=== PATIENT | female | born 1960 | race Caucasian/White ===

== ENCOUNTER → 2017-10-31 12:07 | Outpatient (CLI) | payer MEDICARE, SELFPAY | PROVIDERS: Family Provider Family Medicine; PCP Family Medicine; Visit Provider Family Medicine | DX: Z12.31 Encounter for screening mammogram for malignant neoplasm of breast (principal) | CPT/HCPCS: 77063; 77067 ==

== ENCOUNTER → 2018-08-20 | Outpatient (CLI) | payer OTHER, SELFPAY ==
[2018-08-20 16:47] LABS: Anion Gap 7 (5-15); BUN 15 mg/dL (7-18); BUN/Creat Ratio 19.4 RATIO (10-20); Calcium,Total 9.1 mg/dL (8.5-10.1); Chloride 103 mmol/L (98-107); Creatinine, Serum 0.77 mg/dL (0.55-1.02); EST Glomerular Filtration Rate 81 mL/min (>60); Est Glom Filt Rate - Afr Amer 98 mL/min (>60); Glucose 88 mg/dL (74-106); Magnesium 2.7 mg/dL (1.6-2.6); Sodium Level 141 mmol/L (136-145); Thyroid Stim Hormone (TSH) 1.13 uIU/mL (0.358-3.74)
[2018-08-27 16:39] LABS: HPV Reflexed? NOT INDICATED
== END | disposition home or self-care (01) ==
PROVIDERS: Family Provider Family Medicine; PCP Family Medicine; Referring Provider Family Medicine; Visit Provider Family Medicine
DX: R00.2 Palpitations (principal); Z12.4 Encounter for screening for malignant neoplasm of cervix
CPT/HCPCS: 36415; 80048; 83735; 84443; 88175; G0145

== ENCOUNTER → 2018-09-04 | Outpatient (CLI) | payer OTHER, SELFPAY ==
--- NOTE | 2018-09-04 15:08 | BD_ITS ---
STUDY: DUAL ENERGY X-RAY ABSORPTIOMETRY / DXA REASON FOR EXAM: Female, 58 years old. The patient is postmenopausal. Loss of height. TECHNIQUE: Bone Mineral Density (BMD) measurements of lumbar spine and bilateral hips were obtained. COMPARISON: None. FINDINGS: Lumbar Spine (L1-L4): g/cm2 (1.268) / T-score (0.8) / Z-score (2.0) Findings are suggestive of normal bone density with a low fracture risk. Left Femur Total: g/cm2 (0.938) / T-score (-0.6) / Z-score (0.3) Left Femoral Neck: g/cm2 (0.927) / T-score (-0.8) / Z-score (0.4) Right Femur Total: g/cm2 (0.937) / T-score (-0.6) / Z-score (0.3) Right Femoral Neck: g/cm2 (0.921) / T-score (-0.8) / Z-score (0.4) BD/Dexa Bone Density Study IMPRESSION: The patient is considered normal as outlined below according to World [employer] Organization (WHO) criteria with a low fracture risk. Reference Information: The T-score is the number of standard deviations above or below the standard which is normal for young adults at their peak bone mineral density. The World Health Organization (WHO) interprets the T-scores as follows: Above -1 Normal bone density Between -1 and -2.5 Osteopenia Equal to / or below -2.5 Osteoporosis As a practical clinical guideline, osteopenia may be graded as follows: Mild -1 through -1.5 Moderate -1.6 through -2.0 Severe -2.1 through -2.4 The Z-score is the number of standard deviations above or below age-matched controls. A Z-score of less than -1.5 would be considered abnormal. References: 1. NIH Osteoporosis and Related Bone Diseases http://www.osteo.org 2. International Society for Clinical Densitometry http://www.iscd.org 3. National Osteoporosis Foundation http://www.nof.org Electronically Signed: Michel Adler, at 9:28 EDT , Service support ,
== END | disposition home or self-care (01) ==
LOC: OPBD 15:04
PROVIDERS: Family Provider Family Medicine; PCP Family Medicine; Referring Provider Family Medicine; Visit Provider Family Medicine
DX: E28.319 Asymptomatic premature menopause (principal)
CPT/HCPCS: 77080

== ENCOUNTER → 2018-11-05 14:21 | Outpatient (CLI) | payer OTHER, SELFPAY ==
--- NOTE | 2018-11-05 14:26 | BI_ITS ---
MAMMOGRAPHY - BILATERAL SCREENING REASON FOR EXAM: Female, 58 years old. Routine annual screening examination. PERTINENT HISTORY: Personal history of breast cancer. Prior right lumpectomy with chemotherapy and radiation therapy. Bilateral breast implants. TECHNIQUE: Digital bilateral breast sandrine (3D mammographic acquisition) in the CC and MLO projections. 2-D mediolateral oblique (MLO) and craniocaudad (CC) views of both breasts were obtained. CAD: Full Field Digital Mammography with Computer Added Detection was performed. COMPARISON: Comparison is made with prior examination dated October 31, 2017 and September 26, 2016. FINDINGS: Breast Composition: There are scattered areas of fibroglandular density. There are no dominant masses or suspicious calcifications. Stable appearance of the bilateral breast implants. No other significant abnormalities are identified. There has been no significant change since the prior study. BI/SCREEN MAMM (CAD) W/SANDRINE BILAT IMPRESSION: Stable bilateral screening mammogram. Yearly follow-up mammogram recommended. (A) ASSESSMENT CATEGORY: BIRADS Category 2: Benign. A letter regarding these results will be sent to the patient by the facility within 30 days. Approximately 10% of breast cancers are not detected by mammography. A normal mammogram should not delay biopsy of a clinically suspicious abnormality. [id number] Electronically Signed: Michel Adler, at 15:27 EDT , Service support ,
== END ==
PROVIDERS: Family Provider Family Medicine; PCP Family Medicine; Referring Provider Family Medicine; Visit Provider Family Medicine
DX: Z12.31 Encounter for screening mammogram for malignant neoplasm of breast (principal)
CPT/HCPCS: 77063; 77067

== ENCOUNTER → 2019-04-02 16:33 | Outpatient (CLI) | payer OTHER, SELFPAY ==
[2019-04-02 17:29] LABS: Absolute Lymphocyte Count 0.97 X10^3/uL (0.83-4.51); Absolute Neutrophil Count 2.7 X10^3/uL (2.0-7.7); Basophil# 0.05 X10^3/uL; Basophil% 1.1 % (0-1); Eosinophil# 0.28 X10^3/uL; Eosinophils% 6.2 % (0-5); Hematocrit 40.8 % (37-47); Hemoglobin 13.5 g/dL (12.0-15.0); Lymphocyte # 0.97 X10^3/ul (4.0); Lymphocyte % 21.4 % (19-41); Mean Corp Hgb Conc 33.1 g/dL (32-36); Mean Corpuscular Hgb 29.7 pg (27.0-32.0); Mean Corpuscular Volume 89.9 fL (81-99); Mean Platelet Vol. 9.4 fl (6.2-12.0); Monocyte# 0.56 X10^3/uL; Monocyte% 12.3 % (0-10); NRBC Flagged by Analyzer 0 % (0-5); Neutrophil # 2.66 X10^3/uL (2.7-7.7); Neutrophil % 58.6 % (47-70); Platelet Count 266 K/mm3 (150-450); RBC Distribution Width CV 13.6 % (11.6-14.6); RBC Distribution Width SD 44.7 fl (35.1-43.9); Red Blood Count 4.54 M/mm3 (4.2-5.4); White Blood Count 4.5 K/mm3 (4.4-11.0)
[2019-04-02 18:04] LABS: ALB/GLOB Ratio 1.1 RATIO (0.9-2.4); AST(SGOT) 20 U/L (15-37); Alanine Aminotransfer ALT/SGPT 28 U/L (13-56); Albumin, Serum 3.8 g/dL (3.2-5.0); Alkaline Phosphatase 79 U/L (45-117); Anion Gap 4 (5-15); BUN 13 mg/dL (7-18); BUN/Creat Ratio 15.1 RATIO (10-20); CRP 3.29 mg/L (0.0-3.0); Chloride 104 mmol/L (98-107); Creatinine, Serum 0.86 mg/dL (0.55-1.02); EST Glomerular Filtration Rate 72 mL/min (>60); Est Glom Filt Rate - Afr Amer 87 mL/min (>60); Globulin 3.5 g/dL (2.2-4.2); Glucose 103 mg/dL (74-106); Potassium 3.8 mmol/L (3.5-5.1); Protein, Total 7.3 g/dL (6.4-8.2); Sodium Level 139 mmol/L (136-145); Thyroid Stim Hormone (TSH) 0.59 uIU/mL (0.358-3.74)
[2019-04-05 12:06] LABS: Complement C3 108 mg/dL (82-167)
[2019-04-07 10:35] LABS: ANTINUCLEAR ANTIBODIES DIRECT Negative (Negative)
[2019-04-07 10:49] LABS: Immunoglobulin E 27 IU/mL (6-495)
[2019-04-09 20:07] LABS: Alternaria alternata <0.10 kU/L (Class 0); Aspergillus fumigatus <0.10 kU/L (Class 0); Bahia Grass 0.41 kU/L (Class I); Bermuda Grass 0.24 kU/L (Class 0/I); Bluegrass, Kentucky 2.47 kU/L (Class III); Cat Hair/Dander, Standard 6.03 kU/L (Class IV); Cedar, Mountain <0.10 kU/L (Class 0); Cladosporium herbarum <0.10 kU/L (Class 0); Cockroach, American <0.10 kU/L (Class 0); D farinae Mite 0.77 kU/L (Class II); Dog Epithelia 0.23 kU/L (Class 0/I); Elm, American White <0.10 kU/L (Class 0); Hazelnut Tree <0.10 kU/L (Class 0); Hickory, White <0.10 kU/L (Class 0); Johnson Grass 0.22 kU/L (Class 0/I); Maple/Box Elder <0.10 kU/L (Class 0); Mucor racemosus <0.10 kU/L (Class 0); Mugwort <0.10 kU/L (Class 0); Mulberry, White <0.10 kU/L (Class 0); Oak, White <0.10 kU/L (Class 0); Penicillium chrysogen <0.10 kU/L (Class 0); Pigweed, Rough <0.10 kU/L (Class 0); Plantain, English <0.10 kU/L (Class 0); Ragweed, Short/Common <0.10 kU/L (Class 0); Sheep Sorrel(Dock) <0.10 kU/L (Class 0); Stemphylium herbarum <0.10 kU/L (Class 0); Sweet Gum <0.10 kU/L (Class 0); Sycamore, American <0.10 kU/L (Class 0)
[2019-04-10 09:40] LABS: Nettle <0.10 kU/L (Class 0)
== END ==
PROVIDERS: Family Provider Family Medicine; PCP Family Medicine; Referring Provider Family Medicine; Visit Provider Family Medicine
DX: R21 Rash and other nonspecific skin eruption (principal)
CPT/HCPCS: 36415; 80053; 82785; 84443; 85025; 86003; 86038; 86140; 86160

== ENCOUNTER → 2019-04-06 17:37 | Outpatient (CLI) | payer OTHER, SELFPAY ==
[2019-04-08 20:56] LABS: HPV Reflexed? NOT INDICATED
== END ==
PROVIDERS: Family Provider Family Medicine; PCP Family Medicine; Visit Provider Family Medicine
DX: N93.9 Abnormal uterine and vaginal bleeding, unspecified (principal)
CPT/HCPCS: 88175; G0145

== ENCOUNTER → 2019-04-15 13:43 | Outpatient (CLI) | payer OTHER, SELFPAY ==
--- NOTE | 2019-04-15 13:54 | US_ITS ---
STUDY: ULTRASOUND TRANSVAGINAL CLINICAL: Female, 58 years old. POST MENOPAUSAL BLEEDING TWICE IN FEBRUARY -- ON ESTROGEN CREAN -- HX OF BREAST CA TECHNIQUE: Transvaginal COMPARISON: None. FINDINGS: Normal uterine size measuring 6.8 x 3.1 x 3.8 cm in maximal craniocaudal dimension. There are no myometrial masses. Normal endometrial thickness measuring 9 mm. There are no endometrial masses, but there is fluid in the endometrial cavity. The cervix is open and fluid-filled. Normal right ovary, measuring 2.4 x 1.7 x 1.7 cm. There are multiple follicles without a dominant cyst. Normal left ovary, measuring 2.0 x 2.4 x 1.4 cm. There are multiple follicles without a dominant cyst. There is no free fluid in the pelvis. Polycystic ovary disease: No. US/Pelvic (Non ) IMPRESSION: Fluid-filled endometrial cavity and endocervical canal. Correlation with hysteroscopy would be useful to exclude endometrial mass. Electronically Signed: Harman Brady MD at 9:09 EST Tel , Service support ,
--- NOTE | 2019-04-15 13:55 | US_ITS ---
STUDY: ULTRASOUND TRANSVAGINAL CLINICAL: Female, 58 years old. POST MENOPAUSAL BLEEDING TWICE IN FEBRUARY -- ON ESTROGEN CREAN -- HX OF BREAST CA TECHNIQUE: Transvaginal COMPARISON: None. FINDINGS: Normal uterine size measuring 6.8 x 3.1 x 3.8 cm in maximal craniocaudal dimension. There are no myometrial masses. Normal endometrial thickness measuring 9 mm. There are no endometrial masses, but there is fluid in the endometrial cavity. The cervix is open and fluid-filled. Normal right ovary, measuring 2.4 x 1.7 x 1.7 cm. There are multiple follicles without a dominant cyst. Normal left ovary, measuring 2.0 x 2.4 x 1.4 cm. There are multiple follicles without a dominant cyst. There is no free fluid in the pelvis. Polycystic ovary disease: No. US/Transvaginal Non- IMPRESSION: Fluid-filled endometrial cavity and endocervical canal. Correlation with hysteroscopy would be useful to exclude endometrial mass. Electronically Signed: Harman Brady MD at 9:09 EST Tel , Service support ,
== END ==
PROVIDERS: Family Provider Family Medicine; PCP Family Medicine; Referring Provider Family Medicine; Visit Provider Family Medicine
DX: N93.9 Abnormal uterine and vaginal bleeding, unspecified (principal)
CPT/HCPCS: 76830; 76856

== ENCOUNTER → 2019-11-04 | Outpatient (CLI) | payer OTHER, SELFPAY ==
[2019-11-04 15:28] LABS: Absolute Lymphocyte Count 1.24 X10^3/uL (0.83-4.51); Absolute Neutrophil Count 4.3 X10^3/uL (2.0-7.7); Basophil# 0.02 X10^3/uL; Basophil% 0.3 % (0-1); Eosinophil# 0.04 X10^3/uL; Eosinophils% 0.6 % (0-5); Hemoglobin 12.7 g/dL (12.0-15.0); Lymphocyte # 1.24 X10^3/ul (4.0); Lymphocyte % 19.3 % (19-41); Mean Corp Hgb Conc 32.6 g/dL (32-36); Mean Corpuscular Hgb 29.4 pg (27.0-32.0); Mean Corpuscular Volume 90.3 fL (81-99); Mean Platelet Vol. 9.9 fl (6.2-12.0); Monocyte# 0.84 X10^3/uL; Monocyte% 13.1 % (0-10); NRBC Flagged by Analyzer 0 % (0-5); Neutrophil # 4.27 X10^3/uL (2.7-7.7); Neutrophil % 66.4 % (47-70); Platelet Count 292 K/mm3 (150-450); RBC Distribution Width SD 43.2 fl (35.1-43.9); Red Blood Count 4.32 M/mm3 (4.2-5.4); White Blood Count 6.4 K/mm3 (4.4-11.0)
[2019-11-04 15:47] LABS: ALB/GLOB Ratio 1.1 RATIO (0.9-2.4); AST(SGOT) 13 U/L (15-37); Alanine Aminotransfer ALT/SGPT 20 U/L (13-56); Albumin, Serum 3.9 g/dL (3.2-5.0); Alkaline Phosphatase 67 U/L (45-117); Anion Gap 6 (5-15); BUN 12 mg/dL (7-18); Chloride 102 mmol/L (98-107); Creatinine, Serum 0.75 mg/dL (0.55-1.02); EST Glomerular Filtration Rate 84 mL/min (>60); Est Glom Filt Rate - Afr Amer 102 mL/min (>60); Globulin 3.4 g/dL (2.2-4.2); Glucose 82 mg/dL (74-106); Lipase 241 U/L (73-393); Potassium 3.8 mmol/L (3.5-5.1); Protein, Total 7.3 g/dL (6.4-8.2); Sodium Level 139 mmol/L (136-145)
== END | disposition home or self-care (01) ==
PROVIDERS: PCP Family Medicine; Referring Provider Family Medicine; Visit Provider Family Medicine
DX: R19.7 Diarrhea, unspecified (principal)
CPT/HCPCS: 36415; 80053; 83690; 85025

== ENCOUNTER → 2019-11-05 | Outpatient (CLI) | payer OTHER, SELFPAY ==
[2019-11-12 20:32] LABS: Fats, Neutral Normal (.); Fats, Total Normal (.)
== END | disposition home or self-care (01) ==
PROVIDERS: PCP Family Medicine; Referring Provider Family Medicine; Visit Provider Family Medicine
DX: R19.7 Diarrhea, unspecified (principal)
CPT/HCPCS: 82705

== ENCOUNTER → 2019-11-17 | Outpatient (CLI) | payer OTHER, SELFPAY ==
--- NOTE | 2019-11-17 07:49 | US_ITS ---
STUDY: ABDOMINAL ULTRASOUND - RIGHT UPPER QUADRANT REASON FOR VISIT: Female, 59 years old RUQ PAIN -- LOOSE STOOLS TECHNIQUE: Ultrasound evaluation of the right upper quadrant was performed with real-time and static medina-scale imaging. TECHNICAL QUALITY: Adequate. COMPARISON: None. FINDINGS: Liver: The liver measures 10.6 cm. There is normal echogenicity of the liver. The bile ducts are within normal limits. There is hepatic color flow. The direction of portal flow is hepatopetal. There is no demonstrated mass lesion. Gallbladder: Normal distended gallbladder. The gallbladder wall is slightly thickened measures 3.5 mm. There is a negative sonographic Callahan''s sign. There is no pericholecystic fluid. There are no gallstones. Multiple small gallbladder polyps are seen. The largest measures 5 mm. Adenomyomatosis should be ruled out. Common Bile Duct (C.B.D.): The common bile duct measures 1.9 mm. Pancreas: Normal size of the head, body and tail of the pancreas. There is normal echogenicity of the pancreas. There is no demonstrated pancreatic mass or cyst. Right Kidney: Normal size of the right kidney. The right kidney measures 10.1 cm x 5 cm x 3.9 cm. Normal renal cortex. The right cortex measures 1.3 cm. There is no demonstrated renal mass or cyst. There is no right hydronephrosis. US/Abdomen Limited IMPRESSION: Multiple small gallbladder polyps. Mildly thickened gallbladder wall. Electronically Signed: Michel Adler, at 8:33 EDT , Service support ,
== END | disposition home or self-care (01) ==
PROVIDERS: PCP Family Medicine; Referring Provider Family Medicine; Visit Provider Family Medicine
DX: R10.811 Right upper quadrant abdominal tenderness (principal)
CPT/HCPCS: 76705

== ENCOUNTER → 2019-11-20 | Outpatient (CLI) | payer OTHER, SELFPAY ==
--- NOTE | 2019-11-20 14:50 | BI_ITS ---
MAMMOGRAPHY - BILATERAL SCREENING REASON FOR EXAM: Female, 59 years old. Routine annual screening examination. PERTINENT HISTORY: Personal history of breast cancer. Prior right lumpectomy with chemotherapy and radiation therapy. Bilateral breast implants. TECHNIQUE: Digital bilateral breast sandrine (3D mammographic acquisition) in the CC and MLO projections. 2-D mediolateral oblique (MLO) and craniocaudad (CC) views of both breasts were obtained. CAD: Full Field Digital Mammography with Computer Added Detection was performed. COMPARISON: Comparison is made with prior examination dated 11/05/2018 and 10/31/2017. FINDINGS: Breast Composition: There are scattered areas of fibroglandular density. There are no dominant masses or suspicious calcifications. Stable appearance of the bilateral breast implants. No other significant abnormalities are identified. There has been no significant change since the prior study. BI/SCREEN MAMM (CAD) W/SANDRINE BILAT IMPRESSION: Stable bilateral screening mammogram. Yearly follow-up mammogram recommended. (A) ASSESSMENT CATEGORY: BIRADS Category 2: Benign. A letter regarding these results will be sent to the patient by the facility within 30 days. Approximately 10% of breast cancers are not detected by mammography. A normal mammogram should not delay biopsy of a clinically suspicious abnormality. [id number] Electronically Signed: Michel Adler, at 8:08 EDT , Service support ,
== END | disposition home or self-care (01) ==
LOC: OPBI 14:29
PROVIDERS: PCP Family Medicine; Referring Provider Family Medicine; Visit Provider Family Medicine
DX: Z12.31 Encounter for screening mammogram for malignant neoplasm of breast (principal)
CPT/HCPCS: 77063; 77067

== ENCOUNTER 2019-11-27 00:57 | Observation (INO) | payer OTHER, SELFPAY ==
[2019-11-26 13:34] VITALS: BMI 19.7
[2019-11-27] VITALS (15 sets, daily range): BP systolic 91–111; BP diastolic 40–71; PULSE 71–91; RESP 15–19; TEMP 36.6–37.4; O2SAT 96–99; BMI 22.1; BMI 20.1
--- NOTE | 2019-11-27 01:05 | CT_ITS ---
HISTORY: ABDOMEN PAIN,DIARRHEA AND NAUSEAHX:BREAST CANCER WITH LUMPECTOMY,GERD,GALLBLADDER POLYPS SEEN ON US,TUBAL LIGATION TECHNIQUE: Helically acquired images were obtained of the abdomen and pelvis following the intravenous administration of 100 ML of Isovue-370. Iodinated contrast. 2D reformats. No oral contrast was administered. A radiation dose optimization technique was used for this scan. COMPARISON: Ultrasound of the abdomen from November 17, 2019 FINDINGS: # of images incl. paperwork: 359 LUNG BASES: Breast prostheses. Lung bases are clear. The heart is not enlarged. CT abdomen: Levoscoliosis. Some degenerative disc disease greatest at the L2-L3, and L3-L4 levels. Some fusion across the L5-S1 level. The gallbladder remains. Enhancing polyps on the wall of the gallbladder, also seen on the ultrasound are again demonstrated. The liver is normal The stomach is distended with liquid and gas. The spleen, pancreas, and adrenal glands, are normal. The kidneys are normal. The aorta is normal. CT pelvis: Small volume of abdominal and pelvic ascites is present. The appendix is not identified. The uterus is atrophic. Tubal ligation clips are present bilaterally. The bladder is normal. Abnormal liquid and some gas is present within the rectum and sigmoid colon. There are 2 areas of focal stenosis within the luminal contour of the sigmoid colon one directly adjacent to the left tubal ligation clips, and the other at the junction between the descending colon and the sigmoid colon. I believe these are normal contractions within the colon, and not neoplasia. The fluid continues throughout the lumen of the colon without bowel wall thickening or pathological distention to the colon. There is, however, bowel wall thickening throughout the entire small bowel beginning within the jejunum and continuing to the terminal ileum CT/Abdomen/Pelvis WITH Contrast IMPRESSION: Severe enteritis with a diarrheal state. Individualized dose optimization techniques were used for this CT. at 0406 Reported and signed by: Ethan Townsend MD Electronically Signed: Ethan Townsend MD at 4:05 EDT Tel , Service support ,
--- NOTE | 2019-11-27 01:05 | EKG12_ITS ---
Test Reason : ABD PAIN Blood Pressure : / mmHG Vent. Rate : 088 BPM Atrial Rate : 088 BPM P-R Int : 152 ms QRS Dur : 080 ms QT Int : 378 ms P-R-T Axes : 083 081 074 degrees QTc Int : 457 ms Normal sinus rhythm Possible Biatrial enlargement Nonspecific ST abnormality Abnormal ECG Confirmed by TAMY ANAND, HELLEN ([id number]), film and video editor TAVO PEREZ ([id number]) on 12/02/2019 10:18:44 AM Referred By: Confirmed By:HELLEN MORELOS MD
[2019-11-27 01:26] LABS: Absolute Neutrophil Count 2.8 X10^3/uL (2.0-7.7); Basophil# 0.01 X10^3/uL; Basophil% 0.2 % (0-1); Eosinophil# 0.19 X10^3/uL; Eosinophils% 3.8 % (0-5); Hematocrit 50.2 % (37-47); Hemoglobin 16.9 g/dL (12.0-15.0); Lymphocyte % 37.6 % (19-41); Mean Corp Hgb Conc 33.7 g/dL (32-36); Mean Corpuscular Hgb 29.4 pg (27.0-32.0); Mean Corpuscular Volume 87.3 fL (81-99); Mean Platelet Vol. 9.2 fl (6.2-12.0); Monocyte# 0.17 X10^3/uL; Monocyte% 3.4 % (0-10); NRBC Flagged by Analyzer 0 % (0-5); Neutrophil # 2.76 X10^3/uL (2.7-7.7); Neutrophil % 54.6 % (47-70); Platelet Count 254 K/mm3 (150-450); RBC Distribution Width CV 13.1 % (11.6-14.6); RBC Distribution Width SD 41.5 fl (35.1-43.9); Red Blood Count 5.75 M/mm3 (4.2-5.4); White Blood Count 5.1 K/mm3 (4.4-11.0)
[2019-11-27] MEDS: 0.9% Normal Saline 1,000 ML 1000 ML IV (01:44)
[2019-11-27] MEDS: Ondansetron 4 MG/2 ML Vial IV (01:44)
[2019-11-27 01:45] LABS: ALB/GLOB Ratio 1.1 RATIO (0.9-2.4); AST(SGOT) 19 U/L (15-37); Alanine Aminotransfer ALT/SGPT 16 U/L (13-56); Albumin, Serum 3.4 g/dL (3.2-5.0); Alkaline Phosphatase 86 U/L (45-117); Anion Gap 8 (5-15); BUN 14 mg/dL (7-18); BUN/Creat Ratio 18.2 RATIO (10-20); Calcium,Total 8.8 mg/dL (8.5-10.1); Chloride 111 mmol/L (98-107); Creatinine, Serum 0.77 mg/dL (0.55-1.02); EST Glomerular Filtration Rate 81 mL/min (>60); Est Glom Filt Rate - Afr Amer 98 mL/min (>60); Estimated Creatinine Clearance 64.27 ml/min; Globulin 3.1 g/dL (2.2-4.2); Glucose 159 mg/dL (74-106); Protein, Total 6.5 g/dL (6.4-8.2); Sodium Level 141 mmol/L (136-145)
[2019-11-27 01:51] LABS: Lactic Acid 1.5 mmol/L (0.4-1.9)
--- NOTE | 2019-11-27 01:52 | ED.DCSUM_ITS ---
- ER Visit Summary Date of Service: 11/27/19 Chief Complaint: Abdominal pain History of Present Illness: The patient is a 59 F presenting with abdominal pain and diarrhea. Patient states this started 1 week ago. She complains of diffuse abdominal pain. She has had diarrhea. States she is having diarrhea up to 12 times per day. She denies blood in her stool. She has nausea with no vomiting. She saw her primary care physician and had an outpatient gallbladder ultrasound ordered. This showed gallbladder polyps. She followed up with Dr. Mccann today. She states he told her that he did not feel it was her gallbladder and she may have colitis or diverticulitis. She states she continued to have diarrhea throughout the day. Tonight she passed out while on the toilet. She denies any recent antibiotic. No recent travel. No history of bad food exposure. Denies other complaints. Physical Examination: Vitals are stable. Patient is afebrile. Alert no acute distress. HEENT exam is unremarkable. Neck is supple. Lungs are clear and equal bilaterally. Heart is regular rate and rhythm. Abdomen is soft diffuse tenderness with no guarding or rebound. Extremities are unremarkable. Skin is warm and dry. No focal neurologic deficit. Remainder of exam is unremarkable. Emergency Department Course and Treatment: Patient was given IV fluids, Zofran. CBC, chemistries unremarkable other than potassium 3.0, glucose 159. Urinalysis unremarkable. Troponin is negative. Lactic acid is normal. C. difficile negative. CT abdomen pelvis with contrast shows severe enteritis with a diarrheal state. Due to syncopal episode and continued diarrhea, concern for dehydration. Discussed with the hospitalist for observation. Disposition: Observation Impression: Enteritis, diarrhea, syncope This note was generated with [employer]ieve dictation software. It may contain incorrect words, spelling, and punctuation that were not noted in review of the chart prior to signing ED Disposition - Plan for ED Patient: Disposition: [facility]
[2019-11-27 03:57] LABS: Bacteria 0 SEEN /hpf (None Seen); Color, Urine Yellow (Yellow); Glucose, Dipstick Normal (Normal); Ketone-Dipstick 15 mg/dl (Negative); Leukocyte Esterase-Dipstick Negative /ul (Negative); Mucous, Urine 0 SEEN /hpf (<or=2+); Nitrite-Dipstick Negative (Negative); Occult Blood-Urine Negative /ul (Negative); Protein-Dipstick Negative (Negative); Squamous Epithelial Cells - UA 0 SEEN /hpf (5-10); Urine Bilirubin Dipstick Negative (Negative); Urine Clarity Clear (Clear); Urine Urobilinogen Normal (Normal); White Blood Cells 0 SEEN /hpf (0-5)
[2019-11-27 04:03] LABS: Red Blood Cells-Urine 0-5 SEEN /hpf (0-5)
--- NOTE | 2019-11-27 04:24 | PCM.HP.STD ---
Problem List (1) Gastroenteritis Status: Acute (2) Contact dermatitis and eczema due to plant Status: Inactive History of Present Illness Date of Admission: 11/27/19 Chief Complaint: Nausea and vomiting The patient is a 59 year old F with a significant history of breast cancer who presents emergency department with nausea and vomiting that started few hours before presentation. Associated with her symptoms is abdominal pain and diarrhea that has been going on for about 2 months. For each day her bowels moved about 10-15 times. During the course of the 2 months her abdominal pain is more prominent at her lower abdomen but on his presentation her abdominal pain is more prominent at the epigastric region. Outpatient gallbladder ultrasound showed polyps. For her diarrhea and abdominal pain patient was referred to Dr. Mccann. Patient saw Dr. Yo on the same day of presentation. Per patient an outpatient CT scan of the abdomen and pelvis was planned. On this presentation abdomen and pelvis CT showed severe enteritis with a diarrheal state. Past Medical History Medical History: Medical History (Last Reviewed 11/27/19 @ 08:[address] Diaz Hernandez MD) Anxiety F41.9 Arthritis M19.90 Breast cancer C50.919 Diarrhea R19.7 GERD (gastroesophageal reflux disease) K21.9 Gallbladder polyp K82.4 Allergies sulfamethoxazole [From Bactrim] Allergy (Unknown, Verified 11/27/19 01:04) Unknown trimethoprim [From Bactrim] Allergy (Unknown, Verified 11/27/19 01:04) Unknown Home Medications: Ambulatory Orders Medication Instructions Recorded paroxetine HCl 30 mg tablet 30 mg PO DAILY 11/03/19 omeprazole 40 mg capsule,delayed 40 mg PO DAILY #30 cap 11/26/19 release sucralfate 1 gram tablet 1 g PO QACHS #120 tab 11/26/19 lipase/protease/amylase [Teri WRIGHT 1 cap PO TID 11/27/19 12,000 Unit Capsule] Surgical History: Surgical History (Last Reviewed 11/27/19 @ 08:[address] Diaz Hernandez MD) History of breast augmentation Onset Date: ~2006 Z98.82 History of colonoscopy Onset Date: ~2014 Z98.890 History of lumpectomy Z98.890 History of tubal ligation Onset Date: ~1992 Z98.51 Smoking Status: Never smoker - *Family History Paternal Family History: Family History (Last Reviewed 11/27/19 @ 08:[address] Diaz Hernandez MD) Grandfather Diabetes Review of Systems Constitutional: Denies: Chills, Fever, Weight Change HEENT: Denies: Head Aches, Sinus Congestion, Sinus Drainage Cardiovascular: Denies: Chest Pain, Palpitations Respiratory: Denies: Cough, Shortness of breath at rest, Sputum production Gastrointestinal: Reports: Abdominal Pain, Nausea, Vomiting Genitourinary: Denies: Dysuria Musculoskeletal: Denies: Joint Pain, Joint Tenderness Skin: Denies: Rash, Wounds Neurological: Denies: Numbness, Tingling, Focal weakness Psychiatric: Denies: Anxiety, Depression, Homicidal Ideations, Suicidal Ideations Hematologic/ Lymphatic: Denies: Easy Bruising, Easy Bleeding VTE Information - Inpt Only VTE Present on Admission: No VTE Mechan Device Prophylaxis: None VTE Pharm Prophylaxis ordered?: Yes Patient Problems: Active and Suspected Problems (Last Reviewed 11/27/19 @ 08:[address] Diaz Hernandez MD) Gastroenteritis (Acute) - Physical Exam Vitals/I&O's: Vital Signs Temp Pulse Resp BP Pulse Ox 97.8 F 78 19 H 111/58 L 98 11/27/19 00:59 11/27/19 03:56 11/27/19 03:56 11/27/19 03:56 11/27/19 03:56 Oxygen Delivery Method Room Air Weight: 56.7 kg Body Mass Index (BMI) 22.1 Intake and Output for Last 24 Hours 11/25/19 11/26/19 11/27/19 23:59 23:59 23:59 Intake Total 1000 / 1000 Balance 1000 / 1000 General: Alert, Oriented x3, Cooperative HEENT: Atraumatic, PERRLA, EOMI, Normocephalic Neck: Supple, No JVD, Negative Carotid Bruits Lungs: Clear to auscultation, Normal air movement Cardiovascular: Regular rate, Normal S1, Normal S2, No murmurs Abdomen: Bowel Sounds Present, Soft, Non Tender Extremities: No edema, Capillary Refill Less than 3 Seconds Skin: No rashes, No breakdown Musculoskeletal: No Tenderness to Palpation of Joints or Extremities Neurological: Cranial nerves II-XII grossly intact Psych/Mental Status: Normal Affect, Appropriate Microbiology Past 72 Hours 11/27/19 01:55 Stool C. difficile DNA Amplification - Final Laboratory Results 11/27/19 01:20: WBC 5.1, RBC 5.75 H, Hgb 16.9 H, Hct 50.2 H, MCV 87.3, MCH 29.4, MCHC 33.7, RDW Std Deviation 41.5, RDW Coeff of Johnny 13.1, Plt Count 254, MPV 9.2, Immature Gran % (Auto) 0.400, Neut % (Auto) 54.6, Lymph % (Auto) 37.6, [place] % (Auto) 3.4, Eos % (Auto) 3.8, Baso % (Auto) 0.2, Absolute Neuts (auto) 2.8, Absolute Lymphs (auto) 1.90, Nucleated RBC % 0 11/27/19 01:20: Sodium 141, Potassium 3.0 L, Chloride 111 H, Carbon Dioxide 22.0, Anion Gap 8, BUN 14, Creatinine 0.77, Estim Creat Clear Calc 64.27, Est GFR (MDRD) Af Amer 98, Est GFR (MDRD) Non-Af 81, BUN/Creatinine Ratio 18.2, Glucose 159 H, Calcium 8.8, Total Bilirubin 0.40, AST 19, ALT 16, Alkaline Phosphatase 86, Troponin I < 0.015, Total Protein 6.5, Albumin 3.4, Globulin 3.1, Albumin/Globulin Ratio 1.1 11/27/19 01:20: Lactic Acid 1.5 11/27/19 03:50: Urine Color Yellow, Urine Clarity Clear, Urine pH 5.0, Ur Specific [place] 1.010, Urine Protein Negative, Urine Glucose (UA) Normal, Urine Ketones 15 H, Urine Occult Blood Negative, Urine Nitrite Negative, Urine Bilirubin Negative, Urine Urobilinogen Normal, Ur Leukocyte Esterase Negative, Urine RBC 0-5 SEEN, Urine WBC 0 SEEN, Ur Squamous Epith Cells 0 SEEN, Urine Bacteria 0 SEEN, Urine Mucus 0 SEEN Assessment/Plan All Active Problems (Last Reviewed 11/27/19 @ 08:[address] Diaz Hernandez MD) Gastroenteritis (Acute) The patient is a 59 year old F with a significant history of breast cancer who presents at the emergency department with nausea and vomiting and referred to month history of abdominal pain and diarrhea. Acute Gastroenteritis Patient reports stool studies ordered outpatient. However stool studies including C. difficile and enteric bacteriology was ordered at the ED. C. difficile and enteric bacteriology returned negative. Received normal saline bolus in the emergency department. Normal saline with 40 mEq potassium ordered at 100 MS per hour Diet: Although patient could not tolerate a p.o. contrast for CT patient is shown that she can tolerate p.o. diet. Will put patient on a trial of p.o. diet. Zofran IV PRN for nausea or vomiting. Per patient EGD/colonoscopy is being considered by general surgery in the outpatient setting. Hypokalemia Her potassium on presentation was 2.9 Received potassium IV replacement emergency department Normal saline potassium as above. Trend BMP Magnesium level is normal. DVT prophylaxis Subcutaneous Lovenox. Inpatient E&M: 23392 Init Hosp L3
[2019-11-27] MEDS: Potassium Chloride 10mEq/100mL 10 MEQ/100 ML IV.SOLN. 100 MEQ IV BOLUS ×4 (04:55→08:11)
[2019-11-27 05:36] LABS: Anion Gap 9 (5-15); BUN 14 mg/dL (7-18); BUN/Creat Ratio 17.8 RATIO (10-20); Calcium,Total 8.8 mg/dL (8.5-10.1); Chloride 108 mmol/L (98-107); Creatinine, Serum 0.79 mg/dL (0.55-1.02); EST Glomerular Filtration Rate 79 mL/min (>60); Est Glom Filt Rate - Afr Amer 96 mL/min (>60); Estimated Creatinine Clearance 65.51 ml/min; Glucose 153 mg/dL (74-106); Potassium 2.9 mmol/L (3.5-5.1); Sodium Level 139 mmol/L (136-145)
[2019-11-27] MEDS: Potassium Chloride 40 MEQ in 0.45% Normal Saline 1,000 ML 100 MEQ IV ×2 (05:57→18:37)
[2019-11-27] MEDS: Sucralfate 1 GM Tablet PO ×4 (06:59→21:05)
--- NOTE | 2019-11-27 10:20 | CASEMGMT ---
RN BALDEMAR Face to Face with patient for initial transition planning/care coordination assessment. RN CM introduced self and role at [facility]. Patient lying in bed, alert and oriented. Patient willing to participate in assessment and is able to answer all questions appropriately. Care providers, pharmacy, and demographics verified. Patient wishes to discharge home, denies need for home health at this time. Patient states he has no further needs or concerns at this time. CM to follow for discharge planning needs that may arise. PCP: [facility] Specialists: surgeon Ramy Preferred Pharmacy: [facility] Insurance: [employer] Prescription Benefit: yes Living Will/HPOA: yes, [place] LNOK: Living Arrangements: Patient lives in a 2 story. Patient is independent and able to ambulate stairs. Transportation: self, DME/HHC: Patient denies previous HHC or DME Disposition Plan: Patient to discharge home with family support and follow-up plans in place. Lisa DYKSE, RN, CM
[2019-11-27] MEDS: Pantoprazole Sodium 40 MG Tablet PO (10:42)
[2019-11-27] MEDS: Enoxaparin 40 MG/0.4 ML Syringe SC (10:43)
[2019-11-27] MEDS: PARoxetine 10 MG Tablet 30 MG PO (10:43)
--- NOTE | 2019-11-27 11:49 | PCM.PN.HOSP ---
Patient Problems: Active and Suspected Problems (Last Reviewed 11/27/19 @ 08:[address] Diaz Hernandez MD) Gastroenteritis (Acute) Reason for Visit: Follow-up on acute gastroenteritis/hypokalemia Subjective: Patient was seen and examined. Says she feels much better. Denied any fever or chills. No diarrhea since since admission. Objective: Physical exam: General: Alert, Oriented x3, Cooperative HEENT: Atraumatic, PERRLA, EOMI, Normocephalic Neck: Supple, No JVD, Negative Carotid Bruits Lungs: Clear to auscultation, Normal air movement Cardiovascular: Regular rate, Normal S1, Normal S2, No murmurs Abdomen: Bowel Sounds Present, Soft, Non Tender Extremities: No edema, Capillary Refill Less than 3 Seconds Skin: No rashes, No breakdown Musculoskeletal: No Tenderness to Palpation of Joints or Extremities Neurological: Cranial nerves II-XII grossly intact Psych/Mental Status: Normal Affect, Appropriate Vitals/I&O's: Vital Signs Temp Pulse Resp BP Pulse Ox 99.3 F H 88 18 106/60 99 11/27/19 07:26 11/27/19 09:24 11/27/19 07:26 11/27/19 07:26 11/27/19 07:26 Oxygen Delivery Method Room Air Weight: 54.8 kg Body Mass Index (BMI) 20.0 Intake and Output for Last 24 Hours 11/25/19 11/26/19 11/27/19 23:59 23:59 23:59 Intake Total 1876.66 / 1876.66 Balance 1876.66 / 1876.66 Microbiology Past 72 Hours 11/27/19 01:55 Stool Enteric Bacteriology - Final 11/27/19 01:55 Stool C. difficile DNA Amplification - Final Laboratory Results 11/27/19 01:20: WBC 5.1, RBC 5.75 H, Hgb 16.9 H, Hct 50.2 H, MCV 87.3, MCH 29.4, MCHC 33.7, RDW Std Deviation 41.5, RDW Coeff of Johnny 13.1, Plt Count 254, MPV 9.2, Immature Gran % (Auto) 0.400, Neut % (Auto) 54.6, Lymph % (Auto) 37.6, [place] % (Auto) 3.4, Eos % (Auto) 3.8, Baso % (Auto) 0.2, Absolute Neuts (auto) 2.8, Absolute Lymphs (auto) 1.90, Nucleated RBC % 0 11/27/19 01:20: Sodium 141, Potassium 3.0 L, Chloride 111 H, Carbon Dioxide 22.0, Anion Gap 8, BUN 14, Creatinine 0.77, Estim Creat Clear Calc 64.27, Est GFR (MDRD) Af Amer 98, Est GFR (MDRD) Non-Af 81, BUN/Creatinine Ratio 18.2, Glucose 159 H, Calcium 8.8, Total Bilirubin 0.40, AST 19, ALT 16, Alkaline Phosphatase 86, Troponin I < 0.015, Total Protein 6.5, Albumin 3.4, Globulin 3.1, Albumin/Globulin Ratio 1.1 11/27/19 01:20: Lactic Acid 1.5 11/27/19 01:20: Sodium 139, Potassium 2.9 L, Chloride 108 H, Carbon Dioxide 22.0, Anion Gap 9, BUN 14, Creatinine 0.79, Estim Creat Clear Calc 65.51, Est GFR (MDRD) Af Amer 96, Est GFR (MDRD) Non-Af 79, BUN/Creatinine Ratio 17.8, Glucose 153 H, Calcium 8.8, Magnesium 2.0 11/27/19 03:50: Urine Color Yellow, Urine Clarity Clear, Urine pH 5.0, Ur Specific [place] 1.010, Urine Protein Negative, Urine Glucose (UA) Normal, Urine Ketones 15 H, Urine Occult Blood Negative, Urine Nitrite Negative, Urine Bilirubin Negative, Urine Urobilinogen Normal, Ur Leukocyte Esterase Negative, Urine RBC 0-5 SEEN, Urine WBC 0 SEEN, Ur Squamous Epith Cells 0 SEEN, Urine Bacteria 0 SEEN, Urine Mucus 0 SEEN Current Medications Acetaminophen (Tylenol) 650 mg PO Q6H PRN PRN PRN Reason: Pain Score 1-10/Temp > 100.7 F Enoxaparin Sodium (Lovenox) 40 mg SC DAILY [facility] Last Admin: 11/27/19 10:43 Dose: 40 mg Documented by: Potassium Chloride 40 meq/ (Sodium Chloride) 1,020 mls @ 100 mls/hr IV .[id number] [facility] Last Infusion: 11/27/19 10:43 Dose: 100 mls/hr Documented by: Sodium Chloride () 250 mls @ 15 mls/hr IV .[id number] PRN PRN Reason: Saline Flush Sodium Chloride () 250 mls @ 15 mls/hr IV .[id number] PRN PRN Reason: Additional IVPB Infusion Melatonin (Melatonin) 3 mg PO QHS PRN PRN PRN Reason: INSOMNIA Ondansetron HCl (Zofran) 4 mg IV Q8H PRN PRN PRN Reason: NAUSEA/VOMITING Pancrelipase (Creon Dr 12,000 Unit Capsule) 1 capsule PO TIDCM [facility] Last Admin: 11/27/19 10:42 Dose: 1 capsule Documented by: Pantoprazole Sodium (Protonix) 40 mg PO DAILY [facility] Last Admin: 11/27/19 10:42 Dose: 40 mg Documented by: Paroxetine HCl (Paxil) 30 mg PO DAILY [facility] Last Admin: 11/27/19 10:43 Dose: 30 mg Documented by: Sodium Chloride () 10 - 40 ml IV UD PRN PRN Reason: SALINE FLUSH Sucralfate (Carafate) 1 gm PO 1HR_ACHS [facility] Last Admin: 11/27/19 10:43 Dose: 1 gm Documented by: STROKE Vital Signs/Narrative: Vital Signs Pulse 11/27/19 09:24 88 Medical Necessity - Tobacco Use Smoking Status: Never smoker Tobacco Use: Cigarettes Assessment/Plan All Active Problems (Last Reviewed 11/27/19 @ 08:[address] Diaz Hernandez MD) Gastroenteritis (Acute) 1. Acute enteritis, seen on CT of the abdomen and pelvis, Stool for C. diff and enteric panel negative. We will continue with IV fluid hydration, would start on IV Cipro and Flagyl 2. Hypokalemia secondary to #1, place, recheck on 4pm 3. DVT PPx- Lovenox Sc Inpatient E&M: 95073 Subs Hosp L2
[2019-11-27] MEDS: metroNIDAZOLE 500 MG/100 ML BAG 100 MG IV ×2 (13:00→22:16)
--- NOTE | 2019-11-27 13:00 | NURSING ---
pharmacy called awaiting on creon
[2019-11-27] MEDS: Ciprofloxacin 400 MG/200 ML BAG 200 MG IV ×2 (14:24→21:07)
[2019-11-27 17:11] LABS: Anion Gap 5 (5-15); BUN 9 mg/dL (7-18); Calcium,Total 8.2 mg/dL (8.5-10.1); Chloride 109 mmol/L (98-107); Creatinine, Serum 0.82 mg/dL (0.55-1.02); EST Glomerular Filtration Rate 76 mL/min (>60); Est Glom Filt Rate - Afr Amer 92 mL/min (>60); Estimated Creatinine Clearance 63.12 ml/min; Glucose 80 mg/dL (74-106); Potassium 4.4 mmol/L (3.5-5.1); Sodium Level 140 mmol/L (136-145)
[2019-11-27] MEDS: 0.9% Saline Lock 10 ML Syringe IV ×2 (22:16→23:30)
[2019-11-28] VITALS (10 sets, daily range): BP systolic 90–112; BP diastolic 54–60; PULSE 64–78; RESP 16–18; TEMP 36.6–37; O2SAT 94–100
[2019-11-28] MEDS: metroNIDAZOLE 500 MG/100 ML BAG 100 MG IV ×3 (05:47→21:01)
[2019-11-28] MEDS: Sucralfate 1 GM Tablet PO ×4 (05:54→21:00)
[2019-11-28] MEDS: Potassium Chloride 40 MEQ in 0.45% Normal Saline 1,000 ML 100 MEQ IV ×2 (07:28→22:25)
[2019-11-28] MEDS: 0.9% Saline Lock 10 ML Syringe IV ×2 (07:29→20:54)
[2019-11-28 07:43] LABS: ALB/GLOB Ratio 1.1 RATIO (0.9-2.4); AST(SGOT) 11 U/L (15-37); Alanine Aminotransfer ALT/SGPT 15 U/L (13-56); Albumin, Serum 2.8 g/dL (3.2-5.0); Alkaline Phosphatase 65 U/L (45-117); Anion Gap 3 (5-15); BUN 6 mg/dL (7-18); Calcium,Total 8.1 mg/dL (8.5-10.1); Chloride 109 mmol/L (98-107); Creatinine, Serum 0.75 mg/dL (0.55-1.02); EST Glomerular Filtration Rate 84 mL/min (>60); Est Glom Filt Rate - Afr Amer 102 mL/min (>60); Estimated Creatinine Clearance 69.01 ml/min; Globulin 2.6 g/dL (2.2-4.2); Glucose 124 mg/dL (74-106); Potassium 3.9 mmol/L (3.5-5.1); Protein, Total 5.4 g/dL (6.4-8.2); Sodium Level 140 mmol/L (136-145)
[2019-11-28] MEDS: Enoxaparin 40 MG/0.4 ML Syringe SC (08:16)
[2019-11-28] MEDS: Pantoprazole Sodium 40 MG Tablet PO (08:17)
[2019-11-28] MEDS: PARoxetine 10 MG Tablet 30 MG PO (08:17)
[2019-11-28 08:18] LABS: Absolute Lymphocyte Count 1.18 X10^3/uL (0.83-4.51); Absolute Neutrophil Count 2.2 X10^3/uL (2.0-7.7); Basophil# 0.01 X10^3/uL; Basophil% 0.2 % (0-1); Eosinophil# 1.11 X10^3/uL; Eosinophils% 22.7 % (0-5); Hematocrit 36.1 % (37-47); Hemoglobin 11.9 g/dL (12.0-15.0); Lymphocyte # 1.18 X10^3/ul (4.0); Lymphocyte % 24.1 % (19-41); Mean Corpuscular Hgb 29.7 pg (27.0-32.0); Mean Platelet Vol. 9.7 fl (6.2-12.0); Monocyte# 0.38 X10^3/uL; Monocyte% 7.8 % (0-10); NRBC Flagged by Analyzer 0 % (0-5); Platelet Count 227 K/mm3 (150-450); RBC Distribution Width CV 13.2 % (11.6-14.6); RBC Distribution Width SD 43.8 fl (35.1-43.9); Red Blood Count 4.01 M/mm3 (4.2-5.4); White Blood Count 4.9 K/mm3 (4.4-11.0)
[2019-11-28] MEDS: Ciprofloxacin 400 MG/200 ML BAG 200 MG IV ×2 (09:32→21:00)
--- NOTE | 2019-11-28 10:26 | PN_ITS ---
Patient Problems: Active and Suspected Problems (Last Reviewed 11/27/19 @ 08:[address] Diaz Hernandez MD) Gastroenteritis (Acute) Reason for Visit: Follow-up on acute gastroenteritis/hypokalemia Subjective: Patient was seen and examined. She denies abdominal pain, fever or chills. No diarrhea since admission. Objective: Physical exam: General: Alert, Oriented x3, Cooperative HEENT: Atraumatic, PERRLA, EOMI, Normocephalic Neck: Supple, No JVD, Negative Carotid Bruits Lungs: Clear to auscultation, Normal air movement Cardiovascular: Regular rate, Normal S1, Normal S2, No murmurs Abdomen: Bowel Sounds Present, Soft, Non Tender Extremities: No edema, Capillary Refill Less than 3 Seconds Skin: No rashes, No breakdown Musculoskeletal: No Tenderness to Palpation of Joints or Extremities Neurological: Cranial nerves II-XII grossly intact Psych/Mental Status: Normal Affect, Appropriate Vitals/I&O's: Vital Signs Temp Pulse Resp BP Pulse Ox 98.3 F 78 18 90/57 L 94 11/28/19 08:15 11/28/19 08:15 11/28/19 08:15 11/28/19 08:15 11/28/19 08:15 Oxygen Delivery Method Room Air Weight: 54.8 kg Body Mass Index (BMI) 20.0 Intake and Output for Last 24 Hours 11/26/19 11/27/19 11/28/19 23:59 23:59 23:59 Intake Total 4066.67 / 4066.67 938.34 / 938.34 Output Total 850 / 850 550 / 550 Balance 3216.67 / 3216.67 388.34 / 388.34 Microbiology Past 72 Hours 11/27/19 01:55 Stool Enteric Bacteriology - Final 11/27/19 01:55 Stool C. difficile DNA Amplification - Final Laboratory Results 11/27/19 16:20: Sodium 140, Potassium 4.4, Chloride 109 H, Carbon Dioxide 26.0, Anion Gap 5, BUN 9, Creatinine 0.82, Estim Creat Clear Calc 63.12, Est GFR (MDRD) Af Amer 92, Est GFR (MDRD) Non-Af 76, BUN/Creatinine Ratio 11.0, Glucose 80, Calcium 8.2 L 11/28/19 06:44: WBC 4.9, RBC 4.01 L, Hgb 11.9 L, Hct 36.1 L, MCV 90.0, MCH 29.7, MCHC 33.0, RDW Std Deviation 43.8, RDW Coeff of Johnny 13.2, Plt Count 227, MPV 9.7, Immature Gran % (Auto) 0.200, Neut % (Auto) 45.0 L, Lymph % (Auto) 24.1, [place] % (Auto) 7.8, Eos % (Auto) 22.7 H, Baso % (Auto) 0.2, Absolute Neuts (auto) 2.2, Absolute Lymphs (auto) 1.18, Nucleated RBC % 0 11/28/19 06:44: Sodium 140, Potassium 3.9, Chloride 109 H, Carbon Dioxide 28.0, Anion Gap 3 L, BUN 6 L, Creatinine 0.75, Estim Creat Clear Calc 69.01, Est GFR (MDRD) Af Amer 102, Est GFR (MDRD) Non-Af 84, BUN/Creatinine Ratio 8.0 L, Glucose 124 H, Calcium 8.1 L, Total Bilirubin 0.40, AST 11 L, ALT 15, Alkaline Phosphatase 65, Total Protein 5.4 L, Albumin 2.8 L, Globulin 2.6, Albumin/Carmella bulin Ratio 1.1 Current Medications Acetaminophen (Tylenol) 650 mg PO Q6H PRN PRN PRN Reason: Pain Score 1-10/Temp > 100.7 F Enoxaparin Sodium (Lovenox) 40 mg SC DAILY [facility]PLAC[facility] BY [facility] Last Admin: 11/28/19 08:16 Dose: 40 mg Documented by: Potassium Chloride 40 meq/ (Sodium Chloride) 1,020 mls @ 100 mls/hr IV .[id number] REPLACED BY [facility] Last Infusion: 11/28/19 09:32 Dose: 0 mls/hr Documented by: Sodium Chloride () 250 mls @ 15 mls/hr IV .[id number] PRN PRN Reason: Saline Flush Sodium Chloride () 250 mls @ 15 mls/hr IV .[id number] PRN PRN Reason: Additional IVPB Infusion Ciprofloxacin (Cipro) 400 mg in 200 mls @ 200 mls/hr IV Q12 [facility]PLACED BY [facility] Last Admin: 11/28/19 09:32 Dose: 200 mls/hr Documented by: Metronidazole (Flagyl) 500 mg in 100 mls @ 100 mls/hr IV Q8 REPLACED BY [facility] Last Infusion: 11/28/19 06:47 Dose: Infused Documented by: Melatonin (Melatonin) 3 mg PO QHS PRN PRN PRN Reason: INSOMNIA Ondansetron HCl (Zofran) 4 mg IV Q8H PRN PRN PRN Reason: NAUSEA/VOMITING Pancrelipase (Creon Dr 12,000 Unit Capsule) 1 capsule PO TIDCM REPLACED BY [facility] Last Admin: 11/28/19 08:16 Dose: 1 capsule Documented by: Pantoprazole Sodium (Protonix) 40 mg PO DAILY [facility]PL[facility] Last Admin: 11/28/19 08:17 Dose: 40 mg Documented by: Paroxetine HCl (Paxil) 30 mg PO DAILY [facility] Last Admin: 11/28/19 08:17 Dose: 30 mg Documented by: Sodium Chloride () 10 - 40 ml IV UD PRN PRN Reason: SALINE FLUSH Last Admin: 11/28/19 07:29 Dose: 10 ml Documented by: Sucralfate (Carafate) 1 gm PO 1HR_ACHS REPLACED BY [facility] Last Admin: 11/28/19 05:54 Dose: 1 gm Documented by: STROKE Vital Signs/Narrative: Vital Signs Temp Pulse Resp BP Pulse Ox 11/28/19 08:15 98.3 F 78 18 90/57 L 94 11/28/19 07:46 74 11/28/19 07:45 96 Medical Necessity - Tobacco Use Smoking Status: Never smoker Tobacco Use: Cigarettes Assessment/Plan All Active Problems (Last Reviewed 11/27/19 @ 08:[address] Diaz Hernandez MD) Gastroenteritis (Acute) 1. Acute enteritis, seen on CT of the abdomen and pelvis, slowly improving Stool for C. diff and enteric panel negative. We will continue with IV fluid hydration, IV Cipro and Flagyl 2. Hypokalemia secondary to #1, place, recheck on 4pm 3. DVT PPx- Lovenox Sc 4. Disposition: Possible dc in am Inpatient E&M: 41008 Subs Hosp L2
[2019-11-29] VITALS: PULSE 64
[2019-11-29 03:30] VITALS: BP 102/60; PULSE 70; RESP 18; TEMP 37.1; O2SAT 98
[2019-11-29 04:00] VITALS: PULSE 73
[2019-11-29] MEDS: 0.9% Saline Lock 10 ML Syringe IV (06:28)
[2019-11-29] MEDS: Sucralfate 1 GM Tablet PO (06:28)
[2019-11-29] MEDS: metroNIDAZOLE 500 MG/100 ML BAG 100 MG IV (06:28)
[2019-11-29 07:00] VITALS: PULSE 72
[2019-11-29 07:19] LABS: Absolute Lymphocyte Count 0.89 X10^3/uL (0.83-4.51); Absolute Neutrophil Count 3.9 X10^3/uL (2.0-7.7); Basophil# 0.03 X10^3/uL; Basophil% 0.5 % (0-1); Eosinophil# 0.96 X10^3/uL; Eosinophils% 15.1 % (0-5); Hematocrit 37.6 % (37-47); Hemoglobin 12.1 g/dL (12.0-15.0); Lymphocyte # 0.89 X10^3/ul (4.0); Mean Corp Hgb Conc 32.2 g/dL (32-36); Mean Corpuscular Volume 90.2 fL (81-99); Mean Platelet Vol. 9.6 fl (6.2-12.0); Monocyte# 0.56 X10^3/uL; Monocyte% 8.8 % (0-10); NRBC Flagged by Analyzer 0 % (0-5); Neutrophil # 3.91 X10^3/uL (2.7-7.7); Neutrophil % 61.3 % (47-70); Platelet Count 234 K/mm3 (150-450); RBC Distribution Width CV 13.5 % (11.6-14.6); RBC Distribution Width SD 44.5 fl (35.1-43.9); Red Blood Count 4.17 M/mm3 (4.2-5.4); White Blood Count 6.4 K/mm3 (4.4-11.0)
[2019-11-29] MEDS: PARoxetine 10 MG Tablet 30 MG PO (07:33)
[2019-11-29] MEDS: Pantoprazole Sodium 40 MG Tablet PO (07:34)
[2019-11-29 07:44] LABS: AST(SGOT) 16 U/L (15-37); Alanine Aminotransfer ALT/SGPT 15 U/L (13-56); Alkaline Phosphatase 68 U/L (45-117); Anion Gap 4 (5-15); BUN 3 mg/dL (7-18); BUN/Creat Ratio 3.7 RATIO (10-20); Calcium,Total 8.3 mg/dL (8.5-10.1); Chloride 108 mmol/L (98-107); Creatinine, Serum 0.81 mg/dL (0.55-1.02); EST Glomerular Filtration Rate 76 mL/min (>60); Est Glom Filt Rate - Afr Amer 93 mL/min (>60); Globulin 2.9 g/dL (2.2-4.2); Glucose 105 mg/dL (74-106); Potassium 3.6 mmol/L (3.5-5.1); Protein, Total 5.9 g/dL (6.4-8.2); Sodium Level 142 mmol/L (136-145)
--- NOTE | 2019-11-29 07:49 | PN_ITS ---
Patient Problems: Active and Suspected Problems (Last Reviewed 11/27/19 @ 08:[address] Diaz Hernandez MD) Gastroenteritis (Acute) Vitals/I&O's: Vital Signs Temp Pulse Resp BP Pulse Ox 98.8 F 72 18 102/60 98 11/29/19 03:30 11/29/19 07:00 11/29/19 03:30 11/29/19 03:30 11/29/19 03:30 Oxygen Delivery Method Room Air Weight: 54.8 kg Body Mass Index (BMI) 20.0 Intake and Output for Last 24 Hours 11/27/19 11/28/19 11/29/19 23:59 23:59 23:59 Intake Total 4066.67 / 4066.67 3003.34 / 3203.34 400 / 400 Output Total 850 / 850 900 / 900 Balance 3216.67 / 3216.67 2103.34 / 2303.34 400 / 400 Microbiology Past 72 Hours 11/27/19 01:55 Stool Enteric Bacteriology - Final 11/27/19 01:55 Stool C. difficile DNA Amplification - Final Laboratory Results 11/28/19 06:44: WBC 4.9, RBC 4.01 L, Hgb 11.9 L, Hct 36.1 L, MCV 90.0, MCH 29.7, MCHC 33.0, RDW Std Deviation 43.8, RDW Coeff of Johnny 13.2, Plt Count 227, MPV 9.7, Immature Gran % (Auto) 0.200, Neut % (Auto) 45.0 L, Lymph % (Auto) 24.1, [place] % (Auto) 7.8, Eos % (Auto) 22.7 H, Baso % (Auto) 0.2, Absolute Neuts (auto) 2.2, Absolute Lymphs (auto) 1.18, Nucleated RBC % 0 11/29/19 06:37: WBC 6.4, RBC 4.17 L, Hgb 12.1, Hct 37.6, MCV 90.2, MCH 29.0, MCHC 32.2, RDW Std Deviation 44.5 H, RDW Coeff of Johnny 13.5, Plt Count 234, MPV 9.6, Immature Gran % (Auto) 0.300, Neut % (Auto) 61.3, Lymph % (Auto) 14.0 L, [place] % (Auto) 8.8, Eos % (Auto) 15.1 H, Baso % (Auto) 0.5, Absolute Neuts (auto) 3.9, Absolute Lymphs (auto) 0.89, Nucleated RBC % 0 11/29/19 06:37: Sodium 142, Potassium 3.6, Chloride 108 H, Carbon Dioxide 30.0, Anion Gap 4 L, BUN 3 L, Creatinine 0.81, Estim Creat Clear Calc 63.90, Est GFR (MDRD) Af Amer 93, Est GFR (MDRD) Non-Af 76, BUN/Creatinine Ratio 3.7 L, Glucose 105, Calcium 8.3 L, Total Bilirubin 0.30, AST 16, ALT 15, Alkaline Phosphatase 68, Total Protein 5.9 L, Albumin 3.0 L, Globulin 2.9, Albumin/Globulin Ratio 1.0 Current Medications Acetaminophen (Tylenol) 650 mg PO Q6H PRN PRN PRN Reason: Pain Score 1-10/Temp > 100.7 F Enoxaparin Sodium (Lovenox) 40 mg SC DAILY [facility] Last Admin: 11/28/19 08:16 Dose: 40 mg Documented by: Potassium Chloride 40 meq/ (Sodium Chloride) 1,020 mls @ 100 mls/hr IV .[id number] [facility] Last Admin: 11/28/19 22:25 Dose: 100 mls/hr Documented by: Sodium Chloride () 250 mls @ 15 mls/hr IV .[id number] PRN PRN Reason: Saline Flush Sodium Chloride () 250 mls @ 15 mls/hr IV .[id number] PRN PRN Reason: Additional IVPB Infusion Ciprofloxacin (Cipro) 400 mg in 200 mls @ 200 mls/hr IV Q12 [facility] Last Infusion: 11/28/19 22:00 Dose: Infused Documented by: Metronidazole (Flagyl) 500 mg in 100 mls @ 100 mls/hr IV Q8 [facility] Last Admin: 11/29/19 06:28 Dose: 100 mls/hr Documented by: Melatonin (Melatonin) 3 mg PO QHS PRN PRN PRN Reason: INSOMNIA Ondansetron HCl (Zofran) 4 mg IV Q8H PRN PRN PRN Reason: NAUSEA/VOMITING Pancrelipase (Creon Dr 12,000 Unit Capsule) 1 capsule PO TIDCM [facility] Last Admin: 11/29/19 07:27 Dose: 1 capsule Documented by: Pantoprazole Sodium (Protonix) 40 mg PO DAILY [facility] Last Admin: 11/29/19 07:34 Dose: 40 mg Documented by: Paroxetine HCl (Paxil) 30 mg PO DAILY [facility] Last Admin: 11/29/19 07:33 Dose: 30 mg Documented by: Sodium Chloride () 10 - 40 ml IV UD PRN PRN Reason: SALINE FLUSH Last Admin: 11/29/19 06:28 Dose: 10 ml Documented by: Sucralfate (Carafate) 1 gm PO 1HR_ACHS [facility] Last Admin: 11/29/19 06:28 Dose: 1 gm Documented by: STROKE Vital Signs/Narrative: Vital Signs Pulse 11/29/19 07:00 72 11/29/19 04:00 73 Medical Necessity - Tobacco Use Smoking Status: Never smoker Tobacco Use: Cigarettes Assessment/Plan All Active Problems (Last Reviewed 11/27/19 @ 08:[address] Diaz Hernandez MD) Gastroenteritis (Acute)
[2019-11-29 07:50] VITALS: O2SAT 99
[2019-11-29 08:00] VITALS: BP 108/58; PULSE 69; RESP 14; TEMP 36.9; O2SAT 98
--- NOTE | 2019-11-29 09:18 | DCINST_ITS ---
- Discharge Diagnoses Current Active Problems: Current Active and Chronic Problems (Last Reviewed 11/27/19 @ 08:[address] Diaz Hernandez MD) Gastroenteritis (Acute) Reason(s) for Visit for Discharge Instructions: Acute enteritis You will use the following diet at home:: Regular Your food should be the consistency of: Regular Your liquids should be the consistency of: Regular/Thin Discharge Activity: Return to Normal Activity Instructions: ED Food Poison Or Gastroenteritis, ED Gastroenteritis Noninfectious Additional Instructions: Continue to keep yourself hydrated. Complete your antibiotics. Continue to keep good hygiene especially concerning your food and drink. Follow-up with your primary care doctor in 1 to 2 weeks. Allergies/Adverse Reactions: Allergies sulfamethoxazole [From Bactrim] Allergy (Unknown, Verified 11/27/19 01:04) Unknown trimethoprim [From Bactrim] Allergy (Unknown, Verified 11/27/19 01:04) Unknown Medications to take at Discharge paroxetine HCl 30 mg tablet 30 mg PO DAILY 11/03/19 omeprazole 40 mg capsule,delayed release 40 mg PO DAILY #30 cap 11/26/19 sucralfate 1 gram tablet 1 g PO QACHS #120 tab 11/26/19 lipase/protease/amylase [Creon DR 12,000 Unit Capsule] 1 cap PO TID 11/27/19 Acetaminophen [Tylenol Tablet] 650 mg PO Q6H PRN PRN tablet 11/29/19 Ciprofloxacin [Cipro] 500 mg PO BID 7 Days #14 tab 11/29/19 Metronidazole [Flagyl] 500 mg PO TID 7 Days #21 tab 11/29/19 Potassium Chloride [Klor-Con M20] 20 meq PO DAILY 5 Days #5 tab.er.prt 11/29/19 The following prescriptions were given: Ciprofloxacin [Cipro] 500 mg PO BID 7 Days #14 tab Transmission Status: Pending to [id number] Metronidazole [Flagyl] 500 mg PO TID 7 Days #21 tab Transmission Status: Pending to [id number] Potassium Chloride [Klor-Con M20] 20 meq PO DAILY 5 Days #5 tab.er.prt Prescription Printed Primary Care Physician: Ken Zarco MD [Primary Care Provider] - Please follow up with your Primary Care Physician in: Within 1 to 2 weeks Test Results: Test results from this visit will be discussed in further detail at your follow- up appointment, if applicable. Please Follow Up With: Arben Mccann MD When: as scheduled Proposed Discharge Date: 11/29/19
--- NOTE | 2019-11-29 09:20 | DS.PCM_ITS ---
Discharge Date and Diagnosis - Problem List Patient Problems: Active and Suspected Problems (Last Reviewed 11/27/19 @ 08:[address] Diaz Hernandez MD) Hypokalemia (Acute) Enteritis (Acute) Gastroenteritis (Acute) Date of Admission: 11/27/19 Date of Discharge: 11/29/19 - Primary Discharge Diagnosis Acute Problems: Active Problems (Last Reviewed 11/27/19 @ 08:[address] Diaz Hernandez MD) Acute enteritis Hypokalemia Syncope secondary to dehydration from enteritis, POA Hospital Course and Treatment Imaging Results: Clinical Impression(s) from Imaging Studies Abdomen/Pelvis CT 11/27/19 01:05 IMPRESSION: Severe enteritis with a diarrheal state. Individualized dose optimization techniques were used for this CT. at 0406 Reported and signed by: Ethan Townsend MD Electronically Signed: Ethan Townsend MD at 4:05 EDT Tel , Service support , Operations: None Procedures: None Summary of Care Provided: The patient is a 59 year old F with PMHx of cancer who was admitted on 11/27/19 with nausea, vomiting, abdominal pain and diarrhea, ongoing for 2 months. Reports having about 15 bowel movements a day. She had been worked out in the outpatient by Dr. Zarco and [facility] of gallbladder showed polyps. In the ED, patient's potassium was 3.0, her lactic acid was normal, C. difficile was negative. CT of the abdomen and pelvis showed severe enteritis. Reported passing out whilst on the toilet. Her blood work did not show any acute kidney injury. She was admitted to the [facility] floor, started on IV fluids, IV antibiotics. Her potassium was replaced. Magnesium was normal. She continued to improve and was able to tolerate advancement in her diet. He was discharged on 1 week of Cipro and Flagyl. She will follow-up in the outpatient with her primary care doctor. Patient Problems: Active and Suspected Problems (Last Reviewed 11/27/19 @ 08:[address] Diaz Hernandez MD) Hypokalemia (Acute) Enteritis (Acute) Gastroenteritis (Acute) Subjective: On the day of discharge, patient was seen and examined. Denied any new complaints. Denied any fever or chills. Objective: Physical exam: General: Alert, Oriented x3, Cooperative HEENT: Atraumatic, PERRLA, EOMI, Normocephalic Neck: Supple, No JVD, Negative Carotid Bruits Lungs: Clear to auscultation, Normal air movement Cardiovascular: Regular rate, Normal S1, Normal S2, No murmurs Abdomen: Bowel Sounds Present, Soft, improved tenderness over the mid abdomen, no guarding or rebound tenderness. Extremities: No edema, Capillary Refill Less than 3 Seconds Skin: No rashes, No breakdown Musculoskeletal: No Tenderness to Palpation of Joints or Extremities Neurological: Cranial nerves II-XII grossly intact Psych/Mental Status: Normal Affect, Appropriate - Physical Exam Vitals/I&O's: Vital Signs Temp Pulse Resp BP Pulse Ox 98.8 F 72 18 102/60 99 11/29/19 03:30 11/29/19 07:00 11/29/19 03:30 11/29/19 03:30 11/29/19 07:50 Oxygen Delivery Method Room Air Weight: 54.8 kg Body Mass Index (BMI) 20.0 Intake and Output for Last 24 Hours 11/27/19 11/28/19 11/29/19 23:59 23:59 23:59 Intake Total 4066.67 / 4066.67 3003.34 / 3203.34 1520 / 1520 Output Total 850 / 850 900 / 900 Balance 3216.67 / 3216.67 2103.34 / 2303.34 1520 / 1520 Microbiology Past 72 Hours 11/27/19 01:55 Stool Enteric Bacteriology - Final 11/27/19 01:55 Stool C. difficile DNA Amplification - Final Laboratory Results 11/29/19 06:37: WBC 6.4, RBC 4.17 L, Hgb 12.1, Hct 37.6, MCV 90.2, MCH 29.0, MCHC 32.2, RDW Std Deviation 44.5 H, RDW Coeff of Johnny 13.5, Plt Count 234, MPV 9.6, Immature Gran % (Auto) 0.300, Neut % (Auto) 61.3, Lymph % (Auto) 14.0 L, [place] % (Auto) 8.8, Eos % (Auto) 15.1 H, Baso % (Auto) 0.5, Absolute Neuts (auto) 3.9, Absolute Lymphs (auto) 0.89, Nucleated RBC % 0 11/29/19 06:37: Sodium 142, Potassium 3.6, Chloride 108 H, Carbon Dioxide 30.0, Anion Gap 4 L, BUN 3 L, Creatinine 0.81, Estim Creat Clear Calc 63.90, Est GFR (MDRD) Af Amer 93, Est GFR (MDRD) Non-Af 76, BUN/Creatinine Ratio 3.7 L, Glucose 105, Calcium 8.3 L, Total Bilirubin 0.30, AST 16, ALT 15, Alkaline Phosphatase 68, Total Protein 5.9 L, Albumin 3.0 L, Globulin 2.9, Albumin/Globulin Ratio 1.0 Current Medications Acetaminophen (Tylenol) 650 mg PO Q6H PRN PRN PRN Reason: Pain Score 1-10/Temp > 100.7 F Enoxaparin Sodium (Lovenox) 40 mg SC DAILY [facility] Last Admin: 11/28/19 08:16 Dose: 40 mg Documented by: Potassium Chloride 40 meq/ (Sodium Chloride) 1,020 mls @ 100 mls/hr IV .[id number] [facility] Last Infusion: 11/29/19 09:10 Dose: Infused Documented by: Sodium Chloride () 250 mls @ 15 mls/hr IV .[id number] PRN PRN Reason: Saline Flush Sodium Chloride () 250 mls @ 15 mls/hr IV .[id number] PRN PRN Reason: Additional IVPB Infusion Ciprofloxacin (Cipro) 400 mg in 200 mls @ 200 mls/hr IV Q12 [facility] Last Infusion: 11/28/19 22:00 Dose: Infused Documented by: Metronidazole (Flagyl) 500 mg in 100 mls @ 100 mls/hr IV Q8 [facility] Last Infusion: 11/29/19 07:28 Dose: Infused Documented by: Melatonin (Melatonin) 3 mg PO QHS PRN PRN PRN Reason: INSOMNIA Ondansetron HCl (Zofran) 4 mg IV Q8H PRN PRN PRN Reason: NAUSEA/VOMITING Pancrelipase (Creon Dr 12,000 Unit Capsule) 1 capsule PO TIDCM [facility] Last Admin: 11/29/19 07:27 Dose: 1 capsule Documented by: Pantoprazole Sodium (Protonix) 40 mg PO DAILY [facility] Last Admin: 11/29/19 07:34 Dose: 40 mg Documented by: Paroxetine HCl (Paxil) 30 mg PO DAILY [facility] Last Admin: 11/29/19 07:33 Dose: 30 mg Documented by: Sodium Chloride () 10 - 40 ml IV UD PRN PRN Reason: SALINE FLUSH Last Admin: 11/29/19 06:28 Dose: 10 ml Documented by: Sucralfate (Carafate) 1 gm PO 1HR_ACHS [facility] Last Admin: 11/29/19 06:28 Dose: 1 gm Documented by: Discharge Diet: No Restrictions Discharge Activity: Return to Normal Activity Home Medications: Medications to take at Discharge paroxetine HCl 30 mg tablet 30 mg PO DAILY 11/03/19 omeprazole 40 mg capsule,delayed release 40 mg PO DAILY #30 cap 11/26/19 sucralfate 1 gram tablet 1 g PO QACHS #120 tab 11/26/19 lipase/protease/amylase [Creon DR 12,000 Unit Capsule] 1 cap PO TID 11/27/19 Acetaminophen [Tylenol Tablet] 650 mg PO Q6H PRN PRN tab 11/29/19 Ciprofloxacin [Cipro] 500 mg PO BID 7 Days #14 tab 11/29/19 Metronidazole [Flagyl] 500 mg PO TID 7 Days #21 tab 11/29/19 Potassium Chloride [Klor-Con M20] 20 meq PO DAILY 5 Days #5 tab.er.prt 11/29/19 Following Prescriptions Were Given to Patient: Ciprofloxacin [Cipro] 500 mg PO BID 7 Days #14 tab Transmission Status: [id number] Metronidazole [Flagyl] 500 mg PO TID 7 Days #21 tab Transmission Status: Received by [id number] Potassium Chloride [Klor-Con M20] 20 meq PO DAILY 5 Days #5 tab.er.prt Prescription Printed Primary Care Physician: Ken Zarco MD [Primary Care Provider] - Please follow up with your Primary Care Physician in: Within 1 to 2 weeks Please Follow Up With: Arben Mccann MD When: as scheduled Patient Instructions: ED Food Poison Or Gastroenteritis, ED Gastroenteritis Noninfectious Disposition: Home Minutes spent on discharge:: 40 Patient Condition:: Stable Medical Necessity - Tobacco Use Smoking Status: Never smoker Tobacco Use: Cigarettes Meaningful Use Info Meaningful Use Diagnoses (Choose all that apply): None applicable Inpatient E&M: 34087 Disch Hosp
== END 2019-11-29 10:15 | disposition home or self-care (01) | DRG 392 ==
LOC: ED 02:09 → MS3 06:21
PROVIDERS: Admitting Provider Hospitalist; Emergency Provider Emergency Medicine; PCP Family Medicine; Visit Provider Internal Medicine
DX: K52.9 Noninfective gastroenteritis and colitis, unspecified (principal); E87.6 Hypokalemia; E86.0 Dehydration; R55 Syncope and collapse; K82.4 Cholesterolosis of gallbladder; M19.90 Unspecified osteoarthritis, unspecified site; K21.9 Gastro-esophageal reflux disease without esophagitis; Z79.899 Other long term (current) drug therapy; F41.9 Anxiety disorder, unspecified
CPT/HCPCS: 36415; 74177; 80048; 80053; 81001; 83605; 83735; 84484; 85025; 87493; 87506; 93005; 96361; 96365; 96366; 96367; 96372; 96375; 99218; 99285; J7030; Q9967; A4216; G0378; J0744; J2405

== ENCOUNTER → 2019-12-02 | Outpatient (CLI) | payer OTHER, SELFPAY ==
[2019-12-02 12:35] LABS: Erythrocyte Sedimentation Rate 14 mm/hr (0-30)
[2019-12-02 12:48] LABS: Absolute Neutrophil Count 2.9 X10^3/uL (2.0-7.7); Basophil# 0.04 X10^3/uL; Basophil% 0.7 % (0-1); Eosinophil# 0.89 X10^3/uL; Eosinophils% 15.7 % (0-5); Hematocrit 38.1 % (37-47); Hemoglobin 12.5 g/dL (12.0-15.0); Lymphocyte % 17.6 % (19-41); Mean Corp Hgb Conc 32.8 g/dL (32-36); Mean Corpuscular Hgb 29.3 pg (27.0-32.0); Mean Corpuscular Volume 89.2 fL (81-99); Mean Platelet Vol. 9.9 fl (6.2-12.0); Monocyte# 0.78 X10^3/uL; Monocyte% 13.7 % (0-10); NRBC Flagged by Analyzer 0 % (0-5); Neutrophil # 2.94 X10^3/uL (2.7-7.7); Neutrophil % 51.8 % (47-70); Platelet Count 282 K/mm3 (150-450); RBC Distribution Width CV 13.2 % (11.6-14.6); RBC Distribution Width SD 43.5 fl (35.1-43.9); Red Blood Count 4.27 M/mm3 (4.2-5.4); White Blood Count 5.7 K/mm3 (4.4-11.0)
[2019-12-02 12:50] LABS: ALB/GLOB Ratio 0.9 RATIO (0.9-2.4); AST(SGOT) 23 U/L (15-37); Alanine Aminotransfer ALT/SGPT 24 U/L (13-56); Albumin, Serum 3.2 g/dL (3.2-5.0); Alkaline Phosphatase 79 U/L (45-117); Anion Gap 5 (5-15); BUN 4 mg/dL (7-18); BUN/Creat Ratio 5.6 RATIO (10-20); Calcium,Total 8.6 mg/dL (8.5-10.1); Chloride 101 mmol/L (98-107); Creatinine, Serum 0.72 mg/dL (0.55-1.02); EST Glomerular Filtration Rate 88 mL/min (>60); Est Glom Filt Rate - Afr Amer 107 mL/min (>60); Globulin 3.7 g/dL (2.2-4.2); Glucose 106 mg/dL (74-106); Magnesium 2.1 mg/dL (1.6-2.6); Potassium 3.5 mmol/L (3.5-5.1); Protein, Total 6.9 g/dL (6.4-8.2); Sodium Level 136 mmol/L (136-145)
== END | disposition home or self-care (01) ==
LOC: MFPLAB 09:50
PROVIDERS: PCP Family Medicine; Referring Provider Family Medicine; Visit Provider Family Medicine
DX: E87.6 Hypokalemia (principal); K52.9 Noninfective gastroenteritis and colitis, unspecified
CPT/HCPCS: 36415; 80053; 83735; 85025; 85652; 86140

== ENCOUNTER → 2019-12-21 | Outpatient (CLI) | payer OTHER, SELFPAY ==
[2019-12-21 10:06] LABS: Absolute Lymphocyte Count 0.97 X10^3/uL (0.83-4.51); Absolute Neutrophil Count 1.5 X10^3/uL (2.0-7.7); Basophil# 0.04 X10^3/uL; Eosinophil# 1.02 X10^3/uL; Eosinophils% 25.9 % (0-5); Hematocrit 38.7 % (37-47); Hemoglobin 12.6 g/dL (12.0-15.0); Lymphocyte # 0.97 X10^3/ul (4.0); Lymphocyte % 24.6 % (19-41); Mean Corp Hgb Conc 32.6 g/dL (32-36); Mean Corpuscular Hgb 29.1 pg (27.0-32.0); Mean Corpuscular Volume 89.4 fL (81-99); Mean Platelet Vol. 9.6 fl (6.2-12.0); Monocyte# 0.43 X10^3/uL; Monocyte% 10.9 % (0-10); NRBC Flagged by Analyzer 0 % (0-5); Neutrophil # 1.47 X10^3/uL (2.7-7.7); Neutrophil % 37.3 % (47-70); Platelet Count 334 K/mm3 (150-450); RBC Distribution Width CV 13.2 % (11.6-14.6); RBC Distribution Width SD 43.5 fl (35.1-43.9); Red Blood Count 4.33 M/mm3 (4.2-5.4); White Blood Count 3.9 K/mm3 (4.4-11.0)
[2019-12-21 10:11] LABS: AST(SGOT) 25 U/L (15-37); Alanine Aminotransfer ALT/SGPT 26 U/L (13-56); Albumin, Serum 3.3 g/dL (3.2-5.0); Alkaline Phosphatase 64 U/L (45-117); Anion Gap 1 (5-15); BUN 11 mg/dL (7-18); BUN/Creat Ratio 13.3 RATIO (10-20); CRP < 2.90 mg/L (0.0-3.0); Calcium,Total 9.1 mg/dL (8.5-10.1); Chloride 104 mmol/L (98-107); Creatinine, Serum 0.83 mg/dL (0.55-1.02); EST Glomerular Filtration Rate 75 mL/min (>60); Est Glom Filt Rate - Afr Amer 90 mL/min (>60); Globulin 3.4 g/dL (2.2-4.2); Glucose 96 mg/dL (74-106); Potassium 4.3 mmol/L (3.5-5.1); Protein, Total 6.7 g/dL (6.4-8.2); Sodium Level 138 mmol/L (136-145)
[2019-12-21 10:13] LABS: Erythrocyte Sedimentation Rate 8 mm/hr (0-30)
== END | disposition home or self-care (01) ==
LOC: MFPLAB 08:52
PROVIDERS: PCP Family Medicine; Visit Provider Family Medicine
DX: E87.6 Hypokalemia (principal); K52.9 Noninfective gastroenteritis and colitis, unspecified
CPT/HCPCS: 36415; 80053; 85025; 85652; 86140

== ENCOUNTER → 2019-12-23 10:25 | Outpatient (CLI) | payer OTHER, SELFPAY ==
--- NOTE | 2019-12-30 08:08 | HP_ITS ---
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 Is patient in pain?: No Allergies sulfamethoxazole [From Bactrim] Allergy (Unknown, Verified 12/18/19 08:43) Unknown trimethoprim [From Bactrim] Allergy (Unknown, Verified 12/18/19 08:43) Unknown Medications paroxetine HCl 30 mg tablet 30 mg PO DAILY 11/03/19 [History Confirmed 12/18/19] lipase/protease/amylase [Teri WRIGHT 12,000 Unit Capsule] 1 cap PO TID 11/27/19 [History Confirmed 12/18/19] Acetaminophen [Tylenol Tablet] 650 mg PO Q6H PRN PRN tab 11/29/19 [Rx Confirmed 12/18/19] Lorazepam [Ativan] 0.5 - 1 mg PO TID PRN 12/18/19 [History Confirmed 12/18/19] Omeprazole 40 mg PO DAILY 12/18/19 [History Confirmed 12/18/19] Ondansetron [Zofran] 4 - 8 mg PO Q8H PRN PRN 12/18/19 [History Confirmed 12/18/19] Saccharomyces Boulardii [Florastor] 250 mg PO BID 12/18/19 [History Confirmed 12/18/19] Sucralfate 1 g PO TID 12/18/19 [History Confirmed 12/18/19] PFSH Medical History Anxiety (Acute) Arthritis (Acute) Breast cancer (Acute) Diarrhea (Acute) GERD (gastroesophageal reflux disease) (Acute) Gallbladder polyp (Acute) Surgical History History of breast augmentation (Acute ~2006) History of colonoscopy (Acute ~2014) History of lumpectomy (Acute) History of tubal ligation (Acute ~1992) Family History Grandfather Diabetes Social History (Updated 12/23/19 @ 11:[address] Eliu Darby MD) Smoking Status: Never smoker alcohol intake: never HPI HPI HPI: Everette DICKINSON, is a 59 F who presents to the office today for HPI HPI Surgical H&P: Yes HPI: Everette DICKINSON, is a 59 F who presents to the office today for Evaluation for endoscopy. Patient was admitted to [facility] on 11/27/2019 she was having nausea vomiting abdominal pain and diarrhea which was going on for approximately 2 months. She was reportedly having bowel movements approximately 15 times a day. She had a gallbladder ultrasound which showed a few polyps. In the emergency department she was noted to have a potassium of 3 normal lactic acid C. difficile which was negative and a CAT scan of the abdomen and pelvis which showed severe enteritis. She reportedly passed out while she was on the toilet. She was treated conservatively she was discharged on 1 week treatment of Cipro and Flagyl and she is following back up with me. Patient is still having some diarrhea her last colonoscopy was 5 years ago. She is still noticing some upper abdominal discomfort at times. Is a grandfather and a grandfather sister who both had colitis in the past. ROS General General: Yes weight change and breast cancer; no appetite, fatigue, colon cancer or weakness HEENT HEENT: No difficulty swallowing, eye injury, eye surgery, swollen glands or hoarseness Endo Endocrine: No thyroid disease, diabetes mellitus, thyroid cancer, Hair loss, heat intolerance or cold intolerance Cardio Cardiovascular: No murmur, pacemaker, heart disease, atrial fibrillation, high blood pressure, heart attack, heart stent, palpitations, shortness of breat with exertion or chest pain Psych Psychiatric: Yes anxiety; no depression or hearing voices Resp Respiratory: No shortness of breath, No sleep apnea, No cough, No COPD, No asthma, No emphysema, No wheezing Gastro Gastrointestinal: Yes abdominal pain, Yes nausea or vomiting, Yes diarrhea, No constipation, No blood in stool, Yes acid reflux, No hemorrhoids, No ulcers, Yes gallbladder problem, No black,tarry stools Layo Hematologic: No blood thinners, No blood disorders, No bleeding, No anemia, No blood clots Neuro Neurologic: No weakness Exam Const General: no acute distress, well developed, well hydrated Orientation: oriented to person, oriented to place, oriented to time [facility] Head: normocephalic, atraumatic Ears: external ears normal Mouth: moist mucous membranes Eyes Sclera: sclerae normal Pupils: normal by confrontation Neck Neck: no lymphadenopathy noted Neck mass: No Thyroid: thyroid normal, symmetrical Chest Chest palpation & inspection: normal inspection of the chest Resp Effort & Inspection: normal respiratory effort Auscultation: clear to auscultation bilaterally Percussion: percussion normal Cardio Rate: regular rate Rhythm: regular rhythm Heart Sounds: no murmurs GI Palpation: soft, no hepatosplenomegaly, no masses, nontender Rectal Exam: other Other: Rectal exam deferred. Extrem General: normal to inspection, no clubbing, cyanosis or edema Assessment & Plan Problems 1. Enteritis K52.9 2. Gastroenteritis K52.9 3. Abdominal discomfort, epigastric R10.13 Plan I have discussed the above with the patient. I have offered the patient colonoscopy As well as an EGD for evaluation. I have explained the risks/benefits of the procedure and described the procedure. I have discussed the risks with the patient, including but not limited to: infection, bleeding, perforation of the GI tract requiring emergency surgery, inability to complete the procedure, injury to any internal organs, complications of anesthesia, etc. - the patient understands and agrees to proceed. I have answered all the patient's questions to the patient's satisfaction and the patient has no further questions. The patient has been given instructions for the colon cleansing preparation. Coding Level of Care Code Off vis,new,level 3 Diagnoses Enteritis K52.9 Gastroenteritis K52.9 Abdominal discomfort, epigastric R10.13 COVID (Procedure Consent) Procedure Criteria Procedure Criteria: Yes Elective The surgeon/proceduralist and patient have discussed in detail the risk of exposure to and/or potential harm posed by the COVID-19 virus with having a surgery/procedure at this time versus the risk of? delaying the surgery/procedure. It is not possible to know either the risk of delaying the surgery or procedure or chance of getting an infection with perfect accuracy, but a joint decision was made between the patient and the surgeon/proceduralist ?to proceed at this time with the scheduled surgery/procedure as indicated on the consent form.
== END ==
PROVIDERS: Anesthesiology; PCP Family Medicine; Referring Provider Family Medicine; Visit Provider Surgery
DX: Z11.59 Encounter for screening for other viral diseases (principal)
CPT/HCPCS: 87635; C9803; U0003

== ENCOUNTER → 2019-12-23 | Outpatient (CLI) | payer OTHER, SELFPAY | END | disposition home or self-care (01) | LOC: LABSPEC 07:32 | PROVIDERS: PCP Family Medicine; Referring Provider Family Medicine; Visit Provider Family Medicine | DX: K52.9 Noninfective gastroenteritis and colitis, unspecified (principal) | CPT/HCPCS: 87177; 87209 ==

== ENCOUNTER → 2019-12-29 | Outpatient (CLI) | payer OTHER, SELFPAY ==
[2019-12-29 12:30] LABS: Absolute Lymphocyte Count 1.33 X10^3/uL (0.83-4.51); Absolute Neutrophil Count 3.1 X10^3/uL (2.0-7.7); Basophil# 0.05 X10^3/uL; Basophil% 0.9 % (0-1); Eosinophil# 0.48 X10^3/uL; Eosinophils% 8.7 % (0-5); Hematocrit 37.2 % (37-47); Lymphocyte # 1.33 X10^3/ul (4.0); Lymphocyte % 24.1 % (19-41); Mean Corp Hgb Conc 32.3 g/dL (32-36); Mean Corpuscular Hgb 29.6 pg (27.0-32.0); Mean Corpuscular Volume 91.6 fL (81-99); Mean Platelet Vol. 9.8 fl (6.2-12.0); Monocyte# 0.59 X10^3/uL; Monocyte% 10.7 % (0-10); NRBC Flagged by Analyzer 0 % (0-5); Neutrophil # 3.06 X10^3/uL (2.7-7.7); Neutrophil % 55.4 % (47-70); POSITIVE MORPHOLOGY YES; Platelet Count 276 K/mm3 (150-450); RBC Distribution Width CV 13.2 % (11.6-14.6); RBC Distribution Width SD 44.2 fl (35.1-43.9); Red Blood Count 4.06 M/mm3 (4.2-5.4); White Blood Count 5.5 K/mm3 (4.4-11.0)
[2019-12-29 12:32] LABS: Differential Indicated SCAN CRITERIA MET
[2019-12-29 12:53] LABS: ALB/GLOB Ratio 1.1 RATIO (0.9-2.4); AST(SGOT) 15 U/L (15-37); Alanine Aminotransfer ALT/SGPT 22 U/L (13-56); Albumin, Serum 3.5 g/dL (3.2-5.0); Alkaline Phosphatase 68 U/L (45-117); Anion Gap 2 (5-15); BUN 13 mg/dL (7-18); BUN/Creat Ratio 14.6 RATIO (10-20); CRP 6.87 mg/L (0.0-3.0); Calcium,Total 8.7 mg/dL (8.5-10.1); Chloride 103 mmol/L (98-107); Creatinine, Serum 0.89 mg/dL (0.55-1.02); EST Glomerular Filtration Rate 69 mL/min (>60); Est Glom Filt Rate - Afr Amer 83 mL/min (>60); Globulin 3.2 g/dL (2.2-4.2); Glucose 80 mg/dL (74-106); Potassium 4.1 mmol/L (3.5-5.1); Protein, Total 6.7 g/dL (6.4-8.2); Sodium Level 136 mmol/L (136-145)
[2019-12-31 15:05] LABS: ANTINUCLEAR ANTIBODIES DIRECT Negative (Negative)
== END | disposition home or self-care (01) ==
LOC: MFPLAB 10:13
PROVIDERS: PCP Family Medicine; Referring Provider Family Medicine; Visit Provider Family Medicine
DX: K52.9 Noninfective gastroenteritis and colitis, unspecified (principal)
CPT/HCPCS: 36415; 80053; 83516; 85025; 86038; 86140

== ENCOUNTER → 2019-12-30 | Outpatient (CLI) | payer OTHER, SELFPAY | END | disposition home or self-care (01) | LOC: LABSPEC 11:34 | PROVIDERS: PCP Family Medicine; Referring Provider Family Medicine; Visit Provider Family Medicine | DX: K52.9 Noninfective gastroenteritis and colitis, unspecified (principal) | CPT/HCPCS: 87177; 87209 ==

== ENCOUNTER → 2019-12-31 | Outpatient (CLI) | payer OTHER, SELFPAY | END | disposition home or self-care (01) | LOC: LABSPEC 11:01 | PROVIDERS: PCP Family Medicine; Referring Provider Family Medicine; Visit Provider Family Medicine | DX: K52.9 Noninfective gastroenteritis and colitis, unspecified (principal) | CPT/HCPCS: 87177; 87209 ==

== ENCOUNTER → 2020-01-01 | Outpatient (CLI) | payer OTHER, SELFPAY | END | disposition home or self-care (01) | LOC: LABSPEC 10:40 | PROVIDERS: PCP Family Medicine; Referring Provider Family Medicine; Visit Provider Family Medicine | DX: K52.9 Noninfective gastroenteritis and colitis, unspecified (principal) | CPT/HCPCS: 87177; 87209 ==

== ENCOUNTER 2020-02-08 08:42 | Day surgery (SDC) | payer OTHER, SELFPAY ==
[2020-02-08] VITALS (7 sets, daily range): BP systolic 92–134; BP diastolic 63–78; PULSE 63–99; RESP 16; TEMP 36.1–36.9; O2SAT 99–100; BMI 19.7
--- NOTE | 2020-02-08 09:00 | HP_ITS ---
Intake Vital Signs 01/15/20 BP 117/67 01/15/20 Blood Pressure Location Rt brachial 01/15/20 Position Sitting 01/15/20 Pulse 67 01/15/20 Pulse Source Monitor 01/15/20 Pulse Oximetry (%) 98 01/15/20 Oxygen Delivery Method room air Intake Visit Reasons: CSCOPE Allergies sulfamethoxazole [From Bactrim] Allergy (Unknown, Verified 12/18/19 08:43) Unknown trimethoprim [From Bactrim] Allergy (Unknown, Verified 12/18/19 08:43) Unknown [facility] Medical History Anxiety (Acute) Arthritis (Acute) Breast cancer (Acute) Diarrhea (Acute) GERD (gastroesophageal reflux disease) (Acute) Gallbladder polyp (Acute) Surgical History History of breast augmentation (Acute ~2006) History of colonoscopy (Acute ~2014) History of lumpectomy (Acute) History of tubal ligation (Acute ~1992) Family History Grandfather Diabetes Social History (Updated 01/15/20 @ 09:[address] Eliu Darby MD) Smoking Status: Never smoker alcohol intake: never HPI HPI Surgical H&P: Yes HPI: Everette DICKINSON, is a 59 F who presents to the office today for Evaluation for endoscopy. Patient was admitted to [facility] on 11/27/2019 she was having nausea vomiting abdominal pain and diarrhea which was going on for approximately 2 months. She was reportedly having bowel movements approximately 15 times a day. She had a gallbladder ultrasound which showed a few polyps. In the emergency department she was noted to have a potassium of 3 normal lactic acid C. difficile which was negative and a CAT scan of the abdomen and pelvis which showed severe enteritis. She reportedly passed out while she was on the toilet. She was treated conservatively she was discharged on 1 week treatment of Cipro and Flagyl and she is following back up with me. Patient is still having some diarrhea her last colonoscopy was 5 years ago. She is still noticing some upper abdominal discomfort at times. Is a grandfather and a grandfather sister who both had colitis in the past. Since I last saw her she has been doing better. Her diarrhea seems to have improved significantly. Her stool cultures were all negative. Exam Const General: no acute distress, well developed, well hydrated Orientation: oriented to person, oriented to place, oriented to time [facility] Head: normocephalic, atraumatic Ears: external ears normal Mouth: moist mucous membranes Eyes Sclera: sclerae normal Pupils: normal by confrontation Neck Neck: no lymphadenopathy noted Neck mass: No Thyroid: thyroid normal, symmetrical Chest Chest palpation & inspection: normal inspection of the chest Resp Effort & Inspection: normal respiratory effort Auscultation: clear to auscultation bilaterally Percussion: percussion normal Cardio Rate: regular rate Rhythm: regular rhythm GI Palpation: soft, no hepatosplenomegaly, no masses, nontender Rectal Exam: other Other: Rectal exam deferred. Extrem General: normal to inspection, no clubbing, cyanosis or edema Assessment & Plan Problems 1. Abdominal discomfort, epigastric R10.13 2. Gastroenteritis K52.9 3. Enteritis K52.9 Plan I have discussed the above with the patient. I have offered the patient colonoscopy As well as an EGD for evaluation. I have explained the risks/benefits of the procedure and described the procedure. I have discussed the risks with the patient, including but not limited to: infection, bleeding, perforation of the GI tract requiring emergency surgery, inability to complete the procedure, injury to any internal organs, complications of anesthesia, etc. - the patient understands and agrees to proceed. I have answered all the patient's questions to the patient's satisfaction and the patient has no further questions. The patient has been given instructions for the colon cleansing preparation. We will be doing a biopsy of the small intestine. We will also be doing random colon biopsies. Coding Level of Care Code Off vis,est,level 2 Diagnoses Abdominal discomfort, epigastric R10.13 Gastroenteritis K52.9 Enteritis K52.9 COVID (Procedure Consent) Procedure Criteria Procedure Criteria: Yes Elective The surgeon/proceduralist and patient have discussed in detail the risk of exposure to and/or potential harm posed by the COVID-19 virus with having a surgery/procedure at this time versus the risk of? delaying the surgery/procedure. It is not possible to know either the risk of delaying the surgery or procedure or chance of getting an infection with perfect accuracy, but a joint decision was made between the patient and the surgeon/proceduralist ?to proceed at this time with the scheduled surgery/procedure as indicated on the consent form. I have re-examined the patient. There are no clinical changes since date of exam.
[2020-02-08] MEDS: Lactated Ringers 1,000 ML 100 ML IV (09:34)
--- NOTE | 2020-02-08 09:45 | IMM_PTH ---
PATIENT: Everette DICKINSON LOC: EN U#:[id number] AGE/SX: 59/F ROOM: RE02/08/[address]: Dr. Eliu Darby MD : 1960 BED: DIS: 02/08/2020 SPEC #: [id number] RECD: 02/08/20 14:23 STATUS: EARL REQ #: [id number] NATY: 02/08/20 09:[address]: Eliu Darby DEPT: IMMUNOHISTOCHEMISTRY RECD BY: Danika García ENTERED: 02/08/20 14:23 SP TYPE: IMMUNO OTHR DR: Dr. Ken Zarco MD Tissues: B - Stomach, NOS Procedures: H Pylori (initial) PHYSICIAN & INSTITUTION [place] [address] SPECIMEN INFORMATION: Tissue Source: B - Antrum biopsy Clinical Info: Abdominal discomfort, epigastric, gastroenteritis, enteritis Specimen Number: [id number] CPT code: 03965 METHODOLOGY: Deparaffinized sections of prefer/formalin-fixed tissue or PAP/DQ stained slides are incubated with monoclonal/polyclonal antibodies/oligonucleotide probes. Localization is made via biotin free immunoperoxidase method. Appropriate controls are performed and reacted as expected. Results on target cell population are indicated in the following table: RESULTS: ANTIBODY / CLONE RESULT Block B H Pylori (polyclonal) negative These tests were developed and their performance characteristics determined by [facility]. They may not have been cleared or approved by the U.S. Food and Drug Administration. The FDA has determined that such clearance or approval is not necessary. INTERPRETATION: B. Antrum, biopsy: Negative for Helicobacter pylori organisms. AM:margarita 02/10/20
--- NOTE | 2020-02-08 09:45 | COLBX_PTH ---
PATIENT: Everette DICKINSON LOC: EN U#:[id number] AGE/SX: 59/F ROOM: RE02/08/[address]: Dr. Eliu Darby MD : 1960 BED: DIS: 02/08/2020 SPEC #: [id number] RECD: 02/08/20 11:40 STATUS: EARL REPattie #: [id number] NATY: 02/08/20 09:[address]: Eliu Darby DEPT: SURGICAL PATHOLOGY RECD BY: Radha Rudolph ENTERED: 02/08/20 13:05 SP TYPE: COLON BX OTHR DR: Dr. Ken Zarco MD Tissues: A - Duodenum, NOS B - Gastric mucous membrane C - COLON BIOPSY Procedures: Trichrome (control) Special Stain Group II Surgery Specimen Level IV HEADER OPERATION: Colonoscopy, EGD ([facility]) PRE-OP DIAGNOSIS: Abdominal discomfort, epigastric, gastroenteritis, enteritis TISSUE SUBMITTED: A - Duodenal biopsies, B - Biopsy for H. pylori, C - Random colonic biopsies MICROSCOPIC DIAGNOSIS A. Duodenum, biopsy: Adenomatous change. B. Gastric mucosa, biopsy: Chronic gastritis. See comment. C. Colon, random biopsy: Lymphocytic colitis. See comment. AM:margarita 02/09/20 COMMENT B. The results of immunohistochemistry for Helicobacter pylori will be reported separately ([id number]). C. Trichrome stain with matched control was used in the evaluation of this case. Case has been reviewed in consultation with Dr. Jacob who concurs with the above diagnosis. IDC:[email or web address] MICROSCOPIC DESCRIPTION Slides are reviewed. GROSS DESCRIPTION A - Received in fixative is one container labeled with the patient's name and designated duodenal biopsy. The specimen consists of one irregular fragment of light zaman soft tissue that measures 0.3 x 0.3 x 0.1 cm. The specimen is totally submitted in one cassette. B - Received in fixative is one container labeled with the patient's name and designated biopsy H. pylori. The specimen consists of one irregular fragment of light zaman soft tissue that measures 0.3 x 0.3 x 0.1 cm. The specimen is totally submitted in one cassette. C - Received in fixative is one container labeled with the patient's name and designated random colonic biopsy. The specimen consists of multiple irregular fragments of light zaman soft tissue that in aggregate measure 2.5 x 1 x 0.1 cm. The specimen is totally submitted in one cassette. / SJ:margarita 02/08/20 TC:3 CPT: 43593 x3, 69600
--- NOTE | 2020-02-08 10:27 | OP.CCLET_ITS ---
02/08/2020 Ken Zarco [address] [place] [address] Re : Upper GI endoscopy procedure for Everette Piedad Dear Dr. Zarco This procedure was performed on Saturday, February 08, 2020. My impressions and recommendations are as follows: Impressions : - Normal esophagus. - Small hiatal hernia. - Erythematous mucosa in the prepyloric region of the stomach. Biopsied. - Normal examined duodenum. Biopsied. Recommendations : - Await pathology results. - Repeat upper endoscopy (date not yet determined) for surveillance. - Return to my office in 1 week. - Continue present medications. My findings are described in the full procedure note, which is enclosed. If I can be of further assistance, please feel free to contact me at Doctor phone number(s): , Fax: [phone], Work: . Sincerely, MD Eliu Cruz MD 02/08/2020 10:27:20 AM This report has been signed electronically.
--- NOTE | 2020-02-08 10:27 | OP.EGD_ITS ---
Patient Name: Everette Herbert Procedure Date: 02/08/2020 9:48 AM Date of : 1960 Age: 59 Procedure: Upper GI endoscopy Indications: Epigastric abdominal pain, Abnormal CT of the GI tract, Nausea with vomiting Providers: Eliu Darby MD Referring MD: Ken Zarco Medicines: See the Anesthesia note for documentation of the administered medications Patient Profile: This is a 59 year old female. Refer to note in patient chart for documentation of history and physical. Complications: No immediate complications. Procedure: Pre-Anesthesia Assessment: - Prior to the procedure, a History and Physical was performed, and patient medications and allergies were reviewed. The patient's tolerance of previous anesthesia was also reviewed. The risks and benefits of the procedure and the sedation options and risks were discussed with the patient. All questions were answered, and informed consent was obtained. Prior Anticoagulants: The patient has taken no previous anticoagulant or antiplatelet agents. ASA Grade Assessment: II - A patient with mild systemic disease. After reviewing the risks and benefits, the patient was deemed in satisfactory condition to undergo the procedure. After obtaining informed consent, the endoscope was passed under direct vision. Throughout the procedure, the patient's blood pressure, pulse, and oxygen saturations were monitored continuously. The gastroscope was introduced through the mouth, and advanced to the second part of duodenum. The upper GI endoscopy was accomplished without difficulty. The patient tolerated the procedure well. Scope In: 9:58:52 AM Scope Out: 10:02:14 AM Total Procedure Duration Time 0 hours 3 minutes 22 seconds Findings: The examined esophagus was normal. A small hiatal hernia was present. Localized mildly erythematous mucosa without bleeding was found in the prepyloric region of the stomach. Biopsies were taken with a cold forceps for Helicobacter pylori testing. The examined duodenum was normal. Biopsies for histology were taken with a cold forceps for evaluation of celiac disease. Impression: - Normal esophagus. - Small hiatal hernia. - Erythematous mucosa in the prepyloric region of the stomach. Biopsied. - Normal examined duodenum. Biopsied. Recommendation: - Await pathology results. - Repeat upper endoscopy (date not yet determined) for surveillance. - Return to my office in 1 week. - Continue present medications. Procedure Code(s): --- Professional --- 48262, Esophagogastroduodenoscopy, flexible, transoral; with biopsy, single or multiple Diagnosis Code(s): --- Professional --- K44.9, Diaphragmatic hernia without obstruction or gangrene K31.89, Other diseases of stomach and duodenum R10.13, Epigastric pain R11.2, Nausea with vomiting, unspecified R93.3, Abnormal findings on diagnostic imaging of other parts of digestive tract CPT copyright 2017 [employer]. All rights reserved. The codes documented in this report are preliminary and upon coder operator review may be revised to meet current compliance requirements. MD Eliu Cruz MD 02/08/2020 10:27:20 AM This report has been signed electronically. Number of Addenda: 0 Note Initiated On: 02/08/2020 9:48 AM
--- NOTE | 2020-02-08 10:30 | OP.CCLET_ITS ---
02/08/2020 Ken Zarco [address] [place] [address] Re : Colonoscopy procedure for Everette Herbert Dear Dr. Zarco This procedure was performed on Saturday, February 08, 2020. My impressions and recommendations are as follows: Impressions : - The entire examined colon is normal. Biopsied. - Diverticulosis in the sigmoid colon. No specimens collected. - The examination was otherwise normal. Recommendations : - Discharge patient to home. - Resume previous diet. - Continue present medications. - Await pathology results. - Repeat colonoscopy in 10 years for surveillance. - Return to my office in 1 week. My findings are described in the full procedure note, which is enclosed. If I can be of further assistance, please feel free to contact me at Doctor phone number(s): , Fax: [phone], Work: . Sincerely, MD Eliu Cruz MD 02/08/2020 10:29:32 AM This report has been signed electronically.
--- NOTE | 2020-02-08 10:30 | OP.COLON_ITS ---
Patient Name: Everette Herbert Procedure Date: 02/08/2020 10:03 AM Date of : 1960 Age: 59 Procedure: Colonoscopy Indications: Abnormal CT of the GI tract, Diarrhea (presumed secondary to inflammatory bowel disease) Providers: Eliu Darby MD Referring MD: Ken Zarco Medicines: See the Anesthesia note for documentation of the administered medications Patient Profile: This is a 59 year old female. Refer to note in patient chart for documentation of history and physical. Last Colonoscopy: 5 years ago. Complications: No immediate complications. Procedure: Pre-Anesthesia Assessment: - Prior to the procedure, a History and Physical was performed, and patient medications and allergies were reviewed. The patient's tolerance of previous anesthesia was also reviewed. The risks and benefits of the procedure and the sedation options and risks were discussed with the patient. All questions were answered, and informed consent was obtained. Prior Anticoagulants: The patient has taken no previous anticoagulant or antiplatelet agents. ASA Grade Assessment: II - A patient with mild systemic disease. After reviewing the risks and benefits, the patient was deemed in satisfactory condition to undergo the procedure. After I obtained informed consent, the scope was passed under direct vision. Throughout the procedure, the patient's blood pressure, pulse, and oxygen saturations were monitored continuously. The colonoscope was introduced through the anus and advanced to the cecum, identified by appendiceal orifice and ileocecal valve. The colonoscopy was performed without difficulty. The patient tolerated the procedure well. The quality of the bowel preparation was good. Scope In: 10:04:50 AM Scope Withdrawal Time 0 hours 9 minutes 4 seconds Scope Out: 10:22:06 AM Total Procedure Duration Time 0 hours 17 minutes 16 seconds Findings: The colon (entire examined portion) appeared normal. Biopsies for histology were taken with a cold forceps from the entire colon for evaluation of microscopic colitis. Scattered small-mouthed diverticula were found in the sigmoid colon. No biopsies or other specimens were collected for this exam. The exam was otherwise without abnormality. Impression: - The entire examined colon is normal. Biopsied. - Diverticulosis in the sigmoid colon. No specimens collected. - The examination was otherwise normal. Recommendation: - Discharge patient to home. - Resume previous diet. - Continue present medications. - Await pathology results. - Repeat colonoscopy in 10 years for surveillance. - Return to my office in 1 week. Procedure Code(s): --- Professional --- 46202, Colonoscopy, flexible; with biopsy, single or multiple Diagnosis Code(s): --- Professional --- R19.7, Diarrhea, unspecified K57.30, Diverticulosis of large intestine without perforation or abscess without bleeding R93.3, Abnormal findings on diagnostic imaging of other parts of digestive tract CPT copyright 2017 [employer]. All rights reserved. The codes documented in this report are preliminary and upon heavy equipment diesel mechanic review may be revised to meet current compliance requirements. MD Eliu Cruz MD 02/08/2020 10:29:32 AM This report has been signed electronically. Number of Addenda: 0 Note Initiated On: 02/08/2020 10:03 AM
== END 2020-02-08 11:43 | disposition home or self-care (01) ==
LOC: EN 08:48 → AC 08:55
PROVIDERS: PCP Family Medicine; Referring Provider Family Medicine; Visit Provider Surgery
PROC: 0DJD8ZZ Inspection of Lower Intestinal Tract, Via Natural or Artificial Opening Endoscopic (ICD-10-PCS; CPT 45378; principal; 2020-02-08 09:40)
DX: K52.832 Lymphocytic colitis (principal); K29.50 Unspecified chronic gastritis without bleeding; K44.9 Diaphragmatic hernia without obstruction or gangrene; K57.30 Diverticulosis of large intestine without perforation or abscess without bleeding; K21.9 Gastro-esophageal reflux disease without esophagitis; M19.90 Unspecified osteoarthritis, unspecified site; F41.9 Anxiety disorder, unspecified; Z79.899 Other long term (current) drug therapy
CPT/HCPCS: 43239; 45380; 87426; 88305; 88313; 88342; C9803; J7120

== ENCOUNTER 2020-06-03 13:26 | Outpatient (RCR) | payer OTHER, SELFPAY ==
[2020-02-08 09:27] VITALS: BMI 19.7
[2020-06-03] MEDS: COVID-19 VACC, MRNA(PFIZER)/PF 30 MCG/0.3 ML SYRINGE IM (13:44)
[2020-06-24] MEDS: COVID-19 VACC, MRNA(PFIZER)/PF 30 MCG/0.3 ML SYRINGE IM (13:32)
== END 2020-08-30 23:59 ==
LOC: IMMUN 13:26
PROVIDERS: PCP Family Medicine; Visit Provider Family Medicine
DX: Z23 Encounter for immunization (principal)
CPT/HCPCS: 0001A; 0002A; 91300

== ENCOUNTER → 2020-11-21 12:09 | Outpatient (CLI) | payer OTHER, SELFPAY ==
[2020-02-08 09:27] VITALS: BMI 19.7
--- NOTE | 2020-11-21 12:11 | BI_ITS ---
MAMMOGRAPHY - BILATERAL SCREENING 3-D TOMOSYNTHESIS REASON FOR EXAM: Female, 60 years old. Screening PERTINENT HISTORY: No significant family history. TECHNIQUE: 2-D mammograms and 3-D Tomosynthesis of the breast (s) were performed. CAD was performed. COMPARISON: 11/20/2019 FINDINGS: The breast composition is heterogeneously dense that can obscure small breast masses. Scattered benign calcifications are seen. No dense spiculated masses or suspicious microcalcifications are identified. No architectural distortion is identified. There is no skin thickening or retraction. Bilateral retroglandular saline implants appear intact. BI/SCRN MAMM (CAD)W/SANDRINE BILAT IMPRESSION: No mammographic signs of malignancy. Routine yearly mammograms recommended. ASSESSMENT CATEGORY: BIRADS Category 1: Negative. A letter regarding these results will be sent to the patient by the facility within 30 days. FOLLOW UP RECOMMENDATION: Yearly follow up mammogram recommended. (A) Approximately 10% of breast cancers are not detected by mammography. A normal mammogram should not delay biopsy of a clinically suspicious abnormality. Electronically Signed: Harman Brady MD at 14:19 EDT Tel , Service support ,
== END ==
PROVIDERS: PCP Family Medicine; Referring Provider Family Medicine; Visit Provider Family Medicine
DX: Z12.31 Encounter for screening mammogram for malignant neoplasm of breast (principal)
CPT/HCPCS: 77063; 77067

== ENCOUNTER → 2021-10-03 | Outpatient (CLI) | payer BC, SELFPAY ==
--- NOTE | 2021-10-03 09:10 | US_ITS ---
STUDY: ULTRASOUND BREAST - RIGHT REASON FOR EXAM: Female, 61 years old. Abnormal screening mammogram. TECHNIQUE: Axial and longitudinal images of the RIGHT breast were performed with a high resolution ultrasound transducer. # OF IMAGES: 10 COMPARISON: Comparison is made with prior mammograms in the day. FINDINGS: RIGHT Breast: The palpable abnormality corresponds to a 1 cm x 0.9 cm x 0.7 cm well-defined hypoechoic solid mass at the 1 o''clock position of the breast at 6 cm from the nipple. Biopsy recommended. US/Breast Limited Unilateral IMPRESSION: The palpable abnormality corresponds to a 1 cm x 0.9 cm x 0.7 cm well-defined hypoechoic solid mass at 1 o''clock position of the breast at 6 cm from nipple. Biopsy recommended. ASSESSMENT CATEGORY: BIRADS Category 4: Suspicious - Biopsy Should Be Considered. A letter regarding these results will be sent to the patient by the facility within 30 days. Electronically Signed: Michel Adler MD at 10:46 EDT ,
--- NOTE | 2021-10-03 09:10 | BI_ITS ---
MAMMOGRAPHY - BILATERAL DIAGNOSTIC REASON FOR EXAM: Female, 61 years old. Right breast lump. PERTINENT HISTORY: Personal history of breast cancer. Prior right lumpectomy with chemotherapy and radiation. Bilateral breast implants. TECHNIQUE: Digital bilateral breast juan f (3D mammographic acquisition) in the CC and MLO projections. 2-D mediolateral oblique (MLO) and craniocaudad (CC) views of both breasts were obtained. CAD: Full Field Digital Mammography with Computer Added Detection was performed. COMPARISON: Comparison is made with prior study 11/21/2020. FINDINGS: Breast Composition: The breasts are heterogeneously dense, which may obscure small masses. The palpable abnormality corresponds to a 1.2 cm x 1 cm irregular nodule in the deep central medial aspect of the right breast. Correlation with ultrasound is recommended. Stable appearance of the bilateral breast implants. No other significant abnormalities are identified. BI/DIAG MAMM W/CAD, BILAT IMPRESSION: The palpable abnormality corresponds to a 1.2 cm x 1 cm irregular nodule in the deep central medial aspect of the right breast. Correlation with ultrasound is recommended. ASSESSMENT CATEGORY: BIRADS Category 0: Incomplete. Need additional imaging evaluation. A letter regarding these results will be sent to the patient by the facility within 30 days. Approximately 10% of breast cancers are not detected by mammography. A normal mammogram should not delay biopsy of a clinically suspicious abnormality. Electronically Signed: Michel Adler MD at 10:44 EDT ,
== END | disposition home or self-care (01) ==
LOC: OPBI 09:07
PROVIDERS: PCP Family Medicine; Referring Provider Family Medicine; Visit Provider Family Medicine
DX: N63.12 Unspecified lump in the right breast, upper inner quadrant (principal); Z92.21 Personal history of antineoplastic chemotherapy; Z98.82 Breast implant status
CPT/HCPCS: 76642; 77062; 77066; G0279

== ENCOUNTER → 2022-08-09 | Outpatient (CLI) | payer BC, SELFPAY ==
[2022-08-09 18:27] LABS: Absolute Lymphocyte Count 1.15 X10^3/uL (0.83-4.51); Absolute Neutrophil Count 2.9 X10^3/uL (2.0-7.7); Basophil# 0.04 X10^3/uL; Basophil% 0.8 % (0-1); Eosinophil# 0.12 X10^3/uL; Eosinophils% 2.5 % (0-5); Hematocrit 39.2 % (37-47); Hemoglobin 12.5 g/dL (12.0-15.0); Lymphocyte # 1.15 X10^3/ul (0.83-4.51); Mean Corp Hgb Conc 31.9 g/dL (32-36); Mean Corpuscular Hgb 29.1 pg (27.0-32.0); Mean Corpuscular Volume 91.2 fL (81-99); Mean Platelet Vol. 9.8 fl (6.2-12.0); Monocyte# 0.52 X10^3/uL; Monocyte% 10.9 % (0-10); NRBC Flagged by Analyzer 0 % (0-5); Neutrophil # 2.94 X10^3/uL (2.7-7.7); Neutrophil % 61.4 % (47-70); Platelet Count 282 K/mm3 (150-450); RBC Distribution Width CV 13.2 % (11.6-14.6); RBC Distribution Width SD 44.7 fl (35.1-43.9); White Blood Count 4.8 K/mm3 (4.4-11.0)
[2022-08-09 19:16] LABS: Anion Gap 7 (5-15); BUN 14 mg/dL (7-18); BUN/Creat Ratio 16.6 RATIO (10-20); Calcium,Total 8.7 mg/dL (8.5-10.1); Chloride 102 mmol/L (98-107); Creatinine, Serum 0.84 mg/dL (0.55-1.02); EST Glomerular Filtration Rate 72 mL/min (>60); Est Glom Filt Rate - Afr Amer 87 mL/min (>60); Glucose 107 mg/dL (74-106); Sodium Level 136 mmol/L (136-145)
== END | disposition home or self-care (01) ==
LOC: MFPLAB 14:13
PROVIDERS: PCP Family Medicine; Visit Provider Family Medicine
DX: F41.1 Generalized anxiety disorder (principal); F41.0 Panic disorder [episodic paroxysmal anxiety]
CPT/HCPCS: 36415; 80048; 85025

== ENCOUNTER → 2022-10-08 | Outpatient (CLI) | payer BC, SELFPAY ==
--- NOTE | 2022-10-08 11:50 | BI_ITS ---
MAMMOGRAPHY - BILATERAL SCREENING 3-D TOMOSYNTHESIS REASON FOR EXAM: Female, 62 years old. Personal history of breast cancer with implants PERTINENT HISTORY: Personal history of breast cancer.. TECHNIQUE: 2-D mammograms and 3-D Tomosynthesis of the breast (s) were performed, along with implant displaced views. CAD was performed. COMPARISON: 11/21/2020 FINDINGS: The breast composition is heterogeneously dense that can obscure small breast masses. There is asymmetric soft tissue density in the central inner right breast with biopsy clip adjacent consistent with patient''s known area of breast cancer. No new suspicious noncalcified mass or calcification. The left breast is stable and unchanged. BI/SCRN MAMM (CAD)W/SANDRINE BILAT IMPRESSION: No mammographic signs of malignancy. Routine yearly mammograms recommended. ASSESSMENT CATEGORY: BIRADS Category 2: Benign. A letter regarding these results will be sent to the patient by the facility within 30 days. FOLLOW UP RECOMMENDATION: Yearly follow up mammogram recommended. (A) Approximately 10% of breast cancers are not detected by mammography. A normal mammogram should not delay biopsy of a clinically suspicious abnormality. Electronically Signed: Calixto Cedeno MD at 13:08 EDT ,
== END | disposition home or self-care (01) ==
LOC: OPBI 11:49
PROVIDERS: PCP Family Medicine; Referring Provider Family Medicine; Visit Provider Family Medicine
DX: Z12.31 Encounter for screening mammogram for malignant neoplasm of breast (principal); Z85.3 Personal history of malignant neoplasm of breast
CPT/HCPCS: 77063; 77067

== ENCOUNTER → 2023-01-16 | Outpatient (CLI) | payer BC, SELFPAY ==
--- NOTE | 2023-01-16 10:47 | BD_ITS ---
STUDY: DUAL ENERGY X-RAY ABSORPTIOMETRY / DXA REASON FOR EXAM: Female, 62 years old. [id number] TECHNIQUE: Bone Mineral Density (BMD) measurements of lumbar spine and bilateral hips were obtained. COMPARISON: Comparison is made with prior study dated September 04, 2018. FINDINGS: Lumbar Spine (L1-L4): g/cm2 (1.098) / T-score (0.5) / Z-score (2.1) Findings are suggestive of normal bone density with a low fracture risk. Left Femur Total: g/cm2 (0.793) / T-score (-1.2) / Z-score (-0.1) Left Femoral Neck: g/cm2 (0.672) / T-score (-1.6) / Z-score (-0.2) Right Femur Total: g/cm2 (0.793) / T-score (-1.2) / Z-score (-0.1) Right Femoral Neck: g/cm2 (0.636) / T-score (-1.9) / Z-score (-0.5) The T-Scores on the most recent prior examination were: Lumbar Spine (L1-L4): There has been worsening of bone density since the previous examination. Left Femur Total: which represents a worsening of 9.2%. Right Femur Total: which represents a worsening of 9.2%. BD/Dexa Bone Density Study IMPRESSION: The patient is considered osteopenic as outlined below according to World [employer] Organization (WHO) criteria with a moderate fracture risk. There has been worsening of bone density since the previous examination. Reference Information: The T-score is the number of standard deviations above or below the standard which is normal for young adults at their peak bone mineral density. The World Health Organization (WHO) interprets the T-scores as follows: Above -1 Normal bone density Between -1 and -2.5 Osteopenia Equal to / or below -2.5 Osteoporosis As a practical clinical guideline, osteopenia may be graded as follows: Mild -1 through -1.5 Moderate -1.6 through -2.0 Severe -2.1 through -2.4 The Z-score is the number of standard deviations above or below age-matched controls. A Z-score of less than -1.5 would be considered abnormal. References: 1. NIH Osteoporosis and Related Bone Diseases www osteo.org 2. International Society for Clinical Densitometry www iscd.org 3. National Osteoporosis Foundation www nof.org Electronically Signed: Michel Adler MD at 14:06 EDT ,
== END | disposition home or self-care (01) ==
PROVIDERS: PCP Family Medicine; Referring Provider Family Medicine; Visit Provider Family Medicine
DX: Z00.00 Encounter for general adult medical examination without abnormal findings (principal); Z78.0 Asymptomatic menopausal state
CPT/HCPCS: 77080

== ENCOUNTER → 2023-01-21 | Outpatient (CLI) | payer BC, SELFPAY ==
[2023-01-21 07:56] LABS: Anion Gap 1 (5-15); BUN 10 mg/dL (7-18); BUN/Creat Ratio 12.1 RATIO (10-20); Calcium,Total 9.2 mg/dL (8.5-10.1); Chloride 105 mmol/L (98-107); Cholesterol 208 mg/dL (200); Creatinine, Serum 0.82 mg/dL (0.55-1.02); EST Glomerular Filtration Rate 74 mL/min (>60); Est Glom Filt Rate - Afr Amer 90 mL/min (>60); Glucose 106 mg/dL (74-106); High Density Lipoprotein 87 mg/dL; Potassium 4.2 mmol/L (3.5-5.1); Sodium Level 135 mmol/L (136-145); Triglycerides 59 mg/dL; Very Low Density Lipoprotein 12 mg/dL (5-40)
[2023-01-21 10:22] LABS: Vitamin D,25 Hydroxy 38.3 ng/mL
== END | disposition home or self-care (01) ==
PROVIDERS: PCP Family Medicine; Referring Provider Family Medicine; Visit Provider Family Medicine
DX: Z00.00 Encounter for general adult medical examination without abnormal findings (principal)
CPT/HCPCS: 36415; 80048; 80061; 82306

== ENCOUNTER → 2023-03-01 | Outpatient (CLI) | payer BC, SELFPAY ==
--- NOTE | 2023-03-01 12:28 | US_ITS ---
STUDY: ULTRASOUND BREAST - LEFT REASON FOR EXAM: Female, 62 years old. Left axillary mass. Palpable lump. TECHNIQUE: Axial and longitudinal images of the LEFT breast were performed with a high resolution ultrasound transducer. # OF IMAGES: 33 COMPARISON: None. FINDINGS: LEFT Breast: The left axilla was examined with ultrasound. Multiple hypoechoic heterogeneous masses with increased vascularity are seen in the left axilla suggestive of multiple lymph nodes. The largest lymph node measures 3.5 cm x 3.2 size by 2.1 cm. Biopsy recommended. US/Breast Limited Unilateral IMPRESSION: Multiple complex hypoechoic masses seen in the left axilla suggestive of enlarged lymph nodes. Increased vascularity is seen. Biopsy recommended. ASSESSMENT CATEGORY: BIRADS Category 4: Suspicious - Biopsy Should Be Considered. A letter regarding these results will be sent to the patient by the facility within 30 days. Electronically Signed: Michel Adler MD at 13:57 EST ,
== END | disposition home or self-care (01) ==
LOC: OPUS 12:20
PROVIDERS: PCP Family Medicine; Referring Provider Family Medicine; Visit Provider Family Medicine
DX: R22.32 Localized swelling, mass and lump, left upper limb (principal)
CPT/HCPCS: 76642

== ENCOUNTER → 2023-04-09 | Outpatient (CLI) | payer BC, SELFPAY ==
--- OUTSIDE RECORDS SUMMARY | 2023-04-09 07:20 | XMS RPT_ITS | CCD ---
Author Name Unknown Address [address] [place] [address] Organization [facility] Care Team Providers Care Psychiatric Technician Name Role Phone Cogar MORTARMAN, Belgica N Unavailable [phone] Cogar MORTARMAN, Belgica N Unavailable Cogar MORTARMAN, Belgica N Unavailable RUSIA, DEEPAM Unavailable Unavailable RUSIA, DEEPAM Unavailable Unavailable Cogar MORTARMAN, Belgica N Unavailable Haroldo ANAND, Haile Wren Primary Care Provider Haile Zarco MD Primary Care Provider Haile Zarco MD Primary Care Provider Haile Zarco MD Primary Care Provider VALE CARPENTER Attending Unavailable ZARCO, HAILE A Referring Unavailable ZARCO, HAILE A Primary Care Unavailable ELIU DARBY Referring Unavailable ELIU DARBY Attending Unavailable ZARCO, HAILE A Primary Care Unavailable ZARCO, HAILE A Primary Care Unavailable MASCI, HELLEN A Referring Unavailable ZARCO, HAILE A Primary Care Unavailable ALEJANDRO CHAPARRO MD Attending Unavailable MASCI, HELLEN A Referring Unavailable ZARCO, HAILE A Primary Care Unavailable MASCI, HELLEN A Referring Unavailable MASCI, HELLEN A Attending Unavailable ZARCO, HAILE A Primary Care Unavailable VALE CARPENTER Attending Unavailable ZARCO, HAILE A Primary Care Unavailable Allergies Allergy Classification Reported Allergen(s) Allergy Type Date of Onset Reaction(s) Facility (4 sources) sulfamethoxazole / trimethoprim drug allergy 7 bloated/diarrhe a [facility] Work Phone: (11 sources) Sulfamethoxazole; Translations: [SULFAMETHOXAZOLE] Drug Allergy 4 GI Upset [facility] (5 sources) Trimethoprim; Translations: [TRIMETHOPRIM] Drug Allergy 0 Other: See Comments [facility] Medications Completed/Discontinued Medications Medication Drug Class(es) Dates Sig (Normalized) Sig (Original) amino acids/multivitamin (MULTIVITAMIN-AMINO ACIDS ORAL) (4 sources) amino acids/multivitamin (MULTIVITAMIN-AMINO ACIDS ORAL) Take by mouth. No amino acids 0 Active Problems Active Problems Problem Classification Problem Date Documented Da te Episodic/Chronic Cancer of breast (1 source) Malignant neoplasm of unspecified site of left female breast; Translations: [Malignant neoplasm of left breast in female, estrogen receptor negative, unspecified site of breast (HCC) (HCC)] Onset: 4 Chronic Cancer of breast (1 source) Personal history of malignant neoplasm of breast; Translations: [History of right breast cancer] Onset: 4 Episodic Esophageal disorders (1 source) Gastroesophageal reflux disease; Translations: [Gastro-esophageal reflux disease without esophagitis] Chronic Gastrointestinal hemorrhage (10 sources) Rectal hemorrhage; Translations: [Hemorrhage of anus and rectum] 06-02-2015 Episodic Lymphadenitis (2 sources) Axillary lymphadenopathy; Translations: [Localized enlarged lymph nodes] Onset: 3 03-13-2023 Episodic Nausea and vomiting (2 sources) Nausea; Translations: [Nausea] Episodic Other eye disorders (1 source) Vitreous hemorrhage Onset: 8 Chronic Other gastrointestinal disorders (1 source) Diarrhea; Translations: [Diarrhea, unspecified] Episodic Other screening for suspected conditions (not mental disorders or infectious disease) (2 sources) Mammography abnormal; Translations: [Other abnormal and inconclusive findings on diagnostic imaging of breast] Episodic Residual codes; unclassified (1 source) Influenza-like symptoms; Translations: [Other general symptoms and signs] Episodic Residual codes; unclassified (1 source) Estrogen receptor negative status [ER-]; Translations: [Malignant neoplasm of left breast in female, estrogen receptor negative, unspecified site of breast (HCC) (HCC)] Onset: 4 Episodic Secondary malignancies (1 source) Secondary and unspecified malignant neoplasm of axilla and upper limb lymph nodes; Translations: [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)] Onset: 4 Chronic Unclassified (2 sources) Unknown / UNK(Unknown) Onset: 8 Viral infection (1 source) Acute viral disease; Translations: [Viral infection, unspecified] Episodic Past or Other Problems Problem Classification Problem Date Documented Da te Episodic/Chronic Abdominal pain (3 sources) Epigastric pain; Translations: [Epigastric pain] Onset: 06-19-2022 Episodic Other gastrointestinal disorders (10 sources) Constipation; Translations: [Constipation, unspecified] Onset: 09-19-2006 09-19-2006 Episodic Other gastrointestinal disorders (1 source) Diarrhea, unspecified; Translations: [Diarrhea, unspecified type] Onset: 06-19-2022 Episodic Other upper respiratory disease (5 sources) Congestion of nasal sinus; Translations: [Nasal discharge] Onset: 08-22-2016 08-22-2016 Episodic Other upper respiratory disease (1 source) Nasal discharge; Translations: [Postnasal drip] Onset: 09-05-2016 09-05-2016 Episodic Other upper respiratory infections (6 sources) Acute maxillary sinusitis; Translations: [Upper respiratory infection] Onset: 08-22-2016 08-22-2016 Episodic Results Test Name Value Interpretation Reference Range Facil ity Vital Signs Date Time Vital Sign Value Performing Clinician Facility 03-12-2023 09:57-0500 Body height 163.8 cm Vale Carpenter MD Work Phone: [facility] 03-12-2023 09:57-0500 Body temperature 97.2 [degF] Vale Carpenter MD Work Phone: [facility] 03-12-2023 09:57-0500 Body weight 56.43 kg Vale Carpenter MD Work Phone: [facility] 03-12-2023 09:57-0500 Diastolic blood pressure 60 mm[Hg] Vale Carpenter MD Work Phone: [facility] 03-12-2023 09:57-0500 Heart rate 68 /min Vale Carpenter MD Work Phone: [facility] 03-12-2023 09:57-0500 SaO2% (BldA) [Mass fraction] 99 % Vale Carpenter MD Work Phone: [facility] 03-12-2023 09:57-0500 Systolic blood pressure 108 mm[Hg] Vale Carpenter MD Work Phone: [facility] 06-19-2022 08:41-0400 Body height 165.1 cm Eliu Darby MD Work Phone: [facility] 06-19-2022 08:41-0400 Body temperature 97.11 [degF] Eliu Darby MD Work Phone: [facility] 06-19-2022 08:41-0400 Body weight 55.61 kg Eliu Darby MD Work Phone: [facility] 06-19-2022 08:41-0400 Diastolic blood pressure 78 mm[Hg] Eliu Darby MD Work Phone: [facility] 06-19-2022 08:41-0400 Heart rate 77 /min Eliu Darby MD Work Phone: [facility] 06-19-2022 08:41-0400 SaO2% (BldA) [Mass fraction] 97 % Eliu Darby MD Work Phone: [facility] 06-19-2022 08:41-0400 Systolic blood pressure 108 mm[Hg] Eliu Darby MD Work Phone: [facility] 06-12-2022 09:36-0400 Body temperature 98.71 [degF] Karen Praisler-Wood EDUCATION TECHNICIAN.LABELER Work Phone: [facility] 06-12-2022 09:36-0400 Body weight 55.07 kg Karen Praisler-Wood EDUCATION TECHNICIAN.LABELER Work Phone: [facility] 06-12-2022 09:36-0400 Diastolic blood pressure 64 mm[Hg] Karen Praisler-Wood EDUCATION TECHNICIAN.LABELER Work Phone: [facility] 06-12-2022 09:36-0400 Heart rate 82 /min Karen Praisler-Wood EDUCATION TECHNICIAN.LABELER Work Phone: [facility] 03-21-2023 09:36-0400 Respiratory rate 16 /min Karengabby Alexandre-Mao EDUCATION TECHNICIAN.LABELER Work Phone: [facility] 06-12-2022 09:36-0400 SaO2% (BldA) [Mass fraction] 97 % Karen Badilloroxannaler-Wood EDUCATION TECHNICIAN.LABELER Work Phone: [facility] 06-12-2022 09:36-0400 Systolic blood pressure 130 mm[Hg] Karen Hannahler-Mao EDUCATION TECHNICIAN.LABELER Work Phone: [facility] 02-02-2022 09:18-0500 Body height 166.4 cm Eliu Darby MD Work Phone: [facility] 02-02-2022 09:18-0500 Body temperature 97.81 [degF] Eliu Darby MD Work Phone: [facility] 02-02-2022 09:18-0500 Body weight 57.06 kg Eliu Darby MD Work Phone: [facility] 02-02-2022 09:18-0500 Diastolic blood pressure 64 mm[Hg] Eliu Darby MD Work Phone: [facility] 02-02-2022 09:18-0500 Heart rate 86 /min Eliu Darby MD Work Phone: [facility] 02-02-2022 09:18-0500 SaO2% (BldA) [Mass fraction] 98 % Eliu Darby MD Work Phone: [facility] 02-02-2022 09:18-0500 Systolic blood pressure 122 mm[Hg] Eliu Darby MD Work Phone: [facility] 09-18-2021 11:27-0400 Body temperature 98.29 [degF] Joseph Vann MD Work Phone: [facility] 09-18-2021 11:27-0400 Body weight 55.34 kg Joseph Vann MD Work Phone: [facility] 09-18-2021 11:27-0400 Diastolic blood pressure 68 mm[Hg] Joseph Vann MD Work Phone: [facility] 09-18-2021 11:27-0400 Heart rate 80 /min Joseph Vann MD Work Phone: [facility] 09-18-2021 11:27-0400 Respiratory rate 16 /min Joseph Vann MD Work Phone: [facility] 09-18-2021 11:27-0400 SaO2% (BldA) [Mass fraction] 99 % Joseph Vann MD Work Phone: [facility] 09-18-2021 11:27-0400 Systolic blood pressure 110 mm[Hg] Joseph Vann MD Work Phone: [facility] 09-05-2016 18:00-0400 BMI (Body Mass Index) 19.97 kg/m2 Belgica Daleelicia CHAVEZ [facility] Work Phone: 09-05-2016 18:00-0400 Body Temperature 98.5 [degF] Belgica Henry KATHY [facility] Work Phone: 09-05-2016 18:00-0400 BP Diastolic 74 mm[Hg] Belgica Henry MORTARMAN [facility] Work Phone: 09-05-2016 18:00-0400 BP Systolic 116 mm[Hg] Belgica Henry MORTARMAN [facility] Work Phone: 09-05-2016 18:00-0400 Height 165.1 cm Belgica Daleelicia CHAVEZ [facility] Work Phone: 09-05-2016 18:00-0400 Pulse (Heart Rate) 71 /min Belg[place] Daleelicia CHAVEZ [facility] Work Phone: 09-05-2016 18:00-0400 Pulse Oximetry 97 % Belgica Daleelicia CHAVEZ [facility] Work Phone: 09-05-2016 18:00-0400 Respiratory Rate 16 /min Belgica Daleelicia CHAVEZ [facility] Work Phone: 09-05-2016 18:00-0400 Weight 54.43 kg Belgica Henry LPN [facility] Work Phone: 08-22-2016 17:59-0400 BMI (Body Mass Index) 20 kg/m2 Belgica Henry LPN [facility] Work Phone: 08-22-2016 17:59-0400 Body Temperature 100.1 [degF] Belgica Henry LPN [facility] Work Phone: 08-22-2016 17:59-0400 BP Diastolic 60 mm[Hg] Belgica Henry LPN [facility] Work Phone: 08-22-2016 17:59-0400 BP Systolic 108 mm[Hg] Belgica Henry LPN [facility] Work Phone: 08-22-2016 17:59-0400 Height 165.1 cm Belgica Henry LPN [facility] Work Phone: 08-22-2016 17:59-0400 Pulse (Heart Rate) 93 /min Belgica Henry LPN [facility] Work Phone: 08-22-2016 17:59-0400 Pulse Oximetry 98 % Belgica Henry LPN [facility] Work Phone: 08-22-2016 17:59-0400 Respiratory Rate 16 /min Belgica Henry LPN [facility] Work Phone: 08-22-2016 17:59-0400 Weight 54.52 kg Belgica Henry LPN [facility] Work Phone: Encounters Encounter Date Encounter Type Care Provider Facility Start: 04-08-2023 End: 04-08-2023 ambulatory HELLEN KUO [facility] Start: 04-04-2023 End: 04-04-2023 ambulatory ALEJANDRO CHAPARRO MD Facility:[facility] Start: 04-03-2023 End: 04-03-2023 ambulatory HELLEN KUO Facility:[facility] Start: 03-13-2023 End: 03-14-2023 ambulatory VALE CARPENTER Facility:[facility] Start: 03-12-2023 End: 03-12-2023 ambulatory VALE CARPENTER Facility:[facility] Start: 03-12-2023 End: 03-12-2023 Patient encounter procedure Vale Carpenter MD Work Phone: General Surgery Procedures Date Procedure Procedure Detail Performing Clinician Start: 10-09-2021 US BREAST BIOPSY RIG HT (POC) SURG USE ONLY Eliu Darby MD Work Phone: Start: 10-09-2021 Diagnostic mammograp hy computer-aided detcj uni Eliu Darby MD Work Phone: Start: 02-08-2020 Colonoscopy Joseph shore MD Work Phone: Start: 07-21-2015 Colonoscopy Vale Crapenter MD Work Phone: Start: 05-10-2015 Mammography Joseph shore MD Work Phone: Plan of Treatment Date Care Activity Detail Author Start: 02-07-2030 Colonoscopy COLONOSCOPY [facility] Start: 02-07-2030 COLORECTAL CANCER SCREENING COLORECTAL CANCER SCREENING [facility] Start: 09-11-2027 Urine microalbumin profile DTaP,Tdap,Td Vaccine (2 - Td or Tdap) [facility] Start: 07-20-2025 Screening for malignant neoplasm of colon [facility] Start: 11-23-2022 Covid-19 Vaccine ( season) Covid-19 Vaccine ( season) [facility] Start: 11-23-2022 Influenza vaccination Influenza Vaccine (#1) [facility] Start: 03-25-2022 DEPRESSION ASSESSMENT DEPRESSION ASSESSMENT [facility] Start: 11-23-2021 Influenza vaccination INFLUENZA (#1) [facility] Start: 09-18-2021 End: 10-02-2021 SARS-CoV-2 (COVID-19) RNA [Presence] in Respiratory specimen by OBI with probe detection 2019 CORONAVIRUS Microbiology Routine Nausea Expected: 09/18/2021, Expires: 10/02/2021 [facility] Work Phone: Immunizations Immunization Date Immunization Notes Care Provider Fa cility 11-29-2021 COVID-19 vaccine, fu ll dose (MODERNA) Joseph Vann MD Work Phone: [facility] Work Phone: 12-20-2020 influenza virus vaccine, unspecified formulation Vale Carpenter MD Work Phone: [facility] 06-24-2020 COVID-19 vaccine, ag e 12+ yr (PFIZER-BIONTECH - PURPLE TOP) Joseph Vann MD Work Phone: [facility] Work Phone: 06-03-2020 COVID-19 vaccine, ag e 12+ yr (PFIZER-BIONTECH - PURPLE TOP) Joseph Vann MD Work Phone: [facility] Work Phone: 01-05-2015 influenza virus vaccine, unspecified formulation Joseph Vann MD Work Phone: [facility] Payers Date Payer Category Payer Unknown FRANCY MAST [facility] ZOEY [id number] 2021-Present [phone] [id number] [facility] [id number] 2021 Unknown FRANCY MAST [facility] ZOEY [id number] 2021-Present [phone] [address] [place] [id number] [facility] [id number] 2021 Unknown [id number] 2003 Private Health Insurance [id number] Social History Date Type Detail Facility Start: 02-02-2022 [facility] Work Phone: End: 08-24-1983 History of tobacco use Current smoker [facility] Work Phone: End: 08-24-1983 History of tobacco use Cigarette Smoker [facility] Work Phone: Start: 09-18-2021 End: 03-12-2023 Alcohol intake Current non-drinker of alcohol (finding) [facility] Start: 1960 Sex Assigned At Not on file [facility] Start: 09-29-2021 End: 02-02-2022 Exposure to SARS-CoV-2 (event) Not sure [facility] Start: 02-02-2022 Tobacco use and exposure Smokeless tobacco non-user [facility] Start: 02-02-2022 Tobacco Comment in her early 2 0's, none now [facility] Start: 03-12-2023 History of Social function [facility] Start: 03-12-2023 Tobacco use panel [facility] National Score (1-100), lower number is lower risk 63 [facility] Clinical Notes 09-18-2021 to 04-08-2023 Vale Carpenter MD - 03/12/2023 10:13 AM Shira Leonard LPN - 03/12/2023 9:57 AM Tiffany Darby MD - 06/19/2022 8:54 AM EDTTelephone Encounter - Marcie Babb RN - 06/13/2022 8:46 AM EDT Note Date & Type Note Facility 04-08-2023 Note HNO ID: [id number] Author: KIA MOE RT(R) Service: ? Author Type: Technologist Type: Progress Notes Filed: 04/08/2023 09:20 Note Text: Radiology Service Progress Note DATE OF SERVICE: April 08, 2023 TIME: 9:19 AM PATIENT IDENTITY VERIFICATION COMPLETED USING TWO (2) STANDARD IDENTIFIERS: Name and Date of confirmed by patient verbally. FALL SCREENING: Has the patient had 2 falls in the last year or 1 fall with injury or currently using an Ambulatory Assistive Device (Walker, Cane, Wheelchair, Crutches, etc.)? No PATIENT GENDER DATA: Female. status: : No status: NO. PATIENT RELEVANT IMPLANT DATA REVIEWED: Yes ALLERGIES: Reviewed and unchanged CONTRAST ALLERGY: NO. EXAM: MRI - CONTRAST TYPE: GROUP II PERIPHERAL IV DATA: Ambulatory: A peripheral IV was started in the Left antecubital site with a Angio cath: 22 gauge. RADIOLOGY DEPARTMENT: MR; Exam(s) Completed: Head: Routine Brain SIGNATURE: Kia Moe, RT(R) PATIENT NAME: Carrie Herbert DATE: April 08, 2023 TIME: 9:19 AM [facility] 04-03-2023 Note HNO ID: [id number] Author: HELLEN KUO, DO Service: ? Author Type: Physician Type: Progress Notes Filed: 04/03/2023 16:29 Note Text: Patient referred by Dr. Carpenter for breast cancer. The impression and plan will be communicated by way of the shared electronic record or faxed under separate cover letter. HPI: The patient is a 62 yo female with PMH as outlined below. Had RIGHT breast cancer at age 31 managed with lumpectomy and ALND (recalls 9 LNs) followed by chemotherapy and radiation. ER negative. Treated with AC x4. Tolerated well. Bilateral breast augmentation with implants about 10 years following initial diagnosis of breast cancer. Patient had bilateral screening mammogram in September 2022. It was interpreted as a BI-RADS Category 2 study. She was noted to have heterogeneously dense breasts. Noticed lump left axilla about 2 months ago. US left breast 03/01/2023: The left axilla was examined with ultrasound. Multiple hypoechoic heterogeneous masses with increased vascularity are seen in the left axilla suggestive of multiple lymph nodes. The largest lymph node measures 3.5 cm x 3.2 size by 2.1 cm. Biopsy recommended. IMPRESSION: Multiple complex hypoechoic masses seen in the left axilla suggestive of enlarged lymph nodes. Increased vascularity is seen. Biopsy recommended. 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 - Microcalcifications are present. Diagnosis Comment The specimen consists of cores of lymph node tissue involved by metastatic mammary carcinoma (provisional Gunjan grade 3). The carcinoma cells express cytokeratin AE1/AE3, GATA3, TRPS 1, and SOX10, and are negative for PAX8, TTF-1, and CDX2, supporting mammary origin. Breast biomarker studies have been requested and results will be reported separately in a linked report. 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 Diagnosed with lymphocytic colitis about 3 years ago. Abdominal pain/diarrhea. Treated with probiotic and magnesium supplement. PAST MEDICAL HISTORY Diagnosis Date Condyloma acuminatum 03/25/1983 no history of recurrance since treatment COVID-19 09/2021 Lymphocytic colitis Malignant neoplasm of upper-outer quadrant of female breast (HCC) 05/24/1991 breast cancer treated with chemo and radiation Mass of axilla, left Mental disorder Rectal bleeding Unspecified constipation 03/25/2004 Constipation PAST SURGICAL HISTORY Procedure Laterality Date CAUTERY CERVIX CRYOCAUTERY INITIAL/REPEAT 1983 treated for condylomata COLONOSCOPY 01/2020 COLONOSCOPY FLX DX W/COLLJ SPEC WHEN PFRMD 07/21/2015 Colonoscopy COLONOSCOPY SCREENING 2011 EGD 01/2020 LIG/TRNSXJ FLP TUBE ABDL/VAG APPR UNI/BI 1992 LUMPECTOMY/RADIOTHERAPY DIAG MAMM/A10 1991 RIGHT PAST SURGICAL HISTORY OF 06/2004 breast recontruction rt and bilateral implants PAST SURGICAL HISTORY OF lazer surgery on face PROPH RETINAL DTCHMNT W/O DRG PHOTOCOAGULATION Right torn retina repair REMV CATARACT EXTRACAP,INSERT LENS ALLERGIES Allergen Reactions Bactrim [Sulfametho* GI Upset Trimethoprim Other: See Comments Current Outpatient Medications Medication Sig cholecalciferol, vitamin D3, (VITAMIN D3 ORAL) Take 1,000 Units by mouth once daily. CALCIUM ORAL Take 800 mg by mouth once daily. amino acids/multivitamin (MULTIVITAMIN-AMINO ACIDS ORAL) Take 1 tablet by mouth once daily. No amino acids ondansetron orally disintegrating (ZOFRAN ODT) 4 mg disintegrating tablet Take 1 tablet by mouth every 6 hours as needed for nausea/vomiting. Magnesium 250 mg tab Take 250 mg by mouth once daily. B.animalis,bifid,infantis,long (PROBIOTIC 4X ORAL) Take 1 tablet by mouth once daily. PAXIL 30 MG TAB Take 30 mg by mouth once daily. cimetidine (TAGAMET) 200 mg tablet Take 200 mg by mouth four times daily. (Patient not taking: Reported on 03/12/2023) Potassium 99 mg tab Take by mouth. (Patient not taking: No sig reported) No current facility-administered medications for this visit. Social History Tobacco Use Smoking status: Former Years: 1.5 Types: Cigarettes Quit date: 08/24/1983 Years since quittin.6 Smokeless tobacco: Never Tobacco comments: in her early 20's, none now Vaping Use Vaping Use: Never used Substance Use Topics Alcohol use: No Drug use: No Family History Problem Relation Age of Onset other (constipation) Mother other (atrial fib) Father Hypertension Maternal Grandmother Aneurysm Maternal Grandmother brain aneurysm age 64 No Known Proble (more content not included)... [facility] 03-13-2023 Note HNO ID: [id number] Author: Vael Carpenter MD Service: ? Author Type: Physician Type: Progress Notes Filed: 03/14/2023 8:18 PM Note Text: Shellie is here for US guided needle core left axillary lymph node biopsy. PROCEDURE NOTE Ultrasound guided needle core left axillary lymph node biopsy Description of procedure - After informed consent was obtained, patient was brought to the Procedure Room. Appropriate time out protocol was followed. The patient was placed in the supine position. The ultrasound machine was used for identification of the lesion and facilitation of the biopsy in real time imaging. The lesion was identified in the left axilla - the largest lymph node was chosen and measured out. The lesion was measured at about 3 cm in size. The transducer was held in the axial position. The skin was cleansed with a surgical skin preparation. The skin and subcutaneous tissues were infiltrated with 1% xylocaine. A total of 7 ml was used. A small skin gary was made distal to the lesion with an 11 blade scalpel. A 14G Bard needle core device was directed to the lymph node via US guidance Ultrasound imaging pictures were captured. The needle core device was fired into the lesion several times to ensure adequate sampling was achieved and this was visualized using the US transducer. A marker clip was placed at the biopsy site, using ultrasound transducer guidance. Hemostasis was achieved by pressure. No evidence of active bleeding was noted after pressure applied for a period of time. Steristrips were placed to reapproximate the wound edges. Sterile dressing was applied over this. Patient tolerated procedure well. Complications - none EBL - minimal PLAN: Wound care instructions given by clinic staff. Patient to follow up with me next week for discussion of results. Patient acknowledges the above. [facility] 03-12-2023 Note HNO ID: [id number] Author: Vale Carpenter MD Service: ? Author Type: Physician Type: Progress Notes Filed: 03/13/2023 7:36 PM Note Text: Carrie Herbert 1960 REFERRING PHYSICIAN: Haile Zarco MD CHIEF COMPLAINT: Consult (Left axilla biopsy, abnormal US) HPI: The patient is a 62 year old female presents with left axillary adenopathy. She denies trauma or infections or animal scratches to her left UE She had a previous right breast biopsy with benign findings, she has a history of right breast cancer done about 30 years ago - s/p lumpectomy and XRT. She has noted left axillary adenopathy in the past two weeks - also notes that it is painful. She denies night sweats. She denies fevers. She notes no breast or ovarian cancer in her family. Her gynecological history is as follows: menarche onset at age 9, , first at age 17, BCP use initially age 18 for about 8 y, LMP menopause at age 45 US left breast - 03/01/2023 - left axilla multiple lymph nodes with larges 3.5 x 3.2 cm from [facility] Bilateral mammograms 3D normal 10/08/2022 PAST MEDICAL HISTORY Diagnosis Date Condyloma acuminatum 03/25/1983 no history of recurrance since treatment COVID-19 09/2021 Lymphocytic colitis Malignant neoplasm of upper-outer quadrant of female breast (HCC) 05/24/1991 breast cancer treated with chemo and radiation Mass of axilla, left Mental disorder Rectal bleeding Unspecified constipation 03/25/2004 Constipation PAST SURGICAL HISTORY Procedure Laterality Date CAUTERY CERVIX CRYOCAUTERY INITIAL/REPEAT 1983 treated for condylomata COLONOSCOPY 01/2020 COLONOSCOPY FLX DX W/COLLJ SPEC WHEN PFRMD 07/21/2015 Colonoscopy COLONOSCOPY SCREENING 2011 EGD 01/2020 LIG/TRNSXJ FLP TUBE ABDL/VAG APPR UNI/BI 1992 LUMPECTOMY/RADIOTHERAPY DIAG MAMM/A10 1991 RIGHT PAST SURGICAL HISTORY OF 06/2004 breast recontruction rt and bilateral implants PAST SURGICAL HISTORY OF lazer surgery on face PROPH RETINAL DTCHMNT W/O DRG PHOTOCOAGULATION Right torn retina repair REMV CATARACT EXTRACAP,INSERT LENS Current Outpatient Medications Medication Sig cholecalciferol, vitamin D3, (VITAMIN D3 ORAL) Take by mouth once daily. CALCIUM ORAL Take 800 mg by mouth once daily. amino acids/multivitamin (MULTIVITAMIN-AMINO ACIDS ORAL) Take by mouth. No amino acids ondansetron orally disintegrating (ZOFRAN ODT) 4 mg disintegrating tablet Take 1 tablet by mouth every 6 hours as needed for nausea/vomiting. Magnesium 250 mg tab Take 250 mg by mouth once daily. PAXIL 30 MG TAB Take 30 mg by mouth once daily. cimetidine (TAGAMET) 200 mg tablet Take 200 mg by mouth four times daily. (Patient not taking: Reported on 03/12/2023) B.animalis,bifid,infantis,long (PROBIOTIC 4X ORAL) Take by mouth once daily. (Patient not taking: Reported on 02/02/2022) Potassium 99 mg tab Take by mouth. (Patient not taking: No sig reported) No current facility-administered medications for this visit. ALLERGIES: Bactrim [Sulfamethoxazole] and Trimethoprim PERSONAL HISTORY: Social History Tobacco Use Smoking status: Former Years: 1.5 Types: Cigarettes Quit date: 08/24/1983 Years since quittin.5 Smokeless tobacco: Never Tobacco comments: in her early 20's, none now Vaping Use Vaping Use: Never used Substance Use Topics Alcohol use: No Drug use: No FAMILY HISTORY Problem Relation Age of Onset other (constipation) Mother Diabetes Other GRANDFATHER Hypertension Maternal Grandmother Aneurysm Maternal Grandmother brain aneurysm age 64 Stroke Paternal Grandmother two light strokes 74 year of age The review of systems data was entered by the nurse and reviewed by fl Nursing Notes: Shira Hartman LPN 03/12/2023 10:02 AM Signed REVIEW OF SYSTEMS: General: The patient denies fatigue, denies weight loss, denies weight gain, denies feeling hot, and denies feelings of cold. Eyes: The patient denies glaucoma, notes eye injury/surgery, wears glasses or contacts. Ear/Nose/Throat: The patient notes allergies, denies hayfever, denies ear infections, and denies bloody noses. Cardiovascular: The patient denies chest pain, denies heart disease, denies high blood pressure,denies cardiac stent, denies prior heart attack, denies irregular heart beat, denies high cholesterol, denies poor circulation, denies heart failure, other cardiac issues, denies claudication, denies cold feet, denies peripheral arterial stent. Respiratory: The patient denies tuberculosis, denies pneumonia, denies frequent cough, denies pulmonary embolism, denies shortness of breath, and denies coughing up blood. Gastrointestinal: The patient denies difficulty swallowing, denies acid reflux, denies ulcers, denies vomiting, denies jaundice/hepatitis, denies gallbladder problems, denies black or tarry stools, denies hemorrhoids, denies bleeding from rectum, denies diverticulitis, denies (more content not included)... [facility] 03-12-2023 History of Present illness Narrative Carrie Herbert 1960 REFERRING PHYSICIAN: Haile Zarco MD CHIEF COMPLAINT: Consult (Left axilla biopsy, abnormal US) HPI: The patient is a 62 year old female presents with left axillary adenopathy. She denies trauma or infections or animal scratches to her left UE She had a previous right breast biopsy with benign findings, she has a history of right breast cancer done about 30 years ago - s/p lumpectomy and XRT. She has noted left axillary adenopathy in the past two weeks - also notes that it is painful. She denies night sweats. She denies fevers. She notes no breast or ovarian cancer in her family. Her gynecological history is as follows: menarche onset at age 9, , first at age 17, BCP use initially age 18 for about 8 y, LMP menopause at age 45 US left breast - 03/01/2023 - left axilla multiple lymph nodes with larges 3.5 x 3.2 cm from [facility] Bilateral mammograms 3D normal 10/08/2022 PAST MEDICAL HISTORY Diagnosis Date Condyloma acuminatum 03/25/1983 no history of recurrance since treatment COVID-19 09/2021 Lymphocytic colitis Malignant neoplasm of upper-outer quadrant of female breast (HCC) 05/24/1991 breast cancer treated with chemo and radiation Mass of axilla, left Mental disorder Rectal bleeding Unspecified constipation 03/25/2004 Constipation PAST SURGICAL HISTORY Procedure Laterality Date CAUTERY CERVIX CRYOCAUTERY INITIAL/REPEAT 1983 treated for condylomata COLONOSCOPY 01/2020 COLONOSCOPY FLX DX W/COLLJ SPEC WHEN PFRMD 07/21/2015 Colonoscopy COLONOSCOPY SCREENING 2012 EGD 01/2020 LIG/TRNSXJ FLP TUBE ABDL/VAG APPR UNI/BI 1992 LUMPECTOMY/RADIOTHERAPY DIAG MAMM/A10 1992 RIGHT PAST SURGICAL HISTORY OF 06/2004 breast recontruction rt and bilateral implants PAST SURGICAL HISTORY OF lazer surgery on face PROPH RETINAL DTCHMNT W/O DRG PHOTOCOAGULATION Right torn retina repair REMV CATARACT EXTRACAP,INSERT LENS Current Outpatient Medications Medication Sig cholecalciferol, vitamin D3, (VITAMIN D3 ORAL) Take by mouth once daily. CALCIUM ORAL Take 800 mg by mouth once daily. amino acids/multivitamin (MULTIVITAMIN-AMINO ACIDS ORAL) Take by mouth. No amino acids ondansetron orally disintegrating (ZOFRAN ODT) 4 mg disintegrating tablet Take 1 tablet by mouth every 6 hours as needed for nausea/vomiting. Magnesium 250 mg tab Take 250 mg by mouth once daily. PAXIL 30 MG TAB Take 30 mg by mouth once daily. cimetidine (TAGAMET) 200 mg tablet Take 200 mg by mouth four times daily. (Patient not taking: Reported on 03/12/2023) B.animalis,bifid,infantis,long (PROBIOTIC 4X ORAL) Take by mouth once daily. (Patient not taking: Reported on 02/02/2022) Potassium 99 mg tab Take by mouth. (Patient not taking: No sig reported) No current facility-administered medications for this visit. ALLERGIES: Bactrim [Sulfamethoxazole] and Trimethoprim PERSONAL HISTORY: Social History Tobacco Use Smoking status: Former Years: 1.5 Types: Cigarettes Quit date: 08/24/1983 Years since quittin.5 Smokeless tobacco: Never Tobacco comments: in her early 20's, none now Vaping Use Vaping Use: Never used Substance Use Topics Alcohol use: No Drug use: No FAMILY HISTORY Problem Relation Age of Onset other (constipation) Mother Diabetes Other GRANDFATHER Hypertension Maternal Grandmother Aneurysm Maternal Grandmother brain aneurysm age 64 Stroke Paternal Grandmother two light strokes 74 year of age The review of systems data was entered by the nurse and reviewed by fl Nursing Notes: Shira Hartman LPN 03/12/2023 10:02 AM Signed REVIEW OF SYSTEMS: General: The patient denies fatigue, denies weight loss, denies weight gain, denies feeling hot, and denies feelings of cold. Eyes: The patient denies glaucoma, notes eye injury/surgery, wears glasses or contacts. Ear/Nose/Throat: The patient notes allergies, denies hayfever, denies ear infections, and denies bloody noses. Cardiovascular: The patient denies chest pain, denies heart disease, denies high blood pressure,denies cardiac stent, denies prior heart attack, denies irregular heart beat, denies high cholesterol, denies poor circulation, denies heart failure, other cardiac issues, denies claudication, denies cold feet, denies peripheral arterial stent. Respiratory: The patient denies tuberculosis, denies pneumonia, denies frequent cough, denies pulmonary embolism, denies shortness of breath, and denies coughing up blood. Gastrointestinal: The patient denies difficulty swallowing, denies acid reflux, denies ulcers, denies vomiting, denies jaundice/hepatitis, denies gallbladder problems, denies black or tarry stools, denies hemorrhoids, denies bleeding from rectum, denies diverticulitis, denies constipation, denies diarrhea, denies loss of stool control, and denies hernias. Kidney/Bladder: The patient denies kidney stones, denies urine infections, and denies bloody urine. Skin: The patient denies a history of skin cancer, denies bleeding/changing moles, and denies a history of skin rash. Neurologic: The patient denies a history of epilepsy/convulsions, denies headaches, denies head/spinal injuries, and denies stroke/TIA. Psychiatric: The patient denies psychiatric medications, denies depression, and denies voices, denies substance abuse. Endocrine: The patient denies thyroid disorders, denies diabetes, and denies hormonal problems. Hematologic: The patient denies a history of bruising, denies bleeding, and denies anemia, denies blood clots. Infections: The patient denies a history of measles and mumps, denies rheumatic fever, and denies sexually transmitted diseases. Musculoskeletal: The patient denies back pain/injury, denies back problems, denies sciatica, denies knee/foot trouble, denies arthritis, or denies gout. When was patient's last Mammogram screening? 2022 [facility] Last Colonoscopy: 01/2020 Shira HartmanKATHY PHYSICAL EXAMINATION: General: The patient is 62 year old female, well nourished, well hydrated in no acute distress. The patient is oriented to time, place, and person. VITALS: Blood pressure 108/60, pulse 68, temperature 36.2 C (97.2 F), height 163.8 cm (5' 4.5 ), weight 56.4 kg (124 lb 6.4 oz), last menstrual period 12/30/2007, SpO2 99%. Body mass index is 21.02 kg/m . Head - Normocephalic. EOM intact with sclera clear and no icterus noted. Mouth with mucus membranes moist. Neck - supple with no jugular venous distention noted. Trachea is midline. No thyroid enlargement or thyroid nodules detected. No masses noted. Chest/breast - no asymmetry of breasts noted, no suspicious skin lesions noted slight bruise inner upper right breast, no nipple discharge and both nipples everted, no breast masses noted Lungs - clear to auscultation. Normal breath sounds. No rales/rhonchi/wheezing noted. No labored breathing noted, such as retractions. No cough heard. Heart - normal S1 and S2 auscultated. No rubs/clicks/murmurs noted. Regular rate. Abdomen - soft and benign. . Extremities - no calf tenderness noted. No pitting edema noted. Skin - normal skin integrity. Lymph - no cervical adenopathy detected, no supraclavicular adenopathy detected, no right axillary adenopathy detected - left axillary adenopathy is noted Neurological - gait normal, no focal deficits noted Psych - calm and appropriate Assessment IMPRESSION: left axillary adenopathy PLAN: I have discussed the above with the patient. I have offered US guided left axillary lymph node needle core biopsy. I have explained the procedure to the patient. To be done in the office using US guidance with local anesthesia. I have counseled the patient as to the risks of the procedure, including but not limited to: infection, bleeding, injury to any blood vessels/nerves, scar tissue, wound infections, complications of anesthesia, etc. - the patient understands. The patient wishes to proceed. Will schedule for this tomorrow. I have answered all questions to the patient s satisfaction and the patient has no further questions. I have confirmed and edited as necessary, the PFSH and ROS obtained by others. Consultation requested by Dr. Haile Zarco for an opinion regarding patient's left axillary adenopathy. My final recommendations will be communicated back to the requesting physician by way of shared Medical record or letter to requesting physician via [place] mail. . Diagnoses: (R59.0) Lymphadenopathy, axillary (primary encounter diagnosis) Medical Decision Making: Problems: Moderate: New problem with uncertain prognosis Data: Unique test result(s) reviewed: 1 Risk: Low: Low risk from testing/treatment Medical Decision Making Level: 3 - [place] Carpenter MD documented in this encounter [facility] 03-12-2023 Nurse Note REVIEW OF SYSTEMS: General: The patient denies fatigue, denies weight loss, denies weight gain, denies feeling hot, and denies feelings of cold. Eyes: The patient denies glaucoma, notes eye injury/surgery, wears glasses or contacts. Ear/Nose/Throat: The patient notes allergies, denies hayfever, denies ear infections, and denies bloody noses. Cardiovascular: The patient denies chest pain, denies heart disease, denies high blood pressure,denies cardiac stent, denies prior heart attack, denies irregular heart beat, denies high cholesterol, denies poor circulation, denies heart failure, other cardiac issues, denies claudication, denies cold feet, denies peripheral arterial stent. Respiratory: The patient denies tuberculosis, denies pneumonia, denies frequent cough, denies pulmonary embolism, denies shortness of breath, and denies coughing up blood. Gastrointestinal: The patient denies difficulty swallowing, denies acid reflux, denies ulcers, denies vomiting, denies jaundice/hepatitis, denies gallbladder problems, denies black or tarry stools, denies hemorrhoids, denies bleeding from rectum, denies diverticulitis, denies constipation, denies diarrhea, denies loss of stool control, and denies hernias. Kidney/Bladder: The patient denies kidney stones, denies urine infections, and denies bloody urine. Skin: The patient denies a history of skin cancer, denies bleeding/changing moles, and denies a history of skin rash. Neurologic: The patient denies a history of epilepsy/convulsions, denies headaches, denies head/spinal injuries, and denies stroke/TIA. Psychiatric: The patient denies psychiatric medications, denies depression, and denies voices, denies substance abuse. Endocrine: The patient denies thyroid disorders, denies diabetes, and denies hormonal problems. Hematologic: The patient denies a history of bruising, denies bleeding, and denies anemia, denies blood clots. Infections: The patient denies a history of measles and mumps, denies rheumatic fever, and denies sexually transmitted diseases. Musculoskeletal: The patient denies back pain/injury, denies back problems, denies sciatica, denies knee/foot trouble, denies arthritis, or denies gout. When was patient's last Mammogram screening? 2022 [facility] Last Colonoscopy: 01/2020 Shira Hartman LPN documented in this encounter [facility] 06-19-2022 Note HNO ID: [id number] Author: Eliu Darby MD Service: ? Author Type: Physician Type: Progress Notes Filed: 06/19/2022 9:10 AM Note Text: HISTORY AND PHYSICAL Carrie Herbert 1960 REFERRING PHYSICIAN: Eliu Darby MD CHIEF COMPLAINT: Consult (EGD) HPI: The patient is a 62 year old female with a complaint of Epigastric pain (primary encounter diagnosis) Diarrhea, unspecified type. She was seen in urgent care on 06/12/2022. She had had a 3-day history of chills feeling tired nausea diarrhea and body aches. She had not been complaining of any fevers. She did take some Zofran for nausea at home. She has had some problems with constipating symptoms and actually took some magnesium citrate and that seemed to bring the symptoms on and to ahead. Her COVID test were negative. Over this weekend she is gotten better has had no further symptoms. PAST MEDICAL HISTORY Diagnosis Date Condyloma acuminatum 03/25/1983 no history of recurrance since treatment COVID-19 09/2021 Lymphocytic colitis Malignant neoplasm of upper-outer quadrant of female breast (HCC) 05/24/1991 breast cancer treated with chemo and radiation Mental disorder Rectal bleeding Unspecified constipation 03/25/2004 Constipation PAST SURGICAL HISTORY Procedure Laterality Date CAUTERY CERVIX CRYOCAUTERY INITIAL/REPEAT 1983 treated for condylomata COLONOSCOPY 01/2020 COLONOSCOPY FLX DX W/COLLJ SPEC WHEN PFRMD 07/21/2015 Colonoscopy COLONOSCOPY SCREENING 2011 EGD 01/2020 LIG/TRNSXJ FLP TUBE ABDL/VAG APPR UNI/BI 1992 LUMPECTOMY/RADIOTHERAPY DIAG MAMM/A10 1991 RIGHT PAST SURGICAL HISTORY OF 06/2004 breast recontruction rt and bilateral implants PAST SURGICAL HISTORY OF lazer surgery on face PROPH RETINAL DTCHMNT W/O DRG PHOTOCOAGULATION Right torn retina repair REMV CATARACT EXTRACAP,INSERT LENS Current Outpatient Medications Medication Sig amino acids/multivitamin (MULTIVITAMIN-AMINO ACIDS ORAL) Take by mouth. ondansetron orally disintegrating (ZOFRAN ODT) 4 mg disintegrating tablet Take 1 tablet by mouth every 6 hours as needed for nausea/vomiting. cimetidine (TAGAMET) 200 mg tablet Take 200 mg by mouth four times daily. Magnesium 250 mg tab Take 250 mg by mouth once daily. (Patient not taking: Reported on 02/02/2022) B.animalis,bifid,infantis,long (PROBIOTIC 4X ORAL) Take by mouth once daily. (Patient not taking: Reported on 02/02/2022) Potassium 99 mg tab Take by mouth. (Patient not taking: No sig reported) PAXIL 30 MG TAB Take 30 mg by mouth once daily. No current facility-administered medications for this visit. ALLERGIES: Bactrim [Sulfamethoxazole] and Trimethoprim PERSONAL HISTORY: Social History Tobacco Use Smoking status: Former Years: 1.50 Types: Cigarettes Quit date: 08/24/1983 Years since quittin.8 Smokeless tobacco: Never Tobacco comments: in her early 20's, none now Vaping Use Vaping Use: Never used Substance Use Topics Alcohol use: No Drug use: No FAMILY HISTORY: FAMILY HISTORY Problem Relation Age of Onset other (constipation) Mother Diabetes Other GRANDFATHER Hypertension Maternal Grandmother Aneurysm Maternal Grandmother brain aneurysm age 64 Stroke Paternal Grandmother two light strokes 74 year of age Review of Systems Constitutional: Positive for chills and malaise/fatigue. Negative for fever. Respiratory: Negative. Cardiovascular: Negative. Gastrointestinal: Positive for diarrhea and nausea. Negative for abdominal pain and vomiting. Musculoskeletal: Positive for myalgias. PHYSICAL EXAMINATION: General: The patient is 62 year old female, well nourished, well hydrated in no acute distress. The patient is oriented to time, place, and person. VITALS: Blood pressure 108/78, pulse 77, temperature 36.2 ?C (97.1 ?F), height 165.1 cm (5' 5 ), weight 55.6 kg (122 lb 9.6 oz), last menstrual period 12/30/2007, SpO2 97 %. HEENT: Normal cephalic, ataumatic, pupils are equally round, sclera are anicteric, mucous membranes are moist, oropharynx is clear. Neck has no masses, asymmetry or lymphadenopathy. Thyroid is unremarkable. Respiratory: Clear to auscultation and percussion. Normal respiratory excursion and pattern. Cardiac: Examination is regular rate and rhythm. Abdominal exam: Soft, nontender, with no palpable masses. No hepatosplenomegaly. No palpable hernias. Rectal exam: exam deferred Extremities: no clubbing, cyanosis or edema. No adenopathy. Other: LABORATORY VALUES: As Noted RADIOLOGIC STUDIES: As Noted Assessment IMPRESSION: Epigastric pain (primary encounter diagnosis) Diarrhea, unspecified type PLAN: At this point I do not think there is anything we need to do. If her upper abdominal symptoms were to recur I think it would make sense to repeat an EGD and do biopsies of duodenum stomach and distal and midesophagus. She has a diagnosis of lymphocytic colitis but I do (more content not included)... [facility] 06-19-2022 History of Present illness Narrative HISTORY AND PHYSICAL Carrie Shelliekenny Herbert 1960 REFERRING PHYSICIAN: Eliu Darby MD CHIEF COMPLAINT: Consult (EGD) HPI: The patient is a 62 year old female with a complaint of Epigastric pain (primary encounter diagnosis) Diarrhea, unspecified type. She was seen in urgent care on 06/12/2022. She had had a 3-day history of chills feeling tired nausea diarrhea and body aches. She had not been complaining of any fevers. She did take some Zofran for nausea at home. She has had some problems with constipating symptoms and actually took some magnesium citrate and that seemed to bring the symptoms on and to ahead. Her COVID test were negative. Over this weekend she is gotten better has had no further symptoms. PAST MEDICAL HISTORY Diagnosis Date Condyloma acuminatum 03/25/1983 no history of recurrance since treatment COVID-19 09/2021 Lymphocytic colitis Malignant neoplasm of upper-outer quadrant of female breast (HCC) 05/24/1991 breast cancer treated with chemo and radiation Mental disorder Rectal bleeding Unspecified constipation 03/25/2004 Constipation PAST SURGICAL HISTORY Procedure Laterality Date CAUTERY CERVIX CRYOCAUTERY INITIAL/REPEAT 1983 treated for condylomata COLONOSCOPY 01/2020 COLONOSCOPY FLX DX W/COLLJ SPEC WHEN PFRMD 07/21/2015 Colonoscopy COLONOSCOPY SCREENING 2011 EGD 01/2020 LIG/TRNSXJ FLP TUBE ABDL/VAG APPR UNI/BI 1992 LUMPECTOMY/RADIOTHERAPY DIAG MAMM/A10 1991 RIGHT PAST SURGICAL HISTORY OF 06/2004 breast recontruction rt and bilateral implants PAST SURGICAL HISTORY OF lazer surgery on face PROPH RETINAL DTCHMNT W/O DRG PHOTOCOAGULATION Right torn retina repair REMV CATARACT EXTRACAP,INSERT LENS Current Outpatient Medications Medication Sig amino acids/multivitamin (MULTIVITAMIN-AMINO ACIDS ORAL) Take by mouth. ondansetron orally disintegrating (ZOFRAN ODT) 4 mg disintegrating tablet Take 1 tablet by mouth every 6 hours as needed for nausea/vomiting. cimetidine (TAGAMET) 200 mg tablet Take 200 mg by mouth four times daily. Magnesium 250 mg tab Take 250 mg by mouth once daily. (Patient not taking: Reported on 02/02/2022) B.animalis,bifid,infantis,long (PROBIOTIC 4X ORAL) Take by mouth once daily. (Patient not taking: Reported on 02/02/2022) Potassium 99 mg tab Take by mouth. (Patient not taking: No sig reported) PAXIL 30 MG TAB Take 30 mg by mouth once daily. No current facility-administered medications for this visit. ALLERGIES: Bactrim [Sulfamethoxazole] and Trimethoprim PERSONAL HISTORY: Social History Tobacco Use Smoking status: Former Years: 1.50 Types: Cigarettes Quit date: 08/24/1983 Years since quittin.8 Smokeless tobacco: Never Tobacco comments: in her early 20's, none now Vaping Use Vaping Use: Never used Substance Use Topics Alcohol use: No Drug use: No FAMILY HISTORY: FAMILY HISTORY Problem Relation Age of Onset other (constipation) Mother Diabetes Other GRANDFATHER Hypertension Maternal Grandmother Aneurysm Maternal Grandmother brain aneurysm age 64 Stroke Paternal Grandmother two light strokes 74 year of age Review of Systems Constitutional: Positive for chills and malaise/fatigue. Negative for fever. Respiratory: Negative. Cardiovascular: Negative. Gastrointestinal: Positive for diarrhea and nausea. Negative for abdominal pain and vomiting. Musculoskeletal: Positive for myalgias. PHYSICAL EXAMINATION: General: The patient is 62 year old female, well nourished, well hydrated in no acute distress. The patient is oriented to time, place, and person. VITALS: Blood pressure 108/78, pulse 77, temperature 36.2 C (97.1 F), height 165.1 cm (5' 5 ), weight 55.6 kg (122 lb 9.6 oz), last menstrual period 12/30/2007, SpO2 97 %. HEENT: Normal cephalic, ataumatic, pupils are equally round, sclera are anicteric, mucous membranes are moist, oropharynx is clear. Neck has no masses, asymmetry or lymphadenopathy. Thyroid is unremarkable. Respiratory: Clear to auscultation and percussion. Normal respiratory excursion and pattern. Cardiac: Examination is regular rate and rhythm. Abdominal exam: Soft, nontender, with no palpable masses. No hepatosplenomegaly. No palpable hernias. Rectal exam: exam deferred Extremities: no clubbing, cyanosis or edema. No adenopathy. Other: LABORATORY VALUES: As Noted RADIOLOGIC STUDIES: As Noted Assessment IMPRESSION: Epigastric pain (primary encounter diagnosis) Diarrhea, unspecified type PLAN: At this point I do not think there is anything we need to do. If her upper abdominal symptoms were to recur I think it would make sense to repeat an EGD and do biopsies of duodenum stomach and distal and midesophagus. She has a diagnosis of lymphocytic colitis but I do not think that is what her symptoms were I actually think she just had a virus that went through her system. Diagnoses: (R10.13) Epigastric pain (primary encounter diagnosis) (R19.7) Diarrhea, unspecified type Return to Clinic: The patient is instructed to follow-up with me as needed. Eliu Darby III, MD documented in this encounter [facility] 06-13-2022 Miscellaneous Notes Pt called and is notified of providers results. Pt voices understanding. Marcie Babb RN Left message for patient with negative results.Lynn Cedeño LPN Negative for COVID and flu documented in this encounter [facility] 06-12-2022 Note HNO ID: [id number] Author: Karen Vasquez APRN.LABELER Service: ? Author Type: Nurse Practitioner Type: Progress Notes Filed: 06/12/2022 9:49 AM Note Text: Subjective HPI Carrie Herbert is a 62 year old female who presents with 3 days of chills, feeling tired, nausea, diarrhea, body aches. She has not had a fever. 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 She took zofran at home for nausea. Review of Systems Constitutional: Positive for chills and malaise/fatigue. Negative for fever. Respiratory: Negative. Cardiovascular: Negative. Gastrointestinal: Positive for diarrhea and nausea. Negative for abdominal pain and vomiting. Musculoskeletal: Positive for myalgias. BP 130/64 Pulse 82 Temp 37.1 ?C (98.7 ?F) (Tympanic) Resp 16 Wt 55.1 kg (121 lb 6.4 oz) LMP 12/30/2007 SpO2 97% BMI 19.89 kg/m? PAST MEDICAL HISTORY Diagnosis Date Condyloma acuminatum 03/25/1983 no history of recurrance since treatment COVID-19 09/2021 Lymphocytic colitis Malignant neoplasm of upper-outer quadrant of female breast (HCC) 05/24/1991 breast cancer treated with chemo and radiation Mental disorder Rectal bleeding Unspecified constipation 03/25/2004 Constipation PAST SURGICAL HISTORY Procedure Laterality Date CAUTERY CERVIX CRYOCAUTERY INITIAL/REPEAT 1983 treated for condylomata COLONOSCOPY 01/2020 COLONOSCOPY FLX DX W/COLLJ SPEC WHEN PFRMD 07/21/2015 Colonoscopy EGD 01/2020 LIG/TRNSXJ FLP TUBE ABDL/VAG APPR UNI/BI 1992 LUMPECTOMY/RADIOTHERAPY DIAG MAMM/A10 1991 RIGHT PAST SURGICAL HISTORY OF 06/2004 breast recontruction rt and bilateral implants PAST SURGICAL HISTORY OF lazer surgery on face PROPH RETINAL DTCHMNT W/O DRG PHOTOCOAGULATION Right torn retina repair REMV CATARACT EXTRACAP,INSERT LENS ALLERGIES Bactrim [Sulfamethoxazole] and Trimethoprim MEDICATIONS ondansetron orally disintegrating (ZOFRAN ODT) 4 mg disintegrating tablet Take 1 tablet by mouth every 6 hours as needed for nausea/vomiting. cimetidine (TAGAMET) 200 mg tablet Take 200 mg by mouth four times daily. PAXIL 30 MG TAB Take 30 mg by mouth once daily. amino acids/multivitamin (MULTIVITAMIN-AMINO ACIDS ORAL) Take by mouth. Magnesium 250 mg tab Take 250 mg by mouth once daily. (Patient not taking: Reported on 02/02/2022) B.animalis,bifid,infantis,long (PROBIOTIC 4X ORAL) Take by mouth once daily. (Patient not taking: Reported on 02/02/2022) Potassium 99 mg tab Take by mouth. (Patient not taking: No sig reported) FAMILY HISTORY Problem Relation Age of Onset other (constipation) Mother Diabetes Other GRANDFATHER Hypertension Maternal Grandmother Aneurysm Maternal Grandmother brain aneurysm age 64 Stroke Paternal Grandmother two light strokes 74 year of age Social History Tobacco Use Smoking status: Former Years: 1.50 Types: Cigarettes Quit date: 08/24/1983 Years since quittin.8 Smokeless tobacco: Never Tobacco comments: in her early 20's, none now Vaping Use Vaping Use: Never used Substance Use Topics Alcohol use: No Drug use: No Objective Physical Exam Vitals and nursing note reviewed. Constitutional: General: She is not in acute distress. Appearance: Normal appearance. She is not toxic-appearing. HENT: Right Ear: Tympanic membrane, ear canal and external ear normal. Left Ear: Tympanic membrane, ear canal and external ear normal. Nose: Nose normal. Mouth/Throat: Mouth: Mucous membranes are moist. Pharynx: Oropharynx is clear. Uvula midline. No oropharyngeal exudate or posterior oropharyngeal erythema. Cardiovascular: Rate and Rhythm: Normal rate and regular rhythm. Heart sounds: Normal heart sounds. Pulmonary: Effort: Pulmonary effort is normal. No respiratory distress. Breath sounds: Normal breath sounds. No wheezing or rales. Musculoskeletal: Cervical back: Neck supple. Lymphadenopathy: Cervical: No cervical adenopathy. Skin: General: Skin is warm and dry. Findings: No erythema or rash. Neurological: Mental Status: She is alert. ASSESSMENT/PLAN: 1. Flu-like symptoms - ICD9: 780.99, ICD10: R68.89 (primary diagnosis) - COVID WITH FLUA+B, ROUTINE 2. Nausea - ICD9: 787.02, ICD10: R11.0 - ONDANSETRON 4 MG DISINTEGRATING TABLET - Follow-up with your PCP in 3-5 days if symptoms have not improved or sooner if symptoms worsen - Discussed red flags and need for immediate medical evaluation if any occur. - Discussed supportive care treatment with fluids, rest and analgesia. - Discussed expected course of illness Karen Vasquez APRN.[facility] 06-12-2022 History of Present illness Narrative Subjective HPI Carrie Herbert is a 62 year old female who presents with 3 days of chills, feeling tired, nausea, diarrhea, body aches. She has not had a fever. 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 She took zofran at home for nausea. Review of Systems Constitutional: Positive for chills and malaise/fatigue. Negative for fever. Respiratory: Negative. Cardiovascular: Negative. Gastrointestinal: Positive for diarrhea and nausea. Negative for abdominal pain and vomiting. Musculoskeletal: Positive for myalgias. BP 130/64 Pulse 82 Temp 37.1 C (98.7 F) (Tympanic) Resp 16 Wt 55.1 kg (121 lb 6.4 oz) LMP 12/30/2007 SpO2 97% BMI 19.89 kg/m PAST MEDICAL HISTORY Diagnosis Date Condyloma acuminatum 03/25/1983 no history of recurrance since treatment COVID-19 09/2021 Lymphocytic colitis Malignant neoplasm of upper-outer quadrant of female breast (HCC) 05/24/1991 breast cancer treated with chemo and radiation Mental disorder Rectal bleeding Unspecified constipation 03/25/2004 Constipation PAST SURGICAL HISTORY Procedure Laterality Date CAUTERY CERVIX CRYOCAUTERY INITIAL/REPEAT 1983 treated for condylomata COLONOSCOPY 01/2020 COLONOSCOPY FLX DX W/COLLJ SPEC WHEN PFRMD 07/21/2015 Colonoscopy EGD 01/2020 LIG/TRNSXJ FLP TUBE ABDL/VAG APPR UNI/BI 1991 LUMPECTOMY/RADIOTHERAPY DIAG MAMM/A10 1991 RIGHT PAST SURGICAL HISTORY OF 06/2004 breast recontruction rt and bilateral implants PAST SURGICAL HISTORY OF lazer surgery on face PROPH RETINAL DTCHMNT W/O DRG PHOTOCOAGULATION Right torn retina repair REMV CATARACT EXTRACAP,INSERT LENS ALLERGIES Bactrim [Sulfamethoxazole] and Trimethoprim MEDICATIONS ondansetron orally disintegrating (ZOFRAN ODT) 4 mg disintegrating tablet Take 1 tablet by mouth every 6 hours as needed for nausea/vomiting. cimetidine (TAGAMET) 200 mg tablet Take 200 mg by mouth four times daily. PAXIL 30 MG TAB Take 30 mg by mouth once daily. amino acids/multivitamin (MULTIVITAMIN-AMINO ACIDS ORAL) Take by mouth. Magnesium 250 mg tab Take 250 mg by mouth once daily. (Patient not taking: Reported on 02/02/2022) B.animalis,bifid,infantis,long (PROBIOTIC 4X ORAL) Take by mouth once daily. (Patient not taking: Reported on 02/02/2022) Potassium 99 mg tab Take by mouth. (Patient not taking: No sig reported) FAMILY HISTORY Problem Relation Age of Onset other (constipation) Mother Diabetes Other GRANDFATHER Hypertension Maternal Grandmother Aneurysm Maternal Grandmother brain aneurysm age 64 Stroke Paternal Grandmother two light strokes 74 year of age Social History Tobacco Use Smoking status: Former Years: 1.50 Types: Cigarettes Quit date: 08/24/1983 Years since quittin.8 Smokeless tobacco: Never Tobacco comments: in her early 20's, none now Vaping Use Vaping Use: Never used Substance Use Topics Alcohol use: No Drug use: No Objective Physical Exam Vitals and nursing note reviewed. Constitutional: General: She is not in acute distress. Appearance: Normal appearance. She is not toxic-appearing. HENT: Right Ear: Tympanic membrane, ear canal and external ear normal. Left Ear: Tympanic membrane, ear canal and external ear normal. Nose: Nose normal. Mouth/Throat: Mouth: Mucous membranes are moist. Pharynx: Oropharynx is clear. Uvula midline. No oropharyngeal exudate or posterior oropharyngeal erythema. Cardiovascular: Rate and Rhythm: Normal rate and regular rhythm. Heart sounds: Normal heart sounds. Pulmonary: Effort: Pulmonary effort is normal. No respiratory distress. Breath sounds: Normal breath sounds. No wheezing or rales. Musculoskeletal: Cervical back: Neck supple. Lymphadenopathy: Cervical: No cervical adenopathy. Skin: General: Skin is warm and dry. Findings: No erythema or rash. Neurological: Mental Status: She is alert. ASSESSMENT/PLAN: 1. Flu-like symptoms - ICD9: 780.99, ICD10: R68.89 (primary diagnosis) - COVID WITH FLUA+B, ROUTINE 2. Nausea - ICD9: 787.02, ICD10: R11.0 - ONDANSETRON 4 MG DISINTEGRATING TABLET - Follow-up with your PCP in 3-5 days if symptoms have not improved or sooner if symptoms worsen - Discussed red flags and need for immediate medical evaluation if any occur. - Discussed supportive care treatment with fluids, rest and analgesia. - Discussed expected course of illness Karen Vasquez APRN.CNP documented in this encounter [facility] 06-12-2022 Instructions Karen Vasquez APRN.CNP - 06/12/2022 9:47 AM EDT ASSESSMENT/PLAN: 1. Flu-like symptoms - ICD9: 780.99, ICD10: R68.89 (primary diagnosis) - COVID WITH FLUA+B, ROUTINE 2. Nausea - ICD9: 787.02, ICD10: R11.0 - ONDANSETRON 4 MG DISINTEGRATING TABLET - Follow-up with your PCP in 3-5 days if symptoms have not improved or sooner if symptoms worsen - Discussed red flags and need for immediate medical evaluation if any occur. - Discussed supportive care treatment with fluids, rest and analgesia. - Discussed expected course of illness Karen Vasquez APRN.LABELER documented in this encounter [facility] 02-16-2022 Miscellaneous Notes Patient chose to cancel EGD since symptoms have improved. Both procedure and follow up appointment with Marcie Schaefer have been cancelled. documented in this encounter [facility] 02-02-2022 Nurse Note REVIEW OF SYSTEMS: General: The patient denies fatigue, denies weight loss, denies weight gain, denies feeling hot, and denies feelings of cold. Eyes: The patient denies glaucoma, NOTES eye injury/surgery, wears glasses or contacts. Ear/Nose/Throat: The patient NOTES allergies, denies hayfever, denies ear infections, and denies bloody noses. Cardiovascular: The patient denies chest pain, denies heart disease, denies high blood pressure,denies cardiac stent, denies prior heart attack, denies irregular heart beat, denies high cholesterol, denies poor circulation, denies heart failure, other cardiac issues, denies claudication, denies cold feet, denies peripheral arterial stent. Respiratory: The patient denies tuberculosis, denies pneumonia, denies frequent cough, denies pulmonary embolism, denies shortness of breath, and denies coughing up blood. Gastrointestinal: The patient denies difficulty swallowing, NOTES acid reflux, denies ulcers, denies vomiting, denies jaundice/hepatitis, denies gallbladder problems, denies black or tarry stools, denies hemorrhoids, denies bleeding from rectum, denies diverticulitis, NOTES constipation, NOTES diarrhea, denies loss of stool control, and denies hernias. Kidney/Bladder: The patient denies kidney stones, denies urine infections, and denies bloody urine. Skin: The patient denies a history of skin cancer, denies bleeding/changing moles, and denies a history of skin rash. Neurologic: The patient denies a history of epilepsy/convulsions, denies headaches, denies head/spinal injuries, and denies stroke/TIA. Psychiatric: The patient denies psychiatric medications, denies depression, and denies voices, denies substance abuse. Endocrine: The patient denies thyroid disorders, denies diabetes, and denies hormonal problems. Hematologic: The patient denies a history of bruising, denies bleeding, and denies anemia, denies blood clots. Infections: The patient denies a history of measles and mumps, denies rheumatic fever, and denies sexually transmitted diseases. Musculoskeletal: The patient denies back pain/injury, denies back problems, denies sciatica, denies knee/foot trouble, denies arthritis, or denies gout. When was patient's last Mammogram screening? 09/2021 Last Colonoscopy: 11/2019 Julee Chamorro RN documented in this encounter [facility] 02-02-2022 History of Present illness Narrative HISTORY AND PHYSICAL Carrie Hensley Piedad 1960 REFERRING PHYSICIAN: Haile Zarco MD CHIEF COMPLAINT: Consult (C/o stomach burning and sour, nausea is mild and diarrhea is chronic) HPI: The patient is a 61 year old female referred for endoscopy. Carrie notes the following GI complaints: Carrie notes abdominal pain. Her pain is located above her umbilicus in the epigastric area. It does not go into her back. . Carrie notes occasional diarrhea. Carrie denies constipation. Carrie denies a change in bowel habits. Carrie denies melena. Carrie denies bright red blood per rectum. Carrie denies hemorrhoids. The patient notes the following upper complaints: . Carrie denies heartburn. Carrie denies dysphagia. Carrie notes a distant history of a history of ulcers/ peptic ulcer disease. Carrie has undergone prior endoscopy. 2019 The patient is being seen by me today at the request of Dr. Haile Zarco MD, MD for my opinion and advice regarding Gastroesophageal reflux disease, unspecified whether esophagitis present (primary encounter diagnosis) Epigastric pain. PAST MEDICAL HISTORY Diagnosis Date Condyloma acuminatum 03/25/1983 no history of recurrance since treatment COVID-19 09/2021 Lymphocytic colitis Malignant neoplasm of upper-outer quadrant of female breast (HCC) 05/24/1991 breast cancer treated with chemo and radiation Mental disorder Rectal bleeding Unspecified constipation 03/25/2004 Constipation PAST SURGICAL HISTORY Procedure Laterality Date CAUTERY CERVIX CRYOCAUTERY INITIAL/REPEAT 1983 treated for condylomata COLONOSCOPY 01/2020 COLONOSCOPY FLX DX W/COLLJ SPEC WHEN PFRMD 07/21/2015 Colonoscopy EGD 01/2020 LIG/TRNSXJ FLP TUBE ABDL/VAG APPR UNI/BI 1992 LUMPECTOMY/RADIOTHERAPY DIAG MAMM/A10 1991 RIGHT PAST SURGICAL HISTORY OF 06/2004 breast recontruction rt and bilateral implants PAST SURGICAL HISTORY OF lazer surgery on face PROPH RETINAL DTCHMNT W/O DRG PHOTOCOAGULATION Right torn retina repair REMV CATARACT EXTRACAP,INSERT LENS Current Outpatient Medications Medication Sig cimetidine (TAGAMET) 200 mg tablet Take 200 mg by mouth four times daily. ondansetron orally disintegrating (ZOFRAN ODT) 4 mg disintegrating tablet Take 1 tablet by mouth every 6 hours as needed for nausea/vomiting. PAXIL 30 MG TAB Take 30 mg by mouth once daily. Magnesium 250 mg tab Take 250 mg by mouth once daily. (Patient not taking: Reported on 02/02/2022) B.animalis,bifid,infantis,long (PROBIOTIC 4X ORAL) Take by mouth once daily. (Patient not taking: Reported on 02/02/2022) Potassium 99 mg tab Take by mouth. (Patient not taking: No sig reported) No current facility-administered medications for this visit. ALLERGIES: Bactrim [Sulfamethoxazole] PERSONAL HISTORY: Social History Tobacco Use Smoking status: Former Years: 1.50 Types: Cigarettes Quit date: 08/24/1983 Years since quittin.4 Smokeless tobacco: Never Tobacco comments: in her early 20's, none now Vaping Use Vaping Use: Never used Substance Use Topics Alcohol use: No Drug use: No FAMILY HISTORY: FAMILY HISTORY Problem Relation Age of Onset other (constipation) Mother Diabetes Other GRANDFATHER Hypertension Maternal Grandmother Aneurysm Maternal Grandmother brain aneurysm age 64 Stroke Paternal Grandmother two light strokes 74 year of age REVIEW OF SYMPTOMS: The review of systems data was entered by the nurse and reviewed by me There are no exam notes on file for this visit. PHYSICAL EXAMINATION: General: The patient is 61 year old female, well nourished, well hydrated in no acute distress. The patient is oriented to time, place, and person. VITALS: Blood pressure 122/64, pulse 86, temperature 36.6 C (97.8 F), height 166.4 cm (5' 5.5 ), weight 57.1 kg (125 lb 12.8 oz), last menstrual period 12/30/2007, SpO2 98 %. Body mass index is 20.62 kg/m . HEENT: Normal cephalic, ataumatic, pupils are equally round, sclera are anicteric, mucous membranes are moist, oropharynx is clear. Neck has no masses, asymmetry or lymphadenopathy. Thyroid is unremarkable. Respiratory: Clear to auscultation and percussion. Normal respiratory excursion and pattern. Cardiac: Examination is regular rate and rhythm. Abdominal exam: Soft, nontender, with no palpable masses. No hepatosplenomegaly. No palpable hernias. Rectal exam: exam deferred Extremities: no clubbing, cyanosis or edema. No adenopathy. Other: LABORATORY VALUES: As Noted RADIOLOGIC STUDIES: As Noted Assessment IMPRESSION: Gastroesophageal reflux disease, unspecified whether esophagitis present (primary encounter diagnosis) Epigastric pain PLAN: I plan to perform upper endoscopy. We discussed the risks and benefits of the planned endoscopy. I have informed the patient that complications can occur including failure to complete the endoscopy and perforation. The patient had the opportunity to ask questions concerning the planned endoscopy. My staff has also explained the procedure to the patient in understandable terms and has given the patient printed material concerning the procedure. The patient freely consents to surgery. Diagnoses: (K21.9) Gastroesophageal reflux disease, unspecified whether esophagitis present (primary encounter diagnosis) (R10.13) Epigastric pain A letter was sent to Dr. Haile Zarco MD, indicating the above finding for this patient. Return to Clinic: The patient is instructed to follow-up with me 1 week post operatively. COVID (Procedure Consent) Procedure Criteria Procedure Criteria: Yes Elective The surgeon/proceduralist and patient have discussed in detail the risk of exposure to and/or potential harm posed by the COVID-19 virus with having a surgery/procedure at this time versus the risk of delaying the surgery/procedure. It is not possible to know either the risk of delaying the surgery or procedure or chance of getting an infection with perfect accuracy, but a joint decision was made between the patient and the surgeon/proceduralist to proceed at this time with the scheduled surgery/procedure as indicated on the consent form. Eliu Darby III, MD documented in this encounter [facility] 10-09-2021 History of Present illness Narrative Preoperative diagnosis: Abnormal mammogram to right breast Postoperative diagnosis: The same Procedure: Ultrasound-guided needle core biopsy of abnormal mammogram to right breast Surgeon: Wilner Procedure: Ultrasound of the right breast in the upper inner quadrant revealed the lesion in question. Prepped the breast with Betadine. I injected 1% lidocaine plain. Under ultrasound guidance I injected local down to the lesion. Skin gary was made. Under ultrasound guidance 2 needle core biopsies were obtained. Under ultrasound guidance a small titanium clip was placed. Sterile dressings were applied. A mammogram was ordered. UNIVERSAL PROTOCOL / SAFETY CHECKLIST Procedure to be Performed: Ultrasound guided needle core biopsy right breast. Sign In: A Moment of CARE was completed. Personnel directly involved with the procedure wore the appropriate PPE (Personal Protective Equipment). Special equipment: Bard Max-Core disposable core biopsy instrument 14g, Ultra clip breast tissue marker 17g. Patient/Surrogate Stated/Verified: PATIENT VERIFIED(optional for EMERGENT procedures): Patient name, Date of , Relevant allergies and The intended procedure Time Out Communication: Intended patient and procedure match the source documents. Consent documented and matches the intended procedure. Relevant labs, photos, and/or imaging studies have been reviewed. Correct side/site marked and visible. Medications required for procedure verified. No fire risk assessment and interventions applicable. Implant(s) inserted: Correct implant(s) confirmed including size and side. and Expiration date(s) reviewed. Sign Out: SIGN OUT (optional for EMERGENT procedures): All specimen containers correctly labeled. No instruments, equipment or retained foreign bodies applicable. Post-procedure follow-up management communicated and Plan of Care Visit completed when applicable. Julee Chamorro RN documented in this encounter [facility] 10-09-2021 History of Present illness Narrative Radiology Service Progress Note PATIENT NAME: Carrie Herbert DATE OF SERVICE: October 09, 2021 TIME: 2:19 PM PATIENT IDENTITY VERIFICATION COMPLETED USING TWO (2) IDENTIFIERS: Name and Date of confirmed by patient verbally. FALL SCREENING: Has the patient had 2 falls in the last year or 1 fall with injury or currently using an Ambulatory Assistive Device (Walker, Cane, Wheelchair, Crutches, etc.)? No PATIENT GENDER DATA: Female. status: : No status: NO. PATIENT RELEVANT IMPLANT DATA REVIEWED: Not Applicable RADIOLOGY DEPARTMENT: Mammography PERIPHERAL IV DATA: Not applicable SIGNED BY: Alber Pierre October 09, 2021 2:19 PM documented in this encounter [facility] 10-09-2021 Instructions Julee Chamorro RN - 10/09/2021 1:51 PM EDT The following instructions are important for you related to your office visit today with the [facility]. Instructions After OFFICE BASED BREAST BIOPSY Please do not take aspirin or other blood thinners for the next few days. After the procedure, Steri-Strips and a dressing will be placed on your small incision. The dressing may be removed in two to three days after the procedure. The Steri-Strips should be left in place until they fall off. You may take Tylenol or Ibuprofen as needed for pain. If you have bleeding from the biopsy site, hold pressure with a clean gauze. If the bleeding continues, contact our office immediately. I recommend taking Advil or Tylenol for the discomfort. You should wear a comfortable but somewhat tight fitting bra. If you have significant bruising, an ice pack may improve your discomfort. If you note any additional difficulties, questions, or concerns, you should contact our office immediately @ [phone] and ask to be transferred to the General Surgery department. documented in this encounter [facility] 09-19-2021 Miscellaneous Notes Patient given results and verbalized understanding of instructions given. Thelma Garces You tested positive for COVID-19 Follow the CDC guidelines for isolation: 1. Everyone, regardless of vaccination status, should stay home for 5 days. 2. If you have no symptoms or your symptoms are resolving after 5 days, you can leave your house. 3. Continue to wear a mask around others for 5 additional days. If you have a fever, continue to stay home until your fever resolves, even if it is longer than 5 days. Please monitor your symptoms, and for any worrisome symptoms, call your primary care provider or schedule a visit with [facility]. A test is not recommended to return to work/school when meeting the above criteria. documented in this encounter [facility] 09-18-2021 History of Present illness Narrative Patient presents with: Sinus Problem: cough, head congestion, diarrhea and nausea x 6 days HPI: Feeling sick for 6 days. Started as a URI, now has upset stomach and would like a refill of zofran. Positive symptoms: post-nasal drainage, dry Cough, Sinus pressure, Nasal Congestion, Rhinorrhea, Nausea, Diarrhea, resolved Headache and hot/cold, Negative symptoms: Shortness of breath, Wheezing, Chest pain, Vomiting, abdominal pain, blood in stool OTC: left over zofran has helped. Tagamet. Had booster dose of COVID-19 vaccine in January. PAST MEDICAL HISTORY Diagnosis Date Condyloma acuminatum 03/25/1983 no history of recurrance since treatment Lymphocytic colitis Malignant neoplasm of upper-outer quadrant of female breast (HCC) 05/24/1991 breast cancer treated with chemo and radiation Mental disorder Rectal bleeding Unspecified constipation 03/25/2004 Constipation PAST SURGICAL HISTORY Procedure Laterality Date CAUTERY CERVIX CRYOCAUTERY INITIAL/REPEAT 1984 treated for condylomata COLONOSCOPY 01/2020 COLONOSCOPY FLX DX W/COLLJ SPEC WHEN PFRMD 07/21/2015 Colonoscopy EGD 01/2020 LIG/TRNSXJ FLP TUBE ABDL/VAG APPR UNI/BI 1991 LUMPECTOMY/RADIOTHERAPY DIAG MAMM/A10 1991 RIGHT PAST SURGICAL HISTORY OF 06/2004 breast recontruction rt and bilateral implants PAST SURGICAL HISTORY OF lazer surgery on face PROPH RETINAL DTCHMNT W/O DRG PHOTOCOAGULATION Right torn retina repair REMV CATARACT EXTRACAP,INSERT LENS MEDICATIONS: Current Outpatient Medications Medication Sig B.animalis,bifid,infantis,long (PROBIOTIC 4X ORAL) Take by mouth. Potassium 99 mg tab Take by mouth. PAXIL 30 MG TAB Take one(1) tablet daily. meclizine (ANTIVERT) 25 mg tab Take 1 tablet by mouth every 6 hours as needed (dizziness). (Patient not taking: Reported on 03/21/2021 ) No current facility-administered medications for this visit. ALLERGIES: ALLERGIES Allergen Reactions Bactrim [Sulfametho* GI Upset VITALS: BP 110/68 Pulse 80 Temp 36.8 C (98.3 F) Resp 16 Wt 55.3 kg (122 lb) LMP 12/30/2007 SpO2 99% BMI 19.99 kg/m PHYSICAL EXAM: GEN: pleasant, mildly ill appearing HEENT: PERRL, EOMI, conjunctiva clear Ears: moderate cerumen left canal, right canal clear. TMs without erythema, bulge, or effusion Sinuses: non-tender frontal sinus, non-tender maxillary sinuses Throat: moist mucous membranes, no erythema, no exudate Neck: supple, no thyromegaly, no lymphadenopathy HEART: regular rate and rhythm, no murmurs LUNGS: clear to auscultation, no wheezes or crackles, no increased WOB ABD: Soft, non-distended, non-tender, no masses ASSESSMENT/PLAN: 1. Acute viral syndrome - ICD9: 079.99, ICD10: B34.9 (primary diagnosis) 2. Nausea - ICD9: 787.02, ICD10: R11.0 - suspect viral URI, differential includes COVID-19. - Discussed supportive care treatment with home isolation, hydration, rest, and zofran. - Red flags to seek further treatment include chest pain, shortness of breath, blood in stool, abdominal pain, and lethargy; in the ER if severe. - 2019 CORONAVIRUS - ONDANSETRON 4 MG DISINTEGRATING TABLET Joseph Vann MD documented in this encounter [facility] documented in this encounter [facility] [place] [facility]* Diagnosis Abnormal mammogram- Primary Abnormal mammogram, unspecified documented in this encounter [facility] [place] [facility]* Diagnosis Abnormal mammogram Abnormal mammogram, unspecified documented in this encounter [facility] [place] [facility]* Diagnosis Gastroesophageal reflux disease, unspecified whether esophagitis present- Primary Epigastric pain Abdominal pain, epigastric documented in this encounter [facility] note* Diagnosis Flu-like symptoms- Primary Other general symptoms Nausea Nausea alone documented in this encounter [facility] note* Diagnosis Epigastric pain- Primary Abdominal pain, epigastric Diarrhea, unspecified type documented in this encounter [facility] note* Diagnosis Lymphadenopathy, axillary- Primary Enlargement of lymph nodes documented in this encounter [facility] for referral (narrative)* Diagnostic Procedure Only (Routine) - Closed Specialty Diagnoses / Procedures Referred By Dary swenson Referred To Contact [facility] Diagnoses Abnormal mammogram Procedures KRISTINE DIAGNOSTIC RT DIAGNOSTIC MAMMOGRAPHY COMPUTER-AIDED DETCEliu Tejeda MD [address] [place] [address] [facility] [address] [place] [address] Referral ID Status Reason Start Date Expiration Date V isits Requested Visits Authorized [id number] Closed Auto-Generate d Referral OON/Self Pay Override 10/09/2021 11/08/2022 1 1 [facility] for referral (narrative)* Diagnostic Procedure Only (Routine) - Closed Specialty Diagnoses / Procedures Referred By Dary swenson Referred To Contact [facility] Diagnoses Abnormal mammogram Procedures KRISTINE DIAGNOSTIC RT DIAGNOSTIC MAMMOGRAPHY COMPUTER-AIDED DETEliu Nicole MD [address] [place] [address] [facility] [address] [place] [id number] Referral ID Status Reason Start Date Expiration Date V isits Requested Visits Authorized [id number] Closed Auto-Generate d Referral OON/Self Pay Override 10/09/2021 11/08/2022 1 1 [facility] for referral (narrative)* Outpatient Procedure (Routine) - Authorized Specialty Diagnoses / Procedures Referred By Dary swenson Referred To Contact [facility] Diagnoses Gastroesophageal reflux disease, unspecified whether esophagitis present Epigastric pain Procedures EGD DIAGNOSTIC ESOPHAGOGASTRODUODENOSC OPY TRANSORAL DIAGNOSTIC Eliu Darby MD [address] [place] [address] [address] Referral ID Status Reason Start Date Expiration Date Visits Requested Visits Authorized [id number] Authorized Auto-Generat ed Referral OON/Self Pay Override 2 02/02/2023 1 1 [facility] for visit Narrative* Diagnostic Procedure Only (Routine) - Closed Specialty Diagnoses / Procedures Referred By Dary swenson Referred To Contact [facility] Diagnoses Abnormal mammogram Procedures KRISTINE DIAGNOSTIC RT DIAGNOSTIC MAMMOGRAPHY COMPUTER-AIDED DETCJ [facility] Eliu Darby MD [address] [place] [address] [facility] [address] [place] [phone] Referral ID Status Reason Start Date Expiration Date V isits Requested Visits Authorized [id number] Closed Auto-Generate d Referral OON/Self Pay Override 10/09/2021 11/08/2022 1 1 [facility] Summary Purpose Family History No Family History Records FoundNo Family History Records FoundNo Family History Records Found Advance Directives No Advanced Directives Records FoundDocuments on File Type Date 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 Advance Directive(s) 07/21/2015 7:49 AM Advance Directive(s) 06/06/2015 3:22 PM Documents on File Type Date 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 Advance Directive(s) 07/21/2015 7:49 AM Advance Directive(s) 06/06/2015 3:22 PM Health Concerns Infection Onset Date Last Indicated Resolved Time COVID-19 Rule-Out 09/18/2021 09/18/2021 Infection Onset Date Last Indicated Resolved Time COVID-19 Rule-Out 09/18/2021 09/18/2021 09/19/2021 3:52 AM EDT COVID-19 Confirmed 09/18/2021 09/18/2021 Additional Source Comments INFORMATION SOURCE (unrecogn ized section and content) DATE CREATED AUTHOR AUTHOR'S ORGANIZ ATION 03/22/2023 [facility] DATE CREATED AUTHOR AUTHOR'S ORGANIZ ATION 04/08/2023 [facility] Source Comments (unrecognize d section and content) In the event this informatio n is protected by the Federal Confidentiality of Alcohol and Drug Abuse Patient Records regulations: The Federal rules restrict any use of the information to criminally investigate or prosecute any alcohol or drug abuse patient.[facility] the event this information is protected by the Federal Confidentiality of Alcohol and Drug Abuse Patient Records regulations: The Federal rules restrict any use of the information to criminally investigate or prosecute any alcohol or drug abuse patient.[facility] the event this information is protected by the Federal Confidentiality of Alcohol and Drug Abuse Patient Records regulations: The Federal rules restrict any use of the information to criminally investigate or prosecute any alcohol or drug abuse patient.[facility] the event this information is protected by the Federal Confidentiality of Alcohol and Drug Abuse Patient Records regulations: The Federal rules restrict any use of the information to criminally investigate or prosecute any alcohol or drug abuse patient.[facility] the event this information is protected by the Federal Confidentiality of Alcohol and Drug Abuse Patient Records regulations: The Federal rules restrict any use of the information to criminally investigate or prosecute any alcohol or drug abuse patient.[facility] the event this information is protected by the Federal Confidentiality of Alcohol and Drug Abuse Patient Records regulations: The Federal rules restrict any use of the information to criminally investigate or prosecute any alcohol or drug abuse patient.[facility] the event this information is protected by the Federal Confidentiality of Alcohol and Drug Abuse Patient Records regulations: The Federal rules restrict any use of the information to criminally investigate or prosecute any alcohol or drug abuse patient.[facility] the event this information is protected by the Federal Confidentiality of Alcohol and Drug Abuse Patient Records regulations: The Federal rules restrict any use of the information to criminally investigate or prosecute any alcohol or drug abuse patient.[facility] the event this information is protected by the Federal Confidentiality of Alcohol and Drug Abuse Patient Records regulations: The Federal rules restrict any use of the information to criminally investigate or prosecute any alcohol or drug abuse patient.[facility] the event this information is protected by the Federal Confidentiality of Alcohol and Drug Abuse Patient Records regulations: The Federal rules restrict any use of the information to criminally investigate or prosecute any alcohol or drug abuse patient.[facility] Reason for Visit (unrecogniz ed section and content) Reason Comments Results [facility] Diagnoses / Procedures [facility] To [facility] GENERAL SURGERY Diagnoses u/s right breast bx next saturday @ 1:30 Procedures u/s right breast bx next saturday @ 1:30 Eliu Darby MD [address] [place] [address] [facility] [address] [place] [address] Referral ID Status Reason Start Date Expiration Date Visits Requested Visits Authorized [id number] Pending Review OON/Self Pay Override 10/06/2021 01/04/2022 1 1 Reason Comments Consult C/o stomach burning and sour, nausea is mild and diarrhea is chronic Specialty Diagnoses / Procedures [facility] To [facility] Diagnoses consult Procedures OFFICE CONSULTATION NEW/ESTAB PATIENT 15 MIN Haile Zarco MD [address] [facility] [place] [address] [facility] [place] [address] [place] [address] Referral ID Status Reason Start Date Expiration Date Visits Requested Visits Authorized [id number] Outside PCP OON/Self Pay Override 01/31/2022 05/01/2022 1 1 Reason Comments Patient Update Procedure Reason Comments Nausea Pt reported chills, body aches, x3 days. Reason Comments Consult EGD Reason Comments Consult Left axilla biopsy, abnormal US Specialty Diagnoses / Procedures Referred By [facility] Referred To Contact GENERAL SURGERY Diagnoses Breast Biopsy Consult - Images requested 03/04/2023 - PCP Referring - In Scanned Doc Procedures NEW DDI PATIENT Haile Zarco MD [address] [place] [address] [facility] [address] [place] [address] Referral ID Status Reason Start Date Expiration Date Visits Requested Visits Authorized [id number] Outside PCP OON/Self Pay Override 3 09/01/2023 1 1 Care Teams (unrecognized sec tion and content) Psychiatric Technician Relationship Specialty Start Date End Date Haile Zarco MD PCP - General 01/15/08 Psychiatric Technician Relationship Specialty Start Date End Date Haile Zarco MD PCP - General 01/15/08 Psychiatric Technician Relationship Specialty Start Date End Date Haile Zarco MD PCP - General 01/15/08 Psychiatric Technician Relationship Specialty Start Date End Date Haile Zarco MD PCP - General 01/15/08 Psychiatric Technician Relationship Specialty Start Date End Date Haile Zarco MD PCP - General 01/15/08 Psychiatric Technician Relationship Specialty Start Date End Date Haile Zarco MD PCP - General 01/15/08 Psychiatric Technician Relationship Specialty Start Date End Date Haile Zarco MD PCP - General 01/15/08 Psychiatric Technician Relationship Specialty Start Date End Date Haile Zarco MD PCP General 01/15/08 FOR RECORDS PERTAINING TO PATIENTS WHO ARE OR HAVE BEEN ENROLLED IN A CHEMICAL DEPENDENCY/SUBSTANCEABUSE PROGRAM, SOME INFORMATION MAY BE OMITTED. This clinical summary was aggregated from multiple sources. Caution should be exercised in using it in the provision of clinical care. This summary normalizes information from multiple sources, and as a consequence, information in this document may materially change the coding, format and clinical context of patient data. In addition, data may be omitted in some cases. CLINICAL DECISIONS SHOULD BE BASED ON THE PRIMARY CLINICAL RECORDS. [facility] provides no warranty or guarantee of the accuracy or completeness of information in this document.
--- NOTE | 2023-04-09 07:30 | PET_ITS ---
EXAMINATION: FDG PET CT HISTORY: 62-year-old female with history of primary breast carcinoma presenting for restaging examination. COMPARISON EXAMINATION: None available INDEX LESION SIZE SUV INTERPRETATION Left axilla, retropectoral multifocal 27.5 mm 5.2 Fulfills quantitative criteria for viable neoplasm Left breast (n=1) 9.5 mm 3.2 Fulfills quantitative criteria for viable neoplasm NON INDEX LESION SIZE SUV INTERPRETATION Bilateral thoracic perihilum 2.3 Quantitative criteria for viable neoplasm are not fulfilled Right breast 1.45 Quantitative criteria for viable neoplasm are not fulfilled TECHNIQUE: Following the intravenous administration of 12.92 mCi of F-18 deoxyglucose, via the left antecubital fossa, multiplanar image acquisitions of the neck, chest, abdomen and pelvis to the level of mid thigh, obtained at one hour post radiopharmaceutical administration contemporaneously interpreted with the current CT of the neck, chest, abdomen and pelvis to the level of mid thigh, dated 04/09/2023 via coregistration reveals: BLOOD GLUCOSE LEVEL:?116 mg/dL?HEIGHT:?65 inches?WEIGHT: 122 lbs. FINDINGS: Head/Neck: There is no evidence of abnormal increased glucose metabolism in the pharyngeal mucosal space, parapharyngeal space, bilateral-lateral and anterior neck, hypopharynx and distribution of the larynx. The visualized portion of the cerebral cortical-subcortical structures demonstrate symmetric and preserved glucose metabolism. CHEST: Increased FDG concentration is demonstrated in the left retropectoral and axillary lymph node basins generating a calculated maximum standard uptake value of 5.2. The maximal axial diameter of the largest corresponding soft tissue density is 27.5 mm transverse. Facilitated fluorine labeled glucose uptake is manifest in the left breast in a single nodular focus. The calculated maximum standard uptake value is 3.2. The maximal axial diameter of the metabolic morphologic abnormality is 9.5 mm. Subtle enhanced tracer distribution is defined in the right breast anterior to the right breast prosthesis with a calculated standard uptake value of 1.45. There is accentuated uptake noted in the bilateral thoracic perihilum generating a calculated standard uptake value of 2.3. Pertinent chest CT findings are as follows. Noncalcified parenchymal densities discerned in the bilateral apical lung zambrano are nonglucose avid. Right and left breast prostheses are defined. Atherosclerotic calcification is demonstrated in the thoracic aorta without evidence of dilatation. Coronary arterial calcification is observed. Subcentimeter right axillary soft tissue densities are ametabolic. Abdomen/Pelvis: Normal physiologic uptake is noted in the hepatic (3.1) and splenic parenchyma. There is symmetric demonstration of the right and left kidneys, normal uptake in the urinary bladder and visualized intestinal tract. Review of CT of the abdomen and pelvis reveals the following. Atherosclerotic calcification is demonstrated in the abdominal aorta without evidence of aneurysm. Pelvic arterial calcification is observed. Surgical clips are identified in the bilateral lower hemipelvic mesentery. SKELETAL: Degenerative changes expressed in the axial skeletal structures demonstrate no evidence of increased glucose concentration. PET/PET/CT Tumor Base -Thigh Init IMPRESSION: 1. ABNORMAL EXAMINATION INDICATIVE OF MALIGNANT VIABLE NEOPLASM. 2. Multifocal increased radiotracer distribution defined in the left axilla and retropectoral lymph node basins fulfill quantitative criteria for malignant transformation. 3. The increase in radiopharmaceutical defined in the left breast fulfills quantitative criteria for neoplasia. 4. Facilitated FDG manifest in the right breast and bilateral thoracic perihilum does not fulfill quantitative criteria for neoplastic infiltration. Electronic Signature Harman Do D.O. Accurate Quantification of SUVs for this report are calculated using the exclusive [employer]. ([place]. Patent No. [phone] [phone] B2 [phone] [place] patent [phone]). Standardization and correction of the FDG SUV metric via [employer] technology allow for vendor non-specific objective quantitative examination comparison and optimization of the sensitivity and specificity of the FDG PET-CT examination. . [email or web address] Electronically Signed: Harman Do DO at 10:54 EST ,
== END | disposition home or self-care (01) ==
PROVIDERS: PCP Family Medicine; Referring Provider Internal Medicine Hematology & Oncology; Visit Provider Internal Medicine Hematology & Oncology
DX: C77.3 Secondary and unspecified malignant neoplasm of axilla and upper limb lymph nodes (principal); C50.912 Malignant neoplasm of unspecified site of left female breast; Z17.1 Estrogen receptor negative status [ER-]
CPT/HCPCS: 78815; A9552

== ENCOUNTER → 2023-04-09 | Outpatient (CLI) | payer BC, SELFPAY ==
--- NOTE | 2023-04-09 11:07 | MRI_ITS ---
EXAM: MR Breast W/ Contrast and W/O Contrast If Included Bilateral W CAD when performed HISTORY: History of right breast cancer 30 years ago. New left axillary mass with positive biopsy on 1223 TECHNIQUE: Breast MRI was performed with the patient positioned prone in a Siemens Aera 1.5 Juanita magnet. A16 channel dedicated breast coil was utilized. Sequences obtained include: Pre-contrast axial non fat-saturated T1; axial STIR; pre-contrast fat-saturated axial T1; post-contrast fat-saturated axial T1 every 90 seconds for three sequences; and post-contrast high resolution fat-saturated sagittal T1. Subtraction axial images were generated. 11 mL of Clariscan was injected intravenously from a multi-use vial. The study was processed using a [employer] system to optimize interpretation by generating multiplanar and three dimensional reconstructions, by creating subtraction images from the dynamic pre- and post-contrast data and by providing enhancement kinetic and analytical information. COMPARISON STUDIES: None FINDINGS: There is heterogeneous fibroglandular tissue with minimal background parenchymal enhancement. Bilateral retropectoral breast implants are intact. RIGHT BREAST: There is a 1.4 x 1.0 x 0.8 cm enhancing mass in the upper outer quadrant of the breast, located 2.3 cm from the nipple along the 1:00 axis. The mass is 1.9 cm from the underlying pectoralis, and 1.1 cm from the skin surface. No additional abnormal enhancement in the breast. There are multiple pathologically enlarged right axillary lymph nodes, at least 3 of which are included within the [id number] measuring up to 2.8 cm. No internal mammary lymphadenopathy. LEFT BREAST: Post lumpectomy changes redemonstrated in the upper inner quadrant. There is a 4-5 mm focus of progressive enhancement along the superomedial aspect of the lumpectomy site, as seen on subtraction image 125 which is nonspecific, and nonsubtracted image 124 No axillary lymphadenopathy. No internal mammary lymphadenopathy. MRI/Breast Bilateral W/O and W IMPRESSION: RIGHT BREAST: 1. There is a 1.4 x 1.0 x 0.8 cm mass along the 1:00 axis, 2.3 cm from the nipple, 1.9 cm from the underlying pectoralis, and 1.1 cm from the skin surface. 2. Multiple pathologically enlarged right axillary lymph nodes. LEFT BREAST: 1. Postlumpectomy changes in the upper inner quadrant. There is a 4-5 mm focus of progressive enhancement along the superomedial aspect of the lumpectomy site for which second look ultrasound is recommended. OVERALL ASSESSMENT: BI-RADS category 6, known malignancy. Appropriate action should be taken. RIGHT BREAST: BI-RADS category 6, known malignancy. Appropriate action should be taken. LEFT BREAST: BI-RADS Category 0. Additional imaging required. RECOMMENDATION: 1. Management of the known right breast malignancy and right axillary lymph nodes per the oncology team. 2. Second look ultrasound for the 4-5 mm focus of progressive enhancement along the superomedial aspect of the lumpectomy site in the left breast. Electronically Signed: Lee Padilla MD at 15:47 EST ,
--- OUTSIDE RECORDS SUMMARY | 2023-04-09 11:45 | XMS RPT_ITS | CCD ---
Author Name Unknown Address [address] [place] [address] Organization [facility] Care Team Providers Care Knitted Cloth Examiner Name Role Phone Cogar SIPHONER, Belgica N Unavailable Cogar SIPHONER, Belgica N Unavailable Cogar SIPHONER, Belgica N Unavailable RUSIA, DEEPAM Unavailable Unavailable RUSIA, DEEPAM Unavailable Unavailable Cogar SIPHONER, Belgica N Unavailable [phone] Haroldo ANAND, Haile Wren Primary Care Provider Haile Zarco MD Primary Care Provider Haile Zarco MD Primary Care Provider Haile Zarco MD Primary Care Provider VALE CARPENTER Attending Unavailable ZARCO, HAILE A Referring Unavailable ZARCO, HAILE A Primary Care Unavailable EILU DARBY Referring Unavailable ELIU DARBY Attending Unavailable ZARCO, HAILE A Primary Care Unavailable ZARCO, HAILE A Primary Care Unavailable MASCI, MIRZA A Referring Unavailable ZARCO, HAILE A Primary Care Unavailable ALEJANDRO CHAPARRO MD Attending Unavailable MASCI, MIRZA A Referring Unavailable ZARCO, HAILE A Primary Care Unavailable MASCI, MIRZA A Referring Unavailable MASCI, MIRZA A Attending Unavailable ZARCO, HAILE A Primary Care Unavailable VALE CARPENTER Attending Unavailable ZARCO, HAILE A Primary Care Unavailable Allergies Allergy Classification Reported Allergen(s) Allergy Type Date of Onset Reaction(s) Facility (4 sources) sulfamethoxazole / trimethoprim drug allergy 7 bloated/diarrhe a [facility] Work Phone: (11 sources) Sulfamethoxazole; Translations: [SULFAMETHOXAZOLE] Drug Allergy 4 GI Upset [facility] (5 sources) Trimethoprim; Translations: [TRIMETHOPRIM] Drug Allergy 0 Other: See Comments [facility] Medications Completed/Discontinued Medications Medication Drug Class(es) [...] 03-12-2023 09:57-0500 Body height 163.8 cm Vale Caprenter MD Work Phone: [facility] 03-12-2023 09:57-0500 Body temperature 97.2 [degF] Vale Carpenter MD Work Phone: [facility] 03-12-2023 09:57-0500 Body weight 56.43 kg Vale Carpenter MD Work Phone: [facility] 03-12-2023 09:57-0500 Diastolic blood pressure 60 mm[Hg] Vale Carpenter MD Work Phone: [facility] 03-12-2023 09:57-0500 Heart rate 68 /min Vale Carpenter MD Work Phone: [facility] 03-12-2023 09:57-0500 SaO2% (BldA) [Mass fraction] 99 % Vale Carpenter MD Work Phone: [facility] 03-12-2023 09:57-0500 Systolic blood pressure 108 mm[Hg] Vale Carpenter MD Work Phone: [facility] 06-19-2022 08:41-0400 Body height 165.1 cm Eliu Darby MD Work Phone: [facility] 06-19-2022 08:41-0400 Body temperature 97.11 [degF] Eliu Darby MD Work Phone: [facility] 06-19-2022 08:41-0400 Body weight 55.61 kg Eliu Darby MD Work Phone: [facility] 06-19-2022 08:41-0400 Diastolic blood pressure 78 mm[Hg] Eliu Darby MD Work Phone: [facility] 06-19-2022 08:41-0400 Heart rate 77 /min Eliu Darby MD Work Phone: [facility] 06-19-2022 08:41-0400 SaO2% (BldA) [Mass fraction] 97 % Eliu Darby MD Work Phone: [facility] 06-19-2022 08:41-0400 Systolic blood pressure 108 mm[Hg] Eliu Darby MD Work Phone: [facility] 06-12-2022 09:36-0400 Body temperature 98.71 [degF] Karen Praisler-Wood EDUCATION SALES CONSULTANT.LAND TITLE EXAMINER Work Phone: [facility] 06-12-2022 09:36-0400 Body weight 55.07 kg Karen Praisler-Wood EDUCATION SALES CONSULTANT.LAND TITLE EXAMINER Work Phone: [facility] 06-12-2022 09:36-0400 Diastolic blood pressure 64 mm[Hg] Karen Praisler-Wood EDUCATION SALES CONSULTANT.LAND TITLE EXAMINER Work Phone: [facility] 06-12-2022 09:36-0400 Heart rate 82 /min Karen Praisler-Wood EDUCATION SALES CONSULTANT.LAND TITLE EXAMINER Work Phone: [facility] 03-21-2023 09:36-0400 Respiratory rate 16 /min Karengabby Alexandre-Mao EDUCATION SALES CONSULTANT.LAND TITLE EXAMINER Work Phone: [facility] 06-12-2022 09:36-0400 SaO2% (BldA) [Mass fraction] 97 % Karen Badilloroxannaler-Wood EDUCATION SALES CONSULTANT.LAND TITLE EXAMINER Work Phone: [facility] 06-12-2022 09:36-0400 Systolic blood pressure 130 mm[Hg] Karen Hannahler-Mao EDUCATION SALES CONSULTANT.LAND TITLE EXAMINER Work Phone: [facility] 02-02-2022 09:18-0500 Body height 166.4 cm Eliu Darby MD Work Phone: [facility] 02-02-2022 09:18-0500 Body temperature 97.81 [degF] Eliu Darby MD Work Phone: [facility] 02-02-2022 09:18-0500 Body weight 57.06 kg Eliu Darby MD Work Phone: [facility] 02-02-2022 09:18-0500 Diastolic blood pressure 64 mm[Hg] Eliu Darby MD Work Phone: [facility] 02-02-2022 09:18-0500 Heart rate 86 /min Eliu Darby MD Work Phone: [facility] 02-02-2022 09:18-0500 SaO2% (BldA) [Mass fraction] 98 % Eliu Darby MD Work Phone: [facility] 02-02-2022 09:18-0500 Systolic blood pressure 122 mm[Hg] Eliu Darby MD Work Phone: [facility] 09-18-2021 11:27-0400 Body temperature 98.29 [degF] Joseph Vann MD Work Phone: [facility] 09-18-2021 11:27-0400 Body weight 55.34 kg Joseph Vann MD Work Phone: [facility] 09-18-2021 11:27-0400 Diastolic blood pressure 68 mm[Hg] Joseph Vann MD Work Phone: [facility] 09-18-2021 11:27-0400 Heart rate 80 /min Joseph Vann MD Work Phone: [facility] 09-18-2021 11:27-0400 Respiratory rate 16 /min Joseph Vann MD Work Phone: [facility] 09-18-2021 11:27-0400 SaO2% (BldA) [Mass fraction] 99 % Joseph Vann MD Work Phone: [facility] 09-18-2021 11:27-0400 Systolic blood pressure 110 mm[Hg] Joseph Vann MD Work Phone: [facility] 09-05-2016 18:00-0400 BMI (Body Mass Index) 19.97 kg/m2 Belgica Daleelicia CHAVEZ [facility] Work Phone: 09-05-2016 18:00-0400 Body Temperature 98.5 [degF] Belgica Henry KATHY [facility] Work Phone: 09-05-2016 18:00-0400 BP Diastolic 74 mm[Hg] Belgica Henry SIPHONER [facility] Work Phone: 09-05-2016 18:00-0400 BP Systolic 116 mm[Hg] Belgica Henry SIPHONER [facility] Work Phone: 09-05-2016 18:00-0400 Height 165.1 cm Belgica Daleelicia CHAVEZ [facility] Work Phone: 09-05-2016 18:00-0400 Pulse (Heart Rate) 71 /min Belgica Daleelicia CHAVEZ [facility] Work Phone: 09-05-2016 18:00-0400 Pulse Oximetry 97 % Belgica Daleelicia CHAVEZ [facility] Work Phone: 09-05-2016 18:00-0400 Respiratory Rate 16 /min Belgica Daleelicia CHAVEZ [facility] Work Phone: 09-05-2016 18:00-0400 Weight 54.43 kg Belgica Henry LPN [facility] Work Phone: 08-22-2016 17:59-0400 BMI (Body Mass Index) 20 kg/m2 Belgica Henry LPN [facility] Work Phone: 08-22-2016 17:59-0400 Body Temperature 100.1 [degF] Belgica Henry LPN [facility] Work Phone: 08-22-2016 17:59-0400 BP Diastolic 60 mm[Hg] Belgica Henry LPN [facility] Work Phone: 08-22-2016 17:59-0400 BP Systolic 108 mm[Hg] Belgica Henry LPN [facility] Work Phone: 08-22-2016 17:59-0400 Height 165.1 cm Belgica Henry LPN [facility] Work Phone: 08-22-2016 17:59-0400 Pulse (Heart Rate) 93 /min Belgica Henry LPN [facility] Work Phone: 08-22-2016 17:59-0400 Pulse Oximetry 98 % Belgica Henry LPN [facility] Work Phone: 08-22-2016 17:59-0400 Respiratory Rate 16 /min Belgica Henry LPN [facility] Work Phone: 08-22-2016 17:59-0400 Weight 54.52 kg Belgica Henry LPN [facility] Work Phone: Encounters Encounter Date Encounter Type Care Provider Facility Start: 04-08-2023 End: 04-08-2023 ambulatory MIRZA ZHU Facility:[facility] Start: 04-04-2023 End: 04-04-2023 ambulatory ALEJANDRO CHAPARRO MD Facility:[facility] Start: 04-03-2023 End: 04-03-2023 ambulatory MIRZA ZHU Facility:[facility] Start: 03-13-2023 End: 03-14-2023 ambulatory VALE CARPENTER Facility:[facility] Start: 03-12-2023 End: 03-12-2023 ambulatory VALE CARPENTER Facility:[facility] Start: 03-12-2023 End: 03-12-2023 Patient encounter procedure Vale Carpenter MD Work Phone: General Surgery Procedures Date Procedure Procedure Detail Performing Clinician Start: 10-09-2021 US BREAST BIOPSY RIG HT (POC) SURG USE ONLY Eliu Darby MD Work Phone: Start: 10-09-2021 Diagnostic mammograp hy computer-aided detcj uni Eliu Darby MD Work Phone: Start: 02-08-2020 Colonoscopy Joseph shore MD Work Phone: Start: 07-21-2015 Colonoscopy Vale Carpenter MD Work Phone: Start: 05-10-2015 Mammography Joseph shore MD Work Phone: Plan of Treatment Date Care Activity Detail Author Start: 02-07-2030 Colonoscopy COLONOSCOPY [facility] Start: 02-07-2030 COLORECTAL CANCER SCREENING COLORECTAL CANCER SCREENING [facility] Start: 09-11-2027 Urine microalbumin profile DTaP,Tdap,Td Vaccine (2 - Td or Tdap) [facility] Start: 07-20-2025 Screening for malignant neoplasm of colon [facility] Start: 11-23-2022 Covid-19 Vaccine ( season) Covid-19 Vaccine ( season) [facility] Start: 11-23-2022 Influenza vaccination Influenza Vaccine (#1) [facility] Start: 03-25-2022 DEPRESSION ASSESSMENT DEPRESSION ASSESSMENT [facility] Start: 11-23-2021 Influenza vaccination INFLUENZA (#1) [facility] Start: 09-18-2021 End: 10-02-2021 SARS-CoV-2 (COVID-19) RNA [Presence] in Respiratory specimen by OBI with probe detection 2019 CORONAVIRUS Microbiology Routine Nausea Expected: 09/18/2021, Expires: 10/02/2021 [facility] Work Phone: Immunizations Immunization Date Immunization Notes Care Provider Fa cility 11-29-2021 COVID-19 vaccine, fu ll dose (MODERNA) Joseph Vann MD Work Phone: [facility] Work Phone: 12-20-2020 influenza virus vaccine, unspecified formulation Vale Carpenter MD Work Phone: [facility] 06-24-2020 COVID-19 vaccine, ag e 12+ yr (PFIZER-BIONTECH - PURPLE TOP) Joseph Vann MD Work Phone: [facility] Work Phone: 06-03-2020 COVID-19 vaccine, ag e 12+ yr (PFIZER-BIONTECH - PURPLE TOP) Joseph Vann MD Work Phone: [facility] Work Phone: 01-05-2015 influenza virus vaccine, unspecified formulation Joseph Vann MD Work Phone: [facility] Payers Date Payer Category Payer Unknown [facility] ZOEY [id number] 2021-Present [phone] [id number] [facility] [id number] 2021 Unknown [facility] ZOEY [id number] 2021-Present [phone] [address] [place] [id number] [facility] [id number] 2021 Unknown [id number] 2003 Private Health Insurance [id number] Social History Date Type Detail Facility Start: 02-02-2022 [facility] Work Phone: End: 08-24-1983 History of tobacco use Current smoker [facility] Work Phone: End: 08-24-1983 History of tobacco use Cigarette Smoker [facility] Work Phone: Start: 09-18-2021 End: 03-12-2023 Alcohol intake Current non-drinker of alcohol (finding) [facility] Start: 1960 Sex Assigned At Not on file [facility] Start: 09-29-2021 End: 02-02-2022 Exposure to SARS-CoV-2 (event) Not sure [facility] Start: 02-02-2022 Tobacco use and exposure Smokeless tobacco non-user [facility] Start: 02-02-2022 Tobacco Comment in her early 2 0's, none now [facility] Start: 03-12-2023 History of Social function [facility] Start: 03-12-2023 Tobacco use panel [facility] National Score (1-100), lower number is lower risk 63 [facility] Clinical Notes 09-18-2021 to 04-08-2023 Vael Carpenter MD - 03/12/2023 10:13 AM Shira Leonard LPN - 03/12/2023 9:57 AM Tiffany Darby MD - 06/19/2022 8:54 AM EDTTelephone Encounter - Marcie Babb RN - 06/13/2022 8:46 AM EDT Note Date & Type Note Facility 04-08-2023 Note HNO ID: [id number] Author: KIA MOE RT(R) Service: ? Author [...] DATE: April 08, 2023 TIME: 9:19 AM [facility] 04-04-2023 Note HNO ID: [id number] Author: ALEJANDRO CHAPARRO MD Service: ? Author Type: Physician Type: Progress Notes Filed: 04/08/2023 14:22 Note Text: Radiation Oncology - New Patient/Consult Note PATIENT NAME: Carrie Herbert PATIENT REQUESTING PROVIDER: Dr. Mirza Zhu DIAGNOSIS: 1. Clinical stage IIIC, cTx cN2a, invasive mammary carcinoma of the left breast. It's ER negative (<1%), MT negative (<1%) and Her2 1+. 2. h/o right breast cancer 30 years ago treated with right breast lumpectomy, radiation treatment and chemotherapy. HPI: 62 year old female who presents with above diagnosis, for an opinion regarding the role of radiation therapy in the management of the patient's disease. Final recommendations will be communicated back to the requesting physician by way of the shared medical record, or letter to requesting physician via US mail. 62 year old woman with history of right breast cancer about 30 year ago. At that time she was treated with right breast lumpectomy followed by [facility] [place] and adjuvant chemotherapy. She reports that her lymph node was not involved at that time and she didn't have hormone therapy. She was doing well until this year when she felt a lump in the left axilla about two months ago. US of the left breast on 03/01/23 showed multiple hypoechoic heterogeneous masses with increased vascularity are seen in the left axilla suggestive of multiple lymph nodes. The largest lymph node measures 3.5 cm x 3.2 size by 2.1 cm. Of note, screening mammogram on 10/08/22 was negative. Biopsy of the left axillary mass on 03/13/23 showed grade 3 metastatic mammary carcinoma in lymph node tissue. It's ER negative (<1%), MT negative (<1%) and Her2 1+. ALLERGIES Allergen Reactions Bactrim [Sulfametho* GI Upset Trimethoprim Other: See Comments Current Outpatient Medications on File Prior to Visit Medication Sig iv contrast (will be provided with radiology test) MRI Brain Inject, intravenously, once for 1 dose.No IV access, insert saline lock prior to beginning of sedation, infusion, injection of imaging exam.Discontinue saline lock post exam. If Pt. has a central line or IVAD, may access for administration according to line specific nursing protocol.Once exam is complete flush line and de-access according to line specific nursing protocol in the MR contrast administration guidelines link iv contrast (will be provided with radiology test) MRI Breast TARAH Inject, intravenously, once for 1 dose. No IV access, insert saline lock prior to the beginning of sedation, infusion, injection of imaging exam. Discontinue saline lock post exam. If Pt has a central line or IVAD, may access for administration according to line specific nursing protocol. Once exam is complete flush line and de-access according to line specific nursing protocol in the MR contrast administration guidelines link cholecalciferol, vitamin D3, (VITAMIN D3 ORAL) Take [...] mouth once daily. No current facility-administered medications on file prior to visit. PAST MEDICAL HISTORY Diagnosis Date Condyloma acuminatum 03/25/1983 no history of recurrance since treatment COVID-19 09/2021 Lymphocytic colitis Malignant neoplasm of upper-outer quadrant of female breast (HCC) 05/24/1991 breast cancer treated with chemo and radiation Mass of axilla, left Mental disorder Rectal bleeding Unspecified constipation 03/25/2004 Constipation Prior radiation therapy, collagen vascular disease, or inflammatory bowel disease: Yes, previous radiation treatment to the right breast 30 years ago. Any implanted or external electric devices? No status: Post-menopausal. PAST SURGICAL HISTORY Procedure Laterality Date CAUTERY [...] torn retina repair REMV CATARACT EXTRACAP,INSERT LENS FAMILY HISTORY Problem Relation Age of Onset other (constipation) Mother ot (more content not included)... [facility] 04-03-2023 Note HNO ID: [id number] Author: MIRZA ZHU, DO Service: ? Author Type: Physician Type: [...] tissue involved by metastatic mammary carcinoma (provisional [facility] grade 3). The carcinoma cells express cytokeratin AE1/AE3, GATA3, TRPS 1, and SOX10, and are negative for PAX8, TTF-1, and CDX2, supporting mammary origin. Breast biomarker studies have been requested and results will be reported separately in a linked report. 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 [facility] 03-13-2023 Note HNO ID: [id number] Author: Vale Carpenter MD Service: ? Author [...] discussion of results. Patient acknowledges the above. [facility] 03-12-2023 Note HNO ID: [id number] Author: Vale Carpenter MD Service: ? Author [...] with larges 3.5 x 3.2 cm from [facility] Bilateral mammograms 3D normal 10/08/2022 PAST MEDICAL [...] entered by the nurse and reviewed by ct Nursing Notes: Shira Hartman LPN 03/12/2023 10:02 [...] denies diverticulitis, denies (more content not included)... [facility] 03-12-2023 History of Present illness Narrative Carrie [...] with larges 3.5 x 3.2 cm from [facility] Bilateral mammograms 3D normal 10/08/2022 PAST MEDICAL [...] by the nurse and reviewed by me Nursing Notes: Shira HartmanKATHY 03/12/2023 10:02 AM Signed REVIEW OF SYSTEMS: [...] When was patient's last Mammogram screening? 2022 [facility] Last Colonoscopy: 01/2020 Shira Hartman LPN PHYSICAL EXAMINATION: General: The patient is 62 [...] Vale Carpenter MD documented in this encounter [facility] 03-12-2023 Nurse Note REVIEW OF SYSTEMS: [...] When was patient's last Mammogram screening? 2022 [facility] Last Colonoscopy: 01/2020 Shira Hartman LPN documented in this encounter [facility] 06-19-2022 Note HNO ID: [id number] Author: Eliu Darby MD Service: ? Author Type: Physician Type: Progress Notes Filed: 06/19/2022 9:10 AM Note Text: HISTORY AND PHYSICAL Carriejaney Hensley Piedad 1960 REFERRING PHYSICIAN: Eliu Darby MD CHIEF [...] but I do (more content not included)... [facility] 06-19-2022 History of Present illness Narrative HISTORY AND PHYSICAL Carrie Herbert 1960 REFERRING [...] Darby III, MD documented in this encounter [facility] 06-13-2022 Miscellaneous Notes Pt called and is notified of providers results. Pt voices understanding. Marcie Babb RN Left message for patient with negative results.Lynn Cedeño LPN Negative for COVID and flu documented in this encounter [facility] 06-12-2022 Note HNO ID: [id number] Author: Karen Vasquez APRN.LAND TITLE EXAMINER Service: ? Author Type: Nurse Practitioner Type: [...] Discussed expected course of illness Karen Vasquez APRN.[facility] 06-12-2022 History of Present illness Narrative Subjective [...] Discussed expected course of illness Karen Vasquez APRN.SILVANA documented in this encounter [facility] 06-12-2022 Instructions Karen Vasquez APRN.CNP - [...] Discussed expected course of illness Karen Vasquez APRN.LAND TITLE EXAMINER documented in this encounter [facility] 02-16-2022 Miscellaneous Notes Patient chose to cancel EGD since symptoms have improved. Both procedure and follow up appointment with Marcie Schaefer have been cancelled. documented in this encounter [facility] 02-02-2022 Nurse Note REVIEW OF SYSTEMS: [...] Julee Chamorro RN documented in this encounter [facility] 02-02-2022 History of Present illness Narrative [...] was sent to Dr. Haile Zarco MD, MD indicating the above finding for this patient. [...] Darby III, MD documented in this encounter [facility] 10-09-2021 History of Present illness Narrative [...] Julee Chamorro RN documented in this encounter [facility] 10-09-2021 History of Present illness Narrative [...] 2021 2:19 PM documented in this encounter [facility] 10-09-2021 Instructions Julee Chamorro RN - 10/09/2021 1:51 PM EDT The following instructions are important for you related to your office visit today with the [facility] General Surgeons. Instructions After OFFICE BASED BREAST [...] you should contact our office immediately @ [phone] and ask to be transferred to the General Surgery department. documented in this encounter [facility] 09-19-2021 Miscellaneous Notes Patient given results [...] care provider or schedule a visit with [facility]. A test is not recommended to return to work/school when meeting the above criteria. documented in this encounter [facility] 09-18-2021 History of Present illness Narrative [...] Joseph Vann MD documented in this encounter [facility] Diagnosis Abnormal mammogram- Primary Abnormal mammogram, unspecified [facility] Diagnosis Abnormal mammogram Abnormal mammogram, unspecified [facility] Diagnosis Gastroesophageal reflux disease, unspecified whether esophagitis present- Primary Epigastric pain Abdominal pain, epigastric [facility] Diagnosis Flu-like symptoms- Primary Other general symptoms Nausea Nausea alone [facility] Diagnosis Epigastric pain- Primary Abdominal pain, epigastric Diarrhea, unspecified type [facility]* Diagnosis Lymphadenopathy, axillary- Primary Enlargement of lymph nodes [facility] Diagnostic Procedure Only (Routine) - Closed Specialty Diagnoses / Procedures Referred By Contac t Referred To Contact [facility] Diagnoses Abnormal mammogram Procedures KRISTINE DIAGNOSTIC RT DIAGNOSTIC MAMMOGRAPHY COMPUTER-AIDED DETCJ Eliu Giordano MD [address] [place] [address] [facility] [address] [place] [address] Referral ID Status Reason Start Date Expiration Date V isits Requested Visits Authorized [id number] Closed Auto-Generate d Referral OON/Self Pay Override 10/09/2021 11/08/2022 1 1 [facility] for referral (narrative)* Diagnostic Procedure Only (Routine) - Closed Specialty Diagnoses / Procedures Referred By Contac t Referred To Contact [facility] Diagnoses Abnormal mammogram Procedures KRISTINE DIAGNOSTIC RT DIAGNOSTIC MAMMOGRAPHY COMPUTER-AIDED DETCEliu Tejeda MD [address] [place] [address] [facility] [address] [place] [address] Referral ID Status Reason Start Date Expiration Date V isits Requested Visits Authorized [id number] Closed Auto-Generate d Referral OON/Self Pay Override 10/09/2021 11/08/2022 1 1 [facility] for referral (narrative)* Outpatient Procedure (Routine) - Authorized Specialty Diagnoses / Procedures Referred By Dary t Referred To Contact [facility] Diagnoses Gastroesophageal reflux disease, unspecified whether esophagitis present Epigastric pain Procedures EGD DIAGNOSTIC ESOPHAGOGASTRODUODENOSC OPY TRANSORAL DIAGNOSTIC Eliu Darby MD [address] [place] [address] [facility] [place] [address] [place] [address] Referral ID Status Reason Start Date Expiration Date Visits Requested Visits Authorized [id number] Authorized Auto-Generat ed Referral OON/Self Pay Override 2 02/02/2023 1 1 [facility] for visit Narrative* Diagnostic Procedure Only (Routine) - Closed Specialty Diagnoses / Procedures Referred By Contac t Referred To Contact [facility] Diagnoses Abnormal mammogram Procedures KRISTINE DIAGNOSTIC RT DIAGNOSTIC MAMMOGRAPHY COMPUTER-AIDED DETCEliu Tejeda MD [address] [place] [address] [facility] [address] [place] [address] Referral ID Status Reason Start Date Expiration Date V isits Requested Visits Authorized [id number] Closed Auto-Generate d Referral OON/Self Pay Override 10/09/2021 11/08/2022 1 1 [facility] Summary Purpose Family History No Family History Records FoundNo Family History Records FoundNo Family History Records Found Advance Directives No Advanced Directives Records FoundDocuments on File Type Date Recorded 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 Advance Directive(s) 07/21/2015 7:49 AM Advance Directive(s) 06/06/2015 3:22 PM Documents on File Type Date Recorded 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 Advance Directive(s) 07/21/2015 7:49 AM Advance Directive(s) 06/06/2015 3:22 PM Health Concerns Infection Onset Date Last Indicated Resolved Time COVID-19 Rule-Out 09/18/2021 09/18/2021 Infection Onset Date Last Indicated Resolved Time COVID-19 Rule-Out 09/18/2021 09/18/2021 09/19/2021 3:52 AM EDT COVID-19 Confirmed 09/18/2021 09/18/2021 Additional Source Comments INFORMATION SOURCE (unrecogn ized section and content) DATE CREATED AUTHOR AUTHOR'S ORGANIZ ATION 03/22/2023 [facility] DATE CREATED AUTHOR AUTHOR'S ORGANIZ ATION 04/09/2023 [facility] Source Comments (unrecognize d section and content) In the event this informatio n is protected by the Federal Confidentiality of Alcohol and Drug Abuse Patient Records regulations: The Federal rules restrict any use of the information to criminally investigate or prosecute any alcohol or drug abuse patient.[facility] the event this information is protected by the Federal Confidentiality of Alcohol and Drug Abuse Patient Records regulations: The Federal rules restrict any use of the information to criminally investigate or prosecute any alcohol or drug abuse patient.[facility] the event this information is protected by the Federal Confidentiality of Alcohol and Drug Abuse Patient Records regulations: The Federal rules restrict any use of the information to criminally investigate or prosecute any alcohol or drug abuse patient.[facility] the event this information is protected by the Federal Confidentiality of Alcohol and Drug Abuse Patient Records regulations: The Federal rules restrict any use of the information to criminally investigate or prosecute any alcohol or drug abuse patient.[facility] the event this information is protected by the Federal Confidentiality of Alcohol and Drug Abuse Patient Records regulations: The Federal rules restrict any use of the information to criminally investigate or prosecute any alcohol or drug abuse patient.[facility] the event this information is protected by the Federal Confidentiality of Alcohol and Drug Abuse Patient Records regulations: The Federal rules restrict any use of the information to criminally investigate or prosecute any alcohol or drug abuse patient.[facility] the event this information is protected by the Federal Confidentiality of Alcohol and Drug Abuse Patient Records regulations: The Federal rules restrict any use of the information to criminally investigate or prosecute any alcohol or drug abuse patient.[facility] the event this information is protected by the Federal Confidentiality of Alcohol and Drug Abuse Patient Records regulations: The Federal rules restrict any use of the information to criminally investigate or prosecute any alcohol or drug abuse patient.[facility] the event this information is protected by the Federal Confidentiality of Alcohol and Drug Abuse Patient Records regulations: The Federal rules restrict any use of the information to criminally investigate or prosecute any alcohol or drug abuse patient.[facility] the event this information is protected by the Federal Confidentiality of Alcohol and Drug Abuse Patient Records regulations: The Federal rules restrict any use of the information to criminally investigate or prosecute any alcohol or drug abuse patient.[facility] Reason for Visit (unrecogniz ed section and content) Reason Comments Results Specialty Diagnoses / Procedures Referred By Contac t Referred To Contact GENERAL SURGERY Diagnoses u/s right breast bx next saturday @ 1:30 Procedures u/s right breast bx next saturday @ 1:30 Eliu Darby MD [address] [place] [id number] [facility] [address] [place] [address] Referral ID Status Reason Start Date Expiration Date Visits Requested Visits Authorized [id number] Pending Review OON/Self Pay Override 10/06/2021 01/04/2022 1 1 Reason Comments Consult C/o stomach burning and sour, nausea is mild and diarrhea is chronic Specialty Diagnoses / Procedures Referred By Contac t Referred To Contact [facility] Diagnoses consult Procedures OFFICE CONSULTATION NEW/ESTAB PATIENT 15 MIN Haile Zarco MD [address] [place] [address] [facility] [place] [address] [place] [address] Referral ID Status Reason Start Date Expiration Date Visits Requested Visits Authorized [id number] Outside PCP OON/Self Pay Override 01/31/2022 05/01/2022 1 1 Reason Comments Patient Update Procedure Reason Comments Nausea Pt reported chills, body aches, x3 days. Reason Comments Consult EGD Reason Comments Consult Left axilla biopsy, abnormal US Specialty Diagnoses / Procedures Referred By Contac t Referred To Contact GENERAL SURGERY Diagnoses Breast Biopsy Consult - Images requested 03/04/2023 - PCP Referring - In Scanned Doc Procedures NEW DDI PATIENT Haile Zarco MD [address] [address] [facility] [address] [place] [address] Referral ID Status Reason Start Date Expiration Date Visits Requested Visits Authorized [id number] Outside PCP OON/Self Pay Override 3 09/01/2023 1 1 Care Teams (unrecognized sec tion and content) Knitted Cloth Examiner Relationship Specialty Start Date End Date Haile Zarco MD PCP - General 01/15/08 Knitted Cloth Examiner Relationship Specialty Start Date End Date Haile Zarco MD PCP - General 01/15/08 Knitted Cloth Examiner Relationship Specialty Start Date End Date Haile Zarco MD PCP - General 01/15/08 Knitted Cloth Examiner Relationship Specialty Start Date End Date Haile Zarco MD PCP - General 01/15/08 Knitted Cloth Examiner Relationship Specialty Start Date End Date Haile Zarco MD PCP - General 01/15/08 Knitted Cloth Examiner Relationship Specialty Start Date End Date Haile Zarco MD PCP - General 01/15/08 Knitted Cloth Examiner Relationship Specialty Start Date End Date Haile Zarco MD PCP - General 01/15/08 Knitted Cloth Examiner Relationship Specialty Start Date End Date Haile Zarco MD PCP - General 01/15/08 FOR RECORDS PERTAINING TO PATIENTS [...] BE BASED ON THE PRIMARY CLINICAL RECORDS. [facility] [employer] [facility]. provides no warranty or guarantee of the accuracy or completeness of information in this document.
[2023-04-09 11:51] LABS: CREATININE FINGERSTICK < 1.0 mg/dL (0.55-1.02); EGFR FINGERSTICK > 60.0000 mL/min (>60)
== END | disposition home or self-care (01) ==
PROVIDERS: PCP Family Medicine; Referring Provider Internal Medicine Hematology & Oncology; Visit Provider Internal Medicine Hematology & Oncology
DX: C77.3 Secondary and unspecified malignant neoplasm of axilla and upper limb lymph nodes (principal); C50.912 Malignant neoplasm of unspecified site of left female breast; Z17.1 Estrogen receptor negative status [ER-]
CPT/HCPCS: 77049; A9575; A4216; C8908

== ENCOUNTER 2023-04-22 11:36 | Day surgery (SDC) | payer BC, SELFPAY ==
--- NOTE | 2023-04-22 12:05 | HP.PCM_ITS ---
History and Physical Date of Admission: 04/22/23 Intake Vital Signs 01/16/2310:43 04/17/2407:22 Height 5 ft 5 in 5 ft 5 in Weight: 123 lb BMI 20.5 BP 100/61 Blood Pressure Location Lt brachial Position Sitting Respiration 17 Pulse 63 Pulse Source Monitor Temp 97.1 F L Temp Source Temporal Pulse Oximetry (%) 100 Oxygen Delivery Method room air Intake Visit Reasons: PORT PLACEMENT Chief Complaint: port placement Is patient in pain?: No Allergies sulfamethoxazole [From Bactrim] Allergy (Unknown, Verified 04/17/23 08:24) Nausea/Vom/Diarrheatrimethoprim [From Bactrim] Allergy (Unknown, Verified 04/17/23 08:24) Nausea/Vom/Diarrhea Medications paroxetine HCl 30 mg tablet 30 mg PO DAILY anxiety 11/03/19 [History Confirmed 04/17/23] nmackd-fdosvzzo-mikcsod 12,000-38,000-60,000 unit capsule,delayed rel 1 cap PO TID digestive enzyme 11/27/19 [History Confirmed 04/17/23] acetaminophen 325 mg tablet 650 mg (2 x 325 mg) PO Q6H PRN PRN Pain Score 1- 10/Temp > 100.7 F 11/29/19 [Rx Confirmed 04/17/23] Saccharomyces boulardii 250 mg capsule 250 mg PO BID digestion/probiotic 12/18/19 [History Confirmed 04/17/23] lorazepam 1 mg tablet 0.5 - 1 mg PO TID PRN Anxiety 12/18/19 [History Confirmed 04/17/23] ondansetron HCl 8 mg tablet 4 - 8 mg PO Q8H PRN PRN Nausea 12/18/19 [History Confirmed 04/17/23] calcium carbonate 600 mg calcium (1,500 mg) tablet (Calcium) 800 mg PO DAILY 04/17/23 [History Confirmed 04/17/23] cholecalciferol (vitamin D3) 25 mcg (1,000 unit) capsule 25 mcg PO DAILY [History Confirmed 04/17/23] magnesium oxide 500 mg capsule 250 mg PO DAILY 04/17/23 [History Confirmed 04/17/23] [facility] Medical History (Updated 04/17/23 @ 08:21 by Shira Amin) Anxiety Arthritis Breast cancer Diarrhea Gallbladder polyp GERD (gastroesophageal reflux disease) Surgical History History of breast augmentation (~2006) History of colonoscopy (~2014) History of colonoscopy (~01/2020) History of esophagogastroduodenoscopy (EGD) (~01/2020) History of lumpectomy History of tubal ligation (~1992) Family History (Updated 04/17/23 @ 08:22 by Shira Amin) Grandfather DiabetesGrandmother Hypertension CVA (cerebral vascular accident) Social History Smoking Status: Never smoker alcohol intake: never HPI HPI HPI: Patient is a 62-year-old female with past medical history of right breast cancer. She currently has left breast cancer with positive lymph nodes on the left. She is here for port placement on the right. She is having neoadjuvant chemotherapy and then return to [facility] for surgery. ROS General General: Yes breast cancer; No weight change, appetite, fatigue, colon cancer or weakness HEENT HEENT: Yes eye surgery; No difficulty swallowing, eye injury, swollen glands or hoarseness Endo Endocrine: No thyroid disease, diabetes mellitus, thyroid cancer, Hair loss, heat intolerance or cold intolerance Skin Skin: No rash or changing moles Musc Musculoskeletal: No back problems, arthritis, rheumatoid arthritis, gout or joint pain Cardio Cardiovascular: No murmur, pacemaker, heart disease, atrial fibrillation, high blood pressure, heart attack, heart stent, palpitations, shortness of breat with exertion or chest pain Psych Psychiatric: Yes anxiety; No depression or hearing voices Resp Respiratory: No shortness of breath, No sleep apnea, No cough, No COPD, No asthma, No emphysema and No wheezing Gastro Gastrointestinal: No abdominal pain, No nausea or vomiting, No diarrhea, No constipation, No blood in stool, No acid reflux, No hemorrhoids, No ulcers, No gallbladder problem and No black,tarry stools Layo Hematologic: No blood thinners, No blood disorders, No bleeding, No anemia and No blood clots Neuro Neurologic: No system reviewed and no additional complaints, except as documented, No as per HPI, No abnormal gait, No abnormal hearing, No abnormal movements, No abnormal speech, No behavioral changes, No burning sensations, No confusion, No convulsions, No disequilibrium, No dizziness, No localized weakness, No frequent falls, No headache(s), No lack of coordination, No loss of vision, No memory loss, No numbness, No other visual disturbances, No radicular pain, No restless legs, No sensory deficit, No syncope, No tingling, No tremor(s), No weakness and No other Exam Const General: cooperative Orientation: alert and oriented x3 HENMT Head: normal to inspection Neck Neck: normal visual inspection and full ROM Chest Chest palpation & inspection: normal inspection of the chest Resp Effort & Inspection: normal respiratory effort Auscultation: clear to auscultation bilaterally Cardio Rate: regular rate Rhythm: regular rhythm GI Inspection: non-distended Palpation: soft and nontender Skin General: no rashes or lesions noted Neuro General: patient alert and patient oriented x3 Extrem General: full ROM Psych Appearance: grossly normal Mental Status: mental status grossly normal Assessment and Plan Assessment and Plan (1) Encounter for insertion of venous access port: Status: Acute Plan: I discussed right chest port placement with the patient in detail. I discussed the risks including but elevated to bleeding, infection, Pneumothorax line infection or DVT. Patient or stands the risks and is willing to proceed. Arben Mccann MD Pager: [facility] [address] [place] [address], [address] [place] [address] Office: I have examined the patient and the H&P has been reviewed. There are no clinical changes since date of exam.
[2023-04-22 12:12] VITALS: BP 129/59; PULSE 74; RESP 18; TEMP 36.5; O2SAT 100; BMI 19.8
[2023-04-22] MEDS: Lactated Ringers 1,000 ML 15 ML IV (12:17)
[2023-04-22] MEDS: Cefazolin 2 GM in 0.9% Normal Saline (100mL Bag) 100 ML IV (13:16)
[2023-04-22] MEDS: Bupivacaine Mpf 0.5% 30 ML VIAL (13:32)
[2023-04-22] MEDS: Lidocaine 1% /Epi 1:100 (20ml) 20 ML Vial (13:33)
[2023-04-22 13:43] VITALS: BP 115/49; BP 129/59; PULSE 71; RESP 16; TEMP 36.8; O2SAT 99
[2023-04-22 13:50] VITALS: BP 107/50; BP 129/59; PULSE 67; RESP 16; O2SAT 100
--- NOTE | 2023-04-22 13:50 | RAD_ITS ---
STUDY: X-RAY CHEST REASON FOR EXAM: Female, 62 years old. PORT PLACEMENT - STAT WET READ TECHNIQUE: Single AP portable view of the chest. COMPARISON: None. FINDINGS: A right-sided boby catheter has been placed with the tip at the junction of the superior vena cava and right atrium. EKG electrodes are seen. Hyperinflation. There is no demonstrated pleural abnormality. Normal size heart. Normal mediastinum and odilia. Normal visualized pulmonary arteries. There is atherosclerotic calcification of the aortic arch with tortuosity. Normal visualized thoracic spine. Normal visualized ribs, clavicles, and shoulders. There is no demonstrated abnormality of the visualized soft tissue structures of the upper abdomen. RAD/CXR for Line Placement IMPRESSION: The tip of the right boby catheter is at the junction of the superior vena cava and right atrium. Electronically Signed: Michel Adler MD at 14:04 EST ,
[2023-04-22 13:55] VITALS: BP 107/56; BP 129/59; PULSE 67; RESP 16; O2SAT 100
--- NOTE | 2023-04-22 13:58 | PCM.OPRPT ---
Report of Operation Date of Procedure: 04/22/23 Pre-Operative Diagnosis: Cancer and need for vascular access for chemotherapy Post-Operative Diagnosis: Same Surgery/Procedure Performed:: Ultrasound and fluoroscopy guided right chest port placement utilizing right IJ Type of Anesthesia: Local MAC Estimated Blood Loss (mL): 10 Description of Procedure: After obtaining informed consent patient was brought back to the operating room MAC anesthesia was induced and the right chest and neck were prepped in normal sterile fashion. Ultrasound was used to evaluate both IJs and the right IJ was selected. Next, using a needle, the right IJ was accessed and a guidewire was passed on into the superior vena cava under fluoroscopy guidance. A small incision was made over the puncture site and the dilator introducer was placed over the guidewire. Next this was capped and the pocket was made for the port. 1% lidocaine with epinephrine was injected in the proposed port site. An incision was made with scalpel. Electrocautery was used to make a pocket under the skin and subcutaneous tissue. Hemostasis was obtained. Next, the catheter was tunneled up to the neck incision site and placed through the introducer. The peel-away introducer was removed and the position of the catheter was confirmed on fluoroscopy. Next, the catheter was trimmed and attached to the port with the locking device. Interrupted 2-0 Vicryl sutures were used to anchor the port to the chest wall and then the port was placed inside the pocket. The pocket was then flushed with saline and the port irrigated with saline. There was good blood return and the port flushed easily. Next, heparin was injected into the port. The skin was closed with subcutaneous interrupted 3-0 Vicryl sutures. A single 3-0 Vicryl sutures placed under the skin at the neck incision site. Steri-Strips were placed as well as op sites. Patient tolerated procedure well, was taken to PACU in stable condition. Chest x-ray will be obtained. Grafts/Implants Used: 8 [employer] PowerPort Admit VTE Documentation VTE Mechan Device Prophylaxis: SCD's
--- NOTE | 2023-04-22 13:59 | DCINST_ITS ---
Discharge Instructions Procedure Port-A-Cath Diet Discharge Diet: Light diet - advance as tolerated (Pain medication may cause nausea. You should typically eat light foods as you take your pain medication.) Activity Discharge Activity: Return to Normal Activity and May Shower (with your bandage in place in 1 day after surgery.) Lifting Restrictions: 15 lbs for 1 week Dressing / Incision Call your doctor if your incision/area has: Continuous Slow Oozing, Sudden Increased Bleeding, Increased Pain/ Swelling, Increased Redness and Foul Smelling Discharge Call your doctor if you observe: Fever of 101 or Higher Remove Dressing in: 2 days (Remove clear bandage in 2 days, remove Steri-Strips in 7 to 10 days. Okay to remove bandage in place and cream over the Port before accessing. Try not to get cream over the incision part.) Cleanse incision/area with: Soap & Water Follow Up Care Please Follow Up With: Arben Mccann MD When: as needed [phone] Test Results: Test results from this visit will be discussed in further detail at your follow- up appointment, if applicable. Discharge Plan Admission Attending Provider: Arben Mccann Primary Care Provider: Mirza Lafleur Instructions Additional Instructions / Restrictions: Alternate ibuprofen and Tylenol for pain. Okay to use port on . Discharge Orders/Prescriptions Prescriptions: No Action paroxetine HCl 30 mg tablet 30 mg PO DAILY calcium carbonate [Calcium 600] 600 mg calcium (1,500 mg) tablet 800 mg PO DAILY cholecalciferol (vitamin D3) 25 mcg (1,000 unit) capsule 25 mcg PO DAILY magnesium oxide 500 mg capsule 250 mg PO DAILY ondansetron HCl 8 MG tablet 4 - 8 mg PO Q8H PRN PRN (Reason: Nausea) Saccharomyces boulardii 250 MG capsule 250 mg PO BID multivitamin [Daily Multi-Vitamin] Tablet 1 tab PO DAILY Referrals / Follow Up: Mirza Lafleur MD [Primary Care Provider] - Disposition Disposition (needs filled in before D/C Order can be placed): Home, Self Care
[2023-04-22 14:01] VITALS: BP 107/56; BP 129/59; PULSE 65; RESP 16; TEMP 36.8; O2SAT 100
[2023-04-22 14:50] VITALS: BP 129/59
== END 2023-04-22 14:54 | disposition home or self-care (01) ==
LOC: SDC 11:37 → AC 11:37
PROVIDERS: PCP Family Medicine; Referring Provider Surgery; Visit Provider Surgery
PROC: (CPT 36561; principal; 2023-04-22 14:00)
DX: Z45.2 Encounter for adjustment and management of vascular access device (principal); C50.912 Malignant neoplasm of unspecified site of left female breast; F41.9 Anxiety disorder, unspecified; Z79.899 Other long term (current) drug therapy
CPT/HCPCS: 36561; 00532; 71045; 77001; J7120; C1788

== ENCOUNTER → 2023-09-03 | Outpatient (CLI) | payer BC, SELFPAY ==
--- NOTE | 2023-09-03 08:00 | PET_ITS ---
EXAMINATION: FDG PET/CT ? INDICATIONS: 63-year-old female with a history of primary breast carcinoma, presenting for restaging examination. ? COMPARISON EXAMINATION: FDG-PET CT study dated 04/09/2023. ? TECHNIQUE: Following the intravenous administration of 12.9 mCi of F-18 deoxyglucose via the left antecubital fossa, multiplanar image acquisitions of the head, neck, chest, abdomen and pelvis to the level of the midthigh, obtained at one-hour post radiopharmaceutical administration contemporaneously interpreted with the current CT of the chest, abdomen and pelvis dated 09/03/2023 and prior FDG-PET CT study dated 04/09/2023 via coregistration reveal: ? SERUM GLUCOSE LEVEL:? 116 mg/dL? HEIGHT:?? 65 inches WEIGHT:?? 122 pounds ? FINDINGS: ? HEAD/NECK:? There is no evidence of abnormal increased glucose metabolism in the pharyngeal mucosal space, parapharyngeal space, oropharynx, bilateral-lateral and anterior neck, hypopharynx and distribution of the larynx. ? The visualized portion of the cerebral cortical-subcortical structures demonstrate symmetric and preserved glucose metabolism. ? CHEST:? Facilitated uptake remains apparent in the left axilla generating a calculated standard uptake value of 1.3 compared to 5.2. The prior defined left retropectoral abnormalities are not apparent on the current examination. The left ventricular myocardium visualization is consistent with the fed state. ? CT of the chest demonstrates the following anatomic characteristics: On review of CT of the chest, there is no definitive interval change compared to the study dated 04/09/2023. ? ABDOMEN/PELVIS:? Normal physiologic distribution of the radiopharmaceutical is identified in the hepatic and splenic parenchyma, both renal units, urinary bladder, and visualized intestinal tract. ? CT of the abdomen and pelvis is remarkable for the following: On review of CT of the abdomen/pelvis there is no definitive interval change compared to the study dated 04/09/2023. ? SKELETAL:? There is no evidence of quantitatively significant enhanced glucose metabolism on meticulous inspection of the appendicular and axial skeletal structures. ? Degenerative changes defined in the thoracic and lumbar spine demonstrate no evidence of increased glucose metabolism. There are no sclerotic, mixed sclerotic-lytic, or primarily lytic changes defined in the axial skeletal structures with evidence of increased FDG uptake. ? PET/PET/CT Tumor Base -Thigh Subs IMPRESSION: 1. NEGATIVE EXAMINATION. There is no definitive quantitative scintigraphic evidence of recurrent-viable neoplasm. 2. Redefined increased FDG uptake noted in the left axilla does not fulfill quantitative criteria for viable neoplasm. 3. There is interim resolution of the prior defined left retropectoral abnormalities, which are not apparent on the current examination. 4. Overall, compared to the prior FDG-PET CT study dated 04/09/2023, there is current absence of defined viable neoplastic disease with an interim quantitative complete metabolic response regarding the persistent scintigraphic abnormality, as well as resolution of the prior defined hypermetabolic foci. Electronic Signature Harman Do D.O. Accurate Quantification of SUVs for this report are calculated using the exclusive [employer]. (U.S. Patent No. [id number] [phone] B2 [phone] [place] patent [phone]). Standardization and correction of the FDG SUV metric via Access [employer] technology allow for vendor non-specific objective quantitative examination comparison and optimization of the sensitivity and specificity of the FDG PET-CT examination. . [email or web address]/[email or web address] Electronically Signed: Harman Do DO at 23:09 EDT ,
== END | disposition home or self-care (01) ==
PROVIDERS: PCP Family Medicine; Referring Provider Internal Medicine Hematology & Oncology; Visit Provider Internal Medicine Hematology & Oncology
DX: C50.812 Malignant neoplasm of overlapping sites of left female breast (principal); C77.3 Secondary and unspecified malignant neoplasm of axilla and upper limb lymph nodes; C50.912 Malignant neoplasm of unspecified site of left female breast; Z17.1 Estrogen receptor negative status [ER-]
CPT/HCPCS: 78815; A9552

== ENCOUNTER → 2024-04-07 | Outpatient (CLI) | payer OTHER, SELFPAY ==
--- NOTE | 2024-04-07 16:43 | RAD_ITS ---
EXAM: XR LUMBOSACRAL SPINE COMPLETE WITH FLEXION/EXTENSION, 6 VIEWS CLINICAL INDICATION: R leg radiculopathy TECHNIQUE: Lateral, frontal, oblique and lateral flexion/extension views of the lumbar spine and sacrum. COMPARISON: No relevant prior studies available. FINDINGS: VERTEBRAE: Unremarkable. Preserved vertebral body height. No fracture. No spondylolisthesis. Preservation of the normal lumbar lordosis on the neutral view. Mild facet joint arthropathy multiple levels. DISC SPACES: Moderate disc space narrowing at L2-3 with asymmetric disc space on the frontal view minimal scoliosis, prominent left L2-3 spondylosis. Asymmetric narrowing of the right L3-4 disc space on the frontal view. Marked disc space narrowing at L5-S1. Mild disc space narrowing at L4-5. MOTION: The usual lordotic curvature appears unchanged on exam labeled flexion, it is minimally accentuated on exam labeled extension. Limited mobility. GASTROINTESTINAL TRACT: Unremarkable as visualized. Included bowel gas pattern is non-obstructive. Moderate stool in the rectosigmoid and right colon. RAD/L/S Spine w Bend Min 6 Vw IMPRESSION: Multilevel degenerative disc changes with asymmetric narrowing at multiple levels. Marked narrowing L5-S1. No evidence of lumbar spinal fracture or spondylolisthesis. No instability. Very limited mobility on flexion and extension, only minimally accentuated lordosis on the extension view. Electronically Signed: Thu Moulton MD at 1:49 EST ,
== END | disposition home or self-care (01) ==
LOC: MTRAD 16:43
PROVIDERS: PCP Family Medicine; Referring Provider Family Medicine; Visit Provider Family Medicine
DX: M54.41 Lumbago with sciatica, right side (principal)

== ENCOUNTER 2024-06-30 15:00 | Outpatient (RCR) | payer MEDICARE, OTHER, SELFPAY ==
--- NOTE | 2024-04-27 15:01 | HP.PTEVAL ---
Patient's Visit Information Visit Information Visit Information: Everette DICKINSON is a 63 year old F referred to Physical Therapy by Dr. 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 Date of Evaluation: 04/27/24 Physical Therapist: Chase Manjarrez, PT, Cert MDT, OCS Visit Plan Frequency: 1-2x /Week Duration: 4 Weeks Plan: PT INTERVENTIONS DLS ,POSTURAL EX'S ,LE FLEXABILITY ,ACTIVITY MODIFICATION AND MODALTIES Subjective Subjective: This 63 y/o female presents to physical therapy with lumbar radiculopathy . Patient started with symptoms Dec 2023 . Initially injury occurred with lifting something heavy and 2nd lifting KB. Patient symptoms worse in night in calf. Patient experienced calf symptoms since Feb . Seen DR did 2 rounds of prednisone and gabapentin.X-rays multilevel degenerative disc changes with asymmetric narrowing at multiple levels. Marked narrowing L5-S1. Patient had mild pain calf and foot. Aggravating sitting ,lifting . Alleviating factors walking standing. Coughing/sneezing -. Bowel/bladder-. Sleeping good pain can hinder sleep. Patient workouts 3 x/week. Patient condition affects QOL /function and working out. Patient goals to have no more pain. 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 Pain Right: Pain Intensity (Out of 10): 1 Pain Intensity Range: 10 Right Lower Extremity: Pain Intensity (Out of 10): 1 Pain Intensity Range: 10 Comment: calf Objective Objective: POSTURE: mild forward posture GAIT: reciprocal pattern PALAPTION: unremarkable FLEXABILITY: hamstrings mod tight + MMT: quads/hams/hip ,ankle 4/5 LUMBAR ROM: flexion mod loss ,extension mod loss ,side glides mod loss Special Tests L/S Slump test left side: Negative L/S Slump test right side: Negative L/S Left Straight Leg Raise: Negative L/S Right Straight Leg Raise: Negative Lumbar Standing: Flexion - Mechanical Response: No effect Lumbar Standing: Flexion - Symptoms During Testing: Increases Lumbar Standing: Flexion - Symptoms After Testing: No worse Comments:: calf Lumbar Standing: Extension - Mechanical Response: No effect Lumbar Standing: Extension - Symptoms During Testing: Increases Lumbar Standing: Extension - Symptoms After Testing: No worse Comments:: back Lumbar Standing: Right Side Glides - Mechanical Response: No effect Lumbar Standing: Right Side [place] - Symptoms During Testing: No effect Lumbar Standing: Right Side [place] - Symptoms After Testing: No effect Lumbar Standing: Left Side [place] - Mechanical Response: No effect Lumbar Standing: Left Side [place] - Symptoms During Testing: No effect Lumbar Standing: Left Side [place] - Symptoms After Testing: No effect Lumbar Lying: Flexion - Mechanical Response: No effect Lumbar Lying: Flexion - Symptoms During Testing: Increases Lumbar Lying: Flexion - Symptoms After Testing: No worse Comments:: back right side Balance/Special Test Scores Oswestry Low Back Score: 5 Goals Goal 1:: Patient to be I with HEP for back Goal Time Frame: 4-6 Weeks Goal 2:: Patient to demonstrate 60% improvement with less pain and improved function Goal Time Frame: 4-6 Weeks Goal 3:: Patient to improve lumbar ROM for function of recovery for lifting and ADL Goal Time Frame: 4-6 Weeks Goal 4:: Patient to improve back oswestry score by 5 points to improve function and QOL Goal Time Frame: 4-6 Weeks Rehabilitation Potential Physical Therapy Diagnosis: This patient has lumbar radiculopathy with possible foraminal stenosis with symptoms worse with positioning and motion testing thus benefit from skilled PT Rehabilitation Potential: Good Anticipated Interventions Patient/Client Instruction: Educate patient on: Condition and Plan of Care For the Purpose of:: To decrease pain, To increase ROM, To improve muscle performance and motor function, To improve ability to perform ADL's, To increase tolerance to activity/condition/position, To improve ability of physical actions for home/community/work/leisure, To improve health of tissue, To decrease soft tissue restriction, To increase flexibility/ROM, To reduce risk of recurrence and To improve tolerance to ADL's Therapeutic Exercise to Include: Strength training, Postural training, Flexibilty training, Dynamic Lumbar Stabilization and Prem Exercises For the Purpose of:: To decrease pain, To increase ROM, To improve muscle performance and motor function, To increase tolerance to activity/condition/position, To improve performance and independence with ADL's, To improve ability of physical actions for home/community/work/leisure, To improve health of tissue, To decrease soft tissue restriction, To increase flexibility/ROM, To reduce risk of recurrence and To improve tolerance to ADL's TENS: Yes IF ES: Yes Cryotherapy (ice pack, ice massage): Yes Thermo therapy (hot pack): Yes Ultrasound (thermal/non thermal): Yes For the Purpose of:: To decrease pain, To increase ROM and To improve health of tissue Text: Thank you for the opportunity to evaluate your patient. For Medicare and Medicare HMO plans, please review the plan of care and approve it. It will need to be FAXED BACK to us at [phone] for Medicare purposes. For Medicare only, by signing this I certify the plan of care. Please let me know if there are questions or concerns regarding this plan of care. Physician Signature: Date:
--- NOTE | 2024-06-30 15:10 | HP.PTDCSUM ---
Discharge Summary D/C summary: It has been my pleasure to treat Everette DICKINSON referred by Dr. 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 Discharge Date: 06/30/24 Please see the following information for a summary of their discharge status. Subjective Subjective: Doing well no pain Pain Right: Pain Intensity (Out of 10): 0 Right Lower Extremity: Pain Intensity (Out of 10): 0 Overall Improvement % Improvement: 80 Objective Objective/Function: POSTURE: mild forward posture GAIT: reciprocal pattern PALAPTION: unremarkable FLEXABILITY: hamstrings mod tight + MMT: quads/hams/hip ,ankle 4/5 LUMBAR ROM: flexion min loss ,extension mod loss ,side glides min loss Goals Goal 1:: Patient to be I with HEP for back Goal Progress: Goal Met Goal 2:: Patient to demonstrate 60% improvement with less pain and improved function Goal Progress: Goal Met Goal 3:: Patient to improve lumbar ROM for function of recovery for lifting and ADL Goal Progress: Goal Met Goal 4:: Patient to improve back oswestry score by 5 points to improve function and QOL Plan Plan: D/C D/C Information Discharge Comments: HEP d/c sentence: If there are questions or concerns regarding this patient's physical therapy, please feel free to call me at [phone]. Thank you for the referral of this patient. Sincerely, Chase Manjarrez, PT, Cert MDT, OCS Balance/Gait/Functional tests Balance/Special Test Scores Oswestry Low Back Score: 0 Improvement % Improvement: 80
== END 2024-06-30 19:00 | disposition home or self-care (01) ==
LOC: PT 15:00
PROVIDERS: PCP Family Medicine; Referring Provider Family Medicine; Visit Provider Family Medicine
DX: M51.369 Other intervertebral disc degeneration, lumbar region without mention of lumbar back pain or lower extremity pain (principal)
CPT/HCPCS: 97110; 97162; 97530

== ENCOUNTER → 2024-08-04 | Outpatient (CLI) | payer MEDICARE, OTHER, SELFPAY ==
--- NOTE | 2024-08-04 07:30 | PET_ITS ---
PROCEDURE: PET/CT TUMOR BASE -THIGH SUBS 08/04/2024 REASON FOR EXAM: 64 y/o F with BREAST TECHNIQUE: Following the intravenous administration of radionucleotide, image acquisition on a dedicated PET/CT unit was performed at one hour post injection. A preliminary CT study encompassing the Skull base, neck, chest, abdomen, pelvis, and proximal thighs was performed for purposes of attenuation correction and anatomic localization. The proximal thighs were also included. The patient's blood glucose level was 108 mg/dL (allowable range: 50-180 mg/dL). RADIOPHARMACEUTICAL: 13.47 mCi 18F-FDG (Fluorodeoxyglucose F18) IV was injected into he patient. RADIATION DOSE SUMMARY: Effective Dose: Approximately 7 mSv for a standard whole-body PET scan Organ Doses: Varies by organ, with higher doses typically to the bladder, liver, and brain COMPARISON: COMPARISON FROM CT, PET OR OTHER PERTINENT EXAMS: PET/CT of 09/03/2023. FINDINGS: Physiologic uptake: There may be expected metabolic uptake within the brain, tongue and floor of the mouth and larynx/vocal cords, heart, odilia (many normal individuals have hilar uptake in less than 3 nodes with mildly avid hilar nodes less than 2.7 SUV), liver and spleen, system, and GI tract and symmetric muscle uptake. FDG AVID AND NON-AVID LESIONS. Reported avid SUV values (g/mL*) are maximum SUV. NECK: There are no significant neck abnormalities. CHEST: Breasts and chest wall- In the medial right breast, overlying the breast prosthesis, is seen a new breast mass, with increased metabolism, and SUV max of 2.6. This is concerning for malignancy. In addition to marked skin thickening, increased uptake is seen throughout much of the left breast. This is concerning for Paget's disease of the breast versus infection/inflammation versus post radiation change. Bilateral breast prostheses are seen. Axilla- There are no significant axillary abnormalities. Lung parenchyma- There are no significant lung parenchyma abnormalities. Mediastinum- There are no significant hilar or mediastinal adenopathy. Pleura- There are no significant pleural abnormalities. ABDOMEN: Stomach- No significant abnormalities. Liver- No significant abnormalities. Spleen- No significant abnormalities. Pancrease- No significant abnormalities. Kidneys- No significant abnormalities. Bowel- Normal bowel activity. Spine- No significant abnormalities. PELVIS: Bowel- Normal physiologic bowel activity is identified. Masses- There are no pelvic masses. LOWER EXTREMITIES: Bones- With the use of bone window settings, there are no osteolytic or osteoblastic lesions. There are no FDG avid lesions within the visualized portion of the axial skeleton. PET/PET/CT Tumor Base -Thigh Subs IMPRESSION: FDG avid- In the medial right breast, overlying the breast prosthesis, is seen a new du[address] st mass, with increased metabolism. This is concerning for malignancy. In addition to marked skin thickening, increased uptake is seen throughout much of the left breast. This is concerning for Paget's disease of the breast versus infection/inflammation versus post radiati on change. Other: Bilateral breast prostheses in place. Please note the low-dose CT scan was performed to facilitate PET image reconstr uction and anatomic localization and does not replace a diagnostic CT. Any diagnostic CT requested and performed at the time of the PET will be reported separately. Reading Location: [place] [id number]
== END | disposition home or self-care (01) ==
LOC: ONC 07:08
PROVIDERS: PCP Family Medicine; Referring Provider Internal Medicine Hematology & Oncology; Visit Provider Internal Medicine Hematology & Oncology
DX: C50.812 Malignant neoplasm of overlapping sites of left female breast (principal); C79.2 Secondary malignant neoplasm of skin; Z17.1 Estrogen receptor negative status [ER-]; Z17.421 Hormone receptor negative with human epidermal growth factor receptor 2 negative status
CPT/HCPCS: 78815; A9552

== ENCOUNTER → 2024-09-17 | Outpatient (CLI) | payer MEDICARE, OTHER, SELFPAY ==
--- NOTE | 2024-09-17 17:24 | RAD_ITS ---
PROCEDURE: CERV SPINE 4 OR 5 VIEWS 09/17/2024 REASON FOR EXAM: L ARM PAIN, WEAKNESS, ULNAR DISTRIBUTION TECHNIQUE: CERV SPINE 4 OR 5 VIEWS COMPARISON: None. FINDINGS: Grade 1 retrolisthesis of C2 on C3. Grade 1 retrolisthesis of C3 on C4. Grade 1 anterolisthesis of C4 on C5. Grade 1 anterolisthesis of C7 on T1. There are diffuse spondylotic changes. Findings are demonstrated to by diffuse disc space narrowing, osteophyte formation and degenerative endplate sclerosis. There is diffuse facet joint arthropathy with secondary bilateral neural foramina narrowing. No fracture or dislocation is seen. No aggressive lytic or blastic bony lesion is noted. RAD/Cerv Spine 4 or 5 Views IMPRESSION: Spondylosis. Grade 1 retrolisthesis of C2 on C3. Grade 1 retrolisthesis of C3 on C4. Grade 1 anterolisthesis of C4 on C5. Grade 1 anterolisthesis of C7 on T1. Reading Location: [facility]
== END | disposition home or self-care (01) ==
PROVIDERS: PCP Family Medicine; Referring Provider Family Medicine; Visit Provider Family Medicine
DX: G56.22 Lesion of ulnar nerve, left upper limb (principal)
CPT/HCPCS: 72050

== ENCOUNTER → 2024-10-13 | Outpatient (CLI) | payer MEDICARE, OTHER, SELFPAY ==
--- NOTE | 2024-10-13 15:16 | NEURO ---
NCS and/or EMG Patient Report Ordering Doctor: Santana Arellano NP DATE OF SERVICE: 10/13/24 Clinical Summary: 64 year old female with symptoms of numbness and weakness in the left upper extremity. Nerve Conduction Studies Summary: Nerve conduction studies performed in the left upper extremity were within normal ranges. Needle Examination Summary: Needle examination of select muscles of the left upper extremity demonstrated increased insertional activity and spontaneous activity (positive sharp waves and fibrillation potentials) in the left deltoid, triceps, extensor carpi radialis, extensor carpi ulnaris, extensor indicis proprius muscles. There was a higher proportion of motor unit action potentials with reduced recruitment, increased amplitude, increased duration, and polyphasia in the left triceps, extensor carpi radialis, extensor carpi ulnaris, extensor indicis proprius muscles Impression: This is an abnormal study. There is electrodiagnostic evidence of a left brachial plexopathy with predominant involvement of the left posterior cord. Multi Select Codes Neurology Neurology Interp Codes: 16508-93 Musc test done w/n test comp (interp) (1) and 99636-24 Nrv cndj test 7-8 studies (interp)
== END | disposition home or self-care (01) ==
LOC: PSN 13:43
PROVIDERS: PCP Family Medicine
DX: R20.0 Anesthesia of skin (principal); R20.2 Paresthesia of skin
CPT/HCPCS: 95886; 95910

== ENCOUNTER → 2024-11-19 | Outpatient (CLI) | payer MEDICARE, OTHER, SELFPAY ==
--- NOTE | 2024-11-19 09:31 | MRI_ITS ---
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 FINDINGS: Diffuse thickening enhancement of the anterior chest wall, more prominent on the left side. Diffuse thickening enhancement with associated edema of the left pectoralis muscles, findings can be secondary to prior treatment and/or neoplastic infiltration. Heterogeneous, multifocal nodular soft tissue thickening/infiltration surrounding the left brachial plexus just distal to the level of the corresponding left neural foramina encasing the left brachial plexus in the interscalene space, subclavian space and extending to the left axillary fossa suggestive of diffuse neoplastic infiltration. Secondary diffuse thickening, edema and abnormal enhancement of the left brachial plexus. Mildly enlarged left retropectoral/left axillary lymph nodes are noted with the largest measuring 1.2 cm, probably metastatic. Mildly heterogeneous signal intensity of the visualized medial aspects of the clavicles, possibly secondary to prior treatment. MRI/Upper Ext No Joint W/WO Cont IMPRESSION: Diffuse thickening enhancement of the anterior chest wall, more prominent on th e left side. Diffuse thickening enhancement with associated edema of the left pectoralis mus cles, findings can be secondary to prior treatment and/or neoplastic infiltration. Heterogeneous, multifocal nodular soft tissue thickening/infiltration surroundi ng the left brachial plexus just distal to the level of the corresponding left neural foramina encasing the left brachial plex us in the interscalene space, subclavian space and extending to the left axillary fossa suggestive of diffuse neoplastic infiltrat ion. Secondary diffuse thickening, edema and abnormal enhancement of the left brachi al plexus. Mildly enlarged left retropectoral/left axillary lymph nodes are noted with the largest measuring 1.2 cm, probably metastatic. Reading [facility]
== END | disposition home or self-care (01) ==
LOC: MRI 09:18
PROVIDERS: PCP Family Medicine; Referring Provider Internal Medicine Hematology & Oncology; Visit Provider Internal Medicine Hematology & Oncology
DX: C77.3 Secondary and unspecified malignant neoplasm of axilla and upper limb lymph nodes (principal); C50.912 Malignant neoplasm of unspecified site of left female breast; G54.0 Brachial plexus disorders; G56.92 Unspecified mononeuropathy of left upper limb; Z17.421 Hormone receptor negative with human epidermal growth factor receptor 2 negative status
CPT/HCPCS: 73220; A9575

== ENCOUNTER 2025-01-10 15:12 | Emergency (ER) | payer MEDICARE, OTHER, SELFPAY ==
[2025-01-10] VITALS (7 sets, daily range): BP systolic 105–142; BP diastolic 39–56; PULSE 83–111; RESP 18–20; TEMP 37.1–39.3; O2SAT 95–100; BMI 20.2
[2025-01-10 16:07] LABS: Hematocrit 29.0 % (37-47); Hemoglobin 10.0 g/dL (12.0-15.0); Immature Granulocytes Count 0.440 X10^3/uL (0.0-0.0); Mean Corp Hgb Conc 34.5 g/dL (32-36); Mean Corpuscular Volume 92.9 fL (81-99); Mean Platelet Vol. 8.9 fl (6.2-12.0); NRBC Flagged by Analyzer 0 % (0-5); POSITIVE DIFFERENTIAL YES; POSITIVE MORPHOLOGY YES; Platelet Count 316 K/mm3 (150-450); RBC Distribution Width CV 15.4 % (11.6-14.6); RBC Distribution Width SD 52.3 fl (35.1-43.9); Red Blood Count 3.12 M/mm3 (4.2-5.4); White Blood Count 27.4 K/mm3 (4.4-11.0)
[2025-01-10 16:15] LABS: Differential Indicated SCAN CRITERIA MET
[2025-01-10 16:16] LABS: Red Cell Morphology NORM C+C NORMAL (NORM C&C)
[2025-01-10] MEDS: 0.9% Normal Saline (1000mL) 1,000 ML 1000 ML IV (16:25)
[2025-01-10 16:41] LABS: AST(SGOT) 19 U/L (<=31); Alanine Aminotransfer ALT/SGPT 11 U/L (<=34); Albumin, Serum 4.2 g/dL (3.4-4.8); Alkaline Phosphatase 179 U/L (35-104); Anion Gap 11 (5-15); BUN 7 mg/dL (4-19); BUN/Creat Ratio 9.7 RATIO (10-20); Calcium,Total 8.9 mg/dL (7.6-11.0); Carbon Dioxide 26.5 mmol/L (21.0-32.0); Chloride 96 mmol/L (98-108); Estimated Creatinine Clearance 61.10 ml/min (50-250); Globulin 2.0 g/dL (2.2-4.2); Glucose 122 mg/dL (70-99); Potassium 3.4 mmol/L (3.3-5.1)
[2025-01-10 17:27] LABS: Prothrombin Time (Protime)PT. 13.7 SECONDS (11.7-14.9)
[2025-01-10 17:28] LABS: Partial Thromboplast Time 27.5 Seconds (24.1-36.2)
[2025-01-10] MEDS: Piperacil/Tazobactam 4.5 GM in 0.9% Normal Saline (100mL MB+) 100 ML IV (17:43)
[2025-01-10 17:59] LABS: Color, Urine Straw (Yellow); Glucose, Dipstick Normal (Normal); Ketone-Dipstick Negative (Negative); Leukocyte Esterase-Dipstick Negative /ul (Negative); Mucous, Urine 0 SEEN /hpf (<or=2+); Nitrite-Dipstick Negative (Negative); Occult Blood-Urine Negative /ul (Negative); Protein-Dipstick Negative (Negative); Red Blood Cells-Urine 0 SEEN /hpf (0-5); Specific Gravity, Urine 1.005 (1.002-1.030); Squamous Epithelial Cells - UA 0 SEEN /hpf (5-10); Urine Bilirubin Dipstick Negative (Negative)
[2025-01-10] MEDS: Vancomycin HCl 1,500 MG in 0.9% Normal Saline (500mL Bag) 500 ML 250 MG IV (18:27)
== END 2025-01-10 20:44 | disposition home or self-care (01) ==
PROVIDERS: Emergency Provider Surgery; PCP Family Medicine; Visit Provider Surgery
DX: R50.9 Fever, unspecified (principal); C50.919 Malignant neoplasm of unspecified site of unspecified female breast; J02.9 Acute pharyngitis, unspecified; R09.81 Nasal congestion; D72.829 Elevated white blood cell count, unspecified; T45.8X5A Adverse effect of other primarily systemic and hematological agents, initial encounter; D64.9 Anemia, unspecified; F41.9 Anxiety disorder, unspecified; K21.9 Gastro-esophageal reflux disease without esophagitis; Z92.3 Personal history of irradiation; Z79.899 Other long term (current) drug therapy
CPT/HCPCS: 71046; 80053; 81001; 83605; 85025; 85610; 85730; 87040; 87086; 87088; 87631; 93005; 96361; 96365; 96366; 96368; 99284; A4216

== ENCOUNTER → 2025-01-12 | Outpatient (CLI) | payer MEDICARE, OTHER, SELFPAY ==
--- NOTE | 2025-01-12 07:00 | PET_ITS ---
PROCEDURE: PET/CT TUMOR BASE -THIGH SUBS 01/12/2025 REASON FOR EXAM: 64 y/o F with left BREAST cancer TECHNIQUE: Procedure Code: [id number] Modality: PT Procedure: PET/CT TUMOR BASE -THIGH SUBS Following the intravenous administration of radionucleotide, image acquisition on a dedicated PET/CT unit was performed at one hour post injection. A preliminary CT study encompassing the Skull base, neck, chest, abdomen, pelvis, and proximal thighs was performed for purposes of attenuation correction and anatomic localization. The proximal thighs were also included. The patient's blood glucose level was 128 mg/dL (allowable range: 50-180 mg/dL). RADIOPHARMACEUTICAL: 13.424 mCi 18F-FDG (Fluorodeoxyglucose F18) IV was injected into he patient. RADIATION DOSE SUMMARY: Effective Dose: Approximately 7 mSv for a standard whole-body PET scan Organ Doses: Varies by organ, with higher doses typically to the bladder, liver, and brain COMPARISON: COMPARISON FROM CT, PET OR OTHER PERTINENT EXAMS: PET-CT of 08/04/2024. FINDINGS: Physiologic uptake: There may be expected metabolic uptake within the brain, tongue and floor of the mouth and larynx/vocal cords, heart, odilia (many normal individuals have hilar uptake in less than 3 nodes with mildly avid hilar nodes less than 2.7 SUV), liver and spleen, system, and GI tract and symmetric muscle uptake. FDG AVID AND NON-AVID LESIONS. Reported avid SUV values (g/mL*) are maximum SUV. NECK: There are no significant neck abnormalities. CHEST: Bilateral breast prostheses are again noted. Moderate coronary artery calcification is seen. Chest wall- Overlying the left breast prosthesis is seen areas metabolic activity, significantly improved since the prior study of 08/04/2024. SUV max is now proximally 2.5. The medial right breast area previous abnormal uptake show significant interval diminution. SUV max is approximately 2.8, now. Adjacent surgical clips are also seen. Axilla- There are no significant axillary abnormalities. Lung parenchyma- There are no significant lung parenchyma abnormalities. Mediastinum- There are no significant hilar or mediastinal adenopathy. Pleura- There are no significant pleural abnormalities. ABDOMEN: Stomach- No significant abnormalities. Liver- No significant abnormalities. Spleen- No significant abnormalities. Pancrease- No significant abnormalities. Kidneys- No significant abnormalities. Bowel- Normal bowel activity. Spine- No significant abnormalities. PELVIS: Bowel- Normal physiologic bowel activity is identified. Masses- There are no pelvic masses. Bilateral pelvic surgical clips are noted. Bones- Severe extensive axial and appendicular osseous metastatic disease is seen. PET/PET/CT Tumor Base -Thigh Subs IMPRESSION: FDG avid- Severe, extensive, axial and appendicular osseous metastatic disease is now see n. Other: Areas of previous increased uptake at the bilateral wrists, anterior to the abhay ast prostheses, show significant interval improvement, bilaterally. Moderate coronary artery calcification noted. Please note the low-dose CT scan was performed to facilitate PET image reconstr uction and anatomic localization and does not replace a diagnostic CT. Any diagnostic CT requested and performed at the time of the PET will be reported separately. Reading Location: [id number]
--- OUTSIDE RECORDS SUMMARY | 2025-01-12 07:34 | XMS RPT_ITS | CCD ---
Author Organization [facility] Care Team Providers Care Loom Mechanic Name Role Phone Cogar HEBREW TEACHER, [place] N Unavailable Cogar HEBREW TEACHER, [place] N Unavailable Cogar HEBREW TEACHER, [place] N Unavailable RUSIA, DEEPAM Unavailable Unavailable RUSIA, DEEPAM Unavailable Unavailable Cogar HEBREW TEACHER, [place] N Unavailable Wade ANAND, Ken Wren Primary Care Provider Ken Zarco MD Primary Care Provider Ken Zarco MD Primary Care Provider Ken Zarco MD Primary Care Provider [phone] Ryan ANAND MD, Daesung Unavailable Dr. Hellen Lafleur Primary Care Provider Dr. Hellen Lafleur Referring Provider Dr. Arben Mccann Attending Provider [phone] Dr. Arben Mccann Referring Provider Dr. Arben Mccann Other Provider Hellen Zhu DO Unavailable Docarla RN, Jael Unavailable Unavailable Ryan ANAND, Melony Unavailable HELLEN ZHU Referring Unavailable KEN ZARCO Primary Care Unavailable Ken Zarco MD Primary Care Provider [phone] KEILA CHRISTINA Referring Unavailable KEN ZARCO Primary Care Unavailable KEILA CHRISTINA Referring Unavailable KEN ZARCO Primary Care Unavailable PROVIDER, UNKNOWN Admitting Unavailable PROVIDER, UNKNOWN Attending Unavailable WADE KEN A Primary Care Unavailable HELLEN ZHU Referring Unavailable WADE, KEN A Primary Care Unavailable Wilber ANAND, Debbie Unavailable WADE ANAND, KEN A Primary Care Physician [phone] Wilber ANAND, Debbie Unavailable WILBER, DEBBIE Attending Unavailable WADE ANAND, KEN A Primary Care Unavailable DEBBIE MERINO Attending Unavailable WADE ANAND, KEN A Primary Care Unavailable DEBBIE MREINO Attending Unavailable WADE ANAND, KEN A Primary Care Unavailable VIVIEN ANAND, ARNEL Consulting Unavailable RG ANAND, ANITA Marin Consulting Unavailable ESTEFANIA ANAND, YAIMA Consulting Unavailable DEBBIE MERINO Attending Unavailable WADE ANAND, KEN A Primary Care Unavailable DEBBIE MERINO Attending Unavailable WADE ANAND, KEN A Primary Care Unavailable DEBBIE MERINO Attending Unavailable WADE ANAND, KEN A Primary Care Unavailable Ramy ANAND, Arben Hart Unavailable Dilan ANAND, Dr. Michael Attending Provider Dr. Alec Kong MD Referring Provider Dr. Hellen Lafleur MD Primary Care Provider [phone] Dr. Hellen Lafleur MD Referring Provider Dr. Arben Mccann MD Attending Provider Dr. Hellen Lafleur MD Primary Care Provider [phone] Dr. Alec Kong MD Attending Provider Dr. Alec Kong MD Referring Provider [phone] Dr. Hellen Zhu DO Attending Provider [phone] Hellen Zhu DO Referring Provider [phone] Hellen Lafleur MD Primary Care Provider [phone] HELLEN ZHU Referring Unavailable WADE KEN A Primary Care Unavailable Cliffordorrow AUTOMATIC OVEN OPERATOR-CSantana Attending Provider McMorrow AUTOMATIC OVEN OPERATOR-CSantana Referring Provider McMorrow AUTOMATIC OVEN OPERATOR-C, Santana Other Provider Hunter ANAND, Dr. Goetz Attending Provider [phone] Miquel ANAND, Dr. Blue Primary Care Provider Dilan ANAND, Dr. Michael Attending Provider [phone] Dilan ANAND, Dr. Michael Referring Provider WILBER ANAND, DR ELWIS Attending Unavailkirk ZARCO MD, KEN A Primary Care Unavailable WADE ANAND, KEN A Primary Care Unavailable WILBER ANAND, DR LEWIS Attending Unavailkirk ZARCO MD, KEN A Primary Care Unavailable SILAS LEVY Unavailable MARISELA SMITHN-CUFF SETTER, RAFIQ Aguayo Attending Josey ZARCO MD, KEN A Primary Care Unavailable WILBER ANAND, DR LEWIS Attending Unavailkirk ZARCO MD, KEN A Primary Care Unavailable WILBER ANAND, DR LEWIS Attending Unavailkirk ZARCO, KEN A Primary Care Unavailable MASCI, HELLEN A Referring Unavailable ZARCO, KEN A Primary Care Unavailable MASCI, HELLEN A Referring Unavailable ZARCO, KEN A Primary Care Unavailable MASCI, HELLEN A Referring Unavailable MARY GREEN Attending Unavailable MASCI, HELLEN A Referring Unavailable ZARCO, KEN A Primary Care Unavailable ZARCO, KEN A Primary Care Unavailable MASCI, HELLEN A Referring Unavailable ZARCO, KEN A Primary Care Unavailable MASCI, HELLEN A Referring Unavailable ZARCO, KEN A Primary Care Unavailable MASCI, HELLEN A Referring Unavailable ZARCO, KEN A Primary Care Unavailable MASCI, HELLEN A Referring Unavailable MARY GREEN Attending Unavailable ZARCO, KEN A Primary Care Unavailable MASCI, HELLEN A Referring Unavailable ZARCO, KEN A Primary Care Unavailable MASCI, HELLEN A Referring Unavailable ZARCO, KEN A Primary Care Unavailable ZARCO, KEN A Primary Care Unavailable MASCI, HELLEN A Referring Unavailable ZARCO, KEN A Primary Care Unavailable MASCI, HELLEN A Referring Unavailable ZARCO, KEN A Primary Care Unavailable ZARCO, KEN A Primary Care Unavailable SELF Referring Unavailable KALA KABA Attending Unavailable ZARCO, KEN A Primary Care Unavailable SELF Referring Unavailable ZARCO, KEN A Primary Care Unavailable MASCI, HELLEN A Referring Unavailable ZARCO, KEN A Primary Care Unavailable YONI MANCERA Referring Unavailable ZARCO, KEN A Primary Care Unavailable MASCI, HELLEN A Referring Unavailable ZARCO, KEN A Primary Care Unavailable MASCI, HELLEN A Referring Unavailable ZARCO, KEN A Primary Care Unavailable MASCI, HELLEN A Referring Unavailable ZARCO, KEN A Primary Care Unavailable ZARCO, KEN A Primary Care Unavailable MASCI, HELLEN A Referring Unavailable ZARCO, KEN A Primary Care Unavailable MASCI, HELLEN A Referring Unavailable ZARCO, KEN A Primary Care Unavailable MASCI, HELLEN A Referring Unavailable ZARCO, KEN A Primary Care Unavailable MASCI, HELLEN A Referring Unavailable ZARCO, KEN A Primary Care Unavailable ZARCO, KEN A Primary Care Unavailable MASCI, HELLEN A Referring Unavailable ZARCO, KEN A Primary Care Unavailable ZARCO, KEN A Primary Care Unavailable MASCI, HELLEN A Referring Unavailable MASCI, HELLEN A Attending Unavailable ZARCO, KEN A Primary Care Unavailable MASCI, HELLEN A Referring Unavailable ZARCO, KEN A Primary Care Unavailable MASCI, HELLEN A Referring Unavailable MASCI, HELLEN A Attending Unavailable ZARCO, KEN A Primary Care Unavailable SELF Referring Unavailable ZARCO, KEN A Primary Care Unavailable MASCI, HELLEN A Referring Unavailable ZARCO, KEN A Primary Care Unavailable MASCI, HELLEN A Referring Unavailable ZARCO, KEN A Primary Care Unavailable MASCI, HELLEN A Referring Unavailable ZARCO, KEN A Primary Care Unavailable MASCI, HELLEN A Referring Unavailable ZARCO, KEN A Primary Care Unavailable MASCI, HELLEN A Referring Unavailable ZARCO, KEN A Primary Care Unavailable MASCI, HELLEN A Referring Unavailable ZARCO, KEN A Primary Care Unavailable MASCI, HELLEN A Referring Unavailable ZARCO, KEN A Primary Care Unavailable MASCI, HELLEN A Referring Unavailable MASCI, HELLEN A Attending Unavailable ZARCO, KEN A Primary Care Unavailable MASCI, HELLEN A Referring Unavailable ZARCO, KEN A Primary Care Unavailable SELF Referring Unavailable KEILA CHRISTINA Attending Unavailable ZARCO, KEN A Primary Care Unavailable JARADDDEBBIE Referring Unavailable YONI MANCERA Attending Unavailable ZARCO, KEN A Primary Care Unavailable MASCI, HELLEN A Referring Unavailable ZARCO, KEN A Primary Care Unavailable MASCI, HELLEN A Referring Unavailable MASCI, HELLEN A Attending Unavailable ZARCO, KEN A Primary Care Unavailable MASCI, HELLEN A Referring Unavailable ZARCO, KEN A Primary Care Unavailable MASCI, HELLEN A Referring Unavailable ZARCO, KEN A Primary Care Unavailable MASCI, HELLEN A Referring Unavailable ZARCO, KEN A Primary Care Unavailable MASCI, HELLEN A Referring Unavailable ZARCO, KEN A Primary Care Unavailable MASCI, HELLEN A Referring Unavailable ZARCO, KEN A Primary Care Unavailable MASCI, HELLEN A Referring Unavailable ZARCO, KEN A Primary Care Unavailable MASCI, HELLEN A Referring Unavailable ZARCO, KEN A Primary Care Unavailable ZARCO, KEN A Primary Care Unavailable MASCI, HELLEN A Referring Unavailable ZARCO, KEN A Primary Care Unavailable MASCI, HELLEN A Referring Unavailable ZARCO, KEN A Primary Care Unavailable ZARCO, KEN A Primary Care Unavailable MASCI, HELLEN A Attending Unavailable ZARCO, KEN A Primary Care Unavailable SELF Referring Unavailable ZARCO, KEN A Primary Care Unavailable SELF Referring Unavailable KALA KABA Attending Unavailable ZARCO, KEN A Primary Care Unavailable MASCI, HELLEN A Referring Unavailable MASCI, HELLEN A Attending Unavailable ZARCO, KEN A Primary Care Unavailable MARY GREEN Attending Unavailable ZARCO, KEN A Primary Care Unavailable MASCI, HELLEN A Referring Unavailable ZARCO, KEN A Primary Care Unavailable MASCI, HELLEN A Referring Unavailable MASCI, HELLEN A Attending Unavailable ZARCO, KEN A Primary Care Unavailable MASCI, HELLEN A Referring Unavailable ZARCO, KEN A Primary Care Unavailable DEBBIE MERINO Referring Unavailable MARLENE BLANCO Attending Unavailable ZARCO, KEN A Primary Care Unavailable MASCI, HELLEN A Referring Unavailable ZARCO, KEN A Primary Care Unavailable MASCI, HELLEN A Referring Unavailable MASCI, HELLEN A Referring Unavailable ZARCO, KEN A Primary Care Unavailable ZARCO, KEN A Primary Care Unavailable MASCI, HELLEN A Referring Unavailable MASCI, HELLEN A Referring Unavailable ZARCO, KEN A Primary Care Unavailable ZARCO, KEN A Primary Care Unavailable MASCI, HELLEN A Referring Unavailable ZARCO, KEN A Primary Care Unavailable ZARCO, KEN A Primary Care Unavailable MASCI, HELLEN A Referring Unavailable ZARCO, KEN A Primary Care Unavailable YONI MANCERA Referring Unavailable ZARCO, KEN A Primary Care Unavailable MASCI, HELLEN A Referring Unavailable ZARCO, KEN A Primary Care Unavailable MASCI, HELLEN A Referring Unavailable ZARCO, KEN A Primary Care Unavailable MASCI, HELLEN A Referring Unavailable ZARCO, KEN A Primary Care Unavailable ZARCO, KEN A Primary Care Unavailable MASCI, HELLEN A Referring Unavailable MASCI, HELLEN A Attending Unavailable MASCI, HELLEN A Referring Unavailable ZARCO, KEN A Primary Care Unavailable ZARCO, KEN A Primary Care Unavailable MARY GREEN Attending Unavailable ZARCO, KEN A Primary Care Unavailable MELONY DAVIS Attending Unavailable ZARCO, KEN A Primary Care Unavailable MASCI, HELLEN A Referring Unavailable ZARCO, KEN A Primary Care Unavailable MASCI, HELLEN A Referring Unavailable ZARCO, KEN A Primary Care Unavailable MELONY DAVIS Attending Unavailable ZARCO, KEN A Primary Care Unavailable MASCI, HELLEN A Referring Unavailable ZARCO, KEN A Primary Care Unavailable MASCI, HELLEN A Referring Unavailable Masci, Hellen Attending Unavailable Masci, Hellen Referring Unavailable Lafleur, Hellen Primary Care Unavailable Lafleur, Hellen Primary Care Unavailable Ranrosa, Alec Attending Unavailable Alec Kong Referring Unavailable Masci, Hellen Attending Unavailable Masci, Hellen Referring Unavailable Lafleur, Hellen Primary Care Unavailable McMorrow AUTOMATIC OVEN OPERATOR, Santana Attending Unavailable McMorrow AUTOMATIC OVEN OPERATOR, Santana Referring Unavailable Lafleur, Hellen Primary Care Unavailable Lafleur, Hellen Primary Care Unavailable Dilan, Alec Attending Unavailable Dilan, Alec Referring Unavailable Lafleur, Hellen Primary Care Unavailable Ajay Burnett Attending Unavailabl e Lafleur, Hellen Primary Care Unavailable Dilan, Alec Attending Unavailable Dilan, Alec Referring Unavailable Lafleur, Hellen Primary Care Unavailable Lafleur, Hellen Referring Unavailable Arben Mccann Attending Unavailable Bishnu Harrison Attending Unavailable McMorrow AUTOMATIC OVEN OPERATOR, Santana Consulting Unavailable McMorrow AUTOMATIC OVEN OPERATOR, Santana Referring Unavailable Lafleur, Hellen Primary Care Unavailable Masci, Hellen Referring Unavailable Lafleur, Hellen Primary Care Unavailable Masci, Hellen Attending Unavailable Allergies Allergy Classification Reported Allergen(s) Allergy Type Date of Onset Reaction(s) Facility (4 sources) sulfamethoxazole / trimethoprim drug allergy 7 bloated/diarrh ea [facility] Work Phone: (20 sources) Sulfamethoxazole; Translations: [SULFAMETHOXAZOLE] Drug Allergy 4 GI Upset [facility] (20 sources) Trimethoprim; Translations: [TRIMETHOPRIM] Drug Allergy 0 Other: See Comments [facility] (9 sources) Sulfamethoxazole / Trimethoprim; Translations: [sulfamethoxazole-tr imethoprim] Drug Allergy Stomach ache (finding) [facility] (1 source) Sulfamethoxazole Drug Allergy [address] [facility] (1 source) Trimethoprim Drug Allergy [address] [facility] Medications Current Medications Medication Drug Class(es) Dates Sig (Normalized) Sig (Original) acetaminophen 325 mg / oxyCODONE hydrochloride 5 mg oral tablet (1 source) Opioid Agonist Start: 10-02-2023 End: 10-04-2023 take 1 tablet by mouth every four hours as needed for pain Percocet 5 mg-325 mg oral tablet Dose = 1 tab(s), Oral, q4h, PRN for pain, X 2 day(s), # 10 tab(s), 0 Refill(s), Pharmacy: [id number], Acute post-operative pain, 165.1, cm, 10/02/23 7:27:00 EDT, Height, 52, kg, 10/02/23 7:27:00 EDT, Dosing Weight Start Date: 10/02/23 Stop Date: 10/04/23 Status: Ordered amino acids/multivitamin (MULTIVITAMIN-AMINO ACIDS ORAL) (20 sources) take 1 tablet by mouth once daily amino acids/multivitami n (MULTIVITAMIN-AMI NO ACIDS ORAL) Take 1 tablet by mouth once daily. No amino acids Active take 1 tablet by mouth once larry y amino acids/multivitamin (MULTIVITAMIN-AMINO ACIDS ORAL) Take 1 tablet by mouth once daily. No amino acids 0 Active amino acids/mult ivitamin (MULTIVITAMIN-AMINO ACIDS ORAL) Take by mouth. No amino acids 0 Active amino acids/mult ivitamin (MULTIVITAMIN-AMINO ACIDS ORAL) Take by mouth. 0 Active Comment on above: Take by mouth. Take by mouth. No am leatha acids Take 1 tablet by reinaldo th once daily. No amino acids amylase 64095 unt / lipase 54859 unt / protease 50743 unt delayed release oral capsule (8 sources) Start: 11-27-2019 take 1 capsule by mouth three times daily Fgmiyg-Znupedoh-Dlq lase Active 1 CAP PO THREE TIMES A DAY November 26, 2019 11:00pm Calcium (20 sources) Phosphate Binder, Calcium take 800 mg by mouth once daily CALCIUM ORAL Take 800 mg by mouth once daily. Active take 800 mg by mouth once daily CALCIUM ORAL Take 800 mg by mouth once daily. 0 Active Comment on above: Take 800 mg by mouth once daily. calcium carbonate 1500 mg oral tablet (6 sources) Start: 04-17-19 Calcium Carbonate (Calcium 600) 600 mg calcium (1,500 mg) tablet Active 800 mg PO DAILY April 17, 2023 1:00am calcium citrate 315 mg oral tablet (9 sources) Start: 09-23-19 take 2 tablets by mouth once daily in the morning calcium (as calcium citrate) 315 mg oral tablet 2 tab(s), Oral, qAM, 0 Refill(s) Start Date: 09/23/23 Status: Ordered Medication Dispense Status: Completed Total Allowed Fills: 1 Fills Dispensed: 0 cholecalciferol 0.025 mg oral capsule (6 sources) Vitamin D Start: 04-17-19 take 1 capsule by mouth once daily Cholecalciferol (Vitamin D3) 25 mcg (1,000 unit) capsule Active 25 ug PO DAILY April 17, 2023 1:00am cholecalciferol, vitamin D3, (VITAMIN D3 ORAL) (20 sources) take 1000 [IU] by mouth once daily cholecalciferol, vitamin D3, (VITAMIN D3 ORAL) Take 1,000 Units by mouth once daily. Active take 1000 [IU] by mouth once deshawn ly cholecalciferol, vitamin D3, (VITAMIN D3 ORAL) Take 1,000 Units by mouth once daily. 0 Active cholecalciferol, vitamin D3, (VITAMIN D3 ORAL) Take by mouth once daily. 0 Active Comment on above: Take by mouth once d aily. Take 1,000 Units by mouth once daily. Cimetidine (20 sources) Histamine-2 Receptor Antagonist cimetidine (TAGAMET ORAL) Take by mouth as needed. Active cimetidine (TAGA MET ORAL) Take by mouth as needed. 0 Active take 1 tablet by mouth four time s daily cimetidine (TAGAMET) 200 mg tablet Take 200 mg by mouth four times daily. 0 Active Comment on above: Take 200 mg by mouth four times daily. Take by mouth as nee ded. 1 ml EPINEPHrine 1 mg/ml injection (1 source) alpha-Adrenergic Agonist, beta-Adrenergic Agonist, Catecholamine Start: 2024 inject 0.3 mg by intramuscular injection once as needed 0.3 mg, INTRAMUSCULAR, NEEDED, 1 dose, Starting on Sat07/28/24 at 1122, Until Discontinued, Administer per hypersensitivity/an aphylaxis grading in nursing communication, - NONCYTOTOXIC VESICANT - lactobacillus acidophilus [id number] unt oral capsule (20 sources) take 1 capsule by mouth once daily Lactobacillus acidophilus (PROBIOTIC) 10 billion cell cap Take 1 capsule by mouth once daily. Active lidocaine 25 mg/ml / prilocaine 25 mg/ml topical cream (20 sources) Antiarrhythmic, Amide Local Anesthetic Start: 2023 End: 2024 lidocaine-prilocain e (EMLA) 2.5-2.5 % cream Indications: Malignant neoplasm of left breast in female, estrogen receptor negative, unspecified site of breast (HCC) Apply 60 minutes prior to accessing port. 15 g 3 04/16/2023 04/24/2024 Active Comment on above: Apply 60 minutes cheryl or to accessing port. loperamide hydrochloride 2 mg oral tablet (20 sources) Opioid Agonist take 1 tablet by mouth once as needed loperamide HCl (IMODIUM A-D) 2 mg tab Take 2 mg by mouth as needed. Active LORazepam 1 mg oral tablet (8 sources) Benzodiazepine Start: 2019 take 0.5-1 mg by mouth three times daily Lorazepam Active 0.5 - 1 MG PO THREE TIMES A DAY December 17, 2019 11:00pm magnesium oxide 500 mg oral capsule (20 sources) Start: 2023 Magnesium Oxide 500 mg cap Take 1 capsule by mouth as needed. 04/17/2023 Active Start: 04-17-2023 Magnesium Oxid e 500 mg capsule Active 250 mg PO DAILY April 17, 2023 1:00am Start: 04-17-2023 take 250 mg by mouth once larry y Magnesium Oxide Active 250 MG PO DAILY April 17, 2023 12:00am Multiple Vitamins oral capsule (9 sources) Start: 09-23-2023 take 1 capsule by mouth once daily in the morning Multiple Vitamins oral capsule Dose = 1 cap(s), Oral, qAM, 0 Refill(s) Start Date: 09/23/23 Status: Ordered Medication Dispense Status: Completed Total Allowed Fills: 1 Fills Dispensed: 0 Start: 09-23-2023 take 1 capsule by [facility] once daily in the morning Multiple Vitamins oral capsule Dose = 1 cap(s), Oral, qAM, 0 Refill(s) Start Date: 09/23/23 Status: Ordered Repeat number: 1 Start: 09-23-2023 take 1 capsule by [facility] once daily in the morning Multiple Vitamins oral capsule Dose = 1 cap(s), Oral, qAM, 0 Refill(s) Start Date: 09/23/23 Status: Ordered Multivitamin (Daily Multi-Vitamin) tablet (6 sources) Start: 04-18-2023 Multivitamin ( Daily Multi-Vitamin) tablet Active 1 {tbl} PO DAILY April 18, 2023 1:00am Start: 04-18-2023 take 1 tablet by reinaldo th once daily Multivitamin (Daily Multi-Vitamin) tablet Active 1 TABLET PO DAILY April 18, 2023 12:00am mupirocin 0.02 mg/mg topical ointment (4 sources) RNA Synthetase Inhibitor Antibacterial Start: 09-23-2023 mupirocin 2% topical ointment Apply 1 jass, Topical, BID, Bilateral intranasal application twice daily x 5 days pre-surgery &/or as many days pre-surgery as possible., Apply to: nostril, each, # 22 gram(s), 0 Refill(s), Pharmacy: [id number], Ointment, 167, cm, 09/23/23 11:47:00 EDT, Height, 54.7, kg, 09/23/23 11:47:00 EDT, Dosing Weight Start Date: 09/23/23 Status: Ordered OLANZapine 5 mg oral tablet (16 sources) Atypical Antipsychotic Start: 07-18-2023 End: 08-25-2023 take 1 tablet by mouth once daily at bedtime OLANZapine (ZYPREXA) 5 mg tablet Take 1 tablet by mouth daily at bedtime. beginning the evening of first day of chemotherapy each cycle. 16 tablet 0 07/18/2023 08/25/2023 Discontinued PARoxetine hydrochloride 30 mg oral tablet (20 sources) Serotonin Reuptake Inhibitor Start: 06-26-2005 PARoxetine 30 mg oral tablet Dose : 30 mg = 1 tab(s), Oral, qAM, # 30 tab(s), 0 Refill(s) Start Date: 09/12/23 Status: Ordered Medication Dispense Status: Completed Quantity: 30.0 Unit: tab(s) Total Allowed Fills: 1 Fills Dispensed: 0 Comment on above: Take one(1) tablet d aily. Take 30 mg by mouth once daily. Probiotic (9 sources) Start: 09-12-2023 take 1 tablet by mouth once daily in the morning Probiotic Dose = 1 tab(s), Oral, qAM, 0 Refill(s) Start Date: 09/12/23 Status: Ordered Medication Dispense Status: Completed Total Allowed Fills: 1 Fills Dispensed: 0 Start: 09-12-2023 take 1 tablet by reinaldo th once daily in the morning Probiotic Dose = 1 tab(s), Oral, qAM, 0 Refill(s) Start Date: 09/12/23 Status: Ordered Repeat number: 1 Start: 09-12-2023 take 1 tablet by reinaldo th once daily in the morning Probiotic Dose = 1 tab(s), Oral, qAM, 0 Refill(s) Start Date: 09/12/23 Status: Ordered prochlorperazine 10 mg oral tablet (20 sources) Phenothiazine Start: 11-17-2024 take 1 tablet by mouth every six hours as needed for nausea prochlorperazine (COMPAZINE) 10 mg tablet Indications: cancer chemotherapy-induced nausea and vomiting Take 1 tablet by mouth every 6 hours as needed for nausea/vomiting. 30 tablet 3 11/17/2024 Active Start: 04-16-2023 End: 08-25-2023 take 1 tablet by mouth every six hours as needed for nausea and vomiting prochlorperazine (COMPAZINE) 10 mg tablet Indications: Malignant neoplasm of left breast in female, estrogen receptor negative, unspecified site of breast (HCC) Take 1 tablet by mouth every 6 hours as needed (For chemotherapy induced nausea and vomiting). 30 tablet 2 04/16/2023 08/25/2023 Discontinued Comment on above: Take 1 tablet by reinaldo th every 6 hours as needed (For chemotherapy induced nausea and vomiting). saccharomyces boulardii 250 mg oral capsule (14 sources) Start: 12-18-19 take 1 capsule by mouth twice daily Saccharomyces Boulardii 250 MG capsule Active 250 mg PO TWICE A DAY December 18, 2019 12:00am digestion/probiotic triamcinolone acetonide 1 mg/ml topical lotion (20 sources) Corticosteroid Start: 12-02-19 End: 12-16-19 triamcinolone (KENALOG) 0.1 % lotion Apply to affected area three times a day for 14 days. 120 mL 12/02/2023 12/16/2023 Active triamcinolone (K ENALOG) 0.025 % cream Apply 1 Application to affected area two times a day. Active Vitamin D2 50 mcg (2000 intl units) oral capsule (9 sources) Start: 09-23-2023 Vitamin D2 50 mcg (2000 intl units) oral capsule Dose : 50 mcg = 1 cap(s), Oral, qAM, with food, # 60 cap(s), 0 Refill(s) Start Date: 09/23/23 Status: Ordered Medication Dispense Status: Completed Quantity: 60.0 Unit: cap(s) Total Allowed Fills: 1 Fills Dispensed: 0 Start: 09-23-2023 Vitamin D2 50 mcg (2000 intl units) oral capsule Dose : 50 mcg = 1 cap(s), Oral, qAM, with food, # 60 cap(s), 0 Refill(s) Start Date: 09/23/23 Status: Ordered Quantity: 60.0 Unit: cap(s) Repeat number: 1 Start: 09-23-2023 Vitamin D2 50 mcg (2000 intl units) oral capsule Dose : 50 mcg = 1 cap(s), Oral, qAM, with food, # 60 cap(s), 0 Refill(s) Start Date: 09/23/23 Status: Ordered Completed/Discontinued Medications Medication Drug Class(es) Dates Sig (Normalized) Sig (Original) acetaminophen 325 mg oral tablet (20 sources) Start: 12-08-2024 End: 12-08-2024 take 1 dose by mouth once, then take 4000 mg by mouth once daily 650 mg, ORAL, ONCE, 1 dose, On Sat12/08/24 at 1130, No more than 4000 mg of acetaminophen should be given per day (FROM ALL SOURCES) Start: 11-24-2024 End: 11-24-2024 take 1 dose by mouth once, then take 4000 mg by mouth once daily 650 mg, ORAL, ONCE, 1 dose, On Sat11/24/24 at 1300, No more than 4000 mg of acetaminophen should be given per day (FROM ALL SOURCES) Start: 11-17-2024 End: 11-17-2024 take 1 dose by mouth once, then take 4000 mg by mouth once daily 650 mg, ORAL, ONCE, 1 dose, On Sat11/17/24 at 1230, No more than 4000 mg of acetaminophen should be given per day (FROM ALL SOURCES) Start: 05-05-2024 Tylenol 8 Hour 650 mg oral tablet, extended release Dose : 1,300 mg = 2 tab(s), Oral, q8h, PRN as needed for pain, # 24 tab(s), 0 Refill(s) Start Date: 05/05/24 Status: Ordered Medication Dispense Status: Completed Quantity: 24.0 Unit: tab(s) Total Allowed Fills: 1 Fills Dispensed: 0 Start: 11-29-2019 take 2 tablets by mo [facility] every six hours as needed acetaminophen (TYLENOL) 325 mg tablet Take 650 mg by mouth every 6 hours as needed. 11/29/2019 Active Start: 11-29-2019 take 650 mg by mouth every six hours as needed Acetaminophen Active 650 MG PO EVERY 6 HOURS NEEDED November 28, 2019 11:00pm ALPRAZolam 0.5 mg oral tablet (20 sources) Benzodiazepine Start: 09-23-2023 ALPRAZolam 0.5 mg oral tablet Dose : 0.5 mg = 1 tab(s), Oral, TID, PRN for anxiety, 0 Refill(s), 54.7 Start Date: 09/23/23 Status: Ordered Medication Dispense Status: Completed Total Allowed Fills: 1 Fills Dispensed: 0 Start: 04-16-2023 End: 05-16-2023 take 1 tablet by mouth three times daily as needed ALPRAZolam (XANAX) 0.5 mg tablet Indications: Malignant neoplasm of left breast in female, estrogen receptor negative, unspecified site of breast (HCC) , Anxiety associated with cancer diagnosis (HCC) Take 1 tablet by mouth three times a day as needed for up to 30 days. 89 tablet 0 04/16/2023 05/16/2023 End: 08-25-2023 ALPRAZolam (XANAX) 1 mg/mL c onc Take by mouth as directed. 0 08/25/2023 Discontinued Comment on above: Take 1 tablet by [facility] three times a day as needed for up to 30 days. amoxicillin 500 mg oral capsule (4 sources) Penicillin-class Antibacterial Start: 7 AMOXICILLIN 500 MG CAPS 2 capsules twice a day AMOXICILLIN [id number] Sarwat MAST 1 ml atropine sulfate 0.4 mg/ml injection (1 source) Anticholinergic, Cholinergic Muscarinic Antagonist Start: 5 End: 5 0.4 mg, INTRAVENOUS, NEEDED, 1 dose, Starting on Sat11/24/24 at 1252, Until Sat11/24/24 at 1426, See admin instructions, For cholinergic symptoms (acute diarrhea or severe abdominal cramping, flushing, excess sweating, salivation, tearing, or neurologic symptoms such as aphasia or dysarthria) that are not responsive to hyoscyamine. B.animalis,bifid,inf antis,long (PROBIOTIC 4X ORAL) (20 sources) End: take 1 tablet by mouth once daily B.animalis,bifid,inf antis,long (PROBIOTIC 4X ORAL) Take 1 tablet by mouth once daily. 05/16/2023 Discontinued End: 05-16-2023 take 1 tablet by mouth once daily B.animalis,bifid,infantis,long (PROBIOTI C 4X ORAL) Take 1 tablet by mouth once daily. 0 05/16/2023 Discontinued take 1 tablet by reinaldo th once daily B.animalis,bifid,infantis,long (PROBIOTI C 4X ORAL) Take 1 tablet by mouth once daily. 0 Active B.animalis,bifid ,infantis,long (PROBIOTIC 4X ORAL) Take by mouth once daily. 0 Active B.animalis,bifid ,infantis,long (PROBIOTIC 4X ORAL) Take by mouth. 0 Active Comment on above: Take by mouth. Take by mouth once d aily. Take 1 tablet by reinaldo th once daily. ciprofloxacin 500 mg oral tablet (14 sources) Quinolone Antimicrobial Start: 11-29-19 End: 12-06-19 take 1 tablet by mouth twice daily Ciprofloxacin Hcl 500 MG tablet Discontinued 500 mg PO TWICE A DAY 14 7 0 November 29, 2019 12:00am December 05, 2019 12:00am December 06, 2019 12:03am 1 ml dexamethasone phosphate 10 mg/ml injection (20 sources) Corticosteroid Start: 12-09-19 End: 12-09-19 10 mg, INTRAVENOUS, ONCE, 1 dose, On Sat12/08/24 at 1130, Administer IV doses up to 10 mg over 5 minutes. Administer doses > 10 mg over 15 to 30 minutes. Start: 11-24-2024 End: 11-24-2024 10 mg, INTRAVENOUS, ONCE, 1 dose, On Sat11/24/24 at 1300, Administer IV doses up to 10 mg over 5 minutes. Administer doses > 10 mg over 15 to 30 minutes. Start: 11-17-2024 End: 11-17-2024 10 mg, INTRAVENOUS, ONCE, 1 dose, On Sat11/17/24 at 1230, Administer IV doses up to 10 mg over 5 minutes. Administer doses > 10 mg over 15 to 30 minutes. Start: 11-10-2024 End: 11-10-2024 10 mg, INTRAVENOUS, ONCE, 1 dose, On Sat11/10/24 at 1330, Administer IV doses up to 10 mg over 5 minutes. Administer doses > 10 mg over 15 to 30 minutes. Start: 11-03-2024 End: 11-03-2024 10 mg, INTRAVENOUS, ONCE, 1 dose, On Sat11/03/24 at 1330, Administer IV doses up to 10 mg over 5 minutes. Administer doses > 10 mg over 15 to 30 minutes. Start: 10-20-2024 End: 10-20-2024 10 mg, INTRAVENOUS, ONCE, 1 dose, On Sat10/20/24 at 0930, Administer IV doses up to 10 mg over 5 minutes. Administer doses > 10 mg over 15 to 30 minutes. Start: 10-13-2024 End: 10-13-2024 10 mg, INTRAVENOUS, ONCE, 1 dose, On Sat10/13/24 at 1030, Administer IV doses up to 10 mg over 5 minutes. Administer doses > 10 mg over 15 to 30 minutes. Start: 10-06-2024 End: 10-06-2024 10 mg, INTRAVENOUS, ONCE, 1 dose, On Sat10/06/24 at 0900, Administer IV doses up to 10 mg over 5 minutes. Administer doses > 10 mg over 15 to 30 minutes. Start: 09-29-2024 End: 09-29-2024 10 mg, INTRAVENOUS, ONCE, 1 dose, On Sat09/29/24 at 1000, Administer IV doses up to 10 mg over 5 minutes. Administer doses > 10 mg over 15 to 30 minutes. Start: 09-22-2024 End: 09-22-2024 10 mg, INTRAVENOUS, ONCE, 1 dose, On Sat09/22/24 at 0830, Administer IV doses up to 10 mg over 5 minutes. Administer doses > 10 mg over 15 to 30 minutes. Start: 09-01-2024 End: 09-01-2024 10 mg, INTRAVENOUS, ONCE, 1 dose, On Sat09/01/24 at 1130, Administer over 5 minutes. Start: 08-25-2024 End: 08-25-2024 10 mg, INTRAVENOUS, ONCE, 1 dose, On Sat08/25/24 at 1130, Administer over 5 minutes. Start: 08-04-2024 End: 08-04-2024 10 mg, INTRAVENOUS, ONCE, 1 dose, On Sat08/04/24 at 1130, Administer over 5 minutes. Start: 07-28-2024 End: 07-28-2024 10 mg, INTRAVENOUS, ONCE, 1 dose, On Sat07/28/24 at 1130, Administer over 5 minutes. Start: 07-18-2023 End: 08-25-2023 take 1 tablet by mouth twice daily at mealtime dexAMETHasone (DECADRON) 4 mg tablet Take 1 tablet by mouth two times a day with meals. on the second, third and fourth day after each chemotherapy treatment. 24 tablet 0 07/18/2023 08/25/2023 Discontinued diphenhydrAMINE (15 sources) Histamine-1 Receptor Antagonist Start: 12-08-2024 End: 12-08-2024 25 mg, INTRAVENOUS, ONCE, 1 dose, On Sat12/08/24 at 1130 Start: 11-24-2024 End: 11-24-2024 25 mg, INTRAVENOUS, ONCE, 1 dose, On Sat11/24/24 at 1300 Start: 11-17-2024 End: 11-17-2024 25 mg, INTRAVENOUS, ONCE, 1 dose, On Sat11/17/24 at 1230 Start: 11-10-2024 End: 11-10-2024 25 mg, INTRAVENOUS, ONCE, 1 dose, On Sat11/10/24 at 1330 Start: 11-03-2024 End: 11-03-2024 25 mg, INTRAVENOUS, ONCE, 1 dose, On Sat11/03/24 at 1330 Start: 10-20-2024 End: 10-20-2024 25 mg, INTRAVENOUS, ONCE, 1 dose, On Sat10/20/24 at 0930 Start: 10-13-2024 End: 10-13-2024 25 mg, INTRAVENOUS, ONCE, 1 dose, On 7/22/25 at 1030 Start: 10-06-2024 End: 10-06-2024 25 mg, INTRAVENOUS, ONCE, 1 dose, On 10/06/24 at 0900 Start: 09-29-2024 End: 09-29-2024 25 mg, INTRAVENOUS, ONCE, 1 dose, On 09/29/24 at 1000 Start: 09-22-2024 End: 09-22-2024 25 mg, INTRAVENOUS, ONCE, 1 dose, On 09/22/24 at 0830 Start: 09-01-2024 End: 09-01-2024 25 mg, INTRAVENOUS, ONCE, 1 dose, On 09/01/24 at 1130 Start: 08-25-2024 End: 08-25-2024 25 mg, INTRAVENOUS, ONCE, 1 dose, On 08/25/24 at 1130 Start: 08-04-2024 End: 08-04-2024 25 mg, INTRAVENOUS, ONCE, 1 dose, On 08/04/24 at 1130 Start: 07-28-2024 End: 07-28-2024 25 mg, INTRAVENOUS, ONCE, 1 dose, On 07/28/24 at 1130 Start: 07-28-2024 50 mg, INTRAVE NOUS, NEEDED, 1 dose, Starting on 07/28/24 at 1122, Until Discontinued, Administer per hypersensitivity/anaphylaxis grading in nursing communication enteric contrast (will be provided with radiology test) (7 sources) Start: 05-20-2024 End: 06-01-2024 enteric contrast (will be provided with radiology test) Indications: Breast cancer 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, left (HCC) , Malignant neoplasm of overlapping sites of left breast in female, estrogen receptor negative (HCC) For CT ABD/PEL W IVCON Routine order Administer, As Directed One Time Only, via Oral, Rectal, both Oral and Rectal, Enteric Tube, Stoma or Indwelling Catheter, Enteric Contrast as designated per enteric contrast guidelines 1 Each 05/20/2024 06/01/2024 Discontinued (Course of therapy completed) Start: 05-20-[address] (will be provided with radiology test) Indications: Breast cancer 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, left (HCC) , Malignant neoplasm of overlapping sites of left breast in female, estrogen receptor negative (HCC) For CT ABD/PEL W IVCON Routine order Administer, As Directed One Time Only, via Oral, Rectal, both Oral and Rectal, Enteric Tube, Stoma or Indwelling Catheter, Enteric Contrast as designated per enteric contrast guidelines 1 Each 05/20/2024 Active Start: 02-24-2024 End: 02-25-2024 enteric contrast (will be pr ovided with radiology test) Indications: Malignant neoplasm of left breast in female, estrogen receptor negative, unspecified site of breast (HCC) , Breast cancer 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, left (HCC) , 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) For CT CHESTABD/PEL W IVCON Routine order Administer, As Directed One Time Only, via Oral, Rectal, both Oral and Rectal, Enteric Tube, Stoma or Indwelling Catheter, Enteric Contrast as designated per enteric contrast guidelines 1 Each 02/24/2024 02/25/2024 Active 2 ml famotidine 10 mg/ml injection (20 sources) Histamine-2 Receptor Antagonist Start: 12-08-2024 End: 12-08-2024 20 mg, INTRAVENOUS, ONCE, 1 dose, On Sat12/08/24 at 1130, REFRIGERATE Start: 11-24-2024 End: 11-24-2024 20 mg, INTRAVENOUS, ONCE, 1 dose, On Sat11/24/24 at 1300, REFRIGERATE Start: 11-17-2024 End: 11-17-2024 20 mg, INTRAVENOUS, ONCE, 1 dose, On Sat11/17/24 at 1230, REFRIGERATE Start: 11-10-2024 End: 11-10-2024 20 mg, INTRAVENOUS, ONCE, 1 dose, On Sat11/10/24 at 1330, REFRIGERATE Start: 11-03-2024 End: 11-03-2024 20 mg, INTRAVENOUS, ONCE, 1 dose, On e 11/03/24 at 1330, REFRIGERATE Start: 10-20-2024 End: 10-20-2024 20 mg, INTRAVENOUS, ONCE, 1 dose, On Sat10/20/24 at 0930, REFRIGERATE Start: 10-13-2024 End: 10-13-2024 20 mg, INTRAVENOUS, ONCE, 1 dose, On Sat10/13/24 at 1030, REFRIGERATE Start: 10-06-2024 End: 10-06-2024 20 mg, INTRAVENOUS, ONCE, 1 dose, On Sat10/06/24 at 0900, REFRIGERATE Start: 09-29-2024 End: 09-29-2024 20 mg, INTRAVENOUS, ONCE, 1 dose, On Sat09/29/24 at 1000, REFRIGERATE Start: 09-22-2024 End: 09-22-2024 20 mg, INTRAVENOUS, ONCE, 1 dose, On Sat09/22/24 at 0830, REFRIGERATE Start: 09-01-2024 End: 09-01-2024 20 mg, INTRAVENOUS, ONCE, 1 dose, On Sat09/01/24 at 1130, REFRIGERATE Start: 08-25-2024 End: 08-25-2024 20 mg, INTRAVENOUS, ONCE, 1 dose, On Sat08/25/24 at 1130, REFRIGERATE Start: 08-04-2024 End: 08-04-2024 20 mg, INTRAVENOUS, ONCE, 1 dose, On Sat08/04/24 at 1130, REFRIGERATE Start: 07-28-2024 End: 07-28-2024 20 mg, INTRAVENOUS, ONCE, 1 dose, On Sat07/28/24 at 1130, REFRIGERATE Start: 07-18-2023 End: 08-25-2023 take 1 tablet by mouth once daily famotidine (PEPCID) 40 mg tablet Take 1 tablet by mouth once daily. 30 tablet 5 07/18/2023 08/25/2023 Discontinued 0.8 ml filgrastim-aafi 0.6 mg/ml prefilled syringe (19 sources) Leukocyte Growth Factor Start: 11-20-2024 End: 11-20-2024 inject 1 dose by subcutaneous injection once 480 mcg, SUBCUTANEOUS, ONCE, 1 dose, On Sat11/20/24 at 1530, Refrigerate - Protect from light Start: 11-19-2024 End: 11-19-2024 inject 1 dose by subcutaneous injection once 480 mcg, SUBCUTANEOUS, ONCE, 1 dose, On Sat11/19/24 at 1600, Refrigerate - Protect from light Start: 11-18-2024 End: 11-18-2024 inject 1 dose by subcutaneous injection once 480 mcg, SUBCUTANEOUS, ONCE, 1 dose, On Sat11/18/24 at 1100, Refrigerate - Protect from light Start: 11-16-2024 End: 11-16-2024 inject 1 dose by subcutaneous injection once 480 mcg, SUBCUTANEOUS, ONCE, 1 dose, On Sat11/16/24 at 0930, Refrigerate - Protect from light Start: 11-09-2024 End: 11-09-2024 inject 1 dose by subcutaneous injection once 480 mcg, SUBCUTANEOUS, ONCE, 1 dose, On Sat11/09/24 at 0900, Refrigerate - Protect from light Start: 11-06-2024 End: 11-06-2024 inject 1 dose by subcutaneous injection once 480 mcg, SUBCUTANEOUS, ONCE, 1 dose, On Sat11/06/24 at 0930, Refrigerate - Protect from light Start: 11-04-2024 End: 11-05-2024 inject 1 dose by subcutaneous injection once 480 mcg, SUBCUTANEOUS, ONCE, 1 dose, On Sat11/05/24 at 1530, Refrigerate - Protect from light Start: 11-02-2024 End: 11-02-2024 inject 1 dose by subcutaneous injection once 480 mcg, SUBCUTANEOUS, ONCE, 1 dose, On Sat11/02/24 at 1130, Refrigerate - Protect from light Start: 10-21-2024 End: 10-23-2024 inject 1 dose by subcutaneous injection once 480 mcg, SUBCUTANEOUS, ONCE, 1 dose, On Sat10/23/24 at 0930, Refrigerate - Protect from light Start: 10-12-2024 End: 10-12-2024 inject 1 dose by subcutaneous injection once 480 mcg, SUBCUTANEOUS, ONCE, 1 dose, On Sat10/12/24 at 1600, Refrigerate - Protect from light Start: 10-08-2024 End: 10-09-2024 inject 1 dose by subcutaneous injection once 480 mcg, SUBCUTANEOUS, ONCE, 1 dose, On Sat10/09/24 at 1400, Refrigerate - Protect from light Start: 07-18-2023 End: 07-18-2023 filgrastim biosimilar 300 mc g injection (ZARXIO) Start: 07-17-2023 End: 07-17-2023 filgrastim biosimilar 300 mc g injection (ZARXIO) Start: 07-15-2023 End: 07-16-2023 filgrastim biosimilar 300 mc g injection (ZARXIO) fosaprepitant 150 mg in NaCl 0.9% 250 mL (EMEND) (3 sources) Start: 12-08-2024 End: 12-08-2024 150 mg, INTRAVENOUS, Adminis ter over 30 Minutes, ONCE, 1 dose, On Sat12/08/24 at 1130, Approximate Total Volume = 280 mL Refrigerate Start: 11-24-2024 End: 11-24-2024 150 mg, INTRAVENOUS, Adminis ter over 30 Minutes, ONCE, 1 dose, On Sat11/24/24 at 1300, Approximate Total Volume = 280 mL Refrigerate Start: 11-17-2024 End: 11-17-2024 150 mg, INTRAVENOUS, Adminis ter over 30 Minutes, ONCE, 1 dose, On Sat11/17/24 at 1230, Approximate Total Volume = 280 mL Refrigerate gabapentin 300 mg oral capsule (20 sources) Anti-epileptic Agent End: 12-08-2024 take 1 capsule by mouth once daily as needed gabapentin (NEURONTIN) 300 mg capsule Take 300 mg by mouth once daily as needed. 12/08/2024 Discontinued hydrocortisone 100 mg injection (1 source) Corticosteroid Start: 07-28-2024 100 mg, INTRAVENOUS, NEEDED, 1 dose, Starting on Sat07/28/24 at 1122, Until Discontinued, Administer per hypersensitivity/a naphylaxis grading in nursing communication hyoscyamine sulfate 0.125 mg sublingual tablet (3 sources) Start: 12-08-2024 End: 12-08-2024 take 0.25 mg under the tongue once 0.25 mg, SUBLINGUAL, ONCE, 1 dose, On Sat12/08/24 at 1130 Start: 11-24-2024 End: 11-24-2024 take 0.25 mg under the tongue once 0.25 mg, SUBLINGUAL, ONCE, 1 dose, On Sat11/24/24 at 1300 Start: 11-17-2024 End: 11-17-2024 take 0.25 mg under the tongue once 0.25 mg, SUBLINGUAL, ONCE, 1 dose, On Sat11/17/24 at 1230 iv contrast (will be provide d with radiology test) (20 sources) Start: 11-16-2024 End: 11-17-2024 iv contrast (will be provide d with radiology test) Indications: Brachial plexus disorders , 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) , Breast cancer 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, left (HCC) , Triple negative breast cancer (HCC) , Neuropathy, arm, left MRI brach/plex Lt Inj, intravenously, once for 1 dose. No IV access, insert saline lock prior to the beginning of sedation, infusion, injection of imaging exam. Discontinue saline lock post exam. If Pt. has a central line or IVAD, may access for administration according to line specific nursing protocol. Once exam is complete flush line and de-access according to line specific nursing protocol in the MR contrast administration guidelines link. 1 each 11/16/2024 11/17/2024 Start: 11-16-2024 End: 11-17-2024 iv contrast (will be provide d with radiology test) Indications: Brachial plexus disorders , 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) , Breast cancer 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, left (HCC) , Triple negative breast cancer (HCC) , Neuropathy, arm, left MRI brach/plex Lt Inj, intravenously, once for 1 dose. No IV access, insert saline lock prior to the beginning of sedation, infusion, injection of imaging exam. Discontinue saline lock post exam. If Pt. has a central line or IVAD, may access for administration according to line specific nursing protocol. Once exam is complete flush line and de-access according to line specific nursing protocol in the MR contrast administration guidelines link. 1 each 11/16/2024 11/17/2024 Active Start: 10-06-2024 End: 10-07-2024 iv contrast (will be provide d with radiology test) MRI brach/plex Lt Inj, intravenously, once for 1 dose. No IV access, insert saline lock prior to the beginning of sedation, infusion, injection of imaging exam. Discontinue saline lock post exam. If Pt. has a central line or IVAD, may access for administration according to line specific nursing protocol. Once exam is complete flush line and de-access according to line specific nursing protocol in the MR contrast administration guidelines link. 1 each 10/06/2024 10/07/2024 Active Start: 09-22-2024 End: 09-23-2024 iv contrast (will be provide d with radiology test) Indications: Malignant neoplasm of overlapping sites of left breast in female, estrogen receptor negative (HCC) , 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) , Triple negative breast cancer (HCC) , Left arm numbness CT Chest W -Inject, intravenously, once for 1 dose.No IV access, insert saline lock prior to the beginning of sedation, infusion, injection of imaging exam. Discontinue saline lock post exam. If Pt. has a central line or IVAD, may access for administration according to line specific nursing protocol. Once exam is complete flush line and de-access according to line specific nursing protocol in theCT contrast administration guidelines link. 1 each 09/22/2024 09/23/2024 Active Start: 05-20-2024 End: 06-01-2024 iv contrast (will be provide d with radiology test) Indications: Breast cancer 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, left (HCC) , Malignant neoplasm of overlapping sites of left breast in female, estrogen receptor negative (HCC) CT Chest W -Inject, intravenously, once for 1 dose.No IV access, insert saline lock prior to the beginning of sedation, infusion, injection of imaging exam. Discontinue saline lock post exam. If Pt. has a central line or IVAD, may access for administration according to line specific nursing protocol. Once exam is complete flush line and de-access according to line specific nursing protocol in the CT contrast administration guidelines link. 1 Each 05/20/2024 06/01/2024 Discontinued (Course of therapy completed) Start: 05-20-2024 End: 06-01-2024 iv contrast (will be provide d with radiology test) Indications: Breast cancer 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, left (HCC) , Malignant neoplasm of overlapping sites of left breast in female, estrogen receptor negative (HCC) CT ABD/PEL -Inject, intravenously, once for 1 dose.No IV access, insert saline lock prior to the beginning of sedation, infusion, injection of imaging exam. Discontinue saline lock post exam. If Pt. has a central line or IVAD, may access for administration according to line specific nursing protocol. Once exam is complete flush line and de-access according to line specific nursing protocol in the CT contrast administration guidelines link. 1 Each 05/20/2024 06/01/2024 Discontinued (Course of therapy completed) Start: 05-20-2024 iv contrast (w ill be provided with radiology test) Indications: Breast cancer 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, left (HCC) , Malignant neoplasm of overlapping sites of left breast in female, estrogen receptor negative (HCC) CT Chest W -Inject, intravenously, once for 1 dose.No IV access, insert saline lock prior to the beginning of sedation, infusion, injection of imaging exam. Discontinue saline lock post exam. If Pt. has a central line or IVAD, may access for administration according to line specific nursing protocol. Once exam is complete flush line and de-access according to line specific nursing protocol in the CT contrast administration guidelines link. 1 Each 05/20/2024 Active Start: 05-20-2024 iv contrast (w ill be provided with radiology test) Indications: Breast cancer 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, left (HCC) , Malignant neoplasm of overlapping sites of left breast in female, estrogen receptor negative (HCC) CT ABD/PEL -Inject, intravenously, once for 1 dose.No IV access, insert saline lock prior to the beginning of sedation, infusion, injection of imaging exam. Discontinue saline lock post exam. If Pt. has a central line or IVAD, may access for administration according to line specific nursing protocol. Once exam is complete flush line and de-access according to line specific nursing protocol in the CT contrast administration guidelines link. 1 Each 05/20/2024 Active Start: 02-24-2024 End: 02-25-2024 iv contrast (will be provide d with radiology test) Indications: Malignant neoplasm of left breast in female, estrogen receptor negative, unspecified site of breast (HCC) , Breast cancer 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, left (HCC) , 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) CT Chest ABD/PEL-Inject, intravenously, once for 1 dose.No IV access, insert saline lock prior to the beginning of sedation, infusion, injection of imaging exam. Discontinue saline lock post exam. If Pt. has a central line or IVAD, may access for administration according to line specific nursing protocol. Once exam is complete flush line and de-access according to line specific nursing protocol in the CT contrast administration guidelines link. 1 Each 02/24/2024 02/25/2024 Active Start: 07-15-2023 End: 07-16-2023 iv contrast (will be provide d with radiology test) Indications: Malignant neoplasm of overlapping sites of left breast in female, estrogen receptor negative (HCC) , 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) MRI Breast TARAH Inject, intravenously, once for [...] in the MR contrast administration guidelines link 1 Each 0 07/15/2023 07/16/2023 Start: 07-15-2023 End: 07-16-2023 iv contrast (will be provide d with radiology test) Indications: Malignant neoplasm of overlapping sites of left breast in female, estrogen receptor negative (HCC) , 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) MRI Breast TARAH Inject, intravenously, once for [...] in the MR contrast administration guidelines link 1 Each 0 07/15/2023 07/16/2023 Active Magnesium (20 sources) End: 05-16-2023 take 1 tablet by mouth once daily Magnesium 250 mg tab Take 250 mg by mouth once daily. 05/16/2023 Discontinued End: 05-16-2023 take 1 tablet by mouth once daily Magnesium 250 mg tab Take 250 mg by mouth once daily. 0 05/16/2023 Discontinued take 1 tablet by reinaldo th once daily Magnesium 250 mg tab Take 250 mg by mouth once daily. 0 Active Comment on above: Take 250 mg by mouth once daily. meclizine hydrochloride 25 mg oral tablet (1 source) Antiemetic Start: End: take 1 tablet by mouth every six hours as needed for dizziness meclizine (ANTIVERT) 25 mg tab Indications: Vertigo Take 1 tablet by mouth every 6 hours as needed (dizziness). 12 tablet 0 03/17/2021 09/18/2021 Discontinued Comment on above: Take 1 tablet by reinaldo th every 6 hours as needed (dizziness). metroNIDAZOLE 500 mg oral tablet (14 sources) Nitroimidazole Antimicrobial Start: End: take 1 tablet by mouth three times daily Metronidazole 500 MG tablet Discontinued 500 mg PO THREE TIMES A DAY 21 7 0 November 29, 2019 12:00am December 05, 2019 12:00am December 06, 2019 12:03am omeprazole 40 mg delayed release oral capsule (20 sources) Proton Pump Inhibitor Start: 020 End: take 1 capsule by mouth once daily Omeprazole 40 MG capsule,delayed release(DR/EC) Discontinued 40 mg PO DAILY December 18, 2019 8:48am April 17, 2023 9:24am reflux 2 ml ondansetron 2 mg/ml injection (20 sources) Serotonin-3 Receptor Antagonist Start: 025 End: 8 mg, INTRAVENOUS, ONCE, 1 dose, On Sat11/10/24 at 1330 Start: 11-03-2024 End: 11-03-2024 8 mg, INTRAVENOUS, ONCE, 1 d ose, On Sat11/03/24 at 1330 Start: 10-20-2024 End: 10-20-2024 8 mg, INTRAVENOUS, ONCE, 1 d ose, On Sat10/20/24 at 0930 Start: 10-13-2024 End: 10-13-2024 8 mg, INTRAVENOUS, ONCE, 1 d ose, On Sat10/13/24 at 1030 Start: 10-06-2024 End: 10-06-2024 8 mg, INTRAVENOUS, ONCE, 1 d ose, On Sat10/06/24 at 0900 Start: 09-29-2024 End: 09-29-2024 8 mg, INTRAVENOUS, ONCE, 1 d ose, On Sat09/29/24 at 1000 Start: 09-22-2024 End: 09-22-2024 8 mg, INTRAVENOUS, ONCE, 1 d ose, On Sat09/22/24 at 0830 Start: 09-01-2024 End: 09-01-2024 8 mg, INTRAVENOUS, ONCE, 1 d ose, On Sat09/01/24 at 1130 Start: 08-25-2024 End: 08-25-2024 8 mg, INTRAVENOUS, ONCE, 1 d ose, On Sat08/25/24 at 1130 Start: 08-04-2024 End: 08-04-2024 8 mg, INTRAVENOUS, ONCE, 1 d ose, On Sat08/04/24 at 1130 Start: 07-28-2024 End: 07-28-2024 8 mg, INTRAVENOUS, ONCE, 1 d ose, On Sat07/28/24 at 1130 Start: 07-04-2023 End: 08-25-2023 take 1 tablet by mouth once daily as needed for nausea ondansetron (ZOFRAN) 4 mg tablet Indications: Nausea , CINV (chemotherapy-induced nausea and vomiting) Take 1 tablet by mouth once daily as needed for nausea/vomiting. FOR NAUSEA 30 tablet 0 07/04/2023 08/25/2023 Discontinued Start: 09-18-2021 End: 05-16-2023 take 1 tablet by mouth every six hours as needed for nausea and nausea ondansetron orally disintegrating (ZOFRAN ODT) 4 mg disintegrating tablet Indications: Nausea Take 1 tablet by mouth every 6 hours as needed for nausea/vomiting. 20 tablet 06/12/2022 05/16/2023 Discontinued Start: 12-18-2019 End: 11-02-2024 take 1 tablet by mouth every eight hours as needed for nausea and vomiting ondansetron (ZOFRAN) 8 mg tablet Indications: Triple negative breast cancer (HCC) Take 1 tablet by mouth every 8 hours as needed (For chemotherapy induced nausea and vomiting.). 30 tablet 2 11/02/2024 Active Comment on above: Take 1 tablet by reinaldo th every 6 hours as needed for nausea/vomiting. Take 1 tablet by reinaldo th once daily as needed for nausea/vomiting. FOR NAUSEA PACLitaxel 144 mg in NaCl 0.9% 299 mL (TAXOL) (11 sources) Start: 11-10-2024 End: 11-10-2024 144 mg (90 mg/m2 1.6 m2 Treatment Plan BSA from Recorded weight), INTRAVENOUS, at 299 mL/hr, Administer over 1 Hours, ONCE, 1 dose, On Sat11/10/24 at 1430, exp 1100 11/20/24 (refrigerated) Hazardous Chemotherapy Drug: Use appropriate PPE. Antineoplastic Irritant with Vesicant Potential. Administer with non-DEHP 0.2 micron filter and tubing. Start: 11-03-2024 End: 11-03-2024 144 mg (90 mg/m2 1.6 m2 Shayna tment Plan BSA from Recorded weight), INTRAVENOUS, at 299 mL/hr, Administer over 1 Hours, ONCE, 1 dose, On Sat11/03/24 at 1400, exp 1400 11/12/24 (refrigerated) Hazardous Chemotherapy Drug: Use appropriate PPE. Antineoplastic Irritant with Vesicant Potential. Administer with non-DEHP 0.2 micron filter and tubing. Start: 10-20-2024 End: 10-20-2024 144 mg (90 mg/m2 1.6 m2 Shayna tment Plan BSA from Recorded weight), INTRAVENOUS, at 299 mL/hr, Administer over 1 Hours, ONCE, 1 dose, On Sat10/20/24 at 1030, Approx Total Volume - Expires: 10/21/24 @ 1535 Hazardous Chemotherapy Drug: Use appropriate PPE. Antineoplastic Irritant with Vesicant Potential. Administer with non-DEHP 0.2 micron filter and tubing. Start: 10-13-2024 End: 10-13-2024 144 mg (90 mg/m2 1.6 m2 Shayna tment Plan BSA from Recorded weight), INTRAVENOUS, at 299 mL/hr, Administer over 1 Hours, ONCE, 1 dose, On Sat10/13/24 at 1100, exp 1430 10/22/24 (refrigerated) Hazardous Chemotherapy Drug: Use appropriate PPE. Antineoplastic Irritant with Vesicant Potential. Administer with non-DEHP 0.2 micron filter and tubing. Start: 10-06-2024 End: 10-06-2024 144 mg (90 mg/m2 1.6 m2 Shayna tment Plan BSA from Recorded weight), INTRAVENOUS, at 299 mL/hr, Administer over 1 Hours, ONCE, 1 dose, On Sat10/06/24 at 0930, exp 0900 10/16/24 (refrigerated). Hazardous Chemotherapy Drug: Use appropriate PPE. Antineoplastic Irritant with Vesicant Potential. Administer with non-DEHP 0.2 micron filter and tubing. Start: 09-29-2024 End: 09-29-2024 144 mg (90 mg/m2 1.6 m2 Shayna tment Plan BSA from Recorded weight), INTRAVENOUS, at 299 mL/hr, Administer over 1 Hours, ONCE, 1 dose, On Sat09/29/24 at 1030, exp 1430 10/08/24 (refrigerated) Hazardous Chemotherapy Drug: Use appropriate PPE. Antineoplastic Irritant with Vesicant Potential. Administer with non-DEHP 0.2 micron filter and tubing. Start: 09-22-2024 End: 09-22-2024 144 mg (90 mg/m2 1.6 m2 Shayna tment Plan BSA from Recorded weight), INTRAVENOUS, at 299 mL/hr, Administer over 1 Hours, ONCE, 1 dose, On Sat09/22/24 at 0900, exp 08:30 09/26/24 (room temp) Hazardous Chemotherapy Drug: Use appropriate PPE. Antineoplastic Irritant with Vesicant Potential. Administer with non-DEHP 0.2 micron filter and tubing. Start: 09-01-2024 End: 09-01-2024 144 mg (90 mg/m2 1.6 m2 Shayna tment Plan BSA from Recorded weight), INTRAVENOUS, at 299 mL/hr, Administer over 1 Hours, ONCE, 1 dose, On Sat09/01/24 at 1200, exp 0900 09/11/24 (refrigerated) Hazardous Chemotherapy Drug: Use appropriate PPE. Antineoplastic Irritant with Vesicant Potential. Administer with non-DEHP 0.2 micron filter and tubing. Start: 08-25-2024 End: 08-25-2024 144 mg (90 mg/m2 1.6 m2 Shayna tment Plan BSA from Recorded weight), INTRAVENOUS, at 299 mL/hr, Administer over 1 Hours, ONCE, 1 dose, On Sat08/25/24 at 1200, exp 0900 09/04/24 (refrigerated) Hazardous Chemotherapy Drug: Use appropriate PPE. Antineoplastic Irritant with Vesicant Potential. Administer with non-DEHP 0.2 micron filter and tubing. Start: 08-04-2024 End: 08-04-2024 144 mg (90 mg/m2 1.6 m2 Shayna tment Plan BSA from Recorded weight), INTRAVENOUS, at 299 mL/hr, Administer over 1 Hours, ONCE, 1 dose, On Sat08/04/24 at 1200, exp 1030 08/14/24 (refrigerated) Hazardous Chemotherapy Drug: Use appropriate PPE. Antineoplastic Irritant with Vesicant Potential. Administer with non-DEHP 0.2 micron filter and tubing. Start: 07-28-2024 End: 07-28-2024 144 mg (90 mg/m2 1.6 m2 Shayna tment Plan BSA from Recorded weight), INTRAVENOUS, at 299 mL/hr, Administer over 1 Hours, ONCE, 1 dose, On Sat07/28/24 at 1230, exp 1800 07/29/24 (room temp) Hazardous Chemotherapy Drug: Use appropriate PPE. Antineoplastic Irritant with Vesicant Potential. Administer with non-DEHP 0.2 micron filter and tubing. 5 ml palonosetron 0.05 mg/ml injection (3 sources) Serotonin-3 Receptor Antagonist Start: 12-08-2024 End: 12-08-2024 0.25 mg, INTRAVENOUS, ONCE, 1 dose, On Sat12/08/24 at 1130, Flush IV line with NS prior to and following administration. Start: 11-24-2024 End: 11-24-2024 0.25 mg, INTRAVENOUS, ONCE, 1 dose, On Sat11/24/24 at 1300, Flush IV line with NS prior to and following administration. Start: 11-17-2024 End: 11-17-2024 0.25 mg, INTRAVENOUS, ONCE, 1 dose, On Sat11/17/24 at 1230, Flush IV line with NS prior to and following administration. pegfilgrastim-cbqv 6 mg wear able injection (LILY ONBODY) (1 source) Start: 11-24-2024 End: 11-24-2024 6 mg, SUBCUTANEOUS, ONCE, 1 dose, On Sat11/24/24 at 1300, In order to administer the on-body injector, the device needs to be loaded with the drug by a medical professional. Once loaded, the medical professional will apply the device to the patient on the tricep or abdomen. The device administers the drug to the patient 27 hours after it is applied and drug is delivered over 5 minutes. At the conclusion of the administration, the indicator light will turn to a solid green at which time the device can safely be removed by the patient. If the device fails, the indicator light will turn red. Refrigerate pembrolizumab 200 mg in NaCl 0.9% 66 mL (KEYTRUDA) (5 sources) Start: 11-10-2024 End: 11-10-2024 200 mg, INTRAVENOUS, Administer over 30 Minutes, ONCE, 1 dose, On Sat11/10/24 at 1400, exp 2000 11/10/24 (room temp) Administer with 0.2 micron filter. Start: 10-20-2024 End: 10-20-2024 200 mg, INTRAVENOUS, Adminis ter over 30 Minutes, ONCE, 1 dose, On Sat10/20/24 at 1000, Approx Total Volume - Expires: 10/20/24 @ 1535 Administer with 0.2 micron filter. Start: 08-30-2023 End: 08-30-2023 pembrolizumab 200 mg in NaCl 0.9% 66 mL (KEYTRUDA) Start: 08-09-2023 End: 08-09-2023 pembrolizumab 200 mg in NaCl 0.9% 66 mL (KEYTRUDA) Start: 07-19-2023 End: 07-19-2023 pembrolizumab 200 mg in NaCl 0.9% 66 mL (KEYTRUDA) pembrolizumab 400 mg in NaCl 0.9% 74 mL (KEYTRUDA) (6 sources) Start: 09-08-2024 End: 09-08-2024 400 mg, INTRAVENOUS, Adminis ter over 30 Minutes, ONCE, 1 dose, On Sat09/08/24 at 1230, exp 1800 09/08/24 (room temp) Administer with 0.2 micron filter. Start: 07-28-2024 End: 07-28-2024 400 mg, INTRAVENOUS, Adminis ter over 30 Minutes, ONCE, 1 dose, On Sat07/28/24 at 1200, Approx Total Volume - Expires: 07/28/24 @ 1800 Administer with 0.2 micron filter. Start: 02-25-2024 End: 02-25-2024 400 mg, INTRAVENOUS, Adminis ter over 30 Minutes, ONCE, 1 dose, On Sat02/25/24 at 1430, exp 0900 02/29/24 (refrigerated) Administer with 0.2 micron filter. Start: 01-14-2024 End: 01-14-2024 400 mg, INTRAVENOUS, Adminis ter over 30 Minutes, ONCE, 1 dose, On Sat01/14/24 at 1430, exp 1200 01/18/24 (refrigerated) Administer with 0.2 micron filter. Start: 12-03-2023 End: 12-03-2023 400 mg, INTRAVENOUS, Adminis ter over 30 Minutes, ONCE, 1 dose, On Sat12/03/23 at 1500, Approx Total Volume - Expires: 12/03/23 @ 2049 Administer with 0.2 micron filter. Start: 10-22-2023 End: 10-22-2023 pembrolizumab 400 mg in NaCl 0.9% 74 mL (KEYTRUDA) potassium chloride 10 meq extended release oral tablet (20 sources) Start: 10-27-2024 End: 12-08-2024 take 1 tablet by mouth once daily potassium chloride (K-TAB) 10 mEq tablet Take 1 tablet by mouth once daily. 30 tablet 2 10/27/2024 12/08/2024 Discontinued Potassium Chloride (Klor-Con M20) 20 MEQ Tab.Er.Prt (14 sources) Start: 11-29-2019 End: 12-04-2019 take 1 tablet by mouth once daily Potassium Chloride (Klor-Con M20) 20 MEQ Tab.Er.Prt Discontinued 20 meq PO DAILY 5 November 29, 2019 12:00am December 03, 2019 12:00am December 04, 2019 12:02am Start: 11-29-2019 End: 12-04-2019 take 1 tablet by mouth once daily Potassium Chloride (Klor-Con M20) 20 MEQ Tab.Er.Prt Discontinued 20 meq PO DAILY 07 27November 29, 2019 12:00am December 03, 2019 12:00am December 04, 2019 12:02am Start: 11-29-2019 End: 12-04-2019 take 1 tablet by mouth once daily Potassium Chloride (Klor-Con M20) 20 MEQ Tab.Er.Prt Discontinued 20 MEQ PO DAILY 07 27November 28, 2019 11:00pm December 03, 2019 11:02pm Start: 11-29-2019 End: 12-04-2019 take 1 tablet by mouth once daily Potassium Chloride (Klor-Con M20) 20 MEQ Tab.Er.Prt Discontinued 20 MEQ PO DAILY 07 27November 29, 2019 12:00am December 04, 2019 12:02am potassium gluconate 2.5 meq oral tablet (10 sources) Potassium 99 mg tab Take by mouth. 0 Active Comment on above: Take by mouth. predniSONE 20 mg oral tablet (20 sources) Start: 09-17-2024 End: 12-08-2024 take 2 tablets by mouth once daily predniSONE (DELTASONE) 20 mg tablet Take 2 tablets by mouth once daily. 09/17/2024 12/08/2024 Discontinued Start: 11-03-2019 End: 11-15-2019 Prednisone 10 mg tablet Disc ontinued 10 mg PO daily 30 12 0 November 03, 2019 12:00am November 14, 2019 12:00am November 15, 2019 12:02am Unspecified contact dermatitis, unspecified cause Take 4 tabs once daily days 1-3 3 tabs once daily days 4-6 2 tabs once daily days 7-9 and 1 tab once daily days 10-12. sacituzumab govitecan-hziy 5 40 mg in NaCl 0.9% 329 mL (TRODELVY) (3 sources) Start: 12-08-2024 End: 12-08-2024 540 mg (rounded from 558 mg = 10 mg/kg/dose 55.8 kg Treatment plan Recorded weight), INTRAVENOUS, Administer over 1 Hours, ONCE, 1 dose, On Sat12/08/24 at 1200, exp immediate use (room temp) Hazardous Chemotherapy Drug: Use appropriate PPE. Protect from Light. Start: 11-24-2024 End: 11-24-2024 540 mg (rounded from 558 mg = 10 mg/kg/dose 55.8 kg Treatment plan Recorded weight), INTRAVENOUS, Administer over 1 Hours, ONCE, 1 dose, On Sat11/24/24 at 1330, exp immediate use (room temp) Hazardous Chemotherapy Drug: Use appropriate PPE. Protect from Light. Start: 11-17-2024 End: 11-17-2024 540 mg (rounded from 558 mg = 10 mg/kg/dose 55.8 kg Treatment plan Recorded weight), INTRAVENOUS, Administer over 3 Hours, ONCE, 1 dose, On Sat11/17/24 at 1300, EXP: 11/18/24 @1230 REF Hazardous Chemotherapy Drug: Use appropriate PPE. Protect from Light. 1000 ml sodium chloride 9 mg/ml injection (1 source) Start: 07-28-2024 500-999 mL/hr, INTRAVENOUS, NEEDED, 1 dose, Starting on Sat07/28/24 at 1122, Until Discontinued, Hypotension (titrate to maintain SBP greater than 100), Administer per hypersensitivity/anaphylaxis grading in nursing communication sucralfate 1000 mg oral tablet (20 sources) Aluminum Complex Start: 11-26-2019 End: 04-17-2023 take 1 tablet by mouth three times daily Sucralfate 1 GM tablet Discontinued 1 g PO THREE TIMES A DAY December 18, 2019 8:48am April 17, 2023 9:25am Problems Active Problems Problem Classification Problem Date Documented Da te Episodic/Chronic Abdominal pain (2 sources) Epigastric pain; Translations: [Epigastric pain] Episodic Allergic reactions (15 sources) Irritant contact dermatitis due to plant; Translations: [Irritant contact dermatitis due to plants, except food] 11-27-2019 Episodic Cancer of breast (20 sources) Malignant neoplasm of female breast; Translations: [Malignant neoplasm of unspecified site of unspecified female breast] Onset: 4 04-10-2023 Chronic Cancer of breast (20 sources) History of malignant neoplasm of breast; Translations: [Personal history of malignant neoplasm of breast] Onset: 4 04-11-2023 Episodic Cardiac dysrhythmias (1 source) Palpitations; Translations: [Palpitations] 07-22-2023 Episodic Diseases of white blood cells (20 sources) Neutropenia due to and following chemotherapy; Translations: [Agranulocytosis secondary to cancer chemotherapy] Onset: 5 10-08-2024 Chronic Esophageal disorders (1 source) Gastroesophageal reflux disease; Translations: [Gastro-esophageal reflux disease without esophagitis] Chronic Fluid and electrolyte disorders (14 sources) Hypokalemia; Translations: [Hypokalemia] 11-29-2019 Episodic Gastrointestinal hemorrhage (20 sources) Rectal hemorrhage; Translations: [Hemorrhage of anus and rectum] 06-02-2015 Episodic Lymphadenitis (3 sources) Axillary lymphadenopathy; Translations: [Localized enlarged lymph nodes] 03-13-2023 Episodic Malaise and fatigue (18 sources) Malaise and fatigue; Translations: [Other malaise] 04-25-2023 Episodic Nausea and vomiting (4 sources) Nausea; Translations: [Nausea] Episodic Noninfectious gastroenteritis (20 sources) Enteritis of small intestine; Translations: [Noninfective gastroenteritis and colitis, unspecified] 11-29-2019 Episodic Nonmalignant breast conditions (15 sources) Unspecified lump in the right breast, unspecified quadrant; Translations: [Unspecified lump in the left breast, upper outer quadrant] Onset: 4 09-10-2023 Episodic Other aftercare (8 sources) Patient encounter status; Translations: [Encounter for adjustment and management of vascular access device] 04-17-2023 Episodic Other aftercare (1 source) Encounter for adjustment and management of vascular access device; Translations: [Fitting and adjustment of vascular catheter] 04-17-2023 Episodic Other aftercare (3 sources) Drug therapy finding; Translations: [Encounter for therapeutic drug level monitoring] 07-18-2023 Episodic Other aftercare (1 source) Radiotherapy follow-up; Translations: [Encounter for follow-up examination after completed treatment for conditions other than malignant neoplasm] 01-22-2024 Episodic Other connective tissue disease (2 sources) Muscle weakness; Translations: [Muscle weakness (generalized)] 07-22-2023 Episodic Other connective tissue disease (1 source) Nocturnal muscle cramp; Translations: [Cramp and spasm] 02-24-2024 Episodic Other ear and sense organ disorders (1 source) Tinnitus of vascular origin; Translations: [Pulsatile tinnitus, unspecified ear] 06-17-2023 Episodic Other endocrine disorders (1 source) Unspecified adrenocortical insufficiency; 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)] Onset: 5 Chronic Other eye disorders (1 source) Vitreous hemorrhage Onset: 8 Chronic Other gastrointestinal disorders (1 source) Diarrhea; Translations: [Diarrhea, unspecified] Episodic Other nervous system disorders (7 sources) Brachial plexus disorder; Translations: [Brachial plexus disorders] 10-06-2024 Chronic Other nervous system disorders (2 sources) Left arm peripheral neuropathy; Translations: [Unspecified mononeuropathy of left upper limb] 11-16-2024 Chronic Other nervous system disorders (1 source) Unspecified mononeuropathy of left upper limb; Translations: [Neuropathy, arm, left] Onset: 5 Chronic Other nervous system disorders (1 source) Brachial plexus disorders; Translations: [Brachial plexus disorders] Onset: 5 Chronic Other nervous system disorders (1 source) Lesion of ulnar nerve, left upper limb; Translations: [Lesion of ulnar nerve, left upper limb] Onset: 5 Chronic Other nervous system disorders (1 source) Postoperative pain ; Translations: [Other acute postprocedural pain] Onset: 4 Episodic Other nervous system disorders (6 sources) Numbness of upper limb; Translations: [Anesthesia of skin] 09-22-2024 Episodic Other nervous system disorders (4 sources) Anesthesia of skin; Translations: [Left arm numbness] Onset: 5 Episodic Other nervous system disorders (1 source) Paresthesia of skin; Translations: [Paresthesia of skin] Onset: 5 Episodic Other skin disorders (3 sources) Localized swelling, mass and lump, right upper limb; Translations: [Localized superficial swelling, mass, or lump] Onset: 5 11-04-2024 Episodic Residual codes; unclassified (20 sources) History of bilateral breast implants; Translations: [Breast implant status] Onset: 4 08-25-2023 Chronic Residual codes; unclassified (1 source) Breast prosthesis in situ; Translations: [Breast implant status] Onset: 4 Chronic Residual codes; unclassified (1 source) Influenza-like symptoms; Translations: [Other general symptoms and signs] Episodic Residual codes; unclassified (2 sources) H/O: radiation exposure; Translations: [Personal history of irradiation] 09-28-2024 Episodic Secondary malignancies (20 sources) Secondary malignant neoplasm of axillary lymph nodes; Translations: [Secondary and unspecified malignant neoplasm of axilla and upper limb lymph nodes] Onset: 4 04-12-2023 Chronic Secondary malignancies (7 sources) Secondary and unspecified malignant neoplasm of axilla and upper limb lymph nodes; Translations: [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)] Onset: 4 Chronic Secondary malignancies (2 sources) 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 07-30-2024 Chronic Secondary malignancies (1 source) Secondary malignant neoplasm of skin of breast 12-24-2024 Chronic Secondary malignancies (1 source) Secondary malignant neoplasm of skin; Translations: [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)] Onset: 5 Chronic Thyroid disorders (1 source) Hypothyroidism, unspecified; Translations: [Acquired hypothyroidism] Onset: 5 Chronic Unclassified (2 sources) Unknown / UNK(Unknown) Onset: 8 Unclassified (4 sources) Triple-negative breast cancer 07-30-2024 Unclassified (2 sources) Triple negative breast cancer (HCC); Translations: [Triple negative breast cancer (HCC)] Onset: 4 Unclassified (1 source) Other intervertebral disc degeneration, lumbar region without mention of lumbar back pain or lower extremity pain; Translations: [Other intervertebral disc degeneration, lumbar region without mention of lumbar back pain or lower extremity pain] Onset: 5 Viral infection (1 source) Acute viral disease; Translations: [Viral infection, unspecified] Episodic Past or Other Problems Problem Classification Problem Date Documented Da te Episodic/Chronic E Codes: Adverse effects of medical drugs (1 source) Adverse effect of antineoplastic and immunosuppressive drugs, initial encounter; Translations: [Chemotherapy induced neutropenia] Onset: 5 Episodic Other gastrointestinal disorders (20 sources) Constipation; Translations: [Constipation, unspecified] Onset: 7 09-19-2006 Episodic Other screening for suspected conditions (not mental disorders or infectious disease) (20 sources) Mammography abnormal; Translations: [Other abnormal and inconclusive findings on diagnostic imaging of breast] Onset: 4 Episodic Other skin disorders (1 source) Disorder of the skin and subcutaneous tissue, unspecified; Translations: [Skin lesions] Onset: 5 Episodic Other upper respiratory disease (5 sources) Congestion of nasal sinus; Translations: [Nasal discharge] Onset: 7 08-22-2016 Episodic Other upper respiratory disease (1 source) Nasal discharge; Translations: [Postnasal drip] Onset: 7 09-05-2016 Episodic Other upper respiratory infections (6 sources) Acute maxillary sinusitis; Translations: [Upper respiratory infection] Onset: 7 08-22-2016 Episodic Residual codes; unclassified (6 sources) Estrogen receptor negative status [ER-]; Translations: [Malignant neoplasm of left breast in female, estrogen receptor negative, unspecified site of breast (HCC) (HCC)] Onset: 4 Episodic Residual codes; unclassified (20 sources) At risk of lymphedema; Translations: [Other specified personal risk factors, not elsewhere classified] Onset: 4 08-25-2023 Episodic Residual codes; unclassified (10 sources) Past history of procedure; Translations: [Other specified postprocedural states] Onset: 2 09-23-2023 Episodic Comment on above: RIGHT BREAST BIOPSY Residual codes; unclassified (1 source) Personal history of irradiation; Translations: [Personal history of irradiation] Onset: 5 Episodic Spondylosis; intervertebral disc disorders; other back problems (1 source) Lumbago with sciatica, right side; Translations: [Lumbago with sciatica, right side] Onset: 5 Episodic Results Test Name Value Interpretation Reference Range Facility 12 Lead EKGon 01-10-2025 12 Lead EKG [facility] [address] [place] [address] 12 Lead EKG 01/10/25 1541 MR#: [id number] Acct: [id number] Name: Everette HERBERT Rep #: [id number] : 1960 64 From: Killian Beltran MD Attending Dr: Status: DEP ER Ordering Dr: Ajay Burnett DO Date: 5 Location: ED Sex: F C Admitted: Test Reason : FEVER Blood Pressure : */* mmHG Vent. Rate : 91 BPM Atrial Rate : 91 BPM P-R Int : 148 ms QRS Dur : 78 ms QT Int : 354 ms P-R-T Axes : 62 58 64 degrees QTcB Int : 435 ms Normal sinus rhythm Nonspecific ST abnormality Abnormal ECG Confirmed by EVANS ANAND, KILLIAN ([id number]), copy editor SOHA PRADO ([id number]) on 01/11/2025 10:40:00 AM Referred By: Confirmed By: KILLIAN BELTRAN MD 01/11/25 1040 Date Killian Beltran MD CC: Dr. Ajay Burnett, DO; Dr. Hellen Lafleur MD Signed Normal [facility] CBC W/Diff, Automatedon 12-23 PLT EST ADEQUATE Normal ADEQ [facility] Comment on above: Performed By: #### L 503.6005, L500.4050, L100.0100 ####[facility] [id number] [place], [address] RED CELL MORPH NORM C+C Normal NORM C C [facility] Comment on above: Performed By: #### L 503.6005, L500.4050, L100.0100 ####[facility] [address] [place], [address] Chest PA and Lateralon 01-10 Chest PA and Lateral [facility] [address] [place], [place] [address] Chest PA and Lateral MR#: [id number] Acct: [id number] Name: Everette HERBERT Rep #: [id number] : 1960 F 64 From: Rolando Brown DO PCP: Dr. Hellen Lafleur MD Status: REG ER Study: Chest PA and Lateral Date of Exam: 01/10/25 Exam# [id number] Ordering Dr: Ajay Burnett DO PROCEDURE: CHEST PA AND LATERAL 01/10/2025 REASON FOR EXAM: FEVER TECHNIQUE: Procedure Code: RAD CXR Modality: DX Procedure: CHEST PA AND LATERAL COMPARISON: Chest radiograph April 22, 2023 FINDINGS: Hardware: Medication port is no longer present. Surgical clips are seen projecting over the left breast area Heart: Normal size Mediastinum: Unremarkable Lungs: Clear Bones: Unremarkable No acute process RAD/Chest PA and Lateral IMPRESSION: No acute process. Reading Location: RAD-ABE- CC: Dr. Ajay Burnett DO; Dr. 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 Comprehensive Metabolic Prof ilon 01-10-2025 Albumin [Mass/Vol] 4.2 g/dL Normal 3.4-4.8 [facility] Comment on above: Performed By: #### L 503.6005, L500.4050, L100.0100 ####[facility] [address] [place], [address] Albumin/Globulin [Mass ratio] 2.1 {ratio} Normal 0.9-2.[address] [facility] Comment on above: Performed By: #### L 503.6005, L500.4050, L100.0100 ####[facility] [address] [place], [address] ALK PHOS 179 U/L High 35-[address] [facility] Comment on above: Performed By: #### L 503.6005, L500.4050, L100.0100 ####[facility] [address] [place], [address] ALT [Catalytic activity/Vol] 11 U/L Normal <=[address] [facility] Comment on above: Performed By: #### L 503.6005, L500.4050, L100.0100 ####[facility] [id number] [place], [address] AST [Catalytic activity/Vol] 19 U/L Normal <=[address] [facility] Comment on above: Performed By: #### L 503.6005, L500.4050, L100.0100 ####[facility] [address] [place], [address] Bilirubin [Mass/Vol] 0.19 mg/dL Normal 0.00-1.[address] [facility] Comment on above: Performed By: #### L 503.6005, L500.4050, L100.0100 ####[facility] [address] [place], [address] BUN/CRE 9.7 RATIO Low 10-[address] [facility] Comment on above: Performed By: #### L 503.6005, L500.4050, L100.0100 ####[facility] [address] [place], [address] Calcium [Mass/Vol] 8.9 mg/dL Normal 7.6-11.0 [facility] Comment on above: Performed By: #### L 503.6005, L500.4050, L100.0100 ####[facility] [address] [place], [address] Chloride [Moles/Vol] 96 mmol/L Low 98-[address] [facility] Comment on above: Performed By: #### L 503.6005, L500.4050, L100.0100 ####[facility] [address] [place], [address] CO2 [Moles/Vol] 26.5 mmol/L Normal 21.0-32.[address] [facility] Comment on above: Performed By: #### L 503.6005, L500.4050, L100.0100 ####[facility] [address] [place], [address] Creatinine [Mass/Vol] 0.71 mg/dL Normal 0.70-1.[address] [facility] Comment on above: Performed By: #### L 503.6005, L500.4050, L100.0100 ####[facility] [address] [place], [address] ECRCL 61.10 ml/min Normal 50-[address] [facility] Comment on above: Performed By: #### L 503.6005, L500.4050, L100.0100 ####[facility] [address] [place], [address] GAP 11 Normal 5-[address] [facility] Comment on above: Performed By: #### L 503.6005, L500.4050, L100.0100 ####[facility] [address] [place], [address] GFR/1.73 sq M.predicted among non-blacks MDRD (S/P/Bld) [Vol rate/Area] 94 mL/min/{1.73_m2} Normal >[address] [facility] Comment on above: Result Comment: mL/m in/1.73m2 CKD-EPI Creatinine Equation (2020) Performed By: #### L 503.6005, L500.4050, L100.0100 ####[facility] [address] [place], [address] Globulin (S) [Mass/Vol] 2.0 g/dL Low 2.2-4.[address] [facility] Comment on above: Performed By: #### L 503.6005, L500.4050, L100.0100 ####[facility] [address] [place], [address] Glucose [Mass/Vol] 122 mg/dL High 70-99 [facility] Comment on above: Performed By: #### L 503.6005, L500.4050, L100.0100 ####[facility] [address] [place], [address] Potassium [Moles/Vol] 3.4 mmol/L Normal 3.3-5.[address] [facility] Comment on above: Performed By: #### L 503.6005, L500.4050, L100.0100 ####[facility] [address] [place], [address] Sodium [Moles/Vol] 133 mmol/L Normal 133-145 [facility] Comment on above: Performed By: #### L 503.6005, L500.4050, L100.0100 ####[facility] [address] [place], [address] T PROT 6.2 g/dL Normal 5.9-8.[address] [facility] Comment on above: Performed By: #### L 503.6005, L500.4050, L100.0100 ####[facility] [address] [place], [address] Urea nitrogen [Mass/Vol] 7 mg/dL Normal - [facility] Comment on above: Performed By: #### L 503.6005, L500.4050, L100.0100 ####[facility] [address] [place], [address] Emergency Department Summary on 01-10-2025 Emergency Department Summary [facility] Department [address] [place] [address] Emergency Department Summary 01/10/25 MR#: [id number] Acct: [id number] Name: Everette HERBERT Rep #: [id number] : 1960 64 From: Ajay Burnett DO PCP: Dr. Hellen Lafleur MD Status:REG ER Location: ED HPI History of Present Illness Chief Complaint: Fever Narrative Narrative: Chief complaint and HPI: 64-year-old female with past medical history of breast cancer with history of surgery and radiation now only on chemotherapy who presents for evaluation of fever. Patient states that she is on a 2-week cycle of chemotherapy in which she gets a week off in between cycles. She states her last chemotherapy was Friday 01/05. States this Saturday will be her week off. Patient states yesterday she developed nasal congestion and sore throat. States her sore throat has already improved today. States she developed a fever in which she called oncology and they told her to present to the emergency department. Patient follows with Dr. Zhu. She denies any headache, neck pain, shortness of breath, chest pain, cough, abdominal pain, nausea, vomiting, dysuria. Has been taking Tylenol for her fever. Review of systems: See HPI Medications: As listed on the chart Allergies: As listed on the chart PFSH: Per chart Vital signs: As listed on the chart. Reviewed. Physical exam: Gen: A O x3, NAD Head: Normocephalic, atraumatic Eyes: No sclera icterus, conjunctiva clear, PERRL, EOMI ENT: TMs clear BL, moist mucous membranes, posterior oropharynx unremarkable, uvula midline, tonsils not enlarged, no tonsillar exudates Neck: Trachea midline, Full ROM, No meningismus CV: RRR, no murmurs Resp: Lungs CTA BL, no w/r/c GI: Abd soft, non-distended, non-tender, no r/r/g Musc: Full ROM, no deformity Skin: Warm, dry, no rash Neuro: Alert, oriented, grossly intact, sensation intact Psych: Cooperative, appropriate mood and affect [facility] Medical History (Updated 04/29/24 @ 13:09 by Kenn Amin) Encounter for insertion of venous access port Wears contact lenses Post-menopausal Cancer Heartburn Non-smoker History of retinal tear Gallbladder polyp Anxiety GERD (gastroesophageal reflux disease) Breast cancer Diarrhea Arthritis Home Medications ???Medication ???Instructions ???Recorded ???Last Taken ???Type paroxetine HCl 30 mg tablet 30 mg PO DAILY anxiety 11/03/19 History Saccharomyces boulardii 250 mg 250 mg PO BID digestion/probiotic 12/18/19 04/21/23 History capsule ondansetron HCl 8 mg tablet 4 - 8 mg PO Q8H PRN PRN Nausea Unknown History calcium carbonate (Calcium 600) 800 mg PO DAILY 04/17/23 04/21/23 History cholecalciferol (vitamin D3) 25 25 mcg PO DAILY 04/17/23 04/21/23 History mcg (1,000 unit) capsule magnesium oxide 500 mg capsule 250 mg PO DAILY 04/17/23 04/21/23 History multivitamin (Daily Multi-Vitamin 1 tab PO DAILY 04/18/23 04/21/23 History tablet) Allergy/AdvReac Type Severity Reaction Status Date / Time sulfamethoxazole (From Allergy Unknown Nausea/Vom/ Verified 04/29/24 13:10 Bactrim) Diarrhea trimethoprim (From Bactrim) Allergy Unknown Nausea/Vom/ Verified 04/29/24 13:10 Diarrhea Family History (Updated 04/17/23 @ 08:22 by Kenn Amin) Grandfather Diabetes Grandmother Hypertension CVA (cerebral vascular accident) Surgical History History of colonoscopy ( 01/2020) History of esophagogastroduodenoscopy (EGD) ( 01/2020) History of breast augmentation ( 2006) History of tubal ligation ( 1992) History of lumpectomy History of colonoscopy ( 2014) Social History Smoking Status: Never smoker alcohol intake: never EXAM Physical Exam Const Vital Signs: 01/10/25 15:16 01/10/25 15:36 01/10/25 16:47 Temperature 102.7 F H 98.7 F 99.7 F H Temperature Source Oral Oral Oral Pulse Rate 111 H 104 H 84 Respiratory Rate 20 H 18 18 Blood Pressure 142/56 H 129/55 H 105/39 L Blood Pressure Mean 84 79 61 Pulse Ox 95 95 100 Oxygen Delivery Method Room Air Room Air Room Air 01/10/25 17:46 01/10/25 18:00 Temperature 99.7 F H Temperature Source Oral Pulse Rate 84 Respiratory Rate 18 Blood Pressure 112/53 L Blood Pressure Mean 72 Pulse Ox 99 Oxygen Delivery Method Room Air Room Air MDM MDM MDM Narrative Medical decision making narrative: 64-year-old female with past medical history of breast cancer with history of surgery and radiation now only on chemotherapy who presents for evaluation of fever. Patient states that she is on a 2- week cycle of chemotherapy in which she gets a week off in between cycles. She states her (more content not included)... Normal [facility] Lactic Acidon 01-10-2025 Lactate [Moles/Vol] mmol/L Normal 0.0-2.0 [facility] Comment on above: Order Comment: Y Performed By: #### L 503.6005, L500.4050, L100.0100 ####[facility] [address] [place], [address] M100.678on 01-10-2025 M100.678 SARS-CoV-2 (COVID 19 ) Negative INFLUENZA A Negative INFLUENZA B Negative RSV PCR Negative Normal [facility] Comment on above: Performed By: #### M 100.678, L400.0001 #### [facility] [address] [facility] [place], [address] Partial Thromboplast Timeon 01-10-2025 aPTT Coag (Bld) [Time] 27.5 s Normal 24.1-36.[address] [facility] Comment on above: Performed By: #### L 300.4310, L300.3900 ####[facility] [address] [place], [address] Prothrombin Time w/INRon INR Coag (PPP) [Relative time] 1.0 {INR} Normal [facility] Comment on above: Performed By: #### L 300.4310, L300.3900 ####[facility] [address] [place], [address] PT Coag (PPP) [Time] 13.7 s Normal 11.7-14.[address] [facility] Comment on above: Performed By: #### L 300.4310, L300.3900 ####[facility] [address] [place], [address] Urinalysis, Completeon 01-10 BACTERIA 0 SEEN Normal None Seen [facility] Comment on above: Order Comment: CLEAN CATCH Performed By: #### M 100.678, L400.0001 #### [facility] [address] [place], [address] EPI,SQUAMOUS 0 SEEN Normal 5-[address] [facility] Comment on above: Order Comment: CLEAN CATCH Performed By: #### M 100.678, L400.0001 #### [facility] [address] [place], [address] Mucus Ql (Urine sed) 0 SEEN Normal [facility] Comment on above: Order Comment: CLEAN CATCH Performed By: #### M 100.678, L400.0001 #### [facility] [address] [place], [address] RBC 0 SEEN Normal 0-[address] [facility] Comment on above: Order Comment: CLEAN CATCH Performed By: #### M 100.678, L400.0001 #### [facility] [address] [place], [address] WBC 0 SEEN Normal 0-[address] [facility] Comment on above: Order Comment: CLEAN CATCH Performed By: #### M 100.678, L400.0001 #### [facility] [address] [place], [place], [address] CBC W Auto Differential pane l (Bld)on 01-05-2025 Basophils (Bld) [#/Vol] 0.06 10*3/uL Normal <0.11 [facility] Comment on above: Order Comment: Speci men Type: BLOOD SPECIMENOrdering Facility: [facility] Address: [address] [place] [address] Performed By: #### 5 7021-8 ####[facility] CENTERLIA [id number] [place] [address] [place] Basophils/100 WBC (Bld) 1.1 % Normal [facility] Comment on above: Order Comment: Speci men Type: BLOOD SPECIMENOrdering Facility: [facility] Address: [address] [place] [address] Performed By: #### 5 7021-8 ####[facility] CENTERLIA [id number] [place] [address] [place] Differential cell count method Nom (Bld) Auto Normal [facility] Comment on above: Order Comment: Speci men Type: BLOOD SPECIMENOrdering Facility: [facility] Address: [address] [place] [address] Performed By: #### 5 7021-8 ####[facility] MILLWNCLIA [id number] [place] [address] [place] Eosinophils (Bld) [#/Vol] 1.26 10*3/uL High <0.46 [facility] Comment on above: Order Comment: Speci men Type: BLOOD SPECIMENOrdering Facility: [facility] Address: [address] [place] [address] Performed By: #### 5 7021-8 ####[facility] [id number] [place] [address] [place] Eosinophils/100 WBC (Bld) 22.6 % Normal [facility] Comment on above: Order Comment: Speci men Type: BLOOD SPECIMENOrdering Facility: [facility] Address: [address] [place] [address] Performed By: #### 5 7021-8 ####[facility]ENTERNCELICIA [id number] [place] [address] [place] Erythrocyte distribution width (RBC) [Ratio] 15.4 % High 11.5-15.0 [facility] Comment on above: Order Comment: Speci men Type: BLOOD SPECIMENOrdering Facility: [facility] Address: [address] [place] [address] Performed By: #### 5 7021-8 ####[facility]NC[facility] [id number] [place] [address] [place] Hematocrit (Bld) [Volume fraction] 31.7 % Low 36.0-46.0 [facility] Comment on above: Order Comment: Speci men Type: BLOOD SPECIMENOrdering Facility: [facility] Address: [address] [place] [address] Performed By: #### 5 7021-8 ####[facility]ENTERNCLIA [id number] [place] [address] [place] Hemoglobin (Bld) [Mass/Vol] 10.8 g/dL Low 11.5-15.5 [facility] Comment on above: Order Comment: Speci men Type: BLOOD SPECIMENOrdering Facility: [facility] Address: [address] [place] [address] Performed By: #### 5 7021-8 ####[facility]ENTERNCLI [id number] [place] [address] [place] Immature granulocytes (Bld) [#/Vol] 0.03 10*3/uL Normal <0.10 [facility] Comment on above: Order Comment: Speci men Type: BLOOD SPECIMENOrdering Facility: [facility] Address: [address] [place] [address] Performed By: #### 5 7021-8 ####[facility] OCALARICHELLE [id number] [place] [address] [place] Immature granulocytes/100 WBC (Bld) 0.5 % Normal [facility] Comment on above: Order Comment: Speci men Type: BLOOD SPECIMENOrdering Facility: [facility] Address: [address] [place] [address] Performed By: #### 5 7021-8 ####[facility] [id number] [place] [address] [place] Lymphocytes (Bld) [#/Vol] 0.85 10*3/uL Low 1.00-4.00 [facility] Comment on above: Order Comment: Speci men Type: BLOOD SPECIMENOrdering Facility: [facility] Address: [address] [place] [address] Performed By: #### 5 7021-8 ####[facility] [id number] [place] [address] [place] Lymphocytes/100 WBC (Bld) 15.2 % Normal [facility] Comment on above: Order Comment: Speci men Type: BLOOD SPECIMENOrdering Facility: [facility] Address: [address] [place] [address] Performed By: #### 5 7021-8 ####[facility] [id number] [place] [address] [place] MCH (RBC) [Entitic mass] 31.2 pg Normal 26.0-34.0 [facility] Comment on above: Order Comment: Speci men Type: BLOOD SPECIMENOrdering Facility: [facility] Address: [address] [place] [address] Performed By: #### 5 7021-8 ####[facility] OCALAWNCL[facility] [id number] [place] [address] [place] MCHC (RBC) [Mass/Vol] 34.1 g/dL Normal 30.5-36.0 [facility] Comment on above: Order Comment: Speci men Type: BLOOD SPECIMENOrdering Facility: [facility] Address: [address] [place] [address] Performed By: #### 5 7021-8 ####[facility]ENTERNCLIA [id number] [place] [address] [place] MCV (RBC) [Entitic vol] 91.6 fL Normal 80.0-100.0 [facility] Comment on above: Order Comment: Speci men Type: BLOOD SPECIMENOrdering Facility: [facility] Address: [address] [place] [address] Performed By: #### 5 7021-8 ####[facility] CENTERLIA [id number] [place] [address] [place] Monocytes (Bld) [#/Vol] 0.43 10*3/uL Normal <0.87 [facility] Comment on above: Order Comment: Speci men Type: BLOOD SPECIMENOrdering Facility: [facility] Address: [address] [place] [address] Performed By: #### 5 7021-8 ####[facility]ENTERLIA [id number] [address] [place] Monocytes/100 WBC (Bld) 7.7 % Normal [facility] Comment on above: Order Comment: Speci men Type: BLOOD SPECIMENOrdering Facility: [facility] Address: [address] [place] [address] Performed By: #### 5 7021-8 ####[facility]ENTERNCLIA [id number] [place] [address] [place] Neutrophils (Bld) [#/Vol] 2.95 10*3/uL Normal 1.45-7.50 [facility] Comment on above: Order Comment: Speci men Type: BLOOD SPECIMENOrdering Facility: [facility] Address: [address] [place] [address] Performed By: #### 5 7021-8 ####[facility] [id number] [place] [address] [place] Neutrophils/100 WBC (Bld) 52.9 % Normal [facility] Comment on above: Order Comment: Speci men Type: BLOOD SPECIMENOrdering Facility: [facility] Address: [address] [place] [address] Performed By: #### 5 7021-8 ####[facility] [id number] [place] [address] [place] Nucleated RBC (Bld) [#/Vol] 10*3/uL Normal <0.01 [facility] Comment on above: Order Comment: Speci men Type: BLOOD SPECIMENOrdering Facility: [facility] Address: [address] [place] [address] Performed By: #### 5 7021-8 ####[facility] [id number] [place] [address] [place] Nucleated RBC/100 WBC (Bld) [Ratio] 0.0 /100 WBC Normal [facility] Comment on above: Order Comment: Speci men Type: BLOOD SPECIMENOrdering Facility: [facility] Address: [address] [place] [address] Performed By: #### 5 7021-8 ####[facility] [id number] [place] [address] [place] Platelet mean volume (Bld) [Entitic vol] 9.2 fL Normal 9.0-12.7 [facility] Comment on above: Order Comment: Speci men Type: BLOOD SPECIMENOrdering Facility: [facility] Address: [address] [place] [address] Performed By: #### 5 7021-8 ####[facility] VUNCLIA [id number] [place] [address] [place] Platelets (Bld) [#/Vol] 334 10*3/uL Normal 150-400 [facility] Comment on above: Order Comment: Speci men Type: BLOOD SPECIMENOrdering Facility: [facility] Address: [address] [place] [address] Performed By: #### 5 7021-8 ####[facility]ENTERNCLIA [id number] [place] [address] [place] RBC (Bld) [#/Vol] 3.46 10*6/uL Low 3.90-5.20 [facility] Comment on above: Order Comment: Speci men Type: BLOOD SPECIMENOrdering Facility: [facility] Address: [address] [place] [address] Performed By: #### 5 7021-8 ####[facility]ENTERNCLIA [id number] [place] [address] [place] WBC (Bld) [#/Vol] 5.58 10*3/uL Normal 3.70-11.00 [facility] Comment on above: Order Comment: Speci men Type: BLOOD SPECIMENOrdering Facility: [facility] Address: [address] [place] [address] Performed By: #### 5 7021-8 ####[facility]ENTERNCLIA [id number] [place] [address] [place] Comprehensive metabolic 2000 panelon 01-05-2025 Albumin [Mass/Vol] 4.5 g/dL Normal 3.9-4.9 [facility] Comment on above: Order Comment: Speci men Type: BLOOD SPECIMENOrdering Facility: [facility] Address: [address] [place] [address] Performed By: #### 2 4323-8 ####[facility] MILLTOWNCLIA [id number] [place] [address] [place] ALP [Catalytic activity/Vol] 107 U/L Normal 34-123 [facility] Comment on above: Order Comment: Speci men Type: BLOOD SPECIMENOrdering Facility: [facility] Address: [address] [place] [address] Performed By: #### 2 4323-8 ####[facility] MILLWNCLIA [id number] [place] [address] [place] ALT [Catalytic activity/Vol] 11 U/L Normal 7-38 [facility] Comment on above: Order Comment: Speci men Type: BLOOD SPECIMENOrdering Facility: [facility] Address: [address] [place] [address] Performed By: #### 2 4323-8 ####[facility]ENTERNCLIA [id number] [place] [address] [place] Anion gap [Moles/Vol] 12 mmol/L Normal 8-15 [facility] Comment on above: Order Comment: Speci men Type: BLOOD SPECIMENOrdering Facility: [facility] Address: [address] [place] [address] Performed By: #### 2 4323-8 ####[facility] MILLTOWNCLIA [id number] [place] [address] [place] AST [Catalytic activity/Vol] 16 U/L Normal 13-35 [facility] Comment on above: Order Comment: Speci men Type: BLOOD SPECIMENOrdering Facility: [facility] Address: [address] [place] [address] Performed By: #### 2 4323-8 ####[facility] MILLTOWNCLIA [id number] [place] [address] [place] Bilirubin [Mass/Vol] 0.2 mg/dL Normal 0.2-1.3 [facility] Comment on above: Order Comment: Speci men Type: BLOOD SPECIMENOrdering Facility: [facility] Address: [address] [place] [address] Performed By: #### 2 4323-8 ####[facility] [place] MILLTOWNCLIA [id number] [place] [address] [place] Calcium [Mass/Vol] 9.7 mg/dL Normal 8.5-10.2 [facility] Comment on above: Order Comment: Speci men Type: BLOOD SPECIMENOrdering Facility: [facility] Address: [address] [place] [address] Performed By: #### 2 4323-8 ####[facility] CENTERTEMITOPELIA [id number] [place] [address] [place] Chloride [Moles/Vol] 98 mmol/L Normal 98-107 [facility] Comment on above: Order Comment: Speci men Type: BLOOD SPECIMENOrdering Facility: [facility] Address: [address] [place] [address] Performed By: #### 2 4323-8 ####[facility]IN[facility] HOSPITALWNCLIA [id number] [place] [address] [place] CO2 [Moles/Vol] 26 mmol/L Normal 22-30 [facility] Comment on above: Order Comment: Speci men Type: BLOOD SPECIMENOrdering Facility: [facility] Address: [address] [place] [address] Performed By: #### 2 4323-8 ####[facility] [place] MILLWNCLIA [id number] [place] [address] [place] Creatinine [Mass/Vol] 0.65 mg/dL Normal 0.58-0.96 [facility] Comment on above: Order Comment: Speci men Type: BLOOD SPECIMENOrdering Facility: [facility] Address: [address] [place] [address] Performed By: #### 2 4323-8 ####[facility] [id number] [place] [address] [place] eGFRcr SerPlBld CKD-EPI 2020 98 mL/min/1.73m??? Normal >=60 [facility] Comment on above: Order Comment: [place] villarreal Type: BLOOD SPECIMENOrdering Facility: [facility] Address: [address] [place] [address] Result Comment: Alayna mated Glomerular Filtration Rate (eGFR) is calculated using the 2020 CKD-EPI creatinine equation. This equation utilizes serum creatinine, sex, and age as parameters. The creatinine assay has traceable calibration to isotope dilution-mass spectrometry. Refer to KDIGO guidelines for clinical interpretation. In patients with unstable renal function, e.g. those with acute kidney injury, the eGFR may not accurately reflect actual GFR. Performed By: #### 2 4323-8 ####[facility] [id number] [place] [address] [place] Glucose [Mass/Vol] 95 mg/dL Normal 74-99 [facility] Comment on above: Order Comment: [place] cherelle Type: BLOOD SPECIMENOrdering Facility: [facility] Address: [address] [place] [address] Result Comment: The Stateless Diabetes Association (ADA) provides guidance for cutoff values for fasting glucose and random glucose. The ADA defines fasting as no caloric intake for at least 8 hours. Fasting plasma glucose results between 100 to 125 mg/dL indicate increased risk for diabetes (prediabetes).Fasting plasma glucose results greater than or equal to 126 mg/dL meet the criteria for diagnosis of diabetes. In the absence of unequivocal hyperglycemia, results should be confirmed by repeat testing. In a patient with classic symptoms of hyperglycemia or hyperglycemic crisis, random plasma glucose results greater than or equal to 200 mg/dL meet the criteria for diagnosis of diabetes.Reference: Standards of Medical Care in Diabetes 2016, Stateless Diabetes Association. Diabetes Care. 2016.39(Suppl 1). Performed By: #### 2 4323-8 ####[facility] MILLTOWNCLIA [id number] [place] [address] [place] Potassium [Moles/Vol] 3.6 mmol/L Low 3.7-5.1 [facility] Comment on above: Order Comment: Speci men Type: BLOOD SPECIMENOrdering Facility: [facility] Address: [address] [place] [address] Performed By: #### 2 4323-8 ####[facility]AWNCL[facility] [id number] [place] [address] [place] Protein [Mass/Vol] 6.8 g/dL Normal 6.3-8.0 [facility] Comment on above: Order Comment: Speci men Type: BLOOD SPECIMENOrdering Facility: [facility] Address: [address] [place] [address] Performed By: #### 2 4323-8 ####[facility]ENTERTEMITOPELIA [id number] [place] [address] [place] Sodium [Moles/Vol] 136 mmol/L Normal 136-144 [facility] Comment on above: Order Comment: Speci men Type: BLOOD SPECIMENOrdering Facility: [facility] Address: [address] [place] [address] Performed By: #### 2 4323-8 ####[facility] MILLTOWNCLIA [id number] [place] [address] [place] Urea nitrogen [Mass/Vol] 13 mg/dL Normal 7-21 [facility] Comment on above: Order Comment: Speci men Type: BLOOD SPECIMENOrdering Facility: [facility] Address: [address] [place] [address] Performed By: #### 2 4323-8 ####[facility] OCALAWNCL[facility] [id number] [place] [address] [place] CNOVon 12-31-2024 CNOV Normal [facility] CBC W Auto Differential pane l (Bld)on 12-28-2024 Basophils (Bld) [#/Vol] 0.09 10*3/uL Normal <0.11 [facility] Comment on above: Order Comment: Speci men Type: BLOOD SPECIMENOrdering Facility: [facility] Address: [address] [place] [address] Performed By: #### 5 7021-8 ####[facility] OCALAWNVLIA [id number] [place] [address] [place] Basophils/100 WBC (Bld) 0.6 % Normal [facility] Comment on above: Order Comment: Speci men Type: BLOOD SPECIMENOrdering Facility: [facility] Address: [address] [place] [address] Performed By: #### 5 7021-8 ####[facility] MED[facility] CENTERLIA [id number] [place] [address] [place] Differential cell count method Nom (Bld) Auto Normal [facility] Comment on above: Order Comment: Speci men Type: BLOOD SPECIMENOrdering Facility: [facility] Address: [address] [place] [address] Performed By: #### 5 7021-8 ####[facility] MED[facility] CENTERLIA [id number] [place] [address] [place] Eosinophils (Bld) [#/Vol] 1.07 10*3/uL High <0.46 [facility] Comment on above: Order Comment: Speci men Type: BLOOD SPECIMENOrdering Facility: [facility] Address: [address] [place] [address] Performed By: #### 5 7021-8 ####[facility] MED[facility] CENTERLIA [id number] [place] [address] [place] Eosinophils/100 WBC (Bld) 7.6 % Normal [facility] Comment on above: Order Comment: Speci men Type: BLOOD SPECIMENOrdering Facility: [facility] Address: [address] [place] [address] Performed By: #### 5 7021-8 ####[facility]ENTERNCBEAV[facility] [id number] [place] [address] [place] Erythrocyte distribution width (RBC) [Ratio] 16.3 % High 11.5-15.0 [facility] Comment on above: Order Comment: Speci men Type: BLOOD SPECIMENOrdering Facility: [facility] Address: [address] [place] [address] Performed By: #### 5 7021-8 ####[facility] CENTERNCLI [id number] [place] [address] [place] Hematocrit (Bld) [Volume fraction] 31.2 % Low 36.0-46.0 [facility] Comment on above: Order Comment: Speci men Type: BLOOD SPECIMENOrdering Facility: [facility] Address: [address] [place] [address] Performed By: #### 5 7021-8 ####[facility] CENTERNCA [id number] [place] [address] [place] Hemoglobin (Bld) [Mass/Vol] 10.7 g/dL Low 11.5-15.5 [facility] Comment on above: Order Comment: Speci men Type: BLOOD SPECIMENOrdering Facility: [facility] Address: [address] [place] [address] Performed By: #### 5 7021-8 ####[facility] CENTERNCA [id number] [place] [address] [place] Immature granulocytes (Bld) [#/Vol] 0.08 10*3/uL Normal <0.10 [facility] Comment on above: Order Comment: Speci men Type: BLOOD SPECIMENOrdering Facility: [facility] Address: [address] [place] [address] Performed By: #### 5 7021-8 ####[facility] MED[facility] CENTERLIA [id number] [place] [address] [place] [facility] Immature granulocytes/100 WBC (Bld) 0.6 % Normal [facility] Comment on above: Order Comment: Speci men Type: BLOOD SPECIMENOrdering Facility: [facility] Address: [address] [place] [address] Performed By: #### 5 7021-8 ####[facility] [id number] [place] [address] [place] Lymphocytes (Bld) [#/Vol] 0.99 10*3/uL Low 1.00-4.00 [facility] Comment on above: Order Comment: Speci men Type: BLOOD SPECIMENOrdering Facility: [facility] Address: [address] [place] [address] Performed By: #### 5 7021-8 ####[facility] [id number] [place] [address] [place] Lymphocytes/100 WBC (Bld) 7.0 % Normal [facility] Comment on above: Order Comment: Speci men Type: BLOOD SPECIMENOrdering Facility: [facility] Address: [address] [place] [address] Performed By: #### 5 7021-8 ####[facility] MED[facility] CENTERLI [id number] [place] [address] [place] MCH (RBC) [Entitic mass] 31.5 pg Normal 26.0-34.0 [facility] Comment on above: Order Comment: Speci men Type: BLOOD SPECIMENOrdering Facility: [facility] Address: [address] [place] [address] Performed By: #### 5 7021-8 ####[facility] [id number] [place] [address] [place] MCHC (RBC) [Mass/Vol] 34.3 g/dL Normal 30.5-36.0 [facility] Comment on above: Order Comment: Speci men Type: BLOOD SPECIMENOrdering Facility: [facility] Address: [address] [place] [address] Performed By: #### 5 7021-8 ####[facility] OMARLOS ANGELESNANO [id number] [place] [address] [place] MCV (RBC) [Entitic vol] 91.8 fL Normal 80.0-100.0 [facility] Comment on above: Order Comment: Speci men Type: BLOOD SPECIMENOrdering Facility: [facility] Address: [address] [place] [address] Performed By: #### 5 7021-8 ####[facility] CENTERNANO [id number] [place] [address] [place] Monocytes (Bld) [#/Vol] 0.63 10*3/uL Normal <0.87 [facility] Comment on above: Order Comment: Speci men Type: BLOOD SPECIMENOrdering Facility: [facility] Address: [address] [place] [address] Performed By: #### 5 7021-8 ####[facility] CENTERNANO [id number] [place] [address] [place] Monocytes/100 WBC (Bld) 4.4 % Normal [facility] Comment on above: Order Comment: Speci men Type: BLOOD SPECIMENOrdering Facility: [facility] Address: [address] [place] [address] Performed By: #### 5 7021-8 ####[facility] MED[facility] CENTERLIA [id number] [place] [address] [place] Neutrophils (Bld) [#/Vol] 11.31 10*3/uL High 1.45-7.50 [facility] Comment on above: Order Comment: Speci men Type: BLOOD SPECIMENOrdering Facility: [facility] Address: [address] [place] [address] Performed By: #### 5 7021-8 ####[facility] [id number] [place] [address] [place] Neutrophils/100 WBC (Bld) 79.8 % Normal [facility] Comment on above: Order Comment: Speci men Type: BLOOD SPECIMENOrdering Facility: [facility] Address: [address] [place] [address] Performed By: #### 5 7021-8 ####[facility] [id number] [place] [address] [place] Nucleated RBC (Bld) [#/Vol] 10*3/uL Normal <0.01 [facility] Comment on above: Order Comment: Speci men Type: BLOOD SPECIMENOrdering Facility: [facility] Address: [address] [place] [address] Performed By: #### 5 7021-8 ####[facility] [id number] [place] [address] [place] Nucleated RBC/100 WBC (Bld) [Ratio] 0.0 /100 WBC Normal [facility] Comment on above: Order Comment: Speci men Type: BLOOD SPECIMENOrdering Facility: [facility] Address: [address] [place] [address] Performed By: #### 5 7021-8 ####[facility] [id number] [place] [address] [place] Platelet mean volume (Bld) [Entitic vol] 8.7 fL Low 9.0-12.7 [facility] Comment on above: Order Comment: Speci men Type: BLOOD SPECIMENOrdering Facility: [facility] Address: [address] [id number] Performed By: #### 5 7021-8 ####[facility] VUNCELICIAA [id number] [place] [address] [place] Platelets (Bld) [#/Vol] 257 10*3/uL Normal 150-400 [facility] Comment on above: Order Comment: Speci men Type: BLOOD SPECIMENOrdering Facility: [facility] Address: [address] [place], [place] [address] Performed By: #### 5 7021-8 ####[facility] OMARLOS ANGELESNCLIA [id number] [place] [address] [place] RBC (Bld) [#/Vol] 3.40 10*6/uL Low 3.90-5.20 [facility] Comment on above: Order Comment: Speci men Type: BLOOD SPECIMENOrdering Facility: [facility] Address: [address] [place] [address] Performed By: #### 5 7021-8 ####[facility] CENTERNCA [id number] [place] [address] [place] WBC (Bld) [#/Vol] 14.17 10*3/uL High 3.70-11.00 [facility] Comment on above: Order Comment: Speci men Type: BLOOD SPECIMENOrdering Facility: [facility] Address: [address] [place], [place] [address] Performed By: #### 5 7021-8 ####[facility]ENTERNCLIA [id number] [place] [address] [place] CNOVSPon 12-28-2024 CNOVSP Normal [facility] CNPNon 12-28-2024 CNPN Normal [facility] Comprehensive metabolic 2000 panelon 12-28-2024 Albumin [Mass/Vol] 4.3 g/dL Normal 3.9-4.9 [facility] Comment on above: Order Comment: Speci men Type: BLOOD SPECIMENOrdering Facility: [facility] Address: [address] [place] [address] Performed By: #### 2 4323-8 ####[facility] MILLTOWNCLIA [id number] [place] [address] [place] ALP [Catalytic activity/Vol] 141 U/L High 34-123 [facility] Comment on above: Order Comment: Speci men Type: BLOOD SPECIMENOrdering Facility: [facility] Address: [address] [place] [address] Performed By: #### 2 4323-8 ####[facility] MILLTOWNCLIA [id number] [place] [address] [place] ALT [Catalytic activity/Vol] 8 U/L Normal 7-38 [facility] Comment on above: Order Comment: Speci men Type: BLOOD SPECIMENOrdering Facility: [facility] Address: [address] [place] [address] Performed By: #### 2 4323-8 ####[facility] MILLTOWNCLIA [id number] [place] [address] [place] Anion gap [Moles/Vol] 11 mmol/L Normal 8-15 [facility] Comment on above: Order Comment: Speci men Type: BLOOD SPECIMENOrdering Facility: [facility] Address: [address] [place] [address] Performed By: #### 2 4323-8 ####[facility] MILLTOWNCLIA [id number] [place] [address] [place] AST [Catalytic activity/Vol] 14 U/L Normal 13-35 [facility] Comment on above: Order Comment: Speci men Type: BLOOD SPECIMENOrdering Facility: [facility] Address: [address] [place] [address] Performed By: #### 2 4323-8 ####[facility] GALINA MILLTOWNCLIA [id number] [place] [address] [place] Bilirubin [Mass/Vol] 0.2 mg/dL Normal 0.2-1.3 [facility] Comment on above: Order Comment: Speci men Type: BLOOD SPECIMENOrdering Facility: [facility] Address: [address] [place] [address] Performed By: #### 2 4323-8 ####[facility] MILLTOWNCLIA [id number] [place] [address] [place] Calcium [Mass/Vol] 9.2 mg/dL Normal 8.5-10.2 [facility] Comment on above: Order Comment: Speci men Type: BLOOD SPECIMENOrdering Facility: [facility] Address: [address] [place] [address] Performed By: #### 2 4323-8 ####[facility] OC[facility]AWNCL[facility] [id number] [place] [address] [place] Chloride [Moles/Vol] 98 mmol/L Normal 98-107 [facility] Comment on above: Order Comment: Speci men Type: BLOOD SPECIMENOrdering Facility: [facility] Address: [address] [place] [address] Performed By: #### 2 4323-8 ####[facility] MILLTOWNCLIA [id number] [place] [address] [place] CO2 [Moles/Vol] 25 mmol/L Normal 22-30 [facility] Comment on above: Order Comment: Speci men Type: BLOOD SPECIMENOrdering Facility: [facility] Address: [address] [place] [address] Performed By: #### 2 4323-8 ####[facility] MILLTOWNCLIA [id number] [place] [address] [place] Creatinine [Mass/Vol] 0.76 mg/dL Normal 0.58-0.96 [facility] Comment on above: Order Comment: [place] villarreal Type: BLOOD SPECIMENOrdering Facility: [facility] Address: [address] [place] [address] Performed By: #### 2 4323-8 ####[facility] [id number] [place] [address] [place] eGFRcr SerPlBld CKD-EPI 2020 87 mL/min/1.73m??? Normal >=60 [facility] Comment on above: Order Comment: [place] villarreal Type: BLOOD SPECIMENOrdering Facility: [facility] Address: [address] [place] [address] Result Comment: Alayna mated Glomerular Filtration Rate (eGFR) is calculated using the 2020 CKD-EPI creatinine equation. This equation utilizes serum creatinine, sex, and age as parameters. The creatinine assay has traceable calibration to isotope dilution-mass spectrometry. Refer to KDIGO guidelines for clinical interpretation. In patients with unstable renal function, e.g. those with acute kidney injury, the eGFR may not accurately reflect actual GFR. Performed By: #### 2 4323-8 ####[facility] [id number] [place] [address] [place] Glucose [Mass/Vol] 88 mg/dL Normal 74-99 [facility] Comment on above: Order Comment: [place] villarreal Type: BLOOD SPECIMENOrdering Facility: [facility] Address: [address] [place] [address] Result Comment: The Stateless Diabetes Association (ADA) provides guidance for cutoff values for fasting glucose and random glucose. The ADA defines fasting as no caloric intake for at least 8 hours. Fasting plasma glucose results between 100 to 125 mg/dL indicate increased risk for diabetes (prediabetes).Fasting plasma glucose results greater than or equal to 126 mg/dL meet the criteria for diagnosis of diabetes. In the absence of unequivocal hyperglycemia, results should be confirmed by repeat testing. In a patient with classic symptoms of hyperglycemia or hyperglycemic crisis, random plasma glucose results greater than or equal to 200 mg/dL meet the criteria for diagnosis of diabetes.Reference: Standards of Medical Care in Diabetes 2016, Stateless Diabetes Association. Diabetes Care. 2016.39(Suppl 1). Performed By: #### 2 4323-8 ####[facility] MILLTOWNCLIA [id number] [place] [address] [place] Potassium [Moles/Vol] 4.0 mmol/L Normal 3.7-5.1 [facility] Comment on above: Order Comment: Speci men Type: BLOOD SPECIMENOrdering Facility: [facility] Address: [address] [place] [address] Performed By: #### 2 4323-8 ####[facility] OC[facility]AWNCL[facility] [id number] [place] [address] [place] Protein [Mass/Vol] 6.6 g/dL Normal 6.3-8.0 [facility] Comment on above: Order Comment: Speci men Type: BLOOD SPECIMENOrdering Facility: [facility] Address: [address] [place] [address] Performed By: #### 2 4323-8 ####[facility] CENTERNCLIA [id number] [place] [address] [place] Sodium [Moles/Vol] 134 mmol/L Low 136-144 [facility] Comment on above: Order Comment: Speci men Type: BLOOD SPECIMENOrdering Facility: [facility] Address: [address] [place] [address] Performed By: #### 2 4323-8 ####[facility] MILLWNCLIA [id number] [place] [address] [place] Urea nitrogen [Mass/Vol] 13 mg/dL Normal 7-21 [facility] Comment on above: Order Comment: Speci men Type: BLOOD SPECIMENOrdering Facility: [facility] Address: [address] [place] [address] Performed By: #### 2 4323-8 ####[facility] CENTERNCLIA [id number] [place] [address] [place] CBC W Auto Differential pane l (Bld)on 12-15-2024 Basophils (Bld) [#/Vol] 0.06 10*3/uL Normal <0.11 [facility] Comment on above: Order Comment: Speci men Type: BLOOD SPECIMENOrdering Facility: [facility] Address: [address] [place] [address] Performed By: #### 5 7021-8 ####[facility] OCALAWNCLIA [id number] [place] [address] [place] Basophils/100 WBC (Bld) 1.0 % Normal [facility] Comment on above: Order Comment: Speci men Type: BLOOD SPECIMENOrdering Facility: [facility] Address: [address] [place] [address] Performed By: #### 5 7021-8 ####[facility] CENTERLIA [id number] [place] [address] [place] Differential cell count method Nom (Bld) Auto Normal [facility] Comment on above: Order Comment: Speci men Type: BLOOD SPECIMENOrdering Facility: [facility] Address: [address] [place] [address] Performed By: #### 5 7021-8 ####[facility] CENTERLIA [id number] [place] [address] [place] Eosinophils (Bld) [#/Vol] 0.40 10*3/uL Normal <0.46 [facility] Comment on above: Order Comment: Speci men Type: BLOOD SPECIMENOrdering Facility: [facility] Address: [address] [place] [address] Performed By: #### 5 7021-8 ####[facility] CENTERLIA [id number] [place] [address] [place] Eosinophils/100 WBC (Bld) 6.8 % Normal [facility] Comment on above: Order Comment: Speci men Type: BLOOD SPECIMENOrdering Facility: [facility] Address: [address] [place] [address] Performed By: #### 5 7021-8 ####[facility] VUNCNATALI [id number] [place] [address] [place] Erythrocyte distribution width (RBC) [Ratio] 16.3 % High 11.5-15.0 [facility] Comment on above: Order Comment: Speci men Type: BLOOD SPECIMENOrdering Facility: [facility] Address: [address] [place] [address] Performed By: #### 5 7021-8 ####[facility] OMARLOS ANGELESNCLIA [id number] [place] [address] [place] Hematocrit (Bld) [Volume fraction] 31.7 % Low 36.0-46.0 [facility] Comment on above: Order Comment: Speci men Type: BLOOD SPECIMENOrdering Facility: [facility] Address: [address] [place] [address] Performed By: #### 5 7021-8 ####[facility] OMARLOS ANGELESNCLIA [id number] [place] [address] [place] Hemoglobin (Bld) [Mass/Vol] 10.9 g/dL Low 11.5-15.5 [facility] [facility] Comment on above: Order Comment: Speci men Type: BLOOD SPECIMENOrdering Facility: [facility] Address: [address] [place] [address] Performed By: #### 5 7021-8 ####[facility]ENTERNCLIA [id number] [place] [address] [place] Immature granulocytes (Bld) [#/Vol] 0.03 10*3/uL Normal <0.10 [facility] Comment on above: Order Comment: Speci men Type: BLOOD SPECIMENOrdering Facility: [facility] Address: [address] [place], [place] [address] Performed By: #### 5 7021-8 ####[facility]ENTERNCLIA [id number] [place] [address] [place] [facility] Immature granulocytes/100 WBC (Bld) 0.5 % Normal [facility] Comment on above: Order Comment: Speci men Type: BLOOD SPECIMENOrdering Facility: [facility] Address: [address] [place] [address] Performed By: #### 5 7021-8 ####[facility]ENTERNCLIA [id number] [place] [address] [place] Lymphocytes (Bld) [#/Vol] 0.81 10*3/uL Low 1.00-4.00 [facility] Comment on above: Order Comment: Speci men Type: BLOOD SPECIMENOrdering Facility: [facility] Address: [address] [place] [address] Performed By: #### 5 7021-8 ####[facility] [id number] [place] [address] [place] Lymphocytes/100 WBC (Bld) 13.8 % Normal [facility] Comment on above: Order Comment: Speci men Type: BLOOD SPECIMENOrdering Facility: [facility] Address: [address] [place] [address] Performed By: #### 5 7021-8 ####[facility] [id number] [place] [address] [place] MCH (RBC) [Entitic mass] 31.4 pg Normal 26.0-34.0 [facility] Comment on above: Order Comment: Speci men Type: BLOOD SPECIMENOrdering Facility: [facility] Address: [address] [place] [address] Performed By: #### 5 7021-8 ####[facility]NC[facility] [id number] [place] [address] [place] MCHC (RBC) [Mass/Vol] 34.4 g/dL Normal 30.5-36.0 [facility] Comment on above: Order Comment: Speci men Type: BLOOD SPECIMENOrdering Facility: [facility] Address: [address] [place] [address] Performed By: #### 5 7021-8 ####[facility] OMARLOS ANGELESBLAKEA [id number] [place] [address] [place] MCV (RBC) [Entitic vol] 91.4 fL Normal 80.0-100.0 [facility] Comment on above: Order Comment: Speci men Type: BLOOD SPECIMENOrdering Facility: [facility] Address: [address] [place] [address] Performed By: #### 5 7021-8 ####[facility] CENTERBLAKEA [id number] [place] [address] [place] Monocytes (Bld) [#/Vol] 0.53 10*3/uL Normal <0.87 [facility] Comment on above: Order Comment: Speci men Type: BLOOD SPECIMENOrdering Facility: [facility] Address: [address] [place] [address] Performed By: #### 5 7021-8 ####[facility] CENTERBLAKEA [id number] [place] [address] [place] Monocytes/100 WBC (Bld) 9.0 % Normal [facility] Comment on above: Order Comment: Speci men Type: BLOOD SPECIMENOrdering Facility: [facility] Address: [address] [place] [address] Performed By: #### 5 7021-8 ####[facility]ENTERNCLIA [id number] [place] [address] [place] Neutrophils (Bld) [#/Vol] 4.03 10*3/uL Normal 1.45-7.50 [facility] Comment on above: Order Comment: Speci men Type: BLOOD SPECIMENOrdering Facility: [facility] Address: [address] [place] [address] Performed By: #### 5 7021-8 ####[facility] OMARBRIDGET [id number] [place] [address] [place] Neutrophils/100 WBC (Bld) 68.9 % Normal [facility] Comment on above: Order Comment: Speci men Type: BLOOD SPECIMENOrdering Facility: [facility] Address: [address] [place] [address] Performed By: #### 5 7021-8 ####[facility]NC[facility] [id number] [place] [address] [place] Nucleated RBC (Bld) [#/Vol] 10*3/uL Normal <0.01 [facility] Comment on above: Order Comment: Speci men Type: BLOOD SPECIMENOrdering Facility: [facility] Address: [address] [place] [address] Performed By: #### 5 7021-8 ####[facility]ENTERNCLIA [id number] [place] [address] [place] Nucleated RBC/100 WBC (Bld) [Ratio] 0.0 /100 WBC Normal [facility] Comment on above: Order Comment: Speci men Type: BLOOD SPECIMENOrdering Facility: [facility] Address: [address] [place] [address] Performed By: #### 5 7021-8 ####[facility] [id number] [place] [address] [place] Platelet mean volume (Bld) [Entitic vol] 8.7 fL Low 9.0-12.7 [facility] Comment on above: Order Comment: Speci men Type: BLOOD SPECIMENOrdering Facility: [facility] Address: [address] [place] [address] Performed By: #### 5 7021-8 ####[facility] OMARLOS ANGELESNCELICIAA [id number] [place] [address] [place] Platelets (Bld) [#/Vol] 390 10*3/uL Normal 150-400 [facility] Comment on above: Order Comment: Speci men Type: BLOOD SPECIMENOrdering Facility: [facility] Address: [address] [place] [address] Performed By: #### 5 7021-8 ####[facility]ENTERNCLIA [id number] [place] [address] [place] RBC (Bld) [#/Vol] 3.47 10*6/uL Low 3.90-5.20 [facility] Comment on above: Order Comment: Speci men Type: BLOOD SPECIMENOrdering Facility: [facility] Address: [address] [place] [address] Performed By: #### 5 7021-8 ####[facility] [id number] [place] [address] [place] WBC (Bld) [#/Vol] 5.86 10*3/uL Normal 3.70-11.00 [facility] Comment on above: Order Comment: Speci men Type: BLOOD SPECIMENOrdering Facility: [facility] Address: [address] [place] [address] Performed By: #### 5 7021-8 ####[facility]ENTERNCLIA [id number] [place] [address] [place] CBC W Auto Differential pane l (Bld)on 12-08-2024 Basophils (Bld) [#/Vol] 0.10 10*3/uL Normal <0.11 [facility] Comment on above: Order Comment: Speci men Type: BLOOD SPECIMENOrdering Facility: [facility] Address: [address] [place] [address] Performed By: #### 5 7021-8 ####[facility] OMARWNCLIA [id number] [place] [address] [place] Basophils/100 WBC (Bld) 1.3 % Normal [facility] Comment on above: Order Comment: Speci men Type: BLOOD SPECIMENOrdering Facility: [facility] Address: [address] [place] [address] Performed By: #### 5 7021-8 ####[facility] OMARLOS ANGELESTEMITOPELIA [id number] [place] [address] [place] Differential cell count method Nom (Bld) Auto Normal [facility] Comment on above: Order Comment: Speci men Type: BLOOD SPECIMENOrdering Facility: [facility] Address: [address] [place] [address] Performed By: #### 5 7021-8 ####[facility] CENTERTEMITOPEELICIAA [id number] [place] [address] [place] Eosinophils (Bld) [#/Vol] 0.34 10*3/uL Normal <0.46 [facility] Comment on above: Order Comment: Speci men Type: BLOOD SPECIMENOrdering Facility: [facility] Address: [address] [place] [address] Performed By: #### 5 7021-8 ####[facility] MED[facility] CENTERLIA [id number] [place] [address] [place] Eosinophils/100 WBC (Bld) 4.4 % Normal [facility] Comment on above: Order Comment: Speci men Type: BLOOD SPECIMENOrdering Facility: [facility] Address: [address] [place] [address] Performed By: #### 5 7021-8 ####[facility]ENTERNCLIA [id number] [place] [address] [place] Erythrocyte distribution width (RBC) [Ratio] 17.2 % High 11.5-15.0 [facility] Comment on above: Order Comment: Speci men Type: BLOOD SPECIMENOrdering Facility: [facility] Address: [address] [place] [address] Performed By: #### 5 7021-8 ####[facility]NC[facility] [id number] [place] [address] [place] Hematocrit (Bld) [Volume fraction] 33.9 % Low 36.0-46.0 [facility] Comment on above: Order Comment: Speci men Type: BLOOD SPECIMENOrdering Facility: [facility] Address: [address] [place] [address] Performed By: #### 5 7021-8 ####[facility] [id number] [place] [address] [place] Hemoglobin (Bld) [Mass/Vol] 11.3 g/dL Low 11.5-15.5 [facility] Comment on above: Order Comment: Speci men Type: BLOOD SPECIMENOrdering Facility: [facility] Address: [address] [place] [address] Performed By: #### 5 7021-8 ####[facility] [id number] [place] [address] [place] Immature granulocytes (Bld) [#/Vol] 0.04 10*3/uL Normal <0.10 [facility] Comment on above: Order Comment: Speci men Type: BLOOD SPECIMENOrdering Facility: [facility] Address: [address] [place] [address] Performed By: #### 5 7021-8 ####[facility] [id number] [place] [address] [place] Immature granulocytes/100 WBC (Bld) 0.5 % Normal [facility] Comment on above: Order Comment: Speci men Type: BLOOD SPECIMENOrdering Facility: [facility] Address: [address] [place] [address] Performed By: #### 5 7021-8 ####[facility] MILLWNCLIA [id number] [place] [address] [place] Lymphocytes (Bld) [#/Vol] 0.93 10*3/uL Low 1.00-4.00 [facility] Comment on above: Order Comment: Speci men Type: BLOOD SPECIMENOrdering Facility: [facility] Address: [address] [place] [address] Performed By: #### 5 7021-8 ####[facility] MED[facility] CENTERLIA [id number] [place] [address] [place] Lymphocytes/100 WBC (Bld) 12.0 % Normal [facility] Comment on above: Order Comment: Speci men Type: BLOOD SPECIMENOrdering Facility: [facility] Address: [address] [place] [address] Performed By: #### 5 7021-8 ####[facility]ERNCLIA [id number] [place] [address] [place] MCH (RBC) [Entitic mass] 30.7 pg Normal 26.0-34.0 [facility] Comment on above: Order Comment: Speci men Type: BLOOD SPECIMENOrdering Facility: [facility] Address: [address] [place] [address] Performed By: #### 5 7021-8 ####[facility] MILLTOWNCLIA [id number] [place] [address] [place] MCHC (RBC) [Mass/Vol] 33.3 g/dL Normal 30.5-36.0 [facility] Comment on above: Order Comment: Speci men Type: BLOOD SPECIMENOrdering Facility: [facility] Address: [address] [place] [address] Performed By: #### 5 7021-8 ####[facility]ENTERNCLIA [id number] [place] [address] [place] MCV (RBC) [Entitic vol] 92.1 fL Normal 80.0-100.0 [facility] Comment on above: Order Comment: Speci men Type: BLOOD SPECIMENOrdering Facility: [facility] Address: [address] [place] [address] Performed By: #### 5 7021-8 ####[facility] [id number] [place] [address] [place] Monocytes (Bld) [#/Vol] 0.65 10*3/uL Normal <0.87 [facility] Comment on above: Order Comment: Speci men Type: BLOOD SPECIMENOrdering Facility: [facility] Address: [address] [place] [address] Performed By: #### 5 7021-8 ####[facility] [id number] [place] [address] [place] Monocytes/100 WBC (Bld) 8.4 % Normal [facility] Comment on above: Order Comment: Speci men Type: BLOOD SPECIMENOrdering Facility: [facility] Address: [address] [place] [address] Performed By: #### 5 7021-8 ####[facility] [id number] [place] [address] [place] Neutrophils (Bld) [#/Vol] 5.67 10*3/uL Normal 1.45-7.50 [facility] Comment on above: Order Comment: Speci men Type: BLOOD SPECIMENOrdering Facility: [facility] Address: [address] [place] [address] Performed By: #### 5 7021-8 ####[facility] [id number] [place] [address] [place] Neutrophils/100 WBC (Bld) 73.4 % Normal [facility] Comment on above: Order Comment: Speci men Type: BLOOD SPECIMENOrdering Facility: [facility] Address: [address] [place] [address] Performed By: #### 5 7021-8 ####[facility] [id number] [place] [address] [place] Nucleated RBC (Bld) [#/Vol] 10*3/uL Normal <0.01 [facility] Comment on above: Order Comment: Speci men Type: BLOOD SPECIMENOrdering Facility: [facility] Address: [address] [place] [address] Performed By: #### 5 7021-8 ####[facility] [id number] [place] [address] [place] Nucleated RBC/100 WBC (Bld) [Ratio] 0.0 /100 WBC Normal [facility] Comment on above: Order Comment: Speci men Type: BLOOD SPECIMENOrdering Facility: [facility] Address: [address] [place] [address] Performed By: #### 5 7021-8 ####[facility] [id number] [place] [address] [place] Platelet mean volume (Bld) [Entitic vol] 8.6 fL Low 9.0-12.7 [facility] Comment on above: Order Comment: Speci men Type: BLOOD SPECIMENOrdering Facility: [facility] Address: [address] [place] [address] Performed By: #### 5 7021-8 ####[facility] [id number] [place] [address] [place] Platelets (Bld) [#/Vol] 224 10*3/uL Normal 150-400 [facility] Comment on above: Order Comment: Speci men Type: BLOOD SPECIMENOrdering Facility: [facility] Address: [address] [place] [address] Performed By: #### 5 7021-8 ####[facility] JERO [id number] [place] [address] [place] RBC (Bld) [#/Vol] 3.68 10*6/uL Low 3.90-5.20 [facility] Comment on above: Order Comment: Speci men Type: BLOOD SPECIMENOrdering Facility: [facility] Address: [address] [place] [address] Performed By: #### 5 7021-8 ####[facility] OMARBRIDGET [id number] [place] [address] [place] WBC (Bld) [#/Vol] 7.73 10*3/uL Normal 3.70-11.00 [facility] Comment on above: Order Comment: Speci men Type: BLOOD SPECIMENOrdering Facility: [facility] Address: [address] [place] [address] Performed By: #### 5 7021-8 ####[facility] OMARRICHELLEA [id number] [place] [address] [place] CNOVSPon 12-08-2024 CNOVSP Normal [facility] CNPNon 12-08-2024 CNPN Normal [facility] Comprehensive metabolic 2000 panelon 12-08-2024 Albumin [Mass/Vol] 4.2 g/dL Normal 3.9-4.9 [facility] Comment on above: Order Comment: Speci men Type: BLOOD SPECIMENOrdering Facility: [facility] Address: [address] [place], [place] [address] Performed By: #### 2 4323-8 ####[facility] OMARLOS ANGELESBLAKEA [id number] [place] [address] [place] ALP [Catalytic activity/Vol] 134 U/L High 34-123 [facility] Comment on above: Order Comment: Speci men Type: BLOOD SPECIMENOrdering Facility: [facility] Address: [address] [place] [address] Performed By: #### 2 4323-8 ####[facility] GALINA MILLTOWNCLIA [id number] [place] [address] [place] ALT [Catalytic activity/Vol] 11 U/L Normal 7-38 [facility] Comment on above: Order Comment: Speci men Type: BLOOD SPECIMENOrdering Facility: [facility] Address: [address] [place] [address] Performed By: #### 2 4323-8 ####[facility] MILLWNCLIA [id number] [place] [address] [place] Anion gap [Moles/Vol] 10 mmol/L Normal 8-15 [facility] Comment on above: Order Comment: Speci men Type: BLOOD SPECIMENOrdering Facility: [facility] Address: [address] [place] [address] Performed By: #### 2 4323-8 ####[facility] MILLTOWNCLIA [id number] [place] [address] [place] AST [Catalytic activity/Vol] 16 U/L Normal 13-35 [facility] Comment on above: Order Comment: Speci men Type: BLOOD SPECIMENOrdering Facility: [facility] Address: [address] [place] [address] Performed By: #### 2 4323-8 ####[facility] MILLTOWNCLIA [id number] [place] [address] [place] Bilirubin [Mass/Vol] 0.3 mg/dL Normal 0.2-1.3 [facility] Comment on above: Order Comment: Speci men Type: BLOOD SPECIMENOrdering Facility: [facility] Address: [address] [place] [address] Performed By: #### 2 4323-8 ####[facility] MILLTOWNCLIA [id number] [place] [address] [place] Calcium [Mass/Vol] 9.5 mg/dL Normal 8.5-10.2 [facility] Comment on above: Order Comment: Speci men Type: BLOOD SPECIMENOrdering Facility: [facility] Address: [address] [place] [address] Performed By: #### 2 4323-8 ####[facility] OCALAWNVLIA [id number] [place] [address] [place] Chloride [Moles/Vol] 100 mmol/L Normal 98-107 [facility] Comment on above: Order Comment: Speci men Type: BLOOD SPECIMENOrdering Facility: [facility] Address: [address] [place] [address] Performed By: #### 2 4323-8 ####[facility]ERNCLIA [id number] [place] [address] [place] CO2 [Moles/Vol] 28 mmol/L Normal 22-30 [facility] Comment on above: Order Comment: Speci men Type: BLOOD SPECIMENOrdering Facility: [facility] Address: [address] [place] [address] Performed By: #### 2 4323-8 ####[facility]ENTERNCLIA [id number] [place] [address] [place] Creatinine [Mass/Vol] 0.63 mg/dL Normal 0.58-0.96 [facility] Comment on above: Order Comment: Speci men Type: BLOOD SPECIMENOrdering Facility: [facility] Address: [address] [place] [address] Performed By: #### 2 4323-8 ####[facility]ENTERNCLIA [id number] [place] [address] [place] eGFRcr SerPlBld CKD-EPI 2020 99 mL/min/1.73m??? Normal >=60 [facility] Comment on above: Order Comment: [place] villarreal Type: BLOOD SPECIMENOrdering Facility: [facility] Address: [address] [place] [address] Result Comment: Alayna mated Glomerular Filtration Rate (eGFR) is calculated using the 2020 CKD-EPI creatinine equation. This equation utilizes serum creatinine, sex, and age as parameters. The creatinine assay has traceable calibration to isotope dilution-mass spectrometry. Refer to KDIGO guidelines for clinical interpretation. In patients with unstable renal function, e.g. those with acute kidney injury, the eGFR may not accurately reflect actual GFR. Performed By: #### 2 4323-8 ####[facility] [id number] [place] [address] [place] Glucose [Mass/Vol] 83 mg/dL Normal 74-99 [facility] Comment on above: Order Comment: [place] villarreal Type: BLOOD SPECIMENOrdering Facility: [facility] Address: [address] [place] [address] Result Comment: The Stateless Diabetes Association (ADA) provides guidance for cutoff values for fasting glucose and random glucose. The ADA defines fasting as no caloric intake for at least 8 hours. Fasting plasma glucose results between 100 to 125 mg/dL indicate increased risk for diabetes (prediabetes).Fasting plasma glucose results greater than or equal to 126 mg/dL meet the criteria for diagnosis of diabetes. In the absence of unequivocal hyperglycemia, results should be confirmed by repeat testing. In a patient with classic symptoms of hyperglycemia or hyperglycemic crisis, random plasma glucose results greater than or equal to 200 mg/dL meet the criteria for diagnosis of diabetes.Reference: Standards of Medical Care in Diabetes 2016, Stateless Diabetes Association. Diabetes Care. 2016.39(Suppl 1). Performed By: #### 2 4323-8 ####[facility] [id number] [place] [address] [place] Potassium [Moles/Vol] 3.9 mmol/L Normal 3.7-5.1 [facility] Comment on above: Order Comment: [place] villarreal Type: BLOOD SPECIMENOrdering Facility: [facility] Address: [address] [place] [address] Performed By: #### 2 4323-8 ####[facility] OMARPkNCLIA [id number] [place] [address] [place] Protein [Mass/Vol] 6.6 g/dL Normal 6.3-8.0 [facility] Comment on above: Order Comment: Speci men Type: BLOOD SPECIMENOrdering Facility: [facility] Address: [address] [place] [address] Performed By: #### 2 4323-8 ####[facility]ENTERNCLIA [id number] [place] [address] [place] Sodium [Moles/Vol] 138 mmol/L Normal 136-144 [facility] Comment on above: Order Comment: Speci men Type: BLOOD SPECIMENOrdering Facility: [facility] Address: [address] [place] [address] Performed By: #### 2 4323-8 ####[facility]ERNCLIA [id number] [place] [address] [place] Urea nitrogen [Mass/Vol] 12 mg/dL Normal 7-21 [facility] Comment on above: Order Comment: Speci men Type: BLOOD SPECIMENOrdering Facility: [facility] Address: [address] [place] [address] Performed By: #### 2 4323-8 ####[facility]ENTERNCLIA [id number] [place] [address] [place] CNPNon 12-02-2024 CNPN Normal [facility] [facility] CNPNon 11-26-2024 CNPN Normal [facility] Magnetic resonance imaging r eportOrdered By: Ike Garcia on 11-25-2024 Study report [facility] Imaging Services [address] [place] [address] Upper Ext No Joint W/WO Cont MR#: [id number] Acct: [id number] Name: Everette HERBERT Rep #: [id number] : 1960 F 64 From: Percy Garcia MD PCP: Dr. 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 FINDINGS: Diffuse thickening enhancement of the anterior chest wall, more prominent on theleft side. Diffuse thickening enhancement with associated edema of the left pectoralis muscles, findings can be secondary to prior treatment and/or neoplastic infiltration. Heterogeneous, multifocal nodular soft tissue thickening/infiltration surrounding the left brachial plexus just distal to the level of the corresponding left neural foramina encasing the left brachial plexus in the interscalene space, subclavian space and extending to the left axillary fossa suggestive of diffuse neoplastic infiltration. Secondary diffuse thickening, edema and abnormal enhancement of the left brachial plexus. Mildly enlarged left retropectoral/left axillary lymph nodes are noted with the largest measuring 1.2 cm, probably metastatic. Mildly heterogeneous signal intensity of the visualized medial aspects of the clavicles, possibly secondary to prior treatment. MRI/Upper Ext No Joint W/WO Cont IMPRESSION: Diffuse thickening enhancement of the anterior chest wall, more prominent on theleft side. Diffuse thickening enhancement with associated edema of the left pectoralis muscles, findings can be secondary to prior treatment and/or neoplastic infiltration. Heterogeneous, multifocal nodular soft tissue thickening/infiltration surrounding the left brachial plexus just distal to the level of the corresponding left neural foramina encasing the left brachial plexus in the interscalene space, subclavian space and extending to the left axillary fossa suggestive of diffuse neoplastic infiltration. Secondary diffuse thickening, edema and abnormal enhancement of the left brachial plexus. Mildly enlarged left retropectoral/left axillary lymph nodes are noted with the largest measuring 1.2 cm, probably metastatic. Reading [facility] CC: Dr. Hellen Zhu DO; Dr. Hellen Lafleur MD ~ 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: Signed [facility] CBC W Auto Differential pane l (Bld)on 11-24-2024 Basophils (Bld) [#/Vol] 0.08 10*3/uL Normal <0.11 [facility] Comment on above: Order Comment: Speci men Type: BLOOD SPECIMENOrdering Facility: [facility] Address: [address] [place] [address] Performed By: #### 5 7021-8 ####[facility]CL[facility] [id number] [place] [address] [place] Basophils/100 WBC (Bld) 2.1 % Normal [facility] Comment on above: Order Comment: Speci men Type: BLOOD SPECIMENOrdering Facility: [facility] Address: [address] [place] [address] Performed By: #### 5 7021-8 ####[facility] MED[facility] CENTERLIA [id number] [place] [address] [place] Differential cell count method Nom (Bld) Auto Normal [facility] Comment on above: Order Comment: Speci men Type: BLOOD SPECIMENOrdering Facility: [facility] Address: [address] [place] [address] Performed By: #### 5 7021-8 ####[facility] MILLWNCLIA [id number] [place] [address] [place] Eosinophils (Bld) [#/Vol] 0.15 10*3/uL Normal <0.46 [facility] Comment on above: Order Comment: Speci men Type: BLOOD SPECIMENOrdering Facility: [facility] Address: [address] [place] [address] Performed By: #### 5 7021-8 ####[facility] MILLLOS ANGELESNCLIA [id number] [place] [address] [place] Eosinophils/100 WBC (Bld) 4.0 % Normal [facility] Comment on above: Order Comment: Speci men Type: BLOOD SPECIMENOrdering Facility: [facility] Address: [address] [place] [address] Performed By: #### 5 7021-8 ####[facility]ENTERNCA [id number] [place] [address] [place] Erythrocyte distribution width (RBC) [Ratio] 16.1 % High 11.5-15.0 [facility] Comment on above: Order Comment: Speci men Type: BLOOD SPECIMENOrdering Facility: [facility] Address: [address] [place] [address] Performed By: #### 5 7021-8 ####[facility]ENTERNCA [id number] [place] [address] [place] Hematocrit (Bld) [Volume fraction] 31.4 % Low 36.0-46.0 [facility] Comment on above: Order Comment: Speci men Type: BLOOD SPECIMENOrdering Facility: [facility] Address: [address] [place] [address] Performed By: #### 5 7021-8 ####[facility]ENTERNCLIA [id number] [place] [address] [place] Hemoglobin (Bld) [Mass/Vol] 10.3 g/dL Low 11.5-15.5 [facility] Comment on above: Order Comment: Speci men Type: BLOOD SPECIMENOrdering Facility: [facility] Address: [address] [place] [address] Performed By: #### 5 7021-8 ####[facility]ENTERNCLIA [id number] [place] [address] [place] Immature granulocytes (Bld) [#/Vol] 0.09 10*3/uL Normal <0.10 [facility] Comment on above: Order Comment: Speci men Type: BLOOD SPECIMENOrdering Facility: [facility] Address: [address] [place] [address] Performed By: #### 5 7021-8 ####[facility] OMARLOS ANGELESBLAKE [id number] [place] [address] [place] Immature granulocytes/100 WBC (Bld) 2.4 % Normal [facility] Comment on above: Order Comment: Speci men Type: BLOOD SPECIMENOrdering Facility: [facility] Address: [address] [place] [address] Performed By: #### 5 7021-8 ####[facility] ER [id number] [place] [address] [place] Lymphocytes (Bld) [#/Vol] 0.57 10*3/uL Low 1.00-4.00 [facility] Comment on above: Order Comment: Speci men Type: BLOOD SPECIMENOrdering Facility: [facility] Address: [address] [place] [address] Performed By: #### 5 7021-8 ####[facility] ER [id number] [place] [address] [place] Lymphocytes/100 WBC (Bld) 15.1 % Normal [facility] Comment on above: Order Comment: Speci men Type: BLOOD SPECIMENOrdering Facility: [facility] Address: [address] [place] [address] Performed By: #### 5 7021-8 ####[facility] ER [id number] [place] [address] [place] MCH (RBC) [Entitic mass] 30.5 pg Normal 26.0-34.0 [facility] Comment on above: Order Comment: Speci men Type: BLOOD SPECIMENOrdering Facility: [facility] Address: [address] [place] [address] Performed By: #### 5 7021-8 ####[facility]ENTERNCLIA [id number] [place] [address] [place] MCHC (RBC) [Mass/Vol] 32.8 g/dL Normal 30.5-36.0 [facility] Comment on above: Order Comment: Speci men Type: BLOOD SPECIMENOrdering Facility: [facility] Address: [address] [place] [address] Performed By: #### 5 7021-8 ####[facility] MED[facility] CENTERELICIAA [id number] [place] [address] [place] MCV (RBC) [Entitic vol] 92.9 fL Normal 80.0-100.0 [facility] Comment on above: Order Comment: Speci men Type: BLOOD SPECIMENOrdering Facility: [facility] Address: [address] [place] [address] Performed By: #### 5 7021-8 ####[facility] ER [id number] [place] [address] [place] Monocytes (Bld) [#/Vol] 0.44 10*3/uL Normal <0.87 [facility] Comment on above: Order Comment: Speci men Type: BLOOD SPECIMENOrdering Facility: [facility] Address: [address] [place] [address] Performed By: #### 5 7021-8 ####[facility] MED[facility] CENTERLIA [id number] [address] [place] [facility] Monocytes/100 WBC (Bld) 11.7 % Normal [facility] Comment on above: Order Comment: Speci men Type: BLOOD SPECIMENOrdering Facility: [facility] Address: [address] [place] [address] Performed By: #### 5 7021-8 ####[facility]ENTERNCLIA [id number] [place] [address] [place] Neutrophils (Bld) [#/Vol] 2.44 10*3/uL Normal 1.45-7.50 [facility] Comment on above: Order Comment: Speci men Type: BLOOD SPECIMENOrdering Facility: [facility] Address: [address] [place] [address] Performed By: #### 5 7021-8 ####[facility] ERA [id number] [place] [address] [place] Neutrophils/100 WBC (Bld) 64.7 % Normal [facility] Comment on above: Order Comment: Speci men Type: BLOOD SPECIMENOrdering Facility: [facility] Address: [address] [place] [address] Performed By: #### 5 7021-8 ####[facility]ENTERNCBEAV[facility] [id number] [place] [address] [place] Nucleated RBC (Bld) [#/Vol] 10*3/uL Normal <0.01 [facility] Comment on above: Order Comment: Speci men Type: BLOOD SPECIMENOrdering Facility: [facility] Address: [address] [place] [address] Performed By: #### 5 7021-8 ####[facility] [id number] [place] [address] [place] Nucleated RBC/100 WBC (Bld) [Ratio] 0.0 /100 WBC Normal [facility] Comment on above: Order Comment: Speci men Type: BLOOD SPECIMENOrdering Facility: [facility] Address: [address] [place] [address] Performed By: #### 5 7021-8 ####[facility]ENTERNCLIA [id number] [place] [address] [place] Platelet mean volume (Bld) [Entitic vol] 8.6 fL Low 9.0-12.7 [facility] Comment on above: Order Comment: Speci men Type: BLOOD SPECIMENOrdering Facility: [facility] Address: [address] [place] [address] Performed By: #### 5 7021-8 ####[facility] VUNCELICIAA [id number] [place] [address] [place] Platelets (Bld) [#/Vol] 356 10*3/uL Normal 150-400 [facility] Comment on above: Order Comment: Speci men Type: BLOOD SPECIMENOrdering Facility: [facility] Address: [address] [place] [address] Performed By: #### 5 7021-8 ####[facility]ENTERNCLIA [id number] [place] [address] [place] RBC (Bld) [#/Vol] 3.38 10*6/uL Low 3.90-5.20 [facility] Comment on above: Order Comment: Speci men Type: BLOOD SPECIMENOrdering Facility: [facility] Address: [address] [place] [address] Performed By: #### 5 7021-8 ####[facility] ERA [id number] [place] [address] [place] WBC (Bld) [#/Vol] 3.77 10*3/uL Normal 3.70-11.00 [facility] Comment on above: Order Comment: Speci men Type: BLOOD SPECIMENOrdering Facility: [facility] Address: [address] [place] [address] Performed By: #### 5 7021-8 ####[facility]ENTERNCLIA [id number] [place] [address] [place] Cancer Ag15-3 SerPl-aCncon 0 11-24-2024 Cancer Ag 15-3 Qn 48.9 U/mL High <26.0 [facility] Comment on above: Order Comment: Speci men Type: BLOOD SPECIMENOrdering Facility: [facility] Address: [address] [place], [place] [address] Result Comment: The CA 15-3 test methodology used is the Electrochemiluminescence Immunoassay by [employer]. Results obtained with different methods or kits cannot be used interchangeably. Performed By: #### 6 875-9, 3024-7, 3016-3, 2143-6 ####[facility] LABCLIA [id number] [place] [address] [place] Comprehensive metabolic 2000 panelon 11-24-2024 Albumin [Mass/Vol] 4.3 g/dL Normal 3.9-4.9 [facility] Comment on above: Order Comment: Speci men Type: BLOOD SPECIMENOrdering Facility: [facility] Address: [address] [place] [address] Performed By: #### 2 4323-8 ####[facility]ENTERNCBE[facility] [id number] [place] [address] [place] ALP [Catalytic activity/Vol] 102 U/L Normal 34-123 [facility] Comment on above: Order Comment: Speci men Type: BLOOD SPECIMENOrdering Facility: [facility] Address: [address] [place] [address] Performed By: #### 2 4323-8 ####[facility] [id number] [place] [address] [place] ALT [Catalytic activity/Vol] 11 U/L Normal 7-38 [facility] Comment on above: Order Comment: Speci men Type: BLOOD SPECIMENOrdering Facility: [facility] Address: [address] [place] [address] Performed By: #### 2 4323-8 ####[facility]ENTERNCLIA [id number] [place] [address] [place] Anion gap [Moles/Vol] 10 mmol/L Normal 8-15 [facility] Comment on above: Order Comment: Speci men Type: BLOOD SPECIMENOrdering Facility: [facility] Address: [address] [place] [address] Performed By: #### 2 4323-8 ####[facility] MILLTOWNCLIA [id number] [place] [address] [place] AST [Catalytic activity/Vol] 17 U/L Normal 13-35 [facility] Comment on above: Order Comment: Speci men Type: BLOOD SPECIMENOrdering Facility: [facility] Address: [address] [place] [address] Performed By: #### 2 4323-8 ####[facility] MILLTOWNCLIA [id number] [place] [address] [place] Bilirubin [Mass/Vol] 0.2 mg/dL Normal 0.2-1.3 [facility] Comment on above: Order Comment: Speci men Type: BLOOD SPECIMENOrdering Facility: [facility] Address: [address] [place] [address] Performed By: #### 2 4323-8 ####[facility] MILLTOWNCLIA [id number] [place] [address] [place] Calcium [Mass/Vol] 9.3 mg/dL Normal 8.5-10.2 [facility] Comment on above: Order Comment: Speci men Type: BLOOD SPECIMENOrdering Facility: [facility] Address: [address] [place] [address] Performed By: #### 2 4323-8 ####[facility] MILLTOWNCLIA [id number] [place] [address] [place] Chloride [Moles/Vol] 101 mmol/L Normal 98-107 [facility] Comment on above: Order Comment: Speci men Type: BLOOD SPECIMENOrdering Facility: [facility] Address: [address] [place] [address] Performed By: #### 2 4323-8 ####[facility] CENTERTEMITOPELI [id number] [place] [address] [place] CO2 [Moles/Vol] 27 mmol/L Normal 22-30 [facility] Comment on above: Order Comment: Speci men Type: BLOOD SPECIMENOrdering Facility: [facility] Address: [address] [place] [address] Performed By: #### 2 4323-8 ####[facility] [id number] [place] [address] [place] Creatinine [Mass/Vol] 0.68 mg/dL Normal 0.58-0.96 [facility] Comment on above: Order Comment: Speci men Type: BLOOD SPECIMENOrdering Facility: [facility] Address: [address] [place] [address] Performed By: #### 2 4323-8 ####[facility] [id number] [place] [address] [place] eGFRcr SerPlBld CKD-EPI 2020 97 mL/min/1.73m??? Normal >=60 [facility] Comment on above: Order Comment: Speci men Type: BLOOD SPECIMENOrdering Facility: [facility] Address: [address] [place] [address] Result Comment: Alayna mated Glomerular Filtration Rate (eGFR) is calculated using the 2020 CKD-EPI creatinine equation. This equation utilizes serum creatinine, sex, and age as parameters. The creatinine assay has traceable calibration to isotope dilution-mass spectrometry. Refer to KDIGO guidelines for clinical interpretation. In patients with unstable renal function, e.g. those with acute kidney injury, the eGFR may not accurately reflect actual GFR. Performed By: #### 2 4323-8 ####[facility]ENTERNCLIA [id number] [place] [address] [place] Glucose [Mass/Vol] 91 mg/dL Normal 74-99 [facility] Comment on above: Order Comment: Speci men Type: BLOOD SPECIMENOrdering Facility: [facility] Address: [address] [place] [address] Result Comment: The Stateless Diabetes Association (ADA) provides guidance for cutoff values for fasting glucose and random glucose. The ADA defines fasting as no caloric intake for at least 8 hours. Fasting plasma glucose results between 100 to 125 mg/dL indicate increased risk for diabetes (prediabetes).Fasting plasma glucose results greater than or equal to 126 mg/dL meet the criteria for diagnosis of diabetes. In the absence of unequivocal hyperglycemia, results should be confirmed by repeat testing. In a patient with classic symptoms of hyperglycemia or hyperglycemic crisis, random plasma glucose results greater than or equal to 200 mg/dL meet the criteria for diagnosis of diabetes.Reference: Standards of Medical Care in Diabetes 2016, Stateless Diabetes Association. Diabetes Care. 2016.39(Suppl 1). Performed By: #### 2 4323-8 ####[facility] [id number] [place] [address] [place] Potassium [Moles/Vol] 3.8 mmol/L Normal 3.7-5.1 [facility] Comment on above: Order Comment: Speci men Type: BLOOD SPECIMENOrdering Facility: [facility] Address: [address] [place], [place] [address] Performed By: #### 2 4323-8 ####[facility] [id number] [place] [address] [place] Protein [Mass/Vol] 6.4 g/dL Normal 6.3-8.0 [facility] Comment on above: Order Comment: Speci men Type: BLOOD SPECIMENOrdering Facility: [facility] Address: [address] [place] [address] Performed By: #### 2 4323-8 ####[facility] [id number] [place] [address] [place] Sodium [Moles/Vol] 138 mmol/L Normal 136-144 [facility] Comment on above: Order Comment: Speci men Type: BLOOD SPECIMENOrdering Facility: [facility] Address: [address] [place] [address] Performed By: #### 2 4323-8 ####[facility] JERO [id number] [place] [address] [place] Urea nitrogen [Mass/Vol] 12 mg/dL Normal 7-21 [facility] Comment on above: Order Comment: Speci men Type: BLOOD SPECIMENOrdering Facility: [facility] Address: [address] [place] [address] Performed By: #### 2 4323-8 ####[facility] JEROMEA [id number] [place] [address] [place] Cortis SerPl-mCncon 11-25-19 25 Cortisol [Mass/Vol] 11.9 ug/dL Normal 4.8-19.5 [facility] Comment on above: Order Comment: Speci men Type: BLOOD SPECIMENOrdering Facility: [facility] Address: [address] [place] [address] Result Comment: Prov ided reference range is from 6-10 AM sample collection time.Cortisol Reference Range: 6-10 AM = 4.8-19.5 ug/dL, 4-8 PM = 2.5-11.9 ug/dL Performed By: #### 6 875-9, 3024-7, 3016-3, 2142-6 ####[facility] LABCLIA [id number] [place] [address] [place] T4 Free SerPl-mCncon 025 Free T4 [Mass/Vol] 1.1 ng/dL Normal 0.9-1.7 [facility] Comment on above: Order Comment: Speci men Type: BLOOD SPECIMENOrdering Facility: [facility] Address: [address] [place] [address] Performed By: #### 6 875-9, 3024-7, 3016-3, 2142-6 ####[facility] LABCLIA [id number] [place] [id number] [place] TSH SerPl-aCncon 11-24-2024 TSH Qn 1.260 m[IU]/L Normal 0.270-4.20 0 [facility] Comment on above: Order Comment: Speci men Type: BLOOD SPECIMENOrdering Facility: [facility] Address: [address] [place] [address] Performed By: #### 6 875-9, 3024-7, 3016-3, 2143-6 ####[facility] LABCLIA [id number] [place] [id number] [place] CNPNon 11-19-2024 CNPN Normal [facility] Upper Ext No Joint W/WO Cont on 11-19-2024 Upper Ext No Joint W/WO Cont [facility] Services [address] [place] [address] Upper Ext No Joint W/WO Cont MR#: [id number] Acct: [id number] Name: Everette HERBERT Rep #: [id number] : 1960 F 64 From: Ike burroughs MD PCP: Dr. 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 FINDINGS: Diffuse thickening enhancement of the anterior chest wall, more prominent on the left side. Diffuse thickening enhancement with associated edema of the left pectoralis muscles, findings can be secondary to prior treatment and/or neoplastic infiltration. Heterogeneous, multifocal nodular soft tissue thickening/infiltration surrounding the left brachial plexus just distal to the level of the corresponding left neural foramina encasing the left brachial plexus in the interscalene space, subclavian space and extending to the left axillary fossa suggestive of diffuse neoplastic infiltration. Secondary diffuse thickening, edema and abnormal enhancement of the left brachial plexus. Mildly enlarged left retropectoral/left axillary lymph nodes are noted with the largest measuring 1.2 cm, probably metastatic. Mildly heterogeneous signal intensity of the visualized medial aspects of the clavicles, possibly secondary to prior treatment. MRI/Upper Ext No Joint W/WO Cont IMPRESSION: Diffuse thickening enhancement of the anterior chest wall, more prominent on the left side. Diffuse thickening enhancement with associated edema of the left pectoralis muscles, findings can be secondary to prior treatment and/or neoplastic infiltration. Heterogeneous, multifocal nodular soft tissue thickening/infiltration surrounding the left brachial plexus just distal to the level of the corresponding left neural foramina encasing the left brachial plexus in the interscalene space, subclavian space and extending to the left axillary fossa suggestive of diffuse neoplastic infiltration. Secondary diffuse thickening, edema and abnormal enhancement of the left brachial plexus. Mildly enlarged left retropectoral/left axillary lymph nodes are noted with the largest measuring 1.2 cm, probably metastatic. Reading [facility] CC: Dr. Hellen Zhu DO; Dr. 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 CBC W Auto Differential pane l (Bld)on 11-17-2024 Anisocytosis Ql (Bld) Present Normal [facility] Comment on above: Order Comment: Speci men Type: BLOOD SPECIMENOrdering Facility: [facility] Address: [address] [place] [address] Performed By: #### 5 7021-8 ####[facility] [id number] [address] OF [facility] LABORATORYCLIA [id number] [address] [place] Basophils (Bld) [#/Vol] 0.00 10*3/uL Normal <0.11 [facility] Comment on above: Order Comment: Speci men Type: BLOOD SPECIMENOrdering Facility: [facility] Address: [address] [place] [address] Performed By: #### 5 7021-8 ####[facility] MILLTOWNCLIA [id number] [address] LABORATORYCLIA [id number] [place] [address] [place] Basophils/100 WBC (Bld) 0.0 % Normal [facility] Comment on above: Order Comment: Speci men Type: BLOOD SPECIMENOrdering Facility: [facility] Address: [address] [place] [address] Performed By: #### 5 7021-8 ####[facility] OCALAPkNCLIA [id number] [address] LABORATORYCLIA [id number] [place] [address] [place] Dacrocytes LM Ql (Bld) Few Normal [facility] Comment on above: Order Comment: Speci men Type: BLOOD SPECIMENOrdering Facility: [facility] Address: [address] [place] [address] Performed By: #### 5 7021-8 ####[facility] OCALAWTEMITOPELIA [id number] [address] LABORATORYCLIA [id number] [place] [address] [place] Differential cell count method Nom (Bld) Manual Normal [facility] Comment on above: Order Comment: Speci men Type: BLOOD SPECIMENOrdering Facility: [facility] Address: [address] [place] [address] Performed By: #### 5 7021-8 ####[facility] OCALAWNCLIA [id number] [address] LABORATORYCLIA [id number] [place] [address] [place] Eosinophils (Bld) [#/Vol] 0.26 10*3/uL Normal <0.46 [facility] Comment on above: Order Comment: Speci men Type: BLOOD SPECIMENOrdering Facility: [facility] Address: [address] [place] [address] Performed By: #### 5 7021-8 ####[facility] MED[facility] CENTERLIA [id number] [address] LABORATORYCLIA [id number] [place] [address] [place] Eosinophils/100 WBC (Bld) 3.0 % Normal [facility] Comment on above: Order Comment: Speci men Type: BLOOD SPECIMENOrdering Facility: [facility] Address: [address] [place] [address] Performed By: #### 5 7021-8 ####[facility] [id number] [address] LABORATORYIA [id number] [place] [address] [place] Erythrocyte distribution width (RBC) [Ratio] 15.9 % High 11.5-15.0 [facility] Comment on above: Order Comment: Speci men Type: BLOOD SPECIMENOrdering Facility: [facility] Address: [address] [place] [address] Performed By: #### 5 7021-8 ####[facility] [id number] [address] LABORATORYIA [id number] [place] [address] [place] Hematocrit (Bld) [Volume fraction] 31.0 % Low 36.0-46.0 [facility] Comment on above: Order Comment: Speci men Type: BLOOD SPECIMENOrdering Facility: [facility] Address: [address] [place] [address] Performed By: #### 5 7021-8 ####[facility] MILLTOWNCLIA [id number] [address] LABORATORYCLIA [id number] [place] [address] [place] Hemoglobin (Bld) [Mass/Vol] 10.2 g/dL Low 11.5-15.5 [facility] Comment on above: Order Comment: Speci men Type: BLOOD SPECIMENOrdering Facility: [facility] Address: [address] [place] [address] Performed By: #### 5 7021-8 ####[facility]WTEMITOPEL[facility] [id number] [address] LABORATORYCLIA [id number] [place] [address] [place] Lymphocytes (Bld) [#/Vol] 0.70 10*3/uL Low 1.00-4.00 [facility] Comment on above: Order Comment: Speci men Type: BLOOD SPECIMENOrdering Facility: [facility] Address: [address] [place] [address] Performed By: #### 5 7021-8 ####[facility] BOULEVARDDAVIDWNCLIA [id number] [address] LABORATORYCLIA [id number] [place] [address] [place] Lymphocytes/100 WBC (Bld) 8.0 % Normal [facility] Comment on above: Order Comment: Speci men Type: BLOOD SPECIMENOrdering Facility: [facility] Address: [address] [place] [address] Performed By: #### 5 7021-8 ####[facility] BOULEVARDTOWNCLIA [id number] [address] LABORATORYCLIA [id number] [address] MCH (RBC) [Entitic mass] 30.4 pg Normal 26.0-34.0 [facility] Comment on above: Order Comment: Speci men Type: BLOOD SPECIMENOrdering Facility: [facility] Address: [address] [place] [address] Performed By: #### 5 7021-8 ####[facility] BOULEVARDTOWNCLIA [id number] [address] LABORATORYCLIA [id number] [address] MCHC (RBC) [Mass/Vol] 32.9 g/dL Normal 30.5-36.0 [facility] Comment on above: Order Comment: Speci men Type: BLOOD SPECIMENOrdering Facility: [facility] Address: [address] [place] [address] Performed By: #### 5 7021-8 ####[facility]AWNCLIA [id number] [address] LABORATORYCLIA [id number] [address] MCV (RBC) [Entitic vol] 92.3 fL Normal 80.0-100.0 [facility] Comment on above: Order Comment: Speci men Type: BLOOD SPECIMENOrdering Facility: [facility] Address: [address] [place] [address] Performed By: #### 5 7021-8 ####[facility]ALAWNCLIA [id number] [address] LABORATORYCLIA [id number] [address] Monocytes (Bld) [#/Vol] 0.70 10*3/uL Normal <0.87 [facility] Comment on above: Order Comment: Speci men Type: BLOOD SPECIMENOrdering Facility: [facility] Address: [address] [place] [address] Performed By: #### 5 7021-8 ####[facility] MILLTOWNCLIA [id number] [address] LABORATORYCLIA [id number] [place] [address] [place] Monocytes/100 WBC (Bld) 8.0 % Normal [facility] Comment on above: Order Comment: Speci men Type: BLOOD SPECIMENOrdering Facility: [facility] Address: [address] [place] [address] Performed By: #### 5 7021-8 ####[facility] MILLTOWNCLIA [id number] [address] LABORATORYCLIA [id number] [place] [address] [place] Neutrophils (Bld) [#/Vol] 7.04 10*3/uL Normal 1.45-7.50 [facility] Comment on above: Order Comment: Speci men Type: BLOOD SPECIMENOrdering Facility: [facility] Address: [address] [place] [address] Performed By: #### 5 7021-8 ####[facility] OMARTOWNCLIA [id number] [address] LABORATORYCLIA [id number] [place] [address] [place] Neutrophils/100 WBC (Bld) 81.0 % Normal [facility] Comment on above: Order Comment: Speci men Type: BLOOD SPECIMENOrdering Facility: [facility] Address: [address] [place] [address] Performed By: #### 5 7021-8 ####[facility] MILLTOWNCLIA [id number] [address] LABORATORYCLIA [id number] [place] [address] [place] Nucleated RBC (Bld) [#/Vol] 10*3/uL Normal <0.01 [facility] Comment on above: Order Comment: Speci men Type: BLOOD SPECIMENOrdering Facility: [facility] Address: [address] [place] [address] Performed By: #### 5 7021-8 ####[facility] MILLTOWNCLIA [id number] [address] LABORATORYCLIA [id number] [place] [address] [place] Nucleated RBC/100 WBC (Bld) [Ratio] 0.0 /100 WBC Normal [facility] Comment on above: Order Comment: Speci men Type: BLOOD SPECIMENOrdering Facility: [facility] Address: [address] [place] [address] Performed By: #### 5 7021-8 ####[facility]ALAWNCLIA [id number] [address] LABORATORYCLIA [id number] [address] [place] Ovalocytes LM Ql (Bld) Few Normal [facility] Comment on above: Order Comment: Speci men Type: BLOOD SPECIMENOrdering Facility: [facility] Address: [address] [place] [address] Performed By: #### 5 7021-8 ####[facility] OCALAWNCLIA [id number] [address] LABORATORYCLIA [id number] [address] [place] Platelet mean volume (Bld) [Entitic vol] 9.6 fL Normal 9.0-12.7 [facility] Comment on above: Order Comment: Speci men Type: BLOOD SPECIMENOrdering Facility: [facility] Address: [address] [place] [address] Performed By: #### 5 7021-8 ####[facility] VUNCLIA [id number] [address] LABORATORYCLIA [id number] [place] [address] [place] Platelets (Bld) [#/Vol] 383 10*3/uL Normal 150-400 [facility] Comment on above: Order Comment: Speci men Type: BLOOD SPECIMENOrdering Facility: [facility] Address: [address] [place] [address] Result Comment: No c lot detected. Performed By: #### 5 7021-8 ####[facility]ENTERNCA [id number] [address] LABORATORYCLIA [id number] [place] [address] [place] Platelets Estimate (Bld) [#/Vol] Adequate Normal [facility] Comment on above: Order Comment: Speci men Type: BLOOD SPECIMENOrdering Facility: [facility] Address: [address] [place] [address] Performed By: #### 5 7021-8 ####[facility] CENTERLIA [id number] [address] LABORATORYCLIA [id number] [place] [address] [place] RBC (Bld) [#/Vol] 3.36 10*6/uL Low 3.90-5.20 [facility] Comment on above: Order Comment: Speci men Type: BLOOD SPECIMENOrdering Facility: [facility] Address: [address] [place] [address] Performed By: #### 5 7021-8 ####[facility] BOULEVARDTOWNCLIA [id number] [address] LABORATORYCLIA [id number] [place] [address] [place] [facility] RBC FRAGMENTS Few Abnormal None Seen [facility] Comment on above: Order Comment: Speci men Type: BLOOD SPECIMENOrdering Facility: [facility] Address: [address] [place] [address] Performed By: #### 5 7021-8 ####[facility] MILLWNCLIA [id number] [address] LABORATORYIA [id number] [place] [address] [place] RED CELL MORPH Reviewed: see result s of individual morphologies Normal [facility] Comment on above: Order Comment: Speci men Type: BLOOD SPECIMENOrdering Facility: [facility] Address: [address] [place] [address] Performed By: #### 5 7021-8 ####[facility]ENTERNCLIA [id number] [address] LABORATORYCLIA [id number] [place] [address] [place] WBC (Bld) [#/Vol] 8.69 10*3/uL Normal 3.70-11.00 [facility] Comment on above: Order Comment: Speci men Type: BLOOD SPECIMENOrdering Facility: [facility] Address: [address] [place] [address] Performed By: #### 5 7021-8 ####[facility] MILLWNCLIA [id number] [address] LABORATORYCLIA [id number] [place] [address] [place] WBC Left Shift Ql (Bld) Present Normal [facility] Comment on above: Order Comment: Speci men Type: BLOOD SPECIMENOrdering Facility: [facility] Address: [address] [place] [address] Performed By: #### 5 7021-8 ####[facility]ENTERNCLIA [id number] [address] LABORATORYCLIA [id number] [address] Cancer Ag15-3 SerPl-aCncon 0 11-17-2024 Cancer Ag 15-3 Qn 44.3 U/mL High <26.0 [facility] Comment on above: Order Comment: Speci men Type: BLOOD SPECIMENOrdering Facility: [facility] Address: [address] [place] [address] Result Comment: The CA 15-3 test methodology used is the Electrochemiluminescence Immunoassay by [employer]. Results obtained with different methods or kits cannot be used interchangeably. Performed By: #### 6 875-9, 3024-7, 3016-3, 2143-6 ####[facility] LABCLIA [id number] [place] [address] [place] Comprehensive metabolic 2000 panelon 11-17-2024 Albumin [Mass/Vol] 4.2 g/dL Normal 3.9-4.9 [facility] Comment on above: Order Comment: Speci men Type: BLOOD SPECIMENOrdering Facility: [facility] Address: [address] [place] [address] Performed By: #### 2 4323-8 ####[facility]ENTERNCLIA [id number] [place] [address] [place] ALP [Catalytic activity/Vol] 101 U/L Normal 34-123 [facility] Comment on above: Order Comment: Speci men Type: BLOOD SPECIMENOrdering Facility: [facility] Address: [address] [place] [address] Performed By: #### 2 4323-8 ####[facility] MILLTOWNCLIA [id number] [place] [address] [place] ALT [Catalytic activity/Vol] 25 U/L Normal 7-38 [facility] Comment on above: Order Comment: Speci men Type: BLOOD SPECIMENOrdering Facility: [facility] Address: [address] [place] [address] Performed By: #### 2 4323-8 ####[facility] MILLTOWNCLIA [id number] [place] [address] [place] Anion gap [Moles/Vol] 9 mmol/L Normal 8-15 [facility] Comment on above: Order Comment: Speci men Type: BLOOD SPECIMENOrdering Facility: [facility] Address: [address] [place] [address] Performed By: #### 2 4323-8 ####[facility]ENTERNCLIA [id number] [place] [address] [place] AST [Catalytic activity/Vol] 21 U/L Normal 13-35 [facility] Comment on above: Order Comment: Speci men Type: BLOOD SPECIMENOrdering Facility: [facility] Address: [address] [place] [address] Performed By: #### 2 4323-8 ####[facility] MILLWNCLIA [id number] [place] [address] [place] Bilirubin [Mass/Vol] 0.3 mg/dL Normal 0.2-1.3 [facility] Comment on above: Order Comment: Speci men Type: BLOOD SPECIMENOrdering Facility: [facility] Address: [address] [place] [address] Performed By: #### 2 4323-8 ####[facility]AWNCLIA [id number] [place] [address] [place] Calcium [Mass/Vol] 9.3 mg/dL Normal 8.5-10.2 [facility] Comment on above: Order Comment: Speci men Type: BLOOD SPECIMENOrdering Facility: [facility] Address: [address] [place] [address] Performed By: #### 2 4323-8 ####[facility]ENTERNCLIA [id number] [place] [address] [place] Chloride [Moles/Vol] 101 mmol/L Normal 98-107 [facility] Comment on above: Order Comment: Speci men Type: BLOOD SPECIMENOrdering Facility: [facility] Address: [address] [place] [address] Performed By: #### 2 4323-8 ####[facility]AWNCLIA [id number] [place] [address] [place] CO2 [Moles/Vol] 28 mmol/L Normal 22-30 [facility] Comment on above: Order Comment: Speci men Type: BLOOD SPECIMENOrdering Facility: [facility] Address: [address] [place] [address] Performed By: #### 2 4323-8 ####[facility]ENTERNCA [id number] [place] [address] [place] Creatinine [Mass/Vol] 0.65 mg/dL Normal 0.58-0.96 [facility] Comment on above: Order Comment: Speci men Type: BLOOD SPECIMENOrdering Facility: [facility] Address: [address] [place] [address] Performed By: #### 2 4323-8 ####[facility]ENTERNCLIA [id number] [place] [address] [place] eGFRcr SerPlBld CKD-EPI 2020 98 mL/min/1.73m??? Normal >=60 [facility] Comment on above: Order Comment: Speci men Type: BLOOD SPECIMENOrdering Facility: [facility] Address: [address] [place] [address] Result Comment: Alayna mated Glomerular Filtration Rate (eGFR) is calculated using the 2020 CKD-EPI creatinine equation. This equation utilizes serum creatinine, sex, and age as parameters. The creatinine assay has traceable calibration to isotope dilution-mass spectrometry. Refer to KDIGO guidelines for clinical interpretation. In patients with unstable renal function, e.g. those with acute kidney injury, the eGFR may not accurately reflect actual GFR. Performed By: #### 2 4323-8 ####[facility] [id number] [place] [address] [place] Glucose [Mass/Vol] 97 mg/dL Normal 74-99 [facility] Comment on above: Order Comment: [place] villarreal Type: BLOOD SPECIMENOrdering Facility: [facility] Address: [address] [place] [address] Result Comment: The Stateless Diabetes Association (ADA) provides guidance for cutoff values for fasting glucose and random glucose. The ADA defines fasting as no caloric intake for at least 8 hours. Fasting plasma glucose results between 100 to 125 mg/dL indicate increased risk for diabetes (prediabetes).Fasting plasma glucose results greater than or equal to 126 mg/dL meet the criteria for diagnosis of diabetes. In the absence of unequivocal hyperglycemia, results should be confirmed by repeat testing. In a patient with classic symptoms of hyperglycemia or hyperglycemic crisis, random plasma glucose results greater than or equal to 200 mg/dL meet the criteria for diagnosis of diabetes.Reference: Standards of Medical Care in Diabetes 2016, Stateless Diabetes Association. Diabetes Care. 2016.39(Suppl 1). Performed By: #### 2 4323-8 ####[facility] [id number] [place] [address] [place] Potassium [Moles/Vol] 4.1 mmol/L Normal 3.7-5.1 [facility] Comment on above: Order Comment: [place] villarreal Type: BLOOD SPECIMENOrdering Facility: [facility] Address: [address] [place] [address] Performed By: #### 2 4323-8 ####[facility] [id number] [place] [address] [place] Protein [Mass/Vol] 6.1 g/dL Low 6.3-8.0 [facility] Comment on above: Order Comment: Speci men Type: BLOOD SPECIMENOrdering Facility: [facility] Address: [address] [place] [address] Performed By: #### 2 4323-8 ####[facility] [id number] [place] [address] [place] Sodium [Moles/Vol] 138 mmol/L Normal 136-144 [facility] Comment on above: Order Comment: Speci men Type: BLOOD SPECIMENOrdering Facility: [facility] Address: [address] [place] [address] Performed By: #### 2 4323-8 ####[facility]NC[facility] [id number] [place] [address] [place] Urea nitrogen [Mass/Vol] 12 mg/dL Normal 7-21 [facility] Comment on above: Order Comment: Speci men Type: BLOOD SPECIMENOrdering Facility: [facility] Address: [address] [place] [address] Performed By: #### 2 4323-8 ####[facility] CENTERLI [id number] [place] [address] [place] Cortis SerPl-mCncon 11-18-19 25 Cortisol [Mass/Vol] 7.2 ug/dL Normal 4.8-19.5 [facility] Comment on above: Order Comment: Speci men Type: BLOOD SPECIMENOrdering Facility: [facility] Address: [address] [place] [address] Result Comment: Prov ided reference range is from 6-10 AM sample collection time.Cortisol Reference Range: 6-10 AM = 4.8-19.5 ug/dL, 4-8 PM = 2.5-11.9 ug/dL Performed By: #### 6 875-9, 3024-7, 3016-3, 2143-6 ####[facility] LABCLIA [id number] [facility] [place] [address] [place] DPYD/UGT1A1 GENOTYPING PANEL on 11-17-2024 DPYD/UGT1A1 GENOTYPING PANEL RESULT Normal [facility] Comment on above: Order Comment: Speci men Type: BLOOD SPECIMENOrdering Facility: [facility] Address: [address] [place] [address] Result Comment: [facility] [employer] DPYD and UGT1A1 GenotypingLaboratory Accession Number: [id number] Genotype: *1/*1DPYD Activity Score: 2DPYD Predicted Phenotype: DPYD Normal KvxxzinklxmYGX2G0 Genotype: *1/*80+*10AKE1L5 Predicted Phenotype: UGT1A1 Intermediate MetabolizerInterpretation:Two "normal function" alleles were observed in the DPYD gene (seevariant details below) resulting in an activity score of 2. Thisactivity score is associated with a DPYD normal metabolizer phenotype.DPYD normal metabolizers are not expected to require (based onpharmacogenomic results alone) selective adjustment of the dose ofmedications metabolized by DPD. Please consult a clinical pharmacistfor more information regarding drug therapy. Questions regardingmolecular testing details should be directed .One "decreased function" UGT1A1 allele, in combination with either one"normal function" or one "increased function" UGT1A1 allele, wasobserved in this sample (see variant details below). This isassociated with a UGT1A1 intermediate metabolizer phenotype. PRE1W0jnlhduutvwon metabolizers are not expected to require (based onpharmacogenomic results alone) selective adjustment of the dose ofmedications metabolized by UGT. Please consult a clinical pharmacistfor more information regarding drug therapy. Questions regardingmolecular testing details should be directed .The DPYD gene encodes dihydropyrimidine dehydrogenase (DPD). Thisenzyme is involved in the metabolism of fluoropyrimidines. The JQS3U2skao encodes UDP-glucuronosyltransferase (UGT). UGT is involved in themetabolism of certain medications including ones used in oncology. Forclinical correlation, drug-specific guidelines are available toprovide phenotype assignment and therapeutic recommendations based onphenotype. Patients who carry genetic variants associated with alteredmetabolism may be at risk for an adverse or poor response to drugsthat are predominantly metabolized by the associated enzyme (DPD orUGT). For patients with altered DPD and/or UGT activity, alternativepharmacological agents or dosing adjustments may be needed formedications metabolized by this enzyme to avoid an unexpected oradverse response.Please note that this DPYD genotyping test includes variants that maynot have been assayed in a previous test performed elsewhere. If thereis discordance of phenotype results between laboratories, it is likelya function of the different variants assayed in each test. Themethodology section of the report (see below) lists the variantsinterrogated by this test.DPYD Variant Details:[id number] Variant Details:UGT1A1 [id number], c.-346C>T, g.[id number]>T (legacy name 80); [id number], c.-41_-40dupTA g.[id number] (legacy name 28)DPYD Additional Information:In addition to increased risk of 5-fluorouracil toxicity, variants inthe DPYD gene may be associated with DPD deficiency, an autosomalrecessive inborn error of metabolism (OMIM: 343916). DPD deficiencyexhibits a wide range of phenotypic variability, from no symptoms to vera rare severe neurological disorder with onset in infancy orchildhood (prevalence unknown). For the vast majority of affectedindividuals, the first and only symptom is sensitivity to5-fluorouracil and capecitabine. It is possible that individuals withDPD deficiency may be identified by the presence of two "no-function"DPYD variants (activity score = 0). However, this test is designed asa pharmacogenomic test and is not intended as a diagnostic or carriertest for DPD deficiency. A formal genetics consultation is recommendedfor those with concerns regarding DPD deficiency.Limitations:DNA studies do not provide a definitive genetic or pharmacogenomicrisk in all individuals. This test is designed to detect a specificset of variants (see list below) in the DPYD gene (OMIM 495364) ayoTIA3T7 gene (OMIM 528829). This test does not detect all sequencevariants in either gene. Uncommon variants or single nucleotidepolymorphisms may affect binding of primers and probes and may resultin false negative, false positive, or indeterminate results. Theabsence of abnormal variants as analyzed in this test is interpretedas the presence of *1/*1 (wild type/normal) genotype. The phenotypeprovided in the interpretation may be impacted by undetected geneticand/or non-genetic factors such as drug-drug interactions.Methodology:Purified genomic DNA was subjected to polymerase chain reaction-basedamplification. The DPYD (NM_000110.3) and UGT1A1 (NM_000463.3) geneswere interrogated for known, clinically relevant variants. Primerextension products were analyzed using matrix-assisted laserdesorption/ionization massspectrometry, and specific genotypesassigned were then translated to the appropriate star (*) allele (DPYDand UGT1A1) and activity score (DPYD), see lists below. The referencegenome used is GRCh38/hg38.UGT1A1 star alleles: *1, *6, *27, *28, *36, *37, *80, *80+*28,*80+*36, and *80+*37. These alleles are detected using the presence orabsence of the following variants, RefSNP ID: [id number], [id number] (TA repeats), and [id number].DPYD star alleles and targeted variants:RefSNP ID Legacy Total Allele Highest Allele Name Frequency Frequency General Population (Population)No variantdetected *[id number] *2A 0.6% 2.4% (Eur F)[id number] *8 0.01% 0.03% (S )[id number] *10 n/[id number] *12 0.0008% 0.003% (S )[id number] *13 0.03% 0.06% (Eur F)[id number] Y186C 0.2% 2.15% ()[id number] c.2846A>T 0.3% 0.5% (Eur NF)[id number] HapB3 1.4% 2.1 % (Eur NF)[id number] HapB3(c.1236G>A) 1.4% 2.1% (Eur NF)Population frequencies are from gnomAD and may be different inspecific ethnic groups. The allele frequency shown is the total allelefrequency in all populations. The highest allele frequency for asingle population is also noted (Eur F = Peruvian, Eur NF = non-Peruvian, S = South ). Note: [id number] (HapB3)and [id number] (c.1236G>A) are in linkage disequilibrium thus aretypically seen together.References:1) Clinical Pharmacogenetics Implementation Consortium (CPIC):www.CPICpgx.org2) Pharmacogene Variation Consortium (PharmVar): www.PharmVar.org3) Genome Aggregation Database V2.1.1 (gnomAD), accessed March2021, https://gnomad.Degreedtitute.org4) Thierry M, Kera EM, Ovi JM, et al. "PharmacogenomicsKnowledge for Personalized Medicine" Clinical Pharmacology andTherapeutics (2012) 92(4): 414-417.5) Rafael U, Funmilayo ALARCON, Rory SM, et al. Clinical PharmacogeneticsImplementation Consortium (CPIC) Guideline for DihydropyrimidineDehydrogenase Genotype and Fluoropyrimidine Dosin Update. ClinPharmacol Ther. 2018;103(2):210-216.6) MedlineAssociated Material Processing, RocketOn Library of Medicine 2020. Dihydropyrimidinedehydrogenase deficiency, accessed 11 October 2020,https://medlineplus.gov/genetics/condition/dihydropyrimidine- dehydrogenase-deficiency/#resources7) Radha N, Elizabeth AMARO, Annie AGUIRREM, leti Naidu ABP. Purine andPyrimidine Metabolism: Pyrimidine Metabolism: DihydropyrimidineDehydrogenase. Mina and Jr's Principles and Practice of MedicalGenetics and Genomics: Metabolic Disorders, Seventh Edition. Edited byGuillermina Manuel al, Elsevier. 2020. Sections 6.3.4 - 6.3.4.4https://osx-cemxeadlcst-qrt.ccmain.[facility].org/#!/content/b ook/3-s2.0-[email or web address]?scrollTo=%[email or web address]) Perla RSFernanda MH, Alonzo CE, et al. Clinical PharmacogeneticsImplementation Consortium (CPIC) Guideline for UGT1A1 and AtazanavirPrescribing. Clinical Pharmacology and Therapeutics (2016) Apr;99(4):363-9.9) Radha Mota. Overview of Glibert's syndrome. Drug TherBull. 2019 Apr 57(2):27-30.10) [facility] 2020, Gilbert Syndrome, accessed 11 October 2020,https://my.[email or web address].[email or web address]/diseases/15326-zwdbjbli -syndromeDisclaimer:This test was developed and its performance characteristics determinedby [facility]'s Pathology and Laboratory Medicine Department. Ithas not been cleared or approved by the FDA. [facility] is regulated under CLIAas certified to perform high-complexity testing. This test is used forclinical purposes. It should not be regarded as investigational or forresearch.Interpretation performed at remote location ([facility]) by Janay Valles, PhD Performed By: #### D UPNL1 ####[facility] LIMSCLIA [id number] [place] [address] [place] T4 Free SerPl-mCncon 025 Free T4 [Mass/Vol] 1.1 ng/dL Normal 0.9-1.7 [facility] Comment on above: Order Comment: Speci men Type: BLOOD SPECIMENOrdering Facility: [facility] Address: [address] [place] [address] Performed By: #### 6 875-9, 3024-7, 3016-3, 2143-6 ####[facility] LABCLIA [id number] [place] [address] [place] TSH SerPl-aCncon 11-17-2024 TSH Qn 1.020 m[IU]/L Normal 0.270-4.20 0 [facility] Comment on above: Order Comment: Speci men Type: BLOOD SPECIMENOrdering Facility: [facility] Address: [address] [place] [address] Performed By: #### 6 875-9, 3024-7, 3016-3, 2143-6 ####[facility] LABCLIA [id number] [place] [id number] [place] CBC W Auto Differential pane l (Bld)on 11-16-2024 Basophils (Bld) [#/Vol] 0.10 10*3/uL Normal <0.11 [facility] Comment on above: Order Comment: Speci men Type: BLOOD SPECIMENOrdering Facility: [facility] Address: [address] [place] [address] Performed By: #### 5 7021-8 ####[facility] MILLTOWTEMITOPELIA [id number] [place] [address] [place] Basophils/100 WBC (Bld) 4.3 % Normal [facility] Comment on above: Order Comment: Speci men Type: BLOOD SPECIMENOrdering Facility: [facility] Address: [address] [place] [address] Performed By: #### 5 7021-8 ####[facility]ENTERBLAKEA [id number] [place] [address] [place] Differential cell count method Nom (Bld) Auto Normal [facility] Comment on above: Order Comment: Speci men Type: BLOOD SPECIMENOrdering Facility: [facility] Address: [address] [place] [address] Performed By: #### 5 7021-8 ####[facility] MILLTOWNCLIA [id number] [place] [address] [place] Eosinophils (Bld) [#/Vol] 0.18 10*3/uL Normal <0.46 [facility] Comment on above: Order Comment: Speci men Type: BLOOD SPECIMENOrdering Facility: [facility] Address: [address] [place] [address] Performed By: #### 5 7021-8 ####[facility] [id number] [place] [address] [place] Eosinophils/100 WBC (Bld) 7.8 % Normal [facility] Comment on above: Order Comment: Speci men Type: BLOOD SPECIMENOrdering Facility: [facility] Address: [address] [place] [address] Performed By: #### 5 7021-8 ####[facility] [id number] [place] [address] [place] Erythrocyte distribution width (RBC) [Ratio] 15.8 % High 11.5-15.0 [facility] Comment on above: Order Comment: Speci men Type: BLOOD SPECIMENOrdering Facility: [facility] Address: [address] [place] [address] Performed By: #### 5 7021-8 ####[facility] [id number] [place] [address] [place] Hematocrit (Bld) [Volume fraction] 33.2 % Low 36.0-46.0 [facility] Comment on above: Order Comment: Speci men Type: BLOOD SPECIMENOrdering Facility: [facility] Address: [address] [place] [address] Performed By: #### 5 7021-8 ####[facility] [id number] [place] [address] [place] Hemoglobin (Bld) [Mass/Vol] 11.0 g/dL Low 11.5-15.5 [facility] Comment on above: Order Comment: Speci men Type: BLOOD SPECIMENOrdering Facility: [facility] Address: [address] [place] [address] Performed By: #### 5 7021-8 ####[facility]ENTERNCLI [id number] [place] [address] [place] Immature granulocytes (Bld) [#/Vol] 0.08 10*3/uL Normal <0.10 [facility] Comment on above: Order Comment: Speci men Type: BLOOD SPECIMENOrdering Facility: [facility] Address: [address] [place] [address] Performed By: #### 5 7021-8 ####[facility] [id number] [place] [address] [place] Immature granulocytes/100 WBC (Bld) 3.5 % Normal [facility] Comment on above: Order Comment: Speci men Type: BLOOD SPECIMENOrdering Facility: [facility] Address: [address] [place] [address] Performed By: #### 5 7021-8 ####[facility] [id number] [place] [address] [place] Lymphocytes (Bld) [#/Vol] 0.40 10*3/uL Low 1.00-4.00 [facility] Comment on above: Order Comment: Speci men Type: BLOOD SPECIMENOrdering Facility: [facility] Address: [address] [place] [address] Performed By: #### 5 7021-8 ####[facility] [id number] [address] [place] Lymphocytes/100 WBC (Bld) 17.4 % Normal [facility] Comment on above: Order Comment: Speci men Type: BLOOD SPECIMENOrdering Facility: [facility] Address: [address] [place] [address] Performed By: #### 5 7021-8 ####[facility] [id number] [place] [address] [place] MCH (RBC) [Entitic mass] 30.5 pg Normal 26.0-34.0 [facility] Comment on above: Order Comment: Speci men Type: BLOOD SPECIMENOrdering Facility: [facility] Address: [address] [place] [address] Performed By: #### 5 7021-8 ####[facility] OMARLALILIA [id number] [place] [address] [place] MCHC (RBC) [Mass/Vol] 33.1 g/dL Normal 30.5-36.0 [facility] Comment on above: Order Comment: Speci men Type: BLOOD SPECIMENOrdering Facility: [facility] Address: [address] [place] [address] Performed By: #### 5 7021-8 ####[facility] [id number] [place] [address] [place] MCV (RBC) [Entitic vol] 92.0 fL Normal 80.0-100.0 [facility] Comment on above: Order Comment: Speci men Type: BLOOD SPECIMENOrdering Facility: [facility] Address: [address] [place] [address] Performed By: #### 5 7021-8 ####[facility] [id number] [place] [address] [place] Monocytes (Bld) [#/Vol] 0.24 10*3/uL Normal <0.87 [facility] Comment on above: Order Comment: Speci men Type: BLOOD SPECIMENOrdering Facility: [facility] Address: [address] [place] [address] Performed By: #### 5 7021-8 ####[facility] MED[facility] CENTERLIA [id number] [place] [address] [place] Monocytes/100 WBC (Bld) 10.4 % Normal [facility] Comment on above: Order Comment: Speci men Type: BLOOD SPECIMENOrdering Facility: [facility] Address: [address] [place] [address] Performed By: #### 5 7021-8 ####[facility] [id number] [place] [address] [place] Neutrophils (Bld) [#/Vol] 1.30 10*3/uL Low 1.45-7.50 [facility] Comment on above: Order Comment: Speci men Type: BLOOD SPECIMENOrdering Facility: [facility] Address: [address] [place] [address] Performed By: #### 5 7021-8 ####[facility] [id number] [place] [address] [place] Neutrophils/100 WBC (Bld) 56.6 % Normal [facility] Comment on above: Order Comment: Speci men Type: BLOOD SPECIMENOrdering Facility: [facility] Address: [address] [place] [address] Performed By: #### 5 7021-8 ####[facility] [id number] [place] [address] [place] Nucleated RBC (Bld) [#/Vol] 10*3/uL Normal <0.01 [facility] Comment on above: Order Comment: Speci men Type: BLOOD SPECIMENOrdering Facility: [facility] Address: [address] [place] [address] Performed By: #### 5 7021-8 ####[facility] CENTERLI [id number] [place] [address] [place] Nucleated RBC/100 WBC (Bld) [Ratio] 0.0 /100 WBC Normal [facility] Comment on above: Order Comment: Speci men Type: BLOOD SPECIMENOrdering Facility: [facility] Address: [address] [place] [address] Performed By: #### 5 7021-8 ####[facility]ENTERNCLI [id number] [place] [address] [place] Platelet mean volume (Bld) [Entitic vol] 9.8 fL Normal 9.0-12.7 [facility] Comment on above: Order Comment: Speci men Type: BLOOD SPECIMENOrdering Facility: [facility] Address: [address] [place] [address] Performed By: #### 5 7021-8 ####[facility] [id number] [place] [address] [place] Platelets (Bld) [#/Vol] 391 10*3/uL Normal 150-400 [facility] Comment on above: Order Comment: Speci men Type: BLOOD SPECIMENOrdering Facility: [facility] Address: [address] [place] [address] Result Comment: No c lot detected. Performed By: #### 5 7021-8 ####[facility] [id number] [place] [address] [place] RBC (Bld) [#/Vol] 3.61 10*6/uL Low 3.90-5.20 [facility] Comment on above: Order Comment: Speci men Type: BLOOD SPECIMENOrdering Facility: [facility] Address: [address] [place] [address] Performed By: #### 5 7021-8 ####[facility] [id number] [place] [address] [place] WBC (Bld) [#/Vol] 2.30 10*3/uL Low 3.70-11.00 [facility] Comment on above: Order Comment: Speci men Type: BLOOD SPECIMENOrdering Facility: [facility] Address: [address] [place] [address] Performed By: #### 5 7021-8 ####[facility]ENTERNCLIA [id number] [place] [address] [place] CNOVSPon 11-16-2024 CNOVSP Normal [facility] CNPNon 11-16-2024 CNPN Normal [facility] CNOVon 11-11-2024 CNOV Normal [facility] CBC W Auto Differential pane l (Bld)on 11-10-2024 Acanthocytes LM Ql (Bld) Few Normal [facility] Comment on above: Order Comment: Speci men Type: BLOOD SPECIMENOrdering Facility: [facility] Address: [address] [place] [address] Performed By: #### 5 7021-8 ####[facility] OCALAWNVL[facility] [id number] [address] LABORATORYCLIA [id number] [place] [address] [place] Anisocytosis Ql (Bld) Present Normal [facility] Comment on above: Order Comment: Speci men Type: BLOOD SPECIMENOrdering Facility: [facility] Address: [address] [place] [address] Performed By: #### 5 7021-8 ####[facility] CENTERLIA [id number] [address] LABORATORYCLIA [id number] [place] [address] [place] Basophils (Bld) [#/Vol] 0.24 10*3/uL High <0.11 [facility] Comment on above: Order Comment: Speci men Type: BLOOD SPECIMENOrdering Facility: [facility] Address: [address] [place] [address] Performed By: #### 5 7021-8 ####[facility] CENTERLIA [id number] [address] LABORATORYCLIA [id number] [place] [address] [place] Basophils/100 WBC (Bld) 1.0 % Normal [facility] Comment on above: Order Comment: Speci men Type: BLOOD SPECIMENOrdering Facility: [facility] Address: [address] [place] [address] Performed By: #### 5 7021-8 ####[facility] MILLTOWNCLIA [id number] [address] LABORATORYCLIA [id number] [place] [address] [place] Dacrocytes LM Ql (Bld) Few Normal [facility] Comment on above: Order Comment: Speci men Type: BLOOD SPECIMENOrdering Facility: [facility] Address: [address] [place] [address] Performed By: #### 5 7021-8 ####[facility] CENTERTEMITOPELIA [id number] [address] LABORATORYCLIA [id number] [place] [address] [place] Differential cell count method Nom (Bld) Manual Normal [facility] Comment on above: Order Comment: Speci men Type: BLOOD SPECIMENOrdering Facility: [facility] Address: [address] [place] [address] Performed By: #### 5 7021-8 ####[facility] OCALAWNCLIA [id number] [address] LABORATORYCLIA [id number] [place] [address] [place] Eosinophils (Bld) [#/Vol] 0.72 10*3/uL High <0.46 [facility] Comment on above: Order Comment: Speci men Type: BLOOD SPECIMENOrdering Facility: [facility] Address: [address] [place] [address] Performed By: #### 5 7021-8 ####[facility] MILLWNCLIA [id number] [address] LABORATORYCLIA [id number] [place] [address] [place] Eosinophils/100 WBC (Bld) 3.0 % Normal [facility] Comment on above: Order Comment: Speci men Type: BLOOD SPECIMENOrdering Facility: [facility] Address: [address] [place] [address] Performed By: #### 5 7021-8 ####[facility] MILLWNCLIA [id number] [address] LABORATORYCLIA [id number] [place] [address] [place] Erythrocyte distribution width (RBC) [Ratio] 16.2 % High 11.5-15.0 [facility] Comment on above: Order Comment: Speci men Type: BLOOD SPECIMENOrdering Facility: [facility] Address: [address] [place] [address] Performed By: #### 5 7021-8 ####[facility] CENTERLIA [id number] [address] LABORATORYCLIA [id number] [place] [address] [place] Hematocrit (Bld) [Volume fraction] 30.3 % Low 36.0-46.0 [facility] Comment on above: Order Comment: Speci men Type: BLOOD SPECIMENOrdering Facility: [facility] Address: [address] [place] [address] Performed By: #### 5 7021-8 ####[facility] CENTERLIA [id number] [address] LABORATORYCLIA [id number] [place] [address] [place] Hemoglobin (Bld) [Mass/Vol] 10.2 g/dL Low 11.5-15.5 [facility] Comment on above: Order Comment: Speci men Type: BLOOD SPECIMENOrdering Facility: [facility] Address: [address] [place] [address] Performed By: #### 5 7021-8 ####[facility] DORAWNCLIA [id number] [address] LABORATORYCLIA [id number] [place] [address] [place] Lymphocytes (Bld) [#/Vol] 2.16 10*3/uL Normal 1.00-4.00 [facility] Comment on above: Order Comment: Speci men Type: BLOOD SPECIMENOrdering Facility: [facility] Address: [address] [place] [address] Performed By: #### 5 7021-8 ####[facility] CENTERLIA [id number] [address] LABORATORYCLIA [id number] [address] [place] Lymphocytes/100 WBC (Bld) 9.0 % Normal [facility] Comment on above: Order Comment: Speci men Type: BLOOD SPECIMENOrdering Facility: [facility] Address: [address] [place] [address] Performed By: #### 5 7021-8 ####[facility]ENTERTEMITOPELIA [id number] [address] LABORATORYCLIA [id number] [place] [address] [place] MCH (RBC) [Entitic mass] 31.0 pg Normal 26.0-34.0 [facility] Comment on above: Order Comment: Speci men Type: BLOOD SPECIMENOrdering Facility: [facility] Address: [address] [place] [address] Performed By: #### 5 7021-8 ####[facility]ENTERNCLIA [id number] [address] LABORATORYCLIA [id number] [place] [address] [place] MCHC (RBC) [Mass/Vol] 33.7 g/dL Normal 30.5-36.0 [facility] Comment on above: Order Comment: Speci men Type: BLOOD SPECIMENOrdering Facility: [facility] Address: [address] [place] [address] Performed By: #### 5 7021-8 ####[facility] MILLTOWNCLIA [id number] [address] LABORATORYCLIA [id number] [place] [address] [place] [facility] MCV (RBC) [Entitic vol] 92.1 fL Normal 80.0-100.0 [facility] Comment on above: Order Comment: Speci men Type: BLOOD SPECIMENOrdering Facility: [facility] Address: [address] [place] [address] Performed By: #### 5 7021-8 ####[facility] BOULEVARDTOWNCLIA [id number] [address] LABORATORYCLIA [id number] [place] [address] [place] Monocytes (Bld) [#/Vol] 1.44 10*3/uL High <0.87 [facility] Comment on above: Order Comment: Speci men Type: BLOOD SPECIMENOrdering Facility: [facility] Address: [address] [place] [address] Performed By: #### 5 7021-8 ####[facility] MILLTOWNCLIA [id number] [address] LABORATORYCLIA [id number] [place] [address] [place] Monocytes/100 WBC (Bld) 6.0 % Normal [facility] Comment on above: Order Comment: Speci men Type: BLOOD SPECIMENOrdering Facility: [facility] Address: [address] [place] [address] Performed By: #### 5 7021-8 ####[facility] MILLTOWNCLIA [id number] [address] LABORATORYCLIA [id number] [place] [address] [place] MYELO% 1.0 % Normal [facility] Comment on above: Order Comment: Speci men Type: BLOOD SPECIMENOrdering Facility: [facility] Address: [address] [place] [address] Performed By: #### 5 7021-8 ####[facility]ENTERNCLIA [id number] [address] LABORATORYCLIA [id number] [place] [address] [place] Neutrophils (Bld) [#/Vol] 19.17 10*3/uL High 1.45-7.50 [facility] Comment on above: Order Comment: Speci men Type: BLOOD SPECIMENOrdering Facility: [facility] Address: [address] [place] [address] Performed By: #### 5 7021-8 ####[facility]AW[facility]CL[facility] [id number] [address] LABORATORYCLIA [id number] [place] [address] [place] Neutrophils/100 WBC (Bld) 80.0 % Normal [facility] Comment on above: Order Comment: Speci men Type: BLOOD SPECIMENOrdering Facility: [facility] Address: [address] [place] [address] Performed By: #### 5 7021-8 ####[facility] MILLTOWNCLIA [id number] [address] LABORATORYCLIA [id number] [place] [address] [place] Nucleated RBC (Bld) [#/Vol] 10*3/uL Normal <0.01 [facility] Comment on above: Order Comment: Speci men Type: BLOOD SPECIMENOrdering Facility: [facility] Address: [address] [place] [address] Performed By: #### 5 7021-8 ####[facility] OCALAWNVLIA [id number] [address] LABORATORYCLIA [id number] [place] [address] [place] Nucleated RBC/100 WBC (Bld) [Ratio] 0.0 /100 WBC Normal [facility] Comment on above: Order Comment: Speci men Type: BLOOD SPECIMENOrdering Facility: [facility] Address: [address] [place] [address] Performed By: #### 5 7021-8 ####[facility] ERA [id number] [address] LABORATORYCLIA [id number] [place] [address] [place] Ovalocytes LM Ql (Bld) Few Normal [facility] Comment on above: Order Comment: Speci men Type: BLOOD SPECIMENOrdering Facility: [facility] Address: [address] [place] [address] Performed By: #### 5 7021-8 ####[facility] MED[facility] CENTERLIA [id number] [address] LABORATORYCLIA [id number] [place] [address] [place] Platelet mean volume (Bld) [Entitic vol] 9.8 fL Normal 9.0-12.7 [facility] Comment on above: Order Comment: Speci men Type: BLOOD SPECIMENOrdering Facility: [facility] Address: [address] [place] [address] Performed By: #### 5 7021-8 ####[facility] BOULEVARDDAVIDWNCLIA [id number] [address] LABORATORYCLIA [id number] [place] [address] [place] Platelets (Bld) [#/Vol] 359 10*3/uL Normal 150-400 [facility] Comment on above: Order Comment: Speci men Type: BLOOD SPECIMENOrdering Facility: [facility] Address: [address] [place] [address] Result Comment: No c lot detected. Performed By: #### 5 7021-8 ####[facility]ENTERNCA [id number] [address] LABORATORYCLIA [id number] [place] [address] [place] Platelets Estimate (Bld) [#/Vol] Adequate Normal [facility] Comment on above: Order Comment: Speci men Type: BLOOD SPECIMENOrdering Facility: [facility] Address: [address] [place] [address] Performed By: #### 5 7021-8 ####[facility]ENTERNCLIA [id number] [address] LABORATORYCLIA [id number] [place] [address] [place] RBC (Bld) [#/Vol] 3.29 10*6/uL Low 3.90-5.20 [facility] Comment on above: Order Comment: Speci men Type: BLOOD SPECIMENOrdering Facility: [facility] Address: [address] [place] [address] Performed By: #### 5 7021-8 ####[facility] MILLTOWNCLIA [id number] [address] LABORATORYCLIA [id number] [place] [address] [place] RBC FRAGMENTS Few Abnormal None Seen [facility] Comment on above: Order Comment: Speci men Type: BLOOD SPECIMENOrdering Facility: [facility] Address: [address] [place] [address] Performed By: #### 5 7021-8 ####[facility] OCALAWNCLIA [id number] [address] LABORATORYIA [id number] [place] [address] [place] RED CELL MORPH Reviewed: see result s of individual morphologies Normal [facility] Comment on above: Order Comment: Speci men Type: BLOOD SPECIMENOrdering Facility: [facility] Address: [address] [place] [address] Performed By: #### 5 7021-8 ####[facility] ERA [id number] [address] LABORATORYCLIA [id number] [place] [address] [place] WBC (Bld) [#/Vol] 23.96 10*3/uL High 3.70-11.00 [facility] Comment on above: Order Comment: Speci men Type: BLOOD SPECIMENOrdering Facility: [facility] Address: [address] [place], [place] [address] Performed By: #### 5 7021-8 ####[facility]ENTERNCLIA [id number] [address] LABORATORYCLIA [id number] [place] [address] [place] WBC Left Shift Ql (Bld) Present Normal [facility] Comment on above: Order Comment: Speci men Type: BLOOD SPECIMENOrdering Facility: [facility] Address: [address] [place] [address] Performed By: #### 5 7021-8 ####[facility]ENTERNCLIA [id number] [address] LABORATORYCLIA [id number] [place] [address] [place] [facility] CNPNon 11-10-2024 CNPN Normal [facility] Comprehensive metabolic 2000 panelon 11-10-2024 Albumin [Mass/Vol] 4.0 g/dL Normal 3.9-4.9 [facility] Comment on above: Order Comment: Speci men Type: BLOOD SPECIMENOrdering Facility: [facility] Address: [address] [place] [address] Performed By: #### 2 4323-8 ####[facility]ENTERNCLIA [id number] [place] [address] [place] ALP [Catalytic activity/Vol] 111 U/L Normal 34-123 [facility] Comment on above: Order Comment: Speci men Type: BLOOD SPECIMENOrdering Facility: [facility] Address: [address] [place] [address] Performed By: #### 2 4323-8 ####[facility]ENTERNCLIA [id number] [place] [address] [place] ALT [Catalytic activity/Vol] 9 U/L Normal 7-38 [facility] Comment on above: Order Comment: Speci men Type: BLOOD SPECIMENOrdering Facility: [facility] Address: [address] [place] [address] Performed By: #### 2 4323-8 ####[facility]ENTERNCLIA [id number] [place] [address] [place] Anion gap [Moles/Vol] 11 mmol/L Normal 8-15 [facility] Comment on above: Order Comment: Speci men Type: BLOOD SPECIMENOrdering Facility: [facility] Address: [address] [place], [place] [address] Performed By: #### 2 4323-8 ####[facility] MED[facility] CENTERLIA [id number] [place] [address] [place] AST [Catalytic activity/Vol] 16 U/L Normal 13-35 [facility] Comment on above: Order Comment: Speci men Type: BLOOD SPECIMENOrdering Facility: [facility] Address: [address] [place] [address] Performed By: #### 2 4323-8 ####[facility] [id number] [place] [address] [place] Bilirubin [Mass/Vol] 0.2 mg/dL Normal 0.2-1.3 [facility] Comment on above: Order Comment: Speci men Type: BLOOD SPECIMENOrdering Facility: [facility] Address: [address] [place] [address] Performed By: #### 2 4323-8 ####[facility] MED[facility] CENTERLIA [id number] [place] [address] [place] Calcium [Mass/Vol] 9.0 mg/dL Normal 8.5-10.2 [facility] Comment on above: Order Comment: Speci men Type: BLOOD SPECIMENOrdering Facility: [facility] Address: [address] [place] [address] Performed By: #### 2 4323-8 ####[facility] ERA [id number] [place] [address] [place] Chloride [Moles/Vol] 100 mmol/L Normal 98-107 [facility] Comment on above: Order Comment: Speci men Type: BLOOD SPECIMENOrdering Facility: [facility] Address: [address] [place], [place] [address] Performed By: #### 2 4323-8 ####[facility] OCALAWNCLIA [id number] [place] [address] [place] CO2 [Moles/Vol] 25 mmol/L Normal 22-30 [facility] Comment on above: Order Comment: Speci men Type: BLOOD SPECIMENOrdering Facility: [facility] Address: [address] [place] [address] Performed By: #### 2 4323-8 ####[facility]ENTERNCLIA [id number] [place] [address] [place] Creatinine [Mass/Vol] 0.71 mg/dL Normal 0.58-0.96 [facility] Comment on above: Order Comment: Speci men Type: BLOOD SPECIMENOrdering Facility: [facility] Address: [address] [place] [address] Performed By: #### 2 4323-8 ####[facility] ERA [id number] [place] [address] [place] eGFRcr SerPlBld CKD-EPI 2020 94 mL/min/1.73m??? Normal >=60 [facility] Comment on above: Order Comment: Speci men Type: BLOOD SPECIMENOrdering Facility: [facility] Address: [address] [place] [address] Result Comment: Alayna mated Glomerular Filtration Rate (eGFR) is calculated using the 2020 CKD-EPI creatinine equation. This equation utilizes serum creatinine, sex, and age as parameters. The creatinine assay has traceable calibration to isotope dilution-mass spectrometry. Refer to KDIGO guidelines for clinical interpretation. In patients with unstable renal function, e.g. those with acute kidney injury, the eGFR may not accurately reflect actual GFR. Performed By: #### 2 4323-8 ####[facility] OCALAWNCLIA [id number] [place] [address] [place] Glucose [Mass/Vol] 96 mg/dL Normal 74-99 [facility] Comment on above: Order Comment: Speci men Type: BLOOD SPECIMENOrdering Facility: [facility] Address: [address] [place] [address] Result Comment: The Stateless Diabetes Association (ADA) provides guidance for cutoff values for fasting glucose and random glucose. The ADA defines fasting as no caloric intake for at least 8 hours. Fasting plasma glucose results between 100 to 125 mg/dL indicate increased risk for diabetes (prediabetes).Fasting plasma glucose results greater than or equal to 126 mg/dL meet the criteria for diagnosis of diabetes. In the absence of unequivocal hyperglycemia, results should be confirmed by repeat testing. In a patient with classic symptoms of hyperglycemia or hyperglycemic crisis, random plasma glucose results greater than or equal to 200 mg/dL meet the criteria for diagnosis of diabetes.Reference: Standards of Medical Care in Diabetes 2016, Stateless Diabetes Association. Diabetes Care. 2016.39(Suppl 1). Performed By: #### 2 4323-8 ####[facility] [id number] [place] [address] [place] Potassium [Moles/Vol] 3.8 mmol/L Normal 3.7-5.1 [facility] Comment on above: Order Comment: Mikhaili men Type: BLOOD SPECIMENOrdering Facility: [facility] Address: [address] [place] [address] Performed By: #### 2 4323-8 ####[facility] ERBrandee [id number] [place] [address] [place] Protein [Mass/Vol] 6.3 g/dL Normal 6.3-8.0 [facility] Comment on above: Order Comment: Speci men Type: BLOOD SPECIMENOrdering Facility: [facility] Address: [address] [place], [place] [address] Performed By: #### 2 4323-8 ####[facility]ENTERNCLIA [id number] [place] [address] [place] Sodium [Moles/Vol] 136 mmol/L Normal 136-144 [facility] Comment on above: Order Comment: Speci men Type: BLOOD SPECIMENOrdering Facility: [facility] Address: [address] [place] [address] Performed By: #### 2 4323-8 ####[facility] OMARLOS ANGELESNCLIA [id number] [place] [address] [place] Urea nitrogen [Mass/Vol] 10 mg/dL Normal 7-21 [facility] Comment on above: Order Comment: Speci men Type: BLOOD SPECIMENOrdering Facility: [facility] Address: [address] [place] [address] Performed By: #### 2 4323-8 ####[facility]ENTERNCBE[facility] [id number] [place] [address] [place] CNPNon 11-06-2024 CNPN Normal [facility] BREAST MARKERSon 11-04-2024 AP BIOMARKER DISCLAIMER Normal [facility] Comment on above: Order Comment: Speci men Type: TISSUE SPECIMENOrdering Facility: [facility] Address: [address] [place] [address] Result Comment: Nadya sherman Developed Test (LDT) Disclaimer:Performance characteristics of immunohistochemical, immunofluorescent, and chromogenic in-situ hybridization tests have been determined by the performing laboratory within [facility]'s [facility] Pathology and Laboratory Medicine Department ([facility], [facility], [facility], [facility], [facility], [facility], or [facility]) in a manner consistent with CLIA requirements. One or more of these tests may not have been cleared or approved by the FDA. [facility] is regulated under CLIA as qualified to perform high-complexity testing. These tests are used for clinical purposes. These should not be regarded as investigational or for research. Positive and negative controls stain appropriately. Performed By: #### L [id number] ####[facility] LABCLIA [id number] [place] [address] [place] AP BLOCK ID A1 Normal [facility] Comment on above: Order Comment: [place] cherelle Type: TISSUE SPECIMENOrdering Facility: [facility] Address: [address] [place] [address] Performed By: #### L [id number] ####[facility] LABCLIA [id number] [place] [id number] [facility] BIOMARKER INTERPRETATION COMMENT AND REFERENCE RANGE Normal [facility] Comment on above: Order Comment: Mikhailgwyn villarreal Type: TISSUE SPECIMENOrdering Facility: [facility] Address: [address] [place] [address] Result Comment: Refe rence Range for Hormone Receptors:Staining for VA of greater than or equal to 1% of the tumor cells is considered positive.Staining for ER of 1-10% of the tumor cells is considered low positive.Staining for ER of greater than 10% of the tumor cells is considered positive.Staining for ER or VA of less than 1% is considered negative.Reference Ranges for HER2 Immunohistochemistry:Positive (3+): Complete, intense circumferential membrane staining in greater than 10% of tumor cells.Equivocal (2+): Weak to moderate complete membrane staining observed in greater than 10% of tumor cells.Negative (1+): Incomplete, faint membrane staining in greater than 10% of tumor cells.Negative (0): No staining or incomplete faint membrane staining in less than or equal to 10% of tumor cells.Interpretation Comments:Consideration of follow-up testing for HER2 (ERBB2) status by fluorescence in situ hybridization (FISH) for all equivocal (2+) results is recommended and will be ordered as a reflex test if FISH was not a testing methodology already employed.Note for ER low results.For malignancy with a low level (1%-10%) of ER expression by immunohistochemistry, there are limited data on the overall benefit of endocrine therapies for a patient with low level (1%-10%) ER expression, but they currently suggest possible benefits, so patients are considered eligible for endocrine treatment. Some data indicate that invasive cancers with these results are heterogeneous in behavior and biology and often have gene expression profiles more similar to ER-negative cancers. Performed By: #### L [id number] ####[facility] LABCLIA [id number] [address] [address] [place] BIOMARKER METHOD Normal [facility] Comment on above: Order Comment: Speci men Type: TISSUE SPECIMENOrdering Facility: [facility] Address: [address] [facility] [place] [address] Result Comment: Estr ogen Receptor:Food and Drug Administration (FDA) cleared: [employer], [place], [place] Antibody: [id number] Receptor:FDA cleared: [employer], [place], [place] Antibody: [id number] by IHC:FDA cleared: [employer], [place], [place]Primary Antibody:4B5The hormone receptor tests were performed and reported in accordance with the guidelines approved by the Stateless Society of Clinical Oncologists and the College of Stateless Pathologists. Shellie MAX, et al. Estrogen and Progesterone Receptor Testing in Breast Cancer: Stateless Society of Clinical Oncologists and the College of Stateless Pathologists Guideline Update. Arch Pathol Lab Med. 2019;144(5):545-563. PMID: [id number].The hormone receptor assays have been internally validated on decalcified tissues (for [facility] only).Estrogen and progesterone receptor results are valid if tissue was processed according to ASCO/CAP guidelines.Antibody and Detection System: Baron's Pathway anti-HER2 rabbit monoclonal antibody (clone [id number]), Baron Confirm anti-estrogen receptor rabbit monoclonal antibody (clone SP1) and Baron anti-progesterone receptor rabbit monoclonal antibody (clone IE2) detected with the Baron UltraView Univeral DAB Detection Kit (indirect biotin-free detection), [employer], [place], [place].Control Slides: Cell line controls with high, equivocal, low, and negative HER2 protein expression, along with known positive control tissue and the patient's tissue, are evaluated for HER2 expression.The HER2 immunohistochemistry assay was developed, validated, scored, and reported in accordance with the guidelines approved by the Stateless Society of Clinical Oncologists and the College of Stateless Pathologists. Aleisha SALEH et al. Arch Pathol Lab Med. 2018;1379(9)The HER2 assay has not been validated on decalcified tissues. Given the possibility of false negative results on decalcified specimens, results should be interpreted with caution. Performed By: #### L [id number] ####[facility] LABCLIA [id number] [place] [address] [place] BREAST TUMOR GRADE Not Graded Normal [facility] Comment on above: Order Comment: Speci men Type: TISSUE SPECIMENOrdering Facility: [facility] Address: [address] [place], [place] [address] Performed By: #### L [id number] ####[facility] LABCLIA [id number] [facility] [place] [address] [place] [address] [place] [facility] CASE NUMBER INVASIVE [id number] Normal [facility] Comment on above: Order Comment: Speci men Type: TISSUE SPECIMENOrdering Facility: [facility] Address: [address] [place], [place] [address] Performed By: #### L [id number] ####[facility] LABCLIA [id number] [facility] [address] [place] [address] [place] COLD ISCHEMIA AND FIXATION TIMES Cannot be determined (See comment) Normal [facility] Comment on above: Order Comment: Speci men Type: TISSUE SPECIMENOrdering Facility: [facility] Address: [address] [place], [place] [address] Performed By: #### L [id number] ####[facility] LABCLIA [id number] [facility] [address], [facility] [place] ESTROGEN RECEPTOR (% TUMOR STAINING) 0 Normal [facility] Comment on above: Order Comment: Speci men Type: TISSUE SPECIMENOrdering Facility: [facility] Address: [address] [place], [place] [address] Performed By: #### L [id number] ####[facility] LABCLIA [id number] [facility] [place] [address] [place] [address] [place] ESTROGEN RECEPTOR (AVERAGE STAINING INTENSITY) Not Applicable Normal [facility] Comment on above: Order Comment: Speci men Type: TISSUE SPECIMENOrdering Facility: [facility] Address: [address] [place], [place] [address] Performed By: #### L [id number] ####[facility] LABCLIA [id number] [address] [place] [address] [place] ESTROGEN RECEPTOR STATUS (INVASIVE) Negative Normal [facility] Comment on above: Order Comment: Speci men Type: TISSUE SPECIMENOrdering Facility: [facility] Address: [address] [place] [address] Performed By: #### L [id number] ####[facility] LABCLIA [id number] [address], [place] [place] [address] [place] ESTROGEN RECEPTOR STATUS OF INTERNAL CONTROL Internal control absent; external controls stain as expected Normal [facility] Comment on above: Order Comment: Speci men Type: TISSUE SPECIMENOrdering Facility: [facility] Address: [address] [place] [address] Performed By: #### L [id number] ####[facility] LABCLIA [id number] [place] [address] [place] FINAL PERFORMING LAB Normal [facility] Comment on above: Order Comment: Speci men Type: TISSUE SPECIMENOrdering Facility: [facility] Address: [address] [place] [address] Result Comment: Diag nostic interpretation performed at: [facility], [address] [place] [address] CLIA# [id number] Director: Rob Mello MDElectronically signed out by: Devante Dean MD, PhD Performed By: #### L [id number] ####[facility] LABCLIA [id number] [place] [id number] [place] FIXATIVE Formalin, 10% Neutral Buffered Normal [facility] Comment on above: Order Comment: Speci men Type: TISSUE SPECIMENOrdering Facility: [facility] Address: [address] [place] [address] Performed By: #### L [id number] ####[facility] LABCLIA [id number] [address], [facility] [place] HER2 STATUS (BREAST) NEGATIVE (Score 0+) - Membrane staining that is incomplete and is faint / barely perceptible and in less than or equal to 10% of tumor cells (0+ / with membrane staining) Normal [facility] Comment on above: Order Comment: Speci men Type: TISSUE SPECIMENOrdering Facility: [facility] Address: [address] [place] [address] Performed By: #### L [id number] ####[facility] LABCLIA [id number] [address] [address] [place] PROGESTERONE RECEPTOR (% TUMOR STAINING) 0 Normal [facility] Comment on above: Order Comment: Speci men Type: TISSUE SPECIMENOrdering Facility: [facility] Address: [address] [place] [address] Performed By: #### L [id number] ####[facility] LABCLIA [id number] [place] [id number] [place] PROGESTERONE RECEPTOR (AVERAGE STAINING INTENSITY) Not Applicable Normal [facility] Comment on above: Order Comment: Speci men Type: TISSUE SPECIMENOrdering Facility: [facility] Address: [address] [place] [address] Performed By: #### L [id number] ####[facility] LABCLIA [id number] [address] [address] [place] PROGESTERONE RECEPTOR STATUS (INVASIVE) Negative Normal [facility] Comment on above: Order Comment: Speci men Type: TISSUE SPECIMENOrdering Facility: [facility] Address: [address] [place] [address] Performed By: #### L [id number] ####[facility] LABCLIA [id number] [address] [address] [place] PROGESTERONE RECEPTOR STATUS OF INTERNAL CONTROL Internal control absent; external controls stain as expected Normal [facility] Comment on above: Order Comment: Mikhaili men Type: TISSUE SPECIMENOrdering Facility: [facility] Address: [address] [place] [address] Performed By: #### L [id number] ####[facility] LABCLIA [id number] [address] [address] [place] TUMOR TYPE (INVASIVE) Carcinoma Normal [facility] Comment on above: Order Comment: Speci men Type: TISSUE SPECIMENOrdering Facility: [facility] Address: [address] [place] [address] Performed By: #### L [id number] ####[facility] LABIA [id number] [place] [id number] [place] CNOVon 11-04-2024 CNOV Normal [facility] Pathology biopsy report Gerald (Tiss)on 11-04-2024 AP DISCLAIMER Normal [facility] Comment on above: Order Comment: Speci men Type: TISSUE SPECIMENOrdering Facility: [facility] Address: [address] [place] [address] Result Comment: Nadya sherman Developed Test (LDT) Disclaimer:Performance characteristics of immunohistochemical, immunofluorescent, and chromogenic in-situ hybridization tests have been determined by the performing laboratory within [facility]'s [facility] Pathology and Laboratory Medicine Department ([facility], [facility], [facility], [facility], [facility], [facility], or [facility]) in a manner consistent with CLIA requirements. One or more of these tests may not have been cleared or approved by the FDA. [facility] is regulated under CLIA as qualified to perform high-complexity testing. These tests are used for clinical purposes. These should not be regarded as investigational or for research. Positive and negative controls stain appropriately. Performed By: #### 6 6121-5 ####[facility] LABCLIA [id number] [place] [id number] [place] CASE REPORT Normal [facility] Comment on above: Order Comment: Speci men Type: TISSUE SPECIMENOrdering Facility: [facility] Address: [address] [place] [address] Result Comment: Surg ical Pathology Report Case: [id number] Provider: Mary Green MD Collected: 11/04/2024 03:23 PMOrdering Location: General Surgery Received: 11/04/2024 05:06 PMPathologist: Devante Dean MD, PhDSpecimen: Lymph Node, Right, Axillary, right Performed By: #### 6 6121-5 ####[facility] LABCLIA [id number] [address] [place] CLINICAL HISTORY axillary mass Normal [facility] Comment on above: Order Comment: Speci men Type: TISSUE SPECIMENOrdering Facility: [facility] Address: [address] [place] [address] Result Comment: Comm ent: right Performed By: #### 6 6121-5 ####[facility] LABIA [id number] [address] DIAGNOSIS COMMENT Normal [facility] Comment on above: Order Comment: Speci men Type: TISSUE SPECIMENOrdering Facility: [facility] Address: [address] [place] [address] Result Comment: The biopsy shows a 2 mm focus of cohesive tumor cell clusters with marked nuclear pleomorphism and high mitotic activity involving fibrous tissue. 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 This may represent lymph node or soft tissue metastasis or invasive carcinoma arising at this site. Additional correlation is recommended.Results of ER, VA, and HER2 testing will follow in a linked report. Performed By: #### 6 6121-5 ####[facility] LABIA [id number] [address] FINAL DIAGNOSIS Normal [facility] Comment on above: Order Comment: Speci men Type: TISSUE SPECIMENOrdering Facility: [facility] Address: [address] [place] [address] Result Comment: Haroon swenson axillary lymph node, core biopsy:- Poorly-differentiated carcinoma; see comment.- Skeletal muscle, not involved by carcinoma. at 0955 EDT Performed By: #### 6 6121-5 ####[facility] LABCLIA [id number] [place] [address] [place] FINAL PERFORMING LAB Normal [facility] Comment on above: Order Comment: Speci men Type: TISSUE SPECIMENOrdering Facility: [facility] Address: [address] [place] [address] Result Comment: Diag nostic interpretation performed at: [facility], [address] [place] [address] CLIA# [id number] Director: Rob Mello MD Performed By: #### 6 6121-5 ####[facility] LABIA [id number] [address] [place] GROSS DESCRIPTION Normal [facility] Comment on above: Order Comment: Speci men Type: TISSUE SPECIMENOrdering Facility: [facility] Address: [address] [place] [address] Result Comment: A. L ymph Node, Right, AxillaryReceived in formalin labeled as "lymph node, right, axillary" are two segments of cylindrical tissue aggregating to 2.2 x 0.5 x 0.1 cm, zaman-yellow and of a soft consistency. The specimen was removed from the patient at 3:23 PM on 11/04/2024. On the same day, the specimen was placed in formalin at an unspecified time. Totally submitted in formalin in one cassette.FFS November 05, 2024 1:58 AMGross examination performed at [facility], [address] [place] [address] Performed By: #### 6 6121-5 ####[facility] LABCLIA [id number] [place] [address] [place] US GUIDED SOFT TISSUE MASS B IOPSY (POC) SURG USE ONLYon 11-04-2024 [facility] CNPNon 11-03-2024 CNPN Normal [facility] CBC W Auto Differential pane l (Bld)on 11-02-2024 Basophils (Bld) [#/Vol] 0.13 10*3/uL High <0.11 [facility] Comment on above: Order Comment: Speci men Type: BLOOD SPECIMENOrdering Facility: [facility] Address: [address] [place] [address] Performed By: #### 5 7021-8 ####[facility]ENTERLIA [id number] [place] [address] [place] Basophils/100 WBC (Bld) 2.1 % Normal [facility] Comment on above: Order Comment: Speci men Type: BLOOD SPECIMENOrdering Facility: [facility] Address: [address] [place] [address] Performed By: #### 5 7021-8 ####[facility] ERA [id number] [place] [address] [place] Differential cell count method Nom (Bld) Auto Normal [facility] Comment on above: Order Comment: Speci men Type: BLOOD SPECIMENOrdering Facility: [facility] Address: [address] [place] [address] Performed By: #### 5 7021-8 ####[facility]ENTERLIA [id number] [place] [address] [place] Eosinophils (Bld) [#/Vol] 0.23 10*3/uL Normal <0.46 [facility] Comment on above: Order Comment: Speci men Type: BLOOD SPECIMENOrdering Facility: [facility] Address: [address] [place] [address] Performed By: #### 5 7021-8 ####[facility]ENTERLIA [id number] [place] [address] [place] Eosinophils/100 WBC (Bld) 3.7 % Normal [facility] Comment on above: Order Comment: Speci men Type: BLOOD SPECIMENOrdering Facility: [facility] Address: [address] [place] [address] Performed By: #### 5 7021-8 ####[facility] OMARPkNCNATALI [id number] [place] [address] [place] Erythrocyte distribution width (RBC) [Ratio] 15.8 % High 11.5-15.0 [facility] Comment on above: Order Comment: Speci men Type: BLOOD SPECIMENOrdering Facility: [facility] Address: [address] [place] [address] Performed By: #### 5 7021-8 ####[facility]CLIA [id number] [place] [address] [place] Hematocrit (Bld) [Volume fraction] 31.1 % Low 36.0-46.0 [facility] Comment on above: Order Comment: Speci men Type: BLOOD SPECIMENOrdering Facility: [facility] Address: [address] [place] [address] Performed By: #### 5 7021-8 ####[facility]ERNCLIA [id number] [place] [address] [place] Hemoglobin (Bld) [Mass/Vol] 10.5 g/dL Low 11.5-15.5 [facility] Comment on above: Order Comment: Speci men Type: BLOOD SPECIMENOrdering Facility: [facility] Address: [address] [place] [address] Performed By: #### 5 7021-8 ####[facility]CLIA [id number] [place] [address] [place] Immature granulocytes (Bld) [#/Vol] 0.10 10*3/uL High <0.10 [facility] Comment on above: Order Comment: Speci men Type: BLOOD SPECIMENOrdering Facility: [facility] Address: [address] [place] [address] Performed By: #### 5 7021-8 ####[facility] OMARLOS ANGELESTEMITOPELIA [id number] [address] [place] [facility] Immature granulocytes/100 WBC (Bld) 1.6 % Normal [facility] Comment on above: Order Comment: Speci men Type: BLOOD SPECIMENOrdering Facility: [facility] Address: [address] [place] [address] Performed By: #### 5 7021-8 ####[facility] ERA [id number] [place] [address] [place] Lymphocytes (Bld) [#/Vol] 0.55 10*3/uL Low 1.00-4.00 [facility] Comment on above: Order Comment: Speci men Type: BLOOD SPECIMENOrdering Facility: [facility] Address: [address] [place] [address] Performed By: #### 5 7021-8 ####[facility] CENTERLIA [id number] [address] [place] Lymphocytes/100 WBC (Bld) 8.7 % Normal [facility] Comment on above: Order Comment: Speci men Type: BLOOD SPECIMENOrdering Facility: [facility] Address: [address] [place] [address] Performed By: #### 5 7021-8 ####[facility]ENTERLIA [id number] [place] [address] [place] MCH (RBC) [Entitic mass] 30.3 pg Normal 26.0-34.0 [facility] Comment on above: Order Comment: Speci men Type: BLOOD SPECIMENOrdering Facility: [facility] Address: [address] [place] [address] Performed By: #### 5 7021-8 ####[facility] [id number] [place] [address] [place] MCHC (RBC) [Mass/Vol] 33.8 g/dL Normal 30.5-36.0 [facility] Comment on above: Order Comment: Speci men Type: BLOOD SPECIMENOrdering Facility: [facility] Address: [address] [place] [address] Performed By: #### 5 7021-8 ####[facility] OMARLOS ANGELESBLAKEA [id number] [place] [address] [place] MCV (RBC) [Entitic vol] 89.9 fL Normal 80.0-100.0 [facility] Comment on above: Order Comment: Speci men Type: BLOOD SPECIMENOrdering Facility: [facility] Address: [address] [place] [address] Performed By: #### 5 7021-8 ####[facility] CENTERNCNATALI [id number] [place] [address] [place] Monocytes (Bld) [#/Vol] 0.71 10*3/uL Normal <0.87 [facility] Comment on above: Order Comment: Speci men Type: BLOOD SPECIMENOrdering Facility: [facility] Address: [address] [place] [address] Performed By: #### 5 7021-8 ####[facility] CENTERTEMITOPELIA [id number] [place] [address] [place] Monocytes/100 WBC (Bld) 11.3 % Normal [facility] Comment on above: Order Comment: Speci men Type: BLOOD SPECIMENOrdering Facility: [facility] Address: [address] [place] [address] Performed By: #### 5 7021-8 ####[facility]ENTERNCLIA [id number] [place] [address] [place] Neutrophils (Bld) [#/Vol] 4.57 10*3/uL Normal 1.45-7.50 [facility] Comment on above: Order Comment: Speci men Type: BLOOD SPECIMENOrdering Facility: [facility] Address: [address] [place] [address] Performed By: #### 5 7021-8 ####[facility] OMARLOS ANGELESBLAKEA [id number] [place] [address] [place] Neutrophils/100 WBC (Bld) 72.6 % Normal [facility] Comment on above: Order Comment: Speci men Type: BLOOD SPECIMENOrdering Facility: [facility] Address: [address] [place] [address] Performed By: #### 5 7021-8 ####[facility] [id number] [place] [address] [place] Nucleated RBC (Bld) [#/Vol] 10*3/uL Normal <0.01 [facility] Comment on above: Order Comment: Speci men Type: BLOOD SPECIMENOrdering Facility: [facility] Address: [address] [place] [address] Performed By: #### 5 7021-8 ####[facility] [id number] [place] [address] [place] Nucleated RBC/100 WBC (Bld) [Ratio] 0.0 /100 WBC Normal [facility] Comment on above: Order Comment: Speci men Type: BLOOD SPECIMENOrdering Facility: [facility] Address: [address] [place] [address] Performed By: #### 5 7021-8 ####[facility] [id number] [place] [address] [place] Platelet mean volume (Bld) [Entitic vol] 9.9 fL Normal 9.0-12.7 [facility] Comment on above: Order Comment: Speci men Type: BLOOD SPECIMENOrdering Facility: [facility] Address: [address] [place] [address] Performed By: #### 5 7021-8 ####[facility] OMARWNCLIA [id number] [place] [address] [place] Platelets (Bld) [#/Vol] 297 10*3/uL Normal 150-400 [facility] Comment on above: Order Comment: Speci men Type: BLOOD SPECIMENOrdering Facility: [facility] Address: [address] [place] [address] Result Comment: No c lot detected. Performed By: #### 5 7021-8 ####[facility]ERNCLIA [id number] [place] [address] [place] RBC (Bld) [#/Vol] 3.46 10*6/uL Low 3.90-5.20 [facility] Comment on above: Order Comment: Speci men Type: BLOOD SPECIMENOrdering Facility: [facility] Address: [address] [place] [address] Performed By: #### 5 7021-8 ####[facility]ERNCLIA [id number] [place] [address] [place] WBC (Bld) [#/Vol] 6.29 10*3/uL Normal 3.70-11.00 [facility] Comment on above: Order Comment: Speci men Type: BLOOD SPECIMENOrdering Facility: [facility] Address: [address] [place] [address] Performed By: #### 5 7021-8 ####[facility]ENTERNCLIA [id number] [place] [address] [place] [facility] [place] Comprehensive metabolic 2000 panelon 11-02-2024 Albumin [Mass/Vol] 4.0 g/dL Normal 3.9-4.9 [facility] Comment on above: Order Comment: Speci men Type: BLOOD SPECIMENOrdering Facility: [facility] Address: [address] [place] [address] Performed By: #### 2 4323-8 ####[facility] MILLTOWNCLIA [id number] [place] [address] [place] ALP [Catalytic activity/Vol] 103 U/L Normal 34-123 [facility] Comment on above: Order Comment: Speci men Type: BLOOD SPECIMENOrdering Facility: [facility] Address: [address] [place] [address] Performed By: #### 2 4323-8 ####[facility] BOULEVARDTOWNCLIA [id number] [place] [address] [place] ALT [Catalytic activity/Vol] 8 U/L Normal 7-38 [facility] Comment on above: Order Comment: Speci men Type: BLOOD SPECIMENOrdering Facility: [facility] Address: [address] [place] [address] Performed By: #### 2 4323-8 ####[facility]CLIA [id number] [place] [address] [place] Anion gap [Moles/Vol] 10 mmol/L Normal 8-15 [facility] Comment on above: Order Comment: Speci men Type: BLOOD SPECIMENOrdering Facility: [facility] Address: [address] [place] [address] Performed By: #### 2 4323-8 ####[facility] CENTERLIA [id number] [place] [address] [place] AST [Catalytic activity/Vol] 13 U/L Normal 13-35 [facility] Comment on above: Order Comment: Speci men Type: BLOOD SPECIMENOrdering Facility: [facility] Address: [address] [place] [address] Performed By: #### 2 4323-8 ####[facility] OCALAWNCLIA [id number] [place] [address] [place] Bilirubin [Mass/Vol] 0.3 mg/dL Normal 0.2-1.3 [facility] Comment on above: Order Comment: Speci men Type: BLOOD SPECIMENOrdering Facility: [facility] Address: [address] [place] [address] Performed By: #### 2 4323-8 ####[facility] OCALAWNCLIA [id number] [place] [address] [place] Calcium [Mass/Vol] 9.3 mg/dL Normal 8.5-10.2 [facility] Comment on above: Order Comment: Speci men Type: BLOOD SPECIMENOrdering Facility: [facility] Address: [address] [place] [address] Performed By: #### 2 4323-8 ####[facility]ENTERLIA [id number] [place] [address] [place] Chloride [Moles/Vol] 100 mmol/L Normal 98-107 [facility] Comment on above: Order Comment: Speci men Type: BLOOD SPECIMENOrdering Facility: [facility] Address: [address] [place] [address] Performed By: #### 2 4323-8 ####[facility]ENTERLIA [id number] [place] [address] [place] CO2 [Moles/Vol] 26 mmol/L Normal 22-30 [facility] Comment on above: Order Comment: Speci men Type: BLOOD SPECIMENOrdering Facility: [facility] Address: [address] [place] [address] Performed By: #### 2 4323-8 ####[facility]ENTERLIA [id number] [place] [address] [place] Creatinine [Mass/Vol] 0.64 mg/dL Normal 0.58-0.96 [facility] Comment on above: Order Comment: Speci men Type: BLOOD SPECIMENOrdering Facility: [facility] Address: [address] [place] [address] Performed By: #### 2 4323-8 ####[facility] OCALAWNCLIA [id number] [place] [address] [place] eGFRcr SerPlBld CKD-EPI 2020 98 mL/min/1.73m??? Normal >=60 [facility] Comment on above: Order Comment: [place] villarreal Type: BLOOD SPECIMENOrdering Facility: [facility] Address: [address] [place] [address] Result Comment: Alayna mated Glomerular Filtration Rate (eGFR) is calculated using the 2020 CKD-EPI creatinine equation. This equation utilizes serum creatinine, sex, and age as parameters. The creatinine assay has traceable calibration to isotope dilution-mass spectrometry. Refer to KDIGO guidelines for clinical interpretation. In patients with unstable renal function, e.g. those with acute kidney injury, the eGFR may not accurately reflect actual GFR. Performed By: #### 2 4323-8 ####[facility]ENTERNCLIA [id number] [place] [address] [place] Glucose [Mass/Vol] 98 mg/dL Normal 74-99 [facility] Comment on above: Order Comment: [place] villarreal Type: BLOOD SPECIMENOrdering Facility: [facility] Address: [address] [place] [address] Result Comment: The Stateless Diabetes Association (ADA) provides guidance for cutoff values for fasting glucose and random glucose. The ADA defines fasting as no caloric intake for at least 8 hours. Fasting plasma glucose results between 100 to 125 mg/dL indicate increased risk for diabetes (prediabetes).Fasting plasma glucose results greater than or equal to 126 mg/dL meet the criteria for diagnosis of diabetes. In the absence of unequivocal hyperglycemia, results should be confirmed by repeat testing. In a patient with classic symptoms of hyperglycemia or hyperglycemic crisis, random plasma glucose results greater than or equal to 200 mg/dL meet the criteria for diagnosis of diabetes.Reference: Standards of Medical Care in Diabetes 2016, Stateless Diabetes Association. Diabetes Care. 2016.39(Suppl 1). Performed By: #### 2 4323-8 ####[facility]NC[facility] [id number] [place] [address] [place] Potassium [Moles/Vol] 4.3 mmol/L Normal 3.7-5.1 [facility] Comment on above: Order Comment: Speci men Type: BLOOD SPECIMENOrdering Facility: [facility] Address: [address] [place] [address] Performed By: #### 2 4323-8 ####[facility] MILLTOWNCLIA [id number] [place] [address] [place] Protein [Mass/Vol] 6.3 g/dL Normal 6.3-8.0 [facility] Comment on above: Order Comment: Speci men Type: BLOOD SPECIMENOrdering Facility: [facility] Address: [address] [place] [address] Performed By: #### 2 4323-8 ####[facility] MILLWNCLIA [id number] [place] [address] [place] Sodium [Moles/Vol] 136 mmol/L Normal 136-144 [facility] Comment on above: Order Comment: Speci men Type: BLOOD SPECIMENOrdering Facility: [facility] Address: [address] [place] [address] Performed By: #### 2 4323-8 ####[facility] MILLWNCLIA [id number] [place] [address] [place] Urea nitrogen [Mass/Vol] 10 mg/dL Normal 7-21 [facility] Comment on above: Order Comment: Speci men Type: BLOOD SPECIMENOrdering Facility: [facility] Address: [address] [place] [address] Performed By: #### 2 4323-8 ####[facility] MILLWNCLIA [id number] [place] [address] [place] CNPNon 10-29-2024 CNPN Normal [facility] CNOVon 10-28-2024 CNOV Normal [facility] RADHA US BREAST LTD RTon 10-28 RADHA US BREAST LTD RT Normal [facility] CBC W Auto Differential pane l (Bld)on 10-27-2024 Erythrocyte distribution width (RBC) [Ratio] 16.2 % High 11.5-15.0 [facility] Comment on above: Order Comment: Speci men Type: BLOOD SPECIMENOrdering Facility: [facility] Address: [address] [place] [address] Performed By: #### 5 7021-8 ####[facility] [id number] [place] [address] [place] Hematocrit (Bld) [Volume fraction] 32.1 % Low 36.0-46.0 [facility] Comment on above: Order Comment: Speci men Type: BLOOD SPECIMENOrdering Facility: [facility] Address: [address] [place] [address] Performed By: #### 5 7021-8 ####[facility] [id number] [place] [address] [place] Hemoglobin (Bld) [Mass/Vol] 10.8 g/dL Low 11.5-15.5 [facility] Comment on above: Order Comment: Speci men Type: BLOOD SPECIMENOrdering Facility: [facility] Address: [address] [place] [address] Performed By: #### 5 7021-8 ####[facility] MED[facility] CENTERLIA [id number] [place] [address] [place] MCH (RBC) [Entitic mass] 30.3 pg Normal 26.0-34.0 [facility] Comment on above: Order Comment: Speci men Type: BLOOD SPECIMENOrdering Facility: [facility] Address: [address] [place] [address] Performed By: #### 5 7021-8 ####[facility] [id number] [place] [address] [place] MCHC (RBC) [Mass/Vol] 33.6 g/dL Normal 30.5-36.0 [facility] Comment on above: Order Comment: Speci men Type: BLOOD SPECIMENOrdering Facility: [facility] Address: [address] [place] [address] Performed By: #### 5 7021-8 ####[facility] CENTERNANO [id number] [place] [address] [place] MCV (RBC) [Entitic vol] 89.9 fL Normal 80.0-100.0 [facility] Comment on above: Order Comment: Speci men Type: BLOOD SPECIMENOrdering Facility: [facility] Address: [address] [place] [address] Performed By: #### 5 7021-8 ####[facility] CENTERTEMITOPEBrandee [id number] [place] [address] [place] Platelet mean volume (Bld) [Entitic vol] 9.1 fL Normal 9.0-12.7 [facility] Comment on above: Order Comment: Speci men Type: BLOOD SPECIMENOrdering Facility: [facility] Address: [address] [place] [address] Performed By: #### 5 7021-8 ####[facility] CENTERBLAKEA [id number] [place] [address] [place] Platelets (Bld) [#/Vol] 449 10*3/uL High 150-400 [facility] Comment on above: Order Comment: Speci men Type: BLOOD SPECIMENOrdering Facility: [facility] Address: [address] [place] [address] Result Comment: No c lot detected. Performed By: #### 5 7021-8 ####[facility] CENTERNCLIBrandee [id number] [place] [address] [place] RBC (Bld) [#/Vol] 3.57 10*6/uL Low 3.90-5.20 [facility] Comment on above: Order Comment: Speci men Type: BLOOD SPECIMENOrdering Facility: [facility] Address: [address] [place] [address] Performed By: #### 5 7021-8 ####[facility] CENTERNCLIA [id number] [place] [address] [place] WBC (Bld) [#/Vol] 52.37 10*3/uL High 3.70-11.00 [facility] Comment on above: Order Comment: Speci men Type: BLOOD SPECIMENOrdering Facility: [facility] Address: [address] [place] [address] Performed By: #### 5 7021-8 ####[facility] CENTERNCLIA [id number] [place] [address] [place] Cancer Ag15-3 SerPl-aCncon 0 10-27-2024 Cancer Ag 15-3 Qn 45.9 U/mL High <26.0 [facility] Comment on above: Order Comment: Speci men Type: BLOOD SPECIMENOrdering Facility: [facility] Address: [address] [place] [address] Result Comment: The CA 15-3 test methodology used is the Electrochemiluminescence Immunoassay by [employer]. Results obtained with different methods or kits cannot be used interchangeably. Performed By: #### 3 016-3, 2143-6, 6875-9, 3024-7 ####[facility] LABCLIA [id number] [place] [address] [place] Comprehensive metabolic 2000 panelon 10-27-2024 Albumin [Mass/Vol] 4.2 g/dL Normal 3.9-4.9 [facility] Comment on above: Order Comment: Speci men Type: BLOOD SPECIMENOrdering Facility: [facility] Address: [address] [place] [address] Performed By: #### 2 4323-8 ####[facility] MILLTOWNCLIA [id number] [place] [address] [place] ALP [Catalytic activity/Vol] 214 U/L High 34-123 [facility] Comment on above: Order Comment: Speci men Type: BLOOD SPECIMENOrdering Facility: [facility] Address: [address] [place] [address] Performed By: #### 2 4323-8 ####[facility] OCALAWNCLIA [id number] [place] [address] [place] ALT [Catalytic activity/Vol] 10 U/L Normal 7-38 [facility] Comment on above: Order Comment: Speci men Type: BLOOD SPECIMENOrdering Facility: [facility] Address: [address] [place] [address] Performed By: #### 2 4323-8 ####[facility] MEDICAL CENTERLIA [id number] [place] [address] [place] Anion gap [Moles/Vol] 11 mmol/L Normal 8-15 [facility] Comment on above: Order Comment: Speci men Type: BLOOD SPECIMENOrdering Facility: [facility] Address: [address] [place] [address] Performed By: #### 2 4323-8 ####[facility] CENTERNCLIA [id number] [place] [address] [place] AST [Catalytic activity/Vol] 26 U/L Normal 13-35 [facility] Comment on above: Order Comment: Speci men Type: BLOOD SPECIMENOrdering Facility: [facility] Address: [address] [place] [address] Performed By: #### 2 4323-8 ####[facility] OCALAWNCLIA [id number] [place] [address] [place] Bilirubin [Mass/Vol] 0.2 mg/dL Normal 0.2-1.3 [facility] Comment on above: Order Comment: Speci men Type: BLOOD SPECIMENOrdering Facility: [facility] Address: [address] [place] [address] Performed By: #### 2 4323-8 ####[facility] OMARTOWNCLIA [id number] [place] [address] [place] Calcium [Mass/Vol] 10.0 mg/dL Normal 8.5-10.2 [facility] Comment on above: Order Comment: Speci men Type: BLOOD SPECIMENOrdering Facility: [facility] Address: [address] [place] [address] Performed By: #### 2 4323-8 ####[facility] MILLWNCLIA [id number] [place] [address] [place] Chloride [Moles/Vol] 100 mmol/L Normal 98-107 [facility] Comment on above: Order Comment: Speci men Type: BLOOD SPECIMENOrdering Facility: [facility] Address: [address] [place] [address] Performed By: #### 2 4323-8 ####[facility]ENTERNCLIA [id number] [place] [address] [place] CO2 [Moles/Vol] 26 mmol/L Normal 22-30 [facility] Comment on above: Order Comment: Speci men Type: BLOOD SPECIMENOrdering Facility: [facility] Address: [address] [place] [address] Performed By: #### 2 4323-8 ####[facility] CENTERNCLIA [id number] [place] [address] [place] Creatinine [Mass/Vol] 0.71 mg/dL Normal 0.58-0.96 [facility] Comment on above: Order Comment: Speci men Type: BLOOD SPECIMENOrdering Facility: [facility] Address: [address] [place] [address] Performed By: #### 2 4323-8 ####[facility] OCALAWNCLI [id number] [place] [address] [place] eGFRcr SerPlBld CKD-EPI 2020 94 mL/min/1.73m??? Normal >=60 [facility] Comment on above: Order Comment: [place] villarreal Type: BLOOD SPECIMENOrdering Facility: [facility] Address: [address] [place] [address] Result Comment: Alayna mated Glomerular Filtration Rate (eGFR) is calculated using the 2020 CKD-EPI creatinine equation. This equation utilizes serum creatinine, sex, and age as parameters. The creatinine assay has traceable calibration to isotope dilution-mass spectrometry. Refer to KDIGO guidelines for clinical interpretation. In patients with unstable renal function, e.g. those with acute kidney injury, the eGFR may not accurately reflect actual GFR. Performed By: #### 2 4323-8 ####[facility] [id number] [place] [address] [place] Glucose [Mass/Vol] 138 mg/dL High 74-99 [facility] Comment on above: Order Comment: [place] villarreal Type: BLOOD SPECIMENOrdering Facility: [facility] Address: [address] [place] [address] Result Comment: The Stateless Diabetes Association (ADA) provides guidance for cutoff values for fasting glucose and random glucose. The ADA defines fasting as no caloric intake for at least 8 hours. Fasting plasma glucose results between 100 to 125 mg/dL indicate increased risk for diabetes (prediabetes).Fasting plasma glucose results greater than or equal to 126 mg/dL meet the criteria for diagnosis of diabetes. In the absence of unequivocal hyperglycemia, results should be confirmed by repeat testing. In a patient with classic symptoms of hyperglycemia or hyperglycemic crisis, random plasma glucose results greater than or equal to 200 mg/dL meet the criteria for diagnosis of diabetes.Reference: Standards of Medical Care in Diabetes 2016, Stateless Diabetes Association. Diabetes Care. 2016.39(Suppl 1). Performed By: #### 2 4323-8 ####[facility]ENTERNCLIA [id number] [place] [address] [place] Potassium [Moles/Vol] 3.5 mmol/L Low 3.7-5.1 [facility] Comment on above: Order Comment: Speci men Type: BLOOD SPECIMENOrdering Facility: [facility] Address: [address] [place] [address] Performed By: #### 2 4323-8 ####[facility] MILLWNCLIA [id number] [place] [address] [place] Protein [Mass/Vol] 6.7 g/dL Normal 6.3-8.0 [facility] Comment on above: Order Comment: Speci men Type: BLOOD SPECIMENOrdering Facility: [facility] Address: [address] [place] [address] Performed By: #### 2 4323-8 ####[facility] CENTERTEMITOPELIA [id number] [place] [address] [place] Sodium [Moles/Vol] 137 mmol/L Normal 136-144 [facility] Comment on above: Order Comment: Speci men Type: BLOOD SPECIMENOrdering Facility: [facility] Address: [address] [place] [address] Performed By: #### 2 4323-8 ####[facility] MILLLALILIA [id number] [place] [address] [place] Urea nitrogen [Mass/Vol] 7 mg/dL Normal 7-21 [facility] Comment on above: Order Comment: Speci men Type: BLOOD SPECIMENOrdering Facility: [facility] Address: [address] [place] [address] Performed By: #### 2 4323-8 ####[facility] MILLLOS ANGELESNCLIA [id number] [place] [address] [place] Cortis Mylene 10-28-19 25 Cortisol [Mass/Vol] 11.6 ug/dL Normal 4.8-19.5 [facility] Comment on above: Order Comment: Speci men Type: BLOOD SPECIMENOrdering Facility: [facility] Address: [address] [place] [address] Result Comment: Prov ided reference range is from 6-10 AM sample collection time.Cortisol Reference Range: 6-10 AM = 4.8-19.5 ug/dL, 4-8 PM = 2.5-11.9 ug/dL Performed By: #### 3 016-3, 2143-6, 6875-9, 3024-7 ####[facility] LABCLIA [id number] [place] [address] [place] T4 Free SerPl-mCncon 025 Free T4 [Mass/Vol] 1.3 ng/dL Normal 0.9-1.7 [facility] Comment on above: Order Comment: Speci men Type: BLOOD SPECIMENOrdering Facility: [facility] Address: [address] [place] [address] Performed By: #### 3 016-3, 2143-6, 6875-9, 3024-7 ####[facility] LABCLIA [id number] [place] [address] [place] TSH SerPl-aCncon 10-27-2024 TSH Qn 1.710 m[IU]/L Normal 0.270-4.20 0 [facility] Comment on above: Order Comment: Speci men Type: BLOOD SPECIMENOrdering Facility: [facility] Address: [address] [place] [address] Performed By: #### 3 016-3, 2143-6, 6875-9, 3024-7 ####[facility] LABCLIA [id number] [place] [address] [place] CNPNon 10-26-2024 CNPN Normal [facility] MRI BRACHIAL PLEXUS WOW IVCO N LTon 10-22-2024 MRI BRACHIAL PLEXUS WOW IVCON LT Normal [facility] CNPNon 10-21-2024 CNPN Normal [facility] CBC W Auto Differential pane l (Bld)on 10-20-2024 Basophils (Bld) [#/Vol] 0.05 10*3/uL Normal <0.11 [facility] Comment on above: Order Comment: Speci men Type: BLOOD SPECIMENOrdering Facility: [facility] Address: [address] [place] [address] Performed By: #### 5 7021-8 ####[facility] OCALAWNCLIA [id number] [address] LABORATORYCLIA [id number] [place] [address] [place] [facility] Basophils/100 WBC (Bld) 4.0 % Normal [facility] Comment on above: Order Comment: Speci men Type: BLOOD SPECIMENOrdering Facility: [facility] Address: [address] [place] [address] Performed By: #### 5 7021-8 ####[facility] [id number] [address] LABORATORYCLIA [id number] [address] OF [facility] Dacrocytes LM Ql (Bld) Few Normal [facility] Comment on above: Order Comment: Speci men Type: BLOOD SPECIMENOrdering Facility: [facility] Address: [address] [place] [address] Performed By: #### 5 7021-8 ####[facility] [id number] [address] LABORATORYCLIA [id number] [address] Differential cell count method Nom (Bld) Manual Normal [facility] Comment on above: Order Comment: Speci men Type: BLOOD SPECIMENOrdering Facility: [facility] Address: [address] [place] [address] Performed By: #### 5 7021-8 ####[facility] MILLTOWNCLIA [id number] [address] LABORATORYCLIA [id number] [place] [address] [place] Eosinophils (Bld) [#/Vol] 0.04 10*3/uL Normal <0.46 [facility] Comment on above: Order Comment: Speci men Type: BLOOD SPECIMENOrdering Facility: [facility] Address: [address] [place] [address] Performed By: #### 5 7021-8 ####[facility] OCALAWNCLIA [id number] [address] LABORATORYCLIA [id number] [place] [address] [place] Eosinophils/100 WBC (Bld) 3.0 % Normal [facility] Comment on above: Order Comment: Speci men Type: BLOOD SPECIMENOrdering Facility: [facility] Address: [facility] [place] [address] Performed By: #### 5 7021-8 ####[facility] BOULEVARDTOWNCLIA [id number] [address] LABORATORYCLIA [id number] [place] [address] [place] Erythrocyte distribution width (RBC) [Ratio] 14.8 % Normal 11.5-15.0 [facility] Comment on above: Order Comment: Speci men Type: BLOOD SPECIMENOrdering Facility: [facility] Address: [address] [place] [place] [id number] Performed By: #### 5 7021-8 ####[facility] MILLTOWNCLIA [id number] [address] LABORATORYCLIA [id number] [place] [address] [place] Hematocrit (Bld) [Volume fraction] 30.3 % Low 36.0-46.0 [facility] Comment on above: Order Comment: Speci men Type: BLOOD SPECIMENOrdering Facility: [facility] Address: [address] [place] [address] Performed By: #### 5 7021-8 ####[facility] CENTERLIA [id number] [address] LABORATORYIA [id number] [place] [address] [place] Hemoglobin (Bld) [Mass/Vol] 10.2 g/dL Low 11.5-15.5 [facility] Comment on above: Order Comment: Speci men Type: BLOOD SPECIMENOrdering Facility: [facility] Address: [address] [place] [address] Performed By: #### 5 7021-8 ####[facility] OCALAWNVLIA [id number] [address] LABORATORYIA [id number] [place] [address] [place] Lymphocytes (Bld) [#/Vol] 0.38 10*3/uL Low 1.00-4.00 [facility] Comment on above: Order Comment: Speci men Type: BLOOD SPECIMENOrdering Facility: [facility] Address: [address] [place] [address] Performed By: #### 5 7021-8 ####[facility] MED[facility] CENTERLIA [id number] [address] LABORATORYCLIA [id number] [place] [address] [place] Lymphocytes/100 WBC (Bld) 30.0 % Normal [facility] Comment on above: Order Comment: Speci men Type: BLOOD SPECIMENOrdering Facility: [facility] Address: [address] [place] [address] Performed By: #### 5 7021-8 ####[facility] OMARDAVIDWNCLIA [id number] [address] LABORATORYCLIA [id number] [place] [address] [place] [facility] MCH (RBC) [Entitic mass] 29.7 pg Normal 26.0-34.0 [facility] Comment on above: Order Comment: Speci men Type: BLOOD SPECIMENOrdering Facility: [facility] Address: [address] [place] [address] Performed By: #### 5 7021-8 ####[facility] [id number] [address] LABORATORYCLIA [id number] [place] [address] [place] [facility] MCHC (RBC) [Mass/Vol] 33.7 g/dL Normal 30.5-36.0 [facility] Comment on above: Order Comment: Speci men Type: BLOOD SPECIMENOrdering Facility: [facility] Address: [address] [place] [address] Performed By: #### 5 7021-8 ####[facility] [id number] [address] LABORATORYCLIA [id number] [place] [address] [place] [facility] MCV (RBC) [Entitic vol] 88.1 fL Normal 80.0-100.0 [facility] Comment on above: Order Comment: Speci men Type: BLOOD SPECIMENOrdering Facility: [facility] Address: [address] [place] [address] Performed By: #### 5 7021-8 ####[facility] [id number] [address] LABORATORYCLIA [id number] [place] [address] [place] Metamyelocytes/100 WBC (Bld) 1.0 % Normal [facility] Comment on above: Order Comment: Speci men Type: BLOOD SPECIMENOrdering Facility: [facility] Address: [address] [place] [address] Performed By: #### 5 7021-8 ####[facility] OCALAWNCLIA [id number] [address] LABORATORYCLIA [id number] [place] [address] [place] Monocytes (Bld) [#/Vol] 0.11 10*3/uL Normal <0.87 [facility] Comment on above: Order Comment: Speci men Type: BLOOD SPECIMENOrdering Facility: [facility] Address: [address] [place] [address] Performed By: #### 5 7021-8 ####[facility] CENTERLIA [id number] [address] LABORATORYCLIA [id number] [place] [address] [place] Monocytes/100 WBC (Bld) 9.0 % Normal [facility] Comment on above: Order Comment: Speci men Type: BLOOD SPECIMENOrdering Facility: [facility] Address: [address] [place] [address] Performed By: #### 5 7021-8 ####[facility] [id number] [address] LABORATORYCLIA [id number] [place] [address] [place] Neutrophils (Bld) [#/Vol] 0.67 10*3/uL Low 1.45-7.50 [facility] Comment on above: Order Comment: Speci men Type: BLOOD SPECIMENOrdering Facility: [facility] Address: [address] [place] [address] Performed By: #### 5 7021-8 ####[facility]NCL[facility] [id number] [address] LABORATORYCLIA [id number] [place] [address] [place] Neutrophils/100 WBC (Bld) 53.0 % Normal [facility] Comment on above: Order Comment: Speci men Type: BLOOD SPECIMENOrdering Facility: [facility] Address: [address] [place] [address] Performed By: #### 5 7021-8 ####[facility] ERA [id number] [address] LABORATORYCLIA [id number] [place] [address] [place] Nucleated RBC (Bld) [#/Vol] 10*3/uL Normal <0.01 [facility] Comment on above: Order Comment: Speci men Type: BLOOD SPECIMENOrdering Facility: [facility] Address: [address] [place] [address] Performed By: #### 5 7021-8 ####[facility] ERA [id number] [address] LABORATORYCLIA [id number] [place] [address] [place] Nucleated RBC/100 WBC (Bld) [Ratio] 0.0 /100 WBC Normal [facility] Comment on above: Order Comment: Speci men Type: BLOOD SPECIMENOrdering Facility: [facility] Address: [address] [place] [address] Performed By: #### 5 7021-8 ####[facility] MILLTOWNCLIA [id number] [address] LABORATORYCLIA [id number] [place] [address] [place] Ovalocytes LM Ql (Bld) Few Normal [facility] Comment on above: Order Comment: Speci men Type: BLOOD SPECIMENOrdering Facility: [facility] Address: [address] [place] [address] Performed By: #### 5 7021-8 ####[facility] MILLTOWNCLIA [id number] [address] LABORATORYCLIA [id number] [place] [address] [place] Platelet mean volume (Bld) [Entitic vol] 8.9 fL Low 9.0-12.7 [facility] Comment on above: Order Comment: Speci men Type: BLOOD SPECIMENOrdering Facility: [facility] Address: [address] [place] [address] Performed By: #### 5 7021-8 ####[facility]CL[facility] [id number] [address] LABORATORYCLIA [id number] [place] [address] [place] Platelets (Bld) [#/Vol] 236 10*3/uL Normal 150-400 [facility] Comment on above: Order Comment: Speci men Type: BLOOD SPECIMENOrdering Facility: [facility] Address: [address] [place] [address] Performed By: #### 5 7021-8 ####[facility] MILLTOWNCLIA [id number] [address] LABORATORYCLIA [id number] [address] Platelets Estimate (Bld) [#/Vol] Adequate Normal [facility] Comment on above: Order Comment: Speci men Type: BLOOD SPECIMENOrdering Facility: [facility] Address: [address] [place] [address] Performed By: #### 5 7021-8 ####[facility]CLIA [id number] [address] LABORATORYCLIA [id number] [place] [address] [place] RBC (Bld) [#/Vol] 3.44 10*6/uL Low 3.90-5.20 [facility] Comment on above: Order Comment: Speci men Type: BLOOD SPECIMENOrdering Facility: [facility] Address: [address] [place] [address] Performed By: #### 5 7021-8 ####[facility] ERA [id number] [address] LABORATORYCLIA [id number] [address] RED CELL MORPH Reviewed: see result s of individual morphologies Normal [facility] Comment on above: Order Comment: Speci men Type: BLOOD SPECIMENOrdering Facility: [facility] Address: [address] [place] [address] Performed By: #### 5 7021-8 ####[facility]ENTERLIA [id number] [address] LABORATORYCLIA [id number] [address] [place] WBC (Bld) [#/Vol] 1.26 10*3/uL Low 3.70-11.00 [facility] Comment on above: Order Comment: Speci men Type: BLOOD SPECIMENOrdering Facility: [facility] Address: [address] [place] [address] Result Comment: No c lot detected. Performed By: #### 5 7021-8 ####[facility] ERA [id number] [address] LABORATORYCLIA [id number] [place] [address] [place] WBC Left Shift Ql (Bld) Present Normal [facility] Comment on above: Order Comment: Speci men Type: BLOOD SPECIMENOrdering Facility: [facility] Address: [address] [place] [address] Performed By: #### 5 7021-8 ####[facility] ER [id number] [address] LABORATORYCLIA [id number] [address] [place] CNOVSPon 10-20-2024 CNOVSP Normal [facility] Cancer Ag15-3 SerPl-aCncon 0 10-20-2024 Cancer Ag 15-3 Qn 34.9 U/mL High <26.0 [facility] Comment on above: Order Comment: Speci men Type: BLOOD SPECIMENOrdering Facility: [facility] Address: [address] [place] [address] Result Comment: The CA 15-3 test methodology used is the Electrochemiluminescence Immunoassay by [employer]. Results obtained with different methods or kits cannot be used interchangeably. Performed By: #### 6 875-9, 3024-7, 3016-3, 2143-6 ####[facility] LABCLIA [id number] [place] [address] [place] Comprehensive metabolic 2000 panelon 10-20-2024 Albumin [Mass/Vol] 4.1 g/dL Normal 3.9-4.9 [facility] Comment on above: Order Comment: Speci men Type: BLOOD SPECIMENOrdering Facility: [facility] Address: [address] [place] [address] Performed By: #### 2 4323-8 ####[facility] MILLTOWNCLIA [id number] [place] [address] [place] ALP [Catalytic activity/Vol] 79 U/L Normal 34-123 [facility] Comment on above: Order Comment: Speci men Type: BLOOD SPECIMENOrdering Facility: [facility] Address: [address] [place] [address] Performed By: #### 2 4323-8 ####[facility]CL[facility] [id number] [place] [address] [place] ALT [Catalytic activity/Vol] 10 U/L Normal 7-38 [facility] Comment on above: Order Comment: Speci men Type: BLOOD SPECIMENOrdering Facility: [facility] Address: [address] [place] [address] Performed By: #### 2 4323-8 ####[facility]ENTERNCLIA [id number] [place] [address] [place] Anion gap [Moles/Vol] 13 mmol/L Normal 8-15 [facility] Comment on above: Order Comment: Speci men Type: BLOOD SPECIMENOrdering Facility: [facility] Address: [address] [place] [address] Performed By: #### 2 4323-8 ####[facility]ENTERNCLIA [id number] [place] [address] [place] AST [Catalytic activity/Vol] 14 U/L Normal 13-35 [facility] Comment on above: Order Comment: Speci men Type: BLOOD SPECIMENOrdering Facility: [facility] Address: [address] [place] [address] Performed By: #### 2 4323-8 ####[facility]ENTERNCLIA [id number] [place] [address] [place] Bilirubin [Mass/Vol] 0.3 mg/dL Normal 0.2-1.3 [facility] Comment on above: Order Comment: Speci men Type: BLOOD SPECIMENOrdering Facility: [facility] Address: [address] [place] [address] Performed By: #### 2 4323-8 ####[facility]NC[facility] [id number] [place] [address] [place] Calcium [Mass/Vol] 9.0 mg/dL Normal 8.5-10.2 [facility] Comment on above: Order Comment: Speci men Type: BLOOD SPECIMENOrdering Facility: [facility] Address: [address] [place] [address] Performed By: #### 2 4323-8 ####[facility] [id number] [place] [address] [place] Chloride [Moles/Vol] 98 mmol/L Normal 98-107 [facility] Comment on above: Order Comment: Speci men Type: BLOOD SPECIMENOrdering Facility: [facility] Address: [address] [place] [address] Performed By: #### 2 4323-8 ####[facility]NC[facility] [id number] [place] [address] [place] CO2 [Moles/Vol] 24 mmol/L Normal 22-30 [facility] Comment on above: Order Comment: Speci men Type: BLOOD SPECIMENOrdering Facility: [facility] Address: [address] [place] [address] Performed By: #### 2 4323-8 ####[facility] CENTERNCLI [id number] [place] [address] [place] Creatinine [Mass/Vol] 0.72 mg/dL Normal 0.58-0.96 [facility] Comment on above: Order Comment: Speci men Type: BLOOD SPECIMENOrdering Facility: [facility] Address: [address] [place] [address] Performed By: #### 2 4323-8 ####[facility] [id number] [place] [address] [place] eGFRcr SerPlBld CKD-EPI 2020 93 mL/min/1.73m??? Normal >=60 [facility] Comment on above: Order Comment: [place] villarreal Type: BLOOD SPECIMENOrdering Facility: [facility] Address: [address] [place] [address] Result Comment: Alayna mated Glomerular Filtration Rate (eGFR) is calculated using the 2020 CKD-EPI creatinine equation. This equation utilizes serum creatinine, sex, and age as parameters. The creatinine assay has traceable calibration to isotope dilution-mass spectrometry. Refer to KDIGO guidelines for clinical interpretation. In patients with unstable renal function, e.g. those with acute kidney injury, the eGFR may not accurately reflect actual GFR. Performed By: #### 2 4323-8 ####[facility] [id number] [place] [address] [place] Glucose [Mass/Vol] 89 mg/dL Normal 74-99 [facility] Comment on above: Order Comment: [place] villarreal Type: BLOOD SPECIMENOrdering Facility: [facility] Address: [address] [place] [address] Result Comment: The Stateless Diabetes Association (ADA) provides guidance for cutoff values for fasting glucose and random glucose. The ADA defines fasting as no caloric intake for at least 8 hours. Fasting plasma glucose results between 100 to 125 mg/dL indicate increased risk for diabetes (prediabetes).Fasting plasma glucose results greater than or equal to 126 mg/dL meet the criteria for diagnosis of diabetes. In the absence of unequivocal hyperglycemia, results should be confirmed by repeat testing. In a patient with classic symptoms of hyperglycemia or hyperglycemic crisis, random plasma glucose results greater than or equal to 200 mg/dL meet the criteria for diagnosis of diabetes.Reference: Standards of Medical Care in Diabetes 2016, Stateless Diabetes Association. Diabetes Care. 2016.39(Suppl 1). Performed By: #### 2 4323-8 ####[facility] CENTERLIA [id number] [place] [address] [place] Potassium [Moles/Vol] 3.6 mmol/L Low 3.7-5.1 [facility] Comment on above: Order Comment: Speci men Type: BLOOD SPECIMENOrdering Facility: [facility] Address: [address] [place] [address] Performed By: #### 2 4323-8 ####[facility] MILLWNCLIA [id number] [place] [address] [place] Protein [Mass/Vol] 6.6 g/dL Normal 6.3-8.0 [facility] Comment on above: Order Comment: Speci men Type: BLOOD SPECIMENOrdering Facility: [facility] Address: [address] [place] [address] Performed By: #### 2 4323-8 ####[facility] CENTERLIA [id number] [place] [address] [place] Sodium [Moles/Vol] 135 mmol/L Low 136-144 [facility] Comment on above: Order Comment: Speci men Type: BLOOD SPECIMENOrdering Facility: [facility] Address: [address] [place] [address] Performed By: #### 2 4323-8 ####[facility] CENTERTEMITOPELIA [id number] [place] [address] [place] Urea nitrogen [Mass/Vol] 11 mg/dL Normal 7-21 [facility] Comment on above: Order Comment: Speci men Type: BLOOD SPECIMENOrdering Facility: [facility] Address: [address] [place] [address] Performed By: #### 2 4323-8 ####[facility]ENTERNCLIA [id number] [place] [address] [place] Yulissa Chakraborty 10-21-19 25 Cortisol [Mass/Vol] 14.0 ug/dL Normal 4.8-19.5 [facility] Comment on above: Order Comment: Speci men Type: BLOOD SPECIMENOrdering Facility: [facility] Address: [address] [place] [address] Result Comment: Prov ided reference range is from 6-10 AM sample collection time.Cortisol Reference Range: 6-10 AM = 4.8-19.5 ug/dL, 4-8 PM = 2.5-11.9 ug/dL Performed By: #### 6 875-9, 3024-7, 3016-3, 2142-6 ####[facility] LABCLIA [id number] [place] [id number] [place] T4 Free SerPl-mCncon 025 Free T4 [Mass/Vol] 1.4 ng/dL Normal 0.9-1.7 [facility] Comment on above: Order Comment: Speci men Type: BLOOD SPECIMENOrdering Facility: [facility] Address: [address] [place] [address] Performed By: #### 6 875-9, 3024-7, 3016-3, 2142-6 ####[facility] LABCLIA [id number] [place] [id number] [place] TSH SerPl-aCncon 10-20-2024 TSH Qn 2.780 m[IU]/L Normal 0.270-4.20 0 [facility] Comment on above: Order Comment: Speci men Type: BLOOD SPECIMENOrdering Facility: [facility] Address: [address] [place] [address] Performed By: #### 6 875-9, 3024-7, 3016-3, 6 ####[facility] LABCLIA [id number] [place] [id number] [place] CBC W Auto Differential pane l (Bld)on 10-13-2024 Basophils (Bld) [#/Vol] 0.30 10*3/uL High <0.11 [facility] Comment on above: Order Comment: Speci men Type: BLOOD SPECIMENOrdering Facility: [facility] Address: [address] [place] [address] Performed By: #### 5 7021-8 ####[facility] OMARTOWNCLIA [id number] [address] LABORATORYCLIA [id number] [place] [address] [place] Basophils/100 WBC (Bld) 1.0 % Normal [facility] Comment on above: Order Comment: Speci men Type: BLOOD SPECIMENOrdering Facility: [facility] Address: [address] [place] [address] Performed By: #### 5 7021-8 ####[facility]AWNCLIA [id number] [address] LABORATORYCLIA [id number] [address] STATES OF [facility] Differential cell count method Nom (Bld) Manual Normal [facility] Comment on above: Order Comment: Speci men Type: BLOOD SPECIMENOrdering Facility: [facility] Address: [address] [place] [address] Performed By: #### 5 7021-8 ####[facility]CL[facility] [id number] [address] LABORATORYCLIA [id number] [place] [address] [place] Eosinophils (Bld) [#/Vol] 0.89 10*3/uL High <0.46 [facility] Comment on above: Order Comment: Speci men Type: BLOOD SPECIMENOrdering Facility: [facility] Address: [address] [place] [address] Performed By: #### 5 7021-8 ####[facility] MILLWNCLIA [id number] [address] LABORATORYCLIA [id number] [place] [address] [place] Eosinophils/100 WBC (Bld) 3.0 % Normal [facility] Comment on above: Order Comment: Speci men Type: BLOOD SPECIMENOrdering Facility: [facility] Address: [address] [place] [address] Performed By: #### 5 7021-8 ####[facility] MILLWNCLIA [id number] [address] LABORATORYIA [id number] [place] [address] [place] Erythrocyte distribution width (RBC) [Ratio] 15.3 % High 11.5-15.0 [facility] Comment on above: Order Comment: Speci men Type: BLOOD SPECIMENOrdering Facility: [facility] Address: [address] [place] [address] Performed By: #### 5 7021-8 ####[facility]CL[facility] [id number] [address] LABORATORYCLIA [id number] [place] [address] [place] Hematocrit (Bld) [Volume fraction] 32.7 % Low 36.0-46.0 [facility] Comment on above: Order Comment: Speci men Type: BLOOD SPECIMENOrdering Facility: [facility] Address: [address] [place] [address] Performed By: #### 5 7021-8 ####[facility] MILLTOWNCLIA [id number] [address] LABORATORYCLIA [id number] [place] [address] [place] Hemoglobin (Bld) [Mass/Vol] 11.1 g/dL Low 11.5-15.5 [facility] Comment on above: Order Comment: Speci men Type: BLOOD SPECIMENOrdering Facility: [facility] Address: [address] [place] [address] Performed By: #### 5 7021-8 ####[facility] [id number] [address] LABORATORYCLIA [id number] [place] [address] [place] Lymphocytes (Bld) [#/Vol] 0.30 10*3/uL Low 1.00-4.00 [facility] Comment on above: Order Comment: Speci men Type: BLOOD SPECIMENOrdering Facility: [facility] Address: [address] [place] [address] Performed By: #### 5 7021-8 ####[facility] ERA [id number] [address] LABORATORYCLIA [id number] [place] [address] [place] Lymphocytes/100 WBC (Bld) 1.0 % Normal [facility] Comment on above: Order Comment: Speci men Type: BLOOD SPECIMENOrdering Facility: [facility] Address: [address] [place] [address] Performed By: #### 5 7021-8 ####[facility] CENTERLIA [id number] [address] LABORATORYCLIA [id number] [place] [address] [place] MCH (RBC) [Entitic mass] 30.2 pg Normal 26.0-34.0 [facility] Comment on above: Order Comment: Speci men Type: BLOOD SPECIMENOrdering Facility: [facility] Address: [address] [place] [address] Performed By: #### 5 7021-8 ####[facility] MILLTOWNCLIA [id number] [address] LABORATORYCLIA [id number] [address] MCHC (RBC) [Mass/Vol] 33.9 g/dL Normal 30.5-36.0 [facility] Comment on above: Order Comment: Speci men Type: BLOOD SPECIMENOrdering Facility: [facility] Address: [address] [place] [address] Performed By: #### 5 7021-8 ####[facility] MILLTOWNCLIA [id number] [address] LABORATORYCLIA [id number] [address] [place] [facility] MCV (RBC) [Entitic vol] 88.9 fL Normal 80.0-100.0 [facility] Comment on above: Order Comment: Speci men Type: BLOOD SPECIMENOrdering Facility: [facility] Address: [address] [place] [address] Performed By: #### 5 7021-8 ####[facility] MILLTOWNCLIA [id number] [address] LABORATORYCLIA [id number] [address] [place] [facility] Metamyelocytes/100 WBC (Bld) 1.0 % Normal [facility] Comment on above: Order Comment: Speci men Type: BLOOD SPECIMENOrdering Facility: [facility] Address: [address] [place] [address] Performed By: #### 5 7021-8 ####[facility] MILLTOWNCLIA [id number] [address] LABORATORYCLIA [id number] [place] [address] [place] Monocytes (Bld) [#/Vol] 2.97 10*3/uL High <0.87 [facility] Comment on above: Order Comment: Speci men Type: BLOOD SPECIMENOrdering Facility: [facility] Address: [address] [place] [address] Performed By: #### 5 7021-8 ####[facility] CENTERLIA [id number] [address] LABORATORYCLIA [id number] [place] [address] [place] Monocytes/100 WBC (Bld) 10.0 % Normal [facility] Comment on above: Order Comment: Speci men Type: BLOOD SPECIMENOrdering Facility: [facility] Address: [address] [place] [address] Performed By: #### 5 7021-8 ####[facility] [id number] [address] LABORATORYCLIA [id number] [place] [address] [place] MYELO% 5.0 % Normal [facility] Comment on above: Order Comment: Speci men Type: BLOOD SPECIMENOrdering Facility: [facility] Address: [address] [place] [address] Performed By: #### 5 7021-8 ####[facility] [id number] [address] LABORATORYCLIA [id number] [place] [address] [place] Neutrophils (Bld) [#/Vol] 23.42 10*3/uL High 1.45-7.50 [facility] Comment on above: Order Comment: Speci men Type: BLOOD SPECIMENOrdering Facility: [facility] Address: [address] [place] [address] Performed By: #### 5 7021-8 ####[facility] MILLTOWNCLIA [id number] [address] LABORATORYCLIA [id number] [place] [address] [place] Neutrophils/100 WBC (Bld) 79.0 % Normal [facility] Comment on above: Order Comment: Speci men Type: BLOOD SPECIMENOrdering Facility: [facility] Address: [address] [facility] [place] [address] Performed By: #### 5 7021-8 ####[facility] MILLTOWNCLIA [id number] [address] LABORATORYCLIA [id number] [place] [address] [place] Nucleated RBC (Bld) [#/Vol] 10*3/uL Normal <0.01 [facility] Comment on above: Order Comment: Speci men Type: BLOOD SPECIMENOrdering Facility: [facility] Address: [address] [place] [address] Performed By: #### 5 7021-8 ####[facility] BOULEVARDTOWNCLIA [id number] [address] LABORATORYCLIA [id number] [place] [address] [place] Nucleated RBC/100 WBC (Bld) [Ratio] 0.0 /100 WBC Normal [facility] Comment on above: Order Comment: Speci men Type: BLOOD SPECIMENOrdering Facility: [facility] Address: [address] [place] [address] Performed By: #### 5 7021-8 ####[facility] MILLTOWNCLIA [id number] [address] LABORATORYCLIA [id number] [place] [address] [place] Ovalocytes LM Ql (Bld) Few Normal [facility] Comment on above: Order Comment: Speci men Type: BLOOD SPECIMENOrdering Facility: [facility] Address: [address] [place] [address] Performed By: #### 5 7021-8 ####[facility] [id number] [address] LABORATORYCLIA [id number] [place] [address] [place] Platelet mean volume (Bld) [Entitic vol] 9.0 fL Normal 9.0-12.7 [facility] Comment on above: Order Comment: Speci men Type: BLOOD SPECIMENOrdering Facility: [facility] Address: [address] [place] [address] Performed By: #### 5 7021-8 ####[facility] CENTERLIA [id number] [address] LABORATORYCLIA [id number] [place] [address] [place] Platelets (Bld) [#/Vol] 390 10*3/uL Normal 150-400 [facility] Comment on above: Order Comment: Speci men Type: BLOOD SPECIMENOrdering Facility: [facility] Address: [address] [place] [address] Result Comment: No c lot detected. Performed By: #### 5 7021-8 ####[facility] CENTERLIA [id number] [address] LABORATORYCLIA [id number] [place] [address] [place] Platelets Estimate (Bld) [#/Vol] Adequate Normal [facility] Comment on above: Order Comment: Speci men Type: BLOOD SPECIMENOrdering Facility: [facility] Address: [address] [place] [address] Performed By: #### 5 7021-8 ####[facility] BOULEVARDDAVIDWNCLIA [id number] [address] LABORATORYCLIA [id number] [place] [address] [place] RBC (Bld) [#/Vol] 3.68 10*6/uL Low 3.90-5.20 [facility] Comment on above: Order Comment: Speci men Type: BLOOD SPECIMENOrdering Facility: [facility] Address: [address] [place] [address] Performed By: #### 5 7021-8 ####[facility]ENTERNCA [id number] [address] LABORATORYIA [id number] [place] [address] [place] RED CELL MORPH Reviewed: see result s of individual morphologies Normal [facility] Comment on above: Order Comment: Speci men Type: BLOOD SPECIMENOrdering Facility: [facility] Address: [address] [place] [address] Performed By: #### 5 7021-8 ####[facility]ENTERNCA [id number] [address] LABORATORYIA [id number] [place] [address] [place] Toxic granules LM Ql (Bld) Present Normal [facility] Comment on above: Order Comment: Speci men Type: BLOOD SPECIMENOrdering Facility: [facility] Address: [facility] [place] [address] Performed By: #### 5 7021-8 ####[facility]CL[facility] [id number] [address] LABORATORYCLIA [id number] [place] [address] [place] WBC (Bld) [#/Vol] 29.65 10*3/uL High 3.70-11.00 [facility] Comment on above: Order Comment: Speci men Type: BLOOD SPECIMENOrdering Facility: [facility] Address: [address] [place] [address] Performed By: #### 5 7021-8 ####[facility] CENTERLIA [id number] [address] LABORATORYCLIA [id number] [address] [place] WBC Left Shift Ql (Bld) Present Normal [facility] Comment on above: Order Comment: Speci men Type: BLOOD SPECIMENOrdering Facility: [facility] Address: [address] [place] [address] Performed By: #### 5 7021-8 ####[facility] ERA [id number] [address] LABORATORYCLIA [id number] [address] [place] CNPNon 10-13-2024 CNPN Normal [facility] NCS and/or EMG Patienton NCS and/or EMG Patient [facility] Pulmonary Services/Neurology [address] [place] [address] MR#: [id number] Acct: [id number] Name: Everette HERBERT Rep #: [id number] : 1960 64 From: Bishnu Harrison MD Referring Dr: Santana Arellano NP 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 Nerve Conduction Studies Summary: Nerve conduction studies performed in the left upper extremity were within normal ranges. Needle Examination Summary: Needle examination of select muscles of the left upper extremity demonstrated increased insertional activity and spontaneous activity (positive sharp waves and fibrillation potentials) in the left d eltoid, triceps, extensor carpi radialis, extensor carpi ulnaris, extensor indicis proprius muscles. There was a higher proportion of motor unit action potentials with reduced recruitment, increased amplitude, increased duration, and polyphasia in the left triceps, extensor carpi radialis, extensor carpi ulnaris, extensor indicis proprius muscles Impression: This is an abnormal study. There is electrodiagnostic evidence of a left brachial plexopathy with predominant involvement of the left posterior cord. Multi Select Codes Neurology Neurology Interp Codes: 61229-98 Musc test done w/n test comp (interp) (1) and 19171-73 Nrv cndj test 7-8 studies (interp) 10/13/24 1521 Date Bishnu Harrison MD CC: Santana GREENWOOD McMorrow; Dr. Bishnu Harrison MD; Dr. Hellen Lafleur MD Date Dictated: 10/13/241515 Date Transcribed: 10/13/241515 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: Signed [facility] 10-09-2024 [facility] Supplemental Reporton 2024 Supplemental Report . Pathology Reports Accession: Collected Date/Time: Received Date/Time: Pathologist: [id number] 08/26/2024 14:57 EDT 08/27/2024 14:04 EDT MD MARY TOWNSEND Supplemental Report SUPPLEMENTAL: [employer] [address] [place] [address] [employer]ek (CDx) NGS Results Complete report scanned into chart. Verified by Diagnostic interpretation performed at [facility] MARY TOWNSEND MD Sign out Date: 10/07/2024 16:19 Performing Lab: [facility], [address] [place] [address] Pathology Dept Final Surgical Pathology Report DIAGNOSIS: BREAST, RIGHT, 1-2 O'CLOCK, CORE BIOPSY: - ANGIOSARCOMA Comment: Stains are positive in the tumor cells for CD31 and CD34 and show scattered weak positive staining for c-Myc. Ki-67 shows 70% positive staining in the tumor cells. Cytokeratin AE1/3 is negative. CLINICAL INFORMATION: R BREAST MASS Procedure: U/S BX SPECIMEN: A 2.8cm RIGHT BREAST MASS 1-2:00 GROSS DESCRIPTION: All parts labelled with patient name and [id number] Received in formalin labelled undesignated in the container" Are multiple cylindrical breast core biopsies and core fragments ranging from less than 0.1 to 1 cm. Specimen removed from patient @1457. Placed in Formalin Fixative @1508. Cold Ischemia time 11 minutes. Total time in formalin (in processor) 1 hrs. Total Time in Formalin Fixative 34.5 hrs. TS-1 Mirna Arroyo, Pathologists' Community Health Worker (ASCP) Performed by MIRNA ARROYO MICROSCOPIC DESCRIPTION: The microscopic examination is performed, except in the case of Gross Only. Pathology Reports Accession: Collected Date/Time: Received Date/Time: Pathologist: [id number] 08/26/2024 14:57 EDT 08/27/2024 14:04 EDT MD MARY TOWNSEND Verified by Pathology Report verified by [facility] MARY TOWNSEND MD Sign out Date: 09/02/2024 13:54 Performing Lab: [facility], [address] [place] [address] Pathology Dept Disclaimer If ancillary studies were utilized, the following Laboratory Developed Test (LDT) disclaimer will apply: Under CLIA requirements, [facility] Pathology Laboratory is qualified to perform high complexity testing. For all ancillary stains, positive and negative controls stain appropriately. Performance characteristics of immunohistochemical and chromogenic in-situ hybridization tests have been determined by [facility] Pathology Laboratory. These tests are used for clinical purposes, They should not be regarded as investigational or for research. Normal [facility] CBC W Auto Differential pane l (Bld)on 10-06-2024 Basophils (Bld) [#/Vol] 0.04 10*3/uL Normal <0.11 [facility] Comment on above: Order Comment: Speci men Type: BLOOD SPECIMENOrdering Facility: [facility] Address: [address] [place] [address] Performed By: #### 5 7021-8 ####[facility] BOULEVARDTOWNCLIA [id number] [address] LABORATORYCLIA [id number] [place] [address] [place] Basophils/100 WBC (Bld) 2.0 % Normal [facility] Comment on above: Order Comment: Speci men Type: BLOOD SPECIMENOrdering Facility: [facility] Address: [address] [place] [address] Performed By: #### 5 7021-8 ####[facility] [id number] [address] LABORATORYCLIA [id number] [address] Dacrocytes LM Ql (Bld) Few Normal [facility] Comment on above: Order Comment: Speci men Type: BLOOD SPECIMENOrdering Facility: [facility] Address: [address] [place] [address] Performed By: #### 5 7021-8 ####[facility] [id number] [address] LABORATORYCLIA [id number] [address] [place] Differential cell count method Nom (Bld) Manual Normal [facility] Comment on above: Order Comment: Speci men Type: BLOOD SPECIMENOrdering Facility: [facility] Address: [address] [place] [address] Performed By: #### 5 7021-8 ####[facility] BOULEVARDTOWNCLIA [id number] [address] LABORATORYCLIA [id number] [place] [address] [place] Eosinophils (Bld) [#/Vol] 0.17 10*3/uL Normal <0.46 [facility] Comment on above: Order Comment: Speci men Type: BLOOD SPECIMENOrdering Facility: [facility] Address: [address] [place] [address] Performed By: #### 5 7021-8 ####[facility] MILLTOWNCLIA [id number] [address] LABORATORYCLIA [id number] [place] [address] [place] Eosinophils/100 WBC (Bld) 9.0 % Normal [facility] Comment on above: Order Comment: Speci men Type: BLOOD SPECIMENOrdering Facility: [facility] Address: [address] [place] [address] Performed By: #### 5 7021-8 ####[facility] [id number] [address] LABORATORYCLIA [id number] [place] [address] [place] Erythrocyte distribution width (RBC) [Ratio] 14.4 % Normal 11.5-15.0 [facility] Comment on above: Order Comment: Speci men Type: BLOOD SPECIMENOrdering Facility: [facility] Address: [address] [place] [address] Performed By: #### 5 7021-8 ####[facility] MILLTOWNCLIA [id number] [address] LABORATORYCLIA [id number] [place] [address] [place] Hematocrit (Bld) [Volume fraction] 32.7 % Low 36.0-46.0 [facility] Comment on above: Order Comment: Speci men Type: BLOOD SPECIMENOrdering Facility: [facility] Address: [address] [place] [address] Performed By: #### 5 7021-8 ####[facility] MILLTOWNCLIA [id number] [address] LABORATORYCLIA [id number] [place] [address] [place] Hemoglobin (Bld) [Mass/Vol] 11.0 g/dL Low 11.5-15.5 [facility] Comment on above: Order Comment: Speci men Type: BLOOD SPECIMENOrdering Facility: [facility] Address: [address] [place] [address] Performed By: #### 5 7021-8 ####[facility] BOULEVARDTOWNCLIA [id number] [address] LABORATORYCLIA [id number] [place] [address] [place] Lymphocytes (Bld) [#/Vol] 0.45 10*3/uL Low 1.00-4.00 [facility] Comment on above: Order Comment: Speci men Type: BLOOD SPECIMENOrdering Facility: [facility] Address: [address] [place] [address] Performed By: #### 5 7021-8 ####[facility] MILLTOWNCLIA [id number] [address] LABORATORYCLIA [id number] [place] [address] [place] Lymphocytes/100 WBC (Bld) 24.0 % Normal [facility] Comment on above: Order Comment: Speci men Type: BLOOD SPECIMENOrdering Facility: [facility] Address: [address] [place] [address] Performed By: #### 5 7021-8 ####[facility] MILLTOWNCLIA [id number] [address] LABORATORYCLIA [id number] [place] [address] [place] MCH (RBC) [Entitic mass] 29.6 pg Normal 26.0-34.0 [facility] Comment on above: Order Comment: Speci men Type: BLOOD SPECIMENOrdering Facility: [facility] Address: [address] [place] [address] Performed By: #### 5 7021-8 ####[facility] MILLTOWNCLIA [id number] [address] LABORATORYCLIA [id number] [address] [place] MCHC (RBC) [Mass/Vol] 33.6 g/dL Normal 30.5-36.0 [facility] Comment on above: Order Comment: Speci men Type: BLOOD SPECIMENOrdering Facility: [facility] Address: [address] [place] [address] Performed By: #### 5 7021-8 ####[facility] BOULEVARDTOWNCLIA [id number] [address] LABORATORYCLIA [id number] [place] [address] [place] MCV (RBC) [Entitic vol] 87.9 fL Normal 80.0-100.0 [facility] Comment on above: Order Comment: Speci men Type: BLOOD SPECIMENOrdering Facility: [facility] Address: [address] [place], [place] [address] Performed By: #### 5 7021-8 ####[facility] MILLTOWNCLIA [id number] [address] LABORATORYCLIA [id number] [place] [address] [place] Monocytes (Bld) [#/Vol] 0.32 10*3/uL Normal <0.87 [facility] Comment on above: Order Comment: Speci men Type: BLOOD SPECIMENOrdering Facility: [facility] Address: [address] [place] [address] Performed By: #### 5 7021-8 ####[facility]NVL[facility] [id number] [address] LABORATORYCLIA [id number] [place] [address] [place] Monocytes/100 WBC (Bld) 17.0 % Normal [facility] Comment on above: Order Comment: Speci men Type: BLOOD SPECIMENOrdering Facility: [facility] Address: [address] [place] [address] Performed By: #### 5 7021-8 ####[facility] ERA [id number] [address] LABORATORYCLIA [id number] [place] [address] [place] Neutrophils (Bld) [#/Vol] 0.90 10*3/uL Low 1.45-7.50 [facility] Comment on above: Order Comment: Speci men Type: BLOOD SPECIMENOrdering Facility: [facility] Address: [address] [place] [address] Performed By: #### 5 7021-8 ####[facility] CENTERLIA [id number] [address] LABORATORYCLIA [id number] [place] [address] [place] Neutrophils/100 WBC (Bld) 48.0 % Normal [facility] Comment on above: Order Comment: Speci men Type: BLOOD SPECIMENOrdering Facility: [facility] Address: [address] [place] [address] Performed By: #### 5 7021-8 ####[facility] MILLTOWNCLIA [id number] [address] LABORATORYCLIA [id number] [place] [address] [place] Nucleated RBC (Bld) [#/Vol] 10*3/uL Normal <0.01 [facility] Comment on above: Order Comment: Speci men Type: BLOOD SPECIMENOrdering Facility: [facility] Address: [address] [place] [address] Performed By: #### 5 7021-8 ####[facility] [id number] [address] LABORATORYCLIA [id number] [place] [address] [place] Nucleated RBC/100 WBC (Bld) [Ratio] 0.0 /100 WBC Normal [facility] Comment on above: Order Comment: Speci men Type: BLOOD SPECIMENOrdering Facility: [facility] Address: [address] [place] [address] Performed By: #### 5 7021-8 ####[facility] [id number] [address] LABORATORYCLIA [id number] [place] [address] [place] Ovalocytes LM Ql (Bld) Few Normal [facility] Comment on above: Order Comment: Speci men Type: BLOOD SPECIMENOrdering Facility: [facility] Address: [address] [place] [address] Performed By: #### 5 7021-8 ####[facility] [id number] [address] LABORATORYCLIA [id number] [place] [address] [place] Platelet mean volume (Bld) [Entitic vol] 8.7 fL Low 9.0-12.7 [facility] Comment on above: Order Comment: Speci men Type: BLOOD SPECIMENOrdering Facility: [facility] Address: [address] [place] [address] Performed By: #### 5 7021-8 ####[facility] MILLWNCLIA [id number] [address] LABORATORYCLIA [id number] [place] [address] [place] Platelets (Bld) [#/Vol] 256 10*3/uL Normal 150-400 [facility] Comment on above: Order Comment: Speci men Type: BLOOD SPECIMENOrdering Facility: [facility] Address: [address] [place] [address] Performed By: #### 5 7021-8 ####[facility] CENTERLIA [id number] [address] LABORATORYCLIA [id number] [place] [address] [place] Platelets Estimate (Bld) [#/Vol] Adequate Normal [facility] Comment on above: Order Comment: Speci men Type: BLOOD SPECIMENOrdering Facility: [facility] Address: [address] [place] [address] Performed By: #### 5 7021-8 ####[facility] CENTERLIA [id number] [address] LABORATORYIA [id number] [place] [address] [place] RBC (Bld) [#/Vol] 3.72 10*6/uL Low 3.90-5.20 [facility] Comment on above: Order Comment: Speci men Type: BLOOD SPECIMENOrdering Facility: [facility] Address: [address] [place] [address] Performed By: #### 5 7021-8 ####[facility] [id number] [address] LABORATORYCLIA [id number] [place] [address] [place] RED CELL MORPH Reviewed: see result s of individual morphologies Normal [facility] Comment on above: Order Comment: Speci men Type: BLOOD SPECIMENOrdering Facility: [facility] Address: [address] [place] [address] Performed By: #### 5 7021-8 ####[facility] [id number] [address] LABORATORYCLIA [id number] [place] [address] [place] WBC (Bld) [#/Vol] 1.88 10*3/uL Low 3.70-11.00 [facility] Comment on above: Order Comment: Speci men Type: BLOOD SPECIMENOrdering Facility: [facility] Address: [address] [place] [address] Result Comment: No c lot detected. Performed By: #### 5 7021-8 ####[facility] [id number] [address] LABORATORYIA [id number] [place] [address] [place] CNPNon 10-06-2024 CNPN Normal [facility] CNPNon 10-05-2024 CNPN Normal [facility] CBC W Auto Differential pane l (Bld)on 09-29-2024 Basophils (Bld) [#/Vol] 0.05 10*3/uL Normal <0.11 [facility] Comment on above: Order Comment: Speci men Type: BLOOD SPECIMENOrdering Facility: [facility] Address: [address] [place], [place] [address] Performed By: #### 5 7021-8 ####[facility] MILLWNCLIA [id number] [place] [address] [place] Basophils/100 WBC (Bld) 1.2 % Normal [facility] Comment on above: Order Comment: Speci men Type: BLOOD SPECIMENOrdering Facility: [facility] Address: [address] [place] [address] Performed By: #### 5 7021-8 ####[facility] CENTERTEMITOPELIA [id number] [place] [address] [place] Differential cell count method Nom (Bld) Auto Normal [facility] Comment on above: Order Comment: Speci men Type: BLOOD SPECIMENOrdering Facility: [facility] Address: [address] [place] [address] Performed By: #### 5 7021-8 ####[facility] CENTERLIA [id number] [place] [address] [place] Eosinophils (Bld) [#/Vol] 0.41 10*3/uL Normal <0.46 [facility] Comment on above: Order Comment: Speci men Type: BLOOD SPECIMENOrdering Facility: [facility] Address: [address] [place] [address] Performed By: #### 5 7021-8 ####[facility] CENTERLIA [id number] [place] [address] [place] Eosinophils/100 WBC (Bld) 10.0 % Normal [facility] Comment on above: Order Comment: Speci men Type: BLOOD SPECIMENOrdering Facility: [facility] Address: [address] [place] [address] Performed By: #### 5 7021-8 ####[facility] CENTERNCLIA [id number] [place] [address] [place] Erythrocyte distribution width (RBC) [Ratio] 14.2 % Normal 11.5-15.0 [facility] Comment on above: Order Comment: Speci men Type: BLOOD SPECIMENOrdering Facility: [facility] Address: [address] [place] [address] Performed By: #### 5 7021-8 ####[facility] [id number] [place] [address] [place] Hematocrit (Bld) [Volume fraction] 33.4 % Low 36.0-46.0 [facility] Comment on above: Order Comment: Speci men Type: BLOOD SPECIMENOrdering Facility: [facility] Address: [address] [place] [address] Performed By: #### 5 7021-8 ####[facility] [id number] [place] [address] [place] Hemoglobin (Bld) [Mass/Vol] 11.4 g/dL Low 11.5-15.5 [facility] Comment on above: Order Comment: Speci men Type: BLOOD SPECIMENOrdering Facility: [facility] Address: [address] [place] [address] Performed By: #### 5 7021-8 ####[facility] [id number] [place] [address] [place] Immature granulocytes (Bld) [#/Vol] 0.03 10*3/uL Normal <0.10 [facility] Comment on above: Order Comment: Speci men Type: BLOOD SPECIMENOrdering Facility: [facility] Address: [address] [place] [address] Performed By: #### 5 7021-8 ####[facility] [id number] [place] [address] [place] Immature granulocytes/100 WBC (Bld) 0.7 % Normal [facility] Comment on above: Order Comment: Speci men Type: BLOOD SPECIMENOrdering Facility: [facility] Address: [address] [place] [address] Performed By: #### 5 7021-8 ####[facility] OMARLOS ANGELESTEMITOPEBrandee [id number] [place] [address] [place] Lymphocytes (Bld) [#/Vol] 0.54 10*3/uL Low 1.00-4.00 [facility] Comment on above: Order Comment: Speci men Type: BLOOD SPECIMENOrdering Facility: [facility] Address: [address] [place] [address] Performed By: #### 5 7021-8 ####[facility] [id number] [place] [address] [place] Lymphocytes/100 WBC (Bld) 13.1 % Normal [facility] Comment on above: Order Comment: Speci men Type: BLOOD SPECIMENOrdering Facility: [facility] Address: [address] [place] [address] Performed By: #### 5 7021-8 ####[facility] [id number] [place] [address] [place] MCH (RBC) [Entitic mass] 29.8 pg Normal 26.0-34.0 [facility] Comment on above: Order Comment: Speci men Type: BLOOD SPECIMENOrdering Facility: [facility] Address: [address] [place] [address] Performed By: #### 5 7021-8 ####[facility] [id number] [place] [address] [place] MCHC (RBC) [Mass/Vol] 34.1 g/dL Normal 30.5-36.0 [facility] Comment on above: Order Comment: Speci men Type: BLOOD SPECIMENOrdering Facility: [facility] Address: [address] [place] [address] Performed By: #### 5 7021-8 ####[facility] MILLWNCLIA [id number] [place] [address] [place] MCV (RBC) [Entitic vol] 87.4 fL Normal 80.0-100.0 [facility] Comment on above: Order Comment: Speci men Type: BLOOD SPECIMENOrdering Facility: [facility] Address: [address] [place] [address] Performed By: #### 5 7021-8 ####[facility]ENTERNCLIA [id number] [place] [address] [place] Monocytes (Bld) [#/Vol] 0.49 10*3/uL Normal <0.87 [facility] Comment on above: Order Comment: Speci men Type: BLOOD SPECIMENOrdering Facility: [facility] Address: [address] [place] [address] Performed By: #### 5 7021-8 ####[facility] [id number] [place] [address] [place] Monocytes/100 WBC (Bld) 11.9 % Normal [facility] Comment on above: Order Comment: Speci men Type: BLOOD SPECIMENOrdering Facility: [facility] Address: [address] [place] [address] Performed By: #### 5 7021-8 ####[facility] MED[facility] CENTERLIA [id number] [place] [address] [place] Neutrophils (Bld) [#/Vol] 2.59 10*3/uL Normal 1.45-7.50 [facility] Comment on above: Order Comment: Speci men Type: BLOOD SPECIMENOrdering Facility: [facility] Address: [address] [place] [address] Performed By: #### 5 7021-8 ####[facility]ENTERNCLIA [id number] [place] [address] [place] Neutrophils/100 WBC (Bld) 63.1 % Normal [facility] Comment on above: Order Comment: Speci men Type: BLOOD SPECIMENOrdering Facility: [facility] Address: [address] [place] [address] Performed By: #### 5 7021-8 ####[facility]ENTERNC[facility]AV[facility] [id number] [place] [address] [place] Nucleated RBC (Bld) [#/Vol] 10*3/uL Normal <0.01 [facility] Comment on above: Order Comment: Speci men Type: BLOOD SPECIMENOrdering Facility: [facility] Address: [address] [place] [address] Performed By: #### 5 7021-8 ####[facility] [id number] [place] [address] [place] Nucleated RBC/100 WBC (Bld) [Ratio] 0.0 /100 WBC Normal [facility] Comment on above: Order Comment: Speci men Type: BLOOD SPECIMENOrdering Facility: [facility] Address: [address] [place] [address] Performed By: #### 5 7021-8 ####[facility]NC[facility] [id number] [place] [address] [place] Platelet mean volume (Bld) [Entitic vol] 8.7 fL Low 9.0-12.7 [facility] Comment on above: Order Comment: Speci men Type: BLOOD SPECIMENOrdering Facility: [facility] Address: [address] [place] [address] Performed By: #### 5 7021-8 ####[facility] [id number] [place] [address] [place] Platelets (Bld) [#/Vol] 245 10*3/uL Normal 150-400 [facility] Comment on above: Order Comment: Speci men Type: BLOOD SPECIMENOrdering Facility: [facility] Address: [address] [place] [address] Performed By: #### 5 7021-8 ####[facility] OMARLOS ANGELESNCELICIAA [id number] [place] [address] [place] RBC (Bld) [#/Vol] 3.82 10*6/uL Low 3.90-5.20 [facility] Comment on above: Order Comment: Speci men Type: BLOOD SPECIMENOrdering Facility: [facility] Address: [address] [place] [address] Performed By: #### 5 7021-8 ####[facility] OMARLOS ANGELESNCLIA [id number] [place] [address] [place] WBC (Bld) [#/Vol] 4.11 10*3/uL Normal 3.70-11.00 [facility] Comment on above: Order Comment: Speci men Type: BLOOD SPECIMENOrdering Facility: [facility] Address: [address] [place] [address] Performed By: #### 5 7021-8 ####[facility] MED[facility] CENTERELICIAA [id number] [place] [address] [place] CNPNon 09-29-2024 CNPN Normal [facility] CNOVSPon 09-28-2024 CNOVSP Normal [facility] CNOVon 09-24-2024 CNOV Normal [facility] CNPNon 09-24-2024 CNPN Normal [facility] CNPNon 09-22-2024 CNPN Normal [facility] CT CHEST W IVCONon CT CHEST W IVCON * * *Final Report* * * DATE OF EXAM: Sep 22 2024 7:42PM [facility] [id number] - CT CHEST W IVCON / PROCEDURE REASON: multiple diagnoses * * * * Physician Interpretation * * * * EXAMINATION: CHEST CT WITH CONTRAST CLINICAL HISTORY: Left breast cancer Technique: Spiral CT acquisition of the chest from the thoracic inlet to the upper abdomen following IV contrast. MQ: CTCW_6 Contrast: 50 mL Omnipaque [address] Radiation dose: Integrated Dose-length product (DLP) for this visit = 128.8 mGy*cm CT Dose Reduction Employed: Automated exposure control(AEC) and iterative recon Comparison: CT chest 05/25/2024 RESULT: Limitations: None. Lines, tubes, and devices: None. Lung parenchyma and airways: Apical scarring. No consolidation. No suspicious pulmonary nodule. The central airways are patent. Pleural space: No pleural effusion. Lower neck, lymph nodes, and mediastinum: Subcentimeter thyroid nodules. No lymphadenopathy in the supraclavicular, axillary, mediastinal, or hilar regions. Heart, pericardium, and thoracic vessels: The thoracic aorta and main pulmonary artery are normal in caliber. Heart size within normal limits. Bones and soft tissues: Left axillary node dissection. Bilateral breast implants. Left breast skin thickening probably due to post treatment changes. No acute osseous findings. Localizer images: No additional findings. IMPRESSION: No evidence of metastatic disease. 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: AMALIA Transcribe Date/Time: Sep 23 2024 8:02A Dictated by : CRISTIANA SAPP MD This examination was interpreted and the report reviewed and electronically signed by: CRISTIANA SAPP MD on Sep 23 2024 8:06AM EST [id number] [facility] CBC W Auto Differential pane l (Bld)on 09-21-2024 Basophils (Bld) [#/Vol] 0.08 10*3/uL Normal <0.11 [facility] Comment on above: Order Comment: Speci men Type: BLOOD SPECIMENOrdering Facility: [facility] Address: [address] [place] [address] Performed By: #### 5 7021-8 ####[facility] LABCLIA [id number] [place] [address] [place] Basophils/100 WBC (Bld) 1.8 % Normal [facility] Comment on above: Order Comment: Speci men Type: BLOOD SPECIMENOrdering Facility: [facility] Address: [address] [place] [address] Performed By: #### 5 7021-8 ####[facility] LABCLIA [id number] [address], [place] [address] [place] Differential cell count method Nom (Bld) Auto Normal [facility] Comment on above: Order Comment: Speci men Type: BLOOD SPECIMENOrdering Facility: [facility] Address: [address] [place] [address] Performed By: #### 5 7021-8 ####[facility] LABCLIA [id number] [address], [place] [address] [place] Eosinophils (Bld) [#/Vol] 0.14 10*3/uL Normal <0.46 [facility] Comment on above: Order Comment: Speci men Type: BLOOD SPECIMENOrdering Facility: [facility] Address: [address] [place] [address] Performed By: #### 5 7021-8 ####[facility] LABCLIA [id number] [place] [address] [place] Eosinophils/100 WBC (Bld) 3.2 % Normal [facility] Comment on above: Order Comment: Speci men Type: BLOOD SPECIMENOrdering Facility: [facility] Address: [address] [place] [address] Performed By: #### 5 7021-8 ####[facility] LABCLIA [id number] [place] [address] [place] Erythrocyte distribution width (RBC) [Ratio] 14.3 % Normal 11.5-15.0 [facility] Comment on above: Order Comment: Speci men Type: BLOOD SPECIMENOrdering Facility: [facility] Address: [address] [place] [address] Performed By: #### 5 7021-8 ####[facility] LABCLIA [id number] [address], [facility] [place] Hematocrit (Bld) [Volume fraction] 37.1 % Normal 36.0-46.0 [facility] Comment on above: Order Comment: Speci men Type: BLOOD SPECIMENOrdering Facility: [facility] Address: [address] [place] [address] Performed By: #### 5 7021-8 ####[facility] LABCLIA [id number] [place] [address] [place] Hemoglobin (Bld) [Mass/Vol] 12.4 g/dL Normal 11.5-15.5 [facility] Comment on above: Order Comment: Speci men Type: BLOOD SPECIMENOrdering Facility: [facility] Address: [address] [place] [address] Performed By: #### 5 7021-8 ####[facility] LABIA [id number] [place] [address] [place] Immature granulocytes (Bld) [#/Vol] 0.07 10*3/uL Normal <0.10 [facility] Comment on above: Order Comment: Speci men Type: BLOOD SPECIMENOrdering Facility: [facility] Address: [address] [place] [address] Performed By: #### 5 7021-8 ####[facility] LABIA [id number] [place] [address] [place] Immature granulocytes/100 WBC (Bld) 1.6 % Normal [facility] Comment on above: Order Comment: Speci men Type: BLOOD SPECIMENOrdering Facility: [facility] Address: [address] [place] [address] Performed By: #### 5 7021-8 ####[facility] LABIA [id number] [place] [address] [place] Lymphocytes (Bld) [#/Vol] 0.98 10*3/uL Low 1.00-4.00 [facility] Comment on above: Order Comment: Speci men Type: BLOOD SPECIMENOrdering Facility: [facility] Address: [address] [place] [address] Performed By: #### 5 7021-8 ####[facility] LABIA [id number] [place] [address] [place] Lymphocytes/100 WBC (Bld) 22.1 % Normal [facility] Comment on above: Order Comment: Speci men Type: BLOOD SPECIMENOrdering Facility: [facility] Address: [address] [place] [address] Performed By: #### 5 7021-8 ####[facility] LABIA [id number] [place] [address] [place] MCH (RBC) [Entitic mass] 29.7 pg Normal 26.0-34.0 [facility] Comment on above: Order Comment: Speci men Type: BLOOD SPECIMENOrdering Facility: [facility] Address: [address] [place] [address] Performed By: #### 5 7021-8 ####[facility] LABIA [id number] [place] [address] [place] MCHC (RBC) [Mass/Vol] 33.4 g/dL Normal 30.5-36.0 [facility] Comment on above: Order Comment: Speci men Type: BLOOD SPECIMENOrdering Facility: [facility] Address: [address] [place] [address] Performed By: #### 5 7021-8 ####[facility] LABIA [id number] [place] [address] [place] MCV (RBC) [Entitic vol] 88.8 fL Normal 80.0-100.0 [facility] Comment on above: Order Comment: Speci men Type: BLOOD SPECIMENOrdering Facility: [facility] Address: [address] [place] [address] Performed By: #### 5 7021-8 ####[facility] LABIA [id number] [place] [address] [place] Monocytes (Bld) [#/Vol] 0.75 10*3/uL Normal <0.87 [facility] Comment on above: Order Comment: Speci men Type: BLOOD SPECIMENOrdering Facility: [facility] Address: [address] [place] [address] Performed By: #### 5 7021-8 ####[facility] LABCLIA [id number] [address] [address] [place] Monocytes/100 WBC (Bld) 16.9 % Normal [facility] Comment on above: Order Comment: Speci men Type: BLOOD SPECIMENOrdering Facility: [facility] Address: [address] [place] [address] Performed By: #### 5 7021-8 ####[facility] LABCLIA [id number] [address], [place] [address] [place] Neutrophils (Bld) [#/Vol] 2.41 10*3/uL Normal 1.45-7.50 [facility] Comment on above: Order Comment: Speci men Type: BLOOD SPECIMENOrdering Facility: [facility] Address: [address] [place] [address] Performed By: #### 5 7021-8 ####[facility] LABCLIA [id number] [place] [id number] [place] Neutrophils/100 WBC (Bld) 54.4 % Normal [facility] Comment on above: Order Comment: Speci men Type: BLOOD SPECIMENOrdering Facility: [facility] Address: [address] [place] [address] Performed By: #### 5 7021-8 ####[facility] LABCLIA [id number] [place] [id number] [place] Nucleated RBC (Bld) [#/Vol] 10*3/uL Normal <0.01 [facility] Comment on above: Order Comment: Speci men Type: BLOOD SPECIMENOrdering Facility: [facility] Address: [address] [place] [address] Performed By: #### 5 7021-8 ####[facility] LABCLIA [id number] [address], [place] [address] [place] Nucleated RBC/100 WBC (Bld) [Ratio] 0.0 /100 WBC Normal [facility] Comment on above: Order Comment: Speci men Type: BLOOD SPECIMENOrdering Facility: [facility] Address: [address] [place] [address] Performed By: #### 5 7021-8 ####[facility] LABIA [id number] [address], [place] [address] [place] Platelet mean volume (Bld) [Entitic vol] 9.1 fL Normal 9.0-12.7 [facility] Comment on above: Order Comment: Speci men Type: BLOOD SPECIMENOrdering Facility: [facility] Address: [address] [place] [address] Performed By: #### 5 7021-8 ####[facility] LABIA [id number] [place] [address] [place] Platelets (Bld) [#/Vol] 310 10*3/uL Normal 150-400 [facility] Comment on above: Order Comment: Speci men Type: BLOOD SPECIMENOrdering Facility: [facility] Address: [address] [place] [address] Performed By: #### 5 7021-8 ####[facility] LABIA [id number] [place] [address] [place] RBC (Bld) [#/Vol] 4.18 10*6/uL Normal 3.90-5.20 [facility] Comment on above: Order Comment: Speci men Type: BLOOD SPECIMENOrdering Facility: [facility] Address: [address] [place] [address] Performed By: #### 5 7021-8 ####[facility] LABIA [id number] [place] [id number] [place] WBC (Bld) [#/Vol] 4.43 10*3/uL Normal 3.70-11.00 [facility] Comment on above: Order Comment: Speci men Type: BLOOD SPECIMENOrdering Facility: [facility] Address: [address] [place] [address] Performed By: #### 5 7021-8 ####[facility] LABCLIA [id number] [place] [address] [place] CNOVSPon 09-21-2024 CNOVSP Normal [facility] CNPNon 09-21-2024 CNPN Normal [facility] Cancer Ag15-3 SerPl-aCncon 0 09-21-2024 Cancer Ag 15-3 Qn 30.9 U/mL High <26.0 [facility] Comment on above: Order Comment: Speci men Type: BLOOD SPECIMENOrdering Facility: [facility] Address: [address] [place] [address] Result Comment: The CA 15-3 test methodology used is the Electrochemiluminescence Immunoassay by [employer]. Results obtained with different methods or kits cannot be used interchangeably. Performed By: #### 3 024-7, 3016-3, 2143-6, 6875-9 ####[facility] LABCLIA [id number] [place] [id number] [place] Comprehensive metabolic 2000 panelon 09-21-2024 Albumin [Mass/Vol] 4.3 g/dL Normal 3.9-4.9 [facility] Comment on above: Order Comment: Speci men Type: BLOOD SPECIMENOrdering Facility: [facility] Address: [address] [place] [address] Performed By: #### 2 4323-8 ####[facility] GALINA NELSONLOS ANGELESNANO [id number] [place] [address] [place] ALP [Catalytic activity/Vol] 73 U/L Normal 34-123 [facility] Comment on above: Order Comment: Speci men Type: BLOOD SPECIMENOrdering Facility: [facility] Address: [address] [place] [address] Performed By: #### 2 4323-8 ####[facility] MILLWNCLIA [id number] [place] [address] [place] ALT [Catalytic activity/Vol] 12 U/L Normal 7-38 [facility] Comment on above: Order Comment: Speci men Type: BLOOD SPECIMENOrdering Facility: [facility] Address: [address] [place] [address] Performed By: #### 2 4323-8 ####[facility]CL[facility] [id number] [place] [address] [place] Anion gap [Moles/Vol] 13 mmol/L Normal 8-15 [facility] Comment on above: Order Comment: Speci men Type: BLOOD SPECIMENOrdering Facility: [facility] Address: [address] [place] [address] Performed By: #### 2 4323-8 ####[facility]ERNCLIA [id number] [place] [address] [place] AST [Catalytic activity/Vol] 18 U/L Normal 13-35 [facility] Comment on above: Order Comment: Speci men Type: BLOOD SPECIMENOrdering Facility: [facility] Address: [address] [place] [address] Performed By: #### 2 4323-8 ####[facility]CL[facility] [id number] [place] [address] [place] Bilirubin [Mass/Vol] 0.2 mg/dL Normal 0.2-1.3 [facility] Comment on above: Order Comment: Speci men Type: BLOOD SPECIMENOrdering Facility: [facility] Address: [address] [place] [address] Performed By: #### 2 4323-8 ####[facility]ERNCLIA [id number] [place] [address] [place] Calcium [Mass/Vol] 10.1 mg/dL Normal 8.5-10.2 [facility] Comment on above: Order Comment: Speci men Type: BLOOD SPECIMENOrdering Facility: [facility] Address: [address] [place] [address] Performed By: #### 2 4323-8 ####[facility]ALAWTEMITOPELIA [id number] [place] [address] [place] Chloride [Moles/Vol] 96 mmol/L Low 98-107 [facility] Comment on above: Order Comment: Speci men Type: BLOOD SPECIMENOrdering Facility: [facility] Address: [address] [place] [address] Performed By: #### 2 4323-8 ####[facility]CLIA [id number] [place] [address] [place] CO2 [Moles/Vol] 27 mmol/L Normal 22-30 [facility] Comment on above: Order Comment: Speci men Type: BLOOD SPECIMENOrdering Facility: [facility] Address: [address] [place] [address] Performed By: #### 2 4323-8 ####[facility]CLIA [id number] [place] [address] [place] Creatinine [Mass/Vol] 0.63 mg/dL Normal 0.58-0.96 [facility] Comment on above: Order Comment: Speci men Type: BLOOD SPECIMENOrdering Facility: [facility] Address: [address] [place] [address] Performed By: #### 2 4323-8 ####[facility]ENTERNCLIA [id number] [place] [address] [place] Creatinine and Glomerular filtration rate.predicted panel (S/P/Bld) 99 mL/min/1.73m??? Normal >=60 [facility] Comment on above: Order Comment: [place] villarreal Type: BLOOD SPECIMENOrdering Facility: [facility] Address: [address] [place] [address] Result Comment: Alayna mated Glomerular Filtration Rate (eGFR) is calculated using the 2020 CKD-EPI creatinine equation. This equation utilizes serum creatinine, sex, and age as parameters. The creatinine assay has traceable calibration to isotope dilution-mass spectrometry. Refer to KDIGO guidelines for clinical interpretation. In patients with unstable renal function, e.g. those with acute kidney injury, the eGFR may not accurately reflect actual GFR. Performed By: #### 2 4323-8 ####[facility] [id number] [place] [address] [place] Glucose [Mass/Vol] 97 mg/dL Normal 74-99 [facility] [facility] Comment on above: Order Comment: [place] villarreal Type: BLOOD SPECIMENOrdering Facility: [facility] Address: [address] [place] [address] Result Comment: The Stateless Diabetes Association (ADA) provides guidance for cutoff values for fasting glucose and random glucose. The ADA defines fasting as no caloric intake for at least 8 hours. Fasting plasma glucose results between 100 to 125 mg/dL indicate increased risk for diabetes (prediabetes).Fasting plasma glucose results greater than or equal to 126 mg/dL meet the criteria for diagnosis of diabetes. In the absence of unequivocal hyperglycemia, results should be confirmed by repeat testing. In a patient with classic symptoms of hyperglycemia or hyperglycemic crisis, random plasma glucose results greater than or equal to 200 mg/dL meet the criteria for diagnosis of diabetes.Reference: Standards of Medical Care in Diabetes 2016, Stateless Diabetes Association. Diabetes Care. 2016.39(Suppl 1). Performed By: #### 2 4323-8 ####[facility] ERA [id number] [place] [address] [place] Potassium [Moles/Vol] 3.7 mmol/L Normal 3.7-5.1 [facility] Comment on above: Order Comment: [place] villarreal Type: BLOOD SPECIMENOrdering Facility: [facility] Address: [address] [id number] Performed By: #### 2 4323-8 ####[facility] GALINA MILLTOWNCLIA [id number] [place] [address] [place] Protein [Mass/Vol] 6.8 g/dL Normal 6.3-8.0 [facility] Comment on above: Order Comment: Speci men Type: BLOOD SPECIMENOrdering Facility: [facility] Address: [address] [place] [address] Performed By: #### 2 4323-8 ####[facility] MILLWNCLIA [id number] [place] [address] [place] Sodium [Moles/Vol] 136 mmol/L Normal 136-144 [facility] Comment on above: Order Comment: Speci men Type: BLOOD SPECIMENOrdering Facility: [facility] Address: [address] [place] [address] Performed By: #### 2 4323-8 ####[facility] MILLTOWNCLIA [id number] [place] [address] [place] Urea nitrogen [Mass/Vol] 19 mg/dL Normal 7-21 [facility] Comment on above: Order Comment: Speci men Type: BLOOD SPECIMENOrdering Facility: [facility] Address: [address] [place] [address] Performed By: #### 2 4323-8 ####[facility]ERNCLIA [id number] [place] [address] [place] Cortis SerPl-mCncon 09-22-19 25 Cortisol [Mass/Vol] 5.6 ug/dL Normal 4.8-19.5 [facility] Comment on above: Order Comment: Speci men Type: BLOOD SPECIMENOrdering Facility: [facility] Address: [address] [place] [address] Result Comment: Prov ided reference range is from 6-10 AM sample collection time.Cortisol Reference Range: 6-10 AM = 4.8-19.5 ug/dL, 4-8 PM = 2.5-11.9 ug/dL Performed By: #### 3 024-7, 3016-3, 2142-, 6875-9 ####[facility] LABCLIA [id number] [place] [id number] [place] REFERRAL FOR ADDITIONAL BIOM ARKER AND MOLECULAR TESTINGOrdered By: Sylvia Dunn on 09-21-2024 APMOLR [facility] Comment on above: Request has been rec eived for evaluation and the results will be issued separately. [facility] REFERRAL FOR ADDITIONAL BIOM ARKER AND MOLECULAR TESTINGon 09-21-2024 REFERRAL FOR ADDITIONAL BIOMARKER AND MOLECULAR TESTING Normal [facility] Comment on above: Order Comment: Speci men Type: TISSUE SPECIMENOrdering Facility: [facility] Address: [address] [place] [address] Result Comment: Requ est has been received for evaluation and the results will be issued separately. Performed By: #### A PMOL ####[facility] [id number] [place] [address] [place] T4 Free SerPl-mCncon 025 Free T4 [Mass/Vol] 1.1 ng/dL Normal 0.9-1.7 [facility] Comment on above: Order Comment: Speci men Type: BLOOD SPECIMENOrdering Facility: [facility] Address: [address] [place] [address] Performed By: #### 3 024-7, 3016-3, 2142-, 6875-9 ####[facility] LABCLIA [id number] [place] [id number] [place] TSH SerPl-aCncon 09-21-2024 TSH Qn 2.200 m[IU]/L Normal 0.270-4.20 0 [facility] Comment on above: Order Comment: Speci men Type: BLOOD SPECIMENOrdering Facility: [facility] Address: [address] [place] [address] Performed By: #### 3 024-7, 3016-3, 2143-6, 6875-9 ####[facility] LABCLIA [id number] [place] [id number] [place] [facility] 09-18-2024 CNPN Normal [facility] Cerv Spine 4 or 5 Viewson Cerv Spine 4 or 5 Views [facility] [address] [place] [address] Cerv Spine 4 or 5 Views MR#: [id number] Acct: [id number] Name: Everette HERBERT Rep #: [id number] : 1960 F 64 From: Ike burroughs MD PCP: Dr. Hellen Lafleur MD Status: REG CLI Study: Cerv Spine 4 or 5 Views Date of Exam: 09/17/24 Exam# [id number] Ordering Dr: Alec Kong PROCEDURE: CERV SPINE 4 OR 5 VIEWS 09/17/2024 REASON FOR EXAM: L ARM PAIN, WEAKNESS, ULNAR DISTRIBUTION TECHNIQUE: CERV SPINE 4 OR 5 VIEWS COMPARISON: None. FINDINGS: Grade 1 retrolisthesis of C2 on C3. Grade 1 retrolisthesis of C3 on C4. Grade 1 anterolisthesis of C4 on C5. Grade 1 anterolisthesis of C7 on T1. There are diffuse spondylotic changes. Findings are demonstrated to by diffuse disc space narrowing, osteophyte formation and degenerative endplate sclerosis. There is diffuse facet joint arthropathy with secondary bilateral neural foramina narrowing. No fracture or dislocation is seen. No aggressive lytic or blastic bony lesion is noted. RAD/Cerv Spine 4 or 5 Views IMPRESSION: Spondylosis. Grade 1 retrolisthesis of C2 on C3. Grade 1 retrolisthesis of C3 on C4. Grade 1 anterolisthesis of C4 on C5. Grade 1 anterolisthesis of C7 on T1. Reading Location: [place] [address] CC: Dr. Alec Kong MD; Dr. 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 CNPNon 09-15-2024 CNPN Normal [facility] CBC W Auto Differential pane l (Bld)on 09-08-2024 Basophils (Bld) [#/Vol] 0.05 10*3/uL Normal <0.11 [facility] Comment on above: Order Comment: Speci men Type: BLOOD SPECIMENOrdering Facility: [facility] Address: [address] [place] [address] Performed By: #### 5 7021-8 ####[facility] CENTERLIA [id number] [place] [address] [place] Basophils/100 WBC (Bld) 1.9 % Normal [facility] Comment on above: Order Comment: Speci men Type: BLOOD SPECIMENOrdering Facility: [facility] Address: [address] [place] [address] Performed By: #### 5 7021-8 ####[facility] [id number] [place] [address] [place] Differential cell count method Nom (Bld) Auto Normal [facility] Comment on above: Order Comment: Speci men Type: BLOOD SPECIMENOrdering Facility: [facility] Address: [address] [place] [address] Performed By: #### 5 7021-8 ####[facility] CENTERLIA [id number] [place] [address] [place] Eosinophils (Bld) [#/Vol] 0.21 10*3/uL Normal <0.46 [facility] Comment on above: Order Comment: Speci men Type: BLOOD SPECIMENOrdering Facility: [facility] Address: [address] [place] [address] Performed By: #### 5 7021-8 ####[facility] CENTERLIA [id number] [place] [address] [place] Eosinophils/100 WBC (Bld) 7.9 % Normal [facility] Comment on above: Order Comment: Speci men Type: BLOOD SPECIMENOrdering Facility: [facility] Address: [address] [place] [address] Performed By: #### 5 7021-8 ####[facility] JERO [id number] [place] [address] [place] Erythrocyte distribution width (RBC) [Ratio] 13.8 % Normal 11.5-15.0 [facility] Comment on above: Order Comment: Speci men Type: BLOOD SPECIMENOrdering Facility: [facility] Address: [address] [place] [address] Performed By: #### 5 7021-8 ####[facility] OMARPkNANO [id number] [place] [address] [place] Hematocrit (Bld) [Volume fraction] 35.3 % Low 36.0-46.0 [facility] Comment on above: Order Comment: Speci men Type: BLOOD SPECIMENOrdering Facility: [facility] Address: [address] [place] [address] Performed By: #### 5 7021-8 ####[facility] OMARLOS ANGELESNANO [id number] [place] [address] [place] Hemoglobin (Bld) [Mass/Vol] 11.8 g/dL Normal 11.5-15.5 [facility] Comment on above: Order Comment: Speci men Type: BLOOD SPECIMENOrdering Facility: [facility] Address: [address] [place] [address] Performed By: #### 5 7021-8 ####[facility]ENTERBLAKEA [id number] [place] [address] [place] Immature granulocytes (Bld) [#/Vol] 10*3/uL Normal <0.10 [facility] Comment on above: Order Comment: Speci men Type: BLOOD SPECIMENOrdering Facility: [facility] Address: [address] [place] [address] Performed By: #### 5 7021-8 ####[facility] MILLWNCLIA [id number] [place] [address] [place] Immature granulocytes/100 WBC (Bld) 0.4 % Normal [facility] Comment on above: Order Comment: Speci men Type: BLOOD SPECIMENOrdering Facility: [facility] Address: [address] [place] [address] Performed By: #### 5 7021-8 ####[facility] MED[facility] CENTERLIA [id number] [place] [address] [place] Lymphocytes (Bld) [#/Vol] 0.44 10*3/uL Low 1.00-4.00 [facility] Comment on above: Order Comment: Speci men Type: BLOOD SPECIMENOrdering Facility: [facility] Address: [address] [place] [address] Performed By: #### 5 7021-8 ####[facility] ERA [id number] [place] [address] [place] Lymphocytes/100 WBC (Bld) 16.6 % Normal [facility] Comment on above: Order Comment: Speci men Type: BLOOD SPECIMENOrdering Facility: [facility] Address: [address] [place] [address] Performed By: #### 5 7021-8 ####[facility] MED[facility] CENTERLIA [id number] [place] [address] [place] MCH (RBC) [Entitic mass] 29.3 pg Normal 26.0-34.0 [facility] Comment on above: Order Comment: Speci men Type: BLOOD SPECIMENOrdering Facility: [facility] Address: [address] [place] [address] Performed By: #### 5 7021-8 ####[facility]ENTERNCLIA [id number] [place] [address] [place] MCHC (RBC) [Mass/Vol] 33.4 g/dL Normal 30.5-36.0 [facility] Comment on above: Order Comment: Speci men Type: BLOOD SPECIMENOrdering Facility: [facility] Address: [address] [place] [address] Performed By: #### 5 7021-8 ####[facility]ENTERNCBEAV[facility] [id number] [place] [address] [place] MCV (RBC) [Entitic vol] 87.6 fL Normal 80.0-100.0 [facility] Comment on above: Order Comment: Speci men Type: BLOOD SPECIMENOrdering Facility: [facility] Address: [address] [place] [address] Performed By: #### 5 7021-8 ####[facility] [id number] [place] [address] [place] Monocytes (Bld) [#/Vol] 0.24 10*3/uL Normal <0.87 [facility] Comment on above: Order Comment: Speci men Type: BLOOD SPECIMENOrdering Facility: [facility] Address: [address] [place] [address] Performed By: #### 5 7021-8 ####[facility]ENTERNCLI [id number] [place] [address] [place] Monocytes/100 WBC (Bld) 9.1 % Normal [facility] Comment on above: Order Comment: Speci men Type: BLOOD SPECIMENOrdering Facility: [facility] Address: [address] [place] [address] Performed By: #### 5 7021-8 ####[facility]ENTERNCLIA [id number] [place] [address] [place] Neutrophils (Bld) [#/Vol] 1.70 10*3/uL Normal 1.45-7.50 [facility] Comment on above: Order Comment: Speci men Type: BLOOD SPECIMENOrdering Facility: [facility] Address: [address] [place] [address] Performed By: #### 5 7021-8 ####[facility] OMARBRIDGET [id number] [place] [address] [place] Neutrophils/100 WBC (Bld) 64.1 % Normal [facility] Comment on above: Order Comment: Speci men Type: BLOOD SPECIMENOrdering Facility: [facility] Address: [address] [place] [address] Performed By: #### 5 7021-8 ####[facility] CENTERNANO [id number] [place] [address] [place] Nucleated RBC (Bld) [#/Vol] 10*3/uL Normal <0.01 [facility] Comment on above: Order Comment: Speci men Type: BLOOD SPECIMENOrdering Facility: [facility] Address: [address] [place] [address] Performed By: #### 5 7021-8 ####[facility] ERA [id number] [place] [address] [place] Nucleated RBC/100 WBC (Bld) [Ratio] 0.0 /100 WBC Normal [facility] Comment on above: Order Comment: Speci men Type: BLOOD SPECIMENOrdering Facility: [facility] Address: [address] [place] [address] Performed By: #### 5 7021-8 ####[facility] [id number] [place] [address] [place] Platelet mean volume (Bld) [Entitic vol] 8.7 fL Low 9.0-12.7 [facility] Comment on above: Order Comment: Speci men Type: BLOOD SPECIMENOrdering Facility: [facility] Address: [address] [place] [address] Performed By: #### 5 7021-8 ####[facility]ENTERNCLIA [id number] [place] [address] [place] Platelets (Bld) [#/Vol] 280 10*3/uL Normal 150-400 [facility] Comment on above: Order Comment: Speci men Type: BLOOD SPECIMENOrdering Facility: [facility] Address: [address] [place] [address] Performed By: #### 5 7021-8 ####[facility]ENTERNCLIA [id number] [place] [address] [place] RBC (Bld) [#/Vol] 4.03 10*6/uL Normal 3.90-5.20 [facility] Comment on above: Order Comment: Speci men Type: BLOOD SPECIMENOrdering Facility: [facility] Address: [address] [place] [address] Performed By: #### 5 7021-8 ####[facility] CENTERLIA [id number] [place] [address] [place] WBC (Bld) [#/Vol] 2.65 10*3/uL Low 3.70-11.00 [facility] Comment on above: Order Comment: Speci men Type: BLOOD SPECIMENOrdering Facility: [facility] Address: [address] [place] [address] Performed By: #### 5 7021-8 ####[facility]ENTERNCLIA [id number] [place] [address] [place] Cancer Ag15-3 SerPl-aCncon 0 09-08-2024 Cancer Ag 15-3 Qn 29.9 U/mL High <26.0 [facility] Comment on above: Order Comment: Speci men Type: BLOOD SPECIMENOrdering Facility: [facility] Address: [address] [place] [address] Result Comment: The CA 15-3 test methodology used is the Electrochemiluminescence Immunoassay by [employer]. Results obtained with different methods or kits cannot be used interchangeably. Performed By: #### 6 875-9, 3024-7, 3016-3, 2143-6 ####[facility] LABCLIA [id number] [facility] [place] [address] [place] Comprehensive metabolic 2000 panelon 09-08-2024 Albumin [Mass/Vol] 4.7 g/dL Normal 3.9-4.9 [facility] Comment on above: Order Comment: Speci men Type: BLOOD SPECIMENOrdering Facility: [facility] Address: [address] [place] [address] Performed By: #### 2 4323-8 ####[facility] [id number] [place] [address] [place] ALP [Catalytic activity/Vol] 64 U/L Normal 34-123 [facility] Comment on above: Order Comment: Speci men Type: BLOOD SPECIMENOrdering Facility: [facility] Address: [address] [place] [address] Performed By: #### 2 4323-8 ####[facility] [id number] [address] [place] ALT [Catalytic activity/Vol] 13 U/L Normal 7-38 [facility] Comment on above: Order Comment: Speci men Type: BLOOD SPECIMENOrdering Facility: [facility] Address: [address] [place] [address] Performed By: #### 2 4323-8 ####[facility]ENTERNCLIA [id number] [place] [address] [place] Anion gap [Moles/Vol] 10 mmol/L Normal 8-15 [facility] Comment on above: Order Comment: Speci men Type: BLOOD SPECIMENOrdering Facility: [facility] Address: [address] [place] [address] Performed By: #### 2 4323-8 ####[facility] MILLTOWNCLIA [id number] [place] [address] [place] AST [Catalytic activity/Vol] 20 U/L Normal 13-35 [facility] Comment on above: Order Comment: Speci men Type: BLOOD SPECIMENOrdering Facility: [facility] Address: [address] [place] [address] Performed By: #### 2 4323-8 ####[facility] OCALAWNCLIA [id number] [place] [address] [place] Bilirubin [Mass/Vol] 0.3 mg/dL Normal 0.2-1.3 [facility] Comment on above: Order Comment: Speci men Type: BLOOD SPECIMENOrdering Facility: [facility] Address: [address] [place] [address] Performed By: #### 2 4323-8 ####[facility]ENTERNCLIA [id number] [place] [address] [place] Calcium [Mass/Vol] 9.4 mg/dL Normal 8.5-10.2 [facility] Comment on above: Order Comment: Speci men Type: BLOOD SPECIMENOrdering Facility: [facility] Address: [address] [place] [address] Performed By: #### 2 4323-8 ####[facility]NCL[facility] [id number] [place] [address] [place] Chloride [Moles/Vol] 97 mmol/L Low 98-107 [facility] Comment on above: Order Comment: Speci men Type: BLOOD SPECIMENOrdering Facility: [facility] Address: [address] [place] [address] Performed By: #### 2 4323-8 ####[facility]ENTERNCLIA [id number] [place] [address] [place] CO2 [Moles/Vol] 25 mmol/L Normal 22-30 [facility] Comment on above: Order Comment: Speci men Type: BLOOD SPECIMENOrdering Facility: [facility] Address: [address] [place] [address] Performed By: #### 2 4323-8 ####[facility] [id number] [place] [address] [place] Creatinine [Mass/Vol] 0.63 mg/dL Normal 0.58-0.96 [facility] Comment on above: Order Comment: Speci men Type: BLOOD SPECIMENOrdering Facility: [facility] Address: [address] [place] [address] Performed By: #### 2 4323-8 ####[facility] [id number] [place] [address] [place] Creatinine and Glomerular filtration rate.predicted panel (S/P/Bld) 99 mL/min/1.73m??? Normal >=60 [facility] Comment on above: Order Comment: Speci men Type: BLOOD SPECIMENOrdering Facility: [facility] Address: [address] [place] [address] Result Comment: Alayna mated Glomerular Filtration Rate (eGFR) is calculated using the 2020 CKD-EPI creatinine equation. This equation utilizes serum creatinine, sex, and age as parameters. The creatinine assay has traceable calibration to isotope dilution-mass spectrometry. Refer to KDIGO guidelines for clinical interpretation. In patients with unstable renal function, e.g. those with acute kidney injury, the eGFR may not accurately reflect actual GFR. Performed By: #### 2 4323-8 ####[facility] [id number] [place] [address] [place] Glucose [Mass/Vol] 94 mg/dL Normal 74-99 [facility] Comment on above: Order Comment: Speci men Type: BLOOD SPECIMENOrdering Facility: [facility] Address: [address] [place] [address] Result Comment: The Stateless Diabetes Association (ADA) provides guidance for cutoff values for fasting glucose and random glucose. The ADA defines fasting as no caloric intake for at least 8 hours. Fasting plasma glucose results between 100 to 125 mg/dL indicate increased risk for diabetes (prediabetes).Fasting plasma glucose results greater than or equal to 126 mg/dL meet the criteria for diagnosis of diabetes. In the absence of unequivocal hyperglycemia, results should be confirmed by repeat testing. In a patient with classic symptoms of hyperglycemia or hyperglycemic crisis, random plasma glucose results greater than or equal to 200 mg/dL meet the criteria for diagnosis of diabetes.Reference: Standards of Medical Care in Diabetes 2016, Stateless Diabetes Association. Diabetes Care. 2016.39(Suppl 1). Performed By: #### 2 4323-8 ####[facility] [id number] [place] [address] [place] Potassium [Moles/Vol] 4.2 mmol/L Normal 3.7-5.1 [facility] Comment on above: Order Comment: Speci men Type: BLOOD SPECIMENOrdering Facility: [facility] Address: [address] [place] [address] Performed By: #### 2 4323-8 ####[facility] [id number] [place] [address] [place] Protein [Mass/Vol] 6.9 g/dL Normal 6.3-8.0 [facility] Comment on above: Order Comment: Speci men Type: BLOOD SPECIMENOrdering Facility: [facility] Address: [address] [place] [address] Performed By: #### 2 4323-8 ####[facility] [id number] [place] [address] [place] Sodium [Moles/Vol] 132 mmol/L Low 136-144 [facility] Comment on above: Order Comment: Speci men Type: BLOOD SPECIMENOrdering Facility: [facility] Address: [address] [place] [address] Performed By: #### 2 4323-8 ####[facility] OCALAWNCL[facility] [id number] [place] [address] [place] Urea nitrogen [Mass/Vol] 11 mg/dL Normal 7-21 [facility] Comment on above: Order Comment: Speci men Type: BLOOD SPECIMENOrdering Facility: [facility] Address: [address] [place] [address] Performed By: #### 2 4323-8 ####[facility] ERA [id number] [place] [address] [place] Cortis SerPl-mCncon 09-09-19 25 Cortisol [Mass/Vol] 6.6 ug/dL Normal 4.8-19.5 [facility] Comment on above: Order Comment: Speci men Type: BLOOD SPECIMENOrdering Facility: [facility] Address: [address] [place] [address] Result Comment: Prov ided reference range is from 6-10 AM sample collection time.Cortisol Reference Range: 6-10 AM = 4.8-19.5 ug/dL, 4-8 PM = 2.5-11.9 ug/dL Performed By: #### 6 875-9, 3024-7, 3016-3, 6 ####[facility] LABCLIA [id number] [place] [id number] [place] T4 Free SerPl-mCncon 025 Free T4 [Mass/Vol] 1.1 ng/dL Normal 0.9-1.7 [facility] Comment on above: Order Comment: Speci men Type: BLOOD SPECIMENOrdering Facility: [facility] Address: [address] [place] [address] Performed By: #### 6 875-9, 3024-7, 3016-3, 6 ####[facility] LABCLIA [id number] [place] [address] [place] TSH SerPl-aCncon 09-08-2024 TSH Qn 1.070 m[IU]/L Normal 0.270-4.20 0 [facility] Comment on above: Order Comment: Speci men Type: BLOOD SPECIMENOrdering Facility: [facility] Address: [address] [place] [address] [place] [address] Performed By: #### 6 875-9, 3024-7, 3016-3, 2143-6 ####[facility] LABCLIA [id number] [facility] PARKWAYPiero [address] [place] CNPNon 09-03-2024 CNPN Normal [facility] Final Surgical Pathology Rep gretchen 09-02-2024 Final Surgical Pathology Report . Pathology Reports Accession: Collected Date/Time: Received Date/Time: Pathologist: [id number] 08/26/2024 14:57 EDT 08/27/2024 14:04 EDT MD MARY TOWNSEND Final Surgical Pathology Report DIAGNOSIS: BREAST, RIGHT, 1-2 O'CLOCK, CORE BIOPSY: - ANGIOSARCOMA Comment: Stains are positive in the tumor cells for CD31 and CD34 and show scattered weak positive staining for c-Myc. Ki-67 shows 70% positive staining in the tumor cells. Cytokeratin AE1/3 is negative. CLINICAL INFORMATION: R BREAST MASS Procedure: U/S BX SPECIMEN: A 2.8cm RIGHT BREAST MASS 1-2:00 GROSS DESCRIPTION: All parts labelled with patient name and [id number] Received in formalin labelled undesignated in the container" Are multiple cylindrical breast core biopsies and core fragments ranging from less than 0.1 to 1 cm. Specimen removed from patient @1457. Placed in Formalin Fixative @1508. Cold Ischemia time 11 minutes. Total time in formalin (in processor) 1 hrs. Total Time in Formalin Fixative 34.5 hrs. TS-1 Mirna Arroyo, Pathologists' Community Health Worker (ASCP) Performed by MIRNA ARROYO MICROSCOPIC DESCRIPTION: The microscopic examination is performed, except in the case of Gross Only. Verified by Pathology Report verified by [facility] MARY TOWNSEND MD Sign out Date: 09/02/2024 13:54 Performing Lab: [facility], [address] [place] [id number] [place] [address] Pathology Dept Disclaimer If ancillary studies were utilized, the following Laboratory Developed Test (LDT) disclaimer will apply: Under CLIA requirements, [facility] Pathology Laboratory is qualified to perform high complexity testing. For all ancillary stains, positive and negative controls stain appropriately. Performance characteristics of immunohistochemical and chromogenic in-situ hybridization tests have been determined by [facility] Pathology Laboratory. These tests are used for clinical purposes, They should not be regarded as investigational or for research. 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 Pathology results are concordant with the imaging findings. Recommendations: Surgical excision is recommended. BIRADS: RECALL: immediate RECALL TYPE: Biopsy followup LETTER SENT: Core Biopsy-Excision Interpreted by: Silas Levy MD Preliminary Report By: Silas Levy MD Electronically signed By Silas Levy MD Dictated Date: 09/02/2024 6:28:21 PM Prelim Date: 09/02/2024 6:31:22 PM Sign Date: 09/02/2024 6:31:22 PM Ordering Provider: RAFIQ ANTONIO ORIGINAL FROM: [address] [address] PROCEDURE FOR: CARRIE HERBERT [facility] [place] [address] Home: PID#: [id number] Exam#: [id number] : 1960 Age: 64 TO: RAFIQ ANTONIO APRN [place] [address] Fax: NO FAX EXAMINATION: ULTRASOUND-GUIDED BIOPSY RIGHT BREAST 08/26/2024 1:48 pm COMPARISON: Ultrasound August 19, 2024 HISTORY: ORDERING SYSTEM PROVIDED HISTORY: Reason for Exam: Irregular right breast mass 1-2 o'clock FINDINGS: A timeout was performed to confirm patient identification and site of procedure. Risks, benefits, and alternatives of the procedure were discussed. Informed written consent was obtained. An ultrasound guided biopsy using real-time ultrasound was performed for the mass located in the right breast at 2 o'clock position all depths. This was described on the previous ultrasound report. The skin was prepped in the usual manner. Local anesthetic was administered to the access site. A skin gary was made in the breast. A 14 gauge biopsy needle was placed adjacent to the abnormality under ultrasound guidance. Once the needle was documented to be in the correct location, multiple specimens were obtained using a Mermaid biopsy device. A titanium clip was not placed. A GRISEL nursing coordinator device was placed in the targeted location, which emitted signal. A sterile dressing was applied to the access site. The specimens were sent to the laboratory for pathologic analysis. STATUS: Successful IMPRESSION: Ultrasound guided biopsy was successful with no apparent post procedure complications. Awaiting pathology report. An addendum will be made for radiology-pathology correlation when the pathology reports become available. BIRADS: RECALL: no message RECALL TYPE: unspecified LETTER SENT: No Letter Interpreted by: Silas Levy MD Preliminary Report By: Silas Levy MD Electronically signed By Silas Levy MD Dictated Date: 08/27/2024 6:14:57 AM Prelim Date: 08/27/2024 6:20:44 AM Sign Date: 08/27/2024 6:20:44 AM Ordering Provider: RAFIQ ANTONIO Mill Crane Operator: KELSI DELACRUZ [facility] MAIN CBC W Auto Differential pane l (Bld)on 09-01-2024 Basophils (Bld) [#/Vol] 0.05 10*3/uL Normal <0.11 [facility] Comment on above: Order Comment: Speci men Type: BLOOD SPECIMENOrdering Facility: [facility] Address: [address] [place] [address] Performed By: #### 5 7021-8 ####[facility] [id number] [place] [address] [place] Basophils/100 WBC (Bld) 1.4 % Normal [facility] Comment on above: Order Comment: Speci men Type: BLOOD SPECIMENOrdering Facility: [facility] Address: [address] [place] [address] Performed By: #### 5 7021-8 ####[facility] [id number] [place] [address] [place] Differential cell count method Nom (Bld) Auto Normal [facility] Comment on above: Order Comment: Speci men Type: BLOOD SPECIMENOrdering Facility: [facility] Address: [address] [place] [address] Performed By: #### 5 7021-8 ####[facility] [id number] [place] [address] [place] Eosinophils (Bld) [#/Vol] 0.26 10*3/uL Normal <0.46 [facility] Comment on above: Order Comment: Speci men Type: BLOOD SPECIMENOrdering Facility: [facility] Address: [address] [place] [address] Performed By: #### 5 7021-8 ####[facility] [id number] [place] [address] [place] Eosinophils/100 WBC (Bld) 7.3 % Normal [facility] Comment on above: Order Comment: Speci men Type: BLOOD SPECIMENOrdering Facility: [facility] Address: [address] [place] [address] Performed By: #### 5 7021-8 ####[facility] [id number] [place] [address] [place] Erythrocyte distribution width (RBC) [Ratio] 13.6 % Normal 11.5-15.0 [facility] Comment on above: Order Comment: Speci men Type: BLOOD SPECIMENOrdering Facility: [facility] Address: [address] [place] [address] Performed By: #### 5 7021-8 ####[facility] [id number] [place] [address] [place] Hematocrit (Bld) [Volume fraction] 33.9 % Low 36.0-46.0 [facility] Comment on above: Order Comment: Speci men Type: BLOOD SPECIMENOrdering Facility: [facility] Address: [address] [place] [address] Performed By: #### 5 7021-8 ####[facility]EMITOPEBEAV[facility] [id number] [place] [address] [place] Hemoglobin (Bld) [Mass/Vol] 11.6 g/dL Normal 11.5-15.5 [facility] Comment on above: Order Comment: Speci men Type: BLOOD SPECIMENOrdering Facility: [facility] Address: [address] [place] [address] Performed By: #### 5 7021-8 ####[facility] [id number] [place] [address] [place] Immature granulocytes (Bld) [#/Vol] 10*3/uL Normal <0.10 [facility] Comment on above: Order Comment: Speci men Type: BLOOD SPECIMENOrdering Facility: [facility] Address: [address] [place] [address] Performed By: #### 5 7021-8 ####[facility] [id number] [place] [address] [place] Immature granulocytes/100 WBC (Bld) 0.3 % Normal [facility] Comment on above: Order Comment: Speci men Type: BLOOD SPECIMENOrdering Facility: [facility] Address: [address] [place] [address] Performed By: #### 5 7021-8 ####[facility] MED[facility] CENTERLIA [id number] [place] [address] [place] Lymphocytes (Bld) [#/Vol] 0.60 10*3/uL Low 1.00-4.00 [facility] Comment on above: Order Comment: Speci men Type: BLOOD SPECIMENOrdering Facility: [facility] Address: [address] [place] [address] Performed By: #### 5 7021-8 ####[facility] OCALAWNCLIA [id number] [place] [address] [place] Lymphocytes/100 WBC (Bld) 16.9 % Normal [facility] Comment on above: Order Comment: Speci men Type: BLOOD SPECIMENOrdering Facility: [facility] Address: [address] [place] [address] Performed By: #### 5 7021-8 ####[facility] CENTERTEMITOPELIA [id number] [place] [address] [place] MCH (RBC) [Entitic mass] 29.9 pg Normal 26.0-34.0 [facility] Comment on above: Order Comment: Speci men Type: BLOOD SPECIMENOrdering Facility: [facility] Address: [address] [place] [address] Performed By: #### 5 7021-8 ####[facility] CENTERLIA [id number] [place] [address] [place] MCHC (RBC) [Mass/Vol] 34.2 g/dL Normal 30.5-36.0 [facility] Comment on above: Order Comment: Speci men Type: BLOOD SPECIMENOrdering Facility: [facility] Address: [address] [place] [address] Performed By: #### 5 7021-8 ####[facility] MED[facility] CENTERLIA [id number] [place] [address] [place] MCV (RBC) [Entitic vol] 87.4 fL Normal 80.0-100.0 [facility] Comment on above: Order Comment: Speci men Type: BLOOD SPECIMENOrdering Facility: [facility] Address: [address] [place] [address] Performed By: #### 5 7021-8 ####[facility]ENTERNCLIA [id number] [place] [address] [place] Monocytes (Bld) [#/Vol] 0.38 10*3/uL Normal <0.87 [facility] Comment on above: Order Comment: Speci men Type: BLOOD SPECIMENOrdering Facility: [facility] Address: [address] [place] [address] Performed By: #### 5 7021-8 ####[facility] CENTERLIA [id number] [place] [address] [place] Monocytes/100 WBC (Bld) 10.7 % Normal [facility] Comment on above: Order Comment: Speci men Type: BLOOD SPECIMENOrdering Facility: [facility] Address: [address] [place] [address] Performed By: #### 5 7021-8 ####[facility] [id number] [place] [address] [place] Neutrophils (Bld) [#/Vol] 2.26 10*3/uL Normal 1.45-7.50 [facility] Comment on above: Order Comment: Speci men Type: BLOOD SPECIMENOrdering Facility: [facility] Address: [address] [place] [address] Performed By: #### 5 7021-8 ####[facility] [id number] [place] [address] [place] Neutrophils/100 WBC (Bld) 63.4 % Normal [facility] Comment on above: Order Comment: Speci men Type: BLOOD SPECIMENOrdering Facility: [facility] Address: [address] [place] [address] Performed By: #### 5 7021-8 ####[facility] [id number] [place] [address] [place] Nucleated RBC (Bld) [#/Vol] 10*3/uL Normal <0.01 [facility] Comment on above: Order Comment: Speci men Type: BLOOD SPECIMENOrdering Facility: [facility] Address: [address] [place] [address] Performed By: #### 5 7021-8 ####[facility] OMARBRIDGET [id number] [place] [address] [place] Nucleated RBC/100 WBC (Bld) [Ratio] 0.0 /100 WBC Normal [facility] Comment on above: Order Comment: Speci men Type: BLOOD SPECIMENOrdering Facility: [facility] Address: [address] [place] [address] Performed By: #### 5 7021-8 ####[facility] CENTERNCNATALI [id number] [place] [address] [place] Platelet mean volume (Bld) [Entitic vol] 9.0 fL Normal 9.0-12.7 [facility] Comment on above: Order Comment: Speci men Type: BLOOD SPECIMENOrdering Facility: [facility] Address: [address] [place] [address] Performed By: #### 5 7021-8 ####[facility] CENTERTEMITOPEA [id number] [place] [address] [place] Platelets (Bld) [#/Vol] 234 10*3/uL Normal 150-400 [facility] Comment on above: Order Comment: Speci men Type: BLOOD SPECIMENOrdering Facility: [facility] Address: [address] [place] [address] Performed By: #### 5 7021-8 ####[facility] CENTERLIA [id number] [place] [address] [place] RBC (Bld) [#/Vol] 3.88 10*6/uL Low 3.90-5.20 [facility] Comment on above: Order Comment: Speci men Type: BLOOD SPECIMENOrdering Facility: [facility] Address: [address] [place] [address] Performed By: #### 5 7021-8 ####[facility]ENTERNCLIA [id number] [place] [address] [place] WBC (Bld) [#/Vol] 3.56 10*3/uL Low 3.70-11.00 [facility] Comment on above: Order Comment: Speci men Type: BLOOD SPECIMENOrdering Facility: [facility] Address: [address] [place] [address] Performed By: #### 5 7021-8 ####[facility]ENTERNC[facility] [id number] [place] [address] [place] MA MAMMOGRAM DIAGNOSTIC [facility] 08-27-2024 MA MAMMOGRAM DIAGNOSTIC RIGHT ORIGINAL FROM: [address] [address] PROCEDURE FOR: CARRIE HERBERT [address] [place] [address] Home: PID#: [id number] Exam#: [id number] : 1960 Age: 64 TO: RAFIQ ANTONIO APRN [place] [address] Fax: NO FAX EXAMINATION: DIAGNOSTIC DIGITAL RIGHT BREAST MAMMOGRAM, 08/26/2024 3:12 pm TECHNIQUE: Diagnostic mammography of the right breast was performed. Computer aided detection was utilized in the interpretation of this exam. Current study was also evaluated with a Computer Aided Detection (CAD) system. COMPARISON: Mammogram August 11, 2024, ultrasound August 19, 2024, ultrasound-guided biopsy from the same date HISTORY: Post GRISEL nursing coordinator reflector placement FINDINGS: BREAST DENSITY: There are scattered areas of fibroglandular density. This exam was utilized for confirmation of placement of a GRISEL nursing coordinator infrared radar reflector in the right breast. The reflector is in the center of the lesion. 2 remote biopsy clips are seen in the same region. IMPRESSION: Confirmation of placement of a GRISEL nursing coordinator infrared radar reflector in appropriate position. BIRADS: BI-RADS: n/a RECALL: no message RECALL TYPE: unspecified LETTER SENT: No Letter Interpreted by: Silas Levy MD Preliminary Report By: Silas Levy MD Electronically signed By Silas Levy MD Dictated Date: 08/27/2024 6:20:53 AM Prelim Date: 08/27/2024 6:22:22 AM Sign Date: 08/27/2024 6:22:22 AM Ordering Provider: RAFIQ ANTONIO Mill Crane Operator: DAGOBERTO BETTS(Roxana)(M) Mammogram BI-RADS: n/a Normal [facility] CBC W Auto Differential pane l (Bld)on 08-24-2024 Basophils (Bld) [#/Vol] 0.06 10*3/uL Normal <0.11 [facility] Comment on above: Order Comment: Speci men Type: BLOOD SPECIMENOrdering Facility: [facility] Address: [address] [place] [address] Performed By: #### 5 7021-8 ####[facility] MED[facility] CENTERLIA [id number] [place] [address] [place] Basophils/100 WBC (Bld) 1.7 % Normal [facility] Comment on above: Order Comment: Speci men Type: BLOOD SPECIMENOrdering Facility: [facility] Address: [address] [place] [address] Performed By: #### 5 7021-8 ####[facility] CENTERLIA [id number] [place] [address] [place] Differential cell count method Nom (Bld) Auto Normal [facility] Comment on above: Order Comment: Speci men Type: BLOOD SPECIMENOrdering Facility: [facility] Address: [address] [place] [address] Performed By: #### 5 7021-8 ####[facility] MILLLOS ANGELESNCLIA [id number] [place] [address] [place] Eosinophils (Bld) [#/Vol] 0.23 10*3/uL Normal <0.46 [facility] Comment on above: Order Comment: Speci men Type: BLOOD SPECIMENOrdering Facility: [facility] Address: [address] [place] [address] Performed By: #### 5 7021-8 ####[facility] JERO [id number] [place] [address] [place] Eosinophils/100 WBC (Bld) 6.7 % Normal [facility] Comment on above: Order Comment: Speci men Type: BLOOD SPECIMENOrdering Facility: [facility] Address: [address] [place] [address] Performed By: #### 5 7021-8 ####[facility] OMARLOS ANGELESTEMITOPENATALI [id number] [place] [address] [place] Erythrocyte distribution width (RBC) [Ratio] 13.7 % Normal 11.5-15.0 [facility] Comment on above: Order Comment: Speci men Type: BLOOD SPECIMENOrdering Facility: [facility] Address: [address] [place] [address] Performed By: #### 5 7021-8 ####[facility] OMARLOS ANGELESTEMITOPENATALI [id number] [place] [address] [place] Hematocrit (Bld) [Volume fraction] 34.2 % Low 36.0-46.0 [facility] Comment on above: Order Comment: Speci men Type: BLOOD SPECIMENOrdering Facility: [facility] Address: [address] [place] [address] Performed By: #### 5 7021-8 ####[facility] CENTERBLAKEA [id number] [place] [address] [place] Hemoglobin (Bld) [Mass/Vol] 11.6 g/dL Normal 11.5-15.5 [facility] Comment on above: Order Comment: Speci men Type: BLOOD SPECIMENOrdering Facility: [facility] Address: [address] [place] [address] Performed By: #### 5 7021-8 ####[facility] MILLWNCLIA [id number] [place] [address] [place] Immature granulocytes (Bld) [#/Vol] 10*3/uL Normal <0.10 [facility] Comment on above: Order Comment: Speci men Type: BLOOD SPECIMENOrdering Facility: [facility] Address: [address] [place] [address] Performed By: #### 5 7021-8 ####[facility] MED[facility] CENTERLIA [id number] [place] [address] [place] Immature granulocytes/100 WBC (Bld) 0.6 % Normal [facility] Comment on above: Order Comment: Speci men Type: BLOOD SPECIMENOrdering Facility: [facility] Address: [address] [place] [address] Performed By: #### 5 7021-8 ####[facility] [id number] [place] [address] [place] Lymphocytes (Bld) [#/Vol] 0.72 10*3/uL Low 1.00-4.00 [facility] Comment on above: Order Comment: Speci men Type: BLOOD SPECIMENOrdering Facility: [facility] Address: [address] [place] [address] Performed By: #### 5 7021-8 ####[facility] MED[facility] CENTERLIA [id number] [place] [address] [place] Lymphocytes/100 WBC (Bld) 21.0 % Normal [facility] Comment on above: Order Comment: Speci men Type: BLOOD SPECIMENOrdering Facility: [facility] Address: [address] [place] [address] Performed By: #### 5 7021-8 ####[facility] CENTERNCLIA [id number] [place] [address] [place] MCH (RBC) [Entitic mass] 30.1 pg Normal 26.0-34.0 [facility] Comment on above: Order Comment: Speci men Type: BLOOD SPECIMENOrdering Facility: [facility] Address: [address] [place] [address] Performed By: #### 5 7021-8 ####[facility]ENTERNCBEAV[facility] [id number] [place] [address] [place] MCHC (RBC) [Mass/Vol] 33.9 g/dL Normal 30.5-36.0 [facility] Comment on above: Order Comment: Speci men Type: BLOOD SPECIMENOrdering Facility: [facility] Address: [address] [place] [address] Performed By: #### 5 7021-8 ####[facility]NC[facility] [id number] [place] [address] [place] MCV (RBC) [Entitic vol] 88.6 fL Normal 80.0-100.0 [facility] Comment on above: Order Comment: Speci men Type: BLOOD SPECIMENOrdering Facility: [facility] Address: [address] [place] [address] Performed By: #### 5 7021-8 ####[facility] [id number] [place] [address] [place] Monocytes (Bld) [#/Vol] 0.67 10*3/uL Normal <0.87 [facility] Comment on above: Order Comment: Speci men Type: BLOOD SPECIMENOrdering Facility: [facility] Address: [address] [place], [place] [address] Performed By: #### 5 7021-8 ####[facility] [id number] [address] [place] Monocytes/100 WBC (Bld) 19.5 % Normal [facility] Comment on above: Order Comment: Speci men Type: BLOOD SPECIMENOrdering Facility: [facility] Address: [address] [place] [address] Performed By: #### 5 7021-8 ####[facility] OMARLOS ANGELESTEMITOPELIA [id number] [place] [address] [place] Neutrophils (Bld) [#/Vol] 1.73 10*3/uL Normal 1.45-7.50 [facility] Comment on above: Order Comment: Speci men Type: BLOOD SPECIMENOrdering Facility: [facility] Address: [address] [place] [address] Performed By: #### 5 7021-8 ####[facility] [id number] [place] [address] [place] Neutrophils/100 WBC (Bld) 50.5 % Normal [facility] Comment on above: Order Comment: Speci men Type: BLOOD SPECIMENOrdering Facility: [facility] Address: [address] [place] [address] Performed By: #### 5 7021-8 ####[facility] [id number] [place] [address] [place] Nucleated RBC (Bld) [#/Vol] 10*3/uL Normal <0.01 [facility] Comment on above: Order Comment: Speci men Type: BLOOD SPECIMENOrdering Facility: [facility] Address: [address] [place] [address] Performed By: #### 5 7021-8 ####[facility] CENTERLIA [id number] [place] [address] [place] Nucleated RBC/100 WBC (Bld) [Ratio] 0.0 /100 WBC Normal [facility] Comment on above: Order Comment: Speci men Type: BLOOD SPECIMENOrdering Facility: [facility] Address: [address] [place] [address] Performed By: #### 5 7021-8 ####[facility] OCALAWNCLIA [id number] [place] [address] [place] Platelet mean volume (Bld) [Entitic vol] 8.6 fL Low 9.0-12.7 [facility] Comment on above: Order Comment: Speci men Type: BLOOD SPECIMENOrdering Facility: [facility] Address: [address] [place] [address] Performed By: #### 5 7021-8 ####[facility] CENTERLIA [id number] [place] [address] [place] Platelets (Bld) [#/Vol] 269 10*3/uL Normal 150-400 [facility] Comment on above: Order Comment: Speci men Type: BLOOD SPECIMENOrdering Facility: [facility] Address: [address] [place] [address] Performed By: #### 5 7021-8 ####[facility] CENTERLIA [id number] [place] [address] [place] RBC (Bld) [#/Vol] 3.86 10*6/uL Low 3.90-5.20 [facility] Comment on above: Order Comment: Speci men Type: BLOOD SPECIMENOrdering Facility: [facility] Address: [address] [place] [address] Performed By: #### 5 7021-8 ####[facility] CENTERLIA [id number] [place] [address] [place] WBC (Bld) [#/Vol] 3.43 10*3/uL Low 3.70-11.00 [facility] Comment on above: Order Comment: Speci men Type: BLOOD SPECIMENOrdering Facility: [facility] Address: [address] [place] [address] Performed By: #### 5 7021-8 ####[facility]ENTERNCLIA [id number] [place] [address] [place] CNOVSPon 08-24-2024 CNOVSP Normal [facility] Comprehensive metabolic 2000 panelon 08-24-2024 Albumin [Mass/Vol] 4.3 g/dL Normal 3.9-4.9 [facility] Comment on above: Order Comment: Speci men Type: BLOOD SPECIMENOrdering Facility: [facility] Address: [address] [place] [address] Performed By: #### 2 4323-8 ####[facility]ENTERNCLIA [id number] [place] [address] [place] ALP [Catalytic activity/Vol] 67 U/L Normal 34-123 [facility] Comment on above: Order Comment: Speci men Type: BLOOD SPECIMENOrdering Facility: [facility] Address: [address] [place] [address] Performed By: #### 2 4323-8 ####[facility]ENTERNCLIA [id number] [place] [address] [place] ALT [Catalytic activity/Vol] 12 U/L Normal 7-38 [facility] Comment on above: Order Comment: Speci men Type: BLOOD SPECIMENOrdering Facility: [facility] Address: [address] [place] [address] Performed By: #### 2 4323-8 ####[facility] CENTERLIA [id number] [place] [address] [place] Anion gap [Moles/Vol] 10 mmol/L Normal 8-15 [facility] Comment on above: Order Comment: Speci men Type: BLOOD SPECIMENOrdering Facility: [facility] Address: [address] [place] [address] Performed By: #### 2 4323-8 ####[facility]ENTERNCLIA [id number] [place] [address] [place] AST [Catalytic activity/Vol] 18 U/L Normal 13-35 [facility] Comment on above: Order Comment: Speci men Type: BLOOD SPECIMENOrdering Facility: [facility] Address: [address] [place] [address] Performed By: #### 2 4323-8 ####[facility]ENTERNCLI [id number] [place] [address] [place] Bilirubin [Mass/Vol] 0.2 mg/dL Normal 0.2-1.3 [facility] Comment on above: Order Comment: Speci men Type: BLOOD SPECIMENOrdering Facility: [facility] Address: [address] [place] [address] Performed By: #### 2 4323-8 ####[facility] [id number] [place] [address] [place] Calcium [Mass/Vol] 9.4 mg/dL Normal 8.5-10.2 [facility] Comment on above: Order Comment: Speci men Type: BLOOD SPECIMENOrdering Facility: [facility] Address: [address] [place] [address] Performed By: #### 2 4323-8 ####[facility] [id number] [place] [address] [place] Chloride [Moles/Vol] 97 mmol/L Low 98-107 [facility] Comment on above: Order Comment: Speci men Type: BLOOD SPECIMENOrdering Facility: [facility] Address: [address] [place] [address] Performed By: #### 2 4323-8 ####[facility]ENTERNCLIA [id number] [place] [address] [place] CO2 [Moles/Vol] 27 mmol/L Normal 22-30 [facility] Comment on above: Order Comment: Speci men Type: BLOOD SPECIMENOrdering Facility: [facility] Address: [address] [place] [address] Performed By: #### 2 4323-8 ####[facility]ENTERNCLIA [id number] [place] [address] [place] Creatinine [Mass/Vol] 0.67 mg/dL Normal 0.58-0.96 [facility] Comment on above: Order Comment: Specgwyn men Type: BLOOD SPECIMENOrdering Facility: [facility] Address: [address] [place], [place] [address] [address] Performed By: #### 2 4323-8 ####[facility] CENTERLI [id number] [place] [address] [place] Creatinine and Glomerular filtration rate.predicted panel (S/P/Bld) 97 mL/min/1.73m??? Normal >=60 [facility] Comment on above: Order Comment: [place] villarreal Type: BLOOD SPECIMENOrdering Facility: [facility] Address: [address] [place] [address] Result Comment: Alayna mated Glomerular Filtration Rate (eGFR) is calculated using the 2020 CKD-EPI creatinine equation. This equation utilizes serum creatinine, sex, and age as parameters. The creatinine assay has traceable calibration to isotope dilution-mass spectrometry. Refer to KDIGO guidelines for clinical interpretation. In patients with unstable renal function, e.g. those with acute kidney injury, the eGFR may not accurately reflect actual GFR. Performed By: #### 2 4323-8 ####[facility] [id number] [place] [address] [place] Glucose [Mass/Vol] 125 mg/dL High 74-99 [facility] Comment on above: Order Comment: [place] villarreal Type: BLOOD SPECIMENOrdering Facility: [facility] Address: [address] [place] [address] Result Comment: The Stateless Diabetes Association (ADA) provides guidance for cutoff values for fasting glucose and random glucose. The ADA defines fasting as no caloric intake for at least 8 hours. Fasting plasma glucose results between 100 to 125 mg/dL indicate increased risk for diabetes (prediabetes).Fasting plasma glucose results greater than or equal to 126 mg/dL meet the criteria for diagnosis of diabetes. In the absence of unequivocal hyperglycemia, results should be confirmed by repeat testing. In a patient with classic symptoms of hyperglycemia or hyperglycemic crisis, random plasma glucose results greater than or equal to 200 mg/dL meet the criteria for diagnosis of diabetes.Reference: Standards of Medical Care in Diabetes 2016, Stateless Diabetes Association. Diabetes Care. 2016.39(Suppl 1). Performed By: #### 2 4323-8 ####[facility] MILLWNCLIA [id number] [place] [address] [place] Potassium [Moles/Vol] 4.2 mmol/L Normal 3.7-5.1 [facility] Comment on above: Order Comment: Mikhaili men Type: BLOOD SPECIMENOrdering Facility: [facility] Address: [address] [place] [address] Performed By: #### 2 4323-8 ####[facility] [id number] [place] [address] [place] Protein [Mass/Vol] 6.8 g/dL Normal 6.3-8.0 [facility] Comment on above: Order Comment: Mikhaili cherelle Type: BLOOD SPECIMENOrdering Facility: [facility] Address: [address] [place] [address] Performed By: #### 2 4323-8 ####[facility] CENTERLIA [id number] [place] [address] [place] Sodium [Moles/Vol] 134 mmol/L Low 136-144 [facility] Comment on above: Order Comment: Speci men Type: BLOOD SPECIMENOrdering Facility: [facility] Address: [address] [place] [address] Performed By: #### 2 4323-8 ####[facility] CENTERLIA [id number] [place] [address] [place] Urea nitrogen [Mass/Vol] 22 mg/dL High 7-21 [facility] Comment on above: Order Comment: Speci men Type: BLOOD SPECIMENOrdering Facility: [facility] Address: [facility] [place] [id number] Performed By: #### 2 4323-8 ####[facility] CENTERLI [id number] [place] [address] [place] MA MAMMOGRAM DIAGNOSTIC BILA TERAL W/TOMOon 08-19-2024 MA MAMMOGRAM DIAGNOSTIC BILATERAL W/GEO ORIGINAL FROM: [facility] [address] [place] [address] PROCEDURE FOR: CARRIE BrandeeAlfie HERBERT [address] [place] [address] Home: PID#: [id number] Exam#: [id number] : 1960 Age: 64 TO: DEBBIE MERINO MD [address] [place] [address] Fax: NO FAX EXAMINATION: DIAGNOSTIC BILATERAL MAMMOGRAM WITH TOMOSYNTHESIS, 08/19/2024 8:57 am TECHNIQUE: Tomosynthesis was performed as part of the diagnostic bilateral mammogram. 2D standard and 3D tomosynthesis combination imaging performed. Current study was also evaluated with a Computer Aided Detection (CAD) system. COMPARISON: 08/20/2023 mammogram, 05/05/2024 right breast ultrasound. 08/04/2024 PET-CT scan. HISTORY: ORDERING SYSTEM PROVIDED HISTORY: Reason for Exam: follow up breast cancer. Right breast mass and left breast skin thickening on 08/04/2024 PET-CT scan. FINDINGS: BREAST DENSITY: There are scattered areas of fibroglandular density. In the right breast, corresponding to the PET-CT scan, at 2 o'clock there is a 3 x 1.7 x 2.2 cm in transverse by AP by craniocaudal dimensions irregular mass. Postsurgical change is present in the right breast. Postsurgical changes present in the left breast in there is diffuse left breast skin thickening and parenchymal thickening. There are intact bilateral retropectoral saline implants. No significant masses, calcifications, or other findings. IMPRESSION: Right breast mass concerning for malignancy, ultrasound is recommended to further evaluate. Ultrasound will be performed the same day and reported separately. Diffuse left breast skin thickening and edema, this is most likely post therapeutic in nature, malignant disease is not excludable. Correlate clinically. Reese Burnett risk calculations do not apply for this patient. BIRADS: BI-RADS: 0: Incomplete: Need Additional Imaging Evaluation RECALL: immediate RECALL TYPE: US LETTER SENT: Abnormal-Needs additional work up BI-RADS 0 Interpreted by: Anita Haddad MD Preliminary Report By: Anita Haddad MD Electronically signed By Anita Haddad MD Dictated Date: 08/19/2024 10:39:38 AM Prelim Date: 08/19/2024 10:46:10 AM Sign Date: 08/19/2024 10:46:10 AM Ordering Provider: DEBBIE MERINO [employer] Operator: JULIAN HOLLIS RT(R)(M) letter sent: Abnormal-Needs additional work up BI-RADS 0 Mammogram BI-RADS: 0 Indeterminate Normal [facility] MAIN US BREAST RIGHT LIMITEDon US BREAST RIGHT LIMITED ORIGINAL FROM: [address] [address] PROCEDURE FOR: CARRIE HERBERT [address] [place] [address] Home: PID#: [id number] Exam#: [id number] : 1960 Age: 64 TO: DEBBIE MERINO MD [address] [place] [address] Fax: NO FAX EXAMINATION: ULTRASOUND OF THE RIGHT BREAST 08/19/2024 8:58 am TECHNIQUE: Color flow and laughlin scale targeted ultrasound of the right breast were performed. Permanently stored images were reviewed. COMPARISON: 08/11/2024 mammogram and 08/04/2024 PET-CT scan from [facility]. HISTORY: ORDERING SYSTEM PROVIDED HISTORY: Reason for Exam: Right breast mass. History of bilateral breast carcinoma. FINDINGS: In the right breast 1-2 o'clock there is a 2.1 x 2.8 x 1.1 cm hypoechoic mass with an irregular border, this corresponds to the mammographic abnormality in the PET-CT scan abnormality. No right axillary lymphadenopathy IMPRESSION: Right breast mass, this is suspicious for malignancy and ultrasound-guided biopsy is recommended. Reese Burnett risk calculations do not apply for this patient. BIRADS: BI-RADS: 4: Suspicious RECALL: immediate RECALL TYPE: Biopsy followup LETTER SENT: Biopsy Recommended BI-RADS 4 and 5 Interpreted by: Anita Haddad MD Preliminary Report By: Anita Haddad MD Electronically signed By Anita Haddad MD Dictated Date: 08/19/2024 10:36:07 AM Prelim Date: 08/19/2024 10:49:23 AM Sign Date: 08/19/2024 10:49:23 AM Ordering Provider: DEBBIE MERINO [employer] Operator: JESUSITA BETTS RDMS letter sent: Biopsy Recommended BI-RADS 4 and 5 Ultrasound BI-RADS: 4 Suspicious for malignancy Normal [facility] CBC W Auto Differential pane l (Bld)on 08-11-2024 Basophils (Bld) [#/Vol] 0.02 10*3/uL Normal <0.11 [facility] Comment on above: Order Comment: Speci men Type: BLOOD SPECIMENOrdering Facility: [facility] Address: [address] [place] [address] Performed By: #### 5 7021-8 ####[facility]ENTERNCLIA [id number] [address] LABORATORYCLIA [id number] [place] [address] [place] Basophils/100 WBC (Bld) 1.0 % Normal [facility] Comment on above: Order Comment: Speci men Type: BLOOD SPECIMENOrdering Facility: [facility] Address: [address] [place] [address] Performed By: #### 5 7021-8 ####[facility]ENTERNCLIA [id number] [address] [facility] LABORATORYCLIA [id number] [place] [address] [place] Differential cell count method Nom (Bld) Manual Normal [facility] Comment on above: Order Comment: Speci men Type: BLOOD SPECIMENOrdering Facility: [facility] Address: [address] [place] [address] Performed By: #### 5 7021-8 ####[facility] MILLTOWNCLIA [id number] [address] LABORATORYCLIA [id number] [place] [address] [place] Eosinophils (Bld) [#/Vol] 0.12 10*3/uL Normal <0.46 [facility] Comment on above: Order Comment: Speci men Type: BLOOD SPECIMENOrdering Facility: [facility] Address: [address] [place] [address] Performed By: #### 5 7021-8 ####[facility] MILLWNCLIA [id number] [address] LABORATORYCLIA [id number] [place] [address] [place] Eosinophils/100 WBC (Bld) 6.0 % Normal [facility] Comment on above: Order Comment: Speci men Type: BLOOD SPECIMENOrdering Facility: [facility] Address: [address] [place] [address] Performed By: #### 5 7021-8 ####[facility] MILLWNCLIA [id number] [address] LABORATORYCLIA [id number] [place] [address] [place] Erythrocyte distribution width (RBC) [Ratio] 13.2 % Normal 11.5-15.0 [facility] Comment on above: Order Comment: Speci men Type: BLOOD SPECIMENOrdering Facility: [facility] Address: [address] [place] [address] Performed By: #### 5 7021-8 ####[facility] MILLTOWNCLIA [id number] [address] LABORATORYCLIA [id number] [place] [address] [place] Hematocrit (Bld) [Volume fraction] 33.8 % Low 36.0-46.0 [facility] Comment on above: Order Comment: Speci men Type: BLOOD SPECIMENOrdering Facility: [facility] Address: [address] [place] [address] Performed By: #### 5 7021-8 ####[facility] CENTERTEMITOPELIA [id number] [address] LABORATORYCLIA [id number] [place] [address] [place] Hemoglobin (Bld) [Mass/Vol] 11.5 g/dL Normal 11.5-15.5 [facility] Comment on above: Order Comment: Speci men Type: BLOOD SPECIMENOrdering Facility: [facility] Address: [address] [place] [address] Performed By: #### 5 7021-8 ####[facility] OCALAWTEMITOPELIA [id number] [address] LABORATORYCLIA [id number] [place] [address] [place] Lymphocytes (Bld) [#/Vol] 0.42 10*3/uL Low 1.00-4.00 [facility] Comment on above: Order Comment: Speci men Type: BLOOD SPECIMENOrdering Facility: [facility] Address: [address] [place] [address] Performed By: #### 5 7021-8 ####[facility] MILLWNCLIA [id number] [address] LABORATORYCLIA [id number] [place] [address] [place] Lymphocytes/100 WBC (Bld) 22.0 % Normal [facility] Comment on above: Order Comment: Speci men Type: BLOOD SPECIMENOrdering Facility: [facility] Address: [address] [place] [address] Performed By: #### 5 7021-8 ####[facility] MILLWNCLIA [id number] [address] LABORATORYCLIA [id number] [place] [address] [place] MCH (RBC) [Entitic mass] 29.9 pg Normal 26.0-34.0 [facility] Comment on above: Order Comment: Speci men Type: BLOOD SPECIMENOrdering Facility: [facility] Address: [address] [place] [address] Performed By: #### 5 7021-8 ####[facility] CENTERTEMITOPELIA [id number] [address] LABORATORYCLIA [id number] [place] [address] [place] MCHC (RBC) [Mass/Vol] 34.0 g/dL Normal 30.5-36.0 [facility] Comment on above: Order Comment: Speci men Type: BLOOD SPECIMENOrdering Facility: [facility] Address: [address] [place] [address] Performed By: #### 5 7021-8 ####[facility]ENTERNCLIA [id number] [address] LABORATORYCLIA [id number] [place] [address] [place] MCV (RBC) [Entitic vol] 87.8 fL Normal 80.0-100.0 [facility] Comment on above: Order Comment: Speci men Type: BLOOD SPECIMENOrdering Facility: [facility] Address: [address] [place] [address] Performed By: #### 5 7021-8 ####[facility] OCALAWNCLIA [id number] [address] LABORATORYCLIA [id number] [place] [address] [place] Monocytes (Bld) [#/Vol] 0.23 10*3/uL Normal <0.87 [facility] Comment on above: Order Comment: Speci men Type: BLOOD SPECIMENOrdering Facility: [facility] Address: [address] [place] [address] Performed By: #### 5 7021-8 ####[facility] CENTERLIA [id number] [address] LABORATORYCLIA [id number] [place] [address] [place] Monocytes/100 WBC (Bld) 12.0 % Normal [facility] Comment on above: Order Comment: Speci men Type: BLOOD SPECIMENOrdering Facility: [facility] Address: [address] [place] [address] Performed By: #### 5 7021-8 ####[facility] CENTERLIA [id number] [address] LABORATORYCLIA [id number] [place] [address] [place] Neutrophils (Bld) [#/Vol] 1.14 10*3/uL Low 1.45-7.50 [facility] Comment on above: Order Comment: Speci men Type: BLOOD SPECIMENOrdering Facility: [facility] Address: [address] [place] [address] Performed By: #### 5 7021-8 ####[facility] MILLTOWNCLIA [id number] [address] LABORATORYCLIA [id number] [place] [address] [place] Neutrophils/100 WBC (Bld) 59.0 % Normal [facility] Comment on above: Order Comment: Speci men Type: BLOOD SPECIMENOrdering Facility: [facility] Address: [address] [place] [address] Performed By: #### 5 7021-8 ####[facility] MILLWNCLIA [id number] [address] LABORATORYCLIA [id number] [place] [address] [place] Nucleated RBC (Bld) [#/Vol] 10*3/uL Normal <0.01 [facility] Comment on above: Order Comment: Speci men Type: BLOOD SPECIMENOrdering Facility: [facility] Address: [address] [place] [address] Performed By: #### 5 7021-8 ####[facility] BOULEVARDTOWNCLIA [id number] [address] LABORATORYCLIA [id number] [place] [address] [place] Nucleated RBC/100 WBC (Bld) [Ratio] 0.0 /100 WBC Normal [facility] Comment on above: Order Comment: Speci men Type: BLOOD SPECIMENOrdering Facility: [facility] Address: [address] [place] [address] Performed By: #### 5 7021-8 ####[facility] MILLTOWNCLIA [id number] [address] LABORATORYCLIA [id number] [place] [address] [place] Ovalocytes LM Ql (Bld) Few Normal [facility] Comment on above: Order Comment: Speci men Type: BLOOD SPECIMENOrdering Facility: OUR [facility] Address: [address] [place] [address] Performed By: #### 5 7021-8 ####[facility] BOULEVARDTOWNCLIA [id number] [address] LABORATORYCLIA [id number] [place] [address] [place] Platelet mean volume (Bld) [Entitic vol] 9.0 fL Normal 9.0-12.7 [facility] Comment on above: Order Comment: Speci men Type: BLOOD SPECIMENOrdering Facility: [facility] Address: [address] [place] [address] Performed By: #### 5 7021-8 ####[facility] OCALAWNCLIA [id number] [address] LABORATORYCLIA [id number] [place] [address] [place] Platelets (Bld) [#/Vol] 273 10*3/uL Normal 150-400 [facility] Comment on above: Order Comment: Speci men Type: BLOOD SPECIMENOrdering Facility: [facility] Address: [address] [place] [address] Result Comment: No c lot detected. Performed By: #### 5 7021-8 ####[facility] OCALAWNCLIA [id number] [address] LABORATORYCLIA [id number] [place] [address] [place] Platelets Estimate (Bld) [#/Vol] Adequate Normal [facility] Comment on above: Order Comment: Speci men Type: BLOOD SPECIMENOrdering Facility: [facility] Address: [address] [place] [address] Performed By: #### 5 7021-8 ####[facility] MILLTOWNCLIA [id number] [address] LABORATORYCLIA [id number] [address] [place] RBC (Bld) [#/Vol] 3.85 10*6/uL Low 3.90-5.20 [facility] Comment on above: Order Comment: Speci men Type: BLOOD SPECIMENOrdering Facility: [facility] Address: [facility] [place] [address] Performed By: #### 5 7021-8 ####[facility]ENTERNCLIA [id number] [address] LABORATORYIA [id number] [place] [address] [place] [facility] RED CELL MORPH Reviewed: see result s of individual morphologies Normal [facility] Comment on above: Order Comment: Speci men Type: BLOOD SPECIMENOrdering Facility: [facility] Address: [facility] [place] [address] Performed By: #### 5 7021-8 ####[facility]AWNCL[facility] [id number] [address] LABORATORYCLIA [id number] [place] [address] [place] WBC (Bld) [#/Vol] 1.93 10*3/uL Low 3.70-11.00 [facility] Comment on above: Order Comment: Speci men Type: BLOOD SPECIMENOrdering Facility: [facility] Address: [facility] [place] [id number] Performed By: #### 5 7021-8 ####[facility] MILLTOWNCLIA [id number] [address] [facility] LABORATORYCLIA [id number] [place] [address] [place] CBC W Auto Differential pane l (Bld)on 08-04-2024 Basophils (Bld) [#/Vol] 0.03 10*3/uL Normal <0.11 [facility] Comment on above: Order Comment: Speci men Type: BLOOD SPECIMENOrdering Facility: [facility] Address: [address] [place] [address] Performed By: #### 5 7021-8 ####[facility] ERA [id number] [place] [address] [place] Basophils/100 WBC (Bld) 1.3 % Normal [facility] Comment on above: Order Comment: Speci men Type: BLOOD SPECIMENOrdering Facility: [facility] Address: [address] [place] [address] Performed By: #### 5 7021-8 ####[facility] ERA [id number] [place] [address] [place] [facility] Differential cell count method Nom (Bld) Auto Normal [facility] Comment on above: Order Comment: Speci men Type: BLOOD SPECIMENOrdering Facility: [facility] Address: [address] [place] [address] Performed By: #### 5 7021-8 ####[facility] MED[facility] CENTERLIA [id number] [place] [address] [place] Eosinophils (Bld) [#/Vol] 0.17 10*3/uL Normal <0.46 [facility] Comment on above: Order Comment: Speci men Type: BLOOD SPECIMENOrdering Facility: [facility] Address: [address] [place] [address] Performed By: #### 5 7021-8 ####[facility] MED[facility] CENTERLIA [id number] [place] [address] [place] Eosinophils/100 WBC (Bld) 7.2 % Normal [facility] Comment on above: Order Comment: Speci men Type: BLOOD SPECIMENOrdering Facility: [facility] Address: [address] [place] [address] Performed By: #### 5 7021-8 ####[facility] [id number] [place] [address] [place] Erythrocyte distribution width (RBC) [Ratio] 12.9 % Normal 11.5-15.0 [facility] Comment on above: Order Comment: Speci men Type: BLOOD SPECIMENOrdering Facility: [facility] Address: [address] [place] [address] Performed By: #### 5 7021-8 ####[facility] [id number] [place] [address] [place] Hematocrit (Bld) [Volume fraction] 35.2 % Low 36.0-46.0 [facility] Comment on above: Order Comment: Speci men Type: BLOOD SPECIMENOrdering Facility: [facility] Address: [address] [place] [address] Performed By: #### 5 7021-8 ####[facility] [id number] [place] [address] [place] Hemoglobin (Bld) [Mass/Vol] 11.8 g/dL Normal 11.5-15.5 [facility] Comment on above: Order Comment: Speci men Type: BLOOD SPECIMENOrdering Facility: [facility] Address: [address] [place] [address] Performed By: #### 5 7021-8 ####[facility] [id number] [place] [address] [place] Immature granulocytes (Bld) [#/Vol] 10*3/uL Normal <0.10 [facility] Comment on above: Order Comment: Speci men Type: BLOOD SPECIMENOrdering Facility: [facility] Address: [address] [place] [address] Performed By: #### 5 7021-8 ####[facility] MILLWNCLIA [id number] [place] [address] [place] Immature granulocytes/100 WBC (Bld) 0.4 % Normal [facility] Comment on above: Order Comment: Speci men Type: BLOOD SPECIMENOrdering Facility: [facility] Address: [address] [place] [address] Performed By: #### 5 7021-8 ####[facility]ENTERNCLIA [id number] [place] [address] [place] Lymphocytes (Bld) [#/Vol] 0.53 10*3/uL Low 1.00-4.00 [facility] Comment on above: Order Comment: Speci men Type: BLOOD SPECIMENOrdering Facility: [facility] Address: [address] [place] [address] Performed By: #### 5 7021-8 ####[facility] CENTERLIA [id number] [place] [address] [place] Lymphocytes/100 WBC (Bld) 22.6 % Normal [facility] Comment on above: Order Comment: Speci men Type: BLOOD SPECIMENOrdering Facility: [facility] Address: [address] [place] [address] Performed By: #### 5 7021-8 ####[facility] MED[facility] CENTERLIA [id number] [place] [address] [place] MCH (RBC) [Entitic mass] 29.6 pg Normal 26.0-34.0 [facility] Comment on above: Order Comment: Speci men Type: BLOOD SPECIMENOrdering Facility: [facility] Address: [address] [place] [address] Performed By: #### 5 7021-8 ####[facility] CENTERLIA [id number] [place] [address] [place] MCHC (RBC) [Mass/Vol] 33.5 g/dL Normal 30.5-36.0 [facility] Comment on above: Order Comment: Speci men Type: BLOOD SPECIMENOrdering Facility: [facility] Address: [address] [place] [address] Performed By: #### 5 7021-8 ####[facility] [id number] [place] [address] [place] MCV (RBC) [Entitic vol] 88.4 fL Normal 80.0-100.0 [facility] Comment on above: Order Comment: Speci men Type: BLOOD SPECIMENOrdering Facility: [facility] Address: [address] [place] [address] Performed By: #### 5 7021-8 ####[facility] [id number] [place] [address] [place] Monocytes (Bld) [#/Vol] 0.20 10*3/uL Normal <0.87 [facility] Comment on above: Order Comment: Speci men Type: BLOOD SPECIMENOrdering Facility: [facility] Address: [address] [place] [address] Performed By: #### 5 7021-8 ####[facility] [id number] [place] [address] [place] Monocytes/100 WBC (Bld) 8.5 % Normal [facility] Comment on above: Order Comment: Speci men Type: BLOOD SPECIMENOrdering Facility: [facility] Address: [address] [place] [address] Performed By: #### 5 7021-8 ####[facility] [id number] [place] [address] [place] Neutrophils (Bld) [#/Vol] 1.41 10*3/uL Low 1.45-7.50 [facility] Comment on above: Order Comment: Speci men Type: BLOOD SPECIMENOrdering Facility: [facility] Address: [address] [place] [address] Performed By: #### 5 7021-8 ####[facility] [id number] [place] [address] [place] Neutrophils/100 WBC (Bld) 60.0 % Normal [facility] Comment on above: Order Comment: Speci men Type: BLOOD SPECIMENOrdering Facility: [facility] Address: [address] [place] [address] Performed By: #### 5 7021-8 ####[facility] [id number] [place] [address] [place] Nucleated RBC (Bld) [#/Vol] 10*3/uL Normal <0.01 [facility] Comment on above: Order Comment: Speci men Type: BLOOD SPECIMENOrdering Facility: [facility] Address: [address] [place] [address] Performed By: #### 5 7021-8 ####[facility] CENTERLI [id number] [place] [address] [place] Nucleated RBC/100 WBC (Bld) [Ratio] 0.0 /100 WBC Normal [facility] Comment on above: Order Comment: Speci men Type: BLOOD SPECIMENOrdering Facility: [facility] Address: [address] [place] [address] Performed By: #### 5 7021-8 ####[facility] [id number] [place] [address] [place] Platelet mean volume (Bld) [Entitic vol] 8.3 fL Low 9.0-12.7 [facility] Comment on above: Order Comment: Speci men Type: BLOOD SPECIMENOrdering Facility: [facility] Address: [address] [place] [address] Performed By: #### 5 7021-8 ####[facility] JEROMEA [id number] [place] [address] [place] Platelets (Bld) [#/Vol] 192 10*3/uL Normal 150-400 [facility] Comment on above: Order Comment: Speci men Type: BLOOD SPECIMENOrdering Facility: [facility] Address: [address] [place] [address] Performed By: #### 5 7021-8 ####[facility] OMARLOS ANGELESNCLIA [id number] [place] [address] [place] RBC (Bld) [#/Vol] 3.98 10*6/uL Normal 3.90-5.20 [facility] Comment on above: Order Comment: Speci men Type: BLOOD SPECIMENOrdering Facility: [facility] Address: [address] [place] [address] Performed By: #### 5 7021-8 ####[facility] CENTERTEMITOPEA [id number] [place] [address] [place] WBC (Bld) [#/Vol] 2.35 10*3/uL Low 3.70-11.00 [facility] Comment on above: Order Comment: Speci men Type: BLOOD SPECIMENOrdering Facility: [facility] Address: [address] [place] [address] Performed By: #### 5 7021-8 ####[facility]ENTERNCLIA [id number] [place] [address] [place] CNPNon 08-04-2024 CNPN Normal [facility] Cancer Ag15-3 SerPl-aCncon 0 08-04-2024 Cancer Ag 15-3 Qn 30.6 U/mL High <26.0 [facility] Comment on above: Order Comment: Speci men Type: BLOOD SPECIMENOrdering Facility: [facility] Address: [address] [place], [place] [address] Result Comment: The CA 15-3 test methodology used is the Electrochemiluminescence Immunoassay by [employer]. Results obtained with different methods or kits cannot be used interchangeably. Performed By: #### 6 875-9, 3024-7, 3016-3, 2143-6 ####[facility] LABCLIA [id number] [place] [address] [place] Comprehensive metabolic 2000 panelon 08-04-2024 Albumin [Mass/Vol] 4.1 g/dL Normal 3.9-4.9 [facility] Comment on above: Order Comment: Speci men Type: BLOOD SPECIMENOrdering Facility: [facility] Address: [address] [place] [address] Performed By: #### 2 4323-8 ####[facility] [id number] [place] [address] [place] ALP [Catalytic activity/Vol] 53 U/L Normal 34-123 [facility] Comment on above: Order Comment: Speci men Type: BLOOD SPECIMENOrdering Facility: [facility] Address: [address] [place] [address] Performed By: #### 2 4323-8 ####[facility] [id number] [place] [address] [place] ALT [Catalytic activity/Vol] 11 U/L Normal 7-38 [facility] Comment on above: Order Comment: Speci men Type: BLOOD SPECIMENOrdering Facility: [facility] Address: [address] [place] [address] Performed By: #### 2 4323-8 ####[facility] [id number] [place] [address] [place] Anion gap [Moles/Vol] 6 mmol/L Low 8-15 [facility] Comment on above: Order Comment: Speci men Type: BLOOD SPECIMENOrdering Facility: [facility] Address: [address] [place] [address] Performed By: #### 2 4323-8 ####[facility] MILLTOWNCLIA [id number] [place] [address] [place] AST [Catalytic activity/Vol] 17 U/L Normal 13-35 [facility] Comment on above: Order Comment: Speci men Type: BLOOD SPECIMENOrdering Facility: [facility] Address: [address] [place] [address] Performed By: #### 2 4323-8 ####[facility] MILLDAVIDWTEMITOPELIA [id number] [place] [address] [place] Bilirubin [Mass/Vol] 0.3 mg/dL Normal 0.2-1.3 [facility] Comment on above: Order Comment: Speci men Type: BLOOD SPECIMENOrdering Facility: [facility] Address: [address] [place] [address] Performed By: #### 2 4323-8 ####[facility] MILLTOWNCLIA [id number] [place] [address] [place] Calcium [Mass/Vol] 9.1 mg/dL Normal 8.5-10.2 [facility] Comment on above: Order Comment: Speci men Type: BLOOD SPECIMENOrdering Facility: [facility] Address: [address] [place] [address] Performed By: #### 2 4323-8 ####[facility] MILLTOWNCLIA [id number] [place] [address] [place] Chloride [Moles/Vol] 97 mmol/L Low 98-107 [facility] Comment on above: Order Comment: Speci men Type: BLOOD SPECIMENOrdering Facility: [facility] Address: [address] [place] [address] Performed By: #### 2 4323-8 ####[facility] [id number] [place] [address] [place] CO2 [Moles/Vol] 31 mmol/L High 22-30 [facility] Comment on above: Order Comment: Speci men Type: BLOOD SPECIMENOrdering Facility: [facility] Address: [address] [place] [address] Performed By: #### 2 4323-8 ####[facility] [id number] [place] [address] [place] Creatinine [Mass/Vol] 0.62 mg/dL Normal 0.58-0.96 [facility] Comment on above: Order Comment: Speci men Type: BLOOD SPECIMENOrdering Facility: [facility] Address: [address] [place] [address] Performed By: #### 2 4323-8 ####[facility] [id number] [place] [address] [place] Creatinine and Glomerular filtration rate.predicted panel (S/P/Bld) 99 mL/min/1.73m??? Normal >=60 [facility] Comment on above: Order Comment: Speci men Type: BLOOD SPECIMENOrdering Facility: [facility] Address: [address] [place] [address] Result Comment: Alayna mated Glomerular Filtration Rate (eGFR) is calculated using the 2020 CKD-EPI creatinine equation. This equation utilizes serum creatinine, sex, and age as parameters. The creatinine assay has traceable calibration to isotope dilution-mass spectrometry. Refer to KDIGO guidelines for clinical interpretation. In patients with unstable renal function, e.g. those with acute kidney injury, the eGFR may not accurately reflect actual GFR. Performed By: #### 2 4323-8 ####[facility]ENTERNCLIA [id number] [place] [address] [place] Glucose [Mass/Vol] 109 mg/dL High 74-99 [facility] Comment on above: Order Comment: Speci men Type: BLOOD SPECIMENOrdering Facility: [facility] Address: [address] [place], [place] [address] Result Comment: The Stateless Diabetes Association (ADA) provides guidance for cutoff values for fasting glucose and random glucose. The ADA defines fasting as no caloric intake for at least 8 hours. Fasting plasma glucose results between 100 to 125 mg/dL indicate increased risk for diabetes (prediabetes).Fasting plasma glucose results greater than or equal to 126 mg/dL meet the criteria for diagnosis of diabetes. In the absence of unequivocal hyperglycemia, results should be confirmed by repeat testing. In a patient with classic symptoms of hyperglycemia or hyperglycemic crisis, random plasma glucose results greater than or equal to 200 mg/dL meet the criteria for diagnosis of diabetes.Reference: Standards of Medical Care in Diabetes 2016, Stateless Diabetes Association. Diabetes Care. 2016.39(Suppl 1). Performed By: #### 2 4323-8 ####[facility] [id number] [place] [address] [place] Potassium [Moles/Vol] 4.0 mmol/L Normal 3.7-5.1 [facility] Comment on above: Order Comment: Mikhaili cherelle Type: BLOOD SPECIMENOrdering Facility: [facility] Address: [address] [place], [place] [address] Performed By: #### 2 4323-8 ####[facility] [id number] [place] [address] [place] Protein [Mass/Vol] 6.4 g/dL Normal 6.3-8.0 [facility] Comment on above: Order Comment: Speci men Type: BLOOD SPECIMENOrdering Facility: [facility] Address: [address] [place], [place] [address] Performed By: #### 2 4323-8 ####[facility] [id number] [place] [address] [place] Sodium [Moles/Vol] 134 mmol/L Low 136-144 [facility] Comment on above: Order Comment: Speci men Type: BLOOD SPECIMENOrdering Facility: [facility] Address: [address] [place] [address] Performed By: #### 2 4323-8 ####[facility]ENTERNC[facility]AV[facility] [id number] [place] [address] [place] Urea nitrogen [Mass/Vol] 12 mg/dL Normal 7-21 [facility] Comment on above: Order Comment: Speci men Type: BLOOD SPECIMENOrdering Facility: [facility] Address: [address] [place] [address] Performed By: #### 2 4323-8 ####[facility]ENTERNCLI [id number] [place] [address] [place] Cortis SerPl-mCncon 08-05-19 25 Cortisol [Mass/Vol] 5.8 ug/dL Normal 4.8-19.5 [facility] Comment on above: Order Comment: Speci men Type: BLOOD SPECIMENOrdering Facility: [facility] Address: [address] [place] [address] Result Comment: Prov ided reference range is from 6-10 AM sample collection time.Cortisol Reference Range: 6-10 AM = 4.8-19.5 ug/dL, 4-8 PM = 2.5-11.9 ug/dL Performed By: #### 6 875-9, 3024-7, 3016-3, 2143-6 ####[facility] LABCLIA [id number] [place] [address] [place] PET/CT Tumor Base -Thigh Sub son 08-04-2024 PET/CT Tumor Base -Thigh Subs [facility] [address] [address] PET/CT Tumor Base -Thigh Subs MR#: [id number] Acct: [id number] Name: Everette HERBERT Rep #: [id number] : 1960 F 64 From: [facility] Murillo PCP: Dr. Hellen Lafleur MD Status: REG CLI Study: PET/CT Tumor Base -Thigh Subs Date of Exam: Exam# [id number] Ordering Dr: Hellen Zhu DO PROCEDURE: PET/CT TUMOR BASE -THIGH SUBS 08/04/2024 REASON FOR EXAM: 64 y/o F with BREAST TECHNIQUE: Following the intravenous administration of radionucleotide, image acquisition on a dedicated PET/CT unit was performed at one hour post injection. A preliminary CT study encompassing the Skull base, neck, chest, abdomen, pelvis, and proximal thighs was performed for purposes of attenuation correction and anatomic localization. The proximal thighs were also included. The patient's blood glucose level was 108 mg/dL (allowable range: 50-180 mg/dL). RADIOPHARMACEUTICAL: 13.47 mCi 18F-FDG (Fluorodeoxyglucose F18) IV was injected into he patient. RADIATION DOSE SUMMARY: Effective Dose: Approximately 7 mSv for a standard whole-body PET scan Organ Doses: Varies by organ, with higher doses typically to the bladder, liver, and brain COMPARISON: COMPARISON FROM CT, PET OR OTHER PERTINENT EXAMS: PET/CT of 09/03/2023. FINDINGS: Physiologic uptake: There may be expected metabolic uptake within the brain, tongue and floor of the mouth and larynx/vocal cords, heart, odilia (many normal individuals have hilar uptake in less than 3 nodes with mildly avid hilar nodes less than 2.7 SUV), liver and spleen, system, and GI tract and symmetric muscle uptake. FDG AVID AND NON-AVID LESIONS. Reported avid SUV values (g/mL*) are maximum SUV. NECK: There are no significant neck abnormalities. CHEST: Breasts and chest wall- In the medial right breast, overlying the breast prosthesis, is seen a new breast mass, with increased metabolism, and SUV max of 2.6. This is concerning for malignancy. In addition to marked skin thickening, increased uptake is seen throughout much of the left breast. This is concerning for Paget's disease of the breast versus infection/inflammation versus post radiation change. Bilateral breast prostheses are seen. Axilla- There are no significant axillary abnormalities. Lung parenchyma- There are no significant lung parenchyma abnormalities. Mediastinum- There are no significant hilar or mediastinal adenopathy. Pleura- There are no significant pleural abnormalities. ABDOMEN: Stomach- No significant abnormalities. Liver- No significant abnormalities. Spleen- No significant abnormalities. Pancrease- No significant abnormalities. Kidneys- No significant abnormalities. Bowel- Normal bowel activity. Spine- No significant abnormalities. PELVIS: Bowel- Normal physiologic bowel activity is identified. Masses- There are no pelvic masses. LOWER EXTREMITIES: Bones- With the use of bone window settings, there are no osteolytic or osteoblastic lesions. There are no FDG avid lesions within the visualized portion of the axial skeleton. PET/PET/CT Tumor Base -Thigh Subs IMPRESSION: FDG avid- In the medial right breast, overlying the breast prosthesis, is seen a new breast mass, with increased metabolism. This is concerning for malignancy. In addition to marked skin thickening, increased uptake is seen throughout much of the left breast. This is concerning for Paget's disease of the breast versus infection/inflammation versus post radiation change. Other: Bilateral breast prostheses in place. Please note the low-dose CT scan was performed to facilitate PET image reconstruction and anatomic localization and does not replace a diagnostic CT. Any diagnostic CT requested and performed at the time of the PET will be reported separately. Reading Location: [place] [address] CC: Dr. Hellen Zhu DO; Dr. 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 Positron emission tomography scan reportOrdered By: Lee Anaya on 08-04-2024 PT Unspecified body region [facility] [address] [place] [address] PET/CT Tumor Base -Thigh Subs MR#: [id number] Acct: [id number] Name: Everette HERBERT Rep #: [id number] : 1960 F 64 From: Alexsander Anaya MD PCP: Dr. Hellen Lafleur MD Status: REG C ELICIA Study:PET/CT Tumor Base -Thigh Subs Date of Everette xam: 08/04/24 Exam# [id number] Ordering Dr: Kezia Zhu DO PROCEDURE: PET/CT TUMOR BASE -THIGH SUBS 08/04/2024 REASON FOR EXAM: 64 y/o F with BREAST TECHNIQUE: Following the intravenous administration of radionucleotide, image acquisition on a dedicated PET/CT unit was performed at one hour post injection. A preliminary CT study encompassing the Skull base, neck, chest, abdomen, pelvis, and proximal thighs was performed for purposes of attenuation correction and anatomic localization. The proximal thighs were also included. The patient's blood glucose level was 108 mg/dL (allowable range: 50-180 mg/dL). RADIOPHARMACEUTICAL: 13.47 mCi 18F-FDG (Fluorodeoxyglucose F18) IV was injected into he patient. RADIATION DOSE SUMMARY: Effective Dose: Approximately 7 mSv for a standard whole-body PET scan Organ Doses: Varies by organ, with higher doses typically to the bladder, liver,and brain COMPARISON: COMPARISON FROM CT, PET OR OTHER PERTINENT EXAMS: PET/CT of 09/03/2023. FINDINGS: Physiologic uptake: There may be expected metabolic uptake within the brain, tongue and floor of the mouth and larynx/vocal cords, heart, odilia (many normal individuals have hilar uptake in less than 3 nodes with mildly avid hilar nodes less than 2.7 SUV), liver and spleen, system, and GI tract and symmetric muscle uptake. FDG AVID AND NON-AVID LESIONS. Reported avid SUV values (g/mL*) are maximum SUV. NECK: There are no significant neck abnormalities. CHEST: Breasts and chest wall- In the medial right breast, overlying the breast prosthesis, is seen a new breast mass, with increased metabolism, and SUV max of 2.6. This is concerning for malignancy. In addition to marked skin thickening, increased uptake is seen throughout much of the left breast. This is concerning for Paget's disease of the breast versus infection/inflammation versus post radiation change. Bilateral breast prostheses are seen. Axilla- There are no significant axillary abnormalities. Lung parenchyma- There are no significant lung parenchyma abnormalities. Mediastinum- There are no significant hilar or mediastinal adenopathy. Pleura- There are no significant pleural abnormalities. ABDOMEN: Stomach- No significant abnormalities. Liver- No significant abnormalities. Spleen- No significant abnormalities. Pancrease- No significant abnormalities. Kidneys- No significant abnormalities. Bowel- Normal bowel activity. Spine- No significant abnormalities. PELVIS: Bowel- Normal physiologic bowel activity is identified. Masses- There are no pelvic masses. LOWER EXTREMITIES: Bones- With the use of bone window settings, there are no osteolytic or osteoblastic lesions. There are no FDG avid lesions within the visualized portion of the axial skeleton. PET/PET/CT Tumor Base -Thigh Subs IMPRESSION: FDG avid- In the medial right breast, overlying the breast prosthesis, is seen a new breast mass, with increased metabolism. This is concerning for malignancy. In addition to marked skin thickening, increased uptake is seen throughout much of the left breast. This is concerning for Paget's disease of the breast versus infection/inflammation versus post radiation change. Other: Bilateral breast prostheses in place. Please note the low-dose CT scan was performed to facilitate PET image reconstruction and anatomic localization and does not replace a diagnostic CT. Any diagnostic CT requested and performed at the time of the PET will be reported separately. Reading Location: [place] [address] CC: Dr. Hellen Zhu DO; Dr. Hellen Lafleur MD ~ 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: Signed [facility] T4 Free SerPl-mCncon 025 Free T4 [Mass/Vol] 1.1 ng/dL Normal 0.9-1.7 [facility] Comment on above: Order Comment: Speci men Type: BLOOD SPECIMENOrdering Facility: [facility] Address: [address] [place] [address] Performed By: #### 6 875-9, 3024-7, 301-3, 2142-08 ####[facility] [id number] [place] [address] [place] TSH SerPl-aCncon 08-04-2024 TSH Qn 0.769 m[IU]/L Normal 0.270-4.20 0 [facility] Comment on above: Order Comment: Speci [facility] Type: BLOOD SPECIMENOrdering Facility: [facility] Address: [address] [place] [address] Performed By: #### 6 875-9, 3024-7, 3015-3, 2142-08 ####[facility] [id number] [place] [address] [place] MR Brain WO and W contrast I Von 07-30-2024 IMPRESSION: No evidence of intracranial metastatic disease. 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: PSCB Transcribe Date/Time: Jul 30 2024 2:33P Dictated by : FERNIE QUIGLEY MD This examination was interpreted and the report reviewed and electronically signed by: FERNIE QUIGLEY MD on Jul 30 2024 2:38PM [facility] DIVISION OF RADIOLOGY * * *Final Report* * * DATE OF EXAM: Jul 30 2024 2:18PM [facility] 0295 - MRI BRAIN WO/W IVCON / PROCEDURE REASON: multiple diagnoses * * * * Physician Interpretation * * * * EXAMINATION: MRI BRAIN WO/W IVCON CLINICAL HISTORY: Malignant neoplasm of overlapping sites of left breast in female, estrogen receptor negative (HCC) Malignant neoplasm of overlapping sites of left breast in female, estrogen receptor negative (HCC) Triple negative breast cancer (HCC) TECHNIQUE: Routine brain MRI protocol without and with contrast including diffusion images. MQ: MRBWOW_2 Contrast: 5.5 mL Elucirem IV COMPARISON: 04/08/2023 RESULT: Acute Change: There is no evidence of restricted diffusion to suggest an acute infarct. Hemorrhage: No evidence of prior parenchymal hemorrhage on the susceptibility weighted images. Mass Lesion/ Mass Effect: No evidence of an intracranial mass or extra-axial fluid collection. No abnormal parenchymal or leptomeningeal enhancement is noted following contrast administration. No significant mass effect. Chronic Change: The white matter is within normal limits of signal intensity for age. Parenchyma: No significant volume loss for age. The brain parenchyma is otherwise within normal limits of signal intensity and morphology. Ventricles: Normal caliber and morphology. Skull Base: Hypothalamic and pituitary region are grossly normal. Craniocervical junction is normal. No significant marrow replacement process. Vasculature: Major intracranial arterial structures, and dural venous sinuses show typical flow void, suggesting patency by spin echo criteria. Other: The visualized paranasal sinuses and mastoid air cells are clear. Right-sided lens replacement. The orbits and extracranial soft tissues are unremarkable. DIVISION OF RADIOLOGY Provider, [facility] - 07/30/2024 * * *Final Report* * * DATE OF EXAM: Jul 30 2024 2:18PM [facility] 0295 - MRI BRAIN WO/W IVCON / PROCEDURE REASON: multiple diagnoses * * * * Physician Interpretation * * * * EXAMINATION: MRI BRAIN WO/W IVCON CLINICAL HISTORY: Malignant neoplasm of overlapping sites of left breast in female, estrogen receptor negative (HCC) Malignant neoplasm of overlapping sites of left breast in female, estrogen receptor negative (HCC) Triple negative breast cancer (HCC) TECHNIQUE: Routine brain MRI protocol without and with contrast including diffusion images. MQ: MRBWOW_2 Contrast: 5.5 mL Elucirem IV COMPARISON: 04/08/2023 RESULT: Acute Change: There is no evidence of restricted diffusion to suggest an acute infarct. Hemorrhage: No evidence of prior parenchymal hemorrhage on the susceptibility weighted images. Mass Lesion/ Mass Effect: No evidence of an intracranial mass or extra-axial fluid collection. No abnormal parenchymal or leptomeningeal enhancement is noted following contrast administration. No significant mass effect. Chronic Change: The white matter is within normal limits of signal intensity for age. Parenchyma: No significant volume loss for age. The brain parenchyma is otherwise within normal limits of signal intensity and morphology. Ventricles: Normal caliber and morphology. Skull Base: Hypothalamic and pituitary region are grossly normal. Craniocervical junction is normal. No significant marrow replacement process. Vasculature: Major intracranial arterial structures, and dural venous sinuses show typical flow void, suggesting patency by spin echo criteria. Other: The visualized paranasal sinuses and mastoid air cells are clear. Right-sided lens replacement. The orbits and extracranial soft tissues are unremarkable. IMPRESSION IMPRESSION: No evidence of intracranial metastatic disease. 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: [facility] Transcribe Date/Time: Jul 30 2024 2:33P Dictated by : FERNIE QUIGLEY MD This examination was interpreted and the report reviewed and electronically signed by: FERNIE QUIGLEY MD on Jul 30 2024 2:38PM EST [facility] Radiology Study observation (narrative) [facility] MR Brain WO and W contrast I VOrdered By: Ccf Provider on 07-30-2024 [facility] MRI BRAIN WO/W IVCONon 07-30 MRI BRAIN WO/W IVCON Normal [facility] CNPNon 07-29-2024 CNPN Normal [facility] CBC W Auto Differential pane l (Bld)on 07-28-2024 Basophils (Bld) [#/Vol] 0.04 10*3/uL NINF [facility] Basophils/100 WBC (Bld) 1.1 % [facility] Differential cell count method Nom (Bld) Auto [facility] Eosinophils (Bld) [#/Vol] 0.22 10*3/uL [facility] Eosinophils/100 WBC (Bld) 6.1 % [facility] Erythrocyte distribution width (RBC) [Ratio] 13.1 % 11.5 - 15.0 % [facility] Hematocrit (Bld) [Volume fraction] 37.5 % 36.0 - 46.0 % [facility] Hemoglobin (Bld) [Mass/Vol] 12.6 g/dL 11.5 - 15.5 g/dL [facility] Immature granulocytes (Bld) [#/Vol] [facility] Immature granulocytes/100 WBC (Bld) 0.3 % [facility] Interpretation and review of laboratory results Abnormal [facility] Lymphocytes (Bld) [#/Vol] 0.61 10*3/uL Low [facility] Lymphocytes/100 WBC (Bld) 16.9 % [facility] MCH (RBC) [Entitic mass] 29.5 pg 26.0 - 34.0 pg [facility] MCHC (RBC) [Mass/Vol] 33.6 g/dL 30.5 - 36.0 g/dL [facility] MCV (RBC) [Entitic vol] 87.8 fL 80.0 - 100.0 fL [facility] Monocytes (Bld) [#/Vol] 0.48 10*3/uL [facility] Monocytes/100 WBC (Bld) 13.3 % [facility] Neutrophils (Bld) [#/Vol] 2.24 10*3/uL [facility] Neutrophils/100 WBC (Bld) 62.3 % [facility] Nucleated RBC (Bld) [#/Vol] [facility] Nucleated RBC/100 WBC (Bld) [Ratio] 0 % /100 WBC [facility] Platelet mean volume (Bld) [Entitic vol] 8.5 fL Low 9.0 - 12.7 fL [facility] Platelets (Bld) [#/Vol] 277 10*3/uL [facility] RBC (Bld) [#/Vol] 4.27 10*6/uL 3.90 - 5.20 m/uL [facility] WBC (Bld) [#/Vol] 3.6 10*3/uL Low [facility] Basophils (Bld) [#/Vol] 0.04 10*3/uL Normal <0.11 [facility] Comment on above: Order Comment: Speci men Type: BLOOD SPECIMENOrdering Facility: [facility] Address: [address] [place] [address] Performed By: #### 5 7021-8 ####[facility] OMARWNCLIA [id number] [place] [address] [place] Basophils/100 WBC (Bld) 1.1 % Normal [facility] Comment on above: Order Comment: Speci men Type: BLOOD SPECIMENOrdering Facility: [facility] Address: [address] [place] [address] Performed By: #### 5 7021-8 ####[facility] CENTERLIA [id number] [place] [address] [place] Differential cell count method Nom (Bld) Auto Normal [facility] Comment on above: Order Comment: Speci men Type: BLOOD SPECIMENOrdering Facility: [facility] Address: [address] [place] [address] Performed By: #### 5 7021-8 ####[facility] [id number] [place] [address] [place] Eosinophils (Bld) [#/Vol] 0.22 10*3/uL Normal <0.46 [facility] Comment on above: Order Comment: Speci men Type: BLOOD SPECIMENOrdering Facility: [facility] Address: [address] [place] [address] Performed By: #### 5 7021-8 ####[facility] MILLWNCLIA [id number] [place] [address] [place] Eosinophils/100 WBC (Bld) 6.1 % Normal [facility] Comment on above: Order Comment: Speci men Type: BLOOD SPECIMENOrdering Facility: [facility] Address: [address] [place] [address] Performed By: #### 5 7021-8 ####[facility] OMARWNCLIA [id number] [place] [address] [place] Erythrocyte distribution width (RBC) [Ratio] 13.1 % Normal 11.5-15.0 [facility] Comment on above: Order Comment: Speci men Type: BLOOD SPECIMENOrdering Facility: [facility] Address: [address] [place] [address] Performed By: #### 5 7021-8 ####[facility] CENTERLIA [id number] [place] [address] [place] Hematocrit (Bld) [Volume fraction] 37.5 % Normal 36.0-46.0 [facility] Comment on above: Order Comment: Speci men Type: BLOOD SPECIMENOrdering Facility: [facility] Address: [address] [place] [address] Performed By: #### 5 7021-8 ####[facility] [id number] [place] [address] [place] Hemoglobin (Bld) [Mass/Vol] 12.6 g/dL Normal 11.5-15.5 [facility] Comment on above: Order Comment: Speci men Type: BLOOD SPECIMENOrdering Facility: [facility] Address: [address] [place] [address] Performed By: #### 5 7021-8 ####[facility] CENTERLIA [id number] [place] [address] [place] Immature granulocytes (Bld) [#/Vol] 10*3/uL Normal <0.10 [facility] Comment on above: Order Comment: Speci men Type: BLOOD SPECIMENOrdering Facility: [facility] Address: [address] [place] [address] Performed By: #### 5 7021-8 ####[facility]CLI [id number] [place] [address] [place] Immature granulocytes/100 WBC (Bld) 0.3 % Normal [facility] Comment on above: Order Comment: Speci men Type: BLOOD SPECIMENOrdering Facility: [facility] Address: [address] [place] [address] Performed By: #### 5 7021-8 ####[facility]NC[facility] [id number] [place] [address] [place] Lymphocytes (Bld) [#/Vol] 0.61 10*3/uL Low 1.00-4.00 [facility] Comment on above: Order Comment: Speci men Type: BLOOD SPECIMENOrdering Facility: [facility] Address: [address] [place] [address] Performed By: #### 5 7021-8 ####[facility] [id number] [place] [address] [place] Lymphocytes/100 WBC (Bld) 16.9 % Normal [facility] Comment on above: Order Comment: Speci men Type: BLOOD SPECIMENOrdering Facility: [facility] Address: [address] [place] [address] Performed By: #### 5 7021-8 ####[facility] [id number] [place] [address] [place] MCH (RBC) [Entitic mass] 29.5 pg Normal 26.0-34.0 [facility] Comment on above: Order Comment: Speci men Type: BLOOD SPECIMENOrdering Facility: [facility] Address: [address] [place] [address] Performed By: #### 5 7021-8 ####[facility] [id number] [place] [address] [place] MCHC (RBC) [Mass/Vol] 33.6 g/dL Normal 30.5-36.0 [facility] Comment on above: Order Comment: Speci men Type: BLOOD SPECIMENOrdering Facility: [facility] Address: [address] [place] [address] Performed By: #### 5 7021-8 ####[facility] CENTERNANO [id number] [place] [address] [place] MCV (RBC) [Entitic vol] 87.8 fL Normal 80.0-100.0 [facility] Comment on above: Order Comment: Speci men Type: BLOOD SPECIMENOrdering Facility: [facility] Address: [address] [place] [address] Performed By: #### 5 7021-8 ####[facility] [id number] [place] [address] [place] Monocytes (Bld) [#/Vol] 0.48 10*3/uL Normal <0.87 [facility] Comment on above: Order Comment: Speci men Type: BLOOD SPECIMENOrdering Facility: [facility] Address: [address] [place] [address] Performed By: #### 5 7021-8 ####[facility] ERA [id number] [place] [address] [place] Monocytes/100 WBC (Bld) 13.3 % Normal [facility] Comment on above: Order Comment: Speci men Type: BLOOD SPECIMENOrdering Facility: [facility] Address: [address] [place] [address] Performed By: #### 5 7021-8 ####[facility]ENTERNCLIA [id number] [place] [address] [place] Neutrophils (Bld) [#/Vol] 2.24 10*3/uL Normal 1.45-7.50 [facility] Comment on above: Order Comment: Speci men Type: BLOOD SPECIMENOrdering Facility: [facility] Address: [address] [place] [address] Performed By: #### 5 7021-8 ####[facility] OMARLALILIA [id number] [place] [address] [place] Neutrophils/100 WBC (Bld) 62.3 % Normal [facility] Comment on above: Order Comment: Speci men Type: BLOOD SPECIMENOrdering Facility: [facility] Address: [address] [place] [address] Performed By: #### 5 7021-8 ####[facility]ENTERNANO [id number] [place] [address] [place] Nucleated RBC (Bld) [#/Vol] 10*3/uL Normal <0.01 [facility] Comment on above: Order Comment: Speci men Type: BLOOD SPECIMENOrdering Facility: [facility] Address: [address] [place] [address] Performed By: #### 5 7021-8 ####[facility] [id number] [place] [address] [place] Nucleated RBC/100 WBC (Bld) [Ratio] 0.0 /100 WBC Normal [facility] Comment on above: Order Comment: Speci men Type: BLOOD SPECIMENOrdering Facility: [facility] Address: [address] [place] [address] Performed By: #### 5 7021-8 ####[facility] CENTERNATALI [id number] [place] [address] [place] Platelet mean volume (Bld) [Entitic vol] 8.5 fL Low 9.0-12.7 [facility] Comment on above: Order Comment: Speci men Type: BLOOD SPECIMENOrdering Facility: [facility] Address: [address] [place] [address] Performed By: #### 5 7021-8 ####[facility] CENTERLIA [id number] [place] [address] [place] Platelets (Bld) [#/Vol] 277 10*3/uL Normal 150-400 [facility] Comment on above: Order Comment: Speci men Type: BLOOD SPECIMENOrdering Facility: [facility] Address: [address] [place] [address] Performed By: #### 5 7021-8 ####[facility]ENTERNCLIA [id number] [place] [address] [place] RBC (Bld) [#/Vol] 4.27 10*6/uL Normal 3.90-5.20 [facility] Comment on above: Order Comment: Speci men Type: BLOOD SPECIMENOrdering Facility: [facility] Address: [address] [place] [address] Performed By: #### 5 7021-8 ####[facility]ENTERNCLIA [id number] [place] [address] [place] WBC (Bld) [#/Vol] 3.60 10*3/uL Low 3.70-11.00 [facility] Comment on above: Order Comment: Speci men Type: BLOOD SPECIMENOrdering Facility: [facility] Address: [address] [place] [address] Performed By: #### 5 7021-8 ####[facility]ENTERNCLIA [id number] [place] [address] [place] CNPNon 07-28-2024 CNPN Normal [facility] Comprehensive metabolic 2000 panelOrdered By: Kat Araujo on 07-28-2024 Albumin [Mass/Vol] 4.3 g/dL 3.9 - 4.9 g/dL [facility] ALP [Catalytic activity/Vol] 69 U/L 34 - 123 U/L [facility] ALT [Catalytic activity/Vol] 10 U/L 7 - 38 U/L [facility] Anion gap [Moles/Vol] 8 mmol/L 8 - 15 mmol/L [facility] AST [Catalytic activity/Vol] 18 U/L 13 - 35 U/L [facility] Bilirubin [Mass/Vol] 0.3 mg/dL 0.2 - 1.3 mg/dL [facility] Calcium [Mass/Vol] 9.7 mg/dL 8.5 - 10. 2 mg/dL [facility] Chloride [Moles/Vol] 97 mmol/L Low 98 - 107 mmol/L [facility] CO2 [Moles/Vol] 30 mmol/L 22 - 30 mmol/L [facility] Creatinine [Mass/Vol] 0.67 mg/dL 0.58 - 0.96 mg/dL [facility] GFR/1.73 sq M.predicted among non-blacks MDRD (S/P/Bld) [Vol rate/Area] 97 mL/min/{1.73_m2} - PINF [facility] Comment on above: Estimated Glomerular Filtration Rate (eGFR) is calculated using the 2020 CKD-EPI creatinine equation. This equation utilizes serum creatinine, sex, and age as parameters. The creatinine assay has traceable calibration to isotope dilution-mass spectrometry. Refer to KDIGO guidelines for clinical interpretation. In patients with unstable renal function, e.g. those with acute kidney injury, the eGFR may not accurately reflect actual GFR. Glucose [Mass/Vol] 88 mg/dL 74 - 99 mg/dL [facility] Comment on above: The [employer] s Association (ADA) provides guidance for cutoff values for fasting glucose and random glucose. The ADA defines fasting as no caloric intake for at least 8 hours. Fasting plasma glucose results between 100 to 125 mg/dL indicate increased risk for diabetes (prediabetes). Fasting plasma glucose results greater than or equal to 126 mg/dL meet the criteria for diagnosis of diabetes. In the absence of unequivocal hyperglycemia, results should be confirmed by repeat testing. In a patient with classic symptoms of hyperglycemia or hyperglycemic crisis, random plasma glucose results greater than or equal to 200 mg/dL meet the criteria for diagnosis of diabetes. Reference: Standards of Medical Care in Diabetes 2016, Stateless Diabetes Association. Diabetes Care. 2016.39(Suppl 1). Interpretation and review of laboratory results Abnormal [facility] Potassium [Moles/Vol] 4.1 mmol/L 3.7 - 5.1 mmol/L [facility] Protein [Mass/Vol] 6.8 g/dL 6.3 - 8.0 g/dL [facility] Sodium [Moles/Vol] 135 mmol/L Low 136 - 144 mmol/L [facility] Urea nitrogen [Mass/Vol] 17 mg/dL 7 - 21 mg/dL [facility] Comprehensive metabolic 2000 panelon 07-28-2024 Albumin [Mass/Vol] 4.3 g/dL Normal 3.9-4.9 [facility] Comment on above: Order Comment: Speci men Type: BLOOD SPECIMENOrdering Facility: [facility] Address: [address] [place] [address] Performed By: #### 2 4323-8 ####[facility] MILLTOWNCLIA [id number] [place] [address] [place] ALP [Catalytic activity/Vol] 69 U/L Normal 34-123 [facility] Comment on above: Order Comment: Speci men Type: BLOOD SPECIMENOrdering Facility: [facility] Address: [address] [place] [address] Performed By: #### 2 4323-8 ####[facility] MILLTOWNCLIA [id number] [place] [address] [place] ALT [Catalytic activity/Vol] 10 U/L Normal 7-38 [facility] Comment on above: Order Comment: Speci men Type: BLOOD SPECIMENOrdering Facility: [facility] Address: [address] [place] [address] Performed By: #### 2 4323-8 ####[facility] [id number] [place] [address] [place] Anion gap [Moles/Vol] 8 mmol/L Normal 8-15 [facility] Comment on above: Order Comment: Speci men Type: BLOOD SPECIMENOrdering Facility: [facility] Address: [address] [place] [address] Performed By: #### 2 4323-8 ####[facility] MILLTOWNCLIA [id number] [place] [address] [place] AST [Catalytic activity/Vol] 18 U/L Normal 13-35 [facility] Comment on above: Order Comment: Speci men Type: BLOOD SPECIMENOrdering Facility: [facility] Address: [address] [place] [address] Performed By: #### 2 4323-8 ####[facility] NAVNEETLIA [id number] [place] [address] [place] Bilirubin [Mass/Vol] 0.3 mg/dL Normal 0.2-1.3 [facility] Comment on above: Order Comment: Speci men Type: BLOOD SPECIMENOrdering Facility: [facility] Address: [address] [place] [address] Performed By: #### 2 4323-8 ####[facility]ERTEMITOPELIA [id number] [place] [address] [place] Calcium [Mass/Vol] 9.7 mg/dL Normal 8.5-10.2 [facility] Comment on above: Order Comment: Speci men Type: BLOOD SPECIMENOrdering Facility: [facility] Address: [address] [place] [address] Performed By: #### 2 4323-8 ####[facility]ERTEMITOPELIA [id number] [place] [address] [place] Chloride [Moles/Vol] 97 mmol/L Low 98-107 [facility] Comment on above: Order Comment: Speci men Type: BLOOD SPECIMENOrdering Facility: [facility] Address: [address] [place] [address] Performed By: #### 2 4323-8 ####[facility]ERNCLIA [id number] [place] [address] [place] CO2 [Moles/Vol] 30 mmol/L Normal 22-30 [facility] Comment on above: Order Comment: Speci men Type: BLOOD SPECIMENOrdering Facility: [facility] Address: [address] [place] [address] Performed By: #### 2 4323-8 ####[facility]ERNCLI [id number] [place] [address] [place] [facility] Creatinine [Mass/Vol] 0.67 mg/dL Normal 0.58-0.96 [facility] Comment on above: Order Comment: [place] villarreal Type: BLOOD SPECIMENOrdering Facility: [facility] Address: [address] [place] [address] Performed By: #### 2 4323-8 ####[facility] [id number] [place] [address] [place] Creatinine and Glomerular filtration rate.predicted panel (S/P/Bld) 97 mL/min/1.73m??? Normal >=60 [facility] Comment on above: Order Comment: [place] [facility] Type: BLOOD SPECIMENOrdering Facility: [facility] Address: [address] [place] [address] Result Comment: Alayna mated Glomerular Filtration Rate (eGFR) is calculated using the 2020 CKD-EPI creatinine equation. This equation utilizes serum creatinine, sex, and age as parameters. The creatinine assay has traceable calibration to isotope dilution-mass spectrometry. Refer to KDIGO guidelines for clinical interpretation. In patients with unstable renal function, e.g. those with acute kidney injury, the eGFR may not accurately reflect actual GFR. Performed By: #### 2 4323-8 ####[facility] ERA [id number] [place] [address] [place] Glucose [Mass/Vol] 88 mg/dL Normal 74-99 [facility] Comment on above: Order Comment: Speci men Type: BLOOD SPECIMENOrdering Facility: [facility] Address: [address] [place] [address] Result Comment: The Stateless Diabetes Association (ADA) provides guidance for cutoff values for fasting glucose and random glucose. The ADA defines fasting as no caloric intake for at least 8 hours. Fasting plasma glucose results between 100 to 125 mg/dL indicate increased risk for diabetes (prediabetes).Fasting plasma glucose results greater than or equal to 126 mg/dL meet the criteria for diagnosis of diabetes. In the absence of unequivocal hyperglycemia, results should be confirmed by repeat testing. In a patient with classic symptoms of hyperglycemia or hyperglycemic crisis, random plasma glucose results greater than or equal to 200 mg/dL meet the criteria for diagnosis of diabetes.Reference: Standards of Medical Care in Diabetes 2016, Stateless Diabetes Association. Diabetes Care. 2016.39(Suppl 1). Performed By: #### 2 4323-8 ####[facility] MILLTOWTEMITOPELIA [id number] [place] [address] [place] Potassium [Moles/Vol] 4.1 mmol/L Normal 3.7-5.1 [facility] Comment on above: Order Comment: [place] villarreal Type: BLOOD SPECIMENOrdering Facility: [facility] Address: [address] [place] [address] Performed By: #### 2 4323-8 ####[facility] CENTERTEMITOPELIBrandee [id number] [place] [address] [place] Protein [Mass/Vol] 6.8 g/dL Normal 6.3-8.0 [facility] Comment on above: Order Comment: [place] villarreal Type: BLOOD SPECIMENOrdering Facility: [facility] Address: [address] [place] [address] Performed By: #### 2 4323-8 ####[facility]ERTEMITOPELIA [id number] [place] [address] [place] Sodium [Moles/Vol] 135 mmol/L Low 136-144 [facility] Comment on above: Order Comment: Mikhaili men Type: BLOOD SPECIMENOrdering Facility: [facility] Address: [address] [place] [address] Performed By: #### 2 4323-8 ####[facility] OC[facility]AW[facility]CL[facility] [id number] [place] [address] [place] Urea nitrogen [Mass/Vol] 17 mg/dL Normal 7-21 [facility] Comment on above: Order Comment: Speci men Type: BLOOD SPECIMENOrdering Facility: [facility] Address: [address] [place] [address] Performed By: #### 2 4323-8 ####[facility] GALINA JOHNNANO [id number] [place] [address] [place] HBV core Ab Ser Qlon 025 HBV core Ab Ql (S) Negative Normal Negative [facility] Comment on above: Order Comment: Speci men Type: BLOOD SPECIMENOrdering Facility: [facility] Address: [address] [place] [address] Result Comment: No e vidence of current or past infection with Hepatitis B virus. Should recent infection be suspected, repeat testing may be considered 3-4 weeks after this draw. Performed By: #### 1 6933-4, 5195-3, 66930-8 ####[facility] LABCLIA [id number] [address] STATES OF [facility] HBV surface Ab Ql (S)on HBV surface Ab Qn (S) <8.00 Normal [facility] Comment on above: Order Comment: [place] villarreal Type: BLOOD SPECIMENOrdering Facility: [facility] Address: [address] [place] [address] Result Comment: <8 m IU/mL: No serological evidence of immunity to Hepatitis B Virus.>/= 8 to <12 mIU/mL: No serological evidence of immunity to Hepatitis B Virus.>/= 12 mIU/mL: Consistent with serological evidence of immunity to Hepatitis B Virus. Performed By: #### 1 6933-4, 5195-3, 12122-9 ####[facility] LABIA [id number] [address] [place] HBV surface Ab Ser Qlon HBV surface Ab Ql (S) Negative Normal [facility] Comment on above: Order Comment: Mikhaili men Type: BLOOD SPECIMENOrdering Facility: [facility] Address: [address] [place] [address] Result Comment: No s erological evidence of immunity to Hepatitis B Virus. Performed By: #### 1 6933-4, 5195-3, 55809-6 ####[facility] LABCLIA [id number] [place] [address] [place] HBV surface Ag Ser Qlon 05-0 HBV surface Ag Ql (S) Negative Normal Negative [facility] Comment on above: Order Comment: Speci men Type: BLOOD SPECIMENOrdering Facility: [facility] Address: [address] [place] [address] Performed By: #### 1 6933-4, 5195-3, 43236-9 ####[facility] LABCLIA [id number] [address] [place] HCV Ab Ser Qlon 07-28-2024 HCV Ab Ql (S) Negative Normal Negative [facility] Comment on above: Order Comment: Speci men Type: BLOOD SPECIMENOrdering Facility: [facility] Address: [address] [place] [address] Result Comment: The result suggests no evidence of infection with Hepatitis C virus. Should recent infection be suspected, repeat testing may be considered 4-6 weeks after this draw. Performed By: #### 1 6128-1 ####[facility] LABCLIA [id number] [place] [address] [place] CNPNon 07-27-2024 CNPN Normal [facility] REFERRAL FOR ADDITIONAL BIOM ARKER AND MOLECULAR TESTINGon 07-25-2024 REFERRAL FOR ADDITIONAL BIOMARKER AND MOLECULAR TESTING Normal [facility] Comment on above: Order Comment: Speci men Type: TISSUE SPECIMENOrdering Facility: [facility] Address: [address] [place] [address] Result Comment: Requ est has been received for evaluation and the results will be issued separately. Performed By: #### A PMOL ####[facility] [id number] [place] [address] [place] CNPNon 07-24-2024 CNPN Normal [facility] CNOVon 07-23-2024 CNOV Normal [facility] BREAST MARKERSon 07-17-2024 AP BIOMARKER DISCLAIMER Normal [facility] Comment on above: Order Comment: Speci men Type: TISSUE SPECIMENOrdering Facility: [facility] Address: [address] [place] [address] Result Comment: Nadya sherman Developed Test (LDT) Disclaimer:Performance characteristics of immunohistochemical, immunofluorescent and chromogenic in-situ hybridization tests have been determined by the performing laboratory within [facility]???s [facility] Pathology and Laboratory Medicine Department ([facility], [facility], [facility], [facility], [facility], [facility], or [facility]) in a manner consistent with CLIA requirements. One or more of these tests have not been cleared or approved by the FDA. [facility] is regulated under CLIA as qualified to perform high-complexity testing. These tests are used for clinical purposes. They should not be regarded as investigational or for research. Positive and negative controls stain appropriately. Performed By: #### L [id number] ####[facility] LABCLIA [id number] [address] [address] [place] Performed By: #### L [id number] ####[facility] LABCLIA [id number] [facility] [address] [address] [place] AP BLOCK ID A1 Normal [facility] Comment on above: Order Comment: Speci men Type: TISSUE SPECIMENOrdering Facility: [facility] Address: [address] [place] [address] Performed By: #### L [id number] ####[facility] LABCLIA [id number] [address] [address] [place] Performed By: #### L [id number] ####[facility] LABCLIA [id number] [facility] [address] [place] [address] [place] ASCO/CAP GUIDELINES FOR FIXATION MET Indeterminate Normal [facility] Comment on above: Order Comment: Speci men Type: TISSUE SPECIMENOrdering Facility: [facility] Address: [address] [place] [address] Result Comment: Para meters not provided Performed By: #### L [id number] ####[facility] LABCLIA [id number] [address] [address] [facility] BIOMARKER INTERPRETATION COMMENT AND REFERENCE RANGE Normal [facility] Comment on above: Order Comment: Speci men Type: TISSUE SPECIMENOrdering Facility: [facility] Address: [address] [place] [address] Result Comment: Refe rence Range for Hormone Receptors:Staining for VA of greater than or equal to 1% of the tumor cells is considered positive.Staining for ER of 1-10% of the tumor cells is considered low positive.Staining for ER of greater than 10% of the tumor cells is considered positive.Staining for ER or VA of less than 1% is considered negative.Reference Ranges for HER2 Immunohistochemistry:Positive (3+): Complete, intense circumferential membrane staining in greater than 10% of tumor cells.Equivocal (2+): Weak to moderate complete membrane staining observed in greater than 10% of tumor cells.Negative (1+): Incomplete, faint membrane staining in greater than 10% of tumor cells.Negative (0): No staining or incomplete faint membrane staining in less than or equal to 10% of tumor cells.Interpretation Comments:Consideration of follow-up testing for HER2 (ERBB2) status by fluorescence in situ hybridization (FISH) for all equivocal (2+) results is recommended and will be ordered as a reflex test if FISH was not a testing methodology already employed.Note for ER low results.For malignancy with a low level (1%-10%) of ER expression by immunohistochemistry, there are limited data on the overall benefit of endocrine therapies for a patient with low level (1%-10%) ER expression, but they currently suggest possible benefits, so patients are considered eligible for endocrine treatment. Some data indicate that invasive cancers with these results are heterogeneous in behavior and biology and often have gene expression profiles more similar to ER-negative cancers. Performed By: #### L [id number] ####[facility] LABCLIA [id number] [address] Result Comment: Inte rpretation standard:CPS: The composite positive score is determined by the number of PD-L1 staining cells (tumor cells, lymphocytes, macrophages) divided by the total number of tumor cells evaluated, then multiplied by 100.Reference Range for PDL1 expressionPrimary Tumor TypeGastric/Esophageal/EGJ adenocarcinoma, Head/Neck Squamous Cell Carcinoma, Cervical Cancer Reference Range: CPS less than 1: Negative CPS greater than or equal to 1: PositiveTriple-negative Breast Cancer, Esophageal Squamous Cell Carcinoma, Urothelial Carcinoma. Reference Range: CPS less than 10: Negative CPS greater than or equal to 10: PositiveThe PDL1 expression in the tumor is interpreted to determine if the patient should be considered for treatment with pembrolizumab (KEYTRUDA). Please refer to the Product label for additional information. ([email or web address] Performed By: #### L [id number] ####[facility] LABCLIA [id number] [address] BIOMARKER METHOD Normal Lazarovelan chaim [facility] Comment on above: Order Comment: Speci men Type: TISSUE SPECIMENOrdering Facility: [facility] Address: [address] [place] [address] Result Comment: Estr ogen Receptor:Food and Drug Administration (FDA) cleared: [employer], [place], [employer] Antibody: [id number] Receptor:FDA cleared: [employer], [place], [facility] Antibody: [id number] (ERBB2) by IHC:FDA cleared: [employer], [place], [facility] Antibody:4B5The hormone receptor tests were performed and reported in accordance with the guidelines approved by the Stateless Society of Clinical Oncologists and the College of Stateless Pathologists. Shellie MAX, et al. Estrogen and Progesterone Receptor Testing in Breast Cancer: Stateless Society of Clinical Oncologists and the College of Stateless Pathologists Guideline Update. Arch Pathol Lab Med. 2019;144(5):545-563. PMID: [id number].The hormone receptor assays have been internally validated on decalcified tissues (for [facility] only).Estrogen and progesterone receptor results are valid if tissue was processed according to ASCO/CAP guidelines.Antibody and Detection System: Baron's Pathway anti-HER2 rabbit monoclonal antibody (clone 4B5), Baron Confirm anti-estrogen receptor rabbit monoclonal antibody (clone SP1) and Baron anti-progesterone receptor rabbit monoclonal antibody (clone IE2) detected with the [employer] UltraView Univeral DAB Detection Kit (indirect biotin-free detection), [employer], [place], [place].Control Slides: Cell line controls with high, equivocal, low, and negative HER2 protein expression, along with known positive control tissue and the patient's tissue, are evaluated for HER2 expression.The HER2 immunohistochemistry assay was developed, validated, scored, and reported in accordance with the guidelines approved by the Stateless Society of Clinical Oncologists and the College of Stateless Pathologists. Aleisha SALEH et al. Arch Pathol Lab Med. 2018;1379(9)The HER2 assay has not been validated on decalcified tissues. Given the possibility of false negative results on decalcified specimens, results should be interpreted with caution. Performed By: #### L [id number] ####[facility] LABCLIA [id number] [place] [id number] [place] BREAST TUMOR GRADE Not Graded Normal [facility] Comment on above: Order Comment: Speci men Type: TISSUE SPECIMENOrdering Facility: [facility] Address: [address] [place] [address] Performed By: #### L [id number] ####[facility] LABCLIA [id number] [address] [address] [place] [facility] CASE NUMBER INVASIVE [id number] Normal [facility] Comment on above: Order Comment: Speci men Type: TISSUE SPECIMENOrdering Facility: [facility] Address: [address] [place] [address] Performed By: #### L [id number] ####[facility] LABIA [id number] [address] [address] [place] COLD ISCHEMIA TIME Not Provided Normal [facility] Comment on above: Order Comment: Speci men Type: TISSUE SPECIMENOrdering Facility: [facility] Address: [address] [place] [address] Performed By: #### L [id number] ####[facility] LABCLIA [id number] [address] [place] [address] [place] Performed By: #### L [id number] ####[facility] LABCLIA [id number] [facility] [address] [id number] [address] [place] ESTROGEN RECEPTOR (% TUMOR STAINING) <1 Normal [facility] Comment on above: Order Comment: Speci men Type: TISSUE SPECIMENOrdering Facility: [facility] Address: [address] [place], [place] [address] Performed By: #### L [id number] ####[facility] LABCLIA [id number] [address] [place] [address] [place] ESTROGEN RECEPTOR (STAINING INTENSITY) Not Applicable Normal [facility] Comment on above: Order Comment: Speci men Type: TISSUE SPECIMENOrdering Facility: [facility] Address: [address] [place], [place] [address] Performed By: #### L [id number] ####[facility] LABCLIA [id number] [address] [place] [address] [place] ESTROGEN RECEPTOR EXTERNAL CONTROL Present and Stained as Expected Normal [facility] Comment on above: Order Comment: Speci men Type: TISSUE SPECIMENOrdering Facility: [facility] Address: [address] [place], [place] [address] Performed By: #### L [id number] ####[facility] LABCLIA [id number] [facility] [address] [place] [address] [place] ESTROGEN RECEPTOR INTERNAL CONTROL Absent Normal [facility] Comment on above: Order Comment: Speci men Type: TISSUE SPECIMENOrdering Facility: [facility] Address: [address] [place] [address] Performed By: #### L [id number] ####[facility] LABCLIA [id number] [address] [place] [address] [place] ESTROGEN RECEPTOR STATUS (INVASIVE) Negative Normal [facility] Comment on above: Order Comment: Speci men Type: TISSUE SPECIMENOrdering Facility: [facility] Address: [address] [place] [address] Performed By: #### L [id number] ####[facility] LABCLIA [id number] [address] [place] [address] [place] FINAL PERFORMING LAB Normal [facility] Comment on above: Order Comment: Speci men Type: TISSUE SPECIMENOrdering Facility: [facility] Address: [address] [place], [place] [address] Result Comment: Diag nostic interpretation performed at: [facility], [address] [place] [address] [place] [address] CLIA# [id number] Director: Rob Mello MDElectronically signed out by: Pedro Luis Palma MD Performed By: #### L [id number] ####[facility] LABCLIA [id number] [address] [place] [address] [place] Result Comment: Diag nostic interpretation performed at: [facility], [address] [place] [address] [place] [address] CLIA# [id number] Director: Rob Mello MDElectronically signed out by: Marlene Will MD Performed By: #### L [id number] ####[facility] LABCLIA [id number] [address] [place] [address] [place] FIXATIVE Formalin, 10% Neutral Buffered Normal [facility] Comment on above: Order Comment: Speci men Type: TISSUE SPECIMENOrdering Facility: [facility] Address: [address] [place] [address] Performed By: #### L [id number] ####[facility] LABCLIA [id number] [address] [place] [address] [place] Performed By: #### L [id number] ####[facility] LABCLIA [id number] [facility] CENTERChaim SAM [address] OF [facility] HER2 SCORE 0 Normal [facility] Comment on above: Order Comment: Speci men Type: TISSUE SPECIMENOrdering Facility: [facility] Address: [address] [place] [address] Result Comment: HER2 Ultralow assessment for HER2 negative (0) tumors by ASCO/CAP GuidelinesSurgical/Block Number: [id number] Site:\\X09\\ Left breastPercentage of tumor cells with membranous staininResult:\\X09\\HER2 0 UltralowReference range:Ultralow HER2 expression is defined as IHC 0 by ASCO/CAP guidelines but with any membranous staining that is greater than 0 and less than or equal to 10%. Null HER2 expression is defined as IHC 0 by ASCO/CAP guidelines but with no membranous staining at 40X magnification.Rufino A, Sam X, Luis Armando R, Eunice K, John CH, OSkylar JA, Tatiana H, Deric MarinY, John Q, Joan C, Dylan L, Lindsay J, Im SA, L???fedey C, Pedro Luis W, Clarita N, Dereck J, Adrian G, Rik G; IVAN-Vpizyd20 Trial Investigators. Trastuzumab Deruxtecan after Endocrine Therapy in Metastatic Breast Cancer. N Engl J Med. 2023Dec 07. doi: 10.1056/XZQMia8008613. Epub ahead of print. PMID: [id number].Jonathan Renner, Ingris Marin, Chidi B, Orlando A, Walker B, Tammi H, Nellie E, Dada N, Alan C. Development and Validation of a HER2-Low Focused Immunohistochemical Scoring System With High-Interobserver Concordance: The [place]e HER2-Low Breast Cancer Concordance Study. Mod Pathol. 2023;37(8):733196. doi: 10.1016/j.modpat.2023.157310. Epub 2023Aug 30. PMID: [id number]. Performed By: #### L [id number] ####[facility] LABCLIA [id number] [address] [place] [address] [place] HER2 STATUS (INVASIVE) Negative Normal [facility] Comment on above: Order Comment: Speci men Type: TISSUE SPECIMENOrdering Facility: [facility] Address: [address] [place], [place] [address] Performed By: #### L [id number] ####[facility] LABCLIA [id number] [address] [place] [address] [place] PROGESTERONE RECEPTOR (% TUMOR STAINING) <1 Normal [facility] Comment on above: Order Comment: Speci men Type: TISSUE SPECIMENOrdering Facility: [facility] Address: [address] [place], [place] [address] Performed By: #### L [id number] ####[facility] LABCLIA [id number] [address] [place] [address] [place] PROGESTERONE RECEPTOR (STAINING INTENSITY) Not Applicable Normal [facility] Comment on above: Order Comment: Speci men Type: TISSUE SPECIMENOrdering Facility: [facility] Address: [address] [place], [place] [address] Performed By: #### L [id number] ####[facility] LABCLIA [id number] [address] [place] [address] [place] PROGESTERONE RECEPTOR EXTERNAL CONTROL Present and Stained as Expected Normal [facility] Comment on above: Order Comment: Speci men Type: TISSUE SPECIMENOrdering Facility: [facility] Address: [address] [place], [place] [address] Performed By: #### L [id number] ####[facility] LABCLIA [id number] [address] [address] [place] PROGESTERONE RECEPTOR INTERNAL CONTROL Absent Normal [facility] Comment on above: Order Comment: Speci men Type: TISSUE SPECIMENOrdering Facility: [facility] Address: [address] [place], [place] [address] Performed By: #### L [id number] ####[facility] LABCLIA [id number] [address] [place] [address] [place] PROGESTERONE RECEPTOR STATUS (INVASIVE) Negative Normal [facility] Comment on above: Order Comment: Speci men Type: TISSUE SPECIMENOrdering Facility: [facility] Address: [address] [place] [address] Performed By: #### L [id number] ####[facility] LABCLIA [id number] [address] [place] [address] [place] TOTAL FIXATION TIME Not Provided Normal [facility] Comment on above: Order Comment: Speci men Type: TISSUE SPECIMENOrdering Facility: [facility] Address: [address] [place] [address] Performed By: #### L [id number] ####[facility] LABCLIA [id number] [address] [place] [address] [place] Performed By: #### L [id number] ####[facility] LABCLIA [id number] [address] [place] [address] [place] TUMOR TYPE (INVASIVE) Carcinoma Normal [facility] Comment on above: Order Comment: Speci men Type: TISSUE SPECIMENOrdering Facility: [facility] Address: [address] [place] [address] Performed By: #### L [id number] ####[facility] LABCLIA [id number] [address] [place] [address] [place] WAS SPECIMEN DECALCIFIED No Normal [facility] Comment on above: Order Comment: Speci men Type: TISSUE SPECIMENOrdering Facility: [facility] Address: [address] [place] [address] Performed By: #### L [id number] ####[facility] LABCLIA [id number] [address] [place] [address] [place] Performed By: #### L [id number] ####[facility] LABCLIA [id number] [address] [place] [address] [place] CNOVon 07-17-2024 CNOV Normal [facility] PD-L1 22C3on 07-17-2024 BIOMARKER METHOD Normal [facility] Comment on above: Order Comment: Speci men Type: TISSUE SPECIMENOrdering Facility: [facility] Address: [address] [place] [address] Performed By: #### L [id number] ####[facility] LABCLIA [id number] [address] [place] [address] [place] [facility] CASE NUMBER PD-L1 [id number] Normal [facility] Comment on above: Order Comment: Speci men Type: TISSUE SPECIMENOrdering Facility: [facility] Address: [address] [place] [address] Performed By: #### L [id number] ####[facility] LABCLIA [id number] [address] [place] [address] [place] COMBINED POSITIVE SCORE (CPS) (BREAST, ESPO SCC) 30 Normal [facility] Comment on above: Order Comment: Speci men Type: TISSUE SPECIMENOrdering Facility: [facility] Address: [address] [place], [place] [address] Performed By: #### L [id number] ####[facility] LABCLIA [id number] [facility] [address] [place] [address] [place] PD-L1 22C3 CPS (BRST, ESPO SCC) INTERPRETATION Positive Abnormal [facility] Comment on above: Order Comment: Speci men Type: TISSUE SPECIMENOrdering Facility: [facility] Address: [address] [place], [place] [address] Performed By: #### L [id number] ####[facility] LABCLIA [id number] [facility] [address] [place] [address] [place] PD-L1 TUMOR TYPE Other (See Comment) Normal [facility] Comment on above: Order Comment: Speci men Type: TISSUE SPECIMENOrdering Facility: [facility] Address: [address] [place] [address] Result Comment: Inva sive carcinoma involving dermis Performed By: #### L [id number] ####[facility] LABCLIA [id number] [address] [address] [place] Pathology biopsy report Gerald (Tiss)on 07-17-2024 ADDENDUM 1: Normal [facility] Comment on above: Order Comment: Speci men Type: TISSUE SPECIMENOrdering Facility: [facility] Address: [address] [place] [address] Result Comment: Adde ndum was created in error.[facility] 09/21/24Addendum electronically signed by Pedro Luis Palma MD on 09/21/2024 at 1637 EDT Performed By: #### 6 6121-5 ####[facility] LABIA [id number] [place] [address] [place] AP DISCLAIMER Normal [facility] Comment on above: Order Comment: Speci men Type: TISSUE SPECIMENOrdering Facility: [facility] Address: [address] [place] [address] Result Comment: Nadya sherman Developed Test (LDT) Disclaimer:Performance characteristics of immunohistochemical, immunofluorescent, and chromogenic in-situ hybridization tests have been determined by the performing laboratory within [facility]'s [facility] Pathology and Laboratory Medicine Department ([facility], [facility], [facility], [facility], [facility], [facility], or [facility]) in a manner consistent with CLIA requirements. One or more of these tests may not have been cleared or approved by the FDA. [facility] is regulated under CLIA as qualified to perform high-complexity testing. These tests are used for clinical purposes. These should not be regarded as investigational or for research. Positive and negative controls stain appropriately. Performed By: #### 6 6121-5 ####[facility] LABCLIA [id number] [address] [address] [place] CASE REPORT Normal [facility] Comment on above: Order Comment: Speci men Type: TISSUE SPECIMENOrdering Facility: [facility] Address: [address] [place] [address] Result Comment: Surg ical Pathology Report Case: [id number] Provider: Mary Green MD Collected: 07/17/2024 01:15 PMOrdering Location: General Surgery Received: 07/17/2024 03:37 PMPathologist: Pedro Luis Palma MDSpecimen: Skin, Punch Biopsy, Left Breast Performed By: #### 6 6121-5 ####[facility] LABCLIA [id number] [address] STATES OF [facility] CLINICAL HISTORY Normal [facility] Comment on above: Order Comment: Speci cherelle Type: TISSUE SPECIMENOrdering Facility: [facility] Address: [address] [place] [address] Result Comment: Skin , Punch BiopsyComment: Left Breast Performed By: #### 6 6121-5 ####[facility] LABCLIA [id number] [address] [place] [facility] DIAGNOSIS COMMENT Normal [facility] Comment on above: Order Comment: Speci cherelle Type: TISSUE SPECIMENOrdering Facility: [facility] Address: [address] [place] [address] Result Comment: Hist ologic sections show an atypical epithelial proliferation within the dermis. The lesional cells are arranged in variably-sized rounded to irregular and infiltrative nests. The cells display enlarged ovoid to irregular nuclei, variable hyperchromasia, occasional nucleoli, and a modest amount of eosinophilic cytoplasm. There are scattered mitotic figures and occasional apoptotic bodies. The epidermis and superficial dermis appear uninvolved.In order to further characterize the lesion, immunohistochemical staining is performed at the [facility] on block A1 with appropriate controls. Stains for cytokeratins AE1/AE3, GATA3, and SOX10 are weakly but diffusely positive in the lesional cells, while stains for p63 and CK7 are negative.Overall, these features are consistent with invasive carcinoma and are consistent with carcinoma of breast origin. Select slides of this case were reviewed with Dr Tomas Mera of the [facility] Breast Pathology Service, who concurs with the above diagnosis of carcinoma.Breast biomarkers (ER, PgR, and HER2) are pending, the results of which will be reported separately.[facility] 07/24/24 Performed By: #### 6 6121-5 ####[facility] LABCLIA [id number] [address] [address] [place] [facility] FINAL DIAGNOSIS Normal [facility] Comment on above: Order Comment: Speci men Type: TISSUE SPECIMENOrdering Facility: [facility] Address: [address] [place] [address] Result Comment: Left breast, skin, punch biopsy:- Invasive carcinoma involving dermis.[facility] 07/24/24 at 1524 EDT Performed By: #### 6 6121-5 ####[facility] LABCLIA [id number] [address] FINAL PERFORMING LAB Normal [facility] Comment on above: Order Comment: Speci men Type: TISSUE SPECIMENOrdering Facility: [facility] Address: [address] [place] [address] Result Comment: Diag nostic interpretation performed at: [facility], [address] [place] [address], [place] [address] CLIA# [id number] Director: Rob Mello MD Performed By: #### 6 6121-5 ####[facility] LABCLIA [id number] [place] [id number] [place] GROSS DESCRIPTION Normal [facility] Comment on above: Order Comment: Speci men Type: TISSUE SPECIMENOrdering Facility: [facility] Address: [address] [place] [address] Result Comment: A. S kin, Punch BiopsyReceived in formalin on Telfa gauze are two cylindrical segments of skin and subcutaneous tissue aggregating to 0.5 x 1.0 x 0.5 cm. The specimens are not sectioned. Totally submitted in two cassettes.DL July 17, 2024 10:40 PMGross examination performed at [facility], [address] [place] [address] Performed By: #### 6 6121-5 ####[facility] LABCLIA [id number] [facility] [facility] [id number] [place] [address] [place] CNOVSPon 07-16-2024 CNOVSP Normal [facility] CNPNon 07-13-2024 CNPN Normal [facility] PT D/C Summary (1)on 025 PT D/C Summary (1) [facility] [address] [place] [address] [address] [place] [address] / REHABILITATION SERVICES DISCHARGE SUMMARY MR#: [id number] Acct: [id number] Name: Everette HERBERT Rep #: [id number] : 1960 64 From: Chaes Manjarrez PT, Cert. T, OCS Referring Dr.: Dr. Alec Kong MD Status: REG RCR Insurance: MEDICARE PART A B [facility] Discharge Summary D/C summary: It has been my pleasure to treat Everette HERBERT referred by Dr. 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 Discharge Date: 06/30/24 Please see the following information for a summary of their discharge status. Subjective Subjective: Doing well no pain Pain Right: Pain Intensity (Out of 10): 0 Right Lower Extremity: Pain Intensity (Out of 10): 0 Overall Improvement % Improvement: 80 Objective Objective/Function: POSTURE: mild forward posture GAIT: reciprocal pattern PALAPTION: unremarkable FLEXABILITY: hamstrings mod tight + MMT: quads/hams/hip ,ankle 4/5 LUMBAR ROM: flexion min loss ,extension mod loss ,side glides min loss Goals Goal 1:: Patient to be I with HEP for back Goal Progress: Goal Met Goal 2:: Patient to demonstrate 60% improvement with less pain and improved function Goal Progress: Goal Met Goal 3:: Patient to improve lumbar ROM for function of recovery for lifting and ADL Goal Progress: Goal Met Goal 4:: Patient to improve back oswestry score by 5 points to improve function and QOL Plan Plan: D/C D/C Information Discharge Comments: HEP d/c sentence: If there are questions or concerns regarding this patient's physical therapy, please feel free to call me at [phone]. Thank you for the referral of this patient. Sincerely, Chase Manjarrez, PT, Cert MDT, OCS Balance/Gait/Functional tests Balance/Special Test Scores Oswestry Low Back Score: 0 Improvement % Improvement: 80 06/30/24 1511 CC: Dr. Alec Kong MD; Dr. Hellen Lafleur MD JLA Signed Normal [facility] CBC W Auto Differential pane l (Bld)on 06-01-2024 Basophils (Bld) [#/Vol] 0.05 10*3/uL Normal <0.11 [facility] Comment on above: Order Comment: Speci men Type: BLOOD SPECIMENOrdering Facility: [facility] Address: [address] [place] [address] Performed By: #### 5 7021-8 ####[facility] [id number] [place] [address] [place] Basophils/100 WBC (Bld) 1.4 % Normal [facility] Comment on above: Order Comment: Speci men Type: BLOOD SPECIMENOrdering Facility: [facility] Address: [address] [place] [address] Performed By: #### 5 7021-8 ####[facility]CLIA [id number] [place] [address] [place] Differential cell count method Nom (Bld) Auto Normal [facility] Comment on above: Order Comment: Speci men Type: BLOOD SPECIMENOrdering Facility: [facility] Address: [address] [place] [address] Performed By: #### 5 7021-8 ####[facility]CLIA [id number] [place] [address] [place] Eosinophils (Bld) [#/Vol] 0.22 10*3/uL Normal <0.46 [facility] Comment on above: Order Comment: Speci men Type: BLOOD SPECIMENOrdering Facility: [facility] Address: [address] [place] [address] Performed By: #### 5 7021-8 ####[facility] [id number] [place] [address] [place] Eosinophils/100 WBC (Bld) 6.2 % Normal [facility] Comment on above: Order Comment: Speci men Type: BLOOD SPECIMENOrdering Facility: [facility] Address: [address] [place] [address] Performed By: #### 5 7021-8 ####[facility]ERTEMITOPE[facility] [id number] [place] [address] [place] Erythrocyte distribution width (RBC) [Ratio] 13.8 % Normal 11.5-15.0 [facility] Comment on above: Order Comment: Speci men Type: BLOOD SPECIMENOrdering Facility: [facility] Address: [address] [place] [address] Performed By: #### 5 7021-8 ####[facility] MED[facility] CENTERLIBrandee [id number] [place] [address] [place] Hematocrit (Bld) [Volume fraction] 35.5 % Low 36.0-46.0 [facility] Comment on above: Order Comment: Speci men Type: BLOOD SPECIMENOrdering Facility: [facility] Address: [address] [place] [address] Performed By: #### 5 7021-8 ####[facility]ENTERNCLIA [id number] [place] [address] [place] Hemoglobin (Bld) [Mass/Vol] 11.9 g/dL Normal 11.5-15.5 [facility] Comment on above: Order Comment: Speci men Type: BLOOD SPECIMENOrdering Facility: [facility] Address: [address] [place] [address] Performed By: #### 5 7021-8 ####[facility] [id number] [place] [address] [place] Immature granulocytes (Bld) [#/Vol] 10*3/uL Normal <0.10 [facility] Comment on above: Order Comment: Speci men Type: BLOOD SPECIMENOrdering Facility: [facility] Address: [address] [place] [address] Performed By: #### 5 7021-8 ####[facility] [id number] [place] [address] [place] Immature granulocytes/100 WBC (Bld) 0.3 % Normal [facility] Comment on above: Order Comment: Speci men Type: BLOOD SPECIMENOrdering Facility: [facility] Address: [address] [place] [address] Performed By: #### 5 7021-8 ####[facility] [id number] [place] [address] [place] Lymphocytes (Bld) [#/Vol] 0.61 10*3/uL Low 1.00-4.00 [facility] Comment on above: Order Comment: Speci men Type: BLOOD SPECIMENOrdering Facility: [facility] Address: [address] [place] [address] Performed By: #### 5 7021-8 ####[facility] [id number] [place] [address] [place] Lymphocytes/100 WBC (Bld) 17.2 % Normal [facility] Comment on above: Order Comment: Speci men Type: BLOOD SPECIMENOrdering Facility: [facility] Address: [address] [place] [address] Performed By: #### 5 7021-8 ####[facility] MILLTOWNCLIA [id number] [address] [facility] MCH (RBC) [Entitic mass] 29.8 pg Normal 26.0-34.0 [facility] Comment on above: Order Comment: Speci men Type: BLOOD SPECIMENOrdering Facility: [facility] Address: [address] [place] [address] Performed By: #### 5 7021-8 ####[facility]ENTERNCLIA [id number] [address] [place] MCHC (RBC) [Mass/Vol] 33.5 g/dL Normal 30.5-36.0 [facility] Comment on above: Order Comment: Speci men Type: BLOOD SPECIMENOrdering Facility: [facility] Address: [address] [place] [address] Performed By: #### 5 7021-8 ####[facility]ENT[facility]CLIA [id number] [place] [address] [place] MCV (RBC) [Entitic vol] 89.0 fL Normal 80.0-100.0 [facility] Comment on above: Order Comment: Speci men Type: BLOOD SPECIMENOrdering Facility: [facility] Address: [address] [place] [address] Performed By: #### 5 7021-8 ####[facility]ENTERNCLIA [id number] [place] [address] [place] Monocytes (Bld) [#/Vol] 0.48 10*3/uL Normal <0.87 [facility] Comment on above: Order Comment: Speci men Type: BLOOD SPECIMENOrdering Facility: [facility] Address: [address] [place] [address] Performed By: #### 5 7021-8 ####[facility] MED[facility] CENTERLIA [id number] [place] [address] [place] Monocytes/100 WBC (Bld) 13.6 % Normal [facility] Comment on above: Order Comment: Speci men Type: BLOOD SPECIMENOrdering Facility: [facility] Address: [address] [place] [address] Performed By: #### 5 7021-8 ####[facility] [id number] [place] [address] [place] Neutrophils (Bld) [#/Vol] 2.17 10*3/uL Normal 1.45-7.50 [facility] Comment on above: Order Comment: Speci men Type: BLOOD SPECIMENOrdering Facility: [facility] Address: [address] [place] [address] Performed By: #### 5 7021-8 ####[facility] [id number] [place] [address] [place] Neutrophils/100 WBC (Bld) 61.3 % Normal [facility] Comment on above: Order Comment: Speci men Type: BLOOD SPECIMENOrdering Facility: [facility] Address: [address] [place] [address] Performed By: #### 5 7021-8 ####[facility] [id number] [place] [address] [place] Nucleated RBC (Bld) [#/Vol] 10*3/uL Normal <0.01 [facility] Comment on above: Order Comment: Speci men Type: BLOOD SPECIMENOrdering Facility: [facility] Address: [address] [place] [address] Performed By: #### 5 7021-8 ####[facility] [id number] [place] [address] [place] Nucleated RBC/100 WBC (Bld) [Ratio] 0.0 /100 WBC Normal [facility] Comment on above: Order Comment: Speci men Type: BLOOD SPECIMENOrdering Facility: [facility] Address: [address] [place] [address] Performed By: #### 5 7021-8 ####[facility] OMARPkNCELICIAA [id number] [place] [address] [place] Platelet mean volume (Bld) [Entitic vol] 8.6 fL Low 9.0-12.7 [facility] Comment on above: Order Comment: Speci men Type: BLOOD SPECIMENOrdering Facility: [facility] Address: [address] [place] [address] Performed By: #### 5 7021-8 ####[facility]ENTERNCELICIAA [id number] [place] [address] [place] Platelets (Bld) [#/Vol] 248 10*3/uL Normal 150-400 [facility] Comment on above: Order Comment: Speci men Type: BLOOD SPECIMENOrdering Facility: [facility] Address: [address] [place] [address] Performed By: #### 5 7021-8 ####[facility]ENTERNCLIA [id number] [place] [address] [place] RBC (Bld) [#/Vol] 3.99 10*6/uL Normal 3.90-5.20 [facility] Comment on above: Order Comment: Speci men Type: BLOOD SPECIMENOrdering Facility: [facility] Address: [address] [place] [address] Performed By: #### 5 7021-8 ####[facility]ENTERNCLIA [id number] [place] [address] [place] WBC (Bld) [#/Vol] 3.54 10*3/uL Low 3.70-11.00 [facility] Comment on above: Order Comment: Speci men Type: BLOOD SPECIMENOrdering Facility: [facility] Address: [address] [place] [address] Performed By: #### 5 7021-8 ####[facility] OMARLALILIA [id number] [place] [address] [place] CNOVSPon 06-01-2024 CNOVSP Normal [facility] metabolic 2000 panelon 06-01-2024 Albumin [Mass/Vol] 4.4 g/dL Normal 3.9-4.9 [facility] Comment on above: Order Comment: Speci men Type: BLOOD SPECIMENOrdering Facility: [facility] Address: [address] [place] [address] Performed By: #### 2 4323-8 ####[facility]ERNCLIA [id number] [place] [address] [place] ALP [Catalytic activity/Vol] 74 U/L Normal 34-123 [facility] Comment on above: Order Comment: Speci men Type: BLOOD SPECIMENOrdering Facility: [facility] Address: [address] [place] [address] Performed By: #### 2 4323-8 ####[facility] CENTERTEMITOPELIA [id number] [place] [address] [place] ALT [Catalytic activity/Vol] 10 U/L Normal 7-38 [facility] Comment on above: Order Comment: Speci men Type: BLOOD SPECIMENOrdering Facility: [facility] Address: [address] [place] [address] Performed By: #### 2 4323-8 ####[facility]ERNCLIA [id number] [place] [address] [place] Anion gap [Moles/Vol] 9 mmol/L Normal 8-15 [facility] Comment on above: Order Comment: Speci men Type: BLOOD SPECIMENOrdering Facility: [facility] Address: [address] [place] [address] Performed By: #### 2 4323-8 ####[facility] MILLTOWNCLIA [id number] [place] [address] [place] AST [Catalytic activity/Vol] 16 U/L Normal 13-35 [facility] Comment on above: Order Comment: Speci men Type: BLOOD SPECIMENOrdering Facility: [facility] Address: [address] [place] [address] Performed By: #### 2 4323-8 ####[facility] MILLTOWNCLIA [id number] [place] [address] [place] Bilirubin [Mass/Vol] 0.2 mg/dL Normal 0.2-1.3 [facility] Comment on above: Order Comment: Speci men Type: BLOOD SPECIMENOrdering Facility: [facility] Address: [address] [place] [address] Performed By: #### 2 4323-8 ####[facility]ENTERNCLIA [id number] [place] [address] [place] Calcium [Mass/Vol] 9.5 mg/dL Normal 8.5-10.2 [facility] Comment on above: Order Comment: Speci men Type: BLOOD SPECIMENOrdering Facility: [facility] Address: [address] [place] [address] Performed By: #### 2 4323-8 ####[facility] [id number] [place] [address] [place] Chloride [Moles/Vol] 97 mmol/L Low 98-107 [facility] Comment on above: Order Comment: Speci men Type: BLOOD SPECIMENOrdering Facility: [facility] Address: [address] [place] [address] Performed By: #### 2 4323-8 ####[facility]ENTERNCLIA [id number] [place] [address] [place] CO2 [Moles/Vol] 28 mmol/L Normal 22-30 [facility] Comment on above: Order Comment: Speci men Type: BLOOD SPECIMENOrdering Facility: [facility] Address: [address] [place] [address] Performed By: #### 2 4323-8 ####[facility] [id number] [place] [address] [place] Creatinine [Mass/Vol] 0.71 mg/dL Normal 0.58-0.96 [facility] Comment on above: Order Comment: Speci men Type: BLOOD SPECIMENOrdering Facility: [facility] Address: [address] [place] [address] Performed By: #### 2 4323-8 ####[facility] [id number] [place] [address] [place] Creatinine and Glomerular filtration rate.predicted panel (S/P/Bld) 94 mL/min/1.73m??? Normal >=60 [facility] Comment on above: Order Comment: Speci men Type: BLOOD SPECIMENOrdering Facility: [facility] Address: [address] [place] [address] Result Comment: Alayna mated Glomerular Filtration Rate (eGFR) is calculated using the 2020 CKD-EPI creatinine equation. This equation utilizes serum creatinine, sex, and age as parameters. The creatinine assay has traceable calibration to isotope dilution-mass spectrometry. Refer to KDIGO guidelines for clinical interpretation. In patients with unstable renal function, e.g. those with acute kidney injury, the eGFR may not accurately reflect actual GFR. Performed By: #### 2 4323-8 ####[facility] [id number] [place] [address] [place] Glucose [Mass/Vol] 105 mg/dL High 74-99 [facility] Comment on above: Order Comment: Speci men Type: BLOOD SPECIMENOrdering Facility: [facility] Address: [address] [place] [address] Result Comment: The Stateless Diabetes Association (ADA) provides guidance for cutoff values for fasting glucose and random glucose. The ADA defines fasting as no caloric intake for at least 8 hours. Fasting plasma glucose results between 100 to 125 mg/dL indicate increased risk for diabetes (prediabetes).Fasting plasma glucose results greater than or equal to 126 mg/dL meet the criteria for diagnosis of diabetes. In the absence of unequivocal hyperglycemia, results should be confirmed by repeat testing. In a patient with classic symptoms of hyperglycemia or hyperglycemic crisis, random plasma glucose results greater than or equal to 200 mg/dL meet the criteria for diagnosis of diabetes.Reference: Standards of Medical Care in Diabetes 2016, Stateless Diabetes Association. Diabetes Care. 2016.39(Suppl 1). Performed By: #### 2 4323-8 ####[facility] [id number] [place] [address] [place] Potassium [Moles/Vol] 4.3 mmol/L Normal 3.7-5.1 [facility] Comment on above: Order Comment: Speci men Type: BLOOD SPECIMENOrdering Facility: [facility] Address: [address] [place] [address] Performed By: #### 2 4323-8 ####[facility] [id number] [place] [address] [place] Protein [Mass/Vol] 6.7 g/dL Normal 6.3-8.0 [facility] Comment on above: Order Comment: Speci men Type: BLOOD SPECIMENOrdering Facility: [facility] Address: [address] [place] [address] Performed By: #### 2 4323-8 ####[facility] [id number] [place] [address] [place] Sodium [Moles/Vol] 134 mmol/L Low 136-144 [facility] Comment on above: Order Comment: Speci men Type: BLOOD SPECIMENOrdering Facility: [facility] Address: [address] [place] [address] Performed By: #### 2 4323-8 ####[facility] OCALAW[facility]CL[facility] [id number] [place] [address] [place] Urea nitrogen [Mass/Vol] 17 mg/dL Normal 7-21 [facility] Comment on above: Order Comment: Speci men Type: BLOOD SPECIMENOrdering Facility: [facility] Address: [address] [place] [address] Performed By: #### 2 4323-8 ####[facility] [id number] [place] [address] [place] Cortis SerPl-mCncon 06-02-19 25 Cortisol [Mass/Vol] 7.6 ug/dL Normal 4.8-19.5 [facility] Comment on above: Order Comment: Speci men Type: BLOOD SPECIMENOrdering Facility: [facility] Address: [address] [place] [address] Result Comment: Prov ided reference range is from 6-10 AM sample collection time.Cortisol Reference Range: 6-10 AM = 4.8-19.5 ug/dL, 4-8 PM = 2.5-11.9 ug/dL Performed By: #### 3 024-7, 3016-3, 6 ####[facility] LABCLIA [id number] [place] [address] [place] T4 Free SerPl-mCncon 025 Free T4 [Mass/Vol] 1.0 ng/dL Normal 0.9-1.7 [facility] Comment on above: Order Comment: Speci men Type: BLOOD SPECIMENOrdering Facility: [facility] Address: [address] [place] [address] Performed By: #### 3 024-7, 3016-3, 6 ####[facility] LABCLIA [id number] [place] [address] [place] TSH SerPl-aCncon 06-01-2024 TSH Qn 1.470 m[IU]/L Normal 0.270-4.20 0 [facility] Comment on above: Order Comment: Speci men Type: BLOOD SPECIMENOrdering Facility: [facility] Address: [address] [place] [address] Performed By: #### 3 024-7, 3016-3, 2143-6 ####[facility] LABCLIA [id number] [place] [address] [place] CREATININE BLDon 05-25-2024 Creatinine [Mass/Vol] 0.70 mg/dL Normal 0.58-0.96 [facility] Comment on above: Order Comment: Speci men Type: BLOOD SPECIMENOrdering Facility: [facility] Address: [address] [place] [address] Performed By: #### C RET1 ####[facility] [id number] [place] [address] [place] [facility] Creatinine and Glomerular filtration rate.predicted panel (S/P/Bld) 96 mL/min/1.73m??? Normal >=60 [facility] Comment on above: Order Comment: Speci men Type: BLOOD SPECIMENOrdering Facility: [facility] Address: [address] [place] [address] Result Comment: Alayna mated Glomerular Filtration Rate (eGFR) is calculated using the 2020 CKD-EPI creatinine equation. This equation utilizes serum creatinine, sex, and age as parameters. The creatinine assay has traceable calibration to isotope dilution-mass spectrometry. Refer to KDIGO guidelines for clinical interpretation. In patients with unstable renal function, e.g. those with acute kidney injury, the eGFR may not accurately reflect actual GFR. Performed By: #### C RET1 ####[facility] MED[facility] CENTERLI [id number] [place] [address] [place] CT ABD/PEL W IVCONon 025 CT ABD/PEL W IVCON Normal [facility] CT CHEST W IVCONon 5 CT CHEST W IVCON Normal [facility] CNPNon 05-20-2024 CNPN Normal [facility] US BREAST RIGHT LIMITEDon US BREAST RIGHT LIMITED ORIGINAL FROM: [facility] [address] [place] [address] PROCEDURE FOR: CARRIE HERBERT [address] [place] [address] Home: PID#: [id number] Exam#: [id number] : 1960 Age: 63 TO: DEBBIE MERINO MD [address], [place] [address] Fax: NO FAX EXAMINATION: ULTRASOUND OF THE RIGHT BREAST 05/05/2024 10:48 am TECHNIQUE: Color flow and laughlin scale targeted ultrasound of the 12-1 o'clock were performed. Permanently stored images were reviewed. COMPARISON: Ultrasound September 23, 2023, ultrasound-guided biopsy right breast April 24, 2023, patient reportedly had a last bilateral mammogram at an outside facility in July of 2023 HISTORY: ORDERING SYSTEM PROVIDED HISTORY: Reason for Exam: f/u FINDINGS: There is a 1.5 cm oval hypoechoic mass within the right breast at 12-1 o'clock, 4 cm from the nipple. This is not significantly changed allowing for difference in measuring technique from March 2023, and has possibly decreased in size from September of 2023. This has been previously biopsy proven to be benign. No increased vascularity. IMPRESSION: The 1.5 cm oval hypoechoic mass within the right breast appears probably benign. A six-month follow-up right breast ultrasound is recommended to demonstrate stability. The patient will be due for a bilateral diagnostic mammogram at that time as well. BIRADS: BI-RADS: 3: Probably Benign RECALL: 6 month follow-up RECALL TYPE: Mammo+US LETTER SENT: Probably Benign BI-RADS 3 Interpreted by: Silas Levy MD Preliminary Report By: Silas Levy MD Electronically signed By Silas Levy MD Dictated Date: 05/08/2024 5:52:11 PM Prelim Date: 05/08/2024 5:58:14 PM Sign Date: 05/08/2024 5:58:14 PM Ordering Provider: DEBBIE MERINO CLINICAL: RIGHT BREAST FOLLOW- UP 1 O'CLOCK. Mill Crane Operator: HARSH WILLIAM RTCorbin)([place]), [place] letter sent: Probably Benign BI-RADS 3 Ultrasound BI-RADS: 3 Probably benign Normal [facility] Surgery Visit Reporton 04-29 Surgery Visit Report [facility] [address] [place] [address] OFFICE VISIT Date of Service: 04/29/24 MR#: [id number] Acct: [id number] Name: Everette HERBERT Rep #: [id number] : 1960 Provider: Dr. Arben faustin MD Age/Sex: 63/F Location: [facility] Status: Signed Intake Vital Signs 04/22/23 12:12 04/29/24 13:10 Height 5 ft 5 in BP 134/80 H Blood Pressure Location Lt brachial Position Sitting Respiration 18 Pulse 68 Pulse Source Monitor Pulse Oximetry (%) 100 Oxygen Delivery Method room air Intake Visit Reasons: PORT REMOVAL Chief Complaint: port removal Is patient in pain?: No Allergies sulfamethoxazole (From Bactrim) Allergy (Unknown, Verified 04/29/24 13:10) Nausea/Vom/Diarrhea trimethoprim (From Bactrim) Allergy (Unknown, Verified 04/29/24 13:10) Nausea/Vom/Diarrhea Medications ???Medication ???Instructions ???Recorded ???Confirmed ???Type paroxetine HCl 30 mg tablet 30 mg PO DAILY anxiety 11/03/19 History Saccharomyces boulardii 250 mg 250 mg PO BID digestion/probiotic 12/18/19 04/29/24 History capsule ondansetron HCl 8 mg tablet 4 - 8 mg PO Q8H PRN PRN Nausea 04/29/24 History calcium carbonate (Calcium 600) 800 mg PO DAILY 04/17/23 04/29/24 History cholecalciferol (vitamin D3) 25 25 mcg PO DAILY 04/17/23 04/29/24 History mcg (1,000 unit) capsule magnesium oxide 500 mg capsule 250 mg PO DAILY 04/17/23 04/29/24 History multivitamin (Daily Multi-Vitamin 1 tab PO DAILY 04/18/23 04/29/24 History tablet) [facility] Medical History (Updated 04/29/24 @ 13:09 by Kenn Amin) Encounter for insertion of venous access port Wears contact lenses Post-menopausal Cancer Heartburn Non-smoker History of retinal tear Gallbladder polyp Anxiety GERD (gastroesophageal reflux disease) Breast cancer Diarrhea Arthritis Surgical History History of colonoscopy ( 01/2020) History of esophagogastroduodenoscopy (EGD) ( 01/2020) History of breast augmentation ( 2006) History of tubal ligation ( 1992) History of lumpectomy History of colonoscopy ( 2014) Family History (Updated 04/17/23 @ 08:22 by Kenn Amin) Grandfather Diabetes Grandmother Hypertension CVA (cerebral vascular accident) Social History Smoking Status: Never smoker alcohol intake: never HPI HPI HPI: Patient is a 63-year-old female here with history of breast cancer here for port removal ROS General General: Yes breast cancer; No weight change, appetite, fatigue, colon cancer or weakness HEENT HEENT: Yes eye surgery; No difficulty swallowing, eye injury, swollen glands or hoarseness Endo Endocrine: No thyroid disease, diabetes mellitus, thyroid cancer, Hair loss, heat intolerance or cold intolerance Skin Skin: No rash or changing moles Musc Musculoskeletal: No back problems, arthritis, rheumatoid arthritis, gout or joint pain Cardio Cardiovascular: No murmur, pacemaker, heart disease, atrial fibrillation, high blood pressure, heart attack, heart stent, palpitations, shortness of breat with exertion or chest pain Psych Psychiatric: Yes anxiety; No depression or hearing voices Resp Respiratory: No shortness of breath, No sleep apnea, No cough, No COPD, No asthma, No emphysema and No wheezing Gastro Gastrointestinal: No abdominal pain, No nausea or vomiting, No diarrhea, No constipation, No blood in stool, No acid reflux, No hemorrhoids, No ulcers, No gallbladder problem and No black,tarry stools Layo Hematologic: No blood thinners, No blood disorders, No bleeding, No anemia and No blood clots Neuro Neurologic: No system reviewed and no additional complaints, except as documented, No as per HPI, No abnormal gait, No abnormal hearing, No abnormal movements, No abnormal speech, No behavioral changes, No burning sensations, No confusion, No convulsions, No disequilibrium, No dizziness, No localized weakness, No frequent falls, No headache(s), No lack of coordination, No loss of vision, No memory loss, No numbness, No other visual disturbances, No radicular pain, No restless legs, No sensory deficit, No syncope, No tingling, No tremor(s), No weakness and No other Exam Const General: cooperative Orientation: alert and oriented x3 HENMT Head: normal to inspection Neck Neck: normal visual inspection and full ROM Chest Chest palpation inspection: normal inspection of the chest Resp Effort Inspection: normal respiratory effort Auscultation: clear to auscultation bilaterally Cardio Rate: regular rate Rhythm: regular rhythm GI Inspection: non-distended Palpation: soft and nontender Skin General: no rashes or lesi (more content not included)... Normal [facility] CNPNon 04-27-2024 CNPN Normal [facility] Inital Evaluation (1) - PTon 04-27-2024 Inital Evaluation (1) - PT [facility] Physical Therapy [facility] [address] [place] [address] [address] [place] [id number] / REHABILITATION SERVICES INITIAL EVALUATION MR#: [id number] Acct: [id number] Name: Everette HERBERT Rep #: [id number] : 1960 63 From: Reena Arriaza PT. T, OCS Referring Dr.: Dr. Alec Kong MD Status: REG R Insurance: MEDICARE PART A B [facility] Patient's Visit Information Visit Information Visit Information: Everette HERBERT is a 63 year old F referred to Physical Therapy by Dr. 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 Date of Evaluation: 04/27/24 Physical Therapist: Chase Manjarrez PT, Cert T, OCS Visit Plan Frequency: 1-2x /Week Duration: 4 Weeks Plan: PT INTERVENTIONS DLS ,POSTURAL EX'S ,LE FLEXABILITY ,ACTIVITY MODIFICATION AND MODALTIES Subjective Subjective: This 63 y/o female presents to physical therapy with lumbar radiculopathy . Patient started with symptoms Dec 2023 . Initially injury occurred with lifting something heavy and 2nd lifting KB. Patient symptoms worse in night in calf. Patient experienced calf symptoms since Feb . Seen did 2 rounds of prednisone and gabapentin.X-rays multilevel degenerative disc changes with asymmetric narrowing at multiple levels. Marked narrowing L5-S1. Patient had mild pain calf and foot. Aggravating sitting ,lifting . Alleviating factors walking standing. Coughing/sneezing -. Bowel/bladder-. Sleeping good pain can hinder sleep. Patient workouts 3 x/week. Patient condition affects QOL /function and working out. Patient goals to have no more pain. 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 Pain Right: Pain Intensity (Out of 10): 1 Pain Intensity Range: 10 Right Lower Extremity: Pain Intensity (Out of 10): 1 Pain Intensity Range: 10 Comment: calf Objective Objective: POSTURE: mild forward posture GAIT: reciprocal pattern PALAPTION: unremarkable FLEXABILITY: hamstrings mod tight + MMT: quads/hams/hip ,ankle 4/5 LUMBAR ROM: flexion mod loss ,extension mod loss ,side glides mod loss Special Tests L/S Slump test left side: Negative L/S Slump test right side: Negative L/S Left Straight Leg Raise: Negative L/S Right Straight Leg Raise: Negative Lumbar Standing: Flexion - Mechanical Response: No effect Lumbar Standing: Flexion - Symptoms During Testing: Increases Lumbar Standing: Flexion - Symptoms After Testing: No worse Comments:: calf Lumbar Standing: Extension - Mechanical Response: No effect Lumbar Standing: Extension - Symptoms During Testing: Increases Lumbar Standing: Extension - Symptoms After Testing: No worse Comments:: back Lumbar Standing: Right Side Glides - Mechanical Response: No effect Lumbar Standing: Right Side Josephine - Symptoms During Testing: No effect Lumbar Standing: Right Side Josephine - Symptoms After Testing: No effect Lumbar Standing: Left Side Josephine - Mechanical Response: No effect Lumbar Standing: Left Side Josephine - Symptoms During Testing: No effect Lumbar Standing: Left Side Josephine - Symptoms After Testing: No effect Lumbar Lying: Flexion - Mechanical Response: No effect Lumbar Lying: Flexion - Symptoms During Testing: Increases Lumbar Lying: Flexion - Symptoms After Testing: No worse Comments:: back right side Balance/Special Test Scores Oswestry Low Back Score: 5 Goals Goal 1:: Patient to be I with HEP for back Goal Time Frame: 4-6 Weeks Goal 2:: Patient to demonstrate 60% improvement with less pain and improved function Goal Time Frame: 4-6 Weeks Goal 3:: Patient to improve lumbar ROM for function of recovery for lifting and ADL Goal Time Frame: 4-6 Weeks Goal 4:: Patient to improve back oswestry score by 5 points to improve function and QOL Goal Time Frame: 4-6 Weeks Rehabilitation Potential Physical Therapy Diagnosis: This patient has lumbar radiculopathy with possible foraminal stenosis with symptoms worse with positioning and motion testing thus benefit from skilled PT Rehabilitation Potential: Good Anticipated Interventions Patient/Client Instruction: Educate patient on: Condition and Plan of Care For the Purpose of:: To decrease pain, To increase ROM, To improve muscle performance and motor function, To improve ability to perform ADL's, To increase tolerance to activity/condition/position, To improve ability of physical actions for home/community/work/leisure, To improve health of tissue, To decrease soft tissue restriction, To increase flexibility/ROM, To reduce risk of recurrence and To improve tolerance to ADL's Therapeutic Exercise to Include: Strength training, Postural training, Flexibilty training, Dynamic Lumbar Stabilization and Prem Exercises For the Purpose of:: To decrease pain, To increase ROM, To improve muscle performance and motor function, To increase tolerance to activ (more content not included)... Normal [facility] L/S Spine w Bend Min 6 Vwon 04-07-2024 L/S Spine w Bend Min 6 Vw [facility] [address] [place], [place] [address] L/S Spine w Bend Min 6 Vw MR#: [id number] Acct: [id number] Name: Everette HERBERT Rep #: [id number] : 1960 F 63 From: Thu Moulton MD PCP: Dr. Hellen Lafleur MD Status: REG CLI Study: L/S Spine w Bend Min 6 Vw Date of Exam: Exam# [id number] Ordering Dr: Alec Kong -[id number] EXAM: XR LUMBOSACRAL SPINE COMPLETE WITH FLEXION/EXTENSION, 6 VIEWS CLINICAL INDICATION: R leg radiculopathy TECHNIQUE: Lateral, frontal, oblique and lateral flexion/extension views of the lumbar spine and sacrum. COMPARISON: No relevant prior studies available. FINDINGS: VERTEBRAE: Unremarkable. Preserved vertebral body height. No fracture. No spondylolisthesis. Preservation of the normal lumbar lordosis on the neutral view. Mild facet joint arthropathy multiple levels. DISC SPACES: Moderate disc space narrowing at L2-3 with asymmetric disc space on the frontal view minimal scoliosis, prominent left L2-3 spondylosis. Asymmetric narrowing of the right L3-4 disc space on the frontal view. Marked disc space narrowing at L5-S1. Mild disc space narrowing at L4-5. MOTION: The usual lordotic curvature appears unchanged on exam labeled flexion, it is minimally accentuated on exam labeled extension. Limited mobility. GASTROINTESTINAL TRACT: Unremarkable as visualized. Included bowel gas pattern is non-obstructive. Moderate stool in the rectosigmoid and right colon. RAD/L/S Spine w Bend Min 6 Vw IMPRESSION: Multilevel degenerative disc changes with asymmetric narrowing at multiple levels. Marked narrowing L5-S1. No evidence of lumbar spinal fracture or spondylolisthesis. No instability. Very limited mobility on flexion and extension, only minimally accentuated lordosis on the extension view. Electronically Signed: Thu Moulton MD at 1:49 EST , CC: Dr. Alec Kong MD; Dr. Hellen Lafleur MD 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: Signed [facility] 03-19-2024 [facility] Normal [facility] CBC W Auto Differential pane l (Bld)on 02-24-2024 Basophils (Bld) [#/Vol] 0.03 10*3/uL [facility] Basophils/100 WBC (Bld) 0.7 % [facility] Differential cell count method Nom (Bld) Auto [facility] Eosinophils (Bld) [#/Vol] 0.18 10*3/uL [facility] Eosinophils/100 WBC (Bld) 4.3 % [facility] Erythrocyte distribution width (RBC) [Ratio] 13.4 % 11.5 - 15.0 % [facility] Hematocrit (Bld) [Volume fraction] 33.7 % Low 36.0 - 46.0 % [facility] Hemoglobin (Bld) [Mass/Vol] 11.5 g/dL 11.5 - 15.5 g/dL [facility] Immature granulocytes (Bld) [#/Vol] NINF [facility] Immature granulocytes/100 WBC (Bld) 0.0 % [facility] Interpretation and review of laboratory results Abnormal [facility] Lymphocytes (Bld) [#/Vol] 0.61 10*3/uL Low [facility] Lymphocytes/100 WBC (Bld) 14.6 % [facility] MCH (RBC) [Entitic mass] 29.8 pg 26.0 - 34.0 pg [facility] MCHC (RBC) [Mass/Vol] 34.1 g/dL 30.5 - 36.0 g/dL [facility] MCV (RBC) [Entitic vol] 87.3 fL 80.0 - 100.0 fL [facility] Monocytes (Bld) [#/Vol] 0.49 10*3/uL [facility] Monocytes/100 WBC (Bld) 11.7 % [facility] Neutrophils (Bld) [#/Vol] 2.87 10*3/uL [facility] Neutrophils/100 WBC (Bld) 68.7 % [facility] Nucleated RBC (Bld) [#/Vol] [facility] Nucleated RBC/100 WBC (Bld) [Ratio] 0.0 % /100 WBC [facility] Platelet mean volume (Bld) [Entitic vol] 8.7 fL Low 9.0 - 12.7 fL [facility] Platelets (Bld) [#/Vol] 233 10*3/uL [facility] RBC (Bld) [#/Vol] 3.86 10*6/uL Low 3.90 - 5.20 m/uL [facility] WBC (Bld) [#/Vol] 4.18 10*3/uL [facility] Basophils (Bld) [#/Vol] 0.03 10*3/uL Normal <0.11 [facility] Comment on above: Order Comment: Speci men Type: BLOOD SPECIMENOrdering Facility: [facility] Address: [address] [place] [address] Performed By: #### 5 7021-8 ####[facility] GALINA [facility]ITALNANO [id number] [place] [address] [place] Basophils/100 WBC (Bld) 0.7 % Normal [facility] Comment on above: Order Comment: Speci men Type: BLOOD SPECIMENOrdering Facility: [facility] Address: [address] [place] [address] Performed By: #### 5 7021-8 ####[facility] OC[facility]AWNCL[facility] [id number] [place] [address] [place] Differential cell count method Nom (Bld) Auto Normal [facility] Comment on above: Order Comment: Speci men Type: BLOOD SPECIMENOrdering Facility: [facility] Address: [address] [place] [address] Performed By: #### 5 7021-8 ####[facility] ERA [id number] [place] [address] [place] Eosinophils (Bld) [#/Vol] 0.18 10*3/uL Normal <0.46 [facility] Comment on above: Order Comment: Speci men Type: BLOOD SPECIMENOrdering Facility: [facility] Address: [address] [place] [address] Performed By: #### 5 7021-8 ####[facility] MED[facility] CENTERLIA [id number] [place] [address] [place] Eosinophils/100 WBC (Bld) 4.3 % Normal [facility] Comment on above: Order Comment: Speci men Type: BLOOD SPECIMENOrdering Facility: [facility] Address: [address] [place] [address] Performed By: #### 5 7021-8 ####[facility] ER [id number] [place] [address] [place] Erythrocyte distribution width (RBC) [Ratio] 13.4 % Normal 11.5-15.0 [facility] Comment on above: Order Comment: Speci men Type: BLOOD SPECIMENOrdering Facility: [facility] Address: [address] [place] [address] Performed By: #### 5 7021-8 ####[facility] VUTEMITOPELIA [id number] [place] [address] [place] Hematocrit (Bld) [Volume fraction] 33.7 % Low 36.0-46.0 [facility] Comment on above: Order Comment: Speci men Type: BLOOD SPECIMENOrdering Facility: [facility] Address: [address] [place] [address] Performed By: #### 5 7021-8 ####[facility] OMARLOS ANGELESNCLIA [id number] [place] [address] [place] Hemoglobin (Bld) [Mass/Vol] 11.5 g/dL Normal 11.5-15.5 [facility] Comment on above: Order Comment: Speci men Type: BLOOD SPECIMENOrdering Facility: [facility] Address: [address] [place] [address] Performed By: #### 5 7021-8 ####[facility] OMARLOS ANGELESTEMITOPELIA [id number] [place] [address] [place] Immature granulocytes (Bld) [#/Vol] 10*3/uL Normal <0.10 [facility] Comment on above: Order Comment: Speci men Type: BLOOD SPECIMENOrdering Facility: [facility] Address: [address] [place] [address] Performed By: #### 5 7021-8 ####[facility] OMARLOS ANGELESTEMITOPELIA [id number] [place] [address] [place] Immature granulocytes/100 WBC (Bld) 0.0 % Normal [facility] Comment on above: Order Comment: Speci men Type: BLOOD SPECIMENOrdering Facility: [facility] Address: [address] [place] [address] Performed By: #### 5 7021-8 ####[facility] OMARBELLEVUE [facility] [id number] [place] [address] [place] Lymphocytes (Bld) [#/Vol] 0.61 10*3/uL Low 1.00-4.00 [facility] Comment on above: Order Comment: Speci men Type: BLOOD SPECIMENOrdering Facility: [facility] Address: [address] [place] [address] Performed By: #### 5 7021-8 ####[facility] ER [id number] [place] [address] [place] Lymphocytes/100 WBC (Bld) 14.6 % Normal [facility] Comment on above: Order Comment: Speci men Type: BLOOD SPECIMENOrdering Facility: [facility] Address: [address] [place] [address] Performed By: #### 5 7021-8 ####[facility] [id number] [address] [place] MCH (RBC) [Entitic mass] 29.8 pg Normal 26.0-34.0 [facility] Comment on above: Order Comment: Speci men Type: BLOOD SPECIMENOrdering Facility: [facility] Address: [address] [place] [address] Performed By: #### 5 7021-8 ####[facility] [id number] [place] [address] [place] MCHC (RBC) [Mass/Vol] 34.1 g/dL Normal 30.5-36.0 [facility] Comment on above: Order Comment: Speci men Type: BLOOD SPECIMENOrdering Facility: [facility] Address: [address] [place] [address] Performed By: #### 5 7021-8 ####[facility]ENTERNCLI [id number] [place] [address] [place] MCV (RBC) [Entitic vol] 87.3 fL Normal 80.0-100.0 [facility] Comment on above: Order Comment: Speci men Type: BLOOD SPECIMENOrdering Facility: [facility] Address: [address] [place] [address] Performed By: #### 5 7021-8 ####[facility] [id number] [place] [address] [place] Monocytes (Bld) [#/Vol] 0.49 10*3/uL Normal <0.87 [facility] Comment on above: Order Comment: Speci men Type: BLOOD SPECIMENOrdering Facility: [facility] Address: [address] [place] [address] Performed By: #### 5 7021-8 ####[facility] [id number] [place] [address] [place] Monocytes/100 WBC (Bld) 11.7 % Normal [facility] Comment on above: Order Comment: Speci men Type: BLOOD SPECIMENOrdering Facility: [facility] Address: [address] [place] [address] Performed By: #### 5 7021-8 ####[facility] [id number] [place] [address] [place] Neutrophils (Bld) [#/Vol] 2.87 10*3/uL Normal 1.45-7.50 [facility] Comment on above: Order Comment: Speci men Type: BLOOD SPECIMENOrdering Facility: [facility] Address: [address] [place] [address] Performed By: #### 5 7021-8 ####[facility] [id number] [place] [address] [place] Neutrophils/100 WBC (Bld) 68.7 % Normal [facility] Comment on above: Order Comment: Speci men Type: BLOOD SPECIMENOrdering Facility: [facility] Address: [address] [place] [place] [id number] Performed By: #### 5 7021-8 ####[facility] OMARWNCLIA [id number] [place] [address] [place] Nucleated RBC (Bld) [#/Vol] 10*3/uL Normal <0.01 [facility] Comment on above: Order Comment: Speci men Type: BLOOD SPECIMENOrdering Facility: [facility] Address: [address] [place] [address] Performed By: #### 5 7021-8 ####[facility]ENTERNCLIA [id number] [place] [address] [place] Nucleated RBC/100 WBC (Bld) [Ratio] 0.0 /100 WBC Normal [facility] Comment on above: Order Comment: Speci men Type: BLOOD SPECIMENOrdering Facility: [facility] Address: [address] [place] [address] Performed By: #### 5 7021-8 ####[facility]ENTERNCLIA [id number] [place] [address] [place] Platelet mean volume (Bld) [Entitic vol] 8.7 fL Low 9.0-12.7 [facility] Comment on above: Order Comment: Speci men Type: BLOOD SPECIMENOrdering Facility: [facility] Address: [address] [place] [address] Performed By: #### 5 7021-8 ####[facility]ENTERNCLIA [id number] [place] [address] [place] Platelets (Bld) [#/Vol] 233 10*3/uL Normal 150-400 [facility] Comment on above: Order Comment: Speci men Type: BLOOD SPECIMENOrdering Facility: [facility] Address: [address] [place] [address] Performed By: #### 5 7021-8 ####[facility]ENTERNCLIA [id number] [place] [address] [place] RBC (Bld) [#/Vol] 3.86 10*6/uL Low 3.90-5.20 [facility] Comment on above: Order Comment: Speci men Type: BLOOD SPECIMENOrdering Facility: [facility] Address: [address] [place] [address] Performed By: #### 5 7021-8 ####[facility] CENTERNCLIBrandee [id number] [place] [address] [place] WBC (Bld) [#/Vol] 4.18 10*3/uL Normal 3.70-11.00 [facility] Comment on above: Order Comment: Speci men Type: BLOOD SPECIMENOrdering Facility: [facility] Address: [address] [place] [address] Performed By: #### 5 7021-8 ####[facility] [id number] [place] [address] [place] CNOVSPon 02-24-2024 CNOVSP Normal [facility] CNPNon 02-24-2024 CNPN Normal [facility] Comprehensive metabolic 2000 panelOrdered By: Dali Pepe on 02-24-2024 Albumin [Mass/Vol] 4.3 g/dL 3.9 - 4.9 g/dL [facility] ALP [Catalytic activity/Vol] 79 U/L 34 - 123 U/L [facility] ALT [Catalytic activity/Vol] 8 U/L 7 - 38 U/L [facility] Anion gap [Moles/Vol] 10 mmol/L 8 - 15 mmol/L [facility] AST [Catalytic activity/Vol] 18 U/L 13 - 35 U/L [facility] Bilirubin [Mass/Vol] 0.3 mg/dL 0.2 - 1.3 mg/dL [facility] Calcium [Mass/Vol] 9.7 mg/dL 8.5 - 10. 2 mg/dL [facility] Chloride [Moles/Vol] 99 mmol/L 98 - 107 mmol/L [facility] CO2 [Moles/Vol] 24 mmol/L 22 - 30 mmol/L [facility] Creatinine [Mass/Vol] 0.77 mg/dL 0.58 - 0.96 mg/dL [facility] GFR/1.73 sq M.predicted among non-blacks MDRD (S/P/Bld) [Vol rate/Area] 86 mL/min/{1.73_m2} - PINF [facility] Comment on above: Estimated Glomerular Filtration Rate (eGFR) is calculated using the 2020 CKD-EPI creatinine equation. This equation utilizes serum creatinine, sex, and age as parameters. The creatinine assay has traceable calibration to isotope dilution-mass spectrometry. Refer to KDIGO guidelines for clinical interpretation. In patients with unstable renal function, e.g. those with acute kidney injury, the eGFR may not accurately reflect actual GFR. Glucose [Mass/Vol] 139 mg/dL High 74 - 99 mg/dL [facility] Comment on above: The Stateless Diabete s Association (ADA) provides guidance for cutoff values for fasting glucose and random glucose. The ADA defines fasting as no caloric intake for at least 8 hours. Fasting plasma glucose results between 100 to 125 mg/dL indicate increased risk for diabetes (prediabetes). Fasting plasma glucose results greater than or equal to 126 mg/dL meet the criteria for diagnosis of diabetes. In the absence of unequivocal hyperglycemia, results should be confirmed by repeat testing. In a patient with classic symptoms of hyperglycemia or hyperglycemic crisis, random plasma glucose results greater than or equal to 200 mg/dL meet the criteria for diagnosis of diabetes. Reference: Standards of Medical Care in Diabetes 2016, Stateless Diabetes Association. Diabetes Care. 2016.39(Suppl 1). Interpretation and review of laboratory results Abnormal [facility] Potassium [Moles/Vol] 3.9 mmol/L 3.7 - 5.1 mmol/L [facility] Protein [Mass/Vol] 6.5 g/dL 6.3 - 8.0 g/dL [facility] Sodium [Moles/Vol] 133 mmol/L Low 136 - 144 mmol/L [facility] Urea nitrogen [Mass/Vol] 14 mg/dL 7 - 21 mg/dL [facility] Comprehensive metabolic 2000 panelon 02-24-2024 Albumin [Mass/Vol] 4.3 g/dL Normal 3.9-4.9 [facility] Comment on above: Order Comment: Speci men Type: BLOOD SPECIMENOrdering Facility: [facility] Address: [address] [place] [address] Performed By: #### 2 4323-8 ####[facility] GALINA MILLTOWNCLIA [id number] [place] [address] [place] ALP [Catalytic activity/Vol] 79 U/L Normal 34-123 [facility] Comment on above: Order Comment: Speci men Type: BLOOD SPECIMENOrdering Facility: [facility] Address: [address] [place] [address] Performed By: #### 2 4323-8 ####[facility] GALINA MILLTOWNCLIA [id number] [place] [address] [place] ALT [Catalytic activity/Vol] 8 U/L Normal 7-38 [facility] Comment on above: Order Comment: Speci men Type: BLOOD SPECIMENOrdering Facility: [facility] Address: [address] [place] [address] Performed By: #### 2 4323-8 ####[facility] GALINA MILLTOWNCLIA [id number] [place] [address] [place] Anion gap [Moles/Vol] 10 mmol/L Normal 8-15 [facility] Comment on above: Order Comment: Speci men Type: BLOOD SPECIMENOrdering Facility: [facility] Address: [address] [place] [address] Performed By: #### 2 4323-8 ####[facility] GALINA MILLTOWNCLIA [id number] [place] [address] [place] AST [Catalytic activity/Vol] 18 U/L Normal 13-35 [facility] Comment on above: Order Comment: Speci men Type: BLOOD SPECIMENOrdering Facility: [facility] Address: [address] [place] [address] Performed By: #### 2 4323-8 ####[facility] GALINA MILLTOWNCLIA [id number] [place] [address] [place] Bilirubin [Mass/Vol] 0.3 mg/dL Normal 0.2-1.3 [facility] Comment on above: Order Comment: Speci men Type: BLOOD SPECIMENOrdering Facility: [facility] Address: [address] [place] [address] Performed By: #### 2 4323-8 ####[facility] MILLTOWNCLIA [id number] [place] [address] [place] Calcium [Mass/Vol] 9.7 mg/dL Normal 8.5-10.2 [facility] Comment on above: Order Comment: Speci men Type: BLOOD SPECIMENOrdering Facility: [facility] Address: [address] [place] [address] Performed By: #### 2 4323-8 ####[facility] OCALAWNCLIA [id number] [place] [address] [place] Chloride [Moles/Vol] 99 mmol/L Normal 98-107 [facility] Comment on above: Order Comment: Speci men Type: BLOOD SPECIMENOrdering Facility: [facility] Address: [address] [place] [address] Performed By: #### 2 4323-8 ####[facility] MILLTOWNCLIA [id number] [place] [address] [place] CO2 [Moles/Vol] 24 mmol/L Normal 22-30 [facility] Comment on above: Order Comment: Speci men Type: BLOOD SPECIMENOrdering Facility: [facility] Address: [address] [place] [address] Performed By: #### 2 4323-8 ####[facility] GALINA MILLTOWNCLIA [id number] [place] [address] [place] Creatinine [Mass/Vol] 0.77 mg/dL Normal 0.58-0.96 [facility] Comment on above: Order Comment: [place] villarreal Type: BLOOD SPECIMENOrdering Facility: [facility] Address: [address] [place] [address] Performed By: #### 2 4323-8 ####[facility] [id number] [place] [address] [place] Creatinine and Glomerular filtration rate.predicted panel (S/P/Bld) 86 mL/min/1.73m??? Normal >=60 [facility] Comment on above: Order Comment: [place] villarreal Type: BLOOD SPECIMENOrdering Facility: [facility] Address: [address] [place] [address] Result Comment: Alayna mated Glomerular Filtration Rate (eGFR) is calculated using the 2020 CKD-EPI creatinine equation. This equation utilizes serum creatinine, sex, and age as parameters. The creatinine assay has traceable calibration to isotope dilution-mass spectrometry. Refer to KDIGO guidelines for clinical interpretation. In patients with unstable renal function, e.g. those with acute kidney injury, the eGFR may not accurately reflect actual GFR. Performed By: #### 2 4323-8 ####[facility] [id number] [place] [address] [place] Glucose [Mass/Vol] 139 mg/dL High 74-99 [facility] Comment on above: Order Comment: [place] villarreal Type: BLOOD SPECIMENOrdering Facility: [facility] Address: [address] [place] [address] Result Comment: The Stateless Diabetes Association (ADA) provides guidance for cutoff values for fasting glucose and random glucose. The ADA defines fasting as no caloric intake for at least 8 hours. Fasting plasma glucose results between 100 to 125 mg/dL indicate increased risk for diabetes (prediabetes).Fasting plasma glucose results greater than or equal to 126 mg/dL meet the criteria for diagnosis of diabetes. In the absence of unequivocal hyperglycemia, results should be confirmed by repeat testing. In a patient with classic symptoms of hyperglycemia or hyperglycemic crisis, random plasma glucose results greater than or equal to 200 mg/dL meet the criteria for diagnosis of diabetes.Reference: Standards of Medical Care in Diabetes 2016, Stateless Diabetes Association. Diabetes Care. 2016.39(Suppl 1). Performed By: #### 2 4323-8 ####[facility] MILLTOWNCLIA [id number] [place] [address] [place] Potassium [Moles/Vol] 3.9 mmol/L Normal 3.7-5.1 [facility] Comment on above: Order Comment: Speci men Type: BLOOD SPECIMENOrdering Facility: [facility] Address: [address] [place] [address] Performed By: #### 2 4323-8 ####[facility] OC[facility]AWNCL[facility] [id number] [place] [address] [place] Protein [Mass/Vol] 6.5 g/dL Normal 6.3-8.0 [facility] Comment on above: Order Comment: Speci men Type: BLOOD SPECIMENOrdering Facility: [facility] Address: [address] [place] [address] Performed By: #### 2 4323-8 ####[facility]ERNCLIA [id number] [place] [address] [place] Sodium [Moles/Vol] 133 mmol/L Low 136-144 [facility] Comment on above: Order Comment: Speci men Type: BLOOD SPECIMENOrdering Facility: [facility] Address: [address] [place] [address] Performed By: #### 2 4323-8 ####[facility] MILLTOWNCLIA [id number] [place] [address] [place] Urea nitrogen [Mass/Vol] 14 mg/dL Normal 7-21 [facility] Comment on above: Order Comment: Speci men Type: BLOOD SPECIMENOrdering Facility: [facility] Address: [address] [place] [address] Performed By: #### 2 4323-8 ####[facility] MILLWNCLIA [id number] [place] [address] [place] Cortis SerPl-mCncon 02-24-20 24 Cortisol [Mass/Vol] 10.2 ug/dL Normal 4.8-19.5 [facility] Comment on above: Order Comment: Speci men Type: BLOOD SPECIMENOrdering Facility: [facility] Address: [address] [place] [address] Result Comment: Prov ided reference range is from 6-10 AM sample collection time.Cortisol Reference Range: 6-10 AM = 4.8-19.5 ug/dL, 4-8 PM = 2.5-11.9 ug/dL Performed By: #### 3 024-7, 3015-3, 2142-08 ####[facility] LABCLIA [id number] [place] [address] [place] T4 Free SerPl-mCncon 024 Free T4 [Mass/Vol] 1.1 ng/dL Normal 0.9-1.7 [facility] Comment on above: Order Comment: Speci men Type: BLOOD SPECIMENOrdering Facility: [facility] Address: [address] [place] [address] Performed By: #### 3 024-7, 3, 2142-08 ####[facility] LABCLIA [id number] [place] [address] [place] TSH SerPl-aCncon 02-24-2024 TSH Qn 1.040 m[IU]/L Normal 0.270-4.20 0 [facility] Comment on above: Order Comment: Speci men Type: BLOOD SPECIMENOrdering Facility: [facility] Address: [address] [place] [address] Performed By: #### 3 024-7, 3, 2142-08 ####[facility] LABCLIA [id number] [place] [address] [place] CBC W Auto Differential pane l (Bld)on 01-13-2024 Basophils (Bld) [#/Vol] 0.05 10*3/uL [facility] Basophils/100 WBC (Bld) 1.4 % [facility] Differential cell count method Nom (Bld) Auto [facility] Eosinophils (Bld) [#/Vol] 0.17 10*3/uL [facility] Eosinophils/100 WBC (Bld) 4.7 % [facility] Erythrocyte distribution width (RBC) [Ratio] 13.6 % 11.5 - 15.0 % [facility] Hematocrit (Bld) [Volume fraction] 34.1 % Low 36.0 - 46.0 % [facility] Hemoglobin (Bld) [Mass/Vol] 11.4 g/dL Low 11.5 - 15.5 g/dL [facility] Immature granulocytes (Bld) [#/Vol] [facility] Immature granulocytes/100 WBC (Bld) 0.3 % [facility] Interpretation and review of laboratory results Abnormal [facility] Lymphocytes (Bld) [#/Vol] 0.43 10*3/uL Low [facility] Lymphocytes/100 WBC (Bld) 11.9 % [facility] MCH (RBC) [Entitic mass] 29.0 pg 26.0 - 34.0 pg [facility] MCHC (RBC) [Mass/Vol] 33.4 g/dL 30.5 - 36.0 g/dL [facility] MCV (RBC) [Entitic vol] 86.8 fL 80.0 - 100.0 fL [facility] Monocytes (Bld) [#/Vol] 0.63 10*3/uL [facility] Monocytes/100 WBC (Bld) 17.5 % [facility] Neutrophils (Bld) [#/Vol] 2.32 10*3/uL [facility] Neutrophils/100 WBC (Bld) 64.2 % [facility] Nucleated RBC (Bld) [#/Vol] [facility] Nucleated RBC/100 WBC (Bld) [Ratio] 0.0 % /100 WBC [facility] Platelet mean volume (Bld) [Entitic vol] 8.6 fL Low 9.0 - 12.7 fL [facility] Platelets (Bld) [#/Vol] 266 10*3/uL [facility] RBC (Bld) [#/Vol] 3.93 10*6/uL 3.90 - 5.20 m/uL [facility] WBC (Bld) [#/Vol] 3.61 10*3/uL Low [facility] Basophils (Bld) [#/Vol] 0.05 10*3/uL Normal <0.11 [facility] Comment on above: Order Comment: Speci men Type: BLOOD SPECIMENOrdering Facility: [facility] Address: [address] [place] [address] Performed By: #### 5 7021-8 ####[facility] MILLWNCLIA [id number] [place] [address] [place] Basophils/100 WBC (Bld) 1.4 % Normal [facility] Comment on above: Order Comment: Speci men Type: BLOOD SPECIMENOrdering Facility: [facility] Address: [address] [place] [address] Performed By: #### 5 7021-8 ####[facility] OC[facility]AWNCL[facility] [id number] [place] [address] [place] Differential cell count method Nom (Bld) Auto Normal [facility] Comment on above: Order Comment: Speci men Type: BLOOD SPECIMENOrdering Facility: [facility] Address: [address] [place] [address] Performed By: #### 5 7021-8 ####[facility] MED[facility] CENTERLIA [id number] [place] [address] [place] Eosinophils (Bld) [#/Vol] 0.17 10*3/uL Normal <0.46 [facility] Comment on above: Order Comment: Speci men Type: BLOOD SPECIMENOrdering Facility: [facility] Address: [address] [place] [address] Performed By: #### 5 7021-8 ####[facility] MILLWNCLIA [id number] [place] [address] [place] Eosinophils/100 WBC (Bld) 4.7 % Normal [facility] Comment on above: Order Comment: Speci men Type: BLOOD SPECIMENOrdering Facility: [facility] Address: [address] [place] [address] Performed By: #### 5 7021-8 ####[facility] OMARLOS ANGELESNCLIBrandee [id number] [place] [address] [place] Erythrocyte distribution width (RBC) [Ratio] 13.6 % Normal 11.5-15.0 [facility] Comment on above: Order Comment: Speci men Type: BLOOD SPECIMENOrdering Facility: [facility] Address: [address] [place] [address] Performed By: #### 5 7021-8 ####[facility]ENTERNCLIA [id number] [place] [address] [place] Hematocrit (Bld) [Volume fraction] 34.1 % Low 36.0-46.0 [facility] Comment on above: Order Comment: Speci men Type: BLOOD SPECIMENOrdering Facility: [facility] Address: [address] [place] [address] Performed By: #### 5 7021-8 ####[facility]ENTERNCLIA [id number] [place] [address] [place] Hemoglobin (Bld) [Mass/Vol] 11.4 g/dL Low 11.5-15.5 [facility] Comment on above: Order Comment: Speci men Type: BLOOD SPECIMENOrdering Facility: [facility] Address: [address] [place] [address] Performed By: #### 5 7021-8 ####[facility]ENTERNCLIA [id number] [place] [address] [place] Immature granulocytes (Bld) [#/Vol] 10*3/uL Normal <0.10 [facility] Comment on above: Order Comment: Speci men Type: BLOOD SPECIMENOrdering Facility: [facility] Address: [address] [place] [address] Performed By: #### 5 7021-8 ####[facility]ENTERNCLIA [id number] [address] [place] [facility] Immature granulocytes/100 WBC (Bld) 0.3 % Normal [facility] Comment on above: Order Comment: Speci men Type: BLOOD SPECIMENOrdering Facility: [facility] Address: [address] [place] [address] Performed By: #### 5 7021-8 ####[facility]ERNCLIA [id number] [place] [address] [place] Lymphocytes (Bld) [#/Vol] 0.43 10*3/uL Low 1.00-4.00 [facility] Comment on above: Order Comment: Speci men Type: BLOOD SPECIMENOrdering Facility: [facility] Address: [address] [place] [address] Performed By: #### 5 7021-8 ####[facility]ENTERNCLIA [id number] [place] [address] [place] Lymphocytes/100 WBC (Bld) 11.9 % Normal [facility] Comment on above: Order Comment: Speci men Type: BLOOD SPECIMENOrdering Facility: [facility] Address: [address] [place] [address] Performed By: #### 5 7021-8 ####[facility] MED[facility] CENTERLI [id number] [place] [address] [place] MCH (RBC) [Entitic mass] 29.0 pg Normal 26.0-34.0 [facility] Comment on above: Order Comment: Speci men Type: BLOOD SPECIMENOrdering Facility: [facility] Address: [address] [place] [address] Performed By: #### 5 7021-8 ####[facility]ENTERNCLI [id number] [place] [address] [place] MCHC (RBC) [Mass/Vol] 33.4 g/dL Normal 30.5-36.0 [facility] Comment on above: Order Comment: Speci men Type: BLOOD SPECIMENOrdering Facility: [facility] Address: [address] [place] [address] Performed By: #### 5 7021-8 ####[facility] CENTERTEMITOPELIA [id number] [place] [address] [place] MCV (RBC) [Entitic vol] 86.8 fL Normal 80.0-100.0 [facility] Comment on above: Order Comment: Speci men Type: BLOOD SPECIMENOrdering Facility: [facility] Address: [address] [place] [address] Performed By: #### 5 7021-8 ####[facility] CENTERBLAKEA [id number] [place] [address] [place] Monocytes (Bld) [#/Vol] 0.63 10*3/uL Normal <0.87 [facility] Comment on above: Order Comment: Speci men Type: BLOOD SPECIMENOrdering Facility: [facility] Address: [address] [place] [address] Performed By: #### 5 7021-8 ####[facility] CENTERBLAKEA [id number] [place] [address] [place] Monocytes/100 WBC (Bld) 17.5 % Normal [facility] Comment on above: Order Comment: Speci men Type: BLOOD SPECIMENOrdering Facility: [facility] Address: [address] [place] [address] Performed By: #### 5 7021-8 ####[facility]ENTERNCLIA [id number] [place] [address] [place] Neutrophils (Bld) [#/Vol] 2.32 10*3/uL Normal 1.45-7.50 [facility] Comment on above: Order Comment: Speci men Type: BLOOD SPECIMENOrdering Facility: [facility] Address: [address] [place] [address] Performed By: #### 5 7021-8 ####[facility] [id number] [place] [address] [place] Neutrophils/100 WBC (Bld) 64.2 % Normal [facility] Comment on above: Order Comment: Speci men Type: BLOOD SPECIMENOrdering Facility: [facility] Address: [address] [place] [address] Performed By: #### 5 7021-8 ####[facility]ENTERNCBEAV[facility] [id number] [place] [address] [place] Nucleated RBC (Bld) [#/Vol] 10*3/uL Normal <0.01 [facility] Comment on above: Order Comment: Speci men Type: BLOOD SPECIMENOrdering Facility: [facility] Address: [address] [place] [address] Performed By: #### 5 7021-8 ####[facility] [id number] [place] [address] [place] Nucleated RBC/100 WBC (Bld) [Ratio] 0.0 /100 WBC Normal [facility] Comment on above: Order Comment: Speci men Type: BLOOD SPECIMENOrdering Facility: [facility] Address: [address] [place] [address] Performed By: #### 5 7021-8 ####[facility] [id number] [place] [address] [place] Platelet mean volume (Bld) [Entitic vol] 8.6 fL Low 9.0-12.7 [facility] Comment on above: Order Comment: Speci men Type: BLOOD SPECIMENOrdering Facility: [facility] Address: [address] [place] [address] Performed By: #### 5 7021-8 ####[facility] DORAWNCLIA [id number] [place] [address] [place] Platelets (Bld) [#/Vol] 266 10*3/uL Normal 150-400 [facility] Comment on above: Order Comment: Speci men Type: BLOOD SPECIMENOrdering Facility: [facility] Address: [address] [place] [address] Performed By: #### 5 7021-8 ####[facility]ENTERNCLIA [id number] [place] [address] [place] [facility] [place] RBC (Bld) [#/Vol] 3.93 10*6/uL Normal 3.90-5.20 [facility] Comment on above: Order Comment: Speci men Type: BLOOD SPECIMENOrdering Facility: [facility] Address: [address] [place], [place] [address] Performed By: #### 5 7021-8 ####[facility]ENTERNCLIA [id number] [place] [address] [place] WBC (Bld) [#/Vol] 3.61 10*3/uL Low 3.70-11.00 [facility] Comment on above: Order Comment: Speci men Type: BLOOD SPECIMENOrdering Facility: [facility] Address: [address] [place], [place] [address] Performed By: #### 5 7021-8 ####[facility]ENTERNCLIA [id number] [place] [address] [place] CNOVSPon 01-13-2024 CNOVSP Normal [facility] metabolic 2000 panelOrdered By: Kat Araujo on 01-13-2024 Albumin [Mass/Vol] 4.2 g/dL 3.9 - 4.9 g/dL [facility] ALP [Catalytic activity/Vol] 72 U/L 34 - 123 U/L [facility] ALT [Catalytic activity/Vol] 10 U/L 7 - 38 U/L [facility] Anion gap [Moles/Vol] 9 mmol/L 8 - 15 mmol/L [facility] AST [Catalytic activity/Vol] 17 U/L 13 - 35 U/L [facility] Bilirubin [Mass/Vol] 0.2 mg/dL 0.2 - 1.3 mg/dL [facility] Calcium [Mass/Vol] 9.4 mg/dL 8.5 - 10. 2 mg/dL [facility] Chloride [Moles/Vol] 97 mmol/L Low 98 - 107 mmol/L [facility] CO2 [Moles/Vol] 26 mmol/L 22 - 30 mmol/L [facility] Creatinine [Mass/Vol] 0.69 mg/dL 0.58 - 0.96 mg/dL [facility] GFR/1.73 sq M.predicted among non-blacks MDRD (S/P/Bld) [Vol rate/Area] 97 mL/min/{1.73_m2} - PINF [facility] Comment on above: Estimated Glomerular Filtration Rate (eGFR) is calculated using the 2020 CKD-EPI creatinine equation. This equation utilizes serum creatinine, sex, and age as parameters. The creatinine assay has traceable calibration to isotope dilution-mass spectrometry. Refer to KDIGO guidelines for clinical interpretation. In patients with unstable renal function, e.g. those with acute kidney injury, the eGFR may not accurately reflect actual GFR. Glucose [Mass/Vol] 110 mg/dL High 74 - 99 mg/dL [facility] Comment on above: The Stateless Diabete s Association (ADA) provides guidance for cutoff values for fasting glucose and random glucose. The ADA defines fasting as no caloric intake for at least 8 hours. Fasting plasma glucose results between 100 to 125 mg/dL indicate increased risk for diabetes (prediabetes). Fasting plasma glucose results greater than or equal to 126 mg/dL meet the criteria for diagnosis of diabetes. In the absence of unequivocal hyperglycemia, results should be confirmed by repeat testing. In a patient with classic symptoms of hyperglycemia or hyperglycemic crisis, random plasma glucose results greater than or equal to 200 mg/dL meet the criteria for diagnosis of diabetes. Reference: Standards of Medical Care in Diabetes 2016, Stateless Diabetes Association. Diabetes Care. 2016.39(Suppl 1). Interpretation and review of laboratory results Abnormal [facility] Potassium [Moles/Vol] 4.2 mmol/L 3.7 - 5.1 mmol/L [facility] Protein [Mass/Vol] 6.8 g/dL 6.3 - 8.0 g/dL [facility] Sodium [Moles/Vol] 132 mmol/L Low 136 - 144 mmol/L [facility] Urea nitrogen [Mass/Vol] 10 mg/dL 7 - 21 mg/dL [facility] Comprehensive metabolic 2000 panelon 01-13-2024 Albumin [Mass/Vol] 4.2 g/dL Normal 3.9-4.9 [facility] Comment on above: Order Comment: Speci men Type: BLOOD SPECIMENOrdering Facility: [facility] Address: [address] [place] [address] Performed By: #### 2 4323-8 ####[facility] [id number] [place] [address] [place] ALP [Catalytic activity/Vol] 72 U/L Normal 34-123 [facility] Comment on above: Order Comment: Speci men Type: BLOOD SPECIMENOrdering Facility: [facility] Address: [address] [place] [address] Performed By: #### 2 4323-8 ####[facility] [id number] [place] [address] [place] ALT [Catalytic activity/Vol] 10 U/L Normal 7-38 [facility] Comment on above: Order Comment: Speci men Type: BLOOD SPECIMENOrdering Facility: [facility] Address: [address] [place] [address] Performed By: #### 2 4323-8 ####[facility] CENTERLIA [id number] [place] [address] [place] Anion gap [Moles/Vol] 9 mmol/L Normal 8-15 [facility] Comment on above: Order Comment: Speci men Type: BLOOD SPECIMENOrdering Facility: [facility] Address: [address] [place] [address] Performed By: #### 2 4323-8 ####[facility] MILLTOWNCLIA [id number] [place] [address] [place] AST [Catalytic activity/Vol] 17 U/L Normal 13-35 [facility] Comment on above: Order Comment: Speci men Type: BLOOD SPECIMENOrdering Facility: [facility] Address: [address] [place] [address] Performed By: #### 2 4323-8 ####[facility] OCALAWNCLIA [id number] [place] [address] [place] Bilirubin [Mass/Vol] 0.2 mg/dL Normal 0.2-1.3 [facility] Comment on above: Order Comment: Speci men Type: BLOOD SPECIMENOrdering Facility: [facility] Address: [address] [place] [address] Performed By: #### 2 4323-8 ####[facility] MED[facility] CENTERLIA [id number] [place] [address] [place] Calcium [Mass/Vol] 9.4 mg/dL Normal 8.5-10.2 [facility] Comment on above: Order Comment: Speci men Type: BLOOD SPECIMENOrdering Facility: [facility] Address: [address] [place] [address] Performed By: #### 2 4323-8 ####[facility] OCALAWNVLIA [id number] [place] [address] [place] Chloride [Moles/Vol] 97 mmol/L Low 98-107 [facility] Comment on above: Order Comment: Speci men Type: BLOOD SPECIMENOrdering Facility: [facility] Address: [address] [place] [address] Performed By: #### 2 4323-8 ####[facility]ERNCLIA [id number] [place] [address] [place] CO2 [Moles/Vol] 26 mmol/L Normal 22-30 [facility] Comment on above: Order Comment: Speci men Type: BLOOD SPECIMENOrdering Facility: [facility] Address: [address] [place] [address] Performed By: #### 2 4323-8 ####[facility] [id number] [place] [address] [place] Creatinine [Mass/Vol] 0.69 mg/dL Normal 0.58-0.96 [facility] Comment on above: Order Comment: Speci men Type: BLOOD SPECIMENOrdering Facility: [facility] Address: [address] [place] [address] Performed By: #### 2 4323-8 ####[facility] [id number] [place] [address] [place] Creatinine and Glomerular filtration rate.predicted panel (S/P/Bld) 97 mL/min/1.73m??? Normal >=60 [facility] Comment on above: Order Comment: Speci men Type: BLOOD SPECIMENOrdering Facility: [facility] Address: [address] [place] [address] Result Comment: Alayna mated Glomerular Filtration Rate (eGFR) is calculated using the 2020 CKD-EPI creatinine equation. This equation utilizes serum creatinine, sex, and age as parameters. The creatinine assay has traceable calibration to isotope dilution-mass spectrometry. Refer to KDIGO guidelines for clinical interpretation. In patients with unstable renal function, e.g. those with acute kidney injury, the eGFR may not accurately reflect actual GFR. Performed By: #### 2 4323-8 ####[facility] [id number] [place] [address] [place] Glucose [Mass/Vol] 110 mg/dL High 74-99 [facility] Comment on above: Order Comment: Speci men Type: BLOOD SPECIMENOrdering Facility: [facility] Address: [address] [place] [address] Result Comment: The Stateless Diabetes Association (ADA) provides guidance for cutoff values for fasting glucose and random glucose. The ADA defines fasting as no caloric intake for at least 8 hours. Fasting plasma glucose results between 100 to 125 mg/dL indicate increased risk for diabetes (prediabetes).Fasting plasma glucose results greater than or equal to 126 mg/dL meet the criteria for diagnosis of diabetes. In the absence of unequivocal hyperglycemia, results should be confirmed by repeat testing. In a patient with classic symptoms of hyperglycemia or hyperglycemic crisis, random plasma glucose results greater than or equal to 200 mg/dL meet the criteria for diagnosis of diabetes.Reference: Standards of Medical Care in Diabetes 2016, Stateless Diabetes Association. Diabetes Care. 2016.39(Suppl 1). Performed By: #### 2 4323-8 ####[facility] [id number] [place] [address] [place] Potassium [Moles/Vol] 4.2 mmol/L Normal 3.7-5.1 [facility] Comment on above: Order Comment: Speci men Type: BLOOD SPECIMENOrdering Facility: [facility] Address: [address] [place] [address] Performed By: #### 2 4323-8 ####[facility] [id number] [place] [address] [place] Protein [Mass/Vol] 6.8 g/dL Normal 6.3-8.0 [facility] Comment on above: Order Comment: Speci men Type: BLOOD SPECIMENOrdering Facility: [facility] Address: [address] [place] [address] Performed By: #### 2 4323-8 ####[facility] [facility] [id number] [place] [address] [place] Sodium [Moles/Vol] 132 mmol/L Low 136-144 [facility] Comment on above: Order Comment: Speci men Type: BLOOD SPECIMENOrdering Facility: [facility] Address: [address] [place] [address] Performed By: #### 2 4323-8 ####[facility] BOU[facility]ARDTOWNCLIA [id number] [place] [address] [place] Urea nitrogen [Mass/Vol] 10 mg/dL Normal 7- [facility] Comment on above: Order Comment: Speci men Type: BLOOD SPECIMENOrdering Facility: [facility] Address: [address] [place] [address] Performed By: #### 2 4323-8 ####[facility] [id number] [place] [address] [place] Cortis SerPl-mCncon 01-13-20 24 Cortisol [Mass/Vol] 9.4 ug/dL Normal 4.8-19.5 [facility] Comment on above: Order Comment: Speci men Type: BLOOD SPECIMENOrdering Facility: [facility] Address: [address] [place] [address] Result Comment: Prov ided reference range is from 6-10 AM sample collection time.Cortisol Reference Range: 6-10 AM = 4.8-19.5 ug/dL, 4-8 PM = 2.5-11.9 ug/dL Performed By: #### 3 024-7, 3016-3, 6 ####[facility] LABCLIA [id number] [place] [address] [place] T4 Free SerPl-mCncon 024 Free T4 [Mass/Vol] 1.1 ng/dL Normal 0.9-1.7 [facility] Comment on above: Order Comment: Speci men Type: BLOOD SPECIMENOrdering Facility: [facility] Address: [address] [place] [address] Performed By: #### 3 024-7, 3016-3, 6 ####[facility] LABCLIA [id number] [place] [address] [place] TSH SerPl-aCncon 01-13-2024 TSH Qn 1.280 m[IU]/L Normal 0.270-4.20 0 [facility] Comment on above: Order Comment: Speci men Type: BLOOD SPECIMENOrdering Facility: [facility] Address: [address] [place] [address] Performed By: #### 3 024-7, 3016-3, 2143-6 ####[facility] LABCLIA [id number] [facility] [id number] [address] [place] CBC W Auto Differential pane l (Bld)on 12-02-2023 Basophils (Bld) [#/Vol] 0.06 10*3/uL [facility] Basophils/100 WBC (Bld) 1.6 % [facility] Differential cell count method Nom (Bld) Auto [facility] Eosinophils (Bld) [#/Vol] 0.36 10*3/uL [facility] Eosinophils/100 WBC (Bld) 9.5 % [facility] Erythrocyte distribution width (RBC) [Ratio] 13.4 % 11.5 - 15.0 % [facility] Hematocrit (Bld) [Volume fraction] 34.3 % Low 36.0 - 46.0 % [facility] Hemoglobin (Bld) [Mass/Vol] 11.6 g/dL 11.5 - 15.5 g/dL [facility] Immature granulocytes (Bld) [#/Vol] [facility] Immature granulocytes/100 WBC (Bld) 0.3 % [facility] Interpretation and review of laboratory results Abnormal [facility] Lymphocytes (Bld) [#/Vol] 0.44 10*3/uL Low [facility] Lymphocytes/100 WBC (Bld) 11.6 % [facility] MCH (RBC) [Entitic mass] 29.5 pg 26.0 - 34.0 pg [facility] MCHC (RBC) [Mass/Vol] 33.8 g/dL 30.5 - 36.0 g/dL [facility] MCV (RBC) [Entitic vol] 87.3 fL 80.0 - 100.0 fL [facility] Monocytes (Bld) [#/Vol] 0.54 10*3/uL [facility] Monocytes/100 WBC (Bld) 14.2 % [facility] Neutrophils (Bld) [#/Vol] 2.39 10*3/uL [facility] Neutrophils/100 WBC (Bld) 62.8 % [facility] Nucleated RBC (Bld) [#/Vol] NINF [facility] Nucleated RBC/100 WBC (Bld) [Ratio] 0.0 % /100 WBC [facility] Platelet mean volume (Bld) [Entitic vol] 8.8 fL Low 9.0 - 12.7 fL [facility] Platelets (Bld) [#/Vol] 244 10*3/uL [facility] RBC (Bld) [#/Vol] 3.93 10*6/uL 3.90 - 5.20 m/uL [facility] WBC (Bld) [#/Vol] 3.80 10*3/uL [facility] Comprehensive metabolic 2000 panelOrdered By: Siri Harris on 12-02-2023 Albumin [Mass/Vol] 4.4 g/dL 3.9 - 4.9 g/dL [facility] ALP [Catalytic activity/Vol] 75 U/L 34 - 123 U/L [facility] ALT [Catalytic activity/Vol] 10 U/L 7 - 38 U/L [facility] Anion gap [Moles/Vol] 11 mmol/L 8 - 15 mmol/L [facility] AST [Catalytic activity/Vol] 18 U/L 13 - 35 U/L [facility] Bilirubin [Mass/Vol] 0.2 mg/dL 0.2 - 1.3 mg/dL [facility] Calcium [Mass/Vol] 9.7 mg/dL 8.5 - 10. 2 mg/dL [facility] Chloride [Moles/Vol] 99 mmol/L 98 - 107 mmol/L [facility] CO2 [Moles/Vol] 25 mmol/L 22 - 30 mmol/L [facility] Creatinine [Mass/Vol] 0.68 mg/dL 0.58 - 0.96 mg/dL [facility] GFR/1.73 sq M.predicted among non-blacks MDRD (S/P/Bld) [Vol rate/Area] 97 mL/min/{1.73_m2} - PINF [facility] Comment on above: Estimated Glomerular Filtration Rate (eGFR) is calculated using the 2020 CKD-EPI creatinine equation. This equation utilizes serum creatinine, sex, and age as parameters. The creatinine assay has traceable calibration to isotope dilution-mass spectrometry. Refer to KDIGO guidelines for clinical interpretation. In patients with unstable renal function, e.g. those with acute kidney injury, the eGFR may not accurately reflect actual GFR. Glucose [Mass/Vol] 84 mg/dL 74 - 99 mg/dL [facility] Comment on above: The Stateless Diabete s Association (ADA) provides guidance for cutoff values for fasting glucose and random glucose. The ADA defines fasting as no caloric intake for at least 8 hours. Fasting plasma glucose results between 100 to 125 mg/dL indicate increased risk for diabetes (prediabetes). Fasting plasma glucose results greater than or equal to 126 mg/dL meet the criteria for diagnosis of diabetes. In the absence of unequivocal hyperglycemia, results should be confirmed by repeat testing. In a patient with classic symptoms of hyperglycemia or hyperglycemic crisis, random plasma glucose results greater than or equal to 200 mg/dL meet the criteria for diagnosis of diabetes. Reference: Standards of Medical Care in Diabetes 2016, Stateless Diabetes Association. Diabetes Care. 2016.39(Suppl 1). Interpretation and review of laboratory results Abnormal [facility] Potassium [Moles/Vol] 4.0 mmol/L 3.7 - 5.1 mmol/L [facility] Protein [Mass/Vol] 6.6 g/dL 6.3 - 8.0 g/dL [facility] Sodium [Moles/Vol] 135 mmol/L Low 136 - 144 mmol/L [facility] Urea nitrogen [Mass/Vol] 19 mg/dL 7 - 21 mg/dL [facility] CBC W Auto Differential pane l (Bld)on 10-22-2023 Basophils (Bld) [#/Vol] 0.05 10*3/uL [facility] Basophils/100 WBC (Bld) 1.3 % [facility] Differential cell count method Nom (Bld) Auto [facility] Eosinophils (Bld) [#/Vol] 0.24 10*3/uL [facility] Eosinophils/100 WBC (Bld) 6.2 % [facility] Erythrocyte distribution width (RBC) [Ratio] 12.3 % 11.5 - 15.0 % [facility] Hematocrit (Bld) [Volume fraction] 35.2 % Low 36.0 - 46.0 % [facility] Hemoglobin (Bld) [Mass/Vol] 11.9 g/dL 11.5 - 15.5 g/dL [facility] Immature granulocytes (Bld) [#/Vol] NINF [facility] Immature granulocytes/100 WBC (Bld) 0.3 % [facility] Interpretation and review of laboratory results Abnormal [facility] Lymphocytes (Bld) [#/Vol] 1.01 10*3/uL [facility] Lymphocytes/100 WBC (Bld) 26.0 % [facility] MCH (RBC) [Entitic mass] 29.8 pg 26.0 - 34.0 pg [facility] MCHC (RBC) [Mass/Vol] 33.8 g/dL 30.5 - 36.0 g/dL [facility] MCV (RBC) [Entitic vol] 88.0 fL 80.0 - 100.0 fL [facility] Monocytes (Bld) [#/Vol] 0.41 10*3/uL NINF [facility] Monocytes/100 WBC (Bld) 10.5 % [facility] Neutrophils (Bld) [#/Vol] 2.17 10*3/uL [facility] Neutrophils/100 WBC (Bld) 55.7 % [facility] Nucleated RBC (Bld) [#/Vol] NINF [facility] Nucleated RBC/100 WBC (Bld) [Ratio] 0.0 % /100 WBC [facility] Platelet mean volume (Bld) [Entitic vol] 8.5 fL Low 9.0 - 12.7 fL [facility] Platelets (Bld) [#/Vol] 267 10*3/uL [facility] RBC (Bld) [#/Vol] 4.00 10*6/uL 3.90 - 5.20 m/uL [facility] WBC (Bld) [#/Vol] 3.89 10*3/uL [facility] Comprehensive metabolic 2000 panelOrdered By: Siri Harris on 10-22-2023 Albumin [Mass/Vol] 4.3 g/dL 3.9 - 4.9 g/dL [facility] ALP [Catalytic activity/Vol] 90 U/L 34 - 123 U/L [facility] ALT [Catalytic activity/Vol] 10 U/L 7 - 38 U/L [facility] Anion gap [Moles/Vol] 11 mmol/L 8 - 15 mmol/L [facility] AST [Catalytic activity/Vol] 16 U/L 13 - 35 U/L [facility] Bilirubin [Mass/Vol] 0.3 mg/dL 0.2 - 1.3 mg/dL [facility] Calcium [Mass/Vol] 9.6 mg/dL 8.5 - 10. 2 mg/dL [facility] Chloride [Moles/Vol] 97 mmol/L Low 98 - 107 mmol/L [facility] CO2 [Moles/Vol] 27 mmol/L 22 - 30 mmol/L [facility] Creatinine [Mass/Vol] 0.71 mg/dL 0.58 - 0.96 mg/dL [facility] GFR/1.73 sq M.predicted among non-blacks MDRD (S/P/Bld) [Vol rate/Area] 95 mL/min/{1.73_m2} - PINF [facility] Comment on above: Estimated Glomerular Filtration Rate (eGFR) is calculated using the 2020 CKD-EPI creatinine equation. This equation utilizes serum creatinine, sex, and age as parameters. The creatinine assay has traceable calibration to isotope dilution-mass spectrometry. Refer to KDIGO guidelines for clinical interpretation. In patients with unstable renal function, e.g. those with acute kidney injury, the eGFR may not accurately reflect actual GFR. Glucose [Mass/Vol] 111 mg/dL High 74 - 99 mg/dL [facility] Comment on above: The Stateless Diabete s Association (ADA) provides guidance for cutoff values for fasting glucose and random glucose. The ADA defines fasting as no caloric intake for at least 8 hours. Fasting plasma glucose results between 100 to 125 mg/dL indicate increased risk for diabetes (prediabetes). Fasting plasma glucose results greater than or equal to 126 mg/dL meet the criteria for diagnosis of diabetes. In the absence of unequivocal hyperglycemia, results should be confirmed by repeat testing. In a patient with classic symptoms of hyperglycemia or hyperglycemic crisis, random plasma glucose results greater than or equal to 200 mg/dL meet the criteria for diagnosis of diabetes. Reference: Standards of Medical Care in Diabetes 2016, Stateless Diabetes Association. Diabetes Care. 2016.39(Suppl 1). Interpretation and review of laboratory results Abnormal [facility] Potassium [Moles/Vol] 4.0 mmol/L 3.7 - 5.1 mmol/L [facility] Protein [Mass/Vol] 6.6 g/dL 6.3 - 8.0 g/dL [facility] Sodium [Moles/Vol] 135 mmol/L Low 136 - 144 mmol/L [facility] Urea nitrogen [Mass/Vol] 16 mg/dL 7 - 21 mg/dL [facility] Final Surgical Pathology Rep gretchen 10-04-2023 Final Surgical Pathology Report . Pathology Reports Accession: Collected Date/Time: Received Date/Time: Pathologist: [id number] 10/02/2023 11:56 EDT 10/02/2023 12:48 EDT MD MARY TOWNSEND Final Surgical Pathology Report DIAGNOSIS: A. LEFT SENTINEL LYMPH NODE, BIOPSY: - 1 LYMPH NODE WITH PROMINENT FIBROSIS - NEGATIVE FOR CARCINOMA Comment: Stain for cytokeratin AE1/3 is negative. B. LEFT SENTINEL LYMPH NODE, BIOPSY: - 1 LYMPH NODE WITH PROMINENT FIBROSIS - NEGATIVE FOR CARCINOMA Comment: Stain for cytokeratin AE1/3 is negative. C. LEFT SENTINEL LYMPH NODE, BIOPSY: - 1 LYMPH NODE WITH PROMINENT FIBROSIS - NEGATIVE FOR CARCINOMA Comment: Stain for cytokeratin AE1/3 is negative. D. LEFT SENTINEL LYMPH NODE, BIOPSY: - 1 LYMPH NODE WITH PROMINENT FIBROSIS - NEGATIVE FOR CARCINOMA Comment: Stain for cytokeratin AE1/3 is negative. E. LEFT SENTINEL LYMPH NODE, BIOPSY: - 1 LYMPH NODE NEGATIVE FOR CARCINOMA Comment: Stain for cytokeratin AE1/3 is negative. F. LEFT BREAST REFLECTOR LOCALIZED LUMPECTOMY: - FOCAL FIBROSIS AND MILD CHRONIC INFLAMMATION, FOCI OF HEMOSIDERIN LADEN HISTIOCYTES AND BACKGROUND MILD FIBROCYSTIC CHANGES - NEGATIVE FOR RESIDUAL CARCINOMA G. BREAST, LEFT, ADDITIONAL DEEP MARGIN, EXCISION: - NEGATIVE FOR CARCINOMA H. BREAST, LEFT, ADDITIONAL INFERIOR MARGIN, EXCISION: - NEGATIVE FOR CARCINOMA I. BREAST, LEFT, ADDITIONAL SUPERIOR MARGIN, EXCISION: - NEGATIVE FOR CARCINOMA J. BREAST, LEFT, ADDITIONAL MEDIAL MARGIN, EXCISION: - NEGATIVE FOR CARCINOMA K. BREAST, LEFT, ADDITIONAL ANTERIOR MARGIN, EXCISION: - NEGATIVE FOR CARCINOMA L. BREAST, LEFT, ADDITIONAL LATERAL MARGIN, EXCISION: - NEGATIVE FOR CARCINOMA INVASIVE CARCINOMA OF THE BREAST: Resection SPECIMEN Pathology Reports Accession: Collected Date/Time: Received Date/Time: Pathologist: [id number] 10/02/2023 11:56 EDT 10/02/2023 12:48 JELANIT MD MARY TOWNSEND DIAGNOSIS: PROCEDURE: Excision (less than total mastectomy) SPECIMEN LATERALITY: Left TUMOR HISTOLOGIC TYPE: No residual invasive carcinoma HISTOLOGIC GRADE (GUNJAN HISTOLOGIC SCORE): Not applicable (no residual carcinoma or microinvasion only) TUMOR SIZE: No residual invasive carcinoma DUCTAL CARCINOMA IN SITU (DCIS): Not identified Tumor Extent TUMOR EXTENT: Not applicable LYMPHATIC AND / OR VASCULAR INVASION: Not identified TREATMENT EFFECT IN THE BREAST: No residual invasive carcinoma is present in the breast after presurgical therapy TREATMENT EFFECT IN THE LYMPH NODES: No lymph node metastases. Fibrous scarring or histiocytic aggregates, possibly related to prior lymph node metastases with pathologic complete response RESIDUAL CANCER BURDEN (RCB) CALCULATION: Not reported MARGINS MARGIN STATUS FOR INVASIVE CARCINOMA: Not applicable (residual invasive carcinoma in specimen is absent) MARGIN STATUS FOR DCIS: Not applicable (no DCIS in specimen) REGIONAL LYMPH NODES REGIONAL LYMPH NODE STATUS: All regional lymph nodes negative for tumor TOTAL NUMBER OF LYMPH NODES EXAMINED (SENTINEL AND NON-SENTINEL): 5 NUMBER OF SENTINEL NODES EXAMINED: 5 DISTANT METASTASIS DISTANT SITE(S) INVOLVED: Not applicable pTNM CLASSIFICATION (AJCC 8th Edition) Reporting of pT, pN, and (when applicable) pM categories is based on information available to the pathologist at the time the report is issued. As per the AJCC (Chapter 1, 8th Ed.) it is the managing physician's responsibility to establish the final pathologic stage based upon all pertinent information, including but potentially not limited to this pathology report. MODIFIED CLASSIFICATION: y PT CATEGORY: pT0 T SUFFIX: Not applicable PN CATEGORY: pN0 N SUFFIX: (sn) PM CATEGORY: Not applicable - pM cannot be determined from the submitted specimen(s) CLINICAL INFORMATION: Preoperative diagnosis: LEFT BREAST CANCER Postoperative diagnosis: LEFT BREAST CANCER SPECIMEN: A LEFT SENTINEL NODE #1 - FROZEN SECTION B LEFT SENTINEL NODE #2 - FROZEN SECTION C LEFT SENTINEL NODE #3 - FROZEN SECTION D LEFT SENTINEL NODE #4 - FROZEN SECTION E LEFT SENTINEL NODE #5 - FROZEN SECTION F LEFT BREAST REFLECTOR LOCALIZED LUMPECTOMY, LONG LATERAL/SHORT SUPERIOR. G ADDITIONAL DEEP MARGIN, INK ON NEW MARGIN SIDE. H ADDITIONAL INFERIOR MARGIN, INK ON NEW MARGIN SIDE. I ADDITIONAL SUPERIOR MARGIN, INK ON NEW MARGIN SIDE. J ADDITIONAL MEDIAL MARGIN, INK ON NEW MARGIN SIDE. K ADDITIONAL ANTERIOR MARGIN, INK ON NEW MARGIN SIDE. L ADDITIONAL LATERAL MARGIN, INK ON NEW MARGIN SIDE. INTRAOPERATIVE CONSULTATION: A FS: NEGATIVE. Pathology Reports Accession: Collected Date/Time: Received Date/Time: Pathologist: [id number] 10/02/2023 11:56 EDT 10/02/2023 12:48 EDT MD MARY TOWNSEND INTRAOPERATIVE CONSULTATION: B FS: NEGATIVE. C FS: NEGATIVE. D FS: NEGATIVE. E FS: NEGATIVE. COMMENTS: NEOADJUVANT. performed by Laith Townsend M.D. GROSS DESCRIPTION: All parts labelled with patient name and [id number] (more content not included)... Normal [facility]) Consultation Reporton 2023 Consultation Report . Pathology Reports Accession: Collected Date/Time: Received Date/Time: Pathologist: [id number] 10/02/2023 15:31 EDT 10/02/2023 15:31 EDT MARTHA SALTER MD Consultation Report DIAGNOSIS: LEFT AXILLARY MASS, BIOPSY: - OUTSIDE SLIDES ON PATIENT CARRIE HERBERT, 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 SUPPLIED ER, VA AND HER2/PATRICIA SLIDES ARE ALL NEGATIVE (TRIPLE NEGATIVE). I AM IN AGREEMENT WITH THE REFERRING PATHOLOGIST CLINICAL INFORMATION: . Preoperative diagnosis: _ Postoperative diagnosis: _ SPECIMEN: LEFT AXILLA MASS BIOPSY GROSS DESCRIPTION: RECEIVED FROM [facility] ARE 18 GLASS SLIDES LABELED PIEDAD CARRIE BrandeeAlfie [id number]. Performed by MARTHA SALTER MICROSCOPIC DESCRIPTION: SLIDES REVIEWED. Electronically Signed by Pathology Report verified by [facility] MARTHA SALTER Sign out Date: 10/03/2023 15:45 Performing Lab: [address] Pathology Dept Disclaimer If ancillary studies were utilized, the following Laboratory Developed Test (LDT) disclaimer will apply: Under CLIA requirements, [facility] is qualified to perform high complexity testing. For all ancillary stains, positive and negative controls stain appropriately. Performance characteristics of immunohistochemical and chromogenic in-situ hybridization tests have been determined by [facility]. These tests are used for clinical purposes, They should not be regarded as investigational or for research. Normal [facility] ([place] MA BIOPSY ORon 10-03-2023 MA BIOPSY OR ORIGINAL FROM: [place] [address] PROCEDURE FOR: CARRIE HERBERT [address] [place] [address] Home: PID#: [id number] Exam#: [id number] : 1960 Age: 63 TO: DEBBIE MERINO MD [address], [place] [address] Fax: NO FAX EXAMINATION: SPECIMEN RADIOGRAPH 10/03/2023 12:42 pm COMPARISON: September 23, 2023, July 17, 2023, April 24, 2023 HISTORY: Surgical specimen radiograph. FINDINGS: A surgical specimen was imaged using uni-planar radiograph specimen imaging for the area of concern located in the left axilla. This was described on prior exams. The specimen includes calcifications, mass, biopsy clip, and a GRISEL nursing coordinator radar reflector. Please note that the mammograms available of the left breast do not include the left axilla, limiting evaluation.. IMPRESSION: Specimen radiograph as above. Please see surgical notes and pathology results for more detail. Findings were called to the operating room at the time of acquisition. Please note that the mammograms available of the left breast do not include the left axilla, limiting evaluation.. Please also note that a specimen was also obtained of the left breast, which will be reported separately. BIRADS: RECALL: no message RECALL TYPE: unspecified LETTER SENT: No Letter Interpreted by: Cristina Patel Preliminary Report By: Cristina Patel Electronically signed By Cristina Patel Dictated Date: 10/03/2023 3:58:38 PM Prelim Date: 10/03/2023 4:00:39 PM Sign Date: 10/03/2023 4:00:39 PM Ordering Provider: DEBBIE MERINO CLINICAL: POST BIOPSY SPECIMEN OF THE AXILLA. Mill Crane Operator: MARVA Oconnell [facility] [place] BI[place]SY [place] ORIGINAL FROM: [facility] [address] [place] [address] PROCEDURE FOR: CARRIE HERBERT [address] [place] [address] Home: PID#: [id number] Exam#: [id number] : 1960 Age: 63 TO: DEBBIE MERINO MD [address] [place] [address] Fax: NO FAX EXAMINATION: SPECIMEN RADIOGRAPH 10/02/2023 11:31 am COMPARISON: September 23, 2023, July 17, 2023, April 24, 2023 HISTORY: Surgical specimen radiograph. FINDINGS: A surgical specimen was imaged using uni-planar radiograph specimen imaging for the area of concern located in the left breast. This was described on prior exams. The specimen includes the mass in the left breast at 2 o'clock posterior depth, the biopsy clip, and the GRISEL nursing coordinator radar reflector. IMPRESSION: Specimen radiograph as above. Please see surgical notes and pathology results for more detail. Findings were called to the operating room at the time of acquisition. Please note that a specimen radiograph was also obtained of the left axilla, and will be reported separately. BIRADS: RECALL: no message RECALL TYPE: unspecified LETTER SENT: No Letter Interpreted by: Cristina Patel Preliminary Report By: Cristina Patel Electronically signed By Cristina Patel Dictated Date: 10/03/2023 3:57:33 PM Prelim Date: 10/03/2023 3:58:30 PM Sign Date: 10/03/2023 3:58:30 PM Ordering Provider: DEBBIE MERINO CLINICAL: POST BIOPSY SPECIMEN OF THE BREAST. Mill Crane Operator: MARVA Oconnell [facility] [place] INJECTION SENTINEL NODEon 10-02-2023 NM INJECTION SENTINEL NODE ORIGINAL EXAMINATION: SENTINEL NODE 10/02/2023 8:40 am TECHNIQUE: 569 and 591 microcuries of Tc99 Lymphoseek was provided to DEBBIE MERINO for sentinel lymph node localization and injected in the left breast at 8:15 a.m. by Brandon Carmichael Patient was then taken to the OR for probe guided lymph node localization. HISTORY: [place] node localization for surgery. Breast cancer left upper outer quadrant. IMPRESSION: No images were acquired. Lymph nodes localized with probe in the OR. I have personally reviewed the images of this examination and agree with the resident's finding and interpretation. Interpreted by: Shirlene Mirza Preliminary Report By: Ashish Cunha Electronically signed By Shirlene Mirza Dictated Date: 10/02/2023 8:46:22 AM Prelim Date: 10/02/2023 8:54:44 AM Sign Date: 10/02/2023 8:54:44 AM Ordering Provider: DEBBIE Oconnell [facility] [place] .Auto Diffon 09-23-2023 Basophil, Absolute 0.0 10 3/mcL Normal 0.0-0.3 [facility] ([place]) Comment on above: Performed By: #### G FR, ANEU, CBC, ADIFF, BMP #### [address] [address] Basophils/100 WBC (Bld) 1.2 % Normal 0.0-2.5 [facility] [place] Comment on above: Performed By: #### G FR, ANEU, CBC, ADIFF, BMP #### [address] [address] Eosinophil, Absolute 0.2 10 3/mcL Normal 0.0-0.7 [facility] [place] Comment on above: Performed By: #### G FR, ANEU, CBC, ADIFF, BMP #### [address] [address] Eosinophils/100 WBC (Bld) 5.4 % Normal 0.0-6.0 [facility] [place] Comment on above: Performed By: #### G FR, ANEU, CBC, ADIFF, BMP #### [address] [address] Lymphocyte, Absolute 1.1 10 3/mcL Normal 0.9-4.3 [facility] [place] Comment on above: Performed By: #### G FR, ANEU, CBC, ADIFF, BMP #### [address] [address] Lymphocytes/100 WBC (Bld) 26.0 % Normal 20.0-40.0 [facility] [place] Comment on above: Performed By: #### G FR, ANEU, CBC, ADIFF, BMP #### [address] [address] Monocyte, Absolute 0.4 10 3/mcL Normal 0.1-1.4 [facility] ([place] Comment on above: Performed By: #### G FR, ANEU, CBC, ADIFF, BMP #### [address] [address] Monocytes/100 WBC (Bld) 9.9 % Normal 2.0-13.0 [facility] ([place] Comment on above: Performed By: #### G FR, ANEU, CBC, ADIFF, BMP #### [address] [id number] Neutrophils/100 WBC (Bld) 57.5 % Normal 50.0-75.0 [facility] ([place] Comment on above: Performed By: #### G FR, ANEU, CBC, ADIFF, BMP #### [address] [address] .GFRon 09-23-2023 GFR >60 Normal [facility] ([place] Comment on above: Result Comment: GFR Population mean for , Non- Americans Ages 20-29 = 116 mL/min/1.73 sq.m. Ages 30-39 = 107 mL/min/1.73 sq.m. Ages 40-49 = 99 mL/min/1.73 sq.m. Ages 50-59 = 93 mL/min/1.73 sq.m. Ages 60-69 = 85 mL/min/1.73 sq.m. Ages 70+ = 75 mL/min/1.73 sq.m. Chronic Kidney Disease: Less than 60 mL/min/1.73 square meters End Stage Renal Disease: Less than 15 mL/min/1.73 square meters Performed By: #### G FR, ANEU, CBC, ADIFF, BMP ####[address] [address] GFR Non- >60 Normal [facility] ([place] Comment on above: Result Comment: GFR Population mean for , Non- Americans Ages 20-29 = 116 mL/min/1.73 sq.m. Ages 30-39 = 107 mL/min/1.73 sq.m. Ages 40-49 = 99 mL/min/1.73 sq.m. Ages 50-59 = 93 mL/min/1.73 sq.m. Ages 60-69 = 85 mL/min/1.73 sq.m. Ages 70+ = 75 mL/min/1.73 sq.m. Chronic Kidney Disease: Less than 60 mL/min/1.73 square meters End Stage Renal Disease: Less than 15 mL/min/1.73 square meters Performed By: #### G FR, ANEU, CBC, ADIFF, BMP ####[place] [address] .NEUABSon 09-23-2023 Neutrophil, Absolute 2.3 10 3/mcL Normal 2.3-8.1 [facility] ([place] Comment on above: Performed By: #### G FR, ANEU, CBC, ADIFF, BMP ####[place] [address] BMPon 09-23-2023 BUN/Creatinine Ratio 21.7 ratio Normal 10.0-22.0 [facility] ([place] Comment on above: Performed By: #### G FR, ANEU, CBC, ADIFF, BMP ####[place] [address] Calcium [Mass/Vol] 9.6 mg/dL Normal 8.7-10.4 [facility] ([place]) Comment on above: Performed By: #### Zurdo FR, ANEU, CBC, ADIFF, BMP ####[place] [address] Chloride [Moles/Vol] 105 mmol/L Normal 98-110 [facility] ([place] Comment on above: Performed By: #### G FR, ANEU, CBC, ADIFF, BMP ####[place] [address] CO2 [Moles/Vol] 31 mmol/L Normal 22-32 [facility] ([place] Comment on above: Performed By: #### G FR, ANEU, CBC, ADIFF, BMP ####[place] [address] Creatinine [Mass/Vol] 0.60 mg/dL Normal 0.50-1.20 [facility] ([place] Comment on above: Performed By: #### G FR, ANEU, CBC, ADIFF, BMP ####[place] [address] Electrolyte Balance 4.0 mEq/L Normal 4.0-15.0 [facility] ([place]) Comment on above: Performed By: #### G FR, ANEU, CBC, ADIFF, BMP ####[place] [address] Glucose [Mass/Vol] 101 mg/dL Normal 82-115 [facility] ([place]) Comment on above: Performed By: #### G FR, ANEU, CBC, ADIFF, BMP ####[place] [address] Potassium [Moles/Vol] 4.2 mmol/L Normal 3.5-5.0 [facility] ([place] Comment on above: Performed By: #### Zurdo FR, ANEU, CBC, ADIFF, BMP ####[place] [address] Sodium [Moles/Vol] 140 mmol/L Normal 136-145 [facility] ([place] Comment on above: Performed By: #### Zurdo FR, ANEU, CBC, ADIFF, BMP ####[place] [address] Urea nitrogen [Mass/Vol] 13.0 mg/dL Normal 8.0-22.0 [facility] ([place] Comment on above: Performed By: #### G FR, ANEU, CBC, ADIFF, BMP ####[place] [address] CBCon 09-23-2023 Erythrocyte distribution width (RBC) [Ratio] 13.9 % Normal 11.5-15.5 [facility] ([place] Comment on above: Performed By: #### G FR, ANEU, CBC, ADIFF, BMP #### [place] [address] Hematocrit (Bld) [Volume fraction] 36.7 % Normal 34.0-46.0 [facility] [place] Comment on above: Performed By: #### G FR, ANEU, CBC, ADIFF, BMP #### [place] [address] Hgb 12.6 G/dL Normal 12.0-16.0 [facility] [place] Comment on above: Performed By: #### G FR, ANEU, CBC, ADIFF, BMP #### [place] [address] MCH (RBC) [Entitic mass] 31.2 pg Normal 27.0-33.0 [facility] [place] Comment on above: Performed By: #### G FR, ANEU, CBC, ADIFF, BMP #### [place] [address] MCHC 34.4 G/dL Normal 32.0-36.0 [facility] [place] Comment on above: Performed By: #### G FR, ANEU, CBC, ADIFF, BMP #### [place] [address] MCV (RBC) [Entitic vol] 90.6 fL Normal 80.0-99.0 [facility] ([place] Comment on above: Performed By: #### Zurdo FR, ANEU, CBC, ADIFF, BMP #### [place] [address] Platelet 287 10 3/mcL Normal 150-450 [facility] [place] Comment on above: Performed By: #### Zurdo FR, ANEU, CBC, ADIFF, BMP #### [place] [address] Platelet mean volume (Bld) [Entitic vol] 6.8 fL Normal 6.6-10.5 [facility] [place] Comment on above: Performed By: #### G FR, ANEU, CBC, ADIFF, BMP #### [place] [address] RBC 4.05 10 6/mcL Low 4.10-5.30 [facility] [place] Comment on above: Performed By: #### G FR, ANEU, CBC, ADIFF, BMP #### [place] [address] WBC 4.0 10 3/mcL Low 4.5-10.8 [facility] ([place] Comment on above: Performed By: #### G FR, ANEU, CBC, ADIFF, BMP #### [facility] [address] [place] [address] LABORATORYOrdered By: SYSTEM SYSTEM on 09-23-2023 Basophils (Bld) [#/Vol] 0.0 103/mcL Normal 0.0 - 0.3 10^3/mcL AH Workflow SS Basophils/100 WBC (Bld) 1.2 % Normal 0.0 - 2.5 % AH Workflow SS Calcium [Mass/Vol] 9.6 mg/dL Normal 8.7 - 10. 4 mg/dL ADM SS Chloride [Moles/Vol] 105 mmol/L Normal 98 - 110 mEq/L ADM SS CO2 [Moles/Vol] 31 mmol/L Normal 22 - 32 mEq/L ADM SS Creatinine [Mass/Vol] 0.60 mg/dL Normal 0.50 - 1.20 mg/dL ADM SS Electrolyte Balance 4.0 mEq/L Normal 4.0 - 15 .0 mEq/L ADM SS Eosinophils (Bld) [#/Vol] 0.2 103/mcL Normal 0.0 - 0.7 10^3/mcL AH Workflow SS Eosinophils/100 WBC (Bld) 5.4 % Normal 0.0 - 6.0 % AH Workflow SS Erythrocyte distribution width (RBC) [Ratio] 13.9 % Normal 11.5 - 15.5 % AH Workflow SS GFR/1.73 sq M.predicted among blacks MDRD (S/P/Bld) [Vol rate/Area] ml/min/1.73sqm Invalid Interpretation Code Chemistry S Comment on above: Interpretive Data: GFR Population mean for , Non- Americans Ages 20-29 = 116 mL/min/1.73 sq.m. Ages 30-39 = 107 mL/min/1.73 sq.m. Ages 40-49 = 99 mL/min/1.73 sq.m. Ages 50-59 = 93 mL/min/1.73 sq.m. Ages 60-69 = 85 mL/min/1.73 sq.m. Ages 70+ = 75 mL/min/1.73 sq.m. Chronic Kidney Disease: Less than 60 mL/min/1.73 square meters End Stage Renal Disease: Less than 15 mL/min/1.73 square meters GFR/1.73 sq M.predicted among non-blacks MDRD (S/P/Bld) [Vol rate/Area] ml/min/1.73sqm Invalid Interpretation Code Chemistry S Comment on above: Interpretive Data: GFR Population mean for , Non- Americans Ages 20-29 = 116 mL/min/1.73 sq.m. Ages 30-39 = 107 mL/min/1.73 sq.m. Ages 40-49 = 99 mL/min/1.73 sq.m. Ages 50-59 = 93 mL/min/1.73 sq.m. Ages 60-69 = 85 mL/min/1.73 sq.m. Ages 70+ = 75 mL/min/1.73 sq.m. Chronic Kidney Disease: Less than 60 mL/min/1.73 square meters End Stage Renal Disease: Less than 15 mL/min/1.73 square meters Glucose [Mass/Vol] 101 mg/dL Normal 82 - 115 mg/dL ADM SS Hematocrit (Bld) [Volume fraction] 36.7 % Normal 34.0 - 46.0 % Workflow SS Hemoglobin (Bld) [Mass/Vol] 12.6 G/dL Normal 12.0 - 16.0 G/dL AH Workflow SS Lymphocytes (Bld) [#/Vol] 1.1 103/mcL Normal 0.9 - 4.3 10^3/mcL Workflow SS Lymphocytes/100 WBC (Bld) 26.0 % Normal 20.0 - 40.0 % AH Workflow SS MCH (RBC) [Entitic mass] 31.2 pg Normal 27.0 - 33.0 pg AH Workflow SS MCHC 34.4 G/dL Normal 32.0 - 36.0 G/dL AH Workflow SS MCV (RBC) [Entitic vol] 90.6 fL Normal 80.0 - 99.0 fL AH Workflow SS Monocytes (Bld) [#/Vol] 0.4 103/mcL Normal 0.1 - 1.4 10^3/mcL AH Workflow SS Monocytes/100 WBC (Bld) 9.9 % Normal 2.0 - 13.0 % AH Workflow SS Neutrophils (Bld) [#/Vol] 2.3 103/mcL Normal 2.3 - 8.1 10^3/mcL AH Workflow SS Neutrophils/100 WBC (Bld) 57.5 % Normal 50.0 - 75.0 % AH Workflow SS Platelet mean volume (Bld) [Entitic vol] 6.8 fL Normal 6.6 - 10.5 fL AH Workflow SS Platelets (Bld) [#/Vol] 287 103/mcL Normal 150 - 450 10^3/mcL AH Workflow SS Potassium [Moles/Vol] 4.2 mmol/L Normal 3.5 - 5.0 mEq/L AH ADM SS RBC (Bld) [#/Vol] 4.05 106/mcL Low 4.10 - 5.30 10^6/mcL AH Workflow SS Sodium [Moles/Vol] 140 mmol/L Normal 136 - 145 mEq/L AH ADM SS Urea nitrogen [Mass/Vol] 13.0 mg/dL Normal 8.0 - 22.0 mg/dL AH ADM SS Urea nitrogen/Creatinine [Mass ratio] 21.7 ratio Normal 10.0 - 22.0 ratio AH ADM SS WBC (Bld) [#/Vol] 4.0 103/mcL Low 4.5 - 10.8 10^3/mcL AH Workflow SS MA BREAST NDL LOC PLACEMENT LEFT 1ST LESIONon 09-23-2023 MA BREAST NDL LOC PLACEMENT LEFT 1ST LESION ORIGINAL FROM: [place] [address] PROCEDURE FOR: CARRIE HERBERT [facility] [address] Home: PID#: [id number] Exam#: [id number] : 1960 Age: 63 TO: DEBBIE MERINO MD [address] [place] [address] Fax: NO FAX EXAMINATION: MAMMOGRAPHIC GUIDED INFRARED ACTIVATED RADAR REFLECTOR DEVICE PLACEMENT BREAST WITH POST DIGITAL MAMMOGRAM IMAGING 09/23/2023 7:32 am COMPARISON: Prior mammography dated 04/24/2023. Prior breast MRI dated 07/17/2023. HISTORY: ORDERING SYSTEM PROVIDED HISTORY: Reason for Exam: GRISEL LEFT BREAST FINDINGS: A timeout was performed to confirm patient identification and site of procedure. Risks, benefits, and alternatives of the procedure were discussed. Informed written consent was obtained. An infrared activated radar reflector device placement using digital mammography guidance was performed for the marker clip located in the left breast at 1-2 o'clock position mid to anterior depth. This was described on the previous mammography report. The skin was prepped in the usual manner. Local anesthetic was administered to the access site. The localization was approached from the lateral aspect. A location device was inserted into the targeted area under digital mammography guidance. Post placement digital mammographic imaging demonstrates location device adjacent to the targeted area. The reflector was emitting signal post placement. STATUS: Successful IMPRESSION: Infrared activated radar reflector device placement was successful with no apparent post procedure complications. A specimen radiograph is recommended. BIRADS: RECALL: no message RECALL TYPE: unspecified LETTER SENT: No Letter Interpreted by: Arnie Henson MD Preliminary Report By: Arnie Henson MD Electronically signed By Arnie Henson MD Dictated Date: 09/23/2023 1:18:07 PM Prelim Date: 09/23/2023 1:20:55 PM Sign Date: 09/23/2023 1:20:55 PM Ordering Provider: DEBBIE MERINO Mill Cr[employer] Operator: SHERRON HARRIS RT(R)(M) Normal [facility] ([place]) US BREAST NDL LOC LEFT 1ST L ESIONon 09-23-2023 BREAST NDL LOC LEFT 1ST LESION ORIGINAL FROM: [address] [address] PROCEDURE FOR: CARRIE HERBERT [address] [place] [address] Home: PID#: [id number] Exam#: [id number] : 1960 Age: 63 TO: DEBBIE MERINO MD [address] [place] [address] Fax: NO FAX EXAMINATION: ULTRASOUND GUIDED INFRARED ACTIVATED RADAR REFLECTOR DEVICE PLACEMENT AXILLA WITH POST ULTRASOUND IMAGING 09/23/2023 7:32 am COMPARISON: Prior ultrasound dated 04/24/2023. Prior MRI of the breast dated 07/17/2023. HISTORY: ORDERING SYSTEM PROVIDED HISTORY: Reason for Exam: GRISEL LEFT BREAST FINDINGS: A timeout was performed to confirm patient identification and site of procedure. Risks, benefits, and alternatives of the procedure were discussed. Informed written consent was obtained. An infrared activated radar reflector device placement using ultrasound guidance was performed for the lymph node located in the left axilla. This was described on the previous ultrasound report. The skin was prepped in the usual manner. Local anesthetic was administered to the access site. A location device was inserted into the targeted area under ultrasound guidance. Post placement ultrasound imaging demonstrates the location device in the center of the targeted area. The reflector was emitting signal post placement. STATUS: Successful IMPRESSION: Infrared activated radar reflector device placement was successful with no apparent post procedure complications. A specimen radiograph is recommended. BIRADS: RECALL: no message RECALL TYPE: unspecified LETTER SENT: No Letter Interpreted by: Arnie Henson MD Preliminary Report By: Arnie Henson MD Electronically signed By Arnie Henson MD Dictated Date: 09/23/2023 2:36:03 PM Prelim Date: 09/23/2023 2:38:48 PM Sign Date: 09/23/2023 2:38:48 PM Ordering Provider: DEBBIE MERINO CLINICAL: LEFT AXILLA RADRAR REFLECTOR PLACED. Mill Crane Operator: DEMI CALDWELL RT,MS [facility] ([place] US BREAST RIGHT LIMITEDon US BREAST RIGHT LIMITED ORIGINAL FROM: [address] [address] PROCEDURE FOR: CARRIE HERBERT [facility] [address] Home: PID#: [id number] Exam#: [id number] : 1960 Age: 63 TO: DEBBIE MERINO MD [address] [place] [phone] Fax: NO FAX EXAMINATION: ULTRASOUND OF THE RIGHT BREAST 09/23/2023 7:33 am TECHNIQUE: Color flow and laughlin scale targeted ultrasound of the right breast were performed. Permanently stored images were reviewed. COMPARISON: Prior right breast ultrasound dated 04/24/2023. HISTORY: ORDERING SYSTEM PROVIDED HISTORY: Reason for Exam: f/u prior biopsy FINDINGS: Ultrasonographic evaluation of the right breast at the 12 o'clock/1 o'clock position 4 cm from the nipple redemonstrates a 2.0 x 0.7 x 2.1 cm heterogenous area of soft tissue with adjacent biopsy clip noted. This lesion is wider than tall with ill-defined borders and without vascularity. Prior surgical pathology demonstrated inflamed fibroadipose tissue with hemorrhage, stromal fibro elastosis, and fat necrosis. The lesion is overall similar in appearance however is slightly increased in size previously measuring 1.6 by 1.2 x 1.4 cm. IMPRESSION: Slight increase in size of the heterogenous right breast lesion described upper of previously demonstrated to be inflamed fibroadipose tissue with stromal fibro elastosis and fat necrosis. Overall appearance is concordant with the prior biopsy results. Given increase in size consider six-month follow-up ultrasound to demonstrate stability. BIRADS: BI-RADS: 3: Probably Benign RECALL: 6 month follow-up RECALL TYPE: US LETTER SENT: Probably Benign BI-RADS 3 Interpreted by: Arnie Henson MD Preliminary Report By: Arnie Henson MD Electronically signed By Arnie Henson MD Dictated Date: 09/23/2023 2:39:05 PM Prelim Date: 09/23/2023 2:57:06 PM Sign Date: 09/23/2023 2:57:06 PM Ordering Provider: DEBBIE MERINO CLINICAL: 6 MONTHS FOLLOW-UP 1:00 PREVIOUS BIOPSY. Mill Crane Operator: DEMI CALDWELL RT,[facility] letter sent: Probably Benign BI-RADS 3 Ultrasound BI-RADS: 3 Probably benign Normal [facility] ([place]) Prema 09-05-2023 CNPN Telephone (InMobiSF) CARRIE HERBERT ([id number]) 1960 F Date Time Provider Department 09/05/23 KEILA CHRISTINASF During your visit today, we recorded the following information about you: Keila Christina DO 09/05/2023 11:20 AM Signed Called to follow up regarding scheduling surgery. She spoke with a [facility] financial member last week. Unfortunately her insurance does not cover care at [facility]. She was given the cost for out of pocket surgery. She does not wish to pay this. She was given the contact information for Dr. Debbie Merino who is a breast surgeon at [place]. All questions were answered. Keila Christina DO Breast Surgeon Allergies As of Date: 09/05/2023 Noted Allergy Reaction BACTRIM (SULFAMETHOXAZOLE) 12/03/2013 8 - GI Upset Date Reviewed: 08/30/2023 Reviewed by: Peg Stallings RN - Fully Assessed Reason for Visit: Follow Up [171] Prescriptions as of 09/05/2023 - acetaminophen (TYLENOL) 325 mg tablet Take 650 mg by mouth. - Magnesium Oxide 500 mg cap Take by mouth. PRN - Lactobacillus acidophilus (PROBIOTIC) 10 billion cell cap Take 1 capsule by mouth once daily. - lidocaine-prilocaine (EMLA) 2.5-2.5 % cream Apply 60 minutes prior to accessing port. - cimetidine (TAGAMET ORAL) Take by mouth as needed. - cholecalciferol, vitamin D3, (VITAMIN D3 ORAL) Take 1,000 Units by mouth once daily. - CALCIUM ORAL Take 800 mg by mouth once daily. - amino acids/multivitamin (MULTIVITAMIN-AMINO ACIDS ORAL) Take 1 tablet by mouth once daily. No amino acids - PAXIL 30 MG TAB Take 30 mg by mouth once daily. 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)*04/12/2023 Breast cancer 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 lymph no*04/14/2023 Triple negative breast cancer (HCC) [C50.919] 04/14/2023 History of right breast cancer [Z85.3] 04/14/2023 Abnormal MRI, breast [R92.8] 04/14/2023 H/O bilateral breast implants [Z98.82] 08/25/2023 At risk for lymphedema [Z91.89] 08/25/2023 Encounter Status:Closed by KEILA CHRISTINA on 09/05/23 Normal [facility] CBC W Auto Differential pane l (Bld)on 08-29-2023 Basophils (Bld) [#/Vol] 0.06 10*3/uL [facility] Basophils/100 WBC (Bld) 1.2 % [facility] Differential cell count method Nom (Bld) Auto [facility] Eosinophils (Bld) [#/Vol] 0.32 10*3/uL [facility] Eosinophils/100 WBC (Bld) 6.5 % [facility] Erythrocyte distribution width (RBC) [Ratio] 13.5 % 11.5 - 15.0 % [facility] Hematocrit (Bld) [Volume fraction] 34.2 % Low 36.0 - 46.0 % [facility] Hemoglobin (Bld) [Mass/Vol] 11.6 g/dL 11.5 - 15.5 g/dL [facility] Immature granulocytes (Bld) [#/Vol] [facility] Immature granulocytes/100 WBC (Bld) 0.2 % [facility] Interpretation and review of laboratory results Abnormal [facility] Lymphocytes (Bld) [#/Vol] 1.45 10*3/uL [facility] Lymphocytes/100 WBC (Bld) 29.7 % [facility] MCH (RBC) [Entitic mass] 31.4 pg 26.0 - 34.0 pg [facility] MCHC (RBC) [Mass/Vol] 33.9 g/dL 30.5 - 36.0 g/dL [facility] MCV (RBC) [Entitic vol] 92.4 fL 80.0 - 100.0 fL [facility] Monocytes (Bld) [#/Vol] 0.53 10*3/uL [facility] Monocytes/100 WBC (Bld) 10.8 % [facility] Neutrophils (Bld) [#/Vol] 2.52 10*3/uL [facility] Neutrophils/100 WBC (Bld) 51.6 % [facility] Nucleated RBC (Bld) [#/Vol] [facility] Nucleated RBC/100 WBC (Bld) [Ratio] 0.0 % /100 WBC [facility] Platelet mean volume (Bld) [Entitic vol] 8.8 fL Low 9.0 - 12.7 fL [facility] Platelets (Bld) [#/Vol] 236 10*3/uL [facility] RBC (Bld) [#/Vol] 3.70 10*6/uL Low 3.90 - 5.20 m/uL [facility] WBC (Bld) [#/Vol] 4.89 10*3/uL [facility] CORTISOL BLDon 08-29-2023 Cortisol [Mass/Vol] 7.0 ug/dL 4.8 - 19 .5 ug/dL [facility] Comment on above: Provided reference r claudio is from 6-10 AM sample collection time. Cortisol Reference Range: 6-10 AM = 4.8-19.5 ug/dL, 4-8 PM = 2.5-11.9 ug/dL Comprehensive metabolic 2000 panelOrdered By: Kat Araujo on 08-29-2023 Albumin [Mass/Vol] 4.4 g/dL 3.9 - 4.9 g/dL [facility] ALP [Catalytic activity/Vol] 82 U/L 34 - 123 U/L [facility] ALT [Catalytic activity/Vol] 11 U/L 7 - 38 U/L [facility] Anion gap [Moles/Vol] 9 mmol/L 8 - 15 mmol/L [facility] AST [Catalytic activity/Vol] 19 U/L 13 - 35 U/L [facility] Bilirubin [Mass/Vol] 0.2 mg/dL 0.2 - 1.3 mg/dL [facility] Calcium [Mass/Vol] 9.9 mg/dL 8.5 - 10. 2 mg/dL [facility] Chloride [Moles/Vol] 99 mmol/L 98 - 107 mmol/L [facility] CO2 [Moles/Vol] 27 mmol/L 22 - 30 mmol/L [facility] Creatinine [Mass/Vol] 0.75 mg/dL 0.58 - 0.96 mg/dL [facility] GFR/1.73 sq M.predicted among non-blacks MDRD (S/P/Bld) [Vol rate/Area] 89 mL/min/{1.73_m2} - PINF [facility] Comment on above: Estimated Glomerular Filtration Rate (eGFR) is calculated using the 2020 CKD-EPI creatinine equation. This equation utilizes serum creatinine, sex, and age as parameters. The creatinine assay has traceable calibration to isotope dilution-mass spectrometry. Refer to KDIGO guidelines for clinical interpretation. In patients with unstable renal function, e.g. those with acute kidney injury, the eGFR may not accurately reflect actual GFR. Glucose [Mass/Vol] 92 mg/dL 74 - 99 mg/dL [facility] Comment on above: The Stateless Diabete s Association (ADA) provides guidance for cutoff values for fasting glucose and random glucose. The ADA defines fasting as no caloric intake for at least 8 hours. Fasting plasma glucose results between 100 to 125 mg/dL indicate increased risk for diabetes (prediabetes). Fasting plasma glucose results greater than or equal to 126 mg/dL meet the criteria for diagnosis of diabetes. In the absence of unequivocal hyperglycemia, results should be confirmed by repeat testing. In a patient with classic symptoms of hyperglycemia or hyperglycemic crisis, random plasma glucose results greater than or equal to 200 mg/dL meet the criteria for diagnosis of diabetes. Reference: Standards of Medical Care in Diabetes 2016, Stateless Diabetes Association. Diabetes Care. 2016.39(Suppl 1). Interpretation and review of laboratory results Abnormal [facility] Potassium [Moles/Vol] 4.2 mmol/L 3.7 - 5.1 mmol/L [facility] Protein [Mass/Vol] 6.9 g/dL 6.3 - 8.0 g/dL [facility] Sodium [Moles/Vol] 135 mmol/L Low 136 - 144 mmol/L [facility] Urea nitrogen [Mass/Vol] 18 mg/dL 7 - 21 mg/dL [facility] No Panel Informationon 08-28 Interpretation and review of laboratory results Normal [facility] T4 FREE/FREE THYROXon 2023 Free T4 [Mass/Vol] 1.1 ng/dL 0.9 - 1.7 ng/dL [facility] TSH BLDon 08-29-2023 TSH Qn 1.350 m[IU]/L [facility] DBT Breast - bilateral diagn ostic for implanton 08-20-2023 * * *Final Report* * * DATE OF EXAM: Aug 20 2023 3:02PM MADDY [id number] - RADHA DIAG W GEO TARAH / PROCEDURE REASON: multiple diagnoses * * * * Physician Interpretation * * * * RESULT: #[id number] - RADHA [place] GEO TARAH #[id number] - RADHA US BREAST LTD LT BILATERAL DIGITAL DIAGNOSTIC MAMMOGRAM TOMOSYNTHESIS WITH CAD: 08/20/2023 HISTORY: Multiple Diagnoses/follow up post bilateral US biopsies/ /priors available for comparison Multiple Diagnoses. RESULT: TECHNIQUE: The study was acquired using full field digital technology and interpreted from soft copy. Digital Breast Tomosynthesis (DBT) images were obtained and used to assist in the interpretation of this examination. Current study was also evaluated with a Computer Aided Detection (CAD). Comparison is made to exams dated: 04/24/2023 mammogram - [facility], 04/17/2023 mammogram - [facility], 04/17/2023 mammogram - [facility], and 10/09/2021 mammogram - [facility]. The breasts are almost entirely fatty. There are stable biopsy clips in the right breast. Right breast implant is stable. There also is a stable biopsied focal asymmetry in the right breast at 1 o'clock. Prior asymmetry is no longer seen in the left breast. Additionally, there is a stable biopsy clip in the left breast. No significant masses, calcifications, or other findings are seen in either breast. DIVISION OF RADIOLOGY Provider, [facility] - 08/20/2023 * * *Final Report* * * DATE OF EXAM: Aug 20 2023 3:02PM [facility] 0627 - RADHA DONALD [place] GEO TARAH / PROCEDURE REASON: multiple diagnoses * * * * Physician Interpretation * * * * RESULT: #[id number] - RADHA DONALD W GEO TARAH #[id number] - RADHA US BREAST LTD LT BILATERAL DIGITAL DIAGNOSTIC MAMMOGRAM TOMOSYNTHESIS WITH CAD: 08/20/2023 HISTORY: Multiple Diagnoses/follow up post bilateral US biopsies/ /priors available for comparison Multiple Diagnoses. RESULT: TECHNIQUE: The study was acquired using full field digital technology and interpreted from soft copy. Digital Breast Tomosynthesis (DBT) images were obtained and used to assist in the interpretation of this examination. Current study was also evaluated with a Computer Aided Detection (CAD). Comparison is made to exams dated: 04/24/2023 mammogram - [facility], 04/17/2023 mammogram - [facility], 04/17/2023 [facility], [facility] The breasts are almost entirely fatty. There are stable biopsy clips in the right breast. Right breast implant is stable. There also is a stable biopsied focal asymmetry in the right breast at 1 o'clock. Prior asymmetry is no longer seen in the left breast. Additionally, there is a stable biopsy clip in the left breast. No significant masses, calcifications, or other findings are seen in either breast. IMPRESSION IMPRESSION: BENIGN FINDING There is no mammographic evidence of malignancy. LIMITED ULTRASOUND OF LEFT BREAST AND AXILLA: 08/20/2023 RESULT: Comparison is made to exams dated: 04/24/2023 mammogram - [facility], 04/17/2023 mammogram - [facility], 04/17/2023 mammogram - [facility], and 10/09/2021 mammogram - [facility]. Color flow and real-time ultrasound of the left breast 1 o'clock, and axilla regions were performed. Laughlin scale images of the real-time examination were reviewed. There is a 9 mm oval fluid collection in the left breast at 2 o'clock posterior depth. This oval fluid collection is hypoechoic. There is an associated biopsy clip. There also is a 1.8 cm x 0.8 cm x 0.9 cm lymph node with uniform cortical thickening in the left axillary tail. This lymph node is hypoechoic. This abnormality is decreased in size. IMPRESSION: KNOWN BIOPSY PROVEN MALIGNANCY The 9 mm oval fluid collection in the left breast at 2 o'clock posterior depth is a known biopsy positive for malignancy. The 1.8 cm x 0.8 cm x 0.9 cm lymph node with uniform cortical thickening in the left axillary tail is a known biopsy positive for malignancy. Sherry east/nathanael:08/20/2023 15:16:14 Multiple national specialty organizations have released breast cancer screening guidelines for women at average risk for developing breast cancer - guidelines that are based on both evidence and opinion, yet differ on when to start and how often to screen for breast cancer. With representation from Breast Imaging, Internal Medicine, Women's Health, Family Medicine, and Medical/Surgical Oncology, the [facility] has carefully reviewed the data and reached the following consensus: 1) All women should engage in shared decision-making with their providers to decide when to start and how often to screen; 2) All women should have the opportunity to start screening mammography at age 40; 3) For women ages 45-55, we recommend annual screening mammograms; 4) For women ages 55 and over, we support both the transition from an annual to a biennial interval if this aligns more with patient's values and preferences, or continuation with annual screening; 5) All women should discuss with their providers when to stop screening mammograms. Mill Crane Operator(s): RT Zhane(R)(M), [facility]; Joanne Jean Baptiste, [facility] OVERALL STUDY BIRADS: 6 Known biopsy proven malignancy 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: Nathanael Transcribe Date/Time: Aug 20 2023 2:26P Dictated by: SHERRY RUIZ MD This examination was interpreted and the report reviewed and electronically signed by: SHERRY RUIZ MD on Aug 20 2023 3:16PM [facility] No Panel Informationon 08-19 IMPRESSION: BENIGN F INDING There is no mammographic evidence of malignancy. LIMITED ULTRASOUND OF LEFT BREAST AND AXILLA: 08/20/2023 RESULT: Comparison is made to exams dated: 04/24/2023 mammogram - [facility], 04/17/2023 mammogram - [facility], 04/17/2023 mammogram - [facility], and 10/09/2021 mammogram - [facility]. Color flow and real-time ultrasound of the left breast 1 o'clock, and axilla regions were performed. Laughlin scale images of the real-time examination were reviewed. There is a 9 mm oval fluid collection in the left breast at 2 o'clock posterior depth. This oval fluid collection is hypoechoic. There is an associated biopsy clip. There also is a 1.8 cm x 0.8 cm x 0.9 cm lymph node with uniform cortical thickening in the left axillary tail. This lymph node is hypoechoic. This abnormality is decreased in size. IMPRESSION: KNOWN BIOPSY PROVEN MALIGNANCY The 9 mm oval fluid collection in the left breast at 2 o'clock posterior depth is a known biopsy positive for malignancy. The 1.8 cm x 0.8 cm x 0.9 cm lymph node with uniform cortical thickening in the left axillary tail is a known biopsy positive for malignancy. Sherry east/nathanael:08/20/2023 15:16:14 Multiple national specialty organizations have released breast cancer screening guidelines for women at average risk for developing breast cancer - guidelines that are based on both evidence and opinion, yet differ on when to start and how often to screen for breast cancer. With representation from Breast Imaging, Internal Medicine, Women's Health, Family Medicine, and Medical/Surgical Oncology, the [facility] has carefully reviewed the data and reached the following consensus: 1) All women should engage in shared decision-making with their providers to decide when to start and how often to screen; 2) All women should have the opportunity to start screening mammography at age 40; 3) For women ages 45-55, we recommend annual screening mammograms; 4) For women ages 55 and over, we support both the transition from an annual to a biennial interval if this aligns more with patient's values and preferences, or continuation with annual screening; 5) All women should discuss with their providers when to stop screening mammograms. Mill Crane Operator(s): RT Zhane(R)(M), [facility]; Joanne Jean Baptiste, [facility] OVERALL STUDY BIRADS: 6 Known biopsy proven malignancy 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: Nathanael Transcribe Date/Time: Aug 20 2023 2:26P Dictated by: SHERRY RUIZ MD This examination was interpreted and the report reviewed and electronically signed by: SHERRY RUIZ MD on Aug 20 2023 3:16PM [facility] DIVISION OF RADIOLOGY Radiology Study observation (narrative) [facility] No Panel InformationOrdered By: [facility] Provider on 08-20-2023 [facility] US Breast - left limitedon 0 08-20-2023 * * *Final Report* * * DATE OF EXAM: Aug 20 2023 3:06PM WRU [id number] - [facility] US BREAST LTD LT / PROCEDURE REASON: multiple diagnoses * * * * Physician Interpretation * * * * #[id number] - [facility] DONALD RASCON #[id number] - [facility] US BREAST LTD LT BILATERAL DIGITAL DIAGNOSTIC MAMMOGRAM TOMOSYNTHESIS WITH CAD: 08/20/2023 HISTORY: Multiple Diagnoses/follow up post bilateral US biopsies/ /priors available for comparison Multiple Diagnoses. RESULT: TECHNIQUE: The study was acquired using full field digital technology and interpreted from soft copy. Digital Breast Tomosynthesis (DBT) images were obtained and used to assist in the interpretation of this examination. Current study was also evaluated with a Computer Aided Detection (CAD). Comparison is made to exams dated: 04/24/2023 mammogram - [facility], 04/17/2023 mammogram - [facility], 04/17/2023 mammogram - [facility], and 10/09/2021 [facility] - [facility]. The breasts are almost entirely fatty. There are stable biopsy clips in the right breast. Right breast implant is stable. There also is a stable biopsied focal asymmetry in the right breast at 1 o'clock. Prior asymmetry is no longer seen in the left breast. Additionally, there is a stable biopsy clip in the left breast. No significant masses, calcifications, or other findings are seen in either breast. DIVISION OF RADIOLOGY Provider, [facility] - 08/20/2023 * * *Final Report* * * DATE OF EXAM: Aug 20 2023 3:06PM WRU [id number] - [facility] YellowSchedule BREAST LTD LT / PROCEDURE REASON: multiple diagnoses * * * * Physician Interpretation * * * * #[id number] - [facility] AMEEG W GEO TARAH #[id number] - [facility] YellowSchedule BREAST [facility] LT BILATERAL DIGITAL DIAGNOSTIC MAMMOGRAM TOMOSYNTHESIS WITH CAD: 08/20/2023 HISTORY: Multiple Diagnoses/follow up post bilateral US biopsies/ /priors available for comparison Multiple Diagnoses. RESULT: TECHNIQUE: The study was acquired using full field digital technology and interpreted from soft copy. Digital Breast Tomosynthesis (DBT) images were obtained and used to assist in the interpretation of this examination. Current study was also evaluated with a Computer Aided Detection (CAD). Comparison is made to exams dated: 04/24/2023 mammogram - [facility], 04/17/2023 mammogram - [facility], 04/17/2023 mammogram - [facility], and 10/09/2021 mammogram - [facility]. The breasts are almost entirely fatty. There are stable biopsy clips in the right breast. Right breast implant is stable. There also is a stable biopsied focal asymmetry in the right breast at 1 o'clock. Prior asymmetry is no longer seen in the left breast. Additionally, there is a stable biopsy clip in the left breast. No significant masses, calcifications, or other findings are seen in either breast. IMPRESSION IMPRESSION: BENIGN FINDING There is no mammographic evidence of malignancy. LIMITED ULTRASOUND OF LEFT BREAST AND AXILLA: 08/20/2023 RESULT: Comparison is made to exams dated: 04/24/2023 mammogram - [facility], 04/17/2023 mammogram - [facility], 04/17/2023 [facility], [facility] Color flow and real-time ultrasound of the left breast 1 o'clock, and axilla regions were performed. Laughlin scale images of the real-time examination were reviewed. There is a 9 mm oval fluid collection in the left breast at 2 o'clock posterior depth. This oval fluid collection is hypoechoic. There is an associated biopsy clip. There also is a 1.8 cm x 0.8 cm x 0.9 cm lymph node with uniform cortical thickening in the left axillary tail. This lymph node is hypoechoic. This abnormality is decreased in size. IMPRESSION: KNOWN BIOPSY PROVEN MALIGNANCY The 9 mm oval fluid collection in the left breast at 2 o'clock posterior depth is a known biopsy positive for malignancy. The 1.8 cm x 0.8 cm x 0.9 cm lymph node with uniform cortical thickening in the left axillary tail is a known biopsy positive for malignancy. Sherry east/nathanael:08/20/2023 15:16:14 Multiple national specialty organizations have released breast cancer screening guidelines for women at average risk for developing breast cancer - guidelines that are based on both evidence and opinion, yet differ on when to start and how often to screen for breast cancer. With representation from Breast Imaging, Internal Medicine, Women's Health, Family Medicine, and Medical/Surgical Oncology, the [facility] has carefully reviewed the data and reached the following consensus: 1) All women should engage in shared decision-making with their providers to decide when to start and how often to screen; 2) All women should have the opportunity to start screening mammography at age 40; 3) For women ages 45-55, we recommend annual screening mammograms; 4) For women ages 55 and over, we support both the transition from an annual to a biennial interval if this aligns more with patient's values and preferences, or continuation with annual screening; 5) All women should discuss with their providers when to stop screening mammograms. Mill Crane Operator(s): Shweta Miranda, RT(R)(M), [facility]; Joanne Jean Baptiste, [facility] OVERALL STUDY BIRADS: 6 Known biopsy proven malignancy 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: Nathanael Transcribe Date/Time: Aug 20 2023 2:26P Dictated by : SHERRY RUIZ MD This examination was interpreted and the report reviewed and electronically signed by: SHERRY RUIZ MD on Aug 20 2023 3:16PM EST [facility] CBC W Auto Differential pane l (Bld)on 08-08-2023 Basophils (Bld) [#/Vol] 0.05 10*3/uL [facility] Basophils/100 WBC (Bld) 2.0 % [facility] Differential cell count method Nom (Bld) Auto [facility] Eosinophils (Bld) [#/Vol] 0.20 10*3/uL [facility] Eosinophils/100 WBC (Bld) 8.1 % [facility] Erythrocyte distribution width (RBC) [Ratio] 15.9 % High 11.5 - 15.0 % [facility] Hematocrit (Bld) [Volume fraction] 32.2 % Low 36.0 - 46.0 % [facility] Hemoglobin (Bld) [Mass/Vol] 10.9 g/dL Low 11.5 - 15.5 g/dL [facility] Immature granulocytes (Bld) [#/Vol] [facility] Immature granulocytes/100 WBC (Bld) 0.0 % [facility] Interpretation and review of laboratory results Abnormal [facility] Lymphocytes (Bld) [#/Vol] 0.76 10*3/uL Low [facility] Lymphocytes/100 WBC (Bld) 30.9 % [facility] MCH (RBC) [Entitic mass] 31.9 pg 26.0 - 34.0 pg [facility] MCHC (RBC) [Mass/Vol] 33.9 g/dL 30.5 - 36.0 g/dL [facility] MCV (RBC) [Entitic vol] 94.2 fL 80.0 - 100.0 fL [facility] Monocytes (Bld) [#/Vol] 0.39 10*3/uL NINF [facility] Monocytes/100 WBC (Bld) 15.9 % [facility] Neutrophils (Bld) [#/Vol] 1.06 10*3/uL Low [facility] Neutrophils/100 WBC (Bld) 43.1 % [facility] Nucleated RBC (Bld) [#/Vol] NINF [facility] Nucleated RBC/100 WBC (Bld) [Ratio] 0.0 % /100 WBC [facility] Platelet mean volume (Bld) [Entitic vol] 8.8 fL Low 9.0 - 12.7 fL [facility] Platelets (Bld) [#/Vol] 218 10*3/uL [facility] RBC (Bld) [#/Vol] 3.42 10*6/uL Low 3.90 - 5.20 m/uL [facility] WBC (Bld) [#/Vol] 2.46 10*3/uL Low [facility] CORTISOL BLDon 08-08-2023 Cortisol [Mass/Vol] 9.0 ug/dL 4.8 - 19 .5 ug/dL [facility] Comment on above: Provided reference r claudio is from 6-10 AM sample collection time. Cortisol Reference Range: 6-10 AM = 4.8-19.5 ug/dL, 4-8 PM = 2.5-11.9 ug/dL Comprehensive metabolic 2000 panelon 08-08-2023 Albumin [Mass/Vol] 4.3 g/dL 3.9 - 4.9 g/dL [facility] ALP [Catalytic activity/Vol] 78 U/L 34 - 123 U/L [facility] ALT With P-5'-P [Catalytic activity/Vol] 13 U/L 7 - 38 U/L [facility] Anion gap [Moles/Vol] 8 mmol/L Low 9 - 18 mmol/L [facility] AST With P-5'-P [Catalytic activity/Vol] 23 U/L 13 - 35 U/L [facility] Bilirubin [Mass/Vol] 0.3 mg/dL 0.2 - 1.3 mg/dL [facility] Calcium [Mass/Vol] 9.1 mg/dL 8.5 - 10. 2 mg/dL [facility] Chloride [Moles/Vol] 101 mmol/L 97 - 105 mmol/L [facility] CO2 [Moles/Vol] 27 mmol/L 22 - 30 mmol/L [facility] Creatinine [Mass/Vol] 0.64 mg/dL 0.58 - 0.96 mg/dL [facility] GFR/1.73 sq M.predicted among non-blacks MDRD (S/P/Bld) [Vol rate/Area] 99 mL/min/{1.73_m2} - PINF [facility] Comment on above: Estimated Glomerular Filtration Rate (eGFR) is calculated using the 2020 CKD-EPI creatinine equation. This equation utilizes serum creatinine, sex, and age as parameters. The creatinine assay has traceable calibration to isotope dilution-mass spectrometry. Refer to KDIGO guidelines for clinical interpretation. In patients with unstable renal function, e.g. those with acute kidney injury, the eGFR may not accurately reflect actual GFR. Glucose [Mass/Vol] 88 mg/dL 74 - 99 mg/dL [facility] Comment on above: The Stateless Diabete s Association (ADA) provides guidance for cutoff values for fasting glucose and random glucose. The ADA defines fasting as no caloric intake for at least 8 hours. Fasting plasma glucose results between 100 to 125 mg/dL indicate increased risk for diabetes (prediabetes). Fasting plasma glucose results greater than or equal to 126 mg/dL meet the criteria for diagnosis of diabetes. In the absence of unequivocal hyperglycemia, results should be confirmed by repeat testing. In a patient with classic symptoms of hyperglycemia or hyperglycemic crisis, random plasma glucose results greater than or equal to 200 mg/dL meet the criteria for diagnosis of diabetes. Reference: Standards of Medical Care in Diabetes 2016, [employer]eless Diabetes Association. Diabetes Care. 2016.39(Suppl 1). Interpretation and review of laboratory results Abnormal [facility] Potassium [Moles/Vol] 4.4 mmol/L 3.7 - 5.1 mmol/L [facility] Protein [Mass/Vol] 6.7 g/dL 6.3 - 8.0 g/dL [facility] Sodium [Moles/Vol] 136 mmol/L 136 - 144 mmol/L [facility] Urea nitrogen [Mass/Vol] 15 mg/dL 7 - 21 mg/dL [facility] No Panel Informationon 08-07 Interpretation and review of laboratory results Normal [facility] T4 FREE/FREE THYROXon 2023 Free T4 [Mass/Vol] 1.0 ng/dL 0.9 - 1.7 ng/dL [facility] TSH BLDon 08-08-2023 TSH Qn 1.150 m[IU]/L [facility] CBC W Auto Differential pane l (Bld)on 07-18-2023 Anisocytosis Ql (Bld) Present [facility] Basophils (Bld) [#/Vol] 0.04 10*3/uL [facility] Basophils/100 WBC (Bld) 2.0 % [facility] Differential cell count method Nom (Bld) Manual [facility] Eosinophils (Bld) [#/Vol] 0.04 10*3/uL [facility] Eosinophils/100 WBC (Bld) 2.0 % [facility] Erythrocyte distribution width (RBC) [Ratio] 17.6 % High 11.5 - 15.0 % [facility] Hematocrit (Bld) [Volume fraction] 27.4 % Low 36.0 - 46.0 % [facility] Hemoglobin (Bld) [Mass/Vol] 9.1 g/dL Low 11.5 - 15.5 g/dL [facility] Interpretation and review of laboratory results Abnormal [facility] Lymphocytes (Bld) [#/Vol] 0.59 10*3/uL Low [facility] Lymphocytes/100 WBC (Bld) 30.0 % [facility] MCH (RBC) [Entitic mass] 31.5 pg 26.0 - 34.0 pg [facility] MCHC (RBC) [Mass/Vol] 33.2 g/dL 30.5 - 36.0 g/dL [facility] MCV (RBC) [Entitic vol] 94.8 fL 80.0 - 100.0 fL [facility] Monocytes (Bld) [#/Vol] 0.18 10*3/uL [facility] Monocytes/100 WBC (Bld) 9.0 % [facility] Neutrophils (Bld) [#/Vol] 1.13 10*3/uL Low [facility] Neutrophils/100 WBC (Bld) 57.0 % [facility] Nucleated RBC (Bld) [#/Vol] NINF [facility] Nucleated RBC/100 WBC (Bld) [Ratio] 0.0 % /100 WBC [facility] Ovalocytes LM Ql (Bld) Few [facility] Platelet mean volume (Bld) [Entitic vol] 9.7 fL 9.0 - 12.7 fL [facility] Platelets (Bld) [#/Vol] 189 10*3/uL [facility] Comment on above: No clot detected. Platelets Estimate (Bld) [#/Vol] Adequate [facility] Polychromasia LM Ql (Bld) Slight [facility] RBC (Bld) [#/Vol] 2.89 10*6/uL Low 3.90 - 5.20 m/uL [facility] RBC Fragments Few Abnormal None Seen [facility] Red Cell Morph Reviewed: see result s of individual morphologies [facility] WBC (Bld) [#/Vol] 1.98 10*3/uL Low [facility] This is an appended report. These results have been appended to a previously verified report. [facility] CORTISOL BLDon 07-18-2023 Cortisol [Mass/Vol] 11.9 ug/dL 4.8 - 19 .5 ug/dL [facility] Comment on above: Provided reference roxana snyder is from 6-10 AM sample collection time. Cortisol Reference Range: 6-10 AM = 4.8-19.5 ug/dL, 4-8 PM = 2.5-11.9 ug/dL Comprehensive metabolic 2000 panelOrdered By: Kat Araujo on 07-18-2023 Albumin [Mass/Vol] 3.9 g/dL 3.9 - 4.9 g/dL [facility] ALP [Catalytic activity/Vol] 88 U/L 34 - 123 U/L [facility] ALT [Catalytic activity/Vol] 12 U/L 7 - 38 U/L [facility] Anion gap [Moles/Vol] 5 mmol/L Low 9 - 18 mmol/L [facility] AST [Catalytic activity/Vol] 16 U/L 13 - 35 U/L [facility] Bilirubin [Mass/Vol] 0.5 mg/dL 0.2 - 1.3 mg/dL [facility] Calcium [Mass/Vol] 9.0 mg/dL 8.5 - 10. 2 mg/dL [facility] Chloride [Moles/Vol] 104 mmol/L 97 - 105 mmol/L [facility] CO2 [Moles/Vol] 29 mmol/L 22 - 30 mmol/L [facility] Creatinine [Mass/Vol] 0.62 mg/dL 0.58 - 0.96 mg/dL [facility] GFR/1.73 sq M.predicted among non-blacks MDRD (S/P/Bld) [Vol rate/Area] 100 mL/min/{1.73_m2} - PINF [facility] Comment on above: Estimated Glomerular Filtration Rate (eGFR) is calculated using the 2020 CKD-EPI creatinine equation. This equation utilizes serum creatinine, sex, and age as parameters. The creatinine assay has traceable calibration to isotope dilution-mass spectrometry. Refer to KDIGO guidelines for clinical interpretation. In patients with unstable renal function, e.g. those with acute kidney injury, the eGFR may not accurately reflect actual GFR. Glucose [Mass/Vol] 119 mg/dL High 74 - 99 mg/dL [facility] Comment on above: The Stateless Diabete s Association (ADA) provides guidance for cutoff values for fasting glucose and random glucose. The ADA defines fasting as no caloric intake for at least 8 hours. Fasting plasma glucose results between 100 to 125 mg/dL indicate increased risk for diabetes (prediabetes). Fasting plasma glucose results greater than or equal to 126 mg/dL meet the criteria for diagnosis of diabetes. In the absence of unequivocal hyperglycemia, results should be confirmed by repeat testing. In a patient with classic symptoms of hyperglycemia or hyperglycemic crisis, random plasma glucose results greater than or equal to 200 mg/dL meet the criteria for diagnosis of diabetes. Reference: Standards of Medical Care in Diabetes 2016, [employer]. Diabetes Care. 2016.39(Suppl 1). Interpretation and review of laboratory results Abnormal [facility] Potassium [Moles/Vol] 3.9 mmol/L 3.7 - 5.1 mmol/L [facility] Protein [Mass/Vol] 6.2 g/dL Low 6.3 - 8.0 g/dL [facility] Sodium [Moles/Vol] 138 mmol/L 136 - 144 mmol/L [facility] Urea nitrogen [Mass/Vol] 8 mg/dL 7 - 21 mg/dL [facility] No Panel Informationon 04-25 -2024 Interpretation and review of laboratory results Normal [facility] T4 FREE/FREE THYROXon 2023 Free T4 [Mass/Vol] 1.3 ng/dL 0.9 - 1.7 ng/dL [facility] TSH BLDon 07-18-2023 TSH Qn 0.505 m[IU]/L [facility] MRI BREAST 3D POST PROCESSIN Mata 07-17-2023 MRI BREAST 3D POST PROCESSING * * *Final Report* * * DATE OF EXAM: Jul 17 2023 11:05AM [facility] [id number] - MRI BREAST 3D POST PROCESSING / PROCEDURE REASON: multiple diagnoses * * * * Physician Interpretation * * * * MRI BILATERAL BREASTS WITHOUT AND WITH CONTRAST Clinical Statement: Malignant neoplasm of overlapping sites left breast, history of prior right breast cancer Comparison: Bilateral ultrasound biopsy is 04/24/2023, MRI 04/09/2023, mammogram 04/17/2023, PET/CT 04/09/2023 TECHNIQUE: FSPGR, T1 axial and coronal images were obtained as well as T2 axial images. A dynamic series of 4 FSPGR 3-D T1 weighted axial images of both breasts were obtained following intravenous administration of gadolinium at 0.1 millimoles/kg. Fat suppression as well as subtraction imaging was performed both axially and coronally. A sagittal fat suppressed series was obtained as the last sequence in this study. The examination was reviewed utilizing [employer] software with computer-determined curve analysis. FINDINGS: The breasts are comprised of scattered fibroglandular elements. There are bilateral retropectoral saline implants. An irregular mass in the upper inner quadrant right breast middle depth measures approximately 2.6 x 1.3 x 1.1 cm and contains 2 biopsy marking clips. Recent pathology demonstrated benign inflamed fibroadipose tissue with hemorrhage, stromal fibroelastosis and fat necrosis. No malignancy identified. In the left breast, there is magnetic susceptibility artifact in the upper outer quadrant anterior depth related to biopsy clip. This corresponds with biopsy-proven malignancy. No residual measurable mass identified. There is a punctate focus of enhancement seen only on subtraction images measuring 2 to 3 mm in greatest dimension. No new mass. There is persistent but improved left axillary adenopathy with the largest residual lymph node measuring 1 cm in short axis. There is diffusely mottled marrow signal throughout the visualized osseous structures, most apparent within the sternum. IMPRESSION: 1. No residual measurable mass in the upper outer quadrant anterior depth left breast at site of biopsy-proven malignancy. There is a punctate 2 to 3 mm focus of enhancement within this region. 2. Persistent but improved left axillary adenopathy. 3. Diffusely abnormal marrow signal, most apparent within the sternum. No discrete osseous lesions or abnormal activity seen on PET/CT 04/09/2023. Consider correlation with bone scan. BI-RADS 6. 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: PSCB Transcribe Date/Time: Jul 17 2023 1:29P Dictated by : YAEL MARSHALL MD This examination was interpreted and the report reviewed and electronically signed by: YAEL MARSHALL MD on Jul 18 2023 12:52PM EST [id number] Normal [facility] MRI BREAST WO/W IVCON BILon 07-17-2023 MRI BREAST WO/W IVCON TARAH * * *Final Report* * * DATE OF EXAM: Jul 17 2023 11:05AM [facility] [id number] - MRI BREAST WO/W IVCON TARAH / PROCEDURE REASON: multiple diagnoses * * * * Physician Interpretation * * * * MRI BILATERAL BREASTS WITHOUT AND WITH CONTRAST Clinical Statement: Malignant neoplasm of overlapping sites left breast, history of prior right breast cancer Comparison: Bilateral ultrasound biopsy is 04/24/2023, MRI 04/09/2023, mammogram 04/17/2023, PET/CT 04/09/2023 TECHNIQUE: FSPGR, T1 axial and coronal images were obtained as well as T2 axial images. A dynamic series of 4 FSPGR 3-D T1 weighted axial images of both breasts were obtained following intravenous administration of gadolinium at 0.1 millimoles/kg. Fat suppression as well as subtraction imaging was performed both axially and coronally. A sagittal fat suppressed series was obtained as the last sequence in this study. The examination was reviewed utilizing [employer] software with computer-determined curve analysis. FINDINGS: The breasts are comprised of scattered fibroglandular elements. There are bilateral retropectoral saline implants. An irregular mass in the upper inner quadrant right breast middle depth measures approximately 2.6 x 1.3 x 1.1 cm and contains 2 biopsy marking clips. Recent pathology demonstrated benign inflamed fibroadipose tissue with hemorrhage, stromal fibroelastosis and fat necrosis. No malignancy identified. In the left breast, there is magnetic susceptibility artifact in the upper outer quadrant anterior depth related to biopsy clip. This corresponds with biopsy-proven malignancy. No residual measurable mass identified. There is a punctate focus of enhancement seen only on subtraction images measuring 2 to 3 mm in greatest dimension. No new mass. There is persistent but improved left axillary adenopathy with the largest residual lymph node measuring 1 cm in short axis. There is diffusely mottled marrow signal throughout the visualized osseous structures, most apparent within the sternum. IMPRESSION: 1. No residual measurable mass in the upper outer quadrant anterior depth left breast at site of biopsy-proven malignancy. There is a punctate 2 to 3 mm focus of enhancement within this region. 2. Persistent but improved left axillary adenopathy. 3. Diffusely abnormal marrow signal, most apparent within the sternum. No discrete osseous lesions or abnormal activity seen on PET/CT 04/09/2023. Consider correlation with bone scan. BI-RADS 6. 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: AMALIA Transcribe Date/Time: Jul 17 2023 1:29P Dictated by : YAEL MARSHALL MD This examination was interpreted and the report reviewed and electronically signed by: YAEL MARSHALL MD on Jul 18 2023 12:52PM EST [id number] Normal [facility] ACTH BLDon 07-12-2023 Corticotropin (P) [Mass/Vol] 8.4 pg/mL 7.2 - 63.3 pg/mL [facility] CBC W Auto Differential pane l (Bld)on 07-12-2023 Anisocytosis Ql (Bld) Present [facility] Basophils (Bld) [#/Vol] 0.13 10*3/uL High <0.11 k/uL [facility] Basophils/100 WBC (Bld) 2.0 % [facility] Differential cell count method Nom (Bld) Manual [facility] Eosinophils (Bld) [#/Vol] 0.13 10*3/uL <0.46 k/uL [facility] Eosinophils/100 WBC (Bld) 2.0 % [facility] Erythrocyte distribution width (RBC) [Ratio] 18.1 % High 11.5 - 15.0 % [facility] Hematocrit (Bld) [Volume fraction] 27.2 % Low 36.0 - 46.0 % [facility] Hemoglobin (Bld) [Mass/Vol] 9.0 g/dL Low 11.5 - 15.5 g/dL [facility] Lymphocytes (Bld) [#/Vol] 0.98 10*3/uL Low 1.00 - 4.00 k/uL [facility] Lymphocytes/100 WBC (Bld) 15.0 % [facility] MCH (RBC) [Entitic mass] 31.5 pg 26.0 - 34.0 pg [facility] MCHC (RBC) [Mass/Vol] 33.1 g/dL 30.5 - 36.0 g/dL [facility] MCV (RBC) [Entitic vol] 95.1 fL 80.0 - 100.0 fL [facility] Monocytes (Bld) [#/Vol] 0.91 10*3/uL High <0.87 k/uL [facility] Monocytes/100 WBC (Bld) 14.0 % [facility] Myelo % 1.0 % [facility] Neutrophils (Bld) [#/Vol] 4.31 10*3/uL 1.45 - 7.50 k/uL [facility] Neutrophils/100 WBC (Bld) 66.0 % [facility] Nucleated RBC (Bld) [#/Vol] <0.01 k/uL [facility] Nucleated RBC/100 WBC (Bld) [Ratio] 0.0 /100 WBC [facility] Ovalocytes LM Ql (Bld) Few [facility] Platelet mean volume (Bld) [Entitic vol] 9.6 fL 9.0 - 12.7 fL [facility] Platelets (Bld) [#/Vol] 283 10*3/uL 150 - 400 k/uL [facility] Platelets Estimate (Bld) [#/Vol] Adequate [facility] Polychromasia LM Ql (Bld) Slight [facility] RBC (Bld) [#/Vol] 2.86 10*6/uL Low 3.90 - 5.20 m/uL [facility] RBC Fragments Few Abnormal None Seen [facility] Red Cell Morph Reviewed: see result s of individual morphologies [facility] WBC (Bld) [#/Vol] 6.53 10*3/uL 3.70 - 11.00 k/uL [facility] WBC Left Shift Ql (Bld) Present [facility] CORTISOL BLDon 07-12-2023 Cortisol [Mass/Vol] 12.8 ug/dL 4.8 - 19 .5 ug/dL [facility] metabolic 2000 panelon 07-12-2023 Albumin [Mass/Vol] 3.9 g/dL 3.9 - 4.9 g/dL [facility] ALP [Catalytic activity/Vol] 99 U/L 34 - 123 U/L [facility] ALT [Catalytic activity/Vol] 18 U/L 7 - 38 U/L [facility] Anion gap [Moles/Vol] 6 mmol/L Low 9 - 18 mmol/L [facility] AST [Catalytic activity/Vol] 17 U/L 13 - 35 U/L [facility] Bilirubin [Mass/Vol] 0.3 mg/dL 0.2 - 1.3 mg/dL [facility] Calcium [Mass/Vol] 9.1 mg/dL 8.5 - 10. 2 mg/dL [facility] Chloride [Moles/Vol] 103 mmol/L 97 - 105 mmol/L [facility] CO2 [Moles/Vol] 29 mmol/L 22 - 30 mmol/L [facility] Creatinine [Mass/Vol] 0.68 mg/dL 0.58 - 0.96 mg/dL [facility] Estimated Glomerular Filtration Rate 97 mL/min/1.73m >=60 mL/min/1.7 3m [facility] Glucose [Mass/Vol] 98 mg/dL 74 - 99 mg/dL [facility] Potassium [Moles/Vol] 3.9 mmol/L 3.7 - 5.1 mmol/L [facility] Protein [Mass/Vol] 5.9 g/dL Low 6.3 - 8.0 g/dL [facility] Sodium [Moles/Vol] 138 mmol/L 136 - 144 mmol/L [facility] Urea nitrogen [Mass/Vol] 7 mg/dL 7 - 21 mg/dL [facility] T4 FREE/FREE THYROXon 2023 Free T4 [Mass/Vol] 1.2 ng/dL 0.9 - 1.7 ng/dL [facility] TSH [facility] 07-12-2023 TSH Qn 1.450 m[IU]/L 0.270 - 4.200 mIU/L [facility] metabolic 2000 panelon 07-04-2023 Albumin [Mass/Vol] 3.9 g/dL 3.9 - 4.9 g/dL [facility] ALP [Catalytic activity/Vol] 137 U/L High 34 - 123 U/L [facility] ALT [Catalytic activity/Vol] 17 U/L 7 - 38 U/L [facility] Anion gap [Moles/Vol] 5 mmol/L Low 9 - 18 mmol/L [facility] AST [Catalytic activity/Vol] 19 U/L 13 - 35 U/L [facility] Bilirubin [Mass/Vol] 0.3 mg/dL 0.2 - 1.3 mg/dL [facility] Calcium [Mass/Vol] 9.2 mg/dL 8.5 - 10. 2 mg/dL [facility] Chloride [Moles/Vol] 103 mmol/L 97 - 105 mmol/L [facility] CO2 [Moles/Vol] 29 mmol/L 22 - 30 mmol/L [facility] Creatinine [Mass/Vol] 0.62 mg/dL 0.58 - 0.96 mg/dL [facility] Estimated Glomerular Filtration Rate 100 mL/min/1.73m >=60 mL/min/1.7 3m [facility] Glucose [Mass/Vol] 112 mg/dL High 74 - 99 mg/dL [facility] Potassium [Moles/Vol] 4.0 mmol/L 3.7 - 5.1 mmol/L [facility] Protein [Mass/Vol] 6.1 g/dL Low 6.3 - 8.0 g/dL [facility] Sodium [Moles/Vol] 137 mmol/L 136 - 144 mmol/L [facility] Urea nitrogen [Mass/Vol] 8 mg/dL 7 - 21 mg/dL [facility] CBC W Auto Differential pane l (Bld)on 06-28-2023 Anisocytosis Ql (Bld) Present [facility] Basophils (Bld) [#/Vol] 0.00 10*3/uL <0.11 k/uL [facility] Basophils/100 WBC (Bld) 0.0 % [facility] Differential cell count method Nom (Bld) Manual [facility] Eosinophils (Bld) [#/Vol] 0.00 10*3/uL <0.46 k/uL [facility] Eosinophils/100 WBC (Bld) 0.0 % [facility] Erythrocyte distribution width (RBC) [Ratio] 17.1 % High 11.5 - 15.0 % [facility] Hematocrit (Bld) [Volume fraction] 28.6 % Low 36.0 - 46.0 % [facility] Hemoglobin (Bld) [Mass/Vol] 9.6 g/dL Low 11.5 - 15.5 g/dL [facility] Lymphocytes (Bld) [#/Vol] 1.04 10*3/uL 1.00 - 4.00 k/uL [facility] Lymphocytes/100 WBC (Bld) 5.0 % [facility] MCH (RBC) [Entitic mass] 31.1 pg 26.0 - 34.0 pg [facility] MCHC (RBC) [Mass/Vol] 33.6 g/dL 30.5 - 36.0 g/dL [facility] MCV (RBC) [Entitic vol] 92.6 fL 80.0 - 100.0 fL [facility] Monocytes (Bld) [#/Vol] 1.25 10*3/uL High <0.87 k/uL [facility] Monocytes/100 WBC (Bld) 6.0 % [facility] Neutrophils (Bld) [#/Vol] 18.55 10*3/uL High 1.45 - 7.50 k/uL [facility] Neutrophils/100 WBC (Bld) 89.0 % [facility] Nucleated RBC (Bld) [#/Vol] <0.01 k/uL [facility] Nucleated RBC/100 WBC (Bld) [Ratio] 0.0 /100 WBC [facility] Ovalocytes LM Ql (Bld) Few [facility] Platelet mean volume (Bld) [Entitic vol] 9.8 fL 9.0 - 12.7 fL [facility] Platelets (Bld) [#/Vol] 326 10*3/uL 150 - 400 k/uL [facility] Platelets Estimate (Bld) [#/Vol] Adequate [facility] Polychromasia LM Ql (Bld) Slight [facility] RBC (Bld) [#/Vol] 3.09 10*6/uL Low 3.90 - 5.20 m/uL [facility] RBC Fragments Few Abnormal None Seen [facility] Red Cell Morph Reviewed: see result s of individual morphologies [facility] WBC (Bld) [#/Vol] 20.84 10*3/uL High 3.70 - 11.00 k/uL [facility] Comprehensive metabolic 2000 panelon 06-28-2023 Albumin [Mass/Vol] 4.0 g/dL 3.9 - 4.9 g/dL [facility] ALP [Catalytic activity/Vol] 143 U/L High 34 - 123 U/L [facility] ALT [Catalytic activity/Vol] 27 U/L 7 - 38 U/L [facility] Anion gap [Moles/Vol] 6 mmol/L Low 9 - 18 mmol/L [facility] AST [Catalytic activity/Vol] 20 U/L 13 - 35 U/L [facility] Bilirubin [Mass/Vol] 0.3 mg/dL 0.2 - 1.3 mg/dL [facility] Calcium [Mass/Vol] 9.0 mg/dL 8.5 - 10. 2 mg/dL [facility] Chloride [Moles/Vol] 103 mmol/L 97 - 105 mmol/L [facility] CO2 [Moles/Vol] 28 mmol/L 22 - 30 mmol/L [facility] Creatinine [Mass/Vol] 0.60 mg/dL 0.58 - 0.96 mg/dL [facility] Estimated Glomerular Filtration Rate 100 mL/min/1.73m >=60 mL/min/1.7 3m [facility] Glucose [Mass/Vol] 106 mg/dL High 74 - 99 mg/dL [facility] Potassium [Moles/Vol] 3.9 mmol/L 3.7 - 5.1 mmol/L [facility] Protein [Mass/Vol] 6.2 g/dL Low 6.3 - 8.0 g/dL [facility] Sodium [Moles/Vol] 137 mmol/L 136 - 144 mmol/L [facility] Urea nitrogen [Mass/Vol] 8 mg/dL 7 - 21 mg/dL [facility] CBC W Auto Differential pane l (Bld)on 06-14-2023 Anisocytosis Ql (Bld) Present [facility] Basophils (Bld) [#/Vol] 0.06 10*3/uL <0.11 k/uL [facility] Basophils/100 WBC (Bld) 5.0 % [facility] Differential cell count method Nom (Bld) Manual [facility] Eosinophils (Bld) [#/Vol] 0.13 10*3/uL <0.46 k/uL [facility] Eosinophils/100 WBC (Bld) 10.0 % [facility] Erythrocyte distribution width (RBC) [Ratio] 15.4 % High 11.5 - 15.0 % [facility] Hematocrit (Bld) [Volume fraction] 28.8 % Low 36.0 - 46.0 % [facility] Hemoglobin (Bld) [Mass/Vol] 9.8 g/dL Low 11.5 - 15.5 g/dL [facility] Lymphocytes (Bld) [#/Vol] 0.59 10*3/uL Low 1.00 - 4.00 k/uL [facility] Lymphocytes/100 WBC (Bld) 46.0 % [facility] MCH (RBC) [Entitic mass] 30.8 pg 26.0 - 34.0 pg [facility] MCHC (RBC) [Mass/Vol] 34.0 g/dL 30.5 - 36.0 g/dL [facility] MCV (RBC) [Entitic vol] 90.6 fL 80.0 - 100.0 fL [facility] Girard % 2.0 % [facility] Monocytes (Bld) [#/Vol] 0.31 10*3/uL <0.87 k/uL [facility] Monocytes/100 WBC (Bld) 24.0 % [facility] Myelo % 1.0 % [facility] Neutrophils (Bld) [#/Vol] 0.15 10*3/uL Low 1.45 - 7.50 k/uL [facility] Neutrophils/100 WBC (Bld) 12.0 % [facility] Nucleated RBC (Bld) [#/Vol] <0.01 k/uL [facility] Nucleated RBC/100 WBC (Bld) [Ratio] 0.0 /100 WBC [facility] Ovalocytes LM Ql (Bld) Few [facility] Platelet mean volume (Bld) [Entitic vol] 10.0 fL 9.0 - 12.7 fL [facility] Platelets (Bld) [#/Vol] 200 10*3/uL 150 - 400 k/uL [facility] Platelets Estimate (Bld) [#/Vol] Adequate [facility] RBC (Bld) [#/Vol] 3.18 10*6/uL Low 3.90 - 5.20 m/uL [facility] RBC Fragments Few Abnormal None Seen [facility] Red Cell Morph Reviewed: see result s of individual morphologies [facility] WBC (Bld) [#/Vol] 1.28 10*3/uL Low 3.70 - 11.00 k/uL [facility] CORTISOL BLDon 06-14-2023 Cortisol [Mass/Vol] 15.2 ug/dL 4.8 - 19 .5 ug/dL [facility] Comprehensive metabolic 2000 panelon 06-14-2023 Albumin [Mass/Vol] 3.9 g/dL 3.9 - 4.9 g/dL [facility] ALP [Catalytic activity/Vol] 75 U/L 34 - 123 U/L [facility] ALT [Catalytic activity/Vol] 39 U/L High 7 - 38 U/L [facility] Anion gap [Moles/Vol] 4 mmol/L Low 9 - 18 mmol/L [facility] AST [Catalytic activity/Vol] 31 U/L 13 - 35 U/L [facility] Bilirubin [Mass/Vol] 0.3 mg/dL 0.2 - 1.3 mg/dL [facility] Calcium [Mass/Vol] 9.0 mg/dL 8.5 - 10. 2 mg/dL [facility] Chloride [Moles/Vol] 104 mmol/L 97 - 105 mmol/L [facility] CO2 [Moles/Vol] 29 mmol/L 22 - 30 mmol/L [facility] Creatinine [Mass/Vol] 0.62 mg/dL 0.58 - 0.96 mg/dL [facility] Estimated Glomerular Filtration Rate 100 mL/min/1.73m >=60 mL/min/1.7 3m [facility] Glucose [Mass/Vol] 112 mg/dL High 74 - 99 mg/dL [facility] Potassium [Moles/Vol] 3.7 mmol/L 3.7 - 5.1 mmol/L [facility] Protein [Mass/Vol] 6.2 g/dL Low 6.3 - 8.0 g/dL [facility] Sodium [Moles/Vol] 137 mmol/L 136 - 144 mmol/L [facility] Urea nitrogen [Mass/Vol] 9 mg/dL 7 - 21 mg/dL [facility] T4 FREE/FREE THYROXon 2023 Free T4 [Mass/Vol] 1.1 ng/dL 0.9 - 1.7 ng/dL [facility] TSH Don 06-14-2023 TSH Qn 2.040 m[IU]/L 0.270 - 4.200 mIU/L [facility] CBC W Auto Differential pane l (Bld)on 06-06-2023 Anisocytosis Ql (Bld) Present [facility] Basophils (Bld) [#/Vol] 0.00 10*3/uL <0.11 k/uL [facility] Basophils/100 WBC (Bld) 0.0 % [facility] Differential cell count method Nom (Bld) Manual [facility] Eosinophils (Bld) [#/Vol] 0.00 10*3/uL <0.46 k/uL [facility] Eosinophils/100 WBC (Bld) 0.0 % [facility] Erythrocyte distribution width (RBC) [Ratio] 16.2 % High 11.5 - 15.0 % [facility] Hematocrit (Bld) [Volume fraction] 32.2 % Low 36.0 - 46.0 % [facility] Hemoglobin (Bld) [Mass/Vol] 11.0 g/dL Low 11.5 - 15.5 g/dL [facility] Lymphocytes (Bld) [#/Vol] 0.67 10*3/uL Low 1.00 - 4.00 k/uL [facility] Lymphocytes/100 WBC (Bld) 3.0 % [facility] MCH (RBC) [Entitic mass] 30.8 pg 26.0 - 34.0 pg [facility] MCHC (RBC) [Mass/Vol] 34.2 g/dL 30.5 - 36.0 g/dL [facility] MCV (RBC) [Entitic vol] 90.2 fL 80.0 - 100.0 fL [facility] Girard % 1.0 % [facility] Monocytes (Bld) [#/Vol] 2.90 10*3/uL High <0.87 k/uL [facility] Monocytes/100 WBC (Bld) 13.0 % [facility] Neutrophils (Bld) [#/Vol] 18.48 10*3/uL High 1.45 - 7.50 k/uL [facility] Neutrophils/100 WBC (Bld) 83.0 % [facility] Nucleated RBC (Bld) [#/Vol] <0.01 k/uL [facility] Nucleated RBC/100 WBC (Bld) [Ratio] 0.0 /100 WBC [facility] Ovalocytes LM Ql (Bld) Few [facility] Platelet mean volume (Bld) [Entitic vol] 9.1 fL 9.0 - 12.7 fL [facility] Platelets (Bld) [#/Vol] 187 10*3/uL 150 - 400 k/uL [facility] Platelets Estimate (Bld) [#/Vol] Adequate [facility] RBC (Bld) [#/Vol] 3.57 10*6/uL Low 3.90 - 5.20 m/uL [facility] RBC Fragments Few Abnormal None Seen [facility] Red Cell Morph Reviewed: see result s of individual morphologies [facility] WBC (Bld) [#/Vol] 22.27 10*3/uL High 3.70 - 11.00 k/uL [facility] CORTISOL BLDon 06-06-2023 Cortisol [Mass/Vol] 10.7 ug/dL 4.8 - 19 .5 ug/dL [facility] Comprehensive metabolic 2000 panelon 06-06-2023 Albumin [Mass/Vol] 4.3 g/dL 3.9 - 4.9 g/dL [facility] ALP [Catalytic activity/Vol] 165 U/L High 34 - 123 U/L [facility] ALT [Catalytic activity/Vol] 10 U/L 7 - 38 U/L [facility] Anion gap [Moles/Vol] 6 mmol/L Low 9 - 18 mmol/L [facility] AST [Catalytic activity/Vol] 16 U/L 13 - 35 U/L [facility] Bilirubin [Mass/Vol] 0.3 mg/dL 0.2 - 1.3 mg/dL [facility] Calcium [Mass/Vol] 9.3 mg/dL 8.5 - 10. 2 mg/dL [facility] Chloride [Moles/Vol] 102 mmol/L 97 - 105 mmol/L [facility] CO2 [Moles/Vol] 29 mmol/L 22 - 30 mmol/L [facility] Creatinine [Mass/Vol] 0.68 mg/dL 0.58 - 0.96 mg/dL [facility] Estimated Glomerular Filtration Rate 97 mL/min/1.73m >=60 mL/min/1.7 3m [facility] Glucose [Mass/Vol] 92 mg/dL 74 - 99 mg/dL [facility] Potassium [Moles/Vol] 4.2 mmol/L 3.7 - 5.1 mmol/L [facility] Protein [Mass/Vol] 6.6 g/dL 6.3 - 8.0 g/dL [facility] Sodium [Moles/Vol] 137 mmol/L 136 - 144 mmol/L [facility] Urea nitrogen [Mass/Vol] 8 mg/dL 7 - 21 mg/dL [facility] T4 FREE/FREE THYROXon 2023 Free T4 [Mass/Vol] 1.1 ng/dL 0.9 - 1.7 ng/dL [facility] TSH BLDon 06-06-2023 TSH Qn 1.210 m[IU]/L 0.270 - 4.200 mIU/L [facility] CBC W Auto Differential pane l (Bld)on 05-31-2023 Basophils (Bld) [#/Vol] 0.06 10*3/uL <0.11 k/uL [facility] Basophils/100 WBC (Bld) 3.0 % [facility] Differential cell count method Nom (Bld) Auto [facility] Eosinophils (Bld) [#/Vol] 0.12 10*3/uL <0.46 k/uL [facility] Eosinophils/100 WBC (Bld) 5.9 % [facility] Erythrocyte distribution width (RBC) [Ratio] 15.6 % High 11.5 - 15.0 % [facility] Hematocrit (Bld) [Volume fraction] 31.9 % Low 36.0 - 46.0 % [facility] Hemoglobin (Bld) [Mass/Vol] 10.9 g/dL Low 11.5 - 15.5 g/dL [facility] Immature granulocytes (Bld) [#/Vol] <0.10 k/uL [facility] Immature granulocytes/100 WBC (Bld) 0.0 % [facility] Lymphocytes (Bld) [#/Vol] 0.65 10*3/uL Low 1.00 - 4.00 k/uL [facility] Lymphocytes/100 WBC (Bld) 32.2 % [facility] MCH (RBC) [Entitic mass] 30.5 pg 26.0 - 34.0 pg [facility] MCHC (RBC) [Mass/Vol] 34.2 g/dL 30.5 - 36.0 g/dL [facility] MCV (RBC) [Entitic vol] 89.4 fL 80.0 - 100.0 fL [facility] Monocytes (Bld) [#/Vol] 0.43 10*3/uL <0.87 k/uL [facility] Monocytes/100 WBC (Bld) 21.3 % [facility] Neutrophils (Bld) [#/Vol] 0.76 10*3/uL Low 1.45 - 7.50 k/uL [facility] Neutrophils/100 WBC (Bld) 37.6 % [facility] Nucleated RBC (Bld) [#/Vol] <0.01 k/uL [facility] Nucleated RBC/100 WBC (Bld) [Ratio] 0.0 /100 WBC [facility] Platelet mean volume (Bld) [Entitic vol] 8.9 fL Low 9.0 - 12.7 fL [facility] Platelets (Bld) [#/Vol] 163 10*3/uL 150 - 400 k/uL [facility] RBC (Bld) [#/Vol] 3.57 10*6/uL Low 3.90 - 5.20 m/uL [facility] WBC (Bld) [#/Vol] 2.02 10*3/uL Low 3.70 - 11.00 k/uL [facility] Comprehensive metabolic 2000 panelon 05-31-2023 Albumin [Mass/Vol] 4.2 g/dL 3.9 - 4.9 g/dL [facility] ALP [Catalytic activity/Vol] 57 U/L 34 - 123 U/L [facility] ALT [Catalytic activity/Vol] 10 U/L 7 - 38 U/L [facility] Anion gap [Moles/Vol] 6 mmol/L Low 9 - 18 mmol/L [facility] AST [Catalytic activity/Vol] 15 U/L 13 - 35 U/L [facility] Bilirubin [Mass/Vol] 0.3 mg/dL 0.2 - 1.3 mg/dL [facility] Calcium [Mass/Vol] 9.1 mg/dL 8.5 - 10. 2 mg/dL [facility] Chloride [Moles/Vol] 102 mmol/L 97 - 105 mmol/L [facility] CO2 [Moles/Vol] 28 mmol/L 22 - 30 mmol/L [facility] Creatinine [Mass/Vol] 0.64 mg/dL 0.58 - 0.96 mg/dL [facility] Estimated Glomerular Filtration Rate 99 mL/min/1.73m >=60 mL/min/1.7 3m [facility] Glucose [Mass/Vol] 92 mg/dL 74 - 99 mg/dL [facility] Potassium [Moles/Vol] 4.3 mmol/L 3.7 - 5.1 mmol/L [facility] Protein [Mass/Vol] 6.4 g/dL 6.3 - 8.0 g/dL [facility] Sodium [Moles/Vol] 136 mmol/L 136 - 144 mmol/L [facility] Urea nitrogen [Mass/Vol] 13 mg/dL 7 - 21 mg/dL [facility] CBC W Auto Differential pane l (Bld)on 05-24-2023 Anisocytosis Ql (Bld) Present [facility] Basophils (Bld) [#/Vol] 0.02 10*3/uL <0.11 k/uL [facility] Basophils/100 WBC (Bld) 1.0 % [facility] Differential cell count method Nom (Bld) Manual [facility] Eosinophils (Bld) [#/Vol] 0.10 10*3/uL <0.46 k/uL [facility] Eosinophils/100 WBC (Bld) 6.0 % [facility] Erythrocyte distribution width (RBC) [Ratio] 14.8 % 11.5 - 15.0 % [facility] Hematocrit (Bld) [Volume fraction] 31.1 % Low 36.0 - 46.0 % [facility] Hemoglobin (Bld) [Mass/Vol] 10.7 g/dL Low 11.5 - 15.5 g/dL [facility] Lymphocytes (Bld) [#/Vol] 0.39 10*3/uL Low 1.00 - 4.00 k/uL [facility] Lymphocytes/100 WBC (Bld) 23.0 % [facility] MCH (RBC) [Entitic mass] 30.5 pg 26.0 - 34.0 pg [facility] MCHC (RBC) [Mass/Vol] 34.4 g/dL 30.5 - 36.0 g/dL [facility] MCV (RBC) [Entitic vol] 88.6 fL 80.0 - 100.0 fL [facility] Monocytes (Bld) [#/Vol] 0.26 10*3/uL <0.87 k/uL [facility] Monocytes/100 WBC (Bld) 15.0 % [facility] Neutrophils (Bld) [#/Vol] 0.94 10*3/uL Low 1.45 - 7.50 k/uL [facility] Neutrophils/100 WBC (Bld) 55.0 % [facility] Nucleated RBC (Bld) [#/Vol] <0.01 k/uL [facility] Nucleated RBC/100 WBC (Bld) [Ratio] 0.0 /100 WBC [facility] Ovalocytes LM Ql (Bld) Few [facility] Platelet mean volume (Bld) [Entitic vol] 9.3 fL 9.0 - 12.7 fL [facility] Platelets (Bld) [#/Vol] 203 10*3/uL 150 - 400 k/uL [facility] Platelets Estimate (Bld) [#/Vol] Adequate [facility] RBC (Bld) [#/Vol] 3.51 10*6/uL Low 3.90 - 5.20 m/uL [facility] RBC Fragments Few Abnormal None Seen [facility] Red Cell Morph Reviewed: see result s of individual morphologies [facility] WBC (Bld) [#/Vol] 1.70 10*3/uL Low 3.70 - 11.00 k/uL [facility] Comprehensive metabolic 2000 panelon 05-24-2023 Albumin [Mass/Vol] 4.1 g/dL 3.9 - 4.9 g/dL [facility] ALP [Catalytic activity/Vol] 51 U/L 34 - 123 U/L [facility] ALT [Catalytic activity/Vol] 13 U/L 7 - 38 U/L [facility] Anion gap [Moles/Vol] 5 mmol/L Low 9 - 18 mmol/L [facility] AST [Catalytic activity/Vol] 16 U/L 13 - 35 U/L [facility] Bilirubin [Mass/Vol] 0.3 mg/dL 0.2 - 1.3 mg/dL [facility] Calcium [Mass/Vol] 9.1 mg/dL 8.5 - 10. 2 mg/dL [facility] Chloride [Moles/Vol] 101 mmol/L 97 - 105 mmol/L [facility] CO2 [Moles/Vol] 29 mmol/L 22 - 30 mmol/L [facility] Creatinine [Mass/Vol] 0.63 mg/dL 0.58 - 0.96 mg/dL [facility] Estimated Glomerular Filtration Rate 99 mL/min/1.73m >=60 mL/min/1.7 3m [facility] Glucose [Mass/Vol] 98 mg/dL 74 - 99 mg/dL [facility] Potassium [Moles/Vol] 4.3 mmol/L 3.7 - 5.1 mmol/L [facility] Protein [Mass/Vol] 6.2 g/dL Low 6.3 - 8.0 g/dL [facility] Sodium [Moles/Vol] 135 mmol/L Low 136 - 144 mmol/L [facility] Urea nitrogen [Mass/Vol] 12 mg/dL 7 - 21 mg/dL [facility] CBC W Auto Differential pane l (Bld)on 05-17-2023 Basophils (Bld) [#/Vol] 0.05 10*3/uL <0.11 k/uL [facility] Basophils/100 WBC (Bld) 2.2 % [facility] Differential cell count method Nom (Bld) Auto [facility] Eosinophils (Bld) [#/Vol] 0.10 10*3/uL <0.46 k/uL [facility] Eosinophils/100 WBC (Bld) 4.3 % [facility] Erythrocyte distribution width (RBC) [Ratio] 14.0 % 11.5 - 15.0 % [facility] Hematocrit (Bld) [Volume fraction] 31.5 % Low 36.0 - 46.0 % [facility] Hemoglobin (Bld) [Mass/Vol] 10.9 g/dL Low 11.5 - 15.5 g/dL [facility] Immature granulocytes (Bld) [#/Vol] <0.10 k/uL [facility] Immature granulocytes/100 WBC (Bld) 0.4 % [facility] Lymphocytes (Bld) [#/Vol] 0.67 10*3/uL Low 1.00 - 4.00 k/uL [facility] Lymphocytes/100 WBC (Bld) 29.0 % [facility] MCH (RBC) [Entitic mass] 30.0 pg 26.0 - 34.0 pg [facility] MCHC (RBC) [Mass/Vol] 34.6 g/dL 30.5 - 36.0 g/dL [facility] MCV (RBC) [Entitic vol] 86.8 fL 80.0 - 100.0 fL [facility] Monocytes (Bld) [#/Vol] 0.20 10*3/uL <0.87 k/uL [facility] Monocytes/100 WBC (Bld) 8.7 % [facility] Neutrophils (Bld) [#/Vol] 1.28 10*3/uL Low 1.45 - 7.50 k/uL [facility] Neutrophils/100 WBC (Bld) 55.4 % [facility] Nucleated RBC (Bld) [#/Vol] <0.01 k/uL [facility] Nucleated RBC/100 WBC (Bld) [Ratio] 0.0 /100 WBC [facility] Platelet mean volume (Bld) [Entitic vol] 9.2 fL 9.0 - 12.7 fL [facility] Platelets (Bld) [#/Vol] 230 10*3/uL 150 - 400 k/uL [facility] RBC (Bld) [#/Vol] 3.63 10*6/uL Low 3.90 - 5.20 m/uL [facility] WBC (Bld) [#/Vol] 2.31 10*3/uL Low 3.70 - 11.00 k/uL [facility] CBC W Auto Differential pane l (Bld)on 05-16-2023 Anisocytosis Ql (Bld) Present [facility] Basophils (Bld) [#/Vol] 0.06 10*3/uL <0.11 k/uL [facility] Basophils/100 WBC (Bld) 3.0 % [facility] Differential cell count method Nom (Bld) Manual [facility] Eosinophils (Bld) [#/Vol] 0.13 10*3/uL <0.46 k/uL [facility] Eosinophils/100 WBC (Bld) 7.0 % [facility] Erythrocyte distribution width (RBC) [Ratio] 14.1 % 11.5 - 15.0 % [facility] Hematocrit (Bld) [Volume fraction] 31.9 % Low 36.0 - 46.0 % [facility] Hemoglobin (Bld) [Mass/Vol] 10.8 g/dL Low 11.5 - 15.5 g/dL [facility] Lymphocytes (Bld) [#/Vol] 0.64 10*3/uL Low 1.00 - 4.00 k/uL [facility] Lymphocytes/100 WBC (Bld) 34.0 % [facility] MCH (RBC) [Entitic mass] 29.8 pg 26.0 - 34.0 pg [facility] MCHC (RBC) [Mass/Vol] 33.9 g/dL 30.5 - 36.0 g/dL [facility] MCV (RBC) [Entitic vol] 87.9 fL 80.0 - 100.0 fL [facility] Monocytes (Bld) [#/Vol] 0.11 10*3/uL <0.87 k/uL [facility] Monocytes/100 WBC (Bld) 6.0 % [facility] Neutrophils (Bld) [#/Vol] 0.94 10*3/uL Low 1.45 - 7.50 k/uL [facility] Neutrophils/100 WBC (Bld) 50.0 % [facility] Nucleated RBC (Bld) [#/Vol] <0.01 k/uL [facility] Nucleated RBC/100 WBC (Bld) [Ratio] 0.0 /100 WBC [facility] Ovalocytes LM Ql (Bld) Few [facility] Platelet mean volume (Bld) [Entitic vol] 9.2 fL 9.0 - 12.7 fL [facility] Platelets (Bld) [#/Vol] 220 10*3/uL 150 - 400 k/uL [facility] Platelets Estimate (Bld) [#/Vol] Adequate [facility] RBC (Bld) [#/Vol] 3.63 10*6/uL Low 3.90 - 5.20 m/uL [facility] RBC Fragments Few Abnormal None Seen [facility] Red Cell Morph Reviewed: see result s of individual morphologies [facility] WBC (Bld) [#/Vol] 1.88 10*3/uL Low 3.70 - 11.00 k/uL [facility] CORTISOL BLDon 05-16-2023 Cortisol [Mass/Vol] 8.2 ug/dL 4.8 - 19 .5 ug/dL [facility] Comprehensive metabolic 2000 panelon 05-16-2023 Albumin [Mass/Vol] 4.0 g/dL 3.9 - 4.9 g/dL [facility] ALP [Catalytic activity/Vol] 49 U/L 34 - 123 U/L [facility] ALT [Catalytic activity/Vol] 14 U/L 7 - 38 U/L [facility] Anion gap [Moles/Vol] 7 mmol/L Low 9 - 18 mmol/L [facility] AST [Catalytic activity/Vol] 16 U/L 13 - 35 U/L [facility] Bilirubin [Mass/Vol] 0.3 mg/dL 0.2 - 1.3 mg/dL [facility] Calcium [Mass/Vol] 8.7 mg/dL 8.5 - 10. 2 mg/dL [facility] Chloride [Moles/Vol] 99 mmol/L 97 - 105 mmol/L [facility] CO2 [Moles/Vol] 28 mmol/L 22 - 30 mmol/L [facility] Creatinine [Mass/Vol] 0.76 mg/dL 0.58 - 0.96 mg/dL [facility] Estimated Glomerular Filtration Rate 88 mL/min/1.73m >=60 mL/min/1.7 3m [facility] Glucose [Mass/Vol] 96 mg/dL 74 - 99 mg/dL [facility] Potassium [Moles/Vol] 4.1 mmol/L 3.7 - 5.1 mmol/L [facility] Protein [Mass/Vol] 6.2 g/dL Low 6.3 - 8.0 g/dL [facility] Sodium [Moles/Vol] 134 mmol/L Low 136 - 144 mmol/L [facility] Urea nitrogen [Mass/Vol] 11 mg/dL 7 - 21 mg/dL [facility] T4 FREE/FREE THYROXon 2023 Free T4 [Mass/Vol] 1.2 ng/dL 0.9 - 1.7 ng/dL [facility] TSH BLDon 05-16-2023 TSH Qn 0.975 m[IU]/L 0.270 - 4.200 mIU/L [facility] CBC W Auto Differential pane l (Bld)on 05-10-2023 Basophils (Bld) [#/Vol] 0.05 10*3/uL <0.11 k/uL [facility] Basophils/100 WBC (Bld) 2.5 % [facility] Differential cell count method Nom (Bld) Auto [facility] Eosinophils (Bld) [#/Vol] 0.11 10*3/uL <0.46 k/uL [facility] Eosinophils/100 WBC (Bld) 5.4 % [facility] Erythrocyte distribution width (RBC) [Ratio] 13.5 % 11.5 - 15.0 % [facility] Hematocrit (Bld) [Volume fraction] 32.7 % Low 36.0 - 46.0 % [facility] Hemoglobin (Bld) [Mass/Vol] 11.2 g/dL Low 11.5 - 15.5 g/dL [facility] Immature granulocytes (Bld) [#/Vol] <0.10 k/uL [facility] Immature granulocytes/100 WBC (Bld) 0.5 % [facility] Lymphocytes (Bld) [#/Vol] 0.71 10*3/uL Low 1.00 - 4.00 k/uL [facility] Lymphocytes/100 WBC (Bld) 34.8 % [facility] MCH (RBC) [Entitic mass] 30.2 pg 26.0 - 34.0 pg [facility] MCHC (RBC) [Mass/Vol] 34.3 g/dL 30.5 - 36.0 g/dL [facility] MCV (RBC) [Entitic vol] 88.1 fL 80.0 - 100.0 fL [facility] Monocytes (Bld) [#/Vol] 0.18 10*3/uL <0.87 k/uL [facility] Monocytes/100 WBC (Bld) 8.8 % [facility] Neutrophils (Bld) [#/Vol] 0.98 10*3/uL Low 1.45 - 7.50 k/uL [facility] Neutrophils/100 WBC (Bld) 48.0 % [facility] Nucleated RBC (Bld) [#/Vol] <0.01 k/uL [facility] Nucleated RBC/100 WBC (Bld) [Ratio] 0.0 /100 WBC [facility] Platelet mean volume (Bld) [Entitic vol] 9.3 fL 9.0 - 12.7 fL [facility] Platelets (Bld) [#/Vol] 241 10*3/uL 150 - 400 k/uL [facility] RBC (Bld) [#/Vol] 3.71 10*6/uL Low 3.90 - 5.20 m/uL [facility] WBC (Bld) [#/Vol] 2.04 10*3/uL Low 3.70 - 11.00 k/uL [facility] Comprehensive metabolic 2000 panelon 05-10-2023 Albumin [Mass/Vol] 4.1 g/dL 3.9 - 4.9 g/dL [facility] ALP [Catalytic activity/Vol] 56 U/L 34 - 123 U/L [facility] ALT [Catalytic activity/Vol] 16 U/L 7 - 38 U/L [facility] Anion gap [Moles/Vol] 5 mmol/L Low 9 - 18 mmol/L [facility] AST [Catalytic activity/Vol] 18 U/L 13 - 35 U/L [facility] Bilirubin [Mass/Vol] 0.4 mg/dL 0.2 - 1.3 mg/dL [facility] Calcium [Mass/Vol] 9.0 mg/dL 8.5 - 10. 2 mg/dL [facility] Chloride [Moles/Vol] 103 mmol/L 97 - 105 mmol/L [facility] CO2 [Moles/Vol] 30 mmol/L 22 - 30 mmol/L [facility] Creatinine [Mass/Vol] 0.69 mg/dL 0.58 - 0.96 mg/dL [facility] Estimated Glomerular Filtration Rate 98 mL/min/1.73m >=60 mL/min/1.7 3m [facility] Glucose [Mass/Vol] 88 mg/dL 74 - 99 mg/dL [facility] Potassium [Moles/Vol] 4.1 mmol/L 3.7 - 5.1 mmol/L [facility] Protein [Mass/Vol] 6.4 g/dL 6.3 - 8.0 g/dL [facility] Sodium [Moles/Vol] 138 mmol/L 136 - 144 mmol/L [facility] Urea nitrogen [Mass/Vol] 13 mg/dL 7 - 21 mg/dL [facility] CBC W Auto Differential pane l (Bld)on 05-03-2023 Basophils (Bld) [#/Vol] 0.03 10*3/uL <0.11 k/uL [facility] Basophils/100 WBC (Bld) 1.0 % [facility] Differential cell count method Nom (Bld) Auto [facility] Eosinophils (Bld) [#/Vol] 0.10 10*3/uL <0.46 k/uL [facility] Eosinophils/100 WBC (Bld) 3.3 % [facility] Erythrocyte distribution width (RBC) [Ratio] 13.2 % 11.5 - 15.0 % [facility] Hematocrit (Bld) [Volume fraction] 33.2 % Low 36.0 - 46.0 % [facility] Hemoglobin (Bld) [Mass/Vol] 11.4 g/dL Low 11.5 - 15.5 g/dL [facility] Immature granulocytes (Bld) [#/Vol] <0.10 k/uL [facility] Immature granulocytes/100 WBC (Bld) 0.3 % [facility] Lymphocytes (Bld) [#/Vol] 0.74 10*3/uL Low 1.00 - 4.00 k/uL [facility] Lymphocytes/100 WBC (Bld) 24.2 % [facility] MCH (RBC) [Entitic mass] 29.9 pg 26.0 - 34.0 pg [facility] MCHC (RBC) [Mass/Vol] 34.3 g/dL 30.5 - 36.0 g/dL [facility] MCV (RBC) [Entitic vol] 87.1 fL 80.0 - 100.0 fL [facility] Monocytes (Bld) [#/Vol] 0.27 10*3/uL <0.87 k/uL [facility] Monocytes/100 WBC (Bld) 8.8 % [facility] Neutrophils (Bld) [#/Vol] 1.91 10*3/uL 1.45 - 7.50 k/uL [facility] Neutrophils/100 WBC (Bld) 62.4 % [facility] Nucleated RBC (Bld) [#/Vol] <0.01 k/uL [facility] Nucleated RBC/100 WBC (Bld) [Ratio] 0.0 /100 WBC [facility] Platelet mean volume (Bld) [Entitic vol] 9.5 fL 9.0 - 12.7 fL [facility] Platelets (Bld) [#/Vol] 232 10*3/uL 150 - 400 k/uL [facility] RBC (Bld) [#/Vol] 3.81 10*6/uL Low 3.90 - 5.20 m/uL [facility] WBC (Bld) [#/Vol] 3.06 10*3/uL Low 3.70 - 11.00 k/uL [facility] Comprehensive metabolic 2000 panelon 05-03-2023 Albumin [Mass/Vol] 4.1 g/dL 3.9 - 4.9 g/dL [facility] ALP [Catalytic activity/Vol] 65 U/L 34 - 123 U/L [facility] ALT [Catalytic activity/Vol] 13 U/L 7 - 38 U/L [facility] Anion gap [Moles/Vol] 7 mmol/L Low 9 - 18 mmol/L [facility] AST [Catalytic activity/Vol] 21 U/L 13 - 35 U/L [facility] Bilirubin [Mass/Vol] 0.2 mg/dL 0.2 - 1.3 mg/dL [facility] Calcium [Mass/Vol] 9.5 mg/dL 8.5 - 10. 2 mg/dL [facility] Chloride [Moles/Vol] 100 mmol/L 97 - 105 mmol/L [facility] CO2 [Moles/Vol] 29 mmol/L 22 - 30 mmol/L [facility] Creatinine [Mass/Vol] 0.66 mg/dL 0.58 - 0.96 mg/dL [facility] Estimated Glomerular Filtration Rate 99 mL/min/1.73m >=60 mL/min/1.7 3m [facility] Glucose [Mass/Vol] 91 mg/dL 74 - 99 mg/dL [facility] Potassium [Moles/Vol] 4.2 mmol/L 3.7 - 5.1 mmol/L [facility] Protein [Mass/Vol] 6.4 g/dL 6.3 - 8.0 g/dL [facility] Sodium [Moles/Vol] 136 mmol/L 136 - 144 mmol/L [facility] Urea nitrogen [Mass/Vol] 13 mg/dL 7 - 21 mg/dL [facility] CBC W Auto Differential pane l (Bld)on 04-25-2023 Basophils (Bld) [#/Vol] 0.06 10*3/uL <0.11 k/uL [facility] Basophils/100 WBC (Bld) 1.1 % [facility] Differential cell count method Nom (Bld) Auto [facility] Eosinophils (Bld) [#/Vol] 0.12 10*3/uL <0.46 k/uL [facility] Eosinophils/100 WBC (Bld) 2.2 % [facility] Erythrocyte distribution width (RBC) [Ratio] 13.2 % 11.5 - 15.0 % [facility] Hematocrit (Bld) [Volume fraction] 35.9 % Low 36.0 - 46.0 % [facility] Hemoglobin (Bld) [Mass/Vol] 12.2 g/dL 11.5 - 15.5 g/dL [facility] Immature granulocytes (Bld) [#/Vol] <0.10 k/uL [facility] Immature granulocytes/100 WBC (Bld) 0.2 % [facility] Lymphocytes (Bld) [#/Vol] 0.86 10*3/uL Low 1.00 - 4.00 k/uL [facility] Lymphocytes/100 WBC (Bld) 15.9 % [facility] MCH (RBC) [Entitic mass] 29.5 pg 26.0 - 34.0 pg [facility] MCHC (RBC) [Mass/Vol] 34.0 g/dL 30.5 - 36.0 g/dL [facility] MCV (RBC) [Entitic vol] 86.9 fL 80.0 - 100.0 fL [facility] Monocytes (Bld) [#/Vol] 0.63 10*3/uL <0.87 k/uL [facility] Monocytes/100 WBC (Bld) 11.7 % [facility] Neutrophils (Bld) [#/Vol] 3.72 10*3/uL 1.45 - 7.50 k/uL [facility] Neutrophils/100 WBC (Bld) 68.9 % [facility] Nucleated RBC (Bld) [#/Vol] <0.01 k/uL [facility] Nucleated RBC/100 WBC (Bld) [Ratio] 0.0 /100 WBC [facility] Platelet mean volume (Bld) [Entitic vol] 9.1 fL 9.0 - 12.7 fL [facility] Platelets (Bld) [#/Vol] 244 10*3/uL 150 - 400 k/uL [facility] RBC (Bld) [#/Vol] 4.13 10*6/uL 3.90 - 5.20 m/uL [facility] WBC (Bld) [#/Vol] 5.40 10*3/uL 3.70 - 11.00 k/uL [facility] CORTISOL BLDon 04-25-2023 Cortisol [Mass/Vol] 12.1 ug/dL 4.8 - 19 .5 ug/dL [facility] Comprehensive metabolic 2000 panelon 04-25-2023 Albumin [Mass/Vol] 4.5 g/dL 3.9 - 4.9 g/dL [facility] ALP [Catalytic activity/Vol] 73 U/L 34 - 123 U/L [facility] ALT [Catalytic activity/Vol] 12 U/L 7 - 38 U/L [facility] Anion gap [Moles/Vol] 7 mmol/L Low 9 - 18 mmol/L [facility] AST [Catalytic activity/Vol] 21 U/L 13 - 35 U/L [facility] Bilirubin [Mass/Vol] 0.3 mg/dL 0.2 - 1.3 mg/dL [facility] Calcium [Mass/Vol] 9.6 mg/dL 8.5 - 10. 2 mg/dL [facility] Chloride [Moles/Vol] 99 mmol/L 97 - 105 mmol/L [facility] CO2 [Moles/Vol] 30 mmol/L 22 - 30 mmol/L [facility] Creatinine [Mass/Vol] 0.71 mg/dL 0.58 - 0.96 mg/dL [facility] Estimated Glomerular Filtration Rate 96 mL/min/1.73m >=60 mL/min/1.7 3m [facility] Glucose [Mass/Vol] 95 mg/dL 74 - 99 mg/dL [facility] Potassium [Moles/Vol] 4.2 mmol/L 3.7 - 5.1 mmol/L [facility] Protein [Mass/Vol] 6.9 g/dL 6.3 - 8.0 g/dL [facility] Sodium [Moles/Vol] 136 mmol/L 136 - 144 mmol/L [facility] Urea nitrogen [Mass/Vol] 14 mg/dL 7 - 21 mg/dL [facility] T4 FREE/FREE THYROXon 2023 Free T4 [Mass/Vol] 1.2 ng/dL 0.9 - 1.7 ng/dL [facility] TSH BLDon 04-25-2023 TSH Qn 2.160 m[IU]/L 0.270 - 4.200 mIU/L [facility] BREAST MARKERSon 04-24-2023 BREAST BIOMARKER Normal [facility] Comment on above: Order Comment: Speci men Type: TISSUE SPECIMEN Ordering Facility: [facility] Address: [address] [place] [address] Result Comment: [address] [employer] RESULTS: Estrogen Receptor (ER) Negative <1% Stain intensity: not applicable Internal controls: present and stained as expected External controls: appropriately stained Progesterone Receptor (VA) Negative <1% Stain intensity: not applicable Internal controls: absent External controls: appropriately stained HER2 (ERBB2) IMMUNOHISTOCHEMISTRY ASSAY Interpretation: NEGATIVE for HER2 overexpression Score: 0 Percentage of cells with uniform intense complete membrane staining: NA (reported for 2+ and 3+ scores only) Block Number: [id number] Block A1 Tissue Analyzed: Invasive carcinoma Tumor Grade: Grade 3 Specimen fixative: 10% neutral buffered formalin Length of fixation: >6 and <72 hours Cold ischemia time: 0 min(s) Latest ASCO/CAP guidelines for fixation met: yes Reference Range for Hormone Receptors: Staining for VA of greater than or equal to 1% of the tumor cells is considered positive. Staining for ER of 1-10% of the tumor cells is considered low positive. Staining for ER of greater than 10% of the tumor cells is considered positive. Staining for ER or VA of less than 1% is considered negative. Reference Ranges for HER2 (ERBB2) immunohistochemistry: Positive (3+): Complete, intense circumferential membrane staining in >10% of tumor cells Equivocal (2+): Weak to moderate complete membrane staining observed in >10% of tumor cells Negative (1+): Incomplete, faint membrane staining in >10% of tumor cells Negative (0): No staining or incomplete faint membrane staining in Interpretation comments: Consideration of follow-up testing for HER2 (ERBB2) status by fluorescence in situ hybridization (FISH) for all equivocal (2+) results is recommended and will be ordered as a reflex test if FISH was not a testing methodology already employed. Note for ER low results For malignancy with a low level (1%-10%) of ER expression by immunohistochemistry, there are limited data on the overall benefit of endocrine therapies for a patient with low level (1%-10%) ER expression, but they currently suggest possible benefit, so patients are considered eligible for endocrine treatment. There are data that indicate invasive cancers with these results are heterogeneous in both behavior and biology and often have gene expression profiles more similar to ER-negative cancers. Estrogen and Progesterone Receptor Testing in Breast Cancer: [employer] Society of Clinical Oncology/College of Stateless Pathologists Guideline Update. MANSOOR Hensley, Kenneth GALO, et al., Arch Pathol Lab Med. 2019Apr 06. METHODS: Estrogen Receptor: Food and Drug Administration (FDA) cleared: [facility], [place], [place] Primary Antibody: SP1 Progesterone Receptor: FDA cleared: [facility], [place], [place] Primary Antibody: IE2 HER2 (ERBB2) by IHC: FDA cleared: [facility], [place], [place] Primary Antibody:4B5 The hormone receptor tests were performed and reported in accordance with the guidelines approved by the [employer] Society of Clinical Oncologists and the College of Stateless Pathologists. Shellie KH, et al. Estrogen and Progesterone Receptor Testing in Breast Cancer: [employer] Society of Clinical Oncologists and the College of Stateless Pathologists Guideline Update. Arch Pathol Lab Med. 2019;144(5):545-563. PMID: [id number]. The hormone receptor assays have been internally validated on decalcified tissues (for [facility] only). Estrogen and progesterone receptor results are valid if tissue was processed according to ASCO/CAP guidelines. Antibody and Detection System: [employer] anti-HER2 rabbit monoclonal antibody (clone 4B5), [employer] Confirm anti-estrogen receptor rabbit monoclonal antibody (clone SP1) and [employer] anti-progesterone receptor rabbit monoclonal antibody (clone IE2) detected with the [employer] UltraView Univeral DAB Detection Kit (indirect biotin-free detection), [employer], [place], [place]. Control Slides: Cell line controls with high, equivocal, low and negative HER2 protein expression, along with known positive control tissue as well as the patient's tissue are evaluated for HER2 expression. A separate slide of the patient's tissue is similarly processed without antibody (negative control); slides were reviewed and showed appropriate staining. The HER2 immunohistochemistry assay was developed, validated, scored, and reported in accordance with the guidelines approved by the [employer] Society of Clinical Oncologists and the College of Stateless Pathologists. Aleisha SALEH et al. Arch Pathol Lab Med. 2018;1379(9) The HER2 assay has not been validated on decalcified tissues. Results should be interpreted with caution given the possibility of false negative results on decalcified specimens. Laboratory Developed Test (LDT) Disclaimer: Performance characteristics of immunohistochemical, immunofluorescent and chromogenic in-situ hybridization tests have been determined by the perform (more content not included)... Performed By: #### L [id number] #### [facility] CLIA [id number] [facility] [facility] DIAGNOSTIC BILon 024 [facility] DIAGNOSTIC TARAH * * *Final Report* * * DATE OF EXAM: Apr 24 2023 2:40PM RHW 0620 - [facility] DIAGNOSTIC TARAH / PROCEDURE REASON: POST ULTRASOUND BIOPSY, BILATERAL BREAST * * * * Physician Interpretation * * * * #[id number] - [facility] DIAGNOSTIC TARAH BILATERAL DIGITAL DIAGNOSTIC MAMMOGRAM WITH CAD: 04/24/2023 HISTORY: Post Ultrasound Biopsy, Bilateral Breast. RESULT: TECHNIQUE: The study was acquired using full field digital technology and interpreted from soft copy. Current study was also evaluated with a Computer Aided Detection (CAD). Comparison is made to exam dated: 04/17/2023 mammogram - [facility]. The breasts are almost entirely fatty. There is a marker clip in the appropriate position in the right breast upper inner aspect middle depth. This marker clip placement is at the biopsy site. This correlates with ultrasound findings, area of clinical concern, and the biopsy. There is a marker clip in the appropriate position in the left breast upper outer aspect anterior depth. This marker clip placement is at the biopsy site. This correlates with ultrasound findings, area of clinical concern, and the biopsy. IMPRESSION: POST PROCEDURE MAMMOGRAM FOR MARKER PLACEMENT There was a successful marker clip placement in the right breast upper inner aspect middle depth. There was a successful marker clip placement in the left breast upper outer aspect anterior depth. Yael saul/nathanael:04/24/2023 14:35:44 Mill Crane Operator(s): Mary Ellen Sams, [facility] Mammogram BI-RADS: Post-procedure mammogram for marker placement Multiple national specialty organizations have released breast cancer screening guidelines for women at average risk for developing breast cancer - guidelines that are based on both evidence and opinion, yet differ on when to start and how often to screen for breast cancer. With representation from Breast Imaging, Internal Medicine, Women's Health, Family Medicine, and Medical/Surgical Oncology, the [facility] has carefully reviewed the data and reached the following consensus: 1) All women should engage in shared decision-making with their providers to decide when to start and how often to screen; 2) All women should have the opportunity to start screening mammography at age 40; 3) For women ages 45-55, we recommend annual screening mammograms; 4) For women ages 55 and over, we support both the transition from an annual to a biennial interval if this aligns more with patient's values and preferences, or continuation with annual screening; 5) All women should discuss with their providers when to stop screening mammograms. 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: Nathanael Transcribe Date/Time: Apr 24 2023 2:10P Dictated by : YAEL MARSHALL MD This examination was interpreted and the report reviewed and electronically signed by: YAEL MARSHALL MD on Apr 24 2023 2:35PM EST [id number] [facility] US BIOPSY BREAST LTon [facility] US BIOPSY BREAST LT * * *Final Report* * * DATE OF EXAM: Apr 24 2023 2:12PM RHW 0597 - [facility] US BIOPSY BREAST LT / PROCEDURE REASON: Mass of upper outer quadrant of left breast * * * * Physician Interpretation * * * * #[id number] - [facility] US BIOPSY BREAST LT ULTRASOUND GUIDED BIOPSY LEFT BREAST WITH MARKING DEVICE INSERTED: 04/24/2023 HISTORY: Mass Of Upper Outer Quadrant Of Left Breast. Correlation is made to exams dated: 04/17/2023 mammogram, 04/17/2023 ultrasound - [facility], 04/17/2023 ultrasound - [facility], 04/24/2023 ultrasound - [facility], and 04/17/2023 mammogram - [facility]. PATIENT CONSENT: The risks, benefits and alternatives were discussed with the patient. Verbal and written consent was obtained. The patient's name and date of were verified. Site confirmation was done and the site marked prior to the procedure starting. Time out procedure was performed prior to beginning the procedure. An ultrasound guided biopsy using real-time ultrasound was performed for the concerning 1.8 cm irregular shaped mass located in the left breast at 1 o'clock middle depth. This was described on the previous ultrasound report. The skin was prepped in the usual manner. Local anesthetic was administered to the access site. A skin gary was made in the breast. Under ultrasound guidance, the abnormality was biopsied using a 14 gauge Bard Marquee core needle. Three core samples were obtained. Pre- and post-fire images were acquired with each pass and saved to PACS for documentation. A Twirl biopsy marking clip was placed at the [facility] site under ultrasound guidance. The core samples were placed in formalin. A sterile bandage was applied to the access site. The samples were sent to the laboratory for pathologic analysis. IMPRESSION: ULTRASOUND GUIDED BIOPSY MALIGNANT Ultrasound guided biopsy of the 1.8 cm mass in the left breast at 1 o'clock middle depth with placement of a clip was successful with no apparent post procedure complications. Pathology indicates malignant invasive ductal carcinoma (ID). Pathology results are concordant with imaging findings. A surgical excision is recommended. Anita Stinson M.D. mf/:05/01/2023 09:40:13 Mill Crane Operator(s): Bernadette Cleary, [facility] Multiple national specialty organizations have released breast cancer screening guidelines for women at average risk for developing breast cancer - guidelines that are based on both evidence and opinion, yet differ on when to start and how often to screen for breast cancer. With representation from Breast Imaging, Internal Medicine, Women's Health, Family Medicine, and Medical/Surgical Oncology, the [facility] has carefully reviewed the data and reached the following consensus: 1) All women should engage in shared decision-making with their providers to decide when to start and how often to screen; 2) All women should have the opportunity to start screening mammography at age 40; 3) For women ages 45-55, we recommend annual screening mammograms; 4) For women ages 55 and over, we support both the transition from an annual to a biennial interval if this aligns more with patient's values and preferences, or continuation with annual screening; 5) All women should discuss with their providers when to stop screening mammograms. 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: Nathanael Transcribe Date/Time: Apr 24 2023 2:05P Dictated by : ANITA STINSON MD This examination was interpreted and the report reviewed and electronically signed by: ANITA STINSON MD on May 01 2023 9:40AM EST [id number] [facility] US BIOPSY BREAST RTon [facility] US BIOPSY BREAST RT * * *Final Report* * * DATE OF EXAM: Apr 24 2023 2:12PM W 0598 - [facility] US BIOPSY BREAST RT / PROCEDURE REASON: Mass of upper inner quadrant of right breast * * * * Physician Interpretation * * * * #[id number] - [facility] US BIOPSY BREAST RT ULTRASOUND GUIDED BIOPSY RIGHT BREAST WITH MARKING DEVICE INSERTED: 04/24/2023 HISTORY: Mass Of Upper Inner Quadrant Of Right Breast. Correlation is made to exams dated: 04/24/2023 ultrasound - [facility], 04/17/2023 mammogram, 04/17/2023 ultrasound - [facility], and 04/17/2023 ultrasound - [facility]. PATIENT CONSENT: The risks, benefits and alternatives were discussed with the patient. Verbal and written consent was obtained. The patient's name and date of were verified. Site confirmation was done and the site marked prior to the procedure starting.Time out procedure was performed prior to beginning the procedure. An ultrasound guided biopsy using real-time ultrasound was performed for the concerning 1.4 cm irregular shaped mass located in the right breast at 1 o'clock middle depth. This was described on the previous ultrasound report. The skin was prepped in the usual manner. Local anesthetic was administered to the access site. A skin gary was made in the breast. Under ultrasound guidance, the abnormality was biopsied using a 14 gauge Bard Marquee core needle. Three core samples were obtained. Pre- and post-fire images were acquired with each pass and saved to PACS for documentation. A Twirl biopsy marking clip was placed at the biosy site under ultrasound guidance. The core samples were placed in formalin. A sterile bandage was applied to the access site. The samples were sent to the laboratory for pathologic analysis. IMPRESSION: ULTRASOUND GUIDED BIOPSY BENIGN Ultrasound guided biopsy of the 1.4 cm mass in the right breast at 1 o'clock middle depth with placement of a clip was successful with no apparent post procedure complications. Pathology indicates benign inflammed fibroadipose tissue with hemorrhage, stromal fibroelastosis and fat necrosis (FN). No malignancy identified. Pathology results are felt to be concordant with imaging findings. A follow-up ultrasound in 6 months is recommended to reassess the area for stability. Anita Stinson M.D. mf/:05/01/2023 09:43:14 Mill Crane Operator(s): Bernadette Cleary [facility] Multiple national specialty organizations have released breast cancer screening guidelines for women at average risk for developing breast cancer - guidelines that are based on both evidence and opinion, yet differ on when to start and how often to screen for breast cancer. With representation from Breast Imaging, Internal Medicine, Women's Health, Family Medicine, and Medical/Surgical Oncology, the [facility] has carefully reviewed the data and reached the following consensus: 1) All women should engage in shared decision-making with their providers to decide when to start and how often to screen; 2) All women should have the opportunity to start screening mammography at age 40; 3) For women ages 45-55, we recommend annual screening mammograms; 4) For women ages 55 and over, we support both the transition from an annual to a biennial interval if this aligns more with patient's values and preferences, or continuation with annual screening; 5) All women should discuss with their providers when to stop screening mammograms. 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: Nathanael Transcribe Date/Time: Apr 24 2023 2:11P Dictated by : ANITA STINSON MD This examination was interpreted and the report reviewed and electronically signed by: ANITA STINSON MD on May 01 2023 9:43AM EST [id number] [facility] US BREAST LTD LTon 04-24 [facility] US BREAST LTD LT * * *Final Report* * * DATE OF EXAM: Apr 24 2023 2:12PM RHW 0593 - [facility] BREAST LTD LT / PROCEDURE REASON: Mass of upper outer quadrant of left breast * * * * Physician Interpretation * * * * #[id number] - [facility] US BREAST LTD LT LIMITED ULTRASOUND OF LEFT BREAST: 04/24/2023 HISTORY: Mass Of Upper Outer Quadrant Of Left Breast. RESULT: Comparison is made to exams dated: 04/17/2023 ultrasound, 04/17/2023 mammogram - [facility], and 04/17/2023 ultrasound - [facility]. Color flow ultrasound of the left breast was performed. Laughlin scale images of the real-time examination were reviewed. There is a 1.8 cm irregular mass in the left breast redemonstrated at 1 o'clock middle depth. This irregular mass is hypoechoic. This correlates with prior ultrasound findings. Color flow imaging demonstrates that there is internal vascularity. IMPRESSION: SUSPICIOUS FINDING - BIOPSY SHOULD BE CONSIDERED The 1.8 cm irregular mass in the left breast is suspicious of malignancy. An ultrasound guided biopsy will be performed and reported separately. Anita Stinson M.D. mf/:04/24/2023 15:43:07 Mill Crane Operator(s): Bernadette Cleary, [facility] Ultrasound BI-RADS: 4 Suspicious finding - Biopsy should be considered Multiple national specialty organizations have released breast cancer screening guidelines for women at average risk for developing breast cancer - guidelines that are based on both evidence and opinion, yet differ on when to start and how often to screen for breast cancer. With representation from Breast Imaging, Internal Medicine, Women's Health, Family Medicine, and Medical/Surgical Oncology, the [facility] has carefully reviewed the data and reached the following consensus: 1) All women should engage in shared decision-making with their providers to decide when to start and how often to screen; 2) All women should have the opportunity to start screening mammography at age 40; 3) For women ages 45-55, we recommend annual screening mammograms; 4) For women ages 55 and over, we support both the transition from an annual to a biennial interval if this aligns more with patient's values and preferences, or continuation with annual screening; 5) All women should discuss with their providers when to stop screening mammograms. 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: Nathanael Transcribe Date/Time: Apr 24 2023 2:11P Dictated by : ANITA STINSON MD This examination was interpreted and the report reviewed and electronically signed by: ANIAT STINSON MD on Apr 24 2023 3:43PM EST [id number] [facility] US BREAST LTD RTon 04-24 [facility] US BREAST LTD RT * * *Final Report* * * DATE OF EXAM: Apr 24 2023 2:12PM RHW 0594 - [facility] US BREAST LTD RT / PROCEDURE REASON: Mass of upper inner quadrant of right breast * * * * Physician Interpretation * * * * #[id number] - [facility] US BREAST LTD RT LIMITED ULTRASOUND OF RIGHT BREAST: 04/24/2023 HISTORY: Mass Of Upper Inner Quadrant Of Right Breast. RESULT: Comparison is made to exams dated: 04/17/2023 ultrasound - [facility], 04/17/2023 ultrasound - [facility], and 04/17/2023 mammogram - [facility]. Color flow ultrasound of the right breast was performed. Laughlin scale images of the real-time examination were reviewed. There is a 1.4 cm irregular mass in the right breast at 1 o'clock middle depth. This irregular mass is hypoechoic but of mixed echogenicity. This correlates with prior ultrasound findings. Color flow imaging demonstrates that there is an adjacent vascularity. IMPRESSION: SUSPICIOUS FINDING - BIOPSY SHOULD BE CONSIDERED The 1.4 cm irregular mass in the right breast is suspicious of malignancy. An ultrasound guided biopsy will be performed and reported separately. Anita Stinson M.D. mf/:04/24/2023 15:48:48 Mill Crane Operator(s): Bernadette Cleary, [facility] Ultrasound BI-RADS: 4 Suspicious finding - Biopsy should be considered Multiple national specialty organizations have released breast cancer screening guidelines for women at average risk for developing breast cancer - guidelines that are based on both evidence and opinion, yet differ on when to start and how often to screen for breast cancer. With representation from Breast Imaging, Internal Medicine, Women's Health, Family Medicine, and Medical/Surgical Oncology, the [facility] has carefully reviewed the data and reached the following consensus: 1) All women should engage in shared decision-making with their providers to decide when to start and how often to screen; 2) All women should have the opportunity to start screening mammography at age 40; 3) For women ages 45-55, we recommend annual screening mammograms; 4) For women ages 55 and over, we support both the transition from an annual to a biennial interval if this aligns more with patient's values and preferences, or continuation with annual screening; 5) All women should discuss with their providers when to stop screening mammograms. 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: Nathanael Transcribe Date/Time: Apr 24 2023 2:11P Dictated by : ANITA STINSON MD This examination was interpreted and the report reviewed and electronically signed by: ANITA STINSON MD on Apr 24 2023 3:48PM EST [id number] [facility] SURGICAL PATHOLOGYon 024 CASE REPORT [facility] Comment on above: Order Comment: Speci men Type: TISSUE SPECIMEN Ordering Facility: [facility] Address: [address] [place] [address] Result Comment: Surg [facility] Pathology Report Case: [id number] Authorizing Provider: Keila Christina DO Collected: 04/24/2023 01:26 PM Ordering Location: MR INTERVENTIONAL Received: 04/24/2023 02:23 PM RADIOLOGY Pathologist: Cy Hassan DO Specimens: A) - BREAST CORE BIOPSY LEFT, Left breast core bx, 1 o'clock 4 cm FTN, out @ 1326, formalin @ 1326 B) - BREAST CORE BIOPSY RIGHT, Right breast core bx, 1 o'clock 4 cm FTN, out @ 1345, formalin @ 1345 Performed By: #### S #### [facility] CLIA [id number] [address] [place] [id number] [facility] CLINICAL HISTORY [facility] Comment on above: Order Comment: Speci men Type: TISSUE SPECIMEN Ordering Facility: [facility] Address: [address] [place], [place] [id number] Result Comment: Left -Unspecified lump in the left breast, upper outer quadrant [N63.21] Right-Unspecified lump in the right breast, upper inner quadrant [N63.12] Performed By: #### S #### [facility] CLIA [id number] [address] [place], [place] [id number] [facility] DIAGNOSIS COMMENT Normal [facility] Comment on above: Order Comment: [place] villarreal Type: TISSUE SPECIMEN Ordering Facility: [facility] Address: [address] [place] [address] Result Comment: A. I mmunohistochemical stains are performed on the block at [facility] to further characterize the process and demonstrate the following (valid controls): Tumor cells stain negatively for Cytokeratin 7 with strong positive staining for GATA3 and E-cadherin supportive of invasive ductal carcinoma. D2-40 highlights endothelial lined spaces containing tumor. Additionally, ER/VA/HER2/patricia biomarkers are performed on the block at [facility] with results reported in the final diagnosis field. Results can also be viewed under linked orders: Breast markers: [id number]. Tumor size: 5 mm maximum dimension in this limited core biopsy specimen. Modified [place] histologic score: Tubular formation, score: 3; nuclear pleomorphism, score: 3; mitoses, score: 2; total score: 8, poorly differentiated, Grade 3. B. Immunohistochemical stains are performed on the block at [facility] to further characterize the process and demonstrate the following (valid controls): Cytokeratin AE1/AE3, p63, ER all show negative staining. Morphology and immunophenotype are supportive of the diagnosis. Laboratory Developed Test (LDT) Disclaimer: Performance characteristics of immunohistochemical, immunofluorescent and chromogenic in-situ hybridization tests have been determined by the performing laboratory within [facility]???s [facility] Path[facility] and Laboratory Medicine [place] ([facility], [facility], [facility], [facility], [facility], [facility], or [facility]) in a manner consistent with CLIA requirements. One or more of these tests have not been cleared or approved by the FDA. [facility] is regulated under CLIA as qualified to perform high-complexity testing. These tests are used for clinical purposes. They should not be regarded as investigational or for research. Positive and negative controls stain appropriately. Performed By: #### S #### [facility] CLIA [id number] [address] [place] [address] FINAL DIAGNOSIS [facility] Comment on above: Order Comment: Speci men Type: TISSUE SPECIMEN Ordering Facility: [facility] Address: [address] [place] [address] Result Comment: A. L eft breast at 1 o'clock, 4 cm from the nipple, core biopsy: - INVASIVE DUCTAL CARCINOMA, POORLY DIFFERENTIATED. - Angiolymphatic invasion present. - See comment. Estrogen receptors: NEGATIVE (0) Progesterone receptors: NEGATIVE (0) HER2/patricia: NEGATIVE (0) B. Right breast at 1 o'clock, 4 cm from the nipple, core biopsy: - Inflamed fibroadipose tissue with hemorrhage, stromal fibroelastosis and fat necrosis. - No malignancy identified. - See comment. Performed By: #### S #### [facility] CLIA [id number] [address] [place] [address] FINAL PERFORMING LAB [facility] Comment on above: Order Comment: Speci men Type: TISSUE SPECIMEN Ordering Facility: [facility] Address: [address] [place] [address] Result Comment: Diag nostic interpretation performed at [place] [address] CLIA# [id number] Manager Commercial Sales: Mary Orr M.D. Performed By: #### S #### [facility] CLIA [id number] [address] [place] [address] GROSS DESCRIPTION [facility] Comment on above: Order Comment: [place] villarreal Type: TISSUE SPECIMEN Ordering Facility: [facility] Address: [address] [place] [address] Result Comment: A. B REAST CORE BIOPSY LEFT Received in formalin and designated "left breast core biopsy 1:00 4 cm FTN". The specimen consists of 3 zaman needle cores ranging in size from 1.5 x 0.2 x 0.2 cm to 1.7 x 0.2 x 0.2 cm. The specimen is entirely submitted in cassette A1. The specimen is removed from the patient on April 24, 2023 at 1326 hours and placed in formalin at 1326 hours. B. BREAST CORE BIOPSY RIGHT Received in formalin and designated "right breast core biopsy 1:00 4 cm FTN". The specimen consists of 3 zaman-red needle cores ranging in size from 1.5 x 0.2 x 0.2 cm to 1.7 x 0.2 x 0.2 cm. The specimen is entirely submitted in cassette B1. The specimen is removed from the patient on April 24, 2023 at 1345 hours and placed in formalin at 1345 hours. [place] [address] CLIA#[id number] KM 04/24/23 3:03 PM Performed By: #### S #### [facility] CLIA [id number] [address] [place] [address] [place] MICROSCOPIC DESCRIPTION [facility] Comment on above: Order Comment: [place] villarreal Type: TISSUE SPECIMEN Ordering Facility: [facility] Address: [address] [place] [address] Result Comment: Four H&E stained slides and ten IHC stained slides examined. Intradepartmental consultation with Mary Orr M.D. (part A). Performed By: #### S #### [facility] CLIA [id number] [address] [place] [address] [place] CNPFrancisca 04-18-2023 [facility]InMobi[facility] CARRIE HERBERT ([id number]) 1960 F Date Time Provider Department 04/18/23 KEILA CHRISTINA During your visit today, we recorded the following information about you: Paulian Linda 04/18/2023 11:33 AM Signed Patient called- Spoke to Ermelinda 04/17/2023. Would like to know if things are still moving forward with the biopsy. Allergies As of Date: 04/18/2023 Noted Allergy Reaction BACTRIM (SULFAMETHOXAZOLE) 12/03/2013 8 - GI Upset TRIMETHOPRIM 11/27/2019 14 - Other: See Comments Date Reviewed: 04/15/2023 Reviewed by: Kenn Hartman LPN - Fully Assessed Reason for Visit: Patient Question [7107] Cmt: Biopsy question Prescriptions as of 04/18/2023 - prochlorperazine (COMPAZINE) 10 mg tablet Take 1 tablet by mouth every 6 hours as needed (For chemotherapy induced nausea and vomiting). - lidocaine-prilocaine (EMLA) 2.5-2.5 % cream Apply 60 minutes prior to accessing port. - ALPRAZolam (XANAX) 0.5 mg tablet Take 1 tablet by mouth three times a day as needed for up to 30 days. - cimetidine (TAGAMET ORAL) Take by mouth as needed. - cholecalciferol, vitamin D3, (VITAMIN D3 ORAL) Take 1,000 Units by mouth once daily. - CALCIUM ORAL Take 800 mg by mouth once daily. - amino acids/multivitamin (MULTIVITAMIN-AMINO ACIDS ORAL) Take 1 tablet by mouth once daily. No amino acids - ondansetron orally disintegrating (ZOFRAN ODT) 4 mg disintegrating tablet Take 1 tablet by mouth every 6 hours as needed for nausea/vomiting. - Magnesium 250 mg tab Take 250 mg by mouth once daily. - B.animalis,bifid,infantis,long (PROBIOTIC 4X ORAL) Take 1 tablet by mouth once daily. - PAXIL 30 MG TAB Take 30 mg by mouth once daily. 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 CNPFrancisca 04-17-2023 [facility] Telephone (Logical Apps) CARRIE HERBERT ([id number]) 1960 F Date Time Provider Department 04/17/23 KEILA CHRISTINA During your visit today, we recorded the following information about you: Keila Christina DO 04/17/2023 2:44 PM Signed Called patient. 2nd look US shows a LEFT breast mass @ 1:00 and a RIGHT breast mass @ 1:00 Biopsy of both masses recommended. Orders placed. [facility] Cc:Dr. Zhu Allergies As of Date: 04/17/2023 Noted Allergy Reaction BACTRIM (SULFAMETHOXAZOLE) 12/03/2013 8 - GI Upset TRIMETHOPRIM 11/27/2019 14 - Other: See Comments Date Reviewed: 04/15/2023 Reviewed by: Kenn Hartman LPN - Fully Assessed Reason for Visit: Results [95] Prescriptions as of 04/18/2023 - prochlorperazine (COMPAZINE) 10 mg tablet Take 1 tablet by mouth every 6 hours as needed (For chemotherapy induced nausea and vomiting). - lidocaine-prilocaine (EMLA) 2.5-2.5 % cream Apply 60 minutes prior to accessing port. - ALPRAZolam (XANAX) 0.5 mg tablet Take 1 tablet by mouth three times a day as needed for up to 30 days. - cimetidine (TAGAMET ORAL) Take by mouth as needed. - cholecalciferol, vitamin D3, (VITAMIN D3 ORAL) Take 1,000 Units by mouth once daily. - CALCIUM ORAL Take 800 mg by mouth once daily. - amino acids/multivitamin (MULTIVITAMIN-AMINO ACIDS ORAL) Take 1 tablet by mouth once daily. No amino acids - ondansetron orally disintegrating (ZOFRAN ODT) 4 mg disintegrating tablet Take 1 tablet by mouth every 6 hours as needed for nausea/vomiting. - Magnesium 250 mg tab Take 250 mg by mouth once daily. - B.animalis,bifid,infantis,long (PROBIOTIC 4X ORAL) Take 1 tablet by mouth once daily. - PAXIL 30 MG TAB Take 30 mg by mouth once daily. 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 Basophil percentageOrdered B y: Hellen Zhu on 04-09-2023 Basophil percentage < 1.0 mg/dL 0.55-1.02 [facility] No Panel InformationOrdered By: Hellen Zhu on 04-09-2023 Bedside Estimated GFR (eGFR) > 60.0000 mL/min >[address] [facility] Prema 03-20-2023 CNPN Telephone (MEPRAD) CARRIE HERBERT ([id number]) 1960 F Date Time Provider Department 03/20/23 VALE CARPENTER During your visit today, we recorded the following information about you: Vale Carpenter MD 03/20/2023 11:03 AM Signed Told patient pathology of left axillary lymph node - metastatic breast cancer. Will refer patient to Dr. Zhu for further evaluation and/or treatment. I have answered all of patient's questions at this point in time, and she has no further questions. I will contact and place consultation to Dr. Zhu's office for referral Patient acknowledges the above. Lory Fuentes RN 03/21/2023 2:43 PM Signed Patient called back stating the earliest she is able to see Dr. Zhu is 04/03/23. She was hoping Dr. Carpenter would go ahead and order any needed diagnostic tests since it will be 2 weeks until that appointment. Please call patient back to clarify next steps. Thalia Harris LPN 03/21/2023 4:33 PM Signed Spoke to patient, advised patient MRI order is in the medical center. Patient is to schedule MRI. Patient verbalized understanding. Thalia Harris LPN March 21, 2023 4:32 PM Vale Carpenter MD 1 hour ago (2:52 PM) I will place order for MRI breast, she can call to schedule. 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 - CALCIUM ORAL Take 800 mg by mouth once daily. - amino acids/multivitamin (MULTIVITAMIN-AMINO ACIDS ORAL) Take by mouth. No amino acids - ondansetron orally disintegrating (ZOFRAN ODT) 4 mg disintegrating tablet Take 1 tablet by mouth every 6 hours as needed for nausea/vomiting. - cimetidine (TAGAMET) 200 mg tablet Take 200 mg by mouth four times daily. - Magnesium 250 mg tab Take 250 mg by mouth once daily. - B.animalis,bifid,infantis,long (PROBIOTIC 4X ORAL) Take by mouth once daily. - Potassium 99 mg tab Take by mouth. - PAXIL 30 MG TAB Take 30 mg by mouth once daily. Meds Comments as of 03/03/2009: Problem List As Of Date 03/20/2023 Noted Resolved CONSTIPATION NOS [K59.00] 09/19/2006 Rectal bleeding [K62.5] Encounter Status:Closed by VALE CARPENTER on 03/20/23 [facility] Basophil percentageOrdered B y: Hellen Gageelsen on 01-21-2023 Chloride [Moles/Vol] 105 mmol/L 98-[address] [facility] Cholesterol [Mass/Vol] 208 mg/dL <[address] [facility] Comment on above: <200 mg/dL Desirable 200-240 mg/dL Borderline >240 mg/dL High Risk Glucose [Mass/Vol] 106 mg/dL 74-106 [facility] Comment on above: Fasting Glucose resu lt from 100 to 125 mg/dL suggests IMPAIRED HOMEOSTASIS per A.D.A. criteria. Potassium [Moles/Vol] 4.2 mmol/L 3.5-5.[address] [facility] Sodium [Moles/Vol] 135 mmol/L 136-145 [facility] Triglyceride [Mass/Vol] 59 mg/dL <[address] [facility] Comment on above: The drugs N-Acetylcy steine and Metamizole may falsely depress this assay.Serum Triglycerides Reference Interval Normal <150 mg/dL Borderline high 150 - 199 mg/dL High 200 - 499 mg/dL Very High > or = 500 mg/dL Laboratory - Chemistry and C hemistry - challengeOrdered By: Hellen Lafleur on 01-21-2023 CO2 [Moles/Vol] 29.0 mmol/L 21.0-32.[address] [facility] Urea nitrogen/Creatinine [Mass ratio] 12.1 mg/mg 10-[address] [facility] No Panel InformationOrdered By: Hellen Lafleur on 01-21-2023 Estimated GFR (MDRD) Amer 90 mL/min >[address] [facility] Comment on above: GFR Calc Estimated GFR (MDRD) Non-Af Amer 74 mL/min >[address] [facility] Comment on above: Non- GFR Calc Vitamin D 25-Hydroxy 38.3 ng/mL [facility] Comment on above: Vitamin D 25(OH) Sta tus Range Deficiency <20 ng/mL (50nmol/L) Insufficiency 20 - 30 ng/mL (50 - 75 nmol/L) Sufficiency 30 - 100 ng/mL (75 - 250 nmol/L) Toxicity >100 ng/mL (>250 nmol/L) Serum or plasma calcium amparo urement (mass/volume)Ordered By: Hellen Lafleur on 01-21-2023 Calcium [Mass/Vol] 9.2 mg/dL 8.5-10.1 [facility] Serum or plasma cholesterol in HDL measurement (mass/volume)Ordered By: Hellen Lafleur on 01-21-2023 Cholesterol in HDL [Mass/Vol] 87 mg/dL >[address] [facility] Comment on above: The drugs N-Acetylcy steine and Metamizole may falsely depress this assay. Reference Range HDL <40 mg/dL Low HDL Cholesterol HDL >or= 60 mg/dL High HDL Cholesterol Serum or plasma cholesterol in VLDL measurement (mass/volume)Ordered By: Hellen Lafleur on 01-21-2023 Cholesterol in VLDL [Mass/Vol] 12 mg/dL 5-[address] [facility] Serum or plasma creatinine m easurement (mass/volume)Ordered By: Hellen Lafleur on 01-21-2023 Creatinine [Mass/Vol] 0.82 mg/dL 0.55-1.[address] [facility] Comment on above: The validity of the calculated GFR & GFRAA in patients over 70 years has not been determined. Clinical correlation is essential. Serum or plasma low density lipoprotein (LDL) cholesterol measurement (mass/volume)Ordered By: Hellen Lafleur on 01-21-2023 Cholesterol in LDL [Mass/Vol] 109 mg/dL 0-[address] [facility] Serum or plasma urea nitroge n measurement (mass/volume)Ordered By: Hellen Lafleur on 01-21-2023 Urea nitrogen [Mass/Vol] 10 mg/dL 7-[address] [facility] Thin prep Papanicolaou smear with manual screeningOrdered By: Hellen Lafleur on 01-21-2023 Thin prep Papanicolaou smear with manual screening 1 5-[address] [facility] Absolute lymphocyte countOrd ered By: Ken Zarco on 08-09-2022 Lymphocytes Auto (Unsp spec) [#/Vol] 1.15 10*3/uL 0.83-4.[address] [facility] Basophil percentageOrdered B y: Ken Zarco on 08-09-2022 Basophils/100 WBC (Bld) 0.8 % 0-[address] [facility] Chloride [Moles/Vol] 102 mmol/L 98-[address] [facility] Eosinophils/100 WBC (Bld) 2.5 % 0-[address] [facility] Glucose [Mass/Vol] 107 mg/dL 74-106 [facility] Comment on above: Fasting Glucose resu lt from 100 to 125 mg/dL suggests IMPAIRED HOMEOSTASIS per A.D.A. criteria. Neutrophils (Bld) [#/Vol] 2.9 10*3/uL 2.0-7.[address] [facility] Neutrophils/100 WBC (Bld) 61.4 % 47-[address] [facility] Potassium [Moles/Vol] 4.0 mmol/L 3.5-5.[address] [facility] Sodium [Moles/Vol] 136 mmol/L 136-145 [facility] WBC (Bld) [#/Vol] 4.8 10*3/uL 4.4-11.0 [facility] Blood erythrocytes count (nu mber/volume)Ordered By: Ken Zarco on 08-09-2022 RBC (Bld) [#/Vol] 4.30 10*6/uL 4.2-5.4 [facility] Blood hemoglobin measurement (mass/volume)Ordered By: Ken Zarco on 08-09-2022 Hemoglobin (Bld) [Mass/Vol] 12.5 g/dL 12.0-15.[address] [facility] Blood lymphocytes/100 leukoc ytesOrdered By: Ken Zarco on 08-09-2022 Lymphocytes/100 WBC (Bld) 24.0 % 19-[address] [facility] Blood monocytes/100 leukocyt esOrdered By: Ken Zarco on 08-09-2022 Monocytes/100 WBC (Bld) 10.9 % 0-[address] [facility] Blood platelet mean volumeOr dered By: Ken Zarco on 08-09-2022 Platelet mean volume (Bld) [Entitic vol] 9.8 fL 6.2-12.[address] [facility] Determination of erythrocyte mean corpuscular volume (MCV)Ordered By: Ken Zarco on 08-09-2022 MCV (RBC) [Entitic vol] 91.2 fL 81-[address] [facility] Hematocrit Auto (Bld) [Volum e fraction]Ordered By: Ken Zarco on 08-09-2022 Hematocrit (Bld) [Volume fraction] 39.2 % 37-[address] [facility] Laboratory - Chemistry and C hemistry - challengeOrdered By: Ken Zarco on 08-09-2022 CO2 [Moles/Vol] 27.0 mmol/L 21.0-32.[address] [facility] Urea nitrogen/Creatinine [Mass ratio] 16.6 mg/mg 10-[address] [facility] Laboratory - Hematology and Cell countsOrdered By: Ken Zarco on 08-09-2022 Erythrocyte distribution width (RBC) [Entitic vol] 44.7 fL 35.1-43.[address] [facility] Erythrocyte distribution width (RBC) [Ratio] 13.2 % 11.6-14.[address] [facility] Immature granulocytes/100 WBC (Bld) 0.400 % 0.0-0.[address] [facility] Comment on above: IG% - Immature Granu locytes (promyelocytes, myelocytes and metamyelocytes) > 1% indicates that a LEFT SHIFT is Present. MCH (RBC) [Entitic mass] 29.1 pg 27.0-32.[address] [facility] Nucleated RBC/100 WBC (Bld) [Ratio] 0 % 0-5 [facility] [Mass/Vol]Or dered By: Ken Zarco on 08-09-2022 MCHC (RBC) [Mass/Vol] 31.9 g/dL 32-[address] [facility] No Panel InformationOrdered By: Ken Zarco on 08-09-2022 Estimated GFR (MDRD) Amer 87 mL/min >[address] [facility] Comment on above: GFR Calc Estimated GFR (MDRD) Non-Af Amer 72 mL/min >[address] [facility] Comment on above: Non- GFR Calc Platelets bldOrdered By: Gillian Zarco on 08-09-2022 Platelets (Bld) [#/Vol] 282 10*3/uL 150-[address] [facility] Serum or plasma calcium amparo urement (mass/volume)Ordered By: Ken Zarco on 08-09-2022 Calcium [Mass/Vol] 8.7 mg/dL 8.5-10.1 [facility] Serum or plasma creatinine m easurement (mass/volume)Ordered By: Ken Zarco on 08-09-2022 Creatinine [Mass/Vol] 0.84 mg/dL 0.55-1.[address] [facility] Comment on above: The validity of the calculated GFR & GFRAA in patients over 70 years has not been determined. Clinical correlation is essential. Serum or plasma urea nitroge n measurement (mass/volume)Ordered By: Ken Zarco on 08-09-2022 Urea nitrogen [Mass/Vol] 14 mg/dL 10-[address] [facility] Thin prep Papanicolaou smear with manual screeningOrdered By: Ken Zarco on 08-09-2022 Thin prep Papanicolaou smear with manual screening 7 5-[address] [facility] Anesthesia Post-opon 018 HIM IP Note OR Research Associate Molecular Biology [facility] Op Noteon 04-16-2017 HIM IP Note OR Research Associate Molecular Biology [facility] Progress Noteon 04-16-2017 HIM IP Note OR Research Associate Molecular Biology [facility] HIM IP Note OR Research Associate Molecular Biology [facility] HIM IP Note OR Research Associate Molecular Biology [facility] Office Visit: UC: nasal drai nageon 09-05-2016 Documentation of current medications (procedure) Done Invalid Interpretation Code [facility] Work Phone: Protein mass conc Done [facility] Work Phone: Tobacco smoking status NHIS Never Invalid Interpretation Code [facility] Work Phone: Tobacco smoking status NHIS Never smoker [facility] Work Phone: Tobacco use [facility] Never smoker Invalid Interpretation Code [facility] Work Phone: Office Visit: UC: maxillary sinusitison 08-22-2016 Documentation of current medications (procedure) Done Invalid Interpretation Code [facility] Work Phone: Tobacco smoking status NHIS Never Invalid Interpretation Code [facility] Work Phone: Tobacco use [facility] Never smoker Invalid Interpretation Code [facility] Work Phone: Vital Signs Date Time Vital Sign Value Performing Clinician Anabella gonzalez 12-08-2024 10:24-0400 Body mass index (BMI) [Ratio] 19.86 kg/m2 Hellen [employer] DO Work Phone: [facility] 12-08-2024 10:24-0400 Body temperature 98.1 [degF] Hellen [employer] DO Work Phone: [facility] 12-08-2024 10:24-0400 Body weight 54.66 kg Hellen [employer] DO Work Phone: [facility] 12-08-2024 10:24-0400 Diastolic blood pressure 62 mm[Hg] Hellen Daniellei DO Work Phone: [facility] 12-08-2024 10:24-0400 Heart rate 71 /min Hellen [employer] Work Phone: [facility] 12-08-2024 10:24-0400 SaO2% (BldA) [Mass fraction] 100 % Hellen [employer] DO Work Phone: [facility] 12-08-2024 10:24-0400 Systolic blood pressure 109 mm[Hg] Hellen Santosi DO Work Phone: [facility] 11-24-2024 12:53-0400 Body mass index (BMI) [Ratio] 20.11 kg/m2 Treatment Wstr Work Phone: [facility] 11-24-2024 12:53-0400 Body temperature 97.81 [degF] Treatment Wstr Work Phone: [facility] 11-24-2024 12:53-0400 Body weight 55.34 kg Treatment Wstr Work Phone: [facility] 11-24-2024 12:53-0400 Diastolic blood pressure 66 mm[Hg] Treatment Wstr Work Phone: [facility] 11-24-2024 12:53-0400 Heart rate 70 /min Treatment Wstr Work Phone: [facility] 11-24-2024 12:53-0400 Respiratory rate 18 /min Treatment Wstr Work Phone: [facility] 11-24-2024 12:53-0400 SaO2% (BldA) [Mass fraction] 99 % Treatment Wstr Work Phone: [facility] 11-24-2024 12:53-0400 Systolic blood pressure 121 mm[Hg] Treatment Wstr Work Phone: [facility] 11-20-2024 15:15-0400 Body mass index (BMI) [Ratio] 20.34 kg/m2 Injection Wstr Work Phone: [facility] 11-20-2024 15:15-0400 Body temperature 98.2 [degF] Injection Wstr Work Phone: [facility] 11-20-2024 15:15-0400 Body weight 55.97 kg Injection Wstr Work Phone: [facility] 11-20-2024 15:15-0400 Diastolic blood pressure 61 mm[Hg] Injection Wstr Work Phone: [facility] 11-20-2024 15:15-0400 Heart rate 79 /min Injection Wstr Work Phone: [facility] 11-20-2024 15:15-0400 SaO2% (BldA) [Mass fraction] 98 % Injection Wstr Work Phone: [facility] 11-20-2024 15:15-0400 Systolic blood pressure 102 mm[Hg] Injection Wstr Work Phone: [facility] 11-19-2024 15:39-0400 Body temperature 98.2 [degF] Injection Wstr Work Phone: [facility] 11-18-2024 11:00-0400 Body temperature 97.39 [degF] Injection Wstr Work Phone: [facility] 11-17-2024 16:29-0400 Body temperature 98.49 [degF] Treatment Wstr Work Phone: [facility] 11-17-2024 16:29-0400 Diastolic blood pressure 64 mm[Hg] Treatment Wstr Work Phone: [facility] 11-17-2024 16:29-0400 Heart rate 74 /min Treatment Wstr Work Phone: [facility] 11-17-2024 16:29-0400 Respiratory rate 14 /min Treatment Wstr Work Phone: [facility] 11-17-2024 16:29-0400 SaO2% (BldA) [Mass fraction] 99 % Treatment Wstr Work Phone: [facility] 11-17-2024 16:29-0400 Systolic blood pressure 109 mm[Hg] Treatment Wstr Work Phone: [facility] 11-17-2024 12:00-0400 Body height 165.9 cm Treatment Wstr Work Phone: [facility] 11-17-2024 12:00-0400 Body mass index (BMI) [Ratio] 20.44 kg/m2 Treatment Wstr Work Phone: [facility] 11-17-2024 12:00-0400 Body weight 56.25 kg Treatment Wstr Work Phone: [facility] 11-16-2024 15:33-0400 Body mass index (BMI) [Ratio] 20.47 kg/m2 Hellen Santosi DO Work Phone: [facility] 11-16-2024 15:33-0400 Body temperature 97.81 [degF] Hellen Santosi DO Work Phone: [facility] 11-16-2024 15:33-0400 Body weight 55.79 kg Hellen Santosi DO Work Phone: [facility] 11-16-2024 15:33-0400 Diastolic blood pressure 63 mm[Hg] Hellen Daniellei DO Work Phone: [facility] 11-16-2024 15:33-0400 Heart rate 85 /min Hellen Santosi DO Work Phone: [facility] 11-16-2024 15:33-0400 SaO2% (BldA) [Mass fraction] 99 % Hellen Santosi DO Work Phone: [facility] 11-16-2024 15:33-0400 Systolic blood pressure 107 mm[Hg] Hellen Santosi DO Work Phone: [facility] 11-11-2024 14:40-0400 Body temperature 97.81 [degF] Mary Green MD Work Phone: [facility] 11-11-2024 14:40-0400 Heart rate 71 /min Mary Green MD Work Phone: [facility] 11-11-2024 14:40-0400 SaO2% (BldA) [Mass fraction] 99 % Mary Green MD Work Phone: [facility] 11-10-2024 12:36-0400 Body temperature 98.1 [degF] Treatment Wstr Work Phone: [facility] 11-10-2024 12:36-0400 Diastolic blood pressure 58 mm[Hg] Treatment Wstr Work Phone: [facility] 11-10-2024 12:36-0400 Heart rate 73 /min Treatment Wstr Work Phone: [facility] 11-10-2024 12:36-0400 SaO2% (BldA) [Mass fraction] 98 % Treatment Wstr Work Phone: [facility] 11-10-2024 12:36-0400 Systolic blood pressure 105 mm[Hg] Treatment Wstr Work Phone: [facility] 11-09-2024 08:47-0400 Body mass index (BMI) [Ratio] 19.89 kg/m2 Injection Wstr Work Phone: [facility] 11-09-2024 08:47-0400 Body temperature 97.9 [degF] Injection Wstr Work Phone: [facility] 11-09-2024 08:47-0400 Body weight 54.2 kg Injection Wstr Work Phone: [facility] 11-09-2024 08:47-0400 Diastolic blood pressure 60 mm[Hg] Injection Wstr Work Phone: [facility] 11-09-2024 08:47-0400 Heart rate 82 /min Injection Wstr Work Phone: [facility] 11-09-2024 08:47-0400 SaO2% (BldA) [Mass fraction] 99 % Injection Wstr Work Phone: [facility] 11-09-2024 08:47-0400 Systolic blood pressure 101 mm[Hg] Injection Wstr Work Phone: [facility] 11-06-2024 09:23-0400 Body temperature 97.7 [degF] Lab/Port Wstr Work Phone: [facility] 11-06-2024 09:23-0400 Diastolic blood pressure 56 mm[Hg] Lab/Port Wstr Work Phone: [facility] 11-06-2024 09:23-0400 Heart rate 82 /min Lab/Port Wstr Work Phone: [facility] 11-06-2024 09:23-0400 Respiratory rate 18 /min Lab/Port Wstr Work Phone: [facility] 11-06-2024 09:23-0400 SaO2% (BldA) [Mass fraction] 99 % Lab/Port Wstr Work Phone: [facility] 11-06-2024 09:23-0400 Systolic blood pressure 107 mm[Hg] Lab/Port Wstr Work Phone: [facility] 11-05-2024 15:37-0400 Body mass index (BMI) [Ratio] 20.14 kg/m2 Injection Wstr Work Phone: [facility] 11-05-2024 15:37-0400 Body temperature 97.7 [degF] Injection Wstr Work Phone: [facility] 11-05-2024 15:37-0400 Body weight 54.88 kg Injection Wstr Work Phone: [facility] 11-05-2024 15:37-0400 Diastolic blood pressure 60 mm[Hg] Injection Wstr Work Phone: [facility] 11-05-2024 15:37-0400 Heart rate 81 /min Injection Wstr Work Phone: [facility] 11-05-2024 15:37-0400 SaO2% (BldA) [Mass fraction] 97 % Injection Wstr Work Phone: [facility] 11-05-2024 15:37-0400 Systolic blood pressure 99 mm[Hg] Injection Wstr Work Phone: [facility] 11-04-2024 13:13-0400 Body height 165.1 cm Mary Green MD Work Phone: [facility] 11-04-2024 13:13-0400 Body mass index (BMI) [Ratio] 20.3 kg/m2 Mary Green MD Work Phone: [facility] 11-04-2024 13:13-0400 Body temperature 98.2 [degF] Mary Green MD Work Phone: [facility] 11-04-2024 13:13-0400 Body weight 55.34 kg Mary Green MD Work Phone: [facility] 11-04-2024 13:13-0400 Diastolic blood pressure 58 mm[Hg] Mary Green MD Work Phone: [facility] 11-04-2024 13:13-0400 Heart rate 88 /min Mary Green MD Work Phone: [facility] 11-04-2024 13:13-0400 Respiratory rate 14 /min Mary Green MD Work Phone: [facility] 11-04-2024 13:13-0400 SaO2% (BldA) [Mass fraction] 99 % Mary Green MD Work Phone: [facility] 11-04-2024 13:13-0400 Systolic blood pressure 106 mm[Hg] Mary Green MD Work Phone: [facility] 11-03-2024 13:00-0400 Body mass index (BMI) [Ratio] 20.39 kg/m2 Treatment Wstr Work Phone: [facility] 11-03-2024 13:00-0400 Body temperature 99.1 [degF] Treatment Wstr Work Phone: [facility] 11-03-2024 13:00-0400 Body weight 55.11 kg Treatment Wstr Work Phone: [facility] 11-03-2024 13:00-0400 Diastolic blood pressure 52 mm[Hg] Treatment Wstr Work Phone: [facility] 11-03-2024 13:00-0400 Heart rate 82 /min Treatment Wstr Work Phone: [facility] 11-03-2024 13:00-0400 Respiratory rate 16 /min Treatment Wstr Work Phone: [facility] 11-03-2024 13:00-0400 SaO2% (BldA) [Mass fraction] 99 % Treatment Wstr Work Phone: [facility] 11-03-2024 13:00-0400 Systolic blood pressure 99 mm[Hg] Treatment Wstr Work Phone: [facility] 11-02-2024 11:11-0400 Body temperature 99.39 [degF] Injection Wstr Work Phone: [facility] 10-28-2024 13:41-0400 Body mass index (BMI) [Ratio] 20.64 kg/m2 Melony Davis MD Work Phone: [facility] 10-28-2024 13:41-0400 Body temperature 99 [degF] Melony Davis MD Work Phone: [facility] 10-28-2024 13:41-0400 Body weight 55.79 kg Melony Davis MD Work Phone: [facility] 10-28-2024 13:41-0400 Diastolic blood pressure 68 mm[Hg] Melony Davis MD Work Phone: [facility] 10-28-2024 13:41-0400 Heart rate 71 /min Melony Davis MD Work Phone: [facility] 10-28-2024 13:41-0400 SaO2% (BldA) [Mass fraction] 99 % Melony Davis MD Work Phone: [facility] 10-28-2024 13:41-0400 Systolic blood pressure 124 mm[Hg] Melony Davis MD Work Phone: [facility] 10-23-2024 09:31-0400 Body temperature 97.81 [degF] Injection Wstr Work Phone: [facility] 10-22-2024 10:13-0400 Body temperature 98.29 [degF] Injection Wstr Work Phone: [facility] 10-21-2024 10:25-0400 Body mass index (BMI) [Ratio] 20.64 kg/m2 Injection Wstr Work Phone: [facility] 10-21-2024 10:25-0400 Body temperature 98.01 [degF] Injection Wstr Work Phone: [facility] 10-21-2024 10:25-0400 Body weight 55.79 kg Injection Wstr Work Phone: [facility] 10-21-2024 10:25-0400 Diastolic blood pressure 58 mm[Hg] Injection Wstr Work Phone: [facility] 10-21-2024 10:25-0400 Heart rate 69 /min Injection Wstr Work Phone: [facility] 10-21-2024 10:25-0400 SaO2% (BldA) [Mass fraction] 98 % Injection Wstr Work Phone: [facility] 10-21-2024 10:25-0400 Systolic blood pressure 102 mm[Hg] Injection Wstr Work Phone: [facility] 10-20-2024 08:45-0400 Body mass index (BMI) [Ratio] 20.81 kg/m2 Hellen Masci DO Work Phone: [facility] 10-20-2024 08:45-0400 Body temperature 97.11 [degF] Hellen Masci DO Work Phone: [facility] 10-20-2024 08:45-0400 Body weight 56.25 kg Hellen Masci DO Work Phone: [facility] 10-20-2024 08:45-0400 Diastolic blood pressure 61 mm[Hg] Hellen Masci DO Work Phone: [facility] 10-20-2024 08:45-0400 Heart rate 68 /min Hellen Masci DO Work Phone: [facility] 10-20-2024 08:45-0400 SaO2% (BldA) [Mass fraction] 100 % Hellen Masci DO Work Phone: [facility] 10-20-2024 08:45-0400 Systolic blood pressure 99 mm[Hg] Hellen Masci DO Work Phone: [facility] 10-13-2024 09:47-0400 Body mass index (BMI) [Ratio] 20.81 kg/m2 Treatment Wstr Work Phone: [facility] 10-13-2024 09:47-0400 Body temperature 97.81 [degF] Treatment Wstr Work Phone: [facility] 10-13-2024 09:47-0400 Body weight 56.25 kg Treatment Wstr Work Phone: [facility] 10-13-2024 09:47-0400 Diastolic blood pressure 62 mm[Hg] Treatment Wstr Work Phone: [facility] 10-13-2024 09:47-0400 Heart rate 74 /min Treatment Wstr Work Phone: [facility] 10-13-2024 09:47-0400 Respiratory rate 16 /min Treatment Wstr Work Phone: [facility] 10-13-2024 09:47-0400 SaO2% (BldA) [Mass fraction] 100 % Treatment Wstr Work Phone: [facility] 10-13-2024 09:47-0400 Systolic blood pressure 108 mm[Hg] Treatment Wstr Work Phone: [facility] 10-12-2024 15:39-0400 Body temperature 98.2 [degF] Injection Wstr Work Phone: [facility] 10-09-2024 14:10-0400 Body temperature 98.8 [degF] Injection Wstr Work Phone: [facility] 09-29-2024 09:48-0400 Body mass index (BMI) [Ratio] 20.73 kg/m2 Treatment Wstr Work Phone: [facility] 09-29-2024 09:48-0400 Body temperature 97.3 [degF] Treatment Wstr Work Phone: [facility] 09-29-2024 09:48-0400 Body weight 56.02 kg Treatment Wstr Work Phone: [facility] 09-29-2024 09:48-0400 Diastolic blood pressure 63 mm[Hg] Treatment Wstr Work Phone: [facility] 09-29-2024 09:48-0400 Heart rate 77 /min Treatment Wstr Work Phone: [facility] 09-29-2024 09:48-0400 SaO2% (BldA) [Mass fraction] 98 % Treatment Wstr Work Phone: [facility] 09-29-2024 09:48-0400 Systolic blood pressure 106 mm[Hg] Treatment Wstr Work Phone: [facility] 09-28-2024 08:40-0400 Body height 164.4 cm Yoni Mancera MD Work Phone: [facility] 09-28-2024 08:40-0400 Body mass index (BMI) [Ratio] 20.24 kg/m2 Yoni Mancera MD Work Phone: [facility] 09-28-2024 08:40-0400 Body temperature 97.81 [degF] Yoni Mancera MD Work Phone: [facility] 09-28-2024 08:40-0400 Body weight 54.7 kg Yoni Mancera MD Work Phone: [facility] 09-28-2024 08:40-0400 Diastolic blood pressure 57 mm[Hg] Yoni Mancera MD Work Phone: [facility] 09-28-2024 08:40-0400 Heart rate 69 /min Yoni Mancera MD Work Phone: [facility] 09-28-2024 08:40-0400 Respiratory rate 18 /min Yoni Mancera MD Work Phone: [facility] 09-28-2024 08:40-0400 SaO2% (BldA) [Mass fraction] 100 % Yoni Mancera MD Work Phone: [facility] 09-28-2024 08:40-0400 Systolic blood pressure 115 mm[Hg] Yoni Mancera MD Work Phone: [facility] 09-22-2024 08:08-0400 Body temperature 97.5 [degF] Treatment Wstr Work Phone: [facility] 09-22-2024 08:08-0400 Diastolic blood pressure 73 mm[Hg] Treatment Wstr Work Phone: [facility] 09-22-2024 08:08-0400 Heart rate 58 /min Treatment Wstr Work Phone: [facility] 09-22-2024 08:08-0400 SaO2% (BldA) [Mass fraction] 100 % Treatment Wstr Work Phone: [facility] 09-22-2024 08:08-0400 Systolic blood pressure 131 mm[Hg] Treatment Wstr Work Phone: [facility] 09-21-2024 15:22-0400 Body mass index (BMI) [Ratio] 20.24 kg/m2 Hellen Masci DO Work Phone: [facility] 09-21-2024 15:22-0400 Body temperature 98.49 [degF] Hellen Masci DO Work Phone: [facility] 09-21-2024 15:22-0400 Body weight 56.02 kg Hellen Masci DO Work Phone: [facility] 09-21-2024 15:22-0400 Diastolic blood pressure 82 mm[Hg] Hellen Masci DO Work Phone: [facility] 09-21-2024 15:22-0400 Heart rate 69 /min Hellen Masci DO Work Phone: [facility] 09-21-2024 15:22-0400 SaO2% (BldA) [Mass fraction] 100 % Hellen Masci DO Work Phone: [facility] 09-21-2024 15:22-0400 Systolic blood pressure 144 mm[Hg] Hellen Masci DO Work Phone: [facility] 09-08-2024 11:00-0400 Body mass index (BMI) [Ratio] 20.16 kg/m2 Treatment Wstr Work Phone: [facility] 09-08-2024 11:00-0400 Body temperature 98.6 [degF] Treatment Wstr Work Phone: [facility] 09-08-2024 11:00-0400 Body weight 55.79 kg Treatment Wstr Work Phone: [facility] 09-08-2024 11:00-0400 Diastolic blood pressure 62 mm[Hg] Treatment Wstr Work Phone: [facility] 09-08-2024 11:00-0400 Heart rate 70 /min Treatment Wstr Work Phone: [facility] 09-08-2024 11:00-0400 Respiratory rate 14 /min Treatment Wstr Work Phone: [facility] 09-08-2024 11:00-0400 SaO2% (BldA) [Mass fraction] 100 % Treatment Wstr Work Phone: [facility] 09-08-2024 11:00-0400 Systolic blood pressure 113 mm[Hg] Treatment Wstr Work Phone: [facility] 09-01-2024 11:19-0400 Body mass index (BMI) [Ratio] 20.24 kg/m2 Treatment Wstr Work Phone: [facility] 09-01-2024 11:19-0400 Body temperature 97.11 [degF] Treatment Wstr Work Phone: [facility] 09-01-2024 11:19-0400 Body weight 56.02 kg Treatment Wstr Work Phone: [facility] 09-01-2024 11:19-0400 Diastolic blood pressure 66 mm[Hg] Treatment Wstr Work Phone: [facility] 09-01-2024 11:19-0400 Heart rate 66 /min Treatment Wstr Work Phone: [facility] 09-01-2024 11:19-0400 Respiratory rate 14 /min Treatment Wstr Work Phone: [facility] 09-01-2024 11:19-0400 SaO2% (BldA) [Mass fraction] 100 % Treatment Wstr Work Phone: [facility] 09-01-2024 11:19-0400 Systolic blood pressure 118 mm[Hg] Treatment Wstr Work Phone: [facility] 08-25-2024 11:09-0400 Body temperature 97 [degF] Treatment Wstr Work Phone: [facility] 08-25-2024 11:09-0400 Diastolic blood pressure 60 mm[Hg] Treatment Wstr Work Phone: [facility] 08-25-2024 11:09-0400 Heart rate 59 /min Treatment Wstr Work Phone: [facility] 08-25-2024 11:09-0400 SaO2% (BldA) [Mass fraction] 97 % Treatment Wstr Work Phone: [facility] 08-25-2024 11:09-0400 Systolic blood pressure 111 mm[Hg] Treatment Wstr Work Phone: [facility] 08-24-2024 14:47-0400 Body mass index (BMI) [Ratio] 20.4 kg/m2 Hellen Masci DO Work Phone: [facility] 08-24-2024 14:47-0400 Body temperature 98.91 [degF] Hellen Masci DO Work Phone: [facility] 08-24-2024 14:47-0400 Body weight 56.47 kg Hellen Masci DO Work Phone: [facility] 08-24-2024 14:47-0400 Diastolic blood pressure 55 mm[Hg] Hellen Masci DO Work Phone: [facility] 08-24-2024 14:47-0400 Heart rate 65 /min Hellen Masci DO Work Phone: [facility] 08-24-2024 14:47-0400 SaO2% (BldA) [Mass fraction] 100 % Hellen Masci DO Work Phone: [facility] 08-24-2024 14:47-0400 Systolic blood pressure 109 mm[Hg] Hellen Masci DO Work Phone: [facility] 08-04-2024 10:56-0400 Body mass index (BMI) [Ratio] 20.32 kg/m2 Treatment Wstr Work Phone: [facility] 08-04-2024 10:56-0400 Body temperature 97.39 [degF] Treatment Wstr Work Phone: [facility] 08-04-2024 10:56-0400 Body weight 56.25 kg Treatment Wstr Work Phone: [facility] 08-04-2024 10:56-0400 Diastolic blood pressure 53 mm[Hg] Treatment Wstr Work Phone: [facility] 08-04-2024 10:56-0400 Heart rate 70 /min Treatment Wstr Work Phone: [facility] 08-04-2024 10:56-0400 SaO2% (BldA) [Mass fraction] 99 % Treatment Wstr Work Phone: [facility] 08-04-2024 10:56-0400 Systolic blood pressure 106 mm[Hg] Treatment Wstr Work Phone: [facility] 07-28-2024 10:46-0400 Body mass index (BMI) [Ratio] 20.32 kg/m2 Treatment Wstr Work Phone: [facility] 07-28-2024 10:46-0400 Body temperature 97.59 [degF] Treatment Wstr Work Phone: [facility] 07-28-2024 10:46-0400 Body weight 56.25 kg Treatment Wstr Work Phone: [facility] 07-28-2024 10:46-0400 Diastolic blood pressure 55 mm[Hg] Treatment Wstr Work Phone: [facility] 07-28-2024 10:46-0400 Heart rate 72 /min Treatment Wstr Work Phone: [facility] 07-28-2024 10:46-0400 SaO2% (BldA) [Mass fraction] 100 % Treatment Wstr Work Phone: [facility] 07-28-2024 10:46-0400 Systolic blood pressure 122 mm[Hg] Treatment Wstr Work Phone: [facility] 07-23-2024 14:22-0400 Body mass index (BMI) [Ratio] 20.12 kg/m2 Mary Green MD Work Phone: [facility] 07-23-2024 14:22-0400 Body temperature 97.81 [degF] Mary Green MD Work Phone: [facility] 07-23-2024 14:22-0400 Body weight 55.7 kg Mary Green MD Work Phone: [facility] 06-01-2024 13:05-0400 Body mass index (BMI) [Ratio] 20.72 kg/m2 Kala Kaba Work Phone: [facility] 06-01-2024 13:05-0400 Body temperature 98.2 [degF] Kala Kaba Work Phone: [facility] 06-01-2024 13:05-0400 Body weight 56.47 kg Kala Kaba Work Phone: [facility] 06-01-2024 13:05-0400 Diastolic blood pressure 56 mm[Hg] Kala Kaba Work Phone: [facility] 06-01-2024 13:05-0400 Heart rate 74 /min Kala Kaba Work Phone: [facility] 06-01-2024 13:05-0400 SaO2% (BldA) [Mass fraction] 99 % Kala Kaba Work Phone: [facility] 06-01-2024 13:05-0400 Systolic blood pressure 107 mm[Hg] Kala Kaba Work Phone: [facility] 04-29-2024 13:10-0500 Diastolic blood pressure 80 mm[Hg] Dr. Alec Kong MD Work Phone: [facility] 04-29-2024 13:10-0500 Heart rate 68 /min Dr. Alec Kong MD Work Phone: [facility] 04-29-2024 13:10-0500 Respiratory rate 18 /min Dr. Alec Kong MD Work Phone: [facility] 04-29-2024 13:10-0500 SaO2% (BldA) [Mass fraction] 100 % Dr. Alec Kong MD Work Phone: [facility] 04-29-2024 13:10-0500 Systolic blood pressure 134 mm[Hg] Dr. Alec Kong MD Work Phone: [facility] 02-25-2024 14:17-0500 Body temperature 97.2 [degF] Treatment Wstr Work Phone: [facility] 02-25-2024 14:17-0500 Diastolic blood pressure 50 mm[Hg] Treatment Wstr Work Phone: [facility] 02-25-2024 14:17-0500 Heart rate 76 /min Treatment Wstr Work Phone: [facility] 02-25-2024 14:17-0500 SaO2% (BldA) [Mass fraction] 98 % Treatment Wstr Work Phone: [facility] 02-25-2024 14:17-0500 Systolic blood pressure 108 mm[Hg] Treatment Wstr Work Phone: [facility] 02-24-2024 14:08-0500 Body mass index (BMI) [Ratio] 20.14 kg/m2 Hellen Masci DO Work Phone: [facility] 02-24-2024 14:08-0500 Body temperature 99 [degF] Hellen Masci DO Work Phone: [facility] 02-24-2024 14:08-0500 Body weight 54.88 kg Hellen Masci DO Work Phone: [facility] 02-24-2024 14:08-0500 Diastolic blood pressure 60 mm[Hg] Hellen Masci DO Work Phone: [facility] 02-24-2024 14:08-0500 Heart rate 80 /min Hellen Masci DO Work Phone: [facility] 02-24-2024 14:08-0500 SaO2% (BldA) [Mass fraction] 97 % Hellen Masci DO Work Phone: [facility] 02-24-2024 14:08-0500 Systolic blood pressure 103 mm[Hg] Hellen Zhu DO Work Phone: [facility] 02-24-2024 14:01-0500 Body mass index (BMI) [Ratio] 20.14 kg/m2 Lab/Port Wstr Work Phone: [facility] 02-24-2024 14:010500 Body weight 54.88 kg Lab/Port Wstr Work Phone: [facility] 01-14-2024 14:29-0400 Body temperature 98.1 [degF] Treatment Wstr Work Phone: [facility] 01-14-2024 14:29-0400 Diastolic blood pressure 59 mm[Hg] Treatment Wstr Work Phone: [facility] 01-14-2024 14:29-0400 Heart rate 68 /min Treatment Wstr Work Phone: [facility] 01-14-2024 14:29-0400 Respiratory rate 16 /min Treatment Wstr Work Phone: [facility] 01-14-2024 14:29-0400 SaO2% (BldA) [Mass fraction] 98 % Treatment Wstr Work Phone: [facility] 01-14-2024 14:29-0400 Systolic blood pressure 104 mm[Hg] Treatment Wstr Work Phone: [facility] 01-13-2024 13:24-0400 Body mass index (BMI) [Ratio] 20.47 kg/m2 Kala Murdockight Work Phone: [facility] 01-13-2024 13:24-0400 Body temperature 97.5 [degF] Kala Murdockight Work Phone: [facility] 01-13-2024 13:24-0400 Body weight 55.79 kg Kala Kaba Work Phone: [facility] 01-13-2024 13:24-0400 Diastolic blood pressure 64 mm[Hg] Kala Kaba Work Phone: [facility] 01-13-2024 13:24-0400 Heart rate 62 /min Kala Kaba Work Phone: [facility] 01-13-2024 13:24-0400 SaO2% (BldA) [Mass fraction] 100 % Kala Kaba Work Phone: [facility] 01-13-2024 13:24-0400 Systolic blood pressure 111 mm[Hg] Kala Kaba Work Phone: [facility] 12-23-2023 14:41-0400 Body temperature 98.01 [degF] Melony Davis MD Work Phone: [facility] 12-23-2023 14:41-0400 Diastolic blood pressure 60 mm[Hg] Melony Davis MD Work Phone: [facility] 12-23-2023 14:41-0400 Heart rate 60 /min Melony Davis MD Work Phone: [facility] 12-23-2023 14:41-0400 Respiratory rate 15 /min Melony Davis MD Work Phone: [facility] 12-23-2023 14:41-0400 SaO2% (BldA) [Mass fraction] 99 % Melony Davis MD Work Phone: [facility] 12-23-2023 14:41-0400 Systolic blood pressure 114 mm[Hg] Melony Davis MD Work Phone: [facility] 12-17-2023 14:56-0400 Body temperature 97.9 [degF] Melony Davis MD Work Phone: [facility] 12-17-2023 14:56-0400 Diastolic blood pressure 51 mm[Hg] Melony Davis MD Work Phone: [facility] 12-17-2023 14:56-0400 Heart rate 63 /min Melony Davis MD Work Phone: [facility] 12-17-2023 14:56-0400 SaO2% (BldA) [Mass fraction] 99 % Melony Davis MD Work Phone: [facility] 12-17-2023 14:56-0400 Systolic blood pressure 97 mm[Hg] Melony Davis MD Work Phone: [facility] 12-10-2023 14:44-0400 Body temperature 97.7 [degF] Melony Davis MD Work Phone: [facility] 12-10-2023 14:44-0400 Diastolic blood pressure 64 mm[Hg] Melony Davis MD Work Phone: [facility] 12-10-2023 14:44-0400 Heart rate 67 /min Melony Davis MD Work Phone: [facility] 12-10-2023 14:44-0400 SaO2% (BldA) [Mass fraction] 100 % Melony Davis MD Work Phone: [facility] 12-10-2023 14:44-0400 Systolic blood pressure 108 mm[Hg] Melony Davis MD Work Phone: [facility] 12-03-2023 14:37-0400 Body temperature 98.1 [degF] Melony Davis MD Work Phone: [facility] 12-03-2023 14:37-0400 Diastolic blood pressure 58 mm[Hg] Melony Davis MD Work Phone: [facility] 12-03-2023 14:37-0400 Heart rate 65 /min Melony Davis MD Work Phone: [facility] 12-03-2023 14:37-0400 SaO2% (BldA) [Mass fraction] 98 % eMlony Davis MD Work Phone: [facility] 12-03-2023 14:37-0400 Systolic blood pressure 106 mm[Hg] Melony Davis MD Work Phone: [facility] 12-02-2023 14:09-0400 Body mass index (BMI) [Ratio] 20.14 kg/m2 Hellen Masci DO Work Phone: [facility] 12-02-2023 14:090400 Body temperature 98.71 [degF] Hellen Santosi DO Work Phone: [facility] 12-02-2023 14:090400 Body weight 54.88 kg Hellen Santosi DO Work Phone: [facility] 12-02-2023 14:090400 Diastolic blood pressure 57 mm[Hg] Hellen Santosi DO Work Phone: [facility] 12-02-2023 14:090400 Heart rate 69 /min Hellen Santosi DO Work Phone: [facility] 12-02-2023 14:090400 SaO2% (BldA) [Mass fraction] 99 % Hellen Zhu DO Work Phone: [facility] 12-02-2023 14:09-0400 Systolic blood pressure 103 mm[Hg] Hellen Zhu DO Work Phone: [facility] 12-02-2023 14:00-0400 Body mass index (BMI) [Ratio] 20.22 kg/m2 Lab/Port Wstr Work Phone: [facility] 12-02-2023 14:00-0400 Body weight 55.11 kg Lab/Port Wstr Work Phone: [facility] 11-26-2023 14:42-0400 Body temperature 97.81 [degF] Melony Davis MD Work Phone: [facility] 11-26-2023 14:42-0400 Diastolic blood pressure 65 mm[Hg] Melony Davis MD Work Phone: [facility] 11-26-2023 14:42-0400 Heart rate 65 /min Melony Davis MD Work Phone: [facility] 11-26-2023 14:42-0400 SaO2% (BldA) [Mass fraction] 100 % Melony Davis MD Work Phone: [facility] 11-26-2023 14:42-0400 Systolic blood pressure 115 mm[Hg] Melony Davis MD Work Phone: [facility] 11-19-2023 14:54-0400 Body mass index (BMI) [Ratio] 20.22 kg/m2 Melony Davis MD Work Phone: [facility] 11-19-2023 14:54-0400 Body temperature 97.9 [degF] Melony Davis MD Work Phone: [facility] 11-19-2023 14:54-0400 Body weight 55.11 kg Melony Davis MD Work Phone: [facility] 11-19-2023 14:54-0400 Diastolic blood pressure 59 mm[Hg] Melony Davis MD Work Phone: [facility] 11-19-2023 14:54-0400 Heart rate 65 /min Melony Davis MD Work Phone: [facility] 11-19-2023 14:54-0400 Respiratory rate 16 /min Melony Davis MD Work Phone: [facility] 11-19-2023 14:54-0400 SaO2% (BldA) [Mass fraction] 98 % Melony Davis MD Work Phone: [facility] 11-19-2023 14:54-0400 Systolic blood pressure 117 mm[Hg] Melony Davis MD Work Phone: [facility] 11-12-2023 14:42-0400 Body temperature 98.2 [degF] Melony Davis MD Work Phone: [facility] 11-12-2023 14:42-0400 Diastolic blood pressure 65 mm[Hg] Melony Daivs MD Work Phone: [facility] 11-12-2023 14:42-0400 Heart rate 64 /min Melony Davis MD Work Phone: [facility] 11-12-2023 14:42-0400 SaO2% (BldA) [Mass fraction] 99 % Melony Davis MD Work Phone: [facility] 11-12-2023 14:42-0400 Systolic blood pressure 115 mm[Hg] Melony Davis MD Work Phone: [facility] 10-23-2023 14:24-0400 Body temperature 98.8 [degF] Melony Davis MD Work Phone: [facility] 10-23-2023 14:24-0400 Diastolic blood pressure 61 mm[Hg] Melony Davis MD Work Phone: [facility] 10-23-2023 14:24-0400 Heart rate 72 /min Melony Davis MD Work Phone: [facility] 10-23-2023 14:24-0400 SaO2% (BldA) [Mass fraction] 98 % Melony Davis MD Work Phone: [facility] 10-23-2023 14:24-0400 Systolic blood pressure 104 mm[Hg] Melony Davis MD Work Phone: [facility] 10-22-2023 13:17-0400 Body mass index (BMI) [Ratio] 19.72 kg/m2 Treatment Wstr Work Phone: [facility] 10-22-2023 13:17-0400 Body temperature 98.4 [degF] Treatment Wstr Work Phone: [facility] 10-22-2023 13:17-0400 Body weight 53.75 kg Treatment Wstr Work Phone: [facility] 10-22-2023 13:17-0400 Diastolic blood pressure 63 mm[Hg] Treatment Wstr Work Phone: [facility] 10-22-2023 13:17-0400 Heart rate 76 /min Treatment Wstr Work Phone: [facility] 10-22-2023 13:17-0400 Respiratory rate 18 /min Treatment Wstr Work Phone: [facility] 10-22-2023 13:17-0400 Systolic blood pressure 99 mm[Hg] Treatment Wstr Work Phone: [facility] 10-18-2023 15:59-0400 Body mass index (BMI) [Ratio] 19.8 kg/m2 Hellen Daniellei DO Work Phone: [facility] 10-18-2023 15:59-0400 Body temperature 97.7 [degF] Hellen Masci DO Work Phone: [facility] 10-18-2023 15:59-0400 Body weight 53.98 kg Hellen Masci DO Work Phone: [facility] 10-18-2023 15:59-0400 Diastolic blood pressure 84 mm[Hg] Hellen Masci DO Work Phone: [facility] 10-18-2023 15:59-0400 Heart rate 60 /min Hellen Masci DO Work Phone: [facility] 10-18-2023 15:59-0400 SaO2% (BldA) [Mass fraction] 98 % Hellen Daniellei DO Work Phone: [facility] 10-18-2023 15:59-0400 Systolic blood pressure 131 mm[Hg] Hellen Daniellei DO Work Phone: [facility] 10-02-2023 13:45-0400 Body temperature 97.34 [degF] DR DEBBIE MERINO MD [facility] 10-02-2023 13:45-0400 Diastolic Blood Pressure Non-Invasive 71 mm[Hg] DR DEBBIE MERINO MD [facility] 10-02-2023 13:45-0400 Heart rate 95 /min DR DEBBIE MERINO MD [facility] 10-02-2023 13:45-0400 Respiratory rate 18 /min DR DEBBIE MERINO MD [facility] 10-02-2023 13:45-0400 Systolic Blood Pressure Non-Invasive 118 mm[Hg] DR DEBBIE MERINO MD [facility] 10-02-2023 13:22-0400 Diastolic Blood Pressure Non-Invasive 63 mm[Hg] DR DEBBIE MERINO MD [facility] 10-02-2023 13:22-0400 Heart rate 93 /min DR DEBBIE MERINO MD [facility] 10-02-2023 13:22-0400 Mean blood pressure 84 mm[Hg] DR DEBBIE MERINO MD [address] [place] [address] 10-02-2023 13:22-0400 Respiratory rate 16 /min DR DEBBIE MERINO MD [address] 10-02-2023 13:22-0400 Systolic Blood Pressure Non-Invasive 139 mm[Hg] DR DEBBIE MERINO MD [address] 10-02-2023 13:06-0400 Diastolic Blood Pressure Non-Invasive 75 mm[Hg] DR DEBBIE MERINO MD [address] 10-02-2023 13:06-0400 Heart rate 106 /min DR DEBBIE MERINO MD [address] 10-02-2023 13:06-0400 Mean blood pressure 93 mm[Hg] DR DEBBIE MERINO MD [address] 10-02-2023 13:06-0400 Respiratory rate 16 /min DR DEBBIE MERINO MD [address] [place] [address] 10-02-2023 13:06-0400 Systolic Blood Pressure Non-Invasive 146 mm[Hg] DR DEBBIE MERINO MD [address] [place] [address] 10-02-2023 12:51-0400 Body temperature 97.88 [degF] DR DEBBIE MERINO MD [facility] 10-02-2023 12:51-0400 Heart rate 101 /min DR DEBBIE MERINO MD [address] [place] [address] 10-02-2023 12:51-0400 Mean blood pressure 96 mm[Hg] DR DEBBIE MERINO MD [facility] 10-02-2023 12:45-0400 Respiratory Rate - Anes 0 br/min DR DEBBIE MERINO MD [facility] 10-02-2023 12:40-0400 Respiratory Rate - Anes 6 br/min DR DEBBIE MERINO MD [address] [place] [address] 10-02-2023 12:35-0400 Respiratory Rate - Anes 28 br/min DR DEBBIE MERINO MD [address] 10-02-2023 12:25-0400 Body temperature 97.47 [degF] DR DEBBIE MERINO MD [address] 10-02-2023 12:20-0400 Body temperature 97.34 [degF] DR DEBBIE MERINO MD [address] [place] [address] 10-02-2023 12:15-0400 Body temperature 97.14 [degF] DR DEBBIE MERINO MD [address] [place] [address] 10-02-2023 07:31-0400 Body weight 19.08 kg/m2 DR DEBBIE MERINO MD [address] [place] [address] 10-02-2023 07:22-0400 Body height 165.[address] DEBBIE MERINO MD [address] [place] [address] 10-02-2023 07:22-0400 Body temperature 96.62 [degF] DR DEBBIE MERINO MD [address] [place] [address] 10-02-2023 07:22-0400 Body weight [address] DEBBIE MERINO MD [address] [place] [address] 10-02-2023 07:22-0400 Heart rate 78 /min DR DEBBIE MERINO MD [facility] 09-23-2023 11:47-0400 Blood Pressure Cuff Size DR DEBBIE MERINO MD [facility] 09-23-2023 11:47-[address] DEBBIE MERINO MD [facility] 09-23-2023 11:47-[address] DEBBIE MERINO MD [facility] 09-23-2023 11:47-0400 Body height [address] DEBBIE MERINO MD [facility] 09-23-2023 11:47-0400 Body temperature 96.98 [degF] DR DEBBIE MERINO MD [facility] 09-23-2023 11:47-0400 Body weight 54.[address] DEBBIE MERINO MD [facility] 09-23-2023 11:47-0400 Body weight 19.61 kg/m2 DR DEBBIE MERINO MD [facility] 09-23-2023 11:47-0400 Diastolic Blood Pressure Non-Invasive 55 mm[Hg] DR DEBBIE MERINO MD [facility] 09-23-2023 11:47-0400 Heart rate 56 /min DR DEBBIE MERINO MD [facility] 09-23-2023 11:47-0400 Systolic Blood Pressure Non-Invasive 108 mm[Hg] DR DEBBIE MERINO MD [facility] 08-30-2023 12:05-0400 Body temperature 97.81 [degF] Treatment Wstr Work Phone: [facility] 08-30-2023 12:05-0400 Diastolic blood pressure 54 mm[Hg] Treatment Wstr Work Phone: [facility] 08-30-2023 12:05-0400 Heart rate 64 /min Treatment Wstr Work Phone: [facility] 08-30-2023 12:05-0400 SaO2% (BldA) [Mass fraction] 99 % Treatment Wstr Work Phone: [facility] 08-30-2023 12:05-0400 Systolic blood pressure 102 mm[Hg] Treatment Wstr Work Phone: [facility] 08-29-2023 11:30-0400 Body mass index (BMI) [Ratio] 20.14 kg/m2 Hellen Masci DO Work Phone: [facility] 08-29-2023 11:30-0400 Body temperature 98.71 [degF] Hellen Masci DO Work Phone: [facility] 08-29-2023 11:30-0400 Body weight 54.9 kg Hellen Masci DO Work Phone: [facility] 08-29-2023 11:30-0400 Diastolic blood pressure 67 mm[Hg] Hellen Masci DO Work Phone: [facility] 08-29-2023 11:30-0400 Heart rate 77 /min Hellen Masci DO Work Phone: [facility] 08-29-2023 11:30-0400 SaO2% (BldA) [Mass fraction] 99 % Hellen Masci DO Work Phone: [facility] 08-29-2023 11:30-0400 Systolic blood pressure 137 mm[Hg] Hellen Masci DO Work Phone: [facility] 08-29-2023 11:15-0400 Body mass index (BMI) [Ratio] 20.14 kg/m2 Lab/Port Wstr Work Phone: [facility] 08-29-2023 11:15-0400 Body weight 54.88 kg Lab/Port Wstr Work Phone: [facility] 08-09-2023 07:00-0400 Body temperature 97.2 [degF] Treatment Wstr Work Phone: [facility] 08-09-2023 07:00-0400 Diastolic blood pressure 54 mm[Hg] Treatment Wstr Work Phone: [facility] 08-09-2023 07:00-0400 Heart rate 68 /min Treatment Wstr Work Phone: [facility] 08-09-2023 07:00-0400 Systolic blood pressure 117 mm[Hg] Treatment Wstr Work Phone: [facility] 08-08-2023 09:52-0400 Body mass index (BMI) [Ratio] 20.05 kg/m2 Monserrat Rodriguez [employer] Work Phone: [facility] 08-08-2023 09:52-0400 Body temperature 97.59 [degF] Monserrat Rodriguez [employer] Work Phone: [facility] 08-08-2023 09:52-0400 Body weight 54.66 kg Monserrat Rodriguez [employer] Work Phone: [facility] 08-08-2023 09:52-0400 Diastolic blood pressure 64 mm[Hg] Monserrat Rodriguez [employer] Work Phone: [facility] 08-08-2023 09:52-0400 Heart rate 64 /min Monserrat Rodriguez [employer] Work Phone: [facility] 08-08-2023 09:52-0400 SaO2% (BldA) [Mass fraction] 99 % Monserrat Rodriguez [employer] Work Phone: [facility] 08-08-2023 09:52-0400 Systolic blood pressure 103 mm[Hg] Monserrat Rodriguez [employer] Work Phone: [facility] 08-08-2023 09:32-0400 Body mass index (BMI) [Ratio] 20.05 kg/m2 Lab/Port Wstr Work Phone: [facility] 08-08-2023 09:32-0400 Body weight 54.66 kg Lab/Port Wstr Work Phone: [facility] 07-19-2023 08:26-0400 Body temperature 97.81 [degF] Treatment Wstr Work Phone: [facility] 07-19-2023 08:26-0400 Diastolic blood pressure 46 mm[Hg] Treatment Wstr Work Phone: [facility] 07-19-2023 08:26-0400 Heart rate 76 /min Treatment Wstr Work Phone: [facility] 07-19-2023 08:26-0400 SaO2% (BldA) [Mass fraction] 100 % Treatment Wstr Work Phone: [facility] 07-19-2023 08:26-0400 Systolic blood pressure 110 mm[Hg] Treatment Wstr Work Phone: [facility] 07-18-2023 09:21-0400 Body mass index (BMI) [Ratio] 20.14 kg/m2 Hellen Masci DO Work Phone: [facility] 07-18-2023 09:21-0400 Body temperature 98.71 [degF] Hellen Masci DO Work Phone: [facility] 07-18-2023 09:21-0400 Body weight 54.88 kg Hellen Masci DO Work Phone: [facility] 07-18-2023 09:21-0400 Diastolic blood pressure 60 mm[Hg] Hellen Masci DO Work Phone: [facility] 07-18-2023 09:21-0400 Heart rate 74 /min Hellen Masci DO Work Phone: [facility] 07-18-2023 09:21-0400 SaO2% (BldA) [Mass fraction] 100 % Hellen Masci DO Work Phone: [facility] 07-18-2023 09:21-0400 Systolic blood pressure 98 mm[Hg] Hellen Masci DO Work Phone: [facility] 07-17-2023 14:58-0400 Body temperature 97.5 [degF] Injection Wstr Work Phone: [facility] 07-12-2023 09:01-0400 Body temperature 97.59 [degF] Treatment Wstr Work Phone: [facility] 07-12-2023 09:01-0400 Body weight 55.79 kg Treatment Wstr Work Phone: [facility] 07-12-2023 09:01-0400 Diastolic blood pressure 55 mm[Hg] Treatment Wstr Work Phone: [facility] 07-12-2023 09:01-0400 Heart rate 69 /min Treatment Wstr Work Phone: [facility] 07-12-2023 09:01-0400 Respiratory rate 16 /min Treatment Wstr Work Phone: [facility] 07-12-2023 09:01-0400 SaO2% (BldA) [Mass fraction] 100 % Treatment Wstr Work Phone: [facility] 07-12-2023 09:01-0400 Systolic blood pressure 104 mm[Hg] Treatment Wstr Work Phone: [facility] 07-11-2023 14:31-0400 Body temperature 98.8 [degF] Injection Wstr Work Phone: [facility] 07-11-2023 14:31-0400 Body weight 54.43 kg Injection Wstr Work Phone: [facility] 07-11-2023 14:31-0400 Diastolic blood pressure 63 mm[Hg] Injection Wstr Work Phone: [facility] 07-11-2023 14:31-0400 Heart rate 84 /min Injection Wstr Work Phone: [facility] 07-11-2023 14:31-0400 SaO2% (BldA) [Mass fraction] 98 % Injection Wstr Work Phone: [facility] 07-11-2023 14:31-0400 Systolic blood pressure 130 mm[Hg] Injection Wstr Work Phone: [facility] 07-10-2023 15:39-0400 Body temperature 97.7 [degF] Injection Wstr Work Phone: [facility] 07-10-2023 15:39-0400 Body weight 54.43 kg Injection Wstr Work Phone: [facility] 07-10-2023 15:39-0400 Diastolic blood pressure 52 mm[Hg] Injection Wstr Work Phone: [facility] 07-10-2023 15:39-0400 Heart rate 75 /min Injection Wstr Work Phone: [facility] 07-10-2023 15:39-0400 SaO2% (BldA) [Mass fraction] 100 % Injection Wstr Work Phone: [facility] 07-10-2023 15:39-0400 Systolic blood pressure 104 mm[Hg] Injection Wstr Work Phone: [facility] 07-09-2023 11:34-0400 Body temperature 98.8 [degF] Injection Wstr Work Phone: [facility] 07-09-2023 11:34-0400 Body weight 54.43 kg Injection Wstr Work Phone: [facility] 07-09-2023 11:34-0400 Diastolic blood pressure 50 mm[Hg] Injection Wstr Work Phone: [facility] 07-09-2023 11:34-0400 Heart rate 77 /min Injection Wstr Work Phone: [facility] 07-09-2023 11:34-0400 SaO2% (BldA) [Mass fraction] 98 % Injection Wstr Work Phone: [facility] 07-09-2023 11:34-0400 Systolic blood pressure 93 mm[Hg] Injection Wstr Work Phone: [facility] 07-08-2023 08:59-0400 Body temperature 97 [degF] Injection Wstr Work Phone: [facility] 07-05-2023 08:55-0400 Diastolic blood pressure 47 mm[Hg] Treatment Wstr Work Phone: [facility] 07-05-2023 08:55-0400 Heart rate 64 /min Treatment Wstr Work Phone: [facility] 07-05-2023 08:55-0400 Systolic blood pressure 107 mm[Hg] Treatment Wstr Work Phone: [facility] 07-05-2023 08:20-0400 Body temperature 97.11 [degF] Treatment Wstr Work Phone: [facility] 07-05-2023 08:20-0400 SaO2% (BldA) [Mass fraction] 99 % Treatment Wstr Work Phone: [facility] 07-04-2023 13:31-0400 Body temperature 98.49 [degF] Kala Kaba Work Phone: [facility] 07-04-2023 13:31-0400 Body weight 55.3 kg Kala Kaba Work Phone: [facility] 07-04-2023 13:31-0400 Diastolic blood pressure 55 mm[Hg] Kala Kaba Work Phone: [facility] 07-04-2023 13:31-0400 Heart rate 82 /min Kala Kaba Work Phone: [facility] 07-04-2023 13:31-0400 SaO2% (BldA) [Mass fraction] 98 % Kala Kaba Work Phone: [facility] 07-04-2023 13:31-0400 Systolic blood pressure 96 mm[Hg] Kala Kaba Work Phone: [facility] 07-04-2023 13:22-0400 Body weight 55.34 kg Lab/Port Wstr Work Phone: [facility] 07-03-2023 15:39-0400 Body temperature 98.4 [degF] Injection Wstr Work Phone: [facility] 07-01-2023 10:22-0400 Body temperature 97 [degF] Injection Wstr Work Phone: [facility] 07-01-2023 10:22-0400 Body weight 54.88 kg Injection Wstr Work Phone: [facility] 07-01-2023 10:22-0400 Diastolic blood pressure 55 mm[Hg] Injection Wstr Work Phone: [facility] 07-01-2023 10:22-0400 Heart rate 77 /min Injection Wstr Work Phone: [facility] 07-01-2023 10:22-0400 SaO2% (BldA) [Mass fraction] 97 % Injection Wstr Work Phone: [facility] 07-01-2023 10:22-0400 Systolic blood pressure 110 mm[Hg] Injection Wstr Work Phone: [facility] 06-28-2023 10:08-0400 Body temperature 97.11 [degF] Treatment Wstr Work Phone: [facility] 06-28-2023 10:08-0400 Diastolic blood pressure 60 mm[Hg] Treatment Wstr Work Phone: [facility] 06-28-2023 10:08-0400 Heart rate 75 /min Treatment Wstr Work Phone: [facility] 06-28-2023 10:08-0400 Respiratory rate 16 /min Treatment Wstr Work Phone: [facility] 06-28-2023 10:08-0400 Systolic blood pressure 99 mm[Hg] Treatment Wstr Work Phone: [facility] 06-27-2023 10:19-0400 Body temperature 97.9 [degF] Injection Wstr Work Phone: [facility] 06-27-2023 10:19-0400 Body weight 54.88 kg Injection Wstr Work Phone: [facility] 06-27-2023 10:19-0400 Diastolic blood pressure 46 mm[Hg] Injection Wstr Work Phone: [facility] 06-27-2023 10:19-0400 Heart rate 74 /min Injection Wstr Work Phone: [facility] 06-27-2023 10:19-0400 SaO2% (BldA) [Mass fraction] 99 % Injection Wstr Work Phone: [facility] 06-27-2023 10:19-0400 Systolic blood pressure 92 mm[Hg] Injection Wstr Work Phone: [facility] 06-26-2023 11:33-0400 Body temperature 97.7 [degF] Injection Wstr Work Phone: [facility] 06-25-2023 11:29-0400 Body temperature 98.4 [degF] Injection Wstr Work Phone: [facility] 06-25-2023 11:29-0400 Body weight 55.79 kg Injection Wstr Work Phone: [facility] 06-25-2023 11:29-0400 Diastolic blood pressure 62 mm[Hg] Injection Wstr Work Phone: [facility] 06-25-2023 11:29-0400 Heart rate 93 /min Injection Wstr Work Phone: [facility] 06-25-2023 11:29-0400 SaO2% (BldA) [Mass fraction] 95 % Injection Wstr Work Phone: [facility] 06-25-2023 11:29-0400 Systolic blood pressure 105 mm[Hg] Injection Wstr Work Phone: [facility] 06-24-2023 10:58-0400 Body temperature 97.2 [degF] Lab/Port Wstr Work Phone: [facility] 06-14-2023 08:56-0400 Body temperature 97.39 [degF] Treatment Wstr Work Phone: [facility] 06-14-2023 08:56-0400 Body weight 55.79 kg Treatment Wstr Work Phone: [facility] 06-14-2023 08:56-0400 Diastolic blood pressure 50 mm[Hg] Treatment Wstr Work Phone: [facility] 06-14-2023 08:56-0400 Heart rate 71 /min Treatment Wstr Work Phone: [facility] 06-14-2023 08:56-0400 Respiratory rate 18 /min Treatment Wstr Work Phone: [facility] 06-14-2023 08:56-0400 SaO2% (BldA) [Mass fraction] 99 % Treatment Wstr Work Phone: [facility] 06-14-2023 08:56-0400 Systolic blood pressure 96 mm[Hg] Treatment Wstr Work Phone: [facility] 06-07-2023 08:30-0400 Body temperature 97 [degF] Treatment Wstr Work Phone: [facility] 06-07-2023 08:30-0400 Diastolic blood pressure 42 mm[Hg] Treatment Wstr Work Phone: [facility] 06-07-2023 08:30-0400 Heart rate 70 /min Treatment Wstr Work Phone: [facility] 06-07-2023 08:30-0400 Respiratory rate 18 /min Treatment Wstr Work Phone: [facility] 06-07-2023 08:30-0400 SaO2% (BldA) [Mass fraction] 100 % Treatment Wstr Work Phone: [facility] 06-07-2023 08:30-0400 Systolic blood pressure 108 mm[Hg] Treatment Wstr Work Phone: [facility] 06-06-2023 09:29-0400 Body temperature 98.6 [degF] Hellen Masci DO Work Phone: [facility] 06-06-2023 09:29-0400 Body weight 55.79 kg Hellen Masci DO Work Phone: [facility] 06-06-2023 09:29-0400 Diastolic blood pressure 64 mm[Hg] Hellen Masci DO Work Phone: [facility] 06-06-2023 09:29-0400 Heart rate 74 /min Hellen Masci DO Work Phone: [facility] 06-06-2023 09:29-0400 SaO2% (BldA) [Mass fraction] 98 % Hellen Zhu DO Work Phone: [facility] 06-06-2023 09:29-0400 Systolic blood pressure 101 mm[Hg] Hellen Zhu DO Work Phone: [facility] 06-03-2023 10:35-0400 Body temperature 97.81 [degF] Injection Wstr Work Phone: [facility] 05-31-2023 07:55-0500 Body temperature 98.29 [degF] Treatment Wstr Work Phone: [facility] 05-31-2023 07:55-0500 Body weight 55.57 kg Treatment Wstr Work Phone: [facility] 05-31-2023 07:55-0500 Diastolic blood pressure 41 mm[Hg] Treatment Wstr Work Phone: [facility] 05-31-2023 07:55-0500 Heart rate 66 /min Treatment Wstr Work Phone: [facility] 05-31-2023 07:55-0500 SaO2% (BldA) [Mass fraction] 100 % Treatment Wstr Work Phone: [facility] 05-31-2023 07:55-0500 Systolic blood pressure 98 mm[Hg] Treatment Wstr Work Phone: [facility] 05-24-2023 09:00-0500 Body temperature 97.11 [degF] Treatment Wstr Work Phone: [facility] 05-24-2023 09:00-0500 Body weight 57.15 kg Treatment Wstr Work Phone: [facility] 05-24-2023 09:00-0500 Diastolic blood pressure 56 mm[Hg] Treatment Wstr Work Phone: [facility] 05-24-2023 09:00-0500 Heart rate 78 /min Treatment Wstr Work Phone: [facility] 05-24-2023 09:00-0500 Systolic blood pressure 108 mm[Hg] Treatment Wstr Work Phone: [facility] 05-17-2023 08:25-0500 Body temperature 97.3 [degF] Treatment Wstr Work Phone: [facility] 05-17-2023 08:25-0500 Diastolic blood pressure 42 mm[Hg] Treatment Wstr Work Phone: [facility] 05-17-2023 08:25-0500 Heart rate 66 /min Treatment Wstr Work Phone: [facility] 05-17-2023 08:25-0500 Respiratory rate 16 /min Treatment Wstr Work Phone: [facility] 05-17-2023 08:25-0500 SaO2% (BldA) [Mass fraction] 99 % Treatment Wstr Work Phone: [facility] 05-17-2023 08:25-0500 Systolic blood pressure 97 mm[Hg] Treatment Wstr Work Phone: [facility] 05-16-2023 11:26-0500 Body temperature 97.81 [degF] Fork Rodriguez [employer] Work Phone: [facility] 05-16-2023 11:26-0500 Body weight 55.57 kg Monserrat Rodriguez [employer] Work Phone: [facility] 05-16-2023 11:26-0500 Diastolic blood pressure 63 mm[Hg] Fork Rodriguez [employer] Work Phone: [facility] 05-16-2023 11:26-0500 Heart rate 66 /min Monserrat Rodriguez [employer] Work Phone: [facility] 05-16-2023 11:26-0500 SaO2% (BldA) [Mass fraction] 96 % Fork Rodriguez [employer]CUFF SETTER Work Phone: [facility] 05-16-2023 11:26-0500 Systolic blood pressure 106 mm[Hg] Fork Rodriguez [employer]FF [employer]TER Work Phone: [facility] 05-16-2023 11:10-0500 Body weight 55.57 kg Lab/Port Wstr Work Phone: [facility] 05-10-2023 08:28-0500 Body temperature 97.59 [degF] Treatment Wstr Work Phone: [facility] 05-10-2023 08:28-0500 Body weight 56.47 kg Treatment Wstr Work Phone: [facility] 05-10-2023 08:28-0500 Diastolic blood pressure 59 mm[Hg] Treatment Wstr Work Phone: [facility] 05-10-2023 08:28-0500 Heart rate 65 /min Treatment Wstr Work Phone: [facility] 05-10-2023 08:28-0500 Respiratory rate 16 /min Treatment Wstr Work Phone: [facility] 05-10-2023 08:28-0500 SaO2% (BldA) [Mass fraction] 100 % Treatment Wstr Work Phone: [facility] 05-10-2023 08:28-0500 Systolic blood pressure 98 mm[Hg] Treatment Wstr Work Phone: [facility] 05-03-2023 08:33-0500 Body temperature 97 [degF] Treatment Wstr Work Phone: [facility] 05-03-2023 08:33-0500 Body weight 55.79 kg Treatment Wstr Work Phone: [facility] 05-03-2023 08:33-0500 Diastolic blood pressure 49 mm[Hg] Treatment Wstr Work Phone: [facility] 05-03-2023 08:33-0500 Heart rate 66 /min Treatment Wstr Work Phone: [facility] 05-03-2023 08:33-0500 Systolic blood pressure 112 mm[Hg] Treatment Wstr Work Phone: [facility] 04-25-2023 08:00-0500 Body temperature 98.8 [degF] Treatment Wstr Work Phone: [facility] 04-25-2023 08:00-0500 Diastolic blood pressure 51 mm[Hg] Treatment Wstr Work Phone: [facility] 04-25-2023 08:00-0500 Heart rate 57 /min Treatment Wstr Work Phone: [facility] 04-25-2023 08:00-0500 SaO2% (BldA) [Mass fraction] 100 % Treatment Wstr Work Phone: [facility] 04-25-2023 08:00-0500 Systolic blood pressure 119 mm[Hg] Treatment Wstr Work Phone: [facility] 04-25-2023 07:53-0500 Body weight 55.57 kg Treatment Wstr Work Phone: [facility] 04-22-2023 14:01-0500 Body temperature 98.3 [degF] Dr. Hellen Lafleur Work Phone: [facility] 04-22-2023 14:01-0500 Diastolic blood pressure 56 mm[Hg] Dr. Hellen Lafleur Work Phone: [facility] 04-22-2023 14:01-0500 Heart rate 65 /min Dr. Hellen Lafleur Work Phone: [facility] 04-22-2023 14:01-0500 Respiratory rate 16 /min Dr. Hellen Lafleur Work Phone: [facility] 04-22-2023 14:01-0500 SaO2% (BldA) [Mass fraction] 100 % Dr. Hellen Lafleur Work Phone: [facility] 04-22-2023 14:01-0500 Systolic blood pressure 107 mm[Hg] Dr. Hellen Lafleur Work Phone: [facility] 04-22-2023 12:12-0500 Body height 165.[address] Hellen Lafleur Work Phone: [facility] 04-22-2023 12:12-0500 Body mass index (BMI) [Ratio] 19.8 kg/m2 Dr. Hellen Lafleur Work Phone: [facility] 04-22-2023 12:12-0500 Body weight 53.[address] Hellen Lafleur Work Phone: [facility] 04-17-2023 08:22-0500 Body mass index (BMI) [Ratio] 20.5 kg/m2 Dr. Hellen Lafleur Work Phone: [facility] 04-17-2023 08:22-0500 Body temperature 97.1 [degF] Dr. Hellen Lafleur Work Phone: [facility] 04-17-2023 08:22-0500 Body weight 55.[address] Hellen Lafleur Work Phone: [facility] 04-17-2023 08:22-0500 Diastolic blood pressure 61 mm[Hg] Dr. Hellen Lafleur Work Phone: [facility] 04-17-2023 08:22-0500 Heart rate 63 /min Dr. Hellen Lafleur Work Phone: [facility] 04-17-2023 08:22-0500 Respiratory rate 17 /min Dr. Hellen Lafleur Work Phone: [facility] 04-17-2023 08:22-0500 SaO2% (BldA) [Mass fraction] 100 % Dr. Hellen Lafleur Work Phone: [facility] 04-17-2023 08:22-0500 Systolic blood pressure 100 mm[Hg] Dr. Hellen Lafleur Work Phone: [facility] 03-12-2023 09:57-0500 Body height 163.8 cm Vale Carpenter MD Work Phone: [facility] 03-12-2023 09:57-0500 Body temperature 97.2 [degF] Vale Carpenter MD Work Phone: [facility] 03-12-2023 09:57-0500 Body weight 56.43 kg Vale Carpenter MD Work Phone: [facility] 03-12-2023 09:57-0500 Diastolic blood pressure 60 mm[Hg] Vale Carpenter MD Work Phone: [facility] 03-12-2023 09:57-0500 Heart rate 68 /min Vale Carpenter MD Work Phone: [facility] 03-12-2023 09:57-0500 SaO2% (BldA) [Mass fraction] 99 % Vale Carpenter MD Work Phone: [facility] 03-12-2023 09:57-0500 Systolic blood pressure 108 mm[Hg] Vale Carpenter MD Work Phone: [facility] 01-16-2023 10:43-0400 Body height 165.1 cm [facility] 06-19-2022 08:41-0400 Body height 165.1 cm Martha Darby MD Work Phone: [facility] 06-19-2022 08:41-0400 Body temperature 97.11 [degF] Martha Darby MD Work Phone: [facility] 06-19-2022 08:41-0400 Body weight 55.61 kg Martha Darby MD Work Phone: [facility] 06-19-2022 08:41-0400 Diastolic blood pressure 78 mm[Hg] Martha Darby MD Work Phone: [facility] 06-19-2022 08:41-0400 Heart rate 77 /min Martha Darby MD Work Phone: [facility] 06-19-2022 08:41-0400 SaO2% (BldA) [Mass fraction] 97 % Martha Darby MD Work Phone: [facility] 06-19-2022 08:41-0400 Systolic blood pressure 108 mm[Hg] Martha Darby MD Work Phone: [facility] 06-12-2022 09:36-0400 Body temperature 98.71 [degF] Karen Vasquez APRN.CUFF SETTER Work Phone: [facility] 06-12-2022 09:36-0400 Body weight 55.07 kg Karen Vasquez APRN.CUFF SETTER Work Phone: [facility] 06-12-2022 09:36-0400 Diastolic blood pressure 64 mm[Hg] Karen Praisler-Wood [employer] KITCH[employer].CUFF SETTER Work Phone: [facility] 06-12-2022 09:36-0400 Heart rate 82 /min Karen Praisler-Wood [employer] K[employer].CUFF SETTER Work Phone: [facility] 06-12-2022 09:36-0400 Respiratory rate 16 /min Karen Praisler-Wood [employer] KITCH[employer].CUFF SETTER Work Phone: [facility] 06-12-2022 09:36-0400 SaO2% (BldA) [Mass fraction] 97 % Karen Praisler-Wood [employer] K[employer].CUFF SETTER Work Phone: [facility] 06-12-2022 09:36-0400 Systolic blood pressure 130 mm[Hg] Karen Praisler-Wood [employer] K[employer]FF SETTER Work Phone: [facility] 02-02-2022 09:18-0500 Body height 166.4 cm Martha Darby MD Work Phone: [facility] 02-02-2022 09:18-0500 Body temperature 97.81 [degF] Martha Darby MD Work Phone: [facility] 02-02-2022 09:18-0500 Body weight 57.06 kg Martha Darby MD Work Phone: [facility] 02-02-2022 09:18-0500 Diastolic blood pressure 64 mm[Hg] Martha Darby MD Work Phone: [facility] 02-02-2022 09:18-0500 Heart rate 86 /min Martha Darby MD Work Phone: [facility] 02-02-2022 09:18-0500 SaO2% (BldA) [Mass fraction] 98 % Martha Darby MD Work Phone: [facility] 02-02-2022 09:18-0500 Systolic blood pressure 122 mm[Hg] Martha Darby MD Work Phone: [facility] 09-18-2021 11:27-0400 Body temperature 98.29 [degF] Joseph Vann MD Work Phone: [facility] 09-18-2021 11:27-0400 Body weight 55.34 kg Joseph Vann MD Work Phone: [facility] 09-18-2021 11:27-0400 Diastolic blood pressure 68 mm[Hg] Joseph Vann MD Work Phone: [facility] 09-18-2021 11:27-0400 Heart rate 80 /min Joseph Vann MD Work Phone: [facility] 09-18-2021 11:27-0400 Respiratory rate 16 /min Joseph Vann MD Work Phone: [facility] 09-18-2021 11:27-0400 SaO2% (BldA) [Mass fraction] 99 % Joseph Vann MD Work Phone: [facility] 09-18-2021 11:27-0400 Systolic blood pressure 110 mm[Hg] Joseph Vann MD Work Phone: [facility] 09-05-2016 18:00-0400 BMI (Body Mass Index) 19.97 kg/m2 Belgica Henry LPN [facility] Work Phone: 09-05-2016 18:00-0400 Body Temperature 98.5 [degF] Belgica Henry LPN [facility] Work Phone: 09-05-2016 18:00-0400 BP Diastolic 74 mm[Hg] Belgica Henry LPN [facility] Work Phone: 09-05-2016 18:00-0400 BP Systolic 116 mm[Hg] Belgica Henry LPN [facility] Work Phone: 09-05-2016 18:00-0400 Height 165.1 cm Belgica Henry LPN [facility] Work Phone: 09-05-2016 18:00-0400 Pulse (Heart Rate) 71 /min Belgica Henry LPN [facility] Work Phone: 09-05-2016 18:00-0400 Pulse Oximetry 97 % Belgica Henry LPN [facility] Work Phone: 09-05-2016 18:00-0400 Respiratory Rate 16 /min Belgica Henry LPN [facility] Work Phone: 09-05-2016 18:00-0400 Weight 54.43 kg Belgica Henry LPN [facility] Work Phone: 08-22-2016 17:59-0400 BMI (Body Mass Index) 20 kg/m2 Belgica Henry LPN [facility] Work Phone: 08-22-2016 17:59-0400 Body Temperature 100.1 [degF] Belgica Henry LPN [facility] Work Phone: 08-22-2016 17:59-0400 BP Diastolic 60 mm[Hg] Belgica Henry LPN [facility] Work Phone: 08-22-2016 17:59-0400 BP Systolic 108 mm[Hg] Belgica Henry LPN [facility] Work Phone: 08-22-2016 17:59-0400 Height 165.1 cm Belgica Henry LPN [facility] Work Phone: 08-22-2016 17:59-0400 Pulse (Heart Rate) 93 /min Belgica Henry LPN [facility] Work Phone: 08-22-2016 17:59-0400 Pulse Oximetry 98 % Belgica Henry LPN [facility] Work Phone: 08-22-2016 17:59-0400 Respiratory Rate 16 /min Belgica Henry LPN [facility] Work Phone: 08-22-2016 17:59-0400 Weight 54.52 kg Belgica Henry LPN [facility] Work Phone: Encounters Encounter Date Encounter Type Care Provider Facility Start: 01-12-2025 ambulatory Hellen Zhu Facility:[facility] Start: 01-10-2025 End: 01-10-2025 Emergency department patient visit Hellen Lafleur Facility:[facility] Start: 01-05-2025 End: 01-05-2025 ambulatory KEN ZARCO Facility:[facility] Start: 12-31-2024 End: 12-31-2024 ambulatory KEN Brandee ZARCO Facility:[facility] Start: 12-29-2024 End: 12-29-2024 ambulatory KEN Brandee ZARCO Facility:[facility] Start: 12-28-2024 End: 12-28-2024 ambulatory KEN ZARCO Facility:[facility] Start: 12-24-2024 End: 12-24-[address] DEBBIE MERINO MD Facility:A Start: 12-24-2024 End: 12-24-[address] DEBBIE MERINO MD [facility] Start: 12-15-2024 End: 12-15-2024 ambulatory KEN Brandee ZARCO Facility:[facility] Start: 12-08-2024 End: 12-08-2024 Telephone encounter Hellen Zhu DO Work Phone: Hematology/Oncology Comment on above: Appointment (AVS 11/23 6) Start: 12-08-2024 End: 12-08-2024 ambulatory Treatment Rm 11 Layo [facility] Work Phone: Hematology/Oncology Comment on above: 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) (Primary Dx); 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); Breast cancer 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, left (HCC); Triple negative breast cancer (HCC) Start: 12-08-2024 End: 12-08-2024 Office outpatient visit 25 minutes Hellen Zhu DO Work Phone: Hematology/Oncology Comment on above: Malignant neoplasm o f left breast in female, estrogen receptor negative, unspecified site of breast (HCC) (Primary Dx); 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); 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); Triple negative breast cancer (HCC); Brachial plexus disorders; Angiosarcoma of breast (HCC) Start: 12-08-2024 End: 12-08-2024 ambulatory KEN ZARCO Facility:[facility] Start: 12-02-2024 End: 12-02-2024 Telephone encounter Hellen Zhu DO Work Phone: Hematology/Oncology Comment on above: Results Start: 11-26-2024 End: 12-01-2024 Telephone encounter Hellen Zhu DO Work Phone: Hematology/Oncology Comment on above: Results Start: 11-24-2024 End: 11-24-2024 ambulatory Treatment Rm 11 Layo [facility] Work Phone: Hematology/Oncology Comment on above: 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) (Primary Dx); 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); Breast cancer 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, left (HCC); Triple negative breast cancer (HCC) Start: 11-20-2024 End: 11-20-2024 ambulatory Injection [facility] Work Phone: Hematology/Oncology Comment on above: Chemotherapy induced neutropenia (Primary Dx); Breast cancer 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, left (HCC); Triple negative breast cancer (HCC); 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) Start: 11-19-2024 End: 11-19-2024 ambulatory Injection Layo [facility] Work Phone: Hematology/Oncology Comment on above: Chemotherapy induced neutropenia (Primary Dx); Breast cancer 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, left (HCC); Triple negative breast cancer (HCC); 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) Start: 11-19-2024 End: 11-19-2024 Telephone encounter Hellen Zhu DO Work Phone: Hematology/Oncology Start: 11-19-2024 End: 11-19-[address] Hellen Lafleur MD Work Phone: -[facility] Start: 11-19-2024 End: 11-19-[address] 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) (Primary Dx); 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); Breast cancer 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, left (HCC); Triple negative breast cancer (HCC) Start: 11-17-2024 End: 11-17-2024 ambulatory KEN Brandee ZARCO Facility:[facility] Start: 11-16-2024 End: 11-16-2024 Office outpatient visit 25 minutes Hellen Zhu DO Work Phone: Hematology/Oncology Comment on above: Brachial plexus diso rders (Primary Dx); 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); Breast cancer 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, left (HCC); Triple negative breast cancer (HCC); Neuropathy, arm, left Start: 11-16-2024 End: 11-16-2024 ambulatory KEN Brandee ZARCO Facility:[facility] Start: 11-16-2024 End: 11-17-2024 Telephone encounter Hellen Zhu DO Work Phone: Hematology/Oncology Comment on above: avs 11/16 Start: 11-16-2024 End: 11-16-2024 ambulatory Injection Layo [facility] Work Phone: Hematology/Oncology Comment on above: Chemotherapy induced neutropenia (Primary Dx); Breast cancer 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, left (HCC); Triple negative breast cancer (HCC); 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) Start: 11-11-2024 End: 11-11-2024 Patient encounter procedure Mary Green MD Work Phone: General Surgery Comment on above: Axillary mass, right (Primary Dx) Start: 11-11-2024 End: 11-11-2024 ambulatory KEN ZARCO Facility:[facility] Start: 11-10-2024 End: 11-11-2024 Telephone encounter Hellen Zhu DO Work Phone: Hematology/Oncology Comment on above: Patient Question Appointment Start: 11-10-2024 End: 11-10-2024 ambulatory Treatment Rm 12 Layo [facility] Work Phone: Hematology/Oncology Comment on above: 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); 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); 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) Start: 11-09-2024 End: 11-09-2024 ambulatory Injection [facility] Work Phone: Hematology/Oncology Comment on above: Chemotherapy induced neutropenia (Primary Dx); Breast cancer 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, left (HCC); Triple negative breast cancer (HCC); 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) Start: 11-06-2024 End: 11-06-2024 Telephone encounter Hellen Zhu DO Work Phone: Hematology/Oncology Comment on above: Medication Problem Start: 11-06-2024 End: 11-06-2024 ambulatory Lab/Port [facility] Work Phone: Hematology/Oncology Comment on above: Chemotherapy induced neutropenia (Primary Dx); Breast cancer 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, left (HCC); Triple negative breast cancer (HCC); 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) Start: 11-05-2024 End: 11-05-2024 ambulatory Injection [facility] Work Phone: Hematology/Oncology Comment on above: Chemotherapy induced neutropenia (Primary Dx); Breast cancer 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, left (HCC); Triple negative breast cancer (HCC); 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) Start: 11-04-2024 End: 11-04-2024 Patient encounter procedure Mary Green MD Work Phone: General Surgery Comment on above: Axillary mass, right (Primary Dx) Start: 11-04-2024 End: 11-04-2024 ambulatory KEN Brandee ZARCO Facility:[facility] Start: 11-04-2024 End: 11-04-2024 ambulatory Injection [facility] Work Phone: Hematology/Oncology Comment on above: Chemotherapy induced neutropenia (Primary Dx); Breast cancer 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, left (HCC); Triple negative breast cancer (HCC); 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) Start: 11-03-2024 End: 11-17-2024 Telephone encounter Hellen Zhu DO Work Phone: Hematology/Oncology Comment on above: Patient Update Start: 11-03-2024 End: 11-03-2024 ambulatory Treatment Rm 3 Layo [facility] Work Phone: Hematology/Oncology Comment on above: 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); 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); 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) Start: 11-02-2024 End: 11-02-2024 Refill Monserrat Rodriguez APRN.CNP Work Phone: Hematology/Oncology Comment on above: Refill Request Chemotherapy induced neutropenia (Primary Dx); Breast cancer 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, left (HCC); Triple negative breast cancer (HCC); 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) Start: 10-30-2024 End: 10-30-2024 ambulatory KEN Brandee ZARCO Facility:[facility] Start: 10-29-2024 End: 11-04-2024 Telephone encounter Hellen Zhu DO Work Phone: Hematology/Oncology Comment on above: Patient Question Start: 10-29-2024 End: 10-29-2024 ambulatory KEN Brandee ZARCO Facility:[facility] Start: 10-28-2024 End: 10-28-2024 Patient encounter procedure Melony Davis MD Work Phone: Radiation Oncology Comment on above: Malignant neoplasm o f upper-outer quadrant of left breast in female, estrogen receptor negative (HCC) (Primary Dx) Start: 10-28-2024 End: 10-28-2024 ambulatory KEN Brandee ZARCO Facility:[facility] Start: 10-27-2024 End: 10-27-2024 ambulatory KEN ZARCO Facility:[facility] Start: 10-26-2024 End: 10-26-2024 Telephone encounter Hellen Zhu DO Work Phone: Hematology/Oncology Start: 10-26-2024 End: 10-26-2024 ambulatory KEN ZARCO Facility:[facility] Start: 10-23-2024 End: 10-23-2024 ambulatory Injection Layo [facility] Work Phone: Hematology/Oncology Comment on above: Chemotherapy induced neutropenia (Primary Dx); Breast cancer 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, left (HCC); Triple negative breast cancer (HCC); 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) Start: 10-22-2024 End: 10-22-2024 ambulatory Injection Layo [facility] Work Phone: Hematology/Oncology Comment on above: Chemotherapy induced neutropenia (Primary Dx); Breast cancer 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, left (HCC); Triple negative breast cancer (HCC); 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) Start: 10-22-2024 End: 10-22-2024 Subsequent hospital visit by physician [employer] [facility] (I-Stat/1.5t) Work Phone: Radiology Comment on above: Brachial plexus diso rders [G54.0] Start: 10-21-2024 End: 10-21-2024 Telephone encounter Hellen Zhu DO Work Phone: Hematology/Oncology Start: 10-21-2024 End: 10-21-2024 ambulatory Injection Layo [facility] Work Phone: Hematology/Oncology Comment on above: Chemotherapy induced neutropenia (Primary Dx); Breast cancer 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, left (HCC); Triple negative breast cancer (HCC); 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) Start: 10-20-2024 End: 10-20-2024 ambulatory Treatment Rm 3 Layo [facility] Work Phone: Hematology/Oncology Comment on above: Malignant neoplasm o f left breast in female, estrogen receptor negative, unspecified site of breast (HCC) (Primary Dx); 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); 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) Start: 10-20-2024 End: 10-20-2024 Office outpatient visit 25 minutes Hellen Zhu DO Work Phone: Hematology/Oncology Comment on above: Malignant neoplasm o f left breast in female, estrogen receptor negative, unspecified site of breast (HCC) (Primary Dx); 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); 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); Chemotherapy induced neutropenia; 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 Bishnu pope MD -[facility]- Start: 10-13-2024 End: 10-13-2024 Patient encounter procedure [facility] [employer]PERATOR-C -Pulmonary Services/Neurology Work Phone: Start: 10-13-2024 End: 10-13-2024 ambulatory Treatment Rm 10 Layo [facility] Work Phone: Hematology/Oncology Comment on above: Malignant neoplasm o f left breast in female, estrogen receptor negative, unspecified site of breast (HCC) (Primary Dx); 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); 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) Start: 10-12-2024 End: 10-13-2024 ambulatory Injection Layo [facility] Work Phone: Hematology/Oncology Comment on above: Chemotherapy induced neutropenia (Primary Dx); Breast cancer 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, left (HCC); Triple negative breast cancer (HCC); 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) Start: 10-09-2024 End: 10-12-2024 Telephone encounter Hellen Zhu DO Work Phone: Hematology/Oncology Comment on above: Follow Up Start: 10-09-2024 End: 10-09-2024 ambulatory Injection Layo [facility] Work Phone: Hematology/Oncology Comment on above: Chemotherapy induced neutropenia (Primary Dx); Breast cancer 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, left (HCC); Triple negative breast cancer (HCC); 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) Start: 10-08-2024 End: 10-08-2024 ambulatory Injection Layo [facility] Work Phone: Hematology/Oncology Comment on above: Chemotherapy induced neutropenia (Primary Dx); Breast cancer 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, left (HCC); Triple negative breast cancer (HCC); 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) Start: 10-06-2024 End: 10-06-2024 Orders Only Yoni Mancera MD Work Phone: Hematology/Oncology Comment on above: Brachial plexus diso rders (Primary Dx); 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) Malignant neoplasm o f left breast in female, estrogen receptor negative, unspecified site of breast (HCC) (Primary Dx); 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); 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) Start: 10-05-2024 End: 10-06-2024 Telephone encounter Hellen Zhu DO Work Phone: Hematology/Oncology Comment on above: Appointment Start: 09-29-2024 End: 10-06-2024 Telephone encounter Yoni Mancera MD Work Phone: Hematology/Oncology Comment on above: Orders Start: 09-29-2024 End: 09-29-2024 ambulatory Treatment Rm 10 Layo [facility] Work Phone: Hematology/Oncology Comment on above: Malignant neoplasm o f left breast in female, estrogen receptor negative, unspecified site of breast (HCC) (Primary Dx); 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); 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) Start: 09-28-2024 End: 09-28-2024 Patient encounter procedure Yoni Mancera MD Work Phone: Hematology/Oncology Start: 09-28-2024 End: 09-28-2024 ambulatory Yoni Mancera MD Work Phone: Hematology/Oncology Comment on above: Malignant neoplasm o f overlapping sites of left breast in female, estrogen receptor negative (HCC) (Primary Dx); Personal history of irradiation; Left arm numbness; 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); Malignant neoplasm of right breast in female, estrogen receptor negative, unspecified site of breast (HCC); Recurrent breast cancer, left (HCC) Start: 09-24-2024 End: 09-28-2024 Telephone encounter Hellen Zhu DO Work Phone: Hematology/Oncology Comment on above: Appointment Start: 09-24-2024 End: 09-24-2024 Patient encounter procedure Keila Christina DO Work Phone: [facility] Comment on above: 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); 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); History of right breast cancer; History of left breast cancer; H/O breast augmentation; Triple negative breast cancer (HCC) Start: 09-24-2024 End: 09-24-2024 ambulatory KEN ZARCO Facility:[facility] Start: 09-22-2024 ambulatory HELLEN ZHU Facility:1 [id number] Start: 09-22-2024 End: 09-22-2024 Subsequent hospital visit by physician [facility] [address] SC[address] Comment on above: Malignant neoplasm o f overlapping sites of left breast in female, estrogen receptor negative (HCC) [C50.812, Z17.1] Start: 09-22-2024 End: 09-22-2024 Telephone encounter Hellen Zhu DO Work Phone: Hematology/Oncology Comment on above: Patient Update Start: 09-22-2024 End: 09-22-2024 ambulatory Treatment Rm 4 Layo [facility] Work Phone: Hematology/Oncology Comment on above: Malignant neoplasm o f left breast in female, estrogen receptor negative, unspecified site of breast (HCC) (Primary Dx); 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); 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) Start: 09-21-2024 End: 09-21-2024 Patient encounter procedure Hellen Zhu DO Work Phone: Hematology/Oncology Start: 09-21-2024 End: 09-21-2024 ambulatory Hellen Zhu DO Work Phone: Hematology/Oncology Comment on above: Malignant neoplasm o f overlapping sites of left breast in female, estrogen receptor negative (HCC) (Primary Dx); 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 Hellen Lafleur MD Work Phone: -[facility] Start: 09-17-2024 End: 09-17-[address] Alec Kong MD -[facility] Work Phone: Start: 09-17-2024 End: 09-17-2024 ambulatory Hellen Lafleur Facility:[facility] Start: 09-15-2024 End: 09-17-2024 Telephone encounter Jael Gunter dye house worker/Oncology Comment on above: Legal Cashier - O ther (Treatment ) Start: 09-15-2024 End: 09-15-2024 ambulatory KEN ZARCO MD Facility:A Start: 09-15-2024 End: 09-15-[address] DEBBIE MERINO MD [facility] Start: 09-08-2024 End: 09-08-2024 ambulatory Treatment 12 Layo [facility] Work Phone: Hematology/Oncology Comment on above: Malignant neoplasm o f left breast in female, estrogen receptor negative, unspecified site of breast (HCC) (Primary Dx); 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); 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) Start: 09-03-2024 End: 09-03-2024 Telephone encounter Hellen Zhu DO Work Phone: Hematology/Oncology Comment on above: Patient Question Start: 09-01-2024 End: 09-01-2024 ambulatory Treatment Rm 12 [facility] Work Phone: Hematology/Oncology Comment on above: Malignant neoplasm o f left breast in female, estrogen receptor negative, unspecified site of breast (HCC) (Primary Dx); 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); 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) Start: 08-26-2024 End: 08-26-2024 ambulatory KEN ZARCO MD Facility:A Start: 08-26-2024 End: 08-26-2024 Patient encounter procedure RAFIQ ANTONIO DIET [facility] Start: 08-25-2024 End: 08-25-2024 ambulatory Treatment Rm 13 [facility] Work Phone: Hematology/Oncology Comment on above: Malignant neoplasm o f left breast in female, estrogen receptor negative, unspecified site of breast (HCC) (Primary Dx); 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); 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) Start: 08-24-2024 End: 08-24-2024 Office outpatient visit 10 minutes Hellen Zhu DO Work Phone: Hematology/Oncology Comment on above: Malignant neoplasm o f left breast in female, estrogen receptor negative, unspecified site of breast (HCC) (Primary Dx); 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) Start: 08-24-2024 End: 08-24-2024 ambulatory HELLEN ZHU Facility:[facility] Start: 08-19-2024 End: 08-19-2024 ambulatory KEN ZARCO MD Facility:A Start: 08-19-2024 End: 08-19-[address] DEBBIE MERINO MD [facility] Start: 08-11-2024 End: 08-11-2024 ambulatory KEN ZARCO Facility:[facility] Start: 08-04-2024 End: 08-05-2024 Telephone encounter Hellen Zhu DO Work Phone: Hematology/Oncology Comment on above: Results Start: 08-04-2024 End: 08-04-2024 ambulatory Treatment Rm 6 Layo [facility] Work Phone: Hematology/Oncology Comment on above: Malignant neoplasm o f left breast in female, estrogen receptor negative, unspecified site of breast (HCC) (Primary Dx); 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 Hellen Zhu DO -[facility] Start: 08-04-2024 End: 08-04-2024 ambulatory Hellen Zhu Facility:[facility] Start: 07-30-2024 End: 09-29-2024 Follow-up encounter Hellen Zhu DO Work Phone: Hematology/Oncology Start: 07-30-2024 ambulatory KEN ZARCO Facility:[facility] Start: 07-30-2024 End: 07-30-2024 Subsequent hospital visit by physician [employer] [facility] (I-Stat/1.5t) Work Phone: Radiology Comment on above: Malignant neoplasm o f overlapping sites of left breast in female, estrogen receptor negative (HCC) [C50.812, Z17.1] Start: 07-29-2024 End: 07-29-2024 Telephone encounter Jael Gunter RN Hematology/Oncology Comment on above: Legal Cashier - O ther (C1D1 Post Treatment Call (Keytruda/Paclitaxel) ) Start: 07-28-2024 End: 07-28-2024 Telephone encounter Hellen Zhu DO Work Phone: Hematology/Oncology Comment on above: Appointment Start: 07-28-2024 End: 07-28-2024 ambulatory Treatment Rm 12 Layo [facility] Work Phone: Hematology/Oncology Comment on above: Malignant neoplasm o f left breast in female, estrogen receptor negative, unspecified site of breast (HCC) (Primary Dx); Malignant neoplasm of overlapping sites of left breast in female, estrogen receptor negative (HCC); Triple negative breast cancer (HCC); 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); 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) Start: 07-27-2024 End: 07-27-2024 Telephone encounter Jael Gunter dye house worker/Oncology Comment on above: Legal Cashier - O ther (Starting treatment ) Start: 07-24-2024 End: 07-25-2024 Telephone encounter Hellen Zhu DO Work Phone: Hematology/Oncology Comment on above: Results Start: 07-23-2024 End: 07-23-2024 Patient encounter procedure Mary Green MD Work Phone: General Surgery Comment on above: H/O bilateral breast implants (Primary Dx); 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 Alec Kong MD Work Phone: [facility] Work Phone: Start: 06-30-2024 End: 06-30-[address] Alec Kong MD -Physical Therapy Work Phone: Start: 06-01-2024 End: 06-01-2024 Follow-up encounter Kala Kaba Work Phone: Hematology/Oncology Comment on above: Encounter for follow -up surveillance of breast cancer (Primary Dx) Start: 06-01-2024 End: 06-01-2024 Patient encounter procedure Kala Kaba Work Phone: Hematology/Oncology Start: 06-01-2024 End: 06-01-2024 ambulatory KEN ZARCO Facility:[facility] Start: 05-25-2024 End: 05-25-2024 ambulatory KEN ZARCO Facility:[facility] Start: 05-25-2024 End: 05-25-2024 Subsequent hospital visit by physician Ct Prep [facility] Cat Scan Comment on above: Breast cancer metast 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, left (HCC) [C50.912, C77.3] Start: 05-20-2024 End: 05-21-2024 Telephone encounter Hellen Zhu DO Work Phone: Hematology/Oncology Comment on above: Orders (CT SCAN ) Start: 05-05-2024 End: 05-05-2024 ambulatory KEN ZARCO MD Facility: Start: 05-05-2024 End: 05-05-[address] DEBBIE MERINO MD [facility] Start: 04-29-2024 End: 04-29-[address] Arben Mccann MD -[facility] Work Phone: Start: 04-29-2024 End: 04-29-2024 ambulatory Hellen Lafleur [place] Start: 04-27-2024 End: 04-27-2024 Telephone encounter Hellen Zhu DO Work Phone: Hematology/Oncology Comment on above: Orders Start: 04-07-2024 End: 04-07-[address] Alec Kong MD -Radiology, [facility] Work Phone: Start: 04-07-2024 End: 04-07-2024 ambulatory Hellen Lafleur Facility: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) Start: 02-24-2024 End: 02-24-2024 Office outpatient visit 25 minutes Hellen Zhu DO Work Phone: Hematology/Oncology Comment on above: Malignant neoplasm o f left breast in female, estrogen receptor negative, unspecified site of breast (HCC) (Primary Dx); Breast cancer 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, left (HCC); 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); Muscle cramp, nocturnal Start: 02-24-2024 End: 02-24-2024 ambulatory Lab/Port [facility] Work Phone: Hematology/Oncology Comment on above: Malignant neoplasm o f left breast in female, estrogen receptor negative, unspecified site of breast (HCC); Breast cancer 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, left (HCC); Malaise and fatigue Start: 02-24-2024 End: 02-25-2024 Telephone encounter Hellen Zhu DO Work Phone: Hematology/Oncology Comment on above: avs 02/24/24 Start: 01-22-2024 End: 01-22-2024 ambulatory KEN ZARCO Facility:[facility] Start: 01-22-2024 End: 01-22-2024 Follow-up encounter Melony Davis MD Work Phone: Radiation Oncology Comment on above: Radiotherapy follow- up (Primary Dx); Malignant neoplasm of upper-outer quadrant of left breast in female, estrogen receptor negative (HCC) Start: 01-22-2024 End: 01-22-2024 Telemedicine consultation with patient Melony Davis MD Work Phone: Radiation Oncology Start: 01-14-2024 End: 01-14-2024 ambulatory Treatment Rm 7 Layo [facility] Work Phone: Hematology/Oncology Comment on above: Malignant neoplasm o f left breast in female, estrogen receptor negative, unspecified site of breast (HCC) (Primary Dx); 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) Start: 01-13-2024 End: 01-13-2024 Patient encounter procedure Kala Kaba Work Phone: Hematology/Oncology Start: 01-13-2024 End: 01-13-2024 ambulatory Lab/Port [facility] Work Phone: Hematology/Oncology Comment on above: Malignant neoplasm o f left breast in female, estrogen receptor negative, unspecified site of breast (HCC); Breast cancer 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, left (HCC); Malaise and fatigue Malignant neoplasm o f left breast in female, estrogen receptor negative, unspecified site of breast (HCC) (Primary Dx) Start: 12-25-2023 End: 12-25-2023 ambulatory Melony Davis MD Work Phone: Hematology/Oncology Comment on above: Patient Education Start: 12-25-2023 End: 01-02-2024 Patient encounter procedure Melony Davis MD Work Phone: Radiation Oncology Start: 12-25-2023 End: 01-02-2024 Radiation Oncology Note Melony Davis MD Work Phone: Radiation Oncology Comment on above: Completion Note Start: 12-23-2023 End: 12-23-2023 Patient encounter procedure Melony Davis MD Work Phone: Radiation Oncology Comment on above: Malignant neoplasm o f upper-outer quadrant of left breast in female, estrogen receptor negative (HCC) (Primary Dx) Start: 12-17-2023 End: 12-17-2023 Patient encounter procedure Melony Davis MD Work Phone: Radiation Oncology Comment on above: Malignant neoplasm o f upper-outer quadrant of left breast in female, estrogen receptor negative (HCC) (Primary Dx) Start: 12-17-2023 End: 12-17-2023 Telephone encounter Melony Davis MD Work Phone: Radiation Oncology Comment on above: Insurance Authorizat ion Start: 12-10-2023 End: 12-10-2023 Patient encounter procedure Melony Davis MD Work Phone: Radiation Oncology Comment on above: Malignant neoplasm o f upper-outer quadrant of left breast in female, estrogen receptor negative (HCC) (Primary Dx) Start: 12-03-2023 End: 12-03-2023 Patient encounter procedure Melony Davis MD Work Phone: Radiation Oncology Comment on above: Malignant neoplasm o f upper-outer quadrant of left breast in female, estrogen receptor negative (HCC) (Primary Dx) Start: 12-03-2023 End: 12-03-2023 ambulatory Treatment Rm 7 Layo [facility] Work Phone: Hematology/Oncology Comment on above: Malignant neoplasm o f left breast in female, estrogen receptor negative, unspecified site of breast (HCC) (Primary Dx); 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) Start: 12-02-2023 End: 12-02-2023 Patient encounter procedure Hellen Zhu DO Work Phone: Hematology/Oncology Start: 12-02-2023 End: 12-02-2023 ambulatory Lab/Port [facility] Work Phone: Hematology/Oncology Comment on above: Malignant neoplasm o f left breast in female, estrogen receptor negative, unspecified site of breast (HCC); Breast cancer 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, left (HCC); Malaise and fatigue Malignant neoplasm o f left breast in female, estrogen receptor negative, unspecified site of breast (HCC) (Primary Dx); Triple negative breast cancer (HCC); Drug rash Start: 11-26-2023 End: 11-26-2023 Patient encounter procedure Melony Davis MD Work Phone: Radiation Oncology Comment on above: Malignant neoplasm o f upper-outer quadrant of left breast in female, estrogen receptor negative (HCC) (Primary Dx) Start: 11-19-2023 End: 11-19-2023 Patient encounter procedure Melony Davis MD Work Phone: Radiation Oncology Comment on above: Malignant neoplasm o f upper-outer quadrant of left breast in female, estrogen receptor negative (HCC) (Primary Dx) Start: 11-12-2023 End: 11-12-2023 Patient encounter procedure Melony Davis MD Work Phone: Radiation Oncology Comment on above: Malignant neoplasm o f upper-outer quadrant of left breast in female, estrogen receptor negative (HCC) (Primary Dx) Start: 11-04-2023 End: 11-04-2023 Nursing evaluation of patient and report Nurse Jannette [facility] Work Phone: Radiation Oncology Comment on above: Malignant neoplasm o f upper-outer quadrant of left breast in female, estrogen receptor negative (HCC) (Primary Dx) Start: 11-04-2023 End: 11-09-2023 Patient encounter procedure Melony Davis MD Work Phone: Radiation Oncology Start: 11-04-2023 End: 11-09-2023 Radiation Oncology Note Melony Davis MD Work Phone: Radiation Oncology Comment on above: Simulation Note Treatment Planning Start: 10-29-2023 Orders Only Melony Davis MD Work Phone: Radiation Oncology Comment on above: Malignant neoplasm o f upper-outer quadrant of left breast in female, estrogen receptor negative (HCC) (Primary Dx) Start: 10-23-2023 End: 10-23-2023 Patient encounter procedure Melony Davis MD Work Phone: Radiation Oncology Comment on above: Malignant neoplasm o f upper-outer quadrant of left breast in female, estrogen receptor negative (HCC) (Primary Dx) Start: 10-22-2023 End: 10-22-2023 ambulatory Treatment Rm 7 Layo [facility] Work Phone: Hematology/Oncology Comment on above: Malignant neoplasm o f left breast in female, estrogen receptor negative, unspecified site of breast (HCC) (Primary Dx); Breast cancer 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, left (HCC); Malaise and fatigue; 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) Start: 10-18-2023 End: 10-18-2023 ambulatory Hellen Zhu DO Work Phone: Hematology/Oncology Comment on above: Malignant neoplasm o f left breast in female, estrogen receptor negative, unspecified site of breast (HCC) (Primary Dx); 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) Start: 10-18-2023 End: 10-18-2023 Patient encounter procedure Hellen Zhu DO Work Phone: Hematology/Oncology Start: 10-10-2023 End: 10-10-2023 ambulatory DEBBIE MERINO Facility:A Start: 10-10-2023 End: 10-10-[address] DEBBIE MERINO MD [facility] Start: 10-02-2023 End: 10-06-2023 ambulatory DEBBIE ABRAHAMD Facility:A Start: 10-02-2023 End: 10-02-2023 ambulatory DEBBIEBERNARDA ABRAHAMD Facility:A Start: 10-02-2023 End: 10-02-[address] DEBBIE MERINO MD [facility] Start: 09-23-2023 End: 09-23-[address] DEBBIE MERINO MD [facility] Start: 09-23-2023 End: 09-23-2023 ambulatory DEBBIEBERNARDA MERINO Facility:A Start: 09-23-2023 End: 09-23-2023 ambulatory DEBBIE MERINO Facility:A Start: 09-23-2023 End: 09-23-[address] DEBBIE MERINO MD [facility] Start: 09-12-2023 Telephone encounter Hellen arechiga DO Work Phone: Hematology/Oncology Comment on above: Electronic Communica tion Appointment Start: 09-12-2023 End: 09-12-2023 ambulatory DEBBIEBERNARDA MERINO Facility:A Start: 09-06-2023 Telephone encounter Hellen arechiga DO Work Phone: Hematology/Oncology Comment on above: Results Start: 09-05-2023 Telephone encounter Keila Christina DO Work Phone: General Surgery Comment on above: Follow Up Start: 09-04-2023 Telephone encounter Hellen arechiga DO Work Phone: Hematology/Oncology Comment on above: Follow Up Start: 08-30-2023 End: 08-30-2023 ambulatory Treatment Rm 6 Layo [facility] Work Phone: Hematology/Oncology Comment on above: Malignant neoplasm o f left breast in female, estrogen receptor negative, unspecified site of breast (HCC) (Primary Dx); 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) Start: 08-29-2023 End: 08-29-2023 Patient encounter procedure Hellen Zhu DO Work Phone: Hematology/Oncology Start: 08-29-2023 End: 08-29-2023 ambulatory Lab/Port [facility] Work Phone: Hematology/Oncology Comment on above: Malignant neoplasm o f overlapping sites of left breast in female, estrogen receptor negative (HCC) (Primary Dx); Malignant neoplasm of left breast in female, estrogen receptor negative, unspecified site of breast (HCC); Breast cancer 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, left (HCC); Malaise and fatigue Malignant neoplasm o f overlapping sites of left breast in female, estrogen receptor negative (HCC) (Primary Dx); Breast cancer 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, left (HCC); Triple negative breast cancer (HCC) Start: 08-22-2023 Telephone encounter Hellen arechiga DO Work Phone: Hematology/Oncology Comment on above: Patient Update (PET) Start: 08-22-2023 End: 08-22-2023 Patient encounter procedure Keila Christina DO Work Phone: [facility] Comment on above: Breast cancer metast 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, left (HCC) (Primary Dx); History of right breast cancer; H/O bilateral breast implants; At risk for lymphedema Start: 08-20-2023 End: 08-20-2023 Subsequent hospital visit by physician Diagnostic Mammo [facility] Mammogram Comment on above: Malignant neoplasm o f left breast in female, estrogen receptor negative, unspecified site of breast (HCC) [C50.912, Z17.1] Start: 08-15-2023 Telephone encounter Hellen arechiga DO Work Phone: Hematology/Oncology Comment on above: Insurance Authorizat ion Start: 08-09-2023 End: 08-09-2023 ambulatory Treatment Rm 2 Layo [facility] Work Phone: Hematology/Oncology Comment on above: Breast cancer metast 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, left (HCC) (Primary Dx); Malignant neoplasm of left breast in female, estrogen receptor negative, unspecified site of breast (HCC); 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) Start: 08-08-2023 End: 08-08-2023 Patient encounter procedure Monserrat Stevensmohsen PHILLIPCUFF SETTER Work Phone: Hematology/Oncology Start: 08-08-2023 End: 08-08-2023 ambulatory Lab/Port [facility] Work Phone: Hematology/Oncology Comment on above: Malignant neoplasm o f left breast in female, estrogen receptor negative, unspecified site of breast (HCC); Breast cancer 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, left (HCC); Malaise and fatigue Malignant neoplasm o f left breast in female, estrogen receptor negative, unspecified site of breast (HCC) (Primary Dx); Breast cancer 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, left (HCC); Encounter for monitoring cardiotoxic drug therapy Start: 07-29-2023 Telephone encounter Hellen arechiga DO Work Phone: Hematology/Oncology Comment on above: Results Start: 07-25-2023 Orders Only Flor jenkins LPN Work Phone: [facility] Comment on above: Malignant neoplasm o f left breast in female, estrogen receptor negative, unspecified site of breast (HCC) (Primary Dx) Start: 07-23-2023 End: 07-23-2023 ambulatory Lab/Port [facility] Work Phone: Hematology/Oncology Comment on above: Breast cancer metast 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, left (HCC) (Primary Dx) Start: 07-22-2023 Telephone encounter Flor de la torre LPN Work Phone: [facility] Comment on above: Appointment Patient Update Start: 07-19-2023 Telephone encounter Hellen arechiga DO Work Phone: Hematology/Oncology Comment on above: Results Start: 07-19-2023 End: 07-19-2023 ambulatory Treatment Formerly [facility], [facility] Work Phone: Hematology/Oncology Comment on above: Malignant neoplasm o f left breast in female, estrogen receptor negative, unspecified site of breast (HCC) (Primary Dx); 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) Start: 07-18-2023 Telephone encounter Evangelina pretty RN Work Phone: Hematology/Oncology Comment on above: New Medication (Anti emetic) Start: 07-18-2023 End: 07-18-2023 Patient encounter procedure Hellen Zhu DO Work Phone: Hematology/Oncology Start: 07-18-2023 End: 07-18-2023 ambulatory Lab/Port [facility] Work Phone: Hematology/Oncology Comment on above: Malignant neoplasm o f left breast in female, estrogen receptor negative, unspecified site of breast (HCC); Breast cancer 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, left (HCC); Malaise and fatigue Breast cancer metast 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, left (HCC) (Primary Dx); Triple negative breast cancer (HCC); Malignant neoplasm of overlapping sites of left breast in female, estrogen receptor negative (HCC) Malignant neoplasm o f left breast in female, estrogen receptor negative, unspecified site of breast (HCC) (Primary Dx); Breast cancer 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, left (HCC); Encounter for monitoring cardiotoxic drug therapy Start: 07-17-2023 End: 07-17-2023 ambulatory Injection [facility] Work Phone: Hematology/Oncology Comment on above: Breast cancer metast 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, left (HCC) (Primary Dx); Triple negative breast cancer (HCC); Malignant neoplasm of overlapping sites of left breast in female, estrogen receptor negative (HCC) Start: 07-17-2023 ambulatory HELLEN ZHU Facility:1 [id number] Start: 07-17-2023 End: 07-17-2023 Subsequent hospital visit by physician [facility] 2 Work Phone: [facility] Comment on above: Malignant neoplasm o f overlapping sites of left breast in female, estrogen receptor negative (HCC) [C50.812, Z17.1] Start: 07-16-2023 End: 07-16-2023 ambulatory Injection [facility] Work Phone: Hematology/Oncology Comment on above: Breast cancer metast 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, left (HCC) (Primary Dx); Triple negative breast cancer (HCC); Malignant neoplasm of overlapping sites of left breast in female, estrogen receptor negative (HCC) Start: 07-15-2023 Telephone encounter Hellen arechiga DO Work Phone: Hematology/Oncology Comment on above: Follow Up Start: 07-15-2023 End: 07-15-2023 ambulatory Injection [facility] Work Phone: Hematology/Oncology Comment on above: Breast cancer metast 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, left (HCC) (Primary Dx); Triple negative breast cancer (HCC); Malignant neoplasm of overlapping sites of left breast in female, estrogen receptor negative (HCC) Start: 07-12-2023 Telephone encounter Peg MORTON Hematology/Oncology Comment on above: Social Work Services Start: 07-12-2023 End: 07-12-2023 ambulatory Treatment Rm 6 [facility] Work Phone: Hematology/Oncology Comment on above: Malignant neoplasm o f left breast in female, estrogen receptor negative, unspecified site of breast (HCC) (Primary Dx); 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); Breast cancer 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, left (HCC); Malaise and fatigue Start: 07-11-2023 End: 07-11-2023 ambulatory Injection [facility] Work Phone: Hematology/Oncology Comment on above: Breast cancer metast 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, left (HCC) (Primary Dx); Triple negative breast cancer (HCC); Malignant neoplasm of overlapping sites of left breast in female, estrogen receptor negative (HCC) Start: 07-10-2023 End: 07-10-2023 ambulatory Injection [facility] Work Phone: Hematology/Oncology Comment on above: Breast cancer metast 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, left (HCC) (Primary Dx); Triple negative breast cancer (HCC); Malignant neoplasm of overlapping sites of left breast in female, estrogen receptor negative (HCC) Start: 07-09-2023 End: 07-09-2023 ambulatory Injection [facility] Work Phone: Hematology/Oncology Comment on above: Breast cancer metast 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, left (HCC) (Primary Dx); Triple negative breast cancer (HCC); Malignant neoplasm of overlapping sites of left breast in female, estrogen receptor negative (HCC) Start: 07-08-2023 End: 07-08-2023 ambulatory Injection [facility] Work Phone: Hematology/Oncology Comment on above: Breast cancer metast 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, left (HCC) (Primary Dx); Triple negative breast cancer (HCC); Malignant neoplasm of overlapping sites of left breast in female, estrogen receptor negative (HCC) Start: 07-05-2023 End: 07-05-2023 ambulatory Treatment Rm 4 [facility] Work Phone: Hematology/Oncology Comment on above: Malignant neoplasm o f left breast in female, estrogen receptor negative, unspecified site of breast (HCC) (Primary Dx); 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) Start: 07-04-2023 End: 07-04-2023 Patient encounter procedure Kala Kaba Work Phone: [facility] Start: 07-04-2023 End: 07-04-2023 ambulatory Lab/Port [facility] Work Phone: Hematology/Oncology Comment on above: Malignant neoplasm o f left breast in female, estrogen receptor negative, unspecified site of breast (HCC); Breast cancer 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, left (HCC); Malaise and fatigue Breast cancer metast 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, left (HCC) (Primary Dx); Triple negative breast cancer (HCC); Malignant neoplasm of overlapping sites of left breast in female, estrogen receptor negative (HCC) Malignant neoplasm o f left breast in female, estrogen receptor negative, unspecified site of breast (HCC) (Primary Dx); Nausea; CINV (chemotherapy-induced nausea and vomiting) Start: 07-03-2023 End: 07-03-2023 ambulatory Injection [facility] Work Phone: Hematology/Oncology Comment on above: Breast cancer metast 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, left (HCC) (Primary Dx); Triple negative breast cancer (HCC); Malignant neoplasm of overlapping sites of left breast in female, estrogen receptor negative (HCC) Start: 07-02-2023 End: 07-02-2023 ambulatory Injection [facility] Work Phone: Hematology/Oncology Comment on above: Breast cancer metast 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, left (HCC) (Primary Dx); Triple negative breast cancer (HCC); Malignant neoplasm of overlapping sites of left breast in female, estrogen receptor negative (HCC) Start: 07-01-2023 End: 07-01-2023 ambulatory Injection [facility] Work Phone: Hematology/Oncology Comment on above: Breast cancer metast 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, left (HCC) (Primary Dx); Triple negative breast cancer (HCC); Malignant neoplasm of overlapping sites of left breast in female, estrogen receptor negative (HCC) Start: 06-28-2023 End: 06-28-2023 ambulatory Treatment Rm 11 [facility] Work Phone: Hematology/Oncology Comment on above: Malignant neoplasm o f left breast in female, estrogen receptor negative, unspecified site of breast (HCC) (Primary Dx); 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); Breast cancer 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, left (HCC); Malaise and fatigue Start: 06-27-2023 Chart abstracting Sondra Palomares RN Hematology/Oncology Comment on above: Research ([id number] Consent) Start: 06-27-2023 End: 06-27-2023 ambulatory Injection [facility] Work Phone: Hematology/Oncology Comment on above: Breast cancer metast 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, left (HCC) (Primary Dx); Triple negative breast cancer (HCC); Malignant neoplasm of overlapping sites of left breast in female, estrogen receptor negative (HCC) Start: 06-26-2023 End: 06-26-2023 ambulatory Injection [facility] Work Phone: Hematology/Oncology Comment on above: Breast cancer metast 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, left (HCC) (Primary Dx); Triple negative breast cancer (HCC); Malignant neoplasm of overlapping sites of left breast in female, estrogen receptor negative (HCC) Start: 06-25-2023 End: 06-25-2023 ambulatory Injection [facility] Work Phone: Hematology/Oncology Comment on above: Breast cancer metast 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, left (HCC) (Primary Dx); Triple negative breast cancer (HCC); Malignant neoplasm of overlapping sites of left breast in female, estrogen receptor negative (HCC) Start: 06-24-2023 Telephone encounter Hellen arechiga DO Work Phone: Hematology/Oncology Comment on above: Patient Question Start: 06-24-2023 End: 06-24-2023 ambulatory Lab/Port [facility] Work Phone: Hematology/Oncology Comment on above: Breast cancer metast 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, left (HCC) (Primary Dx); Triple negative breast cancer (HCC); Malignant neoplasm of overlapping sites of left breast in female, estrogen receptor negative (HCC) Start: 06-18-2023 Telephone encounter Hellen arechiga DO Work Phone: Hematology/Oncology Comment on above: Benefits Authorizati on Start: 06-17-2023 Telephone encounter Hellen arechiga DO Work Phone: Hematology/Oncology Comment on above: Patient Question Start: 06-14-2023 Telephone encounter Hellen arechiga DO Work Phone: Hematology/Oncology Comment on above: Patient Update Start: 06-14-2023 End: 06-14-2023 ambulatory Treatment Rm 6 [facility] Work Phone: Hematology/Oncology Comment on above: Malignant neoplasm o f left breast in female, estrogen receptor negative, unspecified site of breast (HCC) (Primary Dx); Breast cancer 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, left (HCC); Malaise and fatigue; Triple negative breast cancer (HCC) Start: 06-07-2023 End: 06-07-2023 ambulatory Treatment Rm 4 [facility] Work Phone: Hematology/Oncology Comment on above: Malignant neoplasm o f left breast in female, estrogen receptor negative, unspecified site of breast (HCC) (Primary Dx); 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) Start: 06-06-2023 Telephone encounter Hellen arechiga DO Work Phone: Hematology/Oncology Comment on above: Appointment Start: 06-06-2023 End: 06-06-2023 Patient encounter procedure Hellen Zhu DO Work Phone: [facility] Start: 06-06-2023 End: 06-06-2023 ambulatory Lab/Port [facility] Work Phone: Hematology/Oncology Comment on above: Malignant neoplasm o f left breast in female, estrogen receptor negative, unspecified site of breast (HCC); Breast cancer 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, left (HCC); Malaise and fatigue Malignant neoplasm o f overlapping sites of left breast in female, estrogen receptor negative (HCC) (Primary Dx); Breast cancer 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, left (HCC); Triple negative breast cancer (HCC) Start: 06-03-2023 End: 06-03-2023 ambulatory Injection [facility] Work Phone: Hematology/Oncology Comment on above: Breast cancer metast 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, left (HCC) (Primary Dx); Triple negative breast cancer (HCC) Start: 05-31-2023 Telephone encounter Hellen arechiga DO Work Phone: Hematology/Oncology Comment on above: Results Start: 05-31-2023 End: 05-31-2023 ambulatory Treatment Rm 2 [facility] Work Phone: Hematology/Oncology Comment on above: Malignant neoplasm o f left breast in female, estrogen receptor negative, unspecified site of breast (HCC); Breast cancer 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, left (HCC); Malaise and fatigue Start: 05-24-2023 End: 05-24-2023 ambulatory Treatment Rm 6 [facility] Work Phone: Hematology/Oncology Comment on above: 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) (Primary Dx); Malignant neoplasm of left breast in female, estrogen receptor negative, unspecified site of breast (HCC); Breast cancer 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, left (HCC); Malaise and fatigue Start: 05-17-2023 End: 05-17-2023 ambulatory Treatment Rm 4 [facility] Work Phone: Hematology/Oncology Comment on above: Malignant neoplasm o f left breast in female, estrogen receptor negative, unspecified site of breast (HCC) (Primary Dx); 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) Start: 05-16-2023 End: 05-16-2023 ambulatory Lab/Port [facility] Work Phone: Hematology/Oncology Comment on above: Malignant neoplasm o f left breast in female, estrogen receptor negative, unspecified site of breast (HCC) (HCC); Breast cancer 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, left (HCC); Malaise and fatigue Malignant neoplasm o f left breast in female, estrogen receptor negative, unspecified site of breast (HCC) (HCC) (Primary Dx) Start: 05-16-2023 End: 05-16-2023 Patient encounter procedure Monserrat Rodriguez APRN.CUFF SETTER Work Phone: [facility] Start: 05-10-2023 End: 05-10-2023 ambulatory Treatment Rm 3 [facility] Work Phone: Hematology/Oncology Comment on above: Malignant neoplasm o f left breast in female, estrogen receptor negative, unspecified site of breast (HCC) (HCC) (Primary Dx); Breast cancer 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, left (HCC); Malaise and fatigue; 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); History of right breast cancer Start: 05-07-2023 End: 05-07-2023 ambulatory [facility] Work Phone: [facility] Comment on above: Malignant neoplasm o f left breast in female, estrogen receptor negative, unspecified site of breast (HCC) (HCC) (Primary Dx); 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); History of right breast cancer Start: 05-07-2023 End: 05-07-2023 Telemedicine consultation with patient [facility] Work Phone: [facility] Start: 05-03-2023 Telephone encounter Hellen arechiga DO Work Phone: Hematology/Oncology Comment on above: Authorization for [facility] Start: 05-03-2023 End: 05-03-2023 ambulatory Treatment Rm 9 [facility] Work Phone: Hematology/Oncology Comment on above: Malignant neoplasm o f left breast in female, estrogen receptor negative, unspecified site of breast (HCC) (HCC) (Primary Dx); Breast cancer 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, left (HCC); Malaise and fatigue; 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) Start: 05-02-2023 Telephone encounter Jael Gunter RN He matology/Oncology Comment on above: Legal Cashier - O ther (Toxicity Check ) Start: 04-26-2023 Telephone encounter Jael Frederick matology/Oncology Comment on above: Legal Cashier - O ther (C1D1 Post Treatment Call ) Start: 04-25-2023 End: 04-25-2023 ambulatory Treatment Rm 1 [facility] Work Phone: Hematology/Oncology Comment on above: Malignant neoplasm o f left breast in female, estrogen receptor negative, unspecified site of breast (HCC) (HCC) (Primary Dx); Breast cancer 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, left (HCC); Malaise and fatigue; 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) Start: 04-24-2023 End: 04-24-2023 ambulatory UNKNOWN PROVIDER Facility:[id number] Start: 04-22-2023 Non-patient / Non-visit Dr. Kezia Lafleur Work Phone: [facility] Start: 04-22-2023 End: 04-22-2023 Admission to same day surgery center Dr. Hellen Lafleur Work Phone: [facility] Start: 04-22-2023 End: 04-22-[address] Hellen Lafleur Work Phone: [facility] Work Phone: Start: 04-17-2023 End: 04-17-[address] Hellen Lafleur Work Phone: [facility] Work Phone: Start: 04-15-2023 End: 01-28-2024 Telephone encounter Vale Carpenter MD Work Phone: General Surgery Comment on above: 04/19/2023 [facility] Start: 04-11-2023 End: 04-11-2023 Patient encounter procedure Keila Christina Work Phone: [facility] Comment on above: Breast cancer metast 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, left (HCC) (Primary Dx); 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); Malignant neoplasm of left breast in female, estrogen receptor negative, unspecified site of breast (HCC) (HCC); Triple negative breast cancer (HCC); History of right breast cancer; Abnormal MRI, breast Start: 04-10-2023 Orders Only Flor jenkins LPN Work Phone: [facility] Comment on above: Lymphadenopathy, axi llary (Primary Dx); Malignant neoplasm of female breast, unspecified estrogen receptor status, unspecified laterality, unspecified site of breast (HCC) Start: 04-09-2023 End: 04-09-[address] [facility] Work Phone: Start: 04-09-2023 End: 04-09-2023 Patient encounter procedure [facility] Work Phone: Start: 04-09-2023 End: 04-09-2023 [facility] Work Phone: Start: 04-09-2023 End: 04-09-2023 Patient encounter procedure [facility] Start: 03-12-2023 End: 03-12-2023 Patient encounter procedure Vale Carpenter MD Work Phone: General Surgery Comment on above: Lymphadenopathy, axi llary (Primary Dx) Start: 03-01-2023 End: 03-01-[address] [facility] Work Phone: Start: 03-01-2023 End: 03-01-2023 Patient encounter procedure [facility] Work Phone: Start: 01-21-2023 End: 01-21-[address] [facility] Work Phone: Start: 01-21-2023 End: 01-21-2023 Patient encounter procedure [facility] Work Phone: Start: 01-16-2023 End: 01-16-[address] [facility] Work Phone: Start: 01-16-2023 End: 01-16-2023 Patient encounter procedure [facility] Bone Densitometry Work Phone: Start: 10-08-2022 End: 10-08-[address] [facility] Work Phone: Start: 10-08-2022 End: 10-08-2022 Patient encounter procedure [facility] Breast Imaging Work Phone: Start: 08-09-2022 End: 08-09-[address] [facility] Work Phone: Start: 08-09-2022 End: 08-09-2022 Patient encounter procedure [facility] Start: 06-19-2022 End: 06-19-2022 Patient encounter procedure Martha Darby MD Work Phone: General Surgery Comment on above: Epigastric pain (Cheryl kenn Dx); Diarrhea, unspecified type Start: 06-13-2022 Telephone encounter Slime MAST Work Phone: [facility] Comment on above: Results Start: 06-12-2022 End: 06-12-2022 Patient encounter procedure Karen Christina REYNOSO Work Phone: [facility] Comment on above: Flu-like symptoms (P rimary Dx); Nausea Start: 02-16-2022 Telephone encounter Martha summers MD Work Phone: General Surgery Comment on above: Patient Update; Proc edure Start: 02-02-2022 End: 02-02-2022 Patient encounter procedure Martha Darby MD Work Phone: General Surgery Comment on above: Gastroesophageal ref lux disease, unspecified whether esophagitis present (Primary Dx); Epigastric pain Start: 10-09-2021 End: 10-09-2021 Subsequent hospital visit by physician [facility] Comment on above: Abnormal mammogram [ R92.8] Start: 10-09-2021 End: 10-09-2021 Patient encounter procedure Martha Darby MD Work Phone: General Surgery Comment on above: Abnormal mammogram ( Primary Dx) Start: 10-03-2021 End: 10-03-2021 Patient encounter procedure [facility] Start: 09-19-2021 Telephone encounter Sumit hairston APRN.CNP Work Phone: [facility] Comment on above: Results Start: 09-18-2021 End: 09-18-2021 Patient encounter procedure Joseph Vann MD Work Phone: [facility] Comment on above: Acute viral syndrome (Primary Dx); Nausea Start: 04-16-2017 End: 04-17-2017 Ambulatory DEEP RUSSD Facility:[facility] Procedures Date Procedure Procedure Detail Performing Clinician Start: 11-19-2024 MRI of upper limb Dr. Hellen Lafleur MD Work Phone: Start: 11-11-2024 Follow-up visit Follow Up MARY GREEN Start: 11-04-2024 US GUIDED SOFT TISSUE MASS BIOPSY (POC) SURG USE ONLY Mary Green MD Work Phone: Start: 09-21-2024 Gen seq analys edgar org/hemtolmphoid miguel 51/> gen Hellen Zhu DO Work Phone: Start: 09-17-2024 X-ray of cervical spine Dr. Hellen Lafleur MD Work Phone: Start: 08-04-2024 PET study for localization of tumor Dr. Hellen Lafleur MD Work Phone: Start: 07-30-2024 Mri brain brain stem w/o w/contrast material Hellen Zhu DO Work Phone: Start: 07-28-2024 Blood count complete auto&auto difrntl wbc Hellen Irvin Masci DO Work Phone: Start: 04-07-2024 Complete x-ray series of lumbar spine with bending views Dr. Alec Kong MD Work Phone: Start: 02-24-2024 Blood count complete auto&auto difrntl wbc Hellen Irvin Masci DO Work Phone: Start: 01-13-2024 Blood count complete auto&auto difrntl wbc Heleln Irvin Masci DO Work Phone: Start: 12-02-2023 Blood count complete auto&auto difrntl wbc Hellen Irvin Masci DO Work Phone: Start: 10-22-2023 Blood count complete auto&auto difrntl wbc Hellen Irvin Masci DO Work Phone: Start: 08-29-2023 Blood count complete auto&auto difrntl wbc Hellen Irvin Masci DO Work Phone: Start: 08-25-2023 History of augmentation of breast H/O breast augmentation Keila Sanford DO Work Phone: Start: 08-20-2023 Digital breast tomosynthesis bilateral Keila A Sanford DO Work Phone: Start: 08-08-2023 Blood count complete auto&auto difrntl wbc Hellen Irvin Masci DO Work Phone: Start: 07-18-2023 Blood count complete auto&auto difrntl wbc Hellen Irvin Masci DO Work Phone: Start: 07-12-2023 End: 07-12-2023 Adrenocorticotropic hormone acth Mk ayers MD Work Phone: Start: 07-04-2023 CBC + DIFF Hellen Irvin Masci DO Work Phone: Start: 07-04-2023 Comprehensive metabolic panel Hellen Horn ci DO Work Phone: Start: 06-28-2023 Blood count complete auto&auto difrntl wbc Hellen Irvin Masci DO Work Phone: Start: 06-14-2023 Blood count complete auto&auto difrntl wbc Hellen Irvin Masci DO Work Phone: Start: 06-06-2023 Blood count complete auto&auto difrntl wbc Hellen Irvin Masci DO Work Phone: Start: 05-31-2023 Blood count complete auto&auto difrntl wbc Hellen Irvin Masci DO Work Phone: Start: 05-24-2023 Blood count complete auto&auto difrntl wbc Hellen Irvin Masci DO Work Phone: Start: 05-24-2023 Comprehensive metabolic 2000 panel - Serum or Plasma Hellen Irvin Masci DO Work Phone: Start: 05-17-2023 Blood count complete auto&auto difrntl wbc Monserrat Rodriguez EDGARDO Work Phone: Start: 05-16-2023 Blood count complete auto&auto difrntl wbc Hellen Irvin Masci DO Work Phone: Start: 05-10-2023 Blood count complete auto&auto difrntl wbc Hellen Irvin Masci DO Work Phone: Start: 05-03-2023 Blood count complete auto&auto difrntl wbc Hellen Irvin Masci DO Work Phone: Start: 04-25-2023 Blood count complete auto&auto difrntl wbc Hellen Irvin Masci DO Work Phone: Start: 04-22-2023 Implantation to cardiovascular system Dr. Hellen Lafleur Work Phone: Start: 04-22-2023 Radiographic procedure of chest Dr. Hellen Lafleur Work Phone: Start: 04-22-[address] Hellen Lafleur Work Phone: Start: 04-09-2023 MRI of bilateral breasts with contrast Start: 04-09-2023 Positron emission tomography with computed tomography Dr. Hellen Lafleur Work Phone: Start: 03-01-2023 Ultrasonography of breast Start: 01-16-2023 Dual energy X-ray absorptiometry Start: 10-08-2022 Screening mammography Start: 10-09-2021 US BREAST BIOPSY RIGHT (POC) SURG USE ONLY Martha Darby MD Work Phone: Start: 10-09-2021 Diagnostic mammography computer-aided detcj uni Martha Darby MD Work Phone: Start: 10-03-2021 Bilateral mammography Start: 10-03-2021 Ultrasonography of breast Start: 02-08-2020 Colonoscopy Joseph Vann MD Work Phone: Start: 03-25-2019 Phacoemulsification of cataract with intraocular lens implantation DR DEBBIE MERINO MD Comment on above: RIGHT Start: 03-25-2018 Retinal detachment (disorder) DR DEBBIE MERINO MD Start: 07-21-2015 Colonoscopy Vale Carpenter MD Work Phone: Start: 05-10-2015 Mammography Joseph Vann MD Work Phone: Start: 03-25-2013 History of bilateral breast implants DR DEBBIE MERINO MD Start: 03-25-1991 Lumpectomy of right breast DR DEBBIE SALDANA MD Colonoscopy DR DEBBIE ANDERSON MD Esophagogastroduodenoscopy D R DEBBIE MERINO MD H/O: surgery History of breas t implants approx 2001 breast augmentation, bilat retropectoral silicone [address] DEBBIE MERINO MD Comment on above: IMPLANTS 2001 H/O: tubal ligation DR OTF MERINO MD History of augmentation of breas t H/O breast augmentation Keila Christina DO Work Phone: Plan of Treatment Date Care Activity Detail Author Start: 02-07-2030 Colonoscopy COLONOSCOPY [facility] Start: 02-07-2030 COLORECTAL CANCER SCREENING COLORECTAL CANCER SCREENING [facility] Start: 12-09-2027 Diabetes Screening Diabetes Screening [facility] Start: 11-25-2027 Diabetes Screening Diabetes Screening [facility] Start: 11-18-2027 Diabetes Screening Diabetes Screening [facility] Start: 11-11-2027 Diabetes Screening Diabetes Screening [facility] Start: 11-03-2027 Diabetes Screening Diabetes Screening [facility] Start: 10-28-2027 Diabetes Screening Diabetes Screening [facility] Start: 10-21-2027 Diabetes Screening Diabetes Screening [facility] Start: 09-22-2027 Diabetes Screening Diabetes Screening [facility] Start: 09-11-2027 Urine microalbumin profile DTaP,Tdap,Td Vaccine (2 - Td or Tdap) [facility] Start: 09-09-2027 Diabetes Screening Diabetes Screening [facility] Start: 08-25-2027 Diabetes Screening Diabetes Screening [facility] Start: 08-05-2027 Diabetes Screening Diabetes Screening [facility] Start: 07-29-2027 Diabetes Screening Diabetes Screening [facility] Start: 06-02-2027 Diabetes Screening Diabetes Screening [facility] Start: 02-23-2027 Diabetes Screening Diabetes Screening [facility] Start: 01-12-2027 Diabetes Screening Diabetes Screening [facility] Start: 12-01-2026 Diabetes Screening Diabetes Screening [facility] Start: 10-21-2026 Diabetes Screening Diabetes Screening [facility] Start: 08-28-2026 Diabetes Screening Diabetes Screening [facility] Start: 08-07-2026 Diabetes Screening Diabetes Screening [facility] Start: 07-17-2026 Diabetes Screening Diabetes Screening [facility] Start: 07-11-2026 Diabetes Screening Diabetes Screening [facility] Start: 07-03-2026 Diabetes Screening Diabetes Screening [facility] Start: 06-27-2026 Diabetes Screening Diabetes Screening [facility] Start: 06-20-2026 Diabetes Screening Diabetes Screening [facility] Start: 06-13-2026 Diabetes Screening Diabetes Screening [facility] Start: 06-05-2026 Diabetes Screening Diabetes Screening [facility] Start: 05-30-2026 Diabetes Screening Diabetes Screening [facility] Start: 05-23-2026 Diabetes Screening Diabetes Screening [facility] Start: 05-16-2026 Diabetes Screening Diabetes Screening [facility] Start: 05-10-2026 Diabetes Screening Diabetes Screening [facility] Start: 05-03-2026 Diabetes Screening Diabetes Screening [facility] Start: 04-25-2026 Diabetes Screening Diabetes Screening [facility] Start: 04-12-2026 Diabetes Screening Diabetes Screening [facility] Start: 07-20-2025 Screening for malignant neoplasm of colon [facility] Start: 02-16-2025 End: 02-16-2025 ambulatory [facility] Comment on above: CBC D8 TRODELVY/LAB BETINA Y* NO LATER THAN 1 WITH SAME DAY LAB - PM APPTS Start: 02-09-2025 End: 02-09-2025 ambulatory 02/09/2025 1:30 PM [facility] Infusion Center Hematology/Oncology [address] [place] [address] Q3WK TRODELVY/LAB&OV 02/08* NO LATER THAN 1 WITH SAME DAY LAB -PM APPTS Hematology/Oncology Comment on above: Q3WK TRODELVY/LAB&OV 02/08* NO LATER BAILEE N 1 WITH SAME DAY LAB -PM APPTS Start: 02-08-2025 End: 02-08-2025 ambulatory [facility] Comment on above: CBC/CMP OV/LAB EARLY/CHEMO 1 04/11* MASCI -PM APPTS Start: 01-26-2025 End: 01-26-2025 ambulatory [facility] Comment on above: CBC D8 TRODELVY/LAB BETINA Y* NO LATER THAN 1 WITH SAME DAY LAB - PM APPTS Start: 01-19-2025 End: 01-19-2025 ambulatory 01/19/2025 1:30 PM EDT Infusion Center Hematology/Oncology [address] [place] [address] Q3WK TRODELVY/LAB&OV 01/18* NO LATER THAN 1 WITH SAME DAY LAB -PM APPTS Hematology/Oncology Comment on above: Q3WK TRODELVY/LAB&OV 01/18* NO LATER BAILEE N 1 WITH SAME DAY LAB -PM APPTS Start: 01-18-2025 End: 01-18-2025 ambulatory [facility] Comment on above: CBC/CMP OV/LAB EARLY/CHEMO 1 * MASCI -PM APPTS Start: 01-05-2025 End: 01-05-2025 Patient encounter procedure Hematology/Oncology Comment on above: QWK TAXOL/LAB EARLY* LATE APPOINTMENTS QWK TAXOL/LAB EARLY* TUESDAYS LATE APPOINTMENTS Start: 01-05-2025 End: 01-05-2025 ambulatory [facility] Comment on above: CBC D8 TRODELVY/DAILY NE UPOGEN/LAB EARLY* NO LATER THAN 1 WITH SAME DAY LAB - PM APPTS D8 TRODELVY/LAB BETINA Y* NO LATER THAN 1 WITH SAME DAY LAB - PM APPTS Start: 01-04-2025 End: 01-04-2025 ambulatory 01/04/2025 10:15 AM EDT Infusion Center Hematology/Oncology [address] [place] [address] Wstr, Injection [facility] [address] [place] [address] DAILY NEUPOGEN* PM APPTS Hematology/Oncology Comment on above: DAILY NEUPOGEN* PM APPTS Start: 01-01-2025 End: 01-01-2025 ambulatory 01/01/2025 2:45 PM EDT Infusion Center Hematology/Oncology [address] [place] [address] Wstr, Injection [facility] [address] [place] [address] DAILY NEUPOGEN* PM APPTS Hematology/Oncology Comment on above: DAILY NEUPOGEN* PM APPTS Start: 12-31-2024 End: 12-31-2024 ambulatory 12/31/2024 2:45 PM EDT Infusion Center Hematology/Oncology [address] [place] [address] Wstr, Injection [facility] [address] [place] [address] DAILY NEUPOGEN* PM APPTS Hematology/Oncology Comment on above: DAILY NEUPOGEN* PM APPTS Start: 12-30-2024 End: 12-30-2024 ambulatory 12/30/2024 3:30 PM EDT Infusion Center Hematology/Oncology [address] [place] [address] Wstr, Injection [facility] [address] [place] [address] DAILY NEUPOGEN* PM APPTS Hematology/Oncology Comment on above: DAILY NEUPOGEN* PM APPTS Start: 12-29-2024 End: 12-29-2024 Patient encounter procedure Hematology/Oncology Comment on above: QWK TAXOL/LAB EARLY* LATE APPOINTMENTS QWK TAXOL/LAB EARLY* Saturday LATE APPOINTMENTS Start: 12-29-2024 End: 12-29-2024 ambulatory [facility] Comment on above: CBC Q3WK TRODELVY/DAILY NEUPOGEN/LAB&OV 12/28* NO LATER THAN 1 WITH SAME DAY LAB -LATE APPTS Q3WK TRODELVY/LAB&OV 12/28* NO LATER THAN 1 WITH SAME DAY LAB -LATE APPTS Start: 12-28-2024 End: 12-28-2024 ambulatory [facility] Comment on above: CBC/CMP OV/LAB EARLY/CHEMO 1 * MASCI DAILY NEUPOGEN* PM A PPTS Start: 12-25-2024 End: 12-25-2024 ambulatory 12/25/2024 3:30 PM EDT Infusion Center Hematology/Oncology [address] [place] [address] Wstr, Injection [facility] [address] [place] [address] DAILY NEUPOGEN* PM APPTS Hematology/Oncology Comment on above: DAILY NEUPOGEN* PM APPTS Start: 12-24-2024 End: 12-24-2024 ambulatory 12/24/2024 3:30 PM EDT Infusion Center Hematology/Oncology [address] [place] [address] Wstr, Injection [facility] [address] [place] [address] DAILY NEUPOGEN* PM APPTS Hematology/Oncology Comment on above: DAILY NEUPOGEN* PM APPTS Start: 12-23-2024 End: 12-23-2024 Patient encounter procedure Hematology/Oncology Comment on above: QWK TAXOL/LAB EARLY*LATE APPOINTMENTS QWK TAXOL/LAB EARLY* TUESDAYS LATE APPOINTMENTS Start: 12-23-2024 End: 12-23-2024 ambulatory [facility] Comment on above: CBC INJ SCHED FULL Start: 12-22-2024 End: 12-22-2024 ambulatory 12/22/2024 2:45 PM EDT Infusion Center Hematology/Oncology [address] [place] [address] Wstr, Injection [facility] [address] [place] [address] DAILY NEUPOGEN* PM APPTS Hematology/Oncology Comment on above: DAILY NEUPOGEN* PM APPTS Start: 12-21-2024 End: 12-21-2024 ambulatory 12/21/2024 10:15 AM EDT Infusion Center Hematology/Oncology [address] [place] [address] Wstr, Injection [facility] [address] [place] [address] DAILY NEUPOGEN* PM APPTS Hematology/Oncology Comment on above: DAILY NEUPOGEN* PM APPTS Start: 12-18-2024 End: 12-18-2024 ambulatory 12/18/2024 3:30 PM EDT Infusion Center Hematology/Oncology [address] [place] [address] Wstr, Injection [facility] [address] [place] [address] DAILY NEUPOGEN* PM APPTS Hematology/Oncology Comment on above: DAILY NEUPOGEN* PM APPTS Start: 12-17-2024 End: 12-17-2024 ambulatory Hematology/Oncology Comment on above: DAILY NEUPOGEN/QMO KEYTRUDA/QWK TAXOL/LA B&OV 12/15* LATE APPTS -KEYTRUDA,NO LATER THAN 230 WITH SAME DAY LAB DAILY NEUPOGEN/QMO K EYTRUDA/QWK TAXOL/LAB&OV 12/15*TUESDAYS LATE APPTS -KEYTRUDA,NO LATER THAN 230 WITH SAME DAY LAB INJ SCHED FULL Start: 12-16-2024 End: 12-16-2024 ambulatory 12/16/2024 3:30 PM EDT Infusion Center Hematology/Oncology [address] [place] [address] Wstr, Injection [facility] [address] [place] [address] DAILY NEUPOGEN* PM APPTS Hematology/Oncology Comment on above: DAILY NEUPOGEN* PM APPTS Start: 12-15-2024 End: 12-15-2024 Patient encounter procedure Hematology/Oncology Comment on above: OV/LAB EARLY/CHEMO 12/17* MASCI LATE APPO INTMENTS OV/LAB EARLY/CHEMO * MASCI TUESDAYS LATE APPOINTMENTS Start: 12-15-2024 End: 12-15-2024 ambulatory [facility] Comment on above: (SO)CBC/CMP(S)/CA15.3/TSH/T4/CORTISOL CBC D8 TRODELVY/DAILY NE UPOGEN/LAB EARLY* NO LATER THAN 1 WITH SAME DAY LAB - PM APPTS D8 TRODELVY/LAB BETINA Y* NO LATER THAN 1 WITH SAME DAY LAB - PM APPTS Start: 12-14-2024 End: 12-14-2024 ambulatory 12/14/2024 2:45 PM EDT Infusion Center Hematology/Oncology [address] [place] [address] Wstr, Injection [facility] [address] [place] [address] DAILY NEUPOGEN* PM APPTS Hematology/Oncology Comment on above: DAILY NEUPOGEN* PM APPTS Start: 12-11-2024 End: 12-11-2024 ambulatory 12/11/2024 2:30 PM EDT Infusion Center Hematology/Oncology [address] [place] [address] Wstr, Lab/[place] [facility] [address] [place] [address] INJ SCHED FULL Hematology/Oncology Comment on above: INJ SCHED FULL Start: 12-10-2024 End: 12-10-2024 ambulatory 12/10/2024 2:30 PM EDT Infusion Center Hematology/Oncology [address] [place] [address] Wstr, Lab/Port [facility] [address] [place] [address] INJ SCHED FULL Hematology/Oncology Comment on above: INJ SCHED FULL Start: 12-09-2024 End: 12-09-2024 Patient encounter procedure Hematology/Oncology Comment on above: QWK TAXOL/LAB EARLY* LATE APPOINTMENTS DAILY/NEUPOGEN/QWK T AXOL/LAB EARLY* LATE APPOINTMENTS Start: 12-09-2024 End: 12-09-2024 ambulatory [facility] Comment on above: CBC INJ SCHED FULL Start: 12-08-2024 End: 12-08-2024 ambulatory 12/08/2024 11:45 AM EDT Infusion Center Hematology/Oncology [address] [place] [address] Wstr, Injection [facility] [address] [place] [address] DAILY NEUPOGEN*PM APPTS Hematology/Oncology Comment on above: DAILY NEUPOGEN*PM APPTS Start: 12-08-2024 End: 12-08-2024 Patient encounter procedure 12/08/2024 10:30 AM EDT Infusion Center Hematology/Oncology [address] [place] [address] DAILY/NEUPOGEN/QWK TAXOL/LAB EARLY*TUES LATE APPOINTMENTS Hematology/Oncology Comment on above: DAILY/NEUPOGEN/QWK TAXOL/LAB EARLY*TUES LATE APPOINTMENTS Start: 12-08-2024 End: 12-08-2024 ambulatory [facility] Comment on above: CBC CBC/CMP WITH DR ZHU PER CR Q3WK TRODELVY/DAILY NEUPOGEN/LAB&OV EARLY* NO LATER THAN 1 WITH SAME DAY LAB -LATE APPTS Q3WK TRODELVY/LAB&OV EARLY* NO LATER THAN 1 WITH SAME DAY LAB -LATE APPTS Start: 12-07-2024 End: 12-07-2024 ambulatory 12/07/2024 3:30 PM EDT Infusion Center Hematology/Oncology [address] [place] [address] Wstr, Injection [facility] [address] [place] [address] DAILY NEUPOGEN*PM APPTS Hematology/Oncology Comment on above: DAILY NEUPOGEN*PM APPTS Start: 12-04-2024 End: 12-04-2024 ambulatory 12/04/2024 2:45 PM EDT Infusion Center Hematology/Oncology [address] [place] [address] Wstr, Injection [facility] [address] [place] [address] DAILY NEUPOGEN*PM APPTS Hematology/Oncology Comment on above: DAILY NEUPOGEN*PM APPTS Start: 12-03-2024 End: 12-03-2024 ambulatory 12/03/2024 2:30 PM EDT Infusion Center Hematology/Oncology [address] [place] [address] Wstr, Lab/Port [facility] [address] [place] [address] INJ SCHED FULL Hematology/Oncology Comment on above: INJ SCHED FULL Start: 12-02-2024 End: 12-02-2024 ambulatory 12/02/2024 2:00 PM EDT Infusion Center Hematology/Oncology [address] [place] [address] Wstr, Injection [facility] [address] [place] [address] DAILY NEUPOGEN*PM APPTS Hematology/Oncology Comment on above: DAILY NEUPOGEN*PM APPTS Start: 12-01-2024 End: 12-01-2024 Patient encounter procedure Hematology/Oncology Comment on above: QWK TAXOL/LAB EARLY* LATE APPOINTMENTS DAILY NEUPOGEN/QWK T AXOL/LAB EARLY* LATE APPOINTMENTS Start: 12-01-2024 End: 12-01-2024 ambulatory [facility] Comment on above: CBC D15 TAXOL/LAB EARLY* DAILY NEUPOGEN*PM AP PTS Start: 11-30-2024 End: 11-30-2024 ambulatory 11/30/2024 2:45 PM EDT Infusion Center Hematology/Oncology [address] [place] [address] Wstr, Injection [facility] [address] [place] [address] DAILY NEUPOGEN*PM APPTS Hematology/Oncology Comment on above: DAILY NEUPOGEN*PM APPTS Start: 11-30-2024 End: 11-30-2024 Patient encounter procedure 11/30/2024 8:30 AM EDT Appointment Radiology [address] [place] [address] Dx: Brachial plexus disorders [G54.0]; 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) [C77.3]; Breast cancer 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, left (HCC) [C50.912, C77.3]; Triple negative breast cancer (HCC) [C50.919, Z17.421]; Neuropathy, arm, left [G56.92] Radiology Comment on above: Dx: Brachial plexus disorders [G54.0]; M etastatic 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) [C77.3]; Breast cancer 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, left (HCC) [C50.912, C77.3]; Triple negative breast cancer (HCC) [C50.919, Z17.421]; Neuropathy, arm, left [G56.92] Start: 11-27-2024 End: 11-27-2024 ambulatory 11/27/2024 2:45 PM EDT Infusion Center Hematology/Oncology [address] [place] [address] Wstr, Injection [facility] [address] [place] [address] DAILY NEUPOGEN*PM APPTS Hematology/Oncology Comment on above: DAILY NEUPOGEN*PM APPTS Start: 11-26-2024 End: 11-26-2024 ambulatory Hematology/Oncology Comment on above: DAILY NEUPOGEN*PM APPTS Start: 11-25-2024 End: 11-25-2024 Patient encounter procedure Hematology/Oncology Comment on above: QWK TAXOL/LAB EARLY*LATE APPOINTMENTS DAILY NEUPOGEN/QWK T AXOL/LAB EARLY*LATE APPOINTMENTS DAILY NEUPOGEN/D8 TR ODELVY/LAB EARLY*LATE APPOINTMENTS Start: 11-25-2024 End: 11-25-2024 ambulatory [facility] Comment on above: CBC INJ SCHED FULL Start: 11-24-2024 End: 11-24-2024 ambulatory [facility] Comment on above: CBC (SO)CBC Start: 11-24-2024 End: 11-24-2024 Patient encounter procedure 11/24/2024 9:00 AM EDT Infusion Center Hematology/Oncology [address] [place] [address] QWK TAXOL/LAB EARLY*LATE APPOINTMENTS Hematology/Oncology Comment on above: QWK TAXOL/LAB EARLY*LATE APPOINTMENTS Start: 11-24-2024 End: 11-24-2024 ambulatory [facility] Comment on above: CBC D8 TAXOL/LAB EARLY* DAILY NEUPOGEN*PM AP PTS date/time per C Benjy Start: 11-23-2024 Influenza vaccination Influenza Vaccine (#1) [facility] Start: 11-20-2024 End: 11-20-2024 ambulatory Hematology/Oncology Comment on above: DAILY NEUPOGEN*PM APPTS last injection- Start: 11-20-2024 End: 11-20-2024 ambulatory Hematology/Oncology Comment on above: DAILY NEUPOGEN* DAILY NEUPOGEN*PM AP PTS Start: 11-19-2024 End: 11-19-2024 ambulatory 11/19/2024 3:30 PM EDT Infusion Center Hematology/Oncology [address] [place] [address] Wstr, Injection [facility] [address] [place] [address] DAILY NEUPOGEN*PM APTS Hematology/Oncology Comment on above: DAILY NEUPOGEN*PM APTS Start: 11-19-2024 End: 11-19-2024 ambulatory Hematology/Oncology Comment on above: DAILY NEUPOGEN* DAILY NEUPOGEN*PM AP TS Start: 11-18-2024 End: 11-18-2024 ambulatory 11/18/2024 10:45 AM EDT Infusion Center Hematology/Oncology [address] [place] [address] Wstr, Injection [facility] [address] [place] [address] DAILY NEUPOGEN* Hematology/Oncology Comment on above: DAILY NEUPOGEN* Start: 11-17-2024 End: 11-17-2024 ambulatory Hematology/Oncology Comment on above: QMO KEYTRUDA/QWK TAXOL/LAB&OV 11/16* LATE APPTS -KEYTRUDA,NO LATER THAN 230 WITH SAME DAY LAB DAILY NEUPOGEN/QMO K EYTRUDA/QWK TAXOL/LAB&OV 11/16* LATE APPTS -KEYTRUDA,NO LATER THAN 230 WITH SAME DAY LAB (SO)CBC/CMP/DPYD/UGT 1A1* Repeat CBC/CMP/DAILY NEUPOGEN//Trodelvy/LAB&OV 11/16* LATE APPTS -KEYTRUDA,NO LATER THAN 230 WITH SAME DAY LAB.Comingat 1130 DAILY NEUPOGEN//QWK TAXOL/LAB&OV 11/16* LATE APPTS -KEYTRUDA,NO LATER THAN 230 WITH SAME DAY LAB Start: 11-17-2024 End: 11-17-2024 ambulatory 11/17/2024 8:30 AM EDT Infusion Center Hematology/Oncology [address] [place] [address] QMO KEYTRUDA/D1-TAXOL/LAB&OV 11/16* KEYTRUDA NO LATER THAN 230 W/SAME DAY LAB Hematology/Oncology Comment on above: QMO KEYTRUDA/D1-TAXOL/LAB&OV 11/16* KEYTR UDA NO LATER THAN 230 W/SAME DAY LAB Start: 11-17-2024 End: 11-17-2024 Patient encounter procedure 11/17/2024 8:30 AM EDT Infusion Center Hematology/Oncology [address] [place] [address] QMO KEYTRUDA/QWK-TAXOL/LAB&OV 11/16* KEYTRUDA NO LATER THAN 230 W/SAME DAY LAB LATE APPOINTMENTS Hematology/Oncology Comment on above: QMO KEYTRUDA/QWK-TAXOL/LAB&OV 11/16* KEYT RUDA NO LATER THAN 230 W/SAME DAY LAB LATE APPOINTMENTS Start: 11-16-2024 End: 11-16-2024 Patient encounter procedure 11/16/2024 3:50 PM EDT Visit (SP) Office Hematology/Oncology [address] [facility] [place], [place] [address] Hellen Zhu, DO [address] [facility] [place] [address] OV/LAB EARLY/CHEMO 11/17* MASCI LATE APPOINTMENTS Hematology/Oncology Comment on above: OV/LAB EARLY/CHEMO 11/17* MASCI LATE APPO INTMENTS Start: 11-16-2024 End: 02-15-2025 DPYD/UGT1A1 GENOTYPING PANEL DPYD/UGT1A1 GENOTYPING PANEL Lab Routine Triple negative breast cancer (HCC) Expected: 11/16/2024, Expires: 02/15/2025 [facility] Work Phone: Comment on above: Expected: 11/16/2024, Expires: Start: 11-16-2024 End: 11-16-2024 Patient encounter procedure 11/16/2024 9:30 AM EDT Visit (SP) Office Hematology/Oncology [address] [facility], [place] [id number] Hellen Zhu, DO [address] [facility], [place] [id number] OV/LAB EARLY/CHEMO 11/17* MASCI LATE APPOINTMENTS Hematology/Oncology Comment on above: OV/LAB EARLY/CHEMO 11/17* MASCI LATE APPO INTMENTS Start: 11-16-2024 End: 11-16-2024 [facility]ulatory [facility] Comment on above: (SO)CBC/CMP(S)/CA15.3/TSH/T4/CORTISOL OV/LAB EARLY/CHEMO * AYAAN PT HAS PM LAB/OV PT HAS PM OV WITH DR ZHU Start: 11-13-2024 End: 11-13-2024 ambulatory 11/13/2024 2:45 PM EDT Infusion Center Hematology/Oncology [address] [place] [address] Wstr, Injection [facility] [address] [place] [address] DAILY NEUPOGEN* Hematology/Oncology Comment on above: DAILY NEUPOGEN* Start: 11-12-2024 End: 11-12-2024 ambulatory 11/12/2024 10:15 AM EDT Infusion Center Hematology/Oncology [address] [place] [address] Wstr, Injection [place] [address] [place] [address] DAILY NEUPOGEN* Hematology/Oncology Comment on above: DAILY NEUPOGEN* Start: 11-11-2024 End: 11-11-2024 Patient encounter procedure General Surgery Comment on above: f/u lymph node biopsy FU: Ultrasound Guide d Core Right Axillary Biopsy 11/04/2024. [facility] Start: 11-11-2024 End: 11-11-2024 ambulatory 11/11/2024 2:00 PM EDT Infusion Center Hematology/Oncology [address] [place] [address] Wstr, Injection [place] [address] [place] [address] DAILY NEUPOGEN* Hematology/Oncology Comment on above: DAILY NEUPOGEN* Start: 11-10-2024 End: 11-10-2024 ambulatory [facility] Comment on above: CBC (SO)CBC Start: 11-10-2024 End: 11-10-2024 Patient encounter procedure Hematology/Oncology Comment on above: QWK TAXOL/LAB EARLY*LATE APPOINTMENTS DAILY NEUPOGEN/QWK T AXOL/LAB EARLY* LATE APPOINTMENTS QWK TAXOL / Q3WK [place] /LAB EARLY* LATE APPOINTMENTS Start: 11-10-2024 End: 11-10-2024 ambulatory 11/10/2024 10:45 AM EDT Results Only [place] [facility] [address] [place] [address] CBC [facility] Comment on above: CBC Start: 11-09-2024 End: 11-09-2024 ambulatory 11/09/2024 8:45 AM EDT Infusion Center Hematology/Oncology [address] [place] [address] Wstr, Injection [place] [address] [place] [address] DAILY NEUPOGEN* Hematology/Oncology Comment on above: DAILY NEUPOGEN* Start: 11-06-2024 End: 11-06-2024 ambulatory 11/06/2024 9:30 AM EDT Infusion Center Hematology/Oncology [address] [place] [address] Wstr, Lab/Port [facility] [address] [place] [address] LAB/PORT SCHED OK PER TRIAGE Hematology/Oncology Comment on above: LAB/PORT SCHED OK PER TRIAGE Start: 11-05-2024 End: 11-05-2024 ambulatory 11/05/2024 3:30 PM EDT Infusion Center Hematology/Oncology [address] [place] [address] Wstr, Injection [place] [address] [place] [address] Daily Neupogen* Hematology/Oncology Comment on above: Daily Neupogen* Start: 11-05-2024 End: 11-05-2024 ambulatory 11/05/2024 9:30 AM EDT Infusion Center Hematology/Oncology [address] [place] [address] Wstr, Lab/Port [facility] [address] [place] [address] LAB/PORT SCHED OK PER TRIAGE Hematology/Oncology Comment on above: LAB/PORT SCHED OK PER TRIAGE Start: 11-04-2024 End: 11-04-2024 Patient encounter procedure 11/04/2024 1:30 PM EDT Office Visit General Surgery [address] [place] [address] Mary Green MD [address] [place] [address] Consult right axillary lymph node biopsy per Dr Zhu request General Surgery Comment on above: Consult right axillary lymph node biopsy per Dr Zhu request Start: 11-04-2024 End: 11-04-2024 ambulatory 11/04/2024 11:15 AM EDT Infusion Center Hematology/Oncology [address] [place] [address] Wstr, Injection [place] [address] [place] [address] Daily Neupogen* Hematology/Oncology Comment on above: Daily Neupogen* Start: 11-03-2024 End: 11-03-2024 [facility] Laboratory Comment on above: CBC D15 TAXOL/LAB EARLY* QWK TAXOL/LAB EARLY* DAILY NEUPOGEN/QWK T AXOL/LAB EARLY* Start: 11-02-2024 End: 11-02-2024 ambulatory 11/02/2024 10:45 AM EDT Infusion Center Hematology/Oncology [address] [place] [address] Wstr, Injection [facility] [address] [place] [address] Daily Neupogen* Hematology/Oncology Comment on above: Daily Neupogen* Start: 10-30-2024 End: 10-30-2024 ambulatory 10/30/2024 10:45 AM EDT Infusion Center Hematology/Oncology [address] [place] [address] Wstr, Injection Layo [facility] [address] [place] [address] Daily Neupogen* Hematology/Oncology Comment on above: Daily Neupogen* Start: 10-29-2024 End: 10-29-2024 ambulatory 10/29/2024 10:15 AM EDT Infusion Center Hematology/Oncology [address] [place] [address] Wstr, Injection Layo [facility] [address] [place] [address] Daily Neupogen* Hematology/Oncology Comment on above: Daily Neupogen* Start: 10-28-2024 End: 10-28-2024 Patient encounter procedure Radiology Comment on above: Dx: Brachial plexus disorders [G54.0] OV* Start: 10-28-2024 End: 10-28-2024 ambulatory Hematology/Oncology Comment on above: Daily Neupogen* Start: 10-27-2024 End: 10-27-2024 ambulatory [facility] Comment on above: CBC D8 TAXOL/LAB EARLY* QWK TAXOL/LAB EARLY* pm tx DAILY NEUPOGEN/QWK T AXOL/LAB EARLY* pm tx (SO)CBC* Start: 10-26-2024 End: 10-26-2024 ambulatory 10/26/2024 9:15 AM EDT Infusion Center Hematology/Oncology [address] [place] [address] Wstr, Injection Layo [facility] [address] [place] [address] Daily Neupogen* Hematology/Oncology Comment on above: Daily Neupogen* Start: 10-23-2024 End: 10-23-2024 ambulatory 10/23/2024 9:15 AM EDT Infusion Center Hematology/Oncology [address] [place] [address] Wstr, Injection Layo [facility] [address] [place] [address] Daily Neupogen* Hematology/Oncology Comment on above: Daily Neupogen* Start: 10-22-2024 End: 10-22-2024 ambulatory Hematology/Oncology Comment on above: Patient to arrive at 8:30 per triage Patient will be late d/t MRI/ Start: 10-22-2024 End: 10-22-2024 Patient encounter procedure Radiology Comment on above: Dx: Brachial plexus disorders [G54.0] Start: 10-22-2024 Subsequent hospital visit by physician 10/22/2024 9:00 AM EDT Hospital Encounter Radiology [address] [place] [address] Brachial plexus disorders [G54.0] Radiology Comment on above: Brachial plexus disorders [G54.0] Start: 10-21-2024 End: 10-21-2024 ambulatory 10/21/2024 10:15 AM EDT Infusion Center Hematology/Oncology [address] [place] [address] Wstr, Injection Layo [facility] [address] [place] [address] Daily Neupogen* Hematology/Oncology Comment on above: Daily Neupogen* Start: 10-21-2024 End: 10-21-2024 ambulatory Hematology/Oncology Comment on above: QMO KEYTRUDA/D1-TAXOL/C4-4/LAB&OV 10/20* KEYTRUDA NO LATER THAN 230 W/SAME DAY LAB QMO KEYTRUDA/D1-TAXO L/LAB&OV 10/20* KEYTRUDA NO LATER THAN 230 W/SAME DAY LAB QMO KEYTRUDA/QWK TAX OL/LAB&OV 10/20* KEYTRUDA NO LATER THAN 230 W/SAME DAY LAB DAILY NEUPOGEN/QMO K EYTRUDA/QWK TAXOL/LAB&OV 10/20* KEYTRUDA NO LATER THAN 230 W/SAME DAY LAB Start: 10-20-2024 End: 10-20-2024 ambulatory 10/20/2024 1:30 PM EDT Infusion Center Hematology/Oncology [address] [place] [address] DAILY NEUPOGEN/QMO KEYTRUDA/QWK TAXOL/LAB&OV 10/20* KEYTRUDA NO LATER THAN 230 W/SAME DAY LAB Hematology/Oncology Comment on above: DAILY NEUPOGEN/QMO KEYTRUDA/QWK TAXOL/LA B&OV 10/20* KEYTRUDA NO LATER THAN 230 W/SAME DAY LAB Start: 10-20-2024 End: 10-20-2024 ambulatory [facility] Comment on above: (SO)CBC/CMP(S)/CA15.3/TSH/T4/CORTISOL OV/LAB EARLY/CHEMO * Daily Neupogen* Start: 10-14-2024 End: 10-14-2024 ambulatory 10/14/2024 11:15 AM EDT Infusion Center Hematology/Oncology [address] [place] [address] Wstr, Injection Layo [facility] [address] [place] [address] Daily Neupogen-Patient is going out of town from 10/15-10/19* Hematology/Oncology Comment on above: Daily Neupogen-Patient is going out of t own from 10/15-10/19* Start: 10-13-2024 End: 10-13-2024 ambulatory [facility] Comment on above: CBC QWK TAXOL/LAB EARLY* DAILY NEUPOGEN/QWK T AXOL/LAB EARLY* Start: 10-12-2024 End: 10-12-2024 ambulatory 10/12/2024 3:30 PM EDT Infusion Center Hematology/Oncology [address] [place] [address] Wstr, Injection Layo [facility] [address] [place] [address] Daily Neupogen* Hematology/Oncology Comment on above: Daily Neupogen* Start: 10-12-2024 End: 10-12-2024 ambulatory 10/12/2024 11:30 AM EDT Visit (SP) Office Hematology/Oncology [address] [place] [address] Hellen Zhu DO [address] [place] [address] 4 MO OV/LAB 10/06* Hematology/Oncology Comment on above: 4 MO OV/LAB 10/06* Start: 10-09-2024 End: 10-09-2024 ambulatory 10/09/2024 2:00 PM EDT Infusion Center Hematology/Oncology [address] [place] [address] Wstr, Injection Layo [facility] [address] [place] [address] Daily Neupogen* Hematology/Oncology Comment on above: Daily Neupogen* Start: 10-07-2024 End: 11-05-2025 MR Brachial plexus - left WO and W contrast IV MRI BRACHIAL PLEXUS WO/W IVCON LEFT Radiology Routine Brachial plexus disorders Expected: 10/07/2024 (Approximate), Expires: 11/05/2025 [facility] Work Phone: Comment on above: Expected: 10/07/2024 (Approximate), Expi res: 11/05/2025 Start: 10-07-2024 End: 11-05-2025 US Breast - right limited US BREAST LTD RIGHT Radiology Routine 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) Expected: 10/07/2024 (Approximate), Expires: 11/05/2025 [facility] Comment on above: Expected: 10/07/2024 (Approximate), Expi res: 11/05/2025 Start: 10-06-2024 End: 10-06-2024 ambulatory 10/06/2024 2:30 PM EDT Results Only [facility] [address] [place] [address] CBC/CMP/TSH/T4 [facility] Comment on above: CBC/CMP/TSH/T4 Start: 10-06-2024 End: 10-06-2024 ambulatory Hematology/Oncology Comment on above: (SO)CBC/D15 TAXOL(PORT)* CBC D15 TAXOL/LAB EARLY* Start: 09-29-2024 End: 09-29-2024 ambulatory Hematology/Oncology Comment on above: (SO)CBC/D8 TAXOL(PORT)* CBC D8 TAXOL/LAB EARLY* (SO)CBC Start: 09-28-2024 End: 09-28-2024 ambulatory 09/28/2024 9:00 AM EDT Visit (SP) Office Hematology/Oncology [address] [place] [address] [place] [address] [place] [address] 2nd opinion breast ca Hematology/Oncology Comment on above: 2nd opinion breast ca Start: 09-24-2024 End: 09-24-2024 Patient encounter procedure 09/24/2024 10:30 AM EDT Office Visit [facility] [address] [place] [address] [place] [address] [place] [id number] 2ND OPINION [facility] Comment on above: 2ND OPINION Start: 09-22-2024 End: 09-22-2024 ambulatory 09/22/2024 8:30 AM EDT Infusion Center Hematology/Oncology [address] [place], [place] [address] QMO KEYTRUDA/D1-TAXOL/C3-4/LA B&OV 09/21* KEYTRUDA NO LATER THAN 230 W/SAME DAY LAB Hematology/Oncology Comment on above: QMO KEYTRUDA/D1-TAXOL/C3-4/LAB&OV 09/21* KEYTRUDA NO LATER THAN 230 W/SAME DAY LAB Start: 09-21-2024 End: 09-21-2024 ambulatory [place] Comment on above: (SO)CBC/CMP(S)/CA15.3/TSH/T4/CORTISOL(PO RT)/OV TODAY* OV(PORT)LAB EARLY/CH EMO 09/22* (SO)CBC/CMP(S)/CA15. 3/TSH/T4/CORTISOL OV/LAB EARLY/CHEMO * Start: 09-08-2024 End: 09-08-2024 ambulatory Hematology/Oncology Comment on above: (SO)CBC/D15 TAXOL(PORT)* CBC D15 TAXOL/LAB EARLY* (SO)CBC D15 KEYTRUDA/LAB EAR LY* Start: 09-01-2024 End: 09-01-2024 ambulatory Hematology/Oncology Comment on above: (SO)CBC/D8 TAXOL(PORT)* CBC D8 TAXOL/LAB EARLY* Start: 08-25-2024 End: 08-25-2024 ambulatory 08/25/2024 11:00 AM EDT Infusion Center Hematology/Oncology [address] [place] [address] QMO KEYTRUDA/D1-TAXOL/C2-4/LA B&OV 6/* KEYTRUDA NO LATER THAN 230 W/SAME DAY LAB Hematology/Oncology Comment on above: QMO KEYTRUDA/D1-TAXOL/C2-4/LAB&OV 6/2* K EYTRUDA NO LATER THAN 230 W/SAME DAY LAB Start: 08-24-2024 End: 08-24-2024 ambulatory [facility] Comment on above: (SO)CBC/CMP(S)/CA15.3/TSH/T4/CORTISOL(PO RT)/OV TODAY* OV(PORT)LAB EARLY/CH EMO 08/25* (SO)CBC/CMP(S)/CA15. 3/TSH/T4/CORTISOL OV/LAB EARLY/CHEMO * Start: 08-19-2024 Screening for malignant neoplasm of breast Mammogram Screening [facility] Start: 08-11-2024 End: 08-11-2024 ambulatory Hematology/Oncology Comment on above: (SO)CBC/D15 TAXOL(PORT)* CBC D15 TAXOL/LAB EARLY* (SO)CBC Start: 08-04-2024 End: 08-04-2024 ambulatory Hematology/Oncology Comment on above: (SO)CBC/D8 TAXOL(PORT)* CBC D8 TAXOL/LAB EARLY* Start: 07-30-2024 End: 07-30-2024 Patient encounter procedure 07/30/2024 2:00 PM EDT Appointment Radiology [address] [place] [address] Dx: Malignant neoplasm of overlapping sites of left breast in female, estrogen receptor negative (HCC) [C50.812, Z17.1]; Triple negative breast cancer (HCC) [C50.919, Z17.421]; 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, 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] Radiology Comment on above: Dx: Malignant neoplasm of overlapping si jarad of left breast in female, estrogen receptor negative (HCC) [C50.812, Z17.1]; Triple negative breast cancer (HCC) [C50.919, Z17.421]; 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, 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] Start: 07-28-2024 End: 07-28-2024 ambulatory 07/28/2024 11:00 AM EDT [facility] Hematology/Oncology [address] [place] [address] SIGN CONSENT Hematology/Oncology Comment on above: SIGN CONSENT Start: 07-16-2024 End: 07-16-2024 ambulatory 07/16/2024 11:30 AM EDT Visit (SP) Office Hematology/Oncology [address] [place] [id number] Hellen Zhu DO [address] [place] [id number] OV-Bumps on left breast, see phone encounter 07/13* Hematology/Oncology Comment on above: OV-Bumps on left breast, see phone encou nter 07/13* Start: 07-11-2024 Covid-19 Vaccine () Covid-19 Vaccine () [facility] Start: 07-11-2024 Covid-19 Vaccine (8 - Pfizer risk ) Covid-19 Vaccine (8 - Pfizer risk ) [facility] Start: 06-01-2024 End: 06-01-2024 ambulatory [facility] Comment on above: labs OV(PORT)LAB EARLY/TR EATMENT 04/07* OV(PORT)LAB EARLY/CT 05/25* Start: 05-25-2024 End: 05-25-2024 Patient encounter procedure Cat Scan Comment on above: C50.912,Z17.1 (ICD-10-CM) - Malignant ne oplasm of left breast in female, estrogen receptor negative, unspecified site of breast (HCC) Dx: Breast cancer me tast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, left (HCC) [C50.912, C77.3]; Malignant neoplasm of overlapping sites of left breast in female, estrogen receptor negative (HCC) [C50.812, Z17.1] Start: 05-20-2024 End: 08-19-2024 CREATININE BLD CREATININE BLD Lab Routine Breast cancer 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, left (HCC) Malignant neoplasm of overlapping sites of left breast in female, estrogen receptor negative (HCC) Expected: 05/20/2024, Expires: 08/19/2024 [facility] Comment on above: Expected: 05/20/2024, Expires: Start: 05-19-2024 End: 05-19-2024 ambulatory 05/19/2024 3:30 PM [facility] Hematology/Oncology [address] [place] [address] Q6WK KEYTRUDA(PORT)LAB&OV AUTH EXP 07/23/24* Hematology/Oncology Comment on above: Q6WK KEYTRUDA(PORT)LAB&OV AUTH EXP 07/23/24* Start: 2024 End: 2024 ambulatory Hematology/Oncology Comment on above: (SO)CBC/CMP(S)/TSH/T4/CORTISOL(PORT)/OV TODAY* OV(PORT)LAB EARLY/TR EATMENT 05/19* Start: 2024 Advance Directive Discussion Advance Directive Discussion [facility] Start: 2024 Screening for osteoporosis Bone Density Screening [facility] Start: 04-25-2024 Medicare Annual Wellness Visit Medicare Annual Wellness Visit [facility] Start: 04-24-2024 Screening for malignant neoplasm of breast Mammogram Screening [facility] Start: 04-17-2024 Screening for malignant neoplasm of breast Mammogram Screening [facility] Start: 04-07-2024 End: 04-07-2024 ambulatory 04/07/2024 3:30 PM [facility] Hematology/Oncology [address] [place] [address] Q6WK KEYTRUDA(PORT)LAB&OV AUTH EXP 07/23/24* Hematology/Oncology Comment on above: Q6WK KEYTRUDA(PORT)LAB&OV AUTH EXP 07/23/24* Start: 04-06-2024 End: 04-06-2024 ambulatory Hematology/Oncology Comment on above: (SO)CBC/CMP(S)/TSH/T4/CORTISOL(PORT)/OV TODAY* OV(PORT)LAB EARLY/TR EATMENT 04/07* Start: 03-07-2024 Covid-19 Vaccine () Covid-19 Vaccine () [facility] Start: 02-25-2024 End: 02-25-2024 ambulatory Hematology/Oncology Comment on above: Q6WK KEYTRUDA(PORT)LAB&OV AUTH EXP ?* Q6WK KEYTRUDA(PORT)L AB&OV AUTH EXP 12/02/24* Start: 02-24-2024 End: 02-24-2024 ambulatory Hematology/Oncology Comment on above: (SO)CBC/CMP(S)/TSH/T4/CORTISOL(PORT)/OV TODAY* OV(PORT)LAB EARLY/TR EATMENT 02/24* Start: 01-22-2024 End: 01-22-2024 Follow-up encounter 01/22/2024 2:30 PM EDT [facility] Radiation Oncology [address] [place] [address] Melony Davis MD [address] [place] [address] 4 WK FOLLOW UP* Radiation Oncology Comment on above: 4 WK FOLLOW UP* Start: 01-14-2024 End: 01-14-2024 ambulatory Hematology/Oncology Comment on above: Q3WK KEYTRUDA(PORT)LAB&OV AUTH EXP 01/10/24* Q6WK KEYTRUDA(PORT)L AB&OV AUTH EXP ?* Q6WK KEYTRUDA(PORT)L AB&OV AUTH EXP 12/02/24* Start: 01-13-2024 End: 01-13-2024 ambulatory Hematology/Oncology Comment on above: (SO)CBC/CMP(S)/TSH/T4/CORTISOL(PORT)/OV TODAY* OV(PORT)LAB EARLY/TR EATMENT 01/13* Start: 12-25-2023 End: 12-25-2023 Patient encounter procedure 12/25/2023 2:30 PM EDT Appointment Radiation Oncology [address] [place] [id number] Location: [email or web address] Comment on above: Location: [email or web address] Start: 12-24-2023 End: 12-24-2023 Patient encounter procedure Radiation Oncology Comment on above: Location: [email or web address] Location: W-ON TREAT MENT VISIT may be late Start: 12-23-2023 End: 12-23-2023 Patient encounter procedure 12/23/2023 2:30 PM EDT Appointment Radiation Oncology [address] [place], [place] [address] Location: [email or web address] Comment on above: Location: [facility] Start: 12-20-2023 End: 12-20-2023 Patient encounter procedure 12/20/2023 2:30 PM EDT Appointment Radiation Oncology [address] [place], [place] [id number] Location: [facility] Comment on above: Location: [facility] Start: 12-19-2023 End: 12-19-2023 Patient encounter procedure 12/19/2023 2:30 PM EDT Appointment Radiation Oncology [address] [place], [place] [address] Location: [email or web address] Comment on above: Location: [facility] Start: 12-18-2023 End: 12-18-2023 Patient encounter procedure Radiation Oncology Comment on above: Location: [facility] boost starts today Start: 12-17-2023 End: 12-17-2023 Patient encounter procedure Radiation Oncology Comment on above: boost starts today Location: W-ON TREAT MENT VISIT boost starts tomorro w Start: 12-16-2023 End: 12-16-2023 Patient encounter procedure Radiation Oncology Comment on above: Location: [facility] boost starts tomorro w Start: 12-13-2023 End: 12-13-2023 Patient encounter procedure 12/13/2023 2:30 PM EDT Appointment Radiation Oncology [address] [place], [place] [id number] Location: [facility] Comment on above: Location: [facility] Start: 12-12-2023 End: 12-12-2023 Patient encounter procedure 12/12/2023 2:30 PM EDT Appointment Radiation Oncology [address] [place] [address] Location: [facility] Comment on above: Location: [facility] Start: 12-11-2023 End: 12-11-2023 Patient encounter procedure 12/11/2023 2:30 PM EDT Appointment Radiation Oncology [address] [place] [address] Location: [email or web address] Comment on above: Location: [facility] Start: 12-10-2023 End: 12-10-2023 Patient encounter procedure Radiation Oncology Comment on above: Location: [facility] Location: W-ON TREAT MENT VISIT Start: 12-09-2023 End: 12-09-2023 Patient encounter procedure 12/09/2023 2:30 PM EDT Appointment Radiation Oncology [address] [place] [id number] Location: [email or web address] Comment on above: Location: [facility] Start: 12-06-2023 End: 12-06-2023 Patient encounter procedure 12/06/2023 2:30 PM EDT Appointment Radiation Oncology [address] [place] [address] Location: [email or web address] Comment on above: Location: [facility] Start: 12-05-2023 End: 12-05-2023 Patient encounter procedure Radiation Oncology Comment on above: Location: [facility] set up boost ? set up boost Location: W-ON TREAT MENT VISIT Start: 12-04-2023 End: 12-04-2023 Patient encounter procedure 12/04/2023 2:30 PM EDT Appointment Radiation Oncology [address] [place] [address] Location: [email or web address] Comment on above: Location: [facility] Start: 12-03-2023 End: 12-03-2023 ambulatory Hematology/Oncology Comment on above: Q3WK KEYTRUDA(PORT)LAB&OV EXP 1 * Q6WK KEYTRUDA(PORT)L AB&OV EXP 01/10/24* Start: 12-03-2023 End: 12-03-2023 Patient encounter procedure Radiation Oncology Comment on above: Location: [facility] Location: W-ON TREAT MENT VISIT Start: 12-02-2023 End: 12-02-2023 ambulatory Hematology/Oncology Comment on above: (SO)CBC/CMP(S)/TSH/T4/CORTISOL(PORT)/OV TODAY* OV(PORT)LAB EARLY/TR EATMENT 12/02* Start: 12-02-2023 End: 12-02-2023 Patient encounter procedure Radiation Oncology Comment on above: Location: [facility] Start: 11-29-2023 End: 11-29-2023 Patient encounter procedure 11/29/2023 2:30 PM EDT Appointment Radiation Oncology [address] [place], [place] [address] Location: [email or web address] Comment on above: Location: [facility] Start: 11-28-2023 End: 11-28-2023 Patient encounter procedure 11/28/2023 2:30 PM EDT Appointment Radiation Oncology [address] [place] [address] Location: [facility] Comment on above: Location: [facility] Start: 11-27-2023 End: 11-27-2023 Patient encounter procedure 11/27/2023 2:30 PM EDT Appointment Radiation Oncology [address] [place] [address] Location: [facility] Comment on above: Location: [facility] Start: 11-26-2023 End: 11-26-2023 Patient encounter procedure Radiation Oncology Comment on above: Location: [facility] Location: W-ON TREAT MENT VISIT Start: 11-24-2023 Covid-19 Vaccine ( season) Covid-19 Vaccine () [facility] Start: 11-24-2023 Covid-19 Vaccine () Covid-19 Vaccine () [facility] Start: 11-24-2023 Influenza vaccination [facility] Start: 11-22-2023 End: 11-22-2023 Patient encounter procedure 11/22/2023 2:30 PM EDT Appointment Radiation Oncology [address] [place] [address] Location: [email or web address] Comment on above: Location: [facility] Start: 11-22-2023 End: 11-22-2023 ambulatory 11/22/2023 9:00 AM EDT [facility] Hematology/Oncology [address] [place] [address] Q3WK KEYTRUDA(PORT)LAB&OV AUTH EXP 01/10/24* Hematology/Oncology Comment on above: Q3WK KEYTRUDA(PORT)LAB&OV 11/20/AUTH EXP 01/10/24* Start: 11-21-2023 End: 11-21-2023 Patient encounter procedure 11/21/2023 2:30 PM EDT Appointment Radiation Oncology [address] [place] [address] Location: [email or web address] Comment on above: Location: [facility] Start: 11-21-2023 End: 11-21-2023 ambulatory Hematology/Oncology Comment on above: (SO)CBC/CMP(S)/TSH/T4/CORTISOL(PORT)/OV TODAY* OV(PORT)LAB EARLY/TR EATMENT 11/21* Start: 11-20-2023 End: 11-20-2023 Patient encounter procedure 11/20/2023 2:30 PM EDT Appointment Radiation Oncology [address] [place] [address] Location: [facility] Comment on above: Location: [facility] Start: 11-19-2023 End: 11-19-2023 Patient encounter procedure Radiation Oncology Comment on above: Location: [facility] Location: W-ON TREAT MENT VISIT Start: 11-18-2023 End: 11-18-2023 Patient encounter procedure 11/18/2023 2:30 PM EDT Appointment Radiation Oncology [address] [place] [address] Location: [email or web address] Comment on above: Location: [facility] Start: 11-15-2023 End: 11-15-2023 Patient encounter procedure 11/15/2023 2:30 PM EDT Appointment Radiation Oncology [address] [place] [address] Location: [facility] Comment on above: Location: [facility] Start: 11-14-2023 End: 11-14-2023 Patient encounter procedure 11/14/2023 2:30 PM EDT Appointment Radiation Oncology [address] [place] [address] Location: [facility] Comment on above: Location: [facility] Start: 11-13-2023 End: 11-13-2023 Patient encounter procedure 11/13/2023 2:30 PM EDT Appointment Radiation Oncology [address] [place] [address] Location: [facility] On[facility] Comment on above: Location: [facility] Start: 11-12-2023 End: 11-12-2023 Patient encounter procedure Radiation Oncology Comment on above: Location: [facility] Location: W-ON TREAT MENT VISIT Start: 11-11-2023 End: 11-11-2023 Patient encounter procedure Radiation Oncology Comment on above: abc abc. verify e 230 da marcella abc. 10x Start: 11-04-2023 End: 11-04-2023 Nursing evaluation of patient and report 11/04/2023 2:45 PM EDT Nurse Visit Radiation Oncology [address] [place], [place] [id number] Wstr, Nurse Radt [facility] [address] [place] [address] Location: [facility] Radiation Oncology Comment on above: Location: [facility] Start: 11-04-2023 End: 11-04-2023 Patient encounter procedure 11/04/2023 2:15 PM EDT Office Visit Radiation Oncology [address] [place] [address] Melony Davis MD [address] [place] [address] sim at this time Radiation Oncology Comment on above: sim at this time Start: 11-01-2023 End: 11-01-2023 ambulatory Hematology/Oncology Comment on above: Q3WK KEYTRUDA(PORT)LAB&OV AUTH EXP 1 * Start: 10-31-2023 End: 10-31-2023 ambulatory Hematology/Oncology Comment on above: (SO)CBC/CMP(S)/TSH/T4/CORTISOL(PORT)/OV TODAY* OV(PORT)LAB EARLY/TR EATMENT 10/31* OV(PORT)LAB EARLY/TR EATMENT 10/31* masci Start: 10-23-2023 End: 10-23-2023 Patient encounter procedure 10/23/2023 2:30 PM EDT Office Visit Radiation Oncology [address] [place] [address] Melony Davis MD [address] [place] [address] FOLLOLW UP/SCHED XRT* Radiation Oncology Comment on above: FOLLOLW UP/SCHED XRT* Start: 10-22-2023 End: 10-22-2023 ambulatory 10/22/2023 2:30 PM EDT Infusion Center Hematology/Oncology [address] [place] [address] CBC/CMP(S)/TSH/T4/CORTISO L/Q6WK KEYTRUDA(PORT)/AUTH EXP 01/10/24* Hematology/Oncology Comment on above: CBC/CMP(S)/TSH/T4/CORTISOL/Q6WK KEYTRUDA (PORT)/AUTH EXP 01/10/24* Start: 10-11-2023 End: 10-11-2023 ambulatory 10/11/2023 9:00 AM EDT Infusion Center Hematology/Oncology [address] [place] [address] Q3WK KEYTRUDA(PORT)LAB&OV 10/09/AUTH EXP 01/10/24* Hematology/Oncology Comment on above: Q3WK KEYTRUDA(PORT)LAB&OV AUTH EXP 01/10/24* Start: 10-10-2023 End: 10-10-2023 ambulatory Hematology/Oncology Comment on above: (SO)CBC/CMP(S)/TSH/T4/CORTISOL(PORT)/OV TODAY* OV(PORT)LAB EARLY/TR EATMENT 10/10* Start: 09-20-2023 End: 09-20-2023 ambulatory 09/20/2023 8:30 AM EDT Infusion Center Hematology/Oncology [address] [place] [address] Q3WK KEYTRUDA(PORT)LAB&OV AUTH EXP 01/10/24* Hematology/Oncology Comment on above: Q3WK KEYTRUDA(PORT)LAB&OV AUTH EXP 01/10/24* Start: 09-19-2023 End: 09-19-2023 ambulatory Hematology/Oncology Comment on above: (SO)CBC/CMP(S)/TSH/T4/CORTISOL(PORT)/OV TODAY* OV(PORT)LAB EARLY/TR EATMENT 09/19* Start: 09-17-2023 End: 09-17-2023 Patient encounter procedure 09/17/2023 1:50 PM EDT Office Visit Cardiology [address] [place] [address] Malignant neoplasm of left breast in female, estrogen receptor negative, unspeci... Cardiology Comment on above: Malignant neoplasm of left breast in fem kristine, estrogen receptor negative, unspeci... Start: 08-30-2023 End: 11-29-2023 Comprehensive metabolic 2000 panel - Serum or Plasma COMPREHENSIVE METABOLIC PANEL Lab Routine Malignant neoplasm of left breast in female, estrogen receptor negative, unspecified site of breast (HCC) 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) Expected: 08/30/2023, Expires: 11/29/2023 [facility] Work Phone: Comment on above: Expected: 08/30/2023, Expires: Start: 08-30-2023 End: 11-29-2023 Thyrotropin [Units/volume] in Serum or Plasma THYROID STIMULATING HORMONE Lab Routine Malignant neoplasm of left breast in female, estrogen receptor negative, unspecified site of breast (HCC) 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) Expected: 08/30/2023, Expires: 11/29/2023 [facility] Comment on above: Expected: 08/30/2023, Expires: Start: 08-30-2023 End: 08-30-2023 [facility] Comment on above: [id number] KEYTRUDA/DYLAN/CYTOXAN/ONPRO(PORT)L AB&OV AUTH EXP 01/10/24* order for next cycle changes to 42 days Q3WK KEYTRUDA(PORT)L AB&OV 08/28 EXP 01/10/24* Start: 08-29-2023 End: 08-29-2023 ambulatory Hematology/Oncology Comment on above: CBC/CMP(PORT)OV TODAY* OV(PORT)LAB EARLY/TR EATMENT 08/29* (SO)CBC/CMP(S)/TSH/T 4/CORTISOL(PORT)/OV TODAY* Start: 08-27-2023 End: 08-27-2023 Patient encounter procedure 08/27/2023 1:50 PM EDT Office Visit Cardiology [address] [place], [place] [id number] Malignant neoplasm of left breast in female, estrogen receptor negative, unspeci... Cardiology Comment on above: Malignant neoplasm of left breast in fem kristine, estrogen receptor negative, unspeci... Start: 08-22-2023 End: 08-22-2023 Patient encounter procedure 08/22/2023 11:30 AM EDT Office Visit [facility] [address] [place] [address] Keila Christina, [address] [place] [address] regroup [facility] Comment on above: regroup Start: 08-20-2023 End: 08-20-2023 Patient encounter procedure Mammogram Comment on above: right breast diag radha left breast diag us WATCH/INS COVERAGE I SSUE/SANFORD ORDERED BUT NOT IN NETWORK/right breast diag radha Start: 08-09-2023 End: 08-09-2023 Infusion Center Hematology/Oncology Comment on above: Q3WK KEYTRUDA/DYLAN/CYTOXAN/ONPRO(PORT)L AB&OV AUTH EXP 01/10/24* check order after next cycle - changes to 42 days Q3WK KEYTRUDA (PORT) LAB&OV AUTH EXP 01/10/24* Start: 08-08-2023 End: 08-08-2023 ambulatory Hematology/Oncology Comment on above: CBC/CMP(PORT)OV TODAY* OV(PORT)LAB EARLY/TR EATMENT 08/08* masci (SO)CBC/CMP(S)/TSH/T 4/CORTISOL(PORT)/OV TODAY* Start: 08-06-2023 End: 08-06-2023 Patient encounter procedure 08/06/2023 1:50 PM EDT Office Visit Cardiology [address] [place] [address] Malignant neoplasm of left breast in female, estrogen receptor negative, unspeci... Cardiology Comment on above: Malignant neoplasm of left breast in fem kristine, estrogen receptor negative, unspeci... Start: 07-23-2023 End: 07-23-2023 Patient encounter procedure 07/23/2023 12:00 PM EDT Office Visit Cardiology [address] [place] [address] C50.812,Z17.1 (ICD-10-CM) - Malignant neoplasm of overlapping sites of left breast in female, estrogen receptor negative (HCC) Cardiology Comment on above: C50.812,Z17.1 (ICD-10-CM) - Malignant ne oplasm of overlapping sites of left breast in female, estrogen receptor negative (HCC) Start: 07-23-2023 End: 07-23-2023 ambulatory 07/23/2023 11:30 AM EDT Infusion Center Hematology/Oncology [address] [place] [address] Wstr, Lab/[place] [facility] [address] [place] [address] EKG* Hematology/Oncology Comment on above: EKG* Start: 07-22-2023 End: 10-21-2023 ACETYLCHOLINE REC BINDING AB ACETYLCHOLINE REC BINDING AB Lab Routine Malignant neoplasm of overlapping sites of left breast in female, estrogen receptor negative (HCC) Breast cancer 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, left (HCC) Palpitations Encounter for monitoring cardiotoxic drug therapy Muscle weakness Expected: 07/22/2023, Expires: 10/21/2023 [facility] Comment on above: Expected: 07/22/2023, Expires: Start: 07-22-2023 End: 10-21-2023 ACETYLCHOLINE REC BLOCKING AB ACETYLCHOLINE REC BLOCKING AB Lab Routine Malignant neoplasm of overlapping sites of left breast in female, estrogen receptor negative (HCC) Breast cancer 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, left (HCC) Palpitations Encounter for monitoring cardiotoxic drug therapy Muscle weakness Expected: 07/22/2023, Expires: 10/21/2023 [facility] Comment on above: Expected: 07/22/2023, Expires: Start: 07-22-2023 End: 10-21-2023 C reactive protein [Mass/volume] in Serum or Plasma C-REACTIVE PROTEIN Lab Routine Malignant neoplasm of overlapping sites of left breast in female, estrogen receptor negative (HCC) Breast cancer 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, left (HCC) Palpitations Encounter for monitoring cardiotoxic drug therapy Muscle weakness Expected: 07/22/2023, Expires: 10/21/2023 [facility] Comment on above: Expected: 07/22/2023, Expires: Start: 07-22-2023 End: 10-21-2023 CBC W Auto Differential panel - Blood COMPLETE BLOOD COUNT AND DIFFERENTIAL Lab STAT Malignant neoplasm of overlapping sites of left breast in female, estrogen receptor negative (HCC) Breast cancer 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, left (HCC) Palpitations Encounter for monitoring cardiotoxic drug therapy Muscle weakness Expected: 07/22/2023, Expires: 10/21/2023 [facility] Comment on above: Expected: 07/22/2023, Expires: Start: 07-22-2023 End: 10-21-2023 Comprehensive metabolic 2000 panel - Serum or Plasma COMPREHENSIVE METABOLIC PANEL Lab Routine Malignant neoplasm of overlapping sites of left breast in female, estrogen receptor negative (HCC) Breast cancer 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, left (HCC) Palpitations Encounter for monitoring cardiotoxic drug therapy Muscle weakness Expected: 07/22/2023, Expires: 10/21/2023 [facility] Comment on above: Expected: 07/22/2023, Expires: Start: 07-22-2023 End: 10-21-2023 Creatine kinase [Enzymatic activity/volume] in Serum or Plasma CREATINE KINASE/CK Lab Routine Malignant neoplasm of overlapping sites of left breast in female, estrogen receptor negative (HCC) Breast cancer 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, left (HCC) Palpitations Encounter for monitoring cardiotoxic drug therapy Muscle weakness Expected: 07/22/2023, Expires: 10/21/2023 [facility] Comment on above: Expected: 07/22/2023, Expires: Start: 07-22-2023 End: 10-21-2023 Erythrocyte sedimentation rate SEDIMENTATION RATE, WESTERGREN Lab Routine Malignant neoplasm of overlapping sites of left breast in female, estrogen receptor negative (HCC) Breast cancer 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, left (HCC) Palpitations Encounter for monitoring cardiotoxic drug therapy Muscle weakness Expected: 07/22/2023, Expires: 10/21/2023 [facility] Comment on above: Expected: 07/22/2023, Expires: Start: 07-22-2023 End: 10-21-2023 HIGH SENSITIVITY TROPONIN T HIGH SENSITIVITY TROPONIN T Lab Routine Malignant neoplasm of overlapping sites of left breast in female, estrogen receptor negative (HCC) Breast cancer 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, left (HCC) Palpitations Encounter for monitoring cardiotoxic drug therapy Muscle weakness Expected: 07/22/2023, Expires: 10/21/2023 [facility] Comment on above: Expected: 07/22/2023, Expires: Start: 07-22-2023 End: 10-21-2023 Magnesium [Mass/volume] in Serum or Plasma MAGNESIUM Lab Routine Malignant neoplasm of overlapping sites of left breast in female, estrogen receptor negative (HCC) Breast cancer 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, left (HCC) Palpitations Encounter for monitoring cardiotoxic drug therapy Muscle weakness Expected: 07/22/2023, Expires: 10/21/2023 [facility] Comment on above: Expected: 07/22/2023, Expires: Start: 07-22-2023 End: 10-21-2023 Natriuretic peptide.B prohormone N-Terminal [Mass/volume] in Serum or Plasma NT PRO BNP Lab Routine Malignant neoplasm of overlapping sites of left breast in female, estrogen receptor negative (HCC) Breast cancer 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, left (HCC) Palpitations Encounter for monitoring cardiotoxic drug therapy Muscle weakness Expected: 07/22/2023, Expires: 10/21/2023 [facility] Comment on above: Expected: 07/22/2023, Expires: Start: 07-22-2023 End: 10-21-2023 Phosphate [Mass/volume] in Serum or Plasma PHOSPHORUS INORGANIC Lab Routine Malignant neoplasm of overlapping sites of left breast in female, estrogen receptor negative (HCC) Breast cancer 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, left (HCC) Palpitations Encounter for monitoring cardiotoxic drug therapy Muscle weakness Expected: 07/22/2023, Expires: 10/21/2023 [facility] Comment on above: Expected: 07/22/2023, Expires: Start: 07-19-2023 End: 07-19-2023 ambulatory Hematology/Oncology Comment on above: Q3WK KEYTRUDA/START DYLAN/CYTOXAN/ONPRO( PORT)LAB&OV 07/17/ EXP 01/10/24* Q3WK KEYTRUDA ONLY* Start: 07-18-2023 End: 07-18-2023 ambulatory Hematology/Oncology Comment on above: CBC/CMP(PORT)OV TODAY* NEUPOGEN/D4-4/AUTH E XP 01/10/24* OV(PORT)LAB&NEUPOGEN EARLY/TREATMENT 07/18* (SO)CBC/CMP(S)/TSH/T 4/CORTISOL(PORT)/OV TODAY* Start: 07-17-2023 End: 07-17-2023 ambulatory 07/17/2023 2:45 PM EDT Infusion Center Hematology/Oncology [address] [place] [address] Wstr, Injection [place] [facility] [address] [place] [address] NEUPOGEN/D3-4/AUTH EXP 01/10/24*INJ SCHED FULL Hematology/Oncology Comment on above: NEUPOGEN/D3-4/AUTH EXP 01/10/24*INJ SCHE D FULL Start: 07-17-2023 End: 07-17-2023 ambulatory 07/17/2023 11:30 AM EDT Infusion Center Hematology/Oncology [address] [place] [address] Wstr, Lab/[place] [facility] [address] [place] [address] NEUPOGEN/D3-4/AUTH EXP 01/10/24*INJ SCHED FULL Hematology/Oncology Comment on above: NEUPOGEN/D3-4/AUTH EXP 01/10/24*INJ SCHE D FULL Start: 07-17-2023 End: 07-17-2023 Patient encounter procedure 07/17/2023 9:45 AM EDT Appointment RADIO MRI [facility] [address] [place] [address] Dx: Lymphadenopathy, axillary [R59.0] [facility] Comment on above: Dx: Lymphadenopathy, axillary [R59.0] Start: 07-16-2023 End: 08-13-2024 MR Breast - bilateral WO and W contrast IV MRI BREAST WO/W IVCON BILATERAL Radiology STAT Malignant neoplasm of overlapping sites of left breast in female, estrogen receptor negative (HCC) 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) Expected: 07/16/2023, Expires: 08/13/2024 [facility] Work Phone: Comment on above: Expected: 07/16/2023, Expires: Start: 07-16-2023 End: 07-16-2023 ambulatory 07/16/2023 8:45 AM EDT Infusion Center Hematology/Oncology [address] [place] [address] Wstr, Injection [place] [facility] [address] [place] [address] NEUPOGEN/D2-4/AUTH EXP 01/10/24* Hematology/Oncology Comment on above: NEUPOGEN/D2-4/AUTH EXP 01/10/24* Start: 05-07-2023 End: 08-06-2023 [facility] 1 Lab Routine 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 Start: 04-09-2023 Positron emission tomography with computed tomography [facility] Start: 03-25-2023 Behavioral Health Screening Behavioral Health Screening [facility] Start: 03-25-2023 Depression Assessment Depression Assessment [facility] Start: 11-23-2022 Covid-19 Vaccine ( season) Covid-19 Vaccine ( season) [facility] Start: 11-23-2022 Influenza vaccination Influenza Vaccine (#1) [facility] Start: 03-25-2022 DEPRESSION ASSESSMENT DEPRESSION ASSESSMENT [facility] Start: 11-23-2021 Influenza vaccination INFLUENZA (#1) [facility] Start: 09-18-2021 End: 10-02-2021 SARS-CoV-2 (COVID-19) RNA [Presence] in Respiratory specimen by OBI with probe detection 2019 CORONAVIRUS Microbiology Routine Nausea Expected: 09/18/2021, Expires: 10/02/2021 [facility] Work Phone: Comment on above: Expected: 09/18/2021, Expires: Start: 04-17-2021 COVID-19 VACCINE (5 - Booster) COVID-19 VACCINE (5 - Booster) [facility] Start: 03-25-2021 DEPRESSION ASSESSMENT DEPRESSION ASSESSMENT [facility] Start: 2019 RSV Vaccine (1 - 1-dose 60+ series) RSV Vaccine (1 - 1-dose 60+ series) [facility] Start: 2019 RSV Vaccine (1 - Risk 60-74 years 1-dose series) RSV Vaccine (1 - Risk 60-74 years 1-dose series) [facility] Start: 06-05-2017 HPV TESTING HPV TESTING [facility] Start: 06-05-2017 PAP TESTING PAP TESTING [facility] Start: 06-05-2017 Screening for malignant neoplasm of cervix [facility] Start: 09-05-2016 End: 09-05-2016 Appointment Appointment [facility] Work Phone: Start: 08-22-2016 End: 08-22-2016 Appointment Appointment [facility] Work Phone: Start: 05-10-2016 Mammography MAMMOGRAM [facility] Start: 05-10-2016 Screening for malignant neoplasm of breast Mammogram Screening [facility] Start: 06-05-2013 Screening for malignant neoplasm of cervix Cervical Cancer Screening [facility] Start: 2009 SHINGRIX VACCINE (1 of 2) SHINGRIX VACCINE (1 of 2) [facility] Start: 2004 COLOGUARD (FIT-DNA) COLOGUARD (FIT-DNA) [facility] Start: [address] COLONOGRAPHY [facility] Start: 2004 DIABETES SCREEN DIABETES SCREEN [facility] Start: 2004 Diabetes Screening Diabetes Screening [facility] Start: 2004 FECAL OCCULT BLOOD FECAL OCCULT BLOOD [facility] Start: 2004 Lipid panel Lipid Screening [facility] Start: 2004 LIPID SCREEN LIPID SCREEN [facility] Start: 2004 Screening for malignant neoplasm of colon [facility] Start: 2004 SIGMOIDOSCOPY SIGMOIDOSCOPY [facility] Start: 1978 Urine microalbumin profile DTAP,TDAP,TD (1 - Tdap) [facility] Start: 1977 Anxiety Screening Anxiety Screening [facility] Start: 1977 Depression Screening Depression Screening [facility] Start: 1977 HEPATITIS C SCREENING HEPATITIS C SCREENING [facility] Start: 1977 Hepatitis C screening Hepatitis C Screening [facility] Start: 1977 HIV SCREENING HIV SCREENING [facility] Start: 1977 HIV screening HIV Screening [facility] Start: 1971 Adult depression screening assessment DEPRESSION SCREENING [facility] Start: 1965 Pneumococcal vaccination Pneumococcal Vaccine (1 of 2 - PCV) [facility] NCER SEEK Lab Routine 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) 09/24/2024 10:30 PM EDT [facility] Work Phone: CBC W Auto Different ial panel - Blood CBC + DIFF Lab STAT Malignant neoplasm of left breast in female, estrogen receptor negative, unspecified site of breast (HCC) Breast cancer 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, left (HCC) Malaise and fatigue 07/04/2023 1:20 PM EDT [facility] Work Phone: Chronic hepatitis differentiation between hepatitis B and C virus panel - Serum or Plasma HEP REMOTE PANEL BL Lab Routine Malignant neoplasm of overlapping sites of left breast in female, estrogen receptor negative (HCC) Triple negative breast cancer (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) 07/28/2024 10:48 AM EDT [facility] Work Phone: Cortisol [Mass/volum e] in Serum or Plasma CORTISOL BLD Lab Routine Malignant neoplasm of left breast in female, estrogen receptor negative, unspecified site of breast (HCC) Breast cancer 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, left (HCC) Malaise and fatigue 07/04/2023 1:20 PM T [facility] Work Phone: Cortisol [Mass/volum e] in Serum or Plasma CORTISOL BLD Lab Routine Malignant neoplasm of left breast in female, estrogen receptor negative, unspecified site of breast (HCC) Breast cancer 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, left (HCC) Malaise and fatigue 10/22/2023 1:24 PM T [facility] Cortisol [Mass/volum e] in Serum or Plasma CORTISOL BLD Lab Routine Malignant neoplasm of left breast in female, estrogen receptor negative, unspecified site of breast (HCC) Breast cancer 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, left (HCC) Malaise and fatigue 12/02/2023 1:59 PM [facility] Cortisol [Mass/volum e] in Serum or Plasma CORTISOL BLD Lab Routine Malignant neoplasm of left breast in female, estrogen receptor negative, unspecified site of breast (HCC) Breast cancer 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, left (HCC) Malaise and fatigue 01/13/2024 1:16 PM EDT [facility] Cortisol [Mass/volum e] in Serum or Plasma CORTISOL BLD Lab Routine Malignant neoplasm of left breast in female, estrogen receptor negative, unspecified site of breast (HCC) Breast cancer 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, left (HCC) Malaise and fatigue 02/24/2024 2:05 PM [facility] End: 03-25-2025 CT Abdomen and Pelvis W contrast IV CT ABD/PEL W IVCON Radiology Routine Malignant neoplasm of left breast in female, estrogen receptor negative, unspecified site of breast (HCC) Breast cancer 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, left (HCC) 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) 1 Occurrences starting 02/24/2024 until 03/25/2025 [facility] Work Phone: Comment on above: 1 Occurrences starting 02/24/2024 until 03/25/2025 End: 06-17-2025 CT Abdomen and Pelvis W contrast IV CT ABD/PEL W IVCON Radiology Routine Breast cancer 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, left (HCC) Malignant neoplasm of overlapping sites of left breast in female, estrogen receptor negative (HCC) 1 Occurrences starting 05/20/2024 until 06/17/2025 [facility] Comment on above: 1 Occurrences starting 05/20/2024 until 06/17/2025 CT Abdomen and Pelvi s W contrast IV CT ABD/PEL W IVCON Radiology Routine Breast cancer 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, left (HCC) Malignant neoplasm of overlapping sites of left breast in female, estrogen receptor negative (HCC) 05/25/2024 3:34 PM [facility] End: 03-25-2025 CT Chest W contrast IV CT CHEST W IVCON Radiology Routine Malignant neoplasm of left breast in female, estrogen receptor negative, unspecified site of breast (HCC) Breast cancer 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, left (HCC) 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) 1 Occurrences starting 02/24/2024 until 03/25/2025 [facility] Comment on above: 1 Occurrences starting 02/24/2024 until 03/25/2025 End: 06-19-2025 CT Chest W contrast IV CT CHEST W IVCON Radiology Routine Breast cancer 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, left (HCC) Malignant neoplasm of overlapping sites of left breast in female, estrogen receptor negative (HCC) 1 Occurrences starting 05/20/2024 until 06/19/2025 [facility] Work Phone: Comment on above: 1 Occurrences starting 05/20/2024 until 06/19/2025 CT Chest W contrast IV CT CHEST W IVCON Radiology Routine Breast cancer 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, left (HCC) Malignant neoplasm of overlapping sites of left breast in female, estrogen receptor negative (HCC) 05/25/2024 3:34 PM EST [facility] Work Phone: End: 10-22-2025 CT Chest W contrast IV CT CHEST W IVCON Radiology STAT Malignant neoplasm of overlapping sites of left breast in female, estrogen receptor negative (HCC) 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) Triple negative breast cancer (HCC) Left arm numbness 1 Occurrences starting 09/22/2024 until 10/22/2025 [facility] Work Phone: Comment on above: 1 Occurrences starting 09/22/2024 until 10/22/2025 CT Chest W contrast IV CT CHEST W IVCON Radiology STAT Malignant neoplasm of overlapping sites of left breast in female, estrogen receptor negative (HCC) 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) Triple negative breast cancer (HCC) Left arm numbness 09/22/2024 7:42 PM EDT [facility] CT Guidance for radi ation treatment of Unspecified body region CT SIM PLANNING RADIATION ONCOLOGY Radiology Routine Malignant neoplasm of upper-outer quadrant of left breast in female, estrogen receptor negative (HCC) Ordered: 10/30/2023 [facility] Work Phone: Comment on above: Ordered: 10/30/2023 Diagnostic mammograp hy computer-aided detcj uni [facility] DIAGNOSTIC RT Radiology Routine Abnormal mammogram 10/09/2021 2:35 PM EDT [facility] Work Phone: [id number] GENOTYPI NG PANEL [id number] GENOTYPING PANEL Lab Routine Triple negative breast cancer (HCC) 11/17/2024 11:35 AM EDT [facility] End: 07-21-2024 ECG COMPLETE ECG COMPLETE ECG Routine Malignant neoplasm of overlapping sites of left breast in female, estrogen receptor negative (HCC) Breast cancer 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, left (HCC) Palpitations Encounter for monitoring cardiotoxic drug therapy Muscle weakness 1 Occurrences starting 07/22/2023 until 07/21/2024 [facility] Work Phone: Comment on above: 1 Occurrences starting 07/22/2023 until 07/21/2024 End: 07-17-2024 Echocardiography ECHO Cardiology Routine Malignant neoplasm of left breast in female, estrogen receptor negative, unspecified site of breast (HCC) Breast cancer 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, left (HCC) Encounter for monitoring cardiotoxic drug therapy Every 3 weeks for 3 Occurrences starting 07/18/2023 until 07/17/2024 [facility] Work Phone: Comment on above: Every 3 weeks for 3 Occurrences starting 07/18/2023 until 07/17/2024 End: 07-21-2024 Echocardiography ECHO Cardiology STAT Malignant neoplasm of overlapping sites of left breast in female, estrogen receptor negative (HCC) Breast cancer 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, left (HCC) Palpitations Encounter for monitoring cardiotoxic drug therapy Muscle weakness 1 Occurrences starting 07/22/2023 until 07/21/2024 [facility] Comment on above: 1 Occurrences starting 07/22/2023 until 07/21/2024 End: 02-02-2023 EGD DIAGNOSTIC EGD DIAGNOSTIC Endoscopy Routine Gastroesophageal reflux disease, unspecified whether esophagitis present Epigastric pain 1 Occurrences starting 02/02/2022 until 02/02/2023 [facility] Work Phone: Comment on above: 1 Occurrences starting 02/02/2022 until 02/02/2023 Hepatitis B virus co re Ab [Presence] in Serum HEPATITIS B CORE ANTIBODY TOTAL Lab Routine Malignant neoplasm of overlapping sites of left breast in female, estrogen receptor negative (HCC) Triple negative breast cancer (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) 07/28/2024 10:48 AM EDT [facility] Hepatitis B virus hastings rface Ab [Presence] in Serum HEPATITIS B SURFACE ANTIBODY Lab Routine Malignant neoplasm of overlapping sites of left breast in female, estrogen receptor negative (HCC) Triple negative breast cancer (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) 07/28/2024 10:48 AM EDT [facility] Hepatitis B virus hastings rface Ag [Presence] in Serum HEPATITIS B SURFACE ANTIGEN Lab Routine Malignant neoplasm of overlapping sites of left breast in female, estrogen receptor negative (HCC) Triple negative breast cancer (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) 07/28/2024 10:48 AM EDT [facility] Hepatitis C virus Ab [Presence] in Serum HEPATITIS C ANTIBODY IA WITH CONFIRMATION Lab Routine Malignant neoplasm of overlapping sites of left breast in female, estrogen receptor negative (HCC) Triple negative breast cancer (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) 07/28/2024 10:48 AM EDT [facility] Influenza virus A an d B RNA and SARS-CoV-2 (COVID-19) N gene panel - Respiratory specimen by OBI with probe detection COVID WITH FLUA+B, ROUTINE Microbiology Routine Flu-like symptoms 06/12/2022 9:59 AM EDT [facility] Work Phone: End: 05-10-2024 RADHA DIAGNOSTIC BILATERAL RAD[facility] DIAGNOSTIC BILATERAL Radiology Routine 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) Malignant neoplasm of left breast in female, estrogen receptor negative, unspecified site of breast (HCC) (HCC) Breast cancer 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, left (HCC) Triple negative breast cancer (HCC) History of right breast cancer Abnormal MRI, breast 1 Occurrences starting 04/11/2023 until 05/10/2024 [facility] Work Phone: Comment on above: 1 Occurrences starting 04/11/2023 until 05/10/2024 End: 08-23-2024 MG Breast - right Diagnostic for implant RADHA DIAGNOSTIC RIGHT Radiology Routine Malignant neoplasm of left breast in female, estrogen receptor negative, unspecified site of breast (HCC) 1 Occurrences starting 07/25/2023 until 08/23/2024 [facility] Work Phone: Comment on above: 1 Occurrences starting 07/25/2023 until 08/23/2024 MISC SEND OUT TST 1 MISC SEND OU T TST 1 Lab Routine 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) Malignant neoplasm of left breast in female, estrogen receptor negative, unspecified site of breast (HCC) (HCC) History of right breast cancer 05/10/2023 11:49 AM EST [facility] Work Phone: MR Brachial plexus - left WO and W contrast IV MRI BRACHIAL PLEXUS WO/W IVCON LEFT Radiology Routine Brachial plexus disorders 10/22/2024 9:52 AM EDT [facility] Work Phone: End: 12-16-2025 MR Brachial plexus - left WO and W contrast IV MRI BRACHIAL PLEXUS WO/W IVCON LEFT Radiology STAT Brachial plexus disorders 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) Breast cancer 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, left (HCC) Triple negative breast cancer (HCC) Neuropathy, arm, left 1 Occurrences starting 11/16/2024 until 12/16/2025 [facility] Work Phone: Comment on above: 1 Occurrences starting 11/16/2024 until 12/16/2025 MR Breast - bilatera l WO and W contrast IV MRI BREAST WO/W IVCON BILATERAL Radiology STAT Malignant neoplasm of overlapping sites of left breast in female, estrogen receptor negative (HCC) 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) 07/17/2023 11:05 AM EDT [facility] Work Phone: End: 08-13-2024 MRI BREAST 3D POST PROCESSING MRI BREAST 3D POST PROCESSING Radiology Routine Malignant neoplasm of overlapping sites of left breast in female, estrogen receptor negative (HCC) 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) 1 Occurrences starting 07/15/2023 until 08/13/2024 [facility] Comment on above: 1 Occurrences starting 07/15/2023 until 08/13/2024 MRI BREAST 3D POST PROCESSING MRI BREAST 3D POST PROCESSING Radiology Routine Malignant neoplasm of overlapping sites of left breast in female, estrogen receptor negative (HCC) 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) 07/17/2023 11:05 AM EDT [facility] Patient Education [facility] Now in Work Phone: Patient referral [facility] Work Phone: End: 09-20-2024 PET+CT Guidance for localization of tumor of Skull base to mid-thigh-- W 18F-FDG IV NM PET/CT SKULL-THIGH SUBSEQUENT Radiology Routine Malignant neoplasm of overlapping sites of left breast in female, estrogen receptor negative (HCC) Breast cancer 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, left (HCC) Triple negative breast cancer (HCC) 1 Occurrences starting 08/22/2023 until 09/20/2024 [facility] Work Phone: Comment on above: 1 Occurrences starting 08/22/2023 until 09/20/2024 SURGICAL PATHOLOGY SURGICAL PATH OLOGY Lab Routine Abnormal mammogram 10/09/2021 1:58 PM [facility] Work Phone: Thyrotropin [Units/volume] in Serum or Plasma TSH BLD Lab Routine Malignant neoplasm of left breast in female, estrogen receptor negative, unspecified site of breast (HCC) Breast cancer 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, left (HCC) Malaise and fatigue 07/04/2023 1:20 PM [facility] Work Phone: Thyrotropin [Units/volume] in Serum or Plasma THYROID STIMULATING HORMONE Lab Routine Malignant neoplasm of left breast in female, estrogen receptor negative, unspecified site of breast (HCC) 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) 10/22/2023 1:24 PM [facility] Thyrotropin [Units/volume] in Serum or Plasma TSH BLD Lab Routine Malignant neoplasm of left breast in female, estrogen receptor negative, unspecified site of breast (HCC) Breast cancer 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, left (HCC) Malaise and fatigue 12/02/2023 1:59 PM [facility] Work Phone: Thyrotropin [Units/volume] in Serum or Plasma TSH BLD Lab Routine Malignant neoplasm of left breast in female, estrogen receptor negative, unspecified site of breast (HCC) Breast cancer 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, left (HCC) Malaise and fatigue 01/13/2024 1:16 PM [facility] Work Phone: Thyrotropin [Units/volume] in Serum or Plasma TSH BLD Lab Routine Malignant neoplasm of left breast in female, estrogen receptor negative, unspecified site of breast (HCC) Breast cancer 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, left (HCC) Malaise and fatigue 02/24/2024 2:05 PM [facility] Work Phone: Thyroxine (T4) free [Mass/volume] in Serum or Plasma T4 FREE/FREE THYROX Lab Routine Malignant neoplasm of left breast in female, estrogen receptor negative, unspecified site of breast (HCC) Breast cancer 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, left (HCC) Malaise and fatigue 07/04/2023 1:20 PM EDT [facility] Work Phone: Thyroxine (T4) free [Mass/volume] in Serum or Plasma T4 FREE/FREE THYROX Lab Routine Malignant neoplasm of left breast in female, estrogen receptor negative, unspecified site of breast (HCC) Breast cancer 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, left (HCC) Malaise and fatigue 10/22/2023 1:24 PM EDT [facility] Work Phone: Thyroxine (T4) free [Mass/volume] in Serum or Plasma T4 FREE/FREE THYROX Lab Routine Malignant neoplasm of left breast in female, estrogen receptor negative, unspecified site of breast (HCC) Breast cancer 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, left (HCC) Malaise and fatigue 12/02/2023 1:59 PM [facility] Thyroxine (T4) free [Mass/volume] in Serum or Plasma T4 FREE/FREE THYROX Lab Routine Malignant neoplasm of left breast in female, estrogen receptor negative, unspecified site of breast (HCC) Breast cancer 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, left (HCC) Malaise and fatigue 01/13/2024 1:16 PM [facility] Thyroxine (T4) free [Mass/volume] in Serum or Plasma T4 FREE/FREE THYROX Lab Routine Malignant neoplasm of left breast in female, estrogen receptor negative, unspecified site of breast (HCC) Breast cancer 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, left (HCC) Malaise and fatigue 02/24/2024 2:05 PM EST [facility] Tissue Pathology bio psy report SURGICAL PATHOLOGY Lab Routine Axillary mass, right 11/04/2024 3:23 PM EDT [facility] Work Phone: End: 08-23-2024 US Breast - left limited US BREAST LTD LEFT Radiology Routine Malignant neoplasm of left breast in female, estrogen receptor negative, unspecified site of breast (HCC) 1 Occurrences starting 07/25/2023 until 08/23/2024 [facility] Comment on above: 1 Occurrences starting 07/25/2023 until 08/23/2024 US BREAST BIOPSY LEF T (POC) SURG USE ONLY US BREAST BIOPSY LEFT (POC) SURG USE ONLY Imaging Procedures Routine 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) Ordered: 04/11/2023 [facility] Work Phone: Comment on above: Ordered: 04/11/2023 End: 05-10-2024 US BREAST LTD LEFT US BREAST LTD LEFT Radiology Routine Malignant neoplasm of left breast in female, estrogen receptor negative, unspecified site of breast (HCC) (HCC) Breast cancer 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, left (HCC) Abnormal MRI, breast 1 Occurrences starting 04/11/2023 until 05/10/2024 [facility] Work Phone: Comment on above: 1 Occurrences starting 04/11/2023 until 05/10/2024 End: 05-10-2024 US BREAST LTD RIGHT US BREAST LTD RIGHT Radiology Routine History of right breast cancer Abnormal MRI, breast 1 Occurrences starting 04/11/2023 until 05/10/2024 [facility] Work Phone: Comment on above: 1 Occurrences starting 04/11/2023 until 05/10/2024 End: 06-16-2024 US Carotid arteries - bilateral US CAROTID ARTERIES [facility] Vascular Lab Routine Pulsatile tinnitus 1 Occurrences starting 06/17/2023 until 06/16/2024 [facility] Work Phone: Comment on above: 1 Occurrences starting 06/17/2023 until 06/16/2024 [facility] Immunizations Immunization Date Immunization Notes Care Provider Jayla woods 12-27-2023 influenza virus vaccine, unspecified formulation Treatment [facility] Work Phone: [facility] 02-20-2021 COVID-19 vaccine, fu ll dose (MODERNA) Joseph Vann MD Work Phone: [facility] Work Phone: 12-20-2020 influenza virus vaccine, unspecified formulation Vale Carpenter MD Work Phone: [facility] 06-24-2020 COVID-19 vaccine, ag e 12+ yr (PFIZER-BIONTECH - PURPLE TOP) Joseph Vann MD Work Phone: [facility] Work Phone: 06-03-2020 COVID-19 vaccine, ag e 12+ yr (PFIZER-BIONTECH - PURPLE TOP) Joseph Vann MD Work Phone: [facility] Work Phone: 01-05-2015 influenza virus vaccine, unspecified formulation Joseph Vann MD Work Phone: [facility] Payers Date Payer Category Payer Unknown [id number] 2024 Medicare [id number] 2024 Private Health Insurance [id number] 2024 Self-pay [id number] 2024 Medicare [id number] 2024 Medicare [id number] 2021 Unknown MADI MCKEON O ZOEY [id number] 2021[facility] [phone] [address] [place] [address] [facility] [id number] 2021 Unknown [id number] 2021 Unknown [id number] 2003 Private Health Insurance [id number] 1959 Unknown [id number] .627 1959 Unknown [id number] [id number] .627 1959 Unknown [id number] 2.16.840.1.711055.3.579.2 .627 1959 Unknown [id number] 2.16.840.1.574518.3.579.2 .627 1959 Unknown [id number] 2.16.840.1.687183.3.579.2 .627 1959 Unknown [id number] 2.16.840.1.968041.3.579.2 .627 1959 Unknown [id number] 2.16.840.1.218801.3.579.2 .627 1959 Unknown [id number] 2.16.840.1.656974.3.579.2 .627 1959 Unknown [id number] 2.16.840.1.673000.3.579.2 .627 1959 Unknown [id number] 2.16.840.1.998193.3.579.2 .627 1959 Unknown [id number] 2.16.840.1.642654.3.579.2 .627 Unknown [facility] PACKAGE PLAN [id number] Unknown [id number] 2.16.840.1.782619.3.579.2 .462 Unknown [id number] 2.16.840.1.752816.3.579.2 .462 Unknown [id number] 2.16.840.1.692395.3.579.2 .462 Unknown [id number] 2.16.840.1.219352.3.579.2 .462 Unknown [id number] 2.16.840.1.575487.3.579.2 .462 Unknown [id number] 2.16.840.1.597469.3.579.2 .462 Unknown [id number] 2.16.840.1.297112.3.579.2 .462 Unknown [id number] 2.16.840.1.615338.3.579.2 .462 Unknown [id number] [id number] .462 Unknown [id number] [id number] .462 Social History Date Type Detail Facility Start: 02-02-2022 End: 12-23-2023 Tobacco smoking status NHIS Ex-smoker [facility] Work Phone: Start: 08-23-1981 End: 08-24-1983 History of tobacco use Current smoker [facility] Work Phone: Start: 08-23-1981 End: 08-24-1983 History of tobacco use Cigarette Smoker [facility] Work Phone: Start: 09-18-2021 End: 06-01-2024 Alcohol intake Current non-drinker of alcohol (finding) [facility] Start: 1960 Sex Assigned At Not on file [facility] Start: 02-21-2020 End: 04-18-2023 Tobacco smoking status [facility] Unknown if ever smoked [facility] Start: 01-25-2020 Non-smoker [facility] Start: 1960 Sex Assigned At Female W [facility] Start: 09-29-2021 End: 02-02-2022 Exposure to SARS-CoV-2 (event) Not sure [facility] Start: 02-02-2022 End: 12-23-2023 Tobacco use and exposure Smokeless tobacco non-user [facility] Start: 02-02-2022 Tobacco Comment in her early 2 0's, none now [facility] Start: 03-12-2023 End: 12-08-2024 History of Social function [facility] Start: 03-12-2023 End: 12-08-2024 Tobacco use panel [facility] Start: 02-24-2012 National Score (1-10 0), lower number is lower risk 64 [facility] Sexual Orientation [facility] Start: 07-01-2024 Sex Female (finding) [facility] Start: 04-18-2023 Tobacco smoking stat us OHIS Never smoked tobacco (finding) [facility] Start: 07-17-2024 End: 12-08-2024 Alcoholic beverage intake Ex-drinker (finding) [facility] Medical Equipment Procedure Code Equipment Code Equipment Origin al Text Equipment Identifier Dates Insertion, vascular access port ([id number]) Vascular port/catheter [id number] [facility] Start: 04-22-2023 Goals Date Patient Goal Desired Activity /State Functional Status Date Assessment Result Facility 10-02-2023 Functional Status ice on, ice off [facility] 10-02-2023 Functional Status Maintained [facility] 09-23-2023 Functional Status Sensory Deficits None [facility] 12-03-2013 Are you deaf, or do you have serious difficulty hearing No 12/03/2013 11:[facility] Dawn MA No [facility] 12-03-2013 Are you blind, or do you have serious difficulty seeing, even when wearing glasses No 12/03/2013 11[facility] Dawn MA No [facility] 12-03-2013 Do you have serious difficulty walking or climbing stairs No 12/03/2013 11:[facility] MA No [facility] 12-03-2013 Do you have difficul ty dressing or bathing No 12/03/2013 11:[facility] 12-03-2013 Because of a physica l, mental, or emotional condition, do you have difficulty doing errands alone such as visiting a physician's office or shopping No 12/03/2013 11:[facility] MA [facility] Mental Status Date Assessment Result Facility 10-02-2023 [facility] 04-22-2023 Cognitive function Voice/Name Galina Guajardo [facility] Work Phone: 12-03-2013 Because of a physica l, mental, or emotional condition, do you have serious difficulty concentrating, remembering, or making decisions No 12/03/2013 11:08 AM EDT Jennifer Dawn MA No [facility] Clinical Notes 09-18-2021 to 12-31-2024 Telephone Encounter - Meka Gilbert - 12/08/2024 11:34 AM EDTTelephone Encounter - Meka Gilbert - 12/08/2024 11:34 AM EDHellen Miller DO - 12/08/2024 10:44 AM EDTPatient Instructions Note Date & Type Note Facility 12-31-2024 Note [facility] 12-31-2024 Note [facility] 12-29-2024 Note HNO ID: [id number] Author: BLANKA DEL RIO RN Service: ? Author Type: Registered Nurse Type: Progress Notes Filed: 12/29/2024 15:31 Note Text: Assessment unchanged from Dr Zhu office visit on 12/28/24 [facility] 12-28-2024 Note [facility] 12-08-2024 Telephone encounter Note NO AVS - FUTURE OV/TX ARE SCHEDULED ALREADY [facility] 12-08-2024 Miscellaneous Notes NO AVS - FUTURE OV/TX ARE SCHEDULED ALREADY documented in this encounter [facility] 12-08-2024 Note [facility] 12-08-2024 History of Present illness Narrative Oncologic problem(s): 1) cTx cN2a Mx ER/VA negative, HER2 negative grade 3 clinical stage IIIC invasive mammary carcinoma of the left breast. HPI: The patient is a 64 yo female with PMH as outlined below. 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 Diagnosed with lymphocytic colitis about 3 years ago. Abdominal pain/diarrhea. Treated with probiotic and magnesium supplement. Had MRI brain and PET scan at [facility] on 04/09. MRI reported with LEFT and RIGHT transposed--I dictated correct side below. MRI revealed a 1.4 x 1.0 x 0.8 cm enhancing mass in the upper outer quadrant of the LEFT breast located 2.3 cm from the nipple along the 1:00 axis. The mass is 1.9 cm from the underlying pectoralis and 1.1 cm from the skin surface. No additional abnormal enhancement was observed. There were multiple pathologically enlarged right axillary lymph nodes, at least 3 of which were included within the [id number] measuring up to 2.8 cm. No internal mammary lymphadenopathy. Postlumpectomy changes were noted in the upper inner quadrant of the RIGHT breast. There was a 4 to 5 mm focus of progressive enhancement along the superior medial aspect of the lumpectomy site which was nonspecific. No axillary adenopathy was noted. No internal mammary adenopathy was noted. A second look ultrasound of the focus of progressive enhancement in the left breast was recommended. Ultrasound-guided biopsy of right and left breast lesions on 04/24/2023. Pathology: Left breast at 1 o'clock, 4 cm from the nipple, core biopsy: - INVASIVE DUCTAL CARCINOMA, POORLY DIFFERENTIATED. - Angiolymphatic invasion present. - See comment. Estrogen receptors: NEGATIVE (0) Progesterone receptors: NEGATIVE (0) HER2/patricia: NEGATIVE (0) Right breast at 1 o'clock, 4 cm from the nipple, core biopsy: - Inflamed fibroadipose tissue with hemorrhage, stromal fibroelastosis and fat necrosis. - No malignancy identified. - See comment. Previous therapy: 1) Paclitaxel and carboplatin along with pembrolizumab. 2) AC with pembro x1 cycle. 3) Paclitaxel and pembrolizumab. For dermal metastatic recurrence. Neutropenic on day 8, cycle #2. Treatment deferred. On return 05/30, still neutropenic. Treatment deferred. Received Neulasta on 06/02. Cycles 2-4 AC held due to risk of CM and response on MRI following carbo/paclitaxel/pembro. Since last seen underwent lumpectomy with sentinel lymph node biopsy on 10/02/2023. Pathologic CR. Additional margins including deep, inferior, superior, medial, anterior and lateral all negative for carcinoma. 5 sentinel lymph nodes retrieved. All negative for disease. Biopsy dermal lesions 07/17/2024 c/w TNBC PET negative for distant matastases. Current therapy: 1) Trodelvy. Presents for ongoing oncologic management. Interim history: Hungrier than usual. No other side effect. Subjective improvement. Left arm numbness unchanged. 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) 07/25/2024 Chemotherapy induced neutropenia 10/07/2024 Condyloma acuminatum 03/25/1983 no history of recurrance since treatment COVID-19 09/2021 Lymphocytic colitis Malignant neoplasm of left breast in female, estrogen receptor negative (HCC) 04/12/2023 Malignant neoplasm of upper-outer quadrant of female breast (HCC) 05/24/1991 breast cancer treated with chemo and radiation Mass of axilla, left 03/21/2023 Mental disorder Rectal bleeding Unspecified constipation 03/25/2004 [...] torn retina repair REMV CATARACT EXTRACAP,INSERT LENS ULTRASOUND GUIDE NEEDLE BIOPSY 11/04/2024 Ultrasound Guided Core Right Axillary Biopsy US BREAST NEEDLE CORE BIOPSY LT Left 02/2023 LN bx ALLERGIES Allergen Reactions Bactrim [Sulfametho* GI Upset Current Outpatient Medications Medication Sig prochlorperazine (COMPAZINE) 10 mg tablet Take 1 tablet by mouth every 6 hours as needed for nausea/vomiting. ondansetron (ZOFRAN) 8 mg tablet Take 1 tablet by mouth every 8 hours as needed (For chemotherapy induced nausea and vomiting.). loperamide HCl (IMODIUM A-D) 2 mg tab Take 2 mg by mouth as needed. acetaminophen (TYLENOL) 325 mg tablet Take 650 mg by mouth every 6 hours as needed. Lactobacillus acidophilus (PROBIOTIC) 10 billion cell cap Take 1 capsule by mouth once daily. cimetidine (TAGAMET ORAL) Take by mouth as needed. cholecalciferol, vitamin D3, (VITAMIN D3 ORAL) Take 1,000 Units by mouth once daily. CALCIUM ORAL Take 800 mg by mouth once daily. amino acids/multivitamin (MULTIVITAMIN-AMINO ACIDS ORAL) Take 1 tablet by mouth once daily. No amino acids PAXIL 30 MG TAB Take 30 mg by mouth once daily. potassium chloride (K-TAB) 10 mEq tablet Take 1 tablet by mouth once daily. (Patient not taking: Reported on 12/08/2024) predniSONE (DELTASONE) 20 mg tablet Take 2 tablets by mouth once daily. (Patient not taking: Reported on 12/08/2024) gabapentin (NEURONTIN) 300 mg capsule Take 300 mg by mouth once daily as needed. (Patient not taking: Reported on 12/08/2024) No current facility-administered medications for this visit. Social History Tobacco Use Smoking status: Former Current packs/day: 0.00 Types: Cigarettes Start date: 08/23/1981 Quit date: 08/24/1983 Years since quittin.3 Smokeless tobacco: Never Tobacco comments: in her early 20's, none now Vaping Use Vaping status: Never Used Substance Use Topics Alcohol use: Not Currently Drug use: Never Family History Problem Relation Age of Onset other (constipation) Mother other (atrial fib) Father other (stage 4 kidney failure) Father No Known Problems Brother Hypertension Maternal Grandmother Aneurysm Maternal Grandmother brain aneurysm age 64 No Known Problems Maternal Grandfather Stroke Paternal Grandmother two light strokes 74 year of age Diabetes Paternal Grandfather Diabetes Other GRANDFATHER No family h/o breast cancer or other cancer. Has a brother. OBSTETRIC RELATED HISTORY: P0 History Breast Feeding: No. Age at of First Child: N/A. Age at Onset of Menses: 9 years of age. Age at Menopause: Early 40s (chemotherapy) years of age. Ovaries: Both intact. Uterus: Intact Exogenous Hormone Use/HRT: No. Oral Contraceptives: Age 19-32. Tubal ligation age 31. Participation of a fellow, resident, medical student, or advanced practice provider student in performing the sensitive examination was discussed with the patient or authorized traveling representative. The patient or authorized traveling representative has agreed to proceed with the sensitive examination. Scarlet Bess LPN maternal child nurse. PHYSICAL EXAM: Vitals: Blood pressure 109/62, pulse 71, temperature 36.7 C (98.1 F), temperature source Temporal, weight 54.7 kg (120 lb 8 oz), last menstrual period 12/30/2007, SpO2 100%. Well-appearing and in no acute distress. EYES: Sclerae are anicteric bilaterally. BREAST: Very nice response and dermal metastases. Photos obtained. The angiosarcoma in the upper inner right breast is smaller on palpation. ABDOMEN: The abdomen is nondistended. Extremities: No swelling or edema. Neuro: Neurologic exam unchanged--weakened handgrip left side. Can extend arm above head. Flexion extension with elbow okay. Cannot extend fingers. Genetic testing: [facility] 05/10/2023 negative for germline mutation. NGS/biomarkers/driver license agent mutation analyses: PD-L1 CPS 30 from dermal metastasis specimen 07/17/2024. HER2 ultra-low same specimen. 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 -March 2023 diagnosed with a cTx cN2a Mx ER/VA negative, HER2 negative grade 3 clinical stage IIIC invasive mammary carcinoma of the left breast. -ypT0 pN0 M0 following neoadjuvant therapy with pembrolizumab, paclitaxel and carboplatin. She did not go on to receive AC with pembrolizumab in the neoadjuvant setting due to previous history of anthracycline use and excellent radiographic response of the tumor. - Biopsy-proven dermal metastases. PET scan did not reveal metastatic disease otherwise. - Biopsy of right axillary lymph node demonstrated triple negative breast cancer. - Progressive neuropathy of the left arm. - Tolerating Trodelvy really well. Significant response of dermal metastases. Stable symptoms of plexopathy left arm. Response of angiosarcoma in right breast by exam. -Hopeful that she will have motor recovery of left arm. Recent MRI done at [facility] prior to starting Trodelvy suggested tumor was stable when compared with previous MRI. No positive symptoms of the sensory component so no medical therapy indicated currently. Plan: - Continue current therapy. - She has surgical opinion scheduled with Dr. Merino next week. 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 -Biopsy at [place] demonstrated angiosarcoma. Plan: -Surgical resection if triple negative disease response well and there is window of opportunity. Portions of this documentation were copied and pasted from my previous office visit note dated 11/16/2024 in order to provide a cohesive continuity of the history. The note has been reviewed and edited and updated as necessary. Hellen Zhu DO documented in this encounter [facility] 12-02-2024 Telephone encounter Note Patient is aware of all information. LYUBOV Hensley wanted you to know that the Trodelvy has "almost totally eradicated all the spots on my skin". Brielle Mcbride LPN [facility] 12-02-2024 Miscellaneous Notes Patient is aware of all information. LYUBOV Hensley wanted you to know that the Trodelvy has "almost totally eradicated all the spots on my skin". Brielle Mcbride LPN Can let her know the radiologist that interpreted the MRI felt there was no change in size of the tumor abutting the brachial plexus which is good. Hellen Zhu DO documented in this encounter [facility] 12-02-2024 Telephone encounter Note Can let her know the radiologist that interpreted the MRI felt there was no change in size of the tumor abutting the brachial plexus which is good. Hellen Zhu DO [facility] 12-01-2024 Telephone encounter Note Patient is aware that we just ordered the over read and we will contact her with those results once both MRI's are compared and report is available. Brielle Mcbride LPN [facility] 12-01-2024 Miscellaneous Notes Patient is aware that we just ordered the over read and we will contact her with those results once both MRI's are compared and report is available. Brielle Mcbride LPN Patient calling again for MRI results from [facility] Thank you. Order filed. Patient is aware that we did receive the report, however, the most recent MRI was not compared to the MRI she had here in September. I have requested the images from [facility]. As soon as the images are imported we can order the over read. Patient verbalized understanding. Please leave this note in the box until images are received and over read is ordered. Brielle Mcbride LPN Patient calling for results from MRI at [facility] last Th documented in this encounter [facility] 12-01-2024 Telephone encounter Note Patient calling again for MRI results from [facility] Work Phone: 12-01-2024 Telephone encounter Note Thank you. Order filed. [facility] 11-26-2024 Telephone encounter Note Patient is aware that we did receive the report, however, the most recent MRI was not compared to the MRI she had here in September. I have requested the images from [facility]. As soon as the images are imported we can order the over read. Patient verbalized understanding. Please leave this note in the box until images are received and over read is ordered. Brielle Mcbride LPN [facility] 11-26-2024 Telephone encounter Note Patient calling for results from MRI at [facility] last Th [facility] 11-20-2024 Note [facility] 11-20-2024 History of Present illness Narrative Patient presents with: Imm/Inj Pt is identified by name and birthdate: Yes. Allergies and medications reviewed. Latex allergy? No. Does this patient have: Unplanned weight loss or gain of greater than 10 pounds, or a change of appetite over the last year? No Does the patient have any concerns about safety in the home/falls? Not at risk for falls Has the patient fallen in the past year? No Does the patient have difficulty performing or completing routine daily living activities? No Does this patient have concerns about personal safety? No Is patient having pain? Pain: No=0 (pain 0 on a scale of 0-10). Health Maintenance: Reviewed and updated. Does patient have MyChart access or Caregiver proxy: yes Pt/Caregiver willingness and readiness to learn assessed: Yes. Barriers: none Nivestym injection administered, tolerated well, no immediate adverse reactions noted. KATHY Little LPN documented in this encounter [facility] 11-19-2024 Note HNO ID: [id number] Author: SCARLET BESS LPN Service: ? Author Type: Licensed Nurse Type: Progress Notes Filed: 11/19/2024 15:47 Note Text: Patient here for injection of Filgrastim. Given SQ in right arm. Patient tolerated well. Scarlet Bess LPN [facility] 11-19-2024 History of Present illness Narrative Patient here for injection of Filgrastim. Given SQ in right arm. Patient tolerated well. Scarlet Bess LPN documented in this encounter [facility] 11-19-2024 Telephone encounter Note I sent a STAT request to our [employer] library after we spoke earlier. They will send the images electronically. Brielle Mcbride LPN [facility] 11-19-2024 Miscellaneous Notes I sent a STAT request to our [employer] after we spoke earlier. They will send the images electronically. Brielle Mcbride LPN [facility] MRI called back stating they received the report. Now they are asking that the Images be sent electronically. Faxed. Scarlet Bess LPN [facility] called requesting imaging foseptember (bracheoplexis MRI) be faxed over to them at [phone] attn. [facility]. Tamar Alonso documented in this encounter [facility] 11-19-2024 Telephone encounter Note [facility] called back stating they received the report. Now they are asking that the Images be sent electronically. [facility] Work Phone: 11-19-2024 Telephone encounter Note Faxed. Scarlet Bess LPN [facility] 11-19-2024 Telephone encounter Note [facility] called requesting imaging foseptember (bracheoplexis MRI) be faxed over to them at [phone] attn. [facility] [facility]. Tamar Alonso [facility] 11-18-2024 Note HNO ID: [id number] Author: SCARLET BESS LPN Service: ? Author Type: Licensed Nurse Type: Progress Notes Filed: 11/18/2024 16:32 Note Text: Patient here for injection of filgrastim. Given SQ in right arm. Patient tolerated well. Scarlet Bess LPN [facility] 11-18-2024 History of Present illness Narrative Patient here for injection of filgrastim. Given SQ in right arm. Patient tolerated well. Scarlet Bess LPN documented in this encounter [facility] 11-17-2024 Note [facility] 11-17-2024 History of Present illness Narrative Pt given message Per Dr. Zhu .... I think it's time for her to revisit with a breast surgeon for opinion on surgery for the angiosarcoma of the right breast. Either Dr. Christina or Dr. Merino at [place]. Both have seen her. Whomever she is comfortable with. Pt states that she will contact Dr Merino for an opinion. DO Era Kyle RN documented in this encounter [facility] 11-17-2024 Telephone encounter Note Information given to pt. Kathie Adame LPN [facility] 11-17-2024 Miscellaneous Notes Information given to pt. Kathie Adame LPN I think it's time for her to revisit with a breast surgeon for opinion on surgery for the angiosarcoma of the right breast. Either Dr. Christina or Dr. Merino at [place]. Both have seen her. Whomever she is comfortable with. Hellen Zhu DO documented in this encounter [facility] 11-17-2024 Telephone encounter Note I think it's time for her to revisit with a breast surgeon for opinion on surgery for the angiosarcoma of the right breast. Either Dr. Christina or Dr. Merino at [place]. Both have seen her. Whomever she is comfortable with. Hellen Zhu DO [facility] 11-17-2024 Telephone encounter Note Schedule completed thru mid Oct [facility] Work Phone: 11-17-2024 Miscellaneous Notes Schedule completed thru mid Oct -Start Trodelvy tomorrow (day 1 day 8, every 21 days)-done -Repeat CBC and CMP tomorrow-done -CBC day 8-done -Keep Neupogen Sat and Saturday this week -Schedule stat MRI - done, schedule at [facility] 11/19/24 -Cancel Keytruda and Taxol - schedule needs updated going forward after d8 Per Nursing schedule office visit with D1 of cycle 2 of the [facility] -Start Trodelvy tomorrow (day 1 day 8, every 21 days) -Repeat CBC and CMP tomorrow -CBC day 8 -Keep Neupogen Sat and Saturday this week -Schedule stat MRI -Cancel Keytruda and Taxol documented in this encounter [facility] 11-16-2024 Telephone encounter Note -Start Trodelvy tomorrow (day 1 day 8, every 21 days)-done -Repeat CBC and CMP tomorrow-done -CBC day 8-done -Keep Neupogen Sat and Saturday this week -Schedule stat MRI - done, schedule at [facility] 11/19/24 -Cancel Keytruda and Taxol - schedule needs updated going forward after d8 Per Nursing schedule office visit with D1 of cycle 2 of the [employer] [facility] 11-16-2024 Telephone encounter Note -Start Trodelvy tomorrow (day 1 day 8, every 21 days) -Repeat CBC and CMP tomorrow -CBC day 8 -Keep Neupogen Sat and Saturday this week -Schedule stat MRI -Cancel Keytruda and Taxol [facility] 11-16-2024 Note [facility] 11-16-2024 History of Present illness Narrative Oncologic problem(s): 1) cTx cN2a Mx ER/VA negative, HER2 negative grade 3 clinical stage IIIC invasive mammary carcinoma of the left breast. HPI: The patient is a 64 yo female with PMH as outlined below. [...] tissue involved by metastatic mammary carcinoma (provisional [place] grade 3). The carcinoma cells express cytokeratin AE1/AE3, GATA3, TRPS 1, and SOX10, and are negative for PAX8, TTF-1, and CDX2, supporting mammary origin. Breast biomarker studies have been requested and results will be reported separately in a linked report. 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 Diagnosed with lymphocytic colitis about 3 years ago. Abdominal pain/diarrhea. Treated with probiotic and magnesium supplement. Had MRI brain and PET scan at [facility] on 04/09. MRI reported with LEFT and RIGHT transposed--I dictated correct side below. MRI revealed a 1.4 x 1.0 x 0.8 cm enhancing mass in the upper outer quadrant of the LEFT breast located 2.3 cm from the nipple along the 1:00 axis. The mass is 1.9 cm from the underlying pectoralis and 1.1 cm from the skin surface. No additional abnormal enhancement was observed. There were multiple pathologically enlarged right axillary lymph nodes, at least 3 of which were included within the [id number] measuring up to 2.8 cm. No internal mammary lymphadenopathy. Postlumpectomy changes were noted in the upper inner quadrant of the RIGHT breast. There was a 4 to 5 mm focus of progressive enhancement along the superior medial aspect of the lumpectomy site which was nonspecific. No axillary adenopathy was noted. No internal mammary adenopathy was noted. A second look ultrasound of the focus of progressive enhancement in the left breast was recommended. Ultrasound-guided biopsy of right and left breast lesions on 04/24/2023. Pathology: Left breast at 1 o'clock, 4 cm from the nipple, core biopsy: - INVASIVE DUCTAL CARCINOMA, POORLY DIFFERENTIATED. - Angiolymphatic invasion present. - See comment. Estrogen receptors: NEGATIVE (0) Progesterone receptors: NEGATIVE (0) HER2/patricia: NEGATIVE (0) Right breast at 1 o'clock, 4 cm from the nipple, core biopsy: - Inflamed fibroadipose tissue with hemorrhage, stromal fibroelastosis and fat necrosis. - No malignancy identified. - See comment. Previous therapy: 1) Paclitaxel and carboplatin along with pembrolizumab. 2) AC with pembro x1 cycle. Neutropenic on day 8, cycle #2. Treatment deferred. On return 05/30, still neutropenic. Treatment deferred. Received Neulasta on 06/02. Cycles 2-4 AC held due to risk of CM and response on MRI following carbo/paclitaxel/pembro. Since last seen underwent lumpectomy with sentinel lymph node biopsy on 10/02/2023. Pathologic CR. Additional margins including deep, inferior, superior, medial, anterior and lateral all negative for carcinoma. 5 sentinel lymph nodes retrieved. All negative for disease. Biopsy dermal lesions 07/17/2024 c/w TNBC PET negative for distant matastases. Current therapy: 1) Paclitaxel and pembrolizumab. Presents for ongoing oncologic management. Interim history: She is not able to extend the fingers of her left hand. Limited extension of the left hand itself. Numbness of the posterior left forearm. No symptoms of neuropathy in the right hand or arm. None in the toes. 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) 07/25/2024 Chemotherapy induced neutropenia 10/07/2024 Condyloma acuminatum 03/25/1983 no history of recurrance since treatment COVID-19 09/2021 Lymphocytic colitis Malignant neoplasm of left breast in female, estrogen receptor negative (HCC) 04/12/2023 Malignant neoplasm of upper-outer quadrant of female breast (HCC) 05/24/1991 breast cancer treated with chemo and radiation Mass of axilla, left 03/21/2023 Mental disorder Rectal bleeding Unspecified constipation 03/25/2004 [...] torn retina repair REMV CATARACT EXTRACAP,INSERT LENS ULTRASOUND GUIDE NEEDLE BIOPSY 11/04/2024 Ultrasound Guided Core Right Axillary Biopsy US BREAST NEEDLE CORE BIOPSY LT Left 02/2023 LN bx ALLERGIES Allergen Reactions Bactrim [Sulfametho* GI Upset Current Outpatient Medications Medication Sig ondansetron (ZOFRAN) 8 mg tablet Take 1 tablet by mouth every 8 hours as needed (For chemotherapy induced nausea and vomiting.). potassium chloride (K-TAB) 10 mEq tablet Take 1 tablet by mouth once daily. (Patient taking differently: Take 10 mEq by mouth once daily. Taking 1/2 tablet in am, 1/2 tablet in PM) loperamide HCl (IMODIUM A-D) 2 mg tab Take 2 mg by mouth as needed. predniSONE (DELTASONE) 20 mg tablet Take 2 tablets by mouth once daily. gabapentin (NEURONTIN) 300 mg capsule Take 300 mg by mouth once daily as needed. acetaminophen (TYLENOL) 325 mg tablet Take 650 mg by mouth every 6 hours as needed. Lactobacillus acidophilus (PROBIOTIC) 10 billion cell cap Take 1 capsule by mouth once daily. cimetidine (TAGAMET ORAL) Take by mouth as needed. cholecalciferol, vitamin D3, (VITAMIN D3 ORAL) Take 1,000 Units by mouth once daily. CALCIUM ORAL Take 800 mg by mouth once daily. amino acids/multivitamin (MULTIVITAMIN-AMINO ACIDS ORAL) Take 1 tablet by mouth once daily. No amino acids PAXIL 30 MG TAB Take 30 mg by mouth once daily. No current facility-administered medications for this visit. Facility-Administered Medications Ordered in Other Visits Medication Dose Route Frequency NaCl 0.9% iv infusion 500-999 mL/hr INTRAVENOUS PRN diphenhydrAMINE 50 mg injection (BENADRYL) 50 mg INTRAVENOUS PRN hydrocortisone sodium succinate (PF) 100 mg injection (Solu-CORTEF) 100 mg INTRAVENOUS PRN EPINEPHrine HCl (PF) 1 mg/mL (1 mL) 0.3 mg injection 0.3 mg INTRAMUSCULAR PRN Social History Tobacco Use Smoking status: Former Current packs/day: 0.00 Types: Cigarettes Start date: 08/23/1981 Quit date: 08/24/1983 Years since quittin.2 Smokeless tobacco: Never Tobacco comments: in her early 20's, none now Vaping Use Vaping status: Never Used Substance Use Topics Alcohol use: Not Currently Drug use: Never Family History Problem Relation Age of Onset other (constipation) Mother other (atrial fib) Father other (stage 4 kidney failure) Father No Known Problems Brother Hypertension Maternal Grandmother Aneurysm Maternal Grandmother brain aneurysm age 64 No Known Problems Maternal Grandfather Stroke Paternal Grandmother two light strokes 74 year of age Diabetes Paternal Grandfather Diabetes Other GRANDFATHER No family h/o breast cancer or other cancer. Has a brother. OBSTETRIC RELATED HISTORY: P0 History Breast Feeding: No. Age at of First Child: N/A. Age at Onset of Menses: 9 years of age. Age at Menopause: Early 40s (chemotherapy) years of age. Ovaries: Both intact. Uterus: Intact Exogenous Hormone Use/HRT: No. Oral Contraceptives: Age 19-32. Tubal ligation age 31. Participation of a fellow, resident, medical student, or advanced practice provider student in performing the sensitive examination was discussed with the patient or authorized traveling representative. The patient or authorized traveling representative has agreed to proceed with the sensitive examination. Brielle Mcbride LPN chaperoned. PHYSICAL EXAM: Vitals: Blood pressure 107/63, pulse 85, temperature 36.6 C (97.8 F), weight 55.8 kg (123 lb), last menstrual period 12/30/2007, SpO2 99%. Well-appearing and in no acute distress. EYES: Sclerae are anicteric bilaterally. BREAST: Photographs taken of left breast. Overall appears stable. Right breast not examined today. ABDOMEN: The abdomen is nondistended. Extremities: No swelling or edema. Neuro: Weakened handgrip left side. Can extend arm above head. Flexion extension with elbow okay. Cannot extend fingers. Genetic testing: [facility] 05/10/2023 negative for germline mutation. NGS/biomarkers/driver license agent mutation analyses: PD-L1 CPS 30 from dermal metastasis specimen 07/17/2024. HER2 ultra-low same specimen. 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 -March 2023 diagnosed with a cTx cN2a Mx ER/VA negative, HER2 negative grade 3 clinical stage IIIC invasive mammary carcinoma of the left breast. -ypT0 pN0 M0 following neoadjuvant therapy with pembrolizumab, paclitaxel and carboplatin. She did not go on to receive AC with pembrolizumab in the neoadjuvant setting due to previous history of anthracycline use and excellent radiographic response of the tumor. - Biopsy-proven dermal metastases. PET scan did not reveal metastatic disease otherwise. - Biopsy of right axillary lymph node demonstrated triple negative breast cancer. - Progressive neuropathy of the left arm. - Recommended changing therapy to Trodelvy. -I discussed the rationale, logistics, potential risks (including but not limited to fatigue, cytopenias, nausea vomiting, diarrhea, rash, neuropathy, infections and the small potential for as a consequence of severe toxicity/complications of therapy), benefits and alternatives, as well as the personnel involved in the administration of Trodelvy. I answered her questions in detail and she verbalized understanding and agreed with the recommended therapy. Please see the electronic consent document for details of doses and schedule. Plan: - Discontinue paclitaxel and pembrolizumab today. - Repeat MRI left brachial plexus. - Begin Trodelvy tomorrow. CBC/CMP/DPYD/UGT1A1 genotyping. - CBC day 8. - OV for cycle #2. 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 -Biopsy at [place] demonstrated angiosarcoma. Plan: -NGS testing on biopsy specimen from [place]. -Will refer for surgical resection if triple negative disease response well and there is window of opportunity. Portions of this documentation were copied and pasted from my previous office visit note dated 10/20/2024 in order to provide a cohesive continuity of the history. The note has been reviewed and edited and updated as necessary. Hellen Zhu DO documented in this encounter [facility] 11-16-2024 Note HNO ID: [id number] Author: SCARLET BESS LPN Service: ? Author Type: Licensed Nurse Type: Progress Notes Filed: 11/16/2024 11:19 Note Text: Patient here for injection of Filgrastim. Given SQ in right arm. Patient tolerated well. Scarlet Bess LPN [facility] 11-16-2024 History of Present illness Narrative Patient here for injection of Filgrastim. Given SQ in right arm. Patient tolerated well. Scarlet Bess LPN documented in this encounter [facility] 11-14-2024 Note [facility] 11-14-2024 History of Present illness Narrative FOLLOW UP VISIT NAME: Carrie Hensley [facility] NO.: [id number] DATE OF SERVICE: 11/11/2024 : 1960 REFERRING PHYSICIAN: Shellie reports the onset of cutaneous lesions on the left breast approximately 6 weeks ago. She was unaware of the potential significance of these lesions and did not seek medical attention earlier. Upon examination by her oncologist yesterday, she was informed that the lesions might represent a recurrence of breast cancer. She inquires about the treatability of this condition. Her medical history is significant for breast cancer, with a lumpectomy performed on the left breast in September of last year, followed by chemotherapy and radiation therapy. She also has a history of breast cancer on the right side, treated with a lumpectomy 30 years ago. She has an allergy to Bactrim. I performed punch biopsies of two larger sites in the spring. Pathology returned as: Invasive carcinoma involving dermis. Patient now has imaging in the right axilla which demonstrates: IMPRESSION: Finding 1: The 3 cm irregular mass in the right breast is a known malignancy. Follow up with ACR and NCCN guidelines. Finding 2: The lymph node in the right axilla is suspicious for malignancy. Ultrasound-guided biopsy is recommended. I performed a right ultrasound-guided core biopsy of the right axillary abnormality on November 04, 2024. Pathology returned as: FINAL DIAGNOSIS Right axillary lymph node, core biopsy: - Poorly-differentiated carcinoma; see comment. - Skeletal muscle, not involved by carcinoma. The findings are of a poorly-differentiated carcinoma involving fibrous tissue, and the immunoprofile is consistent with breast origin. This may represent lymph node or soft tissue metastasis or invasive carcinoma arising at this site. Additional correlation is recommended Component ER status Negative (less than 1%) ER % staining 0 Estrogen Receptor (Average Staining Intensity) Not Applicable Estrogen Receptor Status of Internal Control Internal control absent; external controls stain as expected VA status Negative (less than 1%) VA % staining 0 Progesterone Receptor (Average Staining Intensity) Not Applicable Progesterone Receptor Status of Internal Control Internal control absent; external controls stain as expected HER2 IHC Status NEGATIVE (Score 0+) - Membrane staining that is incomplete and is faint / barely perceptible and in less than or equal to 10% of tumor cells (0+ / with membrane staining) VITALS: Pulse 71, temperature 36.6 C (97.8 F), last menstrual period 12/30/2007, SpO2 99%. On examination, patient has no bruising of the biopsy site and the site is healed. Assessment IMPRESSION: Status post right axillary mass biopsy poorly deferred carcinoma likely of breast origin PLAN: If the patient notes any problems or signs of infection or other difficulties, the patient should contact me immediately. Diagnoses: (R22.31) Axillary mass, right (primary encounter diagnosis) Return to Clinic: The patient is instructed to follow-up with me as needed. Mary Green MD documented in this encounter [facility] 11-11-2024 Telephone encounter Note Patient was already schedule for a neupogen shot Saturday11/16/24 and then lab work and office visit later in the day. I rescheduled the lab work for piror to the neupogen shot [facility] 11-11-2024 Miscellaneous Notes Patient was already schedule for a neupogen shot Saturday11/16/24 and then lab work and office visit later in the day. I rescheduled the lab work for piror to the neupogen shot WBC 23.96. Hold neupogen tomorrow? 1:02 PM PM Hellen Zhu, DO Yes. Hold this week. Recheck Saturday and plan Neupogen then. Per secure chat. Appts canceled. Please schedule for lab on Saturday. Thank you. documented in this encounter [facility] 11-10-2024 Telephone encounter Note WBC 23.96. Hold neupogen tomorrow? 1:02 PM PM Hellen Zhu, DO Yes. Hold this week. Recheck Saturday and plan Neupogen then. Per secure chat. Appts canceled. Please schedule for lab on Saturday. Thank you. [facility] 11-10-[address] Zhu saw pt chairside. Pt made aware of bx results. Dr. Zhu will see pt next week to f/u with increasing numbness in L arm. Pt given educational information on Trodelvy. [facility] 11-10-[address] Zhu saw pt chairside. Pt made aware of bx results. Dr. Zhu will see pt next week to f/u with increasing numbness in L arm. Pt given educational information on Trodelvy. Pt asking about her biopsy results. Currently here for treatment in Rm 2. Pt also states she is having more weakness in her L arm/hand. Wanted to make you aware. documented in this encounter [facility] 11-10-2024 Telephone encounter Note Pt asking about her biopsy results. Currently here for treatment in Rm 2. Pt also states she is having more weakness in her L arm/hand. Wanted to make you aware. [facility] 11-09-2024 Note [facility] 11-09-2024 History of Present illness Narrative Patient presents with: Imm/Inj Pt is identified by name and birthdate: Yes. Allergies and medications reviewed. Latex allergy? No. Does this patient have: Unplanned weight loss or gain of greater than 10 pounds, or a change of appetite over the last year? No Does the patient have any concerns about safety in the home/falls? Not at risk for falls Has the patient fallen in the past year? No Does the patient have difficulty performing or completing routine daily living activities? No Does this patient have concerns about personal safety? No Is patient having pain? Pain: No=0 (pain 0 on a scale of 0-10). Health Maintenance: Reviewed and updated. Does patient have MyChart access or Caregiver proxy: yes Pt/Caregiver willingness and readiness to learn assessed: Yes. Barriers: none Nivestym injection administered, right arm, tolerated well, no immediate adverse reactions noted. Kathie Adame LPN documented in this encounter [facility] 11-06-2024 Telephone encounter Note Pt notified via telephone. She is aware to let staff know if diarrhea is not any better by Saturday. [facility] Work Phone: 11-06-2024 Miscellaneous Notes Pt notified via telephone. She is aware to let staff know if diarrhea is not any better by Saturday. Advise her to stop it altogether. Let us know if diarrhea does not subside by Saturday. We have to bear in mind that the diarrhea can be from immunotherapy. Hellen Zhu DO Pt has been taking potassium chloride 10meq daily since 10/27. Pt c/o upset stomach and diarrhea up to 10 BM per day since she's been taking it. Potassium from 11/02 was 4.3. Pt is wanting to know if she can just take half a pill per day or not take it at all due to this side effect. Please advise, thank you. Ankit documented in this encounter [facility] 11-06-2024 Telephone encounter Note Advise her to stop it altogether. Let us know if diarrhea does not subside by Saturday. We have to bear in mind that the diarrhea can be from immunotherapy. Hellen Zhu DO [facility] 11-06-2024 Telephone encounter Note Pt has been taking potassium chloride 10meq daily since 10/27. Pt c/o upset stomach and diarrhea up to 10 BM per day since she's been taking it. Potassium from 11/02 was 4.3. Pt is wanting to know if she can just take half a pill per day or not take it at all due to this side effect. Please advise, thank you. Ankit [facility] 11-05-2024 Note [facility] 11-05-2024 History of Present illness Narrative Patient presents with: Imm/Inj Pt is identified by name and birthdate: Yes. Allergies and medications reviewed. Latex allergy? No. Does this patient have: Unplanned weight loss or gain of greater than 10 pounds, or a change of appetite over the last year? No Does the patient have any concerns about safety in the home/falls? Not at risk for falls Has the patient fallen in the past year? No Does the patient have difficulty performing or completing routine daily living activities? No Does this patient have concerns about personal safety? No Is patient having pain? Pain: No=0 (pain 0 on a scale of 0-10). Health Maintenance: Reviewed and updated. Does patient have MyChart access or Caregiver proxy: yes Pt/Caregiver willingness and readiness to learn assessed: Yes. Barriers: none Nivestym injection administered, right arm, tolerated well, no immediate adverse reactions noted. Kathie Adame LPN documented in this encounter [facility] 11-05-2024 Note [facility] 11-05-2024 History of Present illness Narrative FOLLOW UP VISIT NAME: Carrie Hensley [facility] NO.: [id number] DATE OF SERVICE:November 05, 2024 : 1960 REFERRING PHYSICIAN: Ken Zarco MD Carrie is a patient I am following for suspicious skin lesions. Shellie reports the onset of cutaneous lesions on the left breast approximately 6 weeks ago. She was unaware of the potential significance of these lesions and did not seek medical attention earlier. Upon examination by her oncologist yesterday, she was informed that the lesions might represent a recurrence of breast cancer. She inquires about the treatability of this condition. Her medical history is significant for breast cancer, with a lumpectomy performed on the left breast in September of last year, followed by chemotherapy and radiation therapy. She also has a history of breast cancer on the right side, treated with a lumpectomy 30 years ago. She has an allergy to Bactrim. I performed punch biopsies of two larger sites in the spring. Pathology returned as: Invasive carcinoma involving dermis. Patient now has imaging in the right axilla which demonstrates: IMPRESSION: Finding 1: The 3 cm irregular mass in the right breast is a known malignancy. Follow up with ACR and NCCN guidelines. Finding 2: The lymph node in the right axilla is suspicious for malignancy. Ultrasound-guided biopsy is recommended. VITALS: Blood pressure 106/58, pulse 88, temperature 36.8 C (98.2 F), temperature source Temporal, resp. rate 14, height 165.1 cm (5' 5"), weight 55.3 kg (122 lb), last menstrual period 12/30/2007, SpO2 99%. On examination, there is a palpable area in the right axilla consistent with the abnormal lymph node. PROCEDURE: Ultrasound Guided Core Right Axillary Biopsy The risks, benefits and anticipated outcomes of the procedure, the risks and benefits of the alternatives to the procedure, and the roles and tasks of the personnel to be involved, were discussed with the patient, and the patient consents to the procedure and agrees to proceed. After explaining the procedure and consent was obtained,Carrie was positioned. The abnormality in the right axilla was identified by ultrasound. Lidocaine was injected in to the skin and a small stab incision was made. The [employer] core biopsy needle was inserted into the stab incision and advanced. Multiple core were obtained with ultrasound demonstrating targeting into the lesion. A marker clip was then placed via ultrasound guidance. Steristrips were applied to the incision. A bandage was applied to the needle site. Carrie tolerated the procedure well. Assessment IMPRESSION: Status post ultrasound-guided core biopsy right axillary suspicious lymph node PLAN: If the patient notes any problems or signs of any infections, the patient should contact me immediately. I will call the patient when we have final pathology results Diagnoses: (R22.31) Axillary mass, right (primary encounter diagnosis) Return to Clinic: The patient is instructed to follow-up with me in 1 week. Mary Green MD UNIVERSAL PROTOCOL / SAFETY CHECKLIST Procedure to be Performed: Right ultrasound guided lymph ode biopsy with clip placement Sign In: A Moment of CARE was completed. Appropriate PPE (Personal Protective Equipment) worn by all providers involved with the procedure. Special equipment utilized ultrasound. Patient/Surrogate Stated/Verified: Patient name, Date of , Relevant allergies, and The intended procedure Time Out: Relevant labs, photos, and/or imaging studies have been reviewed. Intended patient and procedure match the source document(s) (e.g. consent, H&P, associated studies [imaging, pathology]) match the intended patient and procedure. Consent obtained and matches the intended procedure. Yes. Correct side/site has been marked and visible. Medications required for this procedure are verified. Fire risk assessed and is not applicable. Implants: are not applicable. Sign Out: Specimens are all correctly labeled and sent. All instruments, equipment, possible retained foreign bodies are accounted for. Yes. The post-procedure plan of care has been communicated to the patient or surrogate. documented in this encounter [facility] 11-04-2024 Note [facility] 11-04-2024 History of Present illness Narrative Patient here for injection of Filgrastim. Given SQ in right arm. Patient tolerated well. Given late, pt was called from Gen Surg to come to her apt. Pt left our waiting room to go up to Gen Surg and returned to our dept for injection after her apt was completed upstairs. Scarlet Bess LPN documented in this encounter [facility] 11-04-2024 Note [facility] 11-04-2024 Instructions Tena Bailey RN - 11/04/2024 2:34 PM EDT The following instructions are important for you related to your office visit today with the [facility] General Surgeons. Instructions After OFFICE BASED lymph node BIOPSY Please do not take aspirin or other blood thinners for the next few days. After the procedure, Steri-Strips and a dressing will be placed on your small incision. The dressing may be removed in two to three days after the procedure. The Steri-Strips should be left in place until they fall off. If you have bleeding from the biopsy site, hold pressure with a clean gauze. If the bleeding continues, contact our office immediately. I recommend taking Advil or Tylenol for the discomfort. If you have significant bruising, an ice pack may improve your discomfort. Please make an appointment to return to our office in 7 days. If you note any additional difficulties, questions, or concerns, you should contact our office immediately @ [phone] and ask to be transferred to the General Surgery department. documented in this encounter [facility] 11-04-2024 Telephone encounter Note I will notify her when she is here today for her injection. Scarlet Bess LPN [facility] 11-04-2024 Miscellaneous Notes I will notify her when she is here today for her injection. Scarlet Bess LPN Can let her know I left a VM for Dr. Merino to discuss the plan. Hellen Zhu DO Patient states she called Dr Merino's office ad was told they are scheduling out to mid-November for a biopsy. She is willing to go to [place] for a biopsy if the have something sooner. Scarlet Bess LPN Patient asking if Dr Davis spoke to you about this? Does she need to have biopsy? Had an ultrasound done the other day ordered by Dr Mancera. Patient feeling extremely anxious. Scarlet Bess LPN Pt.pt. states has an enlarged lymph node in right axilla, found on ultrasound. Wondering "is it cancer"? Also wants Dr. Zhu's opinion concerning, She would like to have a lumpectomy on right side with removal of the enlarged lymph node, knows she would have to be off the Taxol in order to do this. Last time she went off the Taxol her left breast went crazy with metastatic cancer. Your thoughts? Option? Kathie Adame LPN documented in this encounter [facility] 11-04-2024 Telephone encounter Note Can let her know I left a VM for Dr. Merino to discuss the plan. Hellen Zhu DO [facility] 11-03-2024 Note [facility] 11-03-2024 Procedure note Patient arrives for C2 D15 Taxol. States that after her ultrasound (10/28/24) on right breast her skin is red and warm to touch. Pt states it is right were her tumor is and wanted Dr Zhu to be aware. Denies any pain at the site. Golf ball size round area noted with erythema and warmth noted. Pt states that she would just like them to take it out but understands and trusts Dr Zhu. Pt awaiting date for biopsy of lymph node. Era Burleson RN [facility] Work Phone: 11-03-2024 Note [facility] 11-03-2024 Procedure note BEDSIDE PROCEDURE NOTE Procedures SIGNATURE: Era Burleson RN PATIENT NAME: Carrie Herbert DATE: November 03, 2024 TIME: 3:36 PM [facility] 11-03-2024 Procedure note Patient arrives for C2 D15 Taxol. States that after her ultrasound (10/28/24) on right breast her skin is red and warm to touch. Pt states it is right were her tumor is and wanted Dr Zhu to be aware. Denies any pain at the site. Golf ball size round area noted with erythema and warmth noted. Pt states that she would just like them to take it out but understands and trusts Dr Zhu. Pt awaiting date for biopsy of lymph node. Era Burleson RN BEDSIDE PROCEDURE NOTE Procedures SIGNATURE: Era Burleson RN PATIENT NAME: Carrie Herbert DATE: November 03, 2024 TIME: 3:36 PM documented in this encounter [facility] 11-02-2024 Telephone encounter Note Patient requesting refill of Zofran, nausea due to oral potassium. Scarlet Bess LPN [facility] 11-02-2024 Miscellaneous Notes Patient requesting refill of Zofran, nausea due to oral potassium. Scarlet Bess LPN documented in this encounter [facility] 11-02-2024 Telephone encounter Note Patient states she called Dr Merino's office ad was told they are scheduling out to mid-November for a biopsy. She is willing to go to [place] for a biopsy if the have something sooner. Scarlet Bess LPN [facility] 11-02-2024 Note HNO ID: [id number] Author: SCARLET BESS LPN Service: ? Author Type: LICENSED NURSE Type: Progress Notes Filed: 11/02/2024 15:45 Note Text: Patient here for injection of Filgrastim. Given SQ in right arm. Patient tolerated well. Scarlet Bess LPN [facility] 11-02-2024 History of Present illness Narrative Patient here for injection of Filgrastim. Given SQ in right arm. Patient tolerated well. Scarlet Bess LPN documented in this encounter [facility] 10-30-2024 Note HNO ID: [id number] Author: SCARLET BESS LPN Service: ? Author Type: LICENSED NURSE Type: Progress Notes Filed: 10/30/2024 11:14 Note Text: Patient here for injection of Zarxio. Given SQ in right arm. Patient tolerated well. Scarlet Bess LPN [facility] 10-30-2024 Telephone encounter Note Patient asking if Dr Davis spoke to you about this? Does she need to have biopsy? Had an ultrasound done the other day ordered by Dr Mancera. Patient feeling extremely anxious. Scarlet Bess LPN [facility] 10-29-2024 Telephone encounter Note Pt.pt. states has an enlarged lymph node in right axilla, found on ultrasound. Wondering "is it cancer"? Also wants Dr. Zhu's opinion concerning, She would like to have a lumpectomy on right side with removal of the enlarged lymph node, knows she would have to be off the Taxol in order to do this. Last time she went off the Taxol her left breast went crazy with metastatic cancer. Your thoughts? Option? Kathie Adame LPN [facility] 10-29-2024 Note [facility] 10-28-2024 Note [facility] 10-28-2024 History of Present illness Narrative Radiation Oncology - Follow Up Note PATIENT NAME: Carrie Herbert PATIENT DIAGNOSIS: 1. 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 h/o clinical stage IIIC, cT1 cN2a, invasive mammary carcinoma of the left breast, s/p neoadjuvant chemotherapy and pembro, s/p left breast lumpectomy and sentinel node biopsy on 10/02/23. Complete pathologic response with ypT0 and ypN0. s/p radiation treatment finished on 12/25/23. It's ER negative (<1%), VA negative (<1%) and Her2 1+. 2. h/o right breast cancer 30 years ago treated with right breast lumpectomy, radiation treatment and chemotherapy. 3. Angiosarcoma of the right breast. INTERVAL HISTORY: 64 year old woman with history of right breast cancer about 30 year ago. At that time she was treated with right breast lumpectomy followed by [facility] [place] and adjuvant chemotherapy. She reports that her lymph node was not involved at that time and she didn't have hormone therapy. She was diagnosed with clinical stage IIIC, cT1 cN2a, invasive mammary carcinoma of the left breas in 2023 and was treated with neoadjuvant chemotherapy with Paclitaxel and carboplatin along with pembrolizumab and then AC with pembro. She then had left breast lumpectomy and sentinel node biopsy on 10/02/23. Pathology showed no residual malignancy in the left breast. Five sentinel nodes were negative for metastasis. She had radiation treatment with 6000 cGy in 30 fractions from 11/11/23 - 12/25/23 She had recurrence with multiple dermal lesion early this year and biopsy of dermal lesions on 07/17/24 showed findings consistent with triple negative breast cancer. She was also found to have right breast mass and biopsy showed angiosarcoma. PET/CT scan on 08/04/24 showed a right breast mass with SUV of 2.6 concerning for malignancy. There was marked skin thickening and increased uptake throughout much of the left breast. She was started on chemotherapy with paclitaxel and pembrolizumab. She had pain in the left arm started about four months ago. She also reports numbness in left arm/hand. She denies any focal weakness. She reports that pain improved after she was started on chemotherapy and now almost all resolved. Numbness improved as well. MRI brachial plexus on 10/25/24 showed ill defined mass measuring 5.6 x 2.2 x 1.1 cm along the brachial plexus suspicious for metastatic disease. US of the right breast today showed a 3 cm irregular right breast mass and a lymph node in the right axilla measuring 6 mm. Allergies Allergen Reactions Bactrim [Sulfametho* GI Upset MEDICATIONS: ondansetron (ZOFRAN) 8 mg tablet^Take 1 tablet by mouth every 8 hours as needed (For chemotherapy induced nausea and vomiting.).^Disp: 30 tablet^Rfl: 2 potassium chloride (K-TAB) 10 mEq tablet^Take 1 tablet by mouth once daily.^Disp: 30 tablet^Rfl: 2 loperamide HCl (IMODIUM A-D) 2 mg tab^Take 2 mg by mouth as needed.^Disp: ^Rfl: predniSONE (DELTASONE) 20 mg tablet^Take 2 tablets by mouth once daily.^Disp: ^Rfl: (Patient not taking: Reported on 10/26/2024) gabapentin (NEURONTIN) 300 mg capsule^Take 300 mg by mouth once daily as needed.^Disp: ^Rfl: acetaminophen (TYLENOL) 325 mg tablet^Take 650 mg by mouth every 6 hours as needed.^Disp: ^Rfl: Lactobacillus acidophilus (PROBIOTIC) 10 billion cell cap^Take 1 capsule by mouth once daily.^Disp: ^Rfl: cimetidine (TAGAMET ORAL)^Take by mouth as needed.^Disp: ^Rfl: cholecalciferol, vitamin D3, (VITAMIN D3 ORAL)^Take 1,000 Units by mouth once daily.^Disp: ^Rfl: CALCIUM ORAL^Take 800 mg by mouth once daily.^Disp: ^Rfl: amino acids/multivitamin (MULTIVITAMIN-AMINO ACIDS ORAL)^Take 1 tablet by mouth once daily. No amino acids^Disp: ^Rfl: PAXIL 30 MG TAB^Take 30 mg by mouth once daily. ^Disp: ^Rfl: 0 PHYSICAL EXAM: VS: BP 124/68 Pulse 71 Temp 37.2 C (99 F) (Temporal) Wt 55.8 kg (123 lb) LMP 12/30/2007 SpO2 99% BMI 20.64 kg/m KPS: 90 General Appearance: Alert and oriented. No acute distress. Left arm strength 5/5. ROM intact. ASSESSMENT AND PLAN: 64 year old woman with 1. 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 h/o clinical stage IIIC, cT1 cN2a, invasive mammary carcinoma of the left breast, s/p neoadjuvant chemotherapy and pembro, s/p left breast lumpectomy and sentinel node biopsy on 10/02/23. Complete pathologic response with ypT0 and ypN0. s/p radiation treatment finished on 12/25/23. It's ER negative (<1%), VA negative (<1%) and Her2 1+. 2. h/o right breast cancer 30 years ago treated with right breast lumpectomy, radiation treatment and chemotherapy. 3. Angiosarcoma of the right breast. Regarding her left brachial plexus mass, she had previous radiation treatment to that area last year. Meaning dose of addition radiation treatment will have risks of radiation brachial plexopathy. Palliative radiation treatment can be considered if she has uncontrolled symptoms with understanding that radiation itself can give her neurologic symptoms later on. However, as her symptoms have improved with chemotherapy, I recommend continuation of systemic therapy. Regarding her angiosarcoma, I discuss the results of her ultrasound today with the radiologist, Dr. RUIZ. He told me that when compared to her previous ultrasound in July, the size of the mass is about the same. Regarding her lymph node, he told me that it's not clear if the ultrasound in July done at the [facility] scanned that region. I will talk to Dr. Zhu about my recommendation. Signed by: Melony Davis MD cc: Ken Zarco ([facility]) [facility] [address] [place] [address] Radiation Therapy - Nursing Note (Follow-up) PATIENT NAME: Carrie Herbert PATIENT October 28, 2024 [facility] FACILITY/LOCATION: [place] Reason for visit: Follow up to discuss treatment options. Subjective Data we are going to talk about several places, L shoulder and chest area" Additional Data Do you want to see a Psychology Clinician? No Nursing Assessment Fatigue: none Appetite: good Weight Gain/Loss: No Last 6 Encounter Wt Readings: Date: Wt: 10/27/2024 55.8 kg (123 lb) 10/26/2024 56.2 kg (124 lb) 10/21/2024 55.8 kg (123 lb) 10/20/2024 56.2 kg (124 lb) 10/13/2024 56.2 kg (124 lb) 09/29/2024 56 kg (123 lb 8 oz) Bowel Function: normal bowel movements Bone Pain: a little pain, neuropathy in left arm and shoulder, has been going on 4 months Focused Assessment GENERAL: No additional assessment areas noted. SIGNED by: Stacie Roger RN documented in this encounter [facility] 10-28-2024 Note [facility] 10-28-2024 Note [facility] 10-26-2024 Telephone encounter Note Spoke w pt and she is scheduled for 10/[address] Davis. Tamar Alonso [facility] 10-26-2024 Miscellaneous Notes Spoke w pt and she is scheduled for 10/[address] Davis. Tamar Alonso Wes Blue, I reviewed her MRI and I appreciate the brachial plexus mass likely to be metastasis. However, just like her skin metastases, she had full dose of radiation treatment to the area of brachial plexus and any meaningful additional dose will give her risks of radiation brachial plexopathy. Therefore, if her symptoms improve with systemic therapy, then palliative RT can be reserved for later. If she has progressive symptoms, then I will offer palliative RT. I understand that she wants to see me. I will see and assess her. Melony Lubin PSS- patient would like to see Dr. Ryan ABREU. Brielle Mcbride LPN Actually Dr. Mancera called me about it about half hour ago. I don't think the CT chest went high enough to see the mass. He recommended she see DR. Davis for opinion on radiation. We can continue her current treatment. Hellen Zhu DO Shellie would like for you to look at her MRI done 10/22/24 and get your take on it? Kathie Adame LPN documented in this encounter [facility] 10-26-2024 Telephone encounter Note Hi Hellen, I reviewed her MRI and I appreciate the brachial plexus mass likely to be metastasis. However, just like her skin metastases, she had full dose of radiation treatment to the area of brachial plexus and any meaningful additional dose will give her risks of radiation brachial plexopathy. Therefore, if her symptoms improve with systemic therapy, then palliative RT can be reserved for later. If she has progressive symptoms, then I will offer palliative RT. I understand that she wants to see me. I will see and assess her. Melony Lubin [facility] Work Phone: 10-26-2024 Telephone encounter Note PSS- patient would like to see Dr. Ryan ABREU. Brielle Mcbride LPN [facility] 10-26-2024 Telephone encounter Note Actually Dr. Mancera called me about it about half hour ago. I don't think the CT chest went high enough to see the mass. He recommended she see DR. Davis for opinion on radiation. We can continue her current treatment. Hellen Zhu DO [facility] 10-26-2024 Telephone encounter Note Shellie would like for you to look at her MRI done 10/22/24 and get your take on it? Kathie Adame LPN [facility] 10-26-2024 Note [facility] 10-23-2024 Note HNO ID: [id number] Author: SCARLET BESS LPN Service: ? Author Type: LICENSED NURSE Type: Progress Notes Filed: 10/23/2024 09:36 Note Text: Patient here for injection of filgrastim. Given SQ in right arm. Patient tolerated well. Scarlet Bess LPN [facility] 10-23-2024 History of Present illness Narrative Patient here for injection of filgrastim. Given SQ in right arm. Patient tolerated well. Scarlet Bess LPN documented in this encounter [facility] 10-22-2024 Note HNO ID: [id number] Author: SCARLET BESS LPN Service: ? Author Type: LICENSED NURSE Type: Progress Notes Filed: 10/22/2024 14:29 Note Text: Patient here for injection of filgrastim. Given SQ in left arm. Patient tolerated well. Scarlet Bess LPN [facility] 10-22-2024 History of Present illness Narrative Patient here for injection of filgrastim. Given SQ in left arm. Patient tolerated well. Scarlet Bess LPN documented in this encounter [facility] 10-22-2024 History of Present illness Narrative Radiology Service Progress Note DATE OF SERVICE: October 22, 2024 TIME: 9:10 AM PATIENT IDENTITY VERIFICATION COMPLETED USING TWO (2) STANDARD IDENTIFIERS: Name and Date of confirmed by patient verbally. FALL SCREENING: Has the patient had 2 falls in the last year or 1 fall with injury or currently using an Ambulatory Assistive Device (Walker, Cane, Wheelchair, Crutches, etc.)? No PATIENT GENDER DATA: Assigned female at . status: : No status: NO. PATIENT RELEVANT IMPLANT DATA REVIEWED: Yes PATIENT PRESENTS WITH AN IMPLANTABLE OR ATTACHED DISPLAY TRIMMER: No ALLERGIES: Reviewed and unchanged CONTRAST ALLERGY: NO. EXAM: MRI - CONTRAST TYPE: GROUP II PERIPHERAL IV DATA: Ambulatory: A peripheral IV was started in the Right forearm with a Angio cath: 24 gauge. RADIOLOGY DEPARTMENT: MR; Exam(s) Completed: Upper MSK: Brachial Plexus, left. Aromatherapy Administered: No SIGNATURE: RT Kate(R) PATIENT NAME: Carrie Herbert DATE: October 22, 2024 TIME: 9:10 AM documented in this encounter [facility] 10-22-2024 Note [facility] 10-21-2024 Telephone encounter Note Patient notified and verbalized understanding. Brielle Mcbride LPN [facility] 10-21-2024 Miscellaneous Notes Patient notified and verbalized understanding. Brielle Mcbride LPN The next PET scan I would obtain in about 3 months but sooner if there is evidence of progression of the cancer on exam. Caris testing did not reveal any "actionable" mutations. Therefore we will continue paclitaxel and Keytruda. The numbness and weakness in left arm may be related to the cancer and that is why we are doing the upcoming MRI to determine if any the nerves are being "pushed on" by the cancer. Hellen Zhu DO Pt.has several questions 1) wonders when she will get her next PET scan 2) had Caris testing and requesting results 3) Is numbness and weakness in left arm from her cancer related to her cancer ( Started in May) Kathie Adame LPN documented in this encounter [facility] 10-21-2024 Telephone encounter Note The next PET scan I would obtain in about 3 months but sooner if there is evidence of progression of the cancer on exam. Caris testing did not reveal any "actionable" mutations. Therefore we will continue paclitaxel and Keytruda. The numbness and weakness in left arm may be related to the cancer and that is why we are doing the upcoming MRI to determine if any the nerves are being "pushed on" by the cancer. Hellen Zhu DO [facility] 10-21-2024 Telephone encounter Note Pt.has several questions 1) wonders when she will get her next PET scan 2) had Caris testing and requesting results 3) Is numbness and weakness in left arm from her cancer related to her cancer ( Started in May) Kathie Adame LPN [facility] 10-21-2024 Note [facility] 10-21-2024 History of Present illness Narrative Patient presents with: Imm/Inj Pt is identified by name and birthdate: Yes. Allergies and medications reviewed. Latex allergy? No. Does this patient have: Unplanned weight loss or gain of greater than 10 pounds, or a change of appetite over the last year? No Does the patient have any concerns about safety in the home/falls? Not at risk for falls Has the patient fallen in the past year? No Does the patient have difficulty performing or completing routine daily living activities? No Does this patient have concerns about personal safety? No Is patient having pain? Pain: No=0 (pain 0 on a scale of 0-10). Health Maintenance: Reviewed and updated. Does patient have MyChart access or Caregiver proxy: yes Pt/Caregiver willingness and readiness to learn assessed: Yes. Barriers: none Nivestym injection administered, right arm, tolerated well, no immediate adverse reactions noted. Kathie Adame LPN documented in this encounter [facility] 10-20-2024 Note HNO ID: [id number] Author: ANKIT CANO RN Service: ? Author Type: Registered Nurse Type: Progress Notes Filed: 10/20/2024 12:35 Note Text: Prelim ANC 0.57, ok to treat per Dr. Zhu. Pt to receive neupogen daily. [facility] 10-20-2024 History of Present illness Narrative Prelim ANC 0.57, ok to treat per Dr. Zhu. Pt to receive neupogen daily. documented in this encounter [facility] 10-20-2024 Note [facility] 10-20-2024 History of Present illness Narrative Oncologic problem(s): 1) cTx cN2a Mx ER/VA negative, HER2 negative grade 3 clinical stage IIIC invasive mammary carcinoma of the left breast. HPI: The patient is a 63 yo female with PMH as outlined below. [...] tissue involved by metastatic mammary carcinoma (provisional [place] grade 3). The carcinoma cells express cytokeratin AE1/AE3, GATA3, TRPS 1, and SOX10, and are negative for PAX8, TTF-1, and CDX2, supporting mammary origin. Breast biomarker studies have been requested and results will be reported separately in a linked report. 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 Diagnosed with lymphocytic colitis about 3 years ago. Abdominal pain/diarrhea. Treated with probiotic and magnesium supplement. Had MRI brain and PET scan at [facility] on 04/09. MRI reported with LEFT and RIGHT transposed--I dictated correct side below. MRI revealed a 1.4 x 1.0 x 0.8 cm enhancing mass in the upper outer quadrant of the LEFT breast located 2.3 cm from the nipple along the 1:00 axis. The mass is 1.9 cm from the underlying pectoralis and 1.1 cm from the skin surface. No additional abnormal enhancement was observed. There were multiple pathologically enlarged right axillary lymph nodes, at least 3 of which were included within the [id number]-[id number] measuring up to 2.8 cm. No internal mammary lymphadenopathy. Postlumpectomy changes were noted in the upper inner quadrant of the RIGHT breast. There was a 4 to 5 mm focus of progressive enhancement along the superior medial aspect of the lumpectomy site which was nonspecific. No axillary adenopathy was noted. No internal mammary adenopathy was noted. A second look ultrasound of the focus of progressive enhancement in the left breast was recommended. Ultrasound-guided biopsy of right and left breast lesions on 04/24/2023. Pathology: Left breast at 1 o'clock, 4 cm from the nipple, core biopsy: - INVASIVE DUCTAL CARCINOMA, POORLY DIFFERENTIATED. - Angiolymphatic invasion present. - See comment. Estrogen receptors: NEGATIVE (0) Progesterone receptors: NEGATIVE (0) HER2/patricia: NEGATIVE (0) Right breast at 1 o'clock, 4 cm from the nipple, core biopsy: - Inflamed fibroadipose tissue with hemorrhage, stromal fibroelastosis and fat necrosis. - No malignancy identified. - See comment. Previous therapy: 1) Paclitaxel and carboplatin along with pembrolizumab. 2) AC with pembro x1 cycle. Neutropenic on day 8, cycle #2. Treatment deferred. On return 05/30, still neutropenic. Treatment deferred. Received Neulasta on 06/02. Cycles 2-4 AC held due to risk of CM and response on MRI following carbo/paclitaxel/pembro. Since last seen underwent lumpectomy with sentinel lymph node biopsy on 10/02/2023. Pathologic CR. Additional margins including deep, inferior, superior, medial, anterior and lateral all negative for carcinoma. 5 sentinel lymph nodes retrieved. All negative for disease. Biopsy dermal lesions 07/17/2024 c/w TNBC PET negative for distant matastases. Current therapy: 1) Paclitaxel and pembrolizumab. Presents for ongoing oncologic management. Interim history: Diarrhea this past weekend. Resolved after Imodium. Subjectively lesions improved. Pain left arm improved. Had outside EMG. Week biceps strength left arm. Numbness left elbow distally. No other sensory neuropathy symptoms. 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) 07/25/2024 Chemotherapy induced neutropenia 10/07/2024 Condyloma acuminatum 03/25/1983 no history of recurrance since treatment COVID-19 09/2021 Lymphocytic colitis Malignant neoplasm of left breast in female, estrogen receptor negative (HCC) 04/12/2023 Malignant neoplasm of upper-outer quadrant of female breast (HCC) 05/24/1991 breast cancer treated with chemo and radiation Mass of axilla, left 03/21/2023 Mental disorder Rectal bleeding Unspecified constipation 03/25/2004 [...] torn retina repair REMV CATARACT EXTRACAP,INSERT LENS US BREAST NEEDLE CORE BIOPSY LT Left 02/2023 LN bx ALLERGIES Allergen Reactions Bactrim [Sulfametho* GI Upset Current Outpatient Medications Medication Sig loperamide HCl (IMODIUM A-D) 2 mg tab Take 2 mg by mouth as needed. gabapentin (NEURONTIN) 300 mg capsule Take 300 mg by mouth once daily as needed. ondansetron (ZOFRAN) 8 mg tablet Take 1 tablet by mouth every 8 hours as needed (For chemotherapy induced nausea and vomiting.). acetaminophen (TYLENOL) 325 mg tablet Take 650 mg by mouth every 6 hours as needed. Lactobacillus acidophilus (PROBIOTIC) 10 billion cell cap Take 1 capsule by mouth once daily. cimetidine (TAGAMET ORAL) Take by mouth as needed. cholecalciferol, vitamin D3, (VITAMIN D3 ORAL) Take 1,000 Units by mouth once daily. CALCIUM ORAL Take 800 mg by mouth once daily. amino acids/multivitamin (MULTIVITAMIN-AMINO ACIDS ORAL) Take 1 tablet by mouth once daily. No amino acids PAXIL 30 MG TAB Take 30 mg by mouth once daily. predniSONE (DELTASONE) 20 mg tablet Take 2 tablets by mouth once daily. (Patient not taking: Reported on 10/20/2024) No current facility-administered medications for this visit. Facility-Administered Medications Ordered in Other Visits Medication Dose Route Frequency NaCl 0.9% iv infusion 500-999 mL/hr INTRAVENOUS PRN diphenhydrAMINE 50 mg injection (BENADRYL) 50 mg INTRAVENOUS PRN hydrocortisone sodium succinate (PF) 100 mg injection (Solu-CORTEF) 100 mg INTRAVENOUS PRN EPINEPHrine HCl (PF) 1 mg/mL (1 mL) 0.3 mg injection 0.3 mg INTRAMUSCULAR PRN Social History Tobacco Use Smoking status: Former Current packs/day: 0.00 Types: Cigarettes Start date: 08/23/1981 Quit date: 08/24/1983 Years since quittin.1 Smokeless tobacco: Never Tobacco comments: in her early 20's, none now Vaping Use Vaping status: Never Used Substance Use Topics Alcohol use: Not Currently Drug use: Never Family History Problem Relation Age of Onset other (constipation) Mother other (atrial fib) Father other (stage 4 kidney failure) Father No Known Problems Brother Hypertension Maternal Grandmother Aneurysm Maternal Grandmother brain aneurysm age 64 No Known Problems Maternal Grandfather Stroke Paternal Grandmother two light strokes 74 year of age Diabetes Paternal Grandfather Diabetes Other GRANDFATHER No family h/o breast cancer or other cancer. Has a brother. OBSTETRIC RELATED HISTORY: P0 History Breast Feeding: No. Age at of First Child: N/A. Age at Onset of Menses: 9 years of age. Age at Menopause: Early 40s (chemotherapy) years of age. Ovaries: Both intact. Uterus: Intact Exogenous Hormone Use/HRT: No. Oral Contraceptives: Age [age]. Tubal ligation age 31. ROS: Constitutional: No fever. No drenching night sweats. Normal appetite. No unexplained weight loss. No significant fatigue. Neuro: No recent AMARO, vertigo, dizziness or imbalance. HEENT: No recent change in voice, vision or hearing. Resp: No cough, wheeze of hemoptysis. No shortness of breath at rest. No ORELLANA. CVS: No exertional chest pain, PND or orthopnea. No extremity swelling/edema. No symptoms of claudication. No painful or tender varicose veins. GI: No dysphagia or odynophagia. No reflux, n/v, change in bowel habits. No abdominal pain, bloating or distension. No black or bloody stools. : No dysuria or gross hematuria. No symptoms of bladder outlet obstruction. Endo: No hot flashes. No polyuria or polydipsia. No heat or cold intolerance. Musculoskeletal: See above. Derm: See above. Heme: No unusual bleeding and unexplained bruising. Psych: Normal mood. Participation of a fellow, resident, medical student, or advanced practice provider student in performing the sensitive examination was discussed with the patient or authorized traveling representative. The patient or authorized traveling representative has agreed to proceed with the sensitive examination. Brielle Mcbride LPN chaperoned. PHYSICAL EXAM: Vitals: Blood pressure 99/61, pulse 68, temperature 36.2 C (97.1 F), temperature source Temporal, weight 56.2 kg (124 lb), last menstrual period 12/30/2007, SpO2 100%. Well-appearing and in no acute distress. EYES: Sclerae are anicteric bilaterally. BREAST: Left breast with multiple dermal nodules. Photos taken. In the right breast, upper inner quadrant there is an approximate 2-1/2 x 2-1/2 cm mobile left firm mass that is unchanged. ABDOMEN: The abdomen is nondistended. Extremities: No swelling or edema. Genetic testing: [facility] 05/10/2023 negative for germline mutation. NGS/biomarkers/driver license agent mutation analyses: PD-L1 CPS 30 from dermal metastasis specimen 07/17/2024. HER2 ultra-low same specimen. 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 -March 2023 diagnosed with a cTx cN2a Mx ER/VA negative, HER2 negative grade 3 clinical stage IIIC invasive mammary carcinoma of the left breast. -ypT0 pN0 M0 following neoadjuvant therapy with pembrolizumab, paclitaxel and carboplatin. She did not go on to receive AC with pembrolizumab in the neoadjuvant setting due to previous history of anthracycline use and excellent radiographic response of the tumor. - Biopsy-proven dermal metastases. Recent PET scan did not reveal metastatic disease otherwise. - Continues from well to paclitaxel and pembrolizumab. She has minimal side effects from pembrolizumab, i.e. self-limited diarrhea. Tolerating paclitaxel well. However very neutropenic today but she will be receiving Neupogen on an ongoing daily basis. Missed last week due to vacation. Current benefit of chemotherapy outweighs risk of neutropenic fever and other complications of neutropenia. Plan: - Continue paclitaxel and pembrolizumab today. - Scheduled for MRI left brachial plexus. - Scheduled for ultrasound right breast. - Treatment decisions regarding radiation or surgery to right breast pending continued response of disease on the left side. 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 - Recent biopsy at [place] demonstrated angiosarcoma. - We discussed that may not be time to take a break from treatment for surgery. Plan: -Pathology has been reviewed at [facility]. - Ultrasound tomorrow. - NGS testing on biopsy specimen from [place]. - See above. Portions of this documentation were copied and pasted from my previous office visit note dated 09/11/2024 in order to provide a cohesive continuity of the history. The note has been reviewed and edited and updated as necessary. Hellen Zhu DO documented in this encounter [facility] 10-13-2024 Procedure note [facility] 10-12-2024 Note HNO ID: [id number] Author: SCARLET BESS LPN Service: ? Author Type: LICENSED NURSE Type: Progress Notes Filed: 10/12/2024 15:54 Note Text: Patient here for injection of Filgrastim. Given SQ in right arm. Patient tolerated well. Scarlet Bess LPN [facility] 10-12-2024 History of Present illness Narrative Patient here for injection of Filgrastim. Given SQ in right arm. Patient tolerated well. Scarlet Bess LPN documented in this encounter [facility] 10-12-2024 Telephone encounter Note Done- note added to appt for today for pss to inform pt of 10/22 arrival time [facility] Work Phone: 10-12-2024 Miscellaneous Notes Done- note added to appt for today for pss to inform pt of 10/22 arrival time Patient is scheduled thru 11/04 for daily neupogen excluding the following dates: 10/22- pt has appointments in radio during open times for injection 11/05 and 11/06 are full. Discussed possibility of doing injections at home. Went through some instruction and she was agreeable to do at home. However once we got to the actual injection part of the instruction and she saw the needle, pt said no, she would not be able to inject herself. Pt states she will continue to come daily as directed. Scarlet Bess LPN Will discuss with patient when she is here for her injection today. Scarlet Bess LPN Since we're not sure or how often she may need Neupogen, see if she would be willing to self inject at home. If so, we will see if can get prescription for her via the specialty pharmacy. Hellen Zhu DO documented in this encounter [facility] 10-12-2024 Telephone encounter Note Patient is scheduled thru 11/04 for daily neupogen excluding the following dates: 10/22- pt has appointments in radio during open times for injection 11/05 and 11/06 are full. [facility] 10-09-2024 Note HNO ID: [id number] Author: SCARLET BESS LPN Service: ? Author Type: LICENSED NURSE Type: Progress Notes Filed: 10/09/2024 16:46 Note Text: Patient here for injection of Zarxio. Given sq in rlq. Patient tolerated well. Scarlet Bess LPN [facility] 10-09-2024 History of Present illness Narrative Patient here for injection of Zarxio. Given sq in rlq. Patient tolerated well. Scarlet Bess LPN documented in this encounter [facility] 10-09-2024 Telephone encounter Note Discussed possibility of doing injections at home. Went through some instruction and she was agreeable to do at home. However once we got to the actual injection part of the instruction and she saw the needle, pt said no, she would not be able to inject herself. Pt states she will continue to come daily as directed. Scarlet Bess LPN [facility] 10-09-2024 Telephone encounter Note Will discuss with patient when she is here for her injection today. Scarlet Bess LPN [facility] 10-09-2024 Telephone encounter Note Since we're not sure or how often she may need Neupogen, see if she would be willing to self inject at home. If so, we will see if can get prescription for her via the specialty pharmacy. Hellen Zhu DO [facility] 10-08-2024 Note HNO ID: [id number] Author: SCARLET BESS LPN Service: ? Author Type: LICENSED NURSE Type: Progress Notes Filed: 10/08/2024 15:57 Note Text: Patient here for injection of filgrastim. Given SQ in right arm. Patient tolerated well. Scarlet Bess LPN [facility] 10-08-2024 History of Present illness Narrative Patient here for injection of filgrastim. Given SQ in right arm. Patient tolerated well. Scarlet Bess LPN documented in this encounter [facility] 10-06-2024 Telephone encounter Note Carrie Herbert was phoned back and the tumor board discussion summarized. She will schedule US R breast and MRI L brachial plexus She will continue paclitaxel/pembrolizumab with paclitaxel weekly We will need to tailor subsequent treatment based on her response. I will work with Dr. Zhu. Zurdo Mancera MD [facility] 10-06-2024 Miscellaneous Notes Carrie Herbert was phoned back and the tumor board discussion summarized. She will schedule US R breast and MRI L brachial plexus She will continue paclitaxel/pembrolizumab with paclitaxel weekly We will need to tailor subsequent treatment based on her response. I will work with Dr. Zhu. Zurdo Mancera MD documented in this encounter [facility] 10-06-2024 Telephone encounter Note Spoke with patient and scheduled Zabrina Palencia [facility] 10-06-2024 Miscellaneous Notes Spoke with patient and scheduled Zabrina Palencia Orders pended- please file. Brielle Mcbride LPN Patient called in regarding this Patient stopped after treatment to schedule MRI and US. Nothing under active request. Please advise Zabrina Palencia documented in this encounter [facility] 10-06-2024 Telephone encounter Note Spoke with patient and scheduled Zabrina Palencia [facility] 10-06-2024 Miscellaneous Notes Spoke with patient and scheduled Zabrina Palencia PSS- per Dr. Mancera's recommendation, patient will be going to weekly Taxol (instead of 3 on 1 off). She will need Taxol added on to 10/13/2024. Leave Keytruda as scheduled. Patient will stop at desk tomorrow to get this scheduled because she has another appointment that day. Brielle Mcbride LPN documented in this encounter [facility] 10-06-2024 Note [facility] 10-06-2024 History of Present illness Narrative Pt here for taxol ANC not meeting parameters at 0.[address] zhu Pt how would you like to proceed 8 mins 8 mins Mk Noland MD lets treat DA close enough documented in this encounter [facility] 10-06-2024 Note [facility] 10-05-2024 Telephone encounter Note PSS- per Dr. Mancera's recommendation, patient will be going to weekly Taxol (instead of 3 on 1 off). She will need Taxol added on to 10/13/2024. Leave Keytruda as scheduled. Patient will stop at desk tomorrow to get this scheduled because she has another appointment that day. Brielle Mcbride LPN [facility] 10-05-2024 Telephone encounter Note Orders pended- please file. Brielle Mcbride LPN [facility] 10-01-2024 Telephone encounter Note Patient called in regarding this [facility] 09-29-2024 Telephone encounter Note Patient stopped after treatment to schedule MRI and US. Nothing under active request. Please advise Zabrina Palencia [facility] 09-28-2024 Instructions Yoni Mancera MD - 09/28/2024 9:26 AM EDT We discussed your locally recurrent left-sided triple-negative breast cancer and angiosarcoma of the right breast: - Continue your current treatment with Taxol (paclitaxel) three weeks on, one week off, and Keytruda (pembrolizumab) every six weeks. - Consider switching to weekly Taxol treatments without a break to maximize response. Be aware that this may increase the risk of numbness and tingling in your fingers and toes (neuropathy). Cooling gloves and foot coverings may help reduce this side effect. - If neuropathy becomes painful, gabapentin may be considered to help manage symptoms, though it will not prevent them. - Surgery on the left breast is not recommended at this time. We will focus on improving the response to treatment before reconsidering local treatment options, such as surgery or radiation. - Surgery on the right breast may be considered in the future, depending on your response to treatment and imaging results. We discussed imaging and further evaluation: - An MRI of the left brachial plexus is recommended to evaluate the cause of numbness, tingling, and weakness in your left arm. - A repeat ultrasound of the right breast is recommended to assess the angiosarcoma and monitor your response to treatment. This can be done at [facility] in [place]. Please ensure the imaging center has access to your prior ultrasound from [facility] for comparison. We discussed next steps: - Your case will be presented at the Tumor Board to discuss treatment options and recommendations. - Consider scheduling a consultation with a radiation oncologist to explore potential future options, including hyperthermia or radiation therapy, particularly for the left breast. We discussed your prognosis and long-term management: - Taxol may eventually stop working as cancer cells can develop resistance. If this occurs, we will explore other treatment options. - Local treatment (surgery or radiation) may be reconsidered once the cancer is better controlled. - While there is a risk of cancer spreading, we will continue to monitor closely and adjust your treatment plan as needed. Please continue to monitor your symptoms and let us know if you experience any new or worsening issues. Your next steps include scheduling the MRI and ultrasound, and we will follow up with you after reviewing the imaging and Tumor Board recommendations. If you have any questions or concerns, please reach out through [employer] or contact our office. documented in this encounter [facility] 09-28-2024 History of Present illness Narrative Images from the original note were not included. [facility] CANCER INTITUTE CONSULT NOTE - Freeman Mancera MD SOLID TUMOR ONCOLOGY PATIENT NAME: Carrie Herbert DATE OF SERVICE: September 27, 2024 My findings and recommendations will be communicated to the referring physician and other members of the patient's health care team by means of the shared electronic medical record and fax. Recording using [employer] software for draft documentation of the visit was discussed with the patient/authorized traveling representative; all questions welcomed and answered. Patient/authorized traveling representative agreed to proceed CHIEF COMPLAINT: Carrie Herbert is a 64 year old woman seen in consultation for Dr. Debbie Merino for an opinion regarding management of locally recurrent left-sided triple-negative breast cancer and angiosarcoma of the right breast. HISTORY OF PRESENT ILLNESS: History of Diagnosis: Patient was diagnosed with right-sided breast cancer at age 31, initially treated with a right partial mastectomy and axillary lymph node dissection. The tumor was estrogen receptor negative, and she received four cycles of doxorubicin and cyclophosphamide, followed by radiation therapy. Approximately 10 years later, she underwent bilateral breast reconstruction with implants. In June 2023, she noted a lump in the left axilla. An ultrasound on 03/01/2023 revealed multiple hypoechoic heterogeneous masses suggestive of lymph nodes. A biopsy confirmed metastatic carcinoma, which was estrogen receptor negative, progesterone receptor negative, and HER2 negative (1+ by IHC). On 04/24/2023, an ultrasound-guided biopsy of the left breast showed invasive ductal carcinoma with angiolymphatic invasion, which was estrogen receptor negative, progesterone receptor negative, and HER2 negative (0 by IHC). The right breast biopsy showed only inflamed fibroadipose tissue. She received chemotherapy with paclitaxel, carboplatin, pembrolizumab, doxorubicin, and cyclophosphamide. Cycles 2-4 of doxorubicin and cyclophosphamide were held. On 10/02/2023, she underwent a left partial mastectomy and sentinel node biopsy, which showed no residual malignancy (pathologic complete response) with 0 of 5 sentinel nodes involved. On 07/17/2024, a biopsy of skin lesions over the left breast showed invasive carcinoma involving the dermis, which was PD-L1 positive with a CPS of 30, and estrogen receptor negative, progesterone receptor negative, and HER2 negative (0 by IHC). During a treatment break for right breast mass evaluation, more dermal lesions appeared. A biopsy of the right breast showed angiosarcoma. Her original left breast cancer was stage IIIC, T1c, N2a, M0, grade 3. Chemotherapy for the left breast recurrence started in July 2024. The angiosarcoma was confirmed by a right breast biopsy on 08/26/2024, which was weakly positive for c-Myc and had a Ki-67 of 70%. An FDG PET scan on 08/04/2024 showed a new breast mass with increased metabolic activity over the medial right breast with an SUV max of 2.6, marked skin thickening, and increased uptake throughout much of the left breast. No significant axillary, lung parenchymal, mediastinal, pleural, abdominal, pelvic, or lower extremity abnormalities were noted. Recent History: Patient restarted treatment with paclitaxel and pembrolizumab on 07/23/2024 and reports good response, with disappearing dermal lesions. She is on a regimen of paclitaxel three weeks on, one week off, and pembrolizumab. She reports numbness, tingling, and poor marketing teacher strength in the left arm since late May to early June, but no numbness or tingling in other extremities. She denies using hand and foot cooling during chemotherapy. She feels great overall, with no significant side effects from chemotherapy, and reports increased appetite. She denies weight loss, head, eye, ear, nose, and throat issues, swallowi, ng difficulties, headaches, cough, shortness of breath, heart problems, abdominal pain, nausea, vomiting, diarrhea, urinary issues, bone aches, or seizures. She has a history of lymphocytic colitis, which resolved after six months and was not exacerbated by pembrolizumab. She had cataract removal surgery and is allergic to Bactrim. Genetic testing was negative for pathogenic mutations. She has no family history of cancer. 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) 07/25/2024 Condyloma acuminatum 03/25/1983 no history of recurrance since treatment COVID-19 09/2021 Lymphocytic colitis Malignant neoplasm of left breast in female, estrogen receptor negative (HCC) 04/12/2023 Malignant neoplasm of upper-outer quadrant of female breast (HCC) 05/24/1991 breast cancer treated with chemo and radiation Mass of axilla, left 03/21/2023 Mental disorder Rectal bleeding Unspecified constipation 03/25/2004 Constipation PAST SURGICAL HISTORY: PAST SURGICAL HISTORY Procedure Laterality Date CAUTERY [...] torn retina repair REMV CATARACT EXTRACAP,INSERT LENS US BREAST NEEDLE CORE BIOPSY LT Left 02/2023 LN bx ALLERGIES: ALLERGIES Allergen Reactions Bactrim [Sulfametho* GI Upset CURRENT MEDICATIONS: predniSONE (DELTASONE) 20 mg tablet^Take 2 tablets by mouth once daily.^Disp: ^Rfl: gabapentin (NEURONTIN) 300 mg capsule^Take 300 mg by mouth once daily as needed.^Disp: ^Rfl: ondansetron (ZOFRAN) 8 mg tablet^Take 1 tablet by mouth every 8 hours as needed (For chemotherapy induced nausea and vomiting.).^Disp: 30 tablet^Rfl: 2 acetaminophen (TYLENOL) 325 mg tablet^Take 650 mg by mouth every 6 hours as needed.^Disp: ^Rfl: Lactobacillus acidophilus (PROBIOTIC) 10 billion cell cap^Take 1 capsule by mouth once daily.^Disp: ^Rfl: cimetidine (TAGAMET ORAL)^Take by mouth as needed.^Disp: ^Rfl: cholecalciferol, vitamin D3, (VITAMIN D3 ORAL)^Take 1,000 Units by mouth once daily.^Disp: ^Rfl: CALCIUM ORAL^Take 800 mg by mouth once daily.^Disp: ^Rfl: amino acids/multivitamin (MULTIVITAMIN-AMINO ACIDS ORAL)^Take 1 tablet by mouth once daily. No amino acids^Disp: ^Rfl: PAXIL 30 MG TAB^Take 30 mg by mouth once daily. 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 She smoked cigarettes for two years in her 20s but does not currently smoke, drink alcohol, or use recreational drugs. She had one terminated at age 17. She began menstruating at age 9 and entered menopause in her early to mid-40s due to chemotherapy. Social History Tobacco Use Smoking status: Former Current packs/day: 0.00 Types: Cigarettes Start date: 08/23/1981 Quit date: 08/24/1983 Years since quittin.1 Smokeless tobacco: Never Tobacco comments: in her early 20's, none now Vaping Use Vaping status: Never Used Substance Use Topics Alcohol use: Not Currently Drug use: Never REVIEW OF SYSTEMS: PS=0 Constitutional: (+) increased appetite, (-) weight change Head: (-) headache Ears/Nose/Mouth/Throat: (-) dysphagia Breast: (+) right breast lump, (+) left breast skin lesions, (-) breast tenderness Respiratory: (-) cough, (-) dyspnea Gastrointestinal: (-) abdominal pain, (-) nausea, (-) vomiting, (-) diarrhea Genitourinary: (-) dysuria, (-) hematuria Musculoskeletal: (-) bone pain Neurological: (+) left arm numbness, (+) left arm tingling, (+) left hand weakness, (-) distal extremity numbness/tingling [id number]. Menarche 9. LMP 40's PHYSICAL EXAMINATION: BP 115/57 Pulse 69 Temp (Src) 97.8 (Temporal) Resp 18 Ht 5' 4.724" (1.64m) Wt 120 lb 9.5 oz (54.7kg) SpO2 100% LMP 12/30/2007 BMI 20.24 kg/(m^2). General: Alert & oriented, no acute distress Skin: Multiple dermal lesions on left breast, erythematous, non-tender HEENT: Pupils equal, round. Oral cavity, oropharynx clear Neck: Supple, no mass Breast: Mass in right upper inner quadrant, approximately 3 cm, non-tender. Left mastectomy with extensive skin involvement (see photos) Respiratory: Clear to auscultation, bilaterally Cardiovascular: Regular rate and rhythm, no murmurs, rubs, or gallops Abdomen: Soft, non-tender, non-distended, no masses palpable, no hepatosplenomegaly, normal bowel sounds Genitourinary: Deferred MSK: Back is non-tender Extremities: No clubbing, cyanosis, or edema Neuro: Decreased sensation in left arm, very mildly decreased marketing teacher strength in left hand DIAGNOSTIC STUDIES: (03/01/2023) Ultrasound of the Left Breast: Multiple hypoechoic heterogeneous masses suggestive of lymph nodes. Biopsy recommended and showed metastatic carcinoma, estrogen receptor negative, progesterone receptor negative, HER2 negative (1+ by IHC) (04/24/2023) Ultrasound-Guided Biopsy of Right and Left Breasts: - Left Breast: Invasive ductal carcinoma with angiolymphatic invasion, estrogen receptor negative, progesterone receptor negative, HER2 negative (0 by IHC) - Right Breast: Inflamed fibroadipose tissue only (07/17/2024) Biopsy of Skin Lesions over Left Breast: Invasive carcinoma involving the dermis, estrogen receptor negative, progesterone receptor negative, HER2 negative (0 by IHC), PD-L1 positive with CPS of 30 (08/04/2024) FDG PET Scan: New medial right breast mass with SUV max of 2.6. Marked skin thickening and increased uptake throughout most of the left breast. No significant abnormalities in the axilla, lung parenchyma, mediastinum, or pleura. Abdomen, pelvis, and lower extremities negative. (08/26/2024) Right Breast Biopsy: Angiosarcoma identified, c-MYC weakly positive, Ki-67 at 70% (10/02/2023) Left Partial Mastectomy and [place] Node Biopsy: No residual malignancy (pathologic complete response), 0 of 5 sentinel nodes involved (09/23/2024) HSCT: No metastatic disease [employer] Testing: No pathogenic mutation detected ASSESSMENT and PLAN: 1. Personal history of irradiation (Z92.3) Patient received radiation therapy 32 years ago for right breast cancer. 2. Malignant neoplasm of overlapping sites of left breast in female, estrogen receptor negative (HCC) (C50.812) Recurrent breast cancer, left (HCC) (C50.912) Patient has a history of left breast cancer, initially treated with lumpectomy, chemotherapy, and radiation. Recent recurrence with multiple dermal lesions confirmed as triple-negative breast cancer. Currently undergoing treatment with paclitaxel and pembrolizumab, showing good response with reduction in dermal lesions. - Continue current treatment regimen of paclitaxel and pembrolizumab. - Consider weekly administration of paclitaxel to enhance response. - Monitor for neuropathy; advised use of cooling gloves and footies to mitigate symptoms. - Discussed potential for local treatment (radiation or surgery) once maximum response is achieved. - Case to be discussed in tumor board for further management recommendations. 3. Left arm numbness (R20.0) Experiencing numbness and tingling in the left arm with poor marketing teacher strength. Differential includes neuropathy secondary to chemotherapy or compression of the brachial plexus. - Ordered MRI of the left brachial plexus to evaluate for potential compression or lymphadenopathy. - Scheduled for nerve conduction study on the in [place]. 4. 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 Mass is approximately 3 cm in the right upper inner quadrant. - Continue current treatment with paclitaxel and pembrolizumab. - Ordered ultrasound of the right breast to re-evaluate the angiosarcoma. - Discussed potential for surgical intervention if the mass responds well to current treatment. - Referral to radiation oncology for consideration of hyperthermia treatment. 5. Malignant neoplasm of right breast in female, estrogen receptor negative, unspecified site of breast (HCC) (C50.911) Initial right breast cancer was estrogen receptor negative, treated with lumpectomy, chemotherapy, and radiation 32 years ago. No current evidence of recurrence in the right breast other than the angiosarcoma. I spent a total of 65 minutes on the date of the service which included preparing to see the patient, [id number] patient care, completing clinical documentation, obtaining and/or reviewing separately obtained history, performing a medically appropriate examination, counseling and educating the patient/family/caregiver, ordering medications, tests, or procedures, communicating with other HCPs (not separately reported), independently interpreting results (not separately reported), communicating results to the patient/family/caregiver, and care coordination (not separately reported). Freeman Mancera MD cc: Ken Zarco MD Debbie Merino MD Paul Masci, DO Additional intake questions: Has the patient had fever, nausea, vomiting, diarrhea, constipation, fatigue for > 1 week? No Does the patient have a decreased appetite? No Does patient have any new or increased numbness or tingling of extremities? Yes, numbness and tingling to left arm and left hand. Is patient interested in fertility information? NA Does patient need any prescription refills? No Does patient have an advanced directive in place? Yes, no copy found in [employer]. documented in this encounter [facility] 09-28-2024 Note [facility] 09-28-2024 Note [facility] 09-24-2024 Telephone encounter Note Continue with treatment. Jael Gunter RN [facility] 09-24-2024 Miscellaneous Notes Continue with treatment. Jael Gunter RN Please advise if patient is to continue with treatment. Appointment notes show 4 cycles. documented in this encounter [facility] 09-24-2024 Telephone encounter Note Please advise if patient is to continue with treatment. Appointment notes show 4 cycles. [facility] Work Phone: 09-24-2024 History of Present illness Narrative NEW BREAST CANCER - INITIAL SURGICAL VISIT SERVICE DATE: 09/22/2024 REFERRING PROVIDER: Dr. Debbie Merino Consult requested for an opinion regarding the evaluation and treatment of a new breast issue. My final impression and recommendations will be communicated back to the requesting physician by way of the shared medical record or letter via [place] mail. SUBJECTIVE: REASON FOR TODAY'S VISIT: Breast Cancer Evaluation HISTORY of PRESENT ILLNESS: Carrie Herbert is a 64 year old White female who presents for an evaluation of a diagnosis of a new RIGHT breast angiosarcoma. RIGHT breast cancer @ age 31 treated with lumpectomy and radiation Adjuvant doxorubicin and cyclophosphamide 10 year later receive breast implant augmentation RIGHT breast mass upper inner quadrant (bx 2 times in the past as fat necrosis started growing), repeat biopsy showed angiosarcoma. LEFT breast TNBC in 2023, s/p NAC/I (received chemotherapy with paclitaxel, carboplatin, pembrolizumab, doxorubicin, and cyclophosphamide), lumpectomy, pCR, XRT, 05/2024 Now with new and rapidly progressing with skin nodues and changes, bx showed breast/skin local recurrence, TNBC Staging scans no evidence fo metastatic disease Started on NAC, paused with the RIGHT breast new diagnosis for consideration of primary resection of the angiosarcoma, but LEFT breast prgressing so rapidly that surgery plans were abonded, patient restarted in chemo and sent to [facility] for a 2nd opinion. 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 (Hcc) - 07/25/2024 H/O Breast Augmentation - 08/25/2023 At Risk for Lymphedema - 08/25/2023 Breast Cancer Metastasized to Axillary Lymph Node, Left (Hcc) - 04/14/2023 Triple Negative Breast Cancer (Hcc) - 04/14/2023 History of Left Breast Cancer - 04/14/2023 Abnormal Mri, Breast - 04/14/2023 Angiosarcoma of Breast (Hcc) - 04/12/2023 Metastatic Cancer to Axillary Lymph Nodes (Hcc) - 04/12/2023 Rectal Bleeding Unspecified Constipation - 09/19/2006 FAMILY HISTORY: Review of patient's family history indicates: Problem: other (constipation) Relation: Mother Age of Onset: (Not Specified) Problem: other (atrial fib) Relation: Father Age of Onset: (Not Specified) Problem: other (stage 4 kidney failure) Relation: Father Age of Onset: (Not Specified) Problem: No Known Problems Relation: Brother Age of Onset: (Not Specified) Problem: Hypertension Relation: Maternal Grandmother Age of Onset: (Not Specified) Problem: Aneurysm Relation: Maternal Grandmother Age of Onset: (Not Specified) Comment: brain aneurysm age 64 Problem: No Known Problems Relation: Maternal Grandfather Age of Onset: (Not Specified) Problem: Stroke Relation: Paternal Grandmother Age of Onset: (Not Specified) Comment: two light strokes 74 year of age Problem: Diabetes Relation: Paternal Grandfather Age of Onset: (Not Specified) Problem: Diabetes Relation: Other Age of Onset: (Not Specified) Comment: GRANDFATHER OBSTETRIC 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: 12/30/2007, Postmenopausal Age at Menarche: Age at First : 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 History Comments: Menarche: 9; Age at 1st : n/a; Post menopausal mid 39 drug induced from chemo 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 Activity: 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; 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; 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 Contraception: Surgical PAST MEDICAL HISTORY: Past Medical History: 07/25/2024: 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) 10/07/2024: Chemotherapy induced neutropenia 03/25/1983: Condyloma acuminatum Comment: no history of recurrance since treatment 09/2021: COVID-19 No date: Lymphocytic colitis 04/12/2023: Malignant neoplasm of left breast in female, estrogen receptor negative (HCC) 05/24/1991: Malignant neoplasm of upper-outer quadrant of female breast (HCC) Comment: breast cancer treated with chemo and radiation 03/21/2023: Mass of axilla, left No date: Mental disorder No date: Rectal bleeding 03/25/2004: Unspecified constipation Comment: Constipation PAST SURGICAL HISTORY: PAST SURGICAL HISTORY Procedure Laterality Date CAUTERY [...] torn retina repair REMV CATARACT EXTRACAP,INSERT LENS US BREAST NEEDLE CORE BIOPSY LT Left 02/2023 LN bx Allergies Allergen Reactions Bactrim [Sulfametho* GI Upset CURRENT MEDICATIONS: potassium chloride (K-TAB) 10 mEq tablet^Take 1 tablet by mouth once daily.^Disp: 30 tablet^Rfl: 2 loperamide HCl (IMODIUM A-D) 2 mg tab^Take 2 mg by mouth as needed.^Disp: ^Rfl: predniSONE (DELTASONE) 20 mg tablet^Take 2 tablets by mouth once daily.^Disp: ^Rfl: (Patient not taking: Reported on 10/26/2024) gabapentin (NEURONTIN) 300 mg capsule^Take 300 mg by mouth once daily as needed.^Disp: ^Rfl: ondansetron (ZOFRAN) 8 mg tablet^Take 1 tablet by mouth every 8 hours as needed (For chemotherapy induced nausea and vomiting.).^Disp: 30 tablet^Rfl: 2 acetaminophen (TYLENOL) 325 mg tablet^Take 650 mg by mouth every 6 hours as needed.^Disp: ^Rfl: Lactobacillus acidophilus (PROBIOTIC) 10 billion cell cap^Take 1 capsule by mouth once daily.^Disp: ^Rfl: cimetidine (TAGAMET ORAL)^Take by mouth as needed.^Disp: ^Rfl: cholecalciferol, vitamin D3, (VITAMIN D3 ORAL)^Take 1,000 Units by mouth once daily.^Disp: ^Rfl: CALCIUM ORAL^Take 800 mg by mouth once daily.^Disp: ^Rfl: amino acids/multivitamin (MULTIVITAMIN-AMINO ACIDS ORAL)^Take 1 tablet by mouth once daily. No amino acids^Disp: ^Rfl: PAXIL 30 MG TAB^Take 30 mg by mouth once daily. ^Disp: ^Rfl: 0 REVIEW OF SYSTEMS: GENERAL: No weight loss, malaise or fevers HEENT: Negative for frequent or significant headaches, No changes in hearing or vision RESPIRATORY: Negative for cough, wheezing, or shortness of breath CARDIOVASCULAR: Negative for chest pain, leg swelling, or heart palpitations MUSCULOSKELETAL: Negative for joint pain or swelling, back pain or muscle pain, no upper extremity swelling or lymphedema ABD: no abdominal pain INTEGUMENTARY: Denies Scleroderma or Lupus. Denies chronic skin conditions. BREASTS:Per HPI All other reviewed and negative other than HPI. OBJECTIVE: PHYSICAL EXAM: 20.48 kg/m2 GENERAL:well-nourished, healthy, alert and oriented x 3, calm SKIN:warm, dry, skin color, texture, turgor normal HEAD/EYES:normocephalic, atraumatic, and anicteric NECK: supple, symmetrical, no thyromegaly RESPIRATORY: Respirations regular & non-labored ABDOMEN: soft, nondistended. No hepatomegaly., No masses MUSCULOSKELETAL: No observed limitations in range of motion of upper extremities. Patient ambulates independently BREASTS: The Patient was examined in the upright and supine positions. Breasts are symmetric. Patient's cup size is C, augmented The patient was examined in the upright and supine position. RIGHT breast soft, there is 3 cm dominant palpable mass @ the surgical scar in the upper inner quadrant (known angiosarcoma) this is close to overlying skin - but not through, nipple everted, no discharge, no skin changes, peau d orange skin texture RIGHT axilla no palpable axillary lymphadenopathy LEFT breast firm all of the skin is red, with dispersed numerous skin masses (mets) this extents to lateral chest wall and does start to cross midline (see photo in images) LEFT axilla no palpable adenopathy Regional Lymph Nodes: difficult to assess, no lymphedema IMAGING TO DATE: EXAMINATION: DIAGNOSTIC BILATERAL MAMMOGRAM WITH TOMOSYNTHESIS, 08/19/2024 8:57 am TECHNIQUE: Tomosynthesis was performed as part of the diagnostic bilateral mammogram. 2D standard and 3D tomosynthesis combination imaging performed. Current study was also evaluated with a Computer Aided Detection (CAD) system. COMPARISON: 08/20/2023 mammogram, 05/05/2024 right breast ultrasound. 08/04/2024 PET-CT scan. HISTORY: ORDERING SYSTEM PROVIDED HISTORY: Reason for Exam: follow up breast cancer. Right breast mass and left breast skin thickening on 08/04/2024 PET-CT scan. FINDINGS: BREAST DENSITY: There are scattered areas of fibroglandular density. In the right breast, corresponding to the PET-CT scan, at 2 o'clock there is a 3 x 1.7 x 2.2 cm in transverse by AP by craniocaudal dimensions irregular mass. Postsurgical change is present in the right breast. Postsurgical changes present in the left breast in there is diffuse left breast skin thickening and parenchymal thickening. There are intact bilateral retropectoral saline implants. No significant masses, calcifications, or other findings. IMPRESSION: Right breast mass concerning for malignancy, ultrasound is recommended to further evaluate. Ultrasound will be performed the same day and reported separately. Diffuse left breast skin thickening and edema, this is most likely post therapeutic in nature, malignant disease is not excludable. Correlate clinically. Reese Butts risk calculations do not apply for this patient. BIRADS: BI-RADS: 0: Incomplete: Need Additional Imaging Evaluation EXAMINATION: ULTRASOUND OF THE RIGHT BREAST 08/19/2024 8:58 am TECHNIQUE: Color flow and laughlin scale targeted ultrasound of the right breast were performed. Permanently stored images were reviewed. COMPARISON: 08/11/2024 mammogram and 08/04/2024 PET[facility] scan from [facility]. HISTORY: ORDERING SYSTEM PROVIDED HISTORY: Reason for Exam: Right breast mass. History of bilateral breast carcinoma. FINDINGS: In the right breast 1-2 o'clock there is a 2.1 x 2.8 x 1.1 cm hypoechoic mass with an irregular border, this corresponds to the mammographic abnormality in the PET-CT scan abnormality. No right axillary lymphadenopathy IMPRESSION: Right breast mass, this is suspicious for malignancy and ultrasound-guided biopsy is recommended. 09/23 CT chest negative PATHOLOGY RESULTS: 07/17/24 FINAL DIAGNOSIS Left breast, skin, punch biopsy: - Invasive carcinoma involving dermis. Component ER status Negative (less than 1%) ER % staining <1 Estrogen Receptor (Average Staining Intensity) Not Applicable Estrogen Receptor Status of Internal Control Absent Estrogen Receptor External Control Present and Stained as Expected VA status Negative (less than 1%) VA % staining <1 Progesterone Receptor (Average Staining Intensity) Not Applicable Progesterone Receptor Status of Internal Control Absent Progesterone Receptor External Control Present and Stained as Expected HER2 IHC Status Negative for HER2 Overexpression HER2 IHC Score 0 Comment: HER2 Ultralow assessment for HER2 negative (0) tumors by ASCO/CAP Guidelines 08/19/24 RIGHT breast angiosarcoma (outside pathology altmann) Assessment ASSESSMENT: Carrie Herbert is a 64 year old White female who presents for an evaluation of a diagnosis of a new RIGHT breast angiosarcoma. RIGHT breast cancer @ age 31 treated with lumpectomy and radiation RIGHT breast mass upper inner quadrant (bx 2 times in the past as fat necrosis started growing), repeat biopsy showed 2.1 cm angiosarcoma. LEFT breast TNBC in 2023, s/p NAC, lumpectomy, pCR, XRT, 05/2024 Now with new and rapidly progressing with skin nodues and changes, bx showed breast/skin local recurrence, TNBC, ER-VA-HER2- Staging scans no evidence fo metastatic disease Started on NAC, paused with the RIGHT breast new diagnosis for consideration of primary resection of the angiosarcoma, but LEFT breast prgressing so rapidly that surgery plans were abonded, patient restarted in chemo and sent to [facility] for a 2nd opinion. 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 Given the extent of disease on the LEFT breast, surgery cannot be performed. Although I do age that surgical resection of the RIGHT angiosarcoma while it is small makes the most sense, stopping her systemic therapy for her LEFT TNBC has been shown to lead to rapid progression in the few short weeks. Therefore, I would not recommed surgery for either side at this time. Continue with systemic therapy paclitaxel and pembrolizumab with Dr. Zhu, scheduled to see Dr. Mancera Plans to present at [facility] I would recommend consideration of radiation , to review all options. Note from Dr. Davis (rad onc) Regarding the left breast cutaneous metastases, she just finished radiation treatment to the left chest wall less than a year ago. As they came back not too long after radiation treatment, they're likely to be radiation resistant. And there are higher risks of complications if re--irradiation is given with short break after the initial treatment. Benefits/risks may not be high for the radiation dose level necessary for preop. Lower palliative dose can be considered when needed. For the right breast angiosarcoma, it appears to be less than 5 cm and resectable. I'm not sure concurrent preop RT would add too much while she has synchronous diffuse cutaneous breast cancer metastases not too long after the primary therapy. Marlene Blanco and I discussed this before and we agreed that there is no clear role for radiation treatment upfront. I hope her cutaneous metastases would respond well to chemotherapy. NEXT STEPS Discussed not able to perform surgery at this time (on either side), as the LEFT side will progress during RIGHT side surgical treatment. Continue with systemic therapy Consider RIGHT side radiation of growth continues during systemic therapy Future Appointments Date Time Provider Department Center 11/02/2024 10:45 AM Wstr, Injection [facility] [place] 11/03/2024 1:00 PM LAB [facility] WSTR MOB [facility] [place] 11/03/2024 1:30 PM TREATMENT RM 3 [facility]STR [facility] [place] 11/04/2024 11:15 AM Wstr, Injection [facility] [place] 11/05/2024 9:30 AM Wstr, Lab/Port [facility] [place] 11/06/2024 9:30 AM Wstr, Lab/Port [facility] [place] 11/09/2024 8:45 AM Wstr, Injection [facility] [place] 11/10/2024 12:30 PM LAB [facility] WSTR MOB [facility] [place] 11/10/2024 1:00 PM TREATMENT RM 12 LAYO C WSTR [facility] [place] 11/11/2024 2:00 PM Wstr, Injection [facility] [place] 11/12/2024 10:15 AM Wstr, Injection Layo c [facility] [place] 11/13/2024 2:45 PM Wstr, Injection [facility] c [facility] [place] 11/16/2024 9:45 AM Wstr, Injection Layo c [facility] [place] 11/16/2024 3:30 PM LAB C [facility] MOB [facility] [place] 11/16/2024 3:50 PM Hellen Zhu DO [facility] [place] 11/17/2024 1:30 PM TREATMENT RM 3 [facility]AY[facility] C WSTR [facility] [place] 11/18/2024 10:45 AM Wstr, Injection Lay[facility] c [facility] [place] 11/19/2024 8:45 AM Wstr, Injection Lay[facility] c [facility] [place] 11/20/2024 9:15 AM Wstr, Injection Lay[facility] c [facility] [place] 11/25/2024 1:00 PM LAB C WSTR MOB [facility] [place] 11/25/2024 1:30 PM TREATMENT RM 4 [facility] C WSTR [facility] [place] 12/01/2024 1:00 PM LAB C WSTR MOB [facility] [place] 12/01/2024 1:30 PM TREATMENT RM 8 [facility] [place] 12/09/2024 1:00 PM LAB C WSTR MOB [facility] [place] 12/09/2024 1:30 PM TREATMENT RM 8 [facility] WSTR [facility] [place] 12/15/2024 1:00 PM LAB [facility] WSTR MOB [facility] [place] 12/15/2024 1:30 PM Monserrat Rodriguez APRN.CUFF SETTER [facility] [place] 12/17/2024 1:30 PM TREATMENT RM 3 [facility]AY[facility] C WSTR [facility] [place] 12/23/2024 1:00 PM LAB C WSTR MOB [facility] [place] 12/23/2024 1:30 PM TREATMENT RM 4 [facility]AYO C WSTR [facility] [place] 12/29/2024 1:00 PM LAB C WSTR MOB [facility] [place] 12/29/2024 1:30 PM TREATMENT RM 3 LAYO C WSTR [facility] [place] 01/05/2025 1:00 PM LAB C WSTR MOB [facility] [place] 01/05/2025 1:30 PM TREATMENT RM 8 [facility] WSTR [facility] [place] All questions were answered and the patient had no further concerns at this time. Carrie Herbert was given our contact information if she has any further questions or concerns. Keila Christina DO, [facility] Breast Surgeon [facility] cc: Ken Zarco MD Self MDM documented in this encounter [facility] 09-24-2024 Note [facility] 09-22-2024 History of Present illness Narrative Radiology Service Progress Note DATE OF SERVICE: September 22, 2024 TIME: 7:42 PM PATIENT IDENTITY VERIFICATION COMPLETED USING TWO (2) STANDARD IDENTIFIERS: Name and Date of confirmed by patient verbally. FALL SCREENING: Has the patient had 2 falls in the last year or 1 fall with injury or currently using an Ambulatory Assistive Device (Walker, Cane, Wheelchair, Crutches, etc.)? No PATIENT GENDER DATA: Assigned female at . status: : No status: N/A PATIENT RELEVANT IMPLANT DATA REVIEWED: Not Applicable PATIENT PRESENTS WITH AN IMPLANTABLE OR ATTACHED DISPLAY TRIMMER: No ALLERGIES: Reviewed and unchanged CONTRAST ALLERGY: NO. EXAM: CT -CONTRAST INDUCED NEPHROPATHY RISK FACTORS: Patient age > 60 years CREATININE: Creatinine Date Value Ref Range Status 09/21/2024 0.63 0.58 - 0.96 mg/dL Final 09/08/2024 0.63 0.58 - 0.96 mg/dL Final 08/24/2024 0.67 0.58 - 0.96 mg/dL Final Estimated Glomerular Filtration Rate Date Value Ref Range Status 09/21/2024 99 >=60 mL/min/1.73m Final Comment: Estimated Glomerular Filtration Rate (eGFR) is calculated using the 2020 CKD-EPI creatinine equation. This equation utilizes serum creatinine, sex, and age as parameters. The creatinine assay has traceable calibration to isotope dilution-mass spectrometry. Refer to KDIGO guidelines for clinical interpretation. In patients with unstable renal function, e.g. those with acute kidney injury, the eGFR may not accurately reflect actual GFR. eGFR- Date Value Ref Range Status 12/15/2020 >60 Final P.O.C.T. RESULTS: N/A September 22, 2024 TREATMENT: N/A PERIPHERAL IV DATA: Ambulatory: A peripheral IV was started in the Right antecubital site with a Angio cath: 22 gauge. RADIOLOGY DEPARTMENT: CT; Exam(s) Completed: Chest SIGNATURE: KRISTAL Borden) PATIENT NAME: Carrie Herbert DATE: September 22, 2024 TIME: 7:42 PM documented in this encounter [facility] 09-22-2024 Note HNO ID: [id number] Author: PRECIOUS EDWARDS RT(R) Service: Radiology Author Type: Corporate Administrative Assistant Type: Progress Notes Filed: 09/22/2024 19:43 Note Text: Radiology Service Progress Note DATE OF SERVICE: September 22, 2024 TIME: 7:42 PM PATIENT IDENTITY VERIFICATION COMPLETED USING TWO (2) STANDARD IDENTIFIERS: Name and Date of confirmed by patient verbally. FALL SCREENING: Has the patient had 2 falls in the last year or 1 fall with injury or currently using an Ambulatory Assistive Device (Walker, Cane, Wheelchair, Crutches, etc.)? No PATIENT GENDER DATA: Assigned female at . status: : No status: N/A PATIENT RELEVANT IMPLANT DATA REVIEWED: Not Applicable PATIENT PRESENTS WITH AN IMPLANTABLE OR ATTACHED DISPLAY TRIMMER: No ALLERGIES: Reviewed and unchanged CONTRAST ALLERGY: NO. EXAM: CT -CONTRAST INDUCED NEPHROPATHY RISK FACTORS: Patient age > 60 years CREATININE: Creatinine Date Value Ref Range Status 09/21/2024 0.63 0.58 - 0.96 mg/dL Final 09/08/2024 0.63 0.58 - 0.96 mg/dL Final 08/24/2024 0.67 0.58 - 0.96 mg/dL Final Estimated Glomerular Filtration Rate Date Value Ref Range Status 09/21/2024 99 >=60 mL/min/1.73m? Final Comment: Estimated Glomerular Filtration Rate (eGFR) is calculated using the 2020 CKD-EPI creatinine equation. This equation utilizes serum creatinine, sex, and age as parameters. The creatinine assay has traceable calibration to isotope dilution-mass spectrometry. Refer to KDIGO guidelines for clinical interpretation. In patients with unstable renal function, e.g. those with acute kidney injury, the eGFR may not accurately reflect actual GFR. eGFR- Date Value Ref Range Status 12/15/2020 >60 Final P.O.C.T. RESULTS: N/A September 22, 2024 TREATMENT: N/A PERIPHERAL IV DATA: Ambulatory: A peripheral IV was started in the Right antecubital site with a Angio cath: 22 gauge. RADIOLOGY DEPARTMENT: CT; Exam(s) Completed: Chest SIGNATURE: Precious Edwards RT(R) PATIENT NAME: Carrie Herbert DATE: September 22, 2024 TIME: 7:42 PM [facility] 09-22-2024 Telephone encounter Note Spoke w pt and she is scheduled for today 640pm at [place] for CT. Tamar Alonso [facility] 09-22-2024 Miscellaneous Notes Spoke w pt and she is scheduled for today 640pm at [place] for CT. Tamar Alonso I recommend STAT CT chest to further evaluate this symptom. Hellen Zhu DO Shellie wanted you to be aware that she saw he PCP about her L arm numbness and pain and they did an X ray and ruled out a pinched nerve and she was given 5 days of prednisone to see if it would help and she follows up with her PCP in a week documented in this encounter [facility] 09-22-2024 Telephone encounter Note I recommend STAT CT chest to further evaluate this symptom. Hellen Zhu DO [facility] 09-22-2024 Telephone encounter Note Shellie wanted you to be aware that she saw he PCP about her L arm numbness and pain and they did an X ray and ruled out a pinched nerve and she was given 5 days of prednisone to see if it would help and she follows up with her PCP in a week [facility] 09-22-2024 Telephone encounter Note Looks good. Thank you. 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 Hellen Zhu DO [facility] 09-22-2024 Miscellaneous Notes Looks good. Thank you. 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 Hellen Zhu DO Carrox[place] order pended, please double check info correct before signing. Kathie Adame LPN I would like to see if we can order Caris or other NGS testing from the breast tumor biopsy of her right breast done at [place]. The report is scanned in documents under pathology I believe on 08/26. Hellen Zhu DO documented in this encounter [facility] 09-22-2024 Telephone encounter Note Carroxanna order pended, please double check info correct before signing. Kathie Adame LPN [facility] 09-22-2024 Note HNO ID: [id number] Author: BLANKA DEL RIO, RN Service: ? Author Type: Registered Nurse Type: Progress Notes Filed: 09/22/2024 09:48 Note Text: Assessment unchanged from D Ayaan office visit on 09/21/24 [facility] 09-22-2024 History of Present illness Narrative Assessment unchanged from D Ayaan office visit on 09/21/24 documented in this encounter [facility] 09-21-2024 Telephone encounter Note I would like to see if we can order Caris or other NGS testing from the breast tumor biopsy of her right breast done at [place]. The report is scanned in documents under pathology I believe on 08/26. Hellen Zhu DO [facility] 09-21-2024 Note [facility] 09-21-2024 History of Present illness Narrative Oncologic problem(s): 1) cTx cN2a Mx ER/VA negative, HER2 negative grade 3 clinical stage IIIC invasive mammary carcinoma of the left breast. HPI: The patient is a 63 yo female with PMH as outlined below. [...] tissue involved by metastatic mammary carcinoma (provisional [place] grade 3). The carcinoma cells express cytokeratin AE1/AE3, GATA3, TRPS 1, and SOX10, and are negative for PAX8, TTF-1, and CDX2, supporting mammary origin. Breast biomarker studies have been requested and results will be reported separately in a linked report. 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 Diagnosed with lymphocytic colitis about 3 years ago. Abdominal pain/diarrhea. Treated with probiotic and magnesium supplement. Had MRI brain and PET scan at [facility] on 04/09. MRI reported with LEFT and RIGHT transposed--I dictated correct side below. MRI revealed a 1.4 x 1.0 x 0.8 cm enhancing mass in the upper outer quadrant of the LEFT breast located 2.3 cm from the nipple along the 1:00 axis. The mass is 1.9 cm from the underlying pectoralis and 1.1 cm from the skin surface. No additional abnormal enhancement was observed. There were multiple pathologically enlarged right axillary lymph nodes, at least 3 of which were included within the [id number] measuring up to 2.8 cm. No internal mammary lymphadenopathy. Postlumpectomy changes were noted in the upper inner quadrant of the RIGHT breast. There was a 4 to 5 mm focus of progressive enhancement along the superior medial aspect of the lumpectomy site which was nonspecific. No axillary adenopathy was noted. No internal mammary adenopathy was noted. A second look ultrasound of the focus of progressive enhancement in the left breast was recommended. Ultrasound-guided biopsy of right and left breast lesions on 04/24/2023. Pathology: Left breast at 1 o'clock, 4 cm from the nipple, core biopsy: - INVASIVE DUCTAL CARCINOMA, POORLY DIFFERENTIATED. - Angiolymphatic invasion present. - See comment. Estrogen receptors: NEGATIVE (0) Progesterone receptors: NEGATIVE (0) HER2/patricia: NEGATIVE (0) Right breast at 1 o'clock, 4 cm from the nipple, core biopsy: - Inflamed fibroadipose tissue with hemorrhage, stromal fibroelastosis and fat necrosis. - No malignancy identified. - See comment. Previous therapy: 1) Paclitaxel and carboplatin along with pembrolizumab. 2) AC with pembro x1 cycle. Neutropenic on day 8, cycle #2. Treatment deferred. On return 05/30, still neutropenic. Treatment deferred. Received Neulasta on 06/02. Cycles 2-4 AC held due to risk of CM and response on MRI following carbo/paclitaxel/pembro. Since last seen underwent lumpectomy with sentinel lymph node biopsy on 10/02/2023. Pathologic CR. Additional margins including deep, inferior, superior, medial, anterior and lateral all negative for carcinoma. 5 sentinel lymph nodes retrieved. All negative for disease. Biopsy dermal lesions 07/17/2024 c/w TNBC PET negative for distant matastases. Current therapy: 1) Paclitaxel and pembrolizumab. Presents for ongoing oncologic management. Interim history: Tolerating therapy well. She was off treatment for several weeks to have right breast mass evaluated. During that time more dermal lesions appeared. Biopsy of right breast lesion demonstrated angiosarcoma. Due to the rapid progression of dermal metastases, surgery was not advised and she was told to resume systemic therapy. She feels well in general. No symptoms of peripheral neuropathy. No autoimmune side effects. 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) 07/25/2024 Condyloma acuminatum 03/25/1983 no history of recurrance since treatment COVID-19 09/2021 Lymphocytic colitis Malignant neoplasm of left breast in female, estrogen receptor negative (HCC) 04/12/2023 Malignant neoplasm of upper-outer quadrant of female breast (HCC) 05/24/1991 breast cancer treated with chemo and radiation Mass of axilla, left 03/21/2023 Mental disorder Rectal bleeding Unspecified constipation 03/25/2004 [...] torn retina repair REMV CATARACT EXTRACAP,INSERT LENS US BREAST NEEDLE CORE BIOPSY LT Left 02/2023 LN bx ALLERGIES Allergen Reactions Bactrim [Sulfametho* GI Upset Current Outpatient Medications Medication Sig ondansetron (ZOFRAN) 8 mg tablet Take 1 tablet by mouth every 8 hours as needed (For chemotherapy induced nausea and vomiting.). acetaminophen (TYLENOL) 325 mg tablet Take 650 mg by mouth every 6 hours as needed. Lactobacillus acidophilus (PROBIOTIC) 10 billion cell cap Take 1 capsule by mouth once daily. cimetidine (TAGAMET ORAL) Take by mouth as needed. cholecalciferol, vitamin D3, (VITAMIN D3 ORAL) Take 1,000 Units by mouth once daily. CALCIUM ORAL Take 800 mg by mouth once daily. amino acids/multivitamin (MULTIVITAMIN-AMINO ACIDS ORAL) Take 1 tablet by mouth once daily. No amino acids PAXIL 30 MG TAB Take 30 mg by mouth once daily. No current facility-administered medications for this visit. Facility-Administered Medications Ordered in Other Visits Medication Dose Route Frequency NaCl 0.9% iv infusion 500-999 mL/hr INTRAVENOUS PRN diphenhydrAMINE 50 mg injection (BENADRYL) 50 mg INTRAVENOUS PRN hydrocortisone sodium succinate (PF) 100 mg injection (Solu-CORTEF) 100 mg INTRAVENOUS PRN EPINEPHrine HCl (PF) 1 mg/mL (1 mL) 0.3 mg injection 0.3 mg INTRAMUSCULAR PRN Social History Tobacco Use Smoking status: Former Current packs/day: 0.00 Types: Cigarettes Start date: 08/23/1981 Quit date: 08/24/1983 Years since quittin.1 Smokeless tobacco: Never Tobacco comments: in her early 20's, none now Vaping Use Vaping status: Never Used Substance Use Topics Alcohol use: Not Currently Drug use: Never Family History Problem Relation Age of Onset other (constipation) Mother other (atrial fib) Father other (stage 4 kidney failure) Father No Known Problems Brother Hypertension Maternal Grandmother Aneurysm Maternal Grandmother brain aneurysm age 64 No Known Problems Maternal Grandfather Stroke Paternal Grandmother two light strokes 74 year of age Diabetes Paternal Grandfather Diabetes Other GRANDFATHER No family h/o breast cancer or other cancer. Has a brother. OBSTETRIC RELATED HISTORY: P0 History Breast Feeding: No. Age at of First Child: N/A. Age at Onset of Menses: 9 years of age. Age at Menopause: Early 40s (chemotherapy) years of age. Ovaries: Both intact. Uterus: Intact Exogenous Hormone Use/HRT: No. Oral Contraceptives: Age 19-32. Tubal ligation age 31. ROS: Constitutional: No fever. No drenching night sweats. Normal appetite. No unexplained weight loss. No significant fatigue. Neuro: No recent AMARO, vertigo, dizziness or imbalance. No symptoms of sensory neuropathy. HEENT: No recent change in voice, vision or hearing. Resp: No cough, wheeze of hemoptysis. No shortness of breath at rest. No ORELLANA. CVS: No exertional chest pain, PND or orthopnea. No extremity swelling/edema. No symptoms of claudication. No painful or tender varicose veins. GI: No dysphagia or odynophagia. No reflux, n/v, change in bowel habits. No abdominal pain, bloating or distension. No black or bloody stools. : No dysuria or gross hematuria. No symptoms of bladder outlet obstruction. Endo: No hot flashes. No polyuria or polydipsia. No heat or cold intolerance. Musculoskeletal: See above. Derm: See above. Heme: No unusual bleeding and unexplained bruising. Psych: Normal mood. Participation of a fellow, resident, medical student, or advanced practice provider student in performing the sensitive examination was discussed with the patient or authorized traveling representative. The patient or authorized traveling representative has agreed to proceed with the sensitive examination. Brielle Mcbride LPN chaperoned. PHYSICAL EXAM: Vitals: Blood pressure 144/82, pulse 69, temperature 36.9 C (98.5 F), temperature source Temporal, weight 56 kg (123 lb 8 oz), last menstrual period 12/30/2007, SpO2 100%. Well-appearing and in no acute distress. EYES: Sclerae are anicteric bilaterally. BREAST: Left breast with multiple new and progressive dermal nodules. Photos taken. In the right breast, upper inner quadrant there is an approximate 2-1/2 x 2-1/2 cm mobile firm mass. ABDOMEN: The abdomen is nondistended. Extremities: No swelling or edema. Genetic testing: [facility] 05/10/2023 negative for germline mutation. NGS/biomarkers/driver license agent mutation analyses: PD-L1 CPS 30 from dermal metastasis specimen 07/17/2024. HER2 ultra-low same specimen. 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 -March 2023 diagnosed with a cTx cN2a Mx ER/VA negative, HER2 negative grade 3 clinical stage IIIC invasive mammary carcinoma of the left breast. -ypT0 pN0 M0 following neoadjuvant therapy with pembrolizumab, paclitaxel and carboplatin. She did not go on to receive AC with pembrolizumab in the neoadjuvant setting due to previous history of anthracycline use and excellent radiographic response of the tumor. - Now with biopsy-proven dermal metastases. Recent PET scan did not reveal metastatic disease otherwise. - Responded very nicely to paclitaxel and pembrolizumab. However when she took a break for several weeks to have right breast mass reevaluated, she had progression of disease. Plan: - Resume paclitaxel and pembrolizumab tomorrow. - Repeat imaging pending response over the next few weeks since the dermal metastases had rapidly responded to paclitaxel and pembrolizumab. 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 - Recent biopsy at [place] demonstrated angiosarcoma. - Discussed possible window of opportunity for surgery depending on response of breast cancer. Plan: - NGS testing on biopsy specimen from [place]. - Has surgical opinion scheduled with Dr. Christina on 09/22. Portions of this documentation were copied and pasted from my previous office visit note dated 08/24/2024 in order to provide a cohesive continuity of the history. The note has been reviewed and edited and updated as necessary. I spent a total of 30 minutes on the date of the service which included preparing to see the patient, jbak-by-hcia patient care, completing clinical documentation, obtaining and/or reviewing separately obtained history, performing a medically appropriate examination, counseling and educating the patient/family/caregiver, communicating with other HCPs (not separately reported), and communicating results to the patient/family/caregiver. Hellen Zhu DO documented in this encounter [facility] 09-18-2024 Telephone encounter Note Patient informed okay to take prednisone. Jael Gunter RN [facility] 09-18-2024 Miscellaneous Notes Patient informed okay to take prednisone. Jael Gunter RN Patient was prescribed 40 mg prednisone for 5 days for pinched nerve. She is asking if okay to take, she will be taking chemo next week. documented in this encounter [facility] 09-18-2024 Telephone encounter Note Patient was prescribed 40 mg prednisone for 5 days for pinched nerve. She is asking if okay to take, she will be taking chemo next week. [facility] Work Phone: 09-18-2024 Radiology Diagnostic study note [facility] Imaging Services [address] [place], [place] [id number] Cerv Spine 4 or 5 Views MR#: [id number] Acct: [id number] Name: Everette HERBERT Rep #: [id number] : 1960 F 64 From: Percy Garcia MD PCP: Dr. Hellen Lafleur MD Status: REG C ELICIA Study:Cerv Spine 4 or 5 Views Date of Exam: 09/17/24 Exam# [id number] Ordering Dr: Bennett Kong MD PROCEDURE: CERV SPINE 4 OR 5 VIEWS 09/17/2024 REASON FOR EXAM: L ARM PAIN, WEAKNESS, ULNAR DISTRIBUTION TECHNIQUE: CERV SPINE 4 OR 5 VIEWS COMPARISON: None. FINDINGS: Grade 1 retrolisthesis of C2 on C3. Grade 1 retrolisthesis of C3 on C4. Grade 1 anterolisthesis of C4 on C5. Grade 1 anterolisthesis of C7 on T1. There are diffuse spondylotic changes. Findings are demonstrated to by diffuse disc space narrowing, osteophyte formation and degenerative endplate sclerosis. There is diffuse facet joint arthropathy with secondary bilateral neural foramina narrowing. No fracture or dislocation is seen. No aggressive lytic or blastic bony lesion is noted. RAD/Cerv Spine 4 or 5 Views IMPRESSION: Spondylosis. Grade 1 retrolisthesis of C2 on C3. Grade 1 retrolisthesis of C3 on C4. Grade 1 anterolisthesis of C4 on C5. Grade 1 anterolisthesis of C7 on T1. Reading Location: [place] [address] CC: Dr. Alec Kong MD; Dr. Hellen Lafleur MD ~ 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: Signed [facility] 09-15-2024 Telephone encounter Note I requested Dr. Merino's OV note. Dr. Zhu spoke with the patient. Brielle Mcbride LPN [facility] 09-15-2024 Miscellaneous Notes I requested Dr. Merino's OV note. Dr. Zhu spoke with the patient. Brielle Mcbride LPN Patient stated she had an appointment with Dr. Merino today and she would like patient to resume treatment. Patient is asking when she should resume taxol? Patient is scheduled for an OV with Dr. Zhu on 09/21 and taxol on 09/22. Patient stated she was advised to start sooner than currently scheduled. Please advise. Thank you. Jael Gunter RN documented in this encounter [facility] 09-15-2024 Telephone encounter Note Patient stated she had an appointment with Dr. Merino today and she would like patient to resume treatment. Patient is asking when she should resume taxol? Patient is scheduled for an OV with Dr. Zhu on 09/21 and taxol on 09/22. Patient stated she was advised to start sooner than currently scheduled. Please advise. Thank you. Jael Gunter RN [facility] 09-03-2024 Telephone encounter Note Sounds good. Thank you. Hellen Zhu DO [facility] 09-03-2024 Miscellaneous Notes Sounds good. Thank you. Hellen Zhu DO Spoke with pt. , informed she can continue Keytruda up to the time of surgery and right after depending on how things are scheduled. Should hold paclitaxel about 2-3 weeks prior to surgery however. Pt. Voiced she would like to get the surgery LOIS. Spoke with Marcie in [facility] office given information concerning pt. , she informed Dr. Merino will return into the office on 09/08 , she will discuss with physician in advance and have plan in place. when pt. There for OV on 09/15 will have all arrangements made so pt. Can have surgery on 09/21 or 09/28. If DR. Zhu is in agreement than on 09/08 she can have her Keytruda only and this will put her in the time frame needed to undergo surgery on either date. Kathie Adame LPN I recommend right sided mastectomy. Happy to speak with Dr. Merino next week when she returns. Shellie can certainly continue Keytruda up to the time of surgery and right after depending on how things are scheduled. Should hold paclitaxel about 2-3 weeks prior to surgery however. Hellen Zhu DO Path results given to Dr. Zhu. Brielle Mcbride LPN I requested path results from 08/26/[address] Merino's office. Brielle Mcbride LPN Patient called asking if we received biopsy results from [facility] yesterday. She states it would be coming from Dr. Merino. She is asking if there will be a change in her treatment due to results documented in this encounter [facility] 09-03-2024 Telephone encounter Note Spoke with pt. , informed she can continue Keytruda up to the time of surgery and right after depending on how things are scheduled. Should hold paclitaxel about 2-3 weeks prior to surgery however. Pt. Voiced she would like to get the surgery LOIS. Spoke with Marcie in [facility] office given information concerning pt. , she informed Dr. Merino will return into the office on 09/08 , she will discuss with physician in advance and have plan in place. when pt. There for OV on 09/15 will have all arrangements made so pt. Can have surgery on 09/21 or 09/28. If DR. Zhu is in agreement than on 09/08 she can have her Keytruda only and this will put her in the time frame needed to undergo surgery on either date. Kathie Adame LPN [facility] 09-03-2024 Telephone encounter Note I recommend right sided mastectomy. Happy to speak with Dr. Merino next week when she returns. Shellie can certainly continue Keytruda up to the time of surgery and right after depending on how things are scheduled. Should hold paclitaxel about 2-3 weeks prior to surgery however. Hellen Zhu DO [facility] 09-03-2024 Telephone encounter Note Path results given to Dr. Zhu. Brielle Mcbride LPN [facility] 09-03-2024 Telephone encounter Note I requested path results from 08/26/[address] Merino's office. Brielle Mcbride LPN [facility] 09-03-2024 Telephone encounter Note Patient called asking if we received biopsy results from [facility] yesterday. She states it would be coming from Dr. Merino. She is asking if there will be a change in her treatment due to results [facility] Work Phone: 08-25-2024 Note HNO ID: [id number] Author: BLANKA DEL RIO RN Service: ? Author Type: Registered Nurse Type: Progress Notes Filed: 08/25/2024 12:59 Note Text: Agree with assessment from 08/24/[address] Zhu [facility] 08-25-2024 History of Present illness Narrative Agree with assessment from 08/24/[address] Zhu documented in this encounter [facility] 08-24-2024 Note [facility] 08-24-2024 History of Present illness Narrative Oncologic problem(s): 1) cTx cN2a Mx ER/VA negative, HER2 negative grade 3 clinical stage IIIC invasive mammary carcinoma of the left breast. HPI: The patient is a 63 yo female with PMH as outlined below. [...] tissue involved by metastatic mammary carcinoma (provisional [place] grade 3). The carcinoma cells express cytokeratin AE1/AE3, GATA3, TRPS 1, and SOX10, and are negative for PAX8, TTF-1, and CDX2, supporting mammary origin. Breast biomarker studies have been requested and results will be reported separately in a linked report. 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 Diagnosed with lymphocytic colitis about 3 years ago. Abdominal pain/diarrhea. Treated with probiotic and magnesium supplement. Had MRI brain and PET scan at [facility] on 04/09. MRI reported with LEFT and RIGHT transposed--I dictated correct side below. MRI revealed a 1.4 x 1.0 x 0.8 cm enhancing mass in the upper outer quadrant of the LEFT breast located 2.3 cm from the nipple along the 1:00 axis. The mass is 1.9 cm from the underlying pectoralis and 1.1 cm from the skin surface. No additional abnormal enhancement was observed. There were multiple pathologically enlarged right axillary lymph nodes, at least 3 of which were included within the [id number]-lr-pbtx measuring up to 2.8 cm. No internal mammary lymphadenopathy. Postlumpectomy changes were noted in the upper inner quadrant of the RIGHT breast. There was a 4 to 5 mm focus of progressive enhancement along the superior medial aspect of the lumpectomy site which was nonspecific. No axillary adenopathy was noted. No internal mammary adenopathy was noted. A second look ultrasound of the focus of progressive enhancement in the left breast was recommended. Ultrasound-guided biopsy of right and left breast lesions on 04/24/2023. Pathology: Left breast at 1 o'clock, 4 cm from the nipple, core biopsy: - INVASIVE DUCTAL CARCINOMA, POORLY DIFFERENTIATED. - Angiolymphatic invasion present. - See comment. Estrogen receptors: NEGATIVE (0) Progesterone receptors: NEGATIVE (0) HER2/patricia: NEGATIVE (0) Right breast at 1 o'clock, 4 cm from the nipple, core biopsy: - Inflamed fibroadipose tissue with hemorrhage, stromal fibroelastosis and fat necrosis. - No malignancy identified. - See comment. Previous therapy: 1) Paclitaxel and carboplatin along with pembrolizumab. 2) AC with pembro x1 cycle. Neutropenic on day 8, cycle #2. Treatment deferred. On return 05/30, still neutropenic. Treatment deferred. Received Neulasta on 06/02. Cycles 2-4 AC held due to risk of CM and response on MRI following carbo/paclitaxel/pembro. Since last seen underwent lumpectomy with sentinel lymph node biopsy on 10/02/2023. Pathologic CR. Additional margins including deep, inferior, superior, medial, anterior and lateral all negative for carcinoma. 5 sentinel lymph nodes retrieved. All negative for disease. Current therapy: 1) Paclitaxel and pembrolizumab. Presents for ongoing oncologic management. Interim history: Biopsy dermal lesions c/w TNBC PET negative for distant matastases. Tolerating therapy well. No symptoms of neuropathy. 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) 07/25/2024 Condyloma acuminatum 03/25/1983 no history of recurrance since treatment COVID-19 09/2021 Lymphocytic colitis Malignant neoplasm of left breast in female, estrogen receptor negative (HCC) 04/12/2023 Malignant neoplasm of upper-outer quadrant of female breast (HCC) 05/24/1991 breast cancer treated with chemo and radiation Mass of axilla, left 03/21/2023 Mental disorder Rectal bleeding Unspecified constipation 03/25/2004 [...] torn retina repair REMV CATARACT EXTRACAP,INSERT LENS US BREAST NEEDLE CORE BIOPSY LT Left 02/2023 LN bx ALLERGIES Allergen Reactions Bactrim [Sulfametho* GI Upset Current Outpatient Medications Medication Sig ondansetron (ZOFRAN) 8 mg tablet Take 1 tablet by mouth every 8 hours as needed (For chemotherapy induced nausea and vomiting.). acetaminophen (TYLENOL) 325 mg tablet Take 650 mg by mouth every 6 hours as needed. Lactobacillus acidophilus (PROBIOTIC) 10 billion cell cap Take 1 capsule by mouth once daily. cimetidine (TAGAMET ORAL) Take by mouth as needed. cholecalciferol, vitamin D3, (VITAMIN D3 ORAL) Take 1,000 Units by mouth once daily. CALCIUM ORAL Take 800 mg by mouth once daily. amino acids/multivitamin (MULTIVITAMIN-AMINO ACIDS ORAL) Take 1 tablet by mouth once daily. No amino acids PAXIL 30 MG TAB Take 30 mg by mouth once daily. No current facility-administered medications for this visit. Facility-Administered Medications Ordered in Other Visits Medication Dose Route Frequency NaCl 0.9% iv infusion 500-999 mL/hr INTRAVENOUS PRN diphenhydrAMINE 50 mg injection (BENADRYL) 50 mg INTRAVENOUS PRN hydrocortisone sodium succinate (PF) 100 mg injection (Solu-CORTEF) 100 mg INTRAVENOUS PRN EPINEPHrine HCl (PF) 1 mg/mL (1 mL) 0.3 mg injection 0.3 mg INTRAMUSCULAR PRN Social History Tobacco Use Smoking status: Former Current packs/day: 0.00 Types: Cigarettes Start date: 08/23/1981 Quit date: 08/24/1983 Years since quittin.0 Smokeless tobacco: Never Tobacco comments: in her early 20's, none now Vaping Use Vaping status: Never Used Substance Use Topics Alcohol use: Not Currently Drug use: Never Family History Problem Relation Age of Onset other (constipation) Mother other (atrial fib) Father other (stage 4 kidney failure) Father No Known Problems Brother Hypertension Maternal Grandmother Aneurysm Maternal Grandmother brain aneurysm age 64 No Known Problems Maternal Grandfather Stroke Paternal Grandmother two light strokes 74 year of age Diabetes Paternal Grandfather Diabetes Other GRANDFATHER No family h/o breast cancer or other cancer. Has a brother. OBSTETRIC RELATED HISTORY: P0 History Breast Feeding: No. Age at of First Child: N/A. Age at Onset of Menses: 9 years of age. Age at Menopause: Early 40s (chemotherapy) years of age. Ovaries: Both intact. Uterus: Intact Exogenous Hormone Use/HRT: No. Oral Contraceptives: Age 19-32. Tubal ligation age 31. ROS: Constitutional: No fever. No drenching night sweats. Normal appetite. No unexplained weight loss. No significant fatigue. Neuro: No recent AMARO, vertigo, dizziness or imbalance. No symptoms of sensory neuropathy. HEENT: No recent change in voice, vision or hearing. Resp: No cough, wheeze of hemoptysis. No shortness of breath at rest. No ORELLANA. CVS: No exertional chest pain, PND or orthopnea. No extremity swelling/edema. No symptoms of claudication. No painful or tender varicose veins. GI: No dysphagia or odynophagia. No reflux, n/v, change in bowel habits. No abdominal pain, bloating or distension. No black or bloody stools. : No dysuria or gross hematuria. No symptoms of bladder outlet obstruction. Endo: No hot flashes. No polyuria or polydipsia. No heat or cold intolerance. Musculoskeletal: See above. Derm: See above. Heme: No unusual bleeding and unexplained bruising. Psych: Normal mood. Participation of a fellow, resident, medical student, or advanced practice provider student in performing the sensitive examination was discussed with the patient or authorized traveling representative. The patient or authorized traveling representative has agreed to proceed with the sensitive examination. Brielle Mcbride LPN chaperoned. PHYSICAL EXAM: Vitals: Blood pressure 109/55, pulse 65, temperature 37.2 C (98.9 F), temperature source Temporal, weight 56.5 kg (124 lb 8 oz), last menstrual period 12/30/2007, SpO2 100%. Well-appearing and in no acute distress. EYES: Sclerae are anicteric bilaterally. BREAST: Left breast with multiple dermal nodules. Distribution different, but had new ones prior to starting therapy. See photos. ABDOMEN: The abdomen is nondistended. Extremities: No swelling or edema. SKIN: No rash or jaundice. 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 -cTx cN2a Mx ER/VA negative, HER2 negative grade 3 clinical stage IIIC invasive mammary carcinoma of the left breast. -ypT0 pN0 M0. -No family history of breast, gynecologic or other malignancy. -Genetic testing normal. -Responding disease. Discussed continuing as long as tolerating well and cancer controlled. Plan: -Okay to continue therapy. Portions of this documentation were copied and pasted from my previous office visit note dated 07/16/2024 in order to provide a cohesive continuity of the history. The note has been reviewed and edited and updated as necessary. Hellen Zhu DO documented in this encounter [facility] 08-19-2024 Note Exam Date Time Procedure Performing Provider Status 08/19/24 10:32 AM US Breast Right Limited SAMI HADDAD MD; Auth (Verified) [id number] ORIGINAL FROM: [place] [address] PROCEDURE FOR: CARRIE IrvinAlfie HERBERT [address] [place] [id number] Home: PID#: [id number] Exam#: [id number] : 1960 Age: 64 TO: DEBBIE MERINO MD [address] [place] [address] Fax: NO FAX EXAMINATION: ULTRASOUND OF THE RIGHT BREAST 08/19/2024 8:58 am TECHNIQUE: Color flow and laughlin scale targeted ultrasound of the right breast were performed. Permanently stored images were reviewed. COMPARISON: 08/11/2024 mammogram and 08/04/2024 PET[facility] scan from [facility]. HISTORY: ORDERING SYSTEM PROVIDED HISTORY: Reason for Exam: Right breast mass. History of bilateral breast carcinoma. FINDINGS: In the right breast 1-2 o'clock there is a 2.1 x 2.8 x 1.1 cm hypoechoic mass with an irregular border, this corresponds to the mammographic abnormality in the PET-CT scan abnormality. No right axillary lymphadenopathy IMPRESSION: Right breast mass, this is suspicious for malignancy and ultrasound-guided biopsy is recommended. Tyrer Cuzick risk calculations do not apply for this patient. BIRADS: BI-RADS: 4: Suspicious RECALL: immediate RECALL TYPE: Biopsy followup LETTER SENT: Biopsy Recommended BI-RADS 4 and 5 Interpreted by: Anita Haddad MD Preliminary Report By: Anita Haddad MD Electronically signed By Anita Haddad MD Dictated Date: 08/19/2024 10:36:07 AM Prelim Date: 08/19/2024 10:49:23 AM Sign Date: 08/19/2024 10:49:23 AM Ordering Provider: DEBBIE MERINO [employer] Operator: JESUSITA BETTS [facility] letter sent: Biopsy Recommended BI-RADS 4 and 5 Ultrasound BI-RADS: 4 Suspicious [id number] Note* Exam Date Time Procedure Performing Provider Status 08/19/24 9:39 AM MA Mammo Diagnostic Bilateral w/Geo ANITA HADDAD MD; Auth (Verified) [id number] ORIGINAL FROM: [address] [address] PROCEDURE FOR: CARRIE Maikol HERBERT [address] [place] [id number] Home: PID#: [id number] Exam#: [id number] : 1960 Age: 64 TO: DEBBIE MERINO MD [address] [place] [address] Fax: NO FAX EXAMINATION: DIAGNOSTIC BILATERAL MAMMOGRAM WITH TOMOSYNTHESIS, 08/19/2024 8:57 am TECHNIQUE: Tomosynthesis was performed as part of the diagnostic bilateral mammogram. 2D standard and 3D tomosynthesis combination imaging performed. Current study was also evaluated with a Computer Aided Detection (CAD) system. COMPARISON: 08/20/2023 mammogram, 05/05/2024 right breast ultrasound. 08/04/2024 PET-CT scan. HISTORY: ORDERING SYSTEM PROVIDED HISTORY: Reason for Exam: follow up breast cancer. Right breast mass and left breast skin thickening on 08/04/2024 PET-CT scan. FINDINGS: BREAST DENSITY: There are scattered areas of fibroglandular density. In the right breast, corresponding to the PET-CT scan, at 2 o'clock there is a 3 x 1.7 x 2.2 cm in transverse by AP by craniocaudal dimensions irregular mass. Postsurgical change is present in the right breast. Postsurgical changes present in the left breast in there is diffuse left breast skin thickening and parenchymal thickening. There are intact bilateral retropectoral saline implants. No significant masses, calcifications, or other findings. IMPRESSION: Right breast mass concerning for malignancy, ultrasound is recommended to further evaluate. Ultrasound will be performed the same day and reported separately. Diffuse left breast skin thickening and edema, this is most likely post therapeutic in nature, malignant disease is not excludable. Correlate clinically. Reese Burnett risk calculations do not apply for this patient. BIRADS: BI-RADS: 0: Incomplete: Need Additional Imaging Evaluation RECALL: immediate RECALL TYPE: US LETTER SENT: Abnormal-Needs additional work up BI-RADS 0 Interpreted by: Anita Haddad MD Preliminary Report By: Anita Haddad MD Electronically signed By Anita Haddad MD Dictated Date: 08/19/2024 10:39:38 AM Prelim Date: 08/19/2024 10:46:10 AM Sign Date: 08/19/2024 10:46:10 AM Ordering Provider: DEBBIE MERINO [employer] Operator: JULIAN HOLLIS RT(R)(M) letter sent: Abnormal-Needs additional work up BI-RADS 0 Mammogram BI-RADS: 0 Indeterminate [id number] Telephone encounter Note* Telephone Encounter - Brielle Mcbride LPN - 08/05/2024 1:22 PM EDT Patient is aware of all information and will obtain a disc while here on Saturday for treatment. Brielle Mcbride LPN [facility]05-14-2025 Miscellaneous Notes* Telephone Encounter - Brielle Mcbride LPN - 08/05/2024 1:22 PM EDT Patient is aware of all information and will obtain a disc while here on Saturday for treatment. Brielle Mcbride LPN * Telephone Encounter - Hellen Zhu DO - 08/05/2024 12:58 PM EDT PET scan showed that the cancer appears to be confined to the left breast area. No spread to bones or internal organs! The spot in the right breast that was biopsied previously (benign findings) is brighter on the current PET scan than it was on the PET scan from last August, but appears to be the same brightness that was on her original PET scan March 2023. Nonetheless, I recommend she see her surgeon at [place] to evaluate an rebiopsy if she thinks it is indicated. Shellie could take a disc of the PET scan to her surgeon, Dr. Debbie Merino. Hellen Zhu DO * Telephone Encounter - Jael Gunter RN - 08/05/2024 11:20 AM EDT PET scan results are available to review. Results printed and will place on Dr. Zhu's desk. Jael Gunter RN * Telephone Encounter - Hellen Zhu DO - 08/04/2024 1:25 PM EDT Great. Thank you. Hellen Zhu DO * Telephone Encounter - Peg Stallings RN - 08/04/2024 11:40 AM EDT Patient updated on MRI results. She would like someone to call her when her PET scan comes back since she does not get on her mychart. She also wanted to let Dr. Zhu know her "bumps" are clearing up and she is very pleased with treatment so far. documented in [facility] encounterMer[facility] Telephone encounter Note * Telephone Encounter - Hellen Zhu DO - 08/05/2024 12:58 PM EDT PET scan showed that the cancer appears to be confined to the left breast area. No spread to bones or internal organs! The spot in the right breast that was biopsied previously (benign findings) is brighter on the current PET scan than it was on the PET scan from last August, but appears to be the same brightness that was on her original PET scan March 2023. Nonetheless, I recommend she see her surgeon at [place] to evaluate an rebiopsy if she thinks it is indicated. Shellie could take a disc of the PET scan to her surgeon, Dr. Debbie Merino. Hellen Zhu DO [facility]05-14-2025 Telephone encounter Note* Telephone Encounter - Jael Gunter RN - 08/05/2024 11:20 AM EDT PET scan results are available to review. Results printed and will place on Dr. Zhu's desk. Jael Gunter RN [facility]05-13-2025 Telephone encounter Note* Telephone Encounter - Hellen Zhu DO - 08/04/2024 1:25 PM EDT Great. Thank you. Hellen Zhu DO [facility]05-13-2025 Telephone encounter Note* Telephone Encounter - Peg Stallings RN - 08/04/2024 11:40 AM EDT Patient updated on MRI results. She would like someone to call her when her PET scan comes back since she does not get on her mychart. She also wanted to let Dr. Zhu know her "bumps" are clearing up and she is very pleased with treatment so far. [facility]05-08-2025 Progress note* Result Encounter Note - Hellen Zhu DO - 07/30/2024 4:11 PM EDT Can let her know MRI brain normal. [facility]05-08-2025 Miscellaneous Notes* Result Encounter Note - Hellen Zhu DO - 07/30/2024 4:11 PM EDT Can let her know MRI brain normal. documented in this encounterMercy [facility]05-08-2025 History of Present illness Narrative* Kia Trujillo RT(R) - 07/30/2024 2:00 PM EDT Radiology Service Progress Note DATE OF SERVICE: July 30, 2024 TIME: 2:03 PM PATIENT IDENTITY VERIFICATION COMPLETED USING TWO (2) STANDARD IDENTIFIERS: Name and Date of confirmed by patient verbally. FALL SCREENING: Has the patient had 2 falls in the last year or 1 fall with injury or currently using an Ambulatory Assistive Device (Walker, Cane, Wheelchair, Crutches, etc.)? No PATIENT GENDER DATA: Assigned female at . status: : No status:NO. PATIENT RELEVANT IMPLANT DATA REVIEWED: Yes PATIENT PRESENTS WITH AN IMPLANTABLE OR ATTACHED DISPLAY TRIMMER: No ALLERGIES: Reviewed and unchanged CONTRAST ALLERGY: NO. EXAM: MRI - CONTRAST TYPE: GROUP II PERIPHERAL IV DATA: Ambulatory: A peripheral IV was started in the Right antecubital site with a Angio cath: 22 gauge. RADIOLOGY DEPARTMENT: MR; Exam(s) Completed: Head: Routine Brain. Lavender Administered: No SIGNATURE: RT Declan(R) PATIENT NAME: Carrie Herbert DATE: July 30, 2024 TIME: 2:03 PM documented in this encounterMer[facility]05-[facility]-2025 [facility]Prem[facility] Telephone encounter Note* Telephone Encounter - Jael Gunter RN - 07/29/2024 10:54 AM EDT CYCLE 1/DAY 1 POST TREATMENT CALL Today's date: July 29, 2024 Treatment Regimen: Keytruda/Paclitaxel C1D1 Date: 07/28/24 Called patient to follow-up on symptom management. Spoke with patient SYMPTOM ASSESSMENT Neuro: None CV/Resp: None GI/: Nausea took Zofran last night d/t mild nausea. Patient stated this resolved. Appetite is great. Integument: None Activity: Patient reported no changes in energy level, energy level good Pain: No=0 (pain 0 on a scale of 0-10). Fever: No Chills: No Patient stated she slept good, she feels good, and she has no complaints at this time. Any new referrals needed? No Reinforced CURRENT treatment education based on current and anticipated symptoms. Discussed port/line care and patient verbalizes understanding: Not Applicable Patient instructed to contact office or after hours Hematology/Oncology fellow for: temperature >= 100.4; questions or concerns. Patient verbalized understanding of when to seek medical attention and after hours number protocol. Jael Gunter RN [facility]05-07-2025 Miscellaneous Notes* Telephone Encounter - Jael Gunter RN - 07/29/2024 10:54 AM EDT CYCLE 1/DAY 1 POST TREATMENT CALL Today's date: July 29, 2024 Treatment Regimen: Keytruda/Paclitaxel C1D1 Date: 07/28/24 Called patient to follow-up on symptom management. Spoke with patient SYMPTOM ASSESSMENT Neuro: None CV/Resp: None GI/: Nausea took Zofran last night d/t mild nausea. Patient stated this resolved. Appetite is great. Integument: None Activity: Patient reported no changes in energy level, energy level good Pain: No=0 (pain 0 on a scale of 0-10). Fever: No Chills: No Patient stated she slept good, she feels good, and she has no complaints at this time. Any new referrals needed? No Reinforced CURRENT treatment education based on current and anticipated symptoms. Discussed port/line care and patient verbalizes understanding: Not Applicable Patient instructed to contact office or after hours Hematology/Oncology fellow for: temperature >= 100.4; questions or concerns. Patient verbalized understanding of when to seek medical attention and after hours number protocol. Jael Gunter RN documented in this encounterMer[facility]05-[facility]-2025 Telephone encounter Note * Telephone Encounter - Thelma Vitale - 07/28/2024 2:55 PM EDT Schedule updated [facility] Work Phone: [phone] 295-992705-06-2025 Miscellaneous Notes* Telephone Encounter - Thelma Vitale - 07/28/2024 2:55 PM EDT Schedule updated * Telephone Encounter - Keila Crooks RN - 07/28/2024 1:54 PM EDT Pt no longer has a port. Please schedule lab appts accordingly. Thank you. documented in this encounterMercy [facility]05-06-2025 Note* Addendum Note - Keila Crooks RN - 07/28/2024 1:54 PM EDTAddended by: KEILA CROOKS on: 07/28/2024 01:54 PM Modules accepted: Orders [facility]05-06-2025 Telephone encounter Note* Telephone Encounter - Keila Crooks RN - 07/28/2024 1:54 PM EDT Pt no longer has a port. Please schedule lab appts accordingly. Thank you. [facility]05-06-2025 Miscellaneous Notes* Addendum Note - Keila Crooks RN - 07/28/2024 1:54 PM EDTAddended by: KEILA CROOKS on: 07/28/2024 01:54 PM Modules accepted: Orders * Addendum Note - Keila Crooks RN - 07/28/2024 11:48 AM EDTAddended by: KEILA CROOKS on: 07/28/2024 11:48 AM Modules accepted: Orders documented in this encounterMercy [facility]05-06-2025 Note* Addendum Note - Keila Crooks RN - 07/28/2024 11:48 AM EDTAddended by: KEILA CROOKS on: 07/28/2024 11:48 AM Modules accepted: Orders [facility]05-05-2025 Telephone encounter Note* Telephone Encounter - Hellen Zhu DO - 07/27/2024 7:46 PM EDT Thank you. The following approved medication requests have been transmitted electronically. Requested Prescriptions Signed Prescriptions Disp Refills ondansetron (ZOFRAN) 8 mg tablet 30 tablet 2 Sig: Take 1 tablet by mouth every 8 hours as needed (For chemotherapy induced nausea and vomiting.). Authorizing Provider: HELLEN ZHU DO [facility]05-05-2025 Miscellaneous Notes* Telephone Encounter - Hellen Zhu DO - 07/27/2024 7:46 PM EDT Thank you. The following approved medication requests have been transmitted electronically. Requested Prescriptions Signed Prescriptions Disp Refills ondansetron (ZOFRAN) 8 mg tablet 30 tablet 2 Sig: Take 1 tablet by mouth every 8 hours as needed (For chemotherapy induced nausea and vomiting.). Authorizing Provider: HELLEN ZHU DO * Telephone Encounter - Jael Gunter RN - 07/27/2024 3:59 PM EDT ONCOLOGY PATIENT EDUCATION NOTE TOPIC: Chemotherapy Immunotherapy, Medications: Paclitaxel/Keytruda patient called today for education for treatment of Breast Cancer Anticipated/Scheduled start date: 07/28/24 READINESS TO LEARN: COGNITIVE ABILITY: Alert and oriented MOTIVATION TO LEARN: Interested FAMILY SUPPORT: Unable to assess - Family not present INSTRUCTION PROVIDED TO: Patient INSTRUCTION PROVIDED BY: Nurse Coordinator PATIENT LEARNS BEST BY: Multiple Methods FACTORS AFFECTING LEARNING: None PHYSICAL LIMITATIONS AFFECTING LEARNING: None LEARNING RESPONSE METHOD OF INSTRUCTION: Individual instruction Written instruction/Handouts Verbal instruction PATIENT/FAMILY RESPONSE: Verbalizes understanding of: CHEMOTHERAPY-Regimen, toxicity and side effects FOLLOW UP PLAN: Patient instructed to call with any further issues Recommend - Recommend continued instruction and follow up as directed Follow up phone call. Contact information given. SUPPLEMENTAL MATERIAL: Written material was provided at this visit with the following information: - Chemotherapy Immunotherapy education was provided by a pharmacist NO - Side effect management information was provided/discussed including but not limited to: anemia, appetite changes, arthralgia, bowel habit changes, electrolyte disturbances, fatigue, myalgia, nausea/vomitting, peripheral neuropathy, thrombocytopenia YES - Provided important phone numbers and contacts during and after hours. YES - Provided information on symptoms that require immediate assistance. YES - Provided Chemotherapy Immunotherapy "when to call" handouts YES - Preventing infection. YES - Treatment schedule and confirmation of appointment times. YES - Available support groups. YES - The importance of contraception during the course of chemotherapy YES - Neutropenic fever protocol discussed with patient, which included the importance of reporting anyfever of 100.4F (38.0C) or greater to the healthcare team as noted on the provided wallet card and/or magnet. YES Time Spent: 15 minutes REFERRAL (RECOMMENDATION): N/A Jael Gunter RN documented in this encounterMercy [facility]05-05-2025 Telephone encounter Note * Telephone Encounter - Jael Gunter RN - 07/27/2024 3:59 PM EDT ONCOLOGY PATIENT EDUCATION NOTE TOPIC: Chemotherapy Immunotherapy, Medications: Paclitaxel/Keytruda patient called today for education for treatment of Breast Cancer Anticipated/Scheduled start date: 07/28/24 READINESS TO LEARN: COGNITIVE ABILITY: Alert and oriented MOTIVATION TO LEARN: Interested FAMILY SUPPORT: Unable to assess - Family not present INSTRUCTION PROVIDED TO: Patient INSTRUCTION PROVIDED BY: Nurse Coordinator PATIENT LEARNS BEST BY: Multiple Methods FACTORS AFFECTING LEARNING: None PHYSICAL LIMITATIONS AFFECTING LEARNING: None LEARNING RESPONSE METHOD OF INSTRUCTION: Individual instruction Written instruction/Handouts Verbal instruction PATIENT/FAMILY RESPONSE: Verbalizes understanding of: CHEMOTHERAPY-Regimen, toxicity and side effects FOLLOW UP PLAN: Patient instructed to call with any further issues Recommend - Recommend continued instruction and follow up as directed Follow up phone call. Contact information given. SUPPLEMENTAL MATERIAL: Written material was provided at this visit with the following information: - Chemotherapy Immunotherapy education was provided by a pharmacist NO - Side effect management information was provided/discussed including but not limited to: anemia, appetite changes, arthralgia, bowel habit changes, electrolyte disturbances, fatigue, myalgia, nausea/vomitting, peripheral neuropathy, thrombocytopenia YES - Provided important phone numbers and contacts during and after hours. YES - Provided information on symptoms that require immediate assistance. YES - Provided Chemotherapy Immunotherapy "when to call" handouts YES - Preventing infection. YES - Treatment schedule and confirmation of appointment times. YES - Available support groups. YES - The importance of contraception during the course of chemotherapy YES - Neutropenic fever protocol discussed with patient, which included the importance of reporting anyfever of 100.4F (38.0C) or greater to the healthcare team as noted on the provided wallet card and/or magnet. YES Time Spent: 15 minutes REFERRAL (RECOMMENDATION): N/A Jael Gunter RN [facility]05-03-2025 Telephone encounter Note* Telephone Encounter - Mary Green MD - 07/25/2024 7:52 AM EDT Reviewed pathology results this morning and talked with patient on the phone about carcinoma consistent with origin with breast with markers being triple negative. Discussed with patient some of the possible treatment options but stated that Dr. Zhu and/or Dr. Davis would be best suited for this discussion. [facility] Work Phone: [phone] 406-330105-03-2025 Miscellaneous Notes* Telephone Encounter - Mary Green MD - 07/25/2024 7:52 AM EDT Reviewed pathology results this morning and talked with patient on the phone about carcinoma consistent with origin with breast with markers being triple negative. Discussed with patient some of the possible treatment options but stated that Dr. Zhu and/or Dr. Davis would be best suited for this discussion. * Telephone Encounter - Kathie Adame LPN - 07/24/2024 2:39 PM EDT Spoke with pt. , she informed the lesions on her left breast have increased in number, nd she is now aware they are there. Pathology is still in process, Dr. Green informed her if it becomes available over the weekend he will contact her. Kathie Adame LPN * Telephone Encounter - Thelma Vitale - 07/24/2024 1:46 PM EDT Patient calling for 07/17 biopsy results. Informed her they were still in process. She is asking to speak to clinical about them if possible. She states she is nervous and that she knows it is cancer. documented in this encounterSteven Ville [address]-02-2025 Telephone encounter Note * Telephone Encounter - Kathie Adame LPN - 07/24/2024 2:39 PM EDT Spoke with pt. , she informed the lesions on her left breast have increased in number, nd she is now aware they are there. Pathology is still in process, Dr. Green informed her if it becomes available over the weekend he will contact her. Kathie Adame LPN [facility]05-02-2025 Telephone encounter Note* Telephone Encounter - Thelma Vitale - 07/24/2024 1:46 PM EDT Patient calling for 07/17 biopsy results. Informed her they were still in process. She is asking to speak to clinical about them if possible. She states she is nervous and that she knows it is cancer. [facility] Work Phone: 1(602) 731-815605-02-2025 Instructions* Patient Instructions* Mary Green MD - 07/24/2024 7:04 AM EDT documented in this encounterMercy Health [facility]05-02-2025 NotePrem[facility]05-02-2025 History of Present illness Narrative* Mary Green MD - 07/24/2024 6:59 AM EDT FOLLOW UP VISIT NAME: Carrie Hensley [facility] NO.: [id number] DATE OF SERVICE: 07/23/2024 : 1960 REFERRING PHYSICIAN: Ken Zarco MD Carrie is a patient I am following for suspicious skin lesions. Shellie reports the onset of cutaneous lesions on the left breast approximately 6 weeks ago. She was unaware of the potential significance of these lesions and did not seek medical attention earlier.Upon examination by her oncologist yesterday, she was informed that the lesions might represent a recurrence of breast cancer. She inquires about the treatability of this condition. Her medical history is significant for breast cancer, with a lumpectomy performed on the left breast in September of last year, followed by chemotherapy and radiation therapy. She also has a history of breast cancer on the right side, treated with a lumpectomy 30 years ago. She has an allergy to Bactrim. The patient is being seen by me at the request of Dr. Zhu for my opinion and advice regarding left breast nodule suspicious for cutaneous recurrence. I performed punch biopsies of two larger sites last week. Pathology is still pending VITALS: Temperature 36.6 C (97.8 F), weight 55.7 kg (122 lb 12.8 oz), last menstrual period 12/30/2007. On examination, the sites are clean, the sutures were removed and steri-strips were applied Assessment IMPRESSION: s/p punch biopsy of suspicious for recurrence skin site PLAN: If the patient notes any problems or signs of any infections, the patient should contact me immediately. 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 Mary Green MD documented in this encounterMer[facility]04-27-2025 NotePrem[facility]04-25-2025 NotePrem[facility]04-25-2025 NotePrem[facility]04-24-2025 NotePrem[facility]04-21-2025 Telephone encounter Note* Telephone Encounter - Roro Lorenzo - 07/13/2024 1:09 PM EDT I called and spoke to Carrie and scheduled her to see this week 07/16/24 @ 11:30 am, she confirmed this date and time Roro Andujar Pss [facility]04-21-2025 Miscellaneous Notes* Telephone Encounter - Roro Lorenzo - 07/13/2024 1:09 PM EDT I called and spoke to Carrie and scheduled her to see this week 07/16/24 @ 11:30 am, she confirmed this date and time Roro Andujar Pss * Telephone Encounter - Hellen Zhu DO - 07/13/2024 12:38 PM EDT OV with me. Hellen Zhu DO * Telephone Encounter - Roro Lorenzo - 07/13/2024 11:21 AM EDT Carrie called in stating that she has red bumps that have appeared on her left breast which is the side she had cancer on. She stated they started about 5 weeks ago or so and they are almost like acne, not really small but not large, they are raised and red. She stated they are not too itchy and arenot painful at all She was wondering if she should start with our office or if she should see her PCP about this first? Please advise and we can let Carrie know Roro Suarezjus Pss documented in this encounterMercy Health [facility] Hospital04-21-2025 Telephone encounter Note * Telephone Encounter - Hellen Zhu DO - 07/13/2024 12:38 PM EDT OV with me. Hellen Zhu DO [facility]04-21-2025 Telephone encounter Note* Telephone Encounter - Roro Lorenzo - 07/13/2024 11:21 AM EDT Carire called in stating that she has red bumps that have appeared on her left breast which is the side she had cancer on. She stated they started about 5 weeks ago or so and they are almost like acne, not really small but not large, they are raised and red. She stated they are not too itchy and arenot painful at all She was wondering if she should start with our office or if she should see her PCP about this first? Please advise and we can let Carrie know Roro Cooper [facility]04-08-2025 Discharge summary Author Chase Manjarrez [facility] Note Date/Time June 30, 2024 3:[address] [facility] Physical Therapy [facility] [address] [place] [address] / REHABILITATION SERVICES DISCHARGE SUMMARY MR#: [id number] Acct: [id number] Name: Everette HERBERT Rep #: [id number] : 1960 64 From: Cert. KIKA ParisiT, OCS Referring Dr.: Dr. Alec Kong MD Stat us: REG RCR Insurance: MEDICARE PART A B [facility] Discharge Summary D/C summary: It has been my pleasure to treat Everette HERBERT referred by Dr. 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 Discharge Date: 06/30/24 Please see the following information for a summary of their discharge status. Subjective Subjective: Doing well no pain Pain Right: Pain Intensity (Out of 10): 0 Right Lower Extremity: Pain Intensity (Out of 10): 0 Overall Improvement % Improvement: 80 Objective Objective/Function: POSTURE: mild forward posture GAIT: reciprocal pattern PALAPTION: unremarkable FLEXABILITY: hamstrings mod tight + MMT: quads/hams/hip ,ankle 4/5 LUMBAR ROM: flexion min loss ,extension mod loss ,side glides min loss Goals Goal 1:: Patient to be I with HEP for back Goal Progress: Goal Met Goal 2:: Patient to demonstrate 60% improvement with less pain and improved function Goal Progress: Goal Met Goal 3:: Patient to improve lumbar ROM for function of recovery for lifting and ADL Goal Progress: Goal Met Goal 4:: Patient to improve back oswestry score by 5 points to improve function and QOL Plan Plan: D/C D/C Information Discharge Comments: HEP d/c sentence: If there are questions or concerns regarding this patient's physical therapy, please feel free to call me at [phone]. Thank you for the referral of thispatient. Sincerely, Chase Manjarrez PT, Cert T, OCS Balance/Gait/Functional tests Balance/Special Test Scores Oswestry Low Back Score: 0 Improvement % Improvement: 80 <Electronically signed by Reena Arriaza PT. GREG, OCS> 06/30/24 [id number] CC: Dr. Alec Kong MD; Dr. Hellen Lafleur MD ~ JLA Signed [facility] Work Phone: [phone]) 112-719404-08-[address] [facility] Physical Therapy [facility] [address] [place] [id number] / REHABILITATION SERVICES DISCHARGE SUMMARY MR#: [id number] Acct: [id number] Name: Everette HERBERT Rep #: [id number] : 1960 64 From: Cert. GREG Parisi, OCS Referring Dr.: Dr. Alec Kong MD Stat us: REG RCR Insurance: MEDICARE PART A B [facility] Discharge Summary D/C summary: It has been my pleasure to treat Everette HERBERT referred by Dr. 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 Discharge Date: 06/30/24 Please see the following information for a summary of their discharge status. Subjective Subjective: Doing well no pain Pain Right: Pain Intensity (Out of 10): 0 Right Lower Extremity: Pain Intensity (Out of 10): 0 Overall Improvement % Improvement: 80 Objective Objective/Function: POSTURE: mild forward posture GAIT: reciprocal pattern PALAPTION: unremarkable FLEXABILITY: hamstrings mod tight + MMT: quads/hams/hip ,ankle 4/5 LUMBAR ROM: flexion min loss ,extension mod loss ,side glides min loss Goals Goal 1:: Patient to be I with HEP for back Goal Progress: Goal Met Goal 2:: Patient to demonstrate 60% improvement with less pain and improved function Goal Progress: Goal Met Goal 3:: Patient to improve lumbar ROM for function of recovery for lifting and ADL Goal Progress: Goal Met Goal 4:: Patient to improve back oswestry score by 5 points to improve function and QOL Plan Plan: D/C D/C Information Discharge Comments: HEP d/c sentence: If there are questions or concerns regarding this patient's physical therapy, please feel free to call me at [phone]. Thank you for the referral of thispatient. Sincerely, Chase Manjarrez, PT, Cert MDT, OCS Balance/Gait/Functional tests Balance/Special Test Scores Oswestry Low Back Score: 0 Improvement % Improvement: 80 06/30/24 1511 CC: Dr. Alec Kong MD; Dr. Hellen Lafleur MD ~ JLA Signed [facility]03-10-2025 [facility] History of Present illness Narrative* Kala Kaba - 06/01/2024 1:09 PM EDT Carrie Herbert 1960 Oncologic problem(s): 1) cTx cN2a Mx ER/VA negative, HER2 negative grade 3 clinical stage IIIC invasive mammary carcinomaof the left breast. HPI: The patient is a 63 yo female with PMH as outlined below. 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 Diagnosed with lymphocytic colitis about 3 years ago. Abdominal pain/diarrhea. Treated with probiotic and magnesium supplement. Had MRI brain and PET scan at [facility] on 04/09. MRI reported with LEFT and RIGHT transposed--I dictated correct side below. MRI revealed a 1.4 x 1.0 x 0.8 cm enhancing mass in the upper outer quadrant of the LEFT breast located 2.3 cm from the nipple along the 1:00 axis. The mass is 1.9 cm from the underlying pectoralis and 1.1 cm from the skin surface. No additional abnormal enhancement was observed. There were multiple pathologically enlarged right axillary lymph nodes, at least 3 of which were included within the [id number] measuring up to 2.8 cm. No internal mammary lymphadenopathy. Postlumpectomy changes were noted in the upper inner quadrant of the RIGHT breast. There was a 4 to5 mm focus of progressive enhancement along the superior medial aspect of the lumpectomy site whichwas nonspecific. No axillary adenopathy was noted. No internal mammary adenopathy was noted. A second look ultrasound of the focus of progressive enhancement in the left breast was recommended. Ultrasound-guided biopsy of right and left breast lesions on 04/24/2023. Pathology: Left breast at 1 o'clock, 4 cm from the nipple, core biopsy: - INVASIVE DUCTAL CARCINOMA, POORLY DIFFERENTIATED. - Angiolymphatic invasion present. - See comment. Estrogen receptors: NEGATIVE (0) Progesterone receptors: NEGATIVE (0) HER2/patricia: NEGATIVE (0) Right breast at 1 o'clock, 4 cm from the nipple, core biopsy: - Inflamed fibroadipose tissue with hemorrhage, stromal fibroelastosis and fat necrosis. - No malignancy identified. - See comment. Previous therapy: 1) Paclitaxel and carboplatin along with pembrolizumab. 2) AC with pembro x1 cycle. 3) Pembrolizumab. Neutropenic on day 8, cycle #2. Treatment deferred. On return 05/30, still neutropenic. Treatment deferred. Received Neulasta on 06/02. Since last seen underwent lumpectomy with sentinel lymph node biopsy on 10/02/2023. Pathologic CR. Additional margins including deep, inferior, superior, medial, anterior and lateral all negative for carcinoma. 5 sentinel lymph nodes retrieved. All negative for disease. Current therapy: Surveillance Presents for ongoing oncologic management. Interim history: Ms. Herbert presents today for follow up. She reports feeling well. Denies new issues. Rash has completely resolved. Denies SE from pembro. No recent illness. No new lumps or bumps. Continues to have some cramping, she was evaluated and found to have a pinched nerve. Following with surg at [place], just had exam and US last month. No concerns. PAST MEDICAL HISTORY Diagnosis Date Condyloma acuminatum 03/25/1983 no history of recurrance since treatment COVID-19 09/2021 Lymphocytic colitis Malignant neoplasm of left breast in female, estrogen receptor negative (HCC) 04/12/2023 Malignant neoplasm of upper-outer quadrant of female breast (HCC) 05/24/1991 breast cancer treated with chemo and radiation Mass of axilla, left 03/21/2023 Mental disorder Rectal bleeding Unspecified constipation 03/25/2004 [...] torn retina repair REMV CATARACT EXTRACAP,INSERT LENS US BREAST NEEDLE CORE BIOPSY LT Left 02/2023 LN bx ALLERGIES Allergen Reactions Bactrim [Sulfametho* GI Upset Current Outpatient Medications Medication Sig acetaminophen (TYLENOL) 325 mg tablet Take 650 mg by mouth every 6 hours as needed. Lactobacillus acidophilus (PROBIOTIC) 10 billion cell cap Take 1 capsule by mouth once daily. cimetidine (TAGAMET ORAL) Take by mouth as needed. cholecalciferol, vitamin D3, (VITAMIN D3 ORAL) Take 1,000 Units by mouth once daily. CALCIUM ORAL Take 800 mg by mouth once daily. amino acids/multivitamin (MULTIVITAMIN-AMINO ACIDS ORAL) Take 1 tablet by mouth once daily. No amino acids PAXIL 30 MG TAB Take 30 mg by mouth once daily. iv contrast (will be provided with radiology test) CT Chest W -Inject, intravenously, once for 1 dose.No IV access, insert saline lock prior to the beginning of sedation, infusion, injection of imaging exam. Discontinue saline lock post exam. If Pt. has a central line or IVAD, may access for administration according to line specific nursing protocol. Once exam is complete flush line and de-accessaccording to line specific nursing protocol in the CT contrast administration guidelines link. iv contrast (will be provided with radiology test) CT ABD/PEL -Inject, intravenously, once for 1 dose.No IV access, insert saline lock prior to the beginning of sedation, infusion, injection of imaging exam. Discontinue saline lock post exam. If Pt. has a central line or IVAD, may access for administration according to line specific nursing protocol. Once exam is complete flush line and de-accessaccording to line specific nursing protocol in the CT contrast administration guidelines link. enteric contrast (will be provided with radiology test) For CT ABD/PEL W IVCON Routine order Administer, As Directed One Time Only, via Oral, Rectal, both Oral and Rectal, Enteric Tube, Stoma or Indwelling Catheter, Enteric Contrast as designated per enteric contrast guidelines triamcinolone (KENALOG) 0.025 % cream Apply 1 Application to affected area two times a day. (Patient not taking: Reported on 01/13/2024) Magnesium Oxide 500 mg cap Take 1 capsule by mouth as needed. (Patient not taking: Reported on 02/24/2024) No current facility-administered medications for this visit. Social History Tobacco Use Smoking status: Former Current packs/day: 0.00 Types: Cigarettes Start date: 08/23/1981 Quit date: 08/24/1983 Years since quittin.8 Smokeless tobacco: Never Tobacco comments: in her early 20's, none now Vaping Use Vaping status: Never Used Substance Use Topics Alcohol use: No Drug use: No Family History Problem Relation Age of Onset other (constipation) Mother other (atrial fib) Father Hypertension Maternal Grandmother Aneurysm Maternal Grandmother brain aneurysm age 64 No Known Problems Maternal Grandfather Stroke Paternal Grandmother two light strokes 74 year of age Diabetes Paternal Grandfather Diabetes Other GRANDFATHER No family h/o breast cancer or other cancer. Has a brother. OBSTETRIC RELATED HISTORY: P0 History Breast Feeding: No. Age at of First Child: N/A. Age at Onset of Menses: 9 years of age. Age at Menopause: Early 40s (chemotherapy) years of age. Ovaries: Both intact. Uterus: Intact Exogenous Hormone Use/HRT: No. Oral Contraceptives: Age [age]. Tubal ligation age 31. ROS: Constitutional: No fever. No drenching night sweats. Normal appetite. No unexplained weight loss. No significant fatigue. All systems reviewed on 06/01/2024 with pertinent positives and negatives as outlined in the interval history. PHYSICAL EXAM: Vitals: Blood pressure 107/56, pulse 74, temperature 36.8 C (98.2 F), temperature source Temporal, weight 56.5 kg (124 lb 8 oz), last menstrual period 12/30/2007, SpO2 99%. Well-appearing and in no acute distress. EYES: Sclerae are anicteric bilaterally. CARDIOVASCULAR: Rhythm is regular. BREAST: Not performed. Pt declined today, had exam with surgery team last month. ABDOMEN: The abdomen is nondistended. No tenderness. Extremities: No swelling or edema. SKIN: No rash or jaundice. I have performed the physical exam today (06/01/2024) and have edited the note to correlate with current findings. ASSESSMENT/PLAN: (C50.912, Z17.1) Malignant neoplasm of left breast in female, estrogen receptor negative, unspecified site of breast (HCC) (primary encounter diagnosis) (C50.912, C77.3) Breast cancer 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, left (HCC) (R25.2) Muscle cramp, nocturnal Assessment: -The patient is a 64-year-old female who has a history of estrogen receptor negative right-sided breast cancer at age 31 managed with lumpectomy, axillary lymph node dissection followed by adjuvant chemotherapy (AC x 4?) and radiation. -cTx cN2a Mx ER/VA negative, HER2 negative grade 3 clinical stage IIIC invasive mammary carcinoma of the left breast. -ypT0 pN0 M0. -No family history of breast, gynecologic or other malignancy. -Genetic testing normal. -Cycles 2-4 AC held due to risk of CM and response on MRI following carbo/paclitaxel/pembro. -Tolerated pembrolizumab well. -Rash resolved. -We reviewed typical clinical monitoring for recurrent disease. She would be more comfortable with imaging at least for the first year or two. We will continue to address at follow-up visits. CT 05/25/24 LEANDER - she follows with surgery at [place], (limited records) last OV 1 month ago with planned f/u in a few months. Plan: CBC, CMP, TSH, T4 and OV with Dr Zhu in 4 months. Advised to call with any question or concerns in the meantime. Kala Kaba APRN.CUFF SETTER I spent a total of 20 minutes on the date of the service which included preparing to see the patient, [id number]-nf-hyyr patient care, completing clinical documentation, obtaining and/or reviewing separately obtained history, and counseling and educating the patient/family/caregiver. Portions of this note including HPI, ROS, impression/plan may have been copied forward as to provide important historical information essential in contributing to medical decision making. Documentation has been reviewed and edited as necessary to support clinical decision making for today's visit and to reflect my own independent evaluation of this patient. documented [facility]03-[facility] History of Present illness Narrative* Tarsha Alvarez RT(R) - 05/25/2024 3:00 PM EST Radiology Service Progress Note DATE OF SERVICE: May 25, 2024 TIME: 4:01 PM PATIENT IDENTITY VERIFICATION COMPLETED USING TWO (2) STANDARD IDENTIFIERS: Name and Date of confirmed by patient verbally. FALL SCREENING: Has the patient had 2 falls in the last year or 1 fall with injury or currently using an Ambulatory Assistive Device (Walker, Cane, Wheelchair, Crutches, etc.)? No PATIENT GENDER DATA: Assigned female at . status: : No status:NO. PATIENT RELEVANT IMPLANT DATA REVIEWED: Yes PATIENT PRESENTS WITH AN IMPLANTABLE OR ATTACHED DISPLAY TRIMMER: No ALLERGIES: Reviewed and unchanged CONTRAST ALLERGY: NO. EXAM: CT -CONTRAST INDUCED NEPHROPATHY RISK FACTORS: Patient age > 60 years CREATININE: Creatinine Date Value Ref Range Status 05/25/2024 0.70 0.58 - 0.96 mg/dL Final 02/24/2024 0.77 0.58 - 0.96 mg/dL Final 01/13/2024 0.69 0.58 - 0.96 mg/dL Final Estimated Glomerular Filtration Rate Date Value Ref Range Status 05/25/2024 96 >=60 mL/min/1.73m Final Comment: Estimated Glomerular Filtration Rate (eGFR) is calculated using the 2020 CKD-EPI creatinine equation. This equation utilizes serum creatinine, sex, and age as parameters. The creatinine assay has traceable calibration to isotope dilution- mass spectrometry. Refer to KDIGO guidelines for clinical interpretation. In patients with unstable renal function, e.g. those with acute kidney injury, the eGFRmay not accurately reflect actual GFR. eGFR- Date Value Ref Range Status 12/15/2020 >60 Final P.O.C.T. RESULTS: POC done: Yes, See Lab Tab May 25, 2024 TREATMENT: N/A PERIPHERAL IV DATA: Ambulatory: A peripheral IV was started in the Right antecubital site with a Angio cath: 22 gauge. RADIOLOGY DEPARTMENT: CT; Exam(s) Completed: Chest Abdomen Pelvis SIGNATURE: RT Germaine(R) PATIENT NAME: Carrie Herbert DATE: May 25, 2024 TIME: 4:01 PM documented in this encounterMer[facility]03-03-2025 NotePrem[facility]02-27-2025 Telephone encounter Note* Telephone Encounter - Zabrina Palencia - 05/21/2024 10:27 AM EST Attached orders for CT Zabrina Palencia [facility]02-27-2025 Miscellaneous Notes* Telephone Encounter - Zabrina Palencia - 05/21/2024 10:27 AM EST Attached orders for CT Zabrina Palencia * Telephone Encounter - Brielle Mcbride LPN - 05/21/2024 10:06 AM EST New orders need linked to CT appointments. Brielle Mcbride LPN * Telephone Encounter - Hellen Zhu DO - 05/20/2024 6:35 PM EST Thank you. Filed. Hellen Zhu DO * Telephone Encounter - Bernadette Galan - 05/20/2024 4:02 PM EST Patient is scheduled for CT Scan on 05/25/24. Both chst and abd/pel CT order have been closed or denied due to change in insurance coverage. Patient was only scheduled for abd/pel CT. Please resubmit orders to have linked to scheduled appointment. Please notify schedulers if appointment needs rescheduled (preferably same day and time) in order to have the visit type reflect chest/abd/pel CT vs abd/pel CT. No prior authorization is required for Medicare A and B. documented in this encounterMer[facility]02-27-2025 Telephone encounter Note * Telephone Encounter - Brielle Mcbride LPN - 05/21/2024 10:06 AM EST New orders need linked to CT appointments. Brielle Mcbride LPN [facility]02-26-2025 Telephone encounter Note* Telephone Encounter - Hellen Zhu DO - 05/20/2024 6:35 PM EST Thank you. Filed. Hellen Zhu DO [facility]02-26-2025 Telephone encounter Note* Telephone Encounter - Bernadette Galan - 05/20/2024 4:02 PM EST Patient is scheduled for CT Scan on 05/25/24. Both chst and abd/pel CT order have been closed or denied due to change in insurance coverage. Patient was only scheduled for abd/pel CT. Please resubmit orders to have linked to scheduled appointment. Please notify schedulers if appointment needs rescheduled (preferably same day and time) in order to have the visit type reflect chest/abd/pel CT vs abd/pel CT. No prior authorization is required for Medicare A and B. [facility]02-05-[facility] Evaluation note* Diagnosis Onset Date Resolution Status Admit Date Encounter for insertion of venous access port inactive April 29, 2024 12:53pm [facility] Work Phone: 1(280) 315-815102-03-2025 Telephone encounter Note* Telephone Encounter - Brielle Mcbride LPN - 04/27/2024 3:24 PM EST Order faxed. Patient aware. Brielle Mcbride LPN [facility]02-03-2025 Miscellaneous Notes* Telephone Encounter - Brielle Mcbride LPN - 04/27/2024 3:24 PM EST Order faxed. Patient aware. Brielle Mcbride LPN * Telephone Encounter - Hellen Zhu DO - 04/27/2024 3:07 PM EST Yes. Hellen Zhu DO * Telephone Encounter - Brielle Mcbride LPN - 04/27/2024 2:50 PM EST Is it okay for patient to have port removed? Brielle Mcbride LPN * Telephone Encounter - Thelma Vitale - 04/27/2024 2:48 PM EST Patient called requesting an order to be faxed to Dr. Mccann at [facility] stating okay to have her port removed. documented in this encounterMer[facility]02-03-2025 Telephone encounter Note * Telephone Encounter - Hellen Zhu DO - 04/27/2024 3:07 PM EST Yes. Hellen Zhu DO [facility]02-03-20[facility] Telephone encounter Note* Telephone Encounter - Brielle Mcbride LPN - 04/27/2024 2:50 PM EST Is it okay for patient to have port removed? Brielle Mcbride LPN [facility]02-03-20[facility] Telephone encounter Note* Telephone Encounter - Thelma Vitale - 04/27/2024 2:48 PM EST Patient called requesting an order to be faxed to Dr. Mccann at [facility] stating okay to have her port removed. [facility] Work Phone: 1(529) 735-893612-26-2024 Telephone encounter Note* Telephone Encounter - Brielle Mcbride LPN - 03/19/2024 1:[address] Noland- patient to start a magnesium supplement QHS and try a shot of tonic water nightly. Patient agreeable and verbalized understanding. Brielle Mcbride LPN [facility]12-26-2024 Miscellaneous Notes* Telephone Encounter - Brielle Mcbride LPN - 03/19/2024 1:[address] Noland- patient to start a magnesium supplement QHS and try a shot of tonic water nightly. Patient agreeable and verbalized understanding. Brielle Mcbride LPN * Telephone Encounter - Brielle Mcbride LPN - 03/19/2024 12:41 PM EST Per last OV note 02/24/2024- -Getting nocturnal leg cramps in her right calf. Has been going on for several weeks and occurs nightly. -Advised trial of vitamin K2 200 mcg at bedtime for leg cramps. Patient reports taking Vit K QHS- this was helpful for about a week, then the cramps returned; now has cramps at night and during the day, painful, and has some N/T in toes of right foot. Has tried homero wrap without relief. Last dose of Keytruda 02/25/2024. Brielle Mcbride LPN * Telephone Encounter - Verónica Stern - 03/19/2024 11:10 AM EST Patient called said her calves are cramping getting worse she does have apt this afternoon with Dr Kong with [facility] Please advise documented in this encounterMer[facility]12-26-2024 Telephone encounter Note * Telephone Encounter - Brielle Mcbride LPN - 03/19/2024 12:41 PM EST Per last OV note 02/24/2024- -Getting nocturnal leg cramps in her right calf. Has been going on for several weeks and occurs nightly. -Advised trial of vitamin K2 200 mcg at bedtime for leg cramps. Patient reports taking Vit K QHS- this was helpful for about a week, then the cramps returned; now has cramps at night and during the day, painful, and has some N/T in toes of right foot. Has tried homero wrap without relief. Last dose of Keytruda 02/25/2024. Brielle Mcbride LPN [facility]12-26-20[facility] Telephone encounter Note* Telephone Encounter - Verónica Stern - 03/19/2024 11:10 AM EST Patient called said her calves are cramping getting worse she does have apt this afternoon with Dr Kong with [facility] Please advise [facility] Work Phone: 1(135) 648-654112-03-2024 Miscellaneous Notes* Telephone Encounter - Zabrina Palencia - 02/25/2024 4:16 PM EST Patient stopped and scheduled Zabrina Palencia * Telephone Encounter - Christal Laurent - 02/25/2024 11:40 AM EST Patient is going to stop and yasir it * Telephone Encounter - Zabrina Palencia - 02/24/2024 4:[address] scan in 3 months CBC/CMP/TSH/T4/Cortisol OV [address] and labs documented in this encounterMercy [facility]12-03-2024 Telephone encounter Note * Telephone Encounter - Zabrina Palencia - 02/25/2024 4:16 PM EST Patient stopped and scheduled Zabrina Palencia [facility]12-03-2024 Telephone encounter Note* Telephone Encounter - Christal Laurent - 02/25/2024 11:40 AM EST Patient is going to stop and yasir it [facility]12-02-2024 Telephone encounter Note* Telephone Encounter - Zabrina Palencia - 02/24/2024 4:[address] scan in 3 months CBC/CMP/TSH/T4/Cortisol OV [address] and labs [facility]12-02-2024 [facility]Prem[facility]12-02-[facility] History of Present illness Narrative* Hellen Zhu DO - 02/24/2024 2:29 PM EST Oncologic problem(s): 1) cTx cN2a Mx ER/VA negative, HER2 negative grade 3 clinical stage IIIC invasive mammary carcinomaof the left breast. HPI: The patient is a 63 yo female with PMH as outlined below. 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 Diagnosed with lymphocytic colitis about 3 years ago. Abdominal pain/diarrhea. Treated with probiotic and magnesium supplement. Had MRI brain and PET scan at [facility] on 04/09. MRI reported with LEFT and RIGHT transposed--I dictated correct side below. MRI revealed a 1.4 x 1.0 x 0.8 cm enhancing mass in the upper outer quadrant of the LEFT breast located 2.3 cm from the nipple along the 1:00 axis. The mass is 1.9 cm from the underlying pectoralis and 1.1 cm from the skin surface. No additional abnormal enhancement was observed. There were multiple pathologically enlarged right axillary lymph nodes, at least 3 of which were included within the [id number]-vn-hxrh measuring up to 2.8 cm. No internal mammary lymphadenopathy. Postlumpectomy changes were noted in the upper inner quadrant of the RIGHT breast. There was a 4 to5 mm focus of progressive enhancement along the superior medial aspect of the lumpectomy site whichwas nonspecific. No axillary adenopathy was noted. No internal mammary adenopathy was noted. A second look ultrasound of the focus of progressive enhancement in the left breast was recommended. Ultrasound-guided biopsy of right and left breast lesions on 04/24/2023. Pathology: Left breast at 1 o'clock, 4 cm from the nipple, core biopsy: - INVASIVE DUCTAL CARCINOMA, POORLY DIFFERENTIATED. - Angiolymphatic invasion present. - See comment. Estrogen receptors: NEGATIVE (0) Progesterone receptors: NEGATIVE (0) HER2/patricia: NEGATIVE (0) Right breast at 1 o'clock, 4 cm from the nipple, core biopsy: - Inflamed fibroadipose tissue with hemorrhage, stromal fibroelastosis and fat necrosis. - No malignancy identified. - See comment. Previous therapy: 1) Paclitaxel and carboplatin along with pembrolizumab. 2) AC with pembro x1 cycle. Neutropenic on day 8, cycle #2. Treatment deferred. On return 05/30, still neutropenic. Treatment deferred. Received Neulasta on 06/02. Since last seen underwent lumpectomy with sentinel lymph node biopsy on 10/02/2023. Pathologic CR. Additional margins including deep, inferior, superior, medial, anterior and lateral all negative for carcinoma. 5 sentinel lymph nodes retrieved. All negative for disease. Current therapy: 1) Pembrolizumab. Presents for ongoing oncologic management. Interim history: Rash has completely resolved. No other subjective side effect that she attributes to Keytruda. No symptoms to suggest cardiomyopathy. Getting nocturnal leg cramps in her right calf. Has been going on for several weeks and occurs nightly. PAST MEDICAL HISTORY Diagnosis Date Condyloma acuminatum 03/25/1983 no history of recurrance since treatment COVID-19 09/2021 Lymphocytic colitis Malignant neoplasm of left breast in female, estrogen receptor negative (HCC) 04/12/2023 Malignant neoplasm of upper-outer quadrant of female breast (HCC) 05/24/1991 breast cancer treated with chemo and radiation Mass of axilla, left 03/21/2023 Mental disorder Rectal bleeding Unspecified constipation 03/25/2004 [...] torn retina repair REMV CATARACT EXTRACAP,INSERT LENS US BREAST NEEDLE CORE BIOPSY LT Left 02/2023 LN bx ALLERGIES Allergen Reactions Bactrim [Sulfametho* GI Upset Current Outpatient Medications Medication Sig acetaminophen (TYLENOL) 325 mg tablet Take 650 mg by mouth every 6 hours as needed. Lactobacillus acidophilus (PROBIOTIC) 10 billion cell cap Take 1 capsule by mouth once daily. lidocaine-prilocaine (EMLA) 2.5-2.5 % cream Apply 60 minutes prior to accessing port. cimetidine (TAGAMET ORAL) Take by mouth as needed. cholecalciferol, vitamin D3, (VITAMIN D3 ORAL) Take 1,000 Units by mouth once daily. CALCIUM ORAL Take 800 mg by mouth once daily. amino acids/multivitamin (MULTIVITAMIN-AMINO ACIDS ORAL) Take 1 tablet by mouth once daily. No amino acids PAXIL 30 MG TAB Take 30 mg by mouth once daily. triamcinolone (KENALOG) 0.025 % cream Apply 1 Application to affected area two times a day. (Patient not taking: Reported on 01/13/2024) Magnesium Oxide 500 mg cap Take 1 capsule by mouth as needed. (Patient not taking: Reported on 02/24/2024) No current facility-administered medications for this visit. Social History Tobacco Use Smoking status: Former Current packs/day: 0.00 Types: Cigarettes Start date: 08/23/1981 Quit date: 08/24/1983 Years since quittin.5 Smokeless tobacco: Never Tobacco comments: in her early 20's, none now Vaping Use Vaping status: Never Used Substance Use Topics Alcohol use: No Drug use: No Family History Problem Relation Age of Onset other (constipation) Mother other (atrial fib) Father Hypertension Maternal Grandmother Aneurysm Maternal Grandmother brain aneurysm age 64 No Known Problems Maternal Grandfather Stroke Paternal Grandmother two light strokes 74 year of age Diabetes Paternal Grandfather Diabetes Other GRANDFATHER No family h/o breast cancer or other cancer. Has a brother. OBSTETRIC RELATED HISTORY: P0 History Breast Feeding: No. Age at of First Child: N/A. Age at Onset of Menses: 9 years of age. Age at Menopause: Early 40s (chemotherapy) years of age. Ovaries: Both intact. Uterus: Intact Exogenous Hormone Use/HRT: No. Oral Contraceptives: Age 19-32. Tubal ligation age 31. ROS: Constitutional: No fever. No drenching night sweats. Normal appetite. No unexplained weight loss. No significant fatigue. Neuro: No recent AMARO, vertigo, dizziness or imbalance. No symptoms of sensory neuropathy. HEENT: No recent change in voice, vision or hearing. Resp: No cough, wheeze of hemoptysis. No shortness of breath at rest. No ORELLANA. CVS: No exertional chest pain, PND or orthopnea. No extremity swelling/edema. No symptoms of claudication. No painful or tender varicose veins. GI: No dysphagia or odynophagia. No reflux, n/v, change in bowel habits. No abdominal pain, bloating or distension. No black or bloody stools. : No dysuria or gross hematuria. No symptoms of bladder outlet obstruction. Endo: No hot flashes. No polyuria or polydipsia. No heat or cold intolerance. Musculoskeletal: See above. Derm: See above. Heme: No unusual bleeding and unexplained bruising. Psych: Normal mood. PHYSICAL EXAM: Vitals: Blood pressure 103/60, pulse 80, temperature 37.2 C (99 F), weight 54.9 kg (121 lb), last menstrual period 12/30/2007, SpO2 97%. Well-appearing and in no acute distress. EYES: Sclerae are anicteric bilaterally. CARDIOVASCULAR: Rhythm is regular. BREAST: Not performed. ABDOMEN: The abdomen is nondistended. No splenomegaly or hepatomegaly. No tenderness. Extremities: No swelling or edema. SKIN: No rash or jaundice. ASSESSMENT/PLAN: (C50.912, Z17.1) Malignant neoplasm of left breast in female, estrogen receptor negative, unspecified site of breast (HCC) (primary encounter diagnosis) (C50.912, C77.3) Breast cancer 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, left (HCC) (R25.2) Muscle cramp, nocturnal Assessment: -The patient is a 63-year-old female who has a history of estrogen receptor negative right-sided breast cancer at age 31 managed with lumpectomy, axillary lymph node dissection followed by adjuvant chemotherapy (AC x 4?) and radiation. -cTx cN2a Mx ER/VA negative, HER2 negative grade 3 clinical stage IIIC invasive mammary carcinoma of the left breast. -ypT0 pN0 M0. -No family history of breast, gynecologic or other malignancy. -Genetic testing normal. -Cycles 2-4 AC held due to risk of CM and response on MRI following carbo/paclitaxel/pembro. -Tolerating pembrolizumab well. -Rash resolved. -Again discussed typical clinical monitoring for recurrent disease. She would be more comfortable with imaging at least for the first year or two. We will continue to address at follow-up visits. -New problem of leg cramping. Unclear if related to Keytruda or not. Will await chemistry panel. Plan: -Okay for last dose pembrolizumab. -Advised trial of vitamin K2 200 mcg at bedtime for leg cramps. -Plan labs/CTs then OV in about 3-4 months. Portions of this documentation were copied and pasted from my previous office visit note dated 12/02/2023 in order to provide a cohesive continuity of the history. The note has been reviewed and editedand updated as necessary. Hellen Zhu DO documented in this encounterMer[facility]10-30-2024 NotePremier [facility]10-30-2024 History of Present illness Narrative* Melony Davis MD - 01/22/2024 2:43 PM EDT AMBULATORY TELEPHONE VISIT Carrie Herbert has consented to this telephone encounter. Persons Present: patient Chief Complaint/Reason: Four week follow-up after radiation treatment. HPI: 1. Clinical stage IIIC, cT1 cN2a, invasive mammary carcinoma of the left breast, s/p neoadjuvant chemotherapy and pembro, s/p left breast lumpectomy and sentinel node biopsy on 10/02/23. Completepathologic response with ypT0 and ypN0. s/p radiation treatment finished on 12/25/23. It's ER negative (<1%), VA negative (<1%) and Her2 1+. She is on maintenance Keytruda. 2. h/o right breast cancer 30 years ago treated with right breast lumpectomy, radiation treatment and chemotherapy. She is doing well without any specific new complaints. She denies any pain or discomfort of the left breast. She reports that redness of the left breast skin almost resolved. She denies any skin breakdown. Data Reviewed: None. Assessment: She is recovering well from acute radiation dermatitis. Plan: She is on maintenance Keytruda now and is regularly followed with medical oncology. I will see her as needed. Total Time Spent: 5 minutes Melony Davis MD documented in this encounterMercy Health Anderson Hospital10-22-2024 NoteHNO ID: [id number] Author: LORY ROBLES RN Service: ? Author Type: Registered Nurse Type: Progress Notes Filed: 01/14/2024 15:12 Note Text: Pt. Was seen by Kala Kaba CNP yesterday. Pt states no changes and verbally agrees to treatment.[facility]10-22-2024 History of Present illness Narrative* Lory Robles RN - 01/14/2024 2:27 PM EDT Pt. Was seen by Klaa Kaba CNP yesterday. Pt states no changes and verbally agrees to treatment. documented in this encounterMercy Health [facility] Hospital10-21-2024 History of Present illness Narrative* Kala Kaba - 01/13/2024 1:30 PM EDT Carrie Hensley Piedad 1960 Oncologic problem(s): 1) cTx cN2a Mx ER/VA negative, HER2 negative grade 3 clinical stage IIIC invasive mammary carcinomaof the left breast. HPI: The patient is a 63 yo female with PMH as outlined below. 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 Diagnosed with lymphocytic colitis about 3 years ago. Abdominal pain/diarrhea. Treated with probiotic and magnesium supplement. Had MRI brain and PET scan at [facility] on 04/09. MRI reported with LEFT and RIGHT transposed--I dictated correct side below. MRI revealed a 1.4 x 1.0 x 0.8 cm enhancing mass in the upper outer quadrant of the LEFT breast located 2.3 cm from the nipple along the 1:00 axis. The mass is 1.9 cm from the underlying pectoralis and 1.1 cm from the skin surface. No additional abnormal enhancement was observed. There were multiple pathologically enlarged right axillary lymph nodes, at least 3 of which were included within the [id number] measuring up to 2.8 cm. No internal mammary lymphadenopathy. Postlumpectomy changes were noted in the upper inner quadrant of the RIGHT breast. There was a 4 to5 mm focus of progressive enhancement along the superior medial aspect of the lumpectomy site whichwas nonspecific. No axillary adenopathy was noted. No internal mammary adenopathy was noted. A second look ultrasound of the focus of progressive enhancement in the left breast was recommended. Ultrasound-guided biopsy of right and left breast lesions on 04/24/2023. Pathology: Left breast at 1 o'clock, 4 cm from the nipple, core biopsy: - INVASIVE DUCTAL CARCINOMA, POORLY DIFFERENTIATED. - Angiolymphatic invasion present. - See comment. Estrogen receptors: NEGATIVE (0) Progesterone receptors: NEGATIVE (0) HER2/patricia: NEGATIVE (0) Right breast at 1 o'clock, 4 cm from the nipple, core biopsy: - Inflamed fibroadipose tissue with hemorrhage, stromal fibroelastosis and fat necrosis. - No malignancy identified. - See comment. Previous therapy: 1) Paclitaxel and carboplatin along with pembrolizumab. 2) AC with pembro x1 cycle. Neutropenic on day 8, cycle #2. Treatment deferred. On return 05/30, still neutropenic. Treatment deferred. Received Neulasta on 06/02. Since last seen underwent lumpectomy with sentinel lymph node biopsy on 10/02/2023. Pathologic CR. Additional margins including deep, inferior, superior, medial, anterior and lateral all negative for carcinoma. 5 sentinel lymph nodes retrieved. All negative for disease. Current therapy: 1) Pembrolizumab. Presents for ongoing oncologic management. Interim history: Ms. Herbert presents today for follow up prior to pembro. She reports feeling well. Denies any new issues. Rash has resolved. Denies new aches or pains. No SOB, CP, or palpitations. No AMARO, dizziness, or changes in vision. Denies N/V/C/D. No changes in bowel or bladder habits. No rash or skin changes. Denies bleeding or bruising. PAST MEDICAL HISTORY Diagnosis Date Condyloma acuminatum 03/25/1983 no history of recurrance since treatment COVID-19 09/2021 Lymphocytic colitis Malignant neoplasm of left breast in female, estrogen receptor negative (HCC) 04/12/2023 Malignant neoplasm of upper-outer quadrant of female breast (HCC) 05/24/1991 breast cancer treated with chemo and radiation Mass of axilla, left 03/21/2023 Mental disorder Rectal bleeding Unspecified constipation 03/25/2004 [...] torn retina repair REMV CATARACT EXTRACAP,INSERT LENS US BREAST NEEDLE CORE BIOPSY LT Left 02/2023 LN bx ALLERGIES Allergen Reactions Bactrim [Sulfametho* GI Upset Current Outpatient Medications Medication Sig acetaminophen (TYLENOL) 325 mg tablet Take 650 mg by mouth every 6 hours as needed. Magnesium Oxide 500 mg cap Take 1 capsule by mouth as needed. Lactobacillus acidophilus (PROBIOTIC) 10 billion cell cap Take 1 capsule by mouth once daily. lidocaine-prilocaine (EMLA) 2.5-2.5 % cream Apply 60 minutes prior to accessing port. cimetidine (TAGAMET ORAL) Take by mouth as needed. cholecalciferol, vitamin D3, (VITAMIN D3 ORAL) Take 1,000 Units by mouth once daily. CALCIUM ORAL Take 800 mg by mouth once daily. amino acids/multivitamin (MULTIVITAMIN-AMINO ACIDS ORAL) Take 1 tablet by mouth once daily. No amino acids PAXIL 30 MG TAB Take 30 mg by mouth once daily. triamcinolone (KENALOG) 0.025 % cream Apply 1 Application to affected area two times a day. (Patient not taking: Reported on 01/13/2024) No current facility-administered medications for this visit. Social History Tobacco Use Smoking status: Former Current packs/day: 0.00 Types: Cigarettes Start date: 08/23/1981 Quit date: 08/24/1983 Years since quittin.4 Smokeless tobacco: Never Tobacco comments: in her early 20's, none now Vaping Use Vaping status: Never Used Substance Use Topics Alcohol use: No Drug use: No Family History Problem Relation Age of Onset other (constipation) Mother other (atrial fib) Father Hypertension Maternal Grandmother Aneurysm Maternal Grandmother brain aneurysm age 64 No Known Problems Maternal Grandfather Stroke Paternal Grandmother two light strokes 74 year of age Diabetes Paternal Grandfather Diabetes Other GRANDFATHER No family h/o breast cancer or other cancer. Has a brother. OBSTETRIC RELATED HISTORY: P0 History Breast Feeding: No. Age at of First Child: N/A. Age at Onset of Menses: 9 years of age. Age at Menopause: Early 40s (chemotherapy) years of age. Ovaries: Both intact. Uterus: Intact Exogenous Hormone Use/HRT: No. Oral Contraceptives: Age 19-32. Tubal ligation age 31. ROS: Constitutional: No fever. No drenching night sweats. Normal appetite. No unexplained weight loss. No significant fatigue. All systems reviewed on 01/13/2024 with pertinent positives and negatives as outlined in the interval history. PHYSICAL EXAM: Vitals: Blood pressure 111/64, pulse 62, temperature 36.4 C (97.5 F), temperature source Temporal, weight 55.8 kg (123 lb), last menstrual period 12/30/2007, SpO2 100%. Well-appearing and in no acute distress. EYES: Sclerae are anicteric bilaterally. RESPIRATORY: Inspiratory breath sounds are of normal intensity in all zambrano. CARDIOVASCULAR: Rhythm is regular. Normal intensity S1/S2. There is no gallop or murmur. BREAST: Not performed. ABDOMEN: The abdomen is nondistended. No splenomegaly or hepatomegaly. No tenderness. Extremities: No swelling or edema. SKIN: No Jaundice, rash or ulceration ASSESSMENT/PLAN: (C77.3) 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) (primary encounter diagnosis) (Z85.3) History of right breast cancer Assessment: -The patient is a 63-year-old female who has a history of estrogen receptor negative right-sided breast cancer at age 31 managed with lumpectomy, axillary lymph node dissection followed by adjuvant chemotherapy (AC x 4?) and radiation. -cTx cN2a Mx ER/VA negative, HER2 negative grade 3 clinical stage IIIC invasive mammary carcinoma of the left breast. -ypT0 pN0 M0. -No family history of breast, gynecologic or other malignancy. -Genetic testing normal. -Cycles 2-4 AC held due to risk of CM and response on MRI following carbo/paclitaxel/pembro. -Tolerating pembrolizumab well. -Again discussed typical clinical monitoring for recurrent disease. She would be more comfortable with imaging at least for the first year or two. We will continue to address at follow-up visits. Plan: -Continue pembrolizumab, tolerating well -continue Kenalog 0.1% lotion. As needed Kala Kaba APRN.CUFF SETTER I spent a total of 20 minutes on the date of the service which included preparing to see the patient, [id number] patient care, completing clinical documentation, obtaining and/or reviewing separately obtained history, and counseling and educating the patient/family/caregiver. Portions of this note including HPI, ROS, impression/plan may have been copied forward as to provide important historical information essential in contributing to medical decision making. Documentation has been reviewed and edited as necessary to support clinical decision making for today's visit and to reflect my own independent evaluation of this patient. documented in this encounterMer[facility]10-21-2024 NotePrem[facility]10-02-2024 History of Present illness Narrative* Lory Robles RN - 12/25/2023 2:41 PM EDT Written discharge instructions given and reviewed with patient. Patient verbalizes understanding. Encouraged to call with any questions or concerns. Instruction for follow up appointment given by . documented in this encounterMercy Health [facility] Hospital10-02-2024 History of Present illness Narrative* Melony Davis MD - 12/25/2023 12:00 AM EDT CARRIE HERBERT [id number] : 1960 12/25/2023 [facility] Department of Radiation Oncology RADIATION ONCOLOGY - COMPLETION NOTE DATE OF SIMULATION: 11/04/23 DATES OF TREATMENT: 11/11/23 - 12/25/23 UNIT: [id number]_[email or web address] AREA TREATED: Left breast/SC/axilla DISEASE: 1. Clinical stage IIIC, cT1 cN2a, invasive mammary carcinoma of the left breast, s/p neoadjuvant chemotherapy and pembro, s/p left breast lumpectomy and sentinel node biopsy on 10/02/23. Complete pathologic response with ypT0 and ypN0. It's ER negative (<1%), VA negative (<1%) and Her2 1+. She is on maintenance Keytruda. 2. h/o right breast cancer 30 years ago treated with right breast lumpectomy, radiation treatment and chemotherapy. DELIVERED DOSE: 6000 cGy in 30 fractions. (5000 cGy in 25 fractions treating the left supraclav/axilla to the 100% isodose line with 6&10MV and 2 zambrano and the left breast to the 98% isodose line with 6MV and 2 zambrano. That's followed by 1000 cGy in 5 fractions boost to the left breast tumor bed treating to the 90% isodose line with 6 and 9 MeV electron and two en face zambrano.) ELAPSED TIME: 44 days. TOLERANCE/ RESPONSE: She has pruritus controlled with triamcinolone cream. Brisk erythema of the left breast. No desquamation. REMARKS: She tolerated radiation treatment well. Four week follow-up with me. Staff Physician MELONY DAVIS M.D. / 42:10 PM Electronically Signed cc: Ken Ricci) [address] [facility] [address] [place] [address] Hellen Zhu [address] [facility] [id number] documented in this encounterMercy Health Anderson Hospital09-30-2024 History of Present illness Narrative* Melony Davis MD - 12/23/2023 2:42 PM EDT Radiation Oncology - On Treatment Review (OTR) Note PATIENT NAME: Carrie Herbert PATIENT DIAGNOSIS: 1. Clinical stage IIIC, cT1 cN2a, invasive mammary carcinoma of the left breast, s/p neoadjuvant chemotherapy and pembro, s/p left breast lumpectomy and sentinel node biopsy on 10/02/23. Complete pathologic response with ypT0 and ypN0. It's ER negative (<1%), VA negative (<1%) and Her2 1+. She is on maintenance Keytruda. 2. h/o right breast cancer 30 years ago treated with right breast lumpectomy, radiation treatment and chemotherapy. COURSE: adjuvant AREA TREATED: Left breast/SC/axilla CURRENT DOSE: 5600 cGy in 28 fx PLANNED DOSE: 6000 cGy in 30 fx Status: Post-menopausal SUBJECTIVE: She has pruritus controlled with triamcinolone cream. She feels that it's better this week and using the steroid cream less often now. EXAM: KPS: 90 General Appearance: Alert and oriented. No acute distress. Radiation dermatitis: Brisk erythema. No desquamation. IMAGING/LAB RESULTS: None Treatment chart checked: Yes Patient treatment site reviewed and verified:Yes Port films reviewed and current:Yes Medications started: None ASSESSMENT/PLAN: Clinically stable. Toxicity within expected parameters. Continue radiation treatment as planned. Melony Davis MD documented in this encounterMercy Health Anderson Hospital09-30-2024 Nurse Note* Debra Thomas RN - 12/23/2023 2:41 PM EDT Radiation Therapy - Nursing Note (OTV) PATIENT NAME: Carrie Herbert PATIENT December 23, 2023 [facility] FACILITY/LOCATION: [facility] NOTE TYPE: BREAST Subjective Data No c/o Additional Data Do you want to see a Psychology Clinician? No Status: Post-menopausal. Stress Scale: On a scale of 0 to 10, what number best describes how much distress you have experienced in the past week?(0 being no distress and 10 being extreme distress) 0 Social work notified: no Nursing Assessment Fatigue: increased fatigue over baseline but not altering normal activities Appetite: good Nutritional Intake: Regular oral intake. Weight Gain/Loss: No Ambulatory weight history: Last 6 Encounter Wt Readings: Date: Wt: 12/02/2023 54.9 kg (121 lb) 12/02/2023 55.1 kg (121 lb 8 oz) 11/19/2023 55.1 kg (121 lb 8 oz) 10/22/2023 53.8 kg (118 lb 8 oz) 10/18/2023 54 kg (119 lb) 08/29/2023 54.9 kg (121 lb 0.5 oz) Nausea:None Vomiting: None Bowel Function: normal bowel movements Erythema/Hyperpigmentation:mild Desquamation:none Rash:moderate Skin Care: Aquaphor Skin Sensation: moderate itching and mild burning Focused Assessment BREAST: Lymphedema Assessment: Is the patient noting any swelling? No. SIGNED by: Debra Thomas RN [facility]09-30-[facility] Nurse Note* Debra Thomas RN - 12/23/2023 2:41 PM EDT Radiation Therapy - Nursing Note (OTV) PATIENT NAME: Carrie Herbert PATIENT December 23, 2023 [facility] FACILITY/LOCATION: [facility] NOTE TYPE: BREAST Subjective Data No c/o Additional Data Do you want to see a Psychology Clinician? No Status: Post-menopausal. Stress Scale: On a scale of 0 to 10, what number best describes how much distress you have experienced in the past week?(0 being no distress and 10 being extreme distress) 0 Social work notified: no Nursing Assessment Fatigue: increased fatigue over baseline but not altering normal activities Appetite: good Nutritional Intake: Regular oral intake. Weight Gain/Loss: No Ambulatory weight history: Last 6 Encounter Wt Readings: Date: Wt: 12/02/2023 54.9 kg (121 lb) 12/02/2023 55.1 kg (121 lb 8 oz) 11/19/2023 55.1 kg (121 lb 8 oz) 10/22/2023 53.8 kg (118 lb 8 oz) 10/18/2023 54 kg (119 lb) 08/29/2023 54.9 kg (121 lb 0.5 oz) Nausea:None Vomiting: None Bowel Function: normal bowel movements Erythema/Hyperpigmentation:mild Desquamation:none Rash:moderate Skin Care: Aquaphor Skin Sensation: moderate itching and mild burning Focused Assessment BREAST: Lymphedema Assessment: Is the patient noting any swelling? No. SIGNED by: Debra Thomas RN documented in this encounterMercy Health [facility] Hospital09-24-2024 Nurse Note* Stacie Roger RN - 12/17/2023 2:52 PM EDT Radiation Therapy - Nursing Note (OTV) PATIENT NAME: Carrie Herbert PATIENT December 17, 2023 [facility] FACILITY/LOCATION: [place] NURSING NOTE TYPE: BREAST Subjective Data itching and redness increased on chest and back, c/o slighing feeling but not pain Additional Data Do you want to see a Psychology Clinician? No Status: Post-menopausal. Stress Scale: On a scale of 0 to 10, what number best describes how much distress you have experienced in the past week?(0 being no distress and 10 being extreme distress) 0 Social work notified: Pt denied need to see dialysis social worker at this time. Nursing Assessment Fatigue: none Appetite: good Nutritional Intake: Regular oral intake. Weight Gain/Loss: Not applicable Ambulatory weight history: Last 6 Encounter Wt Readings: Date: Wt: 12/02/2023 54.9 kg (121 lb) 12/02/2023 55.1 kg (121 lb 8 oz) 11/19/2023 55.1 kg (121 lb 8 oz) 10/22/2023 53.8 kg (118 lb 8 oz) 10/18/2023 54 kg (119 lb) 08/29/2023 54.9 kg (121 lb 0.5 oz) Nausea:None Vomiting: None Bowel Function: constipation 0 - bowel movement every day but not as much as usual Erythema/Hyperpigmentation:severe on chest ,moderate on back Desquamation:none Rash:moderate Skin Care: Aquaphor and Other: Rx Kenalog l;otion Skin Sensation: severe itching Focused Assessment BREAST: Not applicable. SIGNED by: Stacie Roger RN [facility] Nurse Note* Stacie Roger RN - 12/17/2023 2:52 PM EDT Radiation Therapy - Nursing Note (OTV) PATIENT NAME: Carrie Herbert PATIENT December 17, 2023 [facility] FACILITY/LOCATION: [place] NURSING NOTE TYPE: BREAST Subjective Data itching and redness increased on chest and back, c/o slighing feeling but not pain Additional Data Do you want to see a Psychology Clinician? No Status: Post-menopausal. Stress Scale: On a scale of 0 to 10, what number best describes how much distress you have experienced in the past week?(0 being no distress and 10 being extreme distress) 0 Social work notified: Pt denied need to see dialysis social worker at this time. Nursing Assessment Fatigue: none Appetite: good Nutritional Intake: Regular oral intake. Weight Gain/Loss: Not applicable Ambulatory weight history: Last 6 Encounter Wt Readings: Date: Wt: 12/02/2023 54.9 kg (121 lb) 12/02/2023 55.1 kg (121 lb 8 oz) 11/19/2023 55.1 kg (121 lb 8 oz) 10/22/2023 53.8 kg (118 lb 8 oz) 10/18/2023 54 kg (119 lb) 08/29/2023 54.9 kg (121 lb 0.5 oz) Nausea:None Vomiting: None Bowel Function: constipation 0 - bowel movement every day but not as much as usual Erythema/Hyperpigmentation:severe on chest ,moderate on back Desquamation:none Rash:moderate Skin Care: Aquaphor and Other: Rx Kenalog l;otion Skin Sensation: severe itching Focused Assessment BREAST: Not applicable. SIGNED by: Stacie Roger, RN documented in this encounterMer[facility]09-24-[facility]24 History of Present illness Narrative* Melony Davis MD - 12/17/2023 2:42 PM EDT Radiation Oncology - On Treatment Review (OTR) Note PATIENT NAME: Carrie Herbert PATIENT DIAGNOSIS: 1. Clinical stage IIIC, cT1 cN2a, invasive mammary carcinoma of the left breast, s/p neoadjuvant chemotherapy and pembro, s/p left breast lumpectomy and sentinel node biopsy on 10/02/23. Complete pathologic response with ypT0 and ypN0. It's ER negative (<1%), VA negative (<1%) and Her2 1+. She is on maintenance Keytruda. 2. h/o right breast cancer 30 years ago treated with right breast lumpectomy, radiation treatment and chemotherapy. COURSE: adjuvant AREA TREATED: Left breast/SC/axilla CURRENT DOSE: 5000 cGy in 25 fx PLANNED DOSE: 6000 cGy in 30 fx Status: Post-menopausal SUBJECTIVE: She has pruritus controlled with triamcinolone cream. EXAM: KPS: 90 General Appearance: Alert and oriented. No acute distress. Radiation dermatitis: Brisk erythema. IMAGING/LAB RESULTS: None Treatment chart checked: Yes Patient treatment site reviewed and verified:Yes Port films reviewed and current:Yes Medications started: None ASSESSMENT/PLAN: Clinically stable. Toxicity within expected parameters. Continue radiation treatment as planned. Melony Davis MD documented in this encounterMer[facility]09-24-2024 Telephone encounter Note * Telephone Encounter - Keila Mace - 12/17/2023 9:57 AM EDT Izaiah Lay called with the following information: Patient has been approved for imaging guidance for localization for radiation treatment, Special radiation treatment, and delivery of simple radiation treatment. All has been scheduled with [facility] in [place] and Valid from 12/17-03/16/24. Auth # [id number] Keila Mace [facility]09-24-[facility]24 Miscellaneous Notes* Telephone Encounter - Keila Mace - 12/17/2023 9:57 AM EDT Izaiah Lay called with the following information: Patient has been approved for imaging guidance for localization for radiation treatment, Special radiation treatment, and delivery of simple radiation treatment. All has been scheduled with [facility] in [place] and Valid from 12/17-03/16/24. Auth # [id number] Keila Mace documented in this encounterMercy Health [facility] Hospital09-17-2024 Nurse Note* Stacie Roger RN - 12/10/2023 2:42 PM EDT Radiation Therapy - Nursing Note (OTV) PATIENT NAME: Carrie Herbert PATIENT December 10, 2023 [facility] FACILITY/LOCATION: [place] NURSING NOTE TYPE: BREAST Subjective Data rash continues, using kenalog lotion Additional Data Do you want to see a Psychology Clinician? No Status: Post-menopausal. Stress Scale: On a scale of 0 to 10, what number best describes how much distress you have experienced in the past week?(0 being no distress and 10 being extreme distress) 0 Social work notified: Pt denied need to see dialysis social worker at this time. Nursing Assessment Fatigue: none Appetite: good Nutritional Intake: Regular oral intake. Weight Gain/Loss: Not applicable Ambulatory weight history: Last 6 Encounter Wt Readings: Date: Wt: 12/02/2023 54.9 kg (121 lb) 12/02/2023 55.1 kg (121 lb 8 oz) 11/19/2023 55.1 kg (121 lb 8 oz) 10/22/2023 53.8 kg (118 lb 8 oz) 10/18/2023 54 kg (119 lb) 08/29/2023 54.9 kg (121 lb 0.5 oz) Nausea:None Vomiting: None Bowel Function: normal bowel movements Erythema/Hyperpigmentation:mild around scars Desquamation:none Rash:severe- moderate, on chest and upper left back Skin Care: Aquaphor Skin Sensation: moderate itching Focused Assessment BREAST: Not applicable. SIGNED by: Stacie Roger RN [facility]09-[facility] Nurse Note* Stacie Roger RN - 12/10/2023 2:42 PM EDT Radiation Therapy - Nursing Note (OTV) PATIENT NAME: Carrie Herbert PATIENT December 10, 2023 [facility] FACILITY/LOCATION: [facility] NOTE TYPE: BREAST Subjective Data rash continues, using kenalog lotion Additional Data Do you want to see a Psychology Clinician? No Status: Post-menopausal. Stress Scale: On a scale of 0 to 10, what number best describes how much distress you have experienced in the past week?(0 being no distress and 10 being extreme distress) 0 Social work notified: Pt denied need to see dialysis social worker at this time. Nursing Assessment Fatigue: none Appetite: good Nutritional Intake: Regular oral intake. Weight Gain/Loss: Not applicable Ambulatory weight history: Last 6 Encounter Wt Readings: Date: Wt: 12/02/2023 54.9 kg (121 lb) 12/02/2023 55.1 kg (121 lb 8 oz) 11/19/2023 55.1 kg (121 lb 8 oz) 10/22/2023 53.8 kg (118 lb 8 oz) 10/18/2023 54 kg (119 lb) 08/29/2023 54.9 kg (121 lb 0.5 oz) Nausea:None Vomiting: None Bowel Function: normal bowel movements Erythema/Hyperpigmentation:mild around scars Desquamation:none Rash:severe- moderate, on chest and upper left back Skin Care: Aquaphor Skin Sensation: moderate itching Focused Assessment BREAST: Not applicable. SIGNED by: Stacie Roger RN documented in this encounterMercy Health [facility]09-17-2024 History of Present illness Narrative* Melony Davis MD - 12/10/2023 2:30 PM EDT Radiation Oncology - On Treatment Review (OTR) Note PATIENT NAME: Carrie Herbert PATIENT DIAGNOSIS: 1. Clinical stage IIIC, cT1 cN2a, invasive mammary carcinoma of the left breast, s/p neoadjuvant chemotherapy and pembro, s/p left breast lumpectomy and sentinel node biopsy on 10/02/23. Complete pathologic response with ypT0 and ypN0. It's ER negative (<1%), VA negative (<1%) and Her2 1+. She is on maintenance Keytruda. 2. h/o right breast cancer 30 years ago treated with right breast lumpectomy, radiation treatment and chemotherapy. COURSE: adjuvant AREA TREATED: Left breast/SC/axilla CURRENT DOSE: 4000 cGy in 20 fx PLANNED DOSE: 6000 cGy in 30 fx Status: Post-menopausal SUBJECTIVE: She has pruritus controlled with triamcinolone cream. EXAM: KPS: 90 General Appearance: Alert and oriented. No acute distress. Radiation dermatitis: Moderate erythema. IMAGING/LAB RESULTS: None Treatment chart checked: Yes Patient treatment site reviewed and verified:Yes Port films reviewed and current:Yes Medications started: None ASSESSMENT/PLAN: Clinically stable. Toxicity within expected parameters. Continue radiation treatment as planned. Melony Davis MD documented in this encounterMercy [facility]09-10-2024 History of Present illness Narrative* Melony Davis MD - 12/03/2023 2:34 PM EDT Radiation Oncology - On Treatment Review (OTR) Note PATIENT NAME: Carrie Herbert PATIENT DIAGNOSIS: 1. Clinical stage IIIC, cT1 cN2a, invasive mammary carcinoma of the left breast, s/p neoadjuvant chemotherapy and pembro, s/p left breast lumpectomy and sentinel node biopsy on 10/02/23. Complete pathologic response with ypT0 and ypN0. It's ER negative (<1%), VA negative (<1%) and Her2 1+. 2. h/o right breast cancer 30 years ago treated with right breast lumpectomy, radiation treatment and chemotherapy. COURSE: adjuvant AREA TREATED: Left breast/SC/axilla CURRENT DOSE: 3000 cGy in 15 fx PLANNED DOSE: 6000 cGy in 30 fx Status: Post-menopausal SUBJECTIVE: She has pruritus controlled with triamcinolone cream. EXAM: KPS: 90 General Appearance: Alert and oriented. No acute distress. Radiation dermatitis: Moderate erythema. IMAGING/LAB RESULTS: None Treatment chart checked: Yes Patient treatment site reviewed and verified:Yes Port films reviewed and current:Yes Medications started: None ASSESSMENT/PLAN: Clinically stable. Toxicity within expected parameters. Continue radiation treatment as planned. Melony Davis MD documented in this encounterMercy [facility]09-10-2024 Nurse Note* Stacie Roger RN - 12/03/2023 2:33 PM EDT Radiation Therapy - Nursing Note (OTV) PATIENT NAME: Carrie Herbert PATIENT December 03, 2023 [facility] FACILITY/LOCATION: [place] NURSING NOTE TYPE: BREAST Subjective Data c/o rash on chest and small upper back left side Additional Data Do you want to see a Psychology Clinician? No Status: Post-menopausal. Stress Scale: On a scale of 0 to 10, what number best describes how much distress you have experienced in the past week?(0 being no distress and 10 being extreme distress) 0 Social work notified: Pt denied need to see dialysis social worker at this time. Nursing Assessment Fatigue: none Appetite: good Nutritional Intake: Regular oral intake. Weight Gain/Loss: No Ambulatory weight history: Last 6 Encounter Wt Readings: Date: Wt: 12/02/2023 54.9 kg (121 lb) 12/02/2023 55.1 kg (121 lb 8 oz) 11/19/2023 55.1 kg (121 lb 8 oz) 10/22/2023 53.8 kg (118 lb 8 oz) 10/18/2023 54 kg (119 lb) 08/29/2023 54.9 kg (121 lb 0.5 oz) Nausea:None Vomiting: None Bowel Function: normal bowel movements Erythema/Hyperpigmentation:mild on both iincisons Desquamation:none Rash:moderate Skin Care: Aquaphor and Other: kenalog lotion Skin Sensation: moderate itching Focused Assessment BREAST: Not applicable. SIGNED by: Stacie Roger RN [facility]09-[facility] Nurse Note* Stacie Roger RN - 12/03/2023 2:33 PM EDT Radiation Therapy - Nursing Note (OTV) PATIENT NAME: Carrie Herbert PATIENT December 03, 2023 [facility] FACILITY/LOCATION: [place] NURSING NOTE TYPE: BREAST Subjective Data c/o rash on chest and small upper back left side Additional Data Do you want to see a Psychology Clinician? No Status: Post-menopausal. Stress Scale: On a scale of 0 to 10, what number best describes how much distress you have experienced in the past week?(0 being no distress and 10 being extreme distress) 0 Social work notified: Pt denied need to see dialysis social worker at this time. Nursing Assessment Fatigue: none Appetite: good Nutritional Intake: Regular oral intake. Weight Gain/Loss: No Ambulatory weight history: Last 6 Encounter Wt Readings: Date: Wt: 12/02/2023 54.9 kg (121 lb) 12/02/2023 55.1 kg (121 lb 8 oz) 11/19/2023 55.1 kg (121 lb 8 oz) 10/22/2023 53.8 kg (118 lb 8 oz) 10/18/2023 54 kg (119 lb) 08/29/2023 54.9 kg (121 lb 0.5 oz) Nausea:None Vomiting: None Bowel Function: normal bowel movements Erythema/Hyperpigmentation:mild on both iincisons Desquamation:none Rash:moderate Skin Care: Aquaphor and Other: kenalog lotion Skin Sensation: moderate itching Focused Assessment BREAST: Not applicable. SIGNED by: Stacie Roger RN documented in this encounterMercy Health [facility]09-09-2024 History of Present illness Narrative* Hellen Zhu DO - 12/02/2023 3:09 PM EDT Oncologic problem(s): 1) cTx cN2a Mx ER/VA negative, HER2 negative grade 3 clinical stage IIIC invasive mammary carcinomaof the left breast. HPI: The patient is a 63 yo female with PMH as outlined below. [...] tissue involved by metastatic mammary carcinoma (provisional [place] grade 3). The carcinoma cells express cytokeratin AE1/AE3, GATA3, TRPS 1, and SOX10, and are negative for PAX8, TTF-1, and CDX2, supporting mammary origin. Breast biomarker studies have been requested and results will be reported separately in a linked report. 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 Diagnosed with lymphocytic colitis about 3 years ago. Abdominal pain/diarrhea. Treated with probiotic and magnesium supplement. Had MRI brain and PET scan at [facility] on 04/09. MRI reported with LEFT and RIGHT transposed--I dictated correct side below. MRI revealed a 1.4 x 1.0 x 0.8 cm enhancing mass in the upper outer quadrant of the LEFT breast located 2.3 cm from the nipple along the 1:00 axis. The mass is 1.9 cm from the underlying pectoralis and 1.1 cm from the skin surface. No additional abnormal enhancement was observed. There were multiple pathologically enlarged right axillary lymph nodes, at least 3 of which were included within the [id number] measuring up to 2.8 cm. No internal mammary lymphadenopathy. Postlumpectomy changes were noted in the upper inner quadrant of the RIGHT breast. There was a 4 to5 mm focus of progressive enhancement along the superior medial aspect of the lumpectomy site whichwas nonspecific. No axillary adenopathy was noted. No internal mammary adenopathy was noted. A second look ultrasound of the focus of progressive enhancement in the left breast was recommended. Ultrasound-guided biopsy of right and left breast lesions on 04/24/2023. Pathology: Left breast at 1 o'clock, 4 cm from the nipple, core biopsy: - INVASIVE DUCTAL CARCINOMA, POORLY DIFFERENTIATED. - Angiolymphatic invasion present. - See comment. Estrogen receptors: NEGATIVE (0) Progesterone receptors: NEGATIVE (0) HER2/patricia: NEGATIVE (0) Right breast at 1 o'clock, 4 cm from the nipple, core biopsy: - Inflamed fibroadipose tissue with hemorrhage, stromal fibroelastosis and fat necrosis. - No malignancy identified. - See comment. Previous therapy: 1) Paclitaxel and carboplatin along with pembrolizumab. 2) AC with pembro x1 cycle. Neutropenic on day 8, cycle #2. Treatment deferred. On return 05/30, still neutropenic. Treatment deferred. Received Neulasta on 06/02. Since last seen underwent lumpectomy with sentinel lymph node biopsy on 10/02/2023. Pathologic CR. Additional margins including deep, inferior, superior, medial, anterior and lateral all negative for carcinoma. 5 sentinel lymph nodes retrieved. All negative for disease. Current therapy: 1) Pembrolizumab. Presents for ongoing oncologic management. Interim history: Rash left breast medially around to back over shoulder. Itches. OTC hydrocortisone no help. No further episodes tachycardia. PAST MEDICAL HISTORY 03/25/1983: Condyloma acuminatum Comment: no history of recurrance since treatment 09/2021: COVID-19 No date: Lymphocytic colitis 04/12/2023: Malignant neoplasm of left breast in female, estrogen receptor negative (HCC) 05/24/1991: Malignant neoplasm of upper-outer quadrant of female breast (HCC) Comment: breast cancer treated with chemo and radiation 03/21/2023: Mass of axilla, left No date: Mental disorder No date: Rectal bleeding 03/25/2004: Unspecified constipation Comment: Constipation PAST SURGICAL HISTORY 1983: CAUTERY CERVIX CRYOCAUTERY INITIAL/REPEAT Comment: treated for condylomata 01/2020: COLONOSCOPY 07/21/2015: COLONOSCOPY FLX DX W/COLLJ SPEC WHEN PFRMD Comment: Colonoscopy 2011: COLONOSCOPY SCREENING 01/2020: EGD 1991: LIG/TRNSXJ FLP TUBE ABDL/VAG APPR UNI/BI 1992: LUMPECTOMY/RADIOTHERAPY DIAG MAMM/A10 Comment: RIGHT 06/2004: PAST SURGICAL HISTORY OF Comment: breast recontruction rt and bilateral implants No date: PAST SURGICAL HISTORY OF Comment: lazer surgery on face No date: PROPH RETINAL DTCHMNT W/O DRG PHOTOCOAGULATION; Right Comment: torn retina repair No date: REMV CATARACT EXTRACAP,INSERT LENS 02/2023: US BREAST NEEDLE CORE BIOPSY LT; Left Comment: LN bx ALLERGIES Allergen Reactions Bactrim [Sulfametho* GI Upset Current Outpatient Medications Medication Sig acetaminophen (TYLENOL) 325 mg tablet Take 650 mg by mouth every 6 hours as needed. Magnesium Oxide 500 mg cap Take 1 capsule by mouth as needed. Lactobacillus acidophilus (PROBIOTIC) 10 billion cell cap Take 1 capsule by mouth once daily. lidocaine-prilocaine (EMLA) 2.5-2.5 % cream Apply 60 minutes prior to accessing port. cimetidine (TAGAMET ORAL) Take by mouth as needed. cholecalciferol, vitamin D3, (VITAMIN D3 ORAL) Take 1,000 Units by mouth once daily. CALCIUM ORAL Take 800 mg by mouth once daily. amino acids/multivitamin (MULTIVITAMIN-AMINO ACIDS ORAL) Take 1 tablet by mouth once daily. No amino acids PAXIL 30 MG TAB Take 30 mg by mouth once daily. No current facility-administered medications for this visit. Social History Tobacco Use Smoking status: Former Current packs/day: 0.00 Types: Cigarettes Start date: 08/23/1981 Quit date: 08/24/1983 Years since quittin.3 Smokeless tobacco: Never Tobacco comments: in her early 20's, none now Vaping Use Vaping status: Never Used Substance Use Topics Alcohol use: No Drug use: No Family History Problem Relation Age of Onset other (constipation) Mother other (atrial fib) Father Hypertension Maternal Grandmother Aneurysm Maternal Grandmother brain aneurysm age 64 No Known Problems Maternal Grandfather Stroke Paternal Grandmother two light strokes 74 year of age Diabetes Paternal Grandfather Diabetes Other GRANDFATHER No family h/o breast cancer or other cancer. Has a brother. OBSTETRIC RELATED HISTORY: P0 History Breast Feeding: No. Age at of First Child: N/A. Age at Onset of Menses: 9 years of age. Age at Menopause: Early 40s (chemotherapy) years of age. Ovaries: Both intact. Uterus: Intact Exogenous Hormone Use/HRT: No. Oral Contraceptives: Age [age]. Tubal ligation age 31. ROS: Constitutional: No fever. No drenching night sweats. Normal appetite. No unexplained weight loss. No significant fatigue. Neuro: No recent AMARO, vertigo, dizziness or imbalance. No symptoms of sensory neuropathy. HEENT: No recent change in voice, vision or hearing. Resp: No cough, wheeze of hemoptysis. No shortness of breath at rest. No ORELLANA. CVS: No exertional chest pain, PND or orthopnea. No extremity swelling/edema. No symptoms of claudication. No painful or tender varicose veins. GI: No dysphagia or odynophagia. No reflux, n/v, change in bowel habits. No abdominal pain, bloating or distension. No black or bloody stools. : No dysuria or gross hematuria. No symptoms of bladder outlet obstruction. Endo: No hot flashes. No polyuria or polydipsia. No heat or cold intolerance. Musculoskeletal: No bone, back, joint and muscular pain. Derm: See above. Heme: No unusual bleeding and unexplained bruising. Psych: Normal mood. PHYSICAL EXAM: Vitals: Blood pressure 103/57, pulse 69, temperature 37.1 C (98.7 F), temperature source Temporal, weight 54.9 kg (121 lb), last menstrual period 12/30/2007, SpO2 99%. Well-appearing and in no acute distress. EYES: Sclerae are anicteric bilaterally. RESPIRATORY: Inspiratory breath sounds are of normal intensity in all zambrano. CARDIOVASCULAR: Rhythm is regular. Normal intensity S1/S2. There is no gallop or murmur. BREAST: Not performed. ABDOMEN: The abdomen is nondistended. No splenomegaly or hepatomegaly. No tenderness. Extremities: No swelling or edema. SKIN: Rash with border at medial left breast extending to supraclavicular area and to about mid medial scapular area on the back. No pustules. Slightly raised patchy erythematous. 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 -cTx cN2a Mx ER/VA negative, HER2 negative grade 3 clinical stage IIIC invasive mammary carcinoma of the left breast. -ypT0 pN0 M0. -No family history of breast, gynecologic or other malignancy. -Genetic testing normal. -Cycles 2-4 AC held due to risk of CM and response on MRI following carbo/paclitaxel/pembro. -Tolerating pembrolizumab well. -Rash may be secondary to immunotherapy and radiation field. -Again discussed typical clinical monitoring for recurrent disease. She would be more comfortable with imaging at least for the first year or two. We will continue to address at follow-up visits. Plan: -Continue pembrolizumab. -Rx Kenalog 0.1% lotion. Portions of this documentation were copied and pasted from previous office visit notes in order to provide a cohesive continuity of the history. The note has been reviewed and edited and updated as necessary. I spent a total of 15 minutes on the date of the service which included preparing to see the patient, [id number] patient care, completing clinical documentation, obtaining and/or reviewing separately obtained history, performing a medically appropriate examination, counseling and educating the pat ient/family/caregiver, ordering medications, tests, or procedures, communicating with other HCPs (not separately reported), and communicating results to the patient/family/caregiver. Hellen Zhu DO documented in this encounterMer[facility]09-03-2024 History of Present illness Narrative* Melony Davis MD - 11/26/2023 2:46 PM EDT Radiation Oncology - On Treatment Review (OTR) Note PATIENT NAME: Carrie Herbert PATIENT DIAGNOSIS: 1. Clinical stage IIIC, cT1 cN2a, invasive mammary carcinoma of the left breast, s/p neoadjuvant chemotherapy and pembro, s/p left breast lumpectomy and sentinel node biopsy on 10/02/23. Complete pathologic response with ypT0 and ypN0. It's ER negative (<1%), VA negative (<1%) and Her2 1+. 2. h/o right breast cancer 30 years ago treated with right breast lumpectomy, radiation treatment and chemotherapy. COURSE: adjuvant AREA TREATED: Left breast/SC/axilla CURRENT DOSE: 2000 cGy in 10 fx PLANNED DOSE: 6000 cGy in 30 fx Status: Post-menopausal SUBJECTIVE: She has slight pruritus. EXAM: KPS: 90 General Appearance: Alert and oriented. No acute distress. Radiation dermatitis: No IMAGING/LAB RESULTS: None Treatment chart checked: Yes Patient treatment site reviewed and verified:Yes Port films reviewed and current:Yes Medications started: None ASSESSMENT/PLAN: Clinically stable. Toxicity within expected parameters. Continue radiation treatment as planned. Melony Davis MD * Stacie Roger RN - 11/26/2023 2:38 PM EDT Radiation Therapy - Nursing Note (OTV) PATIENT NAME: Carrie Herbert PATIENT November 26, 2023 [facility] FACILITY/LOCATION: [place] NURSING NOTE TYPE: BREAST Subjective Data some itching around breast area for about three days Additional Data Do you want to see a Psychology Clinician? No Status: Post-menopausal. Stress Scale: On a scale of 0 to 10, what number best describes how much distress you have experienced in the past week?(0 being no distress and 10 being extreme distress) 0 Social work notified: Pt denied need to see dialysis social worker at this time. Nursing Assessment Fatigue: none Appetite: good Nutritional Intake: Regular oral intake. Weight Gain/Loss: No Ambulatory weight history: Last 6 Encounter Wt Readings: Date: Wt: 11/19/2023 55.1 kg (121 lb 8 oz) 10/22/2023 53.8 kg (118 lb 8 oz) 10/18/2023 54 kg (119 lb) 08/29/2023 54.9 kg (121 lb 0.5 oz) 08/29/2023 54.9 kg (121 lb) 08/08/2023 54.7 kg (120 lb 8 oz) Nausea:None Vomiting: None Bowel Function: normal bowel movements Erythema/Hyperpigmentation:mild Desquamation:none Rash:mild Skin Care: Aquaphor Skin Sensation: mild itching Focused Assessment BREAST: Lymphedema Assessment: Is the patient noting any swelling? No. SIGNED by: Stacie Roger RN documented in this encounterMer[facility]-27-[facility]24 Nurse Note* Lory Robles RN - 11/19/2023 3:00 PM EDT Radiation Therapy - Nursing Note (OTV) PATIENT NAME: Carrie Herbert PATIENT November 19, 2023 [facility] FACILITY/LOCATION: [place] NURSING NOTE TYPE: BREAST Subjective Data No concerns expressed today Additional Data Do you want to see a Psychology Clinician? No Status: Patient states there is no possibility she is at this time. Stress Scale: On a scale of 0 to 10, what number best describes how much distress you have experienced in the past week?(0 being no distress and 10 being extreme distress) 0 Social work notified: Pt denied need to see dialysis social worker at this time. Nursing Assessment Fatigue: none Appetite: excellent Nutritional Intake: Regular oral intake. Weight Gain/Loss: Yes Ambulatory weight history: Last 6 Encounter Wt Readings: Date: Wt: 11/19/2023 55.1 kg (121 lb 8 oz) 10/22/2023 53.8 kg (118 lb 8 oz) 10/18/2023 54 kg (119 lb) 08/29/2023 54.9 kg (121 lb 0.5 oz) 08/29/2023 54.9 kg (121 lb) 08/08/2023 54.7 kg (120 lb 8 oz) Nausea:None Vomiting: None Bowel Function: normal bowel movements Erythema/Hyperpigmentation:none Desquamation:none Rash:none Skin Care: Aquaphor Skin Sensation: Within Normal Limits Focused Assessment BREAST: Lymphedema Assessment: Is the patient noting any swelling? No. Is the patient having limited range of motion of effected arm? No Is the patient currently receiving any preventative/active treatment for lymphedema? No SIGNED by: Lory Robles RN [facility]08-[facility] Nurse Note* Lory Robles RN - 11/19/2023 3:00 PM EDT Radiation Therapy - Nursing Note (OTV) PATIENT NAME: Carrie Herbert PATIENT November 19, 2023 [facility] FACILITY/LOCATION: [facility] NOTE TYPE: BREAST Subjective Data No concerns expressed today Additional Data Do you want to see a Psychology Clinician? No Status: Patient states there is no possibility she is at this time. Stress Scale: On a scale of 0 to 10, what number best describes how much distress you have experienced in the past week?(0 being no distress and 10 being extreme distress) 0 Social work notified: Pt denied need to see dialysis social worker at this time. Nursing Assessment Fatigue: none Appetite: excellent Nutritional Intake: Regular oral intake. Weight Gain/Loss: Yes Ambulatory weight history: Last 6 Encounter Wt Readings: Date: Wt: 11/19/2023 55.1 kg (121 lb 8 oz) 10/22/2023 53.8 kg (118 lb 8 oz) 10/18/2023 54 kg (119 lb) 08/29/2023 54.9 kg (121 lb 0.5 oz) 08/29/2023 54.9 kg (121 lb) 08/08/2023 54.7 kg (120 lb 8 oz) Nausea:None Vomiting: None Bowel Function: normal bowel movements Erythema/Hyperpigmentation:none Desquamation:none Rash:none Skin Care: Aquaphor Skin Sensation: Within Normal Limits Focused Assessment BREAST: Lymphedema Assessment: Is the patient noting any swelling? No. Is the patient having limited range of motion of effected arm? No Is the patient currently receiving any preventative/active treatment for lymphedema? No SIGNED by: Lory Robles RN documented in this encounterMercy [facility]08-27-2024 History of Present illness Narrative* Melony Davis MD - 11/19/2023 2:55 PM EDT Radiation Oncology - On Treatment Review (OTR) Note PATIENT NAME: Carrie Herbert PATIENT DIAGNOSIS: 1. Clinical stage IIIC, cT1 cN2a, invasive mammary carcinoma of the left breast, s/p neoadjuvant chemotherapy and pembro, s/p left breast lumpectomy and sentinel node biopsy on 10/02/23. Complete pathologic response with ypT0 and ypN0. It's ER negative (<1%), VA negative (<1%) and Her2 1+. 2. h/o right breast cancer 30 years ago treated with right breast lumpectomy, radiation treatment and chemotherapy. COURSE: adjuvant AREA TREATED: Left breast/SC/axilla CURRENT DOSE: 1200 cGy in 6 fx PLANNED DOSE: 6000 cGy in 30 fx Status: Post-menopausal SUBJECTIVE: She is doing well without any specific new complaints. EXAM: KPS: 100 General Appearance: Alert and oriented. No acute distress. Radiation dermatitis: No IMAGING/LAB RESULTS: None Treatment chart checked: Yes Patient treatment site reviewed and verified:Yes Port films reviewed and current:Yes Medications started: None ASSESSMENT/PLAN: Clinically stable. No signs of toxicity. Continue radiation treatment as planned. Melony Davis MD documented in this encounterMer[facility]08-20-2024 History of Present illness Narrative* Melony Davis MD - 11/12/2023 2:47 PM EDT Radiation Oncology - On Treatment Review (OTR) Note PATIENT NAME: Carrie Herbert PATIENT DIAGNOSIS: 1. Clinical stage IIIC, cT1 cN2a, invasive mammary carcinoma of the left breast, s/p neoadjuvant chemotherapy and pembro, s/p left breast lumpectomy and sentinel node biopsy on 10/02/23. Complete pathologic response with ypT0 and ypN0. It's ER negative (<1%), VA negative (<1%) and Her2 1+. 2. h/o right breast cancer 30 years ago treated with right breast lumpectomy, radiation treatment and chemotherapy. COURSE: adjuvant AREA TREATED: Left breast/SC/axilla CURRENT DOSE: 400 cGy in 2 fx PLANNED DOSE: 6000 cGy in 30 fx Status: Post-menopausal SUBJECTIVE: She is doing well without any specific new complaints. EXAM: KPS: 100 General Appearance: Alert and oriented. No acute distress. Radiation dermatitis: No IMAGING/LAB RESULTS: None Treatment chart checked: Yes Patient treatment site reviewed and verified:Yes Port films reviewed and current:Yes Medications started: None ASSESSMENT/PLAN: Clinically stable. No signs of toxicity. Continue radiation treatment as planned. Melony Davis MD * Stacie Roger RN - 11/12/2023 2:40 PM EDT Radiation Therapy - Nursing Note (OTV) PATIENT NAME: Carrie Herbert PATIENT November 12, 2023 [facility] FACILITY/LOCATION: [place] NURSING NOTE TYPE: BREAST Subjective Data no complaints Additional Data Do you want to see a Psychology Clinician? No Status: Post-menopausal. Stress Scale: On a scale of 0 to 10, what number best describes how much distress you have experienced in the past week?(0 being no distress and 10 being extreme distress) 0 Social work notified: Pt denied need to see dialysis social worker at this time. Nursing Assessment Fatigue: none Appetite: good Nutritional Intake: Regular oral intake. Weight Gain/Loss: Not applicable Ambulatory weight history: Last 6 Encounter Wt Readings: Date: Wt: 10/22/2023 53.8 kg (118 lb 8 oz) 10/18/2023 54 kg (119 lb) 08/29/2023 54.9 kg (121 lb 0.5 oz) 08/29/2023 54.9 kg (121 lb) 08/08/2023 54.7 kg (120 lb 8 oz) 08/08/2023 54.7 kg (120 lb 8 oz) Nausea:None Vomiting: None Bowel Function: normal bowel movements Erythema/Hyperpigmentation:none Desquamation:none Rash:none Skin Care: Aquaphor Skin Sensation: Within Normal Limits Focused Assessment BREAST: Not applicable. SIGNED by: Stacie Roger RN documented in this encounterMercy [facility]08-12-2024 Nurse Note* Debra Thomas RN - 11/04/2023 3:01 PM EDT Radiation Therapy - Patient Education Note PATIENT NAME: Carrie Herbert PATIENT November 04, 2023 [facility] FACILITY/LOCATION: [place] READINESS TO LEARN Cognitive Ability: Alert and oriented Motivation to learn: Eager Interested Family Support: Unable to assess - Family not present Instruction provide to: Patient Patient learns best by: Multiple Methods Factors effecting learning: None Physical limitations effecting learning: None LEARNING RESPONSE Diagnosis: Pt simulated today for radiation therapy to left breast. Education Topic/Teaching Points: Radiation therapy, Side effects, and OTV: Method of instruction: Teach Back skin care Individual instruction Written instruction/Handouts Verbal instruction Patient /Family response: Patient verbalized understanding of radiation treatments, side effects, OTV, and transportation. Follow-up plan: Patient instructed to call with any further issues Contact information given. Supplemental material: Informational handouts on Department phone list, Fatigue, and [place] instructions, XRT sheet and Aquaphor handout. 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 Was PED reviewed? unknown Patient has an Onbody or Implanted device: No Signed by: Debra Thomas RN [facility]08-[facility] Nurse Note* Debra Thomas RN - 11/04/2023 3:01 PM EDT Radiation Therapy - Patient Education Note PATIENT NAME: Carrie Herbert PATIENT November 04, 2023 [facility] FACILITY/LOCATION: [place] READINESS TO LEARN Cognitive Ability: Alert and oriented Motivation to learn: Eager Interested Family Support: Unable to assess - Family not present Instruction provide to: Patient Patient learns best by: Multiple Methods Factors effecting learning: None Physical limitations effecting learning: None LEARNING RESPONSE Diagnosis: Pt simulated today for radiation therapy to left breast. Education Topic/Teaching Points: Radiation therapy, Side effects, and OTV: Method of instruction: Teach Back skin care Individual instruction Written instruction/Handouts Verbal instruction Patient /Family response: Patient verbalized understanding of radiation treatments, side effects, OTV, and transportation. Follow-up plan: Patient instructed to call with any further issues Contact information given. Supplemental material: Informational handouts on Department phone list, Fatigue, and [place] instructions, XRT sheet and Aquaphor handout. 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 Was PED reviewed? unknown Patient has an Onbody or Implanted device: No Signed by: Debra Thomas RN documented in this encounterMercy [facility]08-12-2024 History of Present illness Narrative* Melony Davis MD - 11/04/2023 12:00 AM EDT CARRIE HERBERT [id number] 11/04/2023 [facility] Department of Radiation Oncology [facility] RADIATION ONCOLOGY SIMULATION NOTE DATE OF SIMULATION: 11/04/2023 MACHINE: Siemens Definition CT Simulator Diagnosis: 1. Clinical stage IIIC, cT1 cN2a, invasive mammary carcinoma of the left breast, s/p neoadjuvant chemotherapy and pembro, s/p left breast lumpectomy and sentinel node biopsy on 10/02/23. Complete pathologic response with ypT0 and ypN0. It's ER negative (<1%), VA negative (<1%) and Her2 1+. 2. h/o right breast cancer 30 years ago treated with right breast lumpectomy, radiation treatment and chemotherapy. AREA:Left Breast/SC/Axilla. PATIENT POSITION: Supine. CONTRAST: None PROTOCOL: None BLOCKING: Custom blocking to be determined at treatment planning. FIXATION DEVICE: In order to achieve accurate and reproducible treatments, the patient is to be immobilized with AIO orfit system and ABC device. PROCEDURE: A time-out was conducted and recorded by the therapist. Patient was simulated on the CT scanner for external beam radiation therapy. Treatment site was marked by the simulation therapist. ASSESSMENT/PLAN: Patient tolerated simulation procedure well. Treatments will be initiated after treatment planning. The patient is scheduled for a verification simulation on the treatment machine toensure proper set-up and field arrangement is correct prior to the first treatment of primary and boost zambrano if applicable. Electronically Signed Melony Davis M.D./jania 42:02 PM documented in this encounterMer[facility]08-12-2024 History of Present illness Narrative* Melony Davis MD - 11/04/2023 12:00 AM EDT CARRIE HERBERT [id number] 11/04/2023 [facility] Department of Radiation Oncology Treatment Planning Note For reasons stated in the consult note, Carrie Herbert is a candidate for radiation therapy. Based onreview and interpretation of the relevant diagnostic studies together with the exam findings, Carmelo was simulated on 11/04/2023 at which time the target volume and/or requisite zambrano were delineated, as indicated in the simulation note, to be treated according to the prescription. CT images were taken during deep inspiration breath hold using a breath hold device. The CT image set was reviewed to assess respiratory reproducibility. The breath hold device allowed for design of patient specific target delineation for the purposes of cardiac sparing. The treatment target and organs at risk were contoured on the simulation scan. Special consideration to these and other structures was given in light of the potential for increased toxicities due to presence of a prosthesis (tissue front facer or implant) in the treatment field. After reviewing multiple treatment plans with dosimetry, the best plan was approved to deliver the prescribed course of radiation to the target area using forward planning / 3D planning to allow for the best isodose distribution, treating the left supraclav/axilla to the 100% isodose line with 6&10MV and 2fields. Theleft breast to the 98% isodose line with 6MV and 2 zambrano. Custom MLC and asym jaw were the treatment devices used to shape/modify the beams. Limiting dose to normal tissue was confirmed upon review of the calculated dose volume histogram. A completed summary of this plan dated 11/08/2023 incorporated herein by reference includes dose, beam arrangements, energy, blocking, isodose distribution, and/or ports and DVH. Electronically Signed Melony Davis M.D. 42:03 PM documented in this encounterMercy Health [facility] Hospital07-31-2024 Nurse Note* Stacie Roger RN - 10/23/2023 2:21 PM EDT Radiation Therapy - Nursing Note (Follow-up) PATIENT NAME: Carrie Herbert PATIENT October 23, 2023 [facility] FACILITY/LOCATION: [place] Reason for visit: Follow up to discuss treatment options. Subjective Data no complaints Additional Data Do you want to see a Psychology Clinician? No Nursing Assessment Fatigue: none Appetite: good Weight Gain/Loss: Not applicable Last 6 Encounter Wt Readings: Date: Wt: 10/22/2023 53.8 kg (118 lb 8 oz) 10/18/2023 54 kg (119 lb) 08/29/2023 54.9 kg (121 lb 0.5 oz) 08/29/2023 54.9 kg (121 lb) 08/08/2023 54.7 kg (120 lb 8 oz) 08/08/2023 54.7 kg (120 lb 8 oz) Bowel Function: normal bowel movements Bone Pain: none Focused Assessment BREAST: Lymphedema Assessment: Is the patient noting any swelling? No. SIGNED by: Stacie Roger RN [facility]07-[facility] Nurse Note* Stacie Roger RN - 10/23/2023 2:21 PM EDT Radiation Therapy - Nursing Note (Follow-up) PATIENT NAME: Carrie Herbert PATIENT October 23, 2023 [facility] FACILITY/LOCATION: [place] Reason for visit: Follow up to discuss treatment options. Subjective Data no complaints Additional Data Do you want to see a Psychology Clinician? No Nursing Assessment Fatigue: none Appetite: good Weight Gain/Loss: Not applicable Last 6 Encounter Wt Readings: Date: Wt: 10/22/2023 53.8 kg (118 lb 8 oz) 10/18/2023 54 kg (119 lb) 08/29/2023 54.9 kg (121 lb 0.5 oz) 08/29/2023 54.9 kg (121 lb) 08/08/2023 54.7 kg (120 lb 8 oz) 08/08/2023 54.7 kg (120 lb 8 oz) Bowel Function: normal bowel movements Bone Pain: none Focused Assessment BREAST: Lymphedema Assessment: Is the patient noting any swelling? No. SIGNED by: Stacie Roger RN documented in this encounterMercy Health [facility] Hospital07-31-2024 History of Present illness Narrative* Melony Davis MD - 10/23/2023 2:20 PM EDT Radiation Oncology - Follow Up Note PATIENT NAME: Carrie Herbert PATIENT DIAGNOSIS: 1. Clinical stage IIIC, cT1 cN2a, invasive mammary carcinoma of the left breast, s/p neoadjuvant chemotherapy and pembro, s/p left breast lumpectomy and sentinel node biopsy on 10/02/23. Complete pathologic response with ypT0 and ypN0. It's ER negative (<1%), VA negative (<1%) and Her2 1+. 2. h/o right breast cancer 30 years ago treated with right breast lumpectomy, radiation treatment and chemotherapy. INTERVAL HISTORY: MRI breasts on 04/09/23 showed a 1.4 x 1.0 x 0.8 cm enhancing left upper outer breast mass and multiple pathologically enlarged left axillary nodes measuring up to 2.8 cm. No internal mammary lymphadenopathy. US of the left breast on 04/17/23 showed a 1.4 x 0.7 x 1.2 cm irregular mass in the left breast 1:00 middle depth. Core biopsy of the left breast lesion on 04/24/23 showed poorly differentiated invasive ductal carcinoma. Positive LVI. ER negative (0), VA negative (0) and Her2 negative (0). PET/CT scan on 04/09/23 showed hypermetabolic lesion in the left breast measuring 9.5 mm with SUV of3.2 and multifocal hypermetabolic nodes in the left axilla and retropectoral nodes. She underwent neoadjuvant chemotherapy with Paclitaxel and carboplatin along with pembrolizumab andthen AC with pembro. MRI breasts on 07/18/23 showed no residual mass in the left upper outer breast and persistent but improved left axillary adenopathy. She underwent left breast lumpectomy and sentinel node biopsy on 10/02/23. Pathology showed no residual malignancy in the left breast. Five sentinel nodes were negative for metastasis. ALLERGIES Allergen Reactions Bactrim [Sulfametho* GI Upset MEDICATIONS: acetaminophen (TYLENOL) 325 mg tablet Take 650 mg by mouth every 6 hours as needed. Magnesium Oxide 500 mg cap Take 1 capsule by mouth as needed. Lactobacillus acidophilus (PROBIOTIC) 10 billion cell cap Take 1 capsule by mouth once daily. lidocaine-prilocaine (EMLA) 2.5-2.5 % cream Apply 60 minutes prior to accessing port. cimetidine (TAGAMET ORAL) Take by mouth as needed. cholecalciferol, vitamin D3, (VITAMIN D3 ORAL) Take 1,000 Units by mouth once daily. CALCIUM ORAL Take 800 mg by mouth once daily. amino acids/multivitamin (MULTIVITAMIN-AMINO ACIDS ORAL) Take 1 tablet by mouth once daily. No amino acids PAXIL 30 MG TAB Take 30 mg by mouth once daily. PHYSICAL EXAM: VS: BP 104/61 Pulse 72 Temp 37.1 C (98.8 F) (Temporal) LMP 12/30/2007 SpO2 98% KPS: 90 General Appearance: Alert and oriented. No acute distress. Recent surgical incision scars in the left breast and axilla healing well. ASSESSMENT AND PLAN: 63 year old woman with Clinical stage IIIC, cT1 cN2a, invasive mammary carcinoma of the left breast, s/p neoadjuvant chemotherapy and pembro, s/p left breast lumpectomy and sentinel node biopsy on 10/02/23. Complete pathologic response with ypT0 and ypN0. It's ER negative (<1%), VA negative (<1%) and Her2 1+. I recommend radiation treatment to the left breast and left axilla/SC. Although she had complete pathologic response, she had PET positive nodes in the retropectoral region and I will include this area in the radiation treatment volume. I explained the rationale, benefits, alternative management options and potential complications of radiation treatment to the patient and she understands and agrees to proceed. It was explained and understood that other personnel such as radiation therapists, power equipment mechanics instructor, and physicists will partici rabago in planning and delivery of radiation treatment. Permanent tattoo landis will be placed to aid with positioning for daily treatment and the patient consented. Patient will have a simulation procedure after she heals from surgery. Thank you very much for allowing us to participate in her care. Signed by: Melony Davis MD cc: Ken Zarco ([facility]) [address] [facility] [address] [place] [address] Hellen Zhu [address] [facility] [id number] documented in this encounterMercy Health [facility] Hospital07-26-2024 History of Present illness Narrative* Hellen Zhu DO - 10/18/2023 4:13 PM EDT Oncologic problem(s): 1) cTx cN2a Mx ER/VA negative, HER2 negative grade 3 clinical stage IIIC invasive mammary carcinomaof the left breast. HPI: The patient is a 63 yo female with PMH as outlined below. 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 Diagnosed with lymphocytic colitis about 3 years ago. Abdominal pain/diarrhea. Treated with probiotic and magnesium supplement. Had MRI brain and PET scan at [facility] on 04/[facility]. MRI reported with LEFT and RIGHT transposed--I dictated correct side below. MRI revealed a 1.4 x 1.0 x 0.8 cm enhancing mass in the upper outer quadrant of the LEFT breast located 2.3 cm from the nipple along the 1:00 axis. The mass is 1.9 cm from the underlying pectoralis and 1.1 cm from the skin surface. No additional abnormal enhancement was observed. There were multiple pathologically enlarged right axillary lymph nodes, at least 3 of which were included within the [id number] measuring up to 2.8 cm. No internal mammary lymphadenopathy. Postlumpectomy changes were noted in the upper inner quadrant of the RIGHT breast. There was a 4 to5 mm focus of progressive enhancement along the superior medial aspect of the lumpectomy site whichwas nonspecific. No axillary adenopathy was noted. No internal mammary adenopathy was noted. A second look ultrasound of the focus of progressive enhancement in the left breast was recommended. Ultrasound-guided biopsy of right and left breast lesions on 04/24/2023. Pathology: Left breast at 1 o'clock, 4 cm from the nipple, core biopsy: - INVASIVE DUCTAL CARCINOMA, POORLY DIFFERENTIATED. - Angiolymphatic invasion present. - See comment. Estrogen receptors: NEGATIVE (0) Progesterone receptors: NEGATIVE (0) HER2/patricia: NEGATIVE (0) Right breast at 1 o'clock, 4 cm from the nipple, core biopsy: - Inflamed fibroadipose tissue with hemorrhage, stromal fibroelastosis and fat necrosis. - No malignancy identified. - See comment. Previous therapy: 1) Paclitaxel and carboplatin along with pembrolizumab. 2) AC with pembro x1 cycle. Neutropenic on day 8, cycle #2. Treatment deferred. On return 05/30, still neutropenic. Treatment deferred. Received Neulasta on 06/02. Presents for ongoing oncologic management. Interim history: Since last seen underwent lumpectomy with sentinel lymph node biopsy on 10/02/2023. Pathologic CR. Additional margins including deep, inferior, superior, medial, anterior and lateral all negative for carcinoma. 5 sentinel lymph nodes retrieved. All negative for disease. No side effects from pembrolizumab. Occasional sensation of tachycardia. No orthostasis or other symptoms suggestive of cardiomyopathy. PAST MEDICAL HISTORY Diagnosis Date Condyloma acuminatum 03/25/1983 no history of recurrance since treatment COVID-19 09/2021 Lymphocytic colitis Malignant neoplasm of left breast in female, estrogen receptor negative (HCC) 04/12/2023 Malignant neoplasm of upper-outer quadrant of female breast (HCC) 05/24/1991 breast cancer treated with chemo and radiation Mass of axilla, left 03/21/2023 Mental disorder Rectal bleeding Unspecified constipation 03/25/2004 [...] torn retina repair REMV CATARACT EXTRACAP,INSERT LENS US BREAST NEEDLE CORE BIOPSY LT Left 02/2023 LN bx ALLERGIES Allergen Reactions Bactrim [Sulfametho* GI Upset Current Outpatient Medications Medication Sig acetaminophen (TYLENOL) 325 mg tablet Take 650 mg by mouth every 6 hours as needed. Magnesium Oxide 500 mg cap Take 1 capsule by mouth as needed. Lactobacillus acidophilus (PROBIOTIC) 10 billion cell cap Take 1 capsule by mouth once daily. lidocaine-prilocaine (EMLA) 2.5-2.5 % cream Apply 60 minutes prior to accessing port. cimetidine (TAGAMET ORAL) Take by mouth as needed. cholecalciferol, vitamin D3, (VITAMIN D3 ORAL) Take 1,000 Units by mouth once daily. CALCIUM ORAL Take 800 mg by mouth once daily. amino acids/multivitamin (MULTIVITAMIN-AMINO ACIDS ORAL) Take 1 tablet by mouth once daily. No amino acids PAXIL 30 MG TAB Take 30 mg by mouth once daily. No current facility-administered medications for this visit. Social History Tobacco Use Smoking status: Former Years: 2 Types: Cigarettes Quit date: 08/24/1983 Years since quittin.1 Smokeless tobacco: Never Tobacco comments: in her early 20's, none now Vaping Use Vaping Use: Never used Substance Use Topics Alcohol use: No Drug use: No Family History Problem Relation Age of Onset other (constipation) Mother other (atrial fib) Father Hypertension Maternal Grandmother Aneurysm Maternal Grandmother brain aneurysm age 64 No Known Problems Maternal Grandfather Stroke Paternal Grandmother two light strokes 74 year of age Diabetes Paternal Grandfather Diabetes Other GRANDFATHER No family h/o breast cancer or other cancer. Has a brother. OBSTETRIC RELATED HISTORY: P0 History Breast Feeding: No. Age at of First Child: N/A. Age at Onset of Menses: 9 years of age. Age at Menopause: Early 40s (chemotherapy) years of age. Ovaries: Both intact. Uterus: Intact Exogenous Hormone Use/HRT: No. Oral Contraceptives: Age [age]. Tubal ligation age 31. ROS: Constitutional: No fever. No drenching night sweats. Normal appetite. No unexplained weight loss. No significant fatigue. Neuro: No recent AMARO, vertigo, dizziness or imbalance. No symptoms of sensory neuropathy. HEENT: No recent change in voice, vision or hearing. Resp: No cough, wheeze of hemoptysis. No shortness of breath at rest. No ORELLANA. CVS: No exertional chest pain, PND or orthopnea. No extremity swelling/edema. No symptoms of claudication. No painful or tender varicose veins. GI: No dysphagia or odynophagia. No reflux, n/v, change in bowel habits. No abdominal pain, bloating or distension. No black or bloody stools. : No dysuria or gross hematuria. No symptoms of bladder outlet obstruction. Endo: No hot flashes. No polyuria or polydipsia. No heat or cold intolerance. Musculoskeletal: No bone, back, joint and muscular pain. Derm: No current rash. No history of jaundice. No diffuse pruritis. Heme: No unusual bleeding and unexplained bruising. Psych: Normal mood. PHYSICAL EXAM: Vitals: Blood pressure 131/84, pulse 60, temperature 36.5 C (97.7 F), temperature source Temporal, weight 54 kg (119 lb), last menstrual period 12/30/2007, SpO2 98%. Well-appearing and in no acute distress. EYES: Sclerae are anicteric bilaterally. LYMPHATIC: Steri-Strips in place left axilla. RESPIRATORY: Inspiratory breath sounds are of normal intensity in all zambrano. No rales, wheezes or rhonchi. Expiratory phase is normal. CARDIOVASCULAR: Rhythm is regular. Normal intensity S1/S2. There is no gallop or murmur. BREAST: Well-healed incision upper outer left breast. Total breast exam not performed. ABDOMEN: The abdomen is nondistended. No splenomegaly or hepatomegaly. No tenderness. Extremities: No swelling or edema. SKIN: No jaundice. 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 -cTx cN2a Mx ER/VA negative, HER2 negative grade 3 clinical stage IIIC invasive mammary carcinoma of the left breast. -ypT0 pN0 M0. -No family history of breast, gynecologic or other malignancy. -Genetic testing normal. -Tolerating pembrolizumab well. -Cycles 2-4 AC held due to risk of CM and response on MRI following carbo/paclitaxel/pembro. -Discussed need for adjuvant radiation. -Discussed typical clinical monitoring for recurrent disease. She would be more comfortable with imaging at least for the first year or two. We will continue to address at follow-up visits. Plan: -Restart pembrolizumab next week. -Will require 5 more doses total. -Referral to Dr. Davis for opinion on adjuvant radiation. Portions of this documentation were copied and pasted from previous office visit notes in order to provide a cohesive continuity of the history. The note has been reviewed and edited and updated as necessary. I spent a total of 20 minutes on the date of the service which included preparing to see the patient, nhpi-zl-mxbw patient care, completing clinical documentation, obtaining and/or reviewing separately obtained history, performing a medically appropriate examination, counseling and educating the pat ient/family/caregiver, ordering medications, tests, or procedures, communicating with other HCPs (not separately reported), and communicating results to the patient/family/caregiver. Hellen Zhu DO [facility] Discharge instructions Patient Education 10/02/2023 14:14:22 Axillary Lymph Node Dissection, Care After Axillary Lymph Node Dissection, Care After This sheet gives you information about how to care for yourself after your procedure. Your health care provider may also give you more specific instructions. If you have problems or questions, contact your health care provider. What can I expect after the procedure? After the procedure, it is common to have: Pain and soreness around your incision area. Trouble moving your arm or shoulder. A small amount of swelling in your arm. Numbness on the upper and inside parts of your arm. Follow these instructions at home: Medicines Take kbug-net-whdpzqy and prescription medicines only as told by your health care provider. If you were prescribed an antibiotic medicine, take it as told by your health care provider. Do notstop taking the antibiotic even if you start to feel better. Incision care Follow instructions from your health care provider about how to take care of your incision. Make sure you: ?Wash your hands with soap and water before you change your bandage (dressing). If soap and water are not available, use hand pershing missile crewmember. ?Change your dressing as told by your health care provider. ?Leave stitches (sutures), skin glue, or adhesive strips in place. These skin closures may need to stay in place for 2 weeks or longer. If adhesive strip edges start to loosen and curl up, you may trim the loose edges. Do not remove adhesive strips completely unless your health care provider tells you to do that. Check your incision area every day for signs of infection. Check for: ?Redness, swelling, or pain. ?Fluid or blood. ?Warmth. ?Pus or a bad smell. Activity Do arm and shoulder exercises as told by your health care provider. This may prevent movement problems and stiffness. Return to your normal activities as told by your health care provider. Ask your health care provider what activities are safe for you. Avoid any activities that cause pain. Driving Do not drive for 24 hours if you were given a medicine to help you relax (sedative). Do not drive or use heavy machinery while taking prescription pain medicine. General instructions If a drainage tube was left in your breast, care for it as told by your health care provider. The drain may stay in place for up to 7 10 days. Wear a compression garment on your arm as told by your health care provider. This may help to prevent blood clots and reduce swelling in your arm. Do not use any products that contain nicotine or tobacco, such as cigarettes and e-cigarettes. If you need help quitting, ask your health care provider. Do not take baths, swim, or use a hot tub until your health care provider approves. Ask your healthcare provider if you may take showers. You may only be allowed to take sponge baths for bathing. Do not have your blood pressure taken, have blood drawn, or get injections or IVs in the arm on theside where your lymph nodes were removed. Follow instructions from your health care provider about how often you should be screened for extrafluid around your lymph nodes (lymphedema). Keep all follow-up visits as told by your health care provider. This is important. Contact a health care provider if: Your arm is swollen, tight, and painful. You have redness, swelling, or pain around your incision. You have fluid or blood coming from your incision. Your incision feels warm to the touch. You have pus or a bad smell coming from your incision. Get help right away if: You have severe pain that does not get better with medicine. You have a fever or chills. You are confused. You have chest pain. You have shortness of breath. Summary After the procedure, it is common to have pain and soreness and trouble moving your arm or shoulder. A small amount of arm swelling is normal after the procedure. However, you should contact your health care provider if your arm is swollen, tight, and painful. Wear a compression garment on your arm as told by your health care provider. This may help to prevent blood clots and reduce swelling in your arm. Do arm and shoulder exercises as directed to help prevent movement problems and stiffness. If a drainage tube was left in your breast, care for it as told by your health care provider. This information is not intended to replace advice given to you by your health care provider. Make sure you discuss any questions you have with your health care provider. Document Released: 05/08/2017 Document Revised: 06/30/2019 Document Reviewed: 05/08/2017 [employer] Patient Education 2020 [employer]. 10/02/2023 14:14:08 Breast Biopsy, Care After, Wgpt-cx-Uuzk Breast Biopsy, Care After These instructions give you information about caring for yourself after your procedure. Your doctormay also give you more specific instructions. Call your doctor if you have any problems or questions after your procedure. What can I expect after the procedure? After your procedure, it is common to have: Bruising on your breast. Numbness, tingling, or pain near your biopsy site. Follow these instructions at home: Medicines Take uloy-zie-omroctp and prescription medicines only as told by your doctor. Do not drive for 24 hours if you were given a medicine to help you relax (sedative) during your procedure. Do not drink alcohol while taking pain medicine. Do not drive or use heavy machinery while taking prescription pain medicine. Biopsy site care Follow instructions from your doctor about how to take care of your cut from surgery (incision) or your puncture area. Make sure you: ?Wash your hands with soap and water before you change your bandage (dressing). If you cannot use soap and water, use hand pershing missile crewmember. ?Change your bandage as told by your doctor. ?Leave stitches (sutures), skin glue, or skin tape (adhesive strips) in place. They may need to stay in place for 2 weeks or longer. If tape strips get loose and curl up, you may trim the loose edges. Do not remove tape strips completely unless your doctor says it is okay. If you have stitches, keep them dry when you take a bath or a shower. Check your cut or puncture area every day for signs of infection. Check for: ?Redness, swelling, or pain. ?Fluid or blood. ?Warmth. ?Pus or a bad smell. Protect the biopsy area. Do not let the area get bumped. Activity If you had a cut during your procedure, avoid activities that could pull your cut open. These include: ?Stretching. ?Reaching over your head. ?Exercise. ?Sports. ?Lifting anything that weighs more than 3 lb (1.4 kg). Return to your normal activities as told by your doctor. Ask your doctor what activities are safe for you. Managing pain, stiffness, and swelling If told, put ice on the biopsy site to relieve swelling: Put ice in a plastic bag. Place a towel between your skin and the bag. Leave the ice on for 20 minutes, 2 3 times a day. General instructions Continue your normal diet. Wear a good support bra for as long as told by your doctor. Get checked for extra fluid around your lymph nodes (lymphedema) as often as told by your doctor. Keep all follow-up visits as told by your doctor. This is important. Contact a doctor if: You notice any of the following at the biopsy site: ?More redness, swelling, or pain. ?More fluid or blood coming from the site. ?The site feels warm to the touch. ?Pus or a bad smell coming from the site. ?The site breaks open after the stitches or skin tape strips have been removed. You have a rash. You have a fever. Get help right away if: You have more bleeding from the biopsy site. Get help right away if bleeding is more than a small spot. You have trouble breathing. You have red streaks around the biopsy site. Summary After your procedure, it is common to have bruising, numbness, tingling, or pain near the biopsy site. Do not drive or use heavy machinery while taking prescription pain medicine. Wear a good support bra for as long as told by your doctor. If you had a cut during your procedure, avoid activities that may pull the cut open. Ask your doctor what activities are safe for you. This information is not intended to replace advice given to you by your health care provider. Make sure you discuss any questions you have with your health care provider. Document Released: 01/05/2010 Document Revised: 08/28/2018 Document Reviewed: 08/28/2018 [employer] Patient Education 2020 [employer] 10/02/2023 14:13:55 1- SDS General Discharge Guidelines (12/07/2022)(CUSTOM) [facility] SAME DAY SURGERY DISCHARGE INSTRUCTIONS PLEASE FOLLOW THE INSTRUCTIONS BELOW MARKED WITH AN X: __X_Regular Diet: Start with clear liquids, then soup and crackers. Gradually add other foods unless otherwise instructed by your surgeon __X_Drink extra fluids ACTIVTY: __X_Since you have had anesthetic, it would be advisable not to drive, drink alcohol, or make majordecisions over the next 24 hours. You may require more rest tonight and tomorrow __X_Do not drive vehicle while taking narcotics and as directed by your Surgeon ____Restrict activity as follows: ____Do not have sexual intercourse. Nothing in the vagina-No tampons or Douching ____No heavy lifting, pushing, or straining ____Elevate operative limb ____Ice as directed __X_Follow all written and verbal instructions given to you by your Doctor ____Other: BATHING/SHOWERING ____Sponge bathe until office visit. ____Sitting in tub of warm water may relieve discomfort ____May tub bathe ____May shower in 24-48 hours with clean linen unless otherwise instructed by your Doctor DRESSING: ____Keep operative area clean and dry ____Check the operative area for signs of bleeding. Apply pressure to the bleeding site if necessary. ____Change drip pad as needed ____Wear scrotal support for comfort WATCH FOR SIGNS OF INFECTION: (Usually appears 36-48 hours after surgery) Increased temperature (101 degrees Fahrenheit or higher) Redness or swelling Increased pain Foul odor or drainage If you have any questions, please call your doctor at the number listed on your follow-up instructions. Follow Up Care 09/16/2023 12:51:04 With:DEBBIE MERINO MD Address: [address] [facility] [place] [address]- When:10/10/2023 15:30:00 Comments:Follow-up as scheduled [facility] 07-10-2024 Summary of episode note Discharge Instructions Thank you for allowing [facility] to assist you with your healthcare needs. The following is importantdischarge information regarding your hospital visit. Your Care Team KEN ZARCO MD Your Diagnosis Acute post-operative pain Breast cancer of left UOQ (angiolymphatic invasion) clinical stage 3C T1c N2a M0 G3 TNC, clip, port, neoadj chemo(Dr Zhu), 05/2023 [facility] genetics neg, MRI 07/17/23 Breast mass, right (03/27/23) s/p US core bx benign, 6 mo f/u rec (September 2023) Dense breast History of breast implants approx 2001 breast augmentation, bilat retropectoral silicone History of right breast biopsy, 2021. fat necrosis History of right breast cancer (1991, age 31) estrogen neg, partial mast, ALND, adjuv chemo, RT, noendocrine Metastatic cancer to left axillary lymph nodes, reported clip What to do next Scheduled Follow-Up Appointments Appointment Type When With Where Contact Information StatusBS OV Post Op 10/10/2023 03:30 PM EDT DEBBIE MERINO MD [facility] Confirmed Follow Up Appointments Follow Up with DEBBIE MERINO MD When:10/10/2023 03:30 PM EDT Where:[address] [place] [address] [place] [address]- Additional Information: Follow-up as scheduled The Following Activity and Diet Have Been Ordered for You Discharge Activity - Ordered -- NO activity restrictions, Follow the post-operative/post-procedure activity instructions provided by your physician's office., 10/02/23 13:57:00 EDT Discharge Diet - Ordered -- Follow the post-operative/post-procedure diet instructions provided by your physician's office.,10/02/23 13:57:00 EDT The Following Equipment Has Been Ordered for You Discharge Home Equipment Discharge Wound Care - Ordered -- Follow the post-operative/post-procedure wound care instructions provided by your physician's office., 10/02/23 13:57:00 EDT Someone Will Contact You Regarding These Home Health Referrals No home referrals have been ordered for you. No one will call you. Allergies Bactrim Diarrhea, Stomach ache Medications Please ask your primary doctor or pharmacist before taking any other medication not listed, including over the counter drugs, herbal medications, vitamins and or supplements as they may interact withyour home medications. What How Much When Why Instructions Last Dose New acetaminophen-oxyCODONE (Percocet 5 mg-325 mg oral tablet) 1 tab(s) by mouth Every 4 hours as needed for for pain Acute post-operative pain Duration: [address] [facility] Unchanged ALPRAZolam (ALPRAZolam 0.5 mg oral tablet) 1 tab(s) by mouth Three (3) times a day as needed for for anxiety Unchanged calcium citrate (calcium (as calcium citrate) 315 mg oral tablet) 2 tab(s) by mouth Once a day (in the morning) Unchanged ergocalciferol (Vitamin D2 50 mcg (2000 intl units) oral capsule) 1 cap by mouth Once a day (in the morning) with food Unchanged herbal/ nutritional product (Probiotic) 1 tab(s) by mouth Once a day (in the morning) Unchanged multivitamin (Multiple Vitamins oral capsule) 1 cap by mouth Once a day (in the morning) Unchanged mupirocin topical (mupirocin 2% topical ointment) 1 application Topical Two (2) times a day Bilateral intranasal application twice daily x 5 days pre-surgery &/ or as many days pre-surgery as possible. Unchanged PARoxetine (PARoxetine 30 mg oral tablet) 1 tab(s) by mouth Once a day (in the morning) Pharmacy Information [facility]: [address] [place], [place] [id number] [phone] Please take this list to your next doctor s visit. Bring all medications you take, including over the counter medications, herbals and other supplements with you to your doctor s visit. Patients and families are reminded to discard old lists and to update any records with all medication providers or retail pharmacies. Education Materials Axillary Lymph Node Dissection, Care After This sheet gives you information about how to care for yourself after your procedure. Your health care provider may also give you more specific instructions. If you have problems or questions, contact your health care provider. What can I expect after the procedure? After the procedure, it is common to have: Pain and soreness around your incision area. Trouble moving your arm or shoulder. A small amount of swelling in your arm. Numbness on the upper and inside parts of your arm. Follow these instructions at home: Medicines Take wosd-nyx-ycqseck and prescription medicines only as told by your health care provider. If you were prescribed an antibiotic medicine, take it as told by your health care provider. Do notstop taking the antibiotic even if you start to feel better. Incision care Follow instructions from your health care provider about how to take care of your incision. Make sure you: ? Wash your hands with soap and water before you change your bandage (dressing). If soap and water are not available, use hand pershing missile crewmember. ? Change your dressing as told by your health care provider. ? Leave stitches (sutures), skin glue, or adhesive strips in place. These skin closures may need to stay in place for 2 weeks or longer. If adhesive strip edges start to loosen and curl up, you may trim the loose edges. Do not remove adhesive strips completely unless your health care provider tells you to do that. Check your incision area every day for signs of infection. Check for: ? Redness, swelling, or pain. ? Fluid or blood. ? Warmth. ? Pus or a bad smell. Activity Do arm and shoulder exercises as told by your health care provider. This may prevent movement problems and stiffness. Return to your normal activities as told by your health care provider. Ask your health care provider what activities are safe for you. Avoid any activities that cause pain. Driving Do not drive for 24 hours if you were given a medicine to help you relax (sedative). Do not drive or use heavy machinery while taking prescription pain medicine. General instructions If a drainage tube was left in your breast, care for it as told by your health care provider. The drain may stay in place for up to 7 10 days. Wear a compression garment on your arm as told by your health care provider. This may help to prevent blood clots and reduce swelling in your arm. Do not use any products that contain nicotine or tobacco, such as cigarettes and e-cigarettes. If you need help quitting, ask your health care provider. Do not take baths, swim, or use a hot tub until your health care provider approves. Ask your healthcare provider if you may take showers. You may only be allowed to take sponge baths for bathing. Do not have your blood pressure taken, have blood drawn, or get injections or IVs in the arm on theside where your lymph nodes were removed. Follow instructions from your health care provider about how often you should be screened for extrafluid around your lymph nodes (lymphedema). Keep all follow-up visits as told by your health care provider. This is important. Contact a health care provider if: Your arm is swollen, tight, and painful. You have redness, swelling, or pain around your incision. You have fluid or blood coming from your incision. Your incision feels warm to the touch. You have pus or a bad smell coming from your incision. Get help right away if: You have severe pain that does not get better with medicine. You have a fever or chills. You are confused. You have chest pain. You have shortness of breath. Summary After the procedure, it is common to have pain and soreness and trouble moving your arm or shoulder. A small amount of arm swelling is normal after the procedure. However, you should contact your health care provider if your arm is swollen, tight, and painful. Wear a compression garment on your arm as told by your health care provider. This may help to prevent blood clots and reduce swelling in your arm. Do arm and shoulder exercises as directed to help prevent movement problems and stiffness. If a drainage tube was left in your breast, care for it as told by your health care provider. This information is not intended to replace advice given to you by your health care provider. Make sure you discuss any questions you have with your health care provider. Document Released: 05/08/2017 Document Revised: 06/30/2019 Document Reviewed: 05/08/2017 [employer] Patient Education 2020 [employer] Breast Biopsy, Care After These instructions give you information about caring for yourself after your procedure. Your doctormay also give you more specific instructions. Call your doctor if you have any problems or questions after your procedure. What can I expect after the procedure? After your procedure, it is common to have: Bruising on your breast. Numbness, tingling, or pain near your biopsy site. Follow these instructions at home: Medicines Take gvos-web-ruehbfg and prescription medicines only as told by your doctor. Do not drive for 24 hours if you were given a medicine to help you relax (sedative) during your procedure. Do not drink alcohol while taking pain medicine. Do not drive or use heavy machinery while taking prescription pain medicine. Biopsy site care Follow instructions from your doctor about how to take care of your cut from surgery (incision) or your puncture area. Make sure you: ? Wash your hands with soap and water before you change your bandage (dressing). If you cannot use soap and water, use hand pershing missile crewmember. ? Change your bandage as told by your doctor. ? Leave stitches (sutures), skin glue, or skin tape (adhesive strips) in place. They may need to stayin place for 2 weeks or longer. If tape strips get loose and curl up, you may trim the loose edges.Do not remove tape strips completely unless your doctor says it is okay. If you have stitches, keep them dry when you take a bath or a shower. Check your cut or puncture area every day for signs of infection. Check for: ? Redness, swelling, or pain. ? Fluid or blood. ? Warmth. ? Pus or a bad smell. Protect the biopsy area. Do not let the area get bumped. Activity If you had a cut during your procedure, avoid activities that could pull your cut open. These include: ? Stretching. ? Reaching over your head. ? Exercise. ? Sports. ? Lifting anything that weighs more than 3 lb (1.4 kg). Return to your normal activities as told by your doctor. Ask your doctor what activities are safe for you. Managing pain, stiffness, and swelling If told, put ice on the biopsy site to relieve swelling: Put ice in a plastic bag. Place a towel between your skin and the bag. Leave the ice on for 20 minutes, 2 3 times a day. General instructions Continue your normal diet. Wear a good support bra for as long as told by your doctor. Get checked for extra fluid around your lymph nodes (lymphedema) as often as told by your doctor. Keep all follow-up visits as told by your doctor. This is important. Contact a doctor if: You notice any of the following at the biopsy site: ? More redness, swelling, or pain. ? More fluid or blood coming from the site. ? The site feels warm to the touch. ? Pus or a bad smell coming from the site. ? The site breaks open after the stitches or skin tape strips have been removed. You have a rash. You have a fever. Get help right away if: You have more bleeding from the biopsy site. Get help right away if bleeding is more than a small spot. You have trouble breathing. You have red streaks around the biopsy site. Summary After your procedure, it is common to have bruising, numbness, tingling, or pain near the biopsy site. Do not drive or use heavy machinery while taking prescription pain medicine. Wear a good support bra for as long as told by your doctor. If you had a cut during your procedure, avoid activities that may pull the cut open. Ask your doctor what activities are safe for you. This information is not intended to replace advice given to you by your health care provider. Make sure you discuss any questions you have with your health care provider. Document Released: 01/05/2010 Document Revised: 08/28/2018 Document Reviewed: 08/28/2018 [employer] Patient Education 2020 [employer] RAFI SAME DAY SURGERY DISCHARGE INSTRUCTIONS PLEASE FOLLOW THE INSTRUCTIONS BELOW MARKED WITH AN X: __X_Regular Diet: Start with clear liquids, then soup and crackers. Gradually add other foods unless otherwise instructed by your surgeon __X_Drink extra fluids ACTIVTY: __X_Since you have had anesthetic, it would be advisable not to drive, drink alcohol, or make majordecisions over the next 24 hours. You may require more rest tonight and tomorrow __X_Do not drive vehicle while taking narcotics and as directed by your Surgeon ____Restrict activity as follows: ____Do not have sexual intercourse. Nothing in the vagina-No tampons or Douching ____No heavy lifting, pushing, or straining ____Elevate operative limb ____Ice as directed __X_Follow all written and verbal instructions given to you by your Doctor ____Other: BATHING/SHOWERING ____Sponge bathe until office visit. ____Sitting in tub of warm water may relieve discomfort ____May tub bathe ____May shower in 24-48 hours with clean linen unless otherwise instructed by your Doctor DRESSING: ____Keep operative area clean and dry ____Check the operative area for signs of bleeding. Apply pressure to the bleeding site if necessary. ____Change drip pad as needed ____Wear scrotal support for comfort WATCH FOR SIGNS OF INFECTION: (Usually appears 36-48 hours after surgery) Increased temperature (101 degrees Fahrenheit or higher) Redness or swelling Increased pain Foul odor or drainage If you have any questions, please call your doctor at the number listed on your follow-up instructions. Additional Information VACCINATE! IT SAVES LIVES! Members of the community who have not yet received the COVID-19 vaccine and would like to receive it can visit one of [facility] vaccine clinics. There are many vaccine clinic locations within the [facility]. For locations and available times, please visit https://[email or web address].[place].gov/. It is important to note that some COVID mobile vaccine clinics are held outdoors and may be canceled in rainy or stormy conditions. To learn more about pediatric vaccinations (ages 5-11), we invite you to visit the [facility] webpage. [email or web address]/[email or web address] learn more about the COVID-19 vaccine, we invite you to visit the CDC website for a list of frequently asked questions.https://www.cdc.gov/coronavirus/2019-ncov/vaccines/faq.html [employer] [facility] Patient Portal Access Instructions: Stay connected with your healthcare team and access your personal medical information anytime with the [facility] Patient Portal. Please follow the directions below to create your [employer] account: 1.Access the email account you provided upon registration to the hospital/physician office.2.Look for an invitation email from [facility].3.Open the email and access the invitation link: AcceptInvitation to [facility].4.Fill in the required zambrano to create your account. To access your account, visit [email or web address]. Click the blue button labeled "Access Patient Portal" and then log in with the username and password that you created in the steps above. You will be able to view your test results, lab results, a summary of your visits, upcoming appointments and more. There is also a convenient messaging option where you can send secure messages to your p rovider. In addition, you will have the ability to download any documents or summaries to your computer and/or send the information securely to a physician. Remember that your healthcare information is confidential, so carefully consider who you will allowto register on the [facility] for access to your information. You can also access the [facility] on the [place] [employer] jass. Simply click on "Patient Portal" and then log into your account. If you would like to receive a full copy of your medical records, please contact the [facility] Medical Records Department by calling [phone], Saturday through Saturday between 8 a.m. and 4:30 p.m. HOW TO SAFELY DISPOSE OF PRESCRIPTION MEDICATIONS Please use one of the following methods to safely dispose of your unused medications. 1.Use a drug disposal kit: the drug disposal pouch allows you to safely discard your old and unuseddrugs. Ask your nurse to give you one when you are discharged.2.Visit a local take-back location: Many local pharmacies and police departments have programs that collect old and unwanted prescriptiondrugs. Call your local pharmacy or go to http://[employer]/6L6Re8b to find one close to you.3.Make use of household items: Use cat litter or old coffee grounds to dispose medications if other options arenot available. Mix your drugs with these household products, seal them in an airtight container andthrow it into the garbage. Call [facility]: [phone] to be sure your drugs can be disposed of in this way. Some medicines may require a different approach.4.Never flush your medications down the toilet. IF YOU HAVE BEEN PRESCRIBED AN OPIOID FOR PAIN If you have been prescribed an opioid (such as hydrocodone, oxycodone or morphine), it is critical to understand the possible side effects and risks of opioid pain medications. Even when taken as directed, opioids can have several side effects including: Tolerance, meaning you might need to take more of a medication for the same pain relief. Nausea, vomiting and/or constipation. Sleepiness, dizziness, dry mouth, confusion, depression or itching. Physical dependence, meaning you have withdrawal symptoms when a medication is stopped, can develop within a few days. KNOW YOUR RESPONSIBILITIES It is important to know exactly how much and how often to take the opioid pain medications you are prescribed. Never take opioids in higher amounts or more often than prescribed. Do not combine opioids with alcohol or other drugs that cause drowsiness, such as benzodiazepines, also known as benzos, including diazepam and alprazolam, muscle relaxants or sleep aids. Never sell or share prescription opioids. This is illegal. Store opioids in a secure place and out of reach of others (including children, family, friends and visitors). The last page of this document has been signed and retained as a CHART COPY. Signatures Patient Education Materials Axillary Lymph Node Dissection, Care After Breast Biopsy, Care After, [id number] 1- SDS General Discharge Guidelines (12/07/2022)(CUSTOM) Medication Leaflets My discharge plan and instructions have been reviewed and explained to me and I,CARRIE HERBERT understand my current condition and have read and understand these discharge instructions. I have received a written copy of the plan/instructions. If I have questions, I am aware that I should contact my doctor. Patient/Building Dismantler Signature: Date/Time: Relationship to Patient: Witness Name/Signature: Date/Time: [id number] Anesthesiology Consult note Patient: CARRIE HERBERT Age: 63 years Sex: Female : 1960 Associated Diagnoses: None Author: YAIMA MAC MD Postoperative Information Post Operative Info: Post op day: Post Anesthesia Care Unit. Patient location: PACU. Assessment Postanesthesia assessment Vitals: Vital signs from flowsheet : Vital Signs 10/02/2023 13:22 EDT Heart Rate Monitored 93 bpm Respiratory Rate 16 br/min Systolic Blood Pressure Non-Invasive 139 mmHg Diastolic Blood Pressure Non-Invasive 63 mmHg Mean Arterial Pressure (NBP) 84 mmHg 10/02/2023 13:06 EDT Heart Rate Monitored 106 bpm HI Respiratory Rate 16 br/min Systolic Blood Pressure Non-Invasive 146 mmHg HI Diastolic Blood Pressure Non-Invasive 75 mmHg Mean Arterial Pressure (NBP) 93 mmHg 10/02/2023 12:51 EDT Temperature Temporal Artery 36.6 DegC Heart Rate Monitored 101 bpm HI Respiratory Rate 16 br/min Systolic Blood Pressure Non-Invasive 148 mmHg HI Diastolic Blood Pressure Non-Invasive 79 mmHg Mean Arterial Pressure (NBP) 96 mmHg 10/02/2023 12:46 EDT Systolic Blood Pressure Non-Invasive 136 mmHg mmHg Diastolic Blood Pressure Non-Invasive 84 mmHg mmHg 10/02/2023 12:45 EDT Respiratory Rate - Anes 0 br/min br/min 10/02/2023 12:43 EDT Systolic Blood Pressure Non-Invasive 133 mmHg mmHg Diastolic Blood Pressure Non-Invasive 77 mmHg mmHg 10/02/2023 12:40 EDT Respiratory Rate - Anes 6 br/min br/min 10/02/2023 12:35 EDT Respiratory Rate - Anes 28 br/min br/min Systolic Blood Pressure Non-Invasive 138 mmHg mmHg Diastolic Blood Pressure Non-Invasive 79 mmHg mmHg 10/02/2023 12:33 EDT Systolic Blood Pressure Non-Invasive 143 mmHg mmHg Diastolic Blood Pressure Non-Invasive 85 mmHg mmHg 10/02/2023 12:30 EDT Heart Rate Monitored 91 bpm bpm Respiratory Rate - Anes 6 br/min br/min 10/02/2023 12:29 EDT Systolic Blood Pressure Non-Invasive 83 mmHg mmHg Diastolic Blood Pressure Non-Invasive 48 mmHg mmHg 10/02/2023 12:26 EDT Systolic Blood Pressure Non-Invasive 96 mmHg mmHg Diastolic Blood Pressure Non-Invasive 55 mmHg mmHg 10/02/2023 12:25 EDT Temperature (Route Not Specified) 36.37 DegC DegC Heart Rate Monitored 67 bpm bpm Respiratory Rate - Anes 11 br/min br/min 10/02/2023 12:23 EDT Systolic Blood Pressure Non-Invasive 110 mmHg mmHg Diastolic Blood Pressure Non-Invasive 54 mmHg mmHg 10/02/2023 12:20 EDT Temperature (Route Not Specified) 36.3 DegC DegC Heart Rate Monitored 68 bpm bpm Respiratory Rate - Anes 10 br/min br/min Systolic Blood Pressure Non-Invasive 109 mmHg mmHg Diastolic Blood Pressure Non-Invasive 51 mmHg mmHg 10/02/2023 12:17 EDT Systolic Blood Pressure Non-Invasive 103 mmHg mmHg Diastolic Blood Pressure Non-Invasive 48 mmHg mmHg 10/02/2023 12:15 EDT Temperature (Route Not Specified) 36.19 DegC DegC Heart Rate Monitored 63 bpm bpm Respiratory Rate - Anes 8 br/min br/min 10/02/2023 12:14 EDT Systolic Blood Pressure Non-Invasive 97 mmHg mmHg Diastolic Blood Pressure Non-Invasive 53 mmHg mmHg 10/02/2023 12:11 EDT Systolic Blood Pressure Non-Invasive 105 mmHg mmHg Diastolic Blood Pressure Non-Invasive 54 mmHg mmHg 10/02/2023 12:10 EDT Temperature (Route Not Specified) 35.6 DegC DegC Heart Rate Monitored 64 bpm bpm Respiratory Rate - Anes 8 br/min br/min 10/02/2023 12:09 EDT Systolic Blood Pressure Non-Invasive 108 mmHg mmHg Diastolic Blood Pressure Non-Invasive 50 mmHg mmHg 10/02/2023 12:05 EDT Temperature (Route Not Specified) 35.96 DegC DegC Heart Rate Monitored 72 bpm bpm Respiratory Rate - Anes 10 br/min br/min Systolic Blood Pressure Non-Invasive 109 mmHg mmHg Diastolic Blood Pressure Non-Invasive 51 mmHg mmHg 10/02/2023 12:02 EDT Systolic Blood Pressure Non-Invasive 107 mmHg mmHg Diastolic Blood Pressure Non-Invasive 53 mmHg mmHg 10/02/2023 12:00 EDT Temperature (Route Not Specified) 36.62 DegC DegC Heart Rate Monitored 74 bpm bpm Respiratory Rate - Anes 12 br/min br/min 10/02/2023 11:59 EDT Systolic Blood Pressure Non-Invasive 97 mmHg mmHg Diastolic Blood Pressure Non-Invasive 57 mmHg mmHg 10/02/2023 11:56 EDT Systolic Blood Pressure Non-Invasive 89 mmHg mmHg Diastolic Blood Pressure Non-Invasive 54 mmHg mmHg 10/02/2023 11:55 EDT Temperature (Route Not Specified) 36.55 DegC DegC Heart Rate Monitored 73 bpm bpm Respiratory Rate - Anes 12 br/min br/min 10/02/2023 11:53 EDT Systolic Blood Pressure Non-Invasive 101 mmHg mmHg Diastolic Blood Pressure Non-Invasive 50 mmHg mmHg 10/02/2023 11:50 EDT Temperature (Route Not Specified) 36.47 DegC DegC Heart Rate Monitored 63 bpm bpm Respiratory Rate - Anes 12 br/min br/min Systolic Blood Pressure Non-Invasive 107 mmHg mmHg Diastolic Blood Pressure Non-Invasive 62 mmHg mmHg 10/02/2023 11:47 EDT Systolic Blood Pressure Non-Invasive 97 mmHg mmHg Diastolic Blood Pressure Non-Invasive 51 mmHg mmHg 10/02/2023 11:45 EDT Temperature (Route Not Specified) 35.69 DegC DegC Heart Rate Monitored 73 bpm bpm Respiratory Rate - Anes 12 br/min br/min 10/02/2023 11:44 EDT Systolic Blood Pressure Non-Invasive 100 mmHg mmHg Diastolic Blood Pressure Non-Invasive 52 mmHg mmHg 10/02/2023 11:41 EDT Systolic Blood Pressure Non-Invasive 103 mmHg mmHg Diastolic Blood Pressure Non-Invasive 54 mmHg mmHg 10/02/2023 11:40 EDT Temperature (Route Not Specified) 35.64 DegC DegC Heart Rate Monitored 69 bpm bpm Respiratory Rate - Anes 12 br/min br/min 10/02/2023 11:38 EDT Systolic Blood Pressure Non-Invasive 114 mmHg mmHg Diastolic Blood Pressure Non-Invasive 58 mmHg mmHg 10/02/2023 11:35 EDT Temperature (Route Not Specified) 35.66 DegC DegC Heart Rate Monitored 77 bpm bpm Respiratory Rate - Anes 12 br/min br/min Systolic Blood Pressure Non-Invasive 111 mmHg mmHg Diastolic Blood Pressure Non-Invasive 57 mmHg mmHg 10/02/2023 11:32 EDT Systolic Blood Pressure Non-Invasive 112 mmHg mmHg Diastolic Blood Pressure Non-Invasive 63 mmHg mmHg 10/02/2023 11:30 EDT Temperature (Route Not Specified) 36.38 DegC DegC Heart Rate Monitored 70 bpm bpm Respiratory Rate - Anes 12 br/min br/min 10/02/2023 11:29 EDT Systolic Blood Pressure Non-Invasive 101 mmHg mmHg Diastolic Blood Pressure Non-Invasive 49 mmHg mmHg 10/02/2023 11:26 EDT Systolic Blood Pressure Non-Invasive 99 mmHg mmHg Diastolic Blood Pressure Non-Invasive 61 mmHg mmHg 10/02/2023 11:25 EDT Temperature (Route Not Specified) 36.37 DegC DegC Heart Rate Monitored 72 bpm bpm Respiratory Rate - Anes 12 br/min br/min 10/02/2023 11:23 EDT Systolic Blood Pressure Non-Invasive 98 mmHg mmHg Diastolic Blood Pressure Non-Invasive 56 mmHg mmHg 10/02/2023 11:20 EDT Temperature (Route Not Specified) 36.28 DegC DegC Heart Rate Monitored 71 bpm bpm Respiratory Rate - Anes 12 br/min br/min Systolic Blood Pressure Non-Invasive 109 mmHg mmHg Diastolic Blood Pressure Non-Invasive 62 mmHg mmHg 10/02/2023 11:17 EDT Systolic Blood Pressure Non-Invasive 128 mmHg mmHg Diastolic Blood Pressure Non-Invasive 57 mmHg mmHg 10/02/2023 11:15 EDT Temperature (Route Not Specified) 36.24 DegC DegC Heart Rate Monitored 70 bpm bpm Respiratory Rate - Anes 12 br/min br/min 10/02/2023 11:14 EDT Systolic Blood Pressure Non-Invasive 107 mmHg mmHg Diastolic Blood Pressure Non-Invasive 60 mmHg mmHg 10/02/2023 11:11 EDT Systolic Blood Pressure Non-Invasive 114 mmHg mmHg Diastolic Blood Pressure Non-Invasive 63 mmHg mmHg 10/02/2023 11:10 EDT Temperature (Route Not Specified) 36.17 DegC DegC Heart Rate Monitored 70 bpm bpm Respiratory Rate - Anes 12 br/min br/min 10/02/2023 11:08 EDT Systolic Blood Pressure Non-Invasive 104 mmHg mmHg Diastolic Blood Pressure Non-Invasive 64 mmHg mmHg 10/02/2023 11:05 EDT Temperature (Route Not Specified) 36.13 DegC DegC Heart Rate Monitored 66 bpm bpm Respiratory Rate - Anes 12 br/min br/min Systolic Blood Pressure Non-Invasive 107 mmHg mmHg Diastolic Blood Pressure Non-Invasive 65 mmHg mmHg 10/02/2023 11:02 EDT Systolic Blood Pressure Non-Invasive 110 mmHg mmHg Diastolic Blood Pressure Non-Invasive 61 mmHg mmHg 10/02/2023 11:00 EDT Temperature (Route Not Specified) 36.12 DegC DegC Heart Rate Monitored 82 bpm bpm Respiratory Rate - Anes 12 br/min br/min 10/02/2023 10:59 EDT Systolic Blood Pressure Non-Invasive 106 mmHg mmHg Diastolic Blood Pressure Non-Invasive 58 mmHg mmHg 10/02/2023 10:56 EDT Systolic Blood Pressure Non-Invasive 117 mmHg mmHg Diastolic Blood Pressure Non-Invasive 64 mmHg mmHg 10/02/2023 10:55 EDT Temperature (Route Not Specified) 36.06 DegC DegC Heart Rate Monitored 86 bpm bpm Respiratory Rate - Anes 12 br/min br/min 10/02/2023 10:53 EDT Systolic Blood Pressure Non-Invasive 119 mmHg mmHg Diastolic Blood Pressure Non-Invasive 62 mmHg mmHg 10/02/2023 10:50 EDT Temperature (Route Not Specified) 36.04 DegC DegC Heart Rate Monitored 84 bpm bpm Respiratory Rate - Anes 12 br/min br/min Systolic Blood Pressure Non-Invasive 122 mmHg mmHg Diastolic Blood Pressure Non-Invasive 75 mmHg mmHg 10/02/2023 10:47 EDT Systolic Blood Pressure Non-Invasive 93 mmHg mmHg Diastolic Blood Pressure Non-Invasive 51 mmHg mmHg 10/02/2023 10:45 EDT Temperature (Route Not Specified) 36.11 DegC DegC Heart Rate Monitored 78 bpm bpm Respiratory Rate - Anes 12 br/min br/min 10/02/2023 10:44 EDT Systolic Blood Pressure Non-Invasive 95 mmHg mmHg Diastolic Blood Pressure Non-Invasive 59 mmHg mmHg 10/02/2023 10:41 EDT Systolic Blood Pressure Non-Invasive 112 mmHg mmHg Diastolic Blood Pressure Non-Invasive 68 mmHg mmHg 10/02/2023 10:40 EDT Temperature (Route Not Specified) 36.1 DegC DegC Heart Rate Monitored 91 bpm bpm Respiratory Rate - Anes 12 br/min br/min 10/02/2023 10:38 EDT Systolic Blood Pressure Non-Invasive 120 mmHg mmHg Diastolic Blood Pressure Non-Invasive 76 mmHg mmHg 10/02/2023 10:35 EDT Temperature (Route Not Specified) 36.11 DegC DegC Heart Rate Monitored 85 bpm bpm Respiratory Rate - Anes 12 br/min br/min Systolic Blood Pressure Non-Invasive 109 mmHg mmHg Diastolic Blood Pressure Non-Invasive 67 mmHg mmHg 10/02/2023 10:32 EDT Systolic Blood Pressure Non-Invasive 91 mmHg mmHg Diastolic Blood Pressure Non-Invasive 66 mmHg mmHg 10/02/2023 10:30 EDT Temperature (Route Not Specified) 36.12 DegC DegC Heart Rate Monitored 78 bpm bpm Respiratory Rate - Anes 12 br/min br/min 10/02/2023 10:29 EDT Systolic Blood Pressure Non-Invasive 99 mmHg mmHg Diastolic Blood Pressure Non-Invasive 68 mmHg mmHg 10/02/2023 10:26 EDT Systolic Blood Pressure Non-Invasive 52 mmHg mmHg Diastolic Blood Pressure Non-Invasive 38 mmHg mmHg 10/02/2023 10:25 EDT Temperature (Route Not Specified) 36.13 DegC DegC Heart Rate Monitored 88 bpm bpm Respiratory Rate - Anes 12 br/min br/min 10/02/2023 10:23 EDT Systolic Blood Pressure Non-Invasive 95 mmHg mmHg Diastolic Blood Pressure Non-Invasive 60 mmHg mmHg 10/02/2023 10:20 EDT Temperature (Route Not Specified) 35.91 DegC DegC Heart Rate Monitored 87 bpm bpm Respiratory Rate - Anes 12 br/min br/min Systolic Blood Pressure Non-Invasive 133 mmHg mmHg Diastolic Blood Pressure Non-Invasive 79 mmHg mmHg 10/02/2023 10:17 EDT Systolic Blood Pressure Non-Invasive 86 mmHg mmHg Diastolic Blood Pressure Non-Invasive 60 mmHg mmHg 10/02/2023 10:15 EDT Temperature (Route Not Specified) 35.71 DegC DegC Heart Rate Monitored 90 bpm bpm Respiratory Rate - Anes 12 br/min br/min 10/02/2023 10:14 EDT Systolic Blood Pressure Non-Invasive 90 mmHg mmHg Diastolic Blood Pressure Non-Invasive 59 mmHg mmHg 10/02/2023 10:11 EDT Systolic Blood Pressure Non-Invasive 97 mmHg mmHg Diastolic Blood Pressure Non-Invasive 61 mmHg mmHg 10/02/2023 10:10 EDT Temperature (Route Not Specified) 35.79 DegC DegC Heart Rate Monitored 81 bpm bpm Respiratory Rate - Anes 12 br/min br/min 10/02/2023 10:08 EDT Systolic Blood Pressure Non-Invasive 98 mmHg mmHg Diastolic Blood Pressure Non-Invasive 60 mmHg mmHg 10/02/2023 10:05 EDT Temperature (Route Not Specified) 36.2 DegC DegC Heart Rate Monitored 67 bpm bpm Respiratory Rate - Anes 11 br/min br/min Systolic Blood Pressure Non-Invasive 70 mmHg mmHg Diastolic Blood Pressure Non-Invasive 45 mmHg mmHg 10/02/2023 10:02 EDT Systolic Blood Pressure Non-Invasive 83 mmHg mmHg Diastolic Blood Pressure Non-Invasive 50 mmHg mmHg 10/02/2023 10:00 EDT Temperature (Route Not Specified) 36.31 DegC DegC Heart Rate Monitored 72 bpm bpm Respiratory Rate - Anes 11 br/min br/min 10/02/2023 9:59 EDT Systolic Blood Pressure Non-Invasive 93 mmHg mmHg Diastolic Blood Pressure Non-Invasive 76 mmHg mmHg 10/02/2023 9:56 EDT Systolic Blood Pressure Non-Invasive 69 mmHg mmHg Diastolic Blood Pressure Non-Invasive 40 mmHg mmHg 10/02/2023 9:55 EDT Heart Rate Monitored 58 bpm bpm Respiratory Rate - Anes 27 br/min br/min 10/02/2023 9:53 EDT Systolic Blood Pressure Non-Invasive 106 mmHg mmHg Diastolic Blood Pressure Non-Invasive 58 mmHg mmHg 10/02/2023 9:50 EDT Heart Rate Monitored 83 bpm bpm Respiratory Rate - Anes 11 br/min br/min 10/02/2023 9:46 EDT Systolic Blood Pressure Non-Invasive 135 mmHg mmHg Diastolic Blood Pressure Non-Invasive 59 mmHg mmHg 10/02/2023 9:45 EDT Respiratory Rate - Anes 0 br/min br/min 10/02/2023 7:22 EDT Temperature Temporal Artery 35.9 DegC Peripheral Pulse Rate 78 bpm Respiratory Rate 18 br/min Systolic Blood Pressure Non-Invasive 121 mmHg Diastolic Blood Pressure Non-Invasive 67 mmHg . Mental status: at preoperative baseline. Respiratory function: respirations are non-labored, stable. Respiratory support: none. CV function: stable. Cardiovascular support: none. Pain: satisfactory. Nausea status: satisfactory. Postoperative hydration status: within normal limits. Notes: Patient is sufficiently recovered from anesthesia to participate in the evaluation. No follow-up care needed. No complications post-anesthesia.. Digitally Signed by YAIMA MAC MD on 10/02/2023 01:52 PM [facility] [id number] Note ORIGINAL EXAMINATION: SENTINEL NODE 10/02/2023 8:40 am TECHNIQUE: 569 and 591 microcuries of Tc99 Lymphoseek was provided to DEBBIE MERINO for sentinel lymph node localization and injected in the left breast at 8:15 a.m. by Brandon Carmichael Patient was then taken to the OR for probe guided lymph node localization. HISTORY: [place] node localization for surgery. Breast cancer left upper outer quadrant. IMPRESSION: No images were acquired. Lymph nodes localized with probe in the OR. I have personally reviewed the images of this examination and agree with the resident's finding and interpretation. Interpreted by: Shirlene Mirza Preliminary Report By: Ashish Cunha Electronically signed By Shirlene Mirza Dictated Date: 10/02/2023 8:46:22 AM Prelim Date: 10/02/2023 8:54:44 AM Sign Date: 10/02/2023 8:54:44 AM Ordering Provider: DEBBIE [facility]07-10-2024 Anesthesiology Consult note Patient: CARRIE HERBERT Age: 63 years Sex: Female : 1960 Associated Diagnoses: None Author: ANITA DIEZ MD Preoperative Information Time of last food or liquid consumption: 10/02/2023 00:00:00 Anesthesia history Patient's history: negative. Family's history: negative. Health Status Allergies: Nonallergic Reactions (Selected) Severity Not Documented Bactrim- Diarrhea and stomach ache., Allergies (1) ActiveSeverityReaction BactrimStomach ache, Diarrhea Current medications: (Selected) Inpatient Medications Ordered Kefzol: 2 gram(s), 20 mL, 240 mL/hr, IV Push (INT), PREOP pharm LR 1,000 mL: 20 mL/hr, Intravenous ceFAZolin 2 gram(s) + Garamycin 160 m gram(s), 20 mL, mL/hr, Topical (INT), PREOP pharm lidocaine 1% preservative-free injectable solution: 2.5 mg, 0.25 mL, Intradermal, prep pharm Prescriptions Prescribed mupirocin 2% topical ointment: 1 jass, Topical, BID, Bilateral intranasal application twice daily x 5 days pre-surgery &/or as many days pre-surgery as possible., 22 gram(s), 0 Refill(s) Documented Medications Documented ALPRAZolam 0.5 mg oral tablet: 0.5 mg, 1 tab(s), Oral, TID, PRN: for anxiety, 0 Refill(s) Multiple Vitamins oral capsule: 1 cap(s), Oral, qAM, 0 Refill(s) PARoxetine 30 mg oral tablet: 30 mg, 1 tab(s), Oral, qAM, 30 tab(s), 0 Refill(s) Probiotic: 1 tab(s), Oral, qAM, 0 Refill(s) Vitamin D2 50 mcg (2000 intl units) oral capsule: 50 mcg, 1 cap(s), Oral, qAM, with food, 60 cap(s), 0 Refill(s) calcium (as calcium citrate) 315 mg oral tablet: 2 tab(s), Oral, qAM, 0 Refill(s), Medications (4) Active Scheduled: (3) ceFAZolin 2 gram(s) + gentamicin 160 mg 2 gram(s) 20 mL, Topical (INT), PREOP pharm ceFAZolin syringe 2 gram(s) 20 mL, IV Push (INT), PREOP pharm lidocaine 1% (MPF) 2 mL vial pf 2.5 mg 0.25 mL, Intradermal, prep pharm Continuous: (1) Lactated Ringers 1,000 mL 1,000 mL, Intravenous, 20 mL/hr PRN: (0) Problem list: Medical Breast mass, right (03/27/23) s/p US core bx benign, 6 mo f/u rec (September 2023) / SNOMED CT [id number] /Confirmed History of right breast cancer (1991, age 31) estrogen neg, partial mast, ALND, adjuv chemo, R, no endocrine / SNOMED CT [id number] / Confirmed History of breast implants approx 2001 breast augmentation, bilat retropectoral silicone / SNOMED CT [id number] / Confirmed 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 fat necrosis ([id number]): Onset in 2021 at 60 years. Comments: 09/23/2023 EDT 11:35 EMETERIO Peña RIGHT BREAST BIOPSY History of breast implants approx 2001 breast augmentation, bilat retropectoral silicone ([id number]) Comments: 09/23/2023 EDT 11:35 EMETERIO Peña IMPLANTS 2001 Family History: Procedure history: Phacoemulsification of cataract with intraocular lens implantation ([id number]) in 2019 at 59 Years. Comments: 09/23/2023 11:[address] - Retinal detachment ([id number]) in 2019 at 58 Years. History of bilateral breast implants ([id number]) in 2013 at 53 Years. Lumpectomy of right breast (5314586562) in 1991 at 31 Years. Colonoscopy (148323038). Esophagogastroduodenoscopy (032653093). H/O: tubal ligation (805798467). Social History: Social & Psychosocial Habits Alcohol 10/02/2023 Use: Never Substance Abuse 10/02/2023 Use: Never Tobacco 10/02/2023 Tobacco Use: Smoker, current status un, only smoked for 2 years when she was in her 20's Type: Cigarettes Home/Environment 10/02/2023 Living situation: Home/Independent Safe place to go: Yes Domestic Concerns None Lives In 2nd floor bathroom, 2nd floor bedroom, Multilevel home Current Home Treatments None Special Services and Community Resources None Spouse Name UBALDO Marital Status of Patient if Patient Independent Adult: Nutrition/Health 10/02/2023 Type of diet: Regular Caffeine intake amount: DECAF Appetite Good Eating Difficulties None Sexual 10/02/2023 Sexually active: Yes Physical Examination Vital Signs 10/02/2023 7:22 EDT Temperature Temporal Artery 35.9 DegC Peripheral Pulse Rate 78 bpm Respiratory Rate 18 br/min Systolic Blood Pressure Non-Invasive 121 mmHg Diastolic Blood Pressure Non-Invasive 67 mmHg Vital Signs (last 24 hrs) Last Charted Temp Bvxehhnb81.9 DegC (OCT 01 07:22) NHT946 mmHg (OCT 01:) DBP67 mmHg (OCT 01:) BMI19.08 (OCT 01 07:31) Measurements from flowsheet : Measurements 10/02/2023 7:31 EDT Body Mass Index 19.08 kg/m2 10/02/2023 7:22 EDT Height 165.1 cm Height in inches 65 inch(es) Admission Weight 52.0 kg Weight Lbs 114.4 lb Weight Method Actual Jolon Body Weight 57.00 kg Type of Scale Used Bed scale Admission Body Mass Index 19.08 m2 Pain assessment: Pain Assessment 10/02/2023 7:22 EDT Primary Pain Intensity 0 Pain Scale Type 0-10 Pain scale . General: Alert and oriented, No acute distress. Airway: Mallampati classification: II (soft palate, fauces, uvula visible). Dentition Evaluation: Own teeth. Respiratory: Lungs are clear to auscultation. Cardiovascular: Normal rate. Heart Sounds: Normal. Review / Management Results review: No qualifying data available , Lab results 10/02/2023 8:15 EDT Procedure Note [place] Node Injectionm - LEFT breast 10/02/2023 7:49 EDT SN - Preop - CTm Pt Ready for OR/Proced 10/02/2023 7:49 10/02/2023 7:45 EDT Antecubital Right 10/02/2023 22 gauge Peripheral IV Activity: Unsuccessful Peripheral IV Number of Attempts: 2 10/02/2023 7:31 EDT Designated Person #1 We May Share KAROLINA CONNER [phone] Designated Person #1 Relationship Spouse Designated Person #2 We May Share KAROLINA Fenton [phone] Designated Person #2 Relationship Friend Privacy Restrictions Requested None Body Mass Index 19.08 kg/m2 Status No, per patient Sensory Deficits None Sleep Apnea Snore Yes Sleep Apnea Tired No Sleep Apnea Obstruction Yes Sleep Apnea Pressure No Sleep Apnea BMI No Sleep Apnea Age Yes Sleep Apnea Neck No Sleep Apnea Gender No Sleep Apnea Score 3 Diagnosed With Sleep Apnea No Advanced Directives Yes Advance Directive Type 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[employer], [place] Declaration (Living Will) Advance Directive Location Family instructed to bring in copy Infectious Disease Symptoms Patient states no symptoms Infectious Disease Recent Exposure No Alcohol and Drug Use No Employee of Institutional Living No Health Care Employee No History of Exposure to TB No History of Positive Chest X-Ray for TB No History of Positive TB Skin Test No Homeless No Known Immunosuppression No Recent Immigrant No Resident of Institutional Living No Bloody Sputum No Fatigue No Fever No Loss of Appetite No Night Sweats No Persistent Cough > 3 Weeks No Weight Loss No Surgery Scheduled On Date/Time 10/02/2023 9:30 Patient Aware Date/Time Of Surgery Yes Arrival Time the Day of Surgery 10/02/2023 6:30 Patient Aware of Arrival Time Yes Pre-Op Patient Education NPO after midnight, No makeup, No jewelry, Responsible Alliance Party, Aware of surgery location, 2 bottles CHG wash with instructions given, Instructed to take ordered medications, Instructed to bring home medications, VTE prevention handout given, SSI prevention handout given, MRSA protocol education provided SN - Preprocedure Comments Spoke with patient, Verbalizes/Nonverbally indicates understanding Barriers to Learning None evident Teaching Method Explanation, Printed materials Preferred Spoken Language Citizen Of [place] Preferred Written Language Citizen [place] Teaching Evaluation Verbalizes/Nonverbally indicates understanding Safety Brochure Information Reviewed Yes [facility] Video Viewed Yes Information Given by Patient Patient's Current Physicians Patient's Current Physicians Discharge To, Anticipated Home with family care Prev Test Positive/Diagnosis w/COVID-19 Yes Previous COVID-19 Positive Date 2020 Current Quarantine/Isolated any Illness No Any Contact with Sick Animals/Birds No Traveled Anywhere in Last 30 Days No Lost Weight Unintentionally Recently No Eat Poorly Due to Decreased Appetite No Total MST Score 0 No Personal Devices, Patient Valuables Contact lenses Anesthesia/Transfusions Prior anesthesia Admission Note-Nursing Same Day Patient History 10/02/2023 7:27 EDT Individuals Taught Patient, Friend Learning Readiness Willing to learn Barriers to Learning None evident Teaching Method Explanation, Printed materials Preferred Spoken Language Citizen [place] Preferred Written Language [place] Family/Caregiver Prefer Spoken Language [place] Family/Caregiver Prefer Written Language Citizen [place] Surgical Site Infection Prevention SSI FAQ provided, Hand hygiene Infection Prevention Teaching Evaluation Verbalizes/Nonverbally indicates understanding Pain Medication Education Pain scale Pain Teaching Evaluation Verbalizes/Nonverbally indicates understanding Pre Procedure/Surgery Education Appropriate expectations Procedure/Surgical Teaching Evaluation Verbalizes/Nonverbally indicates understanding Safety Measures Education Fall prevention, Call light use Safety Teaching Evaluation Verbalizes/Nonverbally indicates understanding 10/02/2023 7:22 EDT SN - Preop - CTm Pt in SDS Room 10/02/2023 7:21 10/02/2023 7:22 EDT Height 165.1 cm Height in inches 65 inch(es) Admission Weight 52.0 kg Weight Lbs 114.4 lb Weight Method Actual Jolon Body Weight 57.00 kg Type of Scale Used Bed scale Admission Body Mass Index 19.08 m2 Temperature Temporal Artery 35.9 DegC Peripheral Pulse Rate 78 bpm Respiratory Rate 18 br/min Systolic Blood Pressure Non-Invasive 121 mmHg Diastolic Blood Pressure Non-Invasive 67 mmHg Primary Pain Intensity 0 Pain Scale Type 0-10 Pain scale Heart Rhythm Regular Respirations Unlabored All Lobes Breath Sounds Clear, Equal Oxygen Therapy Room air Oxygen Saturation 97 % Abdomen Description Non-distended, Soft Abdomen Palpation Non-Tender Urinary Elimination Voiding, no difficulties Skin Temperature Warm Skin Description [place], Dry Skin Integrity Intact Neurological Symptoms Patient denies Level of Consciousness Alert Violence Risk Confused No Violence Risk Irritable No Violence Risk Boisterous No Violence Risk Verbal Threats No Violence Risk Physical Threats No Violence Risk Attacking Objects No Violence Risk Predictor Score 0 Violence Risk Intervention None Violence Risk Current Interventions None Affect/Behavior Appropriate, Calm, Cooperative Orientation Oriented x 4 Allergies Yes Consent Form Signed Yes Patient Dressed In Hospital gown CHG Preoperative Wash/Wipe Night before procedure, Day of procedure, Site specific wipe Non-CHG Preoperative Shampoo Not applicable Preop Nasal Swab Povidone-Iodine CHG Skin Prep Completed for Eligible Surgery History & Physical On Chart Yes Obstructive Sleep Apnea Assess Completed Yes MRSA/MSSA Protocol Yes Belongings At Bedside Bra, Cell phone, Pants, Purse, Shirt, Shoes, Undergarments Assistive Device None Activity Status ADL Awake, Resting NPO Status Maintained Standard Safety ID band on, Allergy Band on, Call device within reach, Bed in low position, Wheels locked, Upper/Half-Length side-rails up, Phone within reach, personal items within reach, Visitor atbedside Allergy Band on and Verified Yes Patient ID Band on and Verified Yes Implants Verified Yes Pacemaker/AICD Verified No Site Verified by Patient/Family Yes Last Fluid Intake 10/01/2023 22:30 Last Food Intake 10/01/2023 21:45 Last Void 10/02/2023 6:00 10/01/2023 13:23 EDT Surgery Scheduled On Date/Time 10/02/2023 9:30 Patient Aware Date/Time Of Surgery Yes Arrival Time the Day of Surgery 10/02/2023 6:30 Patient Aware of Arrival Time Yes Pre-Op Patient Education NPO after midnight, No makeup, No jewelry, Responsible Alliance Party, Aware of surgery location, 2 bottles CHG wash with instructions given, Instructed to take ordered medications, Instructed to bring home medications, VTE prevention handout given, SSI prevention handout given, MRSA protocol education provided (Modified) Admission Note-Nursing Patient History PreTest (Modified) . Assessment and Plan [employer] Society of Anesthesiologists (ASA) physical status classification: Class III. Anesthetic Preoperative Plan Anesthetic technique: General. Maintenance airway: Oral endotracheal tube. Risks discussed: nausea, vomiting, headache, sore throat, dental injury, hypotension, allergic reaction, serious complications. Informed consent: signed by patient. Notes: Metastatic breast CA; VILMA, Ms. Herbert was seen and examined by Anita funez MD. The medical record was reviewed. Consultations, lab results , radiographic results and cardiovascular studies examined and noted. Anesthesia was explained in detail and questions were invited and answered. We will proceed as outlined in the plan above.. Digitally Signed by ANITA DIEZ MD on 10/02/2023 08:33 AM Digitally Signed by ANITA DIEZ MD on 10/02/2023 08:56 AM [id number] Procedure note IR Brief Post Procedure Note Preprocedure Dx: LEFT breast cancer Post Procedure Dx: Same Procedure: Lymphoseek injection - LEFT breast Anesthesia: Freeze spray EBL: None Complications: None Status: Unchanged Findings: 1. Successful sentinel node injection x 2 in the upper and outer micaela-areolar distribution of the LEFT breast at 0809. Plan: 1. Sent to Same Day Surgery Full report to follow. Farheen Carmichael PA-C Interventional Radiology Pager: [phone] IR dept: [id number] Available on [employer] Digitally Signed by FARHEEN CARMICHAEL PA-C on 10/02/2023 08:15 AM [facility] [id number] Telephone encounter Note* Telephone Encounter - Brielle Mcbride LPN - 09/16/2023 9:14 AM EDT Patient is aware she will not have any further treatments until after surgery if needed. Brielle Mcbride LPN [facility]06-24-2024 Miscellaneous Notes* Telephone Encounter - Brielle Mcbride LPN - 09/16/2023 9:14 AM EDT Patient is aware she will not have any further treatments until after surgery if needed. Brielle Mcbride LPN * Telephone Encounter - Thelma Vitale - 09/12/2023 12:15 PM EDT Patient called stating she was informed that she was finished with treatment. Please advise on upcoming appointments. [facility] Telephone encounter Note * Telephone Encounter - Thelma Vitale - 09/12/2023 12:15 PM EDT Patient called stating she was informed that she was finished with treatment. Please advise on upcoming appointments. [facility] Work Phone: 1(461) 508-418906-20-2024 Telephone encounter Note* Telephone Encounter - Thelma Vitale - 09/12/2023 12:13 PM EDT Patient called to inform that she is having surgery on 10/03 [facility] Work Phone: 1(359) 284-320906-20-2024 Miscellaneous Notes* Telephone Encounter - Thelma Vitale - 09/12/2023 12:13 PM EDT Patient called to inform that she is having surgery on 10/03 * Telephone Encounter - Brielle Mcbride LPN - 09/12/2023 9:16 AM EDT Faxed to Dr. Merino's office. Brielle Mcbride LPN * Telephone Encounter - Thelma Vitale - 09/12/2023 9:[address] Merino's office called stating patient had genetic testing done and they would like results faxed to [phone]. Patient will be in office today. [facility]06[facility] Telephone encounter Note * Telephone Encounter - Breille Mcbride LPN - 09/12/2023 9:16 AM EDT Faxed to Dr. Merino's office. Brielle Mcbride LPN [facility]06-20-2024 Telephone encounter Note* Telephone Encounter - Thelma Vitale - 09/12/2023 9:[address] Merino's office called stating patient had genetic testing done and they would like results faxed to [phone]. Patient will be in office today. [facility]06-14-2024 Telephone encounter Note* Telephone Encounter - Brielle Mcbride LPN - 09/06/2023 3:19 PM EDT Patient is scheduled with Dr. Berumen 09/12/2023. Brielle Mcbride LPN [facility]06-14-2024 Miscellaneous Notes* Telephone Encounter - Brielle Mcbride LPN - 09/06/2023 3:19 PM EDT Patient is scheduled with Dr. Berumen 09/12/2023. Brielle Mcbride LPN * Telephone Encounter - Kathie Adame LPN - 09/05/2023 8:19 AM EDT Spoke with pt. Informed she would need to be referred to Dr. Berumen, given phone number to contact . If a referral is needed pt. Will call and let us know. Kathie Adame LPN * Telephone Encounter - Hellen Zhu DO - 09/04/2023 5:[address] Christina let me know her insurance will not cover surgery at [place] or any of the sites that she does surgery. Patient will need to make an appointment with Dr. Debbie Merino (or if faster we can make referral). She is at [facility] in [place] and is apparently in network. Hellen Zhu DO documented in [facility] encounterMer[facility]06-[facility]-2024 Telephone encounter Note * Telephone Encounter - Brielle Mcbride LPN - 09/06/2023 2:57 PM EDT PET scan results placed in Dr. Zhu's mailbox for review. A copy was also sent to scanning. Images requested. Brielle Mcbride LPN Patient is aware of PET scan results. Patient is scheduled to see Dr. Merino 09/12/2023. A copy of the PET scan results was faxed to Dr. Merino's office. Brielle Mcbride LPN [facility]06-14-2024 Miscellaneous Notes* Telephone Encounter - Brielle Mcbride LPN - 09/06/2023 2:57 PM EDT PET scan results placed in Dr. Zhu's mailbox for review. A copy was also sent to scanning. Images requested. Brielle Mcbride LPN Patient is aware of PET scan results. Patient is scheduled to see Dr. Merino 09/12/2023. A copy of the PET scan results was faxed to Dr. Merino's office. Brielle Mcbride LPN * Telephone Encounter - Thelma Vitale - 09/06/2023 2:31 PM EDT Patient is calling for pet scan results from [facility] on documented in this encounterMer[facility]06-[facility]-2024 Telephone encounter Note * Telephone Encounter - Thelma Vitale - 09/06/2023 2:31 PM EDT Patient is calling for pet scan results from [facility] on [facility] Work Phone: 1(286) 786-147806-13-2024 Telephone encounter Note* Telephone Encounter - Keila Christina DO - 09/05/2023 11:13 AM EDT Called to follow up regarding scheduling surgery. She spoke with a [facility] financial member last week. Unfortunately her insurance does not cover care at [facility]. She was given the cost for out of pocket surgery. She does not wish to pay this. She was given the contact information for Dr. Debbie Merino who is a breast surgeon at [facility]. All questions were answered. Keila Christina DO Breast Surgeon [facility]06-13-2024 Miscellaneous Notes* Telephone Encounter - Keila Christina DO - 09/05/2023 11:13 AM EDT Called to follow up regarding scheduling surgery. She spoke with a [facility] financial member last week. Unfortunately her insurance does not cover care at [facility]. She was given the cost for out of pocket surgery. She does not wish to pay this. She was given the contact information for Dr. Debbie Merino who is a breast surgeon at [facility]. All questions were answered. Keila Christina DO Breast Surgeon documented in this encounterMer[facility]06-13-2024 Telephone encounter Note * Telephone Encounter - Kathie Adame LPN - 09/05/2023 8:19 AM EDT Spoke with pt. Informed she would need to be referred to Dr. Berumen, given phone number to contact . If a referral is needed pt. Will call and let us know. Kathie Adame LPN [facility]06-12-2024 Telephone encounter Note* Telephone Encounter - Hellen Zhu DO - 09/04/2023 5:[address] Christina let me know her insurance will not cover surgery at [place] or any of the sites that she does surgery. Patient will need to make an appointment with Dr. Debbie Merino (or if faster we can make referral). She is at [facility] in [place] and is apparently in network. Hellen Zhu DO [facility]06-06-2024 History of Present illness Narrative* Hellen Zhu DO - 08/29/2023 12:49 PM EDT Oncologic problem(s): 1) cTx cN2a Mx ER/VA negative, HER2 negative grade 3 clinical stage IIIC invasive mammary carcinomaof the left breast. HPI: The patient is a 63 yo female with PMH as outlined below. [...] tissue involved by metastatic mammary carcinoma (provisional [place] grade 3). The carcinoma cells express cytokeratin AE1/AE3, GATA3, TRPS 1, and SOX10, and are negative for PAX8, TTF-1, and CDX2, supporting mammary origin. Breast biomarker studies have been requested and results will be reported separately in a linked report. 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 Diagnosed with lymphocytic colitis about 3 years ago. Abdominal pain/diarrhea. Treated with probiotic and magnesium supplement. Had MRI brain and PET scan at [facility] on 04/09. MRI reported with LEFT and RIGHT transposed--I dictated correct side below. MRI revealed a 1.4 x 1.0 x 0.8 cm enhancing mass in the upper outer quadrant of the LEFT breast located 2.3 cm from the nipple along the 1:00 axis. The mass is 1.9 cm from the underlying pectoralis and 1.1 cm from the skin surface. No additional abnormal enhancement was observed. There were multiple pathologically enlarged right axillary lymph nodes, at least 3 of which were included within the pwrnh-eb-coaf measuring up to 2.8 cm. No internal mammary lymphadenopathy. Postlumpectomy changes were noted in the upper inner quadrant of the RIGHT breast. There was a 4 to5 mm focus of progressive enhancement along the superior medial aspect of the lumpectomy site whichwas nonspecific. No axillary adenopathy was noted. No internal mammary adenopathy was noted. A second look ultrasound of the focus of progressive enhancement in the left breast was recommended. Current therapy: 1) Paclitaxel and carboplatin along with pembrolizumab to be followed by pembrolizumab with AC or EC. Neutropenic on day 8, cycle #2. Treatment deferred. On return 05/30, still neutropenic. Treatment deferred. Received Neulasta on 06/02. Ultrasound-guided biopsy of right and left breast lesions on 04/24/2023. Pathology: Left breast at 1 o'clock, 4 cm from the nipple, core biopsy: - INVASIVE DUCTAL CARCINOMA, POORLY DIFFERENTIATED. - Angiolymphatic invasion present. - See comment. Estrogen receptors: NEGATIVE (0) Progesterone receptors: NEGATIVE (0) HER2/patricia: NEGATIVE (0) Right breast at 1 o'clock, 4 cm from the nipple, core biopsy: - Inflamed fibroadipose tissue with hemorrhage, stromal fibroelastosis and fat necrosis. - No malignancy identified. - See comment. Presents for ongoing oncologic management. Interim history: Received cycle #1 AC with pembro. Tolerated well. Feels well and has no complaints. No symptoms of cardiomyopathy. PAST MEDICAL HISTORY Diagnosis Date Condyloma acuminatum 03/25/1983 no history of recurrance since treatment COVID-19 09/2021 Lymphocytic colitis Malignant neoplasm of left breast in female, estrogen receptor negative (HCC) 04/12/2023 Malignant neoplasm of upper-outer quadrant of female breast (HCC) 05/24/1991 breast cancer treated with chemo and radiation Mass of axilla, left 03/21/2023 Mental disorder Rectal bleeding Unspecified constipation 03/25/2004 [...] torn retina repair REMV CATARACT EXTRACAP,INSERT LENS US BREAST NEEDLE CORE BIOPSY LT Left 02/2023 LN bx ALLERGIES Allergen Reactions Bactrim [Sulfametho* GI Upset Current Outpatient Medications Medication Sig acetaminophen (TYLENOL) 325 mg tablet Take 650 mg by mouth. Magnesium Oxide 500 mg cap Take by mouth. PRN Lactobacillus acidophilus (PROBIOTIC) 10 billion cell cap Take 1 capsule by mouth once daily. lidocaine-prilocaine (EMLA) 2.5-2.5 % cream Apply 60 minutes prior to accessing port. cimetidine (TAGAMET ORAL) Take by mouth as needed. cholecalciferol, vitamin D3, (VITAMIN D3 ORAL) Take 1,000 Units by mouth once daily. CALCIUM ORAL Take 800 mg by mouth once daily. amino acids/multivitamin (MULTIVITAMIN-AMINO ACIDS ORAL) Take 1 tablet by mouth once daily. No amino acids PAXIL 30 MG TAB Take 30 mg by mouth once daily. No current facility-administered medications for this visit. Social History Tobacco Use Smoking status: Former Years: 1.5 Types: Cigarettes Quit date: 08/24/1983 Years since quittin.0 Smokeless tobacco: Never Tobacco comments: in her early 20's, none now Vaping Use Vaping Use: Never used Substance Use Topics Alcohol use: No Drug use: No Family History Problem Relation Age of Onset other (constipation) Mother other (atrial fib) Father Hypertension Maternal Grandmother Aneurysm Maternal Grandmother brain aneurysm age 64 No Known Problems Maternal Grandfather Stroke Paternal Grandmother two light strokes 74 year of age Diabetes Paternal Grandfather Diabetes Other GRANDFATHER No family h/o breast cancer or other cancer. Has a brother. OBSTETRIC RELATED HISTORY: P0 History Breast Feeding: No. Age at of First Child: N/A. Age at Onset of Menses: 9 years of age. Age at Menopause: Early 40s (chemotherapy) years of age. Ovaries: Both intact. Uterus: Intact Exogenous Hormone Use/HRT: No. Oral Contraceptives: Age [age]. Tubal ligation age 31. ROS: Constitutional: No fever. No drenching night sweats. Normal appetite. No unexplained weight loss. No significant fatigue. Neuro: No recent AMARO, vertigo, dizziness or imbalance. No symptoms of sensory neuropathy. HEENT: No recent change in voice, vision or hearing. Loss of taste about 3-4 months. Can smell fine. Resp: No cough, wheeze of hemoptysis. No shortness of breath at rest. No ORELLANA. CVS: No exertional chest pain, PND or orthopnea. No extremity swelling/edema. No symptoms of claudication. No painful or tender varicose veins. GI: No dysphagia or odynophagia. No reflux, n/v, change in bowel habits. No abdominal pain, bloating or distension. No black or bloody stools. : No dysuria or gross hematuria. No symptoms of bladder outlet obstruction. Endo: No hot flashes. No polyuria or polydipsia. No heat or cold intolerance. Musculoskeletal: No bone, back, joint and muscular pain. Derm: No current rash. No history of jaundice. No diffuse pruritis. Heme: No unusual bleeding and unexplained bruising. Psych: Normal mood. PHYSICAL EXAM: Vitals: Blood pressure 137/67, pulse 77, temperature 37.1 C (98.7 F), weight 54.9 kg (121 lb 0.5 oz), last menstrual period 12/30/2007, SpO2 99%. Well-appearing and in no acute distress. EYES: Sclerae are anicteric bilaterally. LYMPHATIC: The left axillary LN remains mobile and unchanged in size. RESPIRATORY: Inspiratory breath sounds are of normal intensity in all zambrano. No rales, wheezes or rhonchi. Expiratory phase is normal. CARDIOVASCULAR: Rhythm is regular. Normal intensity S1/S2. There is no gallop or murmur. BREAST: Deferred today. ABDOMEN: The abdomen is nondistended. No splenomegaly or hepatomegaly. No tenderness. Extremities: No swelling or edema. SKIN: No jaundice. 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 -cTx cN2a Mx ER/VA negative, HER2 negative grade 3 clinical stage IIIC invasive mammary carcinoma of the left breast. 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 -No family history of breast, gynecologic or other malignancy. -Genetic testing normal. -Tolerating treatment symptomatically well with no symptomatic side effect now. -Cycles 2-4 AC on hold due to risk of CM and response on MRI following carbo/paclitaxel/pembro. -Awaiting on insurance clearance for surgery. Plan: -Okay for pembrolizumab tomorrow. -Potential for completion AC adjuvant pending final pathology. Portions of this documentation were copied and pasted from previous office visit notes in order to provide a cohesive continuity of the history. The note has been reviewed and edited and updated as necessary. I spent a total of 15 minutes on the date of the service which included preparing to see the patient, [id number] patient care, completing clinical documentation, obtaining and/or reviewing separately obtained history, performing a medically appropriate examination, counseling and educating the pat ient/family/caregiver, ordering medications, tests, or procedures, and communicating results to thepatient/family/caregiver. Hellen Zhu DO documented in this encounterMer[facility]06-[facility] Nurse Note* Kathie Adame LPN - 08/29/2023 11:33 AM EDT Est. Pt, discuss recent labs, tx tomorrow Kathie Adame LPN [facility]06-[facility] Nurse Note* Kathie Adame LPN - 08/29/2023 11:33 AM EDT Est. Pt, discuss recent labs, tx tomorrow Kathie Adame LPN documented in this encounterMer[facility]05-30-2024 Telephone encounter Note * Telephone Encounter - Keila Mace - 08/22/2023 2:48 PM EDT Spoke with patient and with [facility]. Patient is scheduled for 09/03/23 with a 7:45 arrival time for an 8:[address] Orders and other documentation faxed to [facility].Fax confirmation scanned into [employer]. Keila Mace [facility]05-30-2024 Miscellaneous Notes* Telephone Encounter - Keila Mace - 08/22/2023 2:48 PM EDT Spoke with patient and with [facility]. Patient is scheduled for 09/03/23 with a 7:45 arrival time for an 8:[address] Orders and other documentation faxed to [facility].Fax confirmation scanned into [employer]. Keila Mace * Telephone Encounter - Hellen Zhu DO - 08/22/2023 1:05 PM EDT Patient discussed with Dr. Christina who is still working on insurance coverage for surgery. In the meantime, need follow up PET at [facility] to help assess response of axillary LNs to neoadjuvant therapy. Dr. Noland is still an out of network provider. Please schedule as soon as able. Hellen Zhu DO documented in this encounterMercy [facility]05-30-2024 Telephone encounter Note * Telephone Encounter - Hellen Zhu DO - 08/22/2023 1:05 PM EDT Patient discussed with Dr. Christina who is still working on insurance coverage for surgery. In the meantime, need follow up PET at [facility] to help assess response of axillary LNs to neoadjuvant therapy. Dr. Noland is still an out of network provider. Please schedule as soon as able. Hellen Zhu DO [facility] History of Present illness Narrative* Keila Christina DO - 08/22/2023 11:30 AM EDT REASON FOR TODAY'S VISIT: Patient presents with: Established Patient: Regroup S/p neoadjuvant chemotherapy HISTORY of PRESENT ILLNESS: Carrie Herbert is 63 year old female who presented 02/2023 with a LEFT breast.1.4 cm IDC @ 1:00, 2 cm FN, metastasized to her axillary lymph nodes (bx clip placed in LN per report). LN extendedto level 2 (sub pec) ER-VA-HER2- [id number] History of RIGHT breast cancer, diagnosed at age 31, s/p partial mastectomy with axillary dissection, adjuvant chemotherapy (AC x4?) and radiation. Reports LN were negative (5-9 LN removed) and no endocrine therapy was recommended. S/p breast augmentation, placement of bilateral retropectoral silicone implants, about 10 yrs afterher lumpectomy surgery. LEFT bx (Q clip in breast). Outside report states clip placed in axilla - no images have shown a clip? RIGHT breast bx (Q clip and open coil clip - benign) now has 2 clips here She is currently undergoing neoadjuvant treatments under the casrof Dr. Zhu (Medical Oncologist) with her last treatment scheduled for 07/12/23 Has been receiving Carboplatin/paclitaxel/pembrolizumab. States she last chemo was July 11. She underwent a Breast MRI to check for response to treatment on 07/17/2023. Diagnostic mammogram was performed earlier today. She is her to discuss the results and her surgical options. Genetic testing multi-cancer panel through [facility] was negative for a pathogenic variant. 05/2023 ROS: GENERAL: No weight loss, malaise or fevers HEENT: Negative for frequent or significant headaches, No changes in hearing or vision RESPIRATORY: Negative for cough, wheezing, or shortness of breath CARDIOVASCULAR: Negative for chest pain, leg swelling, or heart palpitations MUSCULOSKELETAL: Negative for joint pain or swelling, back pain or muscle pain, no upper extremity swelling or lymphedema ABD: no abdominal pain INTEGUMENTARY: Denies Scleroderma or Lupus. Denies chronic skin conditions. BREASTS:She denies any new palpable breast masses, skin changes, nipple discharge, nipple retraction, breast pain or masses in her axilla. All other reviewed and negative other than HPI. States she has tolerated chemo overall well IMAGING: DATE OF EXAM: Jul 17 2023 11:05AM MRI BILATERAL BREASTS WITHOUT AND WITH CONTRAST Clinical Statement: Malignant neoplasm of overlapping sites left breast, history of prior right breast cancer FINDINGS: The breasts are comprised of scattered fibroglandular elements. There are bilateral retropectoral saline implants. An irregular mass in the upper inner quadrant right breast middle depth measures approximately 2.6 x 1.3 x 1.1 cm and contains 2 biopsy marking clips. Recent pathology demonstrated benign inflamed fibroadipose tissue with hemorrhage, stromal fibroelastosis and fat necrosis. No malignancy identified. In the left breast, there is magnetic susceptibility artifact in the upper outer quadrant anterior depth related to biopsy clip. This corresponds with biopsy-proven malignancy. No residual measurable mass identified. There is a punctate focus of enhancement seen only on subtraction images measuring 2 to 3 mm in greatest dimension. No new mass. There is persistent but improved left axillary adenopathy with the largest residual lymph node measuring 1 cm in short axis. There is diffusely mottled marrow signal throughout the visualized osseous structures, most apparent within the sternum. 1. No residual measurable mass in the upper outer quadrant anterior depth left breast at site of biopsy-proven malignancy. There is a punctate 2 to 3 mm focus of enhancement within this region. 2. Persistent but improved left axillary adenopathy. 3. Diffusely abnormal marrow signal, most apparent within the sternum. No discrete osseous lesions or abnormal activity seen on PET/CT 04/09/2023. Consider correlation with bone scan. BILATERAL DIGITAL DIAGNOSTIC MAMMOGRAM TOMOSYNTHESIS WITH CAD: 08/20/2023 HISTORY: Multiple Diagnoses/follow up post bilateral US biopsies/ /priors available for comparison Multiple Diagnoses. RESULT: TECHNIQUE: The study was acquired using full field digital technology and interpreted from soft copy. Digital Breast Tomosynthesis (DBT) images were obtained and used to assist in the interpretation of this examination. Current study was also evaluated with a Computer Aided Detection (CAD). Comparison is made to exams dated: 04/24/2023 mammogram - [facility], 04/17/2023 mammogram - [facility], 04/17/2023 mammogram - [facility], and 10/09/2021 mammogram - [facility]. The breasts are almost entirely fatty. There are stable biopsy clips in the right breast. Right breast implant is stable. There also is a stable biopsied focal asymmetry in the right breast at 1 o'clock. Prior asymmetry is no longer seen in the left breast. Additionally, there is a stable biopsy clip in the left breast. No significant masses, calcifications, or other findings are seen in either breast. IMPRESSION: BENIGN FINDING There is no mammographic evidence of malignancy. LIMITED ULTRASOUND OF LEFT BREAST AND AXILLA: 08/20/2023 RESULT: Comparison is made to exams dated: 04/24/2023 mammogram - [facility], 04/17/2023 mammogram - [facility], 04/17/2023 [facility] - [facility], [facility] Color flow and real-time ultrasound of the left breast 1 o'clock, and axilla regions were performed. Laughlin scale images of the real-time examination were reviewed. There is a 9 mm oval fluid collection in the left breast at 2 o'clock posterior depth. This oval fluid collection is hypoechoic. There is an associated biopsy clip. There also is a 1.8 cm x 0.8 cm x 0.9 cm lymph node with uniform cortical thickening in the left axillary tail. This lymph node is hypoechoic. This abnormality is decreased in size. IMPRESSION: KNOWN BIOPSY PROVEN MALIGNANCY The 9 mm oval fluid collection in the left breast at 2 o'clock posterior depth is a known biopsy positive for malignancy. The 1.8 cm x 0.8 cm x 0.9 cm lymph node with uniform cortical thickening in the left axillary tail is a known biopsy positive for malignancy. EXAMINATION: GEN alert and orientated, well nourished, calm Regional Lymph Nodes There is no concerning supraclavicular, infraclavicular or cervical lymphadenopathy. BREASTS: The patient was examined in the upright and supine position. RIGHT breast soft, no dominant masses, nipple everted, no discharge, no skin changes, surgical scar, implant RIGHT axilla no palpable axillary lymphadenopathy LEFT breast soft, no dominant masses, nipple everted, no discharge, no skin changes, implant LEFT axilla no palpable axillary lymphadenopathy ABD soft, non-distended, non-tender, no organomegaly EXT ambulated independently, good ROM of upper extremities, no evidence of lymphedema IMPRESSION: Carrie Herbert is 63 year old female who presented 02/2023 with a LEFT breast.1.4 cm IDC @ 1:00, 2 cm FN, metastasized to her axillary lymph nodes (bx clip placed in LN per report). LN extendedto level 2 (sub pec) ER-VA-HER2- [id number] History of RIGHT breast cancer, diagnosed at age 31, s/p partial mastectomy with axillary dissection, adjuvant chemotherapy (AC x4?) and radiation. Reports LN were negative (5-9 LN removed) and no endocrine therapy was recommended. S/p breast augmentation, placement of bilateral retropectoral silicone implants, about 10 yrs afterher lumpectomy surgery. LEFT bx (Q clip in breast). Outside report states clip placed in axilla - no images have shown a clip? RIGHT breast bx (Q clip and open coil clip - benign) now has 2 clips here She is currently undergoing neoadjuvant treatments under the casrof Dr. Zhu (Medical Oncologist) with her last treatment scheduled for 07/12/23 Has been receiving Carboplatin/paclitaxel/pembrolizumab. States she last chemo was July 11. Imaging shows a partial response LEFT breast 9 mm area with Q clip @ 1:00, 4 cm FN LEFT 1.[address] (bx prior) PLAN: We reviewed her case and options for surgery. She would like breast conservation if possible, Given she is genetically negative, and has minimal disease in her left breast - this is possible. She does have implants that are older (~20 years?), needs consult to plactic surgery regarding management of her implants. For her axilla. She presented with a large amount of axillary disease - best evaluated on her PET/CT. Will request another post treatment PET/CT prior to surgery to evaluate residual disease burden to determine extent of axillary surgery. Also concern on recent MRI imaging for bone marrow uptake inthe sternum. Discussed SLNB with intraoperative frozen section versus axillary lymph node dissection. We discussed that if she will need an axillary lymph node dissection. There is a technique - called axillary reverse mapping (ARM) where isosulfan blue dye is injected into the upper extremity inner portion dermis during surgery which then reverse maps her arm lymphatic drainage to help identify the nodes that drain the arm and these blue ARM lymphatics can be microscopically reanastomosed to draining veinsto maintain patency of lymphatic flow. We discussed literature has shown axillary reverse mapping and lymphovenous bypass (lymphedema prevention surgery) can decrease the risk of post-operative arm lymphedema. This is our standard approach to axillary lymph node dissection. We discussed the need for adjuvant radiation for axilla and the breast if she chooses lumpectomy. We discussed placement of the grisel nursing coordinator in the breast and possibly the axilla. We discussed surgical times and recovery times. She is out of network for this surgery per insurance (per the patient). I will refer to the financial team to review her case with her insurance. She also needs a consultation with Dr. Reid, plastic surgery for implant management and need forlymphovenous bypass surgery. I spoke with Dr. Zhu who will order the PET CT. I will regroup with Shellie after the PET CT and plastics consult. Surgery typically is scheduled 4-6 weeks after completion of chemotherapy so we are working a bit outside of the treatment window due to insurance constrains and so we do need to move forward. She has our names and numbers to stay in touch if she has any questions, concerns or problems in the interim. Keila Christina DO Breast Surgeon cc: Ken Zarco ([facility]) [address] [facility] [address] [place] [address] Dr. Ayaan Reid documented in this encounterMer[facility]05-30-2024 Nurse Note* Flor Cottrell LPN - 08/22/2023 11:15 AM EDT Regroup Last mammogram on: 08/20/2023 bilateral Results: see report Is the patient active on MyChart Yes Electronically Signed By: Flor Cottrell LPN In Department: [facility] REVIEW OF PATIENT HISTORY: OB History T0 L0 SAB0 IAB1 Ectopic0 Multiple0 Live Births0 FAMILY HISTORY Problem Relation Age of Onset other (constipation) Mother other (atrial fib) Father Hypertension Maternal Grandmother Aneurysm Maternal Grandmother brain aneurysm age 64 No Known Problems Maternal Grandfather Stroke Paternal Grandmother two light strokes 74 year of age Diabetes Paternal Grandfather Diabetes Other GRANDFATHER PAST MEDICAL HISTORY Diagnosis Date Condyloma acuminatum 03/25/1983 no history of recurrance since treatment COVID-19 09/2021 Lymphocytic colitis Malignant neoplasm of left breast in female, estrogen receptor negative (HCC) 04/12/2023 Malignant neoplasm of upper-outer quadrant of female breast (HCC) 05/24/1991 breast cancer treated with chemo and radiation Mass of axilla, left 03/21/2023 Mental disorder Rectal bleeding Unspecified constipation 03/25/2004 [...] torn retina repair REMV CATARACT EXTRACAP,INSERT LENS US BREAST NEEDLE CORE BIOPSY LT Left 02/2023 LN bx Social History Tobacco Use Smoking status: Former Years: 1.5 Types: Cigarettes Quit date: 08/24/1983 Years since quittin.0 Smokeless tobacco: Never Tobacco comments: in her early 20's, none now Vaping Use Vaping Use: Never used Substance Use Topics Alcohol use: No Drug use: No [facility] Note* Flor Cottrell LPN - 08/22/2023 11:15 AM EDT Regroup Last mammogram on: 08/20/2023 bilateral Results: see report Is the patient active on MyChart Yes Electronically Signed By: Flor Cottrell LPN In Department: [facility] REVIEW OF PATIENT HISTORY: OB History T0 L0 SAB0 IAB1 Ectopic0 Multiple0 Live Births0 FAMILY HISTORY Problem Relation Age of Onset other (constipation) Mother other (atrial fib) Father Hypertension Maternal Grandmother Aneurysm Maternal Grandmother brain aneurysm age 64 No Known Problems Maternal Grandfather Stroke Paternal Grandmother two light strokes 74 year of age Diabetes Paternal Grandfather Diabetes Other GRANDFATHER PAST MEDICAL HISTORY Diagnosis Date Condyloma acuminatum 03/25/1983 no history of recurrance since treatment COVID-19 09/2021 Lymphocytic colitis Malignant neoplasm of left breast in female, estrogen receptor negative (HCC) 04/12/2023 Malignant neoplasm of upper-outer quadrant of female breast (HCC) 05/24/1991 breast cancer treated with chemo and radiation Mass of axilla, left 03/21/2023 Mental disorder Rectal bleeding Unspecified constipation 03/25/2004 [...] torn retina repair REMV CATARACT EXTRACAP,INSERT LENS US BREAST NEEDLE CORE BIOPSY LT Left 02/2023 LN bx Social History Tobacco Use Smoking status: Former Years: 1.5 Types: Cigarettes Quit date: 08/24/1983 Years since quittin.0 Smokeless tobacco: Never Tobacco comments: in her early 20's, none now Vaping Use Vaping Use: Never used Substance Use Topics Alcohol use: No Drug use: No documented in this encounterMer[facility]05-28-2024 History of Present illness Narrative* Joanne Jean Baptiste RDMS - 08/20/2023 2:30 PM EDT Radiology Service Progress Note PATIENT NAME: Carrie Herbert DATE OF SERVICE: August 20, 2023 TIME: 3:55 PM PATIENT IDENTITY VERIFICATION COMPLETED USING TWO (2) IDENTIFIERS: Name and Date of confirmedby patient verbally. FALL SCREENING: Has the patient had 2 falls in the last year or 1 fall with injury or currently using an Ambulatory Assistive Device (Walker, Cane, Wheelchair, Crutches, etc.)? No PATIENT GENDER DATA: Female. status: : No status: NO. PATIENT RELEVANT IMPLANT DATA REVIEWED: Not Applicable PATIENT PRESENTS WITH AN IMPLANTABLE OR ATTACHED DISPLAY TRIMMER: No RADIOLOGY DEPARTMENT: Ultrasound PERIPHERAL IV DATA: Not applicable SIGNED BY: Joanne Jean Baptiste RDMS August 20, 2023 3:55 PM documented in this encounterMercy [facility]05-28-2024 History of Present illness Narrative* Soheila Miranda Mammo Tech - 08/20/2023 2:00 PM EDT Radiology Service Progress Note PATIENT NAME: Carrie Herbert DATE OF SERVICE: August 20, 2023 TIME: 2:02 PM PATIENT IDENTITY VERIFICATION COMPLETED USING TWO (2) IDENTIFIERS: Name and Date of confirmedby patient verbally. FALL SCREENING: Has the patient had 2 falls in the last year or 1 fall with injury or currently using an Ambulatory Assistive Device (Walker, Cane, Wheelchair, Crutches, etc.)? No PATIENT GENDER DATA: Female. status: : No status: NO. PATIENT RELEVANT IMPLANT DATA REVIEWED: Not Applicable PATIENT PRESENTS WITH AN IMPLANTABLE OR ATTACHED DISPLAY TRIMMER: No RADIOLOGY DEPARTMENT: Mammography PERIPHERAL IV DATA: Not applicable SIGNED BY: Alber Pierre August 20, 2023 2:02 PM documented in this encounterMercy Health [facility] Hospital05-24-2024 Telephone encounter Note * Telephone Encounter - Jael Gunter RN - 08/16/2023 1:[address] Zhu, ruth to cancel ECHO. No need to complete a peer to peer at this time. Jael Gunter RN [facility]05-24-2024 Miscellaneous Notes* Telephone Encounter - Jael Gunter RN - 08/16/2023 1:[address] Zhu, ruth to cancel ECHO. No need to complete a peer to peer at this time. Jael Gunter RN * Telephone Encounter - Thelma Vitale - 08/15/2023 3:00 PM EDT Madi called stating that peer to peer is needed for echo and EKG. please call [phone] documented in this encounterMercy Health [facility] Hospital05-23-2024 Telephone encounter Note * Telephone Encounter - Thelma Vitale - 08/15/2023 3:00 PM EDT Madi called stating that peer to peer is needed for echo and EKG. please call [phone] [facility] Work Phone: 1(603) 495-139805-16-2024 History of Present illness Narrative* Monserrat Rodriguez, KRIS.SILVANA - 08/08/2023 10:00 AM EDT Chief Complaint Patient presents with: Established Patient HPI: Carrie Herbert is a 63 year old female who presents here today for evaluation for treatment tomorrow. Per Dr. 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 Diagnosed with lymphocytic colitis about 3 years ago. Abdominal pain/diarrhea. Treated with probiotic and magnesium supplement. Had MRI brain and PET scan at [facility] on 04/09. MRI reported with LEFT and RIGHT transposed--I dictated correct side below. MRI revealed a 1.4 x 1.0 x 0.8 cm enhancing mass in the upper outer quadrant of the LEFT breast located 2.3 cm from the nipple along the 1:00 axis. The mass is 1.9 cm from the underlying pectoralis and 1.1 cm from the skin surface. No additional abnormal enhancement was observed. There were multiple pathologically enlarged right axillary lymph nodes, at least 3 of which were included within the [id number] measuring up to 2.8 cm. No internal mammary lymphadenopathy. Postlumpectomy changes were noted in the upper inner quadrant of the RIGHT breast. There was a 4 to5 mm focus of progressive enhancement along the superior medial aspect of the lumpectomy site whichwas nonspecific. No axillary adenopathy was noted. No internal mammary adenopathy was noted. A second look ultrasound of the focus of progressive enhancement in the left breast was recommended. Current therapy: 1) Paclitaxel and carboplatin along with pembrolizumab to be followed by pembrolizumab with AC or EC. Neutropenic on day 8, cycle #2. Treatment deferred. On return 05/30, still neutropenic. Treatment deferred. Received Neulasta on 06/02. Ultrasound-guided biopsy of right and left breast lesions on 04/24/2023. Pathology: Left breast at 1 o'clock, 4 cm from the nipple, core biopsy: - INVASIVE DUCTAL CARCINOMA, POORLY DIFFERENTIATED. - Angiolymphatic invasion present. - See comment. Estrogen receptors: NEGATIVE (0) Progesterone receptors: NEGATIVE (0) HER2/patricia: NEGATIVE (0) Right breast at 1 o'clock, 4 cm from the nipple, core biopsy: - Inflamed fibroadipose tissue with hemorrhage, stromal fibroelastosis and fat necrosis. - No malignancy identified. - See comment. Appetite:"Good." Wt. stable. Energy level:"Good." Denies fevers. Mouth:denies sores Resp:denies cough or sob Cardiac:denies chest pain/palpitations GI:denies abd pain, n/v, moving bowels regularly-taking probiotic :denies dysuria/hematuria Extrem:mild pain when bending legs up to top of thighs-"It is a tad better." Endo:denies hot flashes Neuro:denies symptoms of neuropathy Skin:denies rashes Heme:denies bleeding The ROS is otherwise negative. Past medical history, appointments, medications, allergies reviewed. No changes. EXAM: BP 103/64 Pulse 64 Temp 36.4 C (97.6 F) (Temporal) Wt 54.7 kg (120 lb 8 oz) LMP 12/30/2007 SpO2 99% BMI 20.05 kg/m APPEARANCE Well appearing, alert, in no acute distress, well-hydrated, well nourished. HEART RRR with normal S1 and S2, no murmurs LUNG clear to auscultation BREAST FEMALE L axillary LN mobile pea size LYMPH NODES No cervical lymphadenopathy, No supraclavicular lymphadenopathy, and No axillary lymphadenopathy. ABDOMEN bowel sounds normoactive, soft, non-tender EXTREMITIES No edema NEURO Awake, alert and oriented x 3, Normal gait, and No involuntary motions. SKIN Skin color, texture, turgor normal, no suspicious rashes or lesions LABS: Latest Ref Rng 07/18/2023 08/08/2023 WBC 3.70 - 11.00 k/uL 1.98 (L) 2.46 (L) RBC 3.90 - 5.20 m/uL 2.89 (L) 3.42 (L) Hemoglobin 11.5 - 15.5 g/dL 9.1 (L) 10.9 (L) Hematocrit 36.0 - 46.0 % 27.4 (L) 32.2 (L) MCV 80.0 - 100.0 fL 94.8 94.2 MCH 26.0 - 34.0 pg 31.5 31.9 MCHC 30.5 - 36.0 g/dL 33.2 33.9 RDW-CV 11.5 - 15.0 % 17.6 (H) 15.9 (H) Platelet Count 150 - 400 k/uL 189 218 MPV 9.0 - 12.7 fL 9.7 8.8 (L) NRBC /100 WBC 0.0 0.0 Absolute nRBC <0.01 k/uL <0.01 <0.01 Neut% % 57.0 43.1 Abs Neut (ANC) 1.45 - 7.50 k/uL 1.13 (L) 1.06 (L) Lymph% % 30.0 30.9 Abs Lymph 1.00 - 4.00 k/uL 0.59 (L) 0.76 (L) Cavalier% % 9.0 15.9 Abs Cavalier <0.87 k/uL 0.18 0.39 Eosin% % 2.0 8.1 Abs Eosin <0.46 k/uL 0.04 0.20 Baso% % 2.0 2.0 Abs Baso <0.11 k/uL 0.04 0.05 Myelo% % Left Shift Platelet Estimate Adequate Red Cell Morph Reviewed: see results of individual morphologies Polychromasia Slight Anisocytosis Present Ovalocytes Few RBC Fragments None Seen Few ! DTYPE Manual Auto Immature Gran % % 0.0 IMMATURE GRANS (ABS) <0.10 k/uL <0.03 CMP/TSH/T4/Cortisol: Pending ASSESSMENT/PLAN: 1. Malignant neoplasm of left breast in female, estrogen receptor negative, unspecified site of breast (HCC) - ICD9: 174.9, V86.1, ICD10: C50.912, Z17.1 (primary diagnosis) 2. Breast cancer 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, left (HCC) - ICD9: 174.9, 196.3, ICD10: C50.912, C77.3 cTx cN2a Mx ER/VA negative, HER2 negative grade 3 clinical stage IIIC invasive mammary carcinoma ofthe left breast. - Overall tolerating keytruda well. - Reviewed CBC with pt. - CMP/TSH/T4/Cortisol pending. - Dr. Zhu reviewed MRI breast with pt. over the phone. - Continue current medications. - Dx mamm/US as scheduled. - Follow up with Dr. Christina as scheduled. - Proceed as scheduled tomorrow for keytruda-pending all labs. - Follow up as scheduled. - Pt. aware to call office with any questions/concerns. The patient indicates understanding of these issues and agrees with the plan. Discussed case with Dr. Zhu who agrees with treatment plan. All documentation from previous visit of 07/18/23-Dr. Zhu was copied and pasted, documentation hasbeen reviewed and edited as necessary for today's visit. Monserrat Rodriguez APRN.SILVANA documented in this encounterMer[facility]05-[facility]24 Telephone encounter Note * Telephone Encounter - Hellen Zhu DO - 07/29/2023 2:45 PM EDT Okay, good. No need for further work up. Hellen Zhu DO [facility]05-06-2024 Miscellaneous Notes* Telephone Encounter - Hellen Zhu DO - 07/29/2023 2:45 PM EDT Okay, good. No need for further work up. Hellen Zhu DO * Telephone Encounter - Scarlet Bess LPN - 07/29/2023 1:21 PM EDT Reviewed with pt. She says that feeling of palpitations has gone away, "it was just the one day". Scarlet Bess LPN * Telephone Encounter - Hellen Zhu DO - 07/29/2023 1:10 PM EDT Echocardiogram showed normal heart pumping strength. Unchanged chronic aortic valve regurgitation. EKG showed normal electrical pattern of the heart with an occasional premature beat. That may have accounted for some of the palpitations she was having. Are they still occurring? Hellen Zhu DO * Telephone Encounter - Thelma Vitale - 07/29/2023 12:50 PM EDT Patient calling for 07/22 EKG and Echo results documented in this encounterMercy [facility]05-06-2024 Telephone encounter Note * Telephone Encounter - Scarlet Bess LPN - 07/29/2023 1:21 PM EDT Reviewed with pt. She says that feeling of palpitations has gone away, "it was just the one day". Scarlet Bess LPN [facility]05-06-2024 Telephone encounter Note* Telephone Encounter - Hellen Zhu DO - 07/29/2023 1:10 PM EDT Echocardiogram showed normal heart pumping strength. Unchanged chronic aortic valve regurgitation. EKG showed normal electrical pattern of the heart with an occasional premature beat. That may have accounted for some of the palpitations she was having. Are they still occurring? Hellen Zhu DO [facility]05-06-[facility] Telephone encounter Note* Telephone Encounter - Thelma Vitale - 07/29/2023 12:50 PM EDT Patient calling for 07/22 EKG and Echo results [facility] Work Phone: 1(842) 569-441005-02-2024 Telephone encounter Note* Telephone Encounter - Marleen Pulliam - 07/25/2023 2:06 PM EDT Patient approached the desk and is wondering if anyone has heard anything about her seeing Dr. Christina. Patient is getting anxious about getting her surgery scheduled, and wanted to exhaust every effort to get scheduled with Dr. Christina. Patient asking for an update.. Thanks [facility]05-02-2024 Miscellaneous Notes* Telephone Encounter - Marleen Pulliam - 07/25/2023 2:06 PM EDT Patient approached the desk and is wondering if anyone has heard anything about her seeing Dr. Christina. Patient is getting anxious about getting her surgery scheduled, and wanted to exhaust every effort to get scheduled with Dr. Christina. Patient asking for an update.. Thanks * Telephone Encounter - Roro Lorenzo - 07/24/2023 2:13 PM EDT Patient called back to get an update on things. I let her know the below information and she statedshe would really like to see Dr. Christina. She stated that had thought she might be able to get something helped on the financial end because she had in the past with other patients. Patient stated she does not mind to pay some out of pocket to see , if it is needed. She did notwant to schedule at [facility] breast center at this time, she prefers to make something work with being scheduled with Dr.Valente Butcher or her office can patient please get an update from you, if you have one. Thank you, Roro Andujar Pss * Telephone Encounter - Brielle Mcbride LPN - 07/24/2023 12:58 PM EDT I've tried calling the number below 4 times and it just rings fast busy. PSS- please attempt to get patient scheduled with breast surgeon (if available) at [facility] she will also need a plastic surgeon down the road and [facility] has this per their online portal. She only needs to be scheduled with the breast surgeon as of now. It's recommended that she have a bilateral mastectomy and left sided lymph nodes removed. Patient is aware of this. Dr. Dario Peterson seems to be the breast surgeon at [facility]. Brielle Mcbride LPN * Telephone Encounter - Brielle Mcbride LPN - 07/24/2023 11:44 AM EDT I tried calling the number given below 3 times, rings fast busy. Brielle Mcbride LPN * Telephone Encounter - Marleen Pulliam - 07/23/2023 11:49 AM EDT Patient stopped by and wanted to let us know that $24,000 is coming out of appeal on July 28 and will come off of her bill. She is not sure if this will make a difference in her getting scheduled or not. Marleen Lubin * Telephone Encounter - Keila Mace - 07/22/2023 4:26 PM EDT Spoke with registration staff at [facility] and they suggested calling the Referring Physician's Hotlineat [phone]. Please have someone clinical who knows what the patient needs from a surgeon contact this number and have patient scheduled at [facility] as it is the only other [facility] location covered by the patient's insurance. Keila Mace * Telephone Encounter - Hellen Zhu DO - 07/19/2023 9:05 AM EDT I called her last evening and reviewed the results of the MRI with her. Complete response radiographically and the breast and response in the axillary lymph nodes with the largest measuring 1 cm. Given that and the potential for cardiotoxicity with Adriamycin, I recommended proceeding with treatment with pembrolizumab only at this point and getting set up for surgical opinion. If residual diseasethen we could consider 4 cycles of Adriamycin and Cytoxan in the adjuvant setting. Either way I feel it is best for her to continue the immunotherapy component until surgery and following. She expressed an understanding and agreement with this plan. Please see if we can schedule an appointment with Dr. Christina. Dr. Christina--you saw her once when she was embarking on NAC for triple negative breast cancer. She had AC about 30 years ago when she had what I presume to be triple negative disease at that time. Her interim MRI showed good response and after discussion with one of the breast oncologist at [facility], we decided to hold off on the anthracycline portion of her NAC. Had difficulty with her neutrophil count during CarboTaxol phase of it. She has had very good radiographic response. We are recommending surgery at this juncture with the potential for further adjuvant chemotherapy following but Iwill keep her on immunotherapy in the meantime. Hellen Zhu DO documented in this encounterMercy [facility] Hospital05-01-2024 Telephone encounter Note * Telephone Encounter - Roro Lorenzo - 07/24/2023 2:13 PM EDT Patient called back to get an update on things. I let her know the below information and she statedshe would really like to see Dr. Christina. She stated that had thought she might be able to get something helped on the financial end because she had in the past with other patients. Patient stated she does not mind to pay some out of pocket to see , if it is needed. She did notwant to schedule at [facility] breast center at this time, she prefers to make something work with being scheduled with Dr.Valente Butcher or her office can patient please get an update from you, if you have one. Thank you, Roro Andujar Pss [facility]05-01-20[facility] Telephone encounter Note* Telephone Encounter - Brielle Mcbride LPN - 07/24/2023 1:29 PM EDT Being addressed in another phone encounter. Brielle Mcbride LPN [facility]05-01-2024 Miscellaneous Notes* Telephone Encounter - Brielle Mcbride LPN - 07/24/2023 1:29 PM EDT Being addressed in another phone encounter. Brielle Mcbride LPN * Telephone Encounter - Brielle Mcbride LPN - 07/22/2023 3:36 PM EDT Patient states [facility] is covered by her insurance. It says online that [facility] has a breast center. Please see if they have a breast surgeon and assist patient in scheduling. Breille Mcbride LPN * Telephone Encounter - Brielle Mcbride LPN - 07/22/2023 2:[address] Darby does procedures at [place] [facility] or [facility], neither are covered by patient's insurance. I will contact patient to see what/where her insurance covers. Brielle Mcbride LPN * Telephone Encounter - Keila Mace - 07/22/2023 2:37 PM EDT Please file order for Dr. Darby. We will schedule with patient and link order once signed. Keila Mace * Telephone Encounter - Kathie Adame LPN - 07/22/2023 2:07 PM EDT Spoke with pt. She is ok with seeing Dr. Darby, informed our PSS will reach out to his office andmake arrangements for visit. Do we need consultation order? Kathie Adame LPN * Telephone Encounter - Hellen Zhu DO - 07/22/2023 1:[address] PM ED[address] I think Dr. Darby needs to see her and assess if he can perform the surgery. Hellen Zhu DO * Telephone Encounter - Thelma Vitale - 07/22/2023 10:53 AM EDT Patient called stating that her appt with Dr. Christina has been canceled due to being out of network. Her office had recommended Dr. Darby. Patient asking for Dr. Zhu to review and advise. documented in this encounterMercy [facility] Hospital05-01-2024 Telephone encounter Note * Telephone Encounter - Brielle Mcbride LPN - 07/24/2023 12:58 PM EDT I've tried calling the number below 4 times and it just rings fast busy. PSS- please attempt to get patient scheduled with breast surgeon (if available) at [facility] she will also need a plastic surgeon down the road and [facility] has this per their online portal. She only needs to be scheduled with the breast surgeon as of now. It's recommended that she have a bilateral mastectomy and left sided lymph nodes removed. Patient is aware of this. Dr. Dario Peterson seems to be the breast surgeon at [facility]. Brielle Mcbirde LPN [facility]05-01-2024 Telephone encounter Note* Telephone Encounter - Brielle Mcbride LPN - 07/24/2023 11:44 AM EDT I tried calling the number given below 3 times, rings fast busy. Brielle Mcbride LPN [facility]04-30-2024 Telephone encounter Note* Telephone Encounter - Marleen Pulliam - 07/23/2023 11:49 AM EDT Patient stopped by and wanted to let us know that $24,000 is coming out of appeal on July 28 and will come off of her bill. She is not sure if this will make a difference in her getting scheduled or not. Marleen Lubin [facility]04-29-2024 Telephone encounter Note* Telephone Encounter - Keila Mace - 07/22/2023 4:26 PM EDT Spoke with registration staff at [facility] and they suggested calling the Referring Physician's Hotlineat [phone]. Please have someone clinical who knows what the patient needs from a surgeon contact this number and have patient scheduled at [facility] as it is the only other [facility] location covered by the patient's insurance. Keila Mace [facility]04-29-2024 Telephone encounter Note* Telephone Encounter - Keila Mace - 07/22/2023 4:12 PM EDT Spoke with patient and scheduled for 07/22. Keila Mace [facility]04-29-[facility] Miscellaneous Notes* Telephone Encounter - Keila Mace - 07/22/2023 4:12 PM EDT Spoke with patient and scheduled for 07/22. Keila Mace * Telephone Encounter - Jael Gunter RN - 07/22/2023 4:00 PM EDT Patient informed of Dr. Zhu's response, stated understanding. PSS- please contact patient to schedule. Thank you. Jael Gunter RN * Telephone Encounter - Hellen Zhu DO - 07/22/2023 1:05 PM EDT Please arrange to labs, EKG and STAT echocardiogram. Hellen Zhu DO * Telephone Encounter - Jael Gunter RN - 07/22/2023 11:48 AM EDT Care Coordination Triage Note [facility] Situation: Patient reports Other heart palpitations Background: Breast Cancer Assessment: Patient stated on Saturday she had heart palpitations that lasted for 3-4 minutes and then she would get dizzy and have to lie down which would alleviate symptoms. Patient had 12 episodes. Episodes occurred at rest, with activity, and one time she bent over to pick something up and had an episode. Patient denies syncope. Patient denies fever,chills, SOB, chest pain/pressure, cough, or unusual sweating episodes. Patient stated she has had diarrhea on and off controlled with imodium. Patient stated she had 2 cups of decaf coffee in the morning Saturday, 1 Gatorade, and water. Patients appetite is good. Patient also stated her legs have felt weak "like I ran a marathon" x 4-6 weeks. Denies over muscle weakness. Patient stated yesterday and today she has felt completely normal minus the leg weakness. Denies neuropathy. TSH/T4 were normal on 07/17. Recommendations: Will discuss with Dr. Zhu. Jael Gunter RN July 22, 2023 11:49 AM * Telephone Encounter - Thelma Vitale - 07/22/2023 9:22 AM EDT Patient called to inform office that she had side effect on Saturday - palpitations, dizziness, hadto lie down. Has not had above symptoms since. Has had ongoing leg weakness. documented in this encounterMer[facility]04-29-2024 Telephone encounter Note * Telephone Encounter - Jael Gunter RN - 07/22/2023 4:00 PM EDT Patient informed of Dr. Zhu's response, stated understanding. PSS- please contact patient to schedule. Thank you. Jael Gunter RN [facility]04-29-2024 Telephone encounter Note* Telephone Encounter - Brielle Mcbride LPN - 07/22/2023 3:36 PM EDT Patient states [facility] is covered by her insurance. It says online that [facility] has a breast center. Please see if they have a breast surgeon and assist patient in scheduling. Brielle Mcbride LPN [facility]04-29-2024 Telephone encounter Note* Telephone Encounter - Brielle Mcbride LPN - 07/22/2023 2:[address] Darby does procedures at [place] [facility] or [facility], neither are covered by patient's insurance. I will contact patient to see what/where her insurance covers. Brielle Mcbride LPN [facility]04-29-2024 Telephone encounter Note* Telephone Encounter - Keila Mace - 07/22/2023 2:37 PM EDT Please file order for Dr. Darby. We will schedule with patient and link order once signed. Keila Mace [facility]04-29-2024 Telephone encounter Note* Telephone Encounter - Kathie Adame LPN - 07/22/2023 2:07 PM EDT Spoke with pt. She is ok with seeing Dr. Darby, informed our PSS will reach out to his office andmake arrangements for visit. Do we need consultation order? Kathie Adame LPN [facility]04-29-2024 Telephone encounter Note* Telephone Encounter - Hellen Zhu DO - 07/22/2023 1:23 PM ED[address] I think Dr. Darby needs to see her and assess if he can perform the surgery. Hellen Zhu DO [facility]04-29-2024 Telephone encounter Note* Telephone Encounter - Hellen Zhu DO - 07/22/2023 1:05 PM EDT Please arrange to labs, EKG and STAT echocardiogram. Hellen Zhu DO [facility]04-29-2024 Telephone encounter Note* Telephone Encounter - Jael Gunter RN - 07/22/2023 11:48 AM EDT Care Coordination Triage Note [facility] Situation: Patient reports Other heart palpitations Background: Breast Cancer Assessment: Patient stated on Saturday she had heart palpitations that lasted for 3-4 minutes and then she would get dizzy and have to lie down which would alleviate symptoms. Patient had 12 episodes. Episodes occurred at rest, with activity, and one time she bent over to pick something up and had an episode. Patient denies syncope. Patient denies fever,chills, SOB, chest pain/pressure, cough, or unusual sweating episodes. Patient stated she has had diarrhea on and off controlled with imodium. Patient stated she had 2 cups of decaf coffee in the morning Saturday, 1 Gatorade, and water. Patients appetite is good. Patient also stated her legs have felt weak "like I ran a marathon" x 4-6 weeks. Denies over muscle weakness. Patient stated yesterday and today she has felt completely normal minus the leg weakness. Denies neuropathy. TSH/T4 were normal on 07/17. Recommendations: Will discuss with Dr. Zhu. Jael Gunter RN July 22, 2023 11:49 AM [facility]04-29-[facility] Telephone encounter Note* Telephone Encounter - Thelma Vitale - 07/22/2023 10:53 AM EDT Patient called stating that her appt with Dr. Christina has been canceled due to being out of network. Her office had recommended Dr. Darby. Patient asking for Dr. Zhu to review and advise. [facility] Work Phone: 1(474) 353-641204-29-2024 Telephone encounter Note* Telephone Encounter - Flor Cottrell LPN - 07/22/2023 10:43 AM EDT Called pt to inform her she has a financial hold and her insurance is out of network. Gave pt financial counselor Dagoberto Garcia number [phone] and surgeon at [place] if she has to schedule there for surgery. She verbalized understanding and thanked me for the information. Flor Cottrell LPN [facility] Work Phone: 1(786) 934-874204-29-2024 Miscellaneous Notes* Telephone Encounter - Flor Cottrell LPN - 07/22/2023 10:43 AM EDT Called pt to inform her she has a financial hold and her insurance is out of network. Gave pt financial counselor Dagoberto Garcia number [phone] and surgeon at [place] if she has to schedule there for surgery. She verbalized understanding and thanked me for the information. Flor Cottrell LPN documented in this encounterMercy Health [facility] Hospital04-29-2024 Telephone encounter Note * Telephone Encounter - Thelma Vitale - 07/22/2023 9:22 AM EDT Patient called to inform office that she had side effect on Saturday - palpitations, dizziness, hadto lie down. Has not had above symptoms since. Has had ongoing leg weakness. [facility] Work Phone: 1(386) 552-359404-26-2024 Telephone encounter Note* Telephone Encounter - Jael Gunter RN - 07/19/2023 9:16 AM EDT See other phone encounter from Dr. Zhu. He called patient to discuss her question. No need to antiemetic calendar at this time. Jael Gunter RN [facility]04-26-2024 Miscellaneous Notes* Telephone Encounter - Jael Gunter RN - 07/19/2023 9:16 AM EDT See other phone encounter from Dr. Zhu. He called patient to discuss her question. No need to antiemetic calendar at this time. Jael Gunter RN * Telephone Encounter - Jael Gunter RN - 07/18/2023 2:12 PM EDT Spoke to the patient. Patient informed of Dr. Zhu's response, stated understanding. This nurse will give her a calendar tomorrow for antiemetics. Calendar created. Patient is wondering "why we can't just remove the lymph nodes if we don't like them and then do chemo?" Patient would appreciate an answer from Dr. Zhu, will discuss and let her know his response. Jael Gunter RN * Telephone Encounter - Hellen Zhu DO - 07/18/2023 12:38 PM EDT Also, when signing orders for chemotherapy tomorrow, interaction flagged with Adriamycin and cimetidine and Paxil. Ask her to discontinue cimetidine. Rx for Pepcid sent if she needs antacid. Ask her to cut Paxil in half for the time being. Hellen Zhu DO * Telephone Encounter - Hellen Zhu DO - 07/18/2023 12:30 PM EDT She is going to start AC tomorrow. I told her I would send prescriptions for antinausea medication and. She will need some education on how to take them. I see Madison previously prescribe Zofran 4 mg tablets. Tell her she can use 2 of those at a time if needed when she is able to take Zofran afterthe 72 hours. Hellen Zhu DO * Telephone Encounter - Evangelina Baldwin RN - 07/18/2023 11:03 AM EDT Rx for Dexamethasone and Olanzapine. Karley Balwdin RN documented in this encounterMer[facility]04[facility] Telephone encounter Note * Telephone Encounter - Hellen Zhu DO - 07/19/2023 9:05 AM EDT I called her last evening and reviewed the results of the MRI with her. Complete response radiographically and the breast and response in the axillary lymph nodes with the largest measuring 1 cm. Given that and the potential for cardiotoxicity with Adriamycin, I recommended proceeding with treatment with pembrolizumab only at this point and getting set up for surgical opinion. If residual diseasethen we could consider 4 cycles of Adriamycin and Cytoxan in the adjuvant setting. Either way I feel it is best for her to continue the immunotherapy component until surgery and following. She expressed an understanding and agreement with this plan. Please see if we can schedule an appointment with Dr. Christina. Dr. Christina--you saw her once when she was embarking on NAC for triple negative breast cancer. She had AC about 30 years ago when she had what I presume to be triple negative disease at that time. Her interim MRI showed good response and after discussion with one of the breast oncologist at [facility], we decided to hold off on the anthracycline portion of her NAC. Had difficulty with her neutrophil count during CarboTaxol phase of it. She has had very good radiographic response. We are recommending surgery at this juncture with the potential for further adjuvant chemotherapy following but Iwill keep her on immunotherapy in the meantime. Hellen Zhu DO [facility]04-25-2024 Telephone encounter Note* Telephone Encounter - Jael Gunter RN - 07/18/2023 2:12 PM EDT Spoke to the patient. Patient informed of Dr. Zhu's response, stated understanding. This nurse will give her a calendar tomorrow for antiemetics. Calendar created. Patient is wondering "why we can't just remove the lymph nodes if we don't like them and then do chemo?" Patient would appreciate an answer from Dr. Zhu, will discuss and let her know his response. Jael Gunter, RN [facility]04-25-2024 Telephone encounter Note* Telephone Encounter - Hellen Zhu DO - 07/18/2023 12:38 PM EDT Also, when signing orders for chemotherapy tomorrow, interaction flagged with Adriamycin and cimetidine and Paxil. Ask her to discontinue cimetidine. Rx for Pepcid sent if she needs antacid. Ask her to cut Paxil in half for the time being. Hellen Zhu DO [facility]04-25-2024 Telephone encounter Note* Telephone Encounter - Hellen Zhu DO - 07/18/2023 12:30 PM EDT She is going to start AC tomorrow. I told her I would send prescriptions for antinausea medication and. She will need some education on how to take them. I see Madison previously prescribe Zofran 4 mg tablets. Tell her she can use 2 of those at a time if needed when she is able to take Zofran afterthe 72 hours. Hellen Zhu DO [facility]04-25-2024 Telephone encounter Note* Telephone Encounter - Evangelina Baldwin, EMETERIO - 07/18/2023 11:03 AM EDT Rx for Dexamethasone and Olanzapine. Karley Baldwin, EMETERIO T [facility] Work Phone: 1(631) 580-314304-25-2024 History of Present illness Narrative* Hellen Zhu DO - 07/18/2023 10:16 AM EDT Oncologic problem(s): 1) cTx cN2a Mx ER/VA negative, HER2 negative grade 3 clinical stage IIIC invasive mammary carcinomaof the left breast. HPI: The patient is a 63 yo female with PMH as outlined below. 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 Diagnosed with lymphocytic colitis about 3 years ago. Abdominal pain/diarrhea. Treated with probiotic and magnesium supplement. Had MRI brain and PET scan at [facility] on 04/09. MRI reported with LEFT and RIGHT transposed--I dictated correct side below. MRI revealed a 1.4 x 1.0 x 0.8 cm enhancing mass in the upper outer quadrant of the LEFT breast located 2.3 cm from the nipple along the 1:00 axis. The mass is 1.9 cm from the underlying pectoralis and 1.1 cm from the skin surface. No additional abnormal enhancement was observed. There were multiple pathologically enlarged right axillary lymph nodes, at least 3 of which were included within the [id number] measuring up to 2.8 cm. No internal mammary lymphadenopathy. Postlumpectomy changes were noted in the upper inner quadrant of the RIGHT breast. There was a 4 to5 mm focus of progressive enhancement along the superior medial aspect of the lumpectomy site whichwas nonspecific. No axillary adenopathy was noted. No internal mammary adenopathy was noted. A second look ultrasound of the focus of progressive enhancement in the left breast was recommended. Current therapy: 1) Paclitaxel and carboplatin along with pembrolizumab to be followed by pembrolizumab with AC or EC. Neutropenic on day 8, cycle #2. Treatment deferred. On return 05/30, still neutropenic. Treatment deferred. Received Neulasta on 06/02. Ultrasound-guided biopsy of right and left breast lesions on 04/24/2023. Pathology: Left breast at 1 o'clock, 4 cm from the nipple, core biopsy: - INVASIVE DUCTAL CARCINOMA, POORLY DIFFERENTIATED. - Angiolymphatic invasion present. - See comment. Estrogen receptors: NEGATIVE (0) Progesterone receptors: NEGATIVE (0) HER2/patricia: NEGATIVE (0) Right breast at 1 o'clock, 4 cm from the nipple, core biopsy: - Inflamed fibroadipose tissue with hemorrhage, stromal fibroelastosis and fat necrosis. - No malignancy identified. - See comment. Presents for ongoing oncologic management. Interim history: About two loose to watery BMs a day. Takes Imodium about every 3 days. Relieves it well. Mild nausea. Compazine works well. Still has occasional "sour stomach." Not able to articulate this more than that. No reflux. No sensory neuropathy. PAST MEDICAL HISTORY Diagnosis Date Condyloma acuminatum 03/25/1983 no history of recurrance since treatment COVID-19 09/2021 Lymphocytic colitis Malignant neoplasm of left breast in female, estrogen receptor negative (HCC) 04/12/2023 Malignant neoplasm of upper-outer quadrant of female breast (HCC) 05/24/1991 breast cancer treated with chemo and radiation Mass of axilla, left 03/21/2023 Mental disorder Rectal bleeding Unspecified constipation 03/25/2004 [...] torn retina repair REMV CATARACT EXTRACAP,INSERT LENS US BREAST NEEDLE CORE BIOPSY LT Left 02/2023 LN bx ALLERGIES Allergen Reactions Bactrim [Sulfametho* GI Upset Current Outpatient Medications Medication Sig ondansetron (ZOFRAN) 4 mg tablet Take 1 tablet by mouth once daily as needed for nausea/vomiting. FOR NAUSEA prochlorperazine (COMPAZINE) 10 mg tablet Take 1 tablet by mouth every 6 hours as needed (For chemotherapy induced nausea and vomiting). lidocaine-prilocaine (EMLA) 2.5-2.5 % cream Apply 60 minutes prior to accessing port. cimetidine (TAGAMET ORAL) Take by mouth as needed. cholecalciferol, vitamin D3, (VITAMIN D3 ORAL) Take 1,000 Units by mouth once daily. CALCIUM ORAL Take 800 mg by mouth once daily. amino acids/multivitamin (MULTIVITAMIN-AMINO ACIDS ORAL) Take 1 tablet by mouth once daily. No amino acids PAXIL 30 MG TAB Take 30 mg by mouth once daily. No current facility-administered medications for this visit. Social History Tobacco Use Smoking status: Former Years: 1.5 Types: Cigarettes Quit date: 08/24/1983 Years since quittin.9 Smokeless tobacco: Never Tobacco comments: in her early 20's, none now Vaping Use Vaping Use: Never used Substance Use Topics Alcohol use: No Drug use: No Family History Problem Relation Age of Onset other (constipation) Mother other (atrial fib) Father Hypertension Maternal Grandmother Aneurysm Maternal Grandmother brain aneurysm age 64 No Known Problems Maternal Grandfather Stroke Paternal Grandmother two light strokes 74 year of age Diabetes Paternal Grandfather Diabetes Other GRANDFATHER No family h/o breast cancer or other cancer. Has a brother. OBSTETRIC RELATED HISTORY: P0 History Breast Feeding: No. Age at of First Child: N/A. Age at Onset of Menses: 9 years of age. Age at Menopause: Early 40s (chemotherapy) years of age. Ovaries: Both intact. Uterus: Intact Exogenous Hormone Use/HRT: No. Oral Contraceptives: Age [age]. Tubal ligation age 31. ROS: Constitutional: No fever. No drenching night sweats. Normal appetite. No unexplained weight loss. No significant fatigue. Neuro: No recent AMARO, vertigo, dizziness or imbalance. No symptoms of sensory neuropathy. HEENT: No recent change in voice, vision or hearing. Loss of taste about 3-4 months. Can smell fine. Resp: No cough, wheeze of hemoptysis. No shortness of breath at rest. No ORELLANA. CVS: No exertional chest pain, PND or orthopnea. No extremity swelling/edema. No symptoms of claudication. No painful or tender varicose veins. GI: No dysphagia or odynophagia. No reflux, n/v, change in bowel habits. No abdominal pain, bloating or distension. No black or bloody stools. : No dysuria or gross hematuria. No symptoms of bladder outlet obstruction. Endo: No hot flashes. No polyuria or polydipsia. No heat or cold intolerance. Musculoskeletal: No bone, back, joint and muscular pain. Derm: No current rash. No history of jaundice. No diffuse pruritis. Heme: No unusual bleeding and unexplained bruising. Psych: Normal mood. PHYSICAL EXAM: Vitals: Blood pressure 98/60, pulse 74, temperature 37.1 C (98.7 F), temperature source Temporal, weight 54.9 kg (121 lb), last menstrual period 12/30/2007, SpO2 100%. Well-appearing and in no acute distress. EYES: Sclerae are anicteric bilaterally. LYMPHATIC: There is no palpable cervical, supraclavicular, axillary or inguinal adenopathy. RESPIRATORY: Inspiratory breath sounds are of normal intensity in all zambrano. No rales, wheezes or rhonchi. Expiratory phase is normal. CARDIOVASCULAR: Rhythm is regular. Normal intensity S1/S2. There is no gallop or murmur. BREAST: Brielle Mcbride LPN chaperoned. The left axillary lymph nodes are stable from last exam. Much improved since initial exam. Small nodule upper outer quadrant left breast about half centimeter in size. ABDOMEN: The abdomen is nondistended. No splenomegaly or hepatomegaly. No tenderness. Extremities: No swelling or edema. SKIN: No jaundice. 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 -cTx cN2a Mx ER/VA negative, HER2 negative grade 3 clinical stage IIIC invasive mammary carcinoma of the left breast. 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 -No family history of breast, gynecologic or other malignancy. -Tolerating treatment symptomatically well with grade diarrhea that has not gotten worse. -Awaiting results of MRI breast done yesterday at [facility]. However she still has palpable axillary adenopathy suggesting suboptimal response. I recommended proceeding with AC with dexrazoxane and pembrolizumab. She understands there is a risk for inducing cardiomyopathy but we will carefully monitor with echocardiogram prior to cycles 2, 3 and 4 of Adriamycin. Plan: -Begin AC with pembrolizumab tomorrow. -Will need on pro. -Check CBC around day 14. -Rx for dexamethasone and olanzapine. -Echocardiogram about 2 to 3 days prior to cycle #2. -Plan repeat MRI breast following completion of neoadjuvant chemo/immunotherapy. Portions of this documentation were copied and pasted from previous office visit notes in order to provide a cohesive continuity of the history. The note has been reviewed and edited and updated as necessary. I spent a total of 35 minutes on the date of the service which included preparing to see the patient, [id number] patient care, completing clinical documentation, obtaining and/or reviewing separately obtained history, performing a medically appropriate examination, counseling and educating the pat ient/family/caregiver, ordering medications, tests, or procedures, communicating with other HCPs (not separately reported), and communicating results to the patient/family/caregiver. Hellen Zhu DO documented in this encounterMer[facility]04[facility] History of Present illness Narrative* Scarlet Bess LPN - 07/18/2023 9:30 AM EDT Pt here for injection of Zarxio. Given SQ in right arm. Pt tolerated well. For all other information regarding today, see today's OV note with Dr Zhu. Scarlet Bess LPN documented in this encounterMercy [facility]04-24-2024 NoteHNO ID: [id number] Author: NATALIE COLÓN RT(R) Service: ? Author Type: Technologist Type: Progress Notes Filed: 07/17/2023 10:40 Note Text: Summary: MRI Radiology Service Progress Note DATE OF SERVICE: July 17, 2023 TIME: 10:38 AM PATIENT IDENTITY VERIFICATION COMPLETED USING TWO (2) STANDARD IDENTIFIERS: Name and Date of confirmed by patient verbally. FALL SCREENING: Has the patient had 2 falls in the last year or 1 fall with injury or currently using an Ambulatory Assistive Device (Walker, Cane, Wheelchair, Crutches, etc.)? No PATIENT GENDER DATA: Female. status: : No status: NO. PATIENT RELEVANT IMPLANT DATA REVIEWED: Yes PATIENT PRESENTS WITH AN IMPLANTABLE OR ATTACHED DISPLAY TRIMMER: No ALLERGIES: Reviewed and unchanged CONTRAST ALLERGY: NO. EXAM: MRI - CONTRAST TYPE: GROUP II PERIPHERAL IV DATA: Ambulatory: A peripheral IV was started in the Left antecubital site with a Angio cath: 22 gauge. RADIOLOGY DEPARTMENT: MR; Exam(s) Completed: Chest: Breast SIGNATURE: RT Una(R) PATIENT NAME: Carrie Herbert DATE: July 17, 2023 TIME: 10:38 [facility] History of Present illness Narrative* Natalie Colón RT(Roxana) - 07/17/2023 9:45 AM EDTSummary: MRI Radiology Service Progress Note DATE OF SERVICE: July 17, 2023 TIME: 10:38 AM PATIENT IDENTITY VERIFICATION COMPLETED USING TWO (2) STANDARD IDENTIFIERS: Name and Date of confirmed by patient verbally. FALL SCREENING: Has the patient had 2 falls in the last year or 1 fall with injury or currently using an Ambulatory Assistive Device (Walker, Cane, Wheelchair, Crutches, etc.)? No PATIENT GENDER DATA: Female. status: : No status: NO. PATIENT RELEVANT IMPLANT DATA REVIEWED: Yes PATIENT PRESENTS WITH AN IMPLANTABLE OR ATTACHED DISPLAY TRIMMER: No ALLERGIES: Reviewed and unchanged CONTRAST ALLERGY: NO. EXAM: MRI - CONTRAST TYPE: GROUP II PERIPHERAL IV DATA: Ambulatory: A peripheral IV was started in the Left antecubital site with a Angio cath: 22 gauge. RADIOLOGY DEPARTMENT: MR; Exam(s) Completed: Chest: Breast SIGNATURE: RT Una(R) PATIENT NAME: Carrie Herbert DATE: July 17, 2023 TIME: 10:38 AM documented in this encounterMercy Health [facility] Hospital04-23-2024 Nurse Note* Scarlet Bess LPN - 07/16/2023 4:30 PM EDT Pt here for injection of Zarxio. Given SQ in right arm. Pt tolerated well. Scarlet Bess LPN [facility]04-23-2024 Nurse Note* Scarlet Bess LPN - 07/16/2023 4:30 PM EDT Pt here for injection of Zarxio. Given SQ in right arm. Pt tolerated well. Scarlet Bess LPN documented in this encounterMercy Health [facility] Hospital04-23-2024 Telephone encounter Note * Telephone Encounter - Marleen Pulliam - 07/16/2023 9:06 AM EDT Mri scheduled for tomorrow at [facility]. Marleen Lubin [facility]04-23-2024 Miscellaneous Notes* Telephone Encounter - Marleen Pulliam - 07/16/2023 9:06 AM EDT Mri scheduled for tomorrow at [facility]. Marleen Lubin * Telephone Encounter - Hellen Zhu DO - 07/15/2023 9:24 PM EDT Can let her know I spoke with mother breast cancer oncologist at [facility]. Recommendation was for interim MRI of the breast to assess response to chemo thus far. If good response we may forego theremainder of the chemotherapy in favor of surgery. Please schedule MRI breast stat. Let the radiologist know and comments that outside MRI is available in the medical center. documented in this encounterMercy [facility] Hospital04-22-2024 Telephone encounter Note * Telephone Encounter - Hellen Zhu DO - 07/15/2023 9:24 PM EDT Can let her know I spoke with mother breast cancer oncologist at [facility]. Recommendation was for interim MRI of the breast to assess response to chemo thus far. If good response we may forego theremainder of the chemotherapy in favor of surgery. Please schedule MRI breast stat. Let the radiologist know and comments that outside MRI is available in the medical center. [facility]04-22-[facility] History of Present illness Narrative* Scarlet Bess LPN - 07/15/2023 12:19 PM EDT Pt here for injection of Zarxio. Given SQ in left arm. Pt tolerated well. Scarlet Bess LPN documented in this encounterMercy Health [facility] Hospital04-19-2024 Miscellaneous Notes* Telephone Encounter - Peg Treadwell LISW - 07/12/2023 2:08 PM EDT SOCIAL WORK FOLLOW UP NOTE: [facility] Date of service: July 12, 2023 Carrie Herbert is being seen for a follow up social work visit. Today's visit includes: patient TOPICS ADDRESSED: GEMA met with pt this date to assist pt in applying for Social Security Disability.SW and pt unable to complete application online d/t error message on the [facility] website. [facility] and assist with pt applying for disability. [facility] rep took all information from [employer]EMA over the phone and reports [facility] will call pt on August 07 @ 2:00 PM for the next stepin the process. Pt informed of date and time. No other needs identified at this time. PLAN: Assist with financial support applications and Continue follow up as needed F/U APPOINTMENT: PRN Assigned SW listed in Care Team tab: Yes SURESH Chiu documented in this encounterMercy Health [facility] Hospital04-19-2024 History of Present illness Narrative* Vazquez, Deidra M, RN - 07/12/2023 9:13 AM EDT 0926 Spoke with Kat in lab and ANC today is 4.27, informed pharmacy of results. documented in this encounterMercy Health [facility] Hospital04-18-2024 Nurse Note* Kathie Adame LPN - 07/11/2023 2:36 PM EDT Patient presents with: Imm/Inj Pt is identified by name and birthdate: Yes. Allergies and medications reviewed. Latex allergy? No. Does this patient have: Unplanned weight loss or gain of greater than 10 pounds, or a change of appetite over the last year? No Does the patient have any concerns about safety in the home/falls? Not at risk for falls Has the patient fallen in the past year? No Does the patient have difficulty performing or completing routine daily living activities? No Does this patient have concerns about personal safety? No Is patient having pain? Pain: No=0 (pain 0 on a scale of 0-10). Health Maintenance: Reviewed and updated. Does patient have MyChart access or Caregiver proxy: yes Pt/Caregiver willingness and readiness to learn assessed: Yes. Barriers: none Zarxio injection administered, left arm, tolerated well, no immediate adverse reactions noted. Kathie Adame LPN documented in this encounterMercy [facility]04-17-2024 Nurse Note* Kathie Adame LPN - 07/10/2023 3:44 PM EDT Patient presents with: Imm/Inj Pt is identified by name and birthdate: Yes. Allergies and medications reviewed. Latex allergy? No. Does this patient have: Unplanned weight loss or gain of greater than 10 pounds, or a change of appetite over the last year? No Does the patient have any concerns about safety in the home/falls? Not at risk for falls Has the patient fallen in the past year? No Does the patient have difficulty performing or completing routine daily living activities? No Does this patient have concerns about personal safety? No Is patient having pain? Pain: No=0 (pain 0 on a scale of 0-10). Health Maintenance: Reviewed and updated. Does patient have MyChart access or Caregiver proxy: yes Pt/Caregiver willingness and readiness to learn assessed: Yes. Barriers: none zarxio injection administered, tolerated well, no immediate adverse reactions noted. Kathie Adame LPN documented in this encounterMercy [facility]04-16-2024 Nurse Note* Kathie Adame LPN - 07/09/2023 11:35 AM EDT Patient presents with: Imm/Inj Pt is identified by name and birthdate: Yes. Allergies and medications reviewed. Latex allergy? No. Does this patient have: Unplanned weight loss or gain of greater than 10 pounds, or a change of appetite over the last year? No Does the patient have any concerns about safety in the home/falls? Not at risk for falls Has the patient fallen in the past year? No Does the patient have difficulty performing or completing routine daily living activities? No Does this patient have concerns about personal safety? No Is patient having pain? Pain: No=0 (pain 0 on a scale of 0-10). Health Maintenance: Reviewed and updated. Does patient have MyChart access or Caregiver proxy: yes Pt/Caregiver willingness and readiness to learn assessed: Yes. Barriers: none Zarxio injection administered, left arm,tolerated well, no immediate adverse reactions noted. Kathie Adame LPN documented in this encounterMercy Health [facility] Hospital04-15-2024 Nurse Note* Scarlet Bess LPN - 07/08/2023 8:59 AM EDT Pt here for injection of ZARXIO(filgrastim). Given sq in right arm. Pt tolerated well. Scarlet Bess LPN documented in this encounterMercy Health [facility]04-11-2024 Nurse Note* Kathie Adame LPN - 07/04/2023 2:15 PM EDT Zarzio injection administered, left arm,tolerated well, no immediate adverse reactions noted. See office notes Kathie Adame LPN documented in this [facility]04-11-2024 Nurse Note* Kathie Adame LPN - 07/04/2023 1:31 PM EDT Est. Pt, discuss recent labs, Neulasta. Kathie Adame LPN documented in this [facility]04-11-2024 History of Present illness Narrative* Kala Kaba - 07/04/2023 1:30 PM EDT Oncologic problem(s): 1) cTx cN2a Mx ER/VA negative, HER2 negative grade 3 clinical stage IIIC invasive mammary carcinomaof the left breast. HPI: The patient is a 62 yo [...] tissue involved by metastatic mammary carcinoma (provisional [place] grade 3). The carcinoma cells express cytokeratin AE1/AE3, GATA3, TRPS 1, and SOX10, and are negative for PAX8, TTF-1, and CDX2, supporting mammary origin. Breast biomarker studies have been requested and results will be reported separately in a linked report. 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 Diagnosed with lymphocytic colitis about 3 years ago. Abdominal pain/diarrhea. Treated with probiotic and magnesium supplement. Had MRI brain and PET scan at [facility] on 04/09. MRI reported with LEFT and RIGHT transposed--I dictated correct side below. MRI revealed a 1.4 x 1.0 x 0.8 cm enhancing mass in the upper outer quadrant of the LEFT breast located 2.3 cm from the nipple along the 1:00 axis. The mass is 1.9 cm from the underlying pectoralis and 1.1 cm from the skin surface. No additional abnormal enhancement was observed. There were multiple pathologically enlarged right axillary lymph nodes, at least 3 of which were included within the [id number] measuring up to 2.8 cm. No internal mammary lymphadenopathy. Postlumpectomy changes were noted in the upper inner quadrant of the RIGHT breast. There was a 4 to5 mm focus of progressive enhancement along the superior medial aspect of the lumpectomy site whichwas nonspecific. No axillary adenopathy was noted. No internal mammary adenopathy was noted. A second look ultrasound of the focus of progressive enhancement in the left breast was recommended. Ultrasound-guided biopsy of right and left breast lesions on 04/24/2023. Pathology: Left breast at 1 o'clock, 4 cm from the nipple, core biopsy: - INVASIVE DUCTAL CARCINOMA, POORLY DIFFERENTIATED. - Angiolymphatic invasion present. - See comment. Estrogen receptors: NEGATIVE (0) Progesterone receptors: NEGATIVE (0) HER2/patricia: NEGATIVE (0) Right breast at 1 o'clock, 4 cm from the nipple, core biopsy: - Inflamed fibroadipose tissue with hemorrhage, stromal fibroelastosis and fat necrosis. - No malignancy identified. - See comment. Current therapy: 1) Paclitaxel and carboplatin along with pembrolizumab to be followed by pembrolizumab with AC or EC. Neutropenic on day 8, cycle #2. Treatment deferred. On return 05/30, still neutropenic. Treatment deferred. Received Neulasta on 06/02. Presents for ongoing oncologic management. Interim history: Ms. Herbert presents today for follow up prior to treatment per keynote 522. Overall , tolerating treatment well. [place] significantly more fatigued following last cycle. [place] that first few treatments were a breeze but last one caught up with her. Energy has improved. Reviewedcyclical nature of treatment associated side effects. Pt acknowledged. Denies fevers, chills or NS.No s/s of infection. "Occasional sour stomach." Reviewed antiemetics today. No V/C/D. No bleeding or bruising. No sensory neuropathy. PAST MEDICAL HISTORY Diagnosis Date Condyloma acuminatum 03/25/1983 no history of recurrance since treatment COVID-19 09/2021 Lymphocytic colitis Malignant neoplasm of left breast in female, estrogen receptor negative (HCC) (HCC) 04/12/2023 Malignant neoplasm of upper-outer quadrant of female breast (HCC) 05/24/1991 breast cancer treated with chemo and radiation Mass of axilla, left 03/21/2023 Mental disorder Rectal bleeding Unspecified constipation 03/25/2004 [...] torn retina repair REMV CATARACT EXTRACAP,INSERT LENS US BREAST NEEDLE CORE BIOPSY LT Left 02/2023 LN bx ALLERGIES Allergen Reactions Bactrim [Sulfametho* GI Upset Current Outpatient Medications Medication Sig prochlorperazine (COMPAZINE) 10 mg tablet Take 1 tablet by mouth every 6 hours as needed (For chemotherapy induced nausea and vomiting). lidocaine-prilocaine (EMLA) 2.5-2.5 % cream Apply 60 minutes prior to accessing port. cimetidine (TAGAMET ORAL) Take by mouth as needed. cholecalciferol, vitamin D3, (VITAMIN D3 ORAL) Take 1,000 Units by mouth once daily. CALCIUM ORAL Take 800 mg by mouth once daily. amino acids/multivitamin (MULTIVITAMIN-AMINO ACIDS ORAL) Take 1 tablet by mouth once daily. No amino acids PAXIL 30 MG TAB Take 30 mg [...] Grandmother brain aneurysm age 64 No Known Problems Maternal Grandfather Stroke Paternal Grandmother two light strokes 74 year of age Diabetes Paternal Grandfather Diabetes Other GRANDFATHER No family h/o breast cancer or other cancer. Has a brother. OBSTETRIC RELATED HISTORY: P0 History Breast Feeding: No. Age at of First Child: N/A. Age at Onset of Menses: 9 years of age. Age at Menopause: Early 40s (chemotherapy) years of age. Ovaries: Both intact. Uterus: Intact Exogenous Hormone Use/HRT: No. Oral Contraceptives: Age 19-32. Tubal ligation age 31. ROS: Constitutional: No fever. No drenching night sweats. Normal appetite. No unexplained weight loss. No significant fatigue today. All systems reviewed on 07/04/2023 with pertinent positives and negatives as outlined in the interval history. PHYSICAL EXAM: Vitals: Last menstrual period 12/30/2007. Well-appearing and in no acute distress. EYES: Sclerae are anicteric bilaterally. LYMPHATIC: There is no palpable cervical, supraclavicular, axillary or inguinal adenopathy. RESPIRATORY: Inspiratory breath sounds are of normal intensity in all zambrano. No rales, wheezes or rhonchi. Expiratory phase is normal. CARDIOVASCULAR: Rhythm is regular. Normal intensity S1/S2. There is no gallop or murmur. BREAST: Matted nodes in left axilla much smaller. ABDOMEN: The abdomen is nondistended. No splenomegaly or hepatomegaly. No tenderness. Extremities: No swelling or edema. SKIN: No jaundice. 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 -cTx cN2a Mx ER/VA negative, HER2 negative grade 3 clinical stage IIIC invasive mammary carcinoma of the left breast. 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 -No family history of breast, gynecologic or other malignancy. -I recommended neoadjuvant chemotherapy following the KEYNOTE 522 regimen but since had previous AC, tumor board presentation regarding either substituting EC for AC or omitting AC if has significantresponse to the first 12 weeks of therapy with carboplatin and paclitaxel and pembrolizumab. -Tolerating treatment symptomatically very well. Complicated by prolonged neutropenia following treatment day 1, cycle #2. Received Neulasta. Counts recovered nicely. Discussed plan to continue therapy. If develops neutropenia again then may require daily Neupogen injections in the office. Plan: -Continue with cycle #4 - zofran refilled today, reviewed antiemetic use. - labs pending - Dr. Zhu considering AC vs EC or stop after paclitaxel and carboplatin and pembrolizumab if has significant response radiographically. Kala Kaba, [email or web address].CUFF SETTER I spent a total of 35 minutes on the date of the service which included preparing to see the patient, [id number] patient care, completing clinical documentation, and counseling and educating the patient/family/caregiver. Portions of this note including HPI, ROS, impression/plan may have been copied forward as to provide important historical information essential in contributing to medical decision making. Documentation has been reviewed and edited as necessary to support clinical decision making for today's visit and to reflect my own independent evaluation of this patient. documented in this encounterMer[facility] Nurse Note* Scarlet Bess LPN - 07/03/2023 4:01 PM EDT Pt here for injection of filgrastim. Given SQ in right arm. Pt tolerated well. Scarlet Bess LPN documented in this encounterMercy [facility]04-09-2024 History of Present illness Narrative* Scarlet Bess LPN - 07/02/2023 2:26 PM EDT Pt here for injection of neupogen. Given SQ in left arm. Pt tolerated well. Scarlet Bess LPN documented in this encounterMercy [facility]04-08-2024 Nurse Note* Kathie Adame LPN - 07/01/2023 10:23 AM EDT Patient presents with: Imm/Inj Pt is identified by name and birthdate: Yes. Allergies and medications reviewed. Latex allergy? No. Does this patient have: Unplanned weight loss or gain of greater than 10 pounds, or a change of appetite over the last year? No Does the patient have any concerns about safety in the home/falls? Not at risk for falls Has the patient fallen in the past year? No Does the patient have difficulty performing or completing routine daily living activities? No Does this patient have concerns about personal safety? No Is patient having pain? Pain: No=0 (pain 0 on a scale of 0-10). Health Maintenance: Reviewed and updated. Does patient have MyChart access or Caregiver proxy: yes Pt/Caregiver willingness and readiness to learn assessed: Yes. Barriers: none neupogen injection administered, right arm,tolerated well, no immediate adverse reactions noted. Kathie Adame LPN documented in this encounterMercy [facility]04-04-2024 History of Present illness Narrative* Sondra Palomares RN - 06/27/2023 11:16 AM EDT CASE [id number] ([id number]): Tissue and Body Fluid Analysis from Patients with Cancer and Other Risk- Associated Lesions Patient seen in clinic for informed consent of the above mentioned protocol. Patient agrees to participate in the above mentioned research study. The patient has signed a copy of the informed consent. Patient has contact information for the study team and Dr. Hellen Zhu D.O. . See consent note in Epic. Patient ineligible for a research blood draw. Sondra Palomares RN documented in this encounterMer[facility]04-04-2024 Nurse Note* Kathie Adame LPN - 06/27/2023 10:20 AM EDT Patient presents with: Imm/Inj Pt is identified by name and birthdate: Yes. Allergies and medications reviewed. Latex allergy? No. Does this patient have: Unplanned weight loss or gain of greater than 10 pounds, or a change of appetite over the last year? No Does the patient have any concerns about safety in the home/falls? Not at risk for falls Has the patient fallen in the past year? No Does the patient have difficulty performing or completing routine daily living activities? No Does this patient have concerns about personal safety? No Is patient having pain? Pain: No=0 (pain 0 on a scale of 0-10). Health Maintenance: Reviewed and updated. Does patient have MyChart access or Caregiver proxy: yes Pt/Caregiver willingness and readiness to learn assessed: Yes. Barriers: none zarxio injection administered, left arm,tolerated well, no immediate adverse reactions noted. Kathie Adame LPN documented in this encounterMer[facility]04-03-2024 Nurse Note* Scarlet Bess LPN - 06/26/2023 11:36 AM EDT Pt here for injection of neupogen. Given sq in right arm. Pt tolerated well. Scarlet Bess LPN documented in this encounterMercy [facility]04-03-2024 Miscellaneous Notes* Telephone Encounter - Brielle Mcbride LPN - 06/26/2023 8:36 AM EDT Patient notified. Brielle Mcbride LPN * Telephone Encounter - Hellen Zhu DO - 06/25/2023 5:05 PM EDT Unfortunately, I don't think iron is going to help. Hellen Zhu DO * Telephone Encounter - Brielle Mcbride LPN - 06/25/2023 4:54 PM EDT Patient denies SOB or cough, states she's just very tired. Patient asking if you want her to take an iron supplement? Brielle Mcbride LPN * Telephone Encounter - Hellen Zhu DO - 06/25/2023 4:49 PM EDT Fatigue is the most common side effect of immunotherapy. Anemia can contribute but oftentimes people have worsening shortness of breath with worsening anemia. Has she been experiencing that? Any persistent cough? Hellen Zhu DO * Telephone Encounter - Keila Crooks RN - 06/24/2023 11:04 AM EDT Pt c/o 7-8/10 fatigue over the past week. States it is much worse than usual, no energy, and she "can't stand it." States she is anemic and is asking if there's anything else she can do to fend off the fatigue. Pt educated on proper diet, hydration, and rest. Pt also stated she has been taking 5mg Melatonin at night to help her sleep. Advised to try lower dose or stop taking altogether to monitor fatigue. Please advise. documented in this encounterMer[facility]04-02-2024 Nurse Note* Kathie Adame LPN - 06/25/2023 11:30 AM EDT Patient presents with: Imm/Inj Pt is identified by name and birthdate: Yes. Allergies and medications reviewed. Latex allergy? No. Does this patient have: Unplanned weight loss or gain of greater than 10 pounds, or a change of appetite over the last year? No Does the patient have any concerns about safety in the home/falls? Not at risk for falls Has the patient fallen in the past year? No Does the patient have difficulty performing or completing routine daily living activities? No Does this patient have concerns about personal safety? No Is patient having pain? Pain: No=0 (pain 0 on a scale of 0-10). Health Maintenance: Reviewed and updated. Does patient have MyChart access or Caregiver proxy: yes Pt/Caregiver willingness and readiness to learn assessed: Yes. Barriers: none Zario injection administered, left arm, tolerated well, no immediate adverse reactions noted. Kathie Adame LPN documented in this encounterMercy [facility]03-26-2024 Miscellaneous Notes* Telephone Encounter - Kathie Adame LPN - 06/18/2023 9:47 AM EDT Tylor Amaro from [facility] authorization for Zarxio # [id number]. Kathie Adame LPN documented in this encounterMercy [facility]03-25-2024 Miscellaneous Notes* Telephone Encounter - Brielle Mcbride LPN - 06/17/2023 10:27 AM EDT I spoke with patient and explained the rationale behind the testing. Brielle Mcbride LPN * Telephone Encounter - Thelma Vitale - 06/17/2023 10:14 AM EDT Patient called asking for more information as to why test is needed, what are we looking for? Please advise. * Telephone Encounter - Marleen Pulliam - 06/17/2023 9:29 AM EDT Patient scheduled for first available on 07/02. Marleen Lubin * Telephone Encounter - Hellen Zhu DO - 06/17/2023 8:44 AM EDT Since this is a new symptom, likely secondary to anemia but please schedule for ultrasound of carotid arteries to start ruling out other causes. Hellen Zhu DO * Telephone Encounter - Thelma Vitale - 06/17/2023 8:34 AM EDT Patient states for 10 days she has been hearing a whoosh sound in her ears, like a heartbeat. She states it is causing her less sleep and is asking if this is a concern. documented in this encounterMercy [facility]03-22-2024 Miscellaneous Notes* Telephone Encounter - Keila Mace - 06/14/2023 10:28 AM EDT Injections scheduled as directed. Keila Mace * Telephone Encounter - Brielle Mcbride LPN - 06/14/2023 9:43 AM EDT Per chemo nurse- pt is scheduled for taxol/carbo this morning. Prelim ANC is 0.14 today. Please advise, thank you. Per Dr. Zhu- Well can't do chemotherapy today. Come in for Neulasta. Resume chemo next week, but will need to come in daily M-Thurs starting 06/23 for Neupogen injections. Patient is already here and chemo nurse is aware to give Neulasta today. PSS- please adjust schedule as directed above. Brielle Mcbride LPN documented in this encounterMer[facility]03-14-2024 Miscellaneous Notes* Telephone Encounter - Kathie Adame LPN - 06/06/2023 2:46 PM EDT So far it will just be that day. Dr. Zhu will decide if further injections are needed after that day. Kathie Adame LPN * Telephone Encounter - Thelma Vitale - 06/06/2023 2:44 PM EDT Scheduled with patient. Please advise on frequency. * Telephone Encounter - Brielle Mcbride LPN - 06/06/2023 2:34 PM EDT PSS- patient will need a lab/port appointment for a CBC 06/17/2023 and possible Neulasta injection the same day (after labs). I left a message for patient to contact the office to schedule this. She will also be here tomorrowfor treatment. Brielle Mcbride LPN documented in this encounterMercy [facility]03-14-2024 History of Present illness Narrative* Hellen Zhu, - 06/06/2023 9:55 AM EDT Oncologic problem(s): 1) cTx cN2a Mx ER/VA negative, HER2 negative grade 3 clinical stage IIIC invasive mammary carcinomaof the left breast. HPI: The patient is a 62 yo [...] tissue involved by metastatic mammary carcinoma (provisional [place] grade 3). The carcinoma cells express cytokeratin AE1/AE3, GATA3, TRPS 1, and SOX10, and are negative for PAX8, TTF-1, and CDX2, supporting mammary origin. Breast biomarker studies have been requested and results will be reported separately in a linked report. 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 Diagnosed with lymphocytic colitis about 3 years ago. Abdominal pain/diarrhea. Treated with probiotic and magnesium supplement. Had MRI brain and PET scan at [facility] on 04/09. MRI reported with LEFT and RIGHT transposed--I dictated correct side below. MRI revealed a 1.4 x 1.0 x 0.8 cm enhancing mass in the upper outer quadrant of the LEFT breast located 2.3 cm from the nipple along the 1:00 axis. The mass is 1.9 cm from the underlying pectoralis and 1.1 cm from the skin surface. No additional abnormal enhancement was observed. There were multiple pathologically enlarged right axillary lymph nodes, at least 3 of which were included within the [id number] measuring up to 2.8 cm. No internal mammary lymphadenopathy. Postlumpectomy changes were noted in the upper inner quadrant of the RIGHT breast. There was a 4 to5 mm focus of progressive enhancement along the superior medial aspect of the lumpectomy site whichwas nonspecific. No axillary adenopathy was noted. No internal mammary adenopathy was noted. A second look ultrasound of the focus of progressive enhancement in the left breast was recommended. Current therapy: 1) Paclitaxel and carboplatin along with pembrolizumab to be followed by pembrolizumab with AC or EC. Neutropenic on day 8, cycle #2. Treatment deferred. On return 05/30, still neutropenic. Treatment deferred. Received Neulasta on 06/02. Presents for ongoing oncologic management. Interim history: Ultrasound-guided biopsy of right and left breast lesions on 04/24/2023. Pathology: Left breast at 1 o'clock, 4 cm from the nipple, core biopsy: - INVASIVE DUCTAL CARCINOMA, POORLY DIFFERENTIATED. - Angiolymphatic invasion present. - See comment. Estrogen receptors: NEGATIVE (0) Progesterone receptors: NEGATIVE (0) HER2/patricia: NEGATIVE (0) Right breast at 1 o'clock, 4 cm from the nipple, core biopsy: - Inflamed fibroadipose tissue with hemorrhage, stromal fibroelastosis and fat necrosis. - No malignancy identified. - See comment. Tolerating treatment very well with only side effect being "occasional sour stomach." No GERD. No nauesa. No diarrhea. No sensory neuropathy. PAST MEDICAL HISTORY Diagnosis Date Condyloma acuminatum 03/25/1983 no history of recurrance since treatment COVID-19 09/2021 Lymphocytic colitis Malignant neoplasm of left breast in female, estrogen receptor negative (HCC) (HCC) 04/12/2023 Malignant neoplasm of upper-outer quadrant of female breast (HCC) 05/24/1991 breast cancer treated with chemo and radiation Mass of axilla, left 03/21/2023 Mental disorder Rectal bleeding Unspecified constipation 03/25/2004 [...] torn retina repair REMV CATARACT EXTRACAP,INSERT LENS US BREAST NEEDLE CORE BIOPSY LT Left 02/2023 LN bx ALLERGIES Allergen Reactions Bactrim [Sulfametho* GI Upset Current Outpatient Medications Medication Sig prochlorperazine (COMPAZINE) 10 mg tablet Take 1 tablet by mouth every 6 hours as needed (For chemotherapy induced nausea and vomiting). lidocaine-prilocaine (EMLA) 2.5-2.5 % cream Apply 60 minutes prior to accessing port. cimetidine (TAGAMET ORAL) Take by mouth as needed. cholecalciferol, vitamin D3, (VITAMIN D3 ORAL) Take 1,000 Units by mouth once daily. CALCIUM ORAL Take 800 mg by mouth once daily. amino acids/multivitamin (MULTIVITAMIN-AMINO ACIDS ORAL) Take 1 tablet by mouth once daily. No amino acids PAXIL 30 MG TAB Take 30 mg [...] Grandmother brain aneurysm age 64 No Known Problems Maternal Grandfather Stroke Paternal Grandmother two light strokes 74 year of age Diabetes Paternal Grandfather Diabetes Other GRANDFATHER No family h/o breast cancer or other cancer. Has a brother. OBSTETRIC RELATED HISTORY: P0 History Breast Feeding: No. Age at of First Child: N/A. Age at Onset of Menses: 9 years of age. Age at Menopause: Early 40s (chemotherapy) years of age. Ovaries: Both intact. Uterus: Intact Exogenous Hormone Use/HRT: No. Oral Contraceptives: Age 19-32. Tubal ligation age 31. ROS: Constitutional: No fever. No drenching night sweats. Normal appetite. No unexplained weight loss. No significant fatigue. Neuro: No recent AMARO, vertigo, dizziness or imbalance. No symptoms of sensory neuropathy. HEENT: No recent change in voice, vision or hearing. Loss of taste about 3-4 months. Can smell fine. Resp: No cough, wheeze of hemoptysis. No shortness of breath at rest. No ORELLANA. CVS: No exertional chest pain, PND or orthopnea. No extremity swelling/edema. No symptoms of claudication. No painful or tender varicose veins. GI: No dysphagia or odynophagia. No reflux, n/v, change in bowel habits. No abdominal pain, bloating or distension. No black or bloody stools. : No dysuria or gross hematuria. No symptoms of bladder outlet obstruction. Endo: No hot flashes. No polyuria or polydipsia. No heat or cold intolerance. Musculoskeletal: No bone, back, joint and muscular pain. Derm: No current rash. No history of jaundice. No diffuse pruritis. Heme: No unusual bleeding and unexplained bruising. Psych: Normal mood. PHYSICAL EXAM: Vitals: Blood pressure 101/64, pulse 74, temperature 37 C (98.6 F), weight 55.8 kg (123 lb), last menstrual period 12/30/2007, SpO2 98%. Well-appearing and in no acute distress. EYES: Sclerae are anicteric bilaterally. LYMPHATIC: There is no palpable cervical, supraclavicular, axillary or inguinal adenopathy. RESPIRATORY: Inspiratory breath sounds are of normal intensity in all zambrano. No rales, wheezes or rhonchi. Expiratory phase is normal. CARDIOVASCULAR: Rhythm is regular. Normal intensity S1/S2. There is no gallop or murmur. BREAST: Matted nodes in left axilla much smaller. ABDOMEN: The abdomen is nondistended. No splenomegaly or hepatomegaly. No tenderness. Extremities: No swelling or edema. SKIN: No jaundice. 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 -cTx cN2a Mx ER/VA negative, HER2 negative grade 3 clinical stage IIIC invasive mammary carcinoma of the left breast. 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 -No family history of breast, gynecologic or other malignancy. -I recommended neoadjuvant chemotherapy following the KEYNOTE 522 regimen but since had previous AC, tumor board presentation regarding either substituting EC for AC or omitting AC if has significantresponse to the first 12 weeks of therapy with carboplatin and paclitaxel and pembrolizumab. -Tolerating treatment symptomatically very well. Complicated by prolonged neutropenia following treatment day 1, cycle #2. Received Neulasta. Counts now recovered nicely. Discussed plan to continue therapy. If develops neutropenia again then may require daily Neupogen injections in the office. Plan: -Start cycle #3 tomorrow since days 8 and 15 of cycle 2 were omitted. -Check CBC for possible Neulasta day 11. -AC or EC or stop after paclitaxel and carboplatin and pembrolizumab if has significant response radiographically. Portions of this documentation were copied and pasted from previous office visit notes in order to provide a cohesive continuity of the history. The note has been reviewed and edited and updated as necessary. I spent a total of 25 minutes on the date of the service which included preparing to see the patient, [id number] patient care, completing clinical documentation, obtaining and/or reviewing separately obtained history, performing a medically appropriate examination, counseling and educating the pat ient/family/caregiver, ordering medications, tests, or procedures, communicating with other HCPs (not separately reported), and communicating results to the patient/family/caregiver. Hellen Zhu DO documented in this encounterMer[facility]03-14-2024 Nurse Note* Kathie Adame LPN - 06/06/2023 9:30 AM EDT Est. Pt, discuss recent lab results, tx tomorrow Kathie Adame LPN documented in this encounterMercy Health [facility] Hospital03-11-2024 Nurse Note* Scarlet Bess LPN - 06/03/2023 10:43 AM EDT Pt here for injection of neulasta. Given SQ in right arm. Pt tolerated well. Pt observed for signs and symptoms of adverse reaction. None noted. Scarlet Bess LPN documented in this encounterMercy Health Anderson Hospital03-11-2024 Miscellaneous Notes* Telephone Encounter - Marleen Pulliam - 06/03/2023 9:58 AM EDT Patient authorized. * Telephone Encounter - Keila Mace - 05/31/2023 12:56 PM EST Spoke with patient and scheduled. High priority email sent to Aida Pichardo/Alysia Latif for authorization. Keila Mace * Telephone Encounter - Hellen Zhu DO - 05/31/2023 10:20 AM EST She needs a dose of Neulasta. See if we can get this approved and administered on Saturday. Hellen Zhu DO * Telephone Encounter - Peg Stallings RN - 05/31/2023 8:57 AM EST Patient scheduled today for C2 D8 of taxol/carbo tx. Labs obtained, ANC came back 0.76. Dr. Noland notified and stated to hold treatment. Patient educated on taking her temperature and to call if she has any questions or concerns. Patient has labs and OV 06/[address] Zhu. documented in this encounterMercy Health Anderson Hospital03-08-2024 History of Present illness Narrative* Peg Stallings RN - 05/31/2023 8:27 AM EST Patient here for tx today. ANC came back 0.76 Dr. Noland notified; he stated to hold tx. Patient will be back 06/05 for labs and OV with Dr. Zhu. documented in this encounterMercy Health Anderson Hospital03-01-2024 History of Present illness Narrative* Paulina Maher RN - 05/24/2023 9:25 AM EST Delay one week per Dr. Hellen Zhu based on ANC. documented in this encounterMercy Health Anderson Hospital02-22-2024 History of Present illness Narrative* Monserrat Rodriguez APRN.CUFF SETTER - 05/16/2023 11:06 AM EST Chief Complaint Patient presents with: Established Patient Follow-Up HPI: Carrie Herbert is a 62 year old female who presents here today for evaluation for treatment tomorrow. Per Dr. Zhu's previous note: H/o RIGHT breast cancer at age 31 managed [...] tissue involved by metastatic mammary carcinoma (provisional [place] grade 3). The carcinoma cells express cytokeratin AE1/AE3, GATA3, TRPS 1, and SOX10, and are negative for PAX8, TTF-1, and CDX2, supporting mammary origin. Breast biomarker studies have been requested and results will be reported separately in a linked report. 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 Diagnosed with lymphocytic colitis about 3 years ago. Abdominal pain/diarrhea. Treated with probiotic and magnesium supplement. Had MRI brain and PET scan at [facility] on 04/09. MRI reported with LEFT and RIGHT transposed--I dictated correct side below. MRI revealed a 1.4 x 1.0 x 0.8 cm enhancing mass in the upper outer quadrant of the LEFT breast located 2.3 cm from the nipple along the 1:00 axis. The mass is 1.9 cm from the underlying pectoralis and 1.1 cm from the skin surface. No additional abnormal enhancement was observed. There were multiple pathologically enlarged right axillary lymph nodes, at least 3 of which were included within the [id number]-at-zcpg measuring up to 2.8 cm. No internal mammary lymphadenopathy. Postlumpectomy changes were noted in the upper inner quadrant of the RIGHT breast. There was a 4 to5 mm focus of progressive enhancement along the superior medial aspect of the lumpectomy site whichwas nonspecific. No axillary adenopathy was noted. No internal mammary adenopathy was noted. A second look ultrasound of the focus of progressive enhancement in the left breast was recommended. Current therapy:Carbo/Taxol/Keytruda Began 04/25/23 No new concerns today. Appetite:"Good. Some foods taste odd." Wt. down 2# Energy level:"Good." Denies fevers. Mouth:denies sores/thrush Resp:denies cough or sob Cardiac:denies chest pain/palpitations GI:denies abd pain, n/v, moving bowels regularly :denies dysuria/hematuria Extrem:denies pain Endo:denies hot flashes Neuro:denies symptoms of neuropathy Skin:mild rash to lower chest Heme:denies bleeding The ROS is otherwise negative. Past medical history, appointments, medications, allergies reviewed. No changes. EXAM: BP 106/63 Pulse 66 Temp 36.6 C (97.8 F) (Oral) Wt 55.6 kg (122 lb 8 oz) LMP 12/30/2007 SpO2 96% BMI 20.39 kg/m APPEARANCE Well appearing, alert, in no acute distress, well-hydrated, well nourished. MOUTH no mucositis/thrush HEART RRR with normal S1 and S2, no murmurs LUNG clear to auscultation LYMPH NODES No cervical lymphadenopathy, No supraclavicular lymphadenopathy, and No axillary lymphadenopathy. ABDOMEN bowel sounds normoactive, soft, non-tender EXTREMITIES No edema NEURO Awake, alert and oriented x 3, Normal gait, and No involuntary motions. SKIN Skin color, texture, turgor normal, no suspicious rashes or lesions LABS: Prelim CBC: Component Latest Ref Rng & Units 05/03/2023 05/10/2023 05/16/2023 WBC 3.70 - 11.00 k/uL 3.06 (L) 2.04 (L) 1.88 (L) RBC 3.90 - 5.20 m/uL 3.81 (L) 3.71 (L) 3.63 (L) Hemoglobin 11.5 - 15.5 g/dL 11.4 (L) 11.2 (L) 10.8 (L) Hematocrit 36.0 - 46.0 % 33.2 (L) 32.7 (L) 31.9 (L) MCV 80.0 - 100.0 fL 87.1 88.1 87.9 MCH 26.0 - 34.0 pg 29.9 30.2 29.8 MCHC 30.5 - 36.0 g/dL 34.3 34.3 33.9 RDW-CV 11.5 - 15.0 % 13.2 13.5 14.1 Platelet Count 150 - 400 k/uL 232 241 220 MPV 9.0 - 12.7 fL 9.5 9.3 9.2 Neut% % 62.4 48.0 Abs Neut (ANC) 1.45 - 7.50 k/uL 1.91 0.98 (L) Lymph% % 24.2 34.8 Abs Lymph 1.00 - 4.00 k/uL 0.74 (L) 0.71 (L) Cavalier% % 8.8 8.8 Abs Cavalier <0.87 k/uL 0.27 0.18 Eosin% % 3.3 5.4 Abs Eosin <0.46 k/uL 0.10 0.11 Baso% % 1.0 2.5 Abs Baso <0.11 k/uL 0.03 0.05 Immature Gran % % 0.3 0.5 IMMATURE GRANS (ABS) <0.10 k/uL <0.03 <0.03 NRBC /100 WBC 0.0 0.0 Absolute nRBC <0.01 k/uL <0.01 <0.01 DTYPE Auto Auto ANC pending. CMP/TSH/T4: Pending ASSESSMENT/PLAN: 1. Malignant neoplasm of left breast in female, estrogen receptor negative, unspecified site of breast (HCC) (HCC) - ICD9: 174.9, V86.1, ICD10: C50.912, Z17.1 cTx cN2a Mx ER/VA negative, HER2 negative grade 3 clinical stage IIIC invasive mammary carcinoma ofthe left breast. - Overall tolerating treatment well. - Reviewed prelim CBC and biopsy results with pt. - CMP/TSH/T4 pending. - Continue current medications. - Treatment tomorrow pending ANC. Re-check CBC in a.m. - Follow up as scheduled otherwise. - Pt. aware to call office with any questions/concerns. The patient indicates understanding of these issues and agrees with the plan. All documentation from previous visit of 04/12/23-Dr. Zhu was copied and pasted, documentation hasbeen reviewed and edited as necessary for today's visit. Monserrat Rodriguez APRN.CNP documented in this encounterMercy Health [facility] Hospital02-13-2024 NoteHNO ID: [id number] Author: FAY CARPENTER LGC Service: ? Author Type: Genetic Counselor Type: Progress Notes Filed: 05/07/2023 09:17 Note Text: [facility] Consultation Note Genetic Counselor: Fay Carpenter MS, [facility] Patient: Carrie Herbert Patient Name and confirmed at initiation of visit. This session was conducted via [employer]. I have communicated my name and active licensure. The patient's identity and physical location were verified at the time of this visit. Either the patient or their legal traveling representative has been informed of the risks and benefits of -- and alternatives to -- treatment through a remote evaluation and consents to proceed with the evaluation remotely. HIGH LEVEL SUMMARY: The patient's personal history is potentially suggestive of a hereditary cancer syndrome. The patient provided informed consent for Multi-Cancer panel through [facility]. Results are expected in 2-3 weeks. IDENTIFICATION AND CHIEF COMPLAINT: Dr. Hellen Zhu requested a consultation for genetic counseling and risk assessment for Carrie Herbert, a 62 year old female, for discussion of her personal history of breast cancer. She presents to clinic today to discuss the possibility of a genetic predisposition to cancer, and to further clarify her risks, as well as her family members' risks for cancer. HISTORY OF PRESENT ILLNESS: In 1991, at the age of 31, Carrie Herbert was diagnosed with breast cancer of the Right breast. This was treated with chemotherapy and radiation therapy and a lumpectomy. Then in 2023, at the age of 62, Carrie was diagnosed with invasive mammary carcinoma of the left breast which is triple negative which is being treated with chemo, surgery, and radiation. PAST MEDICAL HISTORY Diagnosis Date Condyloma acuminatum 03/25/1983 no history of recurrance since treatment COVID-19 09/2021 Lymphocytic colitis Malignant neoplasm of left breast in female, estrogen receptor negative (HCC) (HCC) 04/12/2023 Malignant neoplasm of upper-outer quadrant of female breast (HCC) 05/24/1991 breast cancer treated with chemo and radiation Mass of axilla, left 03/21/2023 Mental disorder Rectal bleeding Unspecified constipation 03/25/2004 [...] torn retina repair REMV CATARACT EXTRACAP,INSERT LENS US BREAST NEEDLE CORE BIOPSY LT Left 02/2023 LN bx CANCER SURVEILLANCE HISTORY: Mammograms: last 03/2023 Breast MRI's: last 03/2023 Breast Biopsies: last 03/2023, last in 1991 Colonoscopy: last a few years ago EGD: N/A GI Polyps: no polyps per pt report Dermatology: No REPRODUCTIVE HISTORY AND PERSONAL RISK ASSESSMENT FACTORS: Weight: Last 1 Encounter Wt Readings: Date: Wt: 05/03/2023 55.8 kg (123 lb) Height: Last 1 Encounter Ht Readings: Date: Ht: 04/15/2023 165.1 cm (5' 5") Menarche was at age 9 Postmenopausal in early 40s Uterus Intact: Yes Ovaries Intact: Yes She has not used HRT in the past. SOCIAL HISTORY: Social History Tobacco Use Smoking status: Former Years: 1.5 Types: Cigarettes Quit date: 08/24/1983 Years since quittin.7 Smokeless tobacco: Never Tobacco comments: in her early 20's, none now Vaping Use Vaping Use: Never used Substance Use Topics Alcohol use: No Drug use: No FAMILY HISTORY: We obtained a detailed, 4-generation family history. Significant diagnoses are listed below: No family history of cancer FAMILY HISTORY Problem Relation Age of Onset other (constipation) Mother other (atrial fib) Father Hypertension Maternal Grandmother Aneurysm Maternal Grandmother brain aneurysm age 64 No Known Problems Maternal Grandfather Stroke Paternal Grandmother two light strokes 74 year of age Diabetes Paternal Grandfather Diabetes Other GRANDFATHER The patient's maternal ancestors are of Gabonese descent and paternal ancestors are of Irish descent. There is no Ashkenazi Jain ancestry. There is no known consanguinity. A copy of the patient's pedigree will be available under the scanned documents tab following today's visit. GENETIC COUNSELING RISK ASSESSMENT, DISCUSSION, AND SUGGESTED FOLLOW UP: We reviewed the natural history and genetic etiology of sporadic, familial and hereditary cancer syndromes. The patient's personal histo (more content not included)...[facility] 05-07-2023 Miscellaneous Notes* Addendum Note - Fay Carpenter LGC - 05/07/2023 10:48 AM ESTAddended by: FAY CARPENTER on: 05/07/2023 10:48 AM Modules accepted: Orders documented in this encounterMercy Health [facility] Hospital02-13-2024 History of Present illness Narrative* Fay Carpenter LGC - 05/07/2023 9:[address] [facility] Consultation Note Genetic Counselor: Fay Carpenter MS, [facility] Patient: Carrie Herbert Patient Name and confirmed at initiation of visit. This session was conducted via [employer]. I have communicated my name and active licensure. The patient's identity and physical location wereverified at the time of this visit. Either the patient or their legal traveling representative has been informed of the risks and benefits of -- and alternatives to -- treatment through a remote evaluation andconsents to proceed with the evaluation remotely. HIGH LEVEL SUMMARY: The patient's personal history is potentially suggestive of a hereditary cancer syndrome. The patient provided informed consent for Multi-Cancer panel through [facility]. Results are expected in 2-3 weeks. IDENTIFICATION AND CHIEF COMPLAINT: Dr. Hellen Zhu requested a consultation for genetic counseling and risk assessment for Carrie Herbert, a 62 year old female, for discussion of her personal history of breast cancer. She presents to clinic today to discuss the possibility of a genetic predisposition to cancer, and to furtherclarify her risks, as well as her family members' risks for cancer. HISTORY OF PRESENT ILLNESS: In 1991, at the age of 31, Carrie Herbert was diagnosed with breast cancer of the Right breast. This was treated with chemotherapy and radiation therapy and a lumpectomy. Then in 2023, at the age of 62, Carrie was diagnosed with invasive mammary carcinoma of the left breast which is triple negative which is being treated with chemo, surgery, and radiation. PAST MEDICAL HISTORY Diagnosis Date Condyloma acuminatum 03/25/1983 no history of recurrance since treatment COVID-19 09/2021 Lymphocytic colitis Malignant neoplasm of left breast in female, estrogen receptor negative (HCC) (HCC) 04/12/2023 Malignant neoplasm of upper-outer quadrant of female breast (HCC) 05/24/1991 breast cancer treated with chemo and radiation Mass of axilla, left 03/21/2023 Mental disorder Rectal bleeding Unspecified constipation 03/25/2004 [...] torn retina repair REMV CATARACT EXTRACAP,INSERT LENS US BREAST NEEDLE CORE BIOPSY LT Left 02/2023 LN bx CANCER SURVEILLANCE HISTORY: Mammograms: last 03/2023 Breast MRI's: last 03/2023 Breast Biopsies: last 03/2023, last in 1991 Colonoscopy: last a few years ago EGD: N/A GI Polyps: no polyps per pt report Dermatology: No REPRODUCTIVE HISTORY AND PERSONAL RISK ASSESSMENT FACTORS: Weight: Last 1 Encounter Wt Readings: Date: Wt: 05/03/2023 55.8 kg (123 lb) Height: Last 1 Encounter Ht Readings: Date: Ht: 04/15/2023 165.1 cm (5' 5") Menarche was at age 9 Postmenopausal in early 40s Uterus Intact: Yes Ovaries Intact: Yes She has not used HRT in the past. SOCIAL HISTORY: Social History Tobacco Use Smoking status: Former Years: 1.5 Types: Cigarettes Quit date: 08/24/1983 Years since quittin.7 Smokeless tobacco: Never Tobacco comments: in her early 20's, none now Vaping Use Vaping Use: Never used Substance Use Topics Alcohol use: No Drug use: No FAMILY HISTORY: We obtained a detailed, 4-generation family history. Significant diagnoses are listed below: No family history of cancer FAMILY HISTORY Problem Relation Age of Onset other (constipation) Mother other (atrial fib) Father Hypertension Maternal Grandmother Aneurysm Maternal Grandmother brain aneurysm age 64 No Known Problems Maternal Grandfather Stroke Paternal Grandmother two light strokes 74 year of age Diabetes Paternal Grandfather Diabetes Other GRANDFATHER The patient's maternal ancestors are of Gabonese descent and paternal ancestors are of Irish descent.There is no Ashkenazi Jain ancestry. There is no known consanguinity. A copy of the patient's pedigree will be available under the scanned documents tab following today's visit. GENETIC COUNSELING RISK ASSESSMENT, DISCUSSION, AND SUGGESTED FOLLOW UP: We reviewed the natural history and genetic etiology of sporadic, familial and hereditary cancer syndromes. The patient's personal history is potentially suggestive of: a hereditary cancer syndrome The patient meets NCCN HBOC testing criteria based on her personal history of breast cancer diagnosed <= 50 years of age and personal history of multiple primary breast cancers We discussed that identification of a hereditary cancer syndrome may help her care providers tailorher medical management. If a mutation is detected, the National Comprehensive Cancer Network and/orexpert opinion recommendations could include increased cancer surveillance and prophylactic surgeryoptions. If a mutation is detected, the patient will be referred back to the referring provider andto any additional appropriate care providers to discuss the relevant options. Inheritance of hereditary cancer syndromes was discussed with the patient. If a mutation is not found in the patient, this will decrease the likelihood of a hereditary cancersyndrome as the explanation for the patient's personal history of breast cancer. However, it cannotcompletely rule out this possibility. Cancer surveillance options would be discussed for the patient according to the appropriate standard National Comprehensive Cancer Network and [employer] Cancer Society guidelines, with consideration of their personal and family history risk factors. In this case, the patient will be referred back to their care providers for discussions of management. Based on this assessment of the patient's family and personal history, genetic testing is recommended. The patient was offered Multi-Cancer panel through [facility]. After considering the risks, benefits, and limitations, the patient chose to pursue and provided informed consent for the following testing: Multi-Cancer panel through [facility]. The Multi-Cancer Panel includes AIP, ALK, APC, ISABEL, AXIN2, BAP1, BARD1, BLM, BMPR1A, BRCA1, BRCA2, BRIP1, CDC73, CDH1, CDK4, CDKN1B, CDKN2A, CHEK2, CTNNA1, DICER1, EGFR, EPCAM, FH, FLCN, GREM1, HOXB13, KIT, LZTR1, MAX, MBD4, MEN1, MET, MITF, MLH1, MSH2, MSH3, MSH6, MUTYH, NF1, NF2, NTHL1, PALB2, PDGFRA, PMS2, POLD1, POLE, POT1, YKGLB9Z, PTCH1, PTEN, RAD51C, RAD51D, RB1, RET, SDHA, SDHAF2, SDHB, SDHC, SDHD, SMAD4, SMARCA4, SMARCB1, SMARCE1, STK11, SUFU, XJDL722, TP53, TSC1, TSC2, and VHL The Multi-Cancer panel looks at genes associated with cancers of the breast, gynecologic tract (ovarian, uterine/endometrial), gastrointestinal system (colorectal, gastric, pancreatic), endocrine glands (thyroid, parathyroid, pituitary, adrenal glands), genitourinary tract (renal/urinary tract, prostate), skin (melanoma, basal cell carcinoma), and brain/nervous system. We discussed that an NGS panel can rarely result in an unexpected finding which may or may not be related to the presenting phenotype. We discussed that [facility] may contact the patient by text or email regarding billing. The patient should watch for this communication and respond promptly. The patient should contact [facility] directlywith any billing questions (ph. [phone]). Per the patient's request, we will contact her by telephone to discuss these results. A follow up genetic counseling visit will be scheduled if requested. The patient was seen for a total of 15 minutes, greater than 50% of which was spent [id number] counseling. This plan is being carried out under the oversight of Dr. Tressa Casillas. This note will also be sent to the referring provider via the electronic medical record. Fay Carpenter MS, [facility] CC: Dr. Hellen Casillas documented in this encounterMercy Health Anderson Hospital02-12-2024 Miscellaneous Notes* Telephone Encounter - Brielle Mcbride LPN - 05/06/2023 9:25 AM EST Copy of note sent to precert department. Brielle Mcbride LPN * Telephone Encounter - Keila Mace - 05/03/2023 4:42 PM EST Kyler ramos [facility] called re: the following authorization for carboplatin, cyclophosphamide, neulasta, palenosetron, emend, leytruda and paclitaxol. All are all approved: Auth # [id number] documented in this encounterMercy Health Anderson Hospital02-08-2024 Miscellaneous Notes* Telephone Encounter - Jael Gunter RN - 05/02/2023 11:12 AM EST TOXICITY CHECK SYMPTOM ASSESSMENT The patient is on Carboplatin/Taxol/Keytruda Headache: No Visual Changes: No Dizziness: No Do you have any periods of confusion? No Mood changes: No Mouth or throat pain: No Appetite: no changes in appetite, appetite good Taste changes: No Nausea: No Vomiting: No Heartburn: No. Weight gain/loss: No Episodes of palpitations/chest discomfort/pressure/pain No Shortness of breath: No Cough: No Diarrhea: yes, "small amount" no episodes today, 2 episodes yesterday "small". My bowels are a little bit looser than normal Constipation: no Bladder/Urinary Changes: None Pain: No=0 (pain 0 on a scale of 0-10). Fever: No Chills: No Cold sensitivity: No Numbness/weakness: No Edema: No Skin changes: No Itching: No Yellowing of skin or eyes: No Musculoskeletal/joint changes/issues No Bleeding issues: No Activity Level: "very good" Do you need to take naps? No Does the patient need interventions or same day appointment:No Reinforced CURRENT treatment education based on current and anticipated symptoms. Discussed port/line care and patient verbalizes understanding: Yes Patient instructed to contact office or after hours Hematology/Oncology fellow for: temperature ? 100.4; questions or concerns. Patient verbalized understanding of when to seek medical attention and after hours number protocol. Jael Gunter RN documented in this encounterMercy Health Anderson Hospital02-02-2024 Miscellaneous Notes* Telephone Encounter - Jael Gunter RN - 04/26/2023 9:52 AM EST CYCLE 1/DAY 1 POST TREATMENT CALL Today's date: April 26, 2023 Treatment Regimen: carboplatin/paclitaxel/keytruda C1D1 Date: 04/25/23 Called patient to follow-up on symptom management. Spoke with patient SYMPTOM ASSESSMENT Neuro: None CV/Resp: None GI/: None Integument: None Activity: Patient reported no changes in energy level, energy level good Pain: No=0 (pain 0 on a scale of 0-10). Fever: No Chills: No Any new referrals needed? No Reinforced CURRENT treatment education based on current and anticipated symptoms. Discussed port/line care and patient verbalizes understanding: Yes Patient instructed to contact office or after hours Hematology/Oncology fellow for: temperature ? 100.4; questions or concerns. Patient verbalized understanding of when to seek medical attention and after hours number protocol. Jael Gunter RN documented in this encounterMercy Health Anderson Hospital01-29-2024 Discharge summary Author Arben Mccann [facility] April 22, 2023 2:01pm Note Date/Time April 22, 2023 2 :01pm [facility] Medical Records Department [address] [place] [address] Instructions for Home/Discharge Instructions 04/22/23 1359 MR#: [id number] Acct: [id number] Name: Everette HERBERT Rep #:[id number] : [id number] 62 From: Arben mitchell MD PCP: Dr. Hellen Lafleur MD Status:REG S DC Discharge Instructions Procedure Port-A-Cath Diet Discharge Diet: Light diet - advance as tolerated (Pain medication may cause nausea. You should typically eat light foods as you take your pain medication.) Activity Discharge Activity: Return to Normal Activity and May Shower (with your bandage in place in 1 day after surgery.) Lifting Restrictions: 15 lbs for 1 week Dressing / Incision Call your doctor if your incision/area has: Continuous Slow Oozing, Sudden Increased Bleeding, Increased Pain/ Swelling, Increased Redness and Foul Smelling Discharge Call your doctor if you observe: Fever of 101 or Higher Remove Dressing in: 2 days (Remove clear bandage in 2 days, remove Steri-Strips in 7 to 10 days. Okay to remove bandage in place and cream over the Port beforeaccessing. Try not to get cream over the incision part.) Cleanse incision/area with: Soap & Water Follow Up Care Please Follow Up With: Arben Mccann MD When: as needed [phone] Test Results: Test results from this visit will be discussed in further detail at your follow- up appointment, if applicable. Discharge Plan Admission Attending Provider: Arben Mccann Primary Care Provider: Hellen Lafleur Instructions Additional Instructions / Restrictions: Alternate ibuprofen and Tylenol for pain. Okay to use port on . Discharge Orders/Prescriptions Prescriptions: No Action paroxetine HCl 30 mg tablet 30 mg PO DAILY calcium carbonate [Calcium 600] 600 mg calcium (1,500 mg) tablet 800 mg PO DAILY cholecalciferol (vitamin D3) 25 mcg (1,000 unit) capsule 25 mcg PO DAILY magnesium oxide 500 mg capsule 250 mg PO DAILY ondansetron HCl 8 MG tablet 4 - 8 mg PO Q8H PRN PRN (Reason: Nausea) Saccharomyces boulardii 250 MG capsule 250 mg PO BID multivitamin [Daily Multi-Vitamin] Tablet 1 tab PO DAILY Referrals / Follow Up: Hellen Lafleur MD [Primary Care Provider] - Disposition Disposition (needs filled in before D/C Order can be placed): Home, Self Care 04/22/23 1401<Electronically signed by Arben Mccann MD>Arben Mccann MD CC: Dr. Hellen Lafleur MD ~ Signed [facility] Work Phone: [phone]) 160-835201-29-2024 History and physical note Author Arben Mccann [facility] April 22, 2023 12:07pm Note Date/Time April 22, 2023 1 2:07pm [facility] Medical Records Department [address] [place] [address] History & Physical Exam 04/22/23 1205 MR#: [id number] Acct: [id number] Name: Everette HERBERT Rep #:[id number] : 1960 62 From: Arben mitchell MD PCP: Dr. Hellen Lafleur MD Status:REG S DC Location: [place] [address] History and Physical Date of Admission: 04/22/23 Intake Vital Signs 01/16/2310:43 04/17/2407:22 Height 5 ft 5 in 5 ft 5 in Weight: 123 lb BMI 20.5 BP 100/61 Blood Pressure Location Lt brachial Position Sitting Respiration 17 Pulse 63 Pulse Source Monitor Temp 97.1 F L Temp Source Temporal Pulse Oximetry (%) 100 Oxygen Delivery Method room air Intake Visit Reasons: PORT PLACEMENT Chief Complaint: port placement Is patient in pain?: No Allergies sulfamethoxazole [From Bactrim] Allergy (Unknown, Verified 04/17/23 08:24) Nausea/Vom/Diarrheatrimethoprim [From Bactrim] Allergy (Unknown, Verified 04/17/23 08:24) Nausea/Vom/Diarrhea Medications paroxetine HCl 30 mg tablet 30 mg PO DAILY anxiety 11/03/19 [History Confirmed 04/17/23] pvaykm-ceurznze-nvtszlk 12,000-38,000-60,000 unit capsule,delayed rel 1 cap PO TID digestive enzyme 11/27/19 [History Confirmed 04/17/23] acetaminophen 325 mg tablet 650 mg (2 x 325 mg) PO Q6H PRN PRN Pain Score 1- 10/Temp > 100.7 F 11/29/19 [Rx Confirmed 04/17/23] Saccharomyces boulardii 250 mg capsule 250 mg PO BID digestion/probiotic 12/18/19 [History Confirmed 04/17/23] lorazepam 1 mg tablet 0.5 - 1 mg PO TID PRN Anxiety 12/18/19 [History Confirmed 04/17/23] ondansetron HCl 8 mg tablet 4 - 8 mg PO Q8H PRN PRN Nausea 12/18/19 [History Confirmed 04/17/23] calcium carbonate 600 mg calcium (1,500 mg) tablet (Calcium) 800 mg PO DAILY 04/17/23 [History Confirmed 04/17/23] cholecalciferol (vitamin D3) 25 mcg (1,000 unit) capsule 25 mcg PO DAILY 04/17/23 [History Confirmed 04/17/23] magnesium oxide 500 mg capsule 250 mg PO DAILY 04/17/23 [History Confirmed 04/17/23] [facility] Medical History (Updated 04/17/23 @ 08:21 by Kenn Amin) Anxiety Arthritis Breast cancer Diarrhea Gallbladder polyp GERD (gastroesophageal reflux disease) Surgical History History of breast augmentation (~2006) History of colonoscopy (~2014) History of colonoscopy (~01/2020) History of esophagogastroduodenoscopy (EGD) (~01/2020) History of lumpectomy History of tubal ligation (~1992) Family History (Updated 04/17/23 @ 08:22 by Kenn Amin) Grandfather DiabetesGrandmother Hypertension CVA (cerebral vascular accident) Social History Smoking Status: Never smoker alcohol intake: never HPI HPI HPI: Patient is a 62-year-old female with past medical history of right breast cancer. She currently has left breast cancer with positive lymph nodes on the left. She is here for port placement on the right. She is having neoadjuvant chemotherapy and then return to [facility] for surgery. ROS General General: Yes breast cancer; No weight change, appetite, fatigue, colon cancer or weakness HEENT HEENT: Yes eye surgery; No difficulty swallowing, eye injury, swollen glands or hoarseness Endo Endocrine: No thyroid disease, diabetes mellitus, thyroid cancer, Hair loss, heat intolerance or cold intolerance Skin Skin: No rash or changing moles Musc Musculoskeletal: No back problems, arthritis, rheumatoid arthritis, gout or joint pain Cardio Cardiovascular: No murmur, pacemaker, heart disease, atrial fibrillation, high blood pressure, heart attack, heart stent, palpitations, shortness of breat withexertion or chest pain Psych Psychiatric: Yes anxiety; No depression or hearing voices Resp Respiratory: No shortness of breath, No sleep apnea, No cough, No COPD, No asthma, No emphysema and No wheezing Gastro Gastrointestinal: No abdominal pain, No nausea or vomiting, No diarrhea, No constipation, No blood in stool, No acid reflux, No hemorrhoids, No ulcers, No gallbladder problem and No black,tarry stools Layo Hematologic: No blood thinners, No blood disorders, No bleeding, No anemia and No blood clots Neuro Neurologic: No system reviewed and no additional complaints, except as documented, No as per HPI, No abnormal gait, No abnormal hearing, No abnormal movements, No abnormal speech, No behavioral changes, No burning sensations, No confusion, No convulsions, No disequilibrium, No dizziness, No localized weakness, No frequent falls, No headache(s), No lack of coordination, No loss ofvision, No memory loss, No numbness, No other visual disturbances, No radicular pain, No restless legs, No sensory deficit, No syncope, No tingling, No tremor(s), No weakness and No other Exam Const General: cooperative Orientation: alert and oriented x3 HENMT Head: normal to inspection Neck Neck: normal visual inspection and full ROM Chest Chest palpation & inspection: normal inspection of the chest Resp Effort & Inspection: normal respiratory effort Auscultation: clear to auscultation bilaterally Cardio Rate: regular rate Rhythm: regular rhythm GI Inspection: non-distended Palpation: soft and nontender Skin General: no rashes or lesions noted Neuro General: patient alert and patient oriented x3 Extrem General: full ROM Psych Appearance: grossly normal Mental Status: mental status grossly normal Assessment and Plan Assessment and Plan (1) Encounter for insertion of venous access port: Status: Acute Plan: I discussed right chest port placement with the patient in detail. I discussed the risks including but elevated to bleeding, infection, Pneumothorax line infection or DVT. Patient or stands the risks and is willing to proceed. Arben Mccann MD Pager: [facility] [address] [place] [address], [address] [place] [address] Office: I have examined the patient and the H&P has been reviewed. There are no clinicalchanges since date of exam. 04/22/23 1207 <Electronically signed by Arben Mccann MD> Cosigner Signature (if applicable): CC: Dr. Arben Mccann MD; Dr. Hellen Lafleur MD~ Signed [facility] Work Phone: 1(980) 827-541901-29-2024 Procedure [facility] 04-15-2023 Telephone encounter Note* Telephone Encounter - Marleen Pulliam - 04/15/2023 10:05 AM EST Patient stopped down at our desk in [facility]. She asked we call [facility] and see when they could get her scheduled. They can place her port on Saturday04/22/2023 which is before her chemo start. She decided to go with [facility] so that it was set in stone this way. Thank you, Marleen [facility]01-22-2024 Miscellaneous Notes* Telephone Encounter - Marleen Pulliam - 04/15/2023 10:05 AM EST Patient stopped down at our desk in [facility]. She asked we call [facility] and see when they could get her scheduled. They can place her port on Saturday04/22/2023 which is before her chemo start. She decided to go with [facility] so that it was set in stone this way. Thank you, Marleen * Telephone Encounter - Madison Cooper - 04/15/2023 10:03 AM EST 04/19/2023 PORT PLACEMENT LEMON Patient has out of network insurance for [place]. Will work on clearance prior to scheduled date. Ifunable to authorize patient wishes to be done at [facility] Madison Cooper Instrumentation Manager documented [facility] Telephone encounter Note * Telephone Encounter - Madison Cooper - 04/15/2023 10:03 AM EST 04/19/2023 PORT PLACEMENT LEMON Patient has out of network insurance for [place]. Will work on clearance prior to scheduled date. Ifunable to authorize patient wishes to be done at [facility] Madison Cooper Instrumentation Manager [facility]01-18-2024 History of Present illness Narrative* Keila Christina DO - 04/11/2023 8:30 AM EST NEW BREAST CANCER - INITIAL SURGICAL VISIT SERVICE DATE: 04/11/2023 REFERRING PROVIDER: Dr Hellen Zhu Consult requested for an opinion regarding the evaluation and treatment of a new breast issue. My final impression and recommendations will be communicated back to the requesting physician by way of the shared medical record or letter via [place] mail. SUBJECTIVE: REASON FOR TODAY'S VISIT: Breast Cancer Evaluation HISTORY of PRESENT ILLNESS: Carrie Herbert is a 62 year old White female who presents to the [facility] at the request of Dr. Zhu for an opinion regarding LEFT axillary node, biopsy proven metastaticcarcinoma. She has a history of ER negative RIGHT breast cancer, diagnosed at age 31, s/p partial mastectomy with axillary dissection, adjuvant chemotherapy (AC x4?) and radiation. Reports LN were negative and no endocrine therapy was recommended. Reports she had breast augmentation, placement of bilateral retropectoral silicone implants, about 10 yrs later. Still has these in place Patient states she had a mammogram in 09/2022 which was normal. Soon after she palpated a LEFT mass in her axilla. Patient contact her doctor ans left axillary US was performed on 03/01/2023. Sonogram measured the mass to be 3.5 x 3.2 x 2.1 cm in size. (General Surgeon) was consulted for further evaluation and she performed an US biopsy of the mass in the office on 03/13/2024. The pathology report showed Metastatic carcinoma in lymph node tissue, Grade 3, ER negative, VA negative, HER2 non-amplified. Ms Herbert consulted with Dr. Davis (Radiation Oncologist) and Dr. Zhu (Medical Oncologist) who ordered biomarker testing, Breast MRI, Genetic counseling Brain MRI and PET scan for further assessment. Review of MRI Brain, performed on 04/08/2023, was normal Breast MRI was performed on 04/09/2023 and reported a LEFT breast mass in the UOQ, at 1:00, 2.3 cm from the nipple, measuring 1.4 x 1.0 x O.8 cm as well as multiple pathologically enlarged LEFT axillary nodes. Also a right breast asymmetry area (report states RIGHT breast instead of LEFT) Patient denies any other breast pain, skin changes, breast masses, and nipple discharge. HISTORY OF BREAST PROCEDURE(S): As above PAST MEDICAL HISTORY: PAST MEDICAL HISTORY Diagnosis Date Condyloma acuminatum 03/25/1983 no history of recurrance since treatment COVID-19 09/2021 Lymphocytic colitis Malignant neoplasm of left breast in female, estrogen receptor negative (HCC) (HCC) 04/12/2023 Malignant neoplasm of upper-outer quadrant of female breast (HCC) 05/24/1991 breast cancer treated with chemo and radiation Mass of axilla, left 03/21/2023 Mental disorder Rectal bleeding Unspecified constipation 03/25/2004 Constipation PAST SURGICAL HISTORY: PAST SURGICAL HISTORY Procedure Laterality Date CAUTERY [...] torn retina repair REMV CATARACT EXTRACAP,INSERT LENS US BREAST NEEDLE CORE BIOPSY LT Left 02/2023 LN bx OB History Patient's last menstrual period was 12/30/2007. No children FAMILY HISTORY: FAMILY HISTORY Problem Relation Age of Onset other (constipation) Mother other (atrial fib) Father Hypertension Maternal Grandmother Aneurysm Maternal Grandmother brain aneurysm age 64 No Known Problems Maternal Grandfather Stroke Paternal Grandmother two light strokes 74 year of age Diabetes Paternal Grandfather Diabetes Other GRANDFATHER The patient is not of Ashkenazic Ancestry Breast cancer: Negative Ovarian cancer:Negative Colon cancer:Negative Thyroid cancer:Negative Pancreatic cancer: Negative SOCIAL HISTORY: Social History Tobacco Use Smoking status: Former Years: 1.5 Types: Cigarettes Quit date: 08/24/1983 Years since quittin.6 Smokeless tobacco: Never Tobacco comments: in her early 20's, none now Vaping Use Vaping Use: Never used Substance Use Topics Alcohol use: No Drug use: No ACTIVE PROBLEM LIST Malignant Neoplasm of Left Breast in Female, Estrogen Receptor Negative (Hcc) ([facility]) - 04/12/2023 Metastatic Cancer to Axillary Lymph Nodes ([facility]) - 04/12/2023 Rectal Bleeding Unspecified Constipation - 09/19/2006 CURRENT MEDICATIONS: cimetidine (TAGAMET ORAL) Take by mouth as needed. cholecalciferol, vitamin D3, (VITAMIN D3 ORAL) Take [...] Take 30 mg by mouth once daily. ALLERGIES Allergen Reactions Bactrim [Sulfametho* GI Upset Trimethoprim Other: See Comments REVIEW OF SYSTEMS: GENERAL: No weight loss, malaise or fevers HEENT: Negative for frequent or significant headaches, No changes in hearing or vision, no nose bleeds or other nasal problems RESPIRATORY: Negative for cough, hemoptysis, wheezing, COPD, dyspnea or shortness of breath CARDIOVASCULAR: Negative for chest pain, leg swelling, hypertension, CHF or palpitations GASTROINTESTINAL: No nausea, vomiting, or diarrhea GENITOURINARY: No history of dysuria, frequency or incontinence GYNECOLOGICAL: Negative for abnormal vaginal bleeding, abnormal vaginal discharge MUSCULOSKELETAL: Negative for joint pain or swelling, back pain or muscle pain INTEGUMENTARY:Denies Scleroderma or Lupus. Denies chronic skin conditions. PSYCHOLOGICAL: Reports hx of anxiety (controlled on Paxil). Denies history of psychiatric illness. Patient feels she is coping well with recent Breast Cancer diagnosis. Negative for sleep disturbance, mood disorder and recent psychosocial stressors. All other reviewed and negative other than HPI. Belen Kline PA-C OBJECTIVE: PHYSICAL EXAM: LMP 12/30/2007 GENERAL:well-nourished, healthy, alert and oriented x 3, calm SKIN:warm, dry, skin color, texture, turgor normal HEAD/EYES:normocephalic, atraumatic, and anicteric NECK: supple, symmetrical, no thyromegaly RESPIRATORY: Respirations regular & non-labored ABDOMEN: soft, nondistended. No hepatomegaly., No masses MUSCULOSKELETAL: No observed limitations in range of motion of upper extremities. Patient ambulatesindependently BREASTS: The Patient was examined in the upright and supine positions. Breasts are symmetric. Thereare no significant fibrocystic changes. Patient's cup size is C augmented The patient was examined in the upright and supine position. Breast augmentation, Grafe I ptosis RIGHT breast soft, radial lateral scar from her prior lumpectomyOUQ , right palpable lump UIQ (biopsy with open coil clip prior benign), nipple everted, no discharge, no skin changes RIGHT axilla no palpable axillary lymphadenopathy LEFT breast soft, there is a palpable 1 cm mass @ UOQ, 4 cm FN corresponding to MRI, nipple everted, no discharge, no skin changes LEFT axilla palpable enlarged mobile LN Regional Lymph Nodes: There is no concerning supraclavicular, infraclavicular or cervical lymphadenopathy. IMAGING TO DATE: EXAMINATION: OUTSIDE IMAGING INTERPRETATION Indication for the Request / Reason for Overread: Previous report is inadequate. Service Requesting Consult: Breast surgery/Dr. Christina Any specific Issue(s) to be discussed: Metastatic carcinoma involving a left axillary lymph node Overread Date: 04/12/2023 7:19 AM Left axillary ultrasound 03-01-23 Multiple images of the left axilla demonstrates 5 circumscribed hypoechoic masses each measuring 1.8 x 0.9 cm; 3.2 x 3.4 cm; 1.5 x 1.5 cm; 2.1 x 2.8 cm; and 2.9 x 3.0 cm. None demonstrate preserved fatty odilia suggesting these either represent pathologic lymph nodes or solid masses. Left axillary biopsy 03-13-23 Multiple images demonstrates the biopsy needle through one of the masses. A clip was placed. However, no postbiopsy mammogram was performed documenting clip in the axilla. Bilateral breast MRI 04-09-23 A formal second opinion will not be issued for this MRI as I am unable to postprocess the images to assess kinetics. Of note, however, there are bilateral retropectoral saline implants. There are multiple enlarged left axillary lymph nodes which correlates with the ultrasound. There is also an irregular 0.8 cm enhancing mass in the upper outer left breast, anterior depth. I recommend the following: Because the patient has not had a mammogram since 10-08-22, I recommend bilateral mammography with tomosynthesis. In addition, targeted ultrasound of the enhancing mass in the upper outer left breast is recommended as this is suspicious in the setting of a positive axillary lymph node. The patient is seeing Dr. Christina. She will have her breast imaging performed at that time. MRI performed at [facility]. I reviewed the MRI today in the office with radiologist Dr. Cooley. Recommendations are correct but breast SIDES ARE TRANSPOSED. LEFT breast 1.4 cm mass in the upper outer quadrant LEFT axilla multiple pathologic lymph nodes and subpectoral RIGHT breast 5 mm focus of enhancement read as on the edge of the prior lumpectomy (this site has abx clip in the UIQ but is different from her lumpectomy scar - so needs this evaluated) PATHOLOGY FINAL DIAGNOSIS A: Left axilla, mass, biopsy (03/13/23): - Metastatic carcinoma in lymph node tissue, ER/VA-, HER2 - - Microcalcifications are present. Breast Biomarkers RESULTS: Estrogen Receptor (ER) Negative <1% Progesterone Receptor (VA) Negative <1% HER2 (ERBB2) IMMUNOHISTOCHEMISTRY ASSAY Interpretation: NEGATIVE for HER2 overexpression SOZO Review 04/11/2023 Extremity measured Left Arm Pacemaker/ Defibrillator/ Possible No Dominant Side Right Bilateral/ Unilateral Measurement Unilateral Patient Position Standing LDEX Result Green LDEX Score 1.2 Provider notified Yes Another SOZO Measurement needed No GENETIC TESTING: Consult has been placed - discussed the importance with [facility] ASSESSMENT: Carrie Herbert is a 62 year old female with LEFT breast axillary bx LN positive breast cancer ER-VA-HER2- MRI identied a LEFT breast suspicious 1.4 cm upper outer quadrant mass - suspect this is breast primary, needs 2nd look and bx History of RIGHT breast cancer at age 31, MRI with a 5 mm are of enhancement medially at side of a prior core bx where there is an associated palpable lump. Patient scar and hx is for an upper outer quadrant lumpectomy? This appears discordant and 2nd look US recommended - if no correlate then MRI bx should be performed. LEFT cT1N2 (at least [address] and subpectoral described)Mx - PET scan pending ER-VA-HER2- RIGHT hx of lumpectomy, MRI demonstrates a 5 mm area of enhancement - work up and bx recommended PLAN: DIAGNOSIS: (C50.912, C77.3) Breast cancer 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, left (HCC) (primary encounter diagnosis) (C77.3) 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) (C50.912, Z17.1) Malignant neoplasm of left breast in female, estrogen receptor negative, unspecified site of breast (HCC) (HCC) (C50.919) Triple negative breast cancer (HCC) (Z85.3) History of right breast cancer (R92.8) Abnormal MRI, breast We reviewed her MRI results. Likely identified breast primary as a source. LEFT breast area and also RIGHT breast area lateral to prior lumpectomy needs 2nd look. Discussed recommendation for BILATERAL breast US and biopsy. New baseline MMG order placed as well. LEFT breast 2nd look US and bx with clip placement RIGHT breast 2nd look US, if no correlate then needs MRI bx Discussed need for neoadjuvant chemotherapy. PET scan pending Discussed genetic testing. Reviewed options for surgery. Will discuss in greater detail when she returns for surgery after neoadjuvant chemotherapy. Discussed she will return to see me to review surgery prior to her last chemotherapy. She will see plastic surgery at that time as well. Will need management of her breast and implants (which are old) She is a candidate for a nipple sparing mastectomy or lumpectomy She will need XRT due to lymph nodes. She appears clinically N2 We discussed may have the recommendation for complete axillary lymph node dissection. We discussed axillary reverse mapping and lymphovenous bypass to decrease the risk of post-operative arm lymphedema. Will see Dr. Reid The patient had a basseline L-Dex SOZO measurement which I reviewed today, as noted above in the health record. We reviewed that bioimpedance spectroscopy helps identify the early onset of lymphedemain an arm or leg before patients experience noticeable swelling. Research has shown that 92% of patients with early detection of lymphedema using L-Dex combined with breast rehab intervention do not progress to chronic lymphedema. Whenever possible, patients are tested for baseline L-Dex score before cancer treatment begins and then are reassessed during regular follow-up visits using the SOZO device. If the patient's L-Dex score increases above normal levels, that is a sign that lymphedema is developing and a referral is made to physical therapy for further evaluation and early compression treatment. Lymphedema assessment with the SOZO L-Dex score is recommended to be done at baseline prior to surgery and at follow-up survivorship visits to screen for lymphedema per NCCN guidelines of breast cancer survivorship. She states due to insurance she will need to get her imaging at [facility]. Needs to check with insurance to see if I am a surgeon in her network Future Appointments Date Time Provider Department Center 04/15/2023 8:50 AM ECHOCARDIOGRAM [facility] CARD[facility] 04/15/2023 9:45 AM Vale Carpenter MD GENSWS [place] 04/15/2023 10:20 AM PFA DOVETAILER 2 PFCPS None 04/16/2023 10:30 AM Wstr, Legal Cashier [facility] HEMAWS [place] 04/17/2023 11:30 AM DIAGNOSTIC MAMMO [facility] WSTR RDXWS [place] 04/17/2023 1:00 PM US [facility] WSTR MOB 1 RUSWS [place] All questions were answered and the patient had no further concerns at this time Ms. Herbert was given our contact information if she has any further questions or concerns. Keila Christina DO Breast Surgeon Cc: Dr. Ayaan Davis documented [facility] Nurse Note* Flor Cottrell LPN - 04/11/2023 8:29 AM EST Patient was referred by: Did patient bring outside records to appt today? : Films: Sent in by other facility Pathology: Sent in by other facility Reports: Sent in by other facility Last mammogram on: 10/08/22 bilateral Results: see report Patient current bra size: 34C Coping: It is normal to feel some distress when you have cancer. On a scale of 0-10 please indicatethe number that best describes your level of distress on the average over the past week. 07/02 Referred to social work: No Is the patient active on [employer] No Electronically Signed By: Flor Cottrell LPN In Department: [facility] REVIEW OF PATIENT HISTORY: OB History T0 L0 SAB0 IAB1 Ectopic0 Multiple0 Live Births0 FAMILY HISTORY Problem Relation Age of Onset other (constipation) Mother other (atrial fib) Father Hypertension Maternal Grandmother Aneurysm Maternal Grandmother brain aneurysm age 64 No Known Problems Maternal Grandfather Stroke Paternal Grandmother two light strokes 74 year of age Diabetes Paternal Grandfather Diabetes Other GRANDFATHER PAST MEDICAL HISTORY Diagnosis Date Condyloma acuminatum [...] torn retina repair REMV CATARACT EXTRACAP,INSERT LENS Social History Tobacco Use Smoking status: Former Years: 1.5 Types: Cigarettes Quit date: 08/24/1983 Years since quittin.6 Smokeless tobacco: Never Tobacco comments: in her early 20's, none now Vaping Use Vaping Use: Never used Substance Use Topics Alcohol use: No Drug use: No documented in [facility] encounter[facility] History of Present illness Narrative* Vale Carpenter MD - 03/12/2023 10:13 AM EST Carrie Hensley Piedad 1960 REFERRING PHYSICIAN: Ken Zarco MD CHIEF COMPLAINT: Consult (Left axilla [...] at age 9, , first at age 17,BCP use initially age 18 for about 8 y, LMP menopause at age 45 US left breast - 03/01/2023 - left axilla multiple lymph nodes with larges 3.5 x 3.2 cm from [facility] Bilateral mammograms 3D normal 10/08/2022 PAST MEDICAL [...] entered by the nurse and reviewed by vt Nursing Notes: Kenn Hartman LPN 03/12/2023 10:02 AM Signed REVIEW [...] back pain/injury, denies back problems, denies sciatica, deniesknee/foot trouble, denies arthritis, or denies gout. When was patient's last Mammogram screening? 2022 [facility] Last Colonoscopy: 01/2020 Kenn Hartman LPN PHYSICAL EXAMINATION: General: The patient is 62 year old female, well nourished, well hydrated in no acute distress. Thepatient is oriented to time, place, and person. VITALS: Blood pressure 108/60, pulse 68, temperature 36.2 C (97.2 F), height 163.8 cm (5' 4.5"), weight 56.4 kg (124 lb 6.4 oz), last menstrual period 12/30/2007, SpO2 99%. Body mass index is 21.02 kg/m . Head - Normocephalic. EOM intact with sclera clear and no icterus noted. Mouth with mucus membranesmoist. Neck - supple with no jugular venous [...] obtained by others. Consultation requested by Dr. Ken Zarco for an opinion regarding patient's left [...] Low Vale Carpenter MD documented in this encounterMer[facility]12-19-2023 Nurse Note* Kenn Hartman LPN - 03/12/2023 9:57 AM EST REVIEW OF SYSTEMS: General: The patient denies [...] back pain/injury, denies back problems, denies sciatica, deniesknee/foot trouble, denies arthritis, or denies gout. When was patient's last Mammogram screening? 2022 [facility] Last Colonoscopy: 01/2020 Kenn Hartman LPN documented in this encounterMer[facility]03-28-2023 History of Present illness Narrative* Martha Darby MD - 06/19/2022 8:54 AM EDT HISTORY AND PHYSICAL Carrie Shellie Piedad 1960 REFERRING PHYSICIAN: Martha Darby MD CHIEF COMPLAINT: Consult (EGD) HPI: [...] has had some problems with constipating symptoms andactually took some magnesium citrate and that seemed [...] nourished, well hydrated in no acute distress. Thepatient is oriented to time, place, and person. VITALS: Blood pressure 108/78, pulse 77, temperature 36.2 C (97.1 F), height 165.1 cm (5' 5"), weight 55.6 kg (122 lb 9.6 oz), last menstrual period 12/30/2007, SpO2 97 %. HEENT: Normal cephalic, ataumatic, pupils are equally round, sclera are anicteric, mucous membranesare moist, oropharynx is clear. Neck has no [...] need to do. If her upper abdominal symptomswere to recur I think it would make [...] instructed to follow-up with me as needed. Martha Darby III, MD documented in this encounterMercy [facility]03-22-2023 Miscellaneous Notes* Telephone Encounter - Marcie Babb RN - 06/13/2022 8:46 AM EDT Pt called and is notified of providers results. Pt voices understanding. Marcie Babb RN * Telephone Encounter - Lynn Cedeño LPN - 06/13/2022 8:07 AM EDT Left message for patient with negative results.Lynn Cedeño LPN * Telephone Encounter - KEZIA Wagner - 06/13/2022 7:29 AM EDT Negative for COVID and flu documented in this encounterMercy [facility] Hospital03-21-2023 History of Present illness Narrative* Karen Vasquez APRN.SILVANA - 06/12/2022 9:47 AM EDT Subjective HPI Carrie Herbert is a 62 year old female who presents with 3 days of chills, feeling tired,nausea, diarrhea, body aches. She has not had [...] Wt 55.1 kg (121 lb 6.4 oz) LMP1 SpO2 97% BMI 19.89 kg/m PAST MEDICAL [...] illness Karen Vasquez APRN.CNP documented in this encounterMercy [facility]03-21-2023 Instructions* Patient Instructions* Karen Vasquez APRN.CNP - 06/12/2022 9:47 AM [...] illness Karen Vasquez APRN.CNP documented in this encounterMercy [facility]11-25-2022 Miscellaneous Notes* Telephone Encounter - Bernadette Galan - 02/16/2022 12:06 PM EST Patient chose to cancel EGD since symptoms have improved. Both procedure and follow up appointment with Marcie Schaefer have been cancelled. documented in this encounterMercy [facility] Hospital11-11-2022 Nurse Note* Julee Chamorro RN - 02/02/2022 10:43 AM EST REVIEW OF SYSTEMS: General: The patient denies [...] back pain/injury, denies back problems, denies sciatica, deniesknee/foot trouble, denies arthritis, or denies gout. When was patient's last Mammogram screening? 09/2021 Last Colonoscopy: 11/2019 Julee Chamorro RN documented in this encounterMercy [facility]11-11-2022 History of Present illness Narrative* Martha Darby MD - 02/02/2022 9:32 AM EST HISTORY AND PHYSICAL Carrie Hensley Piedad 1960 REFERRING PHYSICIAN: Ken Zarco MD CHIEF COMPLAINT: Consult (C/o stomach [...] complaints: . Carrie denies heartburn. Carrie denies dysphagia.Carrie notes a distant history of a history of ulcers/ peptic ulcer disease. Carrie has undergone prior endoscopy. 2019 The patient is being seen by me today at the request of Dr. Ken Zarco MD, MD for my opinion andadvice regarding Gastroesophageal reflux disease, unspecified whether esophagitis [...] nourished, well hydrated in no acute distress. Thepatient is oriented to time, place, and person. VITALS: Blood pressure 122/64, pulse 86, temperature 36.6 C (97.8 F), height 166.4 cm (5' 5.5"), weight 57.1 kg (125 lb 12.8 oz), last menstrual period 12/30/2007, SpO2 98 %. Body mass index is 20.62kg/m . HEENT: Normal cephalic, ataumatic, pupils are equally round, sclera are anicteric, mucous membranesare moist, oropharynx is clear. Neck has no [...] pain A letter was sent to Dr. Ken Zarco MD, MD indicating the above finding for this patient. Return to Clinic: The patient is instructed to follow-up with me 1 week post operatively. COVID (Procedure Consent) Procedure Criteria Procedure Criteria: Yes Elective The surgeon/proceduralist and patient have discussed in detail therisk of exposure to and/or potential harm posed by the COVID-19 virus with having a surgery/procedure at this time versus the risk of delaying the surgery/procedure. It is not possible to know eitherthe risk of delaying the surgery or procedure or chance of getting an infection with perfect accuracy, but a joint decision was made between the patient and the surgeon/proceduralist to proceed at this time with the scheduled surgery/procedure as indicated on the consent form. Martha Darby III, MD documented in this encounterMercy [facility]07-18-2022 History of Present illness Narrative* Martha Darby MD - 10/09/2021 3:58 PM EDT Preoperative diagnosis: Abnormal mammogram to right breast [...] made. Under ultrasound guidance 2 needle core biopsieswere obtained. Under ultrasound guidance a small titanium clip was placed. Sterile dressings were applied. A mammogram was ordered. * Julee Chamorro RN - 10/09/2021 1:39 PM EDT UNIVERSAL PROTOCOL / SAFETY CHECKLIST Procedure to [...] applicable. Julee Chamorro RN documented in this encounterMercy Health [facility] Hospital07-18-2022 History of Present illness Narrative* Lala Pierreo Rene - 10/09/2021 2:50 PM EDT Radiology Service Progress Note PATIENT NAME: Carrie Herbert DATE OF SERVICE: October 09, 2021 TIME: 2:19 PM PATIENT IDENTITY VERIFICATION COMPLETED USING TWO (2) IDENTIFIERS: Name and Date of confirmedby patient verbally. FALL SCREENING: Has the patient had 2 falls in the last year or 1 fall with injury or currently using an Ambulatory Assistive Device (Walker, Cane, Wheelchair, Crutches, etc.)? No PATIENT GENDER DATA: Female. status: : No status: NO. PATIENT RELEVANT IMPLANT DATA REVIEWED: Not Applicable RADIOLOGY DEPARTMENT: Mammography PERIPHERAL IV DATA: Not applicable SIGNED BY: Lala Pierreo Rene October 09, 2021 2:19 PM documented in this encounterMercy Health Anderson Hospital07-18-2022 Instructions* Patient Instructions* Julee Chamorro RN - 10/09/2021 1:51 PM EDT The following instructions are important for you related to your office visit today with the [facility] Surgeons. Instructions After OFFICE BASED BREAST BIOPSY Please do not take aspirin or other blood thinners for the next few days. After the procedure, Steri-Strips and a dressing will be placed on your small incision. The dressing may be removed in two tothree days after the procedure. The Steri-Strips should [...] If you have significant bruising, an ice packmay improve your discomfort. If you note any additional difficulties, questions, or concerns, you should contact our office immediately @ [phone] and ask to be transferred to the General Surgery department. documented in this encounterMercy Health [facility] Hospital06-28-2022 Miscellaneous Notes* Telephone Encounter - Thelma Mili - 09/19/2021 8:26 AM EDT Patient given results and verbalized understanding of instructions given. Thelma Mili * Telephone Encounter - Sumit Garza APRN.CNP - 09/19/2021 8:21 AM EDT You tested positive for COVID-19 Follow the [...] care provider or schedule a visit with [facility]. A test is not recommended to return to work/school when meeting the above criteria. documented in this encounterMercy Health [facility] Hospital06-27-2022 History of Present illness Narrative* Joseph Vann MD - 09/18/2021 11:31 AM EDT Patient presents with: Sinus Problem: cough, head [...] mouth every 6 hours as needed (dizziness). (Patientnot taking: Reported on 03/21/2021 ) No current facility-administered medications for this visit. ALLERGIES: ALLERGIES Allergen Reactions Bactrim [Sulfametho* GI Upset VITALS: BP 110/68 Pulse 80 Temp 36.8 C (98.3 F) Resp 16 Wt 55.3 kg (122 lb) LMP 12/30/2007 CiR143% BMI 19.99 kg/m PHYSICAL EXAM: GEN: pleasant, [...] TABLET Joseph Vann MD documented in this encounterMercy Health Anderson HospitalEvaluation + Plan note Future Appointments Appointment Date:10/02/2023 05:00:00 AM Scheduled Provider: Location:[facility] Appointment Type:NM Injection [place] Node Appointment Date:10/02/2023 08:00:00 AM Scheduled Provider: Location:[facility] Appointment Type:NM Injection [place] Node Appointment Date:10/10/2023 03:30:00 PM Scheduled Provider:DEBBIE MERINO MD Location:[facility] Appointment Type:BS OV Post Op Future Scheduled Tests Radiology* MA Biopsy OR 09/12/23 * NM Injection [place] Node 10/02/23 * NM Injection [place] Node 10/02/23 [facility] Evaluation + Plan note Future Appointments Appointment Date:10/10/2023 03:30:00 PM Scheduled Provider:DEBBIE MERINO MD Location:[facility] Appointment Type:BS OV Post Op Future Scheduled Tests Radiology* MA Biopsy OR 09/12/23 * NM Injection [place] Node 10/02/23 [facility] Evaluation + Plan note Future Appointments Appointment Date:04/16/2024 03:40:00 PM Scheduled Provider:DEBBIE MERINO MD Location:[facility] Appointment Type:BS OV Follow Up Future Scheduled Tests Radiology* MA Biopsy OR 09/12/23 * US Breast Right Limited 04/11/24 * NM Injection [place] Node 10/02/23 [facility] Evaluation + Plan note Future Appointments Appointment Date:11/05/2024 10:30:00 AM Scheduled Provider: Location:[facility] Appointment Type:MA Mammogram Diagnostic Bilateral w/ Jared Appointment Date:11/05/2024 11:00:00 AM Scheduled Provider: Location:[facility] Appointment Type:US Breast Right Limited Appointment Date:11/05/2024 11:30:00 AM Scheduled Provider:DEBBIE MERINO MD Location:[facility] Appointment Type:BS OV Follow Up w/ Imaging Future Scheduled Tests Radiology* MA Mammo Diagnostic Bilateral w/Geo 11/05/24 * US Breast Right Limited 11/05/24 [facility] evaluLeadiD + Plan note Future Appointments Appointment Date:08/26/2024 02:00:00 PM Scheduled Provider: Location:[facility] Appointment Type:US Biopsy Breast Right 1st Lesion Future Scheduled Tests Radiology* US Biopsy Breast Right 1st Lesion 08/26/24 [facility] evGeneral [employer] note* Diagnosis Acute viral syndrome- Primary Unspecified viral infection, in conditions classified elsewhere and of unspecified site Nausea Nausea alone documented in this encounter [facility] noteNo assessment information availableWTriHealth [facility] Work Phone: [facility]* Diagnosis Abnormal mammogram- Primary Abnormal mammogram, unspecified documented in this encounter [facility] note* Diagnosis Abnormal mammogram Abnormal mammogram, unspecified documented in this encounter [facility] note* Diagnosis Gastroesophageal reflux disease, unspecified whether esophagitis present- Primary Epigastric pain Abdominal pain, epigastric documented in this encounter [facility] note* Diagnosis Flu-like symptoms- Primary Other general symptoms Nausea Nausea alone documented in this encounter [facility] note* Diagnosis Epigastric pain- Primary Abdominal pain, epigastric Diarrhea, unspecified type documented in this encounter [facility] note* Diagnosis Lymphadenopathy, axillary- Primary Enlargement of lymph nodes documented in this encounter [facility] note* Diagnosis Lymphadenopathy, axillary- Primary Enlargement of lymph nodes Malignant neoplasm of female breast, unspecified estrogen receptor status, unspecified laterality, unspecified site of breast (HCC) documented in this encounter [facility] note* Diagnosis Breast cancer 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, left (HCC)- Primary 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) Secondary and unspecified malignant neoplasm of lymph nodes of axilla and upper limb Malignant neoplasm of left breast in female, estrogen receptor negative, unspecified site of breast (HCC) (HCC) Triple negative breast cancer (HCC) History of right breast cancer Abnormal MRI, breast Other (abnormal) findings on radiological examination of breast [facility] Onset Date Resolution Status Encounter for insertion of venous access port [facility] Work Phone: Evaluation note* Diagnosis Malignant neoplasm of left breast in female, estrogen receptor negative, unspecified site of breast (HCC) (HCC)- Primary Breast cancer 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, left (HCC) Malaise and fatigue Other malaise and fatigue 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) Secondary and unspecified malignant neoplasm of lymph nodes of axilla and upper limb documented [facility] encounter [facility]* Diagnosis Malignant neoplasm of left breast in female, estrogen receptor negative, unspecified site of breast (HCC) (HCC)- Primary Breast cancer 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, left (HCC) Malaise and fatigue Other malaise and fatigue 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) Secondary and unspecified malignant neoplasm of lymph nodes of axilla and upper limb [facility] Diagnosis Malignant neoplasm of left breast in female, estrogen receptor negative, unspecified site of breast (HCC) (HCC)- Primary 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) Secondary and unspecified malignant neoplasm of lymph nodes of axilla and upper limb History of right breast cancer [facility]* Diagnosis Malignant neoplasm of left breast in female, estrogen receptor negative, unspecified site of breast (HCC) (HCC)- Primary Breast cancer 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, left (HCC) Malaise and fatigue Other malaise and fatigue 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) Secondary and unspecified malignant neoplasm of lymph nodes of axilla and upper limb History of right breast cancer [facility]* Diagnosis Malignant neoplasm of left breast in female, estrogen receptor negative, unspecified site of breast (HCC) (HCC) Breast cancer 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, left (HCC) Malaise and fatigue Other malaise and fatigue documented [facility] encounter [facility]* Diagnosis Malignant neoplasm of left breast in female, estrogen receptor negative, unspecified site of breast (HCC)- Primary [facility] Malignant neoplasm of left breast in female, estrogen receptor negative, unspecified site of breast (HCC)- Primary 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) Secondary and unspecified malignant neoplasm of lymph nodes of axilla and upper limb [facility] Diagnosis 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)- Primary Secondary and unspecified malignant neoplasm of lymph nodes of axilla and upper limb Malignant neoplasm of left breast in female, estrogen receptor negative, unspecified site of breast (HCC) Breast cancer 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, left (HCC) Malaise and fatigue Other malaise and fatigue [facility] Diagnosis Malignant neoplasm of left breast in female, estrogen receptor negative, unspecified site of breast (HCC) Breast cancer 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, left (HCC) Malaise and fatigue Other malaise and fatigue [facility]* Diagnosis Breast cancer 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, left (HCC)- Primary Triple negative breast cancer (HCC) [facility]* Diagnosis Malignant neoplasm of left breast in female, estrogen receptor negative, unspecified site of breast (HCC) Breast cancer 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, left (HCC) Malaise and fatigue Other malaise and fatigue [facility]* Diagnosis Malignant neoplasm of left breast in female, estrogen receptor negative, unspecified site of breast (HCC)- Primary 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) Secondary and unspecified malignant neoplasm of lymph nodes of axilla and upper limb [facility]* Diagnosis Malignant neoplasm of overlapping sites of left breast in female, estrogen receptor negative (HCC)- Primary Breast cancer 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, left (HCC) Triple negative breast cancer (HCC) [facility]* Diagnosis Malignant neoplasm of left breast in female, estrogen receptor negative, unspecified site of breast (HCC)- Primary Breast cancer 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, left (HCC) Malaise and fatigue Other malaise and fatigue Triple negative breast cancer (HCC) [facility]* Diagnosis Pulsatile tinnitus- Primary Unspecified tinnitus [facility] Diagnosis Breast cancer 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, left (HCC)- Primary Triple negative breast cancer (HCC) Malignant neoplasm of overlapping sites of left breast in female, estrogen receptor negative (HCC) [facility] Diagnosis Breast cancer 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, left (HCC)- Primary Triple negative breast cancer (HCC) Malignant neoplasm of overlapping sites of left breast in female, estrogen receptor negative (HCC) [facility] Diagnosis Breast cancer 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, left (HCC)- Primary Triple negative breast cancer (HCC) Malignant neoplasm of overlapping sites of left breast in female, estrogen receptor negative (HCC) [facility] Diagnosis Breast cancer 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, left (HCC)- Primary Triple negative breast cancer (HCC) Malignant neoplasm of overlapping sites of left breast in female, estrogen receptor negative (HCC) [facility] Diagnosis Breast cancer 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, left (HCC)- Primary Triple negative breast cancer (HCC) Malignant neoplasm of overlapping sites of left breast in female, estrogen receptor negative (HCC) [facility] Diagnosis Breast cancer 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, left (HCC)- Primary Triple negative breast cancer (HCC) Malignant neoplasm of overlapping sites of left breast in female, estrogen receptor negative (HCC) [facility] Diagnosis Malignant neoplasm of left breast in female, estrogen receptor negative, unspecified site of breast (HCC) Breast cancer 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, left (HCC) Malaise and fatigue Other malaise and fatigue [facility] Diagnosis Breast cancer 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, left (HCC)- Primary Triple negative breast cancer (HCC) Malignant neoplasm of overlapping sites of left breast in female, estrogen receptor negative (HCC) [facility] Diagnosis Malignant neoplasm of left breast in female, estrogen receptor negative, unspecified site of breast (HCC)- Primary Nausea Nausea alone CINV (chemotherapy-induced nausea and vomiting) Nausea with vomiting [facility] Diagnosis Malignant neoplasm of left breast in female, estrogen receptor negative, unspecified site of breast (HCC)- Primary 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) Secondary and unspecified malignant neoplasm of lymph nodes of axilla and upper limb [facility] Diagnosis Breast cancer 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, left (HCC)- Primary Triple negative breast cancer (HCC) Malignant neoplasm of overlapping sites of left breast in female, estrogen receptor negative (HCC) [facility] Diagnosis Breast cancer 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, left (HCC)- Primary Triple negative breast cancer (HCC) Malignant neoplasm of overlapping sites of left breast in female, estrogen receptor negative (HCC) [facility] Diagnosis Breast cancer 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, left (HCC)- Primary Triple negative breast cancer (HCC) Malignant neoplasm of overlapping sites of left breast in female, estrogen receptor negative (HCC) [facility] Diagnosis Malignant neoplasm of left breast in female, estrogen receptor negative, unspecified site of breast (HCC)- Primary 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) Secondary and unspecified malignant neoplasm of lymph nodes of axilla and upper limb Breast cancer 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, left (HCC) Malaise and fatigue Other [facility]aise [facility] Malignant neoplasm of overlapping sites of left breast in female, estrogen receptor negative (HCC)- Primary 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) Secondary and unspecified malignant neoplasm of lymph nodes of axilla and upper limb [facility] Breast cancer 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, left (HCC)- Primary Triple negative breast cancer (HCC) Malignant neoplasm of overlapping sites of left breast in female, estrogen receptor negative (HCC) [facility] Malignant neoplasm of overlapping sites of left breast in female, estrogen receptor negative (HCC) 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) Secondary and unspecified malignant neoplasm of lymph nodes of axilla and upper limb [facility] Diagnosis Malignant neoplasm of left breast in female, estrogen receptor negative, unspecified site of breast (HCC) Breast cancer 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, left (HCC) Malaise and fatigue Other malaise and fatigue [facility] Diagnosis Malignant neoplasm of left breast in female, estrogen receptor negative, unspecified site of breast (HCC)- Primary Breast cancer 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, left (HCC) Encounter for monitoring cardiotoxic drug therapy Encounter for therapeutic drug monitoring [facility] Diagnosis Malignant neoplasm of overlapping sites of left breast in female, estrogen receptor negative (HCC)- Primary Breast cancer 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, left (HCC) Palpitations Encounter for monitoring cardiotoxic drug therapy Encounter for therapeutic drug monitoring Muscle weakness Muscle weakness (generalized) [facility] cancer 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, left (HCC)- Primary [facility] Diagnosis Malignant neoplasm of overlapping sites of left breast in female, estrogen receptor negative (HCC)- Primary Breast cancer 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, left (HCC) [facility] Diagnosis Malignant neoplasm of left breast in female, estrogen receptor negative, unspecified site of breast (HCC)- Primary [facility] Diagnosis Malignant neoplasm of left breast in female, estrogen receptor negative, unspecified site of breast (HCC) Breast cancer 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, left (HCC) Malaise and fatigue Other malaise and fatigue [facility] Diagnosis Breast cancer 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, left (HCC)- Primary Malignant neoplasm of left breast in female, estrogen receptor negative, unspecified site of breast (HCC) 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) Secondary and unspecified malignant neoplasm of lymph nodes of axilla and upper limb [facility] Diagnosis Malignant neoplasm of left breast in female, estrogen receptor negative, unspecified site of breast (HCC)- Primary Breast cancer 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, left (HCC) Encounter for monitoring cardiotoxic drug therapy Encounter for therapeutic drug monitoring [facility] Diagnosis Malignant neoplasm of left breast in female, estrogen receptor negative, unspecified site of breast (HCC) [facility] Diagnosis Malignant neoplasm of overlapping sites of left breast in female, estrogen receptor negative (HCC)- Primary 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) Secondary and unspecified malignant neoplasm of lymph nodes of axilla and upper limb Breast cancer 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, left (HCC) Triple negative [facility] cancer (HCC) [facility] 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, left (HCC)- Primary History of right breast cancer H/O bilateral breast implants Breast replaced by other means At risk for lymphedema Other specified conditions influencing health status [facility] Diagnosis Malignant neoplasm of overlapping sites of left breast in female, estrogen receptor negative (HCC)- Primary Malignant neoplasm of left breast in female, estrogen receptor negative, unspecified site of breast (HCC) Breast cancer 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, left (HCC) Malaise and fatigue Other malaise and fatigue [facility] Diagnosis Malignant neoplasm of left breast in female, estrogen receptor negative, unspecified site of breast (HCC)- Primary 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) Secondary and unspecified malignant neoplasm of lymph nodes of axilla and upper limb [facility] Diagnosis Malignant neoplasm of left breast in female, estrogen receptor negative, unspecified site of breast (HCC)- Primary 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) Secondary and unspecified malignant neoplasm of lymph nodes of axilla and upper limb [facility] Diagnosis Malignant neoplasm of left breast in female, estrogen receptor negative, unspecified site of breast (HCC)- Primary Breast cancer 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, left (HCC) Malaise and fatigue Other malaise and fatigue 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) Secondary and unspecified malignant neoplasm of lymph nodes of axilla and upper limb [facility] Diagnosis Malignant neoplasm of upper-outer quadrant of left breast in female, estrogen receptor negative (HCC)- Primary [facility] Diagnosis Malignant neoplasm of upper-outer quadrant of left breast in female, estrogen receptor negative (HCC)- Primary [facility] Diagnosis Malignant neoplasm of upper-outer quadrant of left breast in female, estrogen receptor negative (HCC)- Primary [facility] Diagnosis Malignant neoplasm of upper-outer quadrant of left breast in female, estrogen receptor negative (HCC)- Primary [facility] Diagnosis Malignant neoplasm of upper-outer quadrant of left breast in female, estrogen receptor negative (HCC)- Primary [facility] Diagnosis Malignant neoplasm of left breast in female, estrogen receptor negative, unspecified site of breast (HCC) Breast cancer 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, left (HCC) Malaise and fatigue Other malaise and fatigue [facility] Diagnosis Malignant neoplasm of left breast in female, estrogen receptor negative, unspecified site of breast (HCC)- Primary Triple negative breast cancer (HCC) Drug rash Dermatitis due to drugs and medicines taken internally [facility] Diagnosis Malignant neoplasm of upper-outer quadrant of left breast in female, estrogen receptor negative (HCC)- Primary [facility] Diagnosis Malignant neoplasm of left breast in female, estrogen receptor negative, unspecified site of breast (HCC)- Primary 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) Secondary and unspecified malignant neoplasm of lymph nodes of axilla and upper limb [facility] Diagnosis Malignant neoplasm of upper-outer quadrant of left breast in female, estrogen receptor negative (HCC)- Primary [facility] Diagnosis Malignant neoplasm of upper-outer quadrant of left breast in female, estrogen receptor negative (HCC)- Primary [facility] Diagnosis Malignant neoplasm of upper-outer quadrant of left breast in female, estrogen receptor negative (HCC)- Primary [facility] Diagnosis Malignant neoplasm of left breast in female, estrogen receptor negative, unspecified site of breast (HCC)- Primary [facility] Diagnosis Malignant neoplasm of left breast in female, estrogen receptor negative, unspecified site of breast (HCC)- Primary 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) Secondary and unspecified malignant neoplasm of lymph nodes of axilla and upper limb Breast cancer 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, left (HCC) Malaise and fatigue Other malaise and fatigue [facility] Diagnosis Malignant neoplasm of left breast in female, estrogen receptor negative, unspecified site of breast (HCC) Breast cancer 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, left (HCC) Malaise and fatigue Other malaise and fatigue [facility] Diagnosis Malignant neoplasm of left breast in female, estrogen receptor negative, unspecified site of breast (HCC)- Primary [facility] Diagnosis Malignant neoplasm of left breast in female, estrogen receptor negative, unspecified site of breast (HCC)- Primary 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) Secondary and unspecified malignant neoplasm of lymph nodes of axilla and upper limb [facility] Diagnosis Radiotherapy follow-up- Primary Radiotherapy follow-up examination Malignant neoplasm of upper-outer quadrant of left breast in female, estrogen receptor negative (HCC) [facility] Diagnosis Malignant neoplasm of left breast in female, estrogen receptor negative, unspecified site of breast (HCC) Breast cancer 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, left (HCC) Malaise and fatigue Other malaise and fatigue [facility] Diagnosis Malignant neoplasm of left breast in female, estrogen receptor negative, unspecified site of breast (HCC)- Primary Breast cancer 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, left (HCC) 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) Secondary and unspecified malignant neoplasm of lymph nodes of axilla and upper limb Muscle cramp, nocturnal Cramp of limb [facility] Diagnosis Malignant neoplasm of left breast in female, estrogen receptor negative, unspecified site of breast (HCC)- Primary 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) Secondary and unspecified malignant neoplasm of lymph nodes of axilla and upper limb [facility] Diagnosis Breast cancer 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, left (HCC)- Primary Malignant neoplasm of overlapping sites of left breast in female, estrogen receptor negative (HCC) [facility] Diagnosis Breast cancer 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, left (HCC) Malignant neoplasm of overlapping sites of left breast in female, estrogen receptor negative (HCC) [facility] Diagnosis Encounter for follow-up surveillance of breast cancer- Primary Unspecified follow-up examination [facility] Diagnosis H/O bilateral breast implants- Primary Breast replaced by other means 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) Secondary and unspecified malignant neoplasm of lymph nodes of axilla and upper limb [facility] Diagnosis Triple negative [facility] cancer (HCC)- Primary [facility] Diagnosis Malignant neoplasm of left breast in female, estrogen receptor negative, unspecified site of breast (HCC)- Primary Malignant neoplasm of overlapping sites of left breast in female, estrogen receptor negative (HCC) Triple negative breast cancer (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) Secondary and unspecified malignant neoplasm of lymph nodes of axilla and upper limb [facility] Diagnosis Malignant neoplasm of overlapping sites of left breast in female, estrogen receptor negative (HCC) Triple negative breast cancer (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) [facility] Diagnosis Malignant neoplasm of left breast in female, estrogen receptor negative, unspecified site of breast (HCC)- Primary 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) Secondary and unspecified malignant neoplasm of lymph nodes of axilla and upper limb 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) [facility] Diagnosis Malignant neoplasm of left breast in female, estrogen receptor negative, unspecified site of breast (HCC)- Primary 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) [facility] Diagnosis Malignant neoplasm of left breast in female, estrogen receptor negative, unspecified site of breast (HCC)- Primary 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) Secondary and unspecified malignant neoplasm of lymph nodes of axilla and upper limb 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) [facility] Diagnosis Malignant neoplasm of left breast in female, estrogen receptor negative, unspecified site of breast (HCC)- Primary 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) Secondary and unspecified malignant neoplasm of lymph nodes of axilla and upper limb 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) [facility] Diagnosis Malignant neoplasm of left breast in female, estrogen receptor negative, unspecified site of breast (HCC)- Primary 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) Secondary and unspecified malignant neoplasm of lymph nodes of axilla and upper limb 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) [facility] Diagnosis Malignant neoplasm of overlapping sites of left breast in female, estrogen receptor negative (HCC)- Primary 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) Triple negative breast cancer (HCC) 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) [facility] Diagnosis Malignant neoplasm of left breast in female, estrogen receptor negative, unspecified site of breast (HCC)- Primary 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) Secondary and unspecified malignant neoplasm of lymph nodes of axilla and upper limb 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) [facility] Diagnosis Malignant neoplasm of overlapping sites of left breast in female, estrogen receptor negative (HCC)- Primary 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) Secondary and unspecified malignant neoplasm of lymph nodes of axilla and upper limb Triple negative breast cancer (HCC) Left arm numbness Disturbance of skin sensation [facility] Diagnosis Malignant neoplasm of overlapping sites of left breast in female, estrogen receptor negative (HCC) 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) Secondary and unspecified malignant neoplasm of lymph nodes of axilla and upper limb Triple negative breast cancer (HCC) Left arm numbness Disturbance of skin sensation [facility] Diagnosis Malignant neoplasm of overlapping sites of left breast in female, estrogen receptor negative (HCC)- Primary Personal history of irradiation Personal history of irradiation, presenting hazards to health Left arm numbness Disturbance of skin sensation 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) Malignant neoplasm of right breast in female, estrogen receptor negative, unspecified site of breast (HCC) [facility] Diagnosis Personal history of irradiation- Primary Personal history of irradiation, presenting hazards to health Malignant neoplasm of overlapping sites of left breast in female, estrogen receptor negative (HCC) 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) [facility] Diagnosis Malignant neoplasm of overlapping sites of left breast in female, estrogen receptor negative (HCC)- Primary 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) Triple negative breast cancer (HCC) 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) [facility] Diagnosis Brachial plexus disorders- Primary Brachial plexus lesions 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) [facility] Diagnosis Malignant neoplasm of left breast in female, estrogen receptor negative, unspecified site of breast (HCC)- Primary 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) Secondary and unspecified malignant neoplasm of lymph nodes of axilla and upper limb 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) [facility] Diagnosis 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 Left arm numbness Disturbance of skin sensation Muscle weakness Muscle weakness (generalized) Malignant neoplasm of left breast in female, estrogen receptor negative, unspecified site of breast (HCC) [facility] Diagnosis Chemotherapy induced neutropenia- Primary Drug induced neutropenia Breast cancer 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, left (HCC) Triple negative breast cancer (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) [facility] Diagnosis Chemotherapy induced neutropenia- Primary Drug induced neutropenia Breast cancer 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, left (HCC) Triple negative breast cancer (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) [facility] Diagnosis Chemotherapy induced neutropenia- Primary Drug induced neutropenia Breast cancer 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, left (HCC) Triple negative breast cancer (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) [facility] Diagnosis Malignant neoplasm of left breast in female, estrogen receptor negative, unspecified site of breast (HCC)- Primary 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) Secondary and unspecified malignant neoplasm of lymph nodes of axilla and upper limb 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) [facility] Diagnosis Malignant neoplasm of left breast in female, estrogen receptor negative, unspecified site of breast (HCC)- Primary 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) Secondary and unspecified malignant neoplasm of lymph nodes of axilla and upper limb 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) Chemotherapy induced neutropenia Drug induced 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) [facility] Diagnosis Malignant neoplasm of left breast in female, estrogen receptor negative, unspecified site of breast (HCC)- Primary 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) Secondary and unspecified malignant neoplasm of lymph nodes of axilla and upper limb 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) [facility] Diagnosis Chemotherapy induced neutropenia- Primary Drug induced neutropenia Breast cancer 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, left (HCC) Triple negative breast cancer (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) [facility] Diagnosis Chemotherapy induced neutropenia- Primary Drug induced neutropenia Breast cancer 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, left (HCC) Triple negative breast cancer (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) [facility] Diagnosis Brachial plexus disorders Brachial plexus lesions [facility] Diagnosis Chemotherapy induced neutropenia- Primary Drug induced neutropenia Breast cancer 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, left (HCC) Triple negative breast cancer (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) [facility] Diagnosis Angiosarcoma of breast (HCC)- Primary 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) History of right breast cancer History of left breast cancer H/O breast augmentation Breast replaced by other means Triple negative breast cancer (HCC) [facility] Diagnosis Triple negative [facility] cancer (HCC) [facility] Diagnosis Malignant neoplasm of upper-outer quadrant of left breast in female, estrogen receptor negative (HCC)- Primary [facility] Diagnosis Angiosarcoma of breast (HCC)- Primary 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) Secondary and unspecified malignant neoplasm of lymph nodes of axilla and upper limb 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) [facility] Diagnosis Chemotherapy induced neutropenia- Primary Drug induced neutropenia Breast cancer 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, left (HCC) Triple negative breast cancer (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) [facility] Diagnosis Chemotherapy induced neutropenia- Primary Drug induced neutropenia Breast cancer 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, left (HCC) Triple negative breast cancer (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) [facility] Diagnosis Axillary mass, right- Primary [facility] Diagnosis Chemotherapy induced neutropenia- Primary Drug induced neutropenia Breast cancer 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, left (HCC) Triple negative breast cancer (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) [facility] Diagnosis Axillary mass, right- Primary [facility] Diagnosis Brachial plexus disorders- Primary Brachial plexus lesions 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) Secondary and unspecified malignant neoplasm of lymph nodes of axilla and upper limb Breast cancer 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, left (HCC) Triple negative breast cancer (HCC) Neuropathy, arm, left [facility] Diagnosis Chemotherapy induced neutropenia- Primary Drug induced neutropenia Breast cancer 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, left (HCC) Triple negative breast cancer (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) [facility] (H[facility])- [facility] Diagnosis Chemotherapy induced neutropenia- Primary Drug induced neutropenia Breast cancer 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, left (HCC) Triple negative breast cancer (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) [facility] 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)- Primary 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) Secondary and unspecified malignant neoplasm of lymph nodes of axilla and upper limb Breast cancer 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, left (HCC) Triple negative breast cancer (HCC) [facility] Chemotherapy induced neutropenia- Primary Drug induced neutropenia Breast cancer 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, left (HCC) Triple negative breast cancer (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) [facility] Chemotherapy induced neutropenia- Primary Drug induced neutropenia Breast cancer 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, left (HCC) Triple negative breast cancer (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) [facility] 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)- Primary 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) Secondary and unspecified malignant neoplasm of lymph nodes of axilla and upper limb Breast cancer 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, left (HCC) Triple negative breast cancer (HCC) [facility] Diagnosis 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)- Primary 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) Secondary and unspecified malignant neoplasm of lymph nodes of axilla and upper limb Triple negative breast cancer (HCC) Brachial plexus disorders Brachial plexus lesions documented in this encounter [facility] note* Diagnosis Malignant neoplasm of left breast in female, estrogen receptor negative, unspecified site of breast (HCC)- Primary 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) Secondary and unspecified malignant neoplasm of lymph nodes of axilla and upper limb Triple negative breast cancer (HCC) Brachial plexus disorders Brachial plexus lesions Angiosarcoma of breast (HCC) documented in this encounter [facility] Narrative No data available for this section [facility] Hospital Discharge instructions No data available for this section [facility] Progress note No data available for this section [facility] Reason for referral (narrative)* Diagnostic Procedure Only (Routine) - Closed Specialty Diagnoses / Procedures Referred By Dary swenson Referred To Contact [facility] Diagnoses Abnormal mammogram Procedures RADHA DIAGNOSTIC RT DIAGNOSTIC MAMMOGRAPHY COMPUTER-AIDED DETCMartha Tejeda MD [address] [place] [address] [facility] Imaging [address] [place] [address] Referral ID Status Reason Start Date Expiration Date V isits Requested Visits Authorized [id number] Closed Auto-Generate d Referral OON/Self Pay Override 10/09/2021 11/08/2022 [address] [facility] for referral (narrative)* Diagnostic Procedure Only (Routine) - Closed Specialty Diagnoses / Procedures Referred By Dary t Referred To Contact [facility] IMAG[facility] Diagnoses Abnormal mammogram Procedures RADHA DIAGNOSTIC RT DIAGNOSTIC MAMMOGRAPHY COMPUTER-AIDED DETCJ Martha Giordano MD [address] [place] [address] Br Imaging [address] [place] [address] Referral ID Status Reason Start Date Expiration Date V isits Requested Visits Authorized [id number] Closed Auto-Generate d Referral OON/Self Pay Override 10/09/2021 11/08/2022 [address] [facility] for referral (narrative)* Outpatient Procedure (Routine) - Authorized Specialty Diagnoses / Procedures Referred By Dary swenson Referred To Contact [facility] Diagnoses Gastroesophageal reflux disease, unspecified whether esophagitis present Epigastric pain Procedures EGD DIAGNOSTIC ESOPHAGOGASTRODUODENOSC OPY TRANSORAL DIAGNOSTIC Martha Darby MD [address] [place] [address] [facility] [place] [address] [place] [address] Referral ID Status Reason Start Date Expiration Date Visits Requested Visits Authorized [id number] Authorized Auto-Generat ed Referral OON/Self Pay Override 2 02/02/2023 [address] [facility] for referral (narrative)* Diagnostic Procedure Only (Routine) - Authorized Specialty Diagnoses / Procedures Referred By Dary swenson Referred To Contact [facility] IMAG[facility] Diagnoses 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) Malignant neoplasm of left breast in female, estrogen receptor negative, unspecified site of breast (HCC) (HCC) Breast cancer 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, left (HCC) Triple negative breast cancer (HCC) History of right breast cancer Abnormal MRI, breast Procedures RADHA DIAGNOSTIC BILATERAL DIAGNOSTIC MAMMOGRAPHY COMPUT[place] [address] [place] [address] Br Imaging [address] [place] [address] Referral ID Status Reason Start Date Expiration Date Visits Requested Visits Authorized [id number] Authorized Auto-Generat ed Referral 04/11/2023 05/10/2024 1 1 * Diagnostic Procedure Only (Routine) - Authorized Specialty Diagnoses / Procedures Referred By Contac t Referred To Contact [facility] IM[facility] Diagnoses Malignant neoplasm of left breast in female, estrogen receptor negative, unspecified site of breast (HCC) (HCC) Breast cancer 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, left (HCC) Abnormal MRI, breast Procedures US BREAST LTD LEFT US BREAST UNI REAL [place] [address] [place] [address] [facility] Imaging [address] [place] [address] Referral ID Status Reason Start Date Expiration Date Visits Requested Visits Authorized [id number] Authorized Auto-Generat ed Referral 04/11/2023 05/10/2024 1 1 * Diagnostic Procedure Only (Routine) - Authorized Specialty Diagnoses / Procedures Referred By Rosemaryac t Referred To Contact [facility] IM[facility] Diagnoses History of right breast cancer Abnormal MRI, breast Procedures US BREAST LTD RIGHT US BREAST UNI REAL [place] [address] [place] [address] Br Imaging [address] [place] [address] Referral ID Status Reason Start Date Expiration Date Visits Requested Visits Authorized [id number] Authorized Auto-Generat ed Referral 04/11/2023 05/10/2024 [address] [facility] for referral (narrative)* Outpatient Procedure (Routine) - Pending Review Specialty Diagnoses / Procedures Referred By Contac t Referred To Contact [facility] Diagnoses Pulsatile tinnitus Procedures US CAROTID ARTERIES [facility] DUPLEX SCAN EXTRACRANIAL ART COMPL BI STUDY Hellen Zhu DO [address] [place] [address] [facility] [place] [address] [place] [address] Referral ID Status Reason Start Date Expiration Date Visits Requested Visits Authorized [id number] Pending Review Auto-Generat ed Referral 06/17/2023 06/16/2024 [address] [facility] for referral (narrative)* Outpatient Procedure (Routine) - Authorized Specialty Diagnoses / Procedures Referred By Contac t Referred To Contact [facility] Diagnoses Malignant neoplasm of left breast in female, estrogen receptor negative, unspecified site of breast (HCC) Breast cancer 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, left (HCC) Encounter for monitoring cardiotoxic drug therapy Procedures ECHO ECHO TTHRC R-T 2D W/WOM-MODE COMPL SPEC&COLR D Hellen Zhu, DO [address] [place] [address] [facility] [place] [address] [place] [address] Referral ID Status Reason Start Date Expiration Date Visits Requested Visits Authorized [id number] Authorized Auto-Generat ed Referral 07/18/2023 07/17/2024 [address] [facility] for referral (narrative)* Outpatient Procedure (Urgent) - Pending Review Specialty Diagnoses / Procedures Referred By Contac t Referred To Contact [facility] Diagnoses Malignant neoplasm of overlapping sites of left breast in female, estrogen receptor negative (HCC) Breast cancer 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, left (HCC) Palpitations Encounter for monitoring cardiotoxic drug therapy Muscle weakness Procedures ECHO ECHO TTHRC R-T 2D W/WOM-MODE COMPL SPEC&COLR D Hellen Zhu, DO [address] [place] [address] [facility] [place] [address] [place] [address] Referral ID Status Reason Start Date Expiration Date Visits Requested Visits Authorized [id number] Pending Review Auto-Generat ed Referral 07/22/2023 07/21/2024 1 1 * Outpatient Procedure (Routine) - Pending Review Specialty Diagnoses / Procedures Referred By Contac t Referred To Contact [facility] Diagnoses Malignant neoplasm of overlapping sites of left breast in female, estrogen receptor negative (HCC) Breast cancer 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, left (HCC) Palpitations Encounter for monitoring cardiotoxic drug therapy Muscle weakness Procedures ECG COMPLETE ECG ROUTINE ECG W/LEAST 12 LDS W/I&R Hellen Zhu DO [address] [place] [address] [facility] [place] [address] [place] [address] Referral ID Status Reason Start Date Expiration Date Visits Requested Visits Authorized [id number] Pending Review Auto-Generat ed Referral 07/22/2023 07/21/2024 [address] [facility] for referral (narrative)* Diagnostic Procedure Only (Routine) - Authorized Specialty Diagnoses / Procedures Referred By Contac t Referred To Contact RADIO ULTRA [facility] Diagnoses Malignant neoplasm of left breast in female, estrogen receptor negative, unspecified site of breast (HCC) Procedures US BREAST LTD LEFT US BREAST UNI REAL [place] [address] [place] [address] Radio [facility] [address] [place] [address] Referral ID Status Reason Start Date Expiration Date Visits Requested Visits Authorized [id number] Authorized OON/Self Pay Override Financial Clearance Required - OON Payor 07/25/2023 08/23/2024 1 1 * Diagnostic Procedure Only (Routine) - Authorized Specialty Diagnoses / Procedures Referred By Contac t Referred To Contact [facility] Diagnoses Malignant neoplasm of left breast in female, estrogen receptor negative, unspecified site of breast (HCC) Procedures RADHA DIAGNOSTIC RIGHT DIAGNOSTIC MAMMOGRAPHY COMPUTER-[place] [address] [place] [address] [facility] [address] [facility] [place] [address] Referral ID Status Reason Start Date Expiration Date Visits Requested Visits Authorized [id number] Authorized OON/Self Pay Override Financial Clearance Required - OON Payor 07/25/2023 08/23/2024 [address] [facility] for referral (narrative)* Diagnostic Procedure Only (Routine) - Pending Review Specialty Diagnoses / Procedures Referred By Dary swenson Referred To Contact MOLECULAR & FUNCTIONAL IMAGING Diagnoses Malignant neoplasm of overlapping sites of left breast in female, estrogen receptor negative (HCC) Breast cancer 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, left (HCC) Triple negative breast cancer (HCC) Procedures NM PET/CT SKULL-THIGH SUBSEQUENT PET IMAGING CT ATTENUATION SKULL BASE MID-THIGH Hellen Zhu DO [address] [place] [address] Molecular & Functional Imaging [address] [place] [address] Referral ID Status Reason Start Date Expiration Date Visits Requested Visits Authorized [id number] Pending Review Auto-Generat ed Referral 08/22/2023 09/20/2024 [address] [facility] for referral (narrative)No reason for referral information availableWTriHealth [facility] Work Phone: Reason for visit Narrative* Diagnostic Procedure Only (Routine) - Closed Specialty Diagnoses / Procedures Referred By Dary swenson Referred To Contact [facility] Diagnoses Abnormal mammogram Procedures RADHA DIAGNOSTIC RT DIAGNOSTIC MAMMOGRAPHY COMPUTER-AIDED DETCJ Martha Giordano MD [address] [place] [address] Br Imaging [address] [place] [address] Referral ID Status Reason Start Date Expiration Date V isits Requested Visits Authorized [id number] Closed Auto-Generate d Referral OON/Self Pay Override 10/09/2021 11/08/2022 [address] [facility] for visit Narrative* Diagnostic Procedure Only (Routine) - Closed Specialty Diagnoses / Procedures Referred By Dary t Referred To Contact RADIO DXMAM [facility] Diagnoses Malignant neoplasm of left breast in female, estrogen receptor negative, unspecified site of breast (HCC) Procedures RADHA DIAGNOSTIC RIGHT DIAGNOSTIC MAMMOGRAPHY COMPUT[place] [address] [place] [address] Radio M[facility] [address] [place] [address] Referral ID Status Reason Start Date Expiration Date V isits Requested Visits Authorized [id number] Closed OON/Self Pay Override Financial Clearance Required - OON Payor 07/25/2023 08/23/2024 [address] [facility] for visit Narrative* MRI/CT (Routine) - Closed Specialty Diagnoses / Procedures Referred By Dary t Referred To Contact CT IMAGING Diagnoses Breast cancer 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, left (HCC) Malignant neoplasm of overlapping sites of left breast in female, estrogen receptor negative (HCC) Procedures CT ABD/PEL W IVCON CT ABD & PELVIS W/CONTRAST Hellen Zhu, DO [address] [place] [address] Phone: tel: fax: [place] [address] Referral ID Status Reason Start Date Expiration Date V isits Requested Visits Authorized [id number] Closed Auto-Generate d Referral 05/20/2024 06/19/2025 [address] 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 for visit Narrative* MRI/CT (Urgent) - Closed Specialty Diagnoses / Procedures Referred By Dary t Referred To Contact CT IMAGING Diagnoses Malignant neoplasm of overlapping sites of left breast in female, estrogen receptor negative (HCC) 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) Triple negative breast cancer (HCC) Left arm numbness Procedures CT CHEST W IVCON DIAGNOSTIC COMPUTED TOMOGRAPHY THORAX W/CONTRAST Hellen Zhu, DO [address] [place] [address] Phone: tel: fax: CT IMAGING [facility] Referral ID Status Reason Start Date Expiration Date V isits Requested Visits Authorized [id number] Closed Auto-Generate d Referral 09/22/2024 10/22/2025 [address] [facility] for visit Narrative* MRI/CT (Routine) - Closed Specialty Diagnoses / Procedures Referred By Dary t Referred To Contact [facility] IMAGING Diagnoses Brachial plexus disorders Procedures MRI BRACHIAL PLEXUS WO/W IVCON LEFT MRI CHEST W/O & W/[place] [address] [place] [address] Phone: tel: fax: [place] [address] Referral ID Status Reason Start Date Expiration Date V isits Requested Visits Authorized [id number] Closed Auto-Generate d Referral 10/07/2024 11/05/2025 [address] 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) Hellen Zhu, [address] [place] [address] Phone: tel: fax: Hematology/Oncology [address] [place] [address] Phone: tel: fax: Referral ID Status Reason Start Date Expiration Date V isits Requested Visits Authorized [id number] Authorized 10/08/2024 01/06/2025 99 99 [facility] Summary Purpose Family History No Family History Records Found Relationship Condition Age at Onset Recorded Date/T lucien grandfather Diabetes mellitus Unknown Relationship Condition Age at Onset Recorded Date/T lucien grandfather Diabetes mellitus Unknown grandmother Hypertension Unknown Cerebrovascular accident (CVA) Unknown Advance Directives No Advanced Directives Records FoundDocuments on File Type Date Recorded Patient Building Dismantler Expl anation Advance Directive(s) 07/21/2015 7:49 AM Advance Directive(s) 06/06/2015 3:22 PM Advance Directive Response Recorded Date/ Time Living Will Yes January 24 12:05pm Power of Information Systems Project Manager Yes January 25, 2020 12:05pm Documents on File Type Date Recorded Patient Building Dismantler Expl anation Advance Directive(s) 07/21/2015 7:49 AM Advance Directive(s) 06/06/2015 3:22 PM Advance Directive Response Recorded Date/ Time Living Will Yes January 24 11:05am Power of Information Systems Project Manager Yes January 25, 2020 11:05am Advance Directive Response Recorded Date/ Time Name of Medical Power of Information Systems Project Manager April 18, 2023 3:03pm Living Will Yes April 18 3:03pm Power of Information Systems Project Manager Yes April 18, 2023 3:03pm Health Concerns Infection Onset Date Last Indicated Resolved Time COVID-19 Rule-Out 09/18/2021 09/18/2021 Infection Onset Date Last Indicated Resolved Time COVID-19 Rule-Out 09/18/2021 09/18/2021 09/19/2021 3:52 AM EDT COVID-19 Confirmed 09/18/2021 09/18/2021 Chief Complaint and Reason for Visit Chief Complaint RT BREAST MASS Chief Complaint SCREENING, HX BREAST CANCER Chief Complaint SCREENING, HX BREAST CANCER SCREENING Chief Complaint SCREENING LEFT BREAST AXILLA MASS Chief Complaint SCREENING LEFT BREAST AXILLA MASS MALIGNANT NEOPLASM OF AXILLA LYMPH NODES MALIGNANT NEOPLASM OF BREAST Chief Complaint SCREENING LEFT BREAST AXILLA MASS MALIGNANT NEOPLASM OF AXILLA LYMPH NODES MALIGNANT NEOPLASM OF BREAST PORT PLACEMENT Insertion, Right Vascular Port Insertion, Right Vascular Port Reason for Visit Encounter for insert ion of venous access port Chief Complaint Admit Date R leg radiculopathy April 07, 2024 4 :40pm PORT REMOVAL April 29, 2024 1 2:53pm BACK RX HERE June 30, 2024 3:00 pm Reason for Visit Admit Date Encounter for insertion of venous access port April 29, 2024 12:53pm Chief Complaint Admit Date PORT REMOVAL April 29, 2024 1 2:53pm BACK RX HERE June 30, 2024 3:00 pm PS MODIFIER August 04, 2024 7:05a m Chief Complaint Admit Date BACK RX HERE June 30, 2024 3:00 pm PS MODIFIER August 04, 2024 7:05a m E-ORDER September 17, 2024 5:23 pm Chief Complaint Admit Date BACK RX HERE June 30, 2024 3:00 pm PS MODIFIER August 04, 2024 7:05a m E-ORDER September 17, 2024 5:23 pm NUMBNESS AND TINGLING HAND October 13 1:42pm NUM[employer]ESS AND [employer]INGL[employer] October 13 3:16pm Chief Complaint Admit Date PS MODIFIER August 04, 2024 7:05a m E-ORDER September 17, 2024 5:23 pm NUMBNESS [employer]INGL[employer] October 13 1:42pm NUMBNESS AND TINGL[employer] HAND October 13 3:16pm Brachial plexus disorders November 19, 2 025 9:17am Reason for Referral Specialty Diagnoses / Procedures Referred By Dary swenson Referred To Contact MR IMAGING Diagnoses Malignant neoplasm of overlapping sites of left breast in female, estrogen receptor negative (HCC) 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) Procedures MRI BREAST WO/W IVCON BILATERAL MRI BREAST WITHOUT&WITH CONTRAST W/CAD BILATERAL Hellen Zhu DO [address] [place] [address] [place] [address] Referral ID Status Reason Start Date Expiration Date Visits Requested Visits Authorized [id number] Authorized Auto-Generat ed Referral Patient Cleared - Admin/Chairm an/Director advise to proceed or did not respond 07/16/2023 08/14/2023 1 1 Specialty Diagnoses / Procedures Referred By Contac t Referred To Contact Plastic Surgery Diagnoses Breast cancer 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, left (HCC) History of right breast cancer H/O bilateral breast implants Procedures CONSULT TO PLASTIC SURGERY OFFICE/OUTPATIENT [facility] [address] [place] [address] [place] [id number] Referral ID Status Reason Start Date Expiration Date Visits Requested Visits Authorized [id number] Pending Review PCP Requested Referral 08/25/2023 08/24/2024 1 1 Specialty Diagnoses / Procedures Referred By Contac t Referred To Contact Diagnoses Malignant neoplasm of upper-outer quadrant of left breast in female, estrogen receptor negative (HCC) Procedures CT SIM PLANNING RADIATION ONCOLOGY THER RAD SIMULAJ-AIDED FIELD SETTING COMPLEX Melony Davis MD [address] [place] [address] Referral ID Status Reason Start Date Expiration Date Visits Requested Visits Authorized [id number] New Request PCP Requested Referral 10/30/2023 01/27/2024 1 1 Specialty Diagnoses / Procedures Referred By Contac t Referred To Contact CT IMAGING Diagnoses Malignant neoplasm of left breast in female, estrogen receptor negative, unspecified site of breast (HCC) Breast cancer 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, left (HCC) 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) Procedures CT CHEST W IVCON DIAGNOSTIC COMPUTED TOMOGRAPHY THORAX W/CONTRAST Hellen Zhu DO [address] [place] [address] [place] [address] Referral ID Status Reason Start Date Expiration Date Visits Requested Visits Authorized [id number] New Request Auto-Generat ed Referral 02/24/2024 03/25/2025 1 1 Specialty Diagnoses / Procedures Referred By Dary swensno Referred To Contact CT IMAGING Diagnoses Malignant neoplasm of left breast in female, estrogen receptor negative, unspecified site of breast (HCC) Breast cancer 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, left (HCC) 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) Procedures CT ABD/PEL W IVCON CT ABD & PELVIS W/CONTRAST Hellen Zhu, DO [address] [place] [address] [place] [address] Referral ID Status Reason Start Date Expiration Date Visits Requested Visits Authorized [id number] New Request Auto-Generat ed Referral 02/24/2024 03/25/2025 1 1 Additional Source Comments INFORMATION SOURCE (unrecogn ized section and content) DATE CREATED AUTHOR 09/16/2017 [facility] DATE CREATED AUTHOR AUTHOR'S ORGANIZ ATION 03/22/2023 [facility] DATE CREATED AUTHOR AUTHOR'S ORGANIZ ATION 05/08/2023 [facility] DATE CREATED AUTHOR AUTHOR'S ORGANIZ ATION 07/18/2023 [facility] DATE CREATED AUTHOR AUTHOR'S ORGANIZ ATION 09/06/2023 [facility] DATE CREATED AUTHOR AUTHOR'S ORGANIZ ATION 10/25/2023 [facility] ([place] DATE CREATED AUTHOR AUTHOR'S ORGANIZ ATION 09/24/2024 [facility] DATE CREATED AUTHOR AUTHOR'S ORGANIZ ATION 01/03/2025 [facility] [facility] DATE CREATED AUTHOR AUTHOR'S ORGANIZ ATION 01/07/2025 [facility] DATE CREATED AUTHOR AUTHOR'S ORGANIZ ATION 01/11/2025 [facility] Source Comments (unrecognize d section and content) In the event this informatio n is protected by the Federal Confidentiality of Alcohol and Drug Abuse Patient Records regulations: The Federal rules restrict any use of the information to criminally investigate or prosecute any alcohol or drug abuse patient.[facility] HospitalIn the event this information is protected by the Federal Confidentiality of Alcohol and Drug Abuse Patient Records regulations: The Federal rules restrict any use of the information to criminally investigate or prosecute any alcohol or drug abuse patient.[facility] HospitalIn the event this information is protected by the Federal Confidentiality of Alcohol and Drug Abuse Patient Records regulations: The Federal rules restrict any use of the information to criminally investigate or prosecute any alcohol or drug abuse patient.[facility] HospitalIn the event this information is protected by the Federal Confidentiality of Alcohol and Drug Abuse Patient Records regulations: The Federal rules restrict any use of the information to criminally investigate or prosecute any alcohol or drug abuse patient.[facility] HospitalIn the event this information is protected by the Federal Confidentiality of Alcohol and Drug Abuse Patient Records regulations: The Federal rules restrict any use of the information to criminally investigate or prosecute any alcohol or drug abuse patient.[facility] HospitalIn the event this information is protected by the Federal Confidentiality of Alcohol and Drug Abuse Patient Records regulations: The Federal rules restrict any use of the information to criminally investigate or prosecute any alcohol or drug abuse patient.[facility] HospitalIn the event this information is protected by the Federal Confidentiality of Alcohol and Drug Abuse Patient Records regulations: The Federal rules restrict any use of the information to criminally investigate or prosecute any alcohol or drug abuse patient.[facility] HospitalIn the event this information is protected by the Federal Confidentiality of Alcohol and Drug Abuse Patient Records regulations: The Federal rules restrict any use of the information to criminally investigate or prosecute any alcohol or drug abuse patient.[facility] HospitalIn the event this information is protected by the Federal Confidentiality of Alcohol and Drug Abuse Patient Records regulations: The Federal rules restrict any use of the information to criminally investigate or prosecute any alcohol or drug abuse patient.[facility] HospitalIn the event this information is protected by the Federal Confidentiality of Alcohol and Drug Abuse Patient Records regulations: The Federal rules restrict any use of the information to criminally investigate or prosecute any alcohol or drug abuse patient.[facility] HospitalIn the event this information is protected by the Federal Confidentiality of Alcohol and Drug Abuse Patient Records regulations: The Federal rules restrict any use of the information to criminally investigate or prosecute any alcohol or drug abuse patient.[facility] HospitalIn the event this information is protected by the Federal Confidentiality of Alcohol and Drug Abuse Patient Records regulations: The Federal rules restrict any use of the information to criminally investigate or prosecute any alcohol or drug abuse patient.[facility] HospitalIn the event this information is protected by the Federal Confidentiality of Alcohol and Drug Abuse Patient Records regulations: The Federal rules restrict any use of the information to criminally investigate or prosecute any alcohol or drug abuse patient.[facility] HospitalIn the event this information is protected by the Federal Confidentiality of Alcohol and Drug Abuse Patient Records regulations: The Federal rules restrict any use of the information to criminally investigate or prosecute any alcohol or drug abuse patient.[facility] HospitalIn the event this information is protected by the Federal Confidentiality of Alcohol and Drug Abuse Patient Records regulations: The Federal rules restrict any use of the information to criminally investigate or prosecute any alcohol or drug abuse patient.[facility] HospitalIn the event this information is protected by the Federal Confidentiality of Alcohol and Drug Abuse Patient Records regulations: The Federal rules restrict any use of the information to criminally investigate or prosecute any alcohol or drug abuse patient.[facility] HospitalIn the event this information is protected by the Federal Confidentiality of Alcohol and Drug Abuse Patient Records regulations: The Federal rules restrict any use of the information to criminally investigate or prosecute any alcohol or drug abuse patient.[facility] HospitalIn the event this information is protected by the Federal Confidentiality of Alcohol and Drug Abuse Patient Records regulations: The Federal rules restrict any use of the information to criminally investigate or prosecute any alcohol or drug abuse patient.[facility] HospitalIn the event this information is protected by the Federal Confidentiality of Alcohol and Drug Abuse Patient Records regulations: The Federal rules restrict any use of the information to criminally investigate or prosecute any alcohol or drug abuse patient.[facility] HospitalIn the event this information is protected by the Federal Confidentiality of Alcohol and Drug Abuse Patient Records regulations: The Federal rules restrict any use of the information to criminally investigate or prosecute any alcohol or drug abuse patient.[facility] HospitalIn the event this information is protected by the Federal Confidentiality of Alcohol and Drug Abuse Patient Records regulations: The Federal rules restrict any use of the information to criminally investigate or prosecute any alcohol or drug abuse patient.[facility] HospitalIn the event this information is protected by the Federal Confidentiality of Alcohol and Drug Abuse Patient Records regulations: The Federal rules restrict any use of the information to criminally investigate or prosecute any alcohol or drug abuse patient.[facility] HospitalIn the event this information is protected by the Federal Confidentiality of Alcohol and Drug Abuse Patient Records regulations: The Federal rules restrict any use of the information to criminally investigate or prosecute any alcohol or drug abuse patient.[facility] HospitalIn the event this information is protected by the Federal Confidentiality of Alcohol and Drug Abuse Patient Records regulations: The Federal rules restrict any use of the information to criminally investigate or prosecute any alcohol or drug abuse patient.[facility] HospitalIn the event this information is protected by the Federal Confidentiality of Alcohol and Drug Abuse Patient Records regulations: The Federal rules restrict any use of the information to criminally investigate or prosecute any alcohol or drug abuse patient.[facility] HospitalIn the event this information is protected by the Federal Confidentiality of Alcohol and Drug Abuse Patient Records regulations: The Federal rules restrict any use of the information to criminally investigate or prosecute any alcohol or drug abuse patient.[facility] HospitalIn the event this information is protected by the Federal Confidentiality of Alcohol and Drug Abuse Patient Records regulations: The Federal rules restrict any use of the information to criminally investigate or prosecute any alcohol or drug abuse patient.[facility] HospitalIn the event this information is protected by the Federal Confidentiality of Alcohol and Drug Abuse Patient Records regulations: The Federal rules restrict any use of the information to criminally investigate or prosecute any alcohol or drug abuse patient.[facility] HospitalIn the event this information is protected by the Federal Confidentiality of Alcohol and Drug Abuse Patient Records regulations: The Federal rules restrict any use of the information to criminally investigate or prosecute any alcohol or drug abuse patient.[facility] HospitalIn the event this information is protected by the Federal Confidentiality of Alcohol and Drug Abuse Patient Records regulations: The Federal rules restrict any use of the information to criminally investigate or prosecute any alcohol or drug abuse patient.[facility] HospitalIn the event this information is protected by the Federal Confidentiality of Alcohol and Drug Abuse Patient Records regulations: The Federal rules restrict any use of the information to criminally investigate or prosecute any alcohol or drug abuse patient.[facility] HospitalIn the event this information is protected by the Federal Confidentiality of Alcohol and Drug Abuse Patient Records regulations: The Federal rules restrict any use of the information to criminally investigate or prosecute any alcohol or drug abuse patient.[facility] HospitalIn the event this information is protected by the Federal Confidentiality of Alcohol and Drug Abuse Patient Records regulations: The Federal rules restrict any use of the information to criminally investigate or prosecute any alcohol or drug abuse patient.[facility] HospitalIn the event this information is protected by the Federal Confidentiality of Alcohol and Drug Abuse Patient Records regulations: The Federal rules restrict any use of the information to criminally investigate or prosecute any alcohol or drug abuse patient.[facility] HospitalIn the event this information is protected by the Federal Confidentiality of Alcohol and Drug Abuse Patient Records regulations: The Federal rules restrict any use of the information to criminally investigate or prosecute any alcohol or drug abuse patient.[facility] HospitalIn the event this information is protected by the Federal Confidentiality of Alcohol and Drug Abuse Patient Records regulations: The Federal rules restrict any use of the information to criminally investigate or prosecute any alcohol or drug abuse patient.[facility] HospitalIn the event this information is protected by the Federal Confidentiality of Alcohol and Drug Abuse Patient Records regulations: The Federal rules restrict any use of the information to criminally investigate or prosecute any alcohol or drug abuse patient.[facility] HospitalIn the event this information is protected by the Federal Confidentiality of Alcohol and Drug Abuse Patient Records regulations: The Federal rules restrict any use of the information to criminally investigate or prosecute any alcohol or drug abuse patient.[facility] HospitalIn the event this information is protected by the Federal Confidentiality of Alcohol and Drug Abuse Patient Records regulations: The Federal rules restrict any use of the information to criminally investigate or prosecute any alcohol or drug abuse patient.[facility] HospitalIn the event this information is protected by the Federal Confidentiality of Alcohol and Drug Abuse Patient Records regulations: The Federal rules restrict any use of the information to criminally investigate or prosecute any alcohol or drug abuse patient.[facility] HospitalIn the event this information is protected by the Federal Confidentiality of Alcohol and Drug Abuse Patient Records regulations: The Federal rules restrict any use of the information to criminally investigate or prosecute any alcohol or drug abuse patient.[facility] HospitalIn the event this information is protected by the Federal Confidentiality of Alcohol and Drug Abuse Patient Records regulations: The Federal rules restrict any use of the information to criminally investigate or prosecute any alcohol or drug abuse patient.[facility] HospitalIn the event this information is protected by the Federal Confidentiality of Alcohol and Drug Abuse Patient Records regulations: The Federal rules restrict any use of the information to criminally investigate or prosecute any alcohol or drug abuse patient.[facility] HospitalIn the event this information is protected by the Federal Confidentiality of Alcohol and Drug Abuse Patient Records regulations: The Federal rules restrict any use of the information to criminally investigate or prosecute any alcohol or drug abuse patient.[facility] HospitalIn the event this information is protected by the Federal Confidentiality of Alcohol and Drug Abuse Patient Records regulations: The Federal rules restrict any use of the information to criminally investigate or prosecute any alcohol or drug abuse patient.[facility] HospitalIn the event this information is protected by the Federal Confidentiality of Alcohol and Drug Abuse Patient Records regulations: The Federal rules restrict any use of the information to criminally investigate or prosecute any alcohol or drug abuse patient.[facility] HospitalIn the event this information is protected by the Federal Confidentiality of Alcohol and Drug Abuse Patient Records regulations: The Federal rules restrict any use of the information to criminally investigate or prosecute any alcohol or drug abuse patient.[facility] HospitalIn the event this information is protected by the Federal Confidentiality of Alcohol and Drug Abuse Patient Records regulations: The Federal rules restrict any use of the information to criminally investigate or prosecute any alcohol or drug abuse patient.[facility] HospitalIn the event this information is protected by the Federal Confidentiality of Alcohol and Drug Abuse Patient Records regulations: The Federal rules restrict any use of the information to criminally investigate or prosecute any alcohol or drug abuse patient.[facility] HospitalIn the event this information is protected by the Federal Confidentiality of Alcohol and Drug Abuse Patient Records regulations: The Federal rules restrict any use of the information to criminally investigate or prosecute any alcohol or drug abuse patient.[facility] HospitalIn the event this information is protected by the Federal Confidentiality of Alcohol and Drug Abuse Patient Records regulations: The Federal rules restrict any use of the information to criminally investigate or prosecute any alcohol or drug abuse patient.[facility] HospitalIn the event this information is protected by the Federal Confidentiality of Alcohol and Drug Abuse Patient Records regulations: The Federal rules restrict any use of the information to criminally investigate or prosecute any alcohol or drug abuse patient.[facility] HospitalIn the event this information is protected by the Federal Confidentiality of Alcohol and Drug Abuse Patient Records regulations: The Federal rules restrict any use of the information to criminally investigate or prosecute any alcohol or drug abuse patient.[facility] HospitalIn the event this information is protected by the Federal Confidentiality of Alcohol and Drug Abuse Patient Records regulations: The Federal rules restrict any use of the information to criminally investigate or prosecute any alcohol or drug abuse patient.[facility] HospitalIn the event this information is protected by the Federal Confidentiality of Alcohol and Drug Abuse Patient Records regulations: The Federal rules restrict any use of the information to criminally investigate or prosecute any alcohol or drug abuse patient.[facility] HospitalIn the event this information is protected by the Federal Confidentiality of Alcohol and Drug Abuse Patient Records regulations: The Federal rules restrict any use of the information to criminally investigate or prosecute any alcohol or drug abuse patient.[facility] HospitalIn the event this information is protected by the Federal Confidentiality of Alcohol and Drug Abuse Patient Records regulations: The Federal rules restrict any use of the information to criminally investigate or prosecute any alcohol or drug abuse patient.[facility] HospitalIn the event this information is protected by the Federal Confidentiality of Alcohol and Drug Abuse Patient Records regulations: The Federal rules restrict any use of the information to criminally investigate or prosecute any alcohol or drug abuse patient.[facility] HospitalIn the event this information is protected by the Federal Confidentiality of Alcohol and Drug Abuse Patient Records regulations: The Federal rules restrict any use of the information to criminally investigate or prosecute any alcohol or drug abuse patient.[facility] HospitalIn the event this information is protected by the Federal Confidentiality of Alcohol and Drug Abuse Patient Records regulations: The Federal rules restrict any use of the information to criminally investigate or prosecute any alcohol or drug abuse patient.[facility] HospitalIn the event this information is protected by the Federal Confidentiality of Alcohol and Drug Abuse Patient Records regulations: The Federal rules restrict any use of the information to criminally investigate or prosecute any alcohol or drug abuse patient.[facility] HospitalIn the event this information is protected by the Federal Confidentiality of Alcohol and Drug Abuse Patient Records regulations: The Federal rules restrict any use of the information to criminally investigate or prosecute any alcohol or drug abuse patient.[facility] HospitalIn the event this information is protected by the Federal Confidentiality of Alcohol and Drug Abuse Patient Records regulations: The Federal rules restrict any use of the information to criminally investigate or prosecute any alcohol or drug abuse patient.[facility] HospitalIn the event this information is protected by the Federal Confidentiality of Alcohol and Drug Abuse Patient Records regulations: The Federal rules restrict any use of the information to criminally investigate or prosecute any alcohol or drug abuse patient.[facility] HospitalIn the event this information is protected by the Federal Confidentiality of Alcohol and Drug Abuse Patient Records regulations: The Federal rules restrict any use of the information to criminally investigate or prosecute any alcohol or drug abuse patient.[facility] HospitalIn the event this information is protected by the Federal Confidentiality of Alcohol and Drug Abuse Patient Records regulations: The Federal rules restrict any use of the information to criminally investigate or prosecute any alcohol or drug abuse patient.[facility] HospitalIn the event this information is protected by the Federal Confidentiality of Alcohol and Drug Abuse Patient Records regulations: The Federal rules restrict any use of the information to criminally investigate or prosecute any alcohol or drug abuse patient.[facility] HospitalIn the event this information is protected by the Federal Confidentiality of Alcohol and Drug Abuse Patient Records regulations: The Federal rules restrict any use of the information to criminally investigate or prosecute any alcohol or drug abuse patient.[facility] HospitalIn the event this information is protected by the Federal Confidentiality of Alcohol and Drug Abuse Patient Records regulations: The Federal rules restrict any use of the information to criminally investigate or prosecute any alcohol or drug abuse patient.[facility] HospitalIn the event this information is protected by the Federal Confidentiality of Alcohol and Drug Abuse Patient Records regulations: The Federal rules restrict any use of the information to criminally investigate or prosecute any alcohol or drug abuse patient.[facility] HospitalIn the event this information is protected by the Federal Confidentiality of Alcohol and Drug Abuse Patient Records regulations: The Federal rules restrict any use of the information to criminally investigate or prosecute any alcohol or drug abuse patient.[facility] HospitalIn the event this information is protected by the Federal Confidentiality of Alcohol and Drug Abuse Patient Records regulations: The Federal rules restrict any use of the information to criminally investigate or prosecute any alcohol or drug abuse patient.[facility] HospitalIn the event this information is protected by the Federal Confidentiality of Alcohol and Drug Abuse Patient Records regulations: The Federal rules restrict any use of the information to criminally investigate or prosecute any alcohol or drug abuse patient.[facility] HospitalIn the event this information is protected by the Federal Confidentiality of Alcohol and Drug Abuse Patient Records regulations: The Federal rules restrict any use of the information to criminally investigate or prosecute any alcohol or drug abuse patient.[facility] HospitalIn the event this information is protected by the Federal Confidentiality of Alcohol and Drug Abuse Patient Records regulations: The Federal rules restrict any use of the information to criminally investigate or prosecute any alcohol or drug abuse patient.[facility] HospitalIn the event this information is protected by the Federal Confidentiality of Alcohol and Drug Abuse Patient Records regulations: The Federal rules restrict any use of the information to criminally investigate or prosecute any alcohol or drug abuse patient.[facility] HospitalIn the event this information is protected by the Federal Confidentiality of Alcohol and Drug Abuse Patient Records regulations: The Federal rules restrict any use of the information to criminally investigate or prosecute any alcohol or drug abuse patient.[facility] HospitalIn the event this information is protected by the Federal Confidentiality of Alcohol and Drug Abuse Patient Records regulations: The Federal rules restrict any use of the information to criminally investigate or prosecute any alcohol or drug abuse patient.[facility] HospitalIn the event this information is protected by the Federal Confidentiality of Alcohol and Drug Abuse Patient Records regulations: The Federal rules restrict any use of the information to criminally investigate or prosecute any alcohol or drug abuse patient.[facility] HospitalIn the event this information is protected by the Federal Confidentiality of Alcohol and Drug Abuse Patient Records regulations: The Federal rules restrict any use of the information to criminally investigate or prosecute any alcohol or drug abuse patient.[facility] HospitalIn the event this information is protected by the Federal Confidentiality of Alcohol and Drug Abuse Patient Records regulations: The Federal rules restrict any use of the information to criminally investigate or prosecute any alcohol or drug abuse patient.[facility] HospitalIn the event this information is protected by the Federal Confidentiality of Alcohol and Drug Abuse Patient Records regulations: The Federal rules restrict any use of the information to criminally investigate or prosecute any alcohol or drug abuse patient.[facility] HospitalIn the event this information is protected by the Federal Confidentiality of Alcohol and Drug Abuse Patient Records regulations: The Federal rules restrict any use of the information to criminally investigate or prosecute any alcohol or drug abuse patient.[facility] HospitalIn the event this information is protected by the Federal Confidentiality of Alcohol and Drug Abuse Patient Records regulations: The Federal rules restrict any use of the information to criminally investigate or prosecute any alcohol or drug abuse patient.[facility]In the event this information is protected by the Federal Confidentiality of Alcohol and Drug Abuse Patient Records regulations: The Federal rules restrict any use of the information to criminally investigate or prosecute any alcohol or drug abuse patient.[facility] HospitalIn the event this information is protected by the Federal Confidentiality of Alcohol and Drug Abuse Patient Records regulations: The Federal rules restrict any use of the information to criminally investigate or prosecute any alcohol or drug abuse patient.[facility] HospitalIn the event this information is protected by the Federal Confidentiality of Alcohol and Drug Abuse Patient Records regulations: The Federal rules restrict any use of the information to criminally investigate or prosecute any alcohol or drug abuse patient.[facility] HospitalIn the event this information is protected by the Federal Confidentiality of Alcohol and Drug Abuse Patient Records regulations: The Federal rules restrict any use of the information to criminally investigate or prosecute any alcohol or drug abuse patient.[facility] HospitalIn the event this information is protected by the Federal Confidentiality of Alcohol and Drug Abuse Patient Records regulations: The Federal rules restrict any use of the information to criminally investigate or prosecute any alcohol or drug abuse patient.[facility] HospitalIn the event this information is protected by the Federal Confidentiality of Alcohol and Drug Abuse Patient Records regulations: The Federal rules restrict any use of the information to criminally investigate or prosecute any alcohol or drug abuse patient.[facility] HospitalIn the event this information is protected by the Federal Confidentiality of Alcohol and Drug Abuse Patient Records regulations: The Federal rules restrict any use of the information to criminally investigate or prosecute any alcohol or drug abuse patient.[facility] HospitalIn the event this information is protected by the Federal Confidentiality of Alcohol and Drug Abuse Patient Records regulations: The Federal rules restrict any use of the information to criminally investigate or prosecute any alcohol or drug abuse patient.[facility] HospitalIn the event this information is protected by the Federal Confidentiality of Alcohol and Drug Abuse Patient Records regulations: The Federal rules restrict any use of the information to criminally investigate or prosecute any alcohol or drug abuse patient.[facility] HospitalIn the event this information is protected by the Federal Confidentiality of Alcohol and Drug Abuse Patient Records regulations: The Federal rules restrict any use of the information to criminally investigate or prosecute any alcohol or drug abuse patient.[facility] HospitalIn the event this information is protected by the Federal Confidentiality of Alcohol and Drug Abuse Patient Records regulations: The Federal rules restrict any use of the information to criminally investigate or prosecute any alcohol or drug abuse patient.[facility] HospitalIn the event this information is protected by the Federal Confidentiality of Alcohol and Drug Abuse Patient Records regulations: The Federal rules restrict any use of the information to criminally investigate or prosecute any alcohol or drug abuse patient.[facility] HospitalIn the event this information is protected by the Federal Confidentiality of Alcohol and Drug Abuse Patient Records regulations: The Federal rules restrict any use of the information to criminally investigate or prosecute any alcohol or drug abuse patient.[facility] HospitalIn the event this information is protected by the Federal Confidentiality of Alcohol and Drug Abuse Patient Records regulations: The Federal rules restrict any use of the information to criminally investigate or prosecute any alcohol or drug abuse patient.[facility] HospitalIn the event this information is protected by the Federal Confidentiality of Alcohol and Drug Abuse Patient Records regulations: The Federal rules restrict any use of the information to criminally investigate or prosecute any alcohol or drug abuse patient.[facility] HospitalIn the event this information is protected by the Federal Confidentiality of Alcohol and Drug Abuse Patient Records regulations: The Federal rules restrict any use of the information to criminally investigate or prosecute any alcohol or drug abuse patient.[facility] HospitalIn the event this information is protected by the Federal Confidentiality of Alcohol and Drug Abuse Patient Records regulations: The Federal rules restrict any use of the information to criminally investigate or prosecute any alcohol or drug abuse patient.[facility] HospitalIn the event this information is protected by the Federal Confidentiality of Alcohol and Drug Abuse Patient Records regulations: The Federal rules restrict any use of the information to criminally investigate or prosecute any alcohol or drug abuse patient.[facility] HospitalIn the event this information is protected by the Federal Confidentiality of Alcohol and Drug Abuse Patient Records regulations: The Federal rules restrict any use of the information to criminally investigate or prosecute any alcohol or drug abuse patient.[facility] HospitalIn the event this information is protected by the Federal Confidentiality of Alcohol and Drug Abuse Patient Records regulations: The Federal rules restrict any use of the information to criminally investigate or prosecute any alcohol or drug abuse patient.[facility] HospitalIn the event this information is protected by the Federal Confidentiality of Alcohol and Drug Abuse Patient Records regulations: The Federal rules restrict any use of the information to criminally investigate or prosecute any alcohol or drug abuse patient.[facility] HospitalIn the event this information is protected by the Federal Confidentiality of Alcohol and Drug Abuse Patient Records regulations: The Federal rules restrict any use of the information to criminally investigate or prosecute any alcohol or drug abuse patient.[facility] HospitalIn the event this information is protected by the Federal Confidentiality of Alcohol and Drug Abuse Patient Records regulations: The Federal rules restrict any use of the information to criminally investigate or prosecute any alcohol or drug abuse patient.[facility] HospitalIn the event this information is protected by the Federal Confidentiality of Alcohol and Drug Abuse Patient Records regulations: The Federal rules restrict any use of the information to criminally investigate or prosecute any alcohol or drug abuse patient.[facility] HospitalIn the event this information is protected by the Federal Confidentiality of Alcohol and Drug Abuse Patient Records regulations: The Federal rules restrict any use of the information to criminally investigate or prosecute any alcohol or drug abuse patient.[facility] HospitalIn the event this information is protected by the Federal Confidentiality of Alcohol and Drug Abuse Patient Records regulations: The Federal rules restrict any use of the information to criminally investigate or prosecute any alcohol or drug abuse patient.[facility] HospitalIn the event this information is protected by the Federal Confidentiality of Alcohol and Drug Abuse Patient Records regulations: The Federal rules restrict any use of the information to criminally investigate or prosecute any alcohol or drug abuse patient.[facility] HospitalIn the event this information is protected by the Federal Confidentiality of Alcohol and Drug Abuse Patient Records regulations: The Federal rules restrict any use of the information to criminally investigate or prosecute any alcohol or drug abuse patient.[facility] HospitalIn the event this information is protected by the Federal Confidentiality of Alcohol and Drug Abuse Patient Records regulations: The Federal rules restrict any use of the information to criminally investigate or prosecute any alcohol or drug abuse patient.[facility] HospitalIn the event this information is protected by the Federal Confidentiality of Alcohol and Drug Abuse Patient Records regulations: The Federal rules restrict any use of the information to criminally investigate or prosecute any alcohol or drug abuse patient.[facility] HospitalIn the event this information is protected by the Federal Confidentiality of Alcohol and Drug Abuse Patient Records regulations: The Federal rules restrict any use of the information to criminally investigate or prosecute any alcohol or drug abuse patient.[facility] HospitalIn the event this information is protected by the Federal Confidentiality of Alcohol and Drug Abuse Patient Records regulations: The Federal rules restrict any use of the information to criminally investigate or prosecute any alcohol or drug abuse patient.[facility] HospitalIn the event this information is protected by the Federal Confidentiality of Alcohol and Drug Abuse Patient Records regulations: The Federal rules restrict any use of the information to criminally investigate or prosecute any alcohol or drug abuse patient.[facility] HospitalIn the event this information is protected by the Federal Confidentiality of Alcohol and Drug Abuse Patient Records regulations: The Federal rules restrict any use of the information to criminally investigate or prosecute any alcohol or drug abuse patient.[facility] HospitalIn the event this information is protected by the Federal Confidentiality of Alcohol and Drug Abuse Patient Records regulations: The Federal rules restrict any use of the information to criminally investigate or prosecute any alcohol or drug abuse patient.[facility] HospitalIn the event this information is protected by the Federal Confidentiality of Alcohol and Drug Abuse Patient Records regulations: The Federal rules restrict any use of the information to criminally investigate or prosecute any alcohol or drug abuse patient.[facility] HospitalIn the event this information is protected by the Federal Confidentiality of Alcohol and Drug Abuse Patient Records regulations: The Federal rules restrict any use of the information to criminally investigate or prosecute any alcohol or drug abuse patient.[facility] HospitalIn the event this information is protected by the Federal Confidentiality of Alcohol and Drug Abuse Patient Records regulations: The Federal rules restrict any use of the information to criminally investigate or prosecute any alcohol or drug abuse patient.[facility] HospitalIn the event this information is protected by the Federal Confidentiality of Alcohol and Drug Abuse Patient Records regulations: The Federal rules restrict any use of the information to criminally investigate or prosecute any alcohol or drug abuse patient.[facility] HospitalIn the event this information is protected by the Federal Confidentiality of Alcohol and Drug Abuse Patient Records regulations: The Federal rules restrict any use of the information to criminally investigate or prosecute any alcohol or drug abuse patient.[facility] HospitalIn the event this information is protected by the Federal Confidentiality of Alcohol and Drug Abuse Patient Records regulations: The Federal rules restrict any use of the information to criminally investigate or prosecute any alcohol or drug abuse patient.[facility] HospitalIn the event this information is protected by the Federal Confidentiality of Alcohol and Drug Abuse Patient Records regulations: The Federal rules restrict any use of the information to criminally investigate or prosecute any alcohol or drug abuse patient.[facility] HospitalIn the event this information is protected by the Federal Confidentiality of Alcohol and Drug Abuse Patient Records regulations: The Federal rules restrict any use of the information to criminally investigate or prosecute any alcohol or drug abuse patient.[facility] HospitalIn the event this information is protected by the Federal Confidentiality of Alcohol and Drug Abuse Patient Records regulations: The Federal rules restrict any use of the information to criminally investigate or prosecute any alcohol or drug abuse patient.[facility] HospitalIn the event this information is protected by the Federal Confidentiality of Alcohol and Drug Abuse Patient Records regulations: The Federal rules restrict any use of the information to criminally investigate or prosecute any alcohol or drug abuse patient.[facility] HospitalIn the event this information is protected by the Federal Confidentiality of Alcohol and Drug Abuse Patient Records regulations: The Federal rules restrict any use of the information to criminally investigate or prosecute any alcohol or drug abuse patient.[facility] HospitalIn the event this information is protected by the Federal Confidentiality of Alcohol and Drug Abuse Patient Records regulations: The Federal rules restrict any use of the information to criminally investigate or prosecute any alcohol or drug abuse patient.[facility] HospitalIn the event this information is protected by the Federal Confidentiality of Alcohol and Drug Abuse Patient Records regulations: The Federal rules restrict any use of the information to criminally investigate or prosecute any alcohol or drug abuse patient.[facility] HospitalIn the event this information is protected by the Federal Confidentiality of Alcohol and Drug Abuse Patient Records regulations: The Federal rules restrict any use of the information to criminally investigate or prosecute any alcohol or drug abuse patient.[facility] HospitalIn the event this information is protected by the Federal Confidentiality of Alcohol and Drug Abuse Patient Records regulations: The Federal rules restrict any use of the information to criminally investigate or prosecute any alcohol or drug abuse patient.[facility] HospitalIn the event this information is protected by the Federal Confidentiality of Alcohol and Drug Abuse Patient Records regulations: The Federal rules restrict any use of the information to criminally investigate or prosecute any alcohol or drug abuse patient.[facility] HospitalIn the event this information is protected by the Federal Confidentiality of Alcohol and Drug Abuse Patient Records regulations: The Federal rules restrict any use of the information to criminally investigate or prosecute any alcohol or drug abuse patient.[facility] HospitalIn the event this information is protected by the Federal Confidentiality of Alcohol and Drug Abuse Patient Records regulations: The Federal rules restrict any use of the information to criminally investigate or prosecute any alcohol or drug abuse patient.[facility] HospitalIn the event this information is protected by the Federal Confidentiality of Alcohol and Drug Abuse Patient Records regulations: The Federal rules restrict any use of the information to criminally investigate or prosecute any alcohol or drug abuse patient.[facility] HospitalIn the event this information is protected by the Federal Confidentiality of Alcohol and Drug Abuse Patient Records regulations: The Federal rules restrict any use of the information to criminally investigate or prosecute any alcohol or drug abuse patient.[facility] HospitalIn the event this information is protected by the Federal Confidentiality of Alcohol and Drug Abuse Patient Records regulations: The Federal rules restrict any use of the information to criminally investigate or prosecute any alcohol or drug abuse patient.[facility] HospitalIn the event this information is protected by the Federal Confidentiality of Alcohol and Drug Abuse Patient Records regulations: The Federal rules restrict any use of the information to criminally investigate or prosecute any alcohol or drug abuse patient.[facility] HospitalIn the event this information is protected by the Federal Confidentiality of Alcohol and Drug Abuse Patient Records regulations: The Federal rules restrict any use of the information to criminally investigate or prosecute any alcohol or drug abuse patient.[facility] HospitalIn the event this information is protected by the Federal Confidentiality of Alcohol and Drug Abuse Patient Records regulations: The Federal rules restrict any use of the information to criminally investigate or prosecute any alcohol or drug abuse patient.[facility] HospitalIn the event this information is protected by the Federal Confidentiality of Alcohol and Drug Abuse Patient Records regulations: The Federal rules restrict any use of the information to criminally investigate or prosecute any alcohol or drug abuse patient.[facility] HospitalIn the event this information is protected by the Federal Confidentiality of Alcohol and Drug Abuse Patient Records regulations: The Federal rules restrict any use of the information to criminally investigate or prosecute any alcohol or drug abuse patient.[facility] HospitalIn the event this information is protected by the Federal Confidentiality of Alcohol and Drug Abuse Patient Records regulations: The Federal rules restrict any use of the information to criminally investigate or prosecute any alcohol or drug abuse patient.[facility] HospitalIn the event this information is protected by the Federal Confidentiality of Alcohol and Drug Abuse Patient Records regulations: The Federal rules restrict any use of the information to criminally investigate or prosecute any alcohol or drug abuse patient.[facility] HospitalIn the event this information is protected by the Federal Confidentiality of Alcohol and Drug Abuse Patient Records regulations: The Federal rules restrict any use of the information to criminally investigate or prosecute any alcohol or drug abuse patient.[facility] HospitalIn the event this information is protected by the Federal Confidentiality of Alcohol and Drug Abuse Patient Records regulations: The Federal rules restrict any use of the information to criminally investigate or prosecute any alcohol or drug abuse patient.[facility] HospitalIn the event this information is protected by the Federal Confidentiality of Alcohol and Drug Abuse Patient Records regulations: The Federal rules restrict any use of the information to criminally investigate or prosecute any alcohol or drug abuse patient.[facility] HospitalIn the event this information is protected by the Federal Confidentiality of Alcohol and Drug Abuse Patient Records regulations: The Federal rules restrict any use of the information to criminally investigate or prosecute any alcohol or drug abuse patient.[facility] HospitalIn the event this information is protected by the Federal Confidentiality of Alcohol and Drug Abuse Patient Records regulations: The Federal rules restrict any use of the information to criminally investigate or prosecute any alcohol or drug abuse patient.[facility] HospitalIn the event this information is protected by the Federal Confidentiality of Alcohol and Drug Abuse Patient Records regulations: The Federal rules restrict any use of the information to criminally investigate or prosecute any alcohol or drug abuse patient.[facility] HospitalIn the event this information is protected by the Federal Confidentiality of Alcohol and Drug Abuse Patient Records regulations: The Federal rules restrict any use of the information to criminally investigate or prosecute any alcohol or drug abuse patient.[facility] HospitalIn the event this information is protected by the Federal Confidentiality of Alcohol and Drug Abuse Patient Records regulations: The Federal rules restrict any use of the information to criminally investigate or prosecute any alcohol or drug abuse patient.[facility] HospitalIn the event this information is protected by the Federal Confidentiality of Alcohol and Drug Abuse Patient Records regulations: The Federal rules restrict any use of the information to criminally investigate or prosecute any alcohol or drug abuse patient.[facility] HospitalIn the event this information is protected by the Federal Confidentiality of Alcohol and Drug Abuse Patient Records regulations: The Federal rules restrict any use of the information to criminally investigate or prosecute any alcohol or drug abuse patient.[facility] HospitalIn the event this information is protected by the Federal Confidentiality of Alcohol and Drug Abuse Patient Records regulations: The Federal rules restrict any use of the information to criminally investigate or prosecute any alcohol or drug abuse patient.[facility] HospitalIn the event this information is protected by the Federal Confidentiality of Alcohol and Drug Abuse Patient Records regulations: The Federal rules restrict any use of the information to criminally investigate or prosecute any alcohol or drug abuse patient.[facility] HospitalIn the event this information is protected by the Federal Confidentiality of Alcohol and Drug Abuse Patient Records regulations: The Federal rules restrict any use of the information to criminally investigate or prosecute any alcohol or drug abuse patient.[facility] HospitalIn the event this information is protected by the Federal Confidentiality of Alcohol and Drug Abuse Patient Records regulations: The Federal rules restrict any use of the information to criminally investigate or prosecute any alcohol or drug abuse patient.[facility] HospitalIn the event this information is protected by the Federal Confidentiality of Alcohol and Drug Abuse Patient Records regulations: The Federal rules restrict any use of the information to criminally investigate or prosecute any alcohol or drug abuse patient.[facility] HospitalIn the event this information is protected by the Federal Confidentiality of Alcohol and Drug Abuse Patient Records regulations: The Federal rules restrict any use of the information to criminally investigate or prosecute any alcohol or drug abuse patient.[facility] HospitalIn the event this information is protected by the Federal Confidentiality of Alcohol and Drug Abuse Patient Records regulations: The Federal rules restrict any use of the information to criminally investigate or prosecute any alcohol or drug abuse patient.[facility] HospitalIn the event this information is protected by the Federal Confidentiality of Alcohol and Drug Abuse Patient Records regulations: The Federal rules restrict any use of the information to criminally investigate or prosecute any alcohol or drug abuse patient.[facility] HospitalIn the event this information is protected by the Federal Confidentiality of Alcohol and Drug Abuse Patient Records regulations: The Federal rules restrict any use of the information to criminally investigate or prosecute any alcohol or drug abuse patient.[facility] HospitalIn the event this information is protected by the Federal Confidentiality of Alcohol and Drug Abuse Patient Records regulations: The Federal rules restrict any use of the information to criminally investigate or prosecute any alcohol or drug abuse patient.[facility] [facility] HospitalIn the event this information is protected by the Federal Confidentiality of Alcohol and Drug Abuse Patient Records regulations: The Federal rules restrict any use of the information to criminally investigate or prosecute any alcohol or drug abuse patient.[facility] HospitalIn the event this information is protected by the Federal Confidentiality of Alcohol and Drug Abuse Patient Records regulations: The Federal rules restrict any use of the information to criminally investigate or prosecute any alcohol or drug abuse patient.[facility] HospitalIn the event this information is protected by the Federal Confidentiality of Alcohol and Drug Abuse Patient Records regulations: The Federal rules restrict any use of the information to criminally investigate or prosecute any alcohol or drug abuse patient.[facility] HospitalIn the event this information is protected by the Federal Confidentiality of Alcohol and Drug Abuse Patient Records regulations: The Federal rules restrict any use of the information to criminally investigate or prosecute any alcohol or drug abuse patient.[facility] HospitalIn the event this information is protected by the Federal Confidentiality of Alcohol and Drug Abuse Patient Records regulations: The Federal rules restrict any use of the information to criminally investigate or prosecute any alcohol or drug abuse patient.[facility] HospitalIn the event this information is protected by the Federal Confidentiality of Alcohol and Drug Abuse Patient Records regulations: The Federal rules restrict any use of the information to criminally investigate or prosecute any alcohol or drug abuse patient.[facility] HospitalIn the event this information is protected by the Federal Confidentiality of Alcohol and Drug Abuse Patient Records regulations: The Federal rules restrict any use of the information to criminally investigate or prosecute any alcohol or drug abuse patient.[facility] HospitalIn the event this information is protected by the Federal Confidentiality of Alcohol and Drug Abuse Patient Records regulations: The Federal rules restrict any use of the information to criminally investigate or prosecute any alcohol or drug abuse patient.[facility] HospitalIn the event this information is protected by the Federal Confidentiality of Alcohol and Drug Abuse Patient Records regulations: The Federal rules restrict any use of the information to criminally investigate or prosecute any alcohol or drug abuse patient.[facility] HospitalIn the event this information is protected by the Federal Confidentiality of Alcohol and Drug Abuse Patient Records regulations: The Federal rules restrict any use of the information to criminally investigate or prosecute any alcohol or drug abuse patient.[facility] HospitalIn the event this information is protected by the Federal Confidentiality of Alcohol and Drug Abuse Patient Records regulations: The Federal rules restrict any use of the information to criminally investigate or prosecute any alcohol or drug abuse patient.[facility] HospitalIn the event this information is protected by the Federal Confidentiality of Alcohol and Drug Abuse Patient Records regulations: The Federal rules restrict any use of the information to criminally investigate or prosecute any alcohol or drug abuse patient.[facility] HospitalIn the event this information is protected by the Federal Confidentiality of Alcohol and Drug Abuse Patient Records regulations: The Federal rules restrict any use of the information to criminally investigate or prosecute any alcohol or drug abuse patient.[facility] HospitalIn the event this information is protected by the Federal Confidentiality of Alcohol and Drug Abuse Patient Records regulations: The Federal rules restrict any use of the information to criminally investigate or prosecute any alcohol or drug abuse patient.[facility] HospitalIn the event this information is protected by the Federal Confidentiality of Alcohol and Drug Abuse Patient Records regulations: The Federal rules restrict any use of the information to criminally investigate or prosecute any alcohol or drug abuse patient.[facility] HospitalIn the event this information is protected by the Federal Confidentiality of Alcohol and Drug Abuse Patient Records regulations: The Federal rules restrict any use of the information to criminally investigate or prosecute any alcohol or drug abuse patient.[facility] HospitalIn the event this information is protected by the Federal Confidentiality of Alcohol and Drug Abuse Patient Records regulations: The Federal rules restrict any use of the information to criminally investigate or prosecute any alcohol or drug abuse patient.[facility] HospitalIn the event this information is protected by the Federal Confidentiality of Alcohol and Drug Abuse Patient Records regulations: The Federal rules restrict any use of the information to criminally investigate or prosecute any alcohol or drug abuse patient.[facility] HospitalIn the event this information is protected by the Federal Confidentiality of Alcohol and Drug Abuse Patient Records regulations: The Federal rules restrict any use of the information to criminally investigate or prosecute any alcohol or drug abuse patient.[facility] HospitalIn the event this information is protected by the Federal Confidentiality of Alcohol and Drug Abuse Patient Records regulations: The Federal rules restrict any use of the information to criminally investigate or prosecute any alcohol or drug abuse patient.[facility] HospitalIn the event this information is protected by the Federal Confidentiality of Alcohol and Drug Abuse Patient Records regulations: The Federal rules restrict any use of the information to criminally investigate or prosecute any alcohol or drug abuse patient.[facility] HospitalIn the event this information is protected by the Federal Confidentiality of Alcohol and Drug Abuse Patient Records regulations: The Federal rules restrict any use of the information to criminally investigate or prosecute any alcohol or drug abuse patient.[facility] HospitalIn the event this information is protected by the Federal Confidentiality of Alcohol and Drug Abuse Patient Records regulations: The Federal rules restrict any use of the information to criminally investigate or prosecute any alcohol or drug abuse patient.[facility] HospitalIn the event this information is protected by the Federal Confidentiality of Alcohol and Drug Abuse Patient Records regulations: The Federal rules restrict any use of the information to criminally investigate or prosecute any alcohol or drug abuse patient.[facility] HospitalIn the event this information is protected by the Federal Confidentiality of Alcohol and Drug Abuse Patient Records regulations: The Federal rules restrict any use of the information to criminally investigate or prosecute any alcohol or drug abuse patient.[facility] HospitalIn the event this information is protected by the Federal Confidentiality of Alcohol and Drug Abuse Patient Records regulations: The Federal rules restrict any use of the information to criminally investigate or prosecute any alcohol or drug abuse patient.[facility] HospitalIn the event this information is protected by the Federal Confidentiality of Alcohol and Drug Abuse Patient Records regulations: The Federal rules restrict any use of the information to criminally investigate or prosecute any alcohol or drug abuse patient.[facility] HospitalIn the event this information is protected by the Federal Confidentiality of Alcohol and Drug Abuse Patient Records regulations: The Federal rules restrict any use of the information to criminally investigate or prosecute any alcohol or drug abuse patient.[facility] HospitalIn the event this information is protected by the Federal Confidentiality of Alcohol and Drug Abuse Patient Records regulations: The Federal rules restrict any use of the information to criminally investigate or prosecute any alcohol or drug abuse patient.[facility] HospitalIn the event this information is protected by the Federal Confidentiality of Alcohol and Drug Abuse Patient Records regulations: The Federal rules restrict any use of the information to criminally investigate or prosecute any alcohol or drug abuse patient.[facility] HospitalIn the event this information is protected by the Federal Confidentiality of Alcohol and Drug Abuse Patient Records regulations: The Federal rules restrict any use of the information to criminally investigate or prosecute any alcohol or drug abuse patient.[facility] Reason for Visit (unrecogniz ed section and content) Reason Comments Imm/Inj Specialty Diagnoses / Procedures Referred By Contac t Referred To Contact Diagnoses 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, left (HCC) Triple negative breast cancer (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) Hellen Zhu DO [address] [place] [address] Phone: tel: fax: Hematology/Oncology [address] [place] [address] Phone: tel: fax: Referral ID Status Reason Start Date Expiration Date V isits Requested Visits Authorized [id number] Authorized 10/08/2024 01/06/2025 99 99 Reason Comments Non-Chemotherapy Treatment Reason Comments Chemotherapy Treatment Specialty Diagnoses / Procedures Referred By Contac t Referred To Contact Diagnoses Malignant neoplasm of left breast in female, estrogen receptor negative, unspecified site of breast (HCC) 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) Procedures DOXORUBIC HCL 10 MG VL CHEMO PACLITAXEL INJECTION CYCLOPHOSPHAMIDE 100 MG INJ CARBOPLATIN INJECTION INJ PEMBROLIZUMAB PALONOSETRON HCL FOSAPREPITANT INJECTION INJECTION, PEGFILGRASTIM, EXCLUDES BIOSIMILAR, 0.5 MG Hellen Zhu, [address] [place] [address] [facility] [address] [place] [address] Referral ID Status Reason Start Date Expiration Date Visits Requested Visits Authorized [id number] Authorized Patient Cleared - Admin/Chairm an/Director advise to proceed or did not respond 04/12/2023 01/10/2024 20 20 Reason Comments Blood Draw (CVAD) Specialty Diagnoses / Procedures Referred By Contac t Referred To Contact HEMATOLOGY/ONCOLOGY Diagnoses LAB/OV/TX Procedures LAB/OV/TX Labwork Self [facility] [address] [place] [address] Referral ID Status Reason Start Date Expiration Date V isits Requested Visits Authorized [id number] Closed OON/Self Pay Override Patient Cleared - INN Insurance Found 06/28/2023 10/05/2024 1 1 Referral ID Status Reason Start Date Expiration Date Visits Requested Visits Authorized [id number] Outside PCP OON/Self Pay Override Patient Cleared - INN Insurance Found 06/28/2023 10/05/2024 1 1 Specialty Diagnoses / Procedures Referred By Contac t Referred To Contact HEMATOLOGY/ONCOLOGY Diagnoses LAB/OV/TX Procedures LAB/OV/TX Self [facility] [address] [place] [address] Referral ID Status Reason Start Date Expiration Date Visits Requested Visits Authorized [id number] Outside PCP OON/Self Pay Override 06/28/2023 10/05/2024 1 1 Referral ID Status Reason Start Date Expiration Date V isits Requested Visits Authorized [id number] Authorized 04/12/2023 01/10/2024 20 20 Reason Comments Established Patient Specialty Diagnoses / Procedures Referred By Contac t Referred To Contact HEMATOLOGY/ONCOLOGY Diagnoses LAB AND OFFICE VISIT Procedures LAB AND OFFICE VISIT Self [facility] [address] [place] [address] Referral ID Status Reason Start Date Expiration Date Visits Requested Visits Authorized [id number] Outside PCP OON/Self Pay Override 04/15/2023 07/23/2024 1 1 Reason Comments Established Patient Follow-Up Reason Comments Sinus Problem cough, head congesti on, diarrhea and nausea x 6 days Reason Comments Results Specialty Diagnoses / Procedures [facility] Referred To Contact GENERAL SURGERY Diagnoses u/s right breast bx next saturday @ 1:30 Procedures u/s right breast bx next saturday @ 1:30 Martha Darby MD [address] [place] [address] [facility] [address] [place] [address] Referral ID Status Reason Start Date Expiration Date Visits Requested Visits Authorized [id number] Pending Review OON/Self Pay Override 10/06/2021 01/04/2022 1 1 Reason Comments Consult C/o stomach burning and sour, nausea is mild and diarrhea is chronic Specialty Diagnoses / Procedures [facility] Referred To Contact [facility] Diagnoses consult Procedures OFFICE CONSULTATION NEW/ESTAB PATIENT 15 MIN Ken Zarco MD [address] [place] [address] [facility] [place] [address] [place] [address] Referral ID Status Reason Start Date Expiration Date Visits Requested Visits Authorized [id number] Outside PCP OON/Self Pay Override 01/31/2022 05/01/2022 1 1 Reason Comments Patient Update Procedure Reason Comments Nausea Pt reported chills, body aches, x3 days. Reason Comments Consult EGD Reason Comments Consult Left axilla biopsy, abnormal US Specialty Diagnoses / Procedures [facility] Referred To Contact GENERAL SURGERY Diagnoses Breast Biopsy Consult - Images requested 03/04/2023 - PCP Referring - In Scanned Doc Procedures NEW DDI PATIENT Ken Zarco MD 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) Malignant neoplasm of left breast in female, estrogen receptor negative, unspecified site of breast (HCC) (HCC) Procedures CONSULT TO BREAST CENTER OFFICE/OUTPATIENT NEW HIGH MDM 60 MINUTES REFERRAL TO [facility] FINANCIAL COUNSELOR OFFICE/OUTPATIENT NEW MODERATE MDM 45 MINUTES Hellen Zhu, DO [address] [place] [address] [place] [address] [place] [id number] Referral ID Status Reason Start Date Expiration Date V isits Requested Visits Authorized [id number] Closed PCP Requested Referral Financial Clearance Required - OON Payor 04/09/2023 03/24/2024 1 1 Specialty Diagnoses / Procedures [facility] Referred To Contact Diagnoses Malignant neoplasm of left breast in female, estrogen receptor negative, unspecified site of breast (HCC) (HCC) 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) Procedures DOXORUBIC HCL 10 MG VL CHEMO PACLITAXEL INJECTION CYCLOPHOSPHAMIDE 100 MG INJ CARBOPLATIN INJECTION INJ PEMBROLIZUMAB PALONOSETRON HCL FOSAPREPITANT INJECTION INJECTION, PEGFILGRASTIM, EXCLUDES BIOSIMILAR, 0.5 MG Hellen Zhu, DO [address] [facility] [place] [address] [facility] [address] [place] [address] Referral ID Status Reason Start Date Expiration Date V isits Requested Visits Authorized [id number] Authorized 04/12/2023 12/23/2023 4 4 Reason Comments Legal Cashier - Other C1D1 Post Treat ment Call Reason Comments Legal Cashier - Other Toxicity Check Referral ID Status Reason Start Date Expiration Date V isits Requested Visits Authorized [id number] Waiting for Response 04/12/2023 12/23/2023 4 4 Reason Comments Authorization for chemo Reason Comments Breast Cancer Specialty Diagnoses / Procedures Referred By Contac t Referred To Contact Diagnoses 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) Malignant neoplasm of left breast in female, estrogen receptor negative, unspecified site of breast (HCC) (HCC) Procedures CONSULT TO MEDICAL GENETICS - CANCER MEDICAL GENETICS COUNSELING EACH 30 MINUTES REFERRAL TO [facility] FINANCIAL COUNSELOR Hellen Zhu, DO [address] [place] [address] [facility] [address] [place] [address] Referral ID Status Reason Start Date Expiration Date Visits Requested Visits Authorized [id number] Pending Review PCP Requested Referral Auto-Generate d Referral Financial Clearance Required - OON Payor OON/Self Pay Override 04/03/2023 04/02/2024 1 1 Reason Comments Appointment Reason Comments Patient Update Reason Comments Patient Question Specialty Diagnoses / Procedures Referred By Dary swenson Referred To Contact Diagnoses Malignant neoplasm of overlapping sites of left breast in female, estrogen receptor negative (HCC) Breast cancer 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, left (HCC) Triple negative breast cancer (HCC) Procedures NIVESTYM Hellen Zhu, DO [address] [place] [address] [facility] [address] [place] [address] Referral ID Status Reason Start Date Expiration Date V isits Requested Visits Authorized [id number] Authorized 06/14/2023 08/01/2023 28 28 Reason Comments Patient Question Referral ID Status Reason Start Date Expiration Date Visits Requested Visits Authorized [id number] Pending Review Patient Cleared - Admin/Chair man/Directo r advise to proceed or did not respond 04/12/2023 01/10/2024 20 20 Reason Comments Research [id number] Consent Specialty Diagnoses / Procedures Referred By Dary swenson Referred To Contact Diagnoses Malignant neoplasm of left breast in female, estrogen receptor negative, unspecified site of breast (HCC) 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) Procedures DOXORUBIC HCL 10 MG VL CHEMO PACLITAXEL INJECTION CYCLOPHOSPHAMIDE 100 MG INJ CARBOPLATIN INJECTION INJ PEMBROLIZUMAB PALONOSETRON HCL FOSAPREPITANT INJECTION INJECTION, PEGFILGRASTIM, EXCLUDES BIOSIMILAR, 0.5 MG Hellen Zhu, DO [address] [place] [address] [facility] [address] [place] [address] Referral ID Status Reason Start Date Expiration Date Visits Requested Visits Authorized [id number] Authorized Patient Cleared - Admin/Chairm an/Director advise to proceed or did not respond 04/12/2023 01/10/2024 99 99 Reason Comments Social Work Services Reason Comments Follow Up Specialty Diagnoses / Procedures Referred By [facility] Referred To Contact MR IMAGING Diagnoses Malignant neoplasm of overlapping sites of left breast in female, estrogen receptor negative (HCC) 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) Procedures MRI BREAST WO/W IVCON BILATERAL MRI BREAST WITHOUT&WITH CONTRAST W/CAD BILATERAL Hellen Zhu, DO [address] [place] [address] [place] [address] Referral ID Status Reason Start Date Expiration Date V isits Requested Visits Authorized [id number] Closed Auto-Generat ed Referral Patient Cleared - Admin/Chairm an/Director advise to proceed or did not respond 07/16/2023 08/14/2023 1 1 Reason Comments Established Patient Specialty Diagnoses / Procedures Referred By [facility] Referred To Contact HEMATOLOGY/ONCOLOGY Diagnoses LAB/OV/TX Procedures LAB/OV/TX [facility] [address] [place] [address] Reason Comments New Medication Antiemetic Specialty Diagnoses / Procedures Referred By [facility] Referred To Contact Diagnoses Malignant neoplasm of left breast in female, estrogen receptor negative, unspecified site of breast (HCC) 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) Procedures DOXORUBIC HCL 10 MG VL CHEMO PACLITAXEL INJECTION CYCLOPHOSPHAMIDE 100 MG INJ CARBOPLATIN INJECTION INJ PEMBROLIZUMAB PALONOSETRON HCL FOSAPREPITANT INJECTION INJECTION, PEGFILGRASTIM, EXCLUDES BIOSIMILAR, 0.5 MG DEXRAZOXANE HCL INJECTION 250 MG Hellen Zhu, DO [address] [facility] [place] [address] [facility] [address] [place] [address] Reason Comments Patient Update Reason Comments EKG Specialty Diagnoses / Procedures [facility] Referred To Contact HEMATOLOGY/ONCOLOGY Diagnoses C50.812,Z17.1 (ICD-10-CM) - Malignant neoplasm of overlapping sites of left breast in female, estrogen receptor negative (HCC) C50.912,C77.3 (ICD-10-CM) - Breast cancer 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, left (HCC) R00.2 (ICD-10-CM) - Palpitations Z51.81,Z79.899 (ICD-10-CM) - Encounter for monitoring cardiotoxic drug therapy M62.81 (ICD-10-CM) - Muscle weakness Procedures EKG Hellen Zhu DO [address] [place] [address] [facility] [address] [place] [address] Referral ID Status Reason Start Date Expiration Date Visits Requested Visits Authorized [id number] Pending Review OON/Self Pay Override 07/22/2023 10/29/2024 1 1 Reason Comments Radiology US Specialty Diagnoses / Procedures [facility] Referred To Contact RADIO [employer] [facility] MOB Diagnoses Malignant neoplasm of left breast in female, estrogen receptor negative, unspecified site of breast (HCC) Procedures US BREAST LTD LEFT US BREAST UNI REAL [place] [address] [place] [address] [employer] [facility] [address] [place] [address] Referral ID Status Reason Start Date Expiration Date V isits Requested Visits Authorized [id number] Closed OON/Self Pay Override Financial Clearance Required - OON Payor 07/25/2023 08/23/2024 1 1 Reason Comments Patient Update PET Reason Comments Established Patient Regroup Specialty Diagnoses / Procedures Referred By Contac t Referred To Contact Breast Diseases / GENERAL SURGERY Diagnoses Secondary and unspecified malignant neoplasm of axilla and upper limb lymph nodes follow up office visit Procedures FOLLOW-UP E-ASSESSMENT OFFICE/OUTPATIENT ESTABLISHED MOD MDM 30 [place] [address] [place] [address] [facility] [place] [facility] [place] [address] [place] [address] Referral ID Status Reason Start Date Expiration Date V isits Requested Visits Authorized [id number] Closed OON/Self Pay Override Financial Clearance Required - OON Payor Patient cleared - OON Required Payment Collected 07/26/2023 03/24/2024 1 1 Reason Comments Insurance Authorization Reason Comments Follow Up Reason Comments Electronic Communication Reason Comments Recheck Specialty Diagnoses / Procedures Referred By Contac t Referred To Contact RADIATION ONCOLOGY Diagnoses BREAST CA Procedures RADIATION - PLAN TREATMENT Hellen Zhu, DO [address] [place] [address] [facility] [address] [place] [address] Referral ID Status Reason Start Date Expiration Date Visits Requested Visits Authorized [id number] New Request OON/Self Pay Override 10/18/2023 01/25/2025 1 1 Reason Onset Date Comments Simulation Request Form 10/29/2023 Reason Comments Patient Education Reason Comments Radiotherapy On-treatment Visit Specialty Diagnoses / Procedures Referred By Contac t Referred To Contact HEMATOLOGY/ONCOLOGY Diagnoses LAB/OV/TX Procedures LAB/OV/TX Labwork Self [facility] [address] [place] [address] Reason Comments Benefits Authorization Referral ID Status Reason Start Date Expiration Date Visits Requested Visits Authorized [id number] Authorized Patient Cleared - Admin/Chairm an/Director advise to proceed or did not respond 04/12/2023 12/02/2024 43 43 Specialty Diagnoses / Procedures Referred By Contac t Referred To Contact Radiation Oncology / RADIATION ONCOLOGY Diagnoses Location: W-ON TREATMENT VISIT Activity: WO-SIMULATION:SIMPLE Procedures SIMULATION Self Melony Davis MD [address] [place] [address] Referral ID Status Reason Start Date Expiration Date V isits Requested Visits Authorized [id number] Authorized 12/05/2023 03/04/2024 99 99 Reason Comments 04/19/2023 PORT PLACEMENT LEMON Reason Comments Established Patient Reason Comments avs 02/24/24 Reason Comments Patient Question calves are cramping Reason Comments Orders Reason Comments Orders CT SCAN 05/25/[address] Specialty Diagnoses / Procedures Referred By Dary Referred To Contact CT IMAGING Diagnoses Breast cancer 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, left (HCC) Malignant neoplasm of overlapping sites of left breast in female, estrogen receptor negative (HCC) Procedures CT ABD/PEL W IVCON CT ABD & PELVIS W/CONTRAST Hellen Zhu DO [address] [place] [address] Phone: tel: fax: [place] [phone] Referral ID Status Reason Start Date Expiration Date V isits Requested Visits Authorized [id number] Closed Auto-Generate d Referral 05/20/2024 06/19/2025 1 1 Specialty Diagnoses / Procedures Referred By Dary Referred To Contact HEMATOLOGY/ONCOLOGY Diagnoses TREATMENT Procedures TREATMENT Self Hematology/Oncology [address] [place] [address] Phone: tel: fax: Referral ID Status Reason Start Date Expiration Date Visits Requested Visits Authorized [id number] Pending Review OON/Self Pay Override 04/15/2023 07/23/2024 1 1 Reason Comments Follow Up (DSRS) Sutures to be remove d after biopsy Reason Comments Legal Cashier - Other Starting treatm ent Specialty Diagnoses / Procedures Referred By Dary Referred To Contact Diagnoses Malignant neoplasm of left breast in female, estrogen receptor negative, unspecified site of breast (HCC) 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) Hellen Zhu DO [address] [place] [address] Phone: tel: fax: Hellen Zhu, DO [address] [place] [place] [address] Phone: tel: fax: Referral ID Status Reason Start Date Expiration Date V isits Requested Visits Authorized [id number] Authorized 07/30/2024 10/28/2024 99 99 Reason Comments Legal Cashier - Other C1D1 Post Treat ment Call (Keytruda/Paclitaxel) Reason Comments Legal Cashier - Other Treatment Reason Comments Patient Update Reason Comments Consult Breast Cancer Reason Comments New Patient Left breast cancer Reason Onset Date Comments Refill Request 11/02/2024 Specialty Diagnoses / Procedures Referred By [facility] Referred To Contact Diagnoses 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) Hellen Zhu, DO [address] [place] [place] [address] Phone: tel: fax: Hellen Zhu, DO [address] [place] [address] Phone: tel: fax: Reason Comments Follow Up Right axillaary lymph node biopsy Reason Comments Medication Problem Reason Comments Follow Up US CORE BX rt axilla ry Reason Comments avs 11/16 Specialty Diagnoses / Procedures [facility] Referred To Contact Diagnoses 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) Breast cancer 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, left (HCC) Triple negative breast cancer (HCC) Hellen Zhu, DO [address] [place] [address] Phone: tel: fax: Hematology/Oncology [address] [place] [address] Phone: tel: fax: Referral ID Status Reason Start Date Expiration Date V isits Requested Visits Authorized [id number] Authorized 11/17/2024 02/15/2025 99 99 Reason Comments Appointment AVS 12/08 Care Teams (unrecognized sec tion and content) Loom Mechanic Relationship Specialty Start Date End Date Ken Zarco MD PCP - General 01/15/08 Loom Mechanic Relationship Specialty Start Date End Date Ken Zarco MD PCP - General 01/15/08 Loom Mechanic Relationship Specialty Start Date End Date Ken Zarco MD PCP - General 01/15/08 Loom Mechanic Relationship Specialty Start Date End Date Ken Zarco MD PCP - General 01/15/08 Loom Mechanic Relationship Specialty Start Date End Date Ken Zarco MD PCP - General 01/15/08 Loom Mechanic Relationship Specialty Start Date End Date Ken Zarco MD PCP - General 01/15/08 Loom Mechanic Relationship Specialty Start Date End Date Ken Zarco MD PCP - General 01/15/08 Loom Mechanic Relationship Specialty Start Date End Date Ken Zarco MD PCP - General 01/15/08 Team Status: Active Member Role Status Dates Dr. Ken Zarco MD Family Provider Active Dr. Ken Zarco MD Primary Care Provider Active Team Status: Inactive Member Role Status Dates Dr. Ken Zarco MD Primary Care Provider, Attending Neda lincoln Active Team Status: Inactive Member Role Status Dates Dr. Ken Zarco MD Primary Care Provide r, Attending Provider, Referring Provider Active Team Status: Active Member Role Status Dates Dr. Ken Zarco MD Family Provider Active Dr. Hellen Lafleur MD Primary Care Provider Active Team Status: Inactive Member Role Status Dates Dr. Hellen Lafleur MD Primary Care Provi nicci, Attending Provider, Referring Provider Active Team Status: Active Member Role Status Dates Dr. Hellen Lafleur MD Primary Care Provi nicci, Attending Provider, Referring Provider Active Team Status: Inactive Member Role Status Dates Dr. Hellen Lafleur MD Primary Care Provider Active Dr. Manuel Kong MD Attending Provider, Referri ng Provider Active Loom Mechanic Relationship Specialty Start Date End Date Ken Zarco MD PCP - General 01/15/08 Loom Mechanic Relationship Specialty Start Date End Date Ken Zarco MD PCP - General 01/15/08 Melony Davis MD, [address], [place] [address] Radiation Oncology 04/04/23 Team Status: Inactive Member Role Status Dates Dr. Hellen Lafleur MD Primary Care Provider Active Dr. Hellen Zhu DO Attending Provider, Referring Prov ider Active Team Status: Active Member Role Status Dates Dr. Hellen Lafleur MD Primary Care Provider Active Dr. Hellen Zhu DO Attending Provider, Referring Prov ider Active Loom Mechanic Relationship Specialty Start Date End Date Ken Zarco MD PCP - General 01/15/08 Melony Davis MD, [address] [place] [address] Radiation Oncology 04/04/23 Team Status: Inactive Member Role Status Dates Dr. Hellen Lafleur MD Primary Care Provider, Referring Provider Active Dr. Arben Mccann MD Attending Provider Active Team Status: Active Member Role Status Dates Dr. Hellen Lafleur MD Primary Care Provider Active Dr. Arben Mccann MD Attending Pr ovider, Referring Provider, Other Provider Active Team Status: Inactive Member Role Status Dates Dr. Hellen Lafleur MD Primary Care Provider Active Dr. Arben Mccann MD Attending Provider, Referr ing Provider Active Loom Mechanic Relationship Specialty Start Date End Date Ken Zarco MD PCP - General 01/15/08 Melony Davis MD, [address] [place] [address] Radiation Oncology 04/04/23 Hellen Zhu DO [address] [place] [address] Hematology/Oncology 04/16/23 Jael Gunter RN Specialty Legal Cashier Oncology 04/16/23 Loom Mechanic Relationship Specialty Start Date End Date Ken Zarco MD PCP - General 01/15/08 Melony Davis MD, [address] [place] [address] Radiation Oncology 04/04/23 Hellen Zhu DO [address] [place] [address] Hematology/Oncology 04/16/23 Jael Gunter RN Specialty Legal Cashier Oncology 04/16/23 Loom Mechanic Relationship Specialty Start Date End Date Ken Zarco MD PCP - General 01/15/08 Melony Davis MD [address] [place] [address] Radiation Oncology 04/04/23 Hellen Zhu DO [address] [place] [address] Hematology/Oncology 04/16/23 Jael Gunter RN Specialty Legal Cashier Oncology 04/16/23 Loom Mechanic Relationship Specialty Start Date End Date Ken Zarco MD PCP - General 01/15/08 Melony Davis MD [address] [place] [address] Radiation Oncology 04/04/23 Hellen Zhu DO [address] [place] [address] Hematology/Oncology 04/16/23 Jael Gunter RN Specialty Legal Cashier Oncology 04/16/23 Loom Mechanic Relationship Specialty Start Date End Date Ken Zarco MD PCP - General 01/15/08 Melony Davis MD [address] [place] [address] Radiation Oncology 04/04/23 Hellen Zhu DO [address] [place] [address] Hematology/Oncology 04/16/23 Jael Gunter RN Specialty Legal Cashier Oncology 04/16/23 Loom Mechanic Relationship Specialty Start Date End Date Ken Zarco MD PCP - General 01/15/08 Melony Davis MD [address] [place] [address] Radiation Oncology 04/04/23 Hellen Zhu DO [address] [place] [address] Hematology/Oncology 04/16/23 Jael Gunter RN Specialty Legal Cashier Oncology 04/16/23 Loom Mechanic Relationship Specialty Start Date End Date Ken Zarco MD PCP - General 01/15/08 Melony Davis MD [address] [place] [address] Radiation Oncology 04/04/23 Hellen Zhu DO [address] [place] [address] Hematology/Oncology 04/16/23 Jael Gunter RN Specialty Legal Cashier Oncology 04/16/23 Loom Mechanic Relationship Specialty Start Date End Date Ken Zarco MD PCP - General 01/15/08 Melony Davis MD [address] [place] [address] Radiation Oncology 04/04/23 Hellen Zhu DO [address] [place] [address] Hematology/Oncology 04/16/23 Jael Gunter RN Specialty Legal Cashier Oncology 04/16/23 Loom Mechanic Relationship Specialty Start Date End Date Ken Zarco MD PCP - General 01/15/08 Melony Davis MD [address] [place] [address] Radiation Oncology 04/04/23 Hellen Zhu DO [address] [place] [address] Hematology/Oncology 04/16/23 Jael Gunter RN Specialty Legal Cashier Oncology 04/16/23 Loom Mechanic Relationship Specialty Start Date End Date Ken Zarco MD PCP - General 01/15/08 Melony Davis MD [address] [place] [address] Radiation Oncology 04/04/23 Hellen Zhu DO [address] [place] [address] Hematology/Oncology 04/16/23 Jael Gunter RN Specialty Legal Cashier Oncology 04/16/23 Loom Mechanic Relationship Specialty Start Date End Date Ken Zarco MD PCP - General 01/15/08 Melony Davis MD [address] [place] [address] Radiation Oncology 04/04/23 Hellen Zhu DO [address] [place] [address] Hematology/Oncology 04/16/23 Jael Gunter RN Specialty Legal Cashier Oncology 04/16/23 Loom Mechanic Relationship Specialty Start Date End Date Ken Zarco MD PCP - General 01/15/08 Melony Davis MD [address] [place] [address] Radiation Oncology 04/04/23 Hellen Zhu DO [address] [place] [address] Hematology/Oncology 04/16/23 Jael Gunter RN Specialty Legal Cashier Oncology 04/16/23 Loom Mechanic Relationship Specialty Start Date End Date Ken Zarco MD PCP - General 01/15/08 Melony Davis MD [address] [place] [address] Radiation Oncology 04/04/23 Hellen Zhu DO [address] [place] [address] Hematology/Oncology 04/16/23 Jael Gunter RN Specialty Legal Cashier Oncology 04/16/23 Loom Mechanic Relationship Specialty Start Date End Date Ken Zarco MD PCP - General 01/15/08 Melony Davis MD [address] [place] [address] Radiation Oncology 04/04/23 Hellen Zhu DO [address] [place] [address] Hematology/Oncology 04/16/23 Jael Gunter RN Specialty Legal Cashier Oncology 04/16/23 Loom Mechanic Relationship Specialty Start Date End Date Ken Zarco MD PCP - General 01/15/08 Melony Davis MD [address] [place] [address] Radiation Oncology 04/04/23 Hellen Zhu DO [address] [place] [address] Hematology/Oncology 04/16/23 Jael Gunter RN Specialty Legal Cashier Oncology 04/16/23 Loom Mechanic Relationship Specialty Start Date End Date Ken Zarco MD PCP - General 01/15/08 Melony Davis MD [address] [place] [address] Radiation Oncology 04/04/23 Hellen Zhu DO [address] [place] [address] Hematology/Oncology 04/16/23 Jael Gunter RN Specialty Legal Cashier Oncology 04/16/23 Loom Mechanic Relationship Specialty Start Date End Date Ken Zarco MD PCP - General 01/15/08 Melony Davis MD [address] [place] [address] Radiation Oncology 04/04/23 Hellen Zhu DO [address] [place] [address] Hematology/Oncology 04/16/23 Jael Gunter RN Specialty Legal Cashier Oncology 04/16/23 Loom Mechanic Relationship Specialty Start Date End Date Ken Zarco MD PCP - General 01/15/08 Melony Davis MD [address] [place] [address] Radiation Oncology 04/04/23 Hellen Zhu DO [address] [place] [address] Hematology/Oncology 04/16/23 Jael Gunter RN Specialty Legal Cashier Oncology 04/16/23 Loom Mechanic Relationship Specialty Start Date End Date Ken Zarco MD PCP - General 01/15/08 Melony Davis MD [address] [place] [address] Radiation Oncology 04/04/23 Hellen Zhu DO [address] [place] [address] Hematology/Oncology 04/16/23 Jael Gunter RN Specialty Legal Cashier Oncology 04/16/23 Loom Mechanic Relationship Specialty Start Date End Date Ken Zarco MD PCP - General 01/15/08 Melony Davis MD [address] [place] [address] Radiation Oncology 04/04/23 Hellen Zhu DO [address] [place] [address] Hematology/Oncology 04/16/23 Jael Gunter RN Specialty Legal Cashier Oncology 04/16/23 Loom Mechanic Relationship Specialty Start Date End Date Ken Zarco MD PCP - General 01/15/08 Melony Davis MD [address] [place] [address] Radiation Oncology 04/04/23 Hellen Zhu DO [address] [place] [address] Hematology/Oncology 04/16/23 Jael Gunter RN Specialty Legal Cashier Oncology 04/16/23 Loom Mechanic Relationship Specialty Start Date End Date Ken Zarco MD PCP - General 01/15/08 Melony Davis MD [address] [place] [address] Radiation Oncology 04/04/23 Hellen Zhu DO [address] [place] [address] Hematology/Oncology 04/16/23 Jael Gunter RN Specialty Legal Cashier Oncology 04/16/23 Loom Mechanic Relationship Specialty Start Date End Date Ken Zarco MD PCP - General 01/15/08 Melony Davis MD [address] [place] [address] Radiation Oncology 04/04/23 Hellen Zhu DO [address] [place] [address] Hematology/Oncology 04/16/23 Jael Gunter RN Specialty Legal Cashier Oncology 04/16/23 Loom Mechanic Relationship Specialty Start Date End Date Ken Zarco MD PCP - General 01/15/08 Melony Davis MD [address] [place] [address] Radiation Oncology 04/04/23 Hellen Zhu DO [address] [place] [address] Hematology/Oncology 04/16/23 Jael Gunter RN Specialty Legal Cashier Oncology 04/16/23 Loom Mechanic Relationship Specialty Start Date End Date Ken Zarco MD PCP - General 01/15/08 Melony Davis MD [address] [place] [address] Radiation Oncology 04/04/23 Hellen Zhu DO [address] [place] [address] Hematology/Oncology 04/16/23 Jael Gunter RN Specialty Legal Cashier Oncology 04/16/23 Loom Mechanic Relationship Specialty Start Date End Date Ken Zarco MD PCP - General 01/15/08 Melony Davis MD [address] [place] [address] Radiation Oncology 04/04/23 Hellen Zhu DO [address] [place] [address] Hematology/Oncology 04/16/23 Jael Gunter RN Specialty Legal Cashier Oncology 04/16/23 Loom Mechanic Relationship Specialty Start Date End Date Ken Zarco MD PCP - General 01/15/08 Melony Davis MD [address] [place] [address] Radiation Oncology 04/04/23 Hellen Zhu DO [address] [place] [address] Hematology/Oncology 04/16/23 Jael Gunter RN Specialty Legal Cashier Oncology 04/16/23 Loom Mechanic Relationship Specialty Start Date End Date Ken Zarco MD PCP - General 01/15/08 Melony Davis MD [address] [place] [address] Radiation Oncology 04/04/23 Hellen Zhu DO [address] [place] [address] Hematology/Oncology 04/16/23 Jael Gunter RN Specialty Legal Cashier Oncology 04/16/23 Loom Mechanic Relationship Specialty Start Date End Date Ken Zarco MD PCP - General 01/15/08 Melony Davis MD [address] [place] [address] Radiation Oncology 04/04/23 Hellen Zhu DO [address] [place] [address] Hematology/Oncology 04/16/23 Jael Gunter RN Specialty Legal Cashier Oncology 04/16/23 Loom Mechanic Relationship Specialty Start Date End Date Ken Zarco MD PCP - General 01/15/08 Melony Davis MD [address] [place] [address] Radiation Oncology 04/04/23 Hellen Zhu DO [address] [place] [address] Hematology/Oncology 04/16/23 Jael Gunter RN Specialty Legal Cashier Oncology 04/16/23 Loom Mechanic Relationship Specialty Start Date End Date Ken Zarco MD PCP - General 01/15/08 Melony Davis MD [address] [place] [address] Radiation Oncology 04/04/23 Hellen Zhu DO [address] [place] [address] Hematology/Oncology 04/16/23 Jael Gunter RN Specialty Legal Cashier Oncology 04/16/23 Loom Mechanic Relationship Specialty Start Date End Date Ken Zarco MD PCP - General 01/15/08 Melony Davis MD [address] [place] [address] Radiation Oncology 04/04/23 Hellen Zhu DO [address] [place] [address] Hematology/Oncology 04/16/23 Jael Gunter RN Specialty Legal Cashier Oncology 04/16/23 Loom Mechanic Relationship Specialty Start Date End Date Ken Zarco MD PCP - General 01/15/08 Melony Davis MD [address] [place] [address] Radiation Oncology 04/04/23 Hellen Zhu DO [address] [place] [address] Hematology/Oncology 04/16/23 Jael Gunter RN Specialty Legal Cashier Oncology 04/16/23 Loom Mechanic Relationship Specialty Start Date End Date Ken Zarco MD PCP - General 01/15/08 Melony Davis MD [address] [place] [address] Radiation Oncology 04/04/23 Hellen Zhu DO [address] [place] [address] Hematology/Oncology 04/16/23 Jael Gunter RN Specialty Legal Cashier Oncology 04/16/23 Loom Mechanic Relationship Specialty Start Date End Date Ken Zarco MD PCP - General 01/15/08 Melony Davis MD [address] [place] [address] Radiation Oncology 04/04/23 Hellen Zhu DO [address] [place] [address] Hematology/Oncology 04/16/23 Jael Gunter RN Specialty Legal Cashier Oncology 04/16/23 Loom Mechanic Relationship Specialty Start Date End Date Ken Zarco MD PCP - General 01/15/08 Melony Davis MD [address] [place] [address] Radiation Oncology 04/04/23 Hellen Zhu DO [address] [place] [address] Hematology/Oncology 04/16/23 Jael Gunter RN Specialty Legal Cashier Oncology 04/16/23 Debbie Merino MD [address] [place] [address] Breast Diseases 09/06/23 09/06/23 Loom Mechanic Relationship Specialty Start Date End Date Ken Zarco MD PCP - General 01/15/08 Melony Davis MD [address] [place] [address] Radiation Oncology 04/04/23 Hellen Zhu DO [address] [place] [address] Hematology/Oncology 04/16/23 Jael Gunter RN Specialty Legal Cashier Oncology 04/16/23 Debbie Merino MD [address] [place] [address] Breast Diseases 09/06/23 09/06/23 Loom Mechanic Relationship Specialty Start Date End Date Ken Zarco MD PCP - General 01/15/08 Melony Davis MD [address] [place] [address] Radiation Oncology 04/04/23 Hellen Zhu DO [address] [place] [address] Hematology/Oncology 04/16/23 Jael Gnuter RN Specialty Legal Cashier Oncology 04/16/23 Loom Mechanic Relationship Specialty Start Date End Date Ken Zarco MD PCP - General 01/15/08 Melony Davis MD [address] [place] [address] Radiation Oncology 04/04/23 Hellen Zhu DO [address] [place] [address] Hematology/Oncology 04/16/23 Jael Gunter RN Specialty Legal Cashier Oncology 04/16/23 Loom Mechanic Relationship Specialty Start Date End Date Ken Zarco MD PCP - General 01/15/08 Melony Davis MD [address] [place] [address] Radiation Oncology 04/04/23 Hellen Zhu DO [address] [place] [address] Hematology/Oncology 04/16/23 Jael Gunter RN Specialty Legal Cashier Oncology 04/16/23 Debbie Merino MD [address] [place] [address] Breast Diseases 10/18/23 Loom Mechanic Relationship Specialty Start Date End Date Ken Zarco MD PCP - General 01/15/08 Melony Davis MD [address] [place] [address] Radiation Oncology 04/04/23 Hellen Zhu DO [address] [place] [address] Hematology/Oncology 04/16/23 Jael Gunter RN Specialty Legal Cashier Oncology 04/16/23 Debbie Merino MD [address] [place] [address] Breast Diseases 10/18/23 Loom Mechanic Relationship Specialty Start Date End Date Ken Zarco MD PCP - General 01/15/08 Melony Davis MD [address] [place] [address] Radiation Oncology 04/04/23 Hellen Zhu DO [address] [place] [address] Hematology/Oncology 04/16/23 Jael Gunter RN Specialty Legal Cashier Oncology 04/16/23 Debbie Merino MD [address] [place] [address] Breast Diseases 10/18/23 Loom Mechanic Relationship Specialty Start Date End Date Ken Zarco MD PCP - General 01/15/08 Melony Davis MD [address] [place] [address] Radiation Oncology 04/04/23 Hellen Zhu DO [address] [place] [address] Hematology/Oncology 04/16/23 Jael Gunter RN Specialty Legal Cashier Oncology 04/16/23 Debbie Merino MD [address] [place] [address] Breast Diseases 10/18/23 Loom Mechanic Relationship Specialty Start Date End Date Ken Zarco MD PCP - General 01/15/08 Melony Davis MD [address] [place] [address] Radiation Oncology 04/04/23 Hellen Zhu DO [address] [place] [address] Hematology/Oncology 04/16/23 Jael Gunter RN Specialty Legal Cashier Oncology 04/16/23 Debbie Merino MD [address] [place] [address] Breast Diseases 10/18/23 Loom Mechanic Relationship Specialty Start Date End Date Ken Zarco MD PCP - General 01/15/08 Melony Davis MD [address] [place] [address] Radiation Oncology 04/04/23 Hellen Zhu DO [address] [place] [address] Hematology/Oncology 04/16/23 Jael Gunter RN Specialty Legal Cashier Oncology 04/16/23 Debbie Merino MD [address] [place] [address] Breast Diseases 10/18/23 Loom Mechanic Relationship Specialty Start Date End Date Ken Zarco MD PCP - General 01/15/08 Melony Davis MD [address] [place] [address] Radiation Oncology 04/04/23 Hellen Zhu DO [address] [place] [address] Hematology/Oncology 04/16/23 Jael Gunter RN Specialty Legal Cashier Oncology 04/16/23 Debbie Merino MD [address] [place] [address] Breast Diseases 10/18/23 Loom Mechanic Relationship Specialty Start Date End Date Ken Zarco MD PCP - General 01/15/08 Melony Davis MD [address] [place], [place] [address] Radiation Oncology 04/04/23 Hellen Zhu DO [address] [place] [address] Hematology/Oncology 04/16/23 Jael Gunter RN Specialty Legal Cashier Oncology 04/16/23 Debbie Merino MD [address] [place] [address] Breast Diseases 10/18/23 Loom Mechanic Relationship Specialty Start Date End Date Ken Zarco MD PCP - General 01/15/08 Melony Davis MD [address] [place] [address] Radiation Oncology 04/04/23 Hellen Zhu DO [address] [place] [address] Hematology/Oncology 04/16/23 Jael Gunter RN Specialty Legal Cashier Oncology 04/16/23 Debbie Merino MD [address] [place] [address] Breast Diseases 10/18/23 Loom Mechanic Relationship Specialty Start Date End Date Ken Zarco MD PCP - General 01/15/08 Melony Davis MD [address] [place] [address] Radiation Oncology 04/04/23 Hellen Zhu DO [address] [place] [address] Hematology/Oncology 04/16/23 Jael Gunter RN Specialty Legal Cashier Oncology 04/16/23 Debbie Merino MD [address] [place] [address] Breast Diseases 10/18/23 Loom Mechanic Relationship Specialty Start Date End Date Ken Zarco MD PCP - General 01/15/08 Melony Davis MD [address] [place] [address] Radiation Oncology 04/04/23 Hellen Zhu DO [address] [address] Hematology/Oncology 04/16/23 Jael Gunter RN Specialty Legal Cashier Oncology 04/16/23 Debbie Merino MD [address] [place] [address] Breast Diseases 10/18/23 Loom Mechanic Relationship Specialty Start Date End Date Ken Zarco MD PCP - General 01/15/08 Melony Davis MD [address] [place] [address] Radiation Oncology 04/04/23 Hellen Zhu DO [address] [place] [address] Hematology/Oncology 04/16/23 Jael Gunter RN Specialty Legal Cashier Oncology 04/16/23 Debbie Merino MD [address] [place] [address] Breast Diseases 10/18/23 Loom Mechanic Relationship Specialty Start Date End Date Ken Zarco MD PCP - General 01/15/08 Melony Davis MD [address] [place] [address] Radiation Oncology 04/04/23 Hellen Zhu DO [address] [place] [place] [address] Hematology/Oncology 04/16/23 Jael Gunter RN Specialty Legal Cashier Oncology 04/16/23 Debbie Merino MD [address] [place] [address] Breast Diseases 10/18/23 Loom Mechanic Relationship Specialty Start Date End Date Ken Zarco MD PCP - General 01/15/08 Melony Davis MD [address] [place] [address] Radiation Oncology 04/04/23 Hellen Zhu DO [address] [place] [address] Hematology/Oncology 04/16/23 Jael Gunter RN Specialty Legal Cashier Oncology 04/16/23 Debbie Merino MD [address] [place] [address] [phone] Breast Diseases 10/18/23 Loom Mechanic Relationship Specialty Start Date End Date Ken Zarco MD PCP - General 01/15/08 Melony Davis MD [address] [place] [address] Radiation Oncology 04/04/23 Hellen Zhu DO [address] [place] [address] Hematology/Oncology 04/16/23 Jael Gunter RN Specialty Legal Cashier Oncology 04/16/23 Debbie Merino MD [address] [place] [address] 67522 Breast Diseases 10/18/23 Loom Mechanic Relationship Specialty Start Date End Date Ken Zarco MD PCP - General 01/15/08 Melony Davis MD [address] [place] [address] Radiation Oncology 04/04/23 Hellen Zhu DO [address] [place] [address] Hematology/Oncology 04/16/23 Jael Gunter RN Specialty Legal Cashier Oncology 04/16/23 Loom Mechanic Relationship Specialty Start Date End Date Ken Zarco MD PCP - General 01/15/08 Melony Davis MD [address] [place] [address] Radiation Oncology 04/04/23 Hellen Zhu DO [address] [place], [place] [address] [phone] Hematology/Oncology 04/16/23 Jael Gunter RN Specialty Legal Cashier Oncology 04/16/23 Debbie Merino MD [address] [place] [address] 23961 Breast Diseases 10/18/23 Loom Mechanic Relationship Specialty Start Date End Date Ken Zarco MD PCP - General 01/15/08 Melony Davis MD [address] [place] [place], [place] [address] [phone] Radiation Oncology 04/04/23 Hellen Zhu DO [address] [place] [address] Hematology/Oncology 04/16/23 Jael Gunter RN Specialty Legal Cashier Oncology 04/16/23 Debbie Merino MD [address] [place] [address] 75226 Breast Diseases 10/18/23 Loom Mechanic Relationship Specialty Start Date End Date Ken Zarco MD PCP - General 01/15/08 Melony Davis MD [address] [place] [address] Radiation Oncology 04/04/23 Hellen Zhu DO [address] [facility] [place] [address] Hematology/Oncology 04/16/23 Jael Gunter RN Specialty Legal Cashier Oncology 04/16/23 Debbie Merino MD [address] [place] [address] 95936 Breast Diseases 09/06/23 09/06/23 Debbie Merino MD [address] [place] [address] 44067 Breast Diseases 10/18/23 Loom Mechanic Relationship Specialty Start Date End Date Ken Zarco MD PCP - General 01/15/08 Melony Davis MD [address] [facility] [place], [place] [address] [phone] Radiation Oncology 04/04/23 Hellen Zhu DO [address] [place], [place] [address] Hematology/Oncology 04/16/23 Jael Gunter RN Specialty Legal Cashier Oncology 04/16/23 Debbie Merino MD [address] [place] [address] 48360 Breast Diseases 10/18/23 Loom Mechanic Relationship Specialty Start Date End Date Ken Zarco MD PCP - General 01/15/08 Melony Davis MD [address] [place], [place] [address] [phone] Radiation Oncology 04/04/23 Hellen Zhu DO [address] [place] [address] [phone] Hematology/Oncology 04/16/23 Jael Gunter RN Specialty Legal Cashier Oncology 04/16/23 Debbie Merino MD [address] [place] [address] 54354 Breast Diseases 10/18/23 Loom Mechanic Relationship Specialty Start Date End Date Ken Zarco MD PCP - General 01/15/08 Melony Davis MD [address] [place] [address] Radiation Oncology 04/04/23 Hellen Zhu DO [address] [place] [address] Hematology/Oncology 04/16/23 Jael Gunter RN Specialty Legal Cashier Oncology 04/16/23 Debbie Merino MD [address] [place] [address] 34647 Breast Diseases 10/18/23 Loom Mechanic Relationship Specialty Start Date End Date Ken Zarco MD PCP - General 01/15/08 Melony Davis MD [address] [place] [address] Radiation Oncology 04/04/23 Hellen Zhu DO [address] [place] [address] Hematology/Oncology 04/16/23 Jael Gunter RN Specialty Legal Cashier Oncology 04/16/23 Debbie Merino MD [address] [place] [address] 85866 Breast Diseases 10/18/23 Loom Mechanic Relationship Specialty Start Date End Date Ken Zarco MD PCP - General 01/15/08 Melony Davis MD [address] [place] [address] Radiation Oncology 04/04/23 Hellen Zhu DO [address] [place] [address] Hematology/Oncology 04/16/23 Jael Gunter RN Specialty Legal Cashier Oncology 04/16/23 Debbie Merino MD [address] [place] [address] Breast Diseases 10/18/23 Arben Mccann MD [address] [facility] [address] [place] [address] General Surgery 04/27/24 Loom Mechanic Relationship Specialty Start Date End Date Ken Zarco MD PCP - General 01/15/08 Melony Davis MD [address] [address] Radiation Oncology 04/04/23 Hellen Zhu DO [address] [address] Hematology/Oncology 04/16/23 Jael Gunter, EMETERIO Specialty Legal Cashier Oncology 04/16/23 Debbie Merino MD [address] [place] [address] 73044 Breast Diseases 10/18/23 Arben Mccann MD [address] [facility] [address] [place] [address] General Surgery 04/27/24 Loom Mechanic Relationship Specialty Start Date End Date Ken Zarco MD PCP - General 01/15/08 Melony Davis MD [address] [facility] [place] [address] Radiation Oncology 04/04/23 Hellen Zhu DO [address] [place] [address] Hematology/Oncology 04/16/23 Jael Gunter RN Specialty Legal Cashier Oncology 04/16/23 Debbie Merino MD [address] [place] [address] Breast Diseases 10/18/23 Arben Mccann MD [address] [place] [address] [place], [place] 95[address] General Surgery 04/27/24 Loom Mechanic Relationship Specialty Start Date End Date Ken Zarco MD PCP - General 01/15/08 Melony Davis MD [address] [place] [address] Radiation Oncology 04/04/23 Hellen Zhu DO [address] [place] [address] Hematology/Oncology 04/16/23 Jael Gunter RN Specialty Legal Cashier Oncology 04/16/23 Debbie Merino MD [address] [place] [address] Breast Diseases 10/18/23 Arben Mccann MD [address] [facility] [address] [place] [address] General Surgery 04/27/24 Loom Mechanic Relationship Specialty Start Date End Date Ken Zarco MD PCP - General 01/15/08 Melony Davis MD [address] [place], [place] [id number] Radiation Oncology 04/04/23 Hellen Zhu DO [address] [place], [place] [address] Hematology/Oncology 04/16/23 Jael Gunter RN Specialty Legal Cashier Oncology 04/16/23 Debbie Merino MD [address] [place] [address] Breast Diseases 10/18/23 Arben Mccann MD [address] [phone] General Surgery 04/27/24 Team Status: Active Member Role Status Dates Dr. Hellen Lafleur MD Primary Care Provider Active Team Status: Inactive Member Role Status Dates Dr. Alec Kong MD Attending Provider Active Start: April 07, 2024 End: April 07, 2024 Dr. Alec Kong MD Referring Provider Active Start: April 07, 2024 End: April 07, 2024 Dr. Hellen Lafleur MD Primary Care Provider Active Start: April 07, 2024 End: April 07, 2024 Team Status: Inactive Member Role Status Dates Dr. Hellen Lafleur MD Primary Care Provider Active Start: April 29, 2024 End: April 29, 2024 Dr. Hellen Lafleur MD Referring Provider Active Start: April 29, 2024 End: April 29, 2024 Dr. Arben Mccann MD Attending Provider Active Start: April 29, 2024 End: April 29, 2024 Team Status: Inactive Member Role Status Dates Dr. Hellen Lafleur MD Primary Care Provider Active Start: June 30, 2024 End: June 30, 2024 Dr. Alec Kong MD Attending Provider Active Start: June 30, 2024 End: June 30, 2024 Dr. Alec Kong MD Referring Provider Active Start: June 30, 2024 End: June 30, 2024 Loom Mechanic Relationship Specialty Start Date End Date Ken Zarco MD PCP - General 01/15/08 Melony Davis MD [address] [place] [address] Radiation Oncology 04/04/23 Hellen Zhu DO [address] [place] [address] Hematology/Oncology 04/16/23 Jael Gunter RN Specialty Legal Cashier Oncology 04/16/23 Debbie Merino MD [address] [place] [address] 10340 Breast Diseases 10/18/23 [place] [address] [place] [address], [place] [address] General Surgery 04/27/24 Loom Mechanic Relationship Specialty Start Date End Date Ken Zarco MD PCP - General 01/15/08 Melony Davis MD [address] [place] [address] Radiation Oncology 04/04/23 Hellen Zhu DO [address] [place] [address] Hematology/Oncology 04/16/23 Jael Gunter RN Specialty Legal Cashier Oncology 04/16/23 Debbie Merino MD [address] [place] [address], [place] [address] Breast Diseases 10/18/23 Arben Mccann MD [address] [facility] [address] [address] General Surgery 04/27/24 Loom Mechanic Relationship Specialty Start Date End Date Ken Zarco MD PCP - General 01/15/08 Melony Davis MD [address] [facility] [place] [address] Radiation Oncology 04/04/23 Hellen Zhu DO [address] [facility] [place] [address] Hematology/Oncology 04/16/23 Jael Gunter, EMETERIO Specialty Legal Cashier Oncology 04/16/23 Debbie Merino MD [address] [place] [address] 16786 Breast Diseases 10/18/23 Arben Mccann MD [address] [address] General Surgery 04/27/24 Loom Mechanic Relationship Specialty Start Date End Date Ken Zarco MD PCP - General 01/15/08 Melony Davis MD [address] [facility] [address] Radiation Oncology 04/04/23 Hellen Zhu DO [address] [facility] [place] [address] Hematology/Oncology 04/16/23 Jael Gunter RN Specialty Legal Cashier Oncology 04/16/23 Debbie Merino MD [address] [place] [address] Breast Diseases 10/18/23 Arben Mccann MD [address] [place] [address] [place], [place] [address] General Surgery 04/27/24 Loom Mechanic Relationship Specialty Start Date End Date Ken Zarco MD PCP - General 01/15/08 Melony Davis MD [address] [place] [address] Radiation Oncology 04/04/23 Hellen Zhu DO [address] [facility] [place] [address] Hematology/Oncology 04/16/23 Jael Gunter RN Specialty Legal Cashier Oncology 04/16/23 Debbie Merino MD [address] [place] [address] Breast Diseases 10/18/23 Arben Mccann MD [address] [place] [address] [place] [address] General Surgery 04/27/24 Loom Mechanic Relationship Specialty Start Date End Date Ken Zarco MD PCP - General 01/15/08 Melony Davis MD [address] [place] [address] Radiation Oncology 04/04/23 Hellen Zhu DO [address] [place] [address] Hematology/Oncology 04/16/23 Jael Gunter RN Specialty Legal Cashier Oncology 04/16/23 Debbie Merino MD [address] [place] [address] 32340 Breast Diseases 10/18/23 Arben Mccann MD [address] [place] [address] 43[address] General Surgery 04/27/24 Loom Mechanic Relationship Specialty Start Date End Date Ken Zarco MD PCP - General 01/15/08 Melony Davis MD [address] [place] [address] Radiation Oncology 04/04/23 Hellen Zhu DO [address] [place] [address] Hematology/Oncology 04/16/23 Jael Gunter RN Specialty Legal Cashier Oncology 04/16/23 Debbie Merino MD [address] [place] [address] 44710 Breast Diseases 10/18/23 Arben Mccann MD [address] 585961 General Surgery 04/27/24 Team Status: Inactive Member Role Status Dates Dr. Hellen Lafleur MD Primary Care Provider Active Start: August 04, 2024 End: August 04, 2024 Dr. Hellen Zhu DO Attending Provider Active St art: August 04, 2024 End: August 04, 2024 Dr. Hellen Zhu DO Referring Provider Active St art: August 04, 2024 End: August 04, 2024 Loom Mechanic Relationship Specialty Start Date End Date Ken Zarco MD PCP - General 01/15/08 Melony Davis MD [address] [place], [place] [address] Radiation Oncology 04/04/23 Hellen Zhu DO [address] [place], [place] [address] Hematology/Oncology 04/16/23 Jael Gunter, EMETERIO Specialty Legal Cashier Oncology 04/16/23 Debbie Merino MD [address] [place] [address] 34281 Breast Diseases 10/18/23 Arben Mccann MD [address] 140711 General Surgery 04/27/24 Loom Mechanic Relationship Specialty Start Date End Date Ken Zarco MD PCP - General 01/15/08 Melony Davis MD [address] [place] [address] Radiation Oncology 04/04/23 Hellen Zhu DO [address] [place] [address] Hematology/Oncology 04/16/23 Jael Gunter RN Specialty Legal Cashier Oncology 04/16/23 Debbie Merino MD [address] [place] [address] 53445 Breast Diseases 10/18/23 Arben Mccann MD [address] 373071 General Surgery 04/27/24 Loom Mechanic Relationship Specialty Start Date End Date Ken Zarco MD PCP - General 01/15/08 Melony Davis MD [address] [place] [address] Radiation Oncology 04/04/23 Hellen Zhu DO [address] [place] [address] Hematology/Oncology 04/16/23 Jael Gunter RN Specialty Legal Cashier Oncology 04/16/23 Debbie Merino MD [address] [place] [address] 48215 Breast Diseases 10/18/23 Arben Mccann MD [address] [facility] [address] [place] [address] General Surgery 04/27/24 Loom Mechanic Relationship Specialty Start Date End Date Ken Zarco MD PCP - General 01/15/08 Melony Davis MD [address] [place] [address] Radiation Oncology 04/04/23 Hellen Zhu DO [address] [place] [address] Hematology/Oncology 04/16/23 Jael Gunter RN Specialty Legal Cashier Oncology 04/16/23 Debbie Merino MD [address] [place] [address] [phone] Breast Diseases 10/18/23 Arben Mccann MD [address] 266481 General Surgery 04/27/24 Loom Mechanic Relationship Specialty Start Date End Date Ken Zarco MD PCP - General 01/15/08 Melony Davis MD [address] [place] [address] Radiation Oncology 04/04/23 Hellen Zhu DO [address] [place] [address] Hematology/Oncology 04/16/23 Jael Gunter RN Specialty Legal Cashier Oncology 04/16/23 Debbie Merino MD [address] [place] [address] 80851 Breast Diseases 10/18/23 Arben Mccann MD [address] [facility] [address] [place], [place] 49[address] General Surgery 04/27/24 Loom Mechanic Relationship Specialty Start Date End Date Ken Zarco MD PCP - General 01/15/08 Melony Davis MD [address] [facility] [place], [place] [id number] Radiation Oncology 04/04/23 Hellen Zhu DO [address] [place], [place] [phone] Hematology/Oncology 04/16/23 Jael Gunter RN Specialty Legal Cashier Oncology 04/16/23 Debbie Merino MD [address] [place] [address] Breast Diseases 10/18/23 Arben Mccann MD 176 [facility] 102 [place], [place] [address] General Surgery 04/27/24 Team Status: Active Member Role/Relationship Status Dates Dr. Hellen Lafleur MD Primary Care Provider Active Team Status: Inactive Member Role/Relationship Status Dates Dr. Hellen Lafleur MD Primary Care Provider Active Start: June 30, 2024 End: June 30, 2024 Dr. Alec Kong MD Attending Provider Active Start: June 30, 2024 End: June 30, 2024 Dr. Alec Kong MD Referring Provider Active Start: June 30, 2024 End: June 30, 2024 Team Status: Inactive Member Role/Relationship Status Dates Dr. Hellen Lafleur MD Primary Care Provider Active Start: August 04, 2024 End: August 04, 2024 Dr. Hellen Zhu DO Attending Provider Active St art: August 04, 2024 End: August 04, 2024 Dr. Hellen Zhu DO Referring Provider Active St art: August 04, 2024 End: August 04, 2024 Team Status: Inactive Member Role/Relationship Status Dates Dr. Hellen Lafleur MD Primary Care Provider Active Start: September 17, 2024 End: September 17, 2024 Dr. Alec Kong MD Attending Provider Active Start: September 17, 2024 End: September 17, 2024 Dr. Alec Kong MD Referring Provider Active Start: September 17, 2024 End: September 17, 2024 Loom Mechanic Relationship Specialty Start Date End Date Ken Zarco MD PCP - General 01/15/08 Melony Davis MD [address] [facility] [place] [place] [phone] Radiation Oncology 04/04/23 Hellen Zhu DO [address] [facility] [place], [place] [address] Hematology/Oncology 04/16/23 Jael Gunter RN Specialty Legal Cashier Oncology 04/16/23 Debbie Merino MD [address] [place] [address] 85690 Breast Diseases 10/18/23 [place] [address] [place] [address] [id number] General Surgery 04/27/24 Loom Mechanic Relationship Specialty Start Date End Date Ken Zarco MD PCP - General 01/15/08 Melony Davis MD [address] [place] [address] Radiation Oncology 04/04/23 Hellen Zhu DO [address] [place] [address] Hematology/Oncology 04/16/23 Jael Gunter RN Specialty Legal Cashier Oncology 04/16/23 Debbie Merino MD [address] [place] [address], [place] [address] Breast Diseases 10/18/23 Arben Mccann MD [address] [facility] [address] [place], [place] 6[address]31 General Surgery 04/27/24 Loom Mechanic Relationship Specialty Start Date End Date Ken Zarco MD PCP - General 01/15/08 Melony Davis MD [address] [place] [address] Radiation Oncology 04/04/23 Hellen Zhu DO [address] [place] [address] Hematology/Oncology 04/16/23 Jael Gunter RN Specialty Legal Cashier Oncology 04/16/23 Debbie Merino MD [address] [place] [address], [place] [address] Breast Diseases 10/18/23 Arben Mccann MD [address] [facility] [address] [place] [address] General Surgery 04/27/24 Loom Mechanic Relationship Specialty Start Date End Date Ken Zarco MD PCP - General 01/15/08 Melony Davis MD [address] [place] [address] [phone] Radiation Oncology 04/04/23 Hellen Zhu DO [address] [place] [address] Hematology/Oncology 04/16/23 Jael Gunter RN Specialty Legal Cashier Oncology 04/16/23 Debbie Merino MD [address] [place] [address] 44369 Breast Diseases 10/18/23 Arben Mccann MD [address] [id number] General Surgery 04/27/24 Loom Mechanic Relationship Specialty Start Date End Date Ken Zarco MD PCP - General 01/15/08 Melony Davis MD [address] [place] [address] Radiation Oncology 04/04/23 Hellen Zhu DO [address] [place] [address] Hematology/Oncology 04/16/23 Jael Gunter RN Specialty Legal Cashier Oncology 04/16/23 Debbie Merino MD [address] [place] [address], [place] [address] Breast Diseases 10/18/23 Arben Mccann MD [address] [address] General Surgery 04/27/24 Loom Mechanic Relationship Specialty Start Date End Date Ken Zarco MD PCP - General 01/15/08 Melony Davis MD [address] [facility] [address] Radiation Oncology 04/04/23 Hellen Zhu DO [address] [facility] [place] [address] Hematology/Oncology 04/16/23 Jael Gunter, EMETERIO Specialty Legal Cashier Oncology 04/16/23 Debbie Merino MD [address] [place] [address], [place] [address] Breast Diseases 10/18/23 Arben Mccann MD [address] [address] General Surgery 04/27/24 Loom Mechanic Relationship Specialty Start Date End Date Ken Zarco MD PCP - General 01/15/08 Melony Davis MD [address] [facility] [place] [address] Radiation Oncology 04/04/23 Hellen Zhu DO [address] [facility] [place] [address] Hematology/Oncology 04/16/23 Jael Gunter RN Specialty Legal Cashier Oncology 04/16/23 Debbie Merino MD [address] [place] [address] 52430 Breast Diseases 10/18/23 Arben Mccann MD [address] [place] [address] [place], [place] [address] General Surgery 04/27/24 Loom Mechanic Relationship Specialty Start Date End Date Ken Zarco MD PCP - General 01/15/08 Melony Davis MD [address] [facility] [place] [address] Radiation Oncology 04/04/23 Hellen Zhu DO [address] [facility] [place] [address] Hematology/Oncology 04/16/23 Jael Gunter RN Specialty Legal Cashier Oncology 04/16/23 Debbie Merino MD [address] [place] [address] 70759 Breast Diseases 10/18/23 Arben Mccann MD [address] [address] [place] [address] General Surgery 04/27/24 Loom Mechanic Relationship Specialty Start Date End Date Ken Zarco MD PCP - General 01/15/08 Melony Davis MD [address] [place] [address] Radiation Oncology 04/04/23 Hellen Zhu DO [address] [place] [address] Hematology/Oncology 04/16/23 Jael Gunter RN Specialty Legal Cashier Oncology 04/16/23 Debbie Merino MD [address] [place] [address] [phone] Breast Diseases 10/18/23 Arben Mccann MD [address] [address] General Surgery 04/27/24 Loom Mechanic Relationship Specialty Start Date End Date Ken Zarco MD PCP - General 01/15/08 Melony Davis MD [address] [place] [address] Radiation Oncology 04/04/23 Hellen Zhu DO [address] [place] [address] Hematology/Oncology 04/16/23 Jael Gunter RN Specialty Legal Cashier Oncology 04/16/23 Debbie Merino MD [address] [place] [address] [phone] Breast Diseases 10/18/23 Arben Mccann MD [address] [facility] 102 [place] [address] General Surgery 04/27/24 Loom Mechanic Relationship Specialty Start Date End Date Ken Zarco MD PCP - General 01/15/08 Melony Davis MD [address] [place] [address] Radiation Oncology 04/04/23 Hellen Zhu DO [address] [place] [address] Hematology/Oncology 04/16/23 Jael Gunter RN Specialty Legal Cashier Oncology 04/16/23 Debbie Merino MD [address] [place] [address] 40132 Breast Diseases 10/18/23 Arben Mccann MD 1761 [facility] 102 [place] [address] General Surgery 04/27/24 Loom Mechanic Relationship Specialty Start Date End Date Ken Zarco MD PCP - General 01/15/08 Melony Davis MD [address] [place] [address] Radiation Oncology 04/04/23 Hellen Zhu DO [address] [place] [address] Hematology/Oncology 04/16/23 Jael Gunter RN Specialty Legal Cashier Oncology 04/16/23 Debbie Merino MD [address] [place] [address] 09682 Breast Diseases 10/18/23 Arben Mccann MD [address] 109421 General Surgery 04/27/24 Loom Mechanic Relationship Specialty Start Date End Date Ken Zarco MD PCP - General 01/15/08 Melony Davis MD [address] [place], [place] 14[address]41 Radiation Oncology 04/04/23 Hellen Zhu DO [address] [place] [address] Hematology/Oncology 04/16/23 Jael Gunter RN Specialty Legal Cashier Oncology 04/16/23 Debbie Merino MD [address] [place] [address] 68823 Breast Diseases 10/18/23 Arben Mccann MD [address] 705491 General Surgery 04/27/24 Team Status: Inactive Member Role/Relationship Status Dates Dr. Hellen Lafleur MD Primary Care Provider Active Start: October 13, 2024 End: October 13, 2024 TIMO Delvalle NP Attending Provider Active Start: October 13, 2024 End: October 13, 2024 Santana Arellano NP, NP-Bennett Referring Provider Active Start: October 13, 2024 End: October 13, 2024 Team Status: Active Member Role/Relationship Status Dates Dr. Hellen Lafleur MD Primary Care Provider Active Start: October 13, 2024 Santana Hortonorrow AUTOMATIC OVEN OPERATOR, AUTOMATIC OVEN OPERATOR-C Referring Provider Active Start: October 13, 2024 Santana Hortonorrow AUTOMATIC OVEN OPERATOR AUTOMATIC OVEN OPERATOR-C Other Provider Active St art: October 13, 2024 Dr. Bishnu Harrison MD Attending Provider Active Start: October 13, 2024 Loom Mechanic Relationship Specialty Start Date End Date Ken Zarco MD PCP - General 01/15/08 Melony Davis MD [address] [place], [place] [id number] Radiation Oncology 04/04/23 Hellen Zhu DO [address] [place] [address] Hematology/Oncology 04/16/23 Jael Gunter, EMETERIO Specialty Legal Cashier Oncology 04/16/23 Debbie Merino MD [address] [place] [address] 39487 Breast Diseases 10/18/23 Arben Mccann MD [address] [id number] General Surgery 04/27/24 Loom Mechanic Relationship Specialty Start Date End Date Ken Zarco MD PCP - General 01/15/08 Melony Davis MD [address] [place] [address] Radiation Oncology 04/04/23 Hellen Zhu DO [address] [place] [address] Hematology/Oncology 04/16/23 Jael Gunter RN Specialty Legal Cashier Oncology 04/16/23 Debbie Merino MD [address] [place] [address] 35724 Breast Diseases 10/18/23 Arben Mccann MD [address] [id number] General Surgery 04/27/24 Loom Mechanic Relationship Specialty Start Date End Date Ken Zarco MD PCP - General 01/15/08 Melony Davis MD [address] [place] [address] Radiation Oncology 04/04/23 Hellen Zhu DO [address] [place] [address] Hematology/Oncology 04/16/23 Jael Gunter RN Specialty Legal Cashier Oncology 04/16/23 Debbie Merino MD [address] [place] [address] Breast Diseases 10/18/23 Arben Mccann MD [address] [id number] General Surgery 04/27/24 Loom Mechanic Relationship Specialty Start Date End Date Ken Zarco MD PCP - General 01/15/08 Melony Davis MD [address] [place] [address] Radiation Oncology 04/04/23 Hellen Zhu DO [address] [place] [address] Hematology/Oncology 04/16/23 Jael Gunter RN Specialty Legal Cashier Oncology 04/16/23 Debbie Merino MD [address] [place] [address] 66362 Breast Diseases 10/18/23 Arben Mccann MD [address] [facility] [address] [place] [address] General Surgery 04/27/24 Loom Mechanic Relationship Specialty Start Date End Date Ken Zarco MD PCP - General 01/15/08 Melony Davis MD [address] [place] [address] Radiation Oncology 04/04/23 Hellen Zhu DO [address] [place] [address] Hematology/Oncology 04/16/23 Jael Gunter RN Specialty Legal Cashier Oncology 04/16/23 Debbie Merino MD [address] [place] [address] [place] [address] Breast Diseases 10/18/23 Arben Mccann MD [address] [facility] [address] [place] [address] General Surgery 04/27/24 Loom Mechanic Relationship Specialty Start Date End Date Ken Zarco MD PCP - General 01/15/08 Melony Davis MD [address] [place] [place] [address] Radiation Oncology 04/04/23 Hellen Zhu DO [address] [place] [address] Hematology/Oncology 04/16/23 Jael Gunter RN Specialty Legal Cashier Oncology 04/16/23 [place] [address] [place] [address] Breast Diseases 10/18/23 [place] [address] [place] [address] [id number] General Surgery 04/27/24 Loom Mechanic Relationship Specialty Start Date End Date Ken Zarco MD PCP - General 01/15/08 Melony Davis MD [address] [place] [address] Radiation Oncology 04/04/23 Hellen Zhu DO [address] [address] Hematology/Oncology 04/16/23 Jael Gunter RN Specialty Legal Cashier Oncology 04/16/23 Debbie Merino MD [address] [place] [address] 61466 Breast Diseases 10/18/23 Arben Mccann MD [address] [facility] [address] [place] [address] General Surgery 04/27/24 Loom Mechanic Relationship Specialty Start Date End Date Ken Zarco MD PCP - General 01/15/08 Melony Davis MD [address] [facility] [address] Radiation Oncology 04/04/23 Hellen Zhu DO [address] [facility] [place] [address] Hematology/Oncology 04/16/23 Jael Gunter, EMETERIO Specialty Legal Cashier Oncology 04/16/23 Debbie Merino MD [address] [place] [address] 47207 Breast Diseases 10/18/23 Arben Mccann MD [address] [facility] [address] [place] [address] General Surgery 04/27/24 Loom Mechanic Relationship Specialty Start Date End Date Ken Zarco MD PCP - General 01/15/08 Melony Davis MD [address] [facility] [place] [address] Radiation Oncology 04/04/23 Hellen Zhu DO [address] [place] [address] Hematology/Oncology 04/16/23 Jael Gunter RN Specialty Legal Cashier Oncology 04/16/23 Debbie Merino MD [address] [place] [address] 95417 Breast Diseases 10/18/23 Arben Mccann MD [address] [facility] [address] [place], [place] 7289[address] General Surgery 04/27/24 Loom Mechanic Relationship Specialty Start Date End Date Ken Zarco MD PCP - General 01/15/08 Melony Davis MD [address] [place] [address] Radiation Oncology 04/04/23 Hellen Zhu DO [address] [place] [address] Hematology/Oncology 04/16/23 Jael Gunter RN Specialty Legal Cashier Oncology 04/16/23 Debbie Merino MD [address] [place] [address] 86113 Breast Diseases 10/18/23 Arben Mccann MD [address] [facility] [address] [place] [address] General Surgery 04/27/24 Loom Mechanic Relationship Specialty Start Date End Date Ken Zarco MD PCP - General 01/15/08 Melony Davis MD [address] [facility] [place] [address] Radiation Oncology 04/04/23 Hellen Zhu DO [address] [place] [address] Hematology/Oncology 04/16/23 Jael Gunter RN Specialty Legal Cashier Oncology 04/16/23 Debbie Merino MD [address] [place] [address] 96412 Breast Diseases 10/18/23 Arben Mccann MD [address] [place] [address] General Surgery 04/27/24 Loom Mechanic Relationship Specialty Start Date End Date Ken Zarco MD PCP - General 01/15/08 Melony Davis MD [address] [facility] [place] [address] Radiation Oncology 04/04/23 Hellen Zhu DO [address] [place] [address] Hematology/Oncology 04/16/23 Jael Gunter RN Specialty Legal Cashier Oncology 04/16/23 Debbie Merino MD [address] [place] [address] 76853 Breast Diseases 10/18/23 Arben Mccann MD [address] [facility] [address] [place] [address] General Surgery 04/27/24 Loom Mechanic Relationship Specialty Start Date End Date Ken Zarco MD PCP - General 01/15/08 Melony Davis MD [address] [place] [address] Radiation Oncology 04/04/23 Hellen Zhu DO [address] [place] [address] Hematology/Oncology 04/16/23 Jael Gunter RN Specialty Legal Cashier Oncology 04/16/23 Debbie Merino MD [address] [place] [address] 16373 Breast Diseases 10/18/23 Arben Mccann MD [address] [facility] [address] [place] [address] General Surgery 04/27/24 Loom Mechanic Relationship Specialty Start Date End Date Ken Zarco MD PCP - General 01/15/08 Melony Davis MD [address] [place] [address] Radiation Oncology 04/04/23 Hellen Zhu DO [address] [place] [address] Hematology/Oncology 04/16/23 Jael Gunter RN Specialty Legal Cashier Oncology 04/16/23 Debbie Merino MD [address] [place] [address] Breast Diseases 10/18/23 Arben Mccann MD [address] [facility] [address] [address] General Surgery 04/27/24 Loom Mechanic Relationship Specialty Start Date End Date Ken Zarco MD PCP - General 01/15/08 Melony Davis MD [address] [place] [address] Radiation Oncology 04/04/23 Hellen Zhu DO [address] [place] [address] Hematology/Oncology 04/16/23 Jael Gunter RN Specialty Legal Cashier Oncology 04/16/23 Debbie Merino MD [address] [place] [address], [place] [address] Breast Diseases 10/18/23 Arben Mccann MD [address] [address] General Surgery 04/27/24 Loom Mechanic Relationship Specialty Start Date End Date Ken Zarco MD PCP - General 01/15/08 Melony Davis MD [address] [place] [address] Radiation Oncology 04/04/23 Hellen Zhu DO [address] [place] [address] Hematology/Oncology 04/16/23 Jael Gunter RN Specialty Legal Cashier Oncology 04/16/23 Debbie Merino MD [address] [place] [address] 58763 Breast Diseases 10/18/23 Arben Mccann MD [address] 135521 General Surgery 04/27/24 Loom Mechanic Relationship Specialty Start Date End Date Ken Zarco MD PCP - General 01/15/08 Melony Davis MD [address] [place] [address] Radiation Oncology 04/04/23 Hellen Zhu DO [address] [place] [address] Hematology/Oncology 04/16/23 Jael Gunter RN Specialty Legal Cashier Oncology 04/16/23 Debbie Merino MD [address] [place] [address] Breast Diseases 10/18/23 Arben Mccann MD [address] [address] General Surgery 04/27/24 Loom Mechanic Relationship Specialty Start Date End Date Ken Zarco MD PCP - General 01/15/08 Melony Davis MD [address] [address] Radiation Oncology 04/04/23 Hellen Zhu DO [address] [address] Hematology/Oncology 04/16/23 Jael Gunter RN Specialty Legal Cashier Oncology 04/16/23 Debbie Merino MD [address] [place] [address] 44710 Breast Diseases 10/18/23 [place] [address] [place] [address] [phone] General Surgery 04/27/24 Loom Mechanic Relationship Specialty Start Date End Date Ken Zarco MD PCP - General 01/15/08 Melony Davis MD [address] [place] [address] Radiation Oncology 04/04/23 Hellen Zhu DO [address] [place] [address] Hematology/Oncology 04/16/23 Jael Gunter RN Specialty Legal Cashier Oncology 04/16/23 Debbie Merino MD [address] [place] [address] 44710 Breast Diseases 10/18/23 Arben Mccann MD [address] [place] [address] [place], [place] [address] General Surgery 04/27/24 Loom Mechanic Relationship Specialty Start Date End Date Ken Zarco MD PCP - General 01/15/08 Melony Davis MD [address] [facility], [place] [address] Radiation Oncology 04/04/23 Hellen Zhu DO [address] [facility], [place] 6[address]371 Hematology/Oncology 04/16/23 Jael Gunter RN Specialty Legal Cashier Oncology 04/16/23 Debbie Merino MD [address] [place] [address] Breast Diseases 10/18/23 Arben Mccann MD [address] [facility] [address] [place] [address] General Surgery 04/27/24 Team Status: Inactive Member Role/Relationship Status Dates Dr. Hellen Lafleur MD Primary Care Provider Active Start: August 04, 2024 End: August 04, 2024 Dr. Hellen Zhu DO Attending Provider Active St art: August 04, 2024 End: August 04, 2024 Dr. Hellen Zhu DO Referring Provider Active St art: August 04, 2024 End: August 04, 2024 Team Status: Inactive Member Role/Relationship Status Dates Dr. Hellen Lafleur MD Primary Care Provider Active Start: September 17, 2024 End: September 17, 2024 Dr. Alec Kong MD Attending Provider Active Start: September 17, 2024 End: September 17, 2024 Dr. Alec Kong MD Referring Provider Active Start: September 17, 2024 End: September 17, 2024 Team Status: Inactive Member Role/Relationship Status Dates Dr. Hellen Lafleur MD Primary Care Provider Active Start: October 13, 2024 End: October 13, 2024 Santana Arellano AUTOMATIC OVEN OPERATOR, AUTOMATIC OVEN OPERATOR-C Attending Provider Active Start: October 13, 2024 End: October 13, 2024 Santana Arellano AUTOMATIC OVEN OPERATOR, AUTOMATIC OVEN OPERATOR-C Referring Provider Active Start: October 13, 2024 End: October 13, 2024 Team Status: Active Member Role/Relationship Status Dates Dr. Hellen Lafleur MD Primary Care Provider Active Start: October 13, 2024 Santana Arellano AUTOMATIC OVEN OPERATOR, AUTOMATIC OVEN OPERATOR-C Referring Provider Active Start: October 13, 2024 Santana Arellano AUTOMATIC OVEN OPERATOR, AUTOMATIC OVEN OPERATOR-C Other Provider Active St art: October 13, 2024 Dr. Bishnu Harrison MD Attending Provider Active Start: October 13, 2024 Team Status: Inactive Member Role/Relationship Status Dates Dr. Hellen Lafleur MD Primary Care Provider Active Start: November 19, 2024 End: November 19, 2024 Dr. Hellen Zhu DO Attending Provider Active St art: November 19, 2024 End: November 19, 2024 Dr. Hellen Zhu DO Referring Provider Active St art: November 19, 2024 End: November 19, 2024 Goals (unrecognized section and content) Goals may be documented in a n alternate sectionGoals may be documented in an alternate sectionGoals may be documented in an alternate sectionGoals may be documented in an alternate sectionGoals may be documented in an alternate sectionGoals may be documented in an alternate sectionGoals may be documented in an alternate sectionGoals may be documented in an alternate section No data available for this section No data available for this section No data available for this section No data available for this section No data available for this sectionGoals may be documented in an alternate sectionGoals may be documented in an alternate section No data available for this section No data available for this section No data available for this sectionGoals may be documented in an alternate sectionGoals may be documented in an alternate sectionGoals may be documented in an alternate section No data available for this section Inactive Administered Medications - up to 3 most recent administrations Administered Medications (un recognized section and content) Medication Order MAR Action Action Date Dose Rate Site CARBOplatin 141 mg in NaCl 0.9% 124.1 mL (PARAPLATIN) 141 mg (Target AUC = 1.5), INTRAVENOUS, Administer over 30 Minutes, ONCE, 1 dose, On [place] 04/25/23 at 0900, exp 0900 04/26/23 (room temp) Hazardous Chemotherapy Drug: Use appropriate PPE. Antineoplastic Irritant. New Bag/Syringe/Bottle 04/25/2023 11:05 AM EST 141 mg dexAMETHasone 10 mg in NaCl 0.9% 50 mL (DECADRON) 10 mg, INTRAVENOUS, ONCE, 1 dose, On [place] 04/25/23 at 0830, Refrigerate. New Bag/Syringe/Bottle 04/25/2023 8:26 AM EST 10 mg diphenhydrAMINE 25 mg injection (BENADRYL) 25 mg, INTRAVENOUS, ONCE, 1 dose, On [place] 04/25/23 at 0830, Give prior to chemotherapy. Given 04/25/2023 8:26 AM EST 25 mg famotidine 20 mg injection (PEPCID) 20 mg, INTRAVENOUS, ONCE, 1 dose, On [place] 04/25/23 at 0830, Give prior to chemotherapy. REFRIGERATE Given 04/25/2023 8:26 AM EST 20 mg PACLitaxel 128 mg in NaCl 0.9% 296.3333 mL (TAXOL) 128 mg (80 mg/m2 1.6 m2 Treatment Plan BSA from Recorded weight), INTRAVENOUS, Administer over 1 Hours, ONCE, 1 dose, On [place] 04/25/23 at 0830, exp 1600 04/26/23 (room temp) Hazardous Chemotherapy Drug: Use appropriate PPE. Antineoplastic Irritant with Vesicant Potential. Administer with non-DEHP 0.2 micron filter and tubing. New Bag/Syringe/Bottle 04/25/2023 9:59 AM EST 128 mg palonosetron 0.25 mg injection (ALOXI) 0.25 mg, INTRAVENOUS, ONCE, 1 dose, On [place] 04/25/23 at 0830, Flush IV line with NS prior to and following administration. Given 04/25/2023 8:31 AM EST 0.25 mg pembrolizumab 200 mg in NaCl 0.9% 66 mL (KEYTRUDA) 200 mg, INTRAVENOUS, Administer over 30 Minutes, ONCE, 1 dose, On [place] 04/25/23 at 0900, Approx Total Volume:exp 89904/29/23 (room temp) Administer with 0.2 micron filter. New Bag/Syringe/Bottle 04/25/2023 9:21 AM EST 200 mg Inactive Administered Medications - up to 3 most recent administrations Medication Order MAR Action Action Date Dose Rate Site CARBOplatin 145.5 mg in NaCl 0.9% 124.55 mL (PARAPLATIN) 145.5 mg (Target AUC = 1.5), INTRAVENOUS, Administer over 30 Minutes, ONCE, 1 dose, On Sat05/03/23 at 0900, exp 99905/04/23 (room temp) Hazardous Chemotherapy Drug: Use appropriate PPE. Antineoplastic Irritant. New Bag/Syringe/Bottle 05/03/2023 10:37 AM EST 145.5 mg dexAMETHasone 10 mg in NaCl 0.9% 50 mL (DECADRON) 10 mg, INTRAVENOUS, ONCE, 1 dose, On Sat05/03/23 at 0900, Refrigerate. New Bag/Syringe/Bottle 05/03/2023 9:08 AM EST 10 mg diphenhydrAMINE 25 mg injection (BENADRYL) 25 mg, INTRAVENOUS, ONCE, 1 dose, On Sat05/03/23 at 0900, Give prior to chemotherapy. Given 05/03/2023 8:59 AM EST 25 mg famotidine 20 mg injection (PEPCID) 20 mg, INTRAVENOUS, ONCE, 1 dose, On Sat05/03/23 at 0900, Give prior to chemotherapy. REFRIGERATE Given 05/03/2023 9:02 AM EST 20 mg PACLitaxel 128 mg in NaCl 0.9% 296.3333 mL (TAXOL) 128 mg (80 mg/m2 1.6 m2 Treatment Plan BSA from Recorded weight), INTRAVENOUS, Administer over 1 Hours, ONCE, 1 dose, On Sat05/03/23 at 0900, exp 89905/04/23 (room temp) Hazardous Chemotherapy Drug: Use appropriate PPE. Antineoplastic Irritant with Vesicant Potential. Administer with non-DEHP 0.2 micron filter and tubing. New Bag/Syringe/Bottle 05/03/2023 9:29 AM EST 128 mg palonosetron 0.25 mg injection (ALOXI) 0.25 mg, INTRAVENOUS, ONCE, 1 dose, On Sat05/03/23 at 0900, Flush IV line with NS prior to and following administration. Given 05/03/2023 8:57 AM EST 0.25 mg Inactive Administered Medications - up to 3 most recent administrations Medication Order MAR Action Action Date Dose Rate Site CARBOplatin 150 mg in NaCl 0.9% 125 mL (PARAPLATIN) 150 mg (rounded from 153.6 mg, Target AUC = 1.5), INTRAVENOUS, Administer over 30 Minutes, ONCE, 1 dose, On Sat05/10/23 at 0930, Approx Total Volume - Expires: 05/11/23 @ 0930 Hazardous Chemotherapy Drug: Use appropriate PPE. Antineoplastic Irritant. New Bag/Syringe/Bottle 05/10/2023 11:08 AM EST 150 mg dexAMETHasone 10 mg in NaCl 0.9% 50 mL (DECADRON) 10 mg, INTRAVENOUS, Administer over 15 Minutes, ONCE, 1 dose, On Sat05/10/23 at 0930, Refrigerate. New Bag/Syringe/Bottle 05/10/2023 9:36 AM EST 10 mg diphenhydrAMINE 25 mg injection (BENADRYL) 25 mg, INTRAVENOUS, ONCE, 1 dose, On Sat05/10/23 at 0930, Give prior to chemotherapy. Given 05/10/2023 9:30 AM EST 25 mg famotidine 20 mg injection (PEPCID) 20 mg, INTRAVENOUS, ONCE, 1 dose, On Sat05/10/23 at 0930, Give prior to chemotherapy. REFRIGERATE Given 05/10/2023 9:34 AM EST 20 mg PACLitaxel 128 mg in NaCl 0.9% 296.3333 mL (TAXOL) 128 mg (80 mg/m2 1.6 m2 Treatment Plan BSA from Recorded weight), INTRAVENOUS, Administer over 1 Hours, ONCE, 1 dose, On Sat05/10/23 at 0930, Approx Total Volume - Expires: 05/11/23 @ 1530 Hazardous Chemotherapy Drug: Use appropriate PPE. Antineoplastic Irritant with Vesicant Potential. Administer with non-DEHP 0.2 micron filter and tubing. New Bag/Syringe/Bottle 05/10/2023 9:56 AM EST 128 mg palonosetron 0.25 mg injection (ALOXI) 0.25 mg, INTRAVENOUS, ONCE, 1 dose, On Sat05/10/23 at 0930, Flush IV line with NS prior to and following administration. Given 05/10/2023 9:32 AM EST 0.25 mg Inactive Administered Medications - up to 3 most recent administrations Medication Order MAR Action Action Date Dose Rate Site CARBOplatin 148.5 mg in NaCl 0.9% 124.85 mL (PARAPLATIN) 148.5 mg (Target AUC = 1.5), INTRAVENOUS, Administer over 30 Minutes, ONCE, 1 dose, On Sat05/17/23 at 0930, exp 0915 05/18/23 (room temp) Hazardous Chemotherapy Drug: Use appropriate PPE. Antineoplastic Irritant. New Bag/Syringe/Bottle 05/17/2023 11:27 AM EST 148.5 mg dexAMETHasone 10 mg in NaCl 0.9% 50 mL (DECADRON) 10 mg, INTRAVENOUS, ONCE, 1 dose, On Sat05/17/23 at 0900, Refrigerate. New Bag/Syringe/Bottle 05/17/2023 9:05 AM EST 10 mg 230 mL/hr diphenhydrAMINE 25 mg injection (BENADRYL) 25 mg, INTRAVENOUS, ONCE, 1 dose, On Sat05/17/23 at 0900, Give prior to chemotherapy. Given 05/17/2023 9:01 AM EST 25 mg famotidine 20 mg injection (PEPCID) 20 mg, INTRAVENOUS, ONCE, 1 dose, On Sat05/17/23 at 0900, Give prior to chemotherapy. REFRIGERATE Given 05/17/2023 8:58 AM EST 20 mg PACLitaxel 128 mg in NaCl 0.9% 296.3333 mL (TAXOL) 128 mg (80 mg/m2 1.6 m2 Treatment Plan BSA from Recorded weight), INTRAVENOUS, Administer over 1 Hours, ONCE, 1 dose, On Sat05/17/23 at 0900, exp 1400 05/18/23 (room temp) Hazardous Chemotherapy Drug: Use appropriate PPE. Antineoplastic Irritant with Vesicant Potential. Administer with non-DEHP 0.2 micron filter and tubing. New Bag/Syringe/Bottle 05/17/2023 10:17 AM EST 128 mg 296 mL/hr palonosetron 0.25 mg injection (ALOXI) 0.25 mg, INTRAVENOUS, ONCE, 1 dose, On Sat05/17/23 at 0900, Flush IV line with NS prior to and following administration. Given 05/17/2023 8:56 AM EST 0.25 mg pembrolizumab 200 mg in NaCl 0.9% 66 mL (KEYTRUDA) 200 mg, INTRAVENOUS, Administer over 30 Minutes, ONCE, 1 dose, On Sat05/17/23 at 0900, Approx Total Volume: 66 mL Administer with 0.2 micron filter. New Bag/Syringe/Bottle 05/17/2023 9:33 AM EST 200 mg 132 mL/hr Inactive Administered Medications - up to 3 most recent administrations Medication Order MAR Action Action Date Dose Rate Site pegfilgrastim 6 mg injection (NEULASTA) 6 mg, SUBCUTANEOUS, ONCE, 1 dose, On 06/03/23 at 1030 Given 06/03/2023 10:34 AM EDT 6 mg Arm, Right Inactive Administered Medications - up to 3 most recent administrations Medication Order MAR Action Action Date Dose Rate Site CARBOplatin 148.8 mg in NaCl 0.9% 124.88 mL (PARAPLATIN) 148.8 mg (Target AUC = 1.5), INTRAVENOUS, Administer over 30 Minutes, ONCE, 1 dose, On Sat06/07/23 at 0830, exp 0900 06/08/23 (room temp) Hazardous Chemotherapy Drug: Use appropriate PPE. Antineoplastic Irritant. New Bag/Syringe/Bottle 06/07/2023 11:00 AM EDT 148.8 mg dexAMETHasone 10 mg in NaCl 0.9% 50 mL (DECADRON) 10 mg, INTRAVENOUS, ONCE, 1 dose, On Sat06/07/23 at 0830, Refrigerate. New Bag/Syringe/Bottle 06/07/2023 8:41 AM EDT 10 mg diphenhydrAMINE 25 mg injection (BENADRYL) 25 mg, INTRAVENOUS, ONCE, 1 dose, On Sat06/07/23 at 0830, Give prior to chemotherapy. Given 06/07/2023 8:41 AM EDT 25 mg famotidine 20 mg injection (PEPCID) 20 mg, INTRAVENOUS, ONCE, 1 dose, On Sat06/07/23 at 0830, Give prior to chemotherapy. REFRIGERATE Given 06/07/2023 8:41 AM EDT 20 mg PACLitaxel 128 mg in NaCl 0.9% 296.3333 mL (TAXOL) 128 mg (80 mg/m2 1.6 m2 Treatment Plan BSA from Recorded weight), INTRAVENOUS, Administer over 1 Hours, ONCE, 1 dose, On Sat06/07/23 at 0830, exp 1500 06/08/23 (room temp). Hazardous Chemotherapy Drug: Use appropriate PPE. Antineoplastic Irritant with Vesicant Potential. Administer with non-DEHP 0.2 micron filter and tubing. New Bag/Syringe/Bottle 06/07/2023 9:47 AM EDT 128 mg palonosetron 0.25 mg injection (ALOXI) 0.25 mg, INTRAVENOUS, ONCE, 1 dose, On Sat06/07/23 at 0830, Flush IV line with NS prior to and following administration. Given 06/07/2023 8:41 AM EDT 0.25 mg pembrolizumab 200 mg in NaCl 0.9% 66 mL (KEYTRUDA) 200 mg, INTRAVENOUS, Administer over 30 Minutes, ONCE, 1 dose, On Sat06/07/23 at 0830, Approx Total Volume: exp 0900 06/11/23 (room temp) Administer with 0.2 micron filter. New Bag/Syringe/Bottle 06/07/2023 9:11 AM EDT 200 mg Inactive Administered Medications - up to 3 most recent administrations Medication Order MAR Action Action Date Dose Rate Site pegfilgrastim 6 mg injection (NEULASTA) 6 mg, SUBCUTANEOUS, ONCE, 1 dose, On Sat06/14/23 at 1000 Given 06/14/2023 9:53 AM EDT 6 mg Arm, Right Inactive Administered Medications - up to 3 most recent administrations Medication Order MAR Action Action Date Dose Rate Site filgrastim biosimilar 300 mcg injection (ZARXIO) 300 mcg, SUBCUTANEOUS, ONCE, 1 dose, On Sat06/24/23 at 1100, Refrigerate - Protect from light Given 06/24/2023 11:18 AM EDT 300 mcg Arm, Right Inactive Administered Medications - up to 3 most recent administrations Medication Order MAR Action Action Date Dose Rate Site filgrastim biosimilar 300 mcg injection (ZARXIO) 300 mcg, SUBCUTANEOUS, ONCE, 1 dose, On Sat06/25/23 at 1130, Refrigerate - Protect from light Given 06/25/2023 11:32 AM EDT 300 mcg Arm, Left Inactive Administered Medications - up to 3 most recent administrations Medication Order MAR Action Action Date Dose Rate Site filgrastim biosimilar 300 mcg injection (ZARXIO) 300 mcg, SUBCUTANEOUS, ONCE, 1 dose, On Sat06/26/23 at 1130, Refrigerate - Protect from light Given 06/26/2023 11:33 AM EDT 300 mcg Arm, Right Inactive Administered Medications - up to 3 most recent administrations Medication Order MAR Action Action Date Dose Rate Site filgrastim biosimilar 300 mcg injection (ZARXIO) 300 mcg, SUBCUTANEOUS, ONCE, 1 dose, On Sat06/27/23 at 1030, Refrigerate - Protect from light Given 06/27/2023 10:21 AM EDT 300 mcg Arm, Left Inactive Administered Medications - up to 3 most recent administrations Medication Order MAR Action Action Date Dose Rate Site filgrastim biosimilar 300 mcg injection (ZARXIO) 300 mcg, SUBCUTANEOUS, ONCE, 1 dose, On Sat07/01/23 at 1030, Refrigerate - Protect from light Given 07/01/2023 10:24 AM EDT 300 mcg Arm, Right Inactive Administered Medications - up to 3 most recent administrations Medication Order MAR Action Action Date Dose Rate Site filgrastim biosimilar 300 mcg injection (ZARXIO) 300 mcg, SUBCUTANEOUS, ONCE, 1 dose, On Sat07/02/23 at 1430, Refrigerate - Protect from light Given 07/02/2023 2:09 PM EDT 300 mcg Arm, Left Inactive Administered Medications - up to 3 most recent administrations Medication Order MAR Action Action Date Dose Rate Site filgrastim biosimilar 300 mcg injection (ZARXIO) 300 mcg, SUBCUTANEOUS, ONCE, 1 dose, On Sat07/03/23 at 1600, Refrigerate - Protect from light Given 07/03/2023 3:36 PM EDT 300 mcg Arm, Right Inactive Administered Medications - up to 3 most recent administrations Medication Order MAR Action Action Date Dose Rate Site filgrastim biosimilar 300 mcg injection (ZARXIO) 300 mcg, SUBCUTANEOUS, ONCE, 1 dose, On Sat07/04/23 at 1330, Refrigerate - Protect from light Given 07/04/2023 2:15 PM EDT 300 mcg Arm, Left Inactive Administered Medications - up to 3 most recent administrations Medication Order MAR Action Action Date Dose Rate Site CARBOplatin 150 mg in NaCl 0.9% 125 mL (PARAPLATIN) 150 mg (Target AUC = 1.5), INTRAVENOUS, Administer over 30 Minutes, ONCE, 1 dose, On Sat07/05/23 at 0830, exp 0900 07/06/23 (room temp) Hazardous Chemotherapy Drug: Use appropriate PPE. Antineoplastic Irritant. New Bag/Syringe/Bottle 07/05/2023 10:03 AM EDT 150 mg dexAMETHasone 10 mg in NaCl 0.9% 50 mL (DECADRON) 10 mg, INTRAVENOUS, ONCE, 1 dose, On Sat07/05/23 at 0830, Refrigerate. New Bag/Syringe/Bottle 07/05/2023 8:33 AM EDT 10 mg diphenhydrAMINE 25 mg injection (BENADRYL) 25 mg, INTRAVENOUS, ONCE, 1 dose, On Sat07/05/23 at 0830, Give prior to chemotherapy. Given 07/05/2023 8:33 AM EDT 25 mg famotidine 20 mg injection (PEPCID) 20 mg, INTRAVENOUS, ONCE, 1 dose, On Sat07/05/23 at 0830, Give prior to chemotherapy. REFRIGERATE Given 07/05/2023 8:33 AM EDT 20 mg PACLitaxel 128 mg in NaCl 0.9% 296.3333 mL (TAXOL) 128 mg (80 mg/m2 1.6 m2 Treatment Plan BSA from Recorded weight), INTRAVENOUS, Administer over 1 Hours, ONCE, 1 dose, On Sat07/05/23 at 0830, exp 1400 07/10/23 (refrigerated) Hazardous Chemotherapy Drug: Use appropriate PPE. Antineoplastic Irritant with Vesicant Potential. Administer with non-DEHP 0.2 micron filter and tubing. New Bag/Syringe/Bottle 07/05/2023 8:55 AM EDT 128 mg palonosetron 0.25 mg injection (ALOXI) 0.25 mg, INTRAVENOUS, ONCE, 1 dose, On Sat07/05/23 at 0830, Flush IV line with NS prior to and following administration. Given 07/05/2023 8:33 AM EDT 0.25 mg Inactive Administered Medications - up to 3 most recent administrations Medication Order MAR Action Action Date Dose Rate Site filgrastim biosimilar 300 mcg injection (ZARXIO) 300 mcg, SUBCUTANEOUS, ONCE, 1 dose, On 07/08/23 at 0900, Refrigerate - Protect from light Given 07/08/2023 8:54 AM EDT 300 mcg Arm, Right Inactive Administered Medications - up to 3 most recent administrations Medication Order MAR Action Action Date Dose Rate Site filgrastim biosimilar 300 mcg injection (ZARXIO) 300 mcg, SUBCUTANEOUS, ONCE, 1 dose, On Tu07/09/23 at 1130, Refrigerate - Protect from light Given 07/09/2023 11:37 AM EDT 300 mcg Arm, Left Inactive Administered Medications - up to 3 most recent administrations Medication Order MAR Action Action Date Dose Rate Site filgrastim biosimilar 300 mcg injection (ZARXIO) 300 mcg, SUBCUTANEOUS, ONCE, 1 dose, On Sat07/10/23 at 1530, Refrigerate - Protect from light Given 07/10/2023 3:43 PM EDT 300 mcg Arm, Right Inactive Administered Medications - up to 3 most recent administrations Medication Order MAR Action Action Date Dose Rate Site filgrastim biosimilar 300 mcg injection (ZARXIO) 300 mcg, SUBCUTANEOUS, ONCE, 1 dose, On [place] 07/11/23 at 1430, Refrigerate - Protect from light Given 07/11/2023 2:33 PM EDT 300 mcg Arm, Left Inactive Administered Medications - up to 3 most recent administrations Medication Order MAR Action Action Date Dose Rate Site CARBOplatin 159.45 mg in NaCl 0.9% 125.945 mL (PARAPLATIN) 159.45 mg (Target AUC = 1.5), INTRAVENOUS, Administer over 30 Minutes, ONCE, 1 dose, On Sat07/12/23 at 0930, exp 1000 07/13/23 (room temp) Hazardous Chemotherapy Drug: Use appropriate PPE. Antineoplastic Irritant. New Bag/Syringe/Bottle 07/12/2023 11:10 AM EDT 159.45 mg dexAMETHasone 10 mg in NaCl 0.9% 50 mL (DECADRON) 10 mg, INTRAVENOUS, ONCE, 1 dose, On Sat07/12/23 at 0930, Refrigerate. New Bag/Syringe/Bottle 07/12/2023 9:39 AM EDT 10 mg diphenhydrAMINE 25 mg injection (BENADRYL) 25 mg, INTRAVENOUS, ONCE, 1 dose, On Sat07/12/23 at 0930, Give prior to chemotherapy. Given 07/12/2023 9:35 AM EDT 25 mg famotidine 20 mg injection (PEPCID) 20 mg, INTRAVENOUS, ONCE, 1 dose, On Sat07/12/23 at 0930, Give prior to chemotherapy. REFRIGERATE Given 07/12/2023 9:37 AM EDT 20 mg PACLitaxel 128 mg in NaCl 0.9% 296.3333 mL (TAXOL) 128 mg (80 mg/m2 1.6 m2 Treatment Plan BSA from Recorded weight), INTRAVENOUS, Administer over 1 Hours, ONCE, 1 dose, On Sat07/12/23 at 0930, exp 109907/18/23 (refrigerated) Hazardous Chemotherapy Drug: Use appropriate PPE. Antineoplastic Irritant with Vesicant Potential. Administer with non-DEHP 0.2 micron filter and tubing. New Bag/Syringe/Bottle 07/12/2023 9:59 AM EDT 128 mg palonosetron 0.25 mg injection (ALOXI) 0.25 mg, INTRAVENOUS, ONCE, 1 dose, On Sat07/12/23 at 0930, Flush IV line with NS prior to and following administration. Given 07/12/2023 9:33 AM EDT 0.25 mg Inactive Administered Medications - up to 3 most recent administrations Medication Order MAR Action Action Date Dose Rate Site CARBOplatin 150 mg in NaCl 0.9% 125 mL (PARAPLATIN) 150 mg (Target AUC = 1.5), INTRAVENOUS, Administer over 30 Minutes, ONCE, 1 dose, On Sat06/28/23 at 1030, exp 109906/29/23 (room temp) Hazardous Chemotherapy Drug: Use appropriate PPE. Antineoplastic Irritant. New Bag/Syringe/Bottle 06/28/2023 1:19 PM EDT 150 mg dexAMETHasone 10 mg in NaCl 0.9% 50 mL (DECADRON) 10 mg, INTRAVENOUS, ONCE, 1 dose, On Sat06/28/23 at 1030, Refrigerate. New Bag/Syringe/Bottle 06/28/2023 11:20 AM EDT 10 mg diphenhydrAMINE 25 mg injection (BENADRYL) 25 mg, INTRAVENOUS, ONCE, 1 dose, On Sat06/28/23 at 1030, Give prior to chemotherapy. Given 06/28/2023 11:14 AM EDT 25 mg famotidine 20 mg injection (PEPCID) 20 mg, INTRAVENOUS, ONCE, 1 dose, On Sat06/28/23 at 1030, Give prior to chemotherapy. REFRIGERATE Given 06/28/2023 11:16 AM EDT 20 mg PACLitaxel 128 mg in NaCl 0.9% 296.3333 mL (TAXOL) 128 mg (80 mg/m2 1.6 m2 Treatment Plan BSA from Recorded weight), INTRAVENOUS, Administer over 1 Hours, ONCE, 1 dose, On Sat06/28/23 at 1030, exp 1000 07/07/23 (refrigerated) Hazardous Chemotherapy Drug: Use appropriate PPE. Antineoplastic Irritant with Vesicant Potential. Administer with non-DEHP 0.2 micron filter and tubing. New Bag/Syringe/Bottle 06/28/2023 12:12 PM EDT 128 mg palonosetron 0.25 mg injection (ALOXI) 0.25 mg, INTRAVENOUS, ONCE, 1 dose, On Sat06/28/23 at 1030, Flush IV line with NS prior to and following administration. Given 06/28/2023 11:18 AM EDT 0.25 mg pembrolizumab 200 mg in NaCl 0.9% 66 mL (KEYTRUDA) 200 mg, INTRAVENOUS, Administer over 30 Minutes, ONCE, 1 dose, On Sat06/28/23 at 1030, Approx Total Volume:exp 1100 07/01/23 (room temp) Administer with 0.2 micron filter. New Bag/Syringe/Bottle 06/28/2023 11:36 AM EDT 200 mg FOR RECORDS PERTAINING TO PATIENTS WHO ARE [...] BE BASED ON THE PRIMARY CLINICAL RECORDS. [employer] provides no warranty or guarantee of the accuracy or completeness of information in this document.
== END | disposition home or self-care (01) ==
LOC: ONC 07:23
PROVIDERS: PCP Family Medicine; Referring Provider Internal Medicine Hematology & Oncology; Visit Provider Internal Medicine Hematology & Oncology
DX: C50.912 Malignant neoplasm of unspecified site of left female breast (principal); C79.2 Secondary malignant neoplasm of skin; C77.3 Secondary and unspecified malignant neoplasm of axilla and upper limb lymph nodes; Z17.421 Hormone receptor negative with human epidermal growth factor receptor 2 negative status
CPT/HCPCS: 78815; A9552

== ENCOUNTER → 2025-03-09 | Outpatient (CLI) | payer MEDICARE, OTHER, SELFPAY ==
--- OUTSIDE RECORDS SUMMARY | 2025-03-09 06:40 | XMS RPT_ITS | CCD ---
Author Organization [facility] Care Team Providers Care Sandfill Operator Name Role Phone Cogar RN NEUROLOGY, [place] N Unavailable Cogar RN NEUROLOGY, [place] N Unavailable Cogar RN NEUROLOGY, [place] N Unavailable RUSIA, DEEPAM Unavailable Unavailable RUSIA, DEEPAM Unavailable Unavailable Cogar RN NEUROLOGY, [place] N Unavailable Wade ANAND, Ken Wren Primary Care Provider Ken Zarco MD Primary Care Provider Ken Zarco MD Primary Care Provider Ken Zarco MD Primary Care Provider [phone] Ryan ANAND MD, Daesung Unavailable Dr. Hellen Lafleur Primary Care Provider Dr. Hellen Lafleur Referring Provider Dr. Arben Mccann Attending Provider Dr. Arben Mccann Referring Provider Dr. Arben [...] UNKNOWN Admitting Unavailable PROVIDER, UNKNOWN Attending Unavailable WADE, KEN A Primary Care Unavailable HELLEN ZHU [...] Provider Dr. Arben Mccann MD Attending Provider [phone] Dr. Hellen Lafleur MD Primary Care Provider [phone] Dr. Alec Kong MD Attending Provider [phone] Dr. Alec Kong MD Referring Provider [phone] Dr. Hellen Zhu DO Attending Provider [phone] Hellen Zhu DO Referring Provider [phone] Hellen Lafleur MD Primary Care Provider [phone] HELLEN ZHU Referring Unavailable WADE KEN A Primary Care Unavailable Cliffordorrow FURNACE HAND-CSantana Attending Provider Cliffordorrow FURNACE HAND-CSantana Referring Provider Cliffordorrow FURNACE HAND-CSantana Other Provider Hunter ANAND, Dr. Goetz Attending Provider Miquel ANAND, Dr. Blue Primary Care Provider Dilan ANAND, Dr. Michael Attending Provider Dilan ANADN, Dr. Michael Referring Provider [phone] WILBER ANAND, DR LEWIS Attending Unavailkirk ZARCO MD, KEN A Primary Care Unavailable WADE ANAND, KEN A Primary Care Unavailable WILBER ANAND, DR LEWIS Attending Unavailkirk ZARCO MD, KEN A Primary Care Unavailable SLIAS LEVY Consulting Unavailable MARISELA SMITHN-SAMPLE BODY BUILDER, RAFIQ Aguayo Attending Josey ZARCO MD, KEN A Primary Care Unavailable WILBER ANAND, DR LEWIS Attending Unavailkirk ZARCO MD, KEN A Primary Care Unavailable WILBER ANAND, DR LEWIS Attending Unavailabl e Miquel, Hellen Primary Care Unavailable Dilan, Alec Attending Unavailable Alec Kong Referring Unavailable Lafleur, Hellen Primary Care Unavailable Ajay Burnett Attending Unavailabl e Lafleur, Hellen Primary Care Unavailable Alec Kong Attending Unavailable Alec Kong Referring Unavailable Masci, Hellen Attending Unavailable Masci, Hellen Referring Unavailable Lafleur, Hellen Primary Care Unavailable McMorrow FURNACE HAND, Santana Attending Unavailable McMorrow FURNACE HAND, Santana Referring Unavailable Lafleur, Hellen Primary Care Unavailable Lafleur, Hellen Primary Care Unavailable Alec Kong Attending Unavailable Alec Kong Referring Unavailable Masci, Hellen Attending Unavailable Masci, Hellen Referring Unavailable Lafleur, Hellen Primary Care Unavailable Masci, Hellen Referring Unavailable Lafleur, Hellen Primary Care Unavailable Mascgwyn, Hellen Attending Unavailable Bishnu Harrison Attending Unavailable McMorrow FURNACE HANDSantana Consulting Unavailable McMorrow FURNACE HAND, Santana Referring Unavailable Lafleur, Hellen Primary Care Unavailable Lafleur, Hellen Primary Care Unavailable Lafleur, Hellen Referring Unavailable Arben Mccann Attending Unavailable Miquel ANAND, Dr. Blue Primary Care Physician McMorrow FURNACE HAND-C, Santana Attending Physician McMorrow FURNACE HAND-C, Santana Referring Provider McMorrow FURNACE HAND-C, Santana Nurse Practitioner Hunter ANAND, Dr. Goetz Attending Physician Mascgwyn DO, Dr. Blue Attending Physician [phone] Ayaan DO, Dr. Blue Referring Provider [facility], Dr. Moss Attending Physician [facility] hospitalcolten[facility]isty DO, Dr. Moss [facility] ZARCO, KEN A Primary Care Unavailable MARY GREEN Attending Unavailable MASCI, HELLEN A Referring Unavailable MASCI, [...] Unavailable MASCI, HELLEN A Referring Unavailable ZARCO, EKN A Primary Care Unavailable MASCI, HELLEN A [...] Primary Care Unavailable YONI MANCERA Referring Unavailable MASCI, HELLEN A Referring Unavailable ZARCO, KEN A Primary Care Unavailable MASCI, HELLEN A Referring Unavailable ZARCO, KEN A Primary Care Unavailable MASCI, HELLEN A Referring Unavailable ZARCO, KEN A Primary Care Unavailable MASCI, HELLEN A Referring Unavailable ZARCO, KEN A Primary Care Unavailable ZARCO, KEN A Primary Care Unavailable DEBBIE MERINO Referring Unavailable MARLENE BLANCO Attending Unavailable MASCI, HELLEN A Referring Unavailable ZARCO, KEN A Primary Care Unavailable MASCI, HELLEN A Attending Unavailable MASCI, [...] Unavailable ZARCO, KEN A Primary Care Unavailable DEMARCUS RODRIGUEZ Attending Unavailable MASCI, HELLEN A Referring Unavailable ZARCO, KEN A Primary Care Unavailable MASCI, HELLEN A Attending Unavailable MASCI, [...] Care Unavailable MASCI, HELLEN A Attending Unavailable MASCI, HELLEN A Referring Unavailable ZARCO, KEN A Primary Care Unavailable ZARCO, KEN A Primary Care Unavailable YONI MANCERA Referring Unavailable MASCI, HELLEN A Referring Unavailable ZARCO, KEN A Primary Care Unavailable MASCI, HELLEN A Attending Unavailable MASCI, [...] KEN A Primary Care Unavailable YONI MANCERA Attending Unavailable SHILAD, DEBBIE Referring Unavailable SELF Referring Unavailable SANFORD, KEILA A Attending Unavailable ZARCO, KEN A Primary [...] Care Unavailable MASCI, HELLEN A Attending Unavailable MASCI, [...] Unavailable ZARCO, KEN A Primary Care Unavailable RAMÓNMARY SOTELO Attending Unavailable MASCI, HELLEN A Referring Unavailable [...] Unavailable ZARCO, KEN A Primary Care Unavailable Allergies Allergy Classification Reported Allergen(s) Allergy Type Date of Onset Reaction(s) Facility (4 sources) sulfamethoxazole / trimethoprim drug allergy 7 bloated/diarrh ea [facility] Work Phone: (20 sources) Sulfamethoxazole; Translations: [SULFAMETHOXAZOLE] Drug Allergy 4 GI Upset [facility] (20 sources) Trimethoprim; Translations: [TRIMETHOPRIM] Drug Allergy 0 Other: See Comments [facility] (9 sources) Sulfamethoxazole / Trimethoprim; Translations: [sulfamethoxazole-tr imethoprim] Drug Allergy Stomach ache (finding) [facility] (1 source) Sulfamethoxazole Drug Allergy 5 [facility] (1 source) Trimethoprim Drug Allergy 5 [facility] Medications Current Medications Medication Drug [...] day(s), # 10 tab(s), 0 Refill(s), Pharmacy: [id number], Acute post-operative pain, 165.1, cm, 10/02/23 7:27:00 [...] th once daily. No amino acids amylase 85664 unt / lipase 77881 unt / protease 25805 unt delayed release oral capsule (8 sources) Start: 11-27-2019 take 1 capsule by mouth three times daily Hmldze-Rrorjlra-Akm lase Active 1 CAP PO THREE TIMES [...] daily. calcium carbonate 1500 mg oral tablet (7 sources) Start: 4 calcium citrate 315 mg oral tablet (9 sources) Start: 4 take 2 tablets by mouth once daily in the morning calcium (as calcium citrate) 315 mg oral tablet 2 tab(s), Oral, qAM, 0 Refill(s) Start Date: 09/23/23 Status: Ordered Medication Dispense Status: Completed Total Allowed Fills: 1 Fills Dispensed: 0 cholecalciferol 0.025 mg oral capsule (7 sources) Vitamin D Start: 4 take 1 capsule by mouth once daily cholecalciferol, vitamin D3, (VITAMIN D3 ORAL) (20 [...] communication, - NONCYTOTOXIC VESICANT - lactobacillus acidophilus [id number] unt oral capsule (20 sources) take 1 [...] mouth as needed. 04/17/2023 Active Start: 04-17-2023 Start: 04-17-2023 take 250 mg by mouth [...] 0 Start: 09-23-2023 take 1 capsule by mo ut once daily in the morning Multiple Vitamins oral capsule Dose = 1 cap(s), Oral, qAM, 0 Refill(s) Start Date: 09/23/23 Status: Ordered Repeat number: 1 Start: 09-23-2023 take 1 capsule by mo ut once daily in the morning Multiple Vitamins oral capsule Dose = 1 cap(s), Oral, qAM, 0 Refill(s) Start Date: 09/23/23 Status: Ordered Multivitamin (Daily Multi-Vi tamin) tablet (7 sources) Start: 04-18-2023 Start: 04-18-2023 Multivitamin ( Daily Multi-Vitamin) tablet Active 1 {tbl} PO DAILY April 18, 2023 1:00am Start: 04-18-2023 take 1 tablet by reinaldo once daily Multivitamin (Daily Multi-Vitamin) tablet Active 1 TABLET PO DAILY April 18, 2023 12:00am mupirocin 0.02 mg/mg topical ointment (4 sources) RNA Synthetase Inhibitor Antibacterial Start: 09-23-2023 mupirocin 2% topical ointment Apply 1 jass, Topical, BID, Bilateral intranasal application twice daily x 5 days pre-surgery &/or as many days pre-surgery as possible., Apply to: nostril, each, # 22 gram(s), 0 Refill(s), Pharmacy: [id number], Ointment, 167, cm, 09/23/23 11:47:00 EDT, Height, [...] (20 sources) Serotonin Reuptake Inhibitor Start: 06-26-2005 take 1 tablet by mouth once daily Comment on above: Take one(1) tablet d [...] Comment on above: Take 1 tablet by reianldo th every 6 hours as needed (For chemotherapy induced nausea and vomiting). saccharomyces boulardii 250 mg oral capsule (15 sources) Start: 12-18-19 take 1 capsule by mouth twice daily triamcinolone acetonide 1 mg/ml topical lotion (20 [...] Start: 11-29-2019 take 2 tablets by mo uth every six hours as needed acetaminophen (TYLENOL) [...] on above: Take 1 tablet by reinaldo three times a day as needed for up to 30 days. amoxicillin 500 mg oral capsule (4 sources) Penicillin-class Antibacterial Start: 7 AMOXICILLIN 500 MG CAPS 2 capsules twice a day AMOXICILLIN [id number] Sarwat Reaves PA 1 ml atropine sulfate 0.4 mg/ml injection [...] once daily. ciprofloxacin 500 mg oral tablet (15 sources) Quinolone Antimicrobial Start: 11-29-19 End: 12-06-19 take 1 tablet by mouth twice daily Ciprofloxacin Hcl 500 MG tablet Discontinued 500 mg PO TWICE A DAY 14 7 0 November 28, 2019 11:00pm December 04, 2019 11:00pm December 05, 2019 11:03pm 1 ml dexamethasone phosphate 10 mg/ml injection [...] 25 mg, INTRAVENOUS, ONCE, 1 dose, On e 10/20/24 at 0930 Start: 10-13-2024 End: 10-13-2024 25 mg, INTRAVENOUS, ONCE, 1 dose, On e 10/13/24 at 1030 Start: 10-06-2024 End: 10-06-2024 25 mg, INTRAVENOUS, ONCE, 1 dose, On e 10/06/24 at 0900 Start: 09-29-2024 End: 09-29-2024 25 mg, INTRAVENOUS, ONCE, 1 dose, On 09/29/24 at 1000 Start: 09-22-2024 End: 09-22-2024 25 mg, INTRAVENOUS, ONCE, 1 dose, On 09/22/24 at 0830 Start: 09-01-2024 End: 09-01-2024 25 mg, INTRAVENOUS, ONCE, 1 dose, On Sat09/01/24 at 1130 Start: 08-25-2024 End: 08-25-2024 25 mg, INTRAVENOUS, ONCE, 1 dose, On e 08/25/24 at 1130 Start: 08-04-2024 End: 08-04-2024 25 mg, INTRAVENOUS, ONCE, 1 dose, On e 08/04/24 at 1130 Start: 07-28-2024 End: 07-28-2024 25 mg, INTRAVENOUS, ONCE, 1 dose, On e 07/28/24 at 1130 Start: 07-28-2024 50 mg, INTRAVE NOUS, NEEDED, 1 dose, Starting on Sat07/28/24 at 1122, Until Discontinued, Administer per hypersensitivity/anaphylaxis [...] 20 mg, INTRAVENOUS, ONCE, 1 dose, On Sat11/03/24 at 1330, REFRIGERATE Start: 10-20-2024 End: 10-20-2024 [...] mg oral tablet (1 source) Antiemetic Start: 021 End: 022 take 1 tablet by mouth every six hours as needed for dizziness meclizine (ANTIVERT) 25 mg tab Indications: Vertigo Take 1 tablet by mouth every 6 hours as needed (dizziness). 12 tablet 0 03/17/2021 09/18/2021 Discontinued Comment on above: Take 1 tablet by [facility] every 6 hours as needed (dizziness). metroNIDAZOLE 500 mg oral tablet (15 sources) Nitroimidazole Antimicrobial Start: End: take 1 tablet by mouth three times daily Metronidazole 500 MG tablet Discontinued 500 mg PO THREE TIMES A DAY 21 7 0 November 28, 2019 11:00pm December 04, 2019 11:00pm December 05, 2019 11:03pm omeprazole 40 mg delayed release oral capsule (20 sources) Proton Pump Inhibitor Start: End: take 1 capsule by mouth once daily Omeprazole 40 MG capsule,delayed release(DR/EC) Discontinued 40 mg PO DAILY December 18, 2019 7:48am April 17, 2023 8:24am reflux 2 ml ondansetron 2 mg/ml injection [...] 05/16/2023 Discontinued Start: 12-18-2019 End: 11-02-2024 take 4-8 mg by mouth every eight hours as needed for nausea Comment on above: Take 1 tablet by [...] Potassium Chloride (Klor-Con M20) 20 MEQ Tab.Er.Prt (15 sources) Start: 11-29-2019 End: 12-04-2019 take 1 tablet by mouth once daily Potassium Chloride (Klor-Con M20) 20 MEQ Tab.Er.Prt Discontinued 20 meq PO DAILY 5 5 November 28, 2019 11:00pm December 02, 2019 11:00pm December 03, 2019 11:02pm Start: 11-29-2019 End: 12-04-2019 take 1 tablet by mouth once daily Potassium Chloride (Klor-Con M20) 20 MEQ Tab.Er.Prt Discontinued 20 meq PO DAILY 5 5 0 November 29, 2019 12:00am December 03, 2019 [...] MEQ Tab.Er.Prt Discontinued 20 MEQ PO DAILY 5 5 November 29, 2019 12:00am December 04, 2019 12:02am [...] ontinued 10 mg PO daily 30 12 November 02, 2019 11:00pm November 13, 2019 11:00pm November 14, 2019 11:02pm Unspecified contact dermatitis, unspecified cause Take 4 tabs once daily days 1-3 3 tabs once daily days 4-6 2 tabs once daily days 7-9 and 1 tab once daily days 10-12. sacituzumab [facility] 40 mg in NaCl 0.9% 329 [...] THREE TIMES A DAY December 18, 2019 7:48am April 17, 2023 8:25am Problems Active Problems Problem Classification Problem Date Documented Da te Episodic/Chronic Abdominal pain (2 sources) Epigastric pain; Translations: [Epigastric pain] Episodic Allergic reactions (16 sources) Irritant contact dermatitis due to plant; [...] Translations: [Gastro-esophageal reflux disease without esophagitis] Chronic Fever of unknown origin (2 sources) Fever, unspecified; Translations: [Fever] Onset: 5 01-18-2025 Episodic Fluid and electrolyte disorders (15 sources) Hypokalemia; Translations: [Hypokalemia] 11-29-2019 Episodic Gastrointestinal [...] upper outer quadrant] Onset: 4 09-10-2023 Episodic Nutritional deficiencies (1 source) Vitamin D deficiency, unspecified; Translations: [Vitamin D deficiency] Onset: 5 Chronic Other aftercare (9 sources) Patient encounter status; Translations: [Encounter for [...] skin] 09-22-2024 Episodic Other nervous system disorders (1 source) [...] malignancies (1 source) Secondary malignant neoplasm of bone; 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)] Onset: 5 Chronic Secondary malignancies (1 source) Secondary malignant [...] pain or lower extremity pain] Onset: 5 Unclassified (1 source) Recheck Onset: 5 Viral infection (1 source) Acute [...] [Constipation, unspecified] Onset: 7 09-19-2006 Episodic Other nervous system disorders (4 sources) Anesthesia of skin; Translations: [Left arm numbness] Onset: 5 Episodic Other screening for suspected conditions (not [...] Test Name Value Interpretation Reference Range Facility CBC W Auto Differential pane l (Bld)on 01-26-2025 Basophils (Bld) [#/Vol] 0.07 10*3/uL Normal <0.11 [facility] Comment on above: Order Comment: Speci men Type: BLOOD SPECIMENOrdering Facility: [facility] Address: [address] [place] [address] Performed By: #### 5 7021-8 ####[facility] [id number] [place] [address] [place] Basophils/100 WBC (Bld) 0.9 % Normal [facility] Comment on above: Order Comment: Speci men Type: BLOOD SPECIMENOrdering Facility: [facility] Address: [address] [place] [address] Performed By: #### 5 7021-8 ####[facility] VUTEMITOPEELICIAA [id number] [place] [address] [place] Differential cell count method Nom (Bld) Auto Normal [facility] Comment on above: Order Comment: Speci men Type: BLOOD SPECIMENOrdering Facility: [facility] Address: [address] [place] [address] Performed By: #### 5 7021-8 ####[facility] OMARRICHELLEA [id number] [place] [address] [place] Eosinophils (Bld) [#/Vol] 0.64 10*3/uL High <0.46 [facility] Comment on above: Order Comment: Speci men Type: BLOOD SPECIMENOrdering Facility: [facility] Address: [address] [place] [address] Performed By: #### 5 7021-8 ####[facility] OMARRICHELLEA [id number] [place] [address] [place] Eosinophils/100 WBC (Bld) 8.0 % Normal [facility] Comment on above: Order Comment: Speci men Type: BLOOD SPECIMENOrdering Facility: [facility] Address: [address] [place] [address] Performed By: #### 5 7021-8 ####[facility] VUTEMITOPELIA [id number] [place] [address] [place] Erythrocyte distribution width (RBC) [Ratio] 14.2 % Normal 11.5-15.0 [facility] Comment on above: Order Comment: Speci men Type: BLOOD SPECIMENOrdering Facility: [facility] Address: [address] [place] [address] Performed By: #### 5 7021-8 ####[facility]ITALTEMITOPELIA [id number] [place] [address] [place] Hematocrit (Bld) [Volume fraction] 31.2 % Low 36.0-46.0 [facility] Comment on above: Order Comment: Speci men Type: BLOOD SPECIMENOrdering Facility: [facility] Address: [address] [place] [address] Performed By: #### 5 7021-8 ####[facility] GLENBEIGHELICIA [id number] [place] [address] [place] Hemoglobin (Bld) [Mass/Vol] 10.7 g/dL Low 11.5-15.5 [facility] Comment on above: Order Comment: Speci men Type: BLOOD SPECIMENOrdering Facility: [facility] Address: [address] [place] [address] Performed By: #### 5 7021-8 ####[facility] [id number] [place] [address] [place] Immature granulocytes (Bld) [#/Vol] 0.05 10*3/uL Normal <0.10 [facility] Comment on above: Order Comment: Speci men Type: BLOOD SPECIMENOrdering Facility: [facility] Address: [address] [place] [address] Performed By: #### 5 7021-8 ####[facility] [id number] [place] [address] [place] Immature granulocytes/100 WBC (Bld) 0.6 % Normal [facility] Comment on above: Order Comment: Speci men Type: BLOOD SPECIMENOrdering Facility: [facility] Address: [address] [place] [address] Performed By: #### 5 7021-8 ####[facility]ITAL[facility]CL[facility] [id number] [place] [address] [place] Lymphocytes (Bld) [#/Vol] 0.79 10*3/uL Low 1.00-4.00 [facility] Comment on above: Order Comment: Speci men Type: BLOOD SPECIMENOrdering Facility: [facility] Address: [address] [place] [address] Performed By: #### 5 7021-8 ####[facility] [id number] [place] [address] [place] Lymphocytes/100 WBC (Bld) 9.8 % Normal [facility] Comment on above: Order Comment: Speci men Type: BLOOD SPECIMENOrdering Facility: [facility] Address: [address] [place] [address] Performed By: #### 5 7021-8 ####[facility] [id number] [place] [address] [place] MCH (RBC) [Entitic mass] 31.5 pg Normal 26.0-34.0 [facility] Comment on above: Order Comment: Speci men Type: BLOOD SPECIMENOrdering Facility: [facility] Address: [address] [place] [address] Performed By: #### 5 7021-8 ####[facility] [id number] [place] [address] [place] MCHC (RBC) [Mass/Vol] 34.3 g/dL Normal 30.5-36.0 [facility] Comment on above: Order Comment: Speci men Type: BLOOD SPECIMENOrdering Facility: [facility] Address: [address] [place], [place] [address] Performed By: #### 5 7021-8 ####[facility] [id number] [place] [address] [place] MCV (RBC) [Entitic vol] 91.8 fL Normal 80.0-100.0 [facility] Comment on above: Order Comment: Speci men Type: BLOOD SPECIMENOrdering Facility: [facility] Address: [address] [place] [address] Performed By: #### 5 7021-8 ####[facility] NAVNEETLIA [id number] [place] [address] [place] Monocytes (Bld) [#/Vol] 0.55 10*3/uL Normal <0.87 [facility] Comment on above: Order Comment: Speci men Type: BLOOD SPECIMENOrdering Facility: [facility] Address: [address] [place] [address] Performed By: #### 5 7021-8 ####[facility]ITALTEMITOPELIA [id number] [place] [address] [place] Monocytes/100 WBC (Bld) 6.8 % Normal [facility] Comment on above: Order Comment: Speci men Type: BLOOD SPECIMENOrdering Facility: [facility] Address: [address] [place] [address] Performed By: #### 5 7021-8 ####[facility]ITAL[facility]OPEL[facility] [id number] [place] [address] [place] Neutrophils (Bld) [#/Vol] 5.93 10*3/uL Normal 1.45-7.50 [facility] Comment on above: Order Comment: Speci men Type: BLOOD SPECIMENOrdering Facility: [facility] Address: [address] [place] [address] Performed By: #### 5 7021-8 ####[facility] P[facility] RIDGEWNCLIA [id number] [place] [address] [place] Neutrophils/100 WBC (Bld) 73.9 % Normal [facility] Comment on above: Order Comment: Speci men Type: BLOOD SPECIMENOrdering Facility: [facility] Address: [address] [place] [address] Performed By: #### 5 7021-8 ####[facility] [id number] [place] [address] [place] Nucleated RBC (Bld) [#/Vol] 10*3/uL Normal <0.01 [facility] Comment on above: Order Comment: Speci men Type: BLOOD SPECIMENOrdering Facility: [facility] Address: [address] [place] [address] Performed By: #### 5 7021-8 ####[facility] [id number] [place] [address] [place] Nucleated RBC/100 WBC (Bld) [Ratio] 0.0 /100 WBC Normal [facility] Comment on above: Order Comment: Speci men Type: BLOOD SPECIMENOrdering Facility: [facility] Address: [address] [place] [address] Performed By: #### 5 7021-8 ####[facility] [id number] [place] [address] [place] Platelet mean volume (Bld) [Entitic vol] 8.1 fL Low 9.0-12.7 [facility] Comment on above: Order Comment: Speci men Type: BLOOD SPECIMENOrdering Facility: [facility] Address: [address] [place] [address] Performed By: #### 5 7021-8 ####[facility] [id number] [place] [address] [place] Platelets (Bld) [#/Vol] 422 10*3/uL High 150-400 [facility] Comment on above: Order Comment: Speci men Type: BLOOD SPECIMENOrdering Facility: [facility] Address: [address] [place] [address] Performed By: #### 5 7021-8 ####[facility]BEIGHL[facility] [id number] [place] [address] [place] RBC (Bld) [#/Vol] 3.40 10*6/uL Low 3.90-5.[address] [facility] Comment on above: Order Comment: Speci men Type: BLOOD SPECIMENOrdering Facility: [facility] Address: [address] [place] [address] Performed By: #### 5 7021-8 ####[facility] RIDGEWNCLIA [id number] [place] [address] [place] WBC (Bld) [#/Vol] 8.03 10*3/uL Normal 3.70-11.[address] [facility] Comment on above: Order Comment: Speci men Type: BLOOD SPECIMENOrdering Facility: [facility] Address: [address] [place] [address] Performed By: #### 5 7021-8 ####[facility] HOSPITALNCA [id number] [place] [address] [place] Comprehensive metabolic 2000 panelon 01-26-2025 Albumin [Mass/Vol] 4.3 g/dL Normal 3.9-4.9 [facility] Comment on above: Order Comment: Speci men Type: BLOOD SPECIMENOrdering Facility: [facility] Address: [address] [place] [address] Performed By: #### 2 4323-8 ####[facility]ITALNCLIA [id number] [place] [address] [place] ALP [Catalytic activity/Vol] 100 U/L Normal 34-123 [facility] Comment on above: Order Comment: Speci men Type: BLOOD SPECIMENOrdering Facility: [facility] Address: [address] [place] [address] Performed By: #### 2 4323-8 ####[facility] H[facility]PITALNCLIA [id number] [place] [address] [place] ALT [Catalytic activity/Vol] 9 U/L Normal 7-38 [facility] Comment on above: Order Comment: Speci men Type: BLOOD SPECIMENOrdering Facility: [facility] Address: [address] [place] [address] Performed By: #### 2 4323-8 ####[facility] GALINA DORAWNCLIA [id number] [place] [address] [place] Anion gap [Moles/Vol] 10 mmol/L Normal 8-15 [facility] Comment on above: Order Comment: Speci men Type: BLOOD SPECIMENOrdering Facility: [facility] Address: [address] [place] [address] Performed By: #### 2 4323-8 ####[facility] OMARTOWNCLIA [id number] [place] [address] [place] AST [Catalytic activity/Vol] 13 U/L Normal 13-35 [facility] Comment on above: Order Comment: Speci men Type: BLOOD SPECIMENOrdering Facility: [facility] Address: [address] [place] [address] Performed By: #### 2 4323-8 ####[facility] OMARWNCLIA [id number] [place] [address] [place] Bilirubin [Mass/Vol] mg/dL Low 0.2-1.3 [facility] Comment on above: Order Comment: Speci men Type: BLOOD SPECIMENOrdering Facility: [facility] Address: [address] [place] [address] Performed By: #### 2 4323-8 ####[facility] MILLTOWNCLIA [id number] [place] [address] [place] Calcium [Mass/Vol] 9.5 mg/dL Normal 8.5-10.2 [facility] Comment on above: Order Comment: Speci men Type: BLOOD SPECIMENOrdering Facility: [facility] Address: [address] [place] [address] Performed By: #### 2 4323-8 ####[facility] MILLTOWNCLIA [id number] [place] [address] [place] Chloride [Moles/Vol] 96 mmol/L Low 98-107 [facility] Comment on above: Order Comment: Speci men Type: BLOOD SPECIMENOrdering Facility: [facility] Address: [address] [place] [address] Performed By: #### 2 4323-8 ####[facility] PINE RIDGEWVALIA [id number] [place] [address] [place] CO2 [Moles/Vol] 28 mmol/L Normal 22-30 [facility] Comment on above: Order Comment: Speci men Type: BLOOD SPECIMENOrdering Facility: [facility] Address: [address] [place] [address] Performed By: #### 2 4323-8 ####[facility] HOSPITALA [id number] [place] [address] [place] Creatinine [Mass/Vol] 0.66 mg/dL Normal 0.58-0.96 [facility] Comment on above: Order Comment: Speci men Type: BLOOD SPECIMENOrdering Facility: [facility] Address: [address] [place] [address] Performed By: #### 2 4323-8 ####[facility] GLENBEIGHLI [id number] [place] [address] [place] eGFRcr SerPlBld CKD-EPI 2020 97 mL/min/1.73m??? Normal >=60 [facility] Comment on above: Order Comment: Speci men Type: BLOOD SPECIMENOrdering Facility: [facility] Address: [address] [place] [address] Result Comment: Alayna mated Glomerular Filtration Rate [...] actual GFR. Performed By: #### 2 4323-8 ####[facility] HOSPITALNCLIA [id number] [place] [address] [place] Glucose [Mass/Vol] 87 mg/dL Normal 74-99 [facility] Comment on above: Order Comment: Speci men Type: BLOOD SPECIMENOrdering Facility: [facility] Address: [address] [place], [place] [address] Result Comment: The [place] Diabetes Association (ADA) provides guidance for cutoff [...] Standards of Medical Care in Diabetes 2016, [place] Diabetes Association. Diabetes Care. 2016.39(Suppl 1). Performed By: #### 2 4323-8 ####[facility] HOSPITALA [id number] [place] [address] [place] Potassium [Moles/Vol] 4.0 mmol/L Normal 3.7-5.1 [facility] Comment on above: Order Comment: Speci men Type: BLOOD SPECIMENOrdering Facility: [facility] Address: [address] [place] [address] Performed By: #### 2 4323-8 ####[facility] [id number] [place] [address] [place] Protein [Mass/Vol] 6.7 g/dL Normal 6.3-8.0 [facility] Comment on above: Order Comment: Speci men Type: BLOOD SPECIMENOrdering Facility: [facility] Address: [address] [place] [address] Performed By: #### 2 4323-8 ####[facility] JEROMEA [id number] [place] [address] [place] Sodium [Moles/Vol] 134 mmol/L Low 136-144 [facility] Comment on above: Order Comment: Speci men Type: BLOOD SPECIMENOrdering Facility: [facility] Address: [address] [place] [address] Performed By: #### 2 4323-8 ####[facility] VUNCLIA [id number] [place] [address] [place] Urea nitrogen [Mass/Vol] 11 mg/dL Normal 7-21 [facility] Comment on above: Order Comment: Speci men Type: BLOOD SPECIMENOrdering Facility: [facility] Address: [address] [place] [address] Performed By: #### 2 4323-8 ####[facility] OMARBABSON PARKNCLIA [id number] [place] [address] [place] OUTSIDE SURG PATH SLIDE REVI EWon 01-26-2025 AP DISCLAIMER Normal [facility] Comment on above: Order Comment: Speci men Type: FORMALIN-FIXED PARAFFIN-EMBEDDED TISSUE SPECIMENOrdering Facility: Outside Review Address: , , Result Comment: Nadya Arellano Test (LDT) Disclaimer:Performance characteristics of immunohistochemical, immunofluorescent, and chromogenic in-situ hybridization tests have been determined by the performing laboratory within the [facility] Department of Pathology and Laboratory Medicine ([facility], [facility], [facility], [facility], [facility], [facility], or [facility]) in a manner consistent with CLIA requirements. One or more of these tests may not have been cleared or approved by the FDA. The [facility] Department of Pathology and Laboratory Medicine is regulated under CLIA as qualified to perform high-complexity testing. These tests are used for clinical purposes. These should not be regarded as investigational or for research. Positive and negative controls stain appropriately. Performed By: #### L [id number] ####[facility] LABCLIA [id number] [address] CASE REPORT Normal [facility] Comment on above: Order Comment: Speci men Type: FORMALIN-FIXED PARAFFIN-EMBEDDED TISSUE SPECIMENOrdering Facility: AP Outside Review Address: , , Result Comment: Surg [facility] Pathology Report Case: [id number] Provider: Marlene Blanco MD Collected: 01/26/2025 09:52 PMOrdering Location: [facility] Received: 01/26/2025 09:51 PM [facility] LaboratoryPathologist: Pedro Luis Palma MDSpecimen: Slide(s), 8 SLIDES [id number] Performed By: #### L [id number] ####[facility] LABCLIA [id number] [address] FINAL DIAGNOSIS Normal [facility] Comment on above: Order Comment: Speci men Type: FORMALIN-FIXED PARAFFIN-EMBEDDED TISSUE SPECIMENOrdering Facility: AP Outside Review Address: , , Result Comment: 8 sl ides received from [place], [place], labeled [id number], from procedure dated 08/26/2024:Breast, right, 1-2 o'clock, core biopsy:- Angiosarcoma.[facility] 01/27/25 at 1256 EST Performed By: #### L [id number] ####[facility] LABCLIA [id number] [address] FINAL PERFORMING LAB Normal [facility] Comment on above: Order Comment: Speci men Type: FORMALIN-FIXED PARAFFIN-EMBEDDED TISSUE SPECIMENOrdering Facility: AP Outside Review Address: , , Result Comment: Diag nostic interpretation performed at: [facility], [address] [id number] CLIA# [id number] Director: Rob Mello MD Performed By: #### L [id number] ####[facility] LABCLIA [id number] [place] [id number] [place] 25(OH)D3 SerPl-mCncon 2024 25-hydroxyvitamin D3 [Mass/Vol] 45.4 ng/mL Normal 31.0-80.0 [facility] Comment on above: Order Comment: Speci men Type: BLOOD SPECIMENOrdering Facility: [facility] Address: [address] [place] [address] Performed By: #### 1 989-3 ####[facility] LABCLIA [id number] [place] [id number] [place] CNPNon 01-20-2025 CNPN Normal [facility] CBC W Auto Differential pane l (Bld)on 01-18-2025 Basophils (Bld) [#/Vol] 0.31 10*3/uL High <0.11 [facility] Comment on above: Order Comment: Speci men Type: BLOOD SPECIMENOrdering Facility: [facility] Address: [address] [place] [address] Performed By: #### 5 7021-8 ####[facility] PINE RIDGEWTEMITOPELIA [id number] [address] LABORATORYCLIA [id number] [place] [address] [place] Basophils/100 WBC (Bld) 2.0 % Normal [facility] Comment on above: Order Comment: Speci men Type: BLOOD SPECIMENOrdering Facility: [facility] Address: [address] [place] [address] Performed By: #### 5 7021-8 ####[facility] PINE RIDGEWNCLIA [id number] [address] LABORATORYCLIA [id number] [place] [address] [place] Dacrocytes LM Ql (Bld) Few Normal [facility] Comment on above: Order Comment: Speci men Type: BLOOD SPECIMENOrdering Facility: [facility] Address: [address] [place] [address] Performed By: #### 5 7021-8 ####[facility] MILLTOWNCLIA [id number] [address] LABORATORYCLIA [id number] [place] [address] [place] Differential cell count method Nom (Bld) Manual Normal [facility] Comment on above: Order Comment: Speci men Type: BLOOD SPECIMENOrdering Facility: [facility] Address: [address] [place] [address] Performed By: #### 5 7021-8 ####[facility]ITALNCLIA [id number] [address] LABORATORYCLIA [id number] [place] [address] [place] Eosinophils (Bld) [#/Vol] 0.92 10*3/uL High <0.46 [facility] Comment on above: Order Comment: Speci men Type: BLOOD SPECIMENOrdering Facility: [facility] Address: [address] [place] [address] Performed By: #### 5 7021-8 ####[facility] PINE RIDGEWVALIA [id number] [address] LABORATORYCLIA [id number] [place] [address] [place] Eosinophils/100 WBC (Bld) 6.0 % Normal [facility] Comment on above: Order Comment: Speci men Type: BLOOD SPECIMENOrdering Facility: [facility] Address: [address] [place] [address] Performed By: #### 5 7021-8 ####[facility] MILLTOWNCLIA [id number] [address] LABORATORYCLIA [id number] [place] [address] [place] Erythrocyte distribution width (RBC) [Ratio] 14.8 % Normal 11.5-15.0 [facility] Comment on above: Order Comment: Speci men Type: BLOOD SPECIMENOrdering Facility: [facility] Address: [address] [place] [address] Performed By: #### 5 7021-8 ####[facility] PINE RIDGEWNCLIA [id number] [address] LABORATORYIA [id number] [place] [address] [place] Hematocrit (Bld) [Volume fraction] 31.9 % Low 36.0-46.0 [facility] Comment on above: Order Comment: Speci men Type: BLOOD SPECIMENOrdering Facility: [facility] Address: [address] [place] [address] Performed By: #### 5 7021-8 ####[facility] PINE RIDGEWTEMITOPELIA [id number] [address] LABORATORYCLIA [id number] [place] [address] [place] Hemoglobin (Bld) [Mass/Vol] 10.9 g/dL Low 11.5-15.5 [facility] Comment on above: Order Comment: Speci men Type: BLOOD SPECIMENOrdering Facility: [facility] Address: [address] [place] [address] Performed By: #### 5 7021-8 ####[facility] PINE RIDGEWNCLIA [id number] [address] LABORATORYCLIA [id number] [place] [address] [place] Lymphocytes (Bld) [#/Vol] 1.23 10*3/uL Normal 1.00-4.00 [facility] Comment on above: Order Comment: Speci men Type: BLOOD SPECIMENOrdering Facility: [facility] Address: [address] [place] [address] Performed By: #### 5 7021-8 ####[facility] GLENBEIGHLIA [id number] [address] LABORATORYCLIA [id number] [address] Lymphocytes/100 WBC (Bld) 8.0 % Normal [facility] Comment on above: Order Comment: Speci men Type: BLOOD SPECIMENOrdering Facility: [facility] Address: [address] [place] [address] Performed By: #### 5 7021-8 ####[facility] [id number] [address] LABORATORYCLIA [id number] [place] [address] [place] MCH (RBC) [Entitic mass] 31.0 pg Normal 26.0-34.0 [facility] Comment on above: Order Comment: Speci men Type: BLOOD SPECIMENOrdering Facility: [facility] Address: [address] [place] [address] Performed By: #### 5 7021-8 ####[facility]ITALA [id number] [address] LABORATORYCLIA [id number] [place] [address] [place] MCHC (RBC) [Mass/Vol] 34.2 g/dL Normal 30.5-36.0 [facility] Comment on above: Order Comment: Speci men Type: BLOOD SPECIMENOrdering Facility: [facility] Address: [address] [place] [address] Performed By: #### 5 7021-8 ####[facility] MILLTOWNCLIA [id number] [address] LABORATORYCLIA [id number] [address] [place] MCV (RBC) [Entitic vol] 90.6 fL Normal 80.0-100.0 [facility] Comment on above: Order Comment: Speci men Type: BLOOD SPECIMENOrdering Facility: [facility] Address: [address] [place] [address] Performed By: #### 5 7021-8 ####[facility] MILLTOWNCLIA [id number] [address] LABORATORYCLIA [id number] [address] [place] Monocytes (Bld) [#/Vol] 0.77 10*3/uL Normal <0.87 [facility] Comment on above: Order Comment: Speci men Type: BLOOD SPECIMENOrdering Facility: [facility] Address: [address] [place] [address] Performed By: #### 5 7021-8 ####[facility] PINE RIDGEWNCLIA [id number] [address] LABORATORYCLIA [id number] [address] [facility] Monocytes/100 WBC (Bld) 5.0 % Normal [facility] Comment on above: Order Comment: Speci men Type: BLOOD SPECIMENOrdering Facility: [facility] Address: [address] [place], [place] [address] Performed By: #### 5 7021-8 ####[facility] MILLTOWNCLIA [id number] [address] LABORATORYCLIA [id number] [place] [address] [place] Neutrophils (Bld) [#/Vol] 12.11 10*3/uL High 1.45-7.50 [facility] Comment on above: Order Comment: Speci men Type: BLOOD SPECIMENOrdering Facility: [facility] Address: [address] [place] [address] Performed By: #### 5 7021-8 ####[facility] PINE RIDGEWNCLIA [id number] [address] LABORATORYCLIA [id number] [place] [address] [place] Neutrophils/100 WBC (Bld) 79.0 % Normal [facility] Comment on above: Order Comment: Speci men Type: BLOOD SPECIMENOrdering Facility: [facility] Address: [address] [place] [address] Performed By: #### 5 7021-8 ####[facility] GLENBEIGHLIA [id number] [address] LABORATORYCLIA [id number] [place] [address] [place] Nucleated RBC (Bld) [#/Vol] 10*3/uL Normal <0.01 [facility] Comment on above: Order Comment: Speci men Type: BLOOD SPECIMENOrdering Facility: [facility] Address: [address] [place] [address] Performed By: #### 5 7021-8 ####[facility] [id number] [address] LABORATORYCLIA [id number] [place] [address] [place] Nucleated RBC/100 WBC (Bld) [Ratio] 0.0 /100 WBC Normal [facility] Comment on above: Order Comment: Speci men Type: BLOOD SPECIMENOrdering Facility: [facility] Address: [address] [place] [address] Performed By: #### 5 7021-8 ####[facility] OMARNAJMALIBrandee [id number] [address] LABORATORYCLIA [id number] [place] [address] [place] Ovalocytes LM Ql (Bld) Few Normal [facility] Comment on above: Order Comment: Speci men Type: BLOOD SPECIMENOrdering Facility: [facility] Address: [address] [place] [address] Performed By: #### 5 7021-8 ####[facility] PINE RIDGEBRIDGET [id number] [address] LABORATORYCLIA [id number] [place] [address] [place] Platelet mean volume (Bld) [Entitic vol] 9.0 fL Normal 9.0-12.7 [facility] Comment on above: Order Comment: Speci men Type: BLOOD SPECIMENOrdering Facility: [facility] Address: [address] [place] [address] Performed By: #### 5 7021-8 ####[facility] RIDGEBRIDGET [id number] [address] LABORATORYCLIA [id number] [place] [address] [place] Platelets (Bld) [#/Vol] 434 10*3/uL High 150-400 [facility] Comment on above: Order Comment: Speci men Type: BLOOD SPECIMENOrdering Facility: [facility] Address: [address] [place] [address] Result Comment: No c lot detected. Performed By: #### 5 7021-8 ####[facility] RIDGEBRIDGET [id number] [place] [address] LABORATORYCLIA [id number] [place] [address] [place] Platelets Estimate (Bld) [#/Vol] Increased Normal [facility] Comment on above: Order Comment: Speci men Type: BLOOD SPECIMENOrdering Facility: [facility] Address: [address] [place] [address] Performed By: #### 5 7021-8 ####[facility]ITALNCLIA [id number] [address] LABORATORYCLIA [id number] [place] [address] [place] RBC (Bld) [#/Vol] 3.52 10*6/uL Low 3.90-5.[address] [facility] Comment on above: Order Comment: Speci men Type: BLOOD SPECIMENOrdering Facility: [facility] Address: [address] [place] [address] Performed By: #### 5 7021-8 ####[facility] GLENBEIGHLIA [id number] [address] LABORATORYCLIA [id number] [place] [address] [place] RED CELL MORPH Reviewed: see result s of individual morphologies Normal [facility] Comment on above: Order Comment: Speci men Type: BLOOD SPECIMENOrdering Facility: [facility] Address: [address] [place] [address] Performed By: #### 5 7021-8 ####[facility]ITALNCLIA [id number] [address] LABORATORYCLIA [id number] [place] [address] [place] WBC (Bld) [#/Vol] 15.33 10*3/uL High 3.70-11.00 [facility] Comment on above: Order Comment: Speci men Type: BLOOD SPECIMENOrdering Facility: [facility] Address: [address] [place] [address] Performed By: #### 5 7021-8 ####[facility] MILLTOWNCLIA [id number] [place], [place] [id number] [place] [address] LABORATORYCLIA [id number] [place], [place] [address] [place] [address] CNOVSPon 01-18-2025 CNOVSP Normal [facility] CNPNon 01-18-2025 CNPN Normal [facility] CNPNon 01-15-2025 CNPN Normal [facility] Culture, Blood (WB)on 2024 CUB Blood cultures x2, f rom two different sites No growth in 5 days. Normal [facility] Comment on above: Performed By: #### M 200.1000 ####[facility] [id number] [place], [address] PET/CT Tumor Base -Thigh Sub son 01-12-2025 PET/CT Tumor Base -Thigh Subs [facility] [address] [place] [address] PET/CT Tumor Base -Thigh Subs MR#: [id number] Acct: [id number] Name: Everette HERBERT Rep #: [id number] : 1960 F 64 From: Lee Murillo PCP: Dr. Hellen Lafleur MD Status: [facility] Study: PET/CT Tumor Base -Thigh Subs Date of Exam: Exam# [id number] Ordering Dr: Hellen Zhu DO ADDENDUM by Dr. Lee Anaya MD on 01/21/25 at 1650 History: Left breast cancer, upper-outer quadrant. Reading Location: [place] [address] 01/21/25 1651 Date cc: Dr. Hellen Zhu DO; Dr. Hellen Lafleur MD * Signed PROCEDURE: PET/CT TUMOR BASE -THIGH SUBS 01/12/2025 REASON FOR EXAM: 64 y/o F with left BREAST cancer TECHNIQUE: Procedure Code: PETPTCTSUB Modality: PT Procedure: PET/CT TUMOR BASE -THIGH SUBS Following the intravenous administration of radionucleotide, image acquisition on a dedicated PET/CT unit was performed at one hour post injection. A preliminary CT study encompassing the Skull base, neck, chest, abdomen, pelvis, and proximal thighs was performed for purposes of attenuation correction and anatomic localization. The proximal thighs were also included. The patient's blood glucose level was 128 mg/dL (allowable range: 50-180 mg/dL). RADIOPHARMACEUTICAL: 13.424 mCi 18F-FDG (Fluorodeoxyglucose F18) IV was injected into he patient. RADIATION DOSE SUMMARY: Effective Dose: Approximately 7 mSv for a standard whole-body PET scan Organ Doses: Varies by organ, with higher doses typically to the bladder, liver, and brain COMPARISON: COMPARISON FROM CT, PET OR OTHER PERTINENT EXAMS: PET-CT of 08/04/2024. FINDINGS: Physiologic uptake: There may be expected [...] There are no significant neck abnormalities. CHEST: Bilateral breast prostheses are again noted. Moderate coronary artery calcification is seen. Chest wall- Overlying the left breast prosthesis is seen areas metabolic activity, significantly improved since the prior study of 08/04/2024. SUV max is now proximally 2.5. The medial right breast area previous abnormal uptake show significant interval diminution. SUV max is approximately 2.8, now. Adjacent surgical clips are also seen. Axilla- There are no significant axillary [...] identified. Masses- There are no pelvic masses. Bilateral pelvic surgical clips are noted. Bones- Severe extensive axial and appendicular osseous metastatic disease is seen. PET/PET/CT Tumor Base -Thigh Subs IMPRESSION: FDG avid- Severe, extensive, axial and appendicular osseous metastatic disease is now seen. Other: Areas of previous increased uptake at the bilateral wrists, anterior to the breast prostheses, show significant interval improvement, bilaterally. Moderate coronary artery calcification noted. Please note the low-dose CT scan was performed to facilitate PET image reconstruction and anatomic localization and does not replace a diagnostic CT. Any diagnostic CT requested and performed at the time of the PET will be reported separately. Reading Location: [address] CC: Dr. Hellen Zhu DO; Dr. Hellen Lafleur MD Architectural Inspector: Signed Normal [facility] Urine Cultureon 01-12-2025 URC Below infection leve l. Mixed Gram Positive Organisms [place] Count <1000 MIXC Mixed contaminants. Submit a new specimen if indicated. Normal [facility] Comment on above: Performed By: #### M 100.678, L400.0001, M100.2200 ####[facility] [address] [facility] [place], [address] CNPNon 01-11-2025 CNPN Normal [facility] 12 Lead EKGon 01-10-2025 12 Lead EKG [facility] Cardiovascular Services [address] [place] [address] 12 Lead EKG 01/10/25 1541 MR#: [id number] Acct: [id number] Name: Everette HERBERT Rep #: [id number] : 1960 64 From: Killian Beltran MD [...] Nonspecific ST abnormality Abnormal ECG Confirmed by KILLIAN BELTRAN MD ([id number]), editor farm journal SOHA PRADO ([id number]) on 01/11/2025 10:40:00 AM Referred By: Confirmed By: KILLIAN BELTRAN MD 01/11/25 1040 Date Killian Beltran MD CC: Dr. Ajay Burnett, DO; Dr. Hellen Lafleur MD Signed Normal [facility] Absolute lymphocyte countOrd ered By: Ajay Burnett on 01-10-2025 Lymphocytes Auto (Unsp spec) [#/Vol] 0.95 10*3/uL 0.83-4.51 [facility] Absolute neutrophil countOrd ered By: Ajay Burnett on 01-10-2025 Neutrophils (Bld) [#/Vol] 22.2 10*3/uL High 2.0-7.7 [facility] Activated partial thrombopla stin time (aPTT) in platelet poor plasma by coagulation aOrdered By: Ajay Burnett on 01-10-2025 aPTT Coag (PPP) [Time] 27.5 s 24.1-36.2 [facility] Anion gap in Serum or Plasma Ordered By: Ajay Burnett on 01-10-2025 Anion gap [Moles/Vol] 11 mmol/L - [facility] Automated lymphocyte count a s percentage of total leukocytesOrdered By: Ajay Burnett on 01-10-2025 Lymphocytes/100 WBC Auto (Unsp spec) 3.5 % Low [facility] BUN/creatinine ratioOrdered By: Ajay Burnett on 01-10-2025 Urea nitrogen/Creatinine [Mass ratio] 9.7 mg/mg Low 01-11 [facility] Basophil percentageOrdered B y: Ajay AlejandroKatina on 01-10-2025 Basophils/100 WBC (Bld) 0.1 % 0-1 [facility] Bilirubin Test strip Ql (U)O rdered By: Ajay CavazosMarie on 01-10-2025 Bilirubin Ql (U) Negative Negative [facility] Bilirubin, totalOrdered By: Ajay KlsirenacoltenMarie on 01-10-2025 Bilirubin [Mass/Vol] 0.19 mg/dL 0.00-1.30 [facility] Blood cultureOrdered By: [facility] DirkDiegoMisty on 01-10-2025 Bacteria identified Cx Nom (Bld) No growth in 5 days. [facility] Bacteria identified Cx Nom (Bld) No growth in 5 days. [facility] CBC W/Diff, Automatedon 12-23 PLT EST ADEQUATE Normal ADEQ [facility] Comment on above: Performed By: #### L 100.0100, L503.6005, L500.4050 #### [facility] Laboratory [address] [place], [address] RED CELL MORPH NORM C+C Normal NORM C C [facility] Comment on above: Performed By: #### L 100.0100, L503.6005, L500.4050 #### [facility] [address] [place], [address] Carbon dioxide, total [Moles /volume] in Central venous bloodOrdered By: Ajay Burnett on 01-10-2025 CO2 [Moles/Vol] 26.5 mmol/L 21.0-32.0 [facility] Chest PA and Lateralon 01-10 Chest PA and Lateral [facility] Imaging Services [address] [place] [address] Chest PA and Lateral MR#: [id number] Acct: [id number] Name: Everette HERBERT Rep #: [id number] : 1960 F 64 From: Rolando Brown DO PCP: Dr. Hellen Lafleur MD Status: REG ER Study: Chest PA and Lateral Date of Exam: 01/10/25 Exam# [id number] Ordering Dr: Ajay Burnett DO PROCEDURE: CHEST [...] Lateral IMPRESSION: No acute process. Reading [facility] CC: Dr. Ajay Burnett DO; Dr. Hellen Lafleur MD Architectural Inspector: Signed Normal [facility] Chloride assayOrdered By: Elicia Burnett on 01-10-2025 Chloride [Moles/Vol] 96 mmol/L Low 98-108 [facility] Comprehensive Metabolic Prof ilon 01-10-2025 Albumin [Mass/Vol] 4.2 g/dL Normal 3.4-4.8 [facility] Comment on above: Performed By: #### L 100.0100, L503.6005, L500.4050 #### [facility] [address] [place], [address] Albumin/Globulin [Mass ratio] 2.1 {ratio} Normal 0.9-2.4 [facility] Comment on above: Performed By: #### L 100.0100, L503.6005, L500.4050 #### [facility] [address] [place], [address] ALK PHOS 179 U/L High 35-104 [facility] Comment on above: Performed By: #### L 100.0100, L503.6005, L500.4050 #### [facility] [address] [place], [address] ALT [Catalytic activity/Vol] 11 U/L Normal <=34 [facility] Comment on above: Performed By: #### L 100.0100, L503.6005, L500.4050 #### [facility] [address] [place], [address] AST [Catalytic activity/Vol] 19 U/L Normal <=31 [facility] Comment on above: Performed By: #### L 100.0100, L503.6005, L500.4050 #### [facility] [address] [place], [address] Bilirubin [Mass/Vol] 0.19 mg/dL Normal 0.00-1.30 [facility] Comment on above: Performed By: #### L 100.0100, L503.6005, L500.4050 #### [facility] [address] [place], [address] BUN/CRE 9.7 RATIO Low 10-20 [facility] Comment on above: Performed By: #### L 100.0100, L503.6005, L500.4050 #### [facility] [address] [place], [address] Calcium [Mass/Vol] 8.9 mg/dL Normal 7.6-11.0 [facility] Comment on above: Performed By: #### L 100.0100, L503.6005, L500.4050 #### [facility] [address] [place], [address] Chloride [Moles/Vol] 96 mmol/L Low 98-108 [facility] Comment on above: Performed By: #### L 100.0100, L503.6005, L500.4050 #### [facility] [address] [place], [address] CO2 [Moles/Vol] 26.5 mmol/L Normal 21.0-32.0 [facility] Comment on above: Performed By: #### L 100.0100, L503.6005, L500.4050 #### [facility] [address] [place], [address] Creatinine [Mass/Vol] 0.71 mg/dL Normal 0.70-1.20 [facility] Comment on above: Performed By: #### L 100.0100, L503.6005, L500.4050 #### [facility] [address] [place], [address] ECRCL 61.10 ml/min Normal 50-250 [facility] Comment on above: Performed By: #### L 100.0100, L503.6005, L500.4050 #### [facility] [address] [place], [address] GAP 11 Normal 5-15 [facility] Comment on above: Performed By: #### L 100.0100, L503.6005, L500.4050 #### [facility] [address] [place], [address] GFR/1.73 sq M.predicted among non-blacks MDRD (S/P/Bld) [Vol rate/Area] 94 mL/min/{1.73_m2} Normal >60 [facility] Comment on above: Result Comment: mL/m in/1.73m2 CKD-EPI Creatinine Equation (2020) Performed By: #### L 100.0100, L503.6005, L500.4050 #### [facility] [address] [place], [address] Globulin (S) [Mass/Vol] 2.0 g/dL Low 2.2-4.2 [facility] Comment on above: Performed By: #### L 100.0100, L503.6005, L500.4050 #### [facility] [address] [place], [address] Glucose [Mass/Vol] 122 mg/dL High 70-99 [facility] Comment on above: Performed By: #### L 100.0100, L503.6005, L500.4050 #### [facility] [address] [place], [address] Potassium [Moles/Vol] 3.4 mmol/L Normal 3.3-5.1 [facility] Comment on above: Performed By: #### L 100.0100, L503.6005, L500.4050 #### [facility] [address] [place], [address] Sodium [Moles/Vol] 133 mmol/L Normal 133-145 [facility] Comment on above: Performed By: #### L 100.0100, L503.6005, L500.4050 #### [facility] [address] [place], [address] T PROT 6.2 g/dL Normal 5.9-8.4 [facility] Comment on above: Performed By: #### L 100.0100, L503.6005, L500.4050 #### [facility] [address] [place], [address] Urea nitrogen [Mass/Vol] 7 mg/dL Normal 4-19 [facility] Comment on above: Performed By: #### L 100.0100, L503.6005, L500.4050 #### [facility] [address] [place], [address] Electrocardiogram reportOrde red By: Killian Beltran on 01-10-2025 EKG study [facility] Cardiovascular Services [address] [place] [address] 12 Lead EKG 01/10/25 1541 MR#: [id number] Acct: [id number] Name: Everette HERBERT Rep #:[id number] : 1960 64 From: Killian Beltran MD Attending Dr: Status: DEP E R Ordering Dr: Ajay Burnett ate: 01/10/25 Location: ED Sex: F C Admitted: Test [...] Abnormal ECG Confirmed by EVANS ANAND, KILLIAN ([id number]), editor farm journal SOHA PRADO ([id number]) on 0:40:00 AM Referred By: Confirmed By: KILLIAN BELTRAN MD 01/11/25 1040 Date _ Killian Beltran MD CC: Dr. Ajay Burnett DO; Dr. Hellen Lafleur MD ~ Signed [facility] Other Phone: Emergency Department Summary on 01-10-2025 Emergency Department Summary [facility] Medical Records Department [address] [place] [address] Emergency Department Summary 01/10/25 MR#: [id number] Acct: [id number] Name: Everette HERBERT Rep #: [id number] : 1960 64 From: Ajay Burnett DO [...] intact Psych: Cooperative, appropriate mood and affect [facility] Medical History (Updated 04/29/24 @ 13:09 by [...] states her (more content not included)... Normal [facility] Eosinophil percentageOrdered By: Ajay Burnett on 01-10-2025 Eosinophils/100 WBC (Bld) 2.9 % 0-5 [facility] Erythrocyte distribution wid th ratioOrdered By: Ajay Burnett on 01-10-2025 Erythrocyte distribution width (RBC) [Ratio] 15.4 % High 11.6-14.6 [facility] Erythrocyte distribution wid th standard deviationOrdered By: Ajay Jay on 01-10-2025 Erythrocyte distribution width (RBC) [Ratio] 52.3 fl High 35.1-43.9 [facility] Erythrocyte morphology asses smentOrdered By: Ajay Burnett on 01-10-2025 RBC morphology finding Nom (Bld) NORM C+C NORMAL NORM C&C [facility] Glomerular filtration rate ( GFR) estimation/1.73 sq m using serum, plasma, or whole bOrdered By: Ajay Burnett on 01-10-2025 GFR/1.73 sq M.predicted among non-blacks MDRD (S/P/Bld) [Vol rate/Area] 94 mL/min/{1.73_m2} >60 [facility] Comment on above: mL/min/1.73m2 CKD-EP I Creatinine Equation (2020) Hematocrit Auto (Bld) [Volum e fraction]Ordered By: Ajay Burnett on 01-10-2025 Hematocrit (Bld) [Volume fraction] 29.0 % Low 37-47 [facility] Hemoglobin measurementOrdere d By: Ajay Burnett on 01-10-2025 Hemoglobin (Bld) [Mass/Vol] 10.0 g/dL Low 12.0-15.0 [facility] Immature granulocytes/100 WB C Auto (Bld)Ordered By: Ajay Burnett on 01-10-2025 Immature granulocytes/100 WBC (Bld) 1.600 % High 0.0-0.9 [facility] Comment on above: IG% - Immature Granu locytes (promyelocytes, myelocytes and metamyelocytes) > 1% indicates that a LEFT SHIFT is Present. Influenza virus A and B and SARS-CoV-2 (COVID-19) and Respiratory syncytial virus RNAOrdered By: Ajay Burnett on 01-10-2025 SARS-CoV-2 (COVID-19) RNA OBI+probe Ql (Unsp spec) [facility] International normalized rat io (INR) calculationOrdered By: Ajay Burnett on 01-10-2025 INR Coag (Bld) [Relative time] 1.0 {INR} [facility] Ketones Test strip Ql (U)Ord ered By: Ajay Burnett on 01-10-2025 Ketones Ql (U) Negative Negative [facility] Laboratory - Chemistry and C hemistry - challengeOrdered By: Ajay Burnett on 01-10-2025 AST [Catalytic activity/Vol] 19 U/L <32 [facility] Lactic Acidon 01-10-2025 Lactate [Moles/Vol] mmol/L Normal 0.0-2.0 [facility] Comment on above: Order Comment: Y Performed By: #### L 100.0100, L503.6005, L500.4050 #### [facility] [address] [facility] [place], [address] Lactic acid measurementOrder ed By: Ajay Burnett on 01-10-2025 Lactate [Moles/Vol] mmol/L 0.0-2.0 [facility] M100.678on 01-10-2025 M100.678 SARS-CoV-2 (COVID 19 ) Negative INFLUENZA A Negative INFLUENZA B Negative RSV PCR Negative Normal [facility] Comment on above: Performed By: #### M 100.678, L400.0001, M100.2200 ####[facility] [address] [facility] [address] [place], [place], [id number] MCV (mean corpuscular volume ) determinationOrdered By: Ajay Burnett on 01-10-2025 MCV (RBC) [Entitic vol] 92.9 fL 81-99 [facility] Mean corpuscular hemoglobin (MCH) determinationOrdered By: Ajay Burnett on 01-10-2025 MCH (RBC) [Entitic mass] 32.1 pg High 27.0-32.0 [facility] Mean corpuscular hemoglobin concentration (MCHC) determinationOrdered By: Ajay Burnett on 01-10-2025 MCHC (RBC) [Mass/Vol] 34.5 g/dL 32-36 [facility] Mean platelet volume determi nationOrdered By: Ajay Burnett on 01-10-2025 Platelet mean volume (Bld) [Entitic vol] 8.9 fL 6.2-12.0 [facility] Microscopic analysis of urin e for red blood cells (RBC)Ordered By: Ajay Burnett on 01-10-2025 Microscopic analysis of urine for red blood cells (RBC) 0 SEEN /hpf 0-5 [facility] Monocyte percentageOrdered B y: Ajay Burnett on 01-10-2025 Monocytes/100 WBC (Bld) 10.8 % High 0-10 [facility] Mucus LM Ql (Urine sed)Order ed By: Ajay Burnett on 01-10-2025 Mucus Ql (Urine sed) 0 SEEN /hpf [facility] Neutrophil percentageOrdered By: Ajay Burnett on 01-10-2025 Neutrophils/100 WBC (Bld) 81.1 % High 47-70 [facility] Nitrite Test strip Ql (U)Ord ered By: Ajay Burnett on 01-10-2025 Nitrite Ql (U) Negative Negative [facility] Nucleated red blood cell per centageOrdered By: Ajay Burnett on 01-10-2025 Nucleated RBC/100 WBC (Bld) [Ratio] 0 % 0-5 [facility] Partial Thromboplast Timeon 01-10-2025 aPTT Coag (Bld) [Time] 27.5 s Normal 24.1-36.2 [facility] Comment on above: Performed By: #### L 3003900, L300.4310 ####[facility] [address] [facility] [place], [address] Platelet countOrdered By: Elicia Burnett on 01-10-2025 Platelets (Bld) [#/Vol] 316 10*3/uL 150-450 [facility] Platelet estimateOrdered By: Ajay Burnett on 01-10-2025 Platelets LM Ql (Bld) ADEQUATE ADEQ [facility] Potassium measurement (mass/ volume)Ordered By: Ajay Burnett on 01-10-2025 Potassium (Unsp spec) [Mass/Vol] 3.4 mmol/L 3.3-5.1 [facility] Protein Test strip Ql (U)Ord ered By: Ajay Burnett on 01-10-2025 Protein Ql (U) Negative Negative [facility] Prothrombin Time w/INRon INR Coag (PPP) [Relative time] 1.0 {INR} Normal [facility] Comment on above: Performed By: #### L 300.3900, L300.4310 #### [facility] [address] [place], [address] PT Coag (PPP) [Time] 13.7 s Normal 11.7-14.9 [facility] Comment on above: Performed By: #### L 300.3900, L300.4310 #### [facility] [address] [place], [address] Prothrombin timeOrdered By: Ajay Burnett on 01-10-2025 PT Coag (PPP) [Time] 13.7 s 11.7-14.9 [facility] RBC Auto (Bld) [#/Vol]Ordere d By: Ajay Burnett on 01-10-2025 RBC (Bld) [#/Vol] 3.12 10*6/uL Low 4.2-5.4 [facility] Serum creatinine measurement (mass/volume)Ordered By: Ajay Burnett on 01-10-2025 Creatinine [Mass/Vol] 0.71 mg/dL 0.70-1.20 [facility] Serum globulin measurementOr dered By: Ajay Burnett on 01-10-2025 Globulin (S) [Mass/Vol] 2.0 g/dL Low 2.2-4.2 [facility] Serum glucose measurement (m ass/volume)Ordered By: Ajay Burnett on 10-19-2025 Glucose [Mass/Vol] 122 mg/dL High 70-99 [facility] Serum or plasma alanine romo otransferase (ALT) measurementOrdered By: Ajay Burnett on 01-10-2025 ALT [Catalytic activity/Vol] 11 U/L <35 [facility] Serum or plasma albumin amparo urement (mass/volume)Ordered By: Ajay Jay on 01-10-2025 Albumin [Mass/Vol] 4.2 g/dL 3.4-4.8 [facility] Serum or plasma albumin/glob ulin mass ratioOrdered By: Ajay Burnett on 01-10-2025 Albumin/Globulin [Mass ratio] 2.1 {ratio} 0.9-2.4 [facility] Serum or plasma alkaline margie sphatase measurementOrdered By: Ajay Burnett on 01-10-2025 ALP [Catalytic activity/Vol] 179 U/L High 35-104 [facility] Serum or plasma calcium amparo urement (mass/volume)Ordered By: Ajay Jay on 01-10-2025 Calcium [Mass/Vol] 8.9 mg/dL 7.6-11.0 [facility] Serum or plasma urea nitroge n measurement (mass/volume)Ordered By: Ajay Burnett on 01-10-2025 Urea nitrogen [Mass/Vol] 7 mg/dL 4-19 [facility] Sodium levelOrdered By: Josh Burnett on 01-10-2025 Sodium [Moles/Vol] 133 mmol/L 133-145 [facility] Squamous epithelial cells de tection in urine sediment by light microscopyOrdered By: Ajay Burnett on 01-10-2025 Epithelial cells.squamous LM Ql (Urine sed) 0 SEEN /hpf 5- [facility] Total proteinOrdered By: Jeffrey Burnett on 01-10-2025 Protein [Mass/Vol] 6.2 g/dL 5.9-8.4 [facility] Urinalysis, Completeon 01-10 BACTERIA 0 SEEN Normal None Seen [facility] Comment on above: Order Comment: CLEAN CATCH Performed By: #### M 100.678, L400.0001, M100.2200 ####[facility] [address] [place], [address] EPI,SQUAMOUS 0 SEEN Normal 5-10 [facility] Comment on above: Order Comment: CLEAN CATCH Performed By: #### M 100.678, L400.0001, M100.2200 ####[facility] [address] [place], [address] Mucus Ql (Urine sed) 0 SEEN Normal [facility] Comment on above: Order Comment: CLEAN CATCH Performed By: #### M 100.678, L400.0001, M100.2200 ####[facility] [address] [place], [address] RBC 0 SEEN Normal 0-5 [facility] Comment on above: Order Comment: CLEAN CATCH Performed By: #### M 100.678, L400.0001, M100.2200 ####[facility] [address] [place], [address] WBC 0 SEEN Normal 0-5 [facility] Comment on above: Order Comment: CLEAN CATCH Performed By: #### M 100.678, L400.0001, M100.2200 ####[facility] [address] [place], [address] Urine clarityOrdered By: Jeffrey Burnett on 01-10-2025 Clarity (U) Clear Clear [facility] Urine color determinationOrd ered By: Ajay Burnett on 01-10-2025 Color (U) Straw Yellow [facility] Urine cultureOrdered By: Jeffrey Burnett on 01-10-2025 Bacteria identified Cx Nom (U) Positive Abnormal [facility] Urine glucose detectionOrder ed By: Ajay Burnett on 01-10-2025 Glucose Ql (U) Normal mg/dl Normal [facility] Urine leukocyte esterase det ection by dipstickOrdered By: Ajay Burnett on 01-10-2025 Leukocyte esterase Test strip Ql (U) Negative Negative [facility] Urine pHOrdered By: Ajay Ambriz on 01-10-2025 pH (U) 7.0 [pH] 5.0 - 8.0 [facility] Urine sediment bacteria coun t by microscopy (number/high power field)Ordered By: Ajay Burnett on 01-10-2025 Bacteria LM.HPF (Urine sed) [#/Area] 0 /[HPF] None Seen [facility] Urine specific gravity measu rementOrdered By: Ajay Burnett on 01-10-2025 Specific gravity (U) [Rel density] 1.005 1.002-1.03 0 [facility] Urine urobilinogen measureme ntOrdered By: Ajay Burnett on 01-10-2025 Urobilinogen Ql (U) Normal mg/dl Normal [facility] White blood cell (WBC) count Ordered By: Ajay Burnett on 01-10-2025 WBC (Bld) [#/Vol] 27.4 10*3/uL High 4.4-11.0 [facility] White blood cell countOrdere d By: Ajay Burnett on 01-10-2025 White blood cell count 0 SEEN /hpf 0-5 [facility] CBC W Auto Differential pane l (Bld)on 01-05-2025 Basophils (Bld) [#/Vol] 0.06 10*3/uL Normal <0.11 [facility] Comment on above: Order Comment: Speci men Type: BLOOD SPECIMENOrdering Facility: [facility] Address: [address] [place] [address] Performed By: #### 5 7021-8 ####[facility] HOSPITALBrandee [id number] [place] [address] [place] Basophils/100 WBC (Bld) 1.1 % Normal [facility] Comment on above: Order Comment: Speci men Type: BLOOD SPECIMENOrdering Facility: [facility] Address: [address] [place] [address] Performed By: #### 5 7021-8 ####[facility] OMARBABSON PARKTEMITOPELIA [id number] [place] [address] [place] Differential cell count method Nom (Bld) Auto Normal [facility] Comment on above: Order Comment: Speci men Type: BLOOD SPECIMENOrdering Facility: [facility] Address: [address] [place] [address] Performed By: #### 5 7021-8 ####[facility] H[facility]ITALA [id number] [place] [address] [place] Eosinophils (Bld) [#/Vol] 1.26 10*3/uL High <0.46 [facility] Comment on above: Order Comment: Speci men Type: BLOOD SPECIMENOrdering Facility: [facility] Address: [address] [place] [address] Performed By: #### 5 7021-8 ####[facility] [id number] [place] [address] [place] Eosinophils/100 WBC (Bld) 22.6 % Normal [facility] Comment on above: Order Comment: Speci men Type: BLOOD SPECIMENOrdering Facility: [facility] Address: [address] [place] [address] Performed By: #### 5 7021-8 ####[facility]EN[facility]HLIA [id number] [place] [address] [place] [place] Erythrocyte distribution width (RBC) [Ratio] 15.4 % High 11.5-15.0 [facility] Comment on above: Order Comment: Speci men Type: BLOOD SPECIMENOrdering Facility: [facility] Address: [address] [place] [address] Performed By: #### 5 7021-8 ####[facility] GLENBEIGHLIBrandee [id number] [place] [address] [place] Hematocrit (Bld) [Volume fraction] 31.7 % Low 36.0-46.0 [facility] Comment on above: Order Comment: Speci men Type: BLOOD SPECIMENOrdering Facility: [facility] Address: [address] [place] [address] Performed By: #### 5 7021-8 ####[facility] GLENBEIGHNATALI [id number] [place] [address] [place] Hemoglobin (Bld) [Mass/Vol] 10.8 g/dL Low 11.5-15.5 [facility] Comment on above: Order Comment: Speci men Type: BLOOD SPECIMENOrdering Facility: [facility] Address: [address] [place] [address] Performed By: #### 5 7021-8 ####[facility] GLENBEIGHNATALI [id number] [place] [address] [place] Immature granulocytes (Bld) [#/Vol] 0.03 10*3/uL Normal <0.10 [facility] Comment on above: Order Comment: Speci men Type: BLOOD SPECIMENOrdering Facility: [facility] Address: [address] [place] [address] Performed By: #### 5 7021-8 ####[facility] GLENBEIGHNATALI [id number] [place] [address] [place] Immature granulocytes/100 WBC (Bld) 0.5 % Normal [facility] Comment on above: Order Comment: Speci men Type: BLOOD SPECIMENOrdering Facility: [facility] Address: [address] [place] [address] Performed By: #### 5 7021-8 ####[facility] GLENBEIGHELICIA [id number] [place] [address] [place] Lymphocytes (Bld) [#/Vol] 0.85 10*3/uL Low 1.00-4.00 [facility] Comment on above: Order Comment: Speci men Type: BLOOD SPECIMENOrdering Facility: [facility] Address: [address] [place] [address] Performed By: #### 5 7021-8 ####[facility] [id number] [place] [address] [place] Lymphocytes/100 WBC (Bld) 15.2 % Normal [facility] Comment on above: Order Comment: Speci men Type: BLOOD SPECIMENOrdering Facility: [facility] Address: [address] [place] [address] Performed By: #### 5 7021-8 ####[facility] [id number] [place] [address] [place] MCH (RBC) [Entitic mass] 31.2 pg Normal 26.0-34.0 [facility] Comment on above: Order Comment: Speci men Type: BLOOD SPECIMENOrdering Facility: [facility] Address: [address] [place] [address] Performed By: #### 5 7021-8 ####[facility] [id number] [place] [address] [place] MCHC (RBC) [Mass/Vol] 34.1 g/dL Normal 30.5-36.0 [facility] Comment on above: Order Comment: Speci men Type: BLOOD SPECIMENOrdering Facility: [facility] Address: [address] [place] [address] Performed By: #### 5 7021-8 ####[facility] [id number] [place] [address] [place] MCV (RBC) [Entitic vol] 91.6 fL Normal 80.0-100.0 [facility] Comment on above: Order Comment: Speci men Type: BLOOD SPECIMENOrdering Facility: [facility] Address: [address] [place] [address] Performed By: #### 5 7021-8 ####[facility] MILLTOWNCLIA [id number] [place] [address] [place] Monocytes (Bld) [#/Vol] 0.43 10*3/uL Normal <0.87 [facility] Comment on above: Order Comment: Speci men Type: BLOOD SPECIMENOrdering Facility: [facility] Address: [address] [place] [address] Performed By: #### 5 7021-8 ####[facility] MILLTOWNCLIA [id number] [place] [address] [place] Monocytes/100 WBC (Bld) 7.7 % Normal [facility] Comment on above: Order Comment: Speci men Type: BLOOD SPECIMENOrdering Facility: [facility] Address: [address] [place] [address] Performed By: #### 5 7021-8 ####[facility] PINE RIDGEWNCLIA [id number] [place] [address] [place] Neutrophils (Bld) [#/Vol] 2.95 10*3/uL Normal 1.45-7.50 [facility] Comment on above: Order Comment: Speci men Type: BLOOD SPECIMENOrdering Facility: [facility] Address: [address] [place] [address] Performed By: #### 5 7021-8 ####[facility] MILLTOWNCLIA [id number] [place] [address] [place] Neutrophils/100 WBC (Bld) 52.9 % Normal [facility] Comment on above: Order Comment: Speci men Type: BLOOD SPECIMENOrdering Facility: [facility] Address: [address] [place] [address] Performed By: #### 5 7021-8 ####[facility] MILLTOWNCLIA [id number] [place] [address] [place] Nucleated RBC (Bld) [#/Vol] 10*3/uL Normal <0.01 [facility] Comment on above: Order Comment: Speci men Type: BLOOD SPECIMENOrdering Facility: [facility] Address: [address] [place] [address] Performed By: #### 5 7021-8 ####[facility] HOSPITALTEMITOPEBrandee [id number] [place] [address] [place] Nucleated RBC/100 WBC (Bld) [Ratio] 0.0 /100 WBC Normal [facility] Comment on above: Order Comment: Speci men Type: BLOOD SPECIMENOrdering Facility: [facility] Address: [address] [place] [address] Performed By: #### 5 7021-8 ####[facility] HOSPITALNCNATALI [id number] [place] [address] [place] Platelet mean volume (Bld) [Entitic vol] 9.2 fL Normal 9.0-12.7 [facility] Comment on above: Order Comment: Speci men Type: BLOOD SPECIMENOrdering Facility: [facility] Address: [address] [place] [address] Performed By: #### 5 7021-8 ####[facility] HOSPITALNANO [id number] [place] [address] [place] Platelets (Bld) [#/Vol] 334 10*3/uL Normal 150-400 [facility] Comment on above: Order Comment: Speci men Type: BLOOD SPECIMENOrdering Facility: [facility] Address: [address] [place] [address] Performed By: #### 5 7021-8 ####[facility] B[facility] HOSPITALNCLIA [id number] [place] [address] [place] RBC (Bld) [#/Vol] 3.46 10*6/uL Low 3.90-5.[address] [facility] Comment on above: Order Comment: Speci men Type: BLOOD SPECIMENOrdering Facility: [facility] Address: [address] [place] [address] Performed By: #### 5 7021-8 ####[facility] B[facility] HOSPITALNCA [id number] [place] [address] [place] WBC (Bld) [#/Vol] 5.58 10*3/uL Normal 3.70-11.[address] [facility] Comment on above: Order Comment: Speci men Type: BLOOD SPECIMENOrdering Facility: [facility] Address: [address] [place] [address] Performed By: #### 5 7021-8 ####[facility] HOSPITALNCLAKEVIEW HOSPITAL [id number] [place] [address] [place] Comprehensive metabolic 2000 panelon 01-05-2025 Albumin [Mass/Vol] 4.5 g/dL Normal 3.9-4.9 [facility] Comment on above: Order Comment: Speci men Type: BLOOD SPECIMENOrdering Facility: [facility] Address: [address] [place] [address] Performed By: #### 2 4323-8 ####[facility] HOSPITALNCLIA [id number] [place] [address] [place] ALP [Catalytic activity/Vol] 107 U/L Normal 34-123 [facility] Comment on above: Order Comment: Speci men Type: BLOOD SPECIMENOrdering Facility: [facility] Address: [address] [place] [address] Performed By: #### 2 4323-8 ####[facility] HOSPITALNCLIA [id number] [place] [address] [place] ALT [Catalytic activity/Vol] 11 U/L Normal 7-38 [facility] Comment on above: Order Comment: Speci men Type: BLOOD SPECIMENOrdering Facility: [facility] Address: [address] [place] [address] Performed By: #### 2 4323-8 ####[facility] MILLTOWNCLIA [id number] [place] [address] [place] Anion gap [Moles/Vol] 12 mmol/L Normal 8-15 [facility] Comment on above: Order Comment: Speci men Type: BLOOD SPECIMENOrdering Facility: [facility] Address: [address] [place] [address] Performed By: #### 2 4323-8 ####[facility] MILLTOWNCLIA [id number] [place] [address] [place] AST [Catalytic activity/Vol] 16 U/L Normal 13-35 [facility] Comment on above: Order Comment: Speci men Type: BLOOD SPECIMENOrdering Facility: [facility] Address: [address] [place] [address] Performed By: #### 2 4323-8 ####[facility] MILLTOWNCLIA [id number] [place] [address] [place] Bilirubin [Mass/Vol] 0.2 mg/dL Normal 0.2-1.3 [facility] Comment on above: Order Comment: Speci men Type: BLOOD SPECIMENOrdering Facility: [facility] Address: [address] [place] [address] Performed By: #### 2 4323-8 ####[facility] MILLTOWNCLIA [id number] [place] [address] [place] Calcium [Mass/Vol] 9.7 mg/dL Normal 8.5-10.2 [facility] Comment on above: Order Comment: Speci men Type: BLOOD SPECIMENOrdering Facility: [facility] Address: [address] [place] [address] Performed By: #### 2 4323-8 ####[facility] SYSTEMLI [id number] [place] [address] [place] Chloride [Moles/Vol] 98 mmol/L Normal 98-107 [facility] Comment on above: Order Comment: Speci men Type: BLOOD SPECIMENOrdering Facility: [facility] Address: [address] [place] [address] Performed By: #### 2 4323-8 ####[facility] [id number] [place] [address] [place] CO2 [Moles/Vol] 26 mmol/L Normal 22-30 [facility] Comment on above: Order Comment: Speci men Type: BLOOD SPECIMENOrdering Facility: [facility] Address: [address] [place] [address] Performed By: #### 2 4323-8 ####[facility] [id number] [place] [address] [place] Creatinine [Mass/Vol] 0.65 mg/dL Normal 0.58-0.96 [facility] Comment on above: Order Comment: Speci men Type: BLOOD SPECIMENOrdering Facility: [facility] Address: [address] [place] [address] Performed By: #### 2 4323-8 ####[facility] GLENBEIGHLI [id number] [place] [address] [place] eGFRcr SerPlBld CKD-EPI 2020 98 mL/min/1.73m??? Normal >=60 [facility] Comment on above: Order Comment: Speci men Type: BLOOD SPECIMENOrdering Facility: [facility] Address: [address] [place] [address] Result Comment: Alayna mated Glomerular Filtration Rate [...] actual GFR. Performed By: #### 2 4323-8 ####[facility] HOSPITALNCLAKEVIEW HOSPITAL [id number] [place] [address] [place] Glucose [Mass/Vol] 95 mg/dL Normal 74-99 [facility] Comment on above: Order Comment: [place] villarreal Type: BLOOD SPECIMENOrdering Facility: [facility] Address: [address] [place] [address] Result Comment: The [place] Diabetes Association (ADA) provides guidance for cutoff [...] Standards of Medical Care in Diabetes 2016, [place] Diabetes Association. Diabetes Care. 2016.39(Suppl 1). Performed By: #### 2 4323-8 ####[facility] HOSPITALNCA [id number] [place] [address] [place] Potassium [Moles/Vol] 3.6 mmol/L Low 3.7-5.1 [facility] Comment on above: Order Comment: [place] villarreal Type: BLOOD SPECIMENOrdering Facility: [facility] Address: [address] [place] [address] Performed By: #### 2 4323-8 ####[facility] [id number] [place] [address] [place] Protein [Mass/Vol] 6.8 g/dL Normal 6.3-8.0 [facility] Comment on above: Order Comment: [place] villarreal Type: BLOOD SPECIMENOrdering Facility: [facility] Address: [address] [place] [address] Performed By: #### 2 4323-8 ####[facility] HOSPITALNCLIA [id number] [place] [address] [place] Sodium [Moles/Vol] 136 mmol/L Normal 136-144 [facility] Comment on above: Order Comment: Speci men Type: BLOOD SPECIMENOrdering Facility: [facility] Address: [address] [place] [address] Performed By: #### 2 4323-8 ####[facility] HOSPITALNCLI [id number] [place] [address] [place] Urea nitrogen [Mass/Vol] 13 mg/dL Normal 7-21 [facility] Comment on above: Order Comment: Speci men Type: BLOOD SPECIMENOrdering Facility: [facility] Address: [address] [place] [address] Performed By: #### 2 4323-8 ####[facility] HOSPITALNCLIA [id number] [place] [address] [place] CNOVon 12-31-2024 CNOV Normal [facility] CBC W Auto Differential pane l (Bld)on 12-28-2024 Basophils (Bld) [#/Vol] 0.09 10*3/uL Normal <0.11 [facility] Comment on above: Order Comment: Speci men Type: BLOOD SPECIMENOrdering Facility: [facility] Address: [address] [place] [address] Performed By: #### 5 7021-8 ####[facility] HOSPITALA [id number] [place] [address] [place] Basophils/100 WBC (Bld) 0.6 % Normal [facility] Comment on above: Order Comment: Speci men Type: BLOOD SPECIMENOrdering Facility: [facility] Address: [address] [place] [address] Performed By: #### 5 7021-8 ####[facility] MILLWNCLIA [id number] [place] [address] [place] Differential cell count method Nom (Bld) Auto Normal [facility] Comment on above: Order Comment: Speci men Type: BLOOD SPECIMENOrdering Facility: [facility] Address: [address] [place] [address] Performed By: #### 5 7021-8 ####[facility] HOSPITALTEMITOPELIA [id number] [place] [address] [place] Eosinophils (Bld) [#/Vol] 1.07 10*3/uL High <0.46 [facility] Comment on above: Order Comment: Speci men Type: BLOOD SPECIMENOrdering Facility: [facility] Address: [address] [place] [address] Performed By: #### 5 7021-8 ####[facility] HOSPITALA [id number] [place] [address] [place] Eosinophils/100 WBC (Bld) 7.6 % Normal [facility] Comment on above: Order Comment: Speci men Type: BLOOD SPECIMENOrdering Facility: [facility] Address: [address] [place] [address] Performed By: #### 5 7021-8 ####[facility] HOSPITALTEMITOPELIA [id number] [place] [address] [place] Erythrocyte distribution width (RBC) [Ratio] 16.3 % High 11.5-15.0 [facility] Comment on above: Order Comment: Speci men Type: BLOOD SPECIMENOrdering Facility: [facility] Address: [address] [place] [address] Performed By: #### 5 7021-8 ####[facility] HOSPITALNCLIA [id number] [place] [address] [place] Hematocrit (Bld) [Volume fraction] 31.2 % Low 36.0-46.0 [facility] Comment on above: Order Comment: Speci men Type: BLOOD SPECIMENOrdering Facility: [facility] Address: [address] [place] [address] Performed By: #### 5 7021-8 ####[facility]PITALNCLAKEVIEW HOSPITAL [id number] [place] [address] [place] Hemoglobin (Bld) [Mass/Vol] 10.7 g/dL Low 11.5-15.5 [facility] Comment on above: Order Comment: Speci men Type: BLOOD SPECIMENOrdering Facility: [facility] Address: [address] [place] [address] Performed By: #### 5 7021-8 ####[facility]ITALNCLAKEVIEW HOSPITAL [id number] [place] [address] [place] Immature granulocytes (Bld) [#/Vol] 0.08 10*3/uL Normal <0.10 [facility] Comment on above: Order Comment: Speci men Type: BLOOD SPECIMENOrdering Facility: [facility] Address: [address] [place] [address] Performed By: #### 5 7021-8 ####[facility] HOSPITALNCLIA [id number] [place] [address] [place] Immature granulocytes/100 WBC (Bld) 0.6 % Normal [facility] Comment on above: Order Comment: Speci men Type: BLOOD SPECIMENOrdering Facility: [facility] Address: [address] [place] [address] Performed By: #### 5 7021-8 ####[facility] HOSPITALNCLIA [id number] [place] [address] [place] Lymphocytes (Bld) [#/Vol] 0.99 10*3/uL Low 1.00-4.00 [facility] Comment on above: Order Comment: Speci men Type: BLOOD SPECIMENOrdering Facility: [facility] Address: [address] [place] [address] Performed By: #### 5 7021-8 ####[facility] OMARBRIDGET [id number] [place] [address] [place] Lymphocytes/100 WBC (Bld) 7.0 % Normal [facility] Comment on above: Order Comment: Speci men Type: BLOOD SPECIMENOrdering Facility: [facility] Address: [address] [place] [address] Performed By: #### 5 7021-8 ####[facility] HOSPITALNCNATALI [id number] [place] [address] [place] MCH (RBC) [Entitic mass] 31.5 pg Normal 26.0-34.0 [facility] Comment on above: Order Comment: Speci men Type: BLOOD SPECIMENOrdering Facility: [facility] Address: [address] [place] [address] Performed By: #### 5 7021-8 ####[facility] HOSPITALNCNATALI [id number] [place] [address] [place] MCHC (RBC) [Mass/Vol] 34.3 g/dL Normal 30.5-36.0 [facility] Comment on above: Order Comment: Speci men Type: BLOOD SPECIMENOrdering Facility: [facility] Address: [address] [place] [address] Performed By: #### 5 7021-8 ####[facility] HOSPITALNCLIBrandee [id number] [place] [address] [place] MCV (RBC) [Entitic vol] 91.8 fL Normal 80.0-100.0 [facility] Comment on above: Order Comment: Speci men Type: BLOOD SPECIMENOrdering Facility: [facility] Address: [address] [place] [address] Performed By: #### 5 7021-8 ####[facility] MILLWNCLIA [id number] [place] [address] [place] Monocytes (Bld) [#/Vol] 0.63 10*3/uL Normal <0.87 [facility] Comment on above: Order Comment: Speci men Type: BLOOD SPECIMENOrdering Facility: [facility] Address: [address] [place] [address] Performed By: #### 5 7021-8 ####[facility] GLENBEIGHLIA [id number] [place] [address] [place] Monocytes/100 WBC (Bld) 4.4 % Normal [facility] Comment on above: Order Comment: Speci men Type: BLOOD SPECIMENOrdering Facility: [facility] Address: [address] [place] [address] Performed By: #### 5 7021-8 ####[facility] GLENBEIGHLIA [id number] [place] [address] [place] Neutrophils (Bld) [#/Vol] 11.31 10*3/uL High 1.45-7.50 [facility] Comment on above: Order Comment: Speci men Type: BLOOD SPECIMENOrdering Facility: [facility] Address: [address] [place] [address] Performed By: #### 5 7021-8 ####[facility] GLENBEIGHLIA [id number] [place] [address] [place] Neutrophils/100 WBC (Bld) 79.8 % Normal [facility] Comment on above: Order Comment: Speci men Type: BLOOD SPECIMENOrdering Facility: [facility] Address: [address] [place] [address] Performed By: #### 5 7021-8 ####[facility] HOSPITALNCLIA [id number] [place] [address] [place] Nucleated RBC (Bld) [#/Vol] 10*3/uL Normal <0.01 [facility] Comment on above: Order Comment: Speci men Type: BLOOD SPECIMENOrdering Facility: [facility] Address: [address] [place] [address] Performed By: #### 5 7021-8 ####[facility] HOSPITALNCA [id number] [place] [address] [place] Nucleated RBC/100 WBC (Bld) [Ratio] 0.0 /100 WBC Normal [facility] Comment on above: Order Comment: Speci men Type: BLOOD SPECIMENOrdering Facility: [facility] Address: [address] [place] [address] Performed By: #### 5 7021-8 ####[facility] [id number] [place] [address] [place] Platelet mean volume (Bld) [Entitic vol] 8.7 fL Low 9.0-12.7 [facility] Comment on above: Order Comment: Speci men Type: BLOOD SPECIMENOrdering Facility: [facility] Address: [address] [place] [address] Performed By: #### 5 7021-8 ####[facility] [id number] [place] [address] [place] Platelets (Bld) [#/Vol] 257 10*3/uL Normal 150-400 [facility] Comment on above: Order Comment: Speci men Type: BLOOD SPECIMENOrdering Facility: [facility] Address: [address] [place] [address] Performed By: #### 5 7021-8 ####[facility] [id number] [place] [address] [place] RBC (Bld) [#/Vol] 3.40 10*6/uL Low 3.90-5.[address] [facility] Comment on above: Order Comment: Speci men Type: BLOOD SPECIMENOrdering Facility: [facility] Address: [address] [place] [address] Performed By: #### 5 7021-8 ####[facility] VUNCLIA [id number] [place] [address] [place] WBC (Bld) [#/Vol] 14.17 10*3/uL High 3.70-11.00 [facility] Comment on above: Order Comment: Speci men Type: BLOOD SPECIMENOrdering Facility: [facility] Address: [address] [place] [address] Performed By: #### 5 7021-8 ####[facility]ITAL[facility]CL[facility] [id number] [place] [address] [place] CNOVSPon 12-28-2024 CNOVSP Normal [facility] CNPNon 12-28-2024 CNPN Normal [facility] Comprehensive metabolic 2000 panelon 12-28-2024 Albumin [Mass/Vol] 4.3 g/dL Normal 3.9-4.9 [facility] Comment on above: Order Comment: Speci men Type: BLOOD SPECIMENOrdering Facility: [facility] Address: [address] [place] [address] Performed By: #### 2 4323-8 ####[facility] HOSPITALNCLIA [id number] [place] [address] [place] ALP [Catalytic activity/Vol] 141 U/L High 34-123 [facility] Comment on above: Order Comment: Speci men Type: BLOOD SPECIMENOrdering Facility: [facility] Address: [address] [place] [address] Performed By: #### 2 4323-8 ####[facility] P[facility] RIDGEWNCLIA [id number] [place] [address] [place] ALT [Catalytic activity/Vol] 8 U/L Normal 7-38 [facility] Comment on above: Order Comment: Speci men Type: BLOOD SPECIMENOrdering Facility: [facility] Address: [address] [place] [address] Performed By: #### 2 4323-8 ####[facility] GALINA MILLTOWNCLIA [id number] [place] [address] [place] Anion gap [Moles/Vol] 11 mmol/L Normal 8-15 [facility] Comment on above: Order Comment: Speci men Type: BLOOD SPECIMENOrdering Facility: [facility] Address: [address] [place] [address] Performed By: #### 2 4323-8 ####[facility] MILLWNCLIA [id number] [place] [address] [place] AST [Catalytic activity/Vol] 14 U/L Normal 13-35 [facility] Comment on above: Order Comment: Speci men Type: BLOOD SPECIMENOrdering Facility: [facility] Address: [address] [place] [address] Performed By: #### 2 4323-8 ####[facility] GALINAMERCY HOS[facility] – OKLAHOMA CITYLIA [id number] [place] [address] [place] Bilirubin [Mass/Vol] 0.2 mg/dL Normal 0.2-1.3 [facility] Comment on above: Order Comment: Speci men Type: BLOOD SPECIMENOrdering Facility: [facility] Address: [address] [place] [address] Performed By: #### 2 4323-8 ####[facility] GALINA MILLTOWNCLIA [id number] [place] [address] [place] Calcium [Mass/Vol] 9.2 mg/dL Normal 8.5-10.2 [facility] Comment on above: Order Comment: Speci men Type: BLOOD SPECIMENOrdering Facility: [facility] Address: [address] [place] [address] Performed By: #### 2 4323-8 ####[facility] MILLTOWNCLIA [id number] [place] [address] [place] Chloride [Moles/Vol] 98 mmol/L Normal 98-107 [facility] Comment on above: Order Comment: Speci men Type: BLOOD SPECIMENOrdering Facility: [facility] Address: [address] [place] [address] Performed By: #### 2 4323-8 ####[facility] P[facility] RIDGEWNCLIA [id number] [place] [address] [place] CO2 [Moles/Vol] 25 mmol/L Normal 22-30 [facility] Comment on above: Order Comment: Speci men Type: BLOOD SPECIMENOrdering Facility: [facility] Address: [address] [place] [address] Performed By: #### 2 4323-8 ####[facility] HOSPITALA [id number] [place] [address] [place] Creatinine [Mass/Vol] 0.76 mg/dL Normal 0.58-0.96 [facility] Comment on above: Order Comment: Speci men Type: BLOOD SPECIMENOrdering Facility: [facility] Address: [address] [place] [address] Performed By: #### 2 4323-8 ####[facility] HOSPITALNCLIA [id number] [place] [address] [place] eGFRcr SerPlBld CKD-EPI 2020 87 mL/min/1.73m??? Normal >=60 [facility] Comment on above: Order Comment: Speci men Type: BLOOD SPECIMENOrdering Facility: [facility] Address: [address] [place] [address] Result Comment: Alayna mated Glomerular Filtration Rate [...] actual GFR. Performed By: #### 2 4323-8 ####[facility] GALINA DORAWNCLIA [id number] [place] [address] [place] Glucose [Mass/Vol] 88 mg/dL Normal 74-99 [facility] Comment on above: Order Comment: [place] villarreal Type: BLOOD SPECIMENOrdering Facility: [facility] Address: [address] [place] [address] Result Comment: The [place] Diabetes Association (ADA) provides guidance for cutoff [...] Standards of Medical Care in Diabetes 2016, [place] Diabetes Association. Diabetes Care. 2016.39(Suppl 1). Performed By: #### 2 4323-8 ####[facility] OMARWNCLIA [id number] [place] [address] [place] Potassium [Moles/Vol] 4.0 mmol/L Normal 3.7-5.1 [facility] Comment on above: Order Comment: [place] villarreal Type: BLOOD SPECIMENOrdering Facility: [facility] Address: [address] [place] [address] Performed By: #### 2 4323-8 ####[facility] DORAWNCLIA [id number] [place] [address] [place] Protein [Mass/Vol] 6.6 g/dL Normal 6.3-8.0 [facility] Comment on above: Order Comment: Speci men Type: BLOOD SPECIMENOrdering Facility: [facility] Address: [address] [place] [address] Performed By: #### 2 4323-8 ####[facility] OMARPkNCNATALI [id number] [place] [address] [place] Sodium [Moles/Vol] 134 mmol/L Low 136-144 [facility] Comment on above: Order Comment: Speci men Type: BLOOD SPECIMENOrdering Facility: [facility] Address: [address] [place] [address] Performed By: #### 2 4323-8 ####[facility] HOSPITALTEMITOPELAKEVIEW HOSPITAL [id number] [place] [address] [place] Urea nitrogen [Mass/Vol] 13 mg/dL Normal 7-21 [facility] Comment on above: Order Comment: Speci men Type: BLOOD SPECIMENOrdering Facility: [facility] Address: [address] [place] [address] Performed By: #### 2 4323-8 ####[facility] HOSPITALNCLIA [id number] [place] [address] [place] CBC W Auto Differential pane l (Bld)on 12-15-2024 Basophils (Bld) [#/Vol] 0.06 10*3/uL Normal <0.11 [facility] Comment on above: Order Comment: Speci men Type: BLOOD SPECIMENOrdering Facility: [facility] Address: [address] [place] [address] Performed By: #### 5 7021-8 ####[facility] HOSPITALTEMITOPELIBrandee [id number] [place] [address] [place] Basophils/100 WBC (Bld) 1.0 % Normal [facility] Comment on above: Order Comment: Speci men Type: BLOOD SPECIMENOrdering Facility: [facility] Address: [address] [place] [address] Performed By: #### 5 7021-8 ####[facility] MILLBABSON PARKNCLIA [id number] [place] [address] [place] Differential cell count method Nom (Bld) Auto Normal [facility] Comment on above: Order Comment: Speci men Type: BLOOD SPECIMENOrdering Facility: [facility] Address: [address] [place] [address] Performed By: #### 5 7021-8 ####[facility] HOSPITALTEMITOPELIA [id number] [place] [address] [place] Eosinophils (Bld) [#/Vol] 0.40 10*3/uL Normal <0.46 [facility] Comment on above: Order Comment: Speci men Type: BLOOD SPECIMENOrdering Facility: [facility] Address: [address] [place] [address] Performed By: #### 5 7021-8 ####[facility]IMMEE [id number] [place] [address] [place] Eosinophils/100 WBC (Bld) 6.8 % Normal [facility] Comment on above: Order Comment: Speci men Type: BLOOD SPECIMENOrdering Facility: [facility] Address: [address] [place] [address] Performed By: #### 5 7021-8 ####[facility] HOSPITALTEMITOPELIA [id number] [place] [address] [place] Erythrocyte distribution width (RBC) [Ratio] 16.3 % High 11.5-15.0 [facility] Comment on above: Order Comment: Speci men Type: BLOOD SPECIMENOrdering Facility: [facility] Address: [address] [place] [address] Performed By: #### 5 7021-8 ####[facility] HOSPITALNCLIA [id number] [place] [address] [place] Hematocrit (Bld) [Volume fraction] 31.7 % Low 36.0-46.0 [facility] Comment on above: Order Comment: Speci men Type: BLOOD SPECIMENOrdering Facility: [facility] Address: [address] [place] [address] Performed By: #### 5 7021-8 ####[facility] HOSPITALNCLAKEVIEW HOSPITAL [id number] [place] [address] [place] Hemoglobin (Bld) [Mass/Vol] 10.9 g/dL Low 11.5-15.5 [facility] Comment on above: Order Comment: Speci men Type: BLOOD SPECIMENOrdering Facility: [facility] Address: [address] [place] [address] Performed By: #### 5 7021-8 ####[facility] HOSPITALNCLI [id number] [place] [address] [place] Immature granulocytes (Bld) [#/Vol] 0.03 10*3/uL Normal <0.10 [facility] Comment on above: Order Comment: Speci men Type: BLOOD SPECIMENOrdering Facility: [facility] Address: [address] [place] [address] Performed By: #### 5 7021-8 ####[facility] HOSPITALNCLIA [id number] [place] [address] [place] Immature granulocytes/100 WBC (Bld) 0.5 % Normal [facility] Comment on above: Order Comment: Speci men Type: BLOOD SPECIMENOrdering Facility: [facility] Address: [address] [place] [address] Performed By: #### 5 7021-8 ####[facility] HOSPITALNCLIA [id number] [place] [address] [place] Lymphocytes (Bld) [#/Vol] 0.81 10*3/uL Low 1.00-4.00 [facility] Comment on above: Order Comment: Speci men Type: BLOOD SPECIMENOrdering Facility: [facility] Address: [address] [place] [address] Performed By: #### 5 7021-8 ####[facility] OMARBRIDGET [id number] [place] [address] [place] Lymphocytes/100 WBC (Bld) 13.8 % Normal [facility] Comment on above: Order Comment: Speci men Type: BLOOD SPECIMENOrdering Facility: [facility] Address: [address] [place] [address] Performed By: #### 5 7021-8 ####[facility] HOSPITALNCNATALI [id number] [place] [address] [place] MCH (RBC) [Entitic mass] 31.4 pg Normal 26.0-34.0 [facility] Comment on above: Order Comment: Speci men Type: BLOOD SPECIMENOrdering Facility: [facility] Address: [address] [place] [address] Performed By: #### 5 7021-8 ####[facility] HOSPITALNCNATALI [id number] [place] [address] [place] MCHC (RBC) [Mass/Vol] 34.4 g/dL Normal 30.5-36.0 [facility] Comment on above: Order Comment: Speci men Type: BLOOD SPECIMENOrdering Facility: [facility] Address: [address] [place] [address] Performed By: #### 5 7021-8 ####[facility] HOSPITALNCLIBrandee [id number] [place] [address] [place] MCV (RBC) [Entitic vol] 91.4 fL Normal 80.0-100.0 [facility] Comment on above: Order Comment: Speci men Type: BLOOD SPECIMENOrdering Facility: [facility] Address: [address] [place] [address] Performed By: #### 5 7021-8 ####[facility] MILLWNCLIA [id number] [place] [address] [place] Monocytes (Bld) [#/Vol] 0.53 10*3/uL Normal <0.87 [facility] Comment on above: Order Comment: Speci men Type: BLOOD SPECIMENOrdering Facility: [facility] Address: [address] [place] [address] Performed By: #### 5 7021-8 ####[facility] GLENBEIGHLIA [id number] [place] [address] [place] Monocytes/100 WBC (Bld) 9.0 % Normal [facility] Comment on above: Order Comment: Speci men Type: BLOOD SPECIMENOrdering Facility: [facility] Address: [address] [place] [address] Performed By: #### 5 7021-8 ####[facility] GLENBEIGHLIA [id number] [place] [address] [place] Neutrophils (Bld) [#/Vol] 4.03 10*3/uL Normal 1.45-7.50 [facility] Comment on above: Order Comment: Speci men Type: BLOOD SPECIMENOrdering Facility: [facility] Address: [address] [place] [address] Performed By: #### 5 7021-8 ####[facility] GLENBEIGHLIA [id number] [place] [address] [place] Neutrophils/100 WBC (Bld) 68.9 % Normal [facility] Comment on above: Order Comment: Speci men Type: BLOOD SPECIMENOrdering Facility: [facility] Address: [address] [place] [address] Performed By: #### 5 7021-8 ####[facility] GLENBEIGHLIA [id number] [place] [address] [place] Nucleated RBC (Bld) [#/Vol] 10*3/uL Normal <0.01 [facility] Comment on above: Order Comment: Speci men Type: BLOOD SPECIMENOrdering Facility: [facility] Address: [address] [place] [address] Performed By: #### 5 7021-8 ####[facility]IM[facility]E [id number] [place] [address] [place] Nucleated RBC/100 WBC (Bld) [Ratio] 0.0 /100 WBC Normal [facility] Comment on above: Order Comment: Speci men Type: BLOOD SPECIMENOrdering Facility: [facility] Address: [address] [place] [address] Performed By: #### 5 7021-8 ####[facility]E [id number] [place] [address] [place] Platelet mean volume (Bld) [Entitic vol] 8.7 fL Low 9.0-12.7 [facility] Comment on above: Order Comment: Speci men Type: BLOOD SPECIMENOrdering Facility: [facility] Address: [address] [place] [address] Performed By: #### 5 7021-8 ####[facility] [id number] [place] [address] [place] Platelets (Bld) [#/Vol] 390 10*3/uL Normal 150-400 [facility] Comment on above: Order Comment: Speci men Type: BLOOD SPECIMENOrdering Facility: [facility] Address: [address] [place] [address] Performed By: #### 5 7021-8 ####[facility] HOSPITALNCLAKEVIEW HOSPITAL [id number] [place] [address] [place] RBC (Bld) [#/Vol] 3.47 10*6/uL Low 3.90-5.[address] [facility] Comment on above: Order Comment: Speci men Type: BLOOD SPECIMENOrdering Facility: [facility] Address: [address] [place] [address] Performed By: #### 5 7021-8 ####[facility] HOSPITALNANO [id number] [place] [address] [place] WBC (Bld) [#/Vol] 5.86 10*3/uL Normal 3.70-11.[address] [facility] Comment on above: Order Comment: Speci men Type: BLOOD SPECIMENOrdering Facility: [facility] Address: [address] [place] [address] Performed By: #### 5 7021-8 ####[facility]PITALTEMITOPELAKEVIEW HOSPITAL [id number] [place] [address] [place] CBC W Auto Differential pane l (Bld)on 12-08-2024 Basophils (Bld) [#/Vol] 0.10 10*3/uL Normal <0.11 [facility] Comment on above: Order Comment: Speci men Type: BLOOD SPECIMENOrdering Facility: [facility] Address: [address] [place] [address] Performed By: #### 5 7021-8 ####[facility] [id number] [place] [address] [place] Basophils/100 WBC (Bld) 1.3 % Normal [facility] Comment on above: Order Comment: Speci men Type: BLOOD SPECIMENOrdering Facility: [facility] Address: [address] [place] [address] Performed By: #### 5 7021-8 ####[facility] [id number] [place] [address] [place] Differential cell count method Nom (Bld) Auto Normal [facility] Comment on above: Order Comment: Speci men Type: BLOOD SPECIMENOrdering Facility: [facility] Address: [address] [place], [place] [address] Performed By: #### 5 7021-8 ####[facility] MILLWNCLIA [id number] [place] [address] [place] Eosinophils (Bld) [#/Vol] 0.34 10*3/uL Normal <0.46 [facility] Comment on above: Order Comment: Speci men Type: BLOOD SPECIMENOrdering Facility: [facility] Address: [address] [place] [address] Performed By: #### 5 7021-8 ####[facility]OSPITALNCLIA [id number] [place] [address] [place] Eosinophils/100 WBC (Bld) 4.4 % Normal [facility] Comment on above: Order Comment: Speci men Type: BLOOD SPECIMENOrdering Facility: [facility] Address: [address] [place] [address] Performed By: #### 5 7021-8 ####[facility] GLENBEIGHLIA [id number] [place] [address] [place] Erythrocyte distribution width (RBC) [Ratio] 17.2 % High 11.5-15.0 [facility] Comment on above: Order Comment: Speci men Type: BLOOD SPECIMENOrdering Facility: [facility] Address: [address] [place] [address] Performed By: #### 5 7021-8 ####[facility] HOSPITALNCLIA [id number] [place] [address] [place] Hematocrit (Bld) [Volume fraction] 33.9 % Low 36.0-46.0 [facility] Comment on above: Order Comment: Speci men Type: BLOOD SPECIMENOrdering Facility: [facility] Address: [address] [place] [address] Performed By: #### 5 7021-8 ####[facility] HOSPITALNCLIA [id number] [place] [address] [place] Hemoglobin (Bld) [Mass/Vol] 11.3 g/dL Low 11.5-15.5 [facility] Comment on above: Order Comment: Speci men Type: BLOOD SPECIMENOrdering Facility: [facility] Address: [address] [place] [address] Performed By: #### 5 7021-8 ####[facility] [id number] [place] [address] [place] Immature granulocytes (Bld) [#/Vol] 0.04 10*3/uL Normal <0.10 [facility] Comment on above: Order Comment: Speci men Type: BLOOD SPECIMENOrdering Facility: [facility] Address: [address] [place] [address] Performed By: #### 5 7021-8 ####[facility] [id number] [place] [address] [place] Immature granulocytes/100 WBC (Bld) 0.5 % Normal [facility] Comment on above: Order Comment: Speci men Type: BLOOD SPECIMENOrdering Facility: [facility] Address: [address] [place] [address] Performed By: #### 5 7021-8 ####[facility] [id number] [place] [address] [place] Lymphocytes (Bld) [#/Vol] 0.93 10*3/uL Low 1.00-4.00 [facility] Comment on above: Order Comment: Speci men Type: BLOOD SPECIMENOrdering Facility: [facility] Address: [address] [place] [address] Performed By: #### 5 7021-8 ####[facility] [id number] [place] [address] [place] Lymphocytes/100 WBC (Bld) 12.0 % Normal [facility] Comment on above: Order Comment: Speci men Type: BLOOD SPECIMENOrdering Facility: [facility] Address: [address] [place] [address] Performed By: #### 5 7021-8 ####[facility] OMARPkNCNATALI [id number] [address] [place] MCH (RBC) [Entitic mass] 30.7 pg Normal 26.0-34.0 [facility] Comment on above: Order Comment: Speci men Type: BLOOD SPECIMENOrdering Facility: [facility] Address: [address] [place] [address] Performed By: #### 5 7021-8 ####[facility]PITALNCLAKEVIEW HOSPITAL [id number] [address] [place] MCHC (RBC) [Mass/Vol] 33.3 g/dL Normal 30.5-36.0 [facility] Comment on above: Order Comment: Speci men Type: BLOOD SPECIMENOrdering Facility: [facility] Address: [address] [place] [address] Performed By: #### 5 7021-8 ####[facility] HOSPITALNCA [id number] [address] [place] MCV (RBC) [Entitic vol] 92.1 fL Normal 80.0-100.0 [facility] Comment on above: Order Comment: Speci men Type: BLOOD SPECIMENOrdering Facility: [facility] Address: [address] [place] [address] Performed By: #### 5 7021-8 ####[facility] HOSPITALNCLIA [id number] [place] [address] [place] Monocytes (Bld) [#/Vol] 0.65 10*3/uL Normal <0.87 [facility] Comment on above: Order Comment: Speci men Type: BLOOD SPECIMENOrdering Facility: [facility] Address: [address] [place] [address] Performed By: #### 5 7021-8 ####[facility] OMARWNCLIA [id number] [place] [address] [place] Monocytes/100 WBC (Bld) 8.4 % Normal [facility] Comment on above: Order Comment: Speci men Type: BLOOD SPECIMENOrdering Facility: [facility] Address: [address] [place] [address] Performed By: #### 5 7021-8 ####[facility] GLENBEIGHLIA [id number] [place] [address] [place] Neutrophils (Bld) [#/Vol] 5.67 10*3/uL Normal 1.45-7.50 [facility] Comment on above: Order Comment: Speci men Type: BLOOD SPECIMENOrdering Facility: [facility] Address: [address] [place] [address] Performed By: #### 5 7021-8 ####[facility] GLENBEIGHLIA [id number] [place] [address] [place] Neutrophils/100 WBC (Bld) 73.4 % Normal [facility] Comment on above: Order Comment: Speci men Type: BLOOD SPECIMENOrdering Facility: [facility] Address: [address] [place] [address] Performed By: #### 5 7021-8 ####[facility] [id number] [place] [address] [place] Nucleated RBC (Bld) [#/Vol] 10*3/uL Normal <0.01 [facility] Comment on above: Order Comment: Speci men Type: BLOOD SPECIMENOrdering Facility: [facility] Address: [address] [place] [address] Performed By: #### 5 7021-8 ####[facility] [id number] [place] [address] [place] Nucleated RBC/100 WBC (Bld) [Ratio] 0.0 /100 WBC Normal [facility] Comment on above: Order Comment: Speci men Type: BLOOD SPECIMENOrdering Facility: [facility] Address: [address] [place] [address] Performed By: #### 5 7021-8 ####[facility] HOSPITALNANO [id number] [place] [address] [place] Platelet mean volume (Bld) [Entitic vol] 8.6 fL Low 9.0-12.7 [facility] Comment on above: Order Comment: Speci men Type: BLOOD SPECIMENOrdering Facility: [facility] Address: [address] [place] [address] Performed By: #### 5 7021-8 ####[facility] HOSPITALTEMITOPEBrandee [id number] [place] [address] [place] Platelets (Bld) [#/Vol] 224 10*3/uL Normal 150-400 [facility] Comment on above: Order Comment: Speci men Type: BLOOD SPECIMENOrdering Facility: [facility] Address: [address] [place] [address] Performed By: #### 5 7021-8 ####[facility] GLENBEIGHNATALI [id number] [place] [address] [place] RBC (Bld) [#/Vol] 3.68 10*6/uL Low 3.90-5.[address] [facility] Comment on above: Order Comment: Speci men Type: BLOOD SPECIMENOrdering Facility: [facility] Address: [address] [place] [address] Performed By: #### 5 7021-8 ####[facility] HOSPITALNCLIA [id number] [place] [address] [place] WBC (Bld) [#/Vol] 7.73 10*3/uL Normal 3.70-11.[address] [facility] Comment on above: Order Comment: Speci men Type: BLOOD SPECIMENOrdering Facility: [facility] Address: [address] [place] [address] Performed By: #### 5 7021-8 ####[facility] HOSPITALNCLIA [id number] [place] [address] [place] CNOVSPon 12-08-2024 CNOVSP Normal [facility] CNPNon 12-08-2024 CNPN Normal [facility] Comprehensive metabolic 2000 panelon 12-08-2024 Albumin [Mass/Vol] 4.2 g/dL Normal 3.9-4.9 [facility] Comment on above: Order Comment: Speci men Type: BLOOD SPECIMENOrdering Facility: [facility] Address: [address] [place] [address] Performed By: #### 2 4323-8 ####[facility] HOSPITALNCLIA [id number] [place] [address] [place] ALP [Catalytic activity/Vol] 134 U/L High 34-123 [facility] Comment on above: Order Comment: Speci men Type: BLOOD SPECIMENOrdering Facility: [facility] Address: [address] [place] [address] Performed By: #### 2 4323-8 ####[facility] HOSPITALNCLIA [id number] [place] [address] [place] ALT [Catalytic activity/Vol] 11 U/L Normal 7-38 [facility] Comment on above: Order Comment: Speci men Type: BLOOD SPECIMENOrdering Facility: [facility] Address: [address] [place] [address] Performed By: #### 2 4323-8 ####[facility] PINE RIDGEWNCLIA [id number] [place] [address] [place] Anion gap [Moles/Vol] 10 mmol/L Normal 8-15 [facility] Comment on above: Order Comment: Speci men Type: BLOOD SPECIMENOrdering Facility: [facility] Address: [address] [place] [address] Performed By: #### 2 4323-8 ####[facility] HOSPITALNCLIA [id number] [place] [address] [place] AST [Catalytic activity/Vol] 16 U/L Normal 13-35 [facility] Comment on above: Order Comment: Speci men Type: BLOOD SPECIMENOrdering Facility: [facility] Address: [address] [place] [address] Performed By: #### 2 4323-8 ####[facility] HOSPITALBrandee [id number] [place] [address] [place] Bilirubin [Mass/Vol] 0.3 mg/dL Normal 0.2-1.3 [facility] Comment on above: Order Comment: Speci men Type: BLOOD SPECIMENOrdering Facility: [facility] Address: [address] [place] [address] Performed By: #### 2 4323-8 ####[facility] HOSPITALNCLIA [id number] [place] [address] [place] Calcium [Mass/Vol] 9.5 mg/dL Normal 8.5-10.2 [facility] Comment on above: Order Comment: Speci men Type: BLOOD SPECIMENOrdering Facility: [facility] Address: [address] [place] [address] Performed By: #### 2 4323-8 ####[facility] HOSPITALNCLIA [id number] [place] [address] [place] Chloride [Moles/Vol] 100 mmol/L Normal 98-107 [facility] Comment on above: Order Comment: Speci men Type: BLOOD SPECIMENOrdering Facility: [facility] Address: [address] [place] [address] Performed By: #### 2 4323-8 ####[facility] PINE RIDGEWNCLIA [id number] [place] [address] [place] CO2 [Moles/Vol] 28 mmol/L Normal 22-30 [facility] Comment on above: Order Comment: Speci men Type: BLOOD SPECIMENOrdering Facility: [facility] Address: [address] [place] [address] Performed By: #### 2 4323-8 ####[facility] HOSPITALNCLIA [id number] [place] [address] [place] Creatinine [Mass/Vol] 0.63 mg/dL Normal 0.58-0.96 [facility] Comment on above: Order Comment: Speci men Type: BLOOD SPECIMENOrdering Facility: [facility] Address: [address] [place] [address] Performed By: #### 2 4323-8 ####[facility] GLENBEIGHLIA [id number] [place] [address] [place] eGFRcr SerPlBld CKD-EPI 2020 99 mL/min/1.73m??? Normal >=60 [facility] Comment on above: Order Comment: Speci men Type: BLOOD SPECIMENOrdering Facility: [facility] Address: [address] [place] [address] Result Comment: Alayna mated Glomerular Filtration Rate [...] actual GFR. Performed By: #### 2 4323-8 ####[facility] PINE RIDGEWNCLIA [id number] [place] [address] [place] Glucose [Mass/Vol] 83 mg/dL Normal 74-99 [facility] Comment on above: Order Comment: Speci men Type: BLOOD SPECIMENOrdering Facility: [facility] Address: [address] [place], [place] [address] Result Comment: The [place] Diabetes Association (ADA) provides guidance for cutoff [...] Standards of Medical Care in Diabetes 2016, [place] Diabetes Association. Diabetes Care. 2016.39(Suppl 1). Performed By: #### 2 4323-8 ####[facility]OSPITALTEMITOPEBrandee [id number] [place] [address] [place] Potassium [Moles/Vol] 3.9 mmol/L Normal 3.7-5.1 [facility] Comment on above: Order Comment: Mikhaili men Type: BLOOD SPECIMENOrdering Facility: [facility] Address: [address] [place], [place] [address] Performed By: #### 2 4323-8 ####[facility] HOSPITALNANO [id number] [place] [address] [place] Protein [Mass/Vol] 6.6 g/dL Normal 6.3-8.0 [facility] Comment on above: Order Comment: Speci men Type: BLOOD SPECIMENOrdering Facility: [facility] Address: [address] [place], [place] [address] Performed By: #### 2 4323-8 ####[facility] HOSPITALTEMITOPELIA [id number] [place] [address] [place] Sodium [Moles/Vol] 138 mmol/L Normal 136-144 [facility] Comment on above: Order Comment: Speci men Type: BLOOD SPECIMENOrdering Facility: [facility] Address: [address] [place] [address] Performed By: #### 2 4323-8 ####[facility] DORAWNCLIA [id number] [place] [address] [place] Urea nitrogen [Mass/Vol] 12 mg/dL Normal 7-21 [facility] Comment on above: Order Comment: Speci men Type: BLOOD SPECIMENOrdering Facility: [facility] Address: [address] [place] [address] Performed By: #### 2 4323-8 ####[facility] PINE RIDGEWNCLIA [id number] [place] [address] [place] CNPNon 12-02-2024 CNPN Normal [facility] CNPNon 11-26-2024 CNPN Normal [facility] Magnetic resonance imaging r eportOrdered By: Ike Garcia on 11-25-2024 Study report [facility] [address] [place] [address] Upper Ext No Joint W/WO Cont MR#: [id number] Acct: [id number] Name: Everette HERBERT Rep #: [id number] : 1960 F 64 From: Percy Garcia MD PCP: Dr. Hellen Lafleur MD Status: REG C ELICIA Study:Upper Ext No Joint W/WO Cont Date of E xam: 11/19/24 Exam# [id number] Ordering Dr: Kezia Zhu DO PROCEDURE: UPPER EXT NO JOINT [...] measuring 1.2 cm, probably metastatic. Reading Location: [place] [address] CC: Dr. Hellen Zhu DO; Dr. Hellen Lafleur MD ~ Architectural Inspector: Signed [facility] CBC W Auto Differential pane l (Bld)on 11-24-2024 Basophils (Bld) [#/Vol] 0.08 10*3/uL Normal <0.11 [facility] Comment on above: Order Comment: Speci men Type: BLOOD SPECIMENOrdering Facility: [facility] Address: [address] [place] [address] Performed By: #### 5 7021-8 ####[facility] [id number] [place] [address] [place] Basophils/100 WBC (Bld) 2.1 % Normal [facility] Comment on above: Order Comment: Speci men Type: BLOOD SPECIMENOrdering Facility: [facility] Address: [address] [place] [address] Performed By: #### 5 7021-8 ####[facility] OMARBRIDGET [id number] [place] [address] [place] Differential cell count method Nom (Bld) Auto Normal [facility] Comment on above: Order Comment: Speci men Type: BLOOD SPECIMENOrdering Facility: [facility] Address: [address] [place] [address] Performed By: #### 5 7021-8 ####[facility]OSPITALNCLAKEVIEW HOSPITAL [id number] [place] [address] [place] Eosinophils (Bld) [#/Vol] 0.15 10*3/uL Normal <0.46 [facility] Comment on above: Order Comment: Speci men Type: BLOOD SPECIMENOrdering Facility: [facility] Address: [address] [place] [address] Performed By: #### 5 7021-8 ####[facility] [id number] [place] [address] [place] Eosinophils/100 WBC (Bld) 4.0 % Normal [facility] Comment on above: Order Comment: Speci men Type: BLOOD SPECIMENOrdering Facility: [facility] Address: [address] [place] [address] Performed By: #### 5 7021-8 ####[facility] GLENBEIGHLI [id number] [place] [address] [place] Erythrocyte distribution width (RBC) [Ratio] 16.1 % High 11.5-15.0 [facility] Comment on above: Order Comment: Speci men Type: BLOOD SPECIMENOrdering Facility: [facility] Address: [address] [place] [address] Performed By: #### 5 7021-8 ####[facility] GLENBEIGHLIA [id number] [place] [address] [place] Hematocrit (Bld) [Volume fraction] 31.4 % Low 36.0-46.0 [facility] Comment on above: Order Comment: Speci men Type: BLOOD SPECIMENOrdering Facility: [facility] Address: [address] [place] [address] Performed By: #### 5 7021-8 ####[facility] [id number] [place] [address] [place] Hemoglobin (Bld) [Mass/Vol] 10.3 g/dL Low 11.5-15.5 [facility] Comment on above: Order Comment: Speci men Type: BLOOD SPECIMENOrdering Facility: [facility] Address: [address] [place] [address] Performed By: #### 5 7021-8 ####[facility] [id number] [place] [address] [place] Immature granulocytes (Bld) [#/Vol] 0.09 10*3/uL Normal <0.10 [facility] Comment on above: Order Comment: Speci men Type: BLOOD SPECIMENOrdering Facility: [facility] Address: [address] [place] [address] Performed By: #### 5 7021-8 ####[facility] [id number] [place] [address] [place] Immature granulocytes/100 WBC (Bld) 2.4 % Normal [facility] Comment on above: Order Comment: Speci men Type: BLOOD SPECIMENOrdering Facility: [facility] Address: [address] [place] [address] Performed By: #### 5 7021-8 ####[facility] HOSPITALNCLIA [id number] [place] [address] [place] Lymphocytes (Bld) [#/Vol] 0.57 10*3/uL Low 1.00-4.00 [facility] Comment on above: Order Comment: Speci men Type: BLOOD SPECIMENOrdering Facility: [facility] Address: [address] [place] [address] Performed By: #### 5 7021-8 ####[facility]PITALNCLAKEVIEW HOSPITAL [id number] [place] [address] [place] Lymphocytes/100 WBC (Bld) 15.1 % Normal [facility] Comment on above: Order Comment: Speci men Type: BLOOD SPECIMENOrdering Facility: [facility] Address: [address] [place] [address] Performed By: #### 5 7021-8 ####[facility] HOSPITALNCLI [id number] [place] [address] [place] MCH (RBC) [Entitic mass] 30.5 pg Normal 26.0-34.0 [facility] Comment on above: Order Comment: Speci men Type: BLOOD SPECIMENOrdering Facility: [facility] Address: [address] [place] [address] Performed By: #### 5 7021-8 ####[facility] HOSPITALNCLI [id number] [place] [address] [place] MCHC (RBC) [Mass/Vol] 32.8 g/dL Normal 30.5-36.0 [facility] Comment on above: Order Comment: Speci men Type: BLOOD SPECIMENOrdering Facility: [facility] Address: [address] [place] [address] Performed By: #### 5 7021-8 ####[facility] HOSPITALNCLIA [id number] [place] [address] [place] MCV (RBC) [Entitic vol] 92.9 fL Normal 80.0-100.0 [facility] Comment on above: Order Comment: Speci men Type: BLOOD SPECIMENOrdering Facility: [facility] Address: [address] [place] [address] Performed By: #### 5 7021-8 ####[facility] OMARBRIDGET [id number] [place] [address] [place] Monocytes (Bld) [#/Vol] 0.44 10*3/uL Normal <0.87 [facility] Comment on above: Order Comment: Speci men Type: BLOOD SPECIMENOrdering Facility: [facility] Address: [address] [place] [address] Performed By: #### 5 7021-8 ####[facility] HOSPITALA [id number] [place] [address] [place] Monocytes/100 WBC (Bld) 11.7 % Normal [facility] Comment on above: Order Comment: Speci men Type: BLOOD SPECIMENOrdering Facility: [facility] Address: [address] [place] [address] Performed By: #### 5 7021-8 ####[facility] HOSPITALNCA [id number] [place] [address] [place] Neutrophils (Bld) [#/Vol] 2.44 10*3/uL Normal 1.45-7.50 [facility] Comment on above: Order Comment: Speci men Type: BLOOD SPECIMENOrdering Facility: [facility] Address: [address] [place] [address] Performed By: #### 5 7021-8 ####[facility]PITALNCLIA [id number] [place] [address] [place] Neutrophils/100 WBC (Bld) 64.7 % Normal [facility] Comment on above: Order Comment: Speci men Type: BLOOD SPECIMENOrdering Facility: [facility] Address: [address] [place] [address] Performed By: #### 5 7021-8 ####[facility] OMARLALILIA [id number] [place] [address] [place] Nucleated RBC (Bld) [#/Vol] 10*3/uL Normal <0.01 [facility] Comment on above: Order Comment: Speci men Type: BLOOD SPECIMENOrdering Facility: [facility] Address: [address] [place] [address] Performed By: #### 5 7021-8 ####[facility] HOSPITALTEMITOPELIA [id number] [place] [address] [place] Nucleated RBC/100 WBC (Bld) [Ratio] 0.0 /100 WBC Normal [facility] Comment on above: Order Comment: Speci men Type: BLOOD SPECIMENOrdering Facility: [facility] Address: [address] [place] [address] Performed By: #### 5 7021-8 ####[facility] [id number] [place] [address] [place] Platelet mean volume (Bld) [Entitic vol] 8.6 fL Low 9.0-12.7 [facility] Comment on above: Order Comment: Speci men Type: BLOOD SPECIMENOrdering Facility: [facility] Address: [address] [place] [address] Performed By: #### 5 7021-8 ####[facility] GLENBEIGHLIA [id number] [place] [address] [place] Platelets (Bld) [#/Vol] 356 10*3/uL Normal 150-400 [facility] Comment on above: Order Comment: Speci men Type: BLOOD SPECIMENOrdering Facility: [facility] Address: [address] [place] [address] Performed By: #### 5 7021-8 ####[facility] HOSPITALNCLIA [id number] [place] [address] [place] RBC (Bld) [#/Vol] 3.38 10*6/uL Low 3.90-5.[address] [facility] Comment on above: Order Comment: Speci men Type: BLOOD SPECIMENOrdering Facility: [facility] Address: [address] [place] [address] Performed By: #### 5 7021-8 ####[facility] [id number] [place] [address] [place] WBC (Bld) [#/Vol] 3.77 10*3/uL Normal 3.70-11.[address] [facility] Comment on above: Order Comment: Speci men Type: BLOOD SPECIMENOrdering Facility: [facility] Address: [address] [place] [address] Performed By: #### 5 7021-8 ####[facility] [id number] [place] [address] [place] Cancer Ag15-3 SerPl-aCncon 0 11-24-2024 Cancer Ag 15-3 Qn 48.9 U/mL High <26.0 [facility] Comment on above: Order Comment: Speci men Type: BLOOD SPECIMENOrdering Facility: [facility] Address: [address] [place] [address] Result Comment: The CA 15-3 test methodology used is the Electrochemiluminescence Immunoassay by [employer]. Results obtained with different methods or kits cannot be used interchangeably. Performed By: #### 2 143-6, 6875-9, 3024-7, 3016-3 ####[facility] LABCLIA [id number] [place] [address] [place] Comprehensive metabolic 2000 panelon 11-24-2024 Albumin [Mass/Vol] 4.3 g/dL Normal 3.9-4.9 [facility] Comment on above: Order Comment: Speci men Type: BLOOD SPECIMENOrdering Facility: [facility] Address: [address] [place] [address] Performed By: #### 2 4323-8 ####[facility] MILLTOWNCLIA [id number] [place] [address] [place] ALP [Catalytic activity/Vol] 102 U/L Normal 34-123 [facility] Comment on above: Order Comment: Speci men Type: BLOOD SPECIMENOrdering Facility: [facility] Address: [address] [place] [address] Performed By: #### 2 4323-8 ####[facility] MILLWNCLIA [id number] [place] [address] [place] ALT [Catalytic activity/Vol] 11 U/L Normal 7-38 [facility] Comment on above: Order Comment: Speci men Type: BLOOD SPECIMENOrdering Facility: [facility] Address: [address] [place] [address] Performed By: #### 2 4323-8 ####[facility] PINE RIDGEWNCLIA [id number] [place] [address] [place] Anion gap [Moles/Vol] 10 mmol/L Normal 8-15 [facility] Comment on above: Order Comment: Speci men Type: BLOOD SPECIMENOrdering Facility: [facility] Address: [address] [place] [address] Performed By: #### 2 4323-8 ####[facility] P[facility] RIDGEWNCLIA [id number] [place] [address] [place] AST [Catalytic activity/Vol] 17 U/L Normal 13-35 [facility] Comment on above: Order Comment: Speci men Type: BLOOD SPECIMENOrdering Facility: [facility] Address: [address] [place] [address] Performed By: #### 2 4323-8 ####[facility]PITALNCLIA [id number] [place] [address] [place] Bilirubin [Mass/Vol] 0.2 mg/dL Normal 0.2-1.3 [facility] Comment on above: Order Comment: Speci men Type: BLOOD SPECIMENOrdering Facility: [facility] Address: [address] [place] [address] Performed By: #### 2 4323-8 ####[facility] GLENBEIGHLIA [id number] [place] [address] [place] Calcium [Mass/Vol] 9.3 mg/dL Normal 8.5-10.2 [facility] Comment on above: Order Comment: Speci men Type: BLOOD SPECIMENOrdering Facility: [facility] Address: [address] [place] [address] Performed By: #### 2 4323-8 ####[facility] [id number] [place] [address] [place] Chloride [Moles/Vol] 101 mmol/L Normal 98-107 [facility] Comment on above: Order Comment: Speci men Type: BLOOD SPECIMENOrdering Facility: [facility] Address: [address] [place] [address] Performed By: #### 2 4323-8 ####[facility] GLENBEIGHLIA [id number] [place] [address] [place] CO2 [Moles/Vol] 27 mmol/L Normal 22-30 [facility] Comment on above: Order Comment: Speci men Type: BLOOD SPECIMENOrdering Facility: [facility] Address: [address] [place], [place] [address] Performed By: #### 2 4323-8 ####[facility]OSPITALA [id number] [place] [address] [place] Creatinine [Mass/Vol] 0.68 mg/dL Normal 0.58-0.96 [facility] Comment on above: Order Comment: Speci men Type: BLOOD SPECIMENOrdering Facility: [facility] Address: [address] [place] [address] Performed By: #### 2 4323-8 ####[facility] [id number] [place] [address] [place] eGFRcr SerPlBld CKD-EPI 2020 97 mL/min/1.73m??? Normal >=60 [facility] Comment on above: Order Comment: [place] villarreal Type: BLOOD SPECIMENOrdering Facility: [facility] Address: [address] [place] [address] Result Comment: Alayna mated Glomerular Filtration Rate [...] GFR. Performed By: #### 2 4323-8 ####[facility] [id number] [place] [address] [place] Glucose [Mass/Vol] 91 mg/dL Normal 74-99 [facility] [facility] Comment on above: Order Comment: [place] villarreal Type: BLOOD SPECIMENOrdering Facility: [facility] Address: [address] [place] [address] Result Comment: The [place] Diabetes Association (ADA) provides guidance for cutoff [...] Standards of Medical Care in Diabetes 2016, [place] Diabetes Association. Diabetes Care. 2016.39(Suppl 1). Performed By: #### 2 4323-8 ####[facility] MILLTOWNCLIA [id number] [place] [address] [place] Potassium [Moles/Vol] 3.8 mmol/L Normal 3.7-5.1 [facility] Comment on above: Order Comment: Speci men Type: BLOOD SPECIMENOrdering Facility: [facility] Address: [address] [place] [address] Performed By: #### 2 4323-8 ####[facility] MILLTOWNCLIA [id number] [place] [address] [place] Protein [Mass/Vol] 6.4 g/dL Normal 6.3-8.0 [facility] Comment on above: Order Comment: Speci men Type: BLOOD SPECIMENOrdering Facility: [facility] Address: [address] [place] [address] Performed By: #### 2 4323-8 ####[facility] GLENBEIGHLIA [id number] [place] [address] [place] Sodium [Moles/Vol] 138 mmol/L Normal 136-144 [facility] Comment on above: Order Comment: Speci men Type: BLOOD SPECIMENOrdering Facility: [facility] Address: [address] [place] [address] Performed By: #### 2 4323-8 ####[facility] MILLWNCLIA [id number] [place] [address] [place] Urea nitrogen [Mass/Vol] 12 mg/dL Normal 7-21 [facility] Comment on above: Order Comment: Speci men Type: BLOOD SPECIMENOrdering Facility: [facility] Address: [address] [place] [address] Performed By: #### 2 4323-8 ####[facility]ITALNCLIA [id number] [place] [address] [place] Cortroxanna Chakraborty 11-25-19 25 Cortisol [Mass/Vol] 11.9 ug/dL Normal 4.8-19.[address] [facility] Comment on above: Order Comment: Speci men Type: BLOOD SPECIMENOrdering Facility: [facility] Address: [address] [place] [address] Result Comment: Prov ided reference range is from 6-10 AM sample collection time.Cortisol Reference Range: 6-10 AM = 4.8-19.5 ug/dL, 4-8 PM = 2.5-11.9 ug/dL Performed By: #### 2 143-6, 6875-9, 3024-7, 3016-3 ####[facility] LABCLIA [id number] [place] [id number] [place] T4 Free SerPl-mCncon 025 Free T4 [Mass/Vol] 1.1 ng/dL Normal 0.9-1.7 [facility] Comment on above: Order Comment: Speci men Type: BLOOD SPECIMENOrdering Facility: [facility] Address: [address] [place] [address] Performed By: #### 2 143-6, 6875-9, 3024-7, 3016-3 ####[facility] LABCLIA [id number] [place] [address] [place] TSH SerPl-aCncon 11-24-2024 TSH Qn 1.260 m[IU]/L Normal 0.270-4.20 0 [facility] Comment on above: Order Comment: Speci men Type: BLOOD SPECIMENOrdering Facility: [facility] Address: [address] [place] [address] Performed By: #### 2 143-6, 6875-9, 3024-7, 3016-3 ####[facility] LABCLIA [id number] [place] [id number] [place] CNPNon 11-19-2024 CNPN Normal [facility] Upper Ext No Joint W/WO Cont on 11-19-2024 Upper Ext No Joint W/WO Cont [facility] [address] [place], [place] [address] Upper Ext No Joint W/WO Cont MR#: [id number] Acct: [id number] Name: Everette HERBERT Rep #: [id number] : 1960 F 64 From: Ike burroughs MD PCP: Dr. Hellen Lafleur MD Status: REG CLI Study: Upper Ext No Joint W/WO Cont Date of Exam: Exam# [id number] Ordering Dr: Hellen Zhu DO PROCEDURE: UPPER [...] measuring 1.2 cm, probably metastatic. Reading [facility] CC: Dr. Hellen Zhu DO; Dr. Hellen Lafleur MD Architectural Inspector: Signed Normal [facility] CBC W Auto Differential pane l (Bld)on 11-17-2024 Anisocytosis Ql (Bld) Present Normal [facility] Comment on above: Order Comment: Speci men Type: BLOOD SPECIMENOrdering Facility: [facility] Address: [address] [place] [address] Performed By: #### 5 7021-8 ####[facility] [id number] [address] LABORATORYCLIA [id number] [place] [address] [place] Basophils (Bld) [#/Vol] 0.00 10*3/uL Normal <0.11 [facility] Comment on above: Order Comment: Speci men Type: BLOOD SPECIMENOrdering Facility: [facility] Address: [address] [place] [address] Performed By: #### 5 7021-8 ####[facility] [id number] [address] LABORATORYCLIA [id number] [place] [address] [place] Basophils/100 WBC (Bld) 0.0 % Normal [facility] Comment on above: Order Comment: Speci men Type: BLOOD SPECIMENOrdering Facility: [facility] Address: [address] [place] [address] Performed By: #### 5 7021-8 ####[facility] [id number] [address] [facility] LABORATORYCLIA [id number] [place] [address] [place] Dacrocytes LM Ql (Bld) Few Normal [facility] Comment on above: Order Comment: Speci men Type: BLOOD SPECIMENOrdering Facility: [facility] Address: [address] [place] [address] Performed By: #### 5 7021-8 ####[facility] RIDGEWVALIA [id number] [address] LABORATORYCLIA [id number] [place] [address] [place] Differential cell count method Nom (Bld) Manual Normal [facility] Comment on above: Order Comment: Speci men Type: BLOOD SPECIMENOrdering Facility: [facility] Address: [address] [place] [address] Performed By: #### 5 7021-8 ####[facility] GLENBEIGHLIA [id number] [address] LABORATORYCLIA [id number] [place] [address] [place] Eosinophils (Bld) [#/Vol] 0.26 10*3/uL Normal <0.46 [facility] Comment on above: Order Comment: Speci men Type: BLOOD SPECIMENOrdering Facility: [facility] Address: [address] [place] [address] Performed By: #### 5 7021-8 ####[facility] RIDGEWNCLIA [id number] [address] LABORATORYIA [id number] [place] [address] [place] Eosinophils/100 WBC (Bld) 3.0 % Normal [facility] Comment on above: Order Comment: Speci men Type: BLOOD SPECIMENOrdering Facility: [facility] Address: [address] [place], [place] [address] [address] Performed By: #### 5 7021-8 ####[facility] OMARNAJMALIA [id number] [address] LABORATORYCLIA [id number] [place] [address] [place] Erythrocyte distribution width (RBC) [Ratio] 15.9 % High 11.5-15.0 [facility] Comment on above: Order Comment: Speci men Type: BLOOD SPECIMENOrdering Facility: [facility] Address: Formerly named [facility] [place] [address] Performed By: #### 5 7021-8 ####[facility] HOSPITALBLAKEA [id number] [address] LABORATORYCLIA [id number] [place] [address] [place] Hematocrit (Bld) [Volume fraction] 31.0 % Low 36.0-46.0 [facility] Comment on above: Order Comment: Speci men Type: BLOOD SPECIMENOrdering Facility: [facility] Address: Formerly named [facility] [place] [address] Performed By: #### 5 7021-8 ####[facility] IN[facility]UTENAJMALIA [id number] [address] LABORATORYIA [id number] [place] [address] [place] Hemoglobin (Bld) [Mass/Vol] 10.2 g/dL Low 11.5-15.5 [facility] Comment on above: Order Comment: Speci men Type: BLOOD SPECIMENOrdering Facility: [facility] Address: Formerly named [facility] [place] [address] Performed By: #### 5 7021-8 ####[facility]STITUTENAJMALIA [id number] [address] LABORATORYCLIA [id number] [place] [address] [place] Lymphocytes (Bld) [#/Vol] 0.70 10*3/uL Low 1.00-4.00 [facility] Comment on above: Order Comment: Speci men Type: BLOOD SPECIMENOrdering Facility: [facility] Address: [address] [place] [address] Performed By: #### 5 7021-8 ####[facility] MILLTOWNCLIA [id number] [address] LABORATORYCLIA [id number] [address] [facility] Lymphocytes/100 WBC (Bld) 8.0 % Normal [facility] Comment on above: Order Comment: Speci men Type: BLOOD SPECIMENOrdering Facility: [facility] Address: [address] [place] [address] Performed By: #### 5 7021-8 ####[facility] INSTITUTETOWNCLIA [id number] [address] LABORATORYCLIA [id number] [address] STATES OF [facility] MCH (RBC) [Entitic mass] 30.4 pg Normal 26.0-34.0 [facility] Comment on above: Order Comment: Speci men Type: BLOOD SPECIMENOrdering Facility: [facility] Address: [address] [place] [address] Performed By: #### 5 7021-8 ####[facility] MILLTOWNCLIA [id number] [address] LABORATORYCLIA [id number] [place] [address] [place] MCHC (RBC) [Mass/Vol] 32.9 g/dL Normal 30.5-36.0 [facility] Comment on above: Order Comment: Speci men Type: BLOOD SPECIMENOrdering Facility: [facility] Address: [address] [place] [address] Performed By: #### 5 7021-8 ####[facility] MILLTOWNCLIA [id number] [address] LABORATORYCLIA [id number] [place] [address] [place] MCV (RBC) [Entitic vol] 92.3 fL Normal 80.0-100.0 [facility] Comment on above: Order Comment: Speci men Type: BLOOD SPECIMENOrdering Facility: [facility] Address: [address] [place] [address] Performed By: #### 5 7021-8 ####[facility] MILLTOWNCLIA [id number] [address] LABORATORYCLIA [id number] [place] [address] [place] Monocytes (Bld) [#/Vol] 0.70 10*3/uL Normal <0.87 [facility] Comment on above: Order Comment: Speci men Type: BLOOD SPECIMENOrdering Facility: [facility] Address: [address] [place] [address] Performed By: #### 5 7021-8 ####[facility] MILLTOWNCLIA [id number] [address] LABORATORYCLIA [id number] [place] [address] [place] Monocytes/100 WBC (Bld) 8.0 % Normal [facility] Comment on above: Order Comment: Speci men Type: BLOOD SPECIMENOrdering Facility: [facility] Address: [address] [place] [address] Performed By: #### 5 7021-8 ####[facility]ITALNCLIA [id number] [address] LABORATORYCLIA [id number] [place] [address] [place] Neutrophils (Bld) [#/Vol] 7.04 10*3/uL Normal 1.45-7.50 [facility] Comment on above: Order Comment: Speci men Type: BLOOD SPECIMENOrdering Facility: [facility] Address: [address] [place] [address] Performed By: #### 5 7021-8 ####[facility] P[facility] RIDGEWNCLIA [id number] [address] LABORATORYCLIA [id number] [place] [address] [place] Neutrophils/100 WBC (Bld) 81.0 % Normal [facility] Comment on above: Order Comment: Speci men Type: BLOOD SPECIMENOrdering Facility: [facility] Address: [address] [place] [address] Performed By: #### 5 7021-8 ####[facility] P[facility] RIDGEWNCLIA [id number] [address] LABORATORYCLIA [id number] [place] [address] [place] Nucleated RBC (Bld) [#/Vol] 10*3/uL Normal <0.01 [facility] Comment on above: Order Comment: Speci men Type: BLOOD SPECIMENOrdering Facility: [facility] Address: [address] [place] [address] Performed By: #### 5 7021-8 ####[facility] P[facility] RIDGEWNCLIA [id number] [address] LABORATORYCLIA [id number] [place] [address] [place] Nucleated RBC/100 WBC (Bld) [Ratio] 0.0 /100 WBC Normal [facility] Comment on above: Order Comment: Speci men Type: BLOOD SPECIMENOrdering Facility: [facility] Address: [address] [place] [address] Performed By: #### 5 7021-8 ####[facility] GLENBEIGHLIA [id number] [address] LABORATORYCLIA [id number] [place] [address] [place] Ovalocytes LM Ql (Bld) Few Normal [facility] Comment on above: Order Comment: Speci men Type: BLOOD SPECIMENOrdering Facility: [facility] Address: [address] [place] [address] Performed By: #### 5 7021-8 ####[facility] [id number] [address] LABORATORYCLIA [id number] [place] [address] [place] Platelet mean volume (Bld) [Entitic vol] 9.6 fL Normal 9.0-12.7 [facility] Comment on above: Order Comment: Speci men Type: BLOOD SPECIMENOrdering Facility: [facility] Address: [address] [place] [address] Performed By: #### 5 7021-8 ####[facility] [id number] [address] LABORATORYCLIA [id number] [place] [address] [place] Platelets (Bld) [#/Vol] 383 10*3/uL Normal 150-400 [facility] Comment on above: Order Comment: Speci men Type: BLOOD SPECIMENOrdering Facility: [facility] Address: [address] [place] [address] Result Comment: No c lot detected. Performed By: #### 5 7021-8 ####[facility] MILLTOWNCLIA [id number] [address] LABORATORYCLIA [id number] [place] [address] [place] Platelets Estimate (Bld) [#/Vol] Adequate Normal [facility] Comment on above: Order Comment: Speci men Type: BLOOD SPECIMENOrdering Facility: [facility] Address: [address] [place] [address] Performed By: #### 5 7021-8 ####[facility]ITALNCLIA [id number] [address] LABORATORYCLIA [id number] [place] [address] [place] [facility] RBC (Bld) [#/Vol] 3.36 10*6/uL Low 3.90-5.[address] [facility] Comment on above: Order Comment: Speci men Type: BLOOD SPECIMENOrdering Facility: [facility] Address: [address] [place] [address] Performed By: #### 5 7021-8 ####[facility] RIDGEWNCLIA [id number] [address] LABORATORYCLIA [id number] [place] [address] [place] RBC FRAGMENTS Few Abnormal None Seen [facility] Comment on above: Order Comment: Speci men Type: BLOOD SPECIMENOrdering Facility: [facility] Address: [address] [place] [address] Performed By: #### 5 7021-8 ####[facility]UTETOWNCLIA [id number] [address] LABORATORYCLIA [id number] [place] [address] [place] RED CELL MORPH Reviewed: see result s of individual morphologies Normal [facility] Comment on above: Order Comment: Speci men Type: BLOOD SPECIMENOrdering Facility: [facility] Address: [address] [place] [address] Performed By: #### 5 7021-8 ####[facility]ITALNCLIA [id number] [address] LABORATORYCLIA [id number] [place] [address] [place] WBC (Bld) [#/Vol] 8.69 10*3/uL Normal 3.70-11.[address] [facility] Comment on above: Order Comment: Speci men Type: BLOOD SPECIMENOrdering Facility: [facility] Address: [address] [place] [address] Performed By: #### 5 7021-8 ####[facility] [id number] [address] LABORATORYCLIA [id number] [address] [place] WBC Left Shift Ql (Bld) Present Normal [facility] Comment on above: Order Comment: Speci men Type: BLOOD SPECIMENOrdering Facility: [facility] Address: [address] [place] [address] Performed By: #### 5 7021-8 ####[facility] [id number] [address] LABORATORYCLIA [id number] [place] [address] [place] [facility] Cancer Ag15-3 SerPl-aCncon 0 11-17-2024 Cancer Ag 15-3 Qn 44.3 U/mL High <26.0 [facility] Comment on above: Order Comment: Speci men Type: BLOOD SPECIMENOrdering Facility: [facility] Address: [address] [place] [address] Result Comment: The CA 15-3 test methodology used is the Electrochemiluminescence Immunoassay by [employer]. Results obtained with different methods or kits cannot be used interchangeably. Performed By: #### 3 024-7, 2143-6, 6875-9, 3016-3 ####[facility] LABCLIA [id number] [place] [address] [place] Comprehensive metabolic 2000 panelon 11-17-2024 Albumin [Mass/Vol] 4.2 g/dL Normal 3.9-4.9 [facility] Comment on above: Order Comment: Speci men Type: BLOOD SPECIMENOrdering Facility: [facility] Address: [address] [place] [address] Performed By: #### 2 4323-8 ####[facility] [id number] [place] [address] [place] ALP [Catalytic activity/Vol] 101 U/L Normal 34-123 [facility] Comment on above: Order Comment: Speci men Type: BLOOD SPECIMENOrdering Facility: [facility] Address: [address] [place] [address] Performed By: #### 2 4323-8 ####[facility] [id number] [place] [address] [place] ALT [Catalytic activity/Vol] 25 U/L Normal 7-38 [facility] Comment on above: Order Comment: Speci men Type: BLOOD SPECIMENOrdering Facility: [facility] Address: [address] [place] [address] Performed By: #### 2 4323-8 ####[facility] GLENBEIGHLIA [id number] [place] [address] [place] Anion gap [Moles/Vol] 9 mmol/L Normal 8-15 [facility] Comment on above: Order Comment: Speci men Type: BLOOD SPECIMENOrdering Facility: [facility] Address: [address] [place] [address] Performed By: #### 2 4323-8 ####[facility] MILLTOWNCLIA [id number] [place] [address] [place] AST [Catalytic activity/Vol] 21 U/L Normal 13-35 [facility] Comment on above: Order Comment: Speci men Type: BLOOD SPECIMENOrdering Facility: [facility] Address: [address] [place] [address] Performed By: #### 2 4323-8 ####[facility] MILLTOWNCLIA [id number] [place] [address] [place] Bilirubin [Mass/Vol] 0.3 mg/dL Normal 0.2-1.3 [facility] Comment on above: Order Comment: Speci men Type: BLOOD SPECIMENOrdering Facility: [facility] Address: [address] [place] [address] Performed By: #### 2 4323-8 ####[facility] MILLTOWNCLIA [id number] [place] [address] [place] Calcium [Mass/Vol] 9.3 mg/dL Normal 8.5-10.2 [facility] Comment on above: Order Comment: Speci men Type: BLOOD SPECIMENOrdering Facility: [facility] Address: [address] [place] [address] Performed By: #### 2 4323-8 ####[facility] MILLTOWNCLIA [id number] [place] [address] [place] Chloride [Moles/Vol] 101 mmol/L Normal 98-107 [facility] Comment on above: Order Comment: Speci men Type: BLOOD SPECIMENOrdering Facility: [facility] Address: [address] [place] [address] Performed By: #### 2 4323-8 ####[facility] MILLTOWNCLIA [id number] [place] [address] [place] CO2 [Moles/Vol] 28 mmol/L Normal 22-30 [facility] Comment on above: Order Comment: Speci men Type: BLOOD SPECIMENOrdering Facility: [facility] Address: [address] [place] [address] Performed By: #### 2 4323-8 ####[facility] [id number] [place] [address] [place] Creatinine [Mass/Vol] 0.65 mg/dL Normal 0.58-0.96 [facility] Comment on above: Order Comment: Speci men Type: BLOOD SPECIMENOrdering Facility: [facility] Address: [address] [place] [address] Performed By: #### 2 4323-8 ####[facility] [id number] [place] [address] [place] eGFRcr SerPlBld CKD-EPI 2020 98 mL/min/1.73m??? Normal >=60 [facility] Comment on above: Order Comment: Speci men Type: BLOOD SPECIMENOrdering Facility: [facility] Address: [address] [place] [address] Result Comment: Alayna mated Glomerular Filtration Rate [...] actual GFR. Performed By: #### 2 4323-8 ####[facility]ITALNCLIA [id number] [place] [address] [place] Glucose [Mass/Vol] 97 mg/dL Normal 74-99 [facility] Comment on above: Order Comment: Speci men Type: BLOOD SPECIMENOrdering Facility: [facility] Address: [address] [place] [id number] Result Comment: The [place] Diabetes Association (ADA) provides guidance for cutoff [...] Standards of Medical Care in Diabetes 2016, [place] [employer]. Diabetes Care. 2016.39(Suppl 1). Performed By: #### 2 4323-8 ####[facility] [id number] [place] [address] [place] Potassium [Moles/Vol] 4.1 mmol/L Normal 3.7-5.1 [facility] Comment on above: Order Comment: Speci men Type: BLOOD SPECIMENOrdering Facility: [facility] Address: [address] [place] [address] Performed By: #### 2 4323-8 ####[facility] [id number] [place] [address] [place] Protein [Mass/Vol] 6.1 g/dL Low 6.3-8.0 [facility] Comment on above: Order Comment: Speci men Type: BLOOD SPECIMENOrdering Facility: [facility] Address: [address] [place], [place] [id number] Performed By: #### 2 4323-8 ####[facility] [id number] [place] [address] [place] Sodium [Moles/Vol] 138 mmol/L Normal 136-144 [facility] Comment on above: Order Comment: Speci men Type: BLOOD SPECIMENOrdering Facility: [facility] Address: [address] [place] [address] Performed By: #### 2 4323-8 ####[facility]PITALNANO [id number] [address] STATES OF [facility] Urea nitrogen [Mass/Vol] 12 mg/dL Normal 7-21 [facility] Comment on above: Order Comment: Speci men Type: BLOOD SPECIMENOrdering Facility: [facility] Address: [address] [place] [address] Performed By: #### 2 4323-8 ####[facility] HOSPITALTEMITOPELIBrandee [id number] [address] [place] Cortroxanna SerPl-mCncon 11-18-19 25 Cortisol [Mass/Vol] 7.2 ug/dL Normal 4.8-19.[address] [facility] Comment on above: Order Comment: Speci men Type: BLOOD SPECIMENOrdering Facility: [facility] Address: [address] [place] [address] Result Comment: Prov ided reference range is from 6-10 AM sample collection time.Cortisol Reference Range: 6-10 AM = 4.8-19.5 ug/dL, 4-8 PM = 2.5-11.9 ug/dL Performed By: #### 3 024-7, 2143-6, 6875-9, 3016-3 ####[facility] LABCLIA [id number] [address] OF [place] DPYD/UGT1A1 GENOTYPING PANEL on 11-17-2024 DPYD/UGT1A1 GENOTYPING PANEL RESULT Normal [facility] Comment on above: Order Comment: Speci men Type: BLOOD SPECIMENOrdering Facility: [facility] Address: [address] [place] [address] Result Comment: [facility] [employer] DPYD and UGT1A1 GenotypingLaboratory Accession Number: [id number] Genotype: *1/*1DPYD Activity Score: 2DPYD Predicted Phenotype: DPYD Normal WsbwuinolylXWW2A6 Genotype: *1/*80+*67UFV2W1 Predicted Phenotype: UGT1A1 Intermediate MetabolizerInterpretation:Two normal function alleles were observed in the DPYD gene [...] regardingmolecular testing details should be directed .One decreased function UGT1A1 allele, in combination with either onenormal function or one increased function UGT1A1 allele, wasobserved in this sample (see variant details below). This isassociated with a UGT1A1 intermediate metabolizer phenotype. CKG8W2lysoaopikmkl metabolizers are not expected to require (based onpharmacogenomic results alone) selective adjustment of the dose ofmedications metabolized by UGT. Please consult a clinical pharmacistfor more information regarding drug therapy. Questions regardingmolecular testing details should be directed .The DPYD gene encodes dihydropyrimidine dehydrogenase (DPD). Thisenzyme is involved in the metabolism of fluoropyrimidines. The CVW8O5vpkt encodes UDP-glucuronosyltransferase (UGT). UGT is involved in [...] lists the variantsinterrogated by this test.DPYD Variant Details:[id number] Variant Details:UGT1A1 [id number], c.-346C>T, g.303131105U>T (legacy name 80); [id number], c.-41_-40dupTA g.[id number] (legacy name 28)DPYD Additional Information:In addition to increased risk of 5-fluorouracil toxicity, variants inthe DPYD gene may be associated with DPD deficiency, an autosomalrecessive inborn error of metabolism (OMIM: 993634). DPD deficiencyexhibits a wide range of phenotypic variability, from no symptoms to vera rare severe neurological disorder with onset in infancy orchildhood (prevalence unknown). For the vast majority of affectedindividuals, the first and only symptom is sensitivity to5-fluorouracil and capecitabine. It is possible that individuals withDPD deficiency may be identified by the presence of two no-functionDPYD variants (activity score = 0). However, this [...] list below) in the DPYD gene (OMIM 402643) byzRLZ1Z3 gene (OMIM 266820). This test does not detect all sequencevariants [...] orabsence of the following variants, RefSNP ID: [id number], [id number] (TA repeats), and [id number].DPYD star alleles and targeted variants:RefSNP ID Legacy Total Allele Highest Allele Name Frequency Frequency General Population (Population)No variantdetected *[id number] *2A 0.6% 2.4% (Eur F)[id number] *8 0.01% 0.03% (S )[id number] *10 n/[id number] *12 0.0008% 0.003% (S )[id number] *13 0.03% 0.06% (Eur F)[id number] Y186C 0.2% 2.15% ()[id number] c.2846A>T 0.3% 0.5% (Eur NF)[id number] HapB3 1.4% 2.1 % (Eur NF)ri25003242 HapB3(c.1236G>A) 1.4% 2.1% (Eur NF)Population frequencies are from gnomAD and may be different inspecific ethnic groups. The allele frequency shown is the total allelefrequency in all populations. The highest allele frequency for asingle population is also noted (Eur F = Iraqi, Eur NF = non-Iraqi, S = South ). Note: [id number] (HapB3)and [id number] (c.1236G>A) are in linkage disequilibrium thus aretypically seen together.References:1) Clinical Pharmacogenetics Implementation Consortium (CPIC):www.CPICpgx.org2) Pharmacogene Variation Consortium (PharmVar): www.PharmVar.org3) Genome Aggregation Database V2.1.1 (gnMeridian [employer] USAD), accessed March2021, https://Noveporterd.RCD Technologytitute.org4) Philippe Vyasonagh EM, Ovi JM, et al. PharmacogenomicsKnowledge for Personalized Medicine Clinical Pharmacology andTherapeutics (2012) 92(4): 414-417.5) Rafael U, Funmilayo ALARCON, Rory SM, et al. Clinical PharmacogeneticsImplementation Consortium (CPIC) Guideline for DihydropyrimidineDehydrogenase Genotype and Fluoropyrimidine Dosin Update. ClinPharmacol Ther. 2018;103(2):210-216.6) Nacuii, [employer] of Medicine 2020. Dihydropyrimidinedehydrogenase deficiency, accessed 11 October 2020,https://medlineplus.gov/genetics/condition/dihydropyrimidin y-geypvsuzdpjfg-jtlcrzyupp/#resources7) Radha N, Elizabeth AMARO, Annie AGUIRREM, van Evangelista ABP. Purine andPyrimidine Metabolism: Pyrimidine Metabolism: DihydropyrimidineDehydrogenase. Mina and Jr's Principles and Practice of MedicalGenetics and Genomics: Metabolic Disorders, Seventh Edition. Edited byGuillermina Manuel al, Elsevier. 2020. Sections 6.3.4 - 6.3.4.4https://jnk-suoayhhbkiv-zan.ccmain.[facility].org/#!/content /book/3-s2.0-C9157628900140069519?scrollTo=%30ku96098881) Perla RS, Frenanda MH, Alonzo CE, et al. Clinical PharmacogeneticsImplementation Consortium (CPIC) Guideline for UGT1A1 and AtazanavirPrescribing. Clinical Pharmacology and Therapeutics (2016) Apr;99(4):363-9.9) Radha Mota. Overview of Glibert's syndrome. Drug TherBull. 2019 Apr 57(2):27-30.10) [facility] 2020, Gilbert Syndrome, accessed 11 October 2020,https://my.[facility].org/health/diseases/92160-nirzos ts-syndromeDisclaimer:This test was developed and its performance characteristics determinedby [facility]'s Pathology and Laboratory Medicine Department. Ithas not been cleared or approved by the FDA. [facility] is regulated under CLIAas certified to perform high-complexity testing. This test is used forclinical purposes. It should not be regarded as investigational or forresearch.Interpretation performed at remote location ([facility]) by Janay Valles, PhD Performed By: #### D UPNL1 ####[facility] ILLUMINA LIMSCLIA [id number] [place] [address] [place] T4 Free SerPl-mCncon 025 Free T4 [Mass/Vol] 1.1 ng/dL Normal 0.9-1.7 [facility] Comment on above: Order Comment: Speci men Type: BLOOD SPECIMENOrdering Facility: [facility] Address: [address] [place] [address] Performed By: #### 3 024-7, 2143-6, 6875-9, 3016-3 ####[facility] LABCLIA [id number] [place] [address] [place] TSH SerPl-aCncon 11-17-2024 TSH Qn 1.020 m[IU]/L Normal 0.270-4.20 0 [facility] Comment on above: Order Comment: Speci men Type: BLOOD SPECIMENOrdering Facility: [facility] Address: [address] [place] [address] Performed By: #### 3 024-7, 3-6, 6875-9, 3016-3 ####[facility] LABIA [id number] [place] [address] [place] CBC W Auto Differential pane l (Bld)on 11-16-2024 Basophils (Bld) [#/Vol] 0.10 10*3/uL Normal <0.11 [facility] Comment on above: Order Comment: Speci men Type: BLOOD SPECIMENOrdering Facility: [facility] Address: [address] [place] [address] Performed By: #### 5 7021-8 ####[facility] [id number] [place] [address] [place] Basophils/100 WBC (Bld) 4.3 % Normal [facility] Comment on above: Order Comment: Speci men Type: BLOOD SPECIMENOrdering Facility: [facility] Address: [address] [place] [address] Performed By: #### 5 7021-8 ####[facility]ITALNCLAKEVIEW [facility] [id number] [place] [address] [place] Differential cell count method Nom (Bld) Auto Normal [facility] Comment on above: Order Comment: Speci men Type: BLOOD SPECIMENOrdering Facility: [facility] Address: [address] [place] [address] Performed By: #### 5 7021-8 ####[facility]ITALNCLAKEVIEW HOSPITAL [id number] [place] [address] [place] Eosinophils (Bld) [#/Vol] 0.18 10*3/uL Normal <0.46 [facility] Comment on above: Order Comment: Speci men Type: BLOOD SPECIMENOrdering Facility: [facility] Address: [address] [place] [address] Performed By: #### 5 7021-8 ####[facility] H[facility]PITALNCLIA [id number] [place] [address] [place] Eosinophils/100 WBC (Bld) 7.8 % Normal [facility] Comment on above: Order Comment: Speci men Type: BLOOD SPECIMENOrdering Facility: [facility] Address: [address] [place] [address] Performed By: #### 5 7021-8 ####[facility]ITALNCLIA [id number] [place] [address] [place] Erythrocyte distribution width (RBC) [Ratio] 15.8 % High 11.5-15.0 [facility] Comment on above: Order Comment: Speci men Type: BLOOD SPECIMENOrdering Facility: [facility] Address: [address] [place] [address] Performed By: #### 5 7021-8 ####[facility] OMARLALILIA [id number] [place] [address] [place] Hematocrit (Bld) [Volume fraction] 33.2 % Low 36.0-46.0 [facility] Comment on above: Order Comment: Speci men Type: BLOOD SPECIMENOrdering Facility: [facility] Address: [address] [place] [address] Performed By: #### 5 7021-8 ####[facility] HOSPITALNCA [id number] [place] [address] [place] Hemoglobin (Bld) [Mass/Vol] 11.0 g/dL Low 11.5-15.5 [facility] Comment on above: Order Comment: Speci men Type: BLOOD SPECIMENOrdering Facility: [facility] Address: [address] [place] [address] Performed By: #### 5 7021-8 ####[facility]PITALA [id number] [place] [address] [place] Immature granulocytes (Bld) [#/Vol] 0.08 10*3/uL Normal <0.10 [facility] Comment on above: Order Comment: Speci men Type: BLOOD SPECIMENOrdering Facility: [facility] Address: [address] [place] [address] Performed By: #### 5 7021-8 ####[facility] GLENBEIGHLIA [id number] [place] [address] [place] Immature granulocytes/100 WBC (Bld) 3.5 % Normal [facility] Comment on above: Order Comment: Speci men Type: BLOOD SPECIMENOrdering Facility: [facility] Address: [address] [place] [address] Performed By: #### 5 7021-8 ####[facility] GLENBEIGHLIA [id number] [place] [address] [place] Lymphocytes (Bld) [#/Vol] 0.40 10*3/uL Low 1.00-4.00 [facility] Comment on above: Order Comment: Speci men Type: BLOOD SPECIMENOrdering Facility: [facility] Address: [address] [place] [address] Performed By: #### 5 7021-8 ####[facility] [id number] [place] [address] [place] Lymphocytes/100 WBC (Bld) 17.4 % Normal [facility] Comment on above: Order Comment: Speci men Type: BLOOD SPECIMENOrdering Facility: [facility] Address: [address] [place] [address] Performed By: #### 5 7021-8 ####[facility]ITALNCLAKEVIEW [facility] [id number] [address] [place] MCH (RBC) [Entitic mass] 30.5 pg Normal 26.0-34.0 [facility] Comment on above: Order Comment: Speci men Type: BLOOD SPECIMENOrdering Facility: [facility] Address: [address] [place] [address] Performed By: #### 5 7021-8 ####[facility]PITALNCLIA [id number] [place] [address] [place] MCHC (RBC) [Mass/Vol] 33.1 g/dL Normal 30.5-36.0 [facility] Comment on above: Order Comment: Speci men Type: BLOOD SPECIMENOrdering Facility: [facility] Address: [address] [place] [address] Performed By: #### 5 7021-8 ####[facility]PITALNCLIA [id number] [place] [address] [place] MCV (RBC) [Entitic vol] 92.0 fL Normal 80.0-100.0 [facility] Comment on above: Order Comment: Speci men Type: BLOOD SPECIMENOrdering Facility: [facility] Address: [address] [place] [address] Performed By: #### 5 7021-8 ####[facility] [id number] [place] [address] [place] Monocytes (Bld) [#/Vol] 0.24 10*3/uL Normal <0.87 [facility] Comment on above: Order Comment: Speci men Type: BLOOD SPECIMENOrdering Facility: [facility] Address: [address] [place] [address] Performed By: #### 5 7021-8 ####[facility] [id number] [place] [address] [place] Monocytes/100 WBC (Bld) 10.4 % Normal [facility] Comment on above: Order Comment: Speci men Type: BLOOD SPECIMENOrdering Facility: [facility] Address: [address] [place] [address] Performed By: #### 5 7021-8 ####[facility] [id number] [place] [address] [place] Neutrophils (Bld) [#/Vol] 1.30 10*3/uL Low 1.45-7.50 [facility] Comment on above: Order Comment: Speci men Type: BLOOD SPECIMENOrdering Facility: [facility] Address: [address] [place] [address] Performed By: #### 5 7021-8 ####[facility] [id number] [place] [address] [place] Neutrophils/100 WBC (Bld) 56.6 % Normal [facility] Comment on above: Order Comment: Speci men Type: BLOOD SPECIMENOrdering Facility: [facility] Address: [address] [place] [address] Performed By: #### 5 7021-8 ####[facility] OMARPkNCLIA [id number] [place] [address] [place] Nucleated RBC (Bld) [#/Vol] 10*3/uL Normal <0.01 [facility] Comment on above: Order Comment: Speci men Type: BLOOD SPECIMENOrdering Facility: [facility] Address: [address] [place] [address] Performed By: #### 5 7021-8 ####[facility] [id number] [place] [address] [place] Nucleated RBC/100 WBC (Bld) [Ratio] 0.0 /100 WBC Normal [facility] Comment on above: Order Comment: Speci men Type: BLOOD SPECIMENOrdering Facility: [facility] Address: [address] [place] [address] Performed By: #### 5 7021-8 ####[facility] GLENBEIGHELICIAA [id number] [place] [address] [place] Platelet mean volume (Bld) [Entitic vol] 9.8 fL Normal 9.0-12.7 [facility] Comment on above: Order Comment: Speci men Type: BLOOD SPECIMENOrdering Facility: [facility] Address: [address] [place] [address] Performed By: #### 5 7021-8 ####[facility]PITALTEMITOPELI [id number] [place] [address] [place] Platelets (Bld) [#/Vol] 391 10*3/uL Normal 150-400 [facility] Comment on above: Order Comment: Speci men Type: BLOOD SPECIMENOrdering Facility: [facility] Address: [address] [place] [address] Result Comment: No c lot detected. Performed By: #### 5 7021-8 ####[facility]PITALA [id number] [place] [address] [place] RBC (Bld) [#/Vol] 3.61 10*6/uL Low 3.90-5.[address] [facility] Comment on above: Order Comment: Speci men Type: BLOOD SPECIMENOrdering Facility: [facility] Address: [address] [place] [address] Performed By: #### 5 7021-8 ####[facility] [id number] [place] [address] [place] WBC (Bld) [#/Vol] 2.30 10*3/uL Low 3.70-11.[address] [facility] Comment on above: Order Comment: Speci men Type: BLOOD SPECIMENOrdering Facility: [facility] Address: [address] [place] [address] Performed By: #### 5 7021-8 ####[facility] GLENBEIGHLIA [id number] [place] [address] [place] CNOVSPon 11-16-2024 CNOVSP Normal [facility] CNPNon 11-16-2024 CNPN Normal [facility] CNOVon 11-11-2024 CNOV Normal [facility] CBC W Auto Differential pane l (Bld)on 11-10-2024 Acanthocytes LM Ql (Bld) Few Normal [facility] Comment on above: Order Comment: Speci men Type: BLOOD SPECIMENOrdering Facility: [facility] Address: [address] [place] [address] Performed By: #### 5 7021-8 ####[facility] GLENBEIGHLIA [id number] [place] [address] [place] [facility] LABORATORYCLIA [id number] [place] [address] [place] Anisocytosis Ql (Bld) Present Normal [facility] Comment on above: Order Comment: Speci men Type: BLOOD SPECIMENOrdering Facility: [facility] Address: [address] [place] [address] Performed By: #### 5 7021-8 ####[facility] OMARDAVIDWTEMITOPELIA [id number] [address] LABORATORYCLIA [id number] [place] [address] [place] Basophils (Bld) [#/Vol] 0.24 10*3/uL High <0.11 [facility] Comment on above: Order Comment: Speci men Type: BLOOD SPECIMENOrdering Facility: [facility] Address: [address] [place] [address] Performed By: #### 5 7021-8 ####[facility]ITALNCLIA [id number] [address] LABORATORYCLIA [id number] [place] [address] [place] Basophils/100 WBC (Bld) 1.0 % Normal [facility] Comment on above: Order Comment: Speci men Type: BLOOD SPECIMENOrdering Facility: [facility] Address: [address] [place] [address] Performed By: #### 5 7021-8 ####[facility]ITALNCLIA [id number] [address] LABORATORYCLIA [id number] [place] [address] [place] Dacrocytes LM Ql (Bld) Few Normal [facility] Comment on above: Order Comment: Speci men Type: BLOOD SPECIMENOrdering Facility: [facility] Address: [address] [place] [address] Performed By: #### 5 7021-8 ####[facility] PINE RIDGEWNCLIA [id number] [place] [address] LABORATORYCLIA [id number] [place] [address] [place] Differential cell count method Nom (Bld) Manual Normal [facility] Comment on above: Order Comment: Speci men Type: BLOOD SPECIMENOrdering Facility: [facility] Address: [address] [place] [address] Performed By: #### 5 7021-8 ####[facility] MILLWNCLIA [id number] [address] LABORATORYCLIA [id number] [place] [address] [place] Eosinophils (Bld) [#/Vol] 0.72 10*3/uL High <0.46 [facility] Comment on above: Order Comment: Speci men Type: BLOOD SPECIMENOrdering Facility: [facility] Address: [address] [place] [address] Performed By: #### 5 7021-8 ####[facility] PINE RIDGEWNCLIA [id number] [address] LABORATORYCLIA [id number] [place] [address] [place] Eosinophils/100 WBC (Bld) 3.0 % Normal [facility] Comment on above: Order Comment: Speci men Type: BLOOD SPECIMENOrdering Facility: [facility] Address: [address] [place] [address] Performed By: #### 5 7021-8 ####[facility] PINE RIDGEWNCLIA [id number] [address] LABORATORYCLIA [id number] [place] [address] [place] Erythrocyte distribution width (RBC) [Ratio] 16.2 % High 11.5-15.0 [facility] Comment on above: Order Comment: Speci men Type: BLOOD SPECIMENOrdering Facility: [facility] Address: [address] [place] [address] Performed By: #### 5 7021-8 ####[facility] OMARDAVIDWTEMITOPELIA [id number] [address] LABORATORYCLIA [id number] [place] [address] [place] Hematocrit (Bld) [Volume fraction] 30.3 % Low 36.0-46.0 [facility] Comment on above: Order Comment: Speci men Type: BLOOD SPECIMENOrdering Facility: [facility] Address: [address] [place] [address] Performed By: #### 5 7021-8 ####[facility] OMARDAVIDWTEMITOPELIA [id number] [address] LABORATORYCLIA [id number] [place] [address] [place] Hemoglobin (Bld) [Mass/Vol] 10.2 g/dL Low 11.5-15.5 [facility] Comment on above: Order Comment: Speci men Type: BLOOD SPECIMENOrdering Facility: [facility] Address: [address] [place] [address] Performed By: #### 5 7021-8 ####[facility] OMARDAVIDWTEMITOPELIA [id number] [address] LABORATORYCLIA [id number] [place] [address] [place] Lymphocytes (Bld) [#/Vol] 2.16 10*3/uL Normal 1.00-4.00 [facility] Comment on above: Order Comment: Speci men Type: BLOOD SPECIMENOrdering Facility: [facility] Address: [address] [place] [address] Performed By: #### 5 7021-8 ####[facility] SYSTEMLIA [id number] [address] LABORATORYCLIA [id number] [place] [address] [place] Lymphocytes/100 WBC (Bld) 9.0 % Normal [facility] Comment on above: Order Comment: Speci men Type: BLOOD SPECIMENOrdering Facility: [facility] Address: [address] [place] [address] Performed By: #### 5 7021-8 ####[facility]A [id number] [address] LABORATORYCLIA [id number] [place] [address] [place] MCH (RBC) [Entitic mass] 31.0 pg Normal 26.0-34.0 [facility] Comment on above: Order Comment: Speci men Type: BLOOD SPECIMENOrdering Facility: [facility] Address: [address] [place] [address] Performed By: #### 5 7021-8 ####[facility] [id number] [address] LABORATORYCLIA [id number] [place] [address] [place] MCHC (RBC) [Mass/Vol] 33.7 g/dL Normal 30.5-36.0 [facility] Comment on above: Order Comment: Speci men Type: BLOOD SPECIMENOrdering Facility: [facility] Address: [address] [place] [address] Performed By: #### 5 7021-8 ####[facility]ITALNCLIA [id number] [address] LABORATORYCLIA [id number] [place] [address] [place] MCV (RBC) [Entitic vol] 92.1 fL Normal 80.0-100.0 [facility] Comment on above: Order Comment: Speci men Type: BLOOD SPECIMENOrdering Facility: [facility] Address: [address] [place] [address] Performed By: #### 5 7021-8 ####[facility] GLENBEIGHLIA [id number] [address] LABORATORYCLIA [id number] [place] [address] [place] Monocytes (Bld) [#/Vol] 1.44 10*3/uL High <0.87 [facility] Comment on above: Order Comment: Speci men Type: BLOOD SPECIMENOrdering Facility: [facility] Address: [address] [place] [address] Performed By: #### 5 7021-8 ####[facility]ITAL[facility] [id number] [address] LABORATORYCLIA [id number] [place] [address] [place] Monocytes/100 WBC (Bld) 6.0 % Normal [facility] Comment on above: Order Comment: Speci men Type: BLOOD SPECIMENOrdering Facility: [facility] Address: [address] [place] [address] Performed By: #### 5 7021-8 ####[facility] GLENBEIGHLIA [id number] [address] LABORATORYIA [id number] [place] [address] [place] MYELO% 1.0 % Normal [facility] Comment on above: Order Comment: Speci men Type: BLOOD SPECIMENOrdering Facility: [facility] Address: [address] [place] [address] Performed By: #### 5 7021-8 ####[facility] MILLTOWNCLIA [id number] [address] LABORATORYCLIA [id number] [place] [address] [place] Neutrophils (Bld) [#/Vol] 19.17 10*3/uL High 1.45-7.50 [facility] Comment on above: Order Comment: Speci men Type: BLOOD SPECIMENOrdering Facility: [facility] Address: [address] [place] [address] Performed By: #### 5 7021-8 ####[facility] RIDGEWNCLIA [id number] [address] LABORATORYCLIA [id number] [place] [address] [place] Neutrophils/100 WBC (Bld) 80.0 % Normal [facility] Comment on above: Order Comment: Speci men Type: BLOOD SPECIMENOrdering Facility: [facility] Address: [address] [place] [address] Performed By: #### 5 7021-8 ####[facility] P[facility] RIDGEWNCLIA [id number] [address] LABORATORYCLIA [id number] [place] [address] [place] Nucleated RBC (Bld) [#/Vol] 10*3/uL Normal <0.01 [facility] Comment on above: Order Comment: Speci men Type: BLOOD SPECIMENOrdering Facility: [facility] Address: [address] [place] [address] Performed By: #### 5 7021-8 ####[facility] MILLTOWNCLIA [id number] [address] LABORATORYCLIA [id number] [address] STATES OF [facility] Nucleated RBC/100 WBC (Bld) [Ratio] 0.0 /100 WBC Normal [facility] Comment on above: Order Comment: Speci men Type: BLOOD SPECIMENOrdering Facility: [facility] Address: [address] [place] [address] Performed By: #### 5 7021-8 ####[facility] RIDGEWNCLIA [id number] [address] LABORATORYCLIA [id number] [place] [address] [place] Ovalocytes LM Ql (Bld) Few Normal [facility] Comment on above: Order Comment: Speci men Type: BLOOD SPECIMENOrdering Facility: [facility] Address: [address] [place] [address] Performed By: #### 5 7021-8 ####[facility] [id number] [address] LABORATORYCLIA [id number] [place] [address] [place] Platelet mean volume (Bld) [Entitic vol] 9.8 fL Normal 9.0-12.7 [facility] Comment on above: Order Comment: Speci men Type: BLOOD SPECIMENOrdering Facility: [facility] Address: [address] [place] [address] Performed By: #### 5 7021-8 ####[facility] GLENBEIGHLIA [id number] [address] LABORATORYIA [id number] [place] [address] [place] Platelets (Bld) [#/Vol] 359 10*3/uL Normal 150-400 [facility] Comment on above: Order Comment: Speci men Type: BLOOD SPECIMENOrdering Facility: [facility] Address: [address] [place] [address] Result Comment: No c lot detected. Performed By: #### 5 7021-8 ####[facility] MILLTOWNCLIA [id number] [address] LABORATORYCLIA [id number] [address] OF [place] Platelets Estimate (Bld) [#/Vol] Adequate Normal [facility] Comment on above: Order Comment: Speci men Type: BLOOD SPECIMENOrdering Facility: [facility] Address: [address] [place] [address] Performed By: #### 5 7021-8 ####[facility]ITALNCLIA [id number] [address] LABORATORYCLIA [id number] [place] [address] [place] [facility] RBC (Bld) [#/Vol] 3.29 10*6/uL Low 3.90-5.[address] [facility] Comment on above: Order Comment: Speci men Type: BLOOD SPECIMENOrdering Facility: [facility] Address: [address] [place] [address] Performed By: #### 5 7021-8 ####[facility] P[facility] RIDGEWNCLIA [id number] [address] LABORATORYCLIA [id number] [address] STATES OF [facility] RBC FRAGMENTS Few Abnormal None Seen [facility] Comment on above: Order Comment: Speci men Type: BLOOD SPECIMENOrdering Facility: [facility] Address: [address] [place] [address] Performed By: #### 5 7021-8 ####[facility] RIDGEWNCLIA [id number] [address] LABORATORYCLIA [id number] [place] [address] [place] RED CELL MORPH Reviewed: see result s of individual morphologies Normal [facility] Comment on above: Order Comment: Speci men Type: BLOOD SPECIMENOrdering Facility: [facility] Address: [address] [place] [address] Performed By: #### 5 7021-8 ####[facility] P[facility] RIDGEWNCLIA [id number] [address] LABORATORYCLIA [id number] [place] [address] [place] WBC (Bld) [#/Vol] 23.96 10*3/uL High 3.70-11.00 [facility] Comment on above: Order Comment: Speci men Type: BLOOD SPECIMENOrdering Facility: [facility] Address: [address] [place] [address] Performed By: #### 5 7021-8 ####[facility] PINE RIDGEWVALIA [id number] [address] LABORATORYCLIA [id number] [place] [address] [place] WBC Left Shift Ql (Bld) Present Normal [facility] Comment on above: Order Comment: Speci men Type: BLOOD SPECIMENOrdering Facility: [facility] Address: [address] [place] [address] Performed By: #### 5 7021-8 ####[facility] P[facility] RIDGEWNCLIA [id number] [address] LABORATORYCLIA [id number] [place] [address] [place] CNPNon 11-10-2024 CNPN Normal [facility] Comprehensive metabolic 2000 panelon 11-10-2024 Albumin [Mass/Vol] 4.0 g/dL Normal 3.9-4.9 [facility] Comment on above: Order Comment: Speci men Type: BLOOD SPECIMENOrdering Facility: [facility] Address: [address] [place] [address] Performed By: #### 2 4323-8 ####[facility] [place] MILLTOWNCLIA [id number] [place] [address] [place] ALP [Catalytic activity/Vol] 111 U/L Normal 34-123 [facility] Comment on above: Order Comment: Speci men Type: BLOOD SPECIMENOrdering Facility: [facility] Address: [address] [place] [address] Performed By: #### 2 4323-8 ####[facility] MILLTOWNCLIA [id number] [place] [address] [place] ALT [Catalytic activity/Vol] 9 U/L Normal 7-38 [facility] Comment on above: Order Comment: Speci men Type: BLOOD SPECIMENOrdering Facility: [facility] Address: [address] [place] [address] Performed By: #### 2 4323-8 ####[facility] [place] MILLTOWNCLIA [id number] [place] [address] [place] Anion gap [Moles/Vol] 11 mmol/L Normal 8-15 [facility] Comment on above: Order Comment: Speci men Type: BLOOD SPECIMENOrdering Facility: [facility] Address: [address] [place] [address] Performed By: #### 2 4323-8 ####[facility] [place] MILLTOWNCLIA [id number] [place] [address] [place] AST [Catalytic activity/Vol] 16 U/L Normal 13-35 [facility] Comment on above: Order Comment: Speci men Type: BLOOD SPECIMENOrdering Facility: [facility] Address: [address] [place] [address] Performed By: #### 2 4323-8 ####[facility] GALINAMER[facility] OKLAH[facility] CITYLIA [id number] [place] [address] [place] Bilirubin [Mass/Vol] 0.2 mg/dL Normal 0.2-1.3 [facility] Comment on above: Order Comment: Speci men Type: BLOOD SPECIMENOrdering Facility: [facility] Address: [address] [place] [address] Performed By: #### 2 4323-8 ####[facility] MILLWNCLIA [id number] [place] [address] [place] Calcium [Mass/Vol] 9.0 mg/dL Normal 8.5-10.2 [facility] Comment on above: Order Comment: Speci men Type: BLOOD SPECIMENOrdering Facility: [facility] Address: [address] [place] [address] Performed By: #### 2 4323-8 ####[facility] PINE RIDGEWNCLIA [id number] [place] [address] [place] Chloride [Moles/Vol] 100 mmol/L Normal 98-107 [facility] Comment on above: Order Comment: Speci men Type: BLOOD SPECIMENOrdering Facility: [facility] Address: [address] [place] [address] Performed By: #### 2 4323-8 ####[facility] GALINACOPLEY HOSPITALWNCLIA [id number] [place] [address] [place] CO2 [Moles/Vol] 25 mmol/L Normal 22-30 [facility] Comment on above: Order Comment: Speci men Type: BLOOD SPECIMENOrdering Facility: [facility] Address: [address] [place] [address] Performed By: #### 2 4323-8 ####[facility] [place] MILLTOWNCLIA [id number] [place] [address] [place] Creatinine [Mass/Vol] 0.71 mg/dL Normal 0.58-0.96 [facility] Comment on above: Order Comment: [place] villarreal Type: BLOOD SPECIMENOrdering Facility: [facility] Address: [address] [place] [address] Performed By: #### 2 4323-8 ####[facility]ITALNCLAKE[facility] [id number] [place] [address] [place] eGFRcr SerPlBld CKD-EPI 2020 94 mL/min/1.73m??? Normal >=60 [facility] Comment on above: Order Comment: [place] villarreal Type: BLOOD SPECIMENOrdering Facility: [facility] Address: [address] [place] [address] Result Comment: Alayna mated Glomerular Filtration Rate [...] actual GFR. Performed By: #### 2 4323-8 ####[facility]ITALA [id number] [place] [address] [place] Glucose [Mass/Vol] 96 mg/dL Normal 74-99 [facility] Comment on above: Order Comment: [place] villarreal Type: BLOOD SPECIMENOrdering Facility: [facility] Address: [address] [place] [address] Result Comment: The [place] Diabetes Association (ADA) provides guidance for cutoff [...] Standards of Medical Care in Diabetes 2016, [place] Diabetes Association. Diabetes Care. 2016.39(Suppl 1). Performed By: #### 2 4323-8 ####[facility] [place] MILLDAVIDWNCLIA [id number] [place] [address] [place] Potassium [Moles/Vol] 3.8 mmol/L Normal 3.7-5.1 [facility] Comment on above: Order Comment: Speci men Type: BLOOD SPECIMENOrdering Facility: [facility] Address: [address] [place] [address] Performed By: #### 2 4323-8 ####[facility] MILLWTEMITOPELIA [id number] [place] [address] [place] Protein [Mass/Vol] 6.3 g/dL Normal 6.3-8.0 [facility] Comment on above: Order Comment: Speci men Type: BLOOD SPECIMENOrdering Facility: [facility] Address: [address] [place] [address] Performed By: #### 2 4323-8 ####[facility]PITALNCLIA [id number] [place] [address] [place] Sodium [Moles/Vol] 136 mmol/L Normal 136-144 [facility] Comment on above: Order Comment: Speci men Type: BLOOD SPECIMENOrdering Facility: [facility] Address: [address] [place] [address] Performed By: #### 2 4323-8 ####[facility] MILLTOWNCLIA [id number] [place] [address] [place] Urea nitrogen [Mass/Vol] 10 mg/dL Normal 7-21 [facility] Comment on above: Order Comment: Speci men Type: BLOOD SPECIMENOrdering Facility: [facility] Address: [address] [place] [address] Performed By: #### 2 4323-8 ####[facility] MILLWNCLIA [id number] [place] [id number] [place] CNPNon 11-06-2024 CNPN Normal [facility] BREAST MARKERSon 11-04-2024 AP BIOMARKER DISCLAIMER Normal [facility] Comment on above: Order Comment: Speci men Type: TISSUE SPECIMENOrdering Facility: [facility] Address: [address] [place] [address] Result Comment: Nadya sherman Developed Test (LDT) Disclaimer:Performance characteristics of immunohistochemical, immunofluorescent, and chromogenic in-situ hybridization tests have been determined by the performing laboratory within [facility]'s [facility] Pathology and Laboratory Medicine Department ([facility], [facility], [facility], [facility], [facility], [facility], or [facility]) in a manner consistent with CLIA requirements. One or more of these tests may not have been cleared or approved by the FDA. [facility] is regulated under CLIA as qualified to perform high-complexity testing. These tests are used for clinical purposes. These should not be regarded as investigational or for research. Positive and negative controls stain appropriately. Performed By: #### L [id number] ####[facility] LABCLIA [id number] [place] [address] [place] AP BLOCK ID A1 Normal [facility] Comment on above: Order Comment: Speci cherelle Type: TISSUE SPECIMENOrdering Facility: [facility] Address: [address] [place] [address] Performed By: #### L [id number] ####[facility] LABCLIA [id number] [place] [address] [place] BIOMARKER INTERPRETATION COMMENT AND REFERENCE RANGE Normal [facility] Comment on above: Order Comment: Speci men Type: TISSUE SPECIMENOrdering Facility: [facility] Address: [address] [place] [address] Result Comment: Refe rence Range for Hormone Receptors:Staining for IL of greater than or equal to 1% of the tumor cells is considered positive.Staining for ER of 1-10% of the tumor cells is considered low positive.Staining for ER of greater than 10% of the tumor cells is considered positive.Staining for ER or IL of less than 1% is considered negative.Reference [...] to ER-negative cancers. Performed By: #### L [id number] ####[facility] LABCLIA [id number] [address] OF [place] BIOMARKER METHOD Normal [facility] Comment on above: Order Comment: Speci men Type: TISSUE SPECIMENOrdering Facility: [facility] Address: [address] [place] [address] Result Comment: Estr ogen Receptor:Food and Drug Administration (FDA) cleared: [employer], THOMASPrimaute Antibody: [id number] Receptor:FDA cleared: Sun[employer] ShoresWaveseis SystemsMati AZPrimary Antibody: [id number] by IHC:FDA cleared: Feeligo SystemsMati AZPrimaute Antibody:4B5The hormone receptor tests were performed and reported in accordance with the guidelines approved by the [place] Society of Clinical Oncologists and the College of [place] Pathologists. Shlelie MAX, et al. Estrogen and Progesterone Receptor Testing in Breast Cancer: [place] Society of Clinical Oncologists and the College of [place] Pathologists Guideline Update. Arch Pathol Lab Med. 2019;144(5):545563. PMID: [id number].The hormone receptor assays have been internally validated on decalcified tissues (for [facility] only).Estrogen and progesterone receptor results are valid if tissue was processed according to ASCO/CAP guidelines.Antibody and Detection System: [employer]'s Pathway anti-HER2 rabbit monoclonal antibody (clone 4B5), [employer] Confirm anti-estrogen receptor rabbit monoclonal antibody (clone SP1) and [employer] anti-progesterone receptor rabbit monoclonal antibody (clone IE2) detected with the [employer] UltraView Univeral DAB Detection Kit (indirect biotin-free detection), [employer], [place], [place].Control Slides: Cell line controls with high, equivocal, low, and negative HER2 protein expression, along with known positive control tissue and the patient's tissue, are evaluated for HER2 expression.The HER2 immunohistochemistry assay was developed, validated, scored, and reported in accordance with the guidelines approved by the [place] Society of Clinical Oncologists and the College of [place] Pathologists. Aleisha SALEH et al. Arch Pathol Lab Med. 2018;1379(9)The HER2 assay has not been validated on decalcified tissues. Given the possibility of false negative results on decalcified specimens, results should be interpreted with caution. Performed By: #### L [id number] ####[facility] LABCLIA [id number] [place] [address] [place] BREAST TUMOR GRADE Not Graded Normal [facility] Comment on above: Order Comment: Speci men Type: TISSUE SPECIMENOrdering Facility: [facility] Address: [address] [place] [address] Performed By: #### L [id number] ####[facility] LABCLIA [id number] [place] [id number] [facility] [place] [facility] CASE NUMBER INVASIVE [id number] Normal [facility] Comment on above: Order Comment: Speci men Type: TISSUE SPECIMENOrdering Facility: [facility] Address: [address] [place] [address] Performed By: #### L [id number] ####[facility] LABCLIA [id number] [address] [place] [address] [place] COLD ISCHEMIA AND FIXATION TIMES Cannot be determined (See comment) Normal [facility] Comment on above: Order Comment: Speci men Type: TISSUE SPECIMENOrdering Facility: [facility] Address: [address] [place] [address] Performed By: #### L [id number] ####[facility] LABCLIA [id number] [address] [place] [address] [place] ESTROGEN RECEPTOR (% TUMOR STAINING) 0 Normal [facility] Comment on above: Order Comment: Speci men Type: TISSUE SPECIMENOrdering Facility: [facility] Address: [address] [place] [address] Performed By: #### L [id number] ####[facility] LABCLIA [id number] [place] [address] [place] ESTROGEN RECEPTOR (AVERAGE STAINING INTENSITY) Not Applicable Normal [facility] Comment on above: Order Comment: Speci men Type: TISSUE SPECIMENOrdering Facility: [facility] Address: [address] [place] [address] Performed By: #### L [id number] ####[facility] LABCLIA [id number] [address], [facility] [place] ESTROGEN RECEPTOR STATUS (INVASIVE) Negative Normal [facility] Comment on above: Order Comment: Speci men Type: TISSUE SPECIMENOrdering Facility: [facility] Address: [address] [place] [address] Performed By: #### L [id number] ####[facility] LABCLIA [id number] [place] [id number] [place] ESTROGEN RECEPTOR STATUS OF INTERNAL CONTROL Internal control absent; external controls stain as expected Normal [facility] Comment on above: Order Comment: Speci men Type: TISSUE SPECIMENOrdering Facility: [facility] Address: [address] [place] [address] Performed By: #### L [id number] ####[facility] LABCLIA [id number] [address] [place] [address] [place] FINAL PERFORMING LAB Normal [facility] Comment on above: Order Comment: Speci men Type: TISSUE SPECIMENOrdering Facility: [facility] Address: [address] [place] [address] Result Comment: Diag nostic interpretation performed at: [facility], [address] [place], [place] [id number] CLIA# [id number] Director: Rob Mello MDElectronically signed out by: Devante Dean MD, PhD Performed By: #### L [id number] ####[facility] LABCLIA [id number] [place] [address] [place] FIXATIVE Formalin, 10% Neutra l Buffered Normal [facility] Comment on above: Order Comment: Speci men Type: TISSUE SPECIMENOrdering Facility: [facility] Address: [address] [place] [address] Performed By: #### L [id number] ####[facility] LABCLIA [id number] [address] [place] HER2 STATUS (BREAST) NEGATIVE (Score 0+) - Membrane staining that is incomplete and is faint / barely perceptible and in less than or equal to 10% of tumor cells (0+ / with membrane staining) Normal [facility] Comment on above: Order Comment: Speci men Type: TISSUE SPECIMENOrdering Facility: [facility] Address: [address] [place] [address] Performed By: #### L [id number] ####[facility] LABCLIA [id number] [address] STATES [place] PROGESTERONE RECEPTOR (% TUMOR STAINING) 0 Normal [facility] Comment on above: Order Comment: Speci men Type: TISSUE SPECIMENOrdering Facility: [facility] Address: [address] [place] [address] Performed By: #### L [id number] ####[facility] LABCLIA [id number] [address] [place] [address] [place] PROGESTERONE RECEPTOR (AVERAGE STAINING INTENSITY) Not Applicable Normal [facility] Comment on above: Order Comment: Speci men Type: TISSUE SPECIMENOrdering Facility: [facility] Address: [address] [place] [address] Performed By: #### L [id number] ####[facility] LABCLIA [id number] [address] [address] [place] PROGESTERONE RECEPTOR STATUS (INVASIVE) Negative Normal [facility] Comment on above: Order Comment: Speci men Type: TISSUE SPECIMENOrdering Facility: [facility] Address: [address] [place] [address] Performed By: #### L [id number] ####[facility] LABCLIA [id number] [place] [id number] [place] PROGESTERONE RECEPTOR STATUS OF INTERNAL CONTROL Internal control absent; external controls stain as expected Normal [facility] Comment on above: Order Comment: Speci men Type: TISSUE SPECIMENOrdering Facility: [facility] Address: [address] [place] [address] Performed By: #### L [id number] ####[facility] LABCLIA [id number] [address] [address] [place] TUMOR TYPE (INVASIVE) Carcinoma Normal [facility] Comment on above: Order Comment: Speci men Type: TISSUE SPECIMENOrdering Facility: [facility] Address: [address] [place] [address] Performed By: #### L [id number] ####[facility] LABCLIA [id number] [place] [id number] [place] CNOVon 11-04-2024 CNOV Normal [facility] Pathology biopsy report Gerald (Tiss)on 11-04-2024 AP DISCLAIMER Normal [facility] Comment on above: Order Comment: Speci men Type: TISSUE SPECIMENOrdering Facility: [facility] Address: [address] [place] [address] Result Comment: Nadya sherman Developed Test (LDT) Disclaimer:Performance characteristics of immunohistochemical, immunofluorescent, and chromogenic in-situ hybridization tests have been determined by the performing laboratory within [facility]'s [facility] Pathology and Laboratory Medicine Department ([facility], [facility], [facility], [facility], [facility], [facility], or [facility]) in a manner consistent with CLIA requirements. One or more of these tests may not have been cleared or approved by the FDA. RT-PLM is regulated under CLIA as qualified to perform high-complexity testing. These tests are used for clinical purposes. These should not be regarded as investigational or for research. Positive and negative controls stain appropriately. Performed By: #### 6 6121-5 ####[facility] LABCLIA [id number] [place] [address] [place] CASE REPORT Normal [facility] Comment on above: Order Comment: Speci cherelle Type: TISSUE SPECIMENOrdering Facility: [facility] Address: [address] [place] [address] Result Comment: Surg ica Pathology Report Case: [id number] Provider: Mary Green MD Collected: 11/04/2024 03:23 PMOrdering Location: General Surgery Received: 11/04/2024 05:06 PMPathologist: Devante eDan MD, PhDSpecimen: Lymph Node, Right, Axillary, right Performed By: #### 6 6121-5 ####[facility] LABCLIA [id number] [place] [address] [place] CLINICAL HISTORY axillary mass Normal [facility] Comment on above: Order Comment: Mikhaili cherelle Type: TISSUE SPECIMENOrdering Facility: [facility] Address: [address] [place] [address] Result Comment: Comm ent: right Performed By: #### 6 6121-5 ####[facility] LABCLIA [id number] [address] DIAGNOSIS COMMENT Normal [facility] Comment on above: Order Comment: Speci men Type: TISSUE SPECIMENOrdering Facility: [facility] Address: [address] [place] [address] Result Comment: The biopsy shows a 2 [...] site. Additional correlation is recommended.Results of ER, IL, and HER2 testing will follow in a linked report. Performed By: #### 6 6121-5 ####[facility] LABCLIA [id number] [address] FINAL DIAGNOSIS Normal [facility] Comment on above: Order Comment: Speci men Type: TISSUE SPECIMENOrdering Facility: [facility] Address: [address] [place] [address] Result Comment: Righ t axillary lymph node, core biopsy:- Poorly-differentiated carcinoma; see comment.- Skeletal muscle, not involved by carcinoma. at 0955 EDT Performed By: #### 6 6121-5 ####[facility] LABCLIA [id number] [address] FINAL PERFORMING LAB Normal [facility] Comment on above: Order Comment: Speci men Type: TISSUE SPECIMENOrdering Facility: [facility] Address: [address] [place] [address] Result Comment: Diag nostic interpretation performed at: [facility], [address] [place] [address] CLIA# [id number] Director: Rob Mello MD Performed By: #### 6 6121-5 ####[facility] LABIA [id number] [place] [address] [place] GROSS DESCRIPTION Normal [facility] Comment on above: Order Comment: Speci men Type: TISSUE SPECIMENOrdering Facility: [facility] Address: [address] [place] [address] Result Comment: A. L ymph Node, Right, AxillaryReceived in formalin labeled as lymph node, right, axillary are two segments of cylindrical tissue aggregating to 2.2 x 0.5 x 0.1 cm, zaman-yellow and of a soft consistency. The specimen was removed from the patient at 3:23 PM on 11/04/2024. On the same day, the specimen was placed in formalin at an unspecified time. Totally submitted in formalin in one cassette.FFS November 05, 2024 1:58 AMGross examination performed at [facility], [address] [place] [address] Performed By: #### 6 6121-5 ####[facility] LABIA [id number] [place] [address] [place] US GUIDED SOFT TISSUE MASS B IOPSY (POC) SURG USE ONLYon 11-04-2024 [facility] CNPNon 11-03-2024 CNPN Normal [facility] CBC W Auto Differential pane l (Bld)on 11-02-2024 Basophils (Bld) [#/Vol] 0.13 10*3/uL High <0.11 [facility] Comment on above: Order Comment: Speci men Type: BLOOD SPECIMENOrdering Facility: [facility] Address: [address] [place] [address] Performed By: #### 5 7021-8 ####[facility]AHIGHL[facility] [id number] [place] [address] [place] Basophils/100 WBC (Bld) 2.1 % Normal [facility] Comment on above: Order Comment: Speci men Type: BLOOD SPECIMENOrdering Facility: [facility] Address: [address] [place] [address] Performed By: #### 5 7021-8 ####[facility] DORAWTEMITOPELIA [id number] [place] [address] [place] Differential cell count method Nom (Bld) Auto Normal [facility] Comment on above: Order Comment: Speci men Type: BLOOD SPECIMENOrdering Facility: [facility] Address: [address] [place] [address] Performed By: #### 5 7021-8 ####[facility] OMARLALILIA [id number] [place] [address] [place] Eosinophils (Bld) [#/Vol] 0.23 10*3/uL Normal <0.46 [facility] Comment on above: Order Comment: Speci men Type: BLOOD SPECIMENOrdering Facility: [facility] Address: [address] [place] [address] Performed By: #### 5 7021-8 ####[facility] RIDGEWTEMITOPELIA [id number] [place] [address] [place] Eosinophils/100 WBC (Bld) 3.7 % Normal [facility] Comment on above: Order Comment: Speci men Type: BLOOD SPECIMENOrdering Facility: [facility] Address: [address] [place] [address] Performed By: #### 5 7021-8 ####[facility] OMARWNCLIA [id number] [place] [address] [place] Erythrocyte distribution width (RBC) [Ratio] 15.8 % High 11.5-15.0 [facility] Comment on above: Order Comment: Speci men Type: BLOOD SPECIMENOrdering Facility: [facility] Address: [address] [place] [address] Performed By: #### 5 7021-8 ####[facility] MILLGLENCOE REGIONAL HEALTH SERVICESBrandee [id number] [place] [address] [place] Hematocrit (Bld) [Volume fraction] 31.1 % Low 36.0-46.0 [facility] Comment on above: Order Comment: Speci men Type: BLOOD SPECIMENOrdering Facility: [facility] Address: [address] [place] [address] Performed By: #### 5 7021-8 ####[facility] [id number] [place] [address] [place] Hemoglobin (Bld) [Mass/Vol] 10.5 g/dL Low 11.5-15.5 [facility] Comment on above: Order Comment: Speci men Type: BLOOD SPECIMENOrdering Facility: [facility] Address: [address] [place] [address] Performed By: #### 5 7021-8 ####[facility] [id number] [place] [address] [place] Immature granulocytes (Bld) [#/Vol] 0.10 10*3/uL High <0.10 [facility] Comment on above: Order Comment: Speci men Type: BLOOD SPECIMENOrdering Facility: [facility] Address: [address] [place] [address] Performed By: #### 5 7021-8 ####[facility] [id number] [place] [address] [place] Immature granulocytes/100 WBC (Bld) 1.6 % Normal [facility] Comment on above: Order Comment: Speci men Type: BLOOD SPECIMENOrdering Facility: [facility] Address: [address] [place] [address] Performed By: #### 5 7021-8 ####[facility] [id number] [place] [address] [place] Lymphocytes (Bld) [#/Vol] 0.55 10*3/uL Low 1.00-4.00 [facility] Comment on above: Order Comment: Speci men Type: BLOOD SPECIMENOrdering Facility: [facility] Address: [address] [place] [address] Performed By: #### 5 7021-8 ####[facility]ITALNCLA[facility] [id number] [place] [address] [place] Lymphocytes/100 WBC (Bld) 8.7 % Normal [facility] Comment on above: Order Comment: Speci men Type: BLOOD SPECIMENOrdering Facility: [facility] Address: [address] [place] [address] Performed By: #### 5 7021-8 ####[facility]ITALNCLAKE[facility] [id number] [place] [address] [place] MCH (RBC) [Entitic mass] 30.3 pg Normal 26.0-34.0 [facility] Comment on above: Order Comment: Speci men Type: BLOOD SPECIMENOrdering Facility: [facility] Address: [address] [place] [address] Performed By: #### 5 7021-8 ####[facility] HOSPITALNCLI [id number] [place] [address] [place] MCHC (RBC) [Mass/Vol] 33.8 g/dL Normal 30.5-36.0 [facility] Comment on above: Order Comment: Speci men Type: BLOOD SPECIMENOrdering Facility: [facility] Address: [address] [place] [address] Performed By: #### 5 7021-8 ####[facility]ITALNCLAKE[facility] [id number] [place] [address] [place] MCV (RBC) [Entitic vol] 89.9 fL Normal 80.0-100.0 [facility] Comment on above: Order Comment: Speci men Type: BLOOD SPECIMENOrdering Facility: [facility] Address: [address] [place] [address] Performed By: #### 5 7021-8 ####[facility] MILLTOWNCLIA [id number] [place] [address] [place] Monocytes (Bld) [#/Vol] 0.71 10*3/uL Normal <0.87 [facility] Comment on above: Order Comment: Speci men Type: BLOOD SPECIMENOrdering Facility: [facility] Address: [address] [place] [address] Performed By: #### 5 7021-8 ####[facility] MILLWNCLIA [id number] [place] [address] [place] Monocytes/100 WBC (Bld) 11.3 % Normal [facility] Comment on above: Order Comment: Speci men Type: BLOOD SPECIMENOrdering Facility: [facility] Address: [address] [place] [address] Performed By: #### 5 7021-8 ####[facility] PINE RIDGEWNCLIA [id number] [place] [address] [place] Neutrophils (Bld) [#/Vol] 4.57 10*3/uL Normal 1.45-7.50 [facility] Comment on above: Order Comment: Speci men Type: BLOOD SPECIMENOrdering Facility: [facility] Address: [address] [place] [address] Performed By: #### 5 7021-8 ####[facility] MILLTOWNCLIA [id number] [place] [address] [place] Neutrophils/100 WBC (Bld) 72.6 % Normal [facility] Comment on above: Order Comment: Speci men Type: BLOOD SPECIMENOrdering Facility: [facility] Address: [address] [place] [address] Performed By: #### 5 7021-8 ####[facility] MILLWNCLIA [id number] [place] [address] [place] Nucleated RBC (Bld) [#/Vol] 10*3/uL Normal <0.01 [facility] Comment on above: Order Comment: Speci men Type: BLOOD SPECIMENOrdering Facility: [facility] Address: [address] [place] [address] Performed By: #### 5 7021-8 ####[facility] [id number] [place] [address] [place] Nucleated RBC/100 WBC (Bld) [Ratio] 0.0 /100 WBC Normal [facility] Comment on above: Order Comment: Speci men Type: BLOOD SPECIMENOrdering Facility: [facility] Address: [address] [place] [address] Performed By: #### 5 7021-8 ####[facility] HOSPITALBrandee [id number] [place] [address] [place] Platelet mean volume (Bld) [Entitic vol] 9.9 fL Normal 9.0-12.7 [facility] Comment on above: Order Comment: Speci men Type: BLOOD SPECIMENOrdering Facility: [facility] Address: [address] [place] [address] Performed By: #### 5 7021-8 ####[facility] GLENBEIGHNATALI [id number] [place] [address] [place] Platelets (Bld) [#/Vol] 297 10*3/uL Normal 150-400 [facility] Comment on above: Order Comment: Speci men Type: BLOOD SPECIMENOrdering Facility: [facility] Address: [address] [place] [address] Result Comment: No c lot detected. Performed By: #### 5 7021-8 ####[facility] HOSPITALBrandee [id number] [place] [address] [place] RBC (Bld) [#/Vol] 3.46 10*6/uL Low 3.90-5.[address] [facility] Comment on above: Order Comment: Speci men Type: BLOOD SPECIMENOrdering Facility: [facility] Address: [address] [place] [address] Performed By: #### 5 7021-8 ####[facility] MILLWNCLIA [id number] [place] [address] [place] WBC (Bld) [#/Vol] 6.29 10*3/uL Normal 3.70-11.[address] [facility] Comment on above: Order Comment: Speci men Type: BLOOD SPECIMENOrdering Facility: [facility] Address: [address] [place] [address] Performed By: #### 5 7021-8 ####[facility] HOSPITALNCLIA [id number] [place] [address] [place] Comprehensive metabolic 2000 panelon 11-02-2024 Albumin [Mass/Vol] 4.0 g/dL Normal 3.9-4.9 [facility] Comment on above: Order Comment: Speci men Type: BLOOD SPECIMENOrdering Facility: [facility] Address: [address] [place] [address] Performed By: #### 2 4323-8 ####[facility] RIDGEWTEMITOPELIA [id number] [place] [address] [place] ALP [Catalytic activity/Vol] 103 U/L Normal 34-123 [facility] Comment on above: Order Comment: Speci men Type: BLOOD SPECIMENOrdering Facility: [facility] Address: [address] [place] [address] Performed By: #### 2 4323-8 ####[facility] MILLTOWNCLIA [id number] [place] [address] [place] ALT [Catalytic activity/Vol] 8 U/L Normal 7-38 [facility] Comment on above: Order Comment: Speci men Type: BLOOD SPECIMENOrdering Facility: [facility] Address: [address] [place] [address] Performed By: #### 2 4323-8 ####[facility] GALINA MILLTOWNCLIA [id number] [place] [address] [place] Anion gap [Moles/Vol] 10 mmol/L Normal 8-15 [facility] Comment on above: Order Comment: Speci men Type: BLOOD SPECIMENOrdering Facility: [facility] Address: [address] [place] [address] Performed By: #### 2 4323-8 ####[facility] MILLWNCLIA [id number] [place] [address] [place] AST [Catalytic activity/Vol] 13 U/L Normal 13-35 [facility] Comment on above: Order Comment: Speci men Type: BLOOD SPECIMENOrdering Facility: [facility] Address: [address] [place] [address] Performed By: #### 2 4323-8 ####[facility] GALINANORTH COUNTRY HOSPITALNCLIA [id number] [place] [address] [place] Bilirubin [Mass/Vol] 0.3 mg/dL Normal 0.2-1.3 [facility] Comment on above: Order Comment: Speci men Type: BLOOD SPECIMENOrdering Facility: [facility] Address: [address] [place] [address] Performed By: #### 2 4323-8 ####[facility] MILLTOWNCLIA [id number] [place] [address] [place] Calcium [Mass/Vol] 9.3 mg/dL Normal 8.5-10.2 [facility] Comment on above: Order Comment: Speci men Type: BLOOD SPECIMENOrdering Facility: [facility] Address: [address] [place] [address] Performed By: #### 2 4323-8 ####[facility] MILLTOWNCLIA [id number] [place] [address] [place] Chloride [Moles/Vol] 100 mmol/L Normal 98-107 [facility] Comment on above: Order Comment: Speci men Type: BLOOD SPECIMENOrdering Facility: [facility] Address: [address] [place] [address] Performed By: #### 2 4323-8 ####[facility] RIDGEWNCLIA [id number] [place] [address] [place] CO2 [Moles/Vol] 26 mmol/L Normal 22-30 [facility] Comment on above: Order Comment: Speci men Type: BLOOD SPECIMENOrdering Facility: [facility] Address: [address] [place] [address] Performed By: #### 2 4323-8 ####[facility] GLENBEIGHLIA [id number] [place] [address] [place] Creatinine [Mass/Vol] 0.64 mg/dL Normal 0.58-0.96 [facility] Comment on above: Order Comment: Speci men Type: BLOOD SPECIMENOrdering Facility: [facility] Address: [address] [place] [address] Performed By: #### 2 4323-8 ####[facility] HOSPITALNCLIA [id number] [place] [address] [place] eGFRcr SerPlBld CKD-EPI 2020 98 mL/min/1.73m??? Normal >=60 [facility] Comment on above: Order Comment: Speci men Type: BLOOD SPECIMENOrdering Facility: [facility] Address: [address] [place] [address] Result Comment: Alayna mated Glomerular Filtration Rate [...] actual GFR. Performed By: #### 2 4323-8 ####[facility] GALINA JOHNWNCLIA [id number] [place] [address] [place] Glucose [Mass/Vol] 98 mg/dL Normal 74-99 [facility] Comment on above: Order Comment: [place] villarreal Type: BLOOD SPECIMENOrdering Facility: [facility] Address: [address] [place] [address] Result Comment: The [place] Diabetes Association (ADA) provides guidance for cutoff [...] Standards of Medical Care in Diabetes 2016, [place] [employer] Association. Diabetes Care. 2016.39(Suppl 1). Performed By: #### 2 4323-8 ####[facility] HOSPITALNCLIA [id number] [place] [address] [place] Potassium [Moles/Vol] 4.3 mmol/L Normal 3.7-5.1 [facility] Comment on above: Order Comment: [place] men Type: BLOOD SPECIMENOrdering Facility: [facility] Address: [address] [place] [address] Performed By: #### 2 4323-8 ####[facility] DORAWNCLIA [id number] [place] [address] [place] Protein [Mass/Vol] 6.3 g/dL Normal 6.3-8.0 [facility] Comment on above: Order Comment: Speci men Type: BLOOD SPECIMENOrdering Facility: [facility] Address: [address] [place] [address] Performed By: #### 2 4323-8 ####[facility] JERO [id number] [place] [address] [place] Sodium [Moles/Vol] 136 mmol/L Normal 136-144 [facility] Comment on above: Order Comment: Speci men Type: BLOOD SPECIMENOrdering Facility: [facility] Address: [address] [place] [address] Performed By: #### 2 4323-8 ####[facility] VUNCLIA [id number] [place] [address] [place] Urea nitrogen [Mass/Vol] 10 mg/dL Normal 7-21 [facility] Comment on above: Order Comment: Speci men Type: BLOOD SPECIMENOrdering Facility: [facility] Address: [address] [place] [address] Performed By: #### 2 4323-8 ####[facility] OMARPkNCLIA [id number] [place] [address] [place] CNPNon 10-29-2024 CNPN Normal [facility] CNOVon 10-28-2024 CNOV Normal [facility] RADHA US BREAST LTD RTon 10-28 RADHA US BREAST LTD RT Normal [facility] CBC W Auto Differential pane l (Bld)on 10-27-2024 Erythrocyte distribution width (RBC) [Ratio] 16.2 % High 11.5-15.0 [facility] Comment on above: Order Comment: Speci men Type: BLOOD SPECIMENOrdering Facility: [facility] Address: [address] [place] [address] Performed By: #### 5 7021-8 ####[facility] P[facility] RIDGEWNCLIA [id number] [place] [address] [place] Hematocrit (Bld) [Volume fraction] 32.1 % Low 36.0-46.0 [facility] Comment on above: Order Comment: Speci men Type: BLOOD SPECIMENOrdering Facility: [facility] Address: [address] [place] [address] Performed By: #### 5 7021-8 ####[facility] [id number] [place] [address] [place] Hemoglobin (Bld) [Mass/Vol] 10.8 g/dL Low 11.5-15.5 [facility] Comment on above: Order Comment: Speci men Type: BLOOD SPECIMENOrdering Facility: [facility] Address: [address] [place] [address] Performed By: #### 5 7021-8 ####[facility] [id number] [place] [address] [place] MCH (RBC) [Entitic mass] 30.3 pg Normal 26.0-34.0 [facility] Comment on above: Order Comment: Speci men Type: BLOOD SPECIMENOrdering Facility: [facility] Address: [address] [place] [address] Performed By: #### 5 7021-8 ####[facility]ITALNCLI [id number] [place] [address] [place] MCHC (RBC) [Mass/Vol] 33.6 g/dL Normal 30.5-36.0 [facility] Comment on above: Order Comment: Speci men Type: BLOOD SPECIMENOrdering Facility: [facility] Address: [address] [place] [address] Performed By: #### 5 7021-8 ####[facility]ITALNCL[facility] [id number] [place] [address] [place] MCV (RBC) [Entitic vol] 89.9 fL Normal 80.0-100.0 [facility] Comment on above: Order Comment: Speci men Type: BLOOD SPECIMENOrdering Facility: [facility] Address: [address] [place] [address] Performed By: #### 5 7021-8 ####[facility] GALINA NELSONTOWNCLIA [id number] [place] [address] [place] Platelet mean volume (Bld) [Entitic vol] 9.1 fL Normal 9.0-12.7 [facility] Comment on above: Order Comment: Speci men Type: BLOOD SPECIMENOrdering Facility: [facility] Address: [address] [place] [address] Performed By: #### 5 7021-8 ####[facility] OMARBABSON PARKNCNATALI [id number] [place] [address] [place] Platelets (Bld) [#/Vol] 449 10*3/uL High 150-400 [facility] Comment on above: Order Comment: Speci men Type: BLOOD SPECIMENOrdering Facility: [facility] Address: [address] [place] [address] Result Comment: No c lot detected. Performed By: #### 5 7021-8 ####[facility]ITALNCLIA [id number] [place] [address] [place] RBC (Bld) [#/Vol] 3.57 10*6/uL Low 3.90-5.[address] [facility] Comment on above: Order Comment: Speci men Type: BLOOD SPECIMENOrdering Facility: [facility] Address: [address] [place] [address] Performed By: #### 5 7021-8 ####[facility]ITALNCLIA [id number] [place] [address] [place] WBC (Bld) [#/Vol] 52.37 10*3/uL High 3.70-11.00 [facility] Comment on above: Order Comment: Speci men Type: BLOOD SPECIMENOrdering Facility: [facility] Address: [address] [place] [address] Performed By: #### 5 7021-8 ####[facility] RIDGEWNCLIA [id number] [place] [address] [place] Cancer Ag15-3 SerPl-aCncon 0 10-27-2024 Cancer Ag 15-3 Qn 45.9 U/mL High <26.0 [facility] Comment on above: Order Comment: Speci men Type: BLOOD SPECIMENOrdering Facility: [facility] Address: [address] [place] [address] Result Comment: The CA 15-3 test methodology used is the Electrochemiluminescence Immunoassay by Jennifer oboxo. Results obtained with different methods or kits cannot be used interchangeably. Performed By: #### 2 143-6, 3024-7, 3016-3, 6875-9 ####[facility] LABCLIA [id number] [place] [address] [place] Comprehensive metabolic 2000 panelon 10-27-2024 Albumin [Mass/Vol] 4.2 g/dL Normal 3.9-4.9 [facility] Comment on above: Order Comment: Speci men Type: BLOOD SPECIMENOrdering Facility: [facility] Address: [address] [place] [address] Performed By: #### 2 4323-8 ####[facility]ITALNCLIA [id number] [place] [address] [place] ALP [Catalytic activity/Vol] 214 U/L High 34-123 [facility] Comment on above: Order Comment: Speci men Type: BLOOD SPECIMENOrdering Facility: [facility] Address: [address] [place] [address] Performed By: #### 2 4323-8 ####[facility] INSTITUTETOWNCLIA [id number] [place] [address] [place] ALT [Catalytic activity/Vol] 10 U/L Normal 7-38 [facility] Comment on above: Order Comment: Speci men Type: BLOOD SPECIMENOrdering Facility: [facility] Address: [address] [place] [address] Performed By: #### 2 4323-8 ####[facility] GALINA MILLTOWNCLIA [id number] [place] [address] [place] Anion gap [Moles/Vol] 11 mmol/L Normal 8-15 [facility] Comment on above: Order Comment: Speci men Type: BLOOD SPECIMENOrdering Facility: [facility] Address: [address] [place] [address] Performed By: #### 2 4323-8 ####[facility] MILLWNCLIA [id number] [place] [address] [place] AST [Catalytic activity/Vol] 26 U/L Normal 13-35 [facility] Comment on above: Order Comment: Speci men Type: BLOOD SPECIMENOrdering Facility: [facility] Address: [address] [place] [address] Performed By: #### 2 4323-8 ####[facility] MILLWNCLIA [id number] [place] [address] [place] Bilirubin [Mass/Vol] 0.2 mg/dL Normal 0.2-1.3 [facility] Comment on above: Order Comment: Speci men Type: BLOOD SPECIMENOrdering Facility: [facility] Address: [address] [place] [address] Performed By: #### 2 4323-8 ####[facility] GALINA MILLTOWNCLIA [id number] [place] [address] [place] Calcium [Mass/Vol] 10.0 mg/dL Normal 8.5-10.2 [facility] Comment on above: Order Comment: Speci men Type: BLOOD SPECIMENOrdering Facility: [facility] Address: [address] [place] [address] Performed By: #### 2 4323-8 ####[facility] MILLTOWNCLIA [id number] [place] [address] [place] Chloride [Moles/Vol] 100 mmol/L Normal 98-107 [facility] Comment on above: Order Comment: Speci men Type: BLOOD SPECIMENOrdering Facility: [facility] Address: [address] [place] [address] Performed By: #### 2 4323-8 ####[facility] PINE RIDGEWNCLIA [id number] [place] [address] [place] CO2 [Moles/Vol] 26 mmol/L Normal 22-30 [facility] Comment on above: Order Comment: Speci men Type: BLOOD SPECIMENOrdering Facility: [facility] Address: [address] [place] [address] Performed By: #### 2 4323-8 ####[facility] GLENBEIGHLIA [id number] [place] [address] [place] Creatinine [Mass/Vol] 0.71 mg/dL Normal 0.58-0.96 [facility] Comment on above: Order Comment: Speci men Type: BLOOD SPECIMENOrdering Facility: [facility] Address: [address] [place] [address] Performed By: #### 2 4323-8 ####[facility] GLENBEIGHLIA [id number] [place] [address] [place] eGFRcr SerPlBld CKD-EPI 2020 94 mL/min/1.73m??? Normal >=60 [facility] Comment on above: Order Comment: Speci men Type: BLOOD SPECIMENOrdering Facility: [facility] Address: [address] [place] [address] Result Comment: Alayna mated Glomerular Filtration Rate [...] actual GFR. Performed By: #### 2 4323-8 ####[facility] GALINA MILLTOWNCLIA [id number] [place] [address] [place] Glucose [Mass/Vol] 138 mg/dL High 74-99 [facility] Comment on above: Order Comment: Speci men Type: BLOOD SPECIMENOrdering Facility: [facility] Address: [address] [place], [place] [id number] Result Comment: The [place] Diabetes Association (ADA) provides guidance for cutoff [...] Standards of Medical Care in Diabetes 2016, [place] Diabetes Association. Diabetes Care. 2016.39(Suppl 1). Performed By: #### 2 4323-8 ####[facility] MILLTOWNCLIA [id number] [place] [address] [place] Potassium [Moles/Vol] 3.5 mmol/L Low 3.7-5.1 [facility] Comment on above: Order Comment: Mikhaili men Type: BLOOD SPECIMENOrdering Facility: [facility] Address: [address] [place] [address] Performed By: #### 2 4323-8 ####[facility] OMARTOWNCLIA [id number] [place] [address] [place] Protein [Mass/Vol] 6.7 g/dL Normal 6.3-8.0 [facility] Comment on above: Order Comment: Speci men Type: BLOOD SPECIMENOrdering Facility: [facility] Address: [address] [place] [address] Performed By: #### 2 4323-8 ####[facility] OMARPkNCLIA [id number] [place] [address] [place] Sodium [Moles/Vol] 137 mmol/L Normal 136-144 [facility] Comment on above: Order Comment: Speci men Type: BLOOD SPECIMENOrdering Facility: [facility] Address: [address] [place] [address] Performed By: #### 2 4323-8 ####[facility] [id number] [place] [address] [place] Urea nitrogen [Mass/Vol] 7 mg/dL Normal 7-21 [facility] Comment on above: Order Comment: Speci men Type: BLOOD SPECIMENOrdering Facility: [facility] Address: [address] [place] [address] Performed By: #### 2 4323-8 ####[facility] GLENBEIGHLIA [id number] [place] [address] [place] Cortroxanna Morenol-Luannon 10-28-19 25 Cortisol [Mass/Vol] 11.6 ug/dL Normal 4.8-19.[address] [facility] Comment on above: Order Comment: Speci men Type: BLOOD SPECIMENOrdering Facility: [facility] Address: [address] [place] [address] Result Comment: Prov ided reference range is from 6-10 AM sample collection time.Cortisol Reference Range: 6-10 AM = 4.8-19.5 ug/dL, 4-8 PM = 2.5-11.9 ug/dL Performed By: #### 2 143-6, 3024-7, 3016-3, 6875-9 ####[facility] LABCLIA [id number] [place] [id number] [place] T4 Free SerPl-mCncon 025 Free T4 [Mass/Vol] 1.3 ng/dL Normal 0.9-1.7 [facility] Comment on above: Order Comment: Speci men Type: BLOOD SPECIMENOrdering Facility: [facility] Address: [address] [place] [address] Performed By: #### 2 143-6, 3024-7, 3016-3, 6875-9 ####[facility] LABCLIA [id number] [place] [address] [place] TSH SerPl-aCncon 10-27-2024 TSH Qn 1.710 m[IU]/L Normal 0.270-4.20 0 [facility] Comment on above: Order Comment: Speci men Type: BLOOD SPECIMENOrdering Facility: [facility] Address: [address] [place] [address] Performed By: #### 2 143-6, 3024-7, 3016-3, 6875-9 ####[facility] LABCLIA [id number] [place] [address] [place] CNPNon 10-26-2024 CNPN Normal [facility] MRI BRACHIAL PLEXUS WOW IVCO N LTon 10-22-2024 MRI BRACHIAL PLEXUS WOW IVCON LT Normal [facility] CNPNon 10-21-2024 CNPN Normal [facility] CBC W Auto Differential pane l (Bld)on 10-20-2024 Basophils (Bld) [#/Vol] 0.05 10*3/uL Normal <0.11 [facility] Comment on above: Order Comment: Speci men Type: BLOOD SPECIMENOrdering Facility: [facility] Address: [address] [place] [address] Performed By: #### 5 7021-8 ####[facility] GALINAMERCY HOSPITAL [facility] – OKLAHOMA CITYLIBrandee [id number] [address] STATES OF [facility] LABORATORYCLIA [id number] [address] [place] Basophils/100 WBC (Bld) 4.0 % Normal [facility] Comment on above: Order Comment: Speci men Type: BLOOD SPECIMENOrdering Facility: [facility] Address: [address] [place] [address] Performed By: #### 5 7021-8 ####[facility] MILLTOWNCLIA [id number] [address] LABORATORYCLIA [id number] [place] [address] [place] Dacrocytes LM Ql (Bld) Few Normal [facility] Comment on above: Order Comment: Speci men Type: BLOOD SPECIMENOrdering Facility: [facility] Address: [address] [place] [address] Performed By: #### 5 7021-8 ####[facility]PITALA [id number] [address] LABORATORYCLIA [id number] [address] [place] Differential cell count method Nom (Bld) Manual Normal [facility] Comment on above: Order Comment: Speci men Type: BLOOD SPECIMENOrdering Facility: [facility] Address: [address] [place] [address] Performed By: #### 5 7021-8 ####[facility]ITALNCLIA [id number] [address] LABORATORYCLIA [id number] [place] [address] [place] Eosinophils (Bld) [#/Vol] 0.04 10*3/uL Normal <0.46 [facility] Comment on above: Order Comment: Speci men Type: BLOOD SPECIMENOrdering Facility: [facility] Address: [address] [place] [address] Performed By: #### 5 7021-8 ####[facility] MILLTOWNCLIA [id number] [address] LABORATORYCLIA [id number] [place] [address] [place] Eosinophils/100 WBC (Bld) 3.0 % Normal [facility] Comment on above: Order Comment: Speci men Type: BLOOD SPECIMENOrdering Facility: [facility] Address: [address] [place] [address] Performed By: #### 5 7021-8 ####[facility] PINE RIDGEWNCLIA [id number] [address] LABORATORYCLIA [id number] [place] [address] [place] Erythrocyte distribution width (RBC) [Ratio] 14.8 % Normal 11.5-15.0 [facility] Comment on above: Order Comment: Speci men Type: BLOOD SPECIMENOrdering Facility: [facility] Address: [address] [place] [address] Performed By: #### 5 7021-8 ####[facility] P[facility] RIDGEWNCLIA [id number] [address] LABORATORYCLIA [id number] [place] [address] [place] Hematocrit (Bld) [Volume fraction] 30.3 % Low 36.0-46.0 [facility] Comment on above: Order Comment: Speci men Type: BLOOD SPECIMENOrdering Facility: [facility] Address: [address] [place], [place] [address] Performed By: #### 5 7021-8 ####[facility] MILLTOWNCLIA [id number] [address] LABORATORYCLIA [id number] [place] [address] [place] Hemoglobin (Bld) [Mass/Vol] 10.2 g/dL Low 11.5-15.5 [facility] Comment on above: Order Comment: Speci men Type: BLOOD SPECIMENOrdering Facility: [facility] Address: [address] [place] [address] Performed By: #### 5 7021-8 ####[facility] MILLTOWNCLIA [id number] [address] LABORATORYCLIA [id number] [place] [address] [place] Lymphocytes (Bld) [#/Vol] 0.38 10*3/uL Low 1.00-4.00 [facility] Comment on above: Order Comment: Speci men Type: BLOOD SPECIMENOrdering Facility: [facility] Address: [address] [place] [address] Performed By: #### 5 7021-8 ####[facility] PINE RIDGEWVALIA [id number] [address] LABORATORYCLIA [id number] [address] [facility] Lymphocytes/100 WBC (Bld) 30.0 % Normal [facility] Comment on above: Order Comment: Speci men Type: BLOOD SPECIMENOrdering Facility: [facility] Address: [address] [place] [address] Performed By: #### 5 7021-8 ####[facility] HOSPITALA [id number] [address] LABORATORYCLIA [id number] [address] [place] MCH (RBC) [Entitic mass] 29.7 pg Normal 26.0-34.0 [facility] Comment on above: Order Comment: Speci men Type: BLOOD SPECIMENOrdering Facility: [facility] Address: [address] [place] [address] Performed By: #### 5 7021-8 ####[facility] OMARNAJMALIA [id number] [address] LABORATORYCLIA [id number] [address] MCHC (RBC) [Mass/Vol] 33.7 g/dL Normal 30.5-36.0 [facility] Comment on above: Order Comment: Speci men Type: BLOOD SPECIMENOrdering Facility: [facility] Address: [address] [place] [address] Performed By: #### 5 7021-8 ####[facility] HOSPITALTEMITOPELIA [id number] [address] LABORATORYCLIA [id number] [address] MCV (RBC) [Entitic vol] 88.1 fL Normal 80.0-100.0 [facility] Comment on above: Order Comment: Speci men Type: BLOOD SPECIMENOrdering Facility: [facility] Address: [address] [place] [address] Performed By: #### 5 7021-8 ####[facility] OMARMASTERA [id number] [address] LABORATORYCLIA [id number] [address] Metamyelocytes/100 WBC (Bld) 1.0 % Normal [facility] Comment on above: Order Comment: Speci men Type: BLOOD SPECIMENOrdering Facility: [facility] Address: [address] [place] [address] Performed By: #### 5 7021-8 ####[facility] P[facility] RIDGEWTEMITOPELIA [id number] [address] LABORATORYCLIA [id number] [place] [address] [place] Monocytes (Bld) [#/Vol] 0.11 10*3/uL Normal <0.87 [facility] Comment on above: Order Comment: Speci men Type: BLOOD SPECIMENOrdering Facility: [facility] Address: [address] [place] [address] Performed By: #### 5 7021-8 ####[facility] MILLTOWNCLIA [id number] [address] LABORATORYCLIA [id number] [place] [address] [place] Monocytes/100 WBC (Bld) 9.0 % Normal [facility] Comment on above: Order Comment: Speci men Type: BLOOD SPECIMENOrdering Facility: [facility] Address: [address] [place] [address] Performed By: #### 5 7021-8 ####[facility] MILLTOWNCLIA [id number] [address] LABORATORYCLIA [id number] [place] [address] [place] Neutrophils (Bld) [#/Vol] 0.67 10*3/uL Low 1.45-7.50 [facility] Comment on above: Order Comment: Speci men Type: BLOOD SPECIMENOrdering Facility: [facility] Address: [address] [place] [address] Performed By: #### 5 7021-8 ####[facility] MILLTOWNCLIA [id number] [address] LABORATORYCLIA [id number] [place] [address] [place] Neutrophils/100 WBC (Bld) 53.0 % Normal [facility] Comment on above: Order Comment: Speci men Type: BLOOD SPECIMENOrdering Facility: [facility] Address: [address] [place] [address] Performed By: #### 5 7021-8 ####[facility] OMARTOWNCLIA [id number] [address] LABORATORYCLIA [id number] [place] [address] [place] Nucleated RBC (Bld) [#/Vol] 10*3/uL Normal <0.01 [facility] Comment on above: Order Comment: Speci men Type: BLOOD SPECIMENOrdering Facility: [facility] Address: [address] [place] [address] Performed By: #### 5 7021-8 ####[facility] PINE RIDGEWNCLIA [id number] [address] LABORATORYCLIA [id number] [place] [address] [place] Nucleated RBC/100 WBC (Bld) [Ratio] 0.0 /100 WBC Normal [facility] Comment on above: Order Comment: Speci men Type: BLOOD SPECIMENOrdering Facility: [facility] Address: [address] [place] [address] Performed By: #### 5 7021-8 ####[facility] PINE RIDGEWNCLIA [id number] [address] LABORATORYCLIA [id number] [place] [address] [place] Ovalocytes LM Ql (Bld) Few Normal [facility] Comment on above: Order Comment: Speci men Type: BLOOD SPECIMENOrdering Facility: [facility] Address: [address] [place] [address] Performed By: #### 5 7021-8 ####[facility] MILLTOWNCLIA [id number] [address] LABORATORYCLIA [id number] [place] [address] [place] Platelet mean volume (Bld) [Entitic vol] 8.9 fL Low 9.0-12.7 [facility] Comment on above: Order Comment: Speci men Type: BLOOD SPECIMENOrdering Facility: [facility] Address: [address] [place] [address] Performed By: #### 5 7021-8 ####[facility] MILLTOWNCLIA [id number] [address] LABORATORYCLIA [id number] [place] [address] [place] Platelets (Bld) [#/Vol] 236 10*3/uL Normal 150-400 [facility] Comment on above: Order Comment: Speci men Type: BLOOD SPECIMENOrdering Facility: [facility] Address: [address] [place] [address] Performed By: #### 5 7021-8 ####[facility] GLENBEIGHLIA [id number] [address] LABORATORYCLIA [id number] [place] [address] [place] Platelets Estimate (Bld) [#/Vol] Adequate Normal [facility] Comment on above: Order Comment: Speci men Type: BLOOD SPECIMENOrdering Facility: [facility] Address: [address] [place] [address] Performed By: #### 5 7021-8 ####[facility] MILLWNCLIA [id number] [address] LABORATORYCLIA [id number] [place] [address] [place] RBC (Bld) [#/Vol] 3.44 10*6/uL Low 3.90-5.[address] [facility] Comment on above: Order Comment: Speci men Type: BLOOD SPECIMENOrdering Facility: [facility] Address: [address] [place] [address] Performed By: #### 5 7021-8 ####[facility] GLENBEIGHLIA [id number] [address] LABORATORYCLIA [id number] [place] [address] [place] RED CELL MORPH Reviewed: see result s of individual morphologies Normal [facility] Comment on above: Order Comment: Speci men Type: BLOOD SPECIMENOrdering Facility: [facility] Address: [address] [place] [address] Performed By: #### 5 7021-8 ####[facility] [id number] [address] LABORATORYCLIA [id number] [place] [address] [place] WBC (Bld) [#/Vol] 1.26 10*3/uL Low 3.70-11.[address] [facility] Comment on above: Order Comment: Speci men Type: BLOOD SPECIMENOrdering Facility: [facility] Address: [address] [place] [address] Result Comment: No c lot detected. Performed By: #### 5 7021-8 ####[facility] [id number] [address] LABORATORYCLIA [id number] [place] [address] [place] WBC Left Shift Ql (Bld) Present Normal [facility] Comment on above: Order Comment: Speci men Type: BLOOD SPECIMENOrdering Facility: [facility] Address: [address] [place] [address] Performed By: #### 5 7021-8 ####[facility] MILLTOWNCLIA [id number] [address] LABORATORYCLIA [id number] [address] [place] CNOVSPon 10-20-2024 CNOVSP Normal [facility] Cancer Ag15-3 SerPl-aCncon 0 10-20-2024 Cancer Ag 15-3 Qn 34.9 U/mL High <26.0 [facility] Comment on above: Order Comment: Speci men Type: BLOOD SPECIMENOrdering Facility: [facility] Address: [address] [place] [address] Result Comment: The CA 15-3 test methodology used is the Electrochemiluminescence Immunoassay by Jennifer oboxo. Results obtained with different methods or kits cannot be used interchangeably. Performed By: #### 3 016-3, 3024-7, 6875-9, 2143-6 ####[facility] LABCLIA [id number] [address] STATES OF [facility] Comprehensive metabolic 2000 panelon 10-20-2024 Albumin [Mass/Vol] 4.1 g/dL Normal 3.9-4.9 [facility] Comment on above: Order Comment: Speci men Type: BLOOD SPECIMENOrdering Facility: [facility] Address: [address] [place] [address] Performed By: #### 2 4323-8 ####[facility] P[facility] RIDGEWNCLIA [id number] [place] [address] [place] ALP [Catalytic activity/Vol] 79 U/L Normal 34-123 [facility] Comment on above: Order Comment: Speci men Type: BLOOD SPECIMENOrdering Facility: [facility] Address: [address] [place] [address] Performed By: #### 2 4323-8 ####[facility] PINE RIDGEWNCLIA [id number] [place] [address] [place] ALT [Catalytic activity/Vol] 10 U/L Normal 7-38 [facility] Comment on above: Order Comment: Speci men Type: BLOOD SPECIMENOrdering Facility: [facility] Address: [address] [place] [address] Performed By: #### 2 4323-8 ####[facility] P[facility] RIDGEWNCLIA [id number] [place] [address] [place] Anion gap [Moles/Vol] 13 mmol/L Normal 8-15 [facility] Comment on above: Order Comment: Speci men Type: BLOOD SPECIMENOrdering Facility: [facility] Address: [address] [place] [address] Performed By: #### 2 4323-8 ####[facility] GLENBEIGHLIA [id number] [place] [address] [place] AST [Catalytic activity/Vol] 14 U/L Normal 13-35 [facility] Comment on above: Order Comment: Speci men Type: BLOOD SPECIMENOrdering Facility: [facility] Address: [address] [place] [address] Performed By: #### 2 4323-8 ####[facility] HOSPITALNCLIA [id number] [place] [address] [place] Bilirubin [Mass/Vol] 0.3 mg/dL Normal 0.2-1.3 [facility] Comment on above: Order Comment: Speci men Type: BLOOD SPECIMENOrdering Facility: [facility] Address: [address] [place] [address] Performed By: #### 2 4323-8 ####[facility] GLENBEIGHLIA [id number] [place] [address] [place] Calcium [Mass/Vol] 9.0 mg/dL Normal 8.5-10.2 [facility] Comment on above: Order Comment: Speci men Type: BLOOD SPECIMENOrdering Facility: [facility] Address: [address] [place] [address] Performed By: #### 2 4323-8 ####[facility] HOSPITALNCLIA [id number] [place] [address] [place] Chloride [Moles/Vol] 98 mmol/L Normal 98-107 [facility] Comment on above: Order Comment: Speci men Type: BLOOD SPECIMENOrdering Facility: [facility] Address: [address] [place] [address] Performed By: #### 2 4323-8 ####[facility] HOSPITALNCA [id number] [place] [address] [place] CO2 [Moles/Vol] 24 mmol/L Normal 22-30 [facility] Comment on above: Order Comment: Speci men Type: BLOOD SPECIMENOrdering Facility: [facility] Address: [address] [place] [address] Performed By: #### 2 4323-8 ####[facility] [id number] [place] [address] [place] Creatinine [Mass/Vol] 0.72 mg/dL Normal 0.58-0.96 [facility] Comment on above: Order Comment: Speci men Type: BLOOD SPECIMENOrdering Facility: [facility] Address: [address] [place] [address] Performed By: #### 2 4323-8 ####[facility] [id number] [place] [address] [place] eGFRcr SerPlBld CKD-EPI 2020 93 mL/min/1.73m??? Normal >=60 [facility] Comment on above: Order Comment: Speci men Type: BLOOD SPECIMENOrdering Facility: [facility] Address: [address] [place] [address] Result Comment: Alayna mated Glomerular Filtration Rate [...] actual GFR. Performed By: #### 2 4323-8 ####[facility] HOSPITALTEMTIOPELI [id number] [place] [address] [place] Glucose [Mass/Vol] 89 mg/dL Normal 74-99 [facility] Comment on above: Order Comment: [place] villarreal Type: BLOOD SPECIMENOrdering Facility: [facility] Address: [address] [place] [address] Result Comment: The [place] Diabetes Association (ADA) provides guidance for cutoff [...] Standards of Medical Care in Diabetes 2016, [place] Diabetes Association. Diabetes Care. 2016.39(Suppl 1). Performed By: #### 2 4323-8 ####[facility]PITALNCLAKE[facility] [id number] [place] [address] [place] Potassium [Moles/Vol] 3.6 mmol/L Low 3.7-5.1 [facility] Comment on above: Order Comment: [place] villarreal Type: BLOOD SPECIMENOrdering Facility: [facility] Address: [address] [id number] Performed By: #### 2 4323-8 ####[facility] HOSPITALNCLI [id number] [place] [address] [place] Protein [Mass/Vol] 6.6 g/dL Normal 6.3-8.0 [facility] Comment on above: Order Comment: Speci men Type: BLOOD SPECIMENOrdering Facility: [facility] Address: [address] [place] [address] Performed By: #### 2 4323-8 ####[facility] [id number] [place] [address] [place] Sodium [Moles/Vol] 135 mmol/L Low 136-144 [facility] Comment on above: Order Comment: Speci men Type: BLOOD SPECIMENOrdering Facility: [facility] Address: [address] [place] [address] Performed By: #### 2 4323-8 ####[facility] [id number] [place] [address] [place] Urea nitrogen [Mass/Vol] 11 mg/dL Normal 7-21 [facility] Comment on above: Order Comment: Speci men Type: BLOOD SPECIMENOrdering Facility: [facility] Address: [address] [place] [address] Performed By: #### 2 4323-8 ####[facility] [id number] [place] [address] [place] Cortroxanna SerPl-Luannon 10-21-19 25 Cortisol [Mass/Vol] 14.0 ug/dL Normal 4.8-19.[address] [facility] Comment on above: Order Comment: Speci men Type: BLOOD SPECIMENOrdering Facility: [facility] Address: [address] [place] [address] Result Comment: Prov ided reference range is from 6-10 AM sample collection time.Cortisol Reference Range: 6-10 AM = 4.8-19.5 ug/dL, 4-8 PM = 2.5-11.9 ug/dL Performed By: #### 3 016-3, 3024-7, 6875-9, 2143-6 ####[facility] LABCLIA [id number] [place] [id number] [place] T4 Free SerPl-mCncon 025 Free T4 [Mass/Vol] 1.4 ng/dL Normal 0.9-1.7 [facility] Comment on above: Order Comment: Speci men Type: BLOOD SPECIMENOrdering Facility: [facility] Address: [address] [place] [address] Performed By: #### 3 016-3, 3024-7, 6875-9, 3-6 ####[facility] LABIA [id number] [place] [address] [place] TSH SerPl-aCncon 10-20-2024 TSH Qn 2.780 m[IU]/L Normal 0.270-4.20 0 [facility] Comment on above: Order Comment: Speci men Type: BLOOD SPECIMENOrdering Facility: [facility] Address: [address] [place] [address] Performed By: #### 3 016-3, 3024-7, 6875-9, 3-6 ####[facility] LABWH[facility] [id number] [place] [address] [place] CBC W Auto Differential pane l (Bld)on 10-13-2024 Basophils (Bld) [#/Vol] 0.30 10*3/uL High <0.11 [facility] Comment on above: Order Comment: Speci men Type: BLOOD SPECIMENOrdering Facility: [facility] Address: [address] [place] [address] Performed By: #### 5 7021-8 ####[facility]AHIGHL[facility] [id number] [place], [place] [id number] [place] [address] STATES [place] [facility] LABORATORYCLIA [id number] [place] [address] [place] Basophils/100 WBC (Bld) 1.0 % Normal [facility] Comment on above: Order Comment: Speci men Type: BLOOD SPECIMENOrdering Facility: [facility] Address: [address] [place] [address] Performed By: #### 5 7021-8 ####[facility] OMARTOWNCLIA [id number] [address] LABORATORYCLIA [id number] [place] [address] [place] Differential cell count method Nom (Bld) Manual Normal [facility] Comment on above: Order Comment: Speci men Type: BLOOD SPECIMENOrdering Facility: [facility] Address: [address] [place] [address] Performed By: #### 5 7021-8 ####[facility]ITALNCLIA [id number] [address] LABORATORYCLIA [id number] [place] [address] [place] Eosinophils (Bld) [#/Vol] 0.89 10*3/uL High <0.46 [facility] Comment on above: Order Comment: Speci men Type: BLOOD SPECIMENOrdering Facility: [facility] Address: [address] [place] [address] Performed By: #### 5 7021-8 ####[facility] PINE RIDGEWNCLIA [id number] [address] LABORATORYCLIA [id number] [place] [address] [place] Eosinophils/100 WBC (Bld) 3.0 % Normal [facility] Comment on above: Order Comment: Speci men Type: BLOOD SPECIMENOrdering Facility: [facility] Address: [address] [place] [address] Performed By: #### 5 7021-8 ####[facility] PINE RIDGEWNCLIA [id number] [address] LABORATORYCLIA [id number] [place] [address] [place] Erythrocyte distribution width (RBC) [Ratio] 15.3 % High 11.5-15.0 [facility] Comment on above: Order Comment: Speci men Type: BLOOD SPECIMENOrdering Facility: [facility] Address: [address] [place] [address] Performed By: #### 5 7021-8 ####[facility] MILLTOWNCLIA [id number] [address] LABORATORYCLIA [id number] [place] [address] [place] Hematocrit (Bld) [Volume fraction] 32.7 % Low 36.0-46.0 [facility] Comment on above: Order Comment: Speci men Type: BLOOD SPECIMENOrdering Facility: [facility] Address: [address] [place] [address] Performed By: #### 5 7021-8 ####[facility] MILLTOWNCLIA [id number] [address] LABORATORYCLIA [id number] [address] [place] Hemoglobin (Bld) [Mass/Vol] 11.1 g/dL Low 11.5-15.5 [facility] Comment on above: Order Comment: Speci men Type: BLOOD SPECIMENOrdering Facility: [facility] Address: [address] [place] [address] Performed By: #### 5 7021-8 ####[facility] MILLTOWNCLIA [id number] [address] LABORATORYCLIA [id number] [place] [address] [place] Lymphocytes (Bld) [#/Vol] 0.30 10*3/uL Low 1.00-4.00 [facility] Comment on above: Order Comment: Speci men Type: BLOOD SPECIMENOrdering Facility: [facility] Address: [address] [place] [address] Performed By: #### 5 7021-8 ####[facility] PINE RIDGEWNCLIA [id number] [address] LABORATORYCLIA [id number] [address] Lymphocytes/100 WBC (Bld) 1.0 % Normal [facility] Comment on above: Order Comment: Speci men Type: BLOOD SPECIMENOrdering Facility: [facility] Address: [address] [place] [address] Performed By: #### 5 7021-8 ####[facility] GLENBEIGHLIA [id number] [address] LABORATORYCLIA [id number] [place] [address] [place] [facility] MCH (RBC) [Entitic mass] 30.2 pg Normal 26.0-34.0 [facility] Comment on above: Order Comment: Speci men Type: BLOOD SPECIMENOrdering Facility: [facility] Address: [address] [place] [address] Performed By: #### 5 7021-8 ####[facility] GLENBEIGHLIA [id number] [address] LABORATORYCLIA [id number] [place] [address] [place] MCHC (RBC) [Mass/Vol] 33.9 g/dL Normal 30.5-36.0 [facility] Comment on above: Order Comment: Speci men Type: BLOOD SPECIMENOrdering Facility: [facility] Address: [address] [place] [address] Performed By: #### 5 7021-8 ####[facility] MILLTOWNCLIA [id number] [address] LABORATORYCLIA [id number] [place] [address] [place] MCV (RBC) [Entitic vol] 88.9 fL Normal 80.0-100.0 [facility] Comment on above: Order Comment: Speci men Type: BLOOD SPECIMENOrdering Facility: [facility] Address: [address] [place] [address] Performed By: #### 5 7021-8 ####[facility] RIDGEWNCLIA [id number] [address] LABORATORYCLIA [id number] [place] [address] [place] Metamyelocytes/100 WBC (Bld) 1.0 % Normal [facility] Comment on above: Order Comment: Speci men Type: BLOOD SPECIMENOrdering Facility: [facility] Address: [address] [place] [address] Performed By: #### 5 7021-8 ####[facility] RIDGEWNCLIA [id number] [address] LABORATORYCLIA [id number] [place] [address] [place] Monocytes (Bld) [#/Vol] 2.97 10*3/uL High <0.87 [facility] Comment on above: Order Comment: Speci men Type: BLOOD SPECIMENOrdering Facility: [facility] Address: [address] [place] [address] Performed By: #### 5 7021-8 ####[facility] MILLTOWNCLIA [id number] [address] LABORATORYCLIA [id number] [place] [address] [place] Monocytes/100 WBC (Bld) 10.0 % Normal [facility] Comment on above: Order Comment: Speci men Type: BLOOD SPECIMENOrdering Facility: [facility] Address: [address] [place] [address] Performed By: #### 5 7021-8 ####[facility] P[facility] RIDGEWNCLIA [id number] [address] LABORATORYCLIA [id number] [place] [address] [place] MYELO% 5.0 % Normal [facility] Comment on above: Order Comment: Speci men Type: BLOOD SPECIMENOrdering Facility: [facility] Address: [address] [place] [address] Performed By: #### 5 7021-8 ####[facility] [id number] [address] LABORATORYCLIA [id number] [place] [address] [place] Neutrophils (Bld) [#/Vol] 23.42 10*3/uL High 1.45-7.50 [facility] Comment on above: Order Comment: Speci men Type: BLOOD SPECIMENOrdering Facility: [facility] Address: [address] [place] [address] Performed By: #### 5 7021-8 ####[facility]ITALNCLIA [id number] [address] LABORATORYCLIA [id number] [place] [address] [place] Neutrophils/100 WBC (Bld) 79.0 % Normal [facility] Comment on above: Order Comment: Speci men Type: BLOOD SPECIMENOrdering Facility: [facility] Address: [address] [place] [address] Performed By: #### 5 7021-8 ####[facility] MILLTOWNCLIA [id number] [address] LABORATORYCLIA [id number] [place] [address] [place] Nucleated RBC (Bld) [#/Vol] 10*3/uL Normal <0.01 [facility] Comment on above: Order Comment: Speci men Type: BLOOD SPECIMENOrdering Facility: [facility] Address: [address] [place] [address] Performed By: #### 5 7021-8 ####[facility] P[facility] RIDGEWTEMITOPELIA [id number] [address] LABORATORYCLIA [id number] [place] [address] [place] Nucleated RBC/100 WBC (Bld) [Ratio] 0.0 /100 WBC Normal [facility] Comment on above: Order Comment: Speci men Type: BLOOD SPECIMENOrdering Facility: [facility] Address: [address] [place] [address] Performed By: #### 5 7021-8 ####[facility]ITALNCLIA [id number] [address] LABORATORYCLIA [id number] [place] [address] [place] Ovalocytes LM Ql (Bld) Few Normal [facility] Comment on above: Order Comment: Speci men Type: BLOOD SPECIMENOrdering Facility: [facility] Address: [address] [place] [address] Performed By: #### 5 7021-8 ####[facility] RIDGEWNCLIA [id number] [address] LABORATORYCLIA [id number] [place] [address] [place] Platelet mean volume (Bld) [Entitic vol] 9.0 fL Normal 9.0-12.7 [facility] Comment on above: Order Comment: Speci men Type: BLOOD SPECIMENOrdering Facility: [facility] Address: [address] [place] [address] Performed By: #### 5 7021-8 ####[facility] RIDGEWNCLIA [id number] [address] LABORATORYCLIA [id number] [place] [address] [place] Platelets (Bld) [#/Vol] 390 10*3/uL Normal 150-400 [facility] Comment on above: Order Comment: Speci men Type: BLOOD SPECIMENOrdering Facility: [facility] Address: [address] [place] [address] Result Comment: No c lot detected. Performed By: #### 5 7021-8 ####[facility]ITALA [id number] [address] LABORATORYCLIA [id number] [place] [address] [place] Platelets Estimate (Bld) [#/Vol] Adequate Normal [facility] Comment on above: Order Comment: Speci men Type: BLOOD SPECIMENOrdering Facility: [facility] Address: [address] [place] [address] Performed By: #### 5 7021-8 ####[facility] GLENBEIGHLIA [id number] [address] LABORATORYCLIA [id number] [place] [address] [place] RBC (Bld) [#/Vol] 3.68 10*6/uL Low 3.90-5.[address] [facility] Comment on above: Order Comment: Speci men Type: BLOOD SPECIMENOrdering Facility: [facility] Address: [address] [place], [place] [address] [address] Performed By: #### 5 7021-8 ####[facility] MILLMARIELANCLIA [id number] [address] LABORATORYCLIA [id number] [place] [address] [place] RED CELL MORPH Reviewed: see result s of individual morphologies Normal [facility] Comment on above: Order Comment: Speci men Type: BLOOD SPECIMENOrdering Facility: [facility] Address: [address] [place] [address] [place] [address] Performed By: #### 5 7021-8 ####[facility] HOSPITALTEMITOPELIA [id number] [address] LABORATORYCLIA [id number] [place] [address] [place] Toxic granules LM Ql (Bld) Present Normal [facility] Comment on above: Order Comment: Speci men Type: BLOOD SPECIMENOrdering Facility: [facility] Address: Formerly named [facility] [place] [address] Performed By: #### 5 7021-8 ####[facility] HOSPITALTEMITOPELIA [id number] [address] LABORATORYCLIA [id number] [place] [address] [place] WBC (Bld) [#/Vol] 29.65 10*3/uL High 3.70-11.00 [facility] Comment on above: Order Comment: Speci men Type: BLOOD SPECIMENOrdering Facility: [facility] Address: Formerly named [facility] [place] [address] Performed By: #### 5 7021-8 ####[facility] MILLTOWNCLIA [id number] [address] LABORATORYCLIA [id number] [place] [address] [place] WBC Left Shift Ql (Bld) Present Normal [facility] Comment on above: Order Comment: Speci men Type: BLOOD SPECIMENOrdering Facility: [facility] Address: [address] [id number] Performed By: #### 5 7021-8 ####[facility] [id number] [address] LABORATORYCLIA [id number] [address] [place] CNPNon 10-13-2024 CNPN Normal [facility] NCS and/or EMG Patienton NCS and/or EMG Patient [facility]Neurology [address] [place] [address] MR#: [id number] Acct: [id number] Name: Everette HERBERT Rep #: [id number] : 1960 64 From: Bishnu Harrison MD Referring Dr: Santana Arellano NP FURNACE HAND-C Status: RE G CLI Location: PSN Date: [...] Multi Select Codes Neurology Neurology Interp Codes: 36188-79 Musc test done w/n test comp (interp) (1) and 45916-77 Nrv cndj test 7-8 studies (interp) 10/13/24 1521 Date Bishnu Harrison MD CC: Santana GREENWOOD McMorrow; Dr. Bishnu Harrison MD; Dr. Hellen Lafleur MD Date Dictated: 10/13/241515 Date Transcribed: 10/13/241515 Architectural Inspector: Signed Normal [facility] CNPNon 10-09-2024 CNPN Normal [facility] Supplemental Reporton 2024 Supplemental Report . Pathology Reports Accession: Collected Date/Time: Received Date/Time: Pathologist: [id number] 08/26/2024 14:57 EDT 08/27/2024 14:04 EDT MD MARY TOWNSEND Supplemental Report SUPPLEMENTAL: [employer] [address] [place], [place] [id number] [facility] (CDx) NGS Results Complete report scanned into chart. Verified by Diagnostic interpretation performed at [facility] MARY TOWNSEND MD Sign out Date: 10/07/2024 16:19 Performing Lab: [facility], [address] [place] [address] Pathology Dept Final Surgical Pathology Report DIAGNOSIS: [...] All parts labelled with patient name and [id number] Received in formalin labelled undesignated in the container Are multiple cylindrical breast core biopsies and core fragments ranging from less than 0.1 to 1 cm. Specimen removed from patient @1457. Placed in Formalin Fixative @6930. Cold Ischemia time 11 minutes. Total time in formalin (in processor) 1 hrs. Total Time in Formalin Fixative 34.5 hrs. TS-1 Mirna Arroyo, Pathologists' Javascript Web Developer (ASCP) Performed by MIRNA ARROYO MICROSCOPIC DESCRIPTION: The microscopic examination is performed, except in the case of Gross Only. Pathology Reports Accession: Collected Date/Time: Received Date/Time: Pathologist: [id number] 08/26/2024 14:57 EDT 08/27/2024 14:04 EDT MD MARY TOWNSEND Verified by Pathology Report verified by [facility] MARY TOWNSEND MD Sign out Date: 09/02/2024 13:54 Performing Lab: [facility], [address] [place] [address] Pathology Dept Disclaimer If ancillary studies were utilized, the following Laboratory Developed Test (LDT) disclaimer will apply: Under CLIA requirements, [facility] Pathology Laboratory is qualified to perform high complexity testing. For all ancillary stains, positive and negative controls stain appropriately. Performance characteristics of immunohistochemical and chromogenic in-situ hybridization tests have been determined by [facility] Pathology Laboratory. These tests are used for clinical purposes, They should not be regarded as investigational or for research. Normal [facility] MAIN CBC W Auto Differential pane l (Bld)on 10-06-2024 Basophils (Bld) [#/Vol] 0.04 10*3/uL Normal <0.11 [facility] Comment on above: Order Comment: Speci men Type: BLOOD SPECIMENOrdering Facility: [facility] Address: [address] [place] [address] Performed By: #### 5 7021-8 ####[facility] [id number] [address] LABORATORYCLIA [id number] [address] [place] Basophils/100 WBC (Bld) 2.0 % Normal [facility] Comment on above: Order Comment: Speci men Type: BLOOD SPECIMENOrdering Facility: [facility] Address: [address] [place] [address] Performed By: #### 5 7021-8 ####[facility] MILLTOWNCLIA [id number] [address] LABORATORYCLIA [id number] [place] [address] [place] Dacrocytes LM Ql (Bld) Few Normal [facility] Comment on above: Order Comment: Speci men Type: BLOOD SPECIMENOrdering Facility: [facility] Address: [address] [place] [address] Performed By: #### 5 7021-8 ####[facility] H[facility]PITALNCLIA [id number] [address] LABORATORYCLIA [id number] [place] [address] [place] Differential cell count method Nom (Bld) Manual Normal [facility] Comment on above: Order Comment: Speci men Type: BLOOD SPECIMENOrdering Facility: [facility] Address: [address] [place] [address] Performed By: #### 5 7021-8 ####[facility] PINE RIDGEWNCLIA [id number] [address] LABORATORYCLIA [id number] [place] [address] [place] Eosinophils (Bld) [#/Vol] 0.17 10*3/uL Normal <0.46 [facility] Comment on above: Order Comment: Speci men Type: BLOOD SPECIMENOrdering Facility: [facility] Address: [address] [place] [address] Performed By: #### 5 7021-8 ####[facility] MILLTOWNCLIA [id number] [address] LABORATORYCLIA [id number] [place] [address] [place] Eosinophils/100 WBC (Bld) 9.0 % Normal [facility] Comment on above: Order Comment: Speci men Type: BLOOD SPECIMENOrdering Facility: [facility] Address: [address] [place] [address] Performed By: #### 5 7021-8 ####[facility] GLENBEIGHLIA [id number] [address] LABORATORYCLIA [id number] [place] [address] [place] Erythrocyte distribution width (RBC) [Ratio] 14.4 % Normal 11.5-15.0 [facility] Comment on above: Order Comment: Speci men Type: BLOOD SPECIMENOrdering Facility: [facility] Address: [address] [place] [address] Performed By: #### 5 7021-8 ####[facility] HOSPITALA [id number] [address] LABORATORYIA [id number] [place] [address] [place] Hematocrit (Bld) [Volume fraction] 32.7 % Low 36.0-46.0 [facility] Comment on above: Order Comment: Speci men Type: BLOOD SPECIMENOrdering Facility: [facility] Address: [address] [place] [address] Performed By: #### 5 7021-8 ####[facility]ITALA [id number] [address] LABORATORYIA [id number] [place] [address] [place] Hemoglobin (Bld) [Mass/Vol] 11.0 g/dL Low 11.5-15.5 [facility] Comment on above: Order Comment: Speci men Type: BLOOD SPECIMENOrdering Facility: [facility] Address: [address] [place] [address] Performed By: #### 5 7021-8 ####[facility] DORAWTEMITOPELIA [id number] [address] LABORATORYCLIA [id number] [place] [address] [place] Lymphocytes (Bld) [#/Vol] 0.45 10*3/uL Low 1.00-4.00 [facility] Comment on above: Order Comment: Speci men Type: BLOOD SPECIMENOrdering Facility: [facility] Address: [address] [place] [address] Performed By: #### 5 7021-8 ####[facility] GLENBEIGHLIA [id number] [address] LABORATORYCLIA [id number] [address] [place] Lymphocytes/100 WBC (Bld) 24.0 % Normal [facility] Comment on above: Order Comment: Speci men Type: BLOOD SPECIMENOrdering Facility: [facility] Address: [address] [place] [address] Performed By: #### 5 7021-8 ####[facility] HOSPITALTEMITOPELIA [id number] [address] LABORATORYCLIA [id number] [place] [address] [place] MCH (RBC) [Entitic mass] 29.6 pg Normal 26.0-34.0 [facility] Comment on above: Order Comment: Speci men Type: BLOOD SPECIMENOrdering Facility: [facility] Address: [address] [place] [address] Performed By: #### 5 7021-8 ####[facility] HOSPITALTEMITOPEA [id number] [place] [address] LABORATORYCLIA [id number] [place] [address] [place] MCHC (RBC) [Mass/Vol] 33.6 g/dL Normal 30.5-36.0 [facility] Comment on above: Order Comment: Speci men Type: BLOOD SPECIMENOrdering Facility: [facility] Address: [address] [place] [address] Performed By: #### 5 7021-8 ####[facility] MILLTOWNCLIA [id number] [address] LABORATORYCLIA [id number] [address] [place] [facility] MCV (RBC) [Entitic vol] 87.9 fL Normal 80.0-100.0 [facility] Comment on above: Order Comment: Speci men Type: BLOOD SPECIMENOrdering Facility: [facility] Address: [address] [place] [address] Performed By: #### 5 7021-8 ####[facility] INSTITUTETOWNCLIA [id number] [address] LABORATORYCLIA [id number] [address] [place] Monocytes (Bld) [#/Vol] 0.32 10*3/uL Normal <0.87 [facility] Comment on above: Order Comment: Speci men Type: BLOOD SPECIMENOrdering Facility: [facility] Address: [address] [place] [address] Performed By: #### 5 7021-8 ####[facility] MILLTOWNCLIA [id number] [address] LABORATORYCLIA [id number] [place] [address] [place] Monocytes/100 WBC (Bld) 17.0 % Normal [facility] Comment on above: Order Comment: Speci men Type: BLOOD SPECIMENOrdering Facility: [facility] Address: [address] [place] [address] Performed By: #### 5 7021-8 ####[facility] OMARTOWNCLIA [id number] [address] LABORATORYCLIA [id number] [place] [address] [place] Neutrophils (Bld) [#/Vol] 0.90 10*3/uL Low 1.45-7.50 [facility] Comment on above: Order Comment: Speci men Type: BLOOD SPECIMENOrdering Facility: [facility] Address: [address] [place] [address] Performed By: #### 5 7021-8 ####[facility] GLENBEIGHLIA [id number] [address] LABORATORYCLIA [id number] [place] [address] [place] Neutrophils/100 WBC (Bld) 48.0 % Normal [facility] Comment on above: Order Comment: Speci men Type: BLOOD SPECIMENOrdering Facility: [facility] Address: [address] [place] [address] Performed By: #### 5 7021-8 ####[facility] HOSPITALNCLIA [id number] [address] LABORATORYCLIA [id number] [place] [address] [place] Nucleated RBC (Bld) [#/Vol] 10*3/uL Normal <0.01 [facility] Comment on above: Order Comment: Speci men Type: BLOOD SPECIMENOrdering Facility: [facility] Address: [address] [place] [address] Performed By: #### 5 7021-8 ####[facility] INSTITUTETOWNCLIA [id number] [address] LABORATORYCLIA [id number] [place] [address] [place] Nucleated RBC/100 WBC (Bld) [Ratio] 0.0 /100 WBC Normal [facility] Comment on above: Order Comment: Speci men Type: BLOOD SPECIMENOrdering Facility: [facility] Address: [address] [place] [address] Performed By: #### 5 7021-8 ####[facility]PITALA [id number] [address] LABORATORYIA [id number] [place] [address] [place] Ovalocytes LM Ql (Bld) Few Normal [facility] Comment on above: Order Comment: Speci men Type: BLOOD SPECIMENOrdering Facility: [facility] Address: [address] [place] [address] Performed By: #### 5 7021-8 ####[facility] HOSPITALTEMITOPELIA [id number] [address] LABORATORYIA [id number] [place] [address] [place] Platelet mean volume (Bld) [Entitic vol] 8.7 fL Low 9.0-12.7 [facility] Comment on above: Order Comment: Speci men Type: BLOOD SPECIMENOrdering Facility: [facility] Address: [address] [place] [address] Performed By: #### 5 7021-8 ####[facility] GLENBEIGHLIA [id number] [address] LABORATORYIA [id number] [place] [address] [place] Platelets (Bld) [#/Vol] 256 10*3/uL Normal 150-400 [facility] Comment on above: Order Comment: Speci men Type: BLOOD SPECIMENOrdering Facility: [facility] Address: [address] [place] [address] Performed By: #### 5 7021-8 ####[facility] PINE RIDGEWNCLIA [id number] [address] LABORATORYCLIA [id number] [place] [address] [place] Platelets Estimate (Bld) [#/Vol] Adequate Normal [facility] Comment on above: Order Comment: Speci men Type: BLOOD SPECIMENOrdering Facility: [facility] Address: [address] [place] [address] Performed By: #### 5 7021-8 ####[facility]ITALA [id number] [address] LABORATORYCLIA [id number] [place] [address] [place] RBC (Bld) [#/Vol] 3.72 10*6/uL Low 3.90-5.[address] [facility] Comment on above: Order Comment: Speci men Type: BLOOD SPECIMENOrdering Facility: [facility] Address: [address] [place] [address] Performed By: #### 5 7021-8 ####[facility]ITALA [id number] [address] LABORATORYCLIA [id number] [place] [address] [place] RED CELL MORPH Reviewed: see result s of individual morphologies Normal [facility] Comment on above: Order Comment: Speci men Type: BLOOD SPECIMENOrdering Facility: [facility] Address: [address] [place] [address] Performed By: #### 5 7021-8 ####[facility] DORAWNCLIA [id number] [address] LABORATORYCLIA [id number] [place] [address] [place] WBC (Bld) [#/Vol] 1.88 10*3/uL Low 3.70-11.[address] [facility] Comment on above: Order Comment: Speci men Type: BLOOD SPECIMENOrdering Facility: [facility] Address: [address] [place] [address] Result Comment: No c lot detected. Performed By: #### 5 7021-8 ####[facility] HOSPITALTEMITOPEA [id number] [address] LABORATORYCLIA [id number] [place] [address] [place] CNPNon 10-06-2024 CNPN Normal [facility] CNPNon 10-05-2024 CNPN Normal [facility] CBC W Auto Differential pane l (Bld)on 09-29-2024 Basophils (Bld) [#/Vol] 0.05 10*3/uL Normal <0.11 [facility] Comment on above: Order Comment: Speci men Type: BLOOD SPECIMENOrdering Facility: [facility] Address: [address] [place] [address] Performed By: #### 5 7021-8 ####[facility] PINE RIDGEWTEMITOPELIA [id number] [address] [place] Basophils/100 WBC (Bld) 1.2 % Normal [facility] Comment on above: Order Comment: Speci men Type: BLOOD SPECIMENOrdering Facility: [facility] Address: [address] [place] [address] Performed By: #### 5 7021-8 ####[facility] HOSPITALNCLIA [id number] [place] [address] [place] Differential cell count method Nom (Bld) Auto Normal [facility] Comment on above: Order Comment: Speci men Type: BLOOD SPECIMENOrdering Facility: [facility] Address: [address] [place] [address] Performed By: #### 5 7021-8 ####[facility] HOSPITALNCLAKEVIEW [facility] [id number] [place] [address] [place] Eosinophils (Bld) [#/Vol] 0.41 10*3/uL Normal <0.46 [facility] Comment on above: Order Comment: Speci men Type: BLOOD SPECIMENOrdering Facility: [facility] Address: [address] [place] [address] Performed By: #### 5 7021-8 ####[facility]E [id number] [place] [address] [place] Eosinophils/100 WBC (Bld) 10.0 % Normal [facility] Comment on above: Order Comment: Speci men Type: BLOOD SPECIMENOrdering Facility: [facility] Address: [address] [place] [address] Performed By: #### 5 7021-8 ####[facility] HOSPITALNCLI [id number] [place] [address] [place] Erythrocyte distribution width (RBC) [Ratio] 14.2 % Normal 11.5-15.0 [facility] Comment on above: Order Comment: Speci men Type: BLOOD SPECIMENOrdering Facility: [facility] Address: [address] [place] [address] Performed By: #### 5 7021-8 ####[facility] [id number] [place] [address] [place] Hematocrit (Bld) [Volume fraction] 33.4 % Low 36.0-46.0 [facility] Comment on above: Order Comment: Speci men Type: BLOOD SPECIMENOrdering Facility: [facility] Address: [address] [place] [address] Performed By: #### 5 7021-8 ####[facility] HOSPITALNANO [id number] [place] [address] [place] Hemoglobin (Bld) [Mass/Vol] 11.4 g/dL Low 11.5-15.5 [facility] Comment on above: Order Comment: Speci men Type: BLOOD SPECIMENOrdering Facility: [facility] Address: [address] [place] [address] Performed By: #### 5 7021-8 ####[facility] [id number] [place] [address] [place] Immature granulocytes (Bld) [#/Vol] 0.03 10*3/uL Normal <0.10 [facility] Comment on above: Order Comment: Speci men Type: BLOOD SPECIMENOrdering Facility: [facility] Address: [address] [place] [address] Performed By: #### 5 7021-8 ####[facility]ITALA [id number] [place] [address] [place] Immature granulocytes/100 WBC (Bld) 0.7 % Normal [facility] Comment on above: Order Comment: Speci men Type: BLOOD SPECIMENOrdering Facility: [facility] Address: [address] [place] [address] Performed By: #### 5 7021-8 ####[facility] HOSPITALNCLIA [id number] [place] [address] [place] Lymphocytes (Bld) [#/Vol] 0.54 10*3/uL Low 1.00-4.00 [facility] Comment on above: Order Comment: Speci men Type: BLOOD SPECIMENOrdering Facility: [facility] Address: [address] [place] [address] Performed By: #### 5 7021-8 ####[facility] OMARPkNCLIA [id number] [place] [address] [place] Lymphocytes/100 WBC (Bld) 13.1 % Normal [facility] Comment on above: Order Comment: Speci men Type: BLOOD SPECIMENOrdering Facility: [facility] Address: [address] [place] [address] Performed By: #### 5 7021-8 ####[facility] HOSPITALBLAKEA [id number] [place] [address] [place] MCH (RBC) [Entitic mass] 29.8 pg Normal 26.0-34.0 [facility] Comment on above: Order Comment: Speci men Type: BLOOD SPECIMENOrdering Facility: [facility] Address: [address] [place] [address] Performed By: #### 5 7021-8 ####[facility]OSPITALTEMITOPEELICIABrandee [id number] [place] [address] [place] MCHC (RBC) [Mass/Vol] 34.1 g/dL Normal 30.5-36.0 [facility] Comment on above: Order Comment: Speci men Type: BLOOD SPECIMENOrdering Facility: [facility] Address: [address] [place] [address] Performed By: #### 5 7021-8 ####[facility]OSPITALTEMITOPELIBrandee [id number] [place] [address] [place] MCV (RBC) [Entitic vol] 87.4 fL Normal 80.0-100.0 [facility] Comment on above: Order Comment: Speci men Type: BLOOD SPECIMENOrdering Facility: [facility] Address: [address] [place] [address] Performed By: #### 5 7021-8 ####[facility] HOSPITALNCLIA [id number] [place] [address] [place] Monocytes (Bld) [#/Vol] 0.49 10*3/uL Normal <0.87 [facility] Comment on above: Order Comment: Speci men Type: BLOOD SPECIMENOrdering Facility: [facility] Address: [address] [place] [address] Performed By: #### 5 7021-8 ####[facility]ITALA [id number] [place] [address] [place] Monocytes/100 WBC (Bld) 11.9 % Normal [facility] Comment on above: Order Comment: Speci men Type: BLOOD SPECIMENOrdering Facility: [facility] Address: [address] [place] [address] Performed By: #### 5 7021-8 ####[facility] [id number] [place] [address] [place] Neutrophils (Bld) [#/Vol] 2.59 10*3/uL Normal 1.45-7.50 [facility] Comment on above: Order Comment: Speci men Type: BLOOD SPECIMENOrdering Facility: [facility] Address: [address] [place] [address] Performed By: #### 5 7021-8 ####[facility]ITALA [id number] [place] [address] [place] Neutrophils/100 WBC (Bld) 63.1 % Normal [facility] Comment on above: Order Comment: Speci men Type: BLOOD SPECIMENOrdering Facility: [facility] Address: [address] [place] [address] Performed By: #### 5 7021-8 ####[facility]ITALA [id number] [place] [address] [place] Nucleated RBC (Bld) [#/Vol] 10*3/uL Normal <0.01 [facility] Comment on above: Order Comment: Speci men Type: BLOOD SPECIMENOrdering Facility: [facility] Address: [address] [place] [address] Performed By: #### 5 7021-8 ####[facility] JERO [id number] [place] [address] [place] Nucleated RBC/100 WBC (Bld) [Ratio] 0.0 /100 WBC Normal [facility] Comment on above: Order Comment: Speci men Type: BLOOD SPECIMENOrdering Facility: [facility] Address: [address] [place] [address] Performed By: #### 5 7021-8 ####[facility] OMARBABSON PARKNANO [id number] [place] [address] [place] Platelet mean volume (Bld) [Entitic vol] 8.7 fL Low 9.0-12.7 [facility] Comment on above: Order Comment: Speci men Type: BLOOD SPECIMENOrdering Facility: [facility] Address: [address] [place] [address] Performed By: #### 5 7021-8 ####[facility] HOSPITALNANO [id number] [place] [address] [place] Platelets (Bld) [#/Vol] 245 10*3/uL Normal 150-400 [facility] Comment on above: Order Comment: Speci men Type: BLOOD SPECIMENOrdering Facility: [facility] Address: [address] [place] [address] Performed By: #### 5 7021-8 ####[facility] HOSPITALTEMITOPELIA [id number] [place] [address] [place] RBC (Bld) [#/Vol] 3.82 10*6/uL Low 3.90-5.[address] [facility] Comment on above: Order Comment: Speci men Type: BLOOD SPECIMENOrdering Facility: [facility] Address: [address] [place] [address] Performed By: #### 5 7021-8 ####[facility] CENTERSG NELSONTOWNCLIA [id number] [place] [address] [place] WBC (Bld) [#/Vol] 4.11 10*3/uL Normal 3.70-11.[address] [facility] Comment on above: Order Comment: Speci men Type: BLOOD SPECIMENOrdering Facility: [facility] Address: [address] [place] [address] Performed By: #### 5 7021-8 ####[facility] VUNCLIA [id number] [place] [address] [place] CNPNon 09-29-2024 CNPN Normal [facility] CNOVSPon 09-28-2024 CNOVSP Normal [facility] CNOVon 09-24-2024 CNOV Normal [facility] CNPNon 09-24-2024 CNPN Normal [facility] CNPNon 09-22-2024 CNPN Normal [facility] CT CHEST W IVCONon CT CHEST W IVCON * * *Final Report* * * DATE OF EXAM: Sep 22 2024 7:42PM [facility] 0539 - CT CHEST W IVCON / [...] findings. IMPRESSION: No evidence of metastatic disease. Architectural Inspector: AMALIA Transcribe Date/Time: Sep 23 2024 8:02A Dictated by : CRISTIANA SAPP MD This examination was interpreted and the report reviewed and electronically signed by: CRISTIANA SAPP MD on Sep 23 2024 8:06AM EST [id number] [facility] CBC W Auto Differential pane l (Bld)on 09-21-2024 Basophils (Bld) [#/Vol] 0.08 10*3/uL Normal <0.11 [facility] Comment on above: Order Comment: Speci men Type: BLOOD SPECIMENOrdering Facility: [facility] Address: [address] [place] [address] Performed By: #### 5 7021-8 ####[facility] LABCLIA [id number] [place] [address] [place] Basophils/100 WBC (Bld) 1.8 % Normal [facility] Comment on above: Order Comment: Speci men Type: BLOOD SPECIMENOrdering Facility: [facility] Address: [address] [place] [address] Performed By: #### 5 7021-8 ####[facility] LABCLIA [id number] [place] [address] [place] Differential cell count method Nom (Bld) Auto Normal [facility] Comment on above: Order Comment: Speci men Type: BLOOD SPECIMENOrdering Facility: [facility] Address: [address] [place] [address] Performed By: #### 5 7021-8 ####[facility] LABCLIA [id number] [place] [address] [place] Eosinophils (Bld) [#/Vol] 0.14 10*3/uL Normal <0.46 [facility] Comment on above: Order Comment: Speci men Type: BLOOD SPECIMENOrdering Facility: [facility] Address: [address] [place] [address] Performed By: #### 5 7021-8 ####[facility] LABCLIA [id number] [place] [address] [place] Eosinophils/100 WBC (Bld) 3.2 % Normal [facility] Comment on above: Order Comment: Speci men Type: BLOOD SPECIMENOrdering Facility: [facility] Address: [address] [place] [address] Performed By: #### 5 7021-8 ####[facility] LABIA [id number] [address], [place] [address] [place] Erythrocyte distribution width (RBC) [Ratio] 14.3 % Normal 11.5-15.0 [facility] Comment on above: Order Comment: Speci men Type: BLOOD SPECIMENOrdering Facility: [facility] Address: [address] [place] [address] Performed By: #### 5 7021-8 ####[facility] LABIA [id number] [place] [address] [place] Hematocrit (Bld) [Volume fraction] 37.1 % Normal 36.0-46.0 [facility] Comment on above: Order Comment: Speci men Type: BLOOD SPECIMENOrdering Facility: [facility] Address: [address] [place] [address] Performed By: #### 5 7021-8 ####[facility] LABIA [id number] [place] [address] [place] Hemoglobin (Bld) [Mass/Vol] 12.4 g/dL Normal 11.5-15.5 [facility] Comment on above: Order Comment: Speci men Type: BLOOD SPECIMENOrdering Facility: [facility] Address: [address] [place] [address] Performed By: #### 5 7021-8 ####[facility] LABCLIA [id number] [address], [place] [address] [place] Immature granulocytes (Bld) [#/Vol] 0.07 10*3/uL Normal <0.10 [facility] Comment on above: Order Comment: Speci men Type: BLOOD SPECIMENOrdering Facility: [facility] Address: [address] [place] [address] Performed By: #### 5 7021-8 ####[facility] LABCLIA [id number] [place] [address] [place] Immature granulocytes/100 WBC (Bld) 1.6 % Normal [facility] Comment on above: Order Comment: Speci men Type: BLOOD SPECIMENOrdering Facility: [facility] Address: [address] [place] [address] Performed By: #### 5 7021-8 ####[facility] LABIA [id number] [place] [address] [place] Lymphocytes (Bld) [#/Vol] 0.98 10*3/uL Low 1.00-4.00 [facility] Comment on above: Order Comment: Speci men Type: BLOOD SPECIMENOrdering Facility: [facility] Address: [address] [place] [address] Performed By: #### 5 7021-8 ####[facility] LABCLIA [id number] [place] [address] [place] Lymphocytes/100 WBC (Bld) 22.1 % Normal [facility] Comment on above: Order Comment: Speci men Type: BLOOD SPECIMENOrdering Facility: [facility] Address: [address] [place] [address] Performed By: #### 5 7021-8 ####[facility] LABCLIA [id number] [place] [address] [place] MCH (RBC) [Entitic mass] 29.7 pg Normal 26.0-34.0 [facility] Comment on above: Order Comment: Speci men Type: BLOOD SPECIMENOrdering Facility: [facility] Address: [address] [place] [address] Performed By: #### 5 7021-8 ####[facility] LABCLIA [id number] [place] [address] [place] MCHC (RBC) [Mass/Vol] 33.4 g/dL Normal 30.5-36.0 [facility] Comment on above: Order Comment: Speci men Type: BLOOD SPECIMENOrdering Facility: [facility] Address: [address] [place] [address] Performed By: #### 5 7021-8 ####[facility] LABIA [id number] [place] [address] [place] MCV (RBC) [Entitic vol] 88.8 fL Normal 80.0-100.0 [facility] Comment on above: Order Comment: Speci men Type: BLOOD SPECIMENOrdering Facility: [facility] Address: [address] [place] [address] Performed By: #### 5 7021-8 ####[facility] LABIA [id number] [place] [address] [place] Monocytes (Bld) [#/Vol] 0.75 10*3/uL Normal <0.87 [facility] Comment on above: Order Comment: Speci men Type: BLOOD SPECIMENOrdering Facility: [facility] Address: [address] [place] [address] Performed By: #### 5 7021-8 ####[facility] LABIA [id number] [address] [place] Monocytes/100 WBC (Bld) 16.9 % Normal [facility] Comment on above: Order Comment: Speci men Type: BLOOD SPECIMENOrdering Facility: [facility] Address: [address] [place], [place] [address] Performed By: #### 5 7021-8 ####[facility] LABCLIA [id number] [place] [address] [place] Neutrophils (Bld) [#/Vol] 2.41 10*3/uL Normal 1.45-7.50 [facility] Comment on above: Order Comment: Speci men Type: BLOOD SPECIMENOrdering Facility: [facility] Address: [address] [place] [address] Performed By: #### 5 7021-8 ####[facility] LABCLIA [id number] [place] [address] [place] Neutrophils/100 WBC (Bld) 54.4 % Normal [facility] Comment on above: Order Comment: Speci men Type: BLOOD SPECIMENOrdering Facility: [facility] Address: [address] [place] [address] Performed By: #### 5 7021-8 ####[facility] LABCLIA [id number] [facility] [address], [place] [address] [place] Nucleated RBC (Bld) [#/Vol] 10*3/uL Normal <0.01 [facility] Comment on above: Order Comment: Speci men Type: BLOOD SPECIMENOrdering Facility: [facility] Address: [address] [place] [address] Performed By: #### 5 7021-8 ####[facility] LABCLIA [id number] [facility] [place] [address] [place] Nucleated RBC/100 WBC (Bld) [Ratio] 0.0 /100 WBC Normal [facility] Comment on above: Order Comment: Speci men Type: BLOOD SPECIMENOrdering Facility: [facility] Address: [address] [place] [address] Performed By: #### 5 7021-8 ####[facility] LABCLIA [id number] [address], [facility] [place] Platelet mean volume (Bld) [Entitic vol] 9.1 fL Normal 9.0-12.7 [facility] Comment on above: Order Comment: Speci men Type: BLOOD SPECIMENOrdering Facility: [facility] Address: [address] [place] [address] Performed By: #### 5 7021-8 ####[facility] LABCLIA [id number] [place] [address] [place] Platelets (Bld) [#/Vol] 310 10*3/uL Normal 150-400 [facility] Comment on above: Order Comment: Speci men Type: BLOOD SPECIMENOrdering Facility: [facility] Address: [address] [place] [address] Performed By: #### 5 7021-8 ####[facility] LABCLIA [id number] [place] [address] [place] RBC (Bld) [#/Vol] 4.18 10*6/uL Normal 3.90-5.[address] [facility] Comment on above: Order Comment: Speci men Type: BLOOD SPECIMENOrdering Facility: [facility] Address: [address] [place] [address] Performed By: #### 5 7021-8 ####[facility] LABIA [id number] [place] [address] [place] WBC (Bld) [#/Vol] 4.43 10*3/uL Normal 3.70-11.[address] [facility] Comment on above: Order Comment: Speci men Type: BLOOD SPECIMENOrdering Facility: [facility] Address: [address] [place] [address] Performed By: #### 5 7021-8 ####[facility] LABCLIA [id number] [place] [address] [place] CNOVSPon 09-21-2024 CNOVSP Normal [facility] CNPNon 09-21-2024 CNPN Normal [facility] Cancer Ag15-3 SerPl-aCncon 0 09-21-2024 Cancer Ag 15-3 Qn 30.9 U/mL High <26.0 [facility] Comment on above: Order Comment: Speci men Type: BLOOD SPECIMENOrdering Facility: [facility] Address: [address] [place] [address] Result Comment: The CA 15-3 test methodology used is the Electrochemiluminescence Immunoassay by [employer]. Results obtained with different methods or kits cannot be used interchangeably. Performed By: #### 3 024-7, 3016-3, 6875-9, 2143-6 ####[facility] LABCLIA [id number] [place] [address] [place] Comprehensive metabolic 2000 panelon 09-21-2024 Albumin [Mass/Vol] 4.3 g/dL Normal 3.9-4.9 [facility] Comment on above: Order Comment: Speci men Type: BLOOD SPECIMENOrdering Facility: [facility] Address: [address] [place] [address] Performed By: #### 2 4323-8 ####[facility] MILLTOWNCLIA [id number] [place] [address] [place] ALP [Catalytic activity/Vol] 73 U/L Normal 34-123 [facility] Comment on above: Order Comment: Speci men Type: BLOOD SPECIMENOrdering Facility: [facility] Address: [address] [place] [address] Performed By: #### 2 4323-8 ####[facility] MILLTOWNCLIA [id number] [place] [address] [place] ALT [Catalytic activity/Vol] 12 U/L Normal 7-38 [facility] Comment on above: Order Comment: Speci men Type: BLOOD SPECIMENOrdering Facility: [facility] Address: [address] [place] [address] Performed By: #### 2 4323-8 ####[facility] MILLTOWNCLIA [id number] [place] [address] [place] Anion gap [Moles/Vol] 13 mmol/L Normal 8-15 [facility] Comment on above: Order Comment: Speci men Type: BLOOD SPECIMENOrdering Facility: [facility] Address: [address] [place] [address] Performed By: #### 2 4323-8 ####[facility] MILLTOWNCLIA [id number] [place] [address] [place] AST [Catalytic activity/Vol] 18 U/L Normal 13-35 [facility] Comment on above: Order Comment: Speci men Type: BLOOD SPECIMENOrdering Facility: [facility] Address: [address] [place] [address] Performed By: #### 2 4323-8 ####[facility]ITAL[facility] [id number] [place] [address] [place] Bilirubin [Mass/Vol] 0.2 mg/dL Normal 0.2-1.3 [facility] Comment on above: Order Comment: Speci men Type: BLOOD SPECIMENOrdering Facility: [facility] Address: [address] [place] [address] Performed By: #### 2 4323-8 ####[facility]GEWNCLIA [id number] [place] [address] [place] Calcium [Mass/Vol] 10.1 mg/dL Normal 8.5-10.2 [facility] Comment on above: Order Comment: Speci men Type: BLOOD SPECIMENOrdering Facility: [facility] Address: [address] [place] [address] Performed By: #### 2 4323-8 ####[facility] MILLTOWNCLIA [id number] [place] [address] [place] Chloride [Moles/Vol] 96 mmol/L Low 98-107 [facility] Comment on above: Order Comment: Speci men Type: BLOOD SPECIMENOrdering Facility: [facility] Address: [address] [place] [address] Performed By: #### 2 4323-8 ####[facility] OMARBABSON PARKNCLI [id number] [place] [address] [place] CO2 [Moles/Vol] 27 mmol/L Normal 22-30 [facility] Comment on above: Order Comment: Speci men Type: BLOOD SPECIMENOrdering Facility: [facility] Address: [address] [place] [address] Performed By: #### 2 4323-8 ####[facility] [id number] [place] [address] [place] Creatinine [Mass/Vol] 0.63 mg/dL Normal 0.58-0.96 [facility] Comment on above: Order Comment: Speci men Type: BLOOD SPECIMENOrdering Facility: [facility] Address: [address] [place] [address] Performed By: #### 2 4323-8 ####[facility]ITALNCLIA [id number] [address] Creatinine and Glomerular filtration rate.predicted panel (S/P/Bld) 99 mL/min/1.73m??? Normal >=60 [facility] Comment on above: Order Comment: Speci men Type: BLOOD SPECIMENOrdering Facility: [facility] Address: [address] [place] [address] Result Comment: Alayna mated Glomerular Filtration Rate [...] actual GFR. Performed By: #### 2 4323-8 ####[facility] GLENBEIGHLIA [id number] [place] [address] [place] Glucose [Mass/Vol] 97 mg/dL Normal 74-99 [facility] Comment on above: Order Comment: Speci men Type: BLOOD SPECIMENOrdering Facility: [facility] Address: [address] [place], [place] [address] Result Comment: The [place] Diabetes Association (ADA) provides guidance for cutoff [...] Standards of Medical Care in Diabetes 2016, [place] [employer] Association. Diabetes Care. 2016.39(Suppl 1). Performed By: #### 2 4323-8 ####[facility] MILLTOWNCLIA [id number] [place] [address] [place] Potassium [Moles/Vol] 3.7 mmol/L Normal 3.7-5.1 [facility] Comment on above: Order Comment: Speci men Type: BLOOD SPECIMENOrdering Facility: [facility] Address: [address] [place] [address] Performed By: #### 2 4323-8 ####[facility] MILLTOWNCLIA [id number] [place] [address] [place] Protein [Mass/Vol] 6.8 g/dL Normal 6.3-8.0 [facility] Comment on above: Order Comment: Speci men Type: BLOOD SPECIMENOrdering Facility: [facility] Address: [address] [place], [place] [address] Performed By: #### 2 4323-8 ####[facility] MILLTOWNCLIA [id number] [place] [address] [place] Sodium [Moles/Vol] 136 mmol/L Normal 136-144 [facility] Comment on above: Order Comment: Speci men Type: BLOOD SPECIMENOrdering Facility: [facility] Address: [address] [place] [address] Performed By: #### 2 4323-8 ####[facility] [id number] [place] [address] [place] Urea nitrogen [Mass/Vol] 19 mg/dL Normal 7-21 [facility] Comment on above: Order Comment: Speci men Type: BLOOD SPECIMENOrdering Facility: [facility] Address: [address] [place] [address] Performed By: #### 2 4323-8 ####[facility] [id number] [place] [address] [place] Cortis SerPl-ncon 09-22-19 25 Cortisol [Mass/Vol] 5.6 ug/dL Normal 4.8-19.[address] [facility] Comment on above: Order Comment: Speci men Type: BLOOD SPECIMENOrdering Facility: [facility] Address: [address] [place] [address] Result Comment: Prov ided reference range is from 6-10 AM sample collection time.Cortisol Reference Range: 6-10 AM = 4.8-19.5 ug/dL, 4-8 PM = 2.5-11.9 ug/dL Performed By: #### 3 024-7, 3016-3, 6875-9, 2143-6 ####[facility] LABCLIA [id number] [address] [place] REFERRAL FOR ADDITIONAL BIOM ARKER AND MOLECULAR TESTINGOrdered By: Sylvia Dunn on 09-21-2024 [facility] Comment on above: Request has been rec eived for evaluation and the results will be issued separately. [facility] REFERRAL FOR ADDITIONAL BIOM ARKER AND MOLECULAR TESTINGon 09-21-2024 REFERRAL FOR ADDITIONAL BIOMARKER AND MOLECULAR TESTING Normal [facility] Comment on above: Order Comment: Speci men Type: TISSUE SPECIMENOrdering Facility: [facility] Address: [address] [place] [address] Result Comment: Requ est has been received for evaluation and the results will be issued separately. Performed By: #### A PMOL ####[facility] [id number] [place] [address] [place] T4 Free SerPl-mCncon 025 Free T4 [Mass/Vol] 1.1 ng/dL Normal 0.9-1.7 [facility] Comment on above: Order Comment: Speci men Type: BLOOD SPECIMENOrdering Facility: [facility] Address: [address] [place] [address] Performed By: #### 3 024-7, 3016-3, 6875-9, 3-6 ####[facility] LABCLIA [id number] [place] [address] [place] TSH SerPl-aCncon 09-21-2024 TSH Qn 2.200 m[IU]/L Normal 0.270-4.20 0 [facility] Comment on above: Order Comment: Speci men Type: BLOOD SPECIMENOrdering Facility: [facility] Address: [address] [place] [address] Performed By: #### 3 024-7, 3016-3, 6875-9, 6 ####[facility] LABIA [id number] [address] [address] [place] CNPNon 09-18-2024 CNPN Normal [facility] Cerv Spine 4 or 5 Viewson Cerv Spine 4 or 5 Views [facility] [address] [place] [address] Cerv Spine 4 or 5 Views MR#: [id number] Acct: [id number] Name: Everette HERBERT Rep #: [id number] : 1960 F 64 From: Ike burroughs MD PCP: Dr. Hellen Lafleur MD Status: REG CLI Study: Cerv Spine 4 or 5 Views Date of Exam: 09/17/24 Exam# [id number] Ordering Dr: Alec Kong PROCEDURE: CERV SPINE [...] anterolisthesis of C7 on T1. Reading Location: [place] [address] CC: Dr. Alec Kong MD; Dr. Hellen Lafleur MD Architectural Inspector: Signed [facility] 09-15-2024 [facility] Normal [facility] CBC W Auto Differential pane l (Bld)on 09-08-2024 Basophils (Bld) [#/Vol] 0.05 10*3/uL Normal <0.11 [facility] Comment on above: Order Comment: Speci men Type: BLOOD SPECIMENOrdering Facility: [facility] Address: [address] [place], [place] [address] Performed By: #### 5 7021-8 ####[facility] [id number] [place] [address] [place] Basophils/100 WBC (Bld) 1.9 % Normal [facility] Comment on above: Order Comment: Speci men Type: BLOOD SPECIMENOrdering Facility: [facility] Address: [address] [place] [address] Performed By: #### 5 7021-8 ####[facility]PITALTEMITOPELIA [id number] [place] [address] [place] Differential cell count method Nom (Bld) Auto Normal [facility] Comment on above: Order Comment: Speci men Type: BLOOD SPECIMENOrdering Facility: [facility] Address: [address] [place] [address] Performed By: #### 5 7021-8 ####[facility] RIDGEWTEMITOPELIA [id number] [place] [address] [place] Eosinophils (Bld) [#/Vol] 0.21 10*3/uL Normal <0.46 [facility] Comment on above: Order Comment: Speci men Type: BLOOD SPECIMENOrdering Facility: [facility] Address: [address] [place] [address] Performed By: #### 5 7021-8 ####[facility]ITAL[facility] [id number] [place] [address] [place] Eosinophils/100 WBC (Bld) 7.9 % Normal [facility] Comment on above: Order Comment: Speci men Type: BLOOD SPECIMENOrdering Facility: [facility] Address: [address] [place] [address] Performed By: #### 5 7021-8 ####[facility]ITALNCLIA [id number] [place] [address] [place] Erythrocyte distribution width (RBC) [Ratio] 13.8 % Normal 11.5-15.0 [facility] Comment on above: Order Comment: Speci men Type: BLOOD SPECIMENOrdering Facility: [facility] Address: [address] [place] [address] Performed By: #### 5 7021-8 ####[facility] OMARWNCLIA [id number] [place] [address] [place] Hematocrit (Bld) [Volume fraction] 35.3 % Low 36.0-46.0 [facility] Comment on above: Order Comment: Speci men Type: BLOOD SPECIMENOrdering Facility: [facility] Address: [address] [place] [address] Performed By: #### 5 7021-8 ####[facility] GLENBEIGHLIA [id number] [place] [address] [place] Hemoglobin (Bld) [Mass/Vol] 11.8 g/dL Normal 11.5-15.5 [facility] Comment on above: Order Comment: Speci men Type: BLOOD SPECIMENOrdering Facility: [facility] Address: [address] [place] [address] Performed By: #### 5 7021-8 ####[facility]ITALA [id number] [place] [address] [place] Immature granulocytes (Bld) [#/Vol] 10*3/uL Normal <0.10 [facility] Comment on above: Order Comment: Speci men Type: BLOOD SPECIMENOrdering Facility: [facility] Address: [address] [place] [address] Performed By: #### 5 7021-8 ####[facility] GLENBEIGHLIA [id number] [place] [address] [place] Immature granulocytes/100 WBC (Bld) 0.4 % Normal [facility] Comment on above: Order Comment: Speci men Type: BLOOD SPECIMENOrdering Facility: [facility] Address: [address] [place] [address] Performed By: #### 5 7021-8 ####[facility] GLENBEIGHLIA [id number] [place] [address] [place] Lymphocytes (Bld) [#/Vol] 0.44 10*3/uL Low 1.00-4.00 [facility] Comment on above: Order Comment: Speci men Type: BLOOD SPECIMENOrdering Facility: [facility] Address: [address] [place] [address] Performed By: #### 5 7021-8 ####[facility] [id number] [place] [address] [place] Lymphocytes/100 WBC (Bld) 16.6 % Normal [facility] Comment on above: Order Comment: Speci men Type: BLOOD SPECIMENOrdering Facility: [facility] Address: [address] [place] [address] Performed By: #### 5 7021-8 ####[facility] [id number] [place] [address] [place] MCH (RBC) [Entitic mass] 29.3 pg Normal 26.0-34.0 [facility] Comment on above: Order Comment: Speci men Type: BLOOD SPECIMENOrdering Facility: [facility] Address: [address] [place] [address] Performed By: #### 5 7021-8 ####[facility] HOSPITALNCLI [id number] [place] [address] [place] MCHC (RBC) [Mass/Vol] 33.4 g/dL Normal 30.5-36.0 [facility] Comment on above: Order Comment: Speci men Type: BLOOD SPECIMENOrdering Facility: [facility] Address: [address] [place] [address] Performed By: #### 5 7021-8 ####[facility]ITALNCLI [id number] [place] [address] [place] MCV (RBC) [Entitic vol] 87.6 fL Normal 80.0-100.0 [facility] Comment on above: Order Comment: Speci men Type: BLOOD SPECIMENOrdering Facility: [facility] Address: [address] [place] [address] Performed By: #### 5 7021-8 ####[facility] OMARBRIDGET [id number] [place] [address] [place] Monocytes (Bld) [#/Vol] 0.24 10*3/uL Normal <0.87 [facility] Comment on above: Order Comment: Speci men Type: BLOOD SPECIMENOrdering Facility: [facility] Address: [address] [place] [address] Performed By: #### 5 7021-8 ####[facility]PITALTEMITOPELAKEVIEW HOSPITAL [id number] [place] [address] [place] Monocytes/100 WBC (Bld) 9.1 % Normal [facility] Comment on above: Order Comment: Speci men Type: BLOOD SPECIMENOrdering Facility: [facility] Address: [address] [place] [address] Performed By: #### 5 7021-8 ####[facility] [id number] [place] [address] [place] Neutrophils (Bld) [#/Vol] 1.70 10*3/uL Normal 1.45-7.50 [facility] Comment on above: Order Comment: Speci men Type: BLOOD SPECIMENOrdering Facility: [facility] Address: [address] [place] [address] Performed By: #### 5 7021-8 ####[facility] HOSPITALNCA [id number] [place] [address] [place] Neutrophils/100 WBC (Bld) 64.1 % Normal [facility] Comment on above: Order Comment: Speci men Type: BLOOD SPECIMENOrdering Facility: [facility] Address: [address] [place] [address] Performed By: #### 5 7021-8 ####[facility] HOSPITALNCLIA [id number] [place] [address] [place] Nucleated RBC (Bld) [#/Vol] 10*3/uL Normal <0.01 [facility] Comment on above: Order Comment: Speci men Type: BLOOD SPECIMENOrdering Facility: [facility] Address: [address] [place] [address] Performed By: #### 5 7021-8 ####[facility] [id number] [place] [address] [place] Nucleated RBC/100 WBC (Bld) [Ratio] 0.0 /100 WBC Normal [facility] Comment on above: Order Comment: Speci men Type: BLOOD SPECIMENOrdering Facility: [facility] Address: [address] [place] [address] Performed By: #### 5 7021-8 ####[facility] [id number] [place] [address] [place] Platelet mean volume (Bld) [Entitic vol] 8.7 fL Low 9.0-12.7 [facility] Comment on above: Order Comment: Speci men Type: BLOOD SPECIMENOrdering Facility: [facility] Address: [address] [place] [address] Performed By: #### 5 7021-8 ####[facility] GLENBEIGHLI [id number] [place] [address] [place] Platelets (Bld) [#/Vol] 280 10*3/uL Normal 150-400 [facility] Comment on above: Order Comment: Speci men Type: BLOOD SPECIMENOrdering Facility: [facility] Address: [address] [place] [address] Performed By: #### 5 7021-8 ####[facility] [id number] [place] [address] [place] RBC (Bld) [#/Vol] 4.03 10*6/uL Normal 3.90-5.[address] [facility] Comment on above: Order Comment: Speci men Type: BLOOD SPECIMENOrdering Facility: [facility] Address: [address] [place] [address] Performed By: #### 5 7021-8 ####[facility] [id number] [place] [address] [place] WBC (Bld) [#/Vol] 2.65 10*3/uL Low 3.70-11.[address] [facility] Comment on above: Order Comment: Speci men Type: BLOOD SPECIMENOrdering Facility: [facility] Address: [address] [place] [address] Performed By: #### 5 7021-8 ####[facility] HOSPITALNCA [id number] [place] [address] [place] Cancer Ag15-3 SerPl-aCncon 0 09-08-2024 Cancer Ag 15-3 Qn 29.9 U/mL High <26.0 [facility] Comment on above: Order Comment: Speci men Type: BLOOD SPECIMENOrdering Facility: [facility] Address: [address] [place] [address] Result Comment: The CA 15-3 test methodology used is the Electrochemiluminescence Immunoassay by [employer]. Results obtained with different methods or kits cannot be used interchangeably. Performed By: #### 6 875-9, 3024-7, 3016-3, 2143-6 ####[facility] LABCLIA [id number] [place] [address] [place] Comprehensive metabolic 2000 panelon 09-08-2024 Albumin [Mass/Vol] 4.7 g/dL Normal 3.9-4.9 [facility] Comment on above: Order Comment: Speci men Type: BLOOD SPECIMENOrdering Facility: [facility] Address: [address] [place] [address] Performed By: #### 2 4323-8 ####[facility] GALINA MILLTOWNCLIA [id number] [place] [address] [place] ALP [Catalytic activity/Vol] 64 U/L Normal 34-123 [facility] Comment on above: Order Comment: Speci men Type: BLOOD SPECIMENOrdering Facility: [facility] Address: [address] [place] [address] Performed By: #### 2 4323-8 ####[facility] MILLTOWNCLIA [id number] [place] [address] [place] ALT [Catalytic activity/Vol] 13 U/L Normal 7-38 [facility] Comment on above: Order Comment: Speci men Type: BLOOD SPECIMENOrdering Facility: [facility] Address: [address] [place] [address] Performed By: #### 2 4323-8 ####[facility] PINE RIDGEWNCLIA [id number] [place] [address] [place] Anion gap [Moles/Vol] 10 mmol/L Normal 8-15 [facility] Comment on above: Order Comment: Speci men Type: BLOOD SPECIMENOrdering Facility: [facility] Address: [address] [place] [address] Performed By: #### 2 4323-8 ####[facility] MILLTOWNCLIA [id number] [place] [address] [place] AST [Catalytic activity/Vol] 20 U/L Normal 13-35 [facility] Comment on above: Order Comment: Speci men Type: BLOOD SPECIMENOrdering Facility: [facility] Address: [address] [place] [address] Performed By: #### 2 4323-8 ####[facility] MILLTOWNCLIA [id number] [place] [address] [place] Bilirubin [Mass/Vol] 0.3 mg/dL Normal 0.2-1.3 [facility] Comment on above: Order Comment: Speci men Type: BLOOD SPECIMENOrdering Facility: [facility] Address: [address] [place] [address] Performed By: #### 2 4323-8 ####[facility] GALINA MILLTOWNCLIA [id number] [place] [address] [place] Calcium [Mass/Vol] 9.4 mg/dL Normal 8.5-10.2 [facility] Comment on above: Order Comment: Speci men Type: BLOOD SPECIMENOrdering Facility: [facility] Address: [address] [place] [address] Performed By: #### 2 4323-8 ####[facility] PINE RIDGEWVALIA [id number] [place] [address] [place] Chloride [Moles/Vol] 97 mmol/L Low 98-107 [facility] Comment on above: Order Comment: Speci men Type: BLOOD SPECIMENOrdering Facility: [facility] Address: [address] [place] [address] Performed By: #### 2 4323-8 ####[facility]ITALNCLIA [id number] [place] [address] [place] CO2 [Moles/Vol] 25 mmol/L Normal 22-30 [facility] Comment on above: Order Comment: Speci men Type: BLOOD SPECIMENOrdering Facility: [facility] Address: [address] [place] [address] Performed By: #### 2 4323-8 ####[facility] MILLBABSON PARKNCLIA [id number] [place] [address] [place] Creatinine [Mass/Vol] 0.63 mg/dL Normal 0.58-0.96 [facility] Comment on above: Order Comment: Speci men Type: BLOOD SPECIMENOrdering Facility: [facility] Address: [address] [place] [address] Performed By: #### 2 4323-8 ####[facility] [id number] [place] [address] [place] Creatinine and Glomerular filtration rate.predicted panel (S/P/Bld) 99 mL/min/1.73m??? Normal >=60 [facility] Comment on above: Order Comment: Speci men Type: BLOOD SPECIMENOrdering Facility: [facility] Address: [address] [place] [address] Result Comment: Alayna mated Glomerular Filtration Rate [...] GFR. Performed By: #### 2 4323-8 ####[facility] [id number] [place] [address] [place] Glucose [Mass/Vol] 94 mg/dL Normal 74-99 [facility] Comment on above: Order Comment: [place] cherelle Type: BLOOD SPECIMENOrdering Facility: [facility] Address: [address] [place] [address] Result Comment: The [place] Diabetes Association (ADA) provides guidance for cutoff [...] Standards of Medical Care in Diabetes 2016, [place] Diabetes Association. Diabetes Care. 2016.39(Suppl 1). Performed By: #### 2 4323-8 ####[facility] GALINA MILLTOWNCLIA [id number] [place] [address] [place] Potassium [Moles/Vol] 4.2 mmol/L Normal 3.7-5.1 [facility] Comment on above: Order Comment: Speci men Type: BLOOD SPECIMENOrdering Facility: [facility] Address: [address] [place] [address] Performed By: #### 2 4323-8 ####[facility] MILLTOWNCLIA [id number] [place] [address] [place] Protein [Mass/Vol] 6.9 g/dL Normal 6.3-8.0 [facility] Comment on above: Order Comment: Speci men Type: BLOOD SPECIMENOrdering Facility: [facility] Address: [address] [place] [address] Performed By: #### 2 4323-8 ####[facility] HOSPITALTEMITOPELIA [id number] [place] [address] [place] Sodium [Moles/Vol] 132 mmol/L Low 136-144 [facility] Comment on above: Order Comment: Speci men Type: BLOOD SPECIMENOrdering Facility: [facility] Address: [address] [place] [address] Performed By: #### 2 4323-8 ####[facility] MILLTOWNCLIA [id number] [place] [address] [place] Urea nitrogen [Mass/Vol] 11 mg/dL Normal 7-21 [facility] Comment on above: Order Comment: Speci men Type: BLOOD SPECIMENOrdering Facility: [facility] Address: [address] [place], [place] [address] Performed By: #### 2 4323-8 ####[facility] PINE RIDGEWNCLIA [id number] [place] [address] [place] Cortis SerPl-mCncon 09-09-19 25 Cortisol [Mass/Vol] 6.6 ug/dL Normal 4.8-19.[address] [facility] Comment on above: Order Comment: Speci men Type: BLOOD SPECIMENOrdering Facility: [facility] Address: [address] [place] [address] Result Comment: Prov ided reference range is from 6-10 AM sample collection time.Cortisol Reference Range: 6-10 AM = 4.8-19.5 ug/dL, 4-8 PM = 2.5-11.9 ug/dL Performed By: #### 6 875-9, 3024-7, 3016-3, 2142-6 ####[facility] LABCLIA [id number] [place] [id number] [place] T4 Free SerPl-mCncon 025 Free T4 [Mass/Vol] 1.1 ng/dL Normal 0.9-1.7 [facility] Comment on above: Order Comment: Speci men Type: BLOOD SPECIMENOrdering Facility: [facility] Address: [address] [place] [address] Performed By: #### 6 875-9, 3024-7, 3016-3, 6 ####[facility] LABCLIA [id number] [place] [id number] [place] TSH SerPl-aCncon 09-08-2024 TSH Qn 1.070 m[IU]/L Normal 0.270-4.20 0 [facility] Comment on above: Order Comment: Speci men Type: BLOOD SPECIMENOrdering Facility: [facility] Address: [address] [place] [address] Performed By: #### 6 875-9, 3024-7, 3016-3, 6 ####[facility] LABCLIA [id number] [place] [id number] [place] CNPNon 09-03-2024 CNPN Normal [facility] Final Surgical Pathology Rep gretchen 09-02-2024 Final Surgical Pathology Report . Pathology Reports Accession: Collected Date/Time: Received Date/Time: Pathologist: [id number] 08/26/2024 14:57 EDT 08/27/2024 14:04 MD MARY GUTHRIE Final Surgical Pathology Report DIAGNOSIS: BREAST, RIGHT, [...] All parts labelled with patient name and [id number] Received in formalin labelled undesignated in the container Are multiple cylindrical breast core biopsies and core fragments ranging from less than 0.1 to 1 cm. Specimen removed from patient @1457. Placed in Formalin Fixative @1508. Cold Ischemia time 11 minutes. Total time in formalin (in processor) 1 hrs. Total Time in Formalin Fixative 34.5 hrs. TS-1 Mirna Arroyo, Pathologists' Javascript Web Developer (ASCP) Performed by MIRNA ARROYO MICROSCOPIC DESCRIPTION: The microscopic examination is performed, except in the case of Gross Only. Verified by Pathology Report verified by [facility] MARY TOWNSEND MD Sign out Date: 09/02/2024 13:54 Performing Lab: [facility], [address] [place] [address] Pathology Dept Disclaimer If ancillary studies were utilized, the following Laboratory Developed Test (LDT) disclaimer will apply: Under CLIA requirements, [facility]ology Laboratory is qualified to perform high complexity testing. For all ancillary stains, positive and negative controls stain appropriately. Performance characteristics of immunohistochemical and chromogenic in-situ hybridization tests have been determined by [facility] Laboratory. These tests are used for clinical purposes, They should not be regarded as investigational or for research. Normal [facility] MAIN US BIOPSY BREAST RIGHT 1ST L [...] PM Ordering Provider: RAFIQ ANTONIO ORIGINAL FROM: [address] [address] PROCEDURE FOR: CARRIE IrvinAlfie HERBERT [address] [place] [id number] Home: PID#: [id number] Exam#: [id number] : 1960 Age: 64 TO: RAFIQ ANTONIO [place] [address] Fax: NO FAX EXAMINATION: ULTRASOUND-GUIDED BIOPSY RIGHT [...] titanium clip was not placed. A GRISEL patrol police sergeant device was placed in the targeted location, [...] 08/27/2024 6:20:44 AM Ordering Provider: RAFIQ ANTONIO Apartment Leasing Specialist: KELSI DELACRUZ [facility] CBC W Auto Differential pane l (Bld)on 09-01-2024 Basophils (Bld) [#/Vol] 0.05 10*3/uL Normal <0.11 [facility] Comment on above: Order Comment: Speci men Type: BLOOD SPECIMENOrdering Facility: [facility] Address: [address] [place] [address] Performed By: #### 5 7021-8 ####[facility]PITALA [id number] [place] [address] [place] Basophils/100 WBC (Bld) 1.4 % Normal [facility] Comment on above: Order Comment: Speci men Type: BLOOD SPECIMENOrdering Facility: [facility] Address: [address] [place] [address] Performed By: #### 5 7021-8 ####[facility]ITALA [id number] [place] [address] [place] Differential cell count method Nom (Bld) Auto Normal [facility] Comment on above: Order Comment: Speci men Type: BLOOD SPECIMENOrdering Facility: [facility] Address: [address] [place] [address] Performed By: #### 5 7021-8 ####[facility] GLENBEIGHLIA [id number] [place] [address] [place] Eosinophils (Bld) [#/Vol] 0.26 10*3/uL Normal <0.46 [facility] Comment on above: Order Comment: Speci men Type: BLOOD SPECIMENOrdering Facility: [facility] Address: [address] [place] [address] Performed By: #### 5 7021-8 ####[facility] OMARBABSON PARKNCELICIA [id number] [place] [address] [place] Eosinophils/100 WBC (Bld) 7.3 % Normal [facility] Comment on above: Order Comment: Speci men Type: BLOOD SPECIMENOrdering Facility: [facility] Address: [address] [place] [address] Performed By: #### 5 7021-8 ####[facility]ITALNCLAKEVIEW [facility] [id number] [place] [address] [place] Erythrocyte distribution width (RBC) [Ratio] 13.6 % Normal 11.5-15.0 [facility] Comment on above: Order Comment: Speci men Type: BLOOD SPECIMENOrdering Facility: [facility] Address: [address] [place] [address] Performed By: #### 5 7021-8 ####[facility] HOSPITALA [id number] [place] [address] [place] Hematocrit (Bld) [Volume fraction] 33.9 % Low 36.0-46.0 [facility] Comment on above: Order Comment: Speci men Type: BLOOD SPECIMENOrdering Facility: [facility] Address: [address] [place] [address] Performed By: #### 5 7021-8 ####[facility] HOSPITALNCA [id number] [place] [address] [place] Hemoglobin (Bld) [Mass/Vol] 11.6 g/dL Normal 11.5-15.5 [facility] Comment on above: Order Comment: Speci men Type: BLOOD SPECIMENOrdering Facility: [facility] Address: [address] [place], [place] [address] Performed By: #### 5 7021-8 ####[facility] MILLWNCLIA [id number] [place] [address] [place] Immature granulocytes (Bld) [#/Vol] 10*3/uL Normal <0.10 [facility] Comment on above: Order Comment: Speci men Type: BLOOD SPECIMENOrdering Facility: [facility] Address: [address] [place] [address] Performed By: #### 5 7021-8 ####[facility] GLENBEIGHLIA [id number] [place] [address] [place] Immature granulocytes/100 WBC (Bld) 0.3 % Normal [facility] Comment on above: Order Comment: Speci men Type: BLOOD SPECIMENOrdering Facility: [facility] Address: [address] [place] [address] Performed By: #### 5 7021-8 ####[facility] GLENBEIGHLIA [id number] [place] [address] [place] Lymphocytes (Bld) [#/Vol] 0.60 10*3/uL Low 1.00-4.00 [facility] Comment on above: Order Comment: Speci men Type: BLOOD SPECIMENOrdering Facility: [facility] Address: [address] [place] [address] Performed By: #### 5 7021-8 ####[facility] HOSPITALNCLIA [id number] [place] [address] [place] Lymphocytes/100 WBC (Bld) 16.9 % Normal [facility] Comment on above: Order Comment: Speci men Type: BLOOD SPECIMENOrdering Facility: [facility] Address: [address] [place] [address] Performed By: #### 5 7021-8 ####[facility] HOSPITALNCLIA [id number] [place] [address] [place] MCH (RBC) [Entitic mass] 29.9 pg Normal 26.0-34.0 [facility] Comment on above: Order Comment: Speci men Type: BLOOD SPECIMENOrdering Facility: [facility] Address: [address] [place] [address] Performed By: #### 5 7021-8 ####[facility] HOSPITALNANO [id number] [place] [address] [place] MCHC (RBC) [Mass/Vol] 34.2 g/dL Normal 30.5-36.0 [facility] Comment on above: Order Comment: Speci men Type: BLOOD SPECIMENOrdering Facility: [facility] Address: [address] [place] [address] Performed By: #### 5 7021-8 ####[facility] HOSPITALTEMITOPEBrandee [id number] [place] [address] [place] MCV (RBC) [Entitic vol] 87.4 fL Normal 80.0-100.0 [facility] Comment on above: Order Comment: Speci men Type: BLOOD SPECIMENOrdering Facility: [facility] Address: [address] [place] [address] Performed By: #### 5 7021-8 ####[facility] HOSPITALTEMITOPEBrandee [id number] [place] [address] [place] Monocytes (Bld) [#/Vol] 0.38 10*3/uL Normal <0.87 [facility] Comment on above: Order Comment: Speci men Type: BLOOD SPECIMENOrdering Facility: [facility] Address: [address] [place] [address] Performed By: #### 5 7021-8 ####[facility] HOSPITALNCLIA [id number] [place] [address] [place] Monocytes/100 WBC (Bld) 10.7 % Normal [facility] Comment on above: Order Comment: Speci men Type: BLOOD SPECIMENOrdering Facility: [facility] Address: [address] [place] [address] Performed By: #### 5 7021-8 ####[facility] OMARLALILIA [id number] [place] [address] [place] Neutrophils (Bld) [#/Vol] 2.26 10*3/uL Normal 1.45-7.50 [facility] Comment on above: Order Comment: Speci men Type: BLOOD SPECIMENOrdering Facility: [facility] Address: [address] [place] [address] Performed By: #### 5 7021-8 ####[facility] GLENBEIGHLIA [id number] [place] [address] [place] Neutrophils/100 WBC (Bld) 63.4 % Normal [facility] Comment on above: Order Comment: Speci men Type: BLOOD SPECIMENOrdering Facility: [facility] Address: [address] [place] [address] Performed By: #### 5 7021-8 ####[facility] GLENBEIGHLIA [id number] [place] [address] [place] Nucleated RBC (Bld) [#/Vol] 10*3/uL Normal <0.01 [facility] Comment on above: Order Comment: Speci men Type: BLOOD SPECIMENOrdering Facility: [facility] Address: [address] [place] [address] Performed By: #### 5 7021-8 ####[facility]PITALNCLIA [id number] [place] [address] [place] Nucleated RBC/100 WBC (Bld) [Ratio] 0.0 /100 WBC Normal [facility] Comment on above: Order Comment: Speci men Type: BLOOD SPECIMENOrdering Facility: [facility] Address: [address] [place] [address] Performed By: #### 5 7021-8 ####[facility] MILLDAVIDWNCLIA [id number] [place] [address] [place] Platelet mean volume (Bld) [Entitic vol] 9.0 fL Normal 9.0-12.7 [facility] Comment on above: Order Comment: Speci men Type: BLOOD SPECIMENOrdering Facility: [facility] Address: [address] [place], [place] [address] Performed By: #### 5 7021-8 ####[facility] H[facility]PITALNCLIA [id number] [place] [address] [place] Platelets (Bld) [#/Vol] 234 10*3/uL Normal 150-400 [facility] Comment on above: Order Comment: Speci men Type: BLOOD SPECIMENOrdering Facility: [facility] Address: [address] [place], [place] [address] Performed By: #### 5 7021-8 ####[facility] HOSPITALNCLIA [id number] [place] [address] [place] RBC (Bld) [#/Vol] 3.88 10*6/uL Low 3.90-5.[address] [facility] Comment on above: Order Comment: Speci men Type: BLOOD SPECIMENOrdering Facility: [facility] Address: [address] [place] [address] Performed By: #### 5 7021-8 ####[facility]ITALNCLIA [id number] [place] [address] [place] WBC (Bld) [#/Vol] 3.56 10*3/uL Low 3.70-11.[address] [facility] Comment on above: Order Comment: Speci men Type: BLOOD SPECIMENOrdering Facility: [facility] Address: [address] [place] [address] Performed By: #### 5 7021-8 ####[facility] HOSPITALNCLIA [id number] [place] [address] [place] MA MAMMOGRAM DIAGNOSTIC ASHLEE Perry 08-27-2024 MA MAMMOGRAM DIAGNOSTIC RIGHT ORIGINAL FROM: [facility] [address] [place] [address] PROCEDURE FOR: CARRIE HERBERT [address] [place] [address] Home: PID#: [id number] Exam#: [id number] : 1960 Age: 64 TO: RAFIQ ANTONIO APRN [facility] [address] [place] [address] Fax: NO FAX EXAMINATION: DIAGNOSTIC DIGITAL RIGHT BREAST MAMMOGRAM, 08/26/2024 3:12 pm TECHNIQUE: Diagnostic mammography of the right breast was performed. Computer aided detection was utilized in the interpretation of this exam. Current study was also evaluated with a Computer Aided Detection (CAD) system. COMPARISON: Mammogram August 11, 2024, ultrasound August 19, 2024, ultrasound-guided biopsy from the same date HISTORY: Post [employer] patrol police sergeant reflector placement FINDINGS: BREAST DENSITY: There are scattered areas of fibroglandular density. This exam was utilized for confirmation of placement of a [employer] patrol police sergeant infrared radar reflector in the right breast. The reflector is in the center of the lesion. 2 remote biopsy clips are seen in the same region. IMPRESSION: Confirmation of placement of a [employer] patrol police sergeant infrared radar reflector in appropriate position. BIRADS: BI-RADS: n/a RECALL: no message RECALL TYPE: unspecified LETTER SENT: No Letter Interpreted by: Silas Levy MD Preliminary Report By: Silas Levy MD Electronically signed By Silas Levy MD Dictated Date: 08/27/2024 6:20:53 AM Prelim Date: 08/27/2024 6:22:22 AM Sign Date: 08/27/2024 6:22:22 AM Ordering Provider: RAFIQ ANTONIO Apartment Leasing Specialist: DAGOBERTO RODRIGUEZ RT(R)(M) Mammogram BI-RADS: n/a Normal [facility] MAIN CBC W Auto Differential pane l (Bld)on 08-24-2024 Basophils (Bld) [#/Vol] 0.06 10*3/uL Normal <0.11 [facility] Comment on above: Order Comment: Speci men Type: BLOOD SPECIMENOrdering Facility: [facility] Address: [address] [place] [address] Performed By: #### 5 7021-8 ####[facility] MILLWVALIA [id number] [place] [address] [place] Basophils/100 WBC (Bld) 1.7 % Normal [facility] Comment on above: Order Comment: Speci men Type: BLOOD SPECIMENOrdering Facility: [facility] Address: [address] [place] [address] Performed By: #### 5 7021-8 ####[facility] [id number] [place] [address] [place] Differential cell count method Nom (Bld) Auto Normal [facility] Comment on above: Order Comment: Speci men Type: BLOOD SPECIMENOrdering Facility: [facility] Address: [address] [place] [address] Performed By: #### 5 7021-8 ####[facility] HOSPITALA [id number] [place] [address] [place] Eosinophils (Bld) [#/Vol] 0.23 10*3/uL Normal <0.46 [facility] Comment on above: Order Comment: Speci men Type: BLOOD SPECIMENOrdering Facility: [facility] Address: [address] [place] [address] Performed By: #### 5 7021-8 ####[facility]OSPITALA [id number] [place] [address] [place] Eosinophils/100 WBC (Bld) 6.7 % Normal [facility] Comment on above: Order Comment: Speci men Type: BLOOD SPECIMENOrdering Facility: [facility] Address: [address] [place] [address] Performed By: #### 5 7021-8 ####[facility] OMARWNCLIA [id number] [place] [address] [place] Erythrocyte distribution width (RBC) [Ratio] 13.7 % Normal 11.5-15.0 [facility] Comment on above: Order Comment: Speci men Type: BLOOD SPECIMENOrdering Facility: [facility] Address: [address] [place] [address] Performed By: #### 5 7021-8 ####[facility]ITALNCLIA [id number] [place] [address] [place] Hematocrit (Bld) [Volume fraction] 34.2 % Low 36.0-46.0 [facility] Comment on above: Order Comment: Speci men Type: BLOOD SPECIMENOrdering Facility: [facility] Address: [address] [place] [address] Performed By: #### 5 7021-8 ####[facility] GLENBEIGHLIA [id number] [place] [address] [place] Hemoglobin (Bld) [Mass/Vol] 11.6 g/dL Normal 11.5-15.5 [facility] Comment on above: Order Comment: Speci men Type: BLOOD SPECIMENOrdering Facility: [facility] Address: [address] [place] [address] Performed By: #### 5 7021-8 ####[facility] GLENBEIGHLIA [id number] [place] [address] [place] Immature granulocytes (Bld) [#/Vol] 10*3/uL Normal <0.10 [facility] Comment on above: Order Comment: Speci men Type: BLOOD SPECIMENOrdering Facility: [facility] Address: [address] [place] [address] Performed By: #### 5 7021-8 ####[facility]EN[facility]HL[facility] [id number] [place] [address] [place] Immature granulocytes/100 WBC (Bld) 0.6 % Normal [facility] Comment on above: Order Comment: Speci men Type: BLOOD SPECIMENOrdering Facility: [facility] Address: [address] [place] [address] Performed By: #### 5 7021-8 ####[facility] [id number] [place] [address] [place] Lymphocytes (Bld) [#/Vol] 0.72 10*3/uL Low 1.00-4.00 [facility] Comment on above: Order Comment: Speci men Type: BLOOD SPECIMENOrdering Facility: [facility] Address: [address] [place] [address] Performed By: #### 5 7021-8 ####[facility] [id number] [place] [address] [place] Lymphocytes/100 WBC (Bld) 21.0 % Normal [facility] Comment on above: Order Comment: Speci men Type: BLOOD SPECIMENOrdering Facility: [facility] Address: [address] [place] [address] Performed By: #### 5 7021-8 ####[facility] [id number] [place] [address] [place] MCH (RBC) [Entitic mass] 30.1 pg Normal 26.0-34.0 [facility] Comment on above: Order Comment: Speci men Type: BLOOD SPECIMENOrdering Facility: [facility] Address: [address] [place] [address] Performed By: #### 5 7021-8 ####[facility] [id number] [place] [address] [place] MCHC (RBC) [Mass/Vol] 33.9 g/dL Normal 30.5-36.0 [facility] Comment on above: Order Comment: Speci men Type: BLOOD SPECIMENOrdering Facility: [facility] Address: [address] [place] [address] Performed By: #### 5 7021-8 ####[facility]ITALNCLAKEVIEW [facility] [id number] [place] [address] [place] MCV (RBC) [Entitic vol] 88.6 fL Normal 80.0-100.0 [facility] Comment on above: Order Comment: Speci men Type: BLOOD SPECIMENOrdering Facility: [facility] Address: [address] [place] [address] Performed By: #### 5 7021-8 ####[facility]ITALNCLAKEVIEW H[facility] [id number] [place] [address] [place] Monocytes (Bld) [#/Vol] 0.67 10*3/uL Normal <0.87 [facility] Comment on above: Order Comment: Speci men Type: BLOOD SPECIMENOrdering Facility: [facility] Address: [address] [place] [address] Performed By: #### 5 7021-8 ####[facility] HOSPITALNCA [id number] [place] [address] [place] Monocytes/100 WBC (Bld) 19.5 % Normal [facility] Comment on above: Order Comment: Speci men Type: BLOOD SPECIMENOrdering Facility: [facility] Address: [address] [place] [address] Performed By: #### 5 7021-8 ####[facility]ITALNCLAKEVIEW [facility] [id number] [place] [address] [place] Neutrophils (Bld) [#/Vol] 1.73 10*3/uL Normal 1.45-7.50 [facility] Comment on above: Order Comment: Speci men Type: BLOOD SPECIMENOrdering Facility: [facility] Address: [address] [place] [address] Performed By: #### 5 7021-8 ####[facility]PITALNCLIA [id number] [place] [address] [place] [facility] Neutrophils/100 WBC (Bld) 50.5 % Normal [facility] Comment on above: Order Comment: Speci men Type: BLOOD SPECIMENOrdering Facility: [facility] Address: [address] [place] [address] Performed By: #### 5 7021-8 ####[facility]ITALNCLAKEVIEW [facility] [id number] [place] [address] [place] Nucleated RBC (Bld) [#/Vol] 10*3/uL Normal <0.01 [facility] Comment on above: Order Comment: Speci men Type: BLOOD SPECIMENOrdering Facility: [facility] Address: [address] [place] [address] Performed By: #### 5 7021-8 ####[facility]PITALA [id number] [place] [address] [place] Nucleated RBC/100 WBC (Bld) [Ratio] 0.0 /100 WBC Normal [facility] Comment on above: Order Comment: Speci men Type: BLOOD SPECIMENOrdering Facility: [facility] Address: [address] [place] [address] Performed By: #### 5 7021-8 ####[facility] GLENBEIGHLIA [id number] [place] [address] [place] Platelet mean volume (Bld) [Entitic vol] 8.6 fL Low 9.0-12.7 [facility] Comment on above: Order Comment: Speci men Type: BLOOD SPECIMENOrdering Facility: [facility] Address: [address] [place] [address] Performed By: #### 5 7021-8 ####[facility] [id number] [place] [address] [place] Platelets (Bld) [#/Vol] 269 10*3/uL Normal 150-400 [facility] Comment on above: Order Comment: Speci men Type: BLOOD SPECIMENOrdering Facility: [facility] Address: [address] [place] [address] Performed By: #### 5 7021-8 ####[facility] HOSPITALNANO [id number] [place] [address] [place] RBC (Bld) [#/Vol] 3.86 10*6/uL Low 3.90-5.[address] [facility] Comment on above: Order Comment: Speci men Type: BLOOD SPECIMENOrdering Facility: [facility] Address: [address] [place] [address] Performed By: #### 5 7021-8 ####[facility] HOSPITALNCLIBrandee [id number] [place] [address] [place] WBC (Bld) [#/Vol] 3.43 10*3/uL Low 3.70-11.[address] [facility] Comment on above: Order Comment: Speci men Type: BLOOD SPECIMENOrdering Facility: [facility] Address: [address] [place] [address] Performed By: #### 5 7021-8 ####[facility]PITALNCLIA [id number] [place] [address] [place] CNOVSPon 08-24-2024 CNOVSP Normal [facility] Comprehensive metabolic 2000 panelon 08-24-2024 Albumin [Mass/Vol] 4.3 g/dL Normal 3.9-4.9 [facility] Comment on above: Order Comment: Speci men Type: BLOOD SPECIMENOrdering Facility: [facility] Address: [address] [place] [address] Performed By: #### 2 4323-8 ####[facility] HOSPITALNANO [id number] [place] [address] [place] ALP [Catalytic activity/Vol] 67 U/L Normal 34-123 [facility] Comment on above: Order Comment: Speci men Type: BLOOD SPECIMENOrdering Facility: [facility] Address: [address] [place] [address] Performed By: #### 2 4323-8 ####[facility]PITALA [id number] [place] [address] [place] ALT [Catalytic activity/Vol] 12 U/L Normal 7-38 [facility] Comment on above: Order Comment: Speci men Type: BLOOD SPECIMENOrdering Facility: [facility] Address: [address] [place] [address] Performed By: #### 2 4323-8 ####[facility]ITALNCLAKEVIEW [facility] [id number] [place] [address] [place] Anion gap [Moles/Vol] 10 mmol/L Normal 8-15 [facility] Comment on above: Order Comment: Speci men Type: BLOOD SPECIMENOrdering Facility: [facility] Address: [address] [place] [address] Performed By: #### 2 4323-8 ####[facility]ENBEIGHLI [id number] [place] [address] [place] AST [Catalytic activity/Vol] 18 U/L Normal 13-35 [facility] Comment on above: Order Comment: Speci men Type: BLOOD SPECIMENOrdering Facility: [facility] Address: [address] [place] [address] Performed By: #### 2 4323-8 ####[facility]PITALNCLIA [id number] [place] [address] [place] Bilirubin [Mass/Vol] 0.2 mg/dL Normal 0.2-1.3 [facility] Comment on above: Order Comment: Speci men Type: BLOOD SPECIMENOrdering Facility: [facility] Address: [address] [place] [address] Performed By: #### 2 4323-8 ####[facility] JERO [id number] [place] [address] [place] Calcium [Mass/Vol] 9.4 mg/dL Normal 8.5-10.2 [facility] Comment on above: Order Comment: Speci men Type: BLOOD SPECIMENOrdering Facility: [facility] Address: [address] [place] [address] Performed By: #### 2 4323-8 ####[facility] HOSPITALNCLIBrandee [id number] [place] [address] [place] Chloride [Moles/Vol] 97 mmol/L Low 98-107 [facility] Comment on above: Order Comment: Speci men Type: BLOOD SPECIMENOrdering Facility: [facility] Address: [address] [place] [address] Performed By: #### 2 4323-8 ####[facility]OSPITALNCLIA [id number] [place] [address] [place] CO2 [Moles/Vol] 27 mmol/L Normal 22-30 [facility] Comment on above: Order Comment: Speci men Type: BLOOD SPECIMENOrdering Facility: [facility] Address: [address] [place] [address] Performed By: #### 2 4323-8 ####[facility]PITALNCLIA [id number] [place] [address] [place] Creatinine [Mass/Vol] 0.67 mg/dL Normal 0.58-0.96 [facility] Comment on above: Order Comment: Speci men Type: BLOOD SPECIMENOrdering Facility: [facility] Address: [address] [place] [address] Performed By: #### 2 4323-8 ####[facility]PITALNCLIA [id number] [place] [address] [place] Creatinine and Glomerular filtration rate.predicted panel (S/P/Bld) 97 mL/min/1.73m??? Normal >=60 [facility] Comment on above: Order Comment: [place] villarreal Type: BLOOD SPECIMENOrdering Facility: [facility] Address: [address] [place] [address] Result Comment: Alayna mated Glomerular Filtration Rate [...] GFR. Performed By: #### 2 4323-8 ####[facility] [id number] [place] [address] [place] Glucose [Mass/Vol] 125 mg/dL High 74-99 [facility] Comment on above: Order Comment: [place] villarreal Type: BLOOD SPECIMENOrdering Facility: [facility] Address: [address] [place] [address] Result Comment: The [place] Diabetes Association (ADA) provides guidance for cutoff [...] Standards of Medical Care in Diabetes 2016, [place] Diabetes Association. Diabetes Care. 2016.39(Suppl 1). Performed By: #### 2 4323-8 ####[facility] [id number] [place] [address] [place] Potassium [Moles/Vol] 4.2 mmol/L Normal 3.7-5.1 [facility] Comment on above: Order Comment: Speci men Type: BLOOD SPECIMENOrdering Facility: [facility] Address: [address] [place] [address] Performed By: #### 2 4323-8 ####[facility] PINE RIDGEWNCLIA [id number] [place] [address] [place] Protein [Mass/Vol] 6.8 g/dL Normal 6.3-8.0 [facility] Comment on above: Order Comment: Speci men Type: BLOOD SPECIMENOrdering Facility: [facility] Address: [address] [place] [address] Performed By: #### 2 4323-8 ####[facility] HOSPITALNCELICIAA [id number] [place] [address] [place] Sodium [Moles/Vol] 134 mmol/L Low 136-144 [facility] Comment on above: Order Comment: Speci men Type: BLOOD SPECIMENOrdering Facility: [facility] Address: [address] [place] [address] Performed By: #### 2 4323-8 ####[facility]ITALNCLIA [id number] [place] [address] [place] Urea nitrogen [Mass/Vol] 22 mg/dL High 7-21 [facility] Comment on above: Order Comment: Speci men Type: BLOOD SPECIMENOrdering Facility: [facility] Address: [address] [place] [address] Performed By: #### 2 4323-8 ####[facility]ITALNCLIA [id number] [place] [address] [place] MA MAMMOGRAM DIAGNOSTIC BILA TERAL W/TOMOon 08-19-2024 MA MAMMOGRAM DIAGNOSTIC BILATERAL W/GEO ORIGINAL FROM: [place] [id number] [place] [address] PROCEDURE FOR: CARRIE HERBERT [address] [place] [address] Home: PID#: [id number] Exam#: [id number] : 1960 Age: 64 TO: DEBBIE MERINO MD [address] [place] [address] Fax: NO FAX EXAMINATION: DIAGNOSTIC BILATERAL MAMMOGRAM [...] disease is not excludable. Correlate clinically. Reese Coronadozisara risk calculations do not apply for this [...] 08/19/2024 10:46:10 AM Ordering Provider: DEBBIE MERINO Apartment Leasing Specialist: JULIAN HOLLIS RT(R)(M) letter sent: Abnormal-Needs additional work up BI-RADS 0 Mammogram BI-RADS: 0 Indeterminate Normal [facility] US BREAST RIGHT LIMITEDon US BREAST RIGHT LIMITED ORIGINAL FROM: [address] [address] PROCEDURE FOR: CARRIE HERBERT [address] [place] [address] Home: PID#: [id number] Exam#: [id number] : 1960 Age: 64 TO: DEBBIE MERINO MD [address] [place] [address] Fax: NO FAX EXAMINATION: ULTRASOUND OF THE RIGHT BREAST 08/19/2024 8:58 am TECHNIQUE: Color flow and laughlin scale targeted ultrasound of the right breast were performed. Permanently stored images were reviewed. COMPARISON: 08/11/2024 mammogram and 08/04/2024 PET-CT scan from [facility]. HISTORY: ORDERING SYSTEM PROVIDED HISTORY: Reason for [...] 08/19/2024 10:49:23 AM Ordering Provider: DEBBIE MERINO Apartment Leasing Specialist: JESUSITA BETTS RDMS letter sent: Biopsy Recommended BI-RADS 4 and 5 Ultrasound BI-RADS: 4 Suspicious for malignancy Normal [facility] MAIN CBC W Auto Differential pane l (Bld)on 08-11-2024 Basophils (Bld) [#/Vol] 0.02 10*3/uL Normal <0.11 [facility] Comment on above: Order Comment: Speci men Type: BLOOD SPECIMENOrdering Facility: [facility] Address: [address] [place] [address] Performed By: #### 5 7021-8 ####[facility]PITALNANO [id number] [address] LABORATORYCLIA [id number] [address] Basophils/100 WBC (Bld) 1.0 % Normal [facility] Comment on above: Order Comment: Speci men Type: BLOOD SPECIMENOrdering Facility: [facility] Address: [address] [place] [address] Performed By: #### 5 7021-8 ####[facility] GLENBEIGHNATALI [id number] [address] LABORATORYCLIA [id number] [address] Differential cell count method Nom (Bld) Manual Normal [facility] Comment on above: Order Comment: Speci men Type: BLOOD SPECIMENOrdering Facility: [facility] Address: [address] [place] [address] Performed By: #### 5 7021-8 ####[facility]ITALNANO [id number] [place] [address] LABORATORYCLIA [id number] [place] [address] [place] Eosinophils (Bld) [#/Vol] 0.12 10*3/uL Normal <0.46 [facility] Comment on above: Order Comment: Speci men Type: BLOOD SPECIMENOrdering Facility: [facility] Address: [address] [place] [address] Performed By: #### 5 7021-8 ####[facility] MILLTOWNCLIA [id number] [address] LABORATORYCLIA [id number] [place] [address] [place] Eosinophils/100 WBC (Bld) 6.0 % Normal [facility] Comment on above: Order Comment: Speci men Type: BLOOD SPECIMENOrdering Facility: [facility] Address: [address] [place] [address] Performed By: #### 5 7021-8 ####[facility] MILLTOWNCLIA [id number] [address] LABORATORYCLIA [id number] [place] [address] [place] Erythrocyte distribution width (RBC) [Ratio] 13.2 % Normal 11.5-15.0 [facility] Comment on above: Order Comment: Speci men Type: BLOOD SPECIMENOrdering Facility: [facility] Address: [address] [place] [address] Performed By: #### 5 7021-8 ####[facility] INSTITUTETOWNCLIA [id number] [address] LABORATORYCLIA [id number] [place] [address] [place] Hematocrit (Bld) [Volume fraction] 33.8 % Low 36.0-46.0 [facility] Comment on above: Order Comment: Speci men Type: BLOOD SPECIMENOrdering Facility: [facility] Address: [address] [place] [address] Performed By: #### 5 7021-8 ####[facility] MILLTOWNCLIA [id number] [address] LABORATORYCLIA [id number] [place] [address] [place] Hemoglobin (Bld) [Mass/Vol] 11.5 g/dL Normal 11.5-15.5 [facility] Comment on above: Order Comment: Speci men Type: BLOOD SPECIMENOrdering Facility: [facility] Address: [address] [place] [address] Performed By: #### 5 7021-8 ####[facility] OMARDAVIDWNCLIA [id number] [address] LABORATORYCLIA [id number] [place] [address] [place] Lymphocytes (Bld) [#/Vol] 0.42 10*3/uL Low 1.00-4.00 [facility] Comment on above: Order Comment: Speci men Type: BLOOD SPECIMENOrdering Facility: [facility] Address: [address] [place] [address] Performed By: #### 5 7021-8 ####[facility] MILLTOWNCLIA [id number] [address] LABORATORYCLIA [id number] [place] [address] [place] Lymphocytes/100 WBC (Bld) 22.0 % Normal [facility] Comment on above: Order Comment: Speci men Type: BLOOD SPECIMENOrdering Facility: [facility] Address: [address] [place] [address] Performed By: #### 5 7021-8 ####[facility] HOSPITALTEMITOPELIA [id number] [address] LABORATORYCLIA [id number] [place] [address] [place] [facility] MCH (RBC) [Entitic mass] 29.9 pg Normal 26.0-34.0 [facility] Comment on above: Order Comment: Speci men Type: BLOOD SPECIMENOrdering Facility: [facility] Address: [address] [place] [address] Performed By: #### 5 7021-8 ####[facility] GLENBEIGHLIA [id number] [address] LABORATORYCLIA [id number] [place] [address] [place] [facility] MCHC (RBC) [Mass/Vol] 34.0 g/dL Normal 30.5-36.0 [facility] Comment on above: Order Comment: Speci men Type: BLOOD SPECIMENOrdering Facility: [facility] Address: [address] [place] [address] Performed By: #### 5 7021-8 ####[facility] GLENBEIGHLIA [id number] [address] LABORATORYCLIA [id number] [place] [address] [place] MCV (RBC) [Entitic vol] 87.8 fL Normal 80.0-100.0 [facility] Comment on above: Order Comment: Speci men Type: BLOOD SPECIMENOrdering Facility: [facility] Address: [address] [place] [address] Performed By: #### 5 7021-8 ####[facility] HOSPITALNCLIA [id number] [address] LABORATORYCLIA [id number] [place] [address] [place] Monocytes (Bld) [#/Vol] 0.23 10*3/uL Normal <0.87 [facility] Comment on above: Order Comment: Speci men Type: BLOOD SPECIMENOrdering Facility: [facility] Address: [address] [place] [address] Performed By: #### 5 7021-8 ####[facility] PINE RIDGEWNCLIA [id number] [address] LABORATORYCLIA [id number] [place] [address] [place] Monocytes/100 WBC (Bld) 12.0 % Normal [facility] Comment on above: Order Comment: Speci men Type: BLOOD SPECIMENOrdering Facility: [facility] Address: [address] [place] [address] Performed By: #### 5 7021-8 ####[facility]PITALA [id number] [address] LABORATORYCLIA [id number] [place] [address] [place] Neutrophils (Bld) [#/Vol] 1.14 10*3/uL Low 1.45-7.50 [facility] Comment on above: Order Comment: Speci men Type: BLOOD SPECIMENOrdering Facility: [facility] Address: [address] [place] [address] Performed By: #### 5 7021-8 ####[facility] PINE RIDGEWVALIA [id number] [address] LABORATORYCLIA [id number] [place] [address] [place] Neutrophils/100 WBC (Bld) 59.0 % Normal [facility] Comment on above: Order Comment: Speci men Type: BLOOD SPECIMENOrdering Facility: [facility] Address: [address] [place] [address] Performed By: #### 5 7021-8 ####[facility] MILLTOWNCLIA [id number] [address] LABORATORYCLIA [id number] [address] [place] Nucleated RBC (Bld) [#/Vol] 10*3/uL Normal <0.01 [facility] Comment on above: Order Comment: Speci men Type: BLOOD SPECIMENOrdering Facility: [facility] Address: [address] [place] [address] Performed By: #### 5 7021-8 ####[facility] PINE RIDGEWNCLIA [id number] [address] LABORATORYCLIA [id number] [place] [address] [place] Nucleated RBC/100 WBC (Bld) [Ratio] 0.0 /100 WBC Normal [facility] Comment on above: Order Comment: Speci men Type: BLOOD SPECIMENOrdering Facility: [facility] Address: [address] [place] [address] Performed By: #### 5 7021-8 ####[facility] PINE RIDGEWNCLIA [id number] [address] LABORATORYCLIA [id number] [place] [address] [place] Ovalocytes LM Ql (Bld) Few Normal [facility] Comment on above: Order Comment: Speci men Type: BLOOD SPECIMENOrdering Facility: [facility] Address: [address] [place] [id number] Performed By: #### 5 7021-8 ####[facility] MILLTOWNCLIA [id number] [address] LABORATORYCLIA [id number] [place] [address] [place] Platelet mean volume (Bld) [Entitic vol] 9.0 fL Normal 9.0-12.7 [facility] Comment on above: Order Comment: Speci men Type: BLOOD SPECIMENOrdering Facility: [facility] Address: [address] [place] [address] Performed By: #### 5 7021-8 ####[facility] P[facility] RIDGEWNCLIA [id number] [address] LABORATORYCLIA [id number] [place] [address] [place] Platelets (Bld) [#/Vol] 273 10*3/uL Normal 150-400 [facility] Comment on above: Order Comment: Speci men Type: BLOOD SPECIMENOrdering Facility: [facility] Address: [address] [place] [address] Result Comment: No c lot detected. Performed By: #### 5 7021-8 ####[facility] GLENBEIGHLIA [id number] [address] LABORATORYCLIA [id number] [place] [address] [place] Platelets Estimate (Bld) [#/Vol] Adequate Normal [facility] Comment on above: Order Comment: Speci men Type: BLOOD SPECIMENOrdering Facility: [facility] Address: [address] [place] [address] Performed By: #### 5 7021-8 ####[facility] GLENBEIGHLIA [id number] [address] LABORATORYCLIA [id number] [place] [address] [place] RBC (Bld) [#/Vol] 3.85 10*6/uL Low 3.90-5.[address] [facility] Comment on above: Order Comment: Speci men Type: BLOOD SPECIMENOrdering Facility: [facility] Address: [address] [place] [address] Performed By: #### 5 7021-8 ####[facility] HOSPITALBLAKEBrandee [id number] [address] LABORATORYCLIA [id number] [place] [address] [facility] RED CELL MORPH Reviewed: see result s of individual morphologies Normal [facility] Comment on above: Order Comment: Speci men Type: BLOOD SPECIMENOrdering Facility: [facility] Address: [address] [place] [address] Performed By: #### 5 7021-8 ####[facility] HOSPITALNCLAKEVIEW H[facility] [id number] [address] LABORATORYCLIA [id number] [address] OF [facility] WBC (Bld) [#/Vol] 1.93 10*3/uL Low 3.70-11.[address] [facility] Comment on above: Order Comment: Speci men Type: BLOOD SPECIMENOrdering Facility: [facility] Address: [address] [place] [address] Performed By: #### 5 7021-8 ####[facility]IMMEE [id number] [address] LABORATORYCLIA [id number] [address] [place] OF [facility] CBC W Auto Differential pane l (Bld)on 08-04-2024 Basophils (Bld) [#/Vol] 0.03 10*3/uL Normal <0.11 [facility] Comment on above: Order Comment: Speci men Type: BLOOD SPECIMENOrdering Facility: [facility] Address: [address] [place] [address] Performed By: #### 5 7021-8 ####[facility] MILLTOWNCLIA [id number] [place] [address] [place] Basophils/100 WBC (Bld) 1.3 % Normal [facility] Comment on above: Order Comment: Speci men Type: BLOOD SPECIMENOrdering Facility: [facility] Address: [address] [place] [address] Performed By: #### 5 7021-8 ####[facility] OMARWNCLIA [id number] [place] [address] [place] Differential cell count method Nom (Bld) Auto Normal [facility] Comment on above: Order Comment: Speci men Type: BLOOD SPECIMENOrdering Facility: [facility] Address: [address] [place] [address] Performed By: #### 5 7021-8 ####[facility] VUTEMITOPELIA [id number] [place] [address] [place] Eosinophils (Bld) [#/Vol] 0.17 10*3/uL Normal <0.46 [facility] Comment on above: Order Comment: Speci men Type: BLOOD SPECIMENOrdering Facility: [facility] Address: [address] [place] [address] Performed By: #### 5 7021-8 ####[facility] DORAWNCLIA [id number] [place] [address] [place] Eosinophils/100 WBC (Bld) 7.2 % Normal [facility] Comment on above: Order Comment: Speci men Type: BLOOD SPECIMENOrdering Facility: [facility] Address: [address] [place] [address] Performed By: #### 5 7021-8 ####[facility] DORAWNCLIA [id number] [place] [address] [place] Erythrocyte distribution width (RBC) [Ratio] 12.9 % Normal 11.5-15.0 [facility] Comment on above: Order Comment: Speci men Type: BLOOD SPECIMENOrdering Facility: [facility] Address: [address] [place] [address] Performed By: #### 5 7021-8 ####[facility] VUNCNATALI [id number] [place] [address] [place] Hematocrit (Bld) [Volume fraction] 35.2 % Low 36.0-46.0 [facility] Comment on above: Order Comment: Speci men Type: BLOOD SPECIMENOrdering Facility: [facility] Address: [address] [place] [address] Performed By: #### 5 7021-8 ####[facility] HOSPITALNCLIA [id number] [place] [address] [place] Hemoglobin (Bld) [Mass/Vol] 11.8 g/dL Normal 11.5-15.5 [facility] Comment on above: Order Comment: Speci men Type: BLOOD SPECIMENOrdering Facility: [facility] Address: [address] [place] [address] Performed By: #### 5 7021-8 ####[facility] HOSPITALNCLIA [id number] [place] [address] [place] Immature granulocytes (Bld) [#/Vol] 10*3/uL Normal <0.10 [facility] Comment on above: Order Comment: Speci men Type: BLOOD SPECIMENOrdering Facility: [facility] Address: [address] [place] [address] Performed By: #### 5 7021-8 ####[facility] HOSPITALNCLIA [id number] [place] [address] [place] Immature granulocytes/100 WBC (Bld) 0.4 % Normal [facility] Comment on above: Order Comment: Speci men Type: BLOOD SPECIMENOrdering Facility: [facility] Address: [address] [place] [address] Performed By: #### 5 7021-8 ####[facility] HOSPITALNCLIA [id number] [place] [address] [place] Lymphocytes (Bld) [#/Vol] 0.53 10*3/uL Low 1.00-4.00 [facility] Comment on above: Order Comment: Speci men Type: BLOOD SPECIMENOrdering Facility: [facility] Address: [address] [place] [address] Performed By: #### 5 7021-8 ####[facility] HOSPITALNCA [id number] [place] [address] [place] Lymphocytes/100 WBC (Bld) 22.6 % Normal [facility] Comment on above: Order Comment: Speci men Type: BLOOD SPECIMENOrdering Facility: [facility] Address: [address] [place] [address] Performed By: #### 5 7021-8 ####[facility] HOSPITALNCLI [id number] [place] [address] [place] MCH (RBC) [Entitic mass] 29.6 pg Normal 26.0-34.0 [facility] Comment on above: Order Comment: Speci men Type: BLOOD SPECIMENOrdering Facility: [facility] Address: [address] [place] [address] Performed By: #### 5 7021-8 ####[facility] GLENBEIGHLIA [id number] [place] [address] [place] MCHC (RBC) [Mass/Vol] 33.5 g/dL Normal 30.5-36.0 [facility] Comment on above: Order Comment: Speci men Type: BLOOD SPECIMENOrdering Facility: [facility] Address: [address] [place] [address] Performed By: #### 5 7021-8 ####[facility] HOSPITALNCLI [id number] [place] [address] [place] MCV (RBC) [Entitic vol] 88.4 fL Normal 80.0-100.0 [facility] Comment on above: Order Comment: Speci men Type: BLOOD SPECIMENOrdering Facility: [facility] Address: [address] [place] [address] Performed By: #### 5 7021-8 ####[facility] K[facility]IMMEE [id number] [place] [address] [place] Monocytes (Bld) [#/Vol] 0.20 10*3/uL Normal <0.87 [facility] Comment on above: Order Comment: Speci men Type: BLOOD SPECIMENOrdering Facility: [facility] Address: [address] [place] [address] Performed By: #### 5 7021-8 ####[facility] KISSIMMEE [id number] [place] [address] [place] Monocytes/100 WBC (Bld) 8.5 % Normal [facility] Comment on above: Order Comment: Speci men Type: BLOOD SPECIMENOrdering Facility: [facility] Address: [address] [place] [address] Performed By: #### 5 7021-8 ####[facility] KISSIMMEE [id number] [place] [address] [place] Neutrophils (Bld) [#/Vol] 1.41 10*3/uL Low 1.45-7.50 [facility] Comment on above: Order Comment: Speci men Type: BLOOD SPECIMENOrdering Facility: [facility] Address: [address] [place] [address] Performed By: #### 5 7021-8 ####[facility]OSPITALA [id number] [place] [address] [place] Neutrophils/100 WBC (Bld) 60.0 % Normal [facility] Comment on above: Order Comment: Speci men Type: BLOOD SPECIMENOrdering Facility: [facility] Address: [address] [place] [address] Performed By: #### 5 7021-8 ####[facility] OMARPkNCNATALI [id number] [place] [address] [place] Nucleated RBC (Bld) [#/Vol] 10*3/uL Normal <0.01 [facility] Comment on above: Order Comment: Speci men Type: BLOOD SPECIMENOrdering Facility: [facility] Address: [address] [place] [address] Performed By: #### 5 7021-8 ####[facility]PITALTEMITOPELAKEVIEW HOSPITAL [id number] [place] [address] [place] Nucleated RBC/100 WBC (Bld) [Ratio] 0.0 /100 WBC Normal [facility] Comment on above: Order Comment: Speci men Type: BLOOD SPECIMENOrdering Facility: [facility] Address: [address] [place] [address] Performed By: #### 5 7021-8 ####[facility] K[facility]IMMEE [id number] [place] [address] [place] Platelet mean volume (Bld) [Entitic vol] 8.3 fL Low 9.0-12.7 [facility] Comment on above: Order Comment: Speci men Type: BLOOD SPECIMENOrdering Facility: [facility] Address: [address] [place] [address] Performed By: #### 5 7021-8 ####[facility] HOSPITALNCLIA [id number] [place] [address] [place] Platelets (Bld) [#/Vol] 192 10*3/uL Normal 150-400 [facility] Comment on above: Order Comment: Speci men Type: BLOOD SPECIMENOrdering Facility: [facility] Address: [address] [place] [address] Performed By: #### 5 7021-8 ####[facility] HOSPITALNCLIA [id number] [place] [address] [place] RBC (Bld) [#/Vol] 3.98 10*6/uL Normal 3.90-5.[address] [facility] Comment on above: Order Comment: Speci men Type: BLOOD SPECIMENOrdering Facility: [facility] Address: [address] [place] [address] Performed By: #### 5 7021-8 ####[facility] HOSPITALNCLIA [id number] [place] [address] [place] WBC (Bld) [#/Vol] 2.35 10*3/uL Low 3.70-11.[address] [facility] Comment on above: Order Comment: Speci men Type: BLOOD SPECIMENOrdering Facility: [facility] Address: [address] [place] [address] Performed By: #### 5 7021-8 ####[facility] HOSPITALNCLIA [id number] [place] [address] [place] CNPNon 08-04-2024 CNPN Normal [facility] Cancer Ag15-3 SerPl-aCncon 0 08-04-2024 Cancer Ag 15-3 Qn 30.6 U/mL High <26.0 [facility] Comment on above: Order Comment: Speci men Type: BLOOD SPECIMENOrdering Facility: [facility] Address: [address] [place] [address] Result Comment: The CA 15-3 test methodology used is the Electrochemiluminescence Immunoassay by [employer]. Results obtained with different methods or kits cannot be used interchangeably. Performed By: #### 3 024-7, 2143-6, 3016-3, 6875-9 ####[facility] LABCLIA [id number] [place] [address] [place] Comprehensive metabolic 2000 panelon 08-04-2024 Albumin [Mass/Vol] 4.1 g/dL Normal 3.9-4.9 [facility] Comment on above: Order Comment: Speci men Type: BLOOD SPECIMENOrdering Facility: [facility] Address: [address] [place] [address] Performed By: #### 2 4323-8 ####[facility] MILLWNCLIA [id number] [place] [address] [place] ALP [Catalytic activity/Vol] 53 U/L Normal 34-123 [facility] Comment on above: Order Comment: Speci men Type: BLOOD SPECIMENOrdering Facility: [facility] Address: [address] [place] [address] Performed By: #### 2 4323-8 ####[facility]PITALA [id number] [place] [address] [place] ALT [Catalytic activity/Vol] 11 U/L Normal 7-38 [facility] Comment on above: Order Comment: Speci men Type: BLOOD SPECIMENOrdering Facility: [facility] Address: [address] [place] [address] Performed By: #### 2 4323-8 ####[facility]ITALA [id number] [place] [address] [place] Anion gap [Moles/Vol] 6 mmol/L Low 8-15 [facility] Comment on above: Order Comment: Speci men Type: BLOOD SPECIMENOrdering Facility: [facility] Address: [address] [place] [address] Performed By: #### 2 4323-8 ####[facility] GLENBEIGHLIA [id number] [place] [address] [place] AST [Catalytic activity/Vol] 17 U/L Normal 13-35 [facility] Comment on above: Order Comment: Speci men Type: BLOOD SPECIMENOrdering Facility: [facility] Address: [address] [place] [address] Performed By: #### 2 4323-8 ####[facility] MILLTOWNCLIA [id number] [place] [address] [place] Bilirubin [Mass/Vol] 0.3 mg/dL Normal 0.2-1.3 [facility] Comment on above: Order Comment: Speci men Type: BLOOD SPECIMENOrdering Facility: [facility] Address: [address] [place] [address] Performed By: #### 2 4323-8 ####[facility] MILLTOWNCLIA [id number] [place] [address] [place] Calcium [Mass/Vol] 9.1 mg/dL Normal 8.5-10.2 [facility] Comment on above: Order Comment: Speci men Type: BLOOD SPECIMENOrdering Facility: [facility] Address: [address] [place] [address] Performed By: #### 2 4323-8 ####[facility] PINE RIDGEWNCLIA [id number] [place] [address] [place] Chloride [Moles/Vol] 97 mmol/L Low 98-107 [facility] Comment on above: Order Comment: Speci men Type: BLOOD SPECIMENOrdering Facility: [facility] Address: [address] [place] [address] Performed By: #### 2 4323-8 ####[facility] MILLTOWNCLIA [id number] [place] [address] [place] CO2 [Moles/Vol] 31 mmol/L High 22-30 [facility] Comment on above: Order Comment: Speci men Type: BLOOD SPECIMENOrdering Facility: [facility] Address: [address] [place] [address] Performed By: #### 2 4323-8 ####[facility] MILLTOWNCLIA [id number] [place] [address] [place] Creatinine [Mass/Vol] 0.62 mg/dL Normal 0.58-0.96 [facility] Comment on above: Order Comment: [place] villarreal Type: BLOOD SPECIMENOrdering Facility: [facility] Address: [address] [place] [address] Performed By: #### 2 4323-8 ####[facility] [id number] [place] [address] [facility] Creatinine and Glomerular filtration rate.predicted panel (S/P/Bld) 99 mL/min/1.73m??? Normal >=60 [facility] Comment on above: Order Comment: [place] villarreal Type: BLOOD SPECIMENOrdering Facility: [facility] Address: [address] [place] [address] Result Comment: Alayna mated Glomerular Filtration Rate [...] GFR. Performed By: #### 2 4323-8 ####[facility] [id number] [place] [address] [place] Glucose [Mass/Vol] 109 mg/dL High 74-99 [facility] Comment on above: Order Comment: [place] villarreal Type: BLOOD SPECIMENOrdering Facility: [facility] Address: [address] [place] [address] Result Comment: The [place] Diabetes Association (ADA) provides guidance for cutoff [...] Standards of Medical Care in Diabetes 2016, [place] Diabetes Association. Diabetes Care. 2016.39(Suppl 1). Performed By: #### 2 4323-8 ####[facility] [id number] [place] [address] [place] Potassium [Moles/Vol] 4.0 mmol/L Normal 3.7-5.1 [facility] Comment on above: Order Comment: Speci men Type: BLOOD SPECIMENOrdering Facility: [facility] Address: [address] [place] [address] Performed By: #### 2 4323-8 ####[facility] [id number] [place] [address] [place] Protein [Mass/Vol] 6.4 g/dL Normal 6.3-8.0 [facility] Comment on above: Order Comment: Speci men Type: BLOOD SPECIMENOrdering Facility: [facility] Address: [address] [place] [address] Performed By: #### 2 4323-8 ####[facility] [id number] [place] [address] [place] Sodium [Moles/Vol] 134 mmol/L Low 136-144 [facility] Comment on above: Order Comment: Speci men Type: BLOOD SPECIMENOrdering Facility: [facility] Address: [address] [place], [place] [address] Performed By: #### 2 4323-8 ####[facility] [id number] [place] [address] [place] Urea nitrogen [Mass/Vol] 12 mg/dL Normal 7-21 [facility] Comment on above: Order Comment: Speci men Type: BLOOD SPECIMENOrdering Facility: [facility] Address: [address] [id number] Performed By: #### 2 4323-8 ####[facility] [id number] [place] [address] [place] Yulissa Chakraborty [birth year]19 25 Cortisol [Mass/Vol] 5.8 ug/dL Normal 4.8-19.[address] [facility] Comment on above: Order Comment: Speci men Type: BLOOD SPECIMENOrdering Facility: [facility] Address: [address] [place] [address] Result Comment: Prov ided reference range is from 6-10 AM sample collection time.Cortisol Reference Range: 6-10 AM = 4.8-19.5 ug/dL, 4-8 PM = 2.5-11.9 ug/dL Performed By: #### 3 024-7, 2143-6, 3016-3, 6875-9 ####[facility] LABCLIA [id number] [place] [id number] [place] PET/CT Tumor Base -Thigh Sub son 08-04-2024 PET/CT Tumor Base -Thigh Subs [facility] [address] [place] [address] PET/CT Tumor Base -Thigh Subs MR#: [id number] Acct: [id number] Name: Everette HERBERT Rep #: [id number] : 1960 F 64 From: Lee Murillo PCP: Dr. Hellen Lafleur MD Status: REG CL Study: PET/CT Tumor Base -Thigh Subs Date of Exam: Exam# [id number] Ordering Dr: Hellen Zhu DO PROCEDURE: PET/CT [...] PET will be reported separately. Reading Location: [facility] CC: Dr. Hellen Zhu DO; Dr. Hellen Lafleur MD Architectural Inspector: Signed Normal [facility] Positron emission tomography scan reportOrdered By: Lee Anaya on 08-04-2024 PT Unspecified body region [facility] [address] [place], [place] [id number] PET/CT Tumor Base -Thigh Subs MR#: [id number] Acct: [id number] Name: Everette HERBERT Rep #: [id number] : 1960 F 64 From: Alexsander Anaya MD PCP: Dr. Hellen Lafleur MD Status: REG C ELICIA Study:PET/CT Tumor Base -Thigh Subs Date of E xam: 08/04/24 Exam# [id number] Ordering Dr: Kezia Zhu ul DO PROCEDURE: PET/CT TUMOR BASE -THIGH SUBS [...] PET will be reported separately. Reading Location: [place] [address] CC: Dr. Hellen Zhu DO; Dr. Hellen Lafleur MD ~ Architectural Inspector: Signed [facility] T4 Free SerPl-mCncon 025 Free T4 [Mass/Vol] 1.1 ng/dL Normal 0.9-1.7 [facility] Comment on above: Order Comment: Speci men Type: BLOOD SPECIMENOrdering Facility: [facility] Address: [address] [place] [address] Performed By: #### 3 024-7, 2143-6, 3016-3, 6875-9 ####[facility] LABCLIA [id number] [place] [address] [place] TSH SerPl-aCncon 08-04-2024 TSH Qn 0.769 m[IU]/L Normal 0.270-4.20 0 [facility] Comment on above: Order Comment: Speci men Type: BLOOD SPECIMENOrdering Facility: [facility] Address: [address] [place] [address] Performed By: #### 3 024-7, 2143-6, 3016-3, 6875-9 ####[facility] LABCLIA [id number] [place] [address] [place] MR Brain WO and W contrast I Von 07-30-2024 IMPRESSION: No evidence of intracranial metastatic disease. Architectural Inspector: AMALIA Transcribe Date/Time: Jul 30 2024 2:33P Dictated by : FERNIE QUIGLEY MD This examination was interpreted and the report reviewed and electronically signed by: FERNIE QUIGLEY MD on Jul 30 2024 2:38PM [facility] DIVISION OF RADIOLOGY * * *Final Report* * * DATE OF EXAM: Jul 30 2024 2:18PM [facility] 0295 - MRI BRAIN WO/W IVCON / [...] tissues are unremarkable. DIVISION OF RADIOLOGY Provider, [facility] - 07/30/2024 * * *Final Report* * * DATE OF EXAM: Jul 30 2024 2:18PM [facility] 0295 - MRI BRAIN WO/W IVCON / [...] IMPRESSION: No evidence of intracranial metastatic disease. Architectural Inspector: [facility] Transcribe Date/Time: Jul 30 2024 2:33P Dictated by : FERNIE QUIGLEY MD This examination was interpreted and the report reviewed and electronically signed by: FERNIE QUIGELY MD on Jul 30 2024 2:38PM EST [facility] Radiology Study observation (narrative) [facility] MR Brain WO and W contrast I VOrdered By: Ccf Provider on 07-30-2024 [facility] MRI BRAIN WO/W IVCONon 07-30 MRI BRAIN WO/W IVCON [facility] CNPNon 07-29-2024 CNPN Normal [facility] CBC W Auto Differential pane l (Bld)on 07-28-2024 Basophils (Bld) [#/Vol] 0.04 10*3/uL [facility] Basophils/100 WBC (Bld) 1.1 % [facility] Differential cell count method Nom (Bld) Auto [facility] Eosinophils (Bld) [#/Vol] 0.22 10*3/uL [facility] Eosinophils/100 WBC (Bld) 6.1 % [facility] Erythrocyte distribution width (RBC) [Ratio] 13.1 % 11.5 - 15.0 % [facility] Hematocrit (Bld) [Volume fraction] 37.5 % 36.0 - 46.0 % [facility] Hemoglobin (Bld) [Mass/Vol] 12.6 g/dL 11.5 - 15.5 g/dL [facility] Immature granulocytes (Bld) [#/Vol] [facility] Immature granulocytes/100 WBC (Bld) 0.3 % [facility] Interpretation and review of laboratory results Abnormal [facility] Lymphocytes (Bld) [#/Vol] 0.61 10*3/uL Low [facility] Lymphocytes/100 WBC (Bld) 16.9 % [facility] MCH (RBC) [Entitic mass] 29.5 pg 26.0 - 34.0 pg [facility] MCHC (RBC) [Mass/Vol] 33.6 g/dL 30.5 - 36.0 g/dL [facility] MCV (RBC) [Entitic vol] 87.8 fL 80.0 - 100.0 fL [facility] Monocytes (Bld) [#/Vol] 0.48 10*3/uL [facility] Monocytes/100 WBC (Bld) 13.3 % [facility] Neutrophils (Bld) [#/Vol] 2.24 10*3/uL [facility] Neutrophils/100 WBC (Bld) 62.3 % [facility] Nucleated RBC (Bld) [#/Vol] [facility] Nucleated RBC/100 WBC (Bld) [Ratio] 0 % /100 WBC [facility] Platelet mean volume (Bld) [Entitic vol] 8.5 fL Low 9.0 - 12.7 fL [facility] Platelets (Bld) [#/Vol] 277 10*3/uL [facility] RBC (Bld) [#/Vol] 4.27 10*6/uL 3.90 - 5.20 m/uL [facility] WBC (Bld) [#/Vol] 3.6 10*3/uL Low [facility] Basophils (Bld) [#/Vol] 0.04 10*3/uL Normal <0.11 [facility] Comment on above: Order Comment: Speci men Type: BLOOD SPECIMENOrdering Facility: [facility] Address: [address] [place], [place] [address] Performed By: #### 5 7021-8 ####[facility] GALINA JOHNNANO [id number] [address] [place] Basophils/100 WBC (Bld) 1.1 % Normal [facility] Comment on above: Order Comment: Speci men Type: BLOOD SPECIMENOrdering Facility: [facility] Address: [address] [place] [address] Performed By: #### 5 7021-8 ####[facility] DORALALILIA [id number] [place] [address] [place] Differential cell count method Nom (Bld) Auto Normal [facility] Comment on above: Order Comment: Speci men Type: BLOOD SPECIMENOrdering Facility: [facility] Address: [address] [place] [address] Performed By: #### 5 7021-8 ####[facility] OMARRICHELLEA [id number] [place] [address] [place] Eosinophils (Bld) [#/Vol] 0.22 10*3/uL Normal <0.46 [facility] Comment on above: Order Comment: Speci men Type: BLOOD SPECIMENOrdering Facility: [facility] Address: [address] [place] [address] Performed By: #### 5 7021-8 ####[facility] OMARLALILIA [id number] [place] [address] [place] Eosinophils/100 WBC (Bld) 6.1 % Normal [facility] Comment on above: Order Comment: Speci men Type: BLOOD SPECIMENOrdering Facility: [facility] Address: [address] [place] [address] Performed By: #### 5 7021-8 ####[facility] OMARPkTEMITOPELIA [id number] [place] [address] [place] Erythrocyte distribution width (RBC) [Ratio] 13.1 % Normal 11.5-15.0 [facility] Comment on above: Order Comment: Speci men Type: BLOOD SPECIMENOrdering Facility: [facility] Address: [address] [place] [address] Performed By: #### 5 7021-8 ####[facility] SYSTEMLIA [id number] [place] [address] [place] Hematocrit (Bld) [Volume fraction] 37.5 % Normal 36.0-46.0 [facility] Comment on above: Order Comment: Speci men Type: BLOOD SPECIMENOrdering Facility: [facility] Address: [address] [place] [address] Performed By: #### 5 7021-8 ####[facility] [id number] [place] [address] [place] Hemoglobin (Bld) [Mass/Vol] 12.6 g/dL Normal 11.5-15.5 [facility] Comment on above: Order Comment: Speci men Type: BLOOD SPECIMENOrdering Facility: [facility] Address: [address] [place] [address] Performed By: #### 5 7021-8 ####[facility] [id number] [place] [address] [place] Immature granulocytes (Bld) [#/Vol] 10*3/uL Normal <0.10 [facility] Comment on above: Order Comment: Speci men Type: BLOOD SPECIMENOrdering Facility: [facility] Address: [address] [place] [address] Performed By: #### 5 7021-8 ####[facility] [id number] [place] [address] [place] Immature granulocytes/100 WBC (Bld) 0.3 % Normal [facility] Comment on above: Order Comment: Speci men Type: BLOOD SPECIMENOrdering Facility: [facility] Address: [address] [place] [address] Performed By: #### 5 7021-8 ####[facility] [id number] [place] [address] [place] Lymphocytes (Bld) [#/Vol] 0.61 10*3/uL Low 1.00-4.00 [facility] Comment on above: Order Comment: Speci men Type: BLOOD SPECIMENOrdering Facility: [facility] Address: [address] [place] [address] Performed By: #### 5 7021-8 ####[facility]ITAL[facility]CLI [id number] [place] [address] [place] Lymphocytes/100 WBC (Bld) 16.9 % Normal [facility] Comment on above: Order Comment: Speci men Type: BLOOD SPECIMENOrdering Facility: [facility] Address: [address] [place] [address] Performed By: #### 5 7021-8 ####[facility]ITALNCLI [id number] [place] [address] [place] MCH (RBC) [Entitic mass] 29.5 pg Normal 26.0-34.0 [facility] Comment on above: Order Comment: Speci men Type: BLOOD SPECIMENOrdering Facility: [facility] Address: [address] [place] [address] Performed By: #### 5 7021-8 ####[facility]ITALNCLI [id number] [place] [address] [place] MCHC (RBC) [Mass/Vol] 33.6 g/dL Normal 30.5-36.0 [facility] Comment on above: Order Comment: Speci men Type: BLOOD SPECIMENOrdering Facility: [facility] Address: [address] [place] [address] Performed By: #### 5 7021-8 ####[facility]ITAL[facility]CLI [id number] [place] [address] [place] MCV (RBC) [Entitic vol] 87.8 fL Normal 80.0-100.0 [facility] Comment on above: Order Comment: Speci men Type: BLOOD SPECIMENOrdering Facility: [facility] Address: [address] [place] [address] Performed By: #### 5 7021-8 ####[facility] MILLTOWNCLIA [id number] [place] [address] [place] Monocytes (Bld) [#/Vol] 0.48 10*3/uL Normal <0.87 [facility] Comment on above: Order Comment: Speci men Type: BLOOD SPECIMENOrdering Facility: [facility] Address: [address] [place] [address] Performed By: #### 5 7021-8 ####[facility] MILLWNCLIA [id number] [place] [address] [place] Monocytes/100 WBC (Bld) 13.3 % Normal [facility] Comment on above: Order Comment: Speci men Type: BLOOD SPECIMENOrdering Facility: [facility] Address: [address] [place] [address] Performed By: #### 5 7021-8 ####[facility] OMARWNCLIA [id number] [place] [address] [place] Neutrophils (Bld) [#/Vol] 2.24 10*3/uL Normal 1.45-7.50 [facility] Comment on above: Order Comment: Speci men Type: BLOOD SPECIMENOrdering Facility: [facility] Address: [address] [place] [address] Performed By: #### 5 7021-8 ####[facility] MILLTOWNCLIA [id number] [place] [address] [place] Neutrophils/100 WBC (Bld) 62.3 % Normal [facility] Comment on above: Order Comment: Speci men Type: BLOOD SPECIMENOrdering Facility: [facility] Address: [address] [place] [address] Performed By: #### 5 7021-8 ####[facility] [id number] [place] [address] [place] Nucleated RBC (Bld) [#/Vol] 10*3/uL Normal <0.01 [facility] Comment on above: Order Comment: Speci men Type: BLOOD SPECIMENOrdering Facility: [facility] Address: [address] [place] [address] Performed By: #### 5 7021-8 ####[facility] [id number] [place] [address] [place] Nucleated RBC/100 WBC (Bld) [Ratio] 0.0 /100 WBC Normal [facility] Comment on above: Order Comment: Speci men Type: BLOOD SPECIMENOrdering Facility: [facility] Address: [address] [place] [address] Performed By: #### 5 7021-8 ####[facility] [id number] [place] [address] [place] Platelet mean volume (Bld) [Entitic vol] 8.5 fL Low 9.0-12.7 [facility] Comment on above: Order Comment: Speci men Type: BLOOD SPECIMENOrdering Facility: [facility] Address: [address] [place] [address] Performed By: #### 5 7021-8 ####[facility] [id number] [place] [address] [place] Platelets (Bld) [#/Vol] 277 10*3/uL Normal 150-400 [facility] Comment on above: Order Comment: Speci men Type: BLOOD SPECIMENOrdering Facility: [facility] Address: [address] [place] [address] Performed By: #### 5 7021-8 ####[facility] GLENBEIGHLIA [id number] [place] [address] [place] RBC (Bld) [#/Vol] 4.27 10*6/uL Normal 3.90-5.[address] [facility] Comment on above: Order Comment: Speci men Type: BLOOD SPECIMENOrdering Facility: [facility] Address: [address] [place] [address] Performed By: #### 5 7021-8 ####[facility]ITAL[facility]CLI [id number] [place] [address] [place] WBC (Bld) [#/Vol] 3.60 10*3/uL Low 3.70-11.[address] [facility] Comment on above: Order Comment: Speci men Type: BLOOD SPECIMENOrdering Facility: [facility] Address: [address] [place] [address] Performed By: #### 5 7021-8 ####[facility]ITAL[facility]CLIA [id number] [place] [address] [place] CNPNon 07-28-2024 CNPN Normal [facility] Comprehensive metabolic 2000 panelOrdered By: Kat Araujo on 07-28-2024 Albumin [Mass/Vol] 4.3 g/dL 3.9 - 4.9 g/dL [facility] ALP [Catalytic activity/Vol] 69 U/L 34 - 123 U/L [facility] ALT [Catalytic activity/Vol] 10 U/L 7 - 38 U/L [facility] Anion gap [Moles/Vol] 8 mmol/L 8 - 15 mmol/L [facility] AST [Catalytic activity/Vol] 18 U/L 13 - 35 U/L [facility] Bilirubin [Mass/Vol] 0.3 mg/dL 0.2 - 1 .3 mg/dL [facility] Calcium [Mass/Vol] 9.7 mg/dL 8.5 - 10. 2 mg/dL [facility] Chloride [Moles/Vol] 97 mmol/L Low 98 - 10 7 mmol/L [facility] CO2 [Moles/Vol] 30 mmol/L 22 - 30 mmol/L [facility] Creatinine [Mass/Vol] 0.67 mg/dL 0.58 - 0.96 mg/dL [facility] GFR/1.73 sq M.predicted among non-blacks MDRD (S/P/Bld) [Vol rate/Area] 97 mL/min/{1.73_m2} - PINF [facility] Comment on above: Estimated Glomerular Filtration [...] mg/dL 74 - 99 mg/dL [facility] Comment on above: The [place] Diabete s Association (ADA) provides guidance for [...] Standards of Medical Care in Diabetes 2016, [place] Diabetes Association. Diabetes Care. 2016.39(Suppl 1). Interpretation and review of laboratory results Abnormal [facility] Potassium [Moles/Vol] 4.1 mmol/L 3.7 - 5.1 mmol/L [facility] Protein [Mass/Vol] 6.8 g/dL 6.3 - 8.0 g/dL [facility] Sodium [Moles/Vol] 135 mmol/L Low 136 - 144 mmol/L [facility] Urea nitrogen [Mass/Vol] 17 mg/dL 7 - 21 mg/dL [facility] Comprehensive metabolic 2000 panelon 07-28-2024 Albumin [Mass/Vol] 4.3 g/dL Normal 3.9-4.9 [facility] Comment on above: Order Comment: Speci men Type: BLOOD SPECIMENOrdering Facility: [facility] Address: Formerly named [facility] [place] [address] Performed By: #### 2 4323-8 ####[facility] MILLTOWNCLIA [id number] [place] [address] [place] ALP [Catalytic activity/Vol] 69 U/L Normal 34-123 [facility] Comment on above: Order Comment: Speci men Type: BLOOD SPECIMENOrdering Facility: [facility] Address: [address] [place] [address] Performed By: #### 2 4323-8 ####[facility] MILLWNCLIA [id number] [place] [address] [place] ALT [Catalytic activity/Vol] 10 U/L Normal 7-38 [facility] Comment on above: Order Comment: Speci men Type: BLOOD SPECIMENOrdering Facility: [facility] Address: [address] [place] [address] Performed By: #### 2 4323-8 ####[facility]CLIA [id number] [place] [address] [place] Anion gap [Moles/Vol] 8 mmol/L Normal 8-15 [facility] Comment on above: Order Comment: Speci men Type: BLOOD SPECIMENOrdering Facility: [facility] Address: [address] [place] [address] Performed By: #### 2 4323-8 ####[facility] GLENBEIGHLIA [id number] [place] [address] [place] AST [Catalytic activity/Vol] 18 U/L Normal 13-35 [facility] Comment on above: Order Comment: Speci men Type: BLOOD SPECIMENOrdering Facility: [facility] Address: [address] [place] [address] Performed By: #### 2 4323-8 ####[facility]ITAL[facility]CLIA [id number] [place] [address] [place] Bilirubin [Mass/Vol] 0.3 mg/dL Normal 0.2-1.3 [facility] Comment on above: Order Comment: Speci men Type: BLOOD SPECIMENOrdering Facility: [facility] Address: [address] [place] [address] Performed By: #### 2 4323-8 ####[facility] VUNCNATALI [id number] [place] [address] [place] Calcium [Mass/Vol] 9.7 mg/dL Normal 8.5-10.2 [facility] Comment on above: Order Comment: Speci men Type: BLOOD SPECIMENOrdering Facility: [facility] Address: [address] [place] [address] Performed By: #### 2 4323-8 ####[facility] HOSPITALNCELICIAA [id number] [place] [address] [place] Chloride [Moles/Vol] 97 mmol/L Low 98-107 [facility] Comment on above: Order Comment: Speci men Type: BLOOD SPECIMENOrdering Facility: [facility] Address: [address] [place] [address] Performed By: #### 2 4323-8 ####[facility]ITALNCLIA [id number] [place] [address] [place] CO2 [Moles/Vol] 30 mmol/L Normal 22-30 [facility] Comment on above: Order Comment: Speci men Type: BLOOD SPECIMENOrdering Facility: [facility] Address: [address] [place] [address] Performed By: #### 2 4323-8 ####[facility]ITAL[facility]CLIA [id number] [place] [address] [place] Creatinine [Mass/Vol] 0.67 mg/dL Normal 0.58-0.96 [facility] Comment on above: Order Comment: Speci men Type: BLOOD SPECIMENOrdering Facility: [facility] Address: [address] [place] [address] Performed By: #### 2 4323-8 ####[facility] [id number] [place] [address] [place] Creatinine and Glomerular filtration rate.predicted panel (S/P/Bld) 97 mL/min/1.73m??? Normal >=60 [facility] Comment on above: Order Comment: [place] villarreal Type: BLOOD SPECIMENOrdering Facility: [facility] [facility] Address: [address] [place] [address] Result Comment: Alayna mated Glomerular Filtration Rate [...] GFR. Performed By: #### 2 4323-8 ####[facility] [id number] [place] [address] [place] Glucose [Mass/Vol] 88 mg/dL Normal 74-99 [facility] Comment on above: Order Comment: [place] villarreal Type: BLOOD SPECIMENOrdering Facility: [facility] Address: [address] [place] [address] Result Comment: The [place] Diabetes Association (ADA) provides guidance for cutoff [...] Standards of Medical Care in Diabetes 2016, [place] Diabetes Association. Diabetes Care. 2016.39(Suppl 1). Performed By: #### 2 4323-8 ####[facility] [id number] [place] [address] [place] Potassium [Moles/Vol] 4.1 mmol/L Normal 3.7-5.1 [facility] Comment on above: Order Comment: Speci men Type: BLOOD SPECIMENOrdering Facility: [facility] Address: [address] [place] [address] Performed By: #### 2 4323-8 ####[facility] [id number] [place] [address] [place] Protein [Mass/Vol] 6.8 g/dL Normal 6.3-8.0 [facility] Comment on above: Order Comment: Speci men Type: BLOOD SPECIMENOrdering Facility: [facility] Address: [address] [place] [address] Performed By: #### 2 4323-8 ####[facility] [id number] [place] [address] [place] Sodium [Moles/Vol] 135 mmol/L Low 136-144 [facility] Comment on above: Order Comment: Speci men Type: BLOOD SPECIMENOrdering Facility: [facility] Address: [address] [place] [address] Performed By: #### 2 4323-8 ####[facility] [id number] [place] [address] [place] Urea nitrogen [Mass/Vol] 17 mg/dL Normal 7-21 [facility] Comment on above: Order Comment: Speci men Type: BLOOD SPECIMENOrdering Facility: [facility] Address: [address] [place] [address] Performed By: #### 2 4323-8 ####[facility] [id number] [place] [address] [place] HBV core Ab Ser Qlon 025 HBV core Ab Ql (S) Negative Normal Negative [facility] Comment on above: Order Comment: Speci men Type: BLOOD SPECIMENOrdering Facility: [facility] Address: [address] [place] [address] Result Comment: No e vidence of current or past infection with Hepatitis B virus. Should recent infection be suspected, repeat testing may be considered 3-4 weeks after this draw. Performed By: #### 2 2322-2, 5195-3, 02348-2 ####[facility] LABCLIA [id number] [place] [address] [place] HBV surface Ab Ql (S)on HBV surface Ab Qn (S) <8.00 Normal [facility] Comment on above: Order Comment: Speci men Type: BLOOD SPECIMENOrdering Facility: [facility] Address: [address] [place] [address] Result Comment: <8 m IU/mL: No serological evidence of immunity to Hepatitis B Virus.>/= 8 to <12 mIU/mL: No serological evidence of immunity to Hepatitis B Virus.>/= 12 mIU/mL: Consistent with serological evidence of immunity to Hepatitis B Virus. Performed By: #### 2 2322-2, 5195-3, 76659-2 ####[facility] LAB[facility]IA [id number] [address] [place] HBV surface Ab Ser Qlon HBV surface Ab Ql (S) Negative Normal [facility] Comment on above: Order Comment: Speci men Type: BLOOD SPECIMENOrdering Facility: [facility] Address: [address] [place] [address] Result Comment: No s erological evidence of immunity to Hepatitis B Virus. Performed By: #### 2 2322-2, 5195-3, 85472-1 ####[facility] LABCLIA [id number] [place] [address] [place] HBV surface Ag Ser Qlon HBV surface Ag Ql (S) Negative Normal Negative [facility] Comment on above: Order Comment: Speci men Type: BLOOD SPECIMENOrdering Facility: [facility] Address: [address] [place] [address] Performed By: #### 2 2322-2, 5195-3, 60491-1 ####[facility] LABCLIA [id number] [place] [address] [place] HCV Ab Ser Qlon 07-28-2024 HCV Ab Ql (S) Negative Normal Negative [facility] Comment on above: Order Comment: Speci men Type: BLOOD SPECIMENOrdering Facility: [facility] Address: [address] [place] [address] Result Comment: The result suggests no evidence of infection with Hepatitis C virus. Should recent infection be suspected, repeat testing may be considered 4-6 weeks after this draw. Performed By: #### 1 6128-1 ####[facility] LABCLIA [id number] [place] [address] [place] CNPNon 07-27-2024 CNPN Normal [facility] REFERRAL FOR ADDITIONAL BIOM ARKER AND MOLECULAR TESTINGon 07-25-2024 REFERRAL FOR ADDITIONAL BIOMARKER AND MOLECULAR TESTING Normal [facility] Comment on above: Order Comment: Speci men Type: TISSUE SPECIMENOrdering Facility: [facility] Address: [address] [place] [address] Result Comment: Requ est has been received for evaluation and the results will be issued separately. Performed By: #### A PMOL ####[facility] [id number] [place] [address] [place] CNPNon 07-24-2024 CNPN Normal [facility] CNOVon 07-23-2024 CNOV Normal [facility] BREAST MARKERSon 07-17-2024 AP BIOMARKER DISCLAIMER Normal [facility] Comment on above: Order Comment: Speci men Type: TISSUE SPECIMENOrdering Facility: [facility] Address: [address] [place] [address] Result Comment: Nadya sherman Developed Test (LDT) Disclaimer:Performance characteristics of immunohistochemical, immunofluorescent and chromogenic in-situ hybridization tests have been determined by the performing laboratory within [facility]???s Mirna Thomas Pathology and Laboratory Medicine Department ([facility], [facility], [facility], [facility], [facility], [facility], or [facility]) in a manner consistent with CLIA requirements. One or more of these tests have not been cleared or approved by the FDA. [facility] is regulated under CLIA as qualified to perform high-complexity testing. These tests are used for clinical purposes. They should not be regarded as investigational or for research. Positive and negative controls stain appropriately. Performed By: #### L [id number] ####[facility] LABCLIA [id number] [address] [address] [place] Performed By: #### L [id number] ####[facility] [id number] [place] [id number] [place] AP BLOCK ID A1 Normal [facility] Comment on above: Order Comment: Speci men Type: TISSUE SPECIMENOrdering Facility: [facility] Address: [address] [place] [address] Performed By: #### L [id number] ####[facility] LABCLIA [id number] [address] [address] [place] Performed By: #### L [id number] ####[facility]IA [id number] [address] [address] [place] ASCO/CAP GUIDELINES FOR FIXATION MET Indeterminate Normal [facility] Comment on above: Order Comment: Speci men Type: TISSUE SPECIMENOrdering Facility: [facility] Address: [address] [place] [address] Result Comment: Para meters not provided Performed By: #### L [id number] ####[facility]CLIA [id number] [address] [address] [place] BIOMARKER INTERPRETATION COMMENT AND REFERENCE RANGE Normal [facility] Comment on above: Order Comment: Speci men Type: TISSUE SPECIMENOrdering Facility: [facility] Address: [address] [place] [address] Result Comment: Refe rence Range for Hormone Receptors:Staining for IL of greater than or equal to 1% of the tumor cells is considered positive.Staining for ER of 1-10% of the tumor cells is considered low positive.Staining for ER of greater than 10% of the tumor cells is considered positive.Staining for ER or IL of less than 1% is considered negative.Reference [...] to ER-negative cancers. Performed By: #### L [id number] ####[facility] LABIA [id number] [place] [address] [place] Result Comment: Inte rpretation standard:CPS: The composite [...] to the Product label for additional information. ([email or web address]/) Performed By: #### L [id number] ####[facility] LABCLIA [id number] [address] BIOMARKER METHOD Normal [facility] Comment on above: Order Comment: Speci men Type: TISSUE SPECIMENOrdering Facility: [facility] Address: [address] [place] [address] Result Comment: Estr ogen Receptor:Food and Drug Administration (FDA) cleared: [employer] [facility] Antibody: [id number] Receptor:FDA cleared: [employer], [facility] Antibody: [id number] (ERBB2) by IHC:FDA cleared: [employer], [place] Antibody:4B5The hormone receptor tests were performed and reported in accordance with the guidelines approved by the [place] Society of Clinical Oncologists and the College of [place] Pathologists. Shellie MAX, et al. Estrogen and Progesterone Receptor Testing in Breast Cancer: [place] Society of Clinical Oncologists and the College of [place] Pathologists Guideline Update. Arch Pathol Lab Med. 2019;144(5):545-563. PMID: [id number].The hormone receptor assays have been internally validated on decalcified tissues (for [facility] only).Estrogen and progesterone receptor results are valid if tissue was processed according to ASCO/CAP guidelines.Antibody and Detection System: [employer]'s Pathway anti-HER2 rabbit monoclonal antibody (clone 4B5), [employer] Confirm anti-estrogen receptor rabbit monoclonal antibody (clone SP1) and [employer] anti-progesterone receptor rabbit monoclonal antibody (clone IE2) detected with the [employer] Univeral DAB Detection Kit (indirect biotin-free detection), [employer], [place], [place].Control Slides: Cell line controls with high, equivocal, low, and negative HER2 protein expression, along with known positive control tissue and the patient's tissue, are evaluated for HER2 expression.The HER2 immunohistochemistry assay was developed, validated, scored, and reported in accordance with the guidelines approved by the [place] Society of Clinical Oncologists and the College of [place] Pathologists. Aleisha SALEH et al. Arch Pathol Lab Med. 2018;1379(9)The HER2 assay has not been validated on decalcified tissues. Given the possibility of false negative results on decalcified specimens, results should be interpreted with caution. Performed By: #### L [id number] ####[facility] LABCLIA [id number] [address] [place] [address] [place] BREAST TUMOR GRADE Not Graded Normal [facility] Comment on above: Order Comment: Speci men Type: TISSUE SPECIMENOrdering Facility: [facility] Address: [address] [place] [address] Performed By: #### L [id number] ####[facility] LABCLIA [id number] [address] [place] [address] [place] [facility] CASE NUMBER INVASIVE [id number] Normal [facility] Comment on above: Order Comment: Speci men Type: TISSUE SPECIMENOrdering Facility: [facility] Address: [address] [place] [address] Performed By: #### L [id number] ####[facility] LABCLIA [id number] [facility] [address] [place] [address] [place] COLD ISCHEMIA TIME Not Provided Normal [facility] Comment on above: Order Comment: Speci men Type: TISSUE SPECIMENOrdering Facility: [facility] Address: [address] [place], [place] [address] Performed By: #### L [id number] ####[facility] LABCLIA [id number] [facility] [address] [place] [address] [place] Performed By: #### L [id number] ####[facility] LABCLIA [id number] [facility] [id number], [place] [address] [place] ESTROGEN RECEPTOR (% TUMOR STAINING) <1 Normal [facility] Comment on above: Order Comment: Speci men Type: TISSUE SPECIMENOrdering Facility: [facility] Address: [address] [place] [address] Performed By: #### L [id number] ####[facility] LABCLIA [id number] [facility] [id number], [place] [address] [place] ESTROGEN RECEPTOR (STAINING INTENSITY) Not Applicable Normal [facility] Comment on above: Order Comment: Speci men Type: TISSUE SPECIMENOrdering Facility: [facility] Address: [address] [place], [place] [address] Performed By: #### L [id number] ####[facility]CLIA [id number] [facility] [place] [id number], [place] [address] [place] ESTROGEN RECEPTOR EXTERNAL CONTROL Present and Stained as Expected Normal [facility] Comment on above: Order Comment: Speci men Type: TISSUE SPECIMENOrdering Facility: [facility] Address: [address] [place], [place] [address] Performed By: #### L [id number] ####[facility]CL[facility] [id number] [facility] [address] [place] [address] [place] ESTROGEN RECEPTOR INTERNAL CONTROL Absent Normal [facility] Comment on above: Order Comment: Speci men Type: TISSUE SPECIMENOrdering Facility: [facility] Address: [address] [place], [place] [address] Performed By: #### L [id number] ####[facility]CLIA [id number] [facility] [id number], [place] [address] [place] ESTROGEN RECEPTOR STATUS (INVASIVE) Negative Normal [facility] Comment on above: Order Comment: Speci men Type: TISSUE SPECIMENOrdering Facility: [facility] Address: [address] [place] [address] Performed By: #### L [id number] ####[facility] LABCLIA [id number] [facility] [id number], [place] [address] [place] FINAL PERFORMING LAB Normal [facility] Comment on above: Order Comment: Speci men Type: TISSUE SPECIMENOrdering Facility: [facility] Address: [address] [place], [place] [address] Result Comment: Diag nostic interpretation performed at: [facility], [address] [place] [address] CLIA# [id number] Director: Rob Mello MDElectronically signed out by: Pedro Luis Palma MD Performed By: #### L [id number] ####[facility] LABCLIA [id number] [place] [id number] [place] Result Comment: Diag nostic interpretation performed at: [facility], [address] [place] [address] [place] [address] CLIA# [id number] Director: Rob Mello MDElectronically signed out by: Marlene Will MD Performed By: #### L [id number] ####[facility] LABCLIA [id number] [address] [address] [place] FIXATIVE Formalin, 10% Neutra l Buffered Normal [facility] Comment on above: Order Comment: Speci men Type: TISSUE SPECIMENOrdering Facility: [facility] Address: [address] [place], [place] [address] Performed By: #### L [id number] ####[facility] LABCLIA [id number] [address] [place] [address] [place] Performed By: #### L [id number] ####[facility] LABCLIA [id number] [address] [address] [place] HER2 SCORE 0 Normal [facility] Comment on above: Order Comment: Speci men Type: TISSUE SPECIMENOrdering Facility: [facility] Address: [address] [place], [place] [address] Result Comment: HER2 Ultralow assessment for HER2 negative (0) tumors by ASCO/CAP GuidelinesSurgical/Block Number: [id number] Site:\X09\ Left breastPercentage of tumor cells with membranous staininResult:\X09\HER2 0 UltralowReference range:Ultralow HER2 expression is defined as IHC 0 by ASCO/CAP guidelines but with any membranous staining that is greater than 0 and less than or equal to 10%. Null HER2 expression is defined as IHC 0 by ASCO/CAP guidelines but with no membranous staining at 40X magnification.Rufino A, Sam X, Luis Armando R, Eunice K, John OLIVA, Kina JA, Tatiana H, Deric MarinY, Alvaro Q, Joan C, Dylan L, Lindsay J, Im SA, L???katie C, Pedro Luis W, Clarita N, Dereck Marin, Adrian G, Rik G; [id number] Trial Investigators. Trastuzumab Deruxtecan after Endocrine Therapy in Metastatic Breast Cancer. N Engl J Med. 2023Dec 07. doi: 10.1056/[id number]. Epub ahead of print. PMID: [id number].Jonathan G, Ingris J, Chidi B, Orlando A, Walker B, Tammi H, Nellie E, Dada N, Alan C. Development and Validation of a HER2-Low Focused Immunohistochemical Scoring System With High-Interobserver Concordance: The [place] HER2-Low Breast Cancer Concordance Study. Mod Pathol. 2023;37(8):766616. doi: 10.1016/j.modpat.2023.203736. Epub 2023Aug 30. PMID: [id number]. Performed By: #### L [id number] ####[facility] LABCLIA [id number] [place] [address] [place] HER2 STATUS (INVASIVE) Negative Normal [facility] Comment on above: Order Comment: Speci men Type: TISSUE SPECIMENOrdering Facility: [facility] Address: [address] [place] [address] Performed By: #### L [id number] ####[facility] LABCLIA [id number] [address] [place] [address] [place] PROGESTERONE RECEPTOR (% TUMOR STAINING) <1 Normal [facility] Comment on above: Order Comment: Speci men Type: TISSUE SPECIMENOrdering Facility: [facility] Address: [address] [place], [place] [address] Performed By: #### L [id number] ####[facility] LABCLIA [id number] [address] [place] [address] [place] PROGESTERONE RECEPTOR (STAINING INTENSITY) Not Applicable Normal [facility] Comment on above: Order Comment: Speci men Type: TISSUE SPECIMENOrdering Facility: [facility] Address: [address] [place], [place] [address] Performed By: #### L [id number] ####[facility] LABCLIA [id number] [address] [place] [address] [place] PROGESTERONE RECEPTOR EXTERNAL CONTROL Present and Stained as Expected Normal [facility] Comment on above: Order Comment: Speci men Type: TISSUE SPECIMENOrdering Facility: [facility] Address: [address] [place], [place] [address] Performed By: #### L [id number] ####[facility] LABCLIA [id number] [address] [place] [address] [place] PROGESTERONE RECEPTOR INTERNAL CONTROL Absent Normal [facility] Comment on above: Order Comment: Speci men Type: TISSUE SPECIMENOrdering Facility: [facility] Address: [address] [place], [place] [address] Performed By: #### L [id number] ####[facility] LABCLIA [id number] [address] [place] [address] [place] PROGESTERONE RECEPTOR STATUS (INVASIVE) Negative Normal [facility] Comment on above: Order Comment: Speci men Type: TISSUE SPECIMENOrdering Facility: [facility] Address: [address] [place], [place] [address] Performed By: #### L [id number] ####[facility] LABCLIA [id number] [facility] [address] [id number], [place] [address] [place] TOTAL FIXATION TIME Not Provided Normal [facility] Comment on above: Order Comment: Speci men Type: TISSUE SPECIMENOrdering Facility: [facility] Address: [address] [place] [address] Performed By: #### L [id number] ####[facility] LABCLIA [id number] [facility] [id number], [place] [address] [place] Performed By: #### L [id number] ####[facility] LABCLIA [id number] [facility] [id number], [place] [address] [place] TUMOR TYPE (INVASIVE) Carcinoma Normal [facility] Comment on above: Order Comment: Speci men Type: TISSUE SPECIMENOrdering Facility: [facility] Address: [address] [place], [place] [address] Performed By: #### L [id number] ####[facility] LABCLIA [id number] [facility] [address] [place] [address] [place] WAS SPECIMEN DECALCIFIED No Normal [facility] Comment on above: Order Comment: Speci men Type: TISSUE SPECIMENOrdering Facility: [facility] Address: [address] [place], [place] [address] Performed By: #### L [id number] ####[facility] LABCLIA [id number] [facility] [address] [place] [address] [place] Performed By: #### L [id number] ####[facility] LABCLIA [id number] [facility] [address] [place] [address] [place] CNOVon 07-17-2024 CNOV Normal [facility] PD-L1 22C3on 07-17-2024 BIOMARKER METHOD Normal [facility] Comment on above: Order Comment: Speci men Type: TISSUE SPECIMENOrdering Facility: [facility] Address: [address] [place] [address] Performed By: #### L [id number] ####[facility] LABCLIA [id number] [facility] [address] [place] [address] [place] [facility] CASE NUMBER PD-L1 [id number] Normal [facility] Comment on above: Order Comment: Speci men Type: TISSUE SPECIMENOrdering Facility: [facility] Address: [address] [place] [address] Performed By: #### L [id number] ####[facility] LABCLIA [id number] [address] [place] [address] [place] COMBINED POSITIVE SCORE (CPS) (BREAST, ESPO SCC) 30 Normal [facility] Comment on above: Order Comment: Speci men Type: TISSUE SPECIMENOrdering Facility: [facility] Address: [address] [place] [address] Performed By: #### L [id number] ####[facility] LABCLIA [id number] [address] [place] [address] [place] PD-L1 22C3 CPS (BRST, ESPO SCC) INTERPRETATION Positive Abnormal [facility] Comment on above: Order Comment: Speci men Type: TISSUE SPECIMENOrdering Facility: [facility] Address: [address] [place] [address] Performed By: #### L [id number] ####[facility] LABCLIA [id number] [address] [place] [address] [place] PD-L1 TUMOR TYPE Other (See Comment) Normal [facility] Comment on above: Order Comment: Speci men Type: TISSUE SPECIMENOrdering Facility: [facility] Address: [address] [place], [place] [address] Result Comment: Inva sive carcinoma involving dermis Performed By: #### L [id number] ####[facility] LABCLIA [id number] [address] [place] [address] [place] Pathology biopsy report Gerald (Tiss)on 07-17-2024 ADDENDUM 1: Normal [facility] Comment on above: Order Comment: Speci men Type: TISSUE SPECIMENOrdering Facility: [facility] Address: [address] [place] [address] Result Comment: Adde ndum was created in error.[facility] 09/21/24Addendum electronically signed by Pedro Luis Palma MD on 09/21/2024 at 1637 EDT Performed By: #### 6 6121-5 ####[facility] LABIA [id number] [place] [id number] [place] AP DISCLAIMER Normal [facility] Comment on above: Order Comment: Speci men Type: TISSUE SPECIMENOrdering Facility: [facility] Address: [address] [place] [address] Result Comment: Nadya sherman Developed Test (LDT) Disclaimer:Performance characteristics of immunohistochemical, immunofluorescent, and chromogenic in-situ hybridization tests have been determined by the performing laboratory within [facility]'s [facility] Pathology and Laboratory Medicine Department ([facility], [facility], [facility], [facility], [facility], [facility], or [facility]) in a manner consistent with CLIA requirements. One or more of these tests may not have been cleared or approved by the FDA. RT[facility]PLM is regulated under CLIA as qualified to perform high-complexity testing. These tests are used for clinical purposes. These should not be regarded as investigational or for research. Positive and negative controls stain appropriately. Performed By: #### 6 6121-5 ####[facility] LABIA [id number] [place] [address] [place] CASE REPORT Normal [facility] Comment on above: Order Comment: Speci men Type: TISSUE SPECIMENOrdering Facility: [facility] Address: [address] [place] [address] Result Comment: Surg ica Pathology Report Case: [id number] Provider: Mary Green MD Collected: 07/17/2024 01:15 PMOrdering Location: General Surgery Received: 07/17/2024 03:37 PMPathologist: Pedro Luis Palma MDSpecimen: Skin, Punch Biopsy, Left Breast Performed By: #### 6 6121-5 ####[facility] LABCLIA [id number] [place] [address] [place] CLINICAL HISTORY Normal [facility] Comment on above: Order Comment: Speci men Type: TISSUE SPECIMENOrdering Facility: [facility] Address: [address] [place] [address] Result Comment: Skin , Punch BiopsyComment: Left Breast Performed By: #### 6 6121-5 ####[facility] LABIA [id number] [address] DIAGNOSIS COMMENT Normal [facility] Comment on above: Order Comment: Speci men Type: TISSUE SPECIMENOrdering Facility: [facility] Address: [address] [place] [address] Result Comment: Hist ologic sections show an [...] staining is performed at the [facility] on [address] with appropriate controls. Stains for cytokeratins AE1/AE3, GATA3, and SOX10 are weakly but diffusely positive in the lesional cells, while stains for p63 and CK7 are negative.Overall, these features are consistent with invasive carcinoma and are consistent with carcinoma of breast origin. Select slides of this case were reviewed with Dr Tomas Mera of the [facility] Breast Pathology Service, who concurs with the above diagnosis of carcinoma.Breast biomarkers (ER, PgR, and HER2) are pending, the results of which will be reported separately.[facility] 07/24/24 Performed By: #### 6 6121-5 ####[facility] LABIA [id number] [place] [id number] [facility] FINAL DIAGNOSIS Normal [facility] Comment on above: Order Comment: Speci men Type: TISSUE SPECIMENOrdering Facility: [facility] Address: [address] [place] [address] Result Comment: Left breast, skin, punch biopsy:- Invasive carcinoma involving dermis.[facility] 07/24/24 at 1524 EDT Performed By: #### 6 6121-5 ####[facility] LABCLIA [id number] [place] [address] [place] FINAL PERFORMING LAB Normal [facility] Comment on above: Order Comment: Speci men Type: TISSUE SPECIMENOrdering Facility: [facility] Address: [address] [place] [address] Result Comment: Diag nostic interpretation performed at: [facility], [address] [place] [address] CLIA# [id number] Director: Rob Mello MD Performed By: #### 6 6121-5 ####[facility] LABCLIA [id number] [place] [address] [place] GROSS DESCRIPTION Normal [facility] Comment on above: Order Comment: Speci men Type: TISSUE SPECIMENOrdering Facility: [facility] Address: [address] [place] [address] Result Comment: A. S kin, Punch BiopsyReceived in formalin on Telfa gauze are two cylindrical segments of skin and subcutaneous tissue aggregating to 0.5 x 1.0 x 0.5 cm. The specimens are not sectioned. Totally submitted in two cassettes.DL July 17, 2024 10:40 PMGross examination performed at [facility], [address] [place] [address] Performed By: #### 6 6121-5 ####[facility] LABCLIA [id number] [place] [id number] [place] CNOVSPon 07-16-2024 CNOVSP Normal [facility] CNPNon 07-13-2024 CNPN Normal [facility] PT D/C Summary (1)on 025 PT D/C Summary (1) [facility] [address] [place] [address] / REHABILITATION SERVICES DISCHARGE SUMMARY MR#: [id number] Acct: [id number] Name: Everette HERBERT Rep #: [id number] : 1960 64 From: Chase Manjarrez PT, Cert. T, OCS Referring Dr.: Dr. Alec Kong MD Status: REG RCR Insurance: MEDICARE PART A B [employer] [place] Discharge Summary D/C summary: It has been [...] please feel free to call me at [phone]. Thank you for the referral of this patient. Sincerely, Chase Manjarrez, PT, Cert MDT, OCS Balance/Gait/Functional tests Balance/Special Test Scores Oswestry Low Back Score: 0 Improvement % Improvement: 80 06/30/24 1511 CC: Dr. Alec Kong MD; Dr. Hellen Lafleur MD JLA Signed Normal [facility] CBC W Auto Differential pane l (Bld)on 06-01-2024 Basophils (Bld) [#/Vol] 0.05 10*3/uL Normal <0.11 [facility] Comment on above: Order Comment: Speci men Type: BLOOD SPECIMENOrdering Facility: [facility] Address: [address] [place] [address] Performed By: #### 5 7021-8 ####[facility] GLENBEIGHLIA [id number] [place] [address] [place] Basophils/100 WBC (Bld) 1.4 % Normal [facility] Comment on above: Order Comment: Speci men Type: BLOOD SPECIMENOrdering Facility: [facility] Address: [address] [place] [address] Performed By: #### 5 7021-8 ####[facility] [id number] [place] [address] [place] Differential cell count method Nom (Bld) Auto Normal [facility] Comment on above: Order Comment: Speci men Type: BLOOD SPECIMENOrdering Facility: [facility] Address: [address] [place] [address] Performed By: #### 5 7021-8 ####[facility] GLENBEIGHLIA [id number] [place] [address] [place] Eosinophils (Bld) [#/Vol] 0.22 10*3/uL Normal <0.46 [facility] Comment on above: Order Comment: Speci men Type: BLOOD SPECIMENOrdering Facility: [facility] Address: [address] [place] [address] Performed By: #### 5 7021-8 ####[facility] OMARLALILIA [id number] [place] [address] [place] Eosinophils/100 WBC (Bld) 6.2 % Normal [facility] Comment on above: Order Comment: Speci men Type: BLOOD SPECIMENOrdering Facility: [facility] Address: [address] [place] [address] Performed By: #### 5 7021-8 ####[facility] H[facility]PITALNANO [id number] [place] [address] [place] Erythrocyte distribution width (RBC) [Ratio] 13.8 % Normal 11.5-15.0 [facility] Comment on above: Order Comment: Speci men Type: BLOOD SPECIMENOrdering Facility: [facility] Address: [address] [place] [address] Performed By: #### 5 7021-8 ####[facility] [id number] [place] [address] [place] Hematocrit (Bld) [Volume fraction] 35.5 % Low 36.0-46.0 [facility] Comment on above: Order Comment: Speci men Type: BLOOD SPECIMENOrdering Facility: [facility] Address: [address] [place] [address] Performed By: #### 5 7021-8 ####[facility] HOSPITALBLAKEA [id number] [place] [address] [place] Hemoglobin (Bld) [Mass/Vol] 11.9 g/dL Normal 11.5-15.5 [facility] Comment on above: Order Comment: Speci men Type: BLOOD SPECIMENOrdering Facility: [facility] Address: [address] [place] [address] Performed By: #### 5 7021-8 ####[facility]ITALNCLIA [id number] [place] [address] [place] Immature granulocytes (Bld) [#/Vol] 10*3/uL Normal <0.10 [facility] Comment on above: Order Comment: Speci men Type: BLOOD SPECIMENOrdering Facility: [facility] Address: [address] [place] [address] Performed By: #### 5 7021-8 ####[facility] [id number] [place] [address] [place] Immature granulocytes/100 WBC (Bld) 0.3 % Normal [facility] Comment on above: Order Comment: Speci men Type: BLOOD SPECIMENOrdering Facility: [facility] Address: [address] [place] [address] Performed By: #### 5 7021-8 ####[facility] [id number] [place] [address] [place] Lymphocytes (Bld) [#/Vol] 0.61 10*3/uL Low 1.00-4.00 [facility] Comment on above: Order Comment: Speci men Type: BLOOD SPECIMENOrdering Facility: [facility] Address: [address] [place] [address] Performed By: #### 5 7021-8 ####[facility] [id number] [place] [address] [place] Lymphocytes/100 WBC (Bld) 17.2 % Normal [facility] Comment on above: Order Comment: Speci men Type: BLOOD SPECIMENOrdering Facility: [facility] Address: [address] [place] [address] Performed By: #### 5 7021-8 ####[facility] [id number] [place] [address] [place] MCH (RBC) [Entitic mass] 29.8 pg Normal 26.0-34.0 [facility] Comment on above: Order Comment: Speci men Type: BLOOD SPECIMENOrdering Facility: [facility] Address: [address] [place] [address] Performed By: #### 5 7021-8 ####[facility] VUBLAKEA [id number] [address] [facility] MCHC (RBC) [Mass/Vol] 33.5 g/dL Normal 30.5-36.0 [facility] Comment on above: Order Comment: Speci men Type: BLOOD SPECIMENOrdering Facility: [facility] Address: [address] [place] [address] Performed By: #### 5 7021-8 ####[facility]ITALBLAKEA [id number] [place] [address] [place] MCV (RBC) [Entitic vol] 89.0 fL Normal 80.0-100.0 [facility] Comment on above: Order Comment: Speci men Type: BLOOD SPECIMENOrdering Facility: [facility] Address: [address] [place] [address] Performed By: #### 5 7021-8 ####[facility]ITALBLAKEA [id number] [place] [address] [place] Monocytes (Bld) [#/Vol] 0.48 10*3/uL Normal <0.87 [facility] Comment on above: Order Comment: Speci men Type: BLOOD SPECIMENOrdering Facility: [facility] Address: [address] [place] [address] Performed By: #### 5 7021-8 ####[facility] HOSPITALTEMITOPELIA [id number] [place] [address] [place] Monocytes/100 WBC (Bld) 13.6 % Normal [facility] Comment on above: Order Comment: Speci men Type: BLOOD SPECIMENOrdering Facility: [facility] Address: [address] [place] [address] Performed By: #### 5 7021-8 ####[facility]ITALBLAKE [id number] [place] [address] [place] Neutrophils (Bld) [#/Vol] 2.17 10*3/uL Normal 1.45-7.50 [facility] Comment on above: Order Comment: Speci men Type: BLOOD SPECIMENOrdering Facility: [facility] Address: [address] [place] [address] Performed By: #### 5 7021-8 ####[facility] [id number] [place] [address] [place] Neutrophils/100 WBC (Bld) 61.3 % Normal [facility] Comment on above: Order Comment: Speci men Type: BLOOD SPECIMENOrdering Facility: [facility] Address: [address] [place] [address] Performed By: #### 5 7021-8 ####[facility] [id number] [place] [address] [place] Nucleated RBC (Bld) [#/Vol] 10*3/uL Normal <0.01 [facility] Comment on above: Order Comment: Speci men Type: BLOOD SPECIMENOrdering Facility: [facility] Address: [address] [place] [address] Performed By: #### 5 7021-8 ####[facility] [id number] [place] [address] [place] Nucleated RBC/100 WBC (Bld) [Ratio] 0.0 /100 WBC Normal [facility] Comment on above: Order Comment: Speci men Type: BLOOD SPECIMENOrdering Facility: [facility] Address: [address] [place] [address] Performed By: #### 5 7021-8 ####[facility]ITALNCLIA [id number] [place] [address] [place] Platelet mean volume (Bld) [Entitic vol] 8.6 fL Low 9.0-12.7 [facility] Comment on above: Order Comment: Speci men Type: BLOOD SPECIMENOrdering Facility: [facility] Address: [address] [place] [address] Performed By: #### 5 7021-8 ####[facility]ITALNCLAKEVIEW [facility] [id number] [place] [address] [place] Platelets (Bld) [#/Vol] 248 10*3/uL Normal 150-400 [facility] Comment on above: Order Comment: Speci men Type: BLOOD SPECIMENOrdering Facility: [facility] Address: [address] [place] [address] Performed By: #### 5 7021-8 ####[facility] [id number] [place] [address] [place] RBC (Bld) [#/Vol] 3.99 10*6/uL Normal 3.90-5.[address] [facility] Comment on above: Order Comment: Speci men Type: BLOOD SPECIMENOrdering Facility: [facility] Address: [address] [place] [address] Performed By: #### 5 7021-8 ####[facility] [id number] [place] [address] [place] WBC (Bld) [#/Vol] 3.54 10*3/uL Low 3.70-11.[address] [facility] Comment on above: Order Comment: Speci men Type: BLOOD SPECIMENOrdering Facility: [facility] Address: [address] [place] [address] Performed By: #### 5 7021-8 ####[facility]ITALNCLIA [id number] [place] [address] [place] CNOVSPon 06-01-2024 CNOVSP Normal [facility] Comprehensive metabolic 2000 panelon 03-10-2025 Albumin [Mass/Vol] 4.4 g/dL Normal 3.9-4.9 [facility] Comment on above: Order Comment: Speci men Type: BLOOD SPECIMENOrdering Facility: [facility] Address: [address] [place] [address] Performed By: #### 2 4323-8 ####[facility]ITALNCLIA [id number] [place] [address] [place] ALP [Catalytic activity/Vol] 74 U/L Normal 34-123 [facility] Comment on above: Order Comment: Speci men Type: BLOOD SPECIMENOrdering Facility: [facility] Address: [address] [place] [address] Performed By: #### 2 4323-8 ####[facility] GLENBEIGHLIA [id number] [place] [address] [place] ALT [Catalytic activity/Vol] 10 U/L Normal 7-38 [facility] Comment on above: Order Comment: Speci men Type: BLOOD SPECIMENOrdering Facility: [facility] Address: [address] [place] [address] Performed By: #### 2 4323-8 ####[facility] H[facility]PITALA [id number] [place] [address] [place] Anion gap [Moles/Vol] 9 mmol/L Normal 8-15 [facility] Comment on above: Order Comment: Speci men Type: BLOOD SPECIMENOrdering Facility: [facility] Address: [address] [place] [address] Performed By: #### 2 4323-8 ####[facility]ITALNCLIA [id number] [place] [address] [place] AST [Catalytic activity/Vol] 16 U/L Normal 13-35 [facility] Comment on above: Order Comment: Speci men Type: BLOOD SPECIMENOrdering Facility: [facility] Address: [address] [place] [address] Performed By: #### 2 4323-8 ####[facility] GALINA MILLTOWNCLIA [id number] [place] [address] [place] Bilirubin [Mass/Vol] 0.2 mg/dL Normal 0.2-1.3 [facility] Comment on above: Order Comment: Speci men Type: BLOOD SPECIMENOrdering Facility: [facility] Address: [address] [place] [address] Performed By: #### 2 4323-8 ####[facility] MILLWNCLIA [id number] [place] [address] [place] Calcium [Mass/Vol] 9.5 mg/dL Normal 8.5-10.2 [facility] Comment on above: Order Comment: Speci men Type: BLOOD SPECIMENOrdering Facility: [facility] Address: [address] [place] [address] Performed By: #### 2 4323-8 ####[facility] PINE RIDGEWNCLIA [id number] [place] [address] [place] Chloride [Moles/Vol] 97 mmol/L Low 98-107 [facility] Comment on above: Order Comment: Speci men Type: BLOOD SPECIMENOrdering Facility: [facility] Address: [address] [place] [address] Performed By: #### 2 4323-8 ####[facility] MILLTOWNCLIA [id number] [place] [address] [place] CO2 [Moles/Vol] 28 mmol/L Normal 22-30 [facility] Comment on above: Order Comment: Speci men Type: BLOOD SPECIMENOrdering Facility: [facility] Address: [address] [place] [address] Performed By: #### 2 4323-8 ####[facility] MILLWNCLIA [id number] [place] [address] [place] Creatinine [Mass/Vol] 0.71 mg/dL Normal 0.58-0.96 [facility] Comment on above: Order Comment: [place] villarreal Type: BLOOD SPECIMENOrdering Facility: [facility] Address: [address] [place] [address] Performed By: #### 2 4323-8 ####[facility] [id number] [place] [address] [place] Creatinine and Glomerular filtration rate.predicted panel (S/P/Bld) 94 mL/min/1.73m??? Normal >=60 [facility] Comment on above: Order Comment: [place] villarreal Type: BLOOD SPECIMENOrdering Facility: [facility] Address: [address] [place] [address] Result Comment: Alayna mated Glomerular Filtration Rate [...] GFR. Performed By: #### 2 4323-8 ####[facility] [id number] [place] [address] [place] Glucose [Mass/Vol] 105 mg/dL High 74-99 [facility] Comment on above: Order Comment: [place] villarreal Type: BLOOD SPECIMENOrdering Facility: [facility] Address: [address] [place] [address] Result Comment: The [place] Diabetes Association (ADA) provides guidance for cutoff [...] Standards of Medical Care in Diabetes 2016, [place] Diabetes Association. Diabetes Care. 2016.39(Suppl 1). Performed By: #### 2 4323-8 ####[facility] [id number] [place] [address] [place] Potassium [Moles/Vol] 4.3 mmol/L Normal 3.7-5.1 [facility] Comment on above: Order Comment: Speci men Type: BLOOD SPECIMENOrdering Facility: [facility] Address: [address] [place] [address] Performed By: #### 2 4323-8 ####[facility] [id number] [place] [address] [place] Protein [Mass/Vol] 6.7 g/dL Normal 6.3-8.0 [facility] Comment on above: Order Comment: Speci men Type: BLOOD SPECIMENOrdering Facility: [facility] Address: [address] [place], [place] [address] Performed By: #### 2 4323-8 ####[facility] [id number] [place] [address] [place] Sodium [Moles/Vol] 134 mmol/L Low 136-144 [facility] Comment on above: Order Comment: Speci men Type: BLOOD SPECIMENOrdering Facility: [facility] Address: [address] [place] [address] Performed By: #### 2 4323-8 ####[facility] [id number] [place] [address] [place] Urea nitrogen [Mass/Vol] 17 mg/dL Normal 7-21 [facility] Comment on above: Order Comment: Speci men Type: BLOOD SPECIMENOrdering Facility: [facility] Address: [address] [place] [address] Performed By: #### 2 4323-8 ####[facility] GALINA MILLST. MARY MEDICAL CENTERLIA [id number] [place] [address] [place] Cortis SerPl-mCncon 06-02-19 25 Cortisol [Mass/Vol] 7.6 ug/dL Normal 4.8-19.[address] [facility] Comment on above: Order Comment: Speci men Type: BLOOD SPECIMENOrdering Facility: [facility] Address: [address] [place] [address] Result Comment: Prov ided reference range is from 6-10 AM sample collection time.Cortisol Reference Range: 6-10 AM = 4.8-19.5 ug/dL, 4-8 PM = 2.5-11.9 ug/dL Performed By: #### 2 143-6, 3016-3, 3027 ####[facility] LABCLIA [id number] [place] [address] [place] T4 Free SerPl-mCncon 025 Free T4 [Mass/Vol] 1.0 ng/dL Normal 0.9-1.7 [facility] [facility] Comment on above: Order Comment: Speci men Type: BLOOD SPECIMENOrdering Facility: [facility] Address: [address] [place] [address] Performed By: #### 2 143-6, 3016-3, 3027 ####[facility] LABCLIA [id number] [place] [address] [place] TSH SerPl-aCncon 06-01-2024 TSH Qn 1.470 m[IU]/L Normal 0.270-4.20 0 [facility] Comment on above: Order Comment: Speci men Type: BLOOD SPECIMENOrdering Facility: [facility] Address: [address] [place] [address] Performed By: #### 2 143-6, 3016-3, 302-7 ####[facility] LABCLIA [id number] [place] [address] [place] CREATININE BLDon 05-25-2024 Creatinine [Mass/Vol] 0.70 mg/dL Normal 0.58-0.96 [facility] Comment on above: Order Comment: Speci men Type: BLOOD SPECIMENOrdering Facility: [facility] Address: [address] [place] [address] Performed By: #### C RET1 ####[facility] [id number] [place] [address] [place] Creatinine and Glomerular filtration rate.predicted panel (S/P/Bld) 96 mL/min/1.73m??? Normal >=60 [facility] Comment on above: Order Comment: Speci men Type: BLOOD SPECIMENOrdering Facility: [facility] Address: [address] [place] [address] Result Comment: Alayna mated Glomerular Filtration Rate [...] actual GFR. Performed By: #### C RET1 ####[facility] [id number] [place] [address] [place] CT ABD/PEL W IVCONon 025 CT ABD/PEL W IVCON Normal [facility] CT CHEST W IVCONon 5 CT CHEST W IVCON Normal [facility] CNPNon 05-20-2024 CNPN Normal [facility] US BREAST RIGHT LIMITEDon US BREAST RIGHT LIMITED ORIGINAL FROM: [facility] [address] [place] [address] PROCEDURE FOR: CARRIE HERBERT Formerly [facility] [place] [address] Home: PID#: [id number] [facility] [id number] Exam#: [id number] : 1960 Age: 63 TO: DEBBIE MERINO MD [address] [place] [place] [id number] Fax: NO FAX EXAMINATION: ULTRASOUND OF THE [...] CLINICAL: RIGHT BREAST FOLLOW- UP 1 O'CLOCK. Apartment Leasing Specialist: HARSH WILLIAM RT(R)(M), RDMS letter sent: Probably Benign BI-RADS 3 Ultrasound BI-RADS: 3 Probably benign Normal [facility] MAIN Surgery Visit Reporton 04-29 Surgery Visit Report [facility] [address] [place] [address]. [address] [place] [address] OFFICE VISIT Date of Service: 04/29/24 MR#: [id number] Acct: [id number] Name: Everette HERBERT Rep #: [id number] : 1960 Provider: Dr. Arben faustin MD Age/Sex: 63/F Location: [facility] Status: Signed Intake Vital Signs 04/22/23 12:12 [...] tab PO DAILY 04/18/23 04/29/24 History tablet) [facility] Medical History (Updated 04/29/24 @ 13:09 by [...] or lesi (more content not included)... Normal [facility] CNPNon 04-27-2024 CNPN Normal [facility] Inital Evaluation (1) - PTon 04-27-2024 Inital Evaluation (1) - PT [facility] Physical Therapy [facility] [address] [place] [address] / REHABILITATION SERVICES INITIAL EVALUATION MR#: [id number] Acct: [id number] Name: Everette HERBERT Rep #: [id number] : 1960 63 From: Chase Manjarrez PT, Cert. T, OCS Referring Dr.: Dr. Alec Kong MD Status: REG RCR Insurance: MEDICARE PART A B [facility] Patient's Visit Information Visit Information Visit Information: [...] Response: No effect Lumbar Standing: Right Side [place] - Symptoms During Testing: No effect Lumbar Standing: Right Side [place] - Symptoms After Testing: No effect Lumbar Standing: Left Side [place] - Mechanical Response: No effect Lumbar Standing: Left Side [place] - Symptoms During Testing: No effect Lumbar Standing: Left Side [place] - Symptoms After Testing: No effect Lumbar [...] to activ (more content not included)... Normal [facility] L/S Spine w Bend Min 6 Vwon 04-07-2024 L/S Spine w Bend Min 6 Vw [facility] [address] [place], [place] [address] L/S Spine w Bend Min 6 Vw MR#: [id number] Acct: [id number] Name: Everette HERBERT Rep #: [id number] : 1960 F 63 From: Thu Moulton MD PCP: Dr. Hellen Lafleur MD Status: REG CLI Study: L/S Spine w Bend Min 6 Vw Date of Exam: Exam# [id number] Ordering Dr: Alec Kong :[id number] EXAM: XR LUMBOSACRAL SPINE COMPLETE WITH FLEXION/EXTENSION, [...] Alec Kong MD; Dr. Hellen Lafleur MD Architectural Inspector: Signed Normal [facility] 03-19-2024 [facility] Normal [facility] CBC W Auto Differential pane l (Bld)on 02-24-2024 Basophils (Bld) [#/Vol] 0.03 10*3/uL [facility] Basophils/100 WBC (Bld) 0.7 % [facility] Differential cell count method Nom (Bld) Auto [facility] Eosinophils (Bld) [#/Vol] 0.18 10*3/uL [facility] Eosinophils/100 WBC (Bld) 4.3 % [facility] Erythrocyte distribution width (RBC) [Ratio] 13.4 % 11.5 - 15.0 % [facility] Hematocrit (Bld) [Volume fraction] 33.7 % Low 36.0 - 46.0 % [facility] Hemoglobin (Bld) [Mass/Vol] 11.5 g/dL 11.5 - 15.5 g/dL [facility] Immature granulocytes (Bld) [#/Vol] [facility] Immature granulocytes/100 WBC (Bld) 0.0 % [facility] Interpretation and review of laboratory results Abnormal [facility] Lymphocytes (Bld) [#/Vol] 0.61 10*3/uL Low [facility] Lymphocytes/100 WBC (Bld) 14.6 % [facility] MCH (RBC) [Entitic mass] 29.8 pg 26.0 - 34.0 pg [facility] MCHC (RBC) [Mass/Vol] 34.1 g/dL 30.5 - 36.0 g/dL [facility] MCV (RBC) [Entitic vol] 87.3 fL 80.0 - 100.0 fL [facility] Monocytes (Bld) [#/Vol] 0.49 10*3/uL [facility] Monocytes/100 WBC (Bld) 11.7 % [facility] Neutrophils (Bld) [#/Vol] 2.87 10*3/uL [facility] Neutrophils/100 WBC (Bld) 68.7 % [facility] Nucleated RBC (Bld) [#/Vol] NINF [facility] Nucleated RBC/100 WBC (Bld) [Ratio] 0.0 % /100 WBC [facility] Platelet mean volume (Bld) [Entitic vol] 8.7 fL Low 9.0 - 12.7 fL [facility] Platelets (Bld) [#/Vol] 233 10*3/uL [facility] RBC (Bld) [#/Vol] 3.86 10*6/uL Low 3.90 - 5.20 m/uL [facility] WBC (Bld) [#/Vol] 4.18 10*3/uL [facility] Basophils (Bld) [#/Vol] 0.03 10*3/uL Normal <0.11 [facility] Comment on above: Order Comment: Speci men Type: BLOOD SPECIMENOrdering Facility: [facility] Address: [address] [place] [address] Performed By: #### 5 7021-8 ####[facility] [id number] [address] [facility] Basophils/100 WBC (Bld) 0.7 % Normal [facility] Comment on above: Order Comment: Speci men Type: BLOOD SPECIMENOrdering Facility: [facility] Address: [address] [place] [address] Performed By: #### 5 7021-8 ####[facility] [id number] [place] [address] [place] Differential cell count method Nom (Bld) Auto Normal [facility] Comment on above: Order Comment: Speci men Type: BLOOD SPECIMENOrdering Facility: [facility] Address: [address] [place] [address] Performed By: #### 5 7021-8 ####[facility] [id number] [place] [address] [place] Eosinophils (Bld) [#/Vol] 0.18 10*3/uL Normal <0.46 [facility] Comment on above: Order Comment: Speci men Type: BLOOD SPECIMENOrdering Facility: [facility] Address: [address] [place] [address] Performed By: #### 5 7021-8 ####[facility] HOSPITALNCBrandee [id number] [place] [address] [place] Eosinophils/100 WBC (Bld) 4.3 % Normal [facility] Comment on above: Order Comment: Speci men Type: BLOOD SPECIMENOrdering Facility: [facility] Address: [address] [place] [address] Performed By: #### 5 7021-8 ####[facility] HOSPITALNCLAKEVIEW HOSPITAL [id number] [place] [address] [place] Erythrocyte distribution width (RBC) [Ratio] 13.4 % Normal 11.5-15.0 [facility] Comment on above: Order Comment: Speci men Type: BLOOD SPECIMENOrdering Facility: [facility] Address: [address] [place] [address] Performed By: #### 5 7021-8 ####[facility] HOSPITALNCLI [id number] [place] [address] [place] Hematocrit (Bld) [Volume fraction] 33.7 % Low 36.0-46.0 [facility] Comment on above: Order Comment: Speci men Type: BLOOD SPECIMENOrdering Facility: [facility] Address: [address] [place] [address] Performed By: #### 5 7021-8 ####[facility] OMARBABSON PARKNCNATALI [id number] [place] [address] [place] Hemoglobin (Bld) [Mass/Vol] 11.5 g/dL Normal 11.5-15.5 [facility] Comment on above: Order Comment: Speci men Type: BLOOD SPECIMENOrdering Facility: [facility] Address: [address] [place] [address] Performed By: #### 5 7021-8 ####[facility] HOSPITALNCLAKEVIEW HOSPITAL [id number] [place] [address] [place] Immature granulocytes (Bld) [#/Vol] 10*3/uL Normal <0.10 [facility] Comment on above: Order Comment: Speci men Type: BLOOD SPECIMENOrdering Facility: [facility] Address: [address] [place] [address] Performed By: #### 5 7021-8 ####[facility] HOSPITALA [id number] [place] [address] [place] Immature granulocytes/100 WBC (Bld) 0.0 % Normal [facility] Comment on above: Order Comment: Speci men Type: BLOOD SPECIMENOrdering Facility: [facility] Address: [address] [place] [address] Performed By: #### 5 7021-8 ####[facility] HOSPITALNCLIA [id number] [place] [address] [place] Lymphocytes (Bld) [#/Vol] 0.61 10*3/uL Low 1.00-4.00 [facility] Comment on above: Order Comment: Speci men Type: BLOOD SPECIMENOrdering Facility: [facility] Address: [address] [place] [address] Performed By: #### 5 7021-8 ####[facility] GLENBEIGHLIA [id number] [place] [address] [place] Lymphocytes/100 WBC (Bld) 14.6 % Normal [facility] Comment on above: Order Comment: Speci men Type: BLOOD SPECIMENOrdering Facility: [facility] Address: [address] [place] [address] Performed By: #### 5 7021-8 ####[facility] GLENBEIGHELICIAA [id number] [place] [address] [place] MCH (RBC) [Entitic mass] 29.8 pg Normal 26.0-34.0 [facility] Comment on above: Order Comment: Speci men Type: BLOOD SPECIMENOrdering Facility: [facility] Address: [address] [place] [address] Performed By: #### 5 7021-8 ####[facility] [id number] [place] [address] [place] MCHC (RBC) [Mass/Vol] 34.1 g/dL Normal 30.5-36.0 [facility] Comment on above: Order Comment: Speci men Type: BLOOD SPECIMENOrdering Facility: [facility] Address: [address] [place] [address] Performed By: #### 5 7021-8 ####[facility] [id number] [place] [address] [place] MCV (RBC) [Entitic vol] 87.3 fL Normal 80.0-100.0 [facility] Comment on above: Order Comment: Speci men Type: BLOOD SPECIMENOrdering Facility: [facility] Address: [address] [place] [address] Performed By: #### 5 7021-8 ####[facility] [id number] [place] [address] [place] Monocytes (Bld) [#/Vol] 0.49 10*3/uL Normal <0.87 [facility] Comment on above: Order Comment: Speci men Type: BLOOD SPECIMENOrdering Facility: [facility] Address: [address] [place] [address] Performed By: #### 5 7021-8 ####[facility] HOSPITALA [id number] [place] [address] [place] Monocytes/100 WBC (Bld) 11.7 % Normal [facility] Comment on above: Order Comment: Speci men Type: BLOOD SPECIMENOrdering Facility: [facility] Address: [address] [place] [address] Performed By: #### 5 7021-8 ####[facility] [id number] [place] [address] [place] Neutrophils (Bld) [#/Vol] 2.87 10*3/uL Normal 1.45-7.50 [facility] Comment on above: Order Comment: Speci men Type: BLOOD SPECIMENOrdering Facility: [facility] Address: [address] [place] [address] Performed By: #### 5 7021-8 ####[facility] HOSPITALA [id number] [place] [address] [place] Neutrophils/100 WBC (Bld) 68.7 % Normal [facility] Comment on above: Order Comment: Speci men Type: BLOOD SPECIMENOrdering Facility: [facility] Address: [address] [place] [address] Performed By: #### 5 7021-8 ####[facility] [id number] [place] [address] [place] Nucleated RBC (Bld) [#/Vol] 10*3/uL Normal <0.01 [facility] Comment on above: Order Comment: Speci men Type: BLOOD SPECIMENOrdering Facility: [facility] Address: [address] [place] [address] Performed By: #### 5 7021-8 ####[facility] JERO [id number] [place] [address] [place] Nucleated RBC/100 WBC (Bld) [Ratio] 0.0 /100 WBC Normal [facility] Comment on above: Order Comment: Speci men Type: BLOOD SPECIMENOrdering Facility: [facility] Address: [address] [place] [address] Performed By: #### 5 7021-8 ####[facility] OMARPkNCNATALI [id number] [place] [address] [place] Platelet mean volume (Bld) [Entitic vol] 8.7 fL Low 9.0-12.7 [facility] Comment on above: Order Comment: Speci men Type: BLOOD SPECIMENOrdering Facility: [facility] Address: [address] [place] [address] Performed By: #### 5 7021-8 ####[facility] OMARBABSON PARKNANO [id number] [place] [address] [place] Platelets (Bld) [#/Vol] 233 10*3/uL Normal 150-400 [facility] Comment on above: Order Comment: Speci men Type: BLOOD SPECIMENOrdering Facility: [facility] Address: [address] [place] [address] Performed By: #### 5 7021-8 ####[facility] HOSPITALBLAKEA [id number] [place] [address] [place] RBC (Bld) [#/Vol] 3.86 10*6/uL Low 3.90-5.[address] [facility] Comment on above: Order Comment: Speci men Type: BLOOD SPECIMENOrdering Facility: [facility] Address: [address] [place] [address] Performed By: #### 5 7021-8 ####[facility] PINE RIDGEWNCLIA [id number] [place] [address] [place] WBC (Bld) [#/Vol] 4.18 10*3/uL Normal 3.70-11.[address] [facility] Comment on above: Order Comment: Speci men Type: BLOOD SPECIMENOrdering Facility: [facility] Address: [address] [place] [address] Performed By: #### 5 7021-8 ####[facility] HOSPITALNCLIA [id number] [place] [address] [place] CNOVSPon 02-24-2024 CNOVSP Normal [facility] CNPNon 02-24-2024 CNPN Normal [facility] Comprehensive metabolic 2000 panelOrdered By: Dali Pepe on 02-24-2024 Albumin [Mass/Vol] 4.3 g/dL 3.9 - 4.9 g/dL [facility] ALP [Catalytic activity/Vol] 79 U/L 34 - 123 U/L [facility] ALT [Catalytic activity/Vol] 8 U/L 7 - 38 U/L [facility] Anion gap [Moles/Vol] 10 mmol/L 8 - 15 mmol/L [facility] AST [Catalytic activity/Vol] 18 U/L 13 - 35 U/L [facility] Bilirubin [Mass/Vol] 0.3 mg/dL 0.2 - 1 .3 mg/dL [facility] Calcium [Mass/Vol] 9.7 mg/dL 8.5 - 10. 2 mg/dL [facility] Chloride [Moles/Vol] 99 mmol/L 98 - 10 7 mmol/L [facility] CO2 [Moles/Vol] 24 mmol/L 22 - 30 mmol/L [facility] Creatinine [Mass/Vol] 0.77 mg/dL 0.58 - 0.96 mg/dL [facility] GFR/1.73 sq M.predicted among non-blacks MDRD (S/P/Bld) [Vol rate/Area] 86 mL/min/{1.73_m2} - PINF [facility] Comment on above: Estimated Glomerular Filtration [...] High 74 - 99 mg/dL [facility] Comment on above: The [place] Diabete s Association (ADA) provides guidance for [...] Standards of Medical Care in Diabetes 2016, [place] Diabetes Association. Diabetes Care. 2016.39(Suppl 1). Interpretation and review of laboratory results Abnormal [facility] Potassium [Moles/Vol] 3.9 mmol/L 3.7 - 5.1 mmol/L [facility] Protein [Mass/Vol] 6.5 g/dL 6.3 - 8.0 g/dL [facility] Sodium [Moles/Vol] 133 mmol/L Low 136 - 144 mmol/L [facility] Urea nitrogen [Mass/Vol] 14 mg/dL 7 - 21 mg/dL [facility] Comprehensive metabolic 2000 panelon 02-24-2024 Albumin [Mass/Vol] 4.3 g/dL Normal 3.9-4.9 [facility] Comment on above: Order Comment: Speci men Type: BLOOD SPECIMENOrdering Facility: [facility] Address: [address] [place] [address] Performed By: #### 2 4323-8 ####[facility] GALINAFLOWER HOSPITALBrandee [id number] [place] [address] [place] ALP [Catalytic activity/Vol] 79 U/L Normal 34-123 [facility] Comment on above: Order Comment: Speci men Type: BLOOD SPECIMENOrdering Facility: [facility] Address: [address] [place], [place] [address] Performed By: #### 2 4323-8 ####[facility] INSTITUTETOWNCLIA [id number] [place] [address] [place] ALT [Catalytic activity/Vol] 8 U/L Normal 7-38 [facility] Comment on above: Order Comment: Speci men Type: BLOOD SPECIMENOrdering Facility: [facility] Address: [address] [place] [address] Performed By: #### 2 4323-8 ####[facility] PINE RIDGEWNCLIA [id number] [place] [address] [place] Anion gap [Moles/Vol] 10 mmol/L Normal 8-15 [facility] Comment on above: Order Comment: Speci men Type: BLOOD SPECIMENOrdering Facility: [facility] Address: [address] [place] [address] Performed By: #### 2 4323-8 ####[facility] - PINE RIDGEWVALIA [id number] [place] [address] [place] AST [Catalytic activity/Vol] 18 U/L Normal 13-35 [facility] Comment on above: Order Comment: Speci men Type: BLOOD SPECIMENOrdering Facility: [facility] Address: [address] [place] [address] Performed By: #### 2 4323-8 ####[facility] HOSPITALNCLIA [id number] [place] [address] [place] Bilirubin [Mass/Vol] 0.3 mg/dL Normal 0.2-1.3 [facility] Comment on above: Order Comment: Speci men Type: BLOOD SPECIMENOrdering Facility: [facility] Address: [address] [place] [address] Performed By: #### 2 4323-8 ####[facility] GALINA MILLTOWNCLIA [id number] [place] [address] [place] Calcium [Mass/Vol] 9.7 mg/dL Normal 8.5-10.2 [facility] Comment on above: Order Comment: Speci men Type: BLOOD SPECIMENOrdering Facility: [facility] Address: [address] [place] [address] Performed By: #### 2 4323-8 ####[facility] MILLTOWNCLIA [id number] [place] [address] [place] Chloride [Moles/Vol] 99 mmol/L Normal 98-107 [facility] Comment on above: Order Comment: Speci men Type: BLOOD SPECIMENOrdering Facility: [facility] Address: [address] [place] [address] Performed By: #### 2 4323-8 ####[facility] MILLTOWNCLIA [id number] [place] [address] [place] CO2 [Moles/Vol] 24 mmol/L Normal 22-30 [facility] Comment on above: Order Comment: Speci men Type: BLOOD SPECIMENOrdering Facility: [facility] Address: [address] [place] [address] Performed By: #### 2 4323-8 ####[facility] MILLTOWNCLIA [id number] [place] [address] [place] Creatinine [Mass/Vol] 0.77 mg/dL Normal 0.58-0.96 [facility] Comment on above: Order Comment: Speci men Type: BLOOD SPECIMENOrdering Facility: [facility] Address: [address] [place] [address] Performed By: #### 2 4323-8 ####[facility] MILLWNCLIA [id number] [place] [address] [place] Creatinine and Glomerular filtration rate.predicted panel (S/P/Bld) 86 mL/min/1.73m??? Normal >=60 [facility] Comment on above: Order Comment: [place] villarreal Type: BLOOD SPECIMENOrdering Facility: [facility] Address: [address] [place] [address] Result Comment: Alayna mated Glomerular Filtration Rate [...] GFR. Performed By: #### 2 4323-8 ####[facility] [id number] [place] [address] [place] Glucose [Mass/Vol] 139 mg/dL High 74-99 [facility] Comment on above: Order Comment: [place] villarreal Type: BLOOD SPECIMENOrdering Facility: [facility] Address: [address] [place] [address] Result Comment: The [place] Diabetes Association (ADA) provides guidance for cutoff [...] Standards of Medical Care in Diabetes 2016, [place] Diabetes Association. Diabetes Care. 2016.39(Suppl 1). Performed By: #### 2 4323-8 ####[facility] [id number] [place] [address] [place] Potassium [Moles/Vol] 3.9 mmol/L Normal 3.7-5.1 [facility] Comment on above: Order Comment: Speci men Type: BLOOD SPECIMENOrdering Facility: [facility] Address: [address] [place] [address] Performed By: #### 2 4323-8 ####[facility] OMARWNCLIA [id number] [place] [address] [place] Protein [Mass/Vol] 6.5 g/dL Normal 6.3-8.0 [facility] Comment on above: Order Comment: Speci men Type: BLOOD SPECIMENOrdering Facility: [facility] Address: [address] [place] [address] Performed By: #### 2 4323-8 ####[facility] HOSPITALNCLIA [id number] [place] [address] [place] [place] Sodium [Moles/Vol] 133 mmol/L Low 136-144 [facility] Comment on above: Order Comment: Speci men Type: BLOOD SPECIMENOrdering Facility: [facility] Address: [address] [place] [address] Performed By: #### 2 4323-8 ####[facility] [id number] [place] [address] [place] Urea nitrogen [Mass/Vol] 14 mg/dL Normal 7-21 [facility] Comment on above: Order Comment: Speci men Type: BLOOD SPECIMENOrdering Facility: [facility] Address: [address] [place] [address] Performed By: #### 2 4323-8 ####[facility] [id number] [place] [address] [place] Cortis SerPl-mCncon 02-24-20 24 Cortisol [Mass/Vol] 10.2 ug/dL Normal 4.8-19.[address] [facility] Comment on above: Order Comment: Speci men Type: BLOOD SPECIMENOrdering Facility: [facility] Address: [address] [place] [address] Result Comment: Prov ided reference range is from 6-10 AM sample collection time.Cortisol Reference Range: 6-10 AM = 4.8-19.5 ug/dL, 4-8 PM = 2.5-11.9 ug/dL Performed By: #### 3 024-7, 6-3, 2142-08 ####[facility] LABCLIA [id number] [place] [address] [place] T4 Free SerPl-mCncon 024 Free T4 [Mass/Vol] 1.1 ng/dL Normal 0.9-1.7 [facility] Comment on above: Order Comment: Speci men Type: BLOOD SPECIMENOrdering Facility: [facility] Address: [address] [place] [address] Performed By: #### 3 024-7, 3015-3, 2142-08 ####[facility] LABCLIA [id number] [place] [address] [place] TSH SerPl-aCncon 02-24-2024 TSH Qn 1.040 m[IU]/L Normal 0.270-4.20 0 [facility] Comment on above: Order Comment: Speci men Type: BLOOD SPECIMENOrdering Facility: [facility] Address: [address] [place] [address] Performed By: #### 3 024-7, 3, 2142-08 ####[facility] LABIA [id number] [place] [id number] [place] CBC W Auto Differential pane l (Bld)on 01-13-2024 Basophils (Bld) [#/Vol] 0.05 10*3/uL [facility] Basophils/100 WBC (Bld) 1.4 % [facility] Differential cell count method Nom (Bld) Auto [facility] Eosinophils (Bld) [#/Vol] 0.17 10*3/uL [facility] Eosinophils/100 WBC (Bld) 4.7 % [facility] Erythrocyte distribution width (RBC) [Ratio] 13.6 % 11.5 - 15.0 % [facility] Hematocrit (Bld) [Volume fraction] 34.1 % Low 36.0 - 46.0 % [facility] Hemoglobin (Bld) [Mass/Vol] 11.4 g/dL Low 11.5 - 15.5 g/dL [facility] Immature granulocytes (Bld) [#/Vol] NINF [facility] Immature granulocytes/100 WBC (Bld) 0.3 % [facility] Interpretation and review of laboratory results Abnormal [facility] Lymphocytes (Bld) [#/Vol] 0.43 10*3/uL Low [facility] Lymphocytes/100 WBC (Bld) 11.9 % [facility] MCH (RBC) [Entitic mass] 29.0 pg 26.0 - 34.0 pg [facility] MCHC (RBC) [Mass/Vol] 33.4 g/dL 30.5 - 36.0 g/dL [facility] MCV (RBC) [Entitic vol] 86.8 fL 80.0 - 100.0 fL [facility] Monocytes (Bld) [#/Vol] 0.63 10*3/uL NINF [facility] Monocytes/100 WBC (Bld) 17.5 % [facility] Neutrophils (Bld) [#/Vol] 2.32 10*3/uL [facility] Neutrophils/100 WBC (Bld) 64.2 % [facility] Nucleated RBC (Bld) [#/Vol] NINF [facility] Nucleated RBC/100 WBC (Bld) [Ratio] 0.0 % /100 WBC [facility] Platelet mean volume (Bld) [Entitic vol] 8.6 fL Low 9.0 - 12.7 fL [facility] Platelets (Bld) [#/Vol] 266 10*3/uL [facility] RBC (Bld) [#/Vol] 3.93 10*6/uL 3.90 - 5.20 m/uL [facility] WBC (Bld) [#/Vol] 3.61 10*3/uL Low [facility] Comprehensive metabolic 2000 panelOrdered By: Kat Araujo on 01-13-2024 Albumin [Mass/Vol] 4.2 g/dL 3.9 - 4.9 g/dL [facility] ALP [Catalytic activity/Vol] 72 U/L 34 - 123 U/L [facility] ALT [Catalytic activity/Vol] 10 U/L 7 - 38 U/L [facility] Anion gap [Moles/Vol] 9 mmol/L 8 - 15 mmol/L [facility] AST [Catalytic activity/Vol] 17 U/L 13 - 35 U/L [facility] Bilirubin [Mass/Vol] 0.2 mg/dL 0.2 - 1 .3 mg/dL [facility] Calcium [Mass/Vol] 9.4 mg/dL 8.5 - 10. 2 mg/dL [facility] Chloride [Moles/Vol] 97 mmol/L Low 98 - 10 7 mmol/L [facility] CO2 [Moles/Vol] 26 mmol/L 22 - 30 mmol/L [facility] Creatinine [Mass/Vol] 0.69 mg/dL 0.58 - 0.96 mg/dL [facility] GFR/1.73 sq M.predicted among non-blacks MDRD (S/P/Bld) [Vol rate/Area] 97 mL/min/{1.73_m2} - PINF [facility] Comment on above: Estimated Glomerular Filtration [...] High 74 - 99 mg/dL [facility] Comment on above: The [place] Diabete s Association (ADA) provides guidance for [...] Standards of Medical Care in Diabetes 2016, [place] Diabetes Association. Diabetes Care. 2016.39(Suppl 1). Interpretation and review of laboratory results Abnormal [facility] Potassium [Moles/Vol] 4.2 mmol/L 3.7 - 5.1 mmol/L [facility] Protein [Mass/Vol] 6.8 g/dL 6.3 - 8.0 g/dL [facility] Sodium [Moles/Vol] 132 mmol/L Low 136 - 144 mmol/L [facility] Urea nitrogen [Mass/Vol] 10 mg/dL 7 - 21 mg/dL [facility] CBC W Auto Differential pane l (Bld)on 12-02-2023 Basophils (Bld) [#/Vol] 0.06 10*3/uL [facility] Basophils/100 WBC (Bld) 1.6 % [facility] Differential cell count method Nom (Bld) Auto [facility] Eosinophils (Bld) [#/Vol] 0.36 10*3/uL [facility] Eosinophils/100 WBC (Bld) 9.5 % [facility] Erythrocyte distribution width (RBC) [Ratio] 13.4 % 11.5 - 15.0 % [facility] Hematocrit (Bld) [Volume fraction] 34.3 % Low 36.0 - 46.0 % [facility] Hemoglobin (Bld) [Mass/Vol] 11.6 g/dL 11.5 - 15.5 g/dL [facility] Immature granulocytes (Bld) [#/Vol] [facility] Immature granulocytes/100 WBC (Bld) 0.3 % [facility] Interpretation and review of laboratory results Abnormal [facility] Lymphocytes (Bld) [#/Vol] 0.44 10*3/uL Low [facility] Lymphocytes/100 WBC (Bld) 11.6 % [facility] MCH (RBC) [Entitic mass] 29.5 pg 26.0 - 34.0 pg [facility] MCHC (RBC) [Mass/Vol] 33.8 g/dL 30.5 - 36.0 g/dL [facility] MCV (RBC) [Entitic vol] 87.3 fL 80.0 - 100.0 fL [facility] Monocytes (Bld) [#/Vol] 0.54 10*3/uL [facility] Monocytes/100 WBC (Bld) 14.2 % [facility] Neutrophils (Bld) [#/Vol] 2.39 10*3/uL [facility] Neutrophils/100 WBC (Bld) 62.8 % [facility] Nucleated RBC (Bld) [#/Vol] NINF [facility] Nucleated RBC/100 WBC (Bld) [Ratio] 0.0 % /100 WBC [facility] Platelet mean volume (Bld) [Entitic vol] 8.8 fL Low 9.0 - 12.7 fL [facility] Platelets (Bld) [#/Vol] 244 10*3/uL [facility] RBC (Bld) [#/Vol] 3.93 10*6/uL 3.90 - 5.20 m/uL [facility] WBC (Bld) [#/Vol] 3.80 10*3/uL [facility] Comprehensive metabolic 2000 panelOrdered By: Siri Harris on 12-02-2023 Albumin [Mass/Vol] 4.4 g/dL 3.9 - 4.9 g/dL [facility] ALP [Catalytic activity/Vol] 75 U/L 34 - 123 U/L [facility] ALT [Catalytic activity/Vol] 10 U/L 7 - 38 U/L [facility] Anion gap [Moles/Vol] 11 mmol/L 8 - 15 mmol/L [facility] AST [Catalytic activity/Vol] 18 U/L 13 - 35 U/L [facility] Bilirubin [Mass/Vol] 0.2 mg/dL 0.2 - 1 .3 mg/dL [facility] Calcium [Mass/Vol] 9.7 mg/dL 8.5 - 10. 2 mg/dL [facility] Chloride [Moles/Vol] 99 mmol/L 98 - 10 7 mmol/L [facility] CO2 [Moles/Vol] 25 mmol/L 22 - 30 mmol/L [facility] Creatinine [Mass/Vol] 0.68 mg/dL 0.58 - 0.96 mg/dL [facility] GFR/1.73 sq M.predicted among non-blacks MDRD (S/P/Bld) [Vol rate/Area] 97 mL/min/{1.73_m2} - PINF [facility] Comment on above: Estimated Glomerular Filtration [...] mg/dL 74 - 99 mg/dL [facility] Comment on above: The [place] Diabete s Association (ADA) provides guidance for [...] Standards of Medical Care in Diabetes 2016, [place] Diabetes Association. Diabetes Care. 2016.39(Suppl 1). Interpretation and review of laboratory results Abnormal [facility] Potassium [Moles/Vol] 4.0 mmol/L 3.7 - 5.1 mmol/L [facility] Protein [Mass/Vol] 6.6 g/dL 6.3 - 8.0 g/dL [facility] Sodium [Moles/Vol] 135 mmol/L Low 136 - 144 mmol/L [facility] Urea nitrogen [Mass/Vol] 19 mg/dL 7 - 21 mg/dL [facility] CBC W Auto Differential pane l (Bld)on 10-22-2023 Basophils (Bld) [#/Vol] 0.05 10*3/uL [facility] Basophils/100 WBC (Bld) 1.3 % [facility] Differential cell count method Nom (Bld) Auto [facility] Eosinophils (Bld) [#/Vol] 0.24 10*3/uL [facility] Eosinophils/100 WBC (Bld) 6.2 % [facility] Erythrocyte distribution width (RBC) [Ratio] 12.3 % 11.5 - 15.0 % [facility] Hematocrit (Bld) [Volume fraction] 35.2 % Low 36.0 - 46.0 % [facility] Hemoglobin (Bld) [Mass/Vol] 11.9 g/dL 11.5 - 15.5 g/dL [facility] Immature granulocytes (Bld) [#/Vol] NINF [facility] Immature granulocytes/100 WBC (Bld) 0.3 % [facility] Interpretation and review of laboratory results Abnormal [facility] Lymphocytes (Bld) [#/Vol] 1.01 10*3/uL [facility] Lymphocytes/100 WBC (Bld) 26.0 % [facility] MCH (RBC) [Entitic mass] 29.8 pg 26.0 - 34.0 pg [facility] MCHC (RBC) [Mass/Vol] 33.8 g/dL 30.5 - 36.0 g/dL [facility] MCV (RBC) [Entitic vol] 88.0 fL 80.0 - 100.0 fL [facility] Monocytes (Bld) [#/Vol] 0.41 10*3/uL NINF [facility] Monocytes/100 WBC (Bld) 10.5 % [facility] Neutrophils (Bld) [#/Vol] 2.17 10*3/uL [facility] Neutrophils/100 WBC (Bld) 55.7 % [facility] Nucleated RBC (Bld) [#/Vol] NINF [facility] Nucleated RBC/100 WBC (Bld) [Ratio] 0.0 % /100 WBC [facility] Platelet mean volume (Bld) [Entitic vol] 8.5 fL Low 9.0 - 12.7 fL [facility] Platelets (Bld) [#/Vol] 267 10*3/uL [facility] RBC (Bld) [#/Vol] 4.00 10*6/uL 3.90 - 5.20 m/uL [facility] WBC (Bld) [#/Vol] 3.89 10*3/uL [facility] Comprehensive metabolic 2000 panelOrdered By: Siri Harris on 10-22-2023 Albumin [Mass/Vol] 4.3 g/dL 3.9 - 4.9 g/dL [facility] ALP [Catalytic activity/Vol] 90 U/L 34 - 123 U/L [facility] ALT [Catalytic activity/Vol] 10 U/L 7 - 38 U/L [facility] Anion gap [Moles/Vol] 11 mmol/L 8 - 15 mmol/L [facility] AST [Catalytic activity/Vol] 16 U/L 13 - 35 U/L [facility] Bilirubin [Mass/Vol] 0.3 mg/dL 0.2 - 1 .3 mg/dL [facility] Calcium [Mass/Vol] 9.6 mg/dL 8.5 - 10. 2 mg/dL [facility] Chloride [Moles/Vol] 97 mmol/L Low 98 - 10 7 mmol/L [facility] CO2 [Moles/Vol] 27 mmol/L 22 - 30 mmol/L [facility] Creatinine [Mass/Vol] 0.71 mg/dL 0.58 - 0.96 mg/dL [facility] GFR/1.73 sq M.predicted among non-blacks MDRD (S/P/Bld) [Vol rate/Area] 95 mL/min/{1.73_m2} - PINF [facility] Comment on above: Estimated Glomerular Filtration [...] High 74 - 99 mg/dL [facility] Comment on above: The [place] Diabete s Association (ADA) provides guidance for [...] Standards of Medical Care in Diabetes 2016, [place] Diabetes Association. Diabetes Care. 2016.39(Suppl 1). Interpretation and review of laboratory results Abnormal [facility] Potassium [Moles/Vol] 4.0 mmol/L 3.7 - 5.1 mmol/L [facility] Protein [Mass/Vol] 6.6 g/dL 6.3 - 8.0 g/dL [facility] Sodium [Moles/Vol] 135 mmol/L Low 136 - 144 mmol/L [facility] Urea nitrogen [Mass/Vol] 16 mg/dL 7 - 21 mg/dL [facility] Final Surgical Pathology Rep gretchen 10-04-2023 Final Surgical Pathology Report . Pathology Reports Accession: Collected Date/Time: Received Date/Time: Pathologist: [id number] 10/02/2023 11:56 EDT 10/02/2023 12:48 EDT MD [...] Reports Accession: Collected Date/Time: Received Date/Time: Pathologist: [id number] 10/02/2023 11:56 EDT 10/02/2023 12:48 JELANIT MD [...] Reports Accession: Collected Date/Time: Received Date/Time: Pathologist: [id number] 10/02/2023 11:56 EDT 10/02/2023 12:48 EDT MD MARY TOWNSEND INTRAOPERATIVE CONSULTATION: B FS: NEGATIVE. C FS: NEGATIVE. D FS: NEGATIVE. E FS: NEGATIVE. COMMENTS: NEOADJUVANT. performed by Laith Townsend M.D. GROSS DESCRIPTION: All parts labelled with patient name and [id number] (more content not included)... Normal [facility]) Consultation Reporton 2023 Consultation Report . 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 SUPPLIED ER, [place] AND HER2/PATRICIA SLIDES ARE ALL NEGATIVE (TRIPLE NEGATIVE). I AM IN AGREEMENT WITH THE REFERRING PATHOLOGIST CLINICAL INFORMATION: . Preoperative diagnosis: _ Postoperative diagnosis: _ SPECIMEN: LEFT AXILLA MASS BIOPSY GROSS DESCRIPTION: RECEIVED FROM [facility] ARE 18 GLASS SLIDES LABELED PIEDAD CARRIE BrandeeAlfie [id number]. Performed by MARTHA SALTER MICROSCOPIC DESCRIPTION: SLIDES REVIEWED. Electronically Signed by Pathology Report verified by [facility] MARTHA SALTER Sign out Date: 10/03/2023 15:45 Performing Lab: [address] Pathology Dept Disclaimer If ancillary studies were utilized, the following Laboratory Developed Test (LDT) disclaimer will apply: Under CLIA requirements, [facility] Pathology Laboratory is qualified to perform high complexity testing. For all ancillary stains, positive and negative controls stain appropriately. Performance characteristics of immunohistochemical and chromogenic in-situ hybridization tests have been determined by [facility] Laboratory. These tests are used for clinical purposes, They should not be regarded as investigational or for research. Normal [facility] ([place]) [place] BIOPSY ORon 10-03-2023 MA BIOPSY OR ORIGINAL FROM: [place] [address] PROCEDURE FOR: CARRIE HERBERT [address] [place] [address] Home: PID#: [id number] Exam#: [id number] : 1960 Age: 63 TO: DEBBIE MERINO MD [address] [place], [place] [address] Fax: NO FAX EXAMINATION: SPECIMEN RADIOGRAPH 10/03/2023 12:42 pm COMPARISON: September 23, 2023, July 17, 2023, April 24, 2023 HISTORY: Surgical specimen radiograph. FINDINGS: A surgical specimen was imaged using uni-planar radiograph specimen imaging for the area of concern located in the left axilla. This was described on prior exams. The specimen includes calcifications, mass, biopsy clip, and a GRISEL patrol police sergeant radar reflector. Please note that the mammograms [...] CLINICAL: POST BIOPSY SPECIMEN OF THE AXILLA. Apartment Leasing Specialist: MARVA Oconnell [facility] ([place] BIOPSY OR ORIGINAL FROM: [facility] [address] [place] [address] PROCEDURE FOR: CARRIE HERBERT [facility] [place] [address] Home: PID#: [id number] Exam#: [id number] : 1960 Age: 63 TO: DEBBIE MERINO MD [address] [place] [address] Fax: NO FAX EXAMINATION: SPECIMEN RADIOGRAPH 10/02/2023 [...] depth, the biopsy clip, and the GRISEL patrol police sergeant radar reflector. IMPRESSION: Specimen radiograph as above. [...] CLINICAL: POST BIOPSY SPECIMEN OF THE BREAST. Apartment Leasing Specialist: MARVA Oconnell [facility] ([place] INJECTION SENTINEL NODEon 10-02-2023 NM INJECTION SENTINEL NODE ORIGINAL EXAMINATION: SENTINEL NODE 10/02/2023 8:40 am TECHNIQUE: 569 and 591 microcuries of Tc99 Lymphoseek was provided to DEBBIE MERINO for sentinel lymph node localization and injected in the left breast at 8:15 a.m. by Brandon Carmichael Patient was then taken to the OR for probe guided lymph node localization. HISTORY: [place] node localization for surgery. Breast cancer left [...] 10/02/2023 8:54:44 AM Ordering Provider: DEBBIE Oconnell [facility] ([place]) .Auto Diffon 09-23-2023 Basophil, Absolute 0.0 10 3/mcL Normal 0.0-0.3 [facility] ([place]) Comment on above: Performed By: #### G FR, ANEU, CBC, ADIFF, BMP #### [address] [address] Basophils/100 WBC (Bld) 1.2 % Normal 0.0-2.5 [facility] ([place]) Comment on above: Performed By: #### G FR, ANEU, CBC, ADIFF, BMP #### [address] [address] Eosinophil, Absolute 0.2 10 3/mcL Normal 0.0-0.7 [facility] ([place]) Comment on above: Performed By: #### G FR, ANEU, CBC, ADIFF, BMP #### [address] [address] Eosinophils/100 WBC (Bld) 5.4 % Normal 0.0-6.0 [facility] ([place]) Comment on above: Performed By: #### G FR, ANEU, CBC, ADIFF, BMP #### [address] [address] Lymphocyte, Absolute 1.1 10 3/mcL Normal 0.9-4.3 [facility] ([place]) Comment on above: Performed By: #### G FR, ANEU, CBC, ADIFF, BMP #### [address] [address] Lymphocytes/100 WBC (Bld) 26.0 % Normal 20.0-40.0 [facility] ([place]) Comment on above: Performed By: #### G FR, ANEU, CBC, ADIFF, BMP #### [address] [address] Monocyte, Absolute 0.4 10 3/mcL Normal 0.1-1.4 [facility] ([place]) Comment on above: Performed By: #### G FR, ANEU, CBC, ADIFF, BMP #### [place] [address] [place] [address] Monocytes/100 WBC (Bld) 9.9 % Normal 2.0-13.0 [facility] ([place]) Comment on above: Performed By: #### G FR, ANEU, CBC, ADIFF, BMP #### [address] [address] Neutrophils/100 WBC (Bld) 57.5 % Normal 50.0-75.0 [facility] ([place]) Comment on above: Performed By: #### G FR, ANEU, CBC, ADIFF, BMP #### [address] [address] .GFRon 09-23-2023 GFR >60 Normal [facility] ([place]) Comment on above: Result Comment: GFR Population [...] #### G FR, ANEU, CBC, ADIFF, BMP ####[address] [address] GFR Non- >60 Normal [facility] ([place]) Comment on above: Result Comment: GFR Population [...] #### G FR, ANEU, CBC, ADIFF, BMP ####[address] [address] .NEUABSon 09-23-2023 Neutrophil, Absolute 2.3 10 3/mcL Normal 2.3-8.1 [facility] ([place]) Comment on above: Performed By: #### G FR, ANEU, CBC, ADIFF, BMP ####[place] [address] BMPon 09-23-2023 BUN/Creatinine Ratio 21.7 ratio Normal 10.0-22.0 [facility] ([place]) Comment on above: Performed By: #### G FR, ANEU, CBC, ADIFF, BMP ####[place] [address] Calcium [Mass/Vol] 9.6 mg/dL Normal 8.7-10.4 [facility] ([place]) Comment on above: Performed By: #### Zurdo FR, ANEU, CBC, ADIFF, BMP ####[place] [address] Chloride [Moles/Vol] 105 mmol/L Normal 98-110 [facility] ([place] Comment on above: Performed By: #### G FR, ANEU, CBC, ADIFF, BMP ####[place] [address] CO2 [Moles/Vol] 31 mmol/L Normal 22-32 [facility] ([place]) Comment on above: Performed By: #### G FR, ANEU, CBC, ADIFF, BMP ####[place] [address] Creatinine [Mass/Vol] 0.60 mg/dL Normal 0.50-1.20 [facility] ([place]) Comment on above: Performed By: #### G FR, ANEU, CBC, ADIFF, BMP ####[place] [address] Electrolyte Balance 4.0 mEq/L Normal 4.0-15.0 [facility] ([place]) Comment on above: Performed By: #### G FR, ANEU, CBC, ADIFF, BMP ####[place] [address] Glucose [Mass/Vol] 101 mg/dL Normal 82-115 [facility] ([place]) Comment on above: Performed By: #### G FR, ANEU, CBC, ADIFF, BMP ####[place] [address] Potassium [Moles/Vol] 4.2 mmol/L Normal 3.5-5.0 [facility] ([place]) Comment on above: Performed By: #### G FR, ANEU, CBC, ADIFF, BMP ####[place] [address] Sodium [Moles/Vol] 140 mmol/L Normal 136-145 [facility] ([place]) Comment on above: Performed By: #### G FR, ANEU, CBC, ADIFF, BMP ####[place] [address] Urea nitrogen [Mass/Vol] 13.0 mg/dL Normal 8.0-22.0 [facility] ([place]) Comment on above: Performed By: #### G FR, ANEU, CBC, ADIFF, BMP ####[place] [address] CBCon 09-23-2023 Erythrocyte distribution width (RBC) [Ratio] 13.9 % Normal 11.5-15.5 [facility] ([place]) Comment on above: Performed By: #### G FR, ANEU, CBC, ADIFF, BMP #### [place] [address] Hematocrit (Bld) [Volume fraction] 36.7 % Normal 34.0-46.0 [facility] ([place] Comment on above: Performed By: #### G FR, ANEU, CBC, ADIFF, BMP #### [place] [address] Hgb 12.6 G/dL Normal 12.0-16.0 [facility] ([place] Comment on above: Performed By: #### G FR, ANEU, CBC, ADIFF, BMP #### [place] [address] MCH (RBC) [Entitic mass] 31.2 pg Normal 27.0-33.0 [facility] ([place] Comment on above: Performed By: #### Zurdo FR, ANEU, CBC, ADIFF, BMP #### [place] [address] MCHC 34.4 G/dL Normal 32.0-36.0 [facility] ([place] Comment on above: Performed By: #### G FR, ANEU, CBC, ADIFF, BMP #### [place] [address] MCV (RBC) [Entitic vol] 90.6 fL Normal 80.0-99.0 [facility] ([place] Comment on above: Performed By: #### Zurdo FR, ANEU, CBC, ADIFF, BMP #### [place] [address] Platelet 287 10 3/mcL Normal 150-450 [facility] ([place] Comment on above: Performed By: #### G FR, ANEU, CBC, ADIFF, BMP #### [place] [address] Platelet mean volume (Bld) [Entitic vol] 6.8 fL Normal 6.6-10.5 [facility] ([place] Comment on above: Performed By: #### G FR, ANEU, CBC, ADIFF, BMP #### [place] [address] RBC 4.05 10 6/mcL Low 4.10-5.30 [facility] ([place] Comment on above: Performed By: #### G FR, ANEU, CBC, ADIFF, BMP #### [place] [address] WBC 4.0 10 3/mcL Low 4.5-10.8 [facility] ([place] Comment on above: Performed By: #### G FR, ANEU, CBC, ADIFF, BMP #### [facility] [address] [place] [address] LABORATORYOrdered By: SYSTEM SYSTEM on 09-23-2023 Basophils (Bld) [#/Vol] 0.0 103/mcL Normal 0.0 - 0.3 10^3/mcL [facility] Workflow SS Basophils/100 WBC (Bld) 1.2 % Normal 0.0 - 2.5 % [facility] Workflow SS Calcium [Mass/Vol] 9.6 mg/dL Normal 8.7 - 10. 4 mg/dL ADM SS Chloride [Moles/Vol] 105 mmol/L Normal 98 - 11 0 mEq/L ADM SS CO2 [Moles/Vol] 31 mmol/L Normal 22 - 32 mEq/L ADM SS Creatinine [Mass/Vol] 0.60 mg/dL Normal 0.50 - 1.20 mg/dL AH ADM SS Electrolyte Balance 4.0 mEq/L Normal [...] 36.7 % Normal 34.0 - 46.0 % AH Workflow SS Hemoglobin (Bld) [Mass/Vol] 12.6 G/dL [...] 0.4 103/mcL Normal 0.1 - 1.4 10^3/mcL Workflow [facility] Monocytes/100 WBC (Bld) 9.9 % Normal 2.0 - 13.0 % [facility] Workflow SS Neutrophils (Bld) [#/Vol] 2.3 103/mcL Normal 2.3 - 8.1 10^3/mcL [facility] Workflow SS Neutrophils/100 WBC (Bld) 57.5 % Normal 50.0 - 75.0 % AH Workflow SS Platelet mean volume (Bld) [Entitic vol] 6.8 fL Normal 6.6 - 10.5 fL Workflow SS Platelets (Bld) [#/Vol] 287 103/mcL [...] 21.7 ratio Normal 10.0 - 22.0 ratio ADM SS WBC (Bld) [#/Vol] 4.0 103/mcL Low 4.5 - 10.8 10^3/mcL Workflow SS MA BREAST NDL LOC PLACEMENT LEFT 1ST LESIONon 09-23-2023 MA BREAST NDL LOC PLACEMENT LEFT 1ST LESION ORIGINAL FROM: [place] [address] PROCEDURE FOR: CARRIE HERBERT Formerly [facility] [place] [address] Home: PID#: [id number] Exam#: [id number] : 1960 Age: 63 TO: DEBBIE MERINO MD [address] [place] [address] Fax: NO FAX EXAMINATION: MAMMOGRAPHIC GUIDED INFRARED [...] 09/23/2023 1:20:55 PM Ordering Provider: DEBBIE MERINO Apartment Leasing Specialist: SHERRON HARRIS RT(R)(M) Normal [facility] ([place]) US BREAST NDL LOC LEFT 1ST L ESIONon 09-23-2023 US BREAST NDL LOC LEFT 1ST LESION ORIGINAL FROM: [facility] [address] [place] [id number] PROCEDURE FOR: CARRIE HERBERT [address] [place] [address] Home: PID#: [id number] Exam#: [id number] : 1960 Age: 63 TO: DEBBIE MERINO MD [address] [place] [id number] Fax: NO FAX EXAMINATION: ULTRASOUND GUIDED INFRARED [...] MERINO CLINICAL: LEFT AXILLA RADRAR REFLECTOR PLACED. Apartment Leasing Specialist: DEMI CALDWELL RT,[facility] ([place]) US BREAST RIGHT LIMITEDon US BREAST RIGHT LIMITED ORIGINAL FROM: [address] [address] PROCEDURE FOR: CARRIE HERBERT Formerly [facility] [place] [address] Home: PID#: [id number] Exam#: [id number] : 1960 Age: 63 TO: DEBBIE MERINO MD [address] [place] [id number] Fax: NO FAX EXAMINATION: ULTRASOUND OF THE [...] CLINICAL: 6 MONTHS FOLLOW-UP 1:00 PREVIOUS BIOPSY. Apartment Leasing Specialist: DEMI CALDWELL RT,[facility] letter sent: Probably Benign BI-RADS 3 Ultrasound BI-RADS: 3 Probably benign Normal [facility] ([place]) [facility] Telephone (GENSF) CARRIE HERBERT ([id number]) 1960 F Date Time Provider Department 09/05/23 KEILA CHRISTINA GENSF During your visit today, we recorded the following information about you: Keila Christina DO 09/05/2023 11:20 AM Signed Called to follow up regarding scheduling surgery. She spoke with a [facility] financial member last week. Unfortunately her insurance does not cover care at [facility]. She was given the cost for out of pocket surgery. She does not wish to pay this. She was given the contact information for Dr. Debbie Merino who is a breast surgeon at [facility]. All questions were answered. Keila Christina DO [...] Status:Closed by KEILA CHRISTINA on 09/05/23 Normal [facility] CBC W Auto Differential pane l (Bld)on 08-29-2023 Basophils (Bld) [#/Vol] 0.06 10*3/uL [facility] Basophils/100 WBC (Bld) 1.2 % [facility] Differential cell count method Nom (Bld) Auto [facility] Eosinophils (Bld) [#/Vol] 0.32 10*3/uL [facility] Eosinophils/100 WBC (Bld) 6.5 % [facility] Erythrocyte distribution width (RBC) [Ratio] 13.5 % 11.5 - 15.0 % [facility] Hematocrit (Bld) [Volume fraction] 34.2 % Low 36.0 - 46.0 % [facility] Hemoglobin (Bld) [Mass/Vol] 11.6 g/dL 11.5 - 15.5 g/dL [facility] Immature granulocytes (Bld) [#/Vol] [facility] Immature granulocytes/100 WBC (Bld) 0.2 % [facility] Interpretation and review of laboratory results Abnormal [facility] Lymphocytes (Bld) [#/Vol] 1.45 10*3/uL [facility] Lymphocytes/100 WBC (Bld) 29.7 % [facility] MCH (RBC) [Entitic mass] 31.4 pg 26.0 - 34.0 pg [facility] MCHC (RBC) [Mass/Vol] 33.9 g/dL 30.5 - 36.0 g/dL [facility] MCV (RBC) [Entitic vol] 92.4 fL 80.0 - 100.0 fL [facility] Monocytes (Bld) [#/Vol] 0.53 10*3/uL [facility] Monocytes/100 WBC (Bld) 10.8 % [facility] Neutrophils (Bld) [#/Vol] 2.52 10*3/uL [facility] Neutrophils/100 WBC (Bld) 51.6 % [facility] Nucleated RBC (Bld) [#/Vol] [facility] Nucleated RBC/100 WBC (Bld) [Ratio] 0.0 % /100 WBC [facility] Platelet mean volume (Bld) [Entitic vol] 8.8 fL Low 9.0 - 12.7 fL [facility] Platelets (Bld) [#/Vol] 236 10*3/uL [facility] RBC (Bld) [#/Vol] 3.70 10*6/uL Low 3.90 - 5.20 m/uL [facility] WBC (Bld) [#/Vol] 4.89 10*3/uL [facility] CORTISOL BLDon 08-29-2023 Cortisol [Mass/Vol] 7.0 ug/dL 4.8 - 19 .5 ug/dL [facility] Comment on above: Provided reference roxana snyder is from 6-10 AM sample collection time. Cortisol Reference Range: 6-10 AM = 4.8-19.5 ug/dL, 4-8 PM = 2.5-11.9 ug/dL Comprehensive metabolic 2000 panelOrdered By: Kat Araujo on 08-29-2023 Albumin [Mass/Vol] 4.4 g/dL 3.9 - 4.9 g/dL [facility] ALP [Catalytic activity/Vol] 82 U/L 34 - 123 U/L [facility] ALT [Catalytic activity/Vol] 11 U/L 7 - 38 U/L [facility] Anion gap [Moles/Vol] 9 mmol/L 8 - 15 mmol/L [facility] AST [Catalytic activity/Vol] 19 U/L 13 - 35 U/L [facility] Bilirubin [Mass/Vol] 0.2 mg/dL 0.2 - 1 .3 mg/dL [facility] Calcium [Mass/Vol] 9.9 mg/dL 8.5 - 10. 2 mg/dL [facility] Chloride [Moles/Vol] 99 mmol/L 98 - 10 7 mmol/L [facility] CO2 [Moles/Vol] 27 mmol/L 22 - 30 mmol/L [facility] Creatinine [Mass/Vol] 0.75 mg/dL 0.58 - 0.96 mg/dL [facility] GFR/1.73 sq M.predicted among non-blacks MDRD (S/P/Bld) [Vol rate/Area] 89 mL/min/{1.73_m2} - PINF [facility] Comment on above: Estimated Glomerular Filtration [...] mg/dL 74 - 99 mg/dL [facility] Comment on above: The [place] Diabete s Association (ADA) provides guidance for [...] Standards of Medical Care in Diabetes 2016, [place] Diabetes Association. Diabetes Care. 2016.39(Suppl 1). Interpretation and review of laboratory results Abnormal [facility] Potassium [Moles/Vol] 4.2 mmol/L 3.7 - 5.1 mmol/L [facility] Protein [Mass/Vol] 6.9 g/dL 6.3 - 8.0 g/dL [facility] Sodium [Moles/Vol] 135 mmol/L Low 136 - 144 mmol/L [facility] Urea nitrogen [Mass/Vol] 18 mg/dL 7 - 21 mg/dL [facility] No Panel Informationon 08-28 Interpretation and review of laboratory results Normal [facility] T4 FREE/FREE THYROXon 2023 Free T4 [Mass/Vol] 1.1 ng/dL 0.9 - 1.7 ng/dL [facility] TSH BLDon 08-29-2023 TSH Qn 1.350 m[IU]/L [facility] DBT Breast - bilateral diagn ostic for implanton 08-20-2023 * * *Final Report* * * DATE OF EXAM: Aug 20 2023 3:02PM MADDY 0627 - RADHA DIAG W GEO TARAH / PROCEDURE REASON: multiple diagnoses * * * * Physician Interpretation * * * * RESULT: #[id number] - RADHA AMEEG W GEO TARAH #[id number] - RADHA US BREAST LTD LT BILATERAL [...] made to exams dated: 04/24/2023 mammogram - [facility], 04/17/2023 mammogram - [facility], 04/17/2023 mammogram - [facility], and 10/09/2021 mammogram - [facility]. The breasts are almost entirely fatty. There [...] in either breast. DIVISION OF RADIOLOGY Provider, [facility] - 08/20/2023 * * *Final Report* * * DATE OF EXAM: Aug 20 2023 3:02PM [facility] 06[facility] - [facility] [employer] TARAH / PROCEDURE REASON: multiple diagnoses * * * * Physician Interpretation * * * * RESULT: #[id number] - RADHA [employer] W GEO TARAH #[id number] - RADHA [employer] BREAST LTD LT BILATERAL DIGITAL DIAGNOSTIC MAMMOGRAM [...] made to exams dated: 04/24/2023 mammogram - [facility], 04/17/2023 mammogram - [facility], 04/17/2023 [facility] - [facility], [facility] The breasts are almost entirely fatty. There [...] made to exams dated: 04/24/2023 mammogram - [facility], 04/17/2023 mammogram - [facility], 04/17/2023 mammogram - [facility], and 10/09/2021 mammogram - [facility]. Color flow and real-time ultrasound of the [...] Medicine, and Medical/Surgical Oncology, the [facility] has carefully reviewed the data and [...] their providers when to stop screening mammograms. Apartment Leasing Specialist(s): Shweta Miranda RT(R)(M), [facility]; Joanne Jean Baptiste, [facility] OVERALL STUDY BIRADS: 6 Known biopsy proven malignancy Architectural Inspector: Nathanael Transcribe Date/Time: Aug 20 2023 2:26P Dictated by: SHERRY RUIZ MD This examination was interpreted and the report reviewed and electronically signed by: SHERRY RUIZ MD on Aug 20 2023 3:16PM [facility] No Panel Informationon 08-19 IMPRESSION: BENIGN F INDING There is no mammographic evidence of malignancy. LIMITED ULTRASOUND OF LEFT BREAST AND AXILLA: 08/20/2023 RESULT: Comparison is made to exams dated: 04/24/2023 mammogram - [facility], 04/17/2023 mammogram - [facility], 04/17/2023 mammogram - [facility], and 10/09/2021 mammogram - [facility]. Color flow and real-time ultrasound of the [...] Medicine, and Medical/Surgical Oncology, the [facility] has carefully reviewed the data and [...] their providers when to stop screening mammograms. Apartment Leasing Specialist(s): Shweta Miranda RT(R)(M), [facility]; Joanne Jean Baptiste, [facility] OVERALL STUDY BIRADS: 6 Known biopsy proven malignancy Architectural Inspector: Nathanael Transcribe Date/Time: Aug 20 2023 2:26P Dictated by: SHERRY RUIZ MD This examination was interpreted and the report reviewed and electronically signed by: SHERRY RUIZ MD on Aug 20 2023 3:16PM [facility] DIVISION OF RADIOLOGY Radiology Study observation (narrative) [facility] No Panel InformationOrdered By: [facility]cf Provider on 08-20-2023 [facility] US Breast - left limitedon 0 08-20-2023 * * *Final Report* * * DATE OF EXAM: Aug 20 2023 3:06PM VERONICA 0593 - RADHA US BREAST LTD LT / PROCEDURE REASON: multiple diagnoses * * * * Physician Interpretation * * * * #[id number] - [facility] DONALD RASCON #[id number] - [facility] [employer] BREAST LTD LT BILATERAL DIGITAL DIAGNOSTIC MAMMOGRAM [...] made to exams dated: 04/24/2023 mammogram - [facility], 04/17/2023 mammogram - [facility], 04/17/2023 mammogram - [facility], [facility] The breasts are almost entirely fatty. There [...] in either breast. DIVISION OF RADIOLOGY Provider, [facility] - 08/20/2023 * * *Final Report* * * DATE OF EXAM: Aug 20 2023 3:06PM [facility] 0593 - [facility] [employer] BREAST LTD LT / PROCEDURE REASON: multiple diagnoses * * * * Physician Interpretation * * * * #[id number] - [facility] AMEE W GEO TARAH #[id number] - [facility] [employer] BREAST LTD LT BILATERAL DIGITAL DIAGNOSTIC MAMMOGRAM [...] made to exams dated: 04/24/2023 mammogram - [facility], 04/17/2023 mammogram - [facility], 04/17/2023 mammogram - [facility], and 10/09/2021 mammogram - [facility]. The breasts are almost entirely fatty. There [...] made to exams dated: 04/24/2023 mammogram - [facility], 04/17/2023 mammogram - [facility], 04/17/2023 mammogram - [facility], and 10/09/2021 mammogram - [facility]. Color flow and real-time ultrasound of the [...] Medicine, and Medical/Surgical Oncology, the [facility] has carefully reviewed the data and [...] their providers when to stop screening mammograms. Apartment Leasing Specialist(s): Shweta Miranda, RT(R)(M), [facility]; Joanne Jean Baptiste, [facility] OVERALL STUDY BIRADS: 6 Known biopsy proven malignancy Architectural Inspector: Nathanael Transcribe Date/Time: Aug 20 2023 2:26P Dictated by : SHERRY RUIZ MD This examination was interpreted and the report reviewed and electronically signed by: SHERRY RUIZ MD on Aug 20 2023 3:16PM EST [facility] CBC W Auto Differential pane l (Bld)on 08-08-2023 Basophils (Bld) [#/Vol] 0.05 10*3/uL [facility] Basophils/100 WBC (Bld) 2.0 % [facility] Differential cell count method Nom (Bld) Auto [facility] Eosinophils (Bld) [#/Vol] 0.20 10*3/uL [facility] Eosinophils/100 WBC (Bld) 8.1 % [facility] Erythrocyte distribution width (RBC) [Ratio] 15.9 % High 11.5 - 15.0 % [facility] Hematocrit (Bld) [Volume fraction] 32.2 % Low 36.0 - 46.0 % [facility] Hemoglobin (Bld) [Mass/Vol] 10.9 g/dL Low 11.5 - 15.5 g/dL [facility] Immature granul[facility] (Bld) [#/Vol] [facility] Immature granulocytes/100 WBC (Bld) 0.0 % [facility] Interpretation and review of laboratory results Abnormal [facility] Lymphocytes (Bld) [#/Vol] 0.76 10*3/uL Low [facility] Lymphocytes/100 WBC (Bld) 30.9 % [facility] MCH (RBC) [Entitic mass] 31.9 pg 26.0 - 34.0 pg [facility] MCHC (RBC) [Mass/Vol] 33.9 g/dL 30.5 - 36.0 g/dL [facility] MCV (RBC) [Entitic vol] 94.2 fL 80.0 - 100.0 fL [facility] Monocytes (Bld) [#/Vol] 0.39 10*3/uL NINF [facility] Monocytes/100 WBC (Bld) 15.9 % [facility] Neutrophils (Bld) [#/Vol] 1.06 10*3/uL Low [facility] Neutrophils/100 WBC (Bld) 43.1 % [facility] Nucleated RBC (Bld) [#/Vol] NINF [facility] Nucleated RBC/100 WBC (Bld) [Ratio] 0.0 % /100 WBC [facility] Platelet mean volume (Bld) [Entitic vol] 8.8 fL Low 9.0 - 12.7 fL [facility] Platelets (Bld) [#/Vol] 218 10*3/uL [facility] RBC (Bld) [#/Vol] 3.42 10*6/uL Low 3.90 - 5.20 m/uL [facility] WBC (Bld) [#/Vol] 2.46 10*3/uL Low [facility] CORTISOL BLDon 08-08-2023 Cortisol [Mass/Vol] 9.0 ug/dL 4.8 - 19 .5 ug/dL [facility] Comment on above: Provided reference r claudio is from 6-10 AM sample collection time. Cortisol Reference Range: 6-10 AM = 4.8-19.5 ug/dL, 4-8 PM = 2.5-11.9 ug/dL Comprehensive metabolic 2000 panelon 08-08-2023 Albumin [Mass/Vol] 4.3 g/dL 3.9 - 4.9 g/dL [facility] ALP [Catalytic activity/Vol] 78 U/L 34 - 123 U/L [facility] ALT With P-5'-P [Catalytic activity/Vol] 13 U/L 7 - 38 U/L [facility] Anion gap [Moles/Vol] 8 mmol/L Low 9 - 18 mmol/L [facility] AST With P-5'-P [Catalytic activity/Vol] 23 U/L 13 - 35 U/L [facility] Bilirubin [Mass/Vol] 0.3 mg/dL 0.2 - 1 .3 mg/dL [facility] Calcium [Mass/Vol] 9.1 mg/dL 8.5 - 10. 2 mg/dL [facility] Chloride [Moles/Vol] 101 mmol/L 97 - 10 5 mmol/L [facility] CO2 [Moles/Vol] 27 mmol/L 22 - 30 mmol/L [facility] Creatinine [Mass/Vol] 0.64 mg/dL 0.58 - 0.96 mg/dL [facility] GFR/1.73 sq M.predicted among non-blacks MDRD (S/P/Bld) [Vol rate/Area] 99 mL/min/{1.73_m2} - PINF [facility] Comment on above: Estimated Glomerular Filtration [...] mg/dL 74 - 99 mg/dL [facility] Comment on above: The [place] Diabete s Association (ADA) provides guidance for [...] Standards of Medical Care in Diabetes 2016, [place] Diabetes Association. Diabetes Care. 2016.39(Suppl 1). Interpretation and review of laboratory results Abnormal [facility] Potassium [Moles/Vol] 4.4 mmol/L 3.7 - 5.1 mmol/L [facility] Protein [Mass/Vol] 6.7 g/dL 6.3 - 8.0 g/dL [facility] Sodium [Moles/Vol] 136 mmol/L 136 - 144 mmol/L [facility] Urea nitrogen [Mass/Vol] 15 mg/dL 7 - 21 mg/dL [facility] No Panel Informationon 08-07 Interpretation and review of laboratory results Normal [facility] T4 FREE/FREE THYROXon 2023 Free T4 [Mass/Vol] 1.0 ng/dL 0.9 - 1.7 ng/dL [facility] TSH BLDon 08-08-2023 TSH Qn 1.150 m[IU]/L [facility] CBC W Auto Differential pane l (Bld)on 07-18-2023 Anisocytosis Ql (Bld) Present [facility] Basophils (Bld) [#/Vol] 0.04 10*3/uL [facility] Basophils/100 WBC (Bld) 2.0 % [facility] Differential cell count method Nom (Bld) Manual [facility] Eosinophils (Bld) [#/Vol] 0.04 10*3/uL [facility] Eosinophils/100 WBC (Bld) 2.0 % [facility] Erythrocyte distribution width (RBC) [Ratio] 17.6 % High 11.5 - 15.0 % [facility] Hematocrit (Bld) [Volume fraction] 27.4 % Low 36.0 - 46.0 % [facility] Hemoglobin (Bld) [Mass/Vol] 9.1 g/dL Low 11.5 - 15.5 g/dL [facility] Interpretation and review of laboratory results Abnormal [facility] Lymphocytes (Bld) [#/Vol] 0.59 10*3/uL Low [facility] Lymphocytes/100 WBC (Bld) 30.0 % [facility] MCH (RBC) [Entitic mass] 31.5 pg 26.0 - 34.0 pg [facility] MCHC (RBC) [Mass/Vol] 33.2 g/dL 30.5 - 36.0 g/dL [facility] MCV (RBC) [Entitic vol] 94.8 fL 80.0 - 100.0 fL [facility] Monocytes (Bld) [#/Vol] 0.18 10*3/uL [facility] Monocytes/100 WBC (Bld) 9.0 % [facility] Neutrophils (Bld) [#/Vol] 1.13 10*3/uL Low [facility] Neutrophils/100 WBC (Bld) 57.0 % [facility] Nucleated RBC (Bld) [#/Vol] NINF [facility] Nucleated RBC/100 WBC (Bld) [Ratio] 0.0 % /100 WBC [facility] Ovalocytes LM Ql (Bld) Few [facility] Platelet mean volume (Bld) [Entitic vol] 9.7 fL 9.0 - 12.7 fL [facility] Platelets (Bld) [#/Vol] 189 10*3/uL [facility] Comment on above: No clot detected. Platelets Estimate (Bld) [#/Vol] Adequate [facility] Polychromasia LM Ql (Bld) Slight [facility] RBC (Bld) [#/Vol] 2.89 10*6/uL Low 3.90 - 5.20 m/uL [facility] RBC Fragments Few Abnormal None Seen [facility] Red Cell Morph Reviewed: see result s of individual morphologies [facility] WBC (Bld) [#/Vol] 1.98 10*3/uL Low [facility] This is an appended report. These results have been appended to a previously verified report. [facility] CORTISOL BLDon 07-18-2023 Cortisol [Mass/Vol] 11.9 ug/dL 4.8 - 19 .5 ug/dL [facility] Comment on above: Provided reference roxana snyder is from 6-10 AM sample collection time. Cortisol Reference Range: 6-10 AM = 4.8-19.5 ug/dL, 4-8 PM = 2.5-11.9 ug/dL Comprehensive metabolic 2000 panelOrdered By: Kat Araujo on 07-18-2023 Albumin [Mass/Vol] 3.9 g/dL 3.9 - 4.9 g/dL [facility] ALP [Catalytic activity/Vol] 88 U/L 34 - 123 U/L [facility] ALT [Catalytic activity/Vol] 12 U/L 7 - 38 U/L [facility] Anion gap [Moles/Vol] 5 mmol/L Low 9 - 18 mmol/L [facility] AST [Catalytic activity/Vol] 16 U/L 13 - 35 U/L [facility] Bilirubin [Mass/Vol] 0.5 mg/dL 0.2 - 1 .3 mg/dL [facility] Calcium [Mass/Vol] 9.0 mg/dL 8.5 - 10. 2 mg/dL [facility] Chloride [Moles/Vol] 104 mmol/L 97 - 10 5 mmol/L [facility] CO2 [Moles/Vol] 29 mmol/L 22 - 30 mmol/L [facility] Creatinine [Mass/Vol] 0.62 mg/dL 0.58 - 0.96 mg/dL [facility] GFR/1.73 sq M.predicted among non-blacks MDRD (S/P/Bld) [Vol rate/Area] 100 mL/min/{1.73_m2} - PINF [facility] Comment on above: Estimated Glomerular Filtration [...] High 74 - 99 mg/dL [facility] Comment on above: The [place] Diabete s Association (ADA) provides guidance for [...] Standards of Medical Care in Diabetes 2016, [place] Diabetes Association. Diabetes Care. 2016.39(Suppl 1). Interpretation and review of laboratory results Abnormal [facility] Potassium [Moles/Vol] 3.9 mmol/L 3.7 - 5.1 mmol/L [facility] Protein [Mass/Vol] 6.2 g/dL Low 6.3 - 8.0 g/dL [facility] Sodium [Moles/Vol] 138 mmol/L 136 - 144 mmol/L [facility] Urea nitrogen [Mass/Vol] 8 mg/dL 7 - 21 mg/dL [facility] No Panel Informationon 07-17 Interpretation and review of laboratory results Normal [facility] T4 FREE/FREE THYROXon 2023 Free T4 [Mass/Vol] 1.3 ng/dL 0.9 - 1.7 ng/dL [facility] TSH BLDon 07-18-2023 TSH Qn 0.505 m[IU]/L [facility] MRI BREAST 3D POST PROCESSIN Mata 07-17-2023 MRI BREAST 3D POST PROCESSING * * *Final Report* * * DATE OF EXAM: Jul 17 2023 11:05AM [facility] 0788 - MRI BREAST 3D POST PROCESSING [...] this study. The examination was reviewed utilizing the grafter software with computer-determined curve analysis. FINDINGS: The [...] Consider correlation with bone scan. BI-RADS 6. Architectural Inspector: PSCB Transcribe Date/Time: Jul 17 2023 1:29P Dictated by : YAEL MARSHALL MD This examination was interpreted and the report reviewed and electronically signed by: YAEL MARSHALL MD on Jul 18 2023 12:52PM EST [id number] Normal [facility] MRI BREAST WO/W IVCON BILon 07-17-2023 MRI BREAST WO/W IVCON TARAH * * *Final Report* * * DATE OF EXAM: Jul 17 2023 11:05AM [facility] 0773 - MRI BREAST WO/W [...] this study. The examination was reviewed utilizing the grafter software with computer-determined curve analysis. FINDINGS: The [...] Consider correlation with bone scan. BI-RADS 6. Architectural Inspector: AMALIA Transcribe Date/Time: Jul 17 2023 1:29P Dictated by : YAEL MARSHALL MD This examination was interpreted and the report reviewed and electronically signed by: YAEL MARSHALL MD on Jul 18 2023 12:52PM EST [id number] Normal [facility] ACTH BLDon 07-12-2023 Corticotropin (P) [Mass/Vol] 8.4 pg/mL 7.2 - 63.3 pg/mL [facility] CBC W Auto Differential pane l (Bld)on 07-12-2023 Anisocytosis Ql (Bld) Present [facility] Basophils (Bld) [#/Vol] 0.13 10*3/uL High <0.11 k/uL [facility] Basophils/100 WBC (Bld) 2.0 % [facility] Differential cell count method Nom (Bld) Manual [facility] Eosinophils (Bld) [#/Vol] 0.13 10*3/uL <0.46 k/uL [facility] Eosinophils/100 WBC (Bld) 2.0 % [facility] Erythrocyte distribution width (RBC) [Ratio] 18.1 % High 11.5 - 15.0 % [facility] Hematocrit (Bld) [Volume fraction] 27.2 % Low 36.0 - 46.0 % [facility] Hemoglobin (Bld) [Mass/Vol] 9.0 g/dL Low 11.5 - 15.5 g/dL [facility] [facility] Lymphocytes (Bld) [#/Vol] 0.98 10*3/uL Low 1.00 - 4.00 k/uL [facility] Lymphocytes/100 WBC (Bld) 15.0 % [facility] MCH (RBC) [Entitic mass] 31.5 pg 26.0 - 34.0 pg [facility] MCHC (RBC) [Mass/Vol] 33.1 g/dL 30.5 - 36.0 g/dL [facility] MCV (RBC) [Entitic vol] 95.1 fL 80.0 - 100.0 fL [facility] Monocytes (Bld) [#/Vol] 0.91 10*3/uL High <0.87 k/uL [facility] Monocytes/100 WBC (Bld) 14.0 % [facility] Myelo % 1.0 % [facility] Neutrophils (Bld) [#/Vol] 4.31 10*3/uL 1.45 - 7.50 k/uL [facility] Neutrophils/100 WBC (Bld) 66.0 % [facility] Nucleated RBC (Bld) [#/Vol] <0.01 k/uL [facility] Nucleated RBC/100 WBC (Bld) [Ratio] 0.0 /100 WBC [facility] Ovalocytes LM Ql (Bld) Few [facility] Platelet mean volume (Bld) [Entitic vol] 9.6 fL 9.0 - 12.7 fL [facility] Platelets (Bld) [#/Vol] 283 10*3/uL 150 - 400 k/uL [facility] Platelets Estimate (Bld) [#/Vol] Adequate [facility] Polychromasia LM Ql (Bld) Slight [facility] RBC (Bld) [#/Vol] 2.86 10*6/uL Low 3.90 - 5.20 m/uL [facility] RBC Fragments Few Abnormal None Seen [facility] Red Cell Morph Reviewed: see result s of individual morphologies [facility] WBC (Bld) [#/Vol] 6.53 10*3/uL 3.70 - 11.00 k/uL [facility] WBC Left Shift Ql (Bld) Present [facility] CORTISOL Don 07-12-2023 Cortisol [Mass/Vol] 12.8 ug/dL 4.8 - 19 .5 ug/dL [facility] metabolic 2000 panelon 07-12-2023 Albumin [Mass/Vol] 3.9 g/dL 3.9 - 4.9 g/dL [facility] ALP [Catalytic activity/Vol] 99 U/L 34 - 123 U/L [facility] ALT [Catalytic activity/Vol] 18 U/L 7 - 38 U/L [facility] Anion gap [Moles/Vol] 6 mmol/L Low 9 - 18 mmol/L [facility] AST [Catalytic activity/Vol] 17 U/L 13 - 35 U/L [facility] Bilirubin [Mass/Vol] 0.3 mg/dL 0.2 - 1 .3 mg/dL [facility] Calcium [Mass/Vol] 9.1 mg/dL 8.5 - 10. 2 mg/dL [facility] Chloride [Moles/Vol] 103 mmol/L 97 - 10 5 mmol/L [facility] CO2 [Moles/Vol] 29 mmol/L 22 - 30 mmol/L [facility] Creatinine [Mass/Vol] 0.68 mg/dL 0.58 - 0.96 mg/dL [facility] Estimated Glomerular Filtration Rate 97 mL/min/1.73m >=60 mL/min/1.7 3m [facility] Glucose [Mass/Vol] 98 mg/dL 74 - 99 mg/dL [facility] Potassium [Moles/Vol] 3.9 mmol/L 3.7 - 5.1 mmol/L [facility] Protein [Mass/Vol] 5.9 g/dL Low 6.3 - 8.0 g/dL [facility] Sodium [Moles/Vol] 138 mmol/L 136 - 144 mmol/L [facility] Urea nitrogen [Mass/Vol] 7 mg/dL 7 - 21 mg/dL [facility] T4 FREE/FREE THYROXon 2023 Free T4 [Mass/Vol] 1.2 ng/dL 0.9 - 1.7 ng/dL [facility] TSH Don 07-12-2023 TSH Qn 1.450 m[IU]/L 0.270 - 4.200 mIU/L [facility] metabolic 2000 panelon 07-04-2023 Albumin [Mass/Vol] 3.9 g/dL 3.9 - 4.9 g/dL [facility] ALP [Catalytic activity/Vol] 137 U/L High 34 - 123 U/L [facility] ALT [Catalytic activity/Vol] 17 U/L 7 - 38 U/L [facility] Anion gap [Moles/Vol] 5 mmol/L Low 9 - 18 mmol/L [facility] AST [Catalytic activity/Vol] 19 U/L 13 - 35 U/L [facility] Bilirubin [Mass/Vol] 0.3 mg/dL 0.2 - 1 .3 mg/dL [facility] Calcium [Mass/Vol] 9.2 mg/dL 8.5 - 10. 2 mg/dL [facility] Chloride [Moles/Vol] 103 mmol/L 97 - 10 5 mmol/L [facility] CO2 [Moles/Vol] 29 mmol/L 22 - 30 mmol/L [facility] Creatinine [Mass/Vol] 0.62 mg/dL 0.58 - 0.96 mg/dL [facility] Estimated Glomerular Filtration Rate 100 mL/min/1.73m >=60 mL/min/1.7 3m [facility] Glucose [Mass/Vol] 112 mg/dL High 74 - 99 mg/dL [facility] Potassium [Moles/Vol] 4.0 mmol/L 3.7 - 5.1 mmol/L [facility] Protein [Mass/Vol] 6.1 g/dL Low 6.3 - 8.0 g/dL [facility] Sodium [Moles/Vol] 137 mmol/L 136 - 144 mmol/L [facility] Urea nitrogen [Mass/Vol] 8 mg/dL 7 - 21 mg/dL [facility] CBC W Auto Differential pane l (Bld)on 06-28-2023 Anisocytosis Ql (Bld) Present [facility] Basophils (Bld) [#/Vol] 0.00 10*3/uL <0.11 k/uL [facility] Basophils/100 WBC (Bld) 0.0 % [facility] Differential cell count method Nom (Bld) Manual [facility] Eosinophils (Bld) [#/Vol] 0.00 10*3/uL <0.46 k/uL [facility] Eosinophils/100 WBC (Bld) 0.0 % [facility] Erythrocyte distribution width (RBC) [Ratio] 17.1 % High 11.5 - 15.0 % [facility] Hematocrit (Bld) [Volume fraction] 28.6 % Low 36.0 - 46.0 % [facility] Hemoglobin (Bld) [Mass/Vol] 9.6 g/dL Low 11.5 - 15.5 g/dL [facility] Lymphocytes (Bld) [#/Vol] 1.04 10*3/uL 1.00 - 4.00 k/uL [facility] Lymphocytes/100 WBC (Bld) 5.0 % [facility] MCH (RBC) [Entitic mass] 31.1 pg 26.0 - 34.0 pg [facility] MCHC (RBC) [Mass/Vol] 33.6 g/dL 30.5 - 36.0 g/dL [facility] MCV (RBC) [Entitic vol] 92.6 fL 80.0 - 100.0 fL [facility] Monocytes (Bld) [#/Vol] 1.25 10*3/uL High <0.87 k/uL [facility] Monocytes/100 WBC (Bld) 6.0 % [facility] Neutrophils (Bld) [#/Vol] 18.55 10*3/uL High 1.45 - 7.50 k/uL [facility] Neutrophils/100 WBC (Bld) 89.0 % [facility] Nucleated RBC (Bld) [#/Vol] <0.01 k/uL [facility] Nucleated RBC/100 WBC (Bld) [Ratio] 0.0 /100 WBC [facility] Ovalocytes LM Ql (Bld) Few [facility] Platelet mean volume (Bld) [Entitic vol] 9.8 fL 9.0 - 12.7 fL [facility] Platelets (Bld) [#/Vol] 326 10*3/uL 150 - 400 k/uL [facility] Platelets Estimate (Bld) [#/Vol] Adequate [facility] Polychromasia LM Ql (Bld) Slight [facility] RBC (Bld) [#/Vol] 3.09 10*6/uL Low 3.90 - 5.20 m/uL [facility] RBC Fragments Few Abnormal None Seen [facility] Red Cell Morph Reviewed: see result s of individual morphologies [facility] WBC (Bld) [#/Vol] 20.84 10*3/uL High 3.70 - 11.00 k/uL [facility] Comprehensive metabolic 2000 panelon 06-28-2023 Albumin [Mass/Vol] 4.0 g/dL 3.9 - 4.9 g/dL [facility] ALP [Catalytic activity/Vol] 143 U/L High 34 - 123 U/L [facility] ALT [Catalytic activity/Vol] 27 U/L 7 - 38 U/L [facility] Anion gap [Moles/Vol] 6 mmol/L Low 9 - 18 mmol/L [facility] AST [Catalytic activity/Vol] 20 U/L 13 - 35 U/L [facility] Bilirubin [Mass/Vol] 0.3 mg/dL 0.2 - 1 .3 mg/dL [facility] Calcium [Mass/Vol] 9.0 mg/dL 8.5 - 10. 2 mg/dL [facility] Chloride [Moles/Vol] 103 mmol/L 97 - 10 5 mmol/L [facility] CO2 [Moles/Vol] 28 mmol/L 22 - 30 mmol/L [facility] Creatinine [Mass/Vol] 0.60 mg/dL 0.58 - 0.96 mg/dL [facility] Estimated Glomerular Filtration Rate 100 mL/min/1.73m >=60 mL/min/1.7 3m [facility] Glucose [Mass/Vol] 106 mg/dL High 74 - 99 mg/dL [facility] Potassium [Moles/Vol] 3.9 mmol/L 3.7 - 5.1 mmol/L [facility] Protein [Mass/Vol] 6.2 g/dL Low 6.3 - 8.0 g/dL [facility] Sodium [Moles/Vol] 137 mmol/L 136 - 144 mmol/L [facility] Urea nitrogen [Mass/Vol] 8 mg/dL 7 - 21 mg/dL [facility] CBC W Auto Differential pane l (Bld)on 06-14-2023 Anisocytosis Ql (Bld) Present [facility] Basophils (Bld) [#/Vol] 0.06 10*3/uL <0.11 k/uL [facility] Basophils/100 WBC (Bld) 5.0 % [facility] Differential cell count method Nom (Bld) Manual [facility] Eosinophils (Bld) [#/Vol] 0.13 10*3/uL <0.46 k/uL [facility] Eosinophils/100 WBC (Bld) 10.0 % [facility] Erythrocyte distribution width (RBC) [Ratio] 15.4 % High 11.5 - 15.0 % [facility] Hematocrit (Bld) [Volume fraction] 28.8 % Low 36.0 - 46.0 % [facility] Hemoglobin (Bld) [Mass/Vol] 9.8 g/dL Low 11.5 - 15.5 g/dL [facility] Lymphocytes (Bld) [#/Vol] 0.59 10*3/uL Low 1.00 - 4.00 k/uL [facility] Lymphocytes/100 WBC (Bld) 46.0 % [facility] MCH (RBC) [Entitic mass] 30.8 pg 26.0 - 34.0 pg [facility] MCHC (RBC) [Mass/Vol] 34.0 g/dL 30.5 - 36.0 g/dL [facility] MCV (RBC) [Entitic vol] 90.6 fL 80.0 - 100.0 fL [facility] [place] % 2.0 % [facility] Monocytes (Bld) [#/Vol] 0.31 10*3/uL <0.87 k/uL [facility] Monocytes/100 WBC (Bld) 24.0 % [facility] Myelo % 1.0 % [facility] Neutrophils (Bld) [#/Vol] 0.15 10*3/uL Low 1.45 - 7.50 k/uL [facility] Neutrophils/100 WBC (Bld) 12.0 % [facility] Nucleated RBC (Bld) [#/Vol] <0.01 k/uL [facility] Nucleated RBC/100 WBC (Bld) [Ratio] 0.0 /100 WBC [facility] Ovalocytes LM Ql (Bld) Few [facility] Platelet mean volume (Bld) [Entitic vol] 10.0 fL 9.0 - 12.7 fL [facility] Platelets (Bld) [#/Vol] 200 10*3/uL 150 - 400 k/uL [facility] Platelets Estimate (Bld) [#/Vol] Adequate [facility] RBC (Bld) [#/Vol] 3.18 10*6/uL Low 3.90 - 5.20 m/uL [facility] RBC Fragments Few Abnormal None Seen [facility] Red Cell Morph Reviewed: see result s of individual morphologies [facility] WBC (Bld) [#/Vol] 1.28 10*3/uL Low 3.70 - 11.00 k/uL [facility] CORTISOL [facility] 06-14-2023 Cortisol [Mass/Vol] 15.2 ug/dL 4.8 - 19 .5 ug/dL [facility] Comprehensive metabolic 2000 panelon 06-14-2023 Albumin [Mass/Vol] 3.9 g/dL 3.9 - 4.9 g/dL [facility] ALP [Catalytic activity/Vol] 75 U/L 34 - 123 U/L [facility] ALT [Catalytic activity/Vol] 39 U/L High 7 - 38 U/L [facility] Anion gap [Moles/Vol] 4 mmol/L Low 9 - 18 mmol/L [facility] AST [Catalytic activity/Vol] 31 U/L 13 - 35 U/L [facility] Bilirubin [Mass/Vol] 0.3 mg/dL 0.2 - 1 .3 mg/dL [facility] Calcium [Mass/Vol] 9.0 mg/dL 8.5 - 10. 2 mg/dL [facility] Chloride [Moles/Vol] 104 mmol/L 97 - 10 5 mmol/L [facility] CO2 [Moles/Vol] 29 mmol/L 22 - 30 mmol/L [facility] Creatinine [Mass/Vol] 0.62 mg/dL 0.58 - 0.96 mg/dL [facility] Estimated Glomerular Filtration Rate 100 mL/min/1.73m >=60 mL/min/1.7 3m [facility] Glucose [Mass/Vol] 112 mg/dL High 74 - 99 mg/dL [facility] Potassium [Moles/Vol] 3.7 mmol/L 3.7 - 5.1 mmol/L [facility] Protein [Mass/Vol] 6.2 g/dL Low 6.3 - 8.0 g/dL [facility] Sodium [Moles/Vol] 137 mmol/L 136 - 144 mmol/L [facility] Urea nitrogen [Mass/Vol] 9 mg/dL 7 - 21 mg/dL [facility] T4 FREE/FREE THYROXon 2023 Free T4 [Mass/Vol] 1.1 ng/dL 0.9 - 1.7 ng/dL [facility] TSH [facility] 06-14-2023 TSH Qn 2.040 m[IU]/L 0.270 - 4.200 mIU/L [facility] CBC W Auto Differential pane l (Bld)on 06-06-2023 Anisocytosis Ql (Bld) Present [facility] Basophils (Bld) [#/Vol] 0.00 10*3/uL <0.11 k/uL [facility] Basophils/100 WBC (Bld) 0.0 % [facility] Differential cell count method Nom (Bld) Manual [facility] Eosinophils (Bld) [#/Vol] 0.00 10*3/uL <0.46 k/uL [facility] Eosinophils/100 WBC (Bld) 0.0 % [facility] Erythrocyte distribution width (RBC) [Ratio] 16.2 % High 11.5 - 15.0 % [facility] Hematocrit (Bld) [Volume fraction] 32.2 % Low 36.0 - 46.0 % [facility] Hemoglobin (Bld) [Mass/Vol] 11.0 g/dL Low 11.5 - 15.5 g/dL [facility] Lymphocytes (Bld) [#/Vol] 0.67 10*3/uL Low 1.00 - 4.00 k/uL [facility] Lymphocytes/100 WBC (Bld) 3.0 % [facility] MCH (RBC) [Entitic mass] 30.8 pg 26.0 - 34.0 pg [facility] MCHC (RBC) [Mass/Vol] 34.2 g/dL 30.5 - 36.0 g/dL [facility] MCV (RBC) [Entitic vol] 90.2 fL 80.0 - 100.0 fL [facility] [place] % 1.0 % [facility] Monocytes (Bld) [#/Vol] 2.90 10*3/uL High <0.87 k/uL [facility] Monocytes/100 WBC (Bld) 13.0 % [facility] Neutrophils (Bld) [#/Vol] 18.48 10*3/uL High 1.45 - 7.50 k/uL [facility] Neutrophils/100 WBC (Bld) 83.0 % [facility] Nucleated RBC (Bld) [#/Vol] <0.01 k/uL [facility] Nucleated RBC/100 WBC (Bld) [Ratio] 0.0 /100 WBC [facility] Ovalocytes LM Ql (Bld) Few [facility] Platelet mean volume (Bld) [Entitic vol] 9.1 fL 9.0 - 12.7 fL [facility] Platelets (Bld) [#/Vol] 187 10*3/uL 150 - 400 k/uL [facility] Platelets Estimate (Bld) [#/Vol] Adequate [facility] RBC (Bld) [#/Vol] 3.57 10*6/uL Low 3.90 - 5.20 m/uL [facility] RBC Fragments Few Abnormal None Seen [facility] Red Cell Morph Reviewed: see result s of individual morphologies [facility] WBC (Bld) [#/Vol] 22.27 10*3/uL High 3.70 - 11.00 k/uL [facility] CORTISOL BLDon 06-06-2023 Cortisol [Mass/Vol] 10.7 ug/dL 4.8 - 19 .5 ug/dL [facility] Comprehensive metabolic 2000 panelon 06-06-2023 Albumin [Mass/Vol] 4.3 g/dL 3.9 - 4.9 g/dL [facility] ALP [Catalytic activity/Vol] 165 U/L High 34 - 123 U/L [facility] ALT [Catalytic activity/Vol] 10 U/L 7 - 38 U/L [facility] Anion gap [Moles/Vol] 6 mmol/L Low 9 - 18 mmol/L [facility] AST [Catalytic activity/Vol] 16 U/L 13 - 35 U/L [facility] Bilirubin [Mass/Vol] 0.3 mg/dL 0.2 - 1 .3 mg/dL [facility] Calcium [Mass/Vol] 9.3 mg/dL 8.5 - 10. 2 mg/dL [facility] Chloride [Moles/Vol] 102 mmol/L 97 - 10 5 mmol/L [facility] CO2 [Moles/Vol] 29 mmol/L 22 - 30 mmol/L [facility] Creatinine [Mass/Vol] 0.68 mg/dL 0.58 - 0.96 mg/dL [facility] Estimated Glomerular Filtration Rate 97 mL/min/1.73m >=60 mL/min/1.7 3m [facility] Glucose [Mass/Vol] 92 mg/dL 74 - 99 mg/dL [facility] Potassium [Moles/Vol] 4.2 mmol/L 3.7 - 5.1 mmol/L [facility] Protein [Mass/Vol] 6.6 g/dL 6.3 - 8.0 g/dL [facility] Sodium [Moles/Vol] 137 mmol/L 136 - 144 mmol/L [facility] Urea nitrogen [Mass/Vol] 8 mg/dL 7 - 21 mg/dL [facility] T4 FREE/FREE THYROXon 2023 Free T4 [Mass/Vol] 1.1 ng/dL 0.9 - 1.7 ng/dL [facility] TSH BLDon 06-06-2023 TSH Qn 1.210 m[IU]/L 0.270 - 4.200 mIU/L [facility] CBC W Auto Differential pane l (Bld)on 05-31-2023 Basophils (Bld) [#/Vol] 0.06 10*3/uL <0.11 k/uL [facility] Basophils/100 WBC (Bld) 3.0 % [facility] Differential cell count method Nom (Bld) Auto [facility] Eosinophils (Bld) [#/Vol] 0.12 10*3/uL <0.46 k/uL [facility] Eosinophils/100 WBC (Bld) 5.9 % [facility] Erythrocyte distribution width (RBC) [Ratio] 15.6 % High 11.5 - 15.0 % [facility] Hematocrit (Bld) [Volume fraction] 31.9 % Low 36.0 - 46.0 % [facility] Hemoglobin (Bld) [Mass/Vol] 10.9 g/dL Low 11.5 - 15.5 g/dL [facility] Immature granulocytes (Bld) [#/Vol] <0.10 k/uL [facility] Immature granulocytes/100 WBC (Bld) 0.0 % [facility] Lymphocytes (Bld) [#/Vol] 0.65 10*3/uL Low 1.00 - 4.00 k/uL [facility] Lymphocytes/100 WBC (Bld) 32.2 % [facility] MCH (RBC) [Entitic mass] 30.5 pg 26.0 - 34.0 pg [facility] MCHC (RBC) [Mass/Vol] 34.2 g/dL 30.5 - 36.0 g/dL [facility] MCV (RBC) [Entitic vol] 89.4 fL 80.0 - 100.0 fL [facility] Monocytes (Bld) [#/Vol] 0.43 10*3/uL <0.87 k/uL [facility] Monocytes/100 WBC (Bld) 21.3 % [facility] Neutrophils (Bld) [#/Vol] 0.76 10*3/uL Low 1.45 - 7.50 k/uL [facility] Neutrophils/100 WBC (Bld) 37.6 % [facility] Nucleated RBC (Bld) [#/Vol] <0.01 k/uL [facility] Nucleated RBC/100 WBC (Bld) [Ratio] 0.0 /100 WBC [facility] Platelet mean volume (Bld) [Entitic vol] 8.9 fL Low 9.0 - 12.7 fL [facility] Platelets (Bld) [#/Vol] 163 10*3/uL 150 - 400 k/uL [facility] RBC (Bld) [#/Vol] 3.57 10*6/uL Low 3.90 - 5.20 m/uL [facility] WBC (Bld) [#/Vol] 2.02 10*3/uL Low 3.70 - 11.00 k/uL [facility] Comprehensive metabolic 2000 panelon 05-31-2023 Albumin [Mass/Vol] 4.2 g/dL 3.9 - 4.9 g/dL [facility] ALP [Catalytic activity/Vol] 57 U/L 34 - 123 U/L [facility] ALT [Catalytic activity/Vol] 10 U/L 7 - 38 U/L [facility] Anion gap [Moles/Vol] 6 mmol/L Low 9 - 18 mmol/L [facility] AST [Catalytic activity/Vol] 15 U/L 13 - 35 U/L [facility] Bilirubin [Mass/Vol] 0.3 mg/dL 0.2 - 1 .3 mg/dL [facility] Calcium [Mass/Vol] 9.1 mg/dL 8.5 - 10. 2 mg/dL [facility] Chloride [Moles/Vol] 102 mmol/L 97 - 10 5 mmol/L [facility] CO2 [Moles/Vol] 28 mmol/L 22 - 30 mmol/L [facility] Creatinine [Mass/Vol] 0.64 mg/dL 0.58 - 0.96 mg/dL [facility] Estimated Glomerular Filtration Rate 99 mL/min/1.73m >=60 mL/min/1.7 3m [facility] Glucose [Mass/Vol] 92 mg/dL 74 - 99 mg/dL [facility] Potassium [Moles/Vol] 4.3 mmol/L 3.7 - 5.1 mmol/L [facility] Protein [Mass/Vol] 6.4 g/dL 6.3 - 8.0 g/dL [facility] Sodium [Moles/Vol] 136 mmol/L 136 - 144 mmol/L [facility] Urea nitrogen [Mass/Vol] 13 mg/dL 7 - 21 mg/dL [facility] CBC W Auto Differential pane l (Bld)on 05-24-2023 Anisocytosis Ql (Bld) Present [facility] Basophils (Bld) [#/Vol] 0.02 10*3/uL <0.11 k/uL [facility] Basophils/100 WBC (Bld) 1.0 % [facility] Differential cell count method Nom (Bld) Manual [facility] Eosinophils (Bld) [#/Vol] 0.10 10*3/uL <0.46 k/uL [facility] Eosinophils/100 WBC (Bld) 6.0 % [facility] Erythrocyte distribution width (RBC) [Ratio] 14.8 % 11.5 - 15.0 % [facility] Hematocrit (Bld) [Volume fraction] 31.1 % Low 36.0 - 46.0 % [facility] Hemoglobin (Bld) [Mass/Vol] 10.7 g/dL Low 11.5 - 15.5 g/dL [facility] Lymphocytes (Bld) [#/Vol] 0.39 10*3/uL Low 1.00 - 4.00 k/uL [facility] Lymphocytes/100 WBC (Bld) 23.0 % [facility] MCH (RBC) [Entitic mass] 30.5 pg 26.0 - 34.0 pg [facility] MCHC (RBC) [Mass/Vol] 34.4 g/dL 30.5 - 36.0 g/dL [facility] MCV (RBC) [Entitic vol] 88.6 fL 80.0 - 100.0 fL [facility] Monocytes (Bld) [#/Vol] 0.26 10*3/uL <0.87 k/uL [facility] Monocytes/100 WBC (Bld) 15.0 % [facility] Neutrophils (Bld) [#/Vol] 0.94 10*3/uL Low 1.45 - 7.50 k/uL [facility] Neutrophils/100 WBC (Bld) 55.0 % [facility] Nucleated RBC (Bld) [#/Vol] <0.01 k/uL [facility] Nucleated RBC/100 WBC (Bld) [Ratio] 0.0 /100 WBC [facility] Ovalocytes LM Ql (Bld) Few [facility] Platelet mean volume (Bld) [Entitic vol] 9.3 fL 9.0 - 12.7 fL [facility] Platelets (Bld) [#/Vol] 203 10*3/uL 150 - 400 k/uL [facility] Platelets Estimate (Bld) [#/Vol] Adequate [facility] RBC (Bld) [#/Vol] 3.51 10*6/uL Low 3.90 - 5.20 m/uL [facility] RBC Fragments Few Abnormal None Seen [facility] Red Cell Morph Reviewed: see result s of individual morphologies [facility] WBC (Bld) [#/Vol] 1.70 10*3/uL Low 3.70 - 11.00 k/uL [facility] Comprehensive metabolic 2000 panelon 05-24-2023 Albumin [Mass/Vol] 4.1 g/dL 3.9 - 4.9 g/dL [facility] ALP [Catalytic activity/Vol] 51 U/L 34 - 123 U/L [facility] ALT [Catalytic activity/Vol] 13 U/L 7 - 38 U/L [facility] Anion gap [Moles/Vol] 5 mmol/L Low 9 - 18 mmol/L [facility] AST [Catalytic activity/Vol] 16 U/L 13 - 35 U/L [facility] Bilirubin [Mass/Vol] 0.3 mg/dL 0.2 - 1 .3 mg/dL [facility] Calcium [Mass/Vol] 9.1 mg/dL 8.5 - 10. 2 mg/dL [facility] Chloride [Moles/Vol] 101 mmol/L 97 - 10 5 mmol/L [facility] CO2 [Moles/Vol] 29 mmol/L 22 - 30 mmol/L [facility] Creatinine [Mass/Vol] 0.63 mg/dL 0.58 - 0.96 mg/dL [facility] Estimated Glomerular Filtration Rate 99 mL/min/1.73m >=60 mL/min/1.7 3m [facility] Glucose [Mass/Vol] 98 mg/dL 74 - 99 mg/dL [facility] Potassium [Moles/Vol] 4.3 mmol/L 3.7 - 5.1 mmol/L [facility] Protein [Mass/Vol] 6.2 g/dL Low 6.3 - 8.0 g/dL [facility] Sodium [Moles/Vol] 135 mmol/L Low 136 - 144 mmol/L [facility] Urea nitrogen [Mass/Vol] 12 mg/dL 7 - 21 mg/dL [facility] CBC W Auto Differential pane l (Bld)on 05-17-2023 Basophils (Bld) [#/Vol] 0.05 10*3/uL <0.11 k/uL [facility] Basophils/100 WBC (Bld) 2.2 % [facility] Differential cell count method Nom (Bld) Auto [facility] Eosinophils (Bld) [#/Vol] 0.10 10*3/uL <0.46 k/uL [facility] Eosinophils/100 WBC (Bld) 4.3 % [facility] Erythrocyte distribution width (RBC) [Ratio] 14.0 % 11.5 - 15.0 % [facility] Hematocrit (Bld) [Volume fraction] 31.5 % Low 36.0 - 46.0 % [facility] Hemoglobin (Bld) [Mass/Vol] 10.9 g/dL Low 11.5 - 15.5 g/dL [facility] Immature granulocytes (Bld) [#/Vol] <0.10 k/uL [facility] Immature granulocytes/100 WBC (Bld) 0.4 % [facility] Lymphocytes (Bld) [#/Vol] 0.67 10*3/uL Low 1.00 - 4.00 k/uL [facility] Lymphocytes/100 WBC (Bld) 29.0 % [facility] MCH (RBC) [Entitic mass] 30.0 pg 26.0 - 34.0 pg [facility] MCHC (RBC) [Mass/Vol] 34.6 g/dL 30.5 - 36.0 g/dL [facility] MCV (RBC) [Entitic vol] 86.8 fL 80.0 - 100.0 fL [facility] Monocytes (Bld) [#/Vol] 0.20 10*3/uL <0.87 k/uL [facility] Monocytes/100 WBC (Bld) 8.7 % [facility] Neutrophils (Bld) [#/Vol] 1.28 10*3/uL Low 1.45 - 7.50 k/uL [facility] Neutrophils/100 WBC (Bld) 55.4 % [facility] Nucleated RBC (Bld) [#/Vol] <0.01 k/uL [facility] Nucleated RBC/100 WBC (Bld) [Ratio] 0.0 /100 WBC [facility] Platelet mean volume (Bld) [Entitic vol] 9.2 fL 9.0 - 12.7 fL [facility] Platelets (Bld) [#/Vol] 230 10*3/uL 150 - 400 k/uL [facility] RBC (Bld) [#/Vol] 3.63 10*6/uL Low 3.90 - 5.20 m/uL [facility] WBC (Bld) [#/Vol] 2.31 10*3/uL Low 3.70 - 11.00 k/uL [facility] CBC W Auto Differential pane l (Bld)on 05-16-2023 Anisocytosis Ql (Bld) Present [facility] Basophils (Bld) [#/Vol] 0.06 10*3/uL <0.11 k/uL [facility] Basophils/100 WBC (Bld) 3.0 % [facility] Differential cell count method Nom (Bld) Manual [facility] Eosinophils (Bld) [#/Vol] 0.13 10*3/uL <0.46 k/uL [facility] Eosinophils/100 WBC (Bld) 7.0 % [facility] Erythrocyte distribution width (RBC) [Ratio] 14.1 % 11.5 - 15.0 % [facility] Hematocrit (Bld) [Volume fraction] 31.9 % Low 36.0 - 46.0 % [facility] Hemoglobin (Bld) [Mass/Vol] 10.8 g/dL Low 11.5 - 15.5 g/dL [facility] Lymphocytes (Bld) [#/Vol] 0.64 10*3/uL Low 1.00 - 4.00 k/uL [facility] Lymphocytes/100 WBC (Bld) 34.0 % [facility] MCH (RBC) [Entitic mass] 29.8 pg 26.0 - 34.0 pg [facility] MCHC (RBC) [Mass/Vol] 33.9 g/dL 30.5 - 36.0 g/dL [facility] MCV (RBC) [Entitic vol] 87.9 fL 80.0 - 100.0 fL [facility] Monocytes (Bld) [#/Vol] 0.11 10*3/uL <0.87 k/uL [facility] Monocytes/100 WBC (Bld) 6.0 % [facility] Neutrophils (Bld) [#/Vol] 0.94 10*3/uL Low 1.45 - 7.50 k/uL [facility] Neutrophils/100 WBC (Bld) 50.0 % [facility] Nucleated RBC (Bld) [#/Vol] <0.01 k/uL [facility] Nucleated RBC/100 WBC (Bld) [Ratio] 0.0 /100 WBC [facility] Ovalocytes LM Ql (Bld) Few [facility] Platelet mean volume (Bld) [Entitic vol] 9.2 fL 9.0 - 12.7 fL [facility] Platelets (Bld) [#/Vol] 220 10*3/uL 150 - 400 k/uL [facility] Platelets Estimate (Bld) [#/Vol] Adequate [facility] RBC (Bld) [#/Vol] 3.63 10*6/uL Low 3.90 - 5.20 m/uL [facility] RBC Fragments Few Abnormal None Seen [facility] Red Cell Morph Reviewed: see result s of individual morphologies [facility] WBC (Bld) [#/Vol] 1.88 10*3/uL Low 3.70 - 11.00 k/uL [facility] CORTISOL BLDon 05-16-2023 Cortisol [Mass/Vol] 8.2 ug/dL 4.8 - 19 .5 ug/dL [facility] Comprehensive metabolic 2000 panelon 05-16-2023 Albumin [Mass/Vol] 4.0 g/dL 3.9 - 4.9 g/dL [facility] ALP [Catalytic activity/Vol] 49 U/L 34 - 123 U/L [facility] ALT [Catalytic activity/Vol] 14 U/L 7 - 38 U/L [facility] Anion gap [Moles/Vol] 7 mmol/L Low 9 - 18 mmol/L [facility] AST [Catalytic activity/Vol] 16 U/L 13 - 35 U/L [facility] Bilirubin [Mass/Vol] 0.3 mg/dL 0.2 - 1 .3 mg/dL [facility] Calcium [Mass/Vol] 8.7 mg/dL 8.5 - 10. 2 mg/dL [facility] Chloride [Moles/Vol] 99 mmol/L 97 - 10 5 mmol/L [facility] CO2 [Moles/Vol] 28 mmol/L 22 - 30 mmol/L [facility] Creatinine [Mass/Vol] 0.76 mg/dL 0.58 - 0.96 mg/dL [facility] Estimated Glomerular Filtration Rate 88 mL/min/1.73m >=60 mL/min/1.7 3m [facility] Glucose [Mass/Vol] 96 mg/dL 74 - 99 mg/dL [facility] Potassium [Moles/Vol] 4.1 mmol/L 3.7 - 5.1 mmol/L [facility] Protein [Mass/Vol] 6.2 g/dL Low 6.3 - 8.0 g/dL [facility] Sodium [Moles/Vol] 134 mmol/L Low 136 - 144 mmol/L [facility] Urea nitrogen [Mass/Vol] 11 mg/dL 7 - 21 mg/dL [facility] T4 FREE/FREE THYROXon 2023 Free T4 [Mass/Vol] 1.2 ng/dL 0.9 - 1.7 ng/dL [facility] TSH BLDon 05-16-2023 TSH Qn 0.975 m[IU]/L 0.270 - 4.200 mIU/L [facility] CBC W Auto Differential pane l (Bld)on 05-10-2023 Basophils (Bld) [#/Vol] 0.05 10*3/uL <0.11 k/uL [facility] Basophils/100 WBC (Bld) 2.5 % [facility] Differential cell count method Nom (Bld) Auto [facility] Eosinophils (Bld) [#/Vol] 0.11 10*3/uL <0.46 k/uL [facility] Eosinophils/100 WBC (Bld) 5.4 % [facility] Erythrocyte distribution width (RBC) [Ratio] 13.5 % 11.5 - 15.0 % [facility] Hematocrit (Bld) [Volume fraction] 32.7 % Low 36.0 - 46.0 % [facility] Hemoglobin (Bld) [Mass/Vol] 11.2 g/dL Low 11.5 - 15.5 g/dL [facility] Immature granulocytes (Bld) [#/Vol] <0.10 k/uL [facility] Immature granulocytes/100 WBC (Bld) 0.5 % [facility] Lymphocytes (Bld) [#/Vol] 0.71 10*3/uL Low 1.00 - 4.00 k/uL [facility] Lymphocytes/100 WBC (Bld) 34.8 % [facility] MCH (RBC) [Entitic mass] 30.2 pg 26.0 - 34.0 pg [facility] MCHC (RBC) [Mass/Vol] 34.3 g/dL 30.5 - 36.0 g/dL [facility] MCV (RBC) [Entitic vol] 88.1 fL 80.0 - 100.0 fL [facility] Monocytes (Bld) [#/Vol] 0.18 10*3/uL <0.87 k/uL [facility] Monocytes/100 WBC (Bld) 8.8 % [facility] Neutrophils (Bld) [#/Vol] 0.98 10*3/uL Low 1.45 - 7.50 k/uL [facility] Neutrophils/100 WBC (Bld) 48.0 % [facility] Nucleated RBC (Bld) [#/Vol] <0.01 k/uL [facility] Nucleated RBC/100 WBC (Bld) [Ratio] 0.0 /100 WBC [facility] Platelet mean volume (Bld) [Entitic vol] 9.3 fL 9.0 - 12.7 fL [facility] Platelets (Bld) [#/Vol] 241 10*3/uL 150 - 400 k/uL [facility] RBC (Bld) [#/Vol] 3.71 10*6/uL Low 3.90 - 5.20 m/uL [facility] WBC (Bld) [#/Vol] 2.04 10*3/uL Low 3.70 - 11.00 k/uL [facility] Comprehensive metabolic 2000 panelon 05-10-2023 Albumin [Mass/Vol] 4.1 g/dL 3.9 - 4.9 g/dL [facility] ALP [Catalytic activity/Vol] 56 U/L 34 - 123 U/L [facility] ALT [Catalytic activity/Vol] 16 U/L 7 - 38 U/L [facility] Anion gap [Moles/Vol] 5 mmol/L Low 9 - 18 mmol/L [facility] AST [Catalytic activity/Vol] 18 U/L 13 - 35 U/L [facility] Bilirubin [Mass/Vol] 0.4 mg/dL 0.2 - 1 .3 mg/dL [facility] Calcium [Mass/Vol] 9.0 mg/dL 8.5 - 10. 2 mg/dL [facility] Chloride [Moles/Vol] 103 mmol/L 97 - 10 5 mmol/L [facility] CO2 [Moles/Vol] 30 mmol/L 22 - 30 mmol/L [facility] Creatinine [Mass/Vol] 0.69 mg/dL 0.58 - 0.96 mg/dL [facility] Estimated Glomerular Filtration Rate 98 mL/min/1.73m >=60 mL/min/1.7 3m [facility] Glucose [Mass/Vol] 88 mg/dL 74 - 99 mg/dL [facility] Potassium [Moles/Vol] 4.1 mmol/L 3.7 - 5.1 mmol/L [facility] Protein [Mass/Vol] 6.4 g/dL 6.3 - 8.0 g/dL [facility] Sodium [Moles/Vol] 138 mmol/L 136 - 144 mmol/L [facility] Urea nitrogen [Mass/Vol] 13 mg/dL 7 - 21 mg/dL [facility] CBC W Auto Differential pane l (Bld)on 05-03-2023 Basophils (Bld) [#/Vol] 0.03 10*3/uL <0.11 k/uL [facility] Basophils/100 WBC (Bld) 1.0 % [facility] Differential cell count method Nom (Bld) Auto [facility] Eosinophils (Bld) [#/Vol] 0.10 10*3/uL <0.46 k/uL [facility] Eosinophils/100 WBC (Bld) 3.3 % [facility] Erythrocyte distribution width (RBC) [Ratio] 13.2 % 11.5 - 15.0 % [facility] Hematocrit (Bld) [Volume fraction] 33.2 % Low 36.0 - 46.0 % [facility] Hemoglobin (Bld) [Mass/Vol] 11.4 g/dL Low 11.5 - 15.5 g/dL [facility] Immature granulocytes (Bld) [#/Vol] <0.10 k/uL [facility] Immature granulocytes/100 WBC (Bld) 0.3 % [facility] Lymphocytes (Bld) [#/Vol] 0.74 10*3/uL Low 1.00 - 4.00 k/uL [facility] Lymphocytes/100 WBC (Bld) 24.2 % [facility] MCH (RBC) [Entitic mass] 29.9 pg 26.0 - 34.0 pg [facility] MCHC (RBC) [Mass/Vol] 34.3 g/dL 30.5 - 36.0 g/dL [facility] MCV (RBC) [Entitic vol] 87.1 fL 80.0 - 100.0 fL [facility] Monocytes (Bld) [#/Vol] 0.27 10*3/uL <0.87 k/uL [facility] Monocytes/100 WBC (Bld) 8.8 % [facility] Neutrophils (Bld) [#/Vol] 1.91 10*3/uL 1.45 - 7.50 k/uL [facility] Neutrophils/100 WBC (Bld) 62.4 % [facility] Nucleated RBC (Bld) [#/Vol] <0.01 k/uL [facility] Nucleated RBC/100 WBC (Bld) [Ratio] 0.0 /100 WBC [facility] Platelet mean volume (Bld) [Entitic vol] 9.5 fL 9.0 - 12.7 fL [facility] Platelets (Bld) [#/Vol] 232 10*3/uL 150 - 400 k/uL [facility] RBC (Bld) [#/Vol] 3.81 10*6/uL Low 3.90 - 5.20 m/uL [facility] WBC (Bld) [#/Vol] 3.06 10*3/uL Low 3.70 - 11.00 k/uL [facility] Comprehensive metabolic 2000 panelon 05-03-2023 Albumin [Mass/Vol] 4.1 g/dL 3.9 - 4.9 g/dL [facility] ALP [Catalytic activity/Vol] 65 U/L 34 - 123 U/L [facility] ALT [Catalytic activity/Vol] 13 U/L 7 - 38 U/L [facility] Anion gap [Moles/Vol] 7 mmol/L Low 9 - 18 mmol/L [facility] AST [Catalytic activity/Vol] 21 U/L 13 - 35 U/L [facility] Bilirubin [Mass/Vol] 0.2 mg/dL 0.2 - 1 .3 mg/dL [facility] Calcium [Mass/Vol] 9.5 mg/dL 8.5 - 10. 2 mg/dL [facility] Chloride [Moles/Vol] 100 mmol/L 97 - 10 5 mmol/L [facility] CO2 [Moles/Vol] 29 mmol/L 22 - 30 mmol/L [facility] Creatinine [Mass/Vol] 0.66 mg/dL 0.58 - 0.96 mg/dL [facility] Estimated Glomerular Filtration Rate 99 mL/min/1.73m >=60 mL/min/1.7 3m [facility] Glucose [Mass/Vol] 91 mg/dL 74 - 99 mg/dL [facility] Potassium [Moles/Vol] 4.2 mmol/L 3.7 - 5.1 mmol/L [facility] Protein [Mass/Vol] 6.4 g/dL 6.3 - 8.0 g/dL [facility] Sodium [Moles/Vol] 136 mmol/L 136 - 144 mmol/L [facility] Urea nitrogen [Mass/Vol] 13 mg/dL 7 - 21 mg/dL [facility] CBC W Auto Differential pane l (Bld)on 04-25-2023 Basophils (Bld) [#/Vol] 0.06 10*3/uL <0.11 k/uL [facility] Basophils/100 WBC (Bld) 1.1 % [facility] Differential cell count method Nom (Bld) Auto [facility] Eosinophils (Bld) [#/Vol] 0.12 10*3/uL <0.46 k/uL [facility] Eosinophils/100 WBC (Bld) 2.2 % [facility] Erythrocyte distribution width (RBC) [Ratio] 13.2 % 11.5 - 15.0 % [facility] Hematocrit (Bld) [Volume fraction] 35.9 % Low 36.0 - 46.0 % [facility] Hemoglobin (Bld) [Mass/Vol] 12.2 g/dL 11.5 - 15.5 g/dL [facility] Immature granulocytes (Bld) [#/Vol] <0.10 k/uL [facility] Immature granulocytes/100 WBC (Bld) 0.2 % [facility] Lymphocytes (Bld) [#/Vol] 0.86 10*3/uL Low 1.00 - 4.00 k/uL [facility] Lymphocytes/100 WBC (Bld) 15.9 % [facility] MCH (RBC) [Entitic mass] 29.5 pg 26.0 - 34.0 pg [facility] MCHC (RBC) [Mass/Vol] 34.0 g/dL 30.5 - 36.0 g/dL [facility] MCV (RBC) [Entitic vol] 86.9 fL 80.0 - 100.0 fL [facility] Monocytes (Bld) [#/Vol] 0.63 10*3/uL <0.87 k/uL [facility] Monocytes/100 WBC (Bld) 11.7 % [facility] Neutrophils (Bld) [#/Vol] 3.72 10*3/uL 1.45 - 7.50 k/uL [facility] Neutrophils/100 WBC (Bld) 68.9 % [facility] Nucleated RBC (Bld) [#/Vol] <0.01 k/uL [facility] Nucleated RBC/100 WBC (Bld) [Ratio] 0.0 /100 WBC [facility] Platelet mean volume (Bld) [Entitic vol] 9.1 fL 9.0 - 12.7 fL [facility] Platelets (Bld) [#/Vol] 244 10*3/uL 150 - 400 k/uL [facility] RBC (Bld) [#/Vol] 4.13 10*6/uL 3.90 - 5.20 m/uL [facility] WBC (Bld) [#/Vol] 5.40 10*3/uL 3.70 - 11.00 k/uL [facility] CORTISOL BLDon 04-25-2023 Cortisol [Mass/Vol] 12.1 ug/dL 4.8 - 19 .5 ug/dL [facility] Comprehensive metabolic 2000 panelon 04-25-2023 Albumin [Mass/Vol] 4.5 g/dL 3.9 - 4.9 g/dL [facility] ALP [Catalytic activity/Vol] 73 U/L 34 - 123 U/L [facility] ALT [Catalytic activity/Vol] 12 U/L 7 - 38 U/L [facility] Anion gap [Moles/Vol] 7 mmol/L Low 9 - 18 mmol/L [facility] AST [Catalytic activity/Vol] 21 U/L 13 - 35 U/L [facility] Bilirubin [Mass/Vol] 0.3 mg/dL 0.2 - 1 .3 mg/dL [facility] Calcium [Mass/Vol] 9.6 mg/dL 8.5 - 10. 2 mg/dL [facility] Chloride [Moles/Vol] 99 mmol/L 97 - 10 5 mmol/L [facility] CO2 [Moles/Vol] 30 mmol/L 22 - 30 mmol/L [facility] Creatinine [Mass/Vol] 0.71 mg/dL 0.58 - 0.96 mg/dL [facility] Estimated Glomerular Filtration Rate 96 mL/min/1.73m >=60 mL/min/1.7 3m [facility] Glucose [Mass/Vol] 95 mg/dL 74 - 99 mg/dL [facility] Potassium [Moles/Vol] 4.2 mmol/L 3.7 - 5.1 mmol/L [facility] Protein [Mass/Vol] 6.9 g/dL 6.3 - 8.0 g/dL [facility] Sodium [Moles/Vol] 136 mmol/L 136 - 144 mmol/L [facility] Urea nitrogen [Mass/Vol] 14 mg/dL 7 - 21 mg/dL [facility] T4 FREE/FREE THYROXon 2023 Free T4 [Mass/Vol] 1.2 ng/dL 0.9 - 1.7 ng/dL [facility] TSH BLDon 04-25-2023 TSH Qn 2.160 m[IU]/L 0.270 - 4.200 mIU/L [facility] BREAST MARKERSon 04-24-2023 BREAST BIOMARKER Normal [facility] Comment on above: Order Comment: Speci men Type: TISSUE SPECIMEN Ordering Facility: [facility] Address: [address] [place] [address] Result Comment: Duane garber Biomarkers RESULTS: Estrogen Receptor (ER) Negative <1% Stain intensity: not applicable Internal controls: present and stained as expected External controls: appropriately stained Progesterone Receptor (IL) Negative <1% Stain intensity: not applicable Internal controls: absent External controls: appropriately stained HER2 (ERBB2) IMMUNOHISTOCHEMISTRY ASSAY Interpretation: NEGATIVE for HER2 overexpression Score: 0 Percentage of cells with uniform intense complete membrane staining: NA (reported for 2+ and 3+ scores only) Block Number: [id number] Block A1 Tissue Analyzed: Invasive carcinoma Tumor Grade: Grade 3 Specimen fixative: 10% neutral buffered formalin Length of fixation: >6 and <72 hours Cold ischemia time: 0 min(s) Latest ASCO/CAP guidelines for fixation met: yes Reference Range for Hormone Receptors: Staining for IL of greater than or equal to 1% of the tumor cells is considered positive. Staining for ER of 1-10% of the tumor cells is considered low positive. Staining for ER of greater than 10% of the tumor cells is considered positive. Staining for ER or IL of less than 1% is considered negative. [...] and Progesterone Receptor Testing in Breast Cancer: [place] Society of Clinical Oncology/College of [place] Pathologists Guideline Update. MANSOOR Hensley, Kenneth GALO, et al., Arch Pathol Lab Med. 2019Apr 06. METHODS: Estrogen Receptor: Food and Drug Administration (FDA) cleared: [employer], [place], [place] Primary Antibody: SP1 Progesterone Receptor: FDA cleared: [employer], [place], [place] Primary Antibody: IE2 HER2 (ERBB2) by IHC: FDA cleared: [employer], [place], [place] Primary Antibody:4B5 The hormone receptor tests were performed and reported in accordance with the guidelines approved by the [place] Society of Clinical Oncologists and the College of [place] Pathologists. Shellie MAX, et al. Estrogen and Progesterone Receptor Testing in Breast Cancer: [place] Society of Clinical Oncologists and the College of [place] Pathologists Guideline Update. Arch Pathol Lab Med. 2019;144(5):545563. PMID: [id number]. The hormone receptor assays have been internally validated on decalcified tissues (for [facility] only). Estrogen and progesterone receptor results are valid if tissue was processed according to ASCO/CAP guidelines. Antibody and Detection System: [employer] Pathway anti-HER2 rabbit monoclonal antibody (clone [id number]), [employer] Confirm anti-estrogen receptor rabbit monoclonal antibody (clone SP1) and [employer] anti-progesterone receptor rabbit monoclonal antibody (clone IE2) detected with the [employer]View Univeral DAB Detection Kit (indirect biotin-free detection), [employer], [place], [place]. Control Slides: Cell line controls with [...] accordance with the guidelines approved by the [place] Society of Clinical Oncologists and the College of [place] Pathologists. Aleisha SALEH et al. Arch Pathol [...] content not included)... Performed By: #### L [id number] #### [facility] CLIA [id number] [address] [place] [address] [place] [facility] BILon 024 [facility] * * *Final Report* * * DATE OF EXAM: Apr 24 2023 2:40PM [facility] [id number] - [facility] / PROCEDURE REASON: POST ULTRASOUND BIOPSY, BILATERAL BREAST * * * * Physician Interpretation * * * * #[id number] - [facility] BILATERAL DIGITAL DIAGNOSTIC MAMMOGRAM WITH CAD: 04/24/2023 HISTORY: Post Ultrasound Biopsy, Bilateral Breast. RESULT: TECHNIQUE: The study was acquired using full field digital technology and interpreted from soft copy. Current study was also evaluated with a Computer Aided Detection (CAD). Comparison is made to exam dated: 04/17/2023 mammogram - [facility]. The breasts are almost entirely fatty. [...] outer aspect anterior depth. Yael saul/nathanael:04/24/2023 14:35:44 Apartment Leasing Specialist(s): Mary Ellen Sams, [facility] BI-RADS: Post-procedure mammogram for marker placement [...] Medicine, and Medical/Surgical Oncology, the [facility] has carefully reviewed the data and [...] their providers when to stop screening mammograms. Architectural Inspector: Nathanael Transcribe Date/Time: Apr 24 2023 2:10P Dictated by : YAEL MARSHALL MD This examination was interpreted and the report reviewed and electronically signed by: YAEL MARSHALL MD on Apr 24 2023 2:35PM EST [id number] Normal [facility] US BIOPSY BREAST LTon [facility] US BIOPSY BREAST LT * * *Final Report* * * DATE OF EXAM: Apr 24 2023 2:12PM [facility]HW 0597 - [facility] US BIOPSY BREAST LT / PROCEDURE REASON: Mass of upper outer quadrant of left breast * * * * Physician Interpretation * * * * #[id number] - [facility] US BIOPSY BREAST LT ULTRASOUND GUIDED BIOPSY LEFT BREAST WITH MARKING DEVICE INSERTED: 04/24/2023 HISTORY: Mass Of Upper Outer Quadrant Of Left Breast. Correlation is made to exams dated: 04/17/2023 mammogram, 04/17/2023 ultrasound - [facility], 04/17/2023 ultrasound - [facility], 04/24/2023 ultrasound - [facility], and 04/17/2023 mammogram - [facility]. PATIENT CONSENT: The risks, benefits and alternatives [...] biopsy marking clip was placed at the [facility] site under ultrasound guidance. The core samples [...] is recommended. Anita Stinson M.D. mf/:05/01/2023 09:40:13 Apartment Leasing Specialist(s): Bernadette Cleary, [facility] Multiple national specialty organizations have released breast cancer screening guidelines for women at average risk for developing breast cancer - guidelines that are based on both evidence and opinion, yet differ on when to start and how often to screen for breast cancer. With representation from Breast Imaging, Internal Medicine, Women's Health, Family Medicine, and Medical/Surgical Oncology, the [facility] has carefully reviewed the data and [...] their providers when to stop screening mammograms. Architectural Inspector: Nathanael Transcribe Date/Time: Apr 24 2023 2:05P Dictated by : ANITA STINSON MD This examination was interpreted and the report reviewed and electronically signed by: ANITA STINSON MD on May 01 2023 9:40AM EST [id number] Normal [facility] US BIOPSY BREAST RTon [facility] US BIOPSY BREAST RT * * *Final Report* * * DATE OF EXAM: Apr 24 2023 2:12PM [facility] 0598 - [facility] US BIOPSY BREAST RT / PROCEDURE REASON: Mass of upper inner quadrant of right breast * * * * Physician Interpretation * * * * #[id number] - [facility] US BIOPSY BREAST RT ULTRASOUND GUIDED BIOPSY RIGHT BREAST WITH MARKING DEVICE INSERTED: 04/24/2023 HISTORY: Mass Of Upper Inner Quadrant Of Right Breast. Correlation is made to exams dated: 04/24/2023 ultrasound - [facility], 04/17/2023 mammogram, 04/17/2023 ultrasound - [facility], and 04/17/2023 ultrasound - [facility]. PATIENT CONSENT: The risks, benefits and [...] for stability. Anita Stinson M.D. mf/:05/01/2023 09:43:14 Apartment Leasing Specialist(s): Bernadette Cleary [facility] Multiple national specialty organizations have released breast cancer screening guidelines for women at average risk for developing breast cancer - guidelines that are based on both evidence and opinion, yet differ on when to start and how often to screen for breast cancer. With representation from Breast Imaging, Internal Medicine, Women's Health, Family Medicine, and Medical/Surgical Oncology, the [facility] has carefully reviewed the data and [...] their providers when to stop screening mammograms. Architectural Inspector: Nathanael Transcribe Date/Time: Apr 24 2023 2:11P Dictated by : ANITA STINSON MD This examination was interpreted and the report reviewed and electronically signed by: ANITA STINSON MD on May 01 2023 9:43AM EST [id number] Normal [facility] [employer] BREAST LTD LTon 04-24 [employer] BREAST LTD LT * * *Final Report* * * DATE OF EXAM: Apr 24 2023 2:12PM RHW 0593 - [employer] BREAST Granify LT / PROCEDURE REASON: Mass of upper outer quadrant of left breast * * * * Physician Interpretation * * * * #[id number] - [employer] BREAST Granify LT LIMITED ULTRASOUND OF LEFT BREAST: 04/24/2023 HISTORY: Mass Of Upper Outer Quadrant Of Left Breast. RESULT: Comparison is made to exams dated: 04/17/2023 ultrasound, 04/17/2023 mammogram - [facility], and 04/17/2023 ultrasound - [facility]. Color flow ultrasound of the left [...] reported separately. Anita Stinson M.D. mf/:04/24/2023 15:43:07 Apartment Leasing Specialist(s): Bernadette Cleary, [facility] Ultrasound BI-RADS: 4 Suspicious finding - Biopsy [...] Medicine, and Medical/Surgical Oncology, the [facility] has carefully reviewed the data and [...] their providers when to stop screening mammograms. Architectural Inspector: Nathanael Transcribe Date/Time: Apr 24 2023 2:11P Dictated by : ANITA STINSON MD This examination was interpreted and the report reviewed and electronically signed by: ANITA STINSON MD on Apr 24 2023 3:43PM EST [id number] [facility] US BREAST LTD RTon 04-24 [facility] US BREAST LTD RT * * *Final Report* * * DATE OF EXAM: Apr 24 2023 2:12PM RHW [id number] - [facility] US BREAST LTD RT / PROCEDURE REASON: Mass of upper inner quadrant of right breast * * * * Physician Interpretation * * * * #[id number] - [facility] US BREAST LTD RT LIMITED ULTRASOUND OF RIGHT BREAST: 04/24/2023 HISTORY: Mass Of Upper Inner Quadrant Of Right Breast. RESULT: Comparison is made to exams dated: 04/17/2023 ultrasound - [facility], 04/17/2023 ultrasound - [facility], and 04/17/2023 mammogram - [facility]. Color flow ultrasound of the right breast [...] reported separately. Anita Stinson M.D. mf/:04/24/2023 15:48:48 Apartment Leasing Specialist(s): Bernadette Cleary, [facility] Ultrasound BI-RADS: 4 Suspicious finding - Biopsy [...] Medicine, and Medical/Surgical Oncology, the [facility] has carefully reviewed the data and [...] their providers when to stop screening mammograms. Architectural Inspector: Nathanael Transcribe Date/Time: Apr 24 2023 2:11P Dictated by : ANITA STINSON MD This examination was interpreted and the report reviewed and electronically signed by: ANITA STINSON MD on Apr 24 2023 3:48PM EST [id number] [facility] SURGICAL PATHOLOGYon 024 CASE REPORT [facility] Comment on above: Order Comment: Speci men Type: TISSUE SPECIMEN Ordering Facility: [facility] Address: [address] [place] [address] Result Comment: Surg [facility] Pathology Report Case: [id number] Authorizing Provider: Keila Christina DO Collected: 04/24/2023 01:26 PM Ordering Location: MR [facility] Received: 04/24/2023 02:23 PM RADIOLOGY Pathologist: Cy Hassan DO Specimens: A) - BREAST CORE BIOPSY LEFT, Left breast core bx, 1 o'clock 4 cm FTN, out @ 1326, formalin @ 1326 B) - BREAST CORE BIOPSY RIGHT, Right breast core bx, 1 o'clock 4 cm FTN, out @ 1345, formalin @ 1345 Performed By: #### S #### [facility] CLIA [id number] [address] [place], [place] [id number] [facility] CLINICAL HISTORY [facility] Comment on above: Order Comment: Speci men Type: TISSUE SPECIMEN Ordering Facility: [facility] Address: [address] [place] [address] Result Comment: Left -Unspecified lump in the left breast, upper outer quadrant [N63.21] Right-Unspecified lump in the right breast, upper inner quadrant [N63.12] Performed By: #### S #### [facility] CLIA [id number] [address] [place], [place] [id number] [facility] DIAGNOSIS COMMENT Normal [facility] Comment on above: Order Comment: [place] [facility] Type: TISSUE SPECIMEN Ordering Facility: [facility] Address: [address] [place] [address] Result Comment: A. I mmunohistochemical stains are performed on the block at [facility] to further characterize the process and demonstrate the following (valid controls): Tumor cells stain negatively for Cytokeratin 7 with strong positive staining for GATA3 and E-cadherin supportive of invasive ductal carcinoma. D2-40 highlights endothelial lined spaces containing tumor. Additionally, ER/IL/HER2/patricia biomarkers are performed on the block at [facility] with results reported in the final diagnosis field. Results can also be viewed under linked orders: Breast markers: [id number]. Tumor size: 5 mm maximum dimension in this limited core biopsy specimen. Modified Orange histologic score: Tubular formation, score: 3; nuclear pleomorphism, score: 3; mitoses, score: 2; total score: 8, poorly differentiated, Grade 3. B. Immunohistochemical stains are performed on the block at [facility] to further characterize the process and demonstrate the following (valid controls): Cytokeratin AE1/AE3, p63, ER all show negative staining. Morphology and immunophenotype are supportive of the diagnosis. Laboratory Developed Test (LDT) Disclaimer: Performance characteristics of immunohistochemical, immunofluorescent and chromogenic in-situ hybridization tests have been determined by the performing laboratory within [facility]???s [facility] [place] ([facility], [facility], [facility], [facility], [facility], [facility], or [facility]) in a manner consistent with CLIA requirements. One or more of these tests have not been cleared or approved by the FDA. [facility] is regulated under CLIA as qualified to perform high-complexity testing. These tests are used for clinical purposes. They should not be regarded as investigational or for research. Positive and negative controls stain appropriately. Performed By: #### S #### [facility] CLIA [id number] [address] [place] [address] FINAL DIAGNOSIS [facility] Comment on above: Order Comment: Speci men Type: TISSUE SPECIMEN Ordering Facility: [facility] Address: [address] [place] [address] Result Comment: A. L eft breast at [...] See comment. Performed By: #### S #### [facility] CLIA [id number] [address] [place] [address] [facility] Comment on above: Order Comment: Speci men Type: TISSUE SPECIMEN Ordering Facility: [facility] Address: [address] [place] [address] Result Comment: Diag nostic interpretation performed at [facility], [address] [place] [address] CLIA# [id number] [address] Reporter: Mary Orr M.D. Performed By: #### S #### [facility] CLIA [id number] [address] [place] [address] GROSS DESCRIPTION [facility] Comment on above: Order Comment: [place] vill[place] Type: TISSUE SPECIMEN Ordering Facility: [facility] Address: [address] [place], [place] [address] Result Comment: A. B REAST CORE BIOPSY LEFT Received in formalin and designated left breast core biopsy 1:00 4 cm FTN. The specimen consists of 3 zaman needle [...] BIOPSY RIGHT Received in formalin and designated right breast core biopsy 1:00 4 cm FTN. The specimen consists of 3 zaman-red needle cores ranging in size from 1.5 x 0.2 x 0.2 cm to 1.7 x 0.2 x 0.2 cm. The specimen is entirely submitted in cassette B1. The specimen is removed from the patient on April 24, 2023 at 1345 hours and placed in formalin at 1345 hours. [place] [address] CLIA#[id number] [facility] 04/24/23 3:03 PM Performed By: #### S #### [facility] CLIA [id number] [address] [place] [address] STATES OF [facility] MICROSCOPIC DESCRIPTION [facility] Comment on above: Order Comment: [place] vill[place] Type: TISSUE SPECIMEN Ordering Facility: [facility] Address: [address] [place] [address] Result Comment: Four H&E stained slides and ten IHC stained slides examined. Intradepartmental consultation with Mary Orr M.D. (part A). Performed By: #### S #### [facility] CLIA [id number] [address] [place] [address] OF KENYA CNPFrancisca 04-18-2023 CNPN Telephone ([employer]) CARRIE HERBERT ([id number]) 1960 F Date Time Provider Department 04/18/23 KEILA CHRISTINA During your visit today, we recorded the following information about you: Paulina Linda 04/18/2023 11:33 AM Signed Patient called- Spoke to Ermelinda 04/17/2023. Would like to know if things are still moving forward with the biopsy. Allergies As of Date: 04/18/2023 Noted Allergy Reaction BACTRIM (SULFAMETHOXAZOLE) 12/03/2013 8 - GI Upset TRIMETHOPRIM 11/27/2019 14 - Other: See Comments Date Reviewed: 04/15/2023 Reviewed by: Kenn Hartman LPN - Fully Assessed Reason for Visit: Patient Question [1477] Cmt: Biopsy question Prescriptions as of 04/18/2023 [...] 250 mg by mouth once daily. - B.animalis,bifid,infantis,lo ng (PROBIOTIC 4X ORAL) Take 1 tablet by [...] Encounter Status:Closed by PAULINA LINDA on 04/18/23 [facility]) CARRIE HERBERT ([id number]) 1960 F Date Time Provider Department 04/17/23 KEILA CHRISTINA During your visit today, we recorded the following information about you: Keila Christina, 04/17/2023 2:44 PM Signed Called patient. 2nd [...] 250 mg by mouth once daily. - B.animalis,bifid,infantis,lo ng (PROBIOTIC 4X ORAL) Take 1 tablet by [...] Encounter Status:Closed by KEILA CHRISTINA on 04/17/23 Normal [facility] Basophil percentageOrdered B y: Hellen Zhu on 04-09-2023 Basophil percentage < 1.0 mg/dL 0.55-1.02 [facility] No Panel InformationOrdered By: Hellen Zhu on 04-09-2023 Bedside Estimated GFR (eGFR) > 60.0000 mL/min >60 [facility] CNPFrancisca 03-20-2023 CNPN Telephone ([employer]) CARRIE HERBERT ([id number]) 1960 F Date Time Provider Department 03/20/23 [...] patient, advised patient MRI order is in [facility]. Patient is to schedule MRI. Patient verbalized [...] [Z85.3] Order(s):CONSULT TO ONCOLOGY [9023] Order #: [id number]: 1 FUTURE Prescriptions as of 03/21/2023 - [...] 250 mg by mouth once daily. - B.animalis,bifid,infantis,lo ng (PROBIOTIC 4X ORAL) Take by mouth once daily. - Potassium 99 mg tab Take by mouth. - PAXIL 30 MG TAB Take 30 mg by mouth once daily. Meds Comments as of 03/03/2009: Problem List As Of Date 03/20/2023 Noted Resolved CONSTIPATION NOS [K59.00] 09/19/2006 Rectal bleeding [K62.5] Encounter Status:Closed by VALE CARPENTER on 03/20/23 [facility] Basophil percentageOrdered B y: Hellen Lafleur on 01-21-2023 Chloride [Moles/Vol] 105 mmol/L 98-107 [facility] Cholesterol [Mass/Vol] 208 mg/dL <200 [facility] Comment on above: <200 mg/dL Desirable 200-240 mg/dL Borderline >240 mg/dL High Risk Glucose [Mass/Vol] 106 mg/dL 74-106 [facility] Comment on above: Fasting Glucose resu lt from 100 to 125 mg/dL suggests IMPAIRED HOMEOSTASIS per A.D.A. criteria. Potassium [Moles/Vol] 4.2 mmol/L 3.5-5.1 [facility] Sodium [Moles/Vol] 135 mmol/L 136-145 [facility] Triglyceride [Mass/Vol] 59 mg/dL <199 [facility] Comment on above: The drugs N-Acetylcy steine and Metamizole may falsely depress this assay.Serum Triglycerides Reference Interval Normal <150 mg/dL Borderline high 150 - 199 mg/dL High 200 - 499 mg/dL Very High > or = 500 mg/dL Laboratory - Chemistry and C hemistry - challengeOrdered By: Hellen Lafleur on 01-21-2023 CO2 [Moles/Vol] 29.0 mmol/L 21.0-32.0 [facility] Urea nitrogen/Creatinine [Mass ratio] 12.1 mg/mg 10-20 [facility] No Panel InformationOrdered By: Hellen Lafleur on 01-21-2023 Estimated GFR (MDRD) Amer 90 mL/min >60 [facility] Comment on above: GFR Calc Estimated GFR (MDRD) Non-Af Amer 74 mL/min >60 [facility] Comment on above: Non- GFR Calc Vitamin D 25-Hydroxy 38.3 ng/mL [facility] Comment on above: Vitamin D 25(OH) Sta tus Range Deficiency <20 ng/mL (50nmol/L) Insufficiency 20 - 30 ng/mL (50 - 75 nmol/L) Sufficiency 30 - 100 ng/mL (75 - 250 nmol/L) Toxicity >100 ng/mL (>250 nmol/L) Serum or plasma calcium amparo urement (mass/volume)Ordered By: Hellen Lafleur on 01-21-2023 Calcium [Mass/Vol] 9.2 mg/dL 8.5-10.1 [facility] Serum or plasma cholesterol in HDL measurement (mass/volume)Ordered By: Hellen Lafleur on 01-21-2023 Cholesterol in HDL [Mass/Vol] 87 mg/dL >40 [facility] Comment on above: The drugs N-Acetylcy steine and Metamizole may falsely depress this assay. Reference Range HDL <40 mg/dL Low HDL Cholesterol HDL >or= 60 mg/dL High HDL Cholesterol Serum or plasma cholesterol in VLDL measurement (mass/volume)Ordered By: Hellen Lafleur on 01-21-2023 Cholesterol in VLDL [Mass/Vol] 12 mg/dL 5-40 [facility] Serum or plasma creatinine m easurement (mass/volume)Ordered By: Hellen Lafleur on 01-21-2023 Creatinine [Mass/Vol] 0.82 mg/dL 0.55-1.02 [facility] Comment on above: The validity of the calculated GFR & GFRAA in patients over 70 years has not been determined. Clinical correlation is essential. Serum or plasma low density lipoprotein (LDL) cholesterol measurement (mass/volume)Ordered By: Hellen Lafleur on 01-21-2023 Cholesterol in LDL [Mass/Vol] 109 mg/dL 0-130 [facility] Serum or plasma urea nitroge n measurement (mass/volume)Ordered By: Hellen Lafleur on 01-21-2023 Urea nitrogen [Mass/Vol] 10 mg/dL 7-18 [facility] Thin prep Papanicolaou smear with manual screeningOrdered By: Hellen Lafleur on 01-21-2023 Thin prep Papanicolaou smear with manual screening 1 5-15 [facility] Absolute lymphocyte countOrd ered By: Ken Zarco on 08-09-2022 Lymphocytes Auto (Unsp spec) [#/Vol] 1.15 10*3/uL 0.83-4.51 [facility] Basophil percentageOrdered B y: Ken Zarco on 08-09-2022 Basophils/100 WBC (Bld) 0.8 % 0-1 [facility] Chloride [Moles/Vol] 102 mmol/L 98-107 [facility] Eosinophils/100 WBC (Bld) 2.5 % 0-5 [facility] Glucose [Mass/Vol] 107 mg/dL 74-106 [facility] Comment on above: Fasting Glucose resu lt from 100 to 125 mg/dL suggests IMPAIRED HOMEOSTASIS per A.D.A. criteria. Neutrophils (Bld) [#/Vol] 2.9 10*3/uL 2.0-7.7 [facility] Neutrophils/100 WBC (Bld) 61.4 % 47-70 [facility] Potassium [Moles/Vol] 4.0 mmol/L 3.5-5.1 [facility] Sodium [Moles/Vol] 136 mmol/L 136-145 [facility] WBC (Bld) [#/Vol] 4.8 10*3/uL 4.4-11.0 [facility] Blood erythrocytes count (nu mber/volume)Ordered By: Ken Zarco on 08-09-2022 RBC (Bld) [#/Vol] 4.30 10*6/uL 4.2-5.4 [facility] Blood hemoglobin measurement (mass/volume)Ordered By: Ken Zarco on 08-09-2022 Hemoglobin (Bld) [Mass/Vol] 12.5 g/dL 12.0-15.0 [facility] Blood lymphocytes/100 leukoc ytesOrdered By: Ken Zarco on 08-09-2022 Lymphocytes/100 WBC (Bld) 24.0 % 19-41 [facility] Blood monocytes/100 leukocyt esOrdered By: Ken Zarco on 08-09-2022 Monocytes/100 WBC (Bld) 10.9 % 0-10 [facility] Blood platelet mean volumeOr dered By: Ken Zarco on 08-09-2022 Platelet mean volume (Bld) [Entitic vol] 9.8 fL 6.2-12.0 [facility] Determination of erythrocyte mean corpuscular volume (MCV)Ordered By: Ken Zarco on 08-09-2022 MCV (RBC) [Entitic vol] 91.2 fL 81-99 [facility] Hematocrit Auto (Bld) [Volum e fraction]Ordered By: Ken Zarco on 08-09-2022 Hematocrit (Bld) [Volume fraction] 39.2 % 37-47 [facility] Laboratory - Chemistry and C hemistry - challengeOrdered By: Ken Zarco on 08-09-2022 CO2 [Moles/Vol] 27.0 mmol/L 21.0-32.0 [facility] Urea nitrogen/Creatinine [Mass ratio] 16.6 mg/mg 10-20 [facility] Laboratory - Hematology and Cell countsOrdered By: Ken Zarco on 08-09-2022 Erythrocyte distribution width (RBC) [Entitic vol] 44.7 fL 35.1-43.9 [facility] Erythrocyte distribution width (RBC) [Ratio] 13.2 % 11.6-14.6 [facility] Immature granulocytes/100 WBC (Bld) 0.400 % 0.0-0.9 [facility] Comment on above: IG% - Immature Granu locytes (promyelocytes, myelocytes and metamyelocytes) > 1% indicates that a LEFT SHIFT is Present. MCH (RBC) [Entitic mass] 29.1 pg 27.0-32.0 [facility] Nucleated RBC/100 WBC (Bld) [Ratio] 0 % 0-5 [facility] MCHC Auto (RBC) [Mass/Vol]Or dered By: Ken Zarco on 08-09-2022 MCHC (RBC) [Mass/Vol] 31.9 g/dL 32-36 [facility] No Panel InformationOrdered By: Ken Zarco on 08-09-2022 Estimated GFR (MDRD) Amer 87 mL/min >60 [facility] Comment on above: GFR Calc Estimated GFR (MDRD) Non-Af Amer 72 mL/min >60 [facility] Comment on above: Non- GFR Calc Platelets bldOrdered By: Gillian Zarco on 08-09-2022 Platelets (Bld) [#/Vol] 282 10*3/uL 150-450 [facility] Serum or plasma calcium amparo urement (mass/volume)Ordered By: Ken Zarco on 08-09-2022 Calcium [Mass/Vol] 8.7 mg/dL 8.5-10.1 [facility] Serum or plasma creatinine m easurement (mass/volume)Ordered By: Ken Zarco on 08-09-2022 Creatinine [Mass/Vol] 0.84 mg/dL 0.55-1.02 [facility] Comment on above: The validity of the calculated GFR & GFRAA in patients over 70 years has not been determined. Clinical correlation is essential. 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 Normal [facility] Op Noteon 04-16-2017 HIM IP Note OR Ethnic Studies Professor Normal [facility] Progress Noteon 04-16-2017 HIM IP Note OR Ethnic Studies Professor Normal [facility] HIM IP Note OR Ethnic Studies Professor Normal [facility] HIM IP Note OR Ethnic Studies Professor Normal [facility] Office Visit: UC: nasal gurpreet marsha 09-05-2016 Documentation of current medications (procedure) Done Invalid Interpretation Code [facility] Work Phone: Protein mass conc Done [facility] Work Phone: Tobacco smoking status NHIS Never Invalid Interpretation Code [facility] Work Phone: Tobacco smoking status NHIS Never smoker [facility] Work Phone: Tobacco use [facility] Never smoker Invalid Interpretation Code [facility] Work Phone: Office Visit: UC: maxillary sinusitison 08-22-2016 Documentation of current medications (procedure) Done Invalid Interpretation Code [facility] Work Phone: Tobacco smoking status NHIS Never Invalid Interpretation Code [facility] Work Phone: Tobacco use [facility] Never smoker Invalid Interpretation Code [facility] Work Phone: Vital Signs Date Time Vital Sign Value Performing Clinician Faci lity 01-10-2025 20:36-0400 Body temperature 99.7 [degF] Dr. Hellen Lafleur MD Work Phone: [facility] 01-10-2025 20:36-0400 Diastolic blood pressure 52 mm[Hg] Dr. Hellen Lafleur MD Work Phone: [facility] 01-10-2025 20:36-0400 Heart rate 85 /min Dr. Hellen Lafleur MD Work Phone: [facility] 01-10-2025 20:36-0400 Respiratory rate 18 /min Dr. Hellen Lafleur MD Work Phone: [facility] 01-10-2025 20:36-0400 SaO2% (BldA) [Mass fraction] 100 % Dr. Hellen Lafleur MD Work Phone: [facility] 01-10-2025 20:36-0400 Systolic blood pressure 112 mm[Hg] Dr. Hellen Lafleur MD Work Phone: [facility] 01-10-2025 15:16-0400 Body height 165.[address] Hellen Lafleur MD Work Phone: [facility] 01-10-2025 15:16-0400 Body mass index (BMI) [Ratio] 20.2 kg/m2 Dr. Hellen Lafleur MD Work Phone: [facility] 01-10-2025 15:16-0400 Body weight 55.[address] Hellen Lafleur MD Work Phone: [facility] 12-08-2024 10:24-0400 Body mass index (BMI) [Ratio] 19.86 kg/m2 Hellen Masci DO Work Phone: [facility] 12-08-2024 10:24-0400 Body temperature 98.1 [degF] Hellen Masci DO Work Phone: [facility] 12-08-2024 10:24-0400 Body weight 54.66 kg Hellen Masci DO Work Phone: [facility] 12-08-2024 10:24-0400 Diastolic blood pressure 62 mm[Hg] Hellen Masci DO Work Phone: [facility] 12-08-2024 10:24-0400 Heart rate 71 /min Hellen Masci DO Work Phone: [facility] 12-08-2024 10:24-0400 SaO2% (BldA) [Mass fraction] 100 % Hellen Masci DO Work Phone: [facility] 12-08-2024 10:24-0400 Systolic blood pressure 109 mm[Hg] Hellen Masci DO Work Phone: [facility] 11-24-2024 12:53-0400 Body mass index (BMI) [Ratio] 20.11 kg/m2 Treatment Wstr Work Phone: [facility] 11-24-2024 12:53-0400 Body temperature 97.81 [degF] Treatment Wstr Work Phone: [facility] 11-24-2024 12:53-0400 Body weight 55.34 kg Treatment Wstr Work Phone: [facility] 11-24-2024 12:53-0400 Diastolic blood pressure 66 mm[Hg] Treatment Wstr Work Phone: [facility] 11-24-2024 12:53-0400 Heart rate 70 /min Treatment Wstr Work Phone: [facility] 11-24-2024 12:53-0400 Respiratory rate 18 /min Treatment Wstr Work Phone: [facility] 11-24-2024 12:53-0400 SaO2% (BldA) [Mass fraction] 99 % Treatment Wstr Work Phone: [facility] 11-24-2024 12:53-0400 Systolic blood pressure 121 mm[Hg] Treatment Wstr Work Phone: [facility] 11-20-2024 15:15-0400 Body mass index (BMI) [Ratio] 20.34 kg/m2 Injection Wstr Work Phone: [facility] 11-20-2024 15:15-0400 Body temperature 98.2 [degF] Injection Wstr Work Phone: [facility] 11-20-2024 15:15-0400 Body weight 55.97 kg Injection Wstr Work Phone: [facility] 11-20-2024 15:15-0400 Diastolic blood pressure 61 mm[Hg] Injection Wstr Work Phone: [facility] 11-20-2024 15:15-0400 Heart rate 79 /min Injection Wstr Work Phone: [facility] 11-20-2024 15:15-0400 SaO2% (BldA) [Mass fraction] 98 % Injection Wstr Work Phone: [facility] 11-20-2024 15:15-0400 Systolic blood pressure 102 mm[Hg] Injection Wstr Work Phone: [facility] 11-19-2024 15:39-0400 Body temperature 98.2 [degF] Injection Wstr Work Phone: [facility] 11-18-2024 11:00-0400 Body temperature 97.39 [degF] Injection Wstr Work Phone: [facility] 11-17-2024 16:29-0400 Body temperature 98.49 [degF] Treatment Wstr Work Phone: [facility] 11-17-2024 16:29-0400 Diastolic blood pressure 64 mm[Hg] Treatment Wstr Work Phone: [facility] 11-17-2024 16:29-0400 Heart rate 74 /min Treatment Wstr Work Phone: [facility] 11-17-2024 16:29-0400 Respiratory rate 14 /min Treatment Wstr Work Phone: [facility] 11-17-2024 16:29-0400 SaO2% (BldA) [Mass fraction] 99 % Treatment Wstr Work Phone: [facility] 11-17-2024 16:29-0400 Systolic blood pressure 109 mm[Hg] Treatment Wstr Work Phone: [facility] 11-17-2024 12:00-0400 Body height 165.9 cm Treatment Wstr Work Phone: [facility] 11-17-2024 12:00-0400 Body mass index (BMI) [Ratio] 20.44 kg/m2 Treatment Wstr Work Phone: [facility] 11-17-2024 12:00-0400 Body weight 56.25 kg Treatment Wstr Work Phone: [facility] 11-16-2024 15:33-0400 Body mass index (BMI) [Ratio] 20.47 kg/m2 Hellen Zhu DO Work Phone: [facility] 11-16-2024 15:33-0400 Body temperature 97.81 [degF] Hellen Zhu DO Work Phone: [facility] 11-16-2024 15:33-0400 Body weight 55.79 kg Hellen Zhu DO Work [facility]: [facility] [facility] 11-16-2024 15:33-0400 Diastolic blood pressure 63 mm[Hg] Hellen Zhu DO Work Phone: [facility] 11-16-2024 15:33-0400 Heart rate 85 /min Hellen Zhu DO Work Phone: [facility] 11-16-2024 15:33-0400 SaO2% (BldA) [Mass fraction] 99 % Hellen Zhu DO Work Phone: [facility] 11-16-2024 15:33-0400 Systolic blood pressure 107 mm[Hg] Hellen Zhu DO Work Phone: [facility] 11-11-2024 14:40-0400 Body temperature 97.81 [degF] Mary Green MD Work Phone: [facility] 11-11-2024 14:40-0400 Heart rate 71 /min Mary Green MD Work Phone: [facility] 11-11-2024 14:40-0400 SaO2% (BldA) [Mass fraction] 99 % Mary Green MD Work Phone: [facility] 11-10-2024 12:36-0400 Body temperature 98.1 [degF] Treatment Wstr Work Phone: [facility] 11-10-2024 12:36-0400 Diastolic blood pressure 58 mm[Hg] Treatment Wstr Work Phone: [facility] 11-10-2024 12:36-0400 Heart rate 73 /min Treatment Wstr Work Phone: [facility] 11-10-2024 12:36-0400 SaO2% (BldA) [Mass fraction] 98 % Treatment Wstr Work Phone: [facility] 11-10-2024 12:36-0400 Systolic blood pressure 105 mm[Hg] Treatment Wstr Work Phone: [facility] 11-09-2024 08:47-0400 Body mass index (BMI) [Ratio] 19.89 kg/m2 Injection Wstr Work Phone: [facility] 11-09-2024 08:47-0400 Body temperature 97.9 [degF] Injection Wstr Work Phone: [facility] 11-09-2024 08:47-0400 Body weight 54.2 kg Injection Wstr Work Phone: [facility] 11-09-2024 08:47-0400 Diastolic blood pressure 60 mm[Hg] Injection Wstr Work Phone: [facility] 11-09-2024 08:47-0400 Heart rate 82 /min Injection Wstr Work Phone: [facility] 11-09-2024 08:47-0400 SaO2% (BldA) [Mass fraction] 99 % Injection Wstr Work Phone: [facility] 11-09-2024 08:47-0400 Systolic blood pressure 101 mm[Hg] Injection Wstr Work Phone: [facility] 11-06-2024 09:23-0400 Body temperature 97.7 [degF] Lab/Port Wstr Work Phone: [facility] 11-06-2024 09:23-0400 Diastolic blood pressure 56 mm[Hg] Lab/Port Wstr Work Phone: [facility] 11-06-2024 09:23-0400 Heart rate 82 /min Lab/Port Wstr Work Phone: [facility] 11-06-2024 09:23-0400 Respiratory rate 18 /min Lab/Port Wstr Work Phone: [facility] 11-06-2024 09:23-0400 SaO2% (BldA) [Mass fraction] 99 % Lab/Port Wstr Work Phone: [facility] 11-06-2024 09:23-0400 Systolic blood pressure 107 mm[Hg] Lab/Port Wstr Work Phone: [facility] 11-05-2024 15:37-0400 Body mass index (BMI) [Ratio] 20.14 kg/m2 Injection Wstr Work Phone: [facility] 11-05-2024 15:37-0400 Body temperature 97.7 [degF] Injection Wstr Work Phone: [facility] 11-05-2024 15:37-0400 Body weight 54.88 kg Injection Wstr Work Phone: [facility] 11-05-2024 15:37-0400 Diastolic blood pressure 60 mm[Hg] Injection Wstr Work Phone: [facility] 11-05-2024 15:37-0400 Heart rate 81 /min Injection Wstr Work Phone: [facility] 11-05-2024 15:37-0400 SaO2% (BldA) [Mass fraction] 97 % Injection Wstr Work Phone: [facility] 11-05-2024 15:37-0400 Systolic blood pressure 99 mm[Hg] Injection Wstr Work Phone: [facility] 11-04-2024 13:13-0400 Body height 165.1 cm Mary Green MD Work Phone: [facility] 11-04-2024 13:13-0400 Body mass index (BMI) [Ratio] 20.3 kg/m2 Mary Green MD Work Phone: [facility] 11-04-2024 13:13-0400 Body temperature 98.2 [degF] Mary Green MD Work Phone: [facility] 11-04-2024 13:13-0400 Body weight 55.34 kg Mary Green MD Work Phone: [facility] 11-04-2024 13:13-0400 Diastolic blood pressure 58 mm[Hg] Mary Green MD Work Phone: [facility] 11-04-2024 13:13-0400 Heart rate 88 /min Mary Green MD Work Phone: [facility] 11-04-2024 13:13-0400 Respiratory rate 14 /min Mary Green MD Work Phone: [facility] 11-04-2024 13:13-0400 SaO2% (BldA) [Mass fraction] 99 % Mary Green MD Work Phone: [facility] 11-04-2024 13:13-0400 Systolic blood pressure 106 mm[Hg] Mary Green MD Work Phone: [facility] 11-03-2024 13:00-0400 Body mass index (BMI) [Ratio] 20.39 kg/m2 Treatment Wstr Work Phone: [facility] 11-03-2024 13:00-0400 Body temperature 99.1 [degF] Treatment Wstr Work Phone: [facility] 11-03-2024 13:00-0400 Body weight 55.11 kg Treatment Wstr Work Phone: [facility] 11-03-2024 13:00-0400 Diastolic blood pressure 52 mm[Hg] Treatment Wstr Work Phone: [facility] 11-03-2024 13:00-0400 Heart rate 82 /min Treatment Wstr Work Phone: [facility] 11-03-2024 13:00-0400 Respiratory rate 16 /min Treatment Wstr Work Phone: [facility] 11-03-2024 13:00-0400 SaO2% (BldA) [Mass fraction] 99 % Treatment Wstr Work Phone: [facility] 11-03-2024 13:00-0400 Systolic blood pressure 99 mm[Hg] Treatment Wstr Work Phone: [facility] 11-02-2024 11:11-0400 Body temperature 99.39 [degF] Injection Wstr Work Phone: [facility] 10-28-2024 13:41-0400 Body mass index (BMI) [Ratio] 20.64 kg/m2 Melony Davis MD Work Phone: [facility] 10-28-2024 13:41-0400 Body temperature 99 [degF] Melony Davis MD Work Phone: [facility] 10-28-2024 13:41-0400 Body weight 55.79 kg Melony Davis MD Work Phone: [facility] 10-28-2024 13:41-0400 Diastolic blood pressure 68 mm[Hg] Melony Davis MD Work Phone: [facility] 10-28-2024 13:41-0400 Heart rate 71 /min Melony Davis MD Work Phone: [facility] 10-28-2024 13:41-0400 SaO2% (BldA) [Mass fraction] 99 % Melony Davis MD Work Phone: [facility] 10-28-2024 13:41-0400 Systolic blood pressure 124 mm[Hg] Melony Davis MD Work Phone: [facility] 10-23-2024 09:31-0400 Body temperature 97.81 [degF] Injection Wstr Work Phone: [facility] 10-22-2024 10:13-0400 Body temperature 98.29 [degF] Injection Wstr Work Phone: [facility] 10-21-2024 10:25-0400 Body mass index (BMI) [Ratio] 20.64 kg/m2 Injection Wstr Work Phone: [facility] 10-21-2024 10:25-0400 Body temperature 98.01 [degF] Injection Wstr Work Phone: [facility] 10-21-2024 10:25-0400 Body weight 55.79 kg Injection Wstr Work Phone: [facility] 10-21-2024 10:25-0400 Diastolic blood pressure 58 mm[Hg] Injection Wstr Work Phone: [facility] 10-21-2024 10:25-0400 Heart rate 69 /min Injection Wstr Work Phone: [facility] 10-21-2024 10:25-0400 SaO2% (BldA) [Mass fraction] 98 % Injection Wstr Work Phone: [facility] 10-21-2024 10:25-0400 Systolic blood pressure 102 mm[Hg] Injection Wstr Work Phone: [facility] 10-20-2024 08:45-0400 Body mass index (BMI) [Ratio] 20.81 kg/m2 Hellen Masci DO Work Phone: [facility] 10-20-2024 08:45-0400 Body temperature 97.11 [degF] Hellen Masci DO Work Phone: [facility] 10-20-2024 08:45-0400 Body weight 56.25 kg Hellen Masci DO Work Phone: [facility] 10-20-2024 08:45-0400 Diastolic blood pressure 61 mm[Hg] Hellen Masci DO Work Phone: [facility] 10-20-2024 08:45-0400 Heart rate 68 /min Hellen Masci DO Work Phone: [facility] 10-20-2024 08:45-0400 SaO2% (BldA) [Mass fraction] 100 % Hellen Masci DO Work Phone: [facility] 10-20-2024 08:45-0400 Systolic blood pressure 99 mm[Hg] Hellen Masci DO Work Phone: [facility] 10-13-2024 09:47-0400 Body mass index (BMI) [Ratio] 20.81 kg/m2 Treatment Wstr Work Phone: [facility] 10-13-2024 09:47-0400 Body temperature 97.81 [degF] Treatment Wstr Work Phone: [facility] 10-13-2024 09:47-0400 Body weight 56.25 kg Treatment Wstr Work Phone: [facility] 10-13-2024 09:47-0400 Diastolic blood pressure 62 mm[Hg] Treatment Wstr Work Phone: [facility] 10-13-2024 09:47-0400 Heart rate 74 /min Treatment Wstr Work Phone: [facility] 10-13-2024 09:47-0400 Respiratory rate 16 /min Treatment Wstr Work Phone: [facility] 10-13-2024 09:47-0400 SaO2% (BldA) [Mass fraction] 100 % Treatment Wstr Work Phone: [facility] 10-13-2024 09:47-0400 Systolic blood pressure 108 mm[Hg] Treatment Wstr Work Phone: [facility] 10-12-2024 15:39-0400 Body temperature 98.2 [degF] Injection Wstr Work Phone: [facility] 10-09-2024 14:10-0400 Body temperature 98.8 [degF] Injection Wstr Work Phone: [facility] 09-29-2024 09:48-0400 Body mass index (BMI) [Ratio] 20.73 kg/m2 Treatment Wstr Work Phone: [facility] 09-29-2024 09:48-0400 Body temperature 97.3 [degF] Treatment Wstr Work Phone: [facility] 09-29-2024 09:48-0400 Body weight 56.02 kg Treatment Wstr Work Phone: [facility] 09-29-2024 09:48-0400 Diastolic blood pressure 63 mm[Hg] Treatment Wstr Work Phone: [facility] 09-29-2024 09:48-0400 Heart rate 77 /min Treatment Wstr Work Phone: [facility] 09-29-2024 09:48-0400 SaO2% (BldA) [Mass fraction] 98 % Treatment Wstr Work Phone: [facility] 09-29-2024 09:48-0400 Systolic blood pressure 106 mm[Hg] Treatment Wstr Work Phone: [facility] 09-28-2024 08:40-0400 Body height 164.4 cm Yoni Mancera MD Work Phone: [facility] 09-28-2024 08:40-0400 Body mass index (BMI) [Ratio] 20.24 kg/m2 Yoni Mancera MD Work Phone: [facility] 09-28-2024 08:40-0400 Body temperature 97.81 [degF] Yoni Mancera MD Work Phone: [facility] 09-28-2024 08:40-0400 Body weight 54.7 kg Yoni Mancera MD Work Phone: [facility] 09-28-2024 08:40-0400 Diastolic blood pressure 57 mm[Hg] Yoni Mancera MD Work Phone: [facility] 09-28-2024 08:40-0400 Heart rate 69 /min Yoni Mancera MD Work Phone: [facility] 09-28-2024 08:40-0400 Respiratory rate 18 /min Yoni Mancera MD Work Phone: [facility] 09-28-2024 08:40-0400 SaO2% (BldA) [Mass fraction] 100 % Yoni Mancera MD Work Phone: [facility] 09-28-2024 08:40-0400 Systolic blood pressure 115 mm[Hg] Yoni Mancera MD Work Phone: [facility] 09-22-2024 08:08-0400 Body temperature 97.5 [degF] Treatment Wstr Work Phone: [facility] 09-22-2024 08:08-0400 Diastolic blood pressure 73 mm[Hg] Treatment Wstr Work Phone: [facility] 09-22-2024 08:08-0400 Heart rate 58 /min Treatment Wstr Work Phone: [facility] 09-22-2024 08:08-0400 SaO2% (BldA) [Mass fraction] 100 % Treatment Wstr Work Phone: [facility] 09-22-2024 08:08-0400 Systolic blood pressure 131 mm[Hg] Treatment Wstr Work Phone: [facility] 09-21-2024 15:22-0400 Body mass index (BMI) [Ratio] 20.24 kg/m2 Hellen Santosi DO Work Phone: [facility] 09-21-2024 15:22-0400 Body temperature 98.49 [degF] Hellen Santosi DO Work Phone: [facility] 09-21-2024 15:22-0400 Body weight 56.02 kg Hellen José Antonioi DO Work Phone: [facility] 09-21-2024 15:22-0400 Diastolic blood pressure 82 mm[Hg] Hellen Santosi DO Work Phone: [facility] 09-21-2024 15:22-0400 Heart rate 69 /min Hellen Santosi DO Work Phone: [facility] 09-21-2024 15:22-0400 SaO2% (BldA) [Mass fraction] 100 % Hellen Santosi DO Work Phone: [facility] 09-21-2024 15:22-0400 Systolic blood pressure 144 mm[Hg] Hellen Santosi DO Work Phone: [facility] 09-08-2024 11:00-0400 Body mass index (BMI) [Ratio] 20.16 kg/m2 Treatment Wstr Work Phone: [facility] 09-08-2024 11:00-0400 Body temperature 98.6 [degF] Treatment Wstr Work Phone: [facility] 09-08-2024 11:00-0400 Body weight 55.79 kg Treatment Wstr Work Phone: [facility] 09-08-2024 11:00-0400 Diastolic blood pressure 62 mm[Hg] Treatment Wstr Work Phone: [facility] 09-08-2024 11:00-0400 Heart rate 70 /min Treatment Wstr Work Phone: [facility] 09-08-2024 11:00-0400 Respiratory rate 14 /min Treatment Wstr Work Phone: [facility] 09-08-2024 11:00-0400 SaO2% (BldA) [Mass fraction] 100 % Treatment Wstr Work Phone: [facility] 09-08-2024 11:00-0400 Systolic blood pressure 113 mm[Hg] Treatment Wstr Work Phone: [facility] 09-01-2024 11:19-0400 Body mass index (BMI) [Ratio] 20.24 kg/m2 Treatment Wstr Work Phone: [facility] 09-01-2024 11:19-0400 Body temperature 97.11 [degF] Treatment Wstr Work Phone: [facility] 09-01-2024 11:19-0400 Body weight 56.02 kg Treatment Wstr Work Phone: [facility] 09-01-2024 11:19-0400 Diastolic blood pressure 66 mm[Hg] Treatment Wstr Work Phone: [facility] 09-01-2024 11:19-0400 Heart rate 66 /min Treatment Wstr Work Phone: [facility] 09-01-2024 11:19-0400 Respiratory rate 14 /min Treatment Wstr Work Phone: [facility] 09-01-2024 11:19-0400 SaO2% (BldA) [Mass fraction] 100 % Treatment Wstr Work Phone: [facility] 09-01-2024 11:19-0400 Systolic blood pressure 118 mm[Hg] Treatment Wstr Work Phone: [facility] 08-25-2024 11:09-0400 Body temperature 97 [degF] Treatment Wstr Work Phone: [facility] 08-25-2024 11:09-0400 Diastolic blood pressure 60 mm[Hg] Treatment Wstr Work Phone: [facility] 08-25-2024 11:09-0400 Heart rate 59 /min Treatment Wstr Work Phone: [facility] 08-25-2024 11:09-0400 SaO2% (BldA) [Mass fraction] 97 % Treatment Wstr Work Phone: [facility] 08-25-2024 11:09-0400 Systolic blood pressure 111 mm[Hg] Treatment Wstr Work Phone: [facility] 08-24-2024 14:47-0400 Body mass index (BMI) [Ratio] 20.4 kg/m2 Hellen Masci DO Work Phone: [facility] 08-24-2024 14:47-0400 Body temperature 98.91 [degF] Hellen Masci DO Work Phone: [facility] 08-24-2024 14:47-0400 Body weight 56.47 kg Hellen Masci DO Work Phone: [facility] 08-24-2024 14:47-0400 Diastolic blood pressure 55 mm[Hg] Hellen Masci DO Work Phone: [facility] 08-24-2024 14:47-0400 Heart rate 65 /min Hellen Masci DO Work Phone: [facility] 08-24-2024 14:47-0400 SaO2% (BldA) [Mass fraction] 100 % Hellen Masci DO Work Phone: [facility] 08-24-2024 14:47-0400 Systolic blood pressure 109 mm[Hg] Hellen Masci DO Work Phone: [facility] 08-04-2024 10:56-0400 Body mass index (BMI) [Ratio] 20.32 kg/m2 Treatment Wstr Work Phone: [facility] 08-04-2024 10:56-0400 Body temperature 97.39 [degF] Treatment Wstr Work Phone: [facility] 08-04-2024 10:56-0400 Body weight 56.25 kg Treatment Wstr Work Phone: [facility] 08-04-2024 10:56-0400 Diastolic blood pressure 53 mm[Hg] Treatment Wstr Work Phone: [facility] 08-04-2024 10:56-0400 Heart rate 70 /min Treatment Wstr Work Phone: [facility] 08-04-2024 10:56-0400 SaO2% (BldA) [Mass fraction] 99 % Treatment Wstr Work Phone: [facility] 08-04-2024 10:56-0400 Systolic blood pressure 106 mm[Hg] Treatment Wstr Work Phone: [facility] 07-28-2024 10:46-0400 Body mass index (BMI) [Ratio] 20.32 kg/m2 Treatment Wstr Work Phone: [facility] 07-28-2024 10:46-0400 Body temperature 97.59 [degF] Treatment Wstr Work Phone: [facility] 07-28-2024 10:46-0400 Body weight 56.25 kg Treatment Wstr Work Phone: [facility] 07-28-2024 10:46-0400 Diastolic blood pressure 55 mm[Hg] Treatment Wstr Work Phone: [facility] 07-28-2024 10:46-0400 Heart rate 72 /min Treatment Wstr Work Phone: [facility] 07-28-2024 10:46-0400 SaO2% (BldA) [Mass fraction] 100 % Treatment Wstr Work Phone: [facility] 07-28-2024 10:46-0400 Systolic blood pressure 122 mm[Hg] Treatment Wstr Work Phone: [facility] 07-23-2024 14:22-0400 Body mass index (BMI) [Ratio] 20.12 kg/m2 Mary Green MD Work Phone: [facility] 07-23-2024 14:22-0400 Body temperature 97.81 [degF] Mary Green MD Work Phone: [facility] 07-23-2024 14:22-0400 Body weight 55.7 kg Mary Green MD Work Phone: [facility] 06-01-2024 13:05-0400 Body mass index (BMI) [Ratio] 20.72 kg/m2 Kala Kaba Work Phone: [facility] 06-01-2024 13:05-0400 Body temperature 98.2 [degF] Kala Kaba Work Phone: [facility] 06-01-2024 13:05-0400 Body weight 56.47 kg Kala Kaba Work Phone: [facility] 06-01-2024 13:05-0400 Diastolic blood pressure 56 mm[Hg] Kala Kaba Work Phone: [facility] 06-01-2024 13:05-0400 Heart rate 74 /min Kala Kaba Work Phone: [facility] 06-01-2024 13:05-0400 SaO2% (BldA) [Mass fraction] 99 % Kala Kaba Work Phone: [facility] 06-01-2024 13:05-0400 Systolic blood pressure 107 mm[Hg] Kala Kaba Work Phone: [facility] 04-29-2024 13:10-0500 Diastolic blood pressure 80 mm[Hg] Dr. Alec Kong MD Work Phone: [facility] 04-29-2024 13:10-0500 Heart rate 68 /min Dr. Alec Kong MD Work Phone: [facility] 04-29-2024 13:10-0500 Respiratory rate 18 /min Dr. Alec Kong MD Work Phone: [facility] 04-29-2024 13:10-0500 SaO2% (BldA) [Mass fraction] 100 % Dr. Alec Kong MD Work Phone: [facility] 04-29-2024 13:10-0500 Systolic blood pressure 134 mm[Hg] Dr. Alec Kong MD Work Phone: [facility] 02-25-2024 14:17-0500 Body temperature 97.2 [degF] Treatment Wstr Work Phone: [facility] 02-25-2024 14:17-0500 Diastolic blood pressure 50 mm[Hg] Treatment Wstr Work Phone: [facility] 02-25-2024 14:17-0500 Heart rate 76 /min Treatment Wstr Work Phone: [facility] 02-25-2024 14:17-0500 SaO2% (BldA) [Mass fraction] 98 % Treatment Wstr Work Phone: [facility] 02-25-2024 14:17-0500 Systolic blood pressure 108 mm[Hg] Treatment Wstr Work Phone: [facility] 02-24-2024 14:08-0500 Body mass index (BMI) [Ratio] 20.14 kg/m2 Hellen Masci DO Work Phone: [facility] 02-24-2024 14:08-0500 Body temperature 99 [degF] Hellen Masci DO Work Phone: [facility] 02-24-2024 14:08-0500 Body weight 54.88 kg Hellen Masci DO Work Phone: [facility] 02-24-2024 14:08-0500 Diastolic blood pressure 60 mm[Hg] Hellen Masci DO Work Phone: [facility] 02-24-2024 14:08-0500 Heart rate 80 /min Hellen Masci DO Work Phone: [facility] 02-24-2024 14:08-0500 SaO2% (BldA) [Mass fraction] 97 % Hellen Masci DO Work Phone: [facility] 02-24-2024 14:08-0500 Systolic blood pressure 103 mm[Hg] Hellen Masci DO Work Phone: [facility] 02-24-2024 14:01-0500 Body mass index (BMI) [Ratio] 20.14 kg/m2 Lab/Port Wstr Work Phone: [facility] 02-24-2024 14:050 Body weight 54.88 kg Lab/Port Wstr Work Phone: [facility] 01-14-2024 14:290400 Body temperature 98.1 [degF] Treatment Wstr Work Phone: [facility] 01-14-2024 14:290400 Diastolic blood pressure 59 mm[Hg] Treatment Wstr Work Phone: [facility] 01-14-2024 14:29-0400 Heart rate 68 /min Treatment Wstr Work Phone: [facility] 01-14-2024 14:290400 Respiratory rate 16 /min Treatment Wstr Work Phone: [facility] 01-14-2024 14:290400 SaO2% (BldA) [Mass fraction] 98 % Treatment Wstr Work Phone: [facility] 01-14-2024 14:29-0400 Systolic blood pressure 104 mm[Hg] Treatment Wstr Work Phone: [facility] 01-13-2024 13:24-0400 Body mass index (BMI) [Ratio] 20.47 kg/m2 Kalasharon Kaba Work Phone: [facility] 01-13-2024 13:24-0400 Body temperature 97.5 [degF] Kalaplacido Kaba Work Phone: [facility] 01-13-2024 13:24-0400 Body weight 55.79 kg Kala Kaba Work Phone: [facility] 01-13-2024 13:24-0400 Diastolic blood pressure 64 mm[Hg] Kala Kaba Work Phone: [facility] 01-13-2024 13:24-0400 Heart rate 62 /min Kala Kaba Work Phone: [facility] 01-13-2024 13:24-0400 SaO2% (BldA) [Mass fraction] 100 % Kalaplacido Kaba Work Phone: [facility] 01-13-2024 13:24-0400 Systolic blood pressure 111 mm[Hg] Kala Kaba Work Phone: [facility] 12-23-2023 14:41-0400 Body temperature 98.01 [degF] Melony Davis MD Work Phone: [facility] 12-23-2023 14:41-0400 Diastolic blood pressure 60 mm[Hg] Melony Davis MD Work Phone: [facility] 12-23-2023 14:41-0400 Heart rate 60 /min Melony Davis MD Work Phone: [facility] 12-23-2023 14:41-0400 Respiratory rate 15 /min Melony Davis MD Work Phone: [facility] 12-23-2023 14:41-0400 SaO2% (BldA) [Mass fraction] 99 % Melony Davis MD Work Phone: [facility] 12-23-2023 14:41-0400 Systolic blood pressure 114 mm[Hg] Melony Davis MD Work Phone: [facility] 12-17-2023 14:56-0400 Body temperature 97.9 [degF] Melony Davis MD Work Phone: [facility] 12-17-2023 14:56-0400 Diastolic blood pressure 51 mm[Hg] Melony Davis MD Work Phone: [facility] 12-17-2023 14:56-0400 Heart rate 63 /min Melony Davis MD Work Phone: [facility] 12-17-2023 14:56-0400 SaO2% (BldA) [Mass fraction] 99 % Melony Davis MD Work Phone: [facility] 12-17-2023 14:56-0400 Systolic blood pressure 97 mm[Hg] Melony Davis MD Work Phone: [facility] 12-10-2023 14:44-0400 Body temperature 97.7 [degF] Melony Davis MD Work Phone: [facility] 12-10-2023 14:44-0400 Diastolic blood pressure 64 mm[Hg] Melony Davis MD Work Phone: [facility] 12-10-2023 14:44-0400 Heart rate 67 /min Melony Davis MD Work Phone: [facility] 12-10-2023 14:44-0400 SaO2% (BldA) [Mass fraction] 100 % Melony Davis MD Work Phone: [facility] 12-10-2023 14:44-0400 Systolic blood pressure 108 mm[Hg] Melony Davis MD Work Phone: [facility] 12-03-2023 14:37-0400 Body temperature 98.1 [degF] Melony Davis MD Work Phone: [facility] 12-03-2023 14:37-0400 Diastolic blood pressure 58 mm[Hg] Melony Davis MD Work Phone: [facility] 12-03-2023 14:37-0400 Heart rate 65 /min Melony Davis MD Work Phone: [facility] 12-03-2023 14:37-0400 SaO2% (BldA) [Mass fraction] 98 % Melony Davis MD Work Phone: [facility] 12-03-2023 14:37-0400 Systolic blood pressure 106 mm[Hg] Melony Davis MD Work Phone: [facility] 12-02-2023 14:09-0400 Body mass index (BMI) [Ratio] 20.14 kg/m2 Hellen Zhu DO Work Phone: [facility] 12-02-2023 14:09-0400 Body temperature 98.71 [degF] Hellen Zhu DO Work Phone: [facility] 12-02-2023 14:09-0400 Body weight 54.88 kg Hellen Zhu DO Work Phone: [facility] 12-02-2023 14:09-0400 Diastolic blood pressure 57 mm[Hg] Hellen Santosi DO Work Phone: [facility] 12-02-2023 14:09-0400 Heart rate 69 /min Hellen Santosi DO Work Phone: [facility] 12-02-2023 14:09-0400 SaO2% (BldA) [Mass fraction] 99 % Hellen Santosi DO Work Phone: [facility] 12-02-2023 14:09-0400 Systolic blood pressure 103 mm[Hg] Hellen Santosi DO Work Phone: [facility] 12-02-2023 14:00-0400 Body mass index (BMI) [Ratio] 20.22 kg/m2 Lab/Port Wstr Work Phone: [facility] 12-02-2023 14:00-0400 Body weight 55.11 kg Lab/Port Wstr Work Phone: [facility] 11-26-2023 14:42-0400 Body temperature 97.81 [degF] Melony Davis MD Work Phone: [facility] 11-26-2023 14:42-0400 Diastolic blood pressure 65 mm[Hg] Melony Davis MD Work Phone: [facility] 11-26-2023 14:42-0400 Heart rate 65 /min Melony Davis MD Work Phone: [facility] 11-26-2023 14:42-0400 SaO2% (BldA) [Mass fraction] 100 % Melony Davis MD Work Phone: [facility] 11-26-2023 14:42-0400 Systolic blood pressure 115 mm[Hg] Melony Davis MD Work Phone: [facility] 11-19-2023 14:54-0400 Body mass index (BMI) [Ratio] 20.22 kg/m2 Melony Davis MD Work Phone: [facility] 11-19-2023 14:54-0400 Body temperature 97.9 [degF] Melony Davis MD Work Phone: [facility] 11-19-2023 14:54-0400 Body weight 55.11 kg Melony Davis MD Work Phone: [facility] 11-19-2023 14:54-0400 Diastolic blood pressure 59 mm[Hg] Melony Davis MD Work Phone: [facility] 11-19-2023 14:54-0400 Heart rate 65 /min Melony Davis MD Work Phone: [facility] 11-19-2023 14:54-0400 Respiratory rate 16 /min Melony Davis MD Work Phone: [facility] 11-19-2023 14:54-0400 SaO2% (BldA) [Mass fraction] 98 % Melony Davis MD Work Phone: [facility] 11-19-2023 14:54-0400 Systolic blood pressure 117 mm[Hg] Melony Davis MD Work Phone: [facility] 11-12-2023 14:42-0400 Body temperature 98.2 [degF] Melony Davis MD Work Phone: [facility] 11-12-2023 14:42-0400 Diastolic blood pressure 65 mm[Hg] Melony Davis MD Work Phone: [facility] 11-12-2023 14:42-0400 Heart rate 64 /min Melony Davis MD Work Phone: [facility] 11-12-2023 14:42-0400 SaO2% (BldA) [Mass fraction] 99 % Melony Davis MD Work Phone: [facility] 11-12-2023 14:42-0400 Systolic blood pressure 115 mm[Hg] Melony Davis MD Work Phone: [facility] 10-23-2023 14:24-0400 Body temperature 98.8 [degF] Melony Davis MD Work Phone: [facility] 10-23-2023 14:24-0400 Diastolic blood pressure 61 mm[Hg] Melony Davis MD Work Phone: [facility] 10-23-2023 14:24-0400 Heart rate 72 /min Melony Davis MD Work Phone: [facility] 10-23-2023 14:24-0400 SaO2% (BldA) [Mass fraction] 98 % Melony Davis MD Work Phone: [facility] 10-23-2023 14:24-0400 Systolic blood pressure 104 mm[Hg] Melony Davis MD Work Phone: [facility] 10-22-2023 13:17-0400 Body mass index (BMI) [Ratio] 19.72 kg/m2 Treatment Wstr Work Phone: [facility] 10-22-2023 13:17-0400 Body temperature 98.4 [degF] Treatment Wstr Work Phone: [facility] 10-22-2023 13:17-0400 Body weight 53.75 kg Treatment Wstr Work Phone: [facility] 10-22-2023 13:17-0400 Diastolic blood pressure 63 mm[Hg] Treatment Wstr Work Phone: [facility] 10-22-2023 13:17-0400 Heart rate 76 /min Treatment Wstr Work Phone: [facility] 10-22-2023 13:17-0400 Respiratory rate 18 /min Treatment Wstr Work Phone: [facility] 10-22-2023 13:17-0400 Systolic blood pressure 99 mm[Hg] Treatment Wstr Work Phone: [facility] 10-18-2023 15:59-0400 Body mass index (BMI) [Ratio] 19.8 kg/m2 Hellen Zhu DO Work Phone: [facility] 10-18-2023 15:59-0400 Body temperature 97.7 [degF] Hellen Zhu DO Work Phone: [facility] 10-18-2023 15:59-0400 Body weight 53.98 kg Hellen Zhu DO Work Phone: [facility] 10-18-2023 15:59-0400 Diastolic blood pressure 84 mm[Hg] Hellen Santosi DO Work Phone: [facility] 10-18-2023 15:59-0400 Heart rate 60 /min Hellen Santosi DO Work Phone: [facility] 10-18-2023 15:59-0400 SaO2% (BldA) [Mass fraction] 98 % Hellen Santosi DO Work Phone: [facility] 10-18-2023 15:59-0400 Systolic blood pressure 131 mm[Hg] Hellen Santosi DO Work Phone: [facility] 10-02-2023 13:45-0400 Body temperature 97.34 [degF] DR DEBBIE MERINO MD [facility] 10-02-2023 13:45-0400 Diastolic Blood Pressure Non-Invasive 71 mm[Hg] DR DEBBIE MERINO MD [facility] 10-02-2023 13:45-0400 Heart rate 95 /min DR DEBBIE MERINO MD [facility] 10-02-2023 13:45-0400 Respiratory rate 18 /min DR DEBBIE MERINO MD [facility] 10-02-2023 13:45-0400 Systolic Blood Pressure Non-Invasive 118 mm[Hg] DR DEBBIE MERINO MD [facility] 10-02-2023 13:22-0400 Diastolic Blood Pressure Non-Invasive 63 mm[Hg] DR DEBBIE MERINO MD [facility] 10-02-2023 13:22-0400 Heart rate 93 /min DR DEBBIE MERINO MD [facility] 10-02-2023 13:22-0400 Mean blood pressure 84 mm[Hg] DR DEBBIE MERINO MD [facility] 10-02-2023 13:22-0400 Respiratory rate 16 /min DR DEBBIE MERINO MD [facility] 10-02-2023 13:22-0400 Systolic Blood Pressure Non-Invasive 139 mm[Hg] DR DEBBIE MERINO MD [address] 10-02-2023 13:06-0400 Diastolic Blood Pressure Non-Invasive 75 mm[Hg] DR DEBBIE MERINO MD [address] [place] [id number] 10-02-2023 13:06-0400 Heart rate 106 /min DR DEBBIE MERINO MD [address] 10-02-2023 13:06-0400 Mean blood pressure 93 mm[Hg] DR DEBBIE MERINO MD [address] 10-02-2023 13:06-0400 Respiratory rate 16 /min DR DEBBIE MERINO MD [address] 10-02-2023 13:06-0400 Systolic Blood Pressure Non-Invasive 146 mm[Hg] DR DEBBIE MERINO MD [facility] 10-02-2023 12:51-0400 Body temperature 97.88 [degF] DR DEBBIE MERINO MD [facility] 10-02-2023 12:51-0400 Heart rate 101 /min DR DEBBIE MERINO MD [facility] 10-02-2023 12:51-0400 Mean blood pressure 96 mm[Hg] DR DEBBIE MERINO MD [address] [place] [address] 10-02-2023 12:45-0400 Respiratory Rate - Anes 0 br/min DR DEBBIE MERINO MD [facility] 10-02-2023 12:40-0400 Respiratory Rate - Anes 6 br/min DR DEBBIE MERINO MD [facility] 10-02-2023 12:35-0400 Respiratory Rate - Anes 28 br/min DR DEBBIE MERINO MD [facility] 10-02-2023 12:25-0400 Body temperature 97.47 [degF] DR DEBBIE MERINO MD [address] [place] [address] 10-02-2023 12:20-0400 Body temperature 97.34 [degF] DR DEBBIE MERINO MD [address] [place] [address] 10-02-2023 12:15-0400 Body temperature 97.14 [degF] DR DEBBIE MERINO MD [address] [place] [address] 10-02-2023 07:31-0400 Body weight 19.08 kg/m2 DR DEBBIE MERINO MD [address] [place] [address] 10-02-2023 07:22-0400 Body height 165.[address] DEBBIE MERINO MD [address] [place] [address] 10-02-2023 07:22-0400 Body temperature 96.62 [degF] DR DEBBIE MERNIO MD [facility] 10-02-2023 07:22-0400 Body weight [address] DEBBIE MERINO MD [address] [place] [address] 10-02-2023 07:22-0400 Heart rate 78 /min DR DEBBIE MERINO MD [address] [place] [address] 09-23-2023 11:47-0400 Blood Pressure Cuff Size DR DEBBIE MERINO MD [address] [place] [address] 09-23-2023 11:47-[address] DEBBIE MERINO MD [address] [place] [address] 09-23-2023 11:47-[address] DEBBIE MERINO MD [address] [place] [address]-01-2024 11:47-0400 Body height [address] DEBBIE MERINO MD [facility] 09-23-2023 11:47-0400 Body temperature 96.98 [degF] DR DEBBIE MERINO MD [facility] 09-23-2023 11:47-0400 Body weight 54.[address] DEBBIE MERINO MD [facility] 09-23-2023 11:47-0400 Body weight 19.61 kg/m2 DR DEBBIE MERINO MD [facility] 09-23-2023 11:47-0400 Diastolic Blood Pressure Non-Invasive 55 mm[Hg] DR DEBBIE MERINO MD [facility] 09-23-2023 11:47-0400 Heart rate 56 /min DR DEBBIE MERINO MD [facility] 09-23-2023 11:47-0400 Systolic Blood Pressure Non-Invasive 108 mm[Hg] DR DEBBIE MERINO MD [facility] 08-30-2023 12:05-0400 Body temperature 97.81 [degF] Treatment Wstr Work Phone: [facility] 08-30-2023 12:05-0400 Diastolic blood pressure 54 mm[Hg] Treatment Wstr Work Phone: [facility] 08-30-2023 12:05-0400 Heart rate 64 /min Treatment Wstr Work Phone: [facility] 08-30-2023 12:05-0400 SaO2% (BldA) [Mass fraction] 99 % Treatment Wstr Work Phone: [facility] 08-30-2023 12:05-0400 Systolic blood pressure 102 mm[Hg] Treatment Wstr Work Phone: [facility] 08-29-2023 11:30-0400 Body mass index (BMI) [Ratio] 20.14 kg/m2 Hellen [employer] DO Work Phone: [facility] 08-29-2023 11:30-0400 Body temperature 98.71 [degF] Hellen José Antonioi DO Work Phone: [facility] 08-29-2023 11:30-0400 Body weight 54.9 kg Hellen Masci DO Work Phone: [facility] 08-29-2023 11:30-0400 Diastolic blood pressure 67 mm[Hg] Hellen [employer] DO Work Phone: [facility] 08-29-2023 11:30-0400 Heart rate 77 /min Hellen Santosi DO Work Phone: [facility] 08-29-2023 11:30-0400 SaO2% (BldA) [Mass fraction] 99 % Hellen [employer] DO Work Phone: [facility] 08-29-2023 11:30-0400 Systolic blood pressure 137 mm[Hg] Hellen [employer] DO Work Phone: [facility] 08-29-2023 11:15-0400 Body mass index (BMI) [Ratio] 20.14 kg/m2 Lab/Port Wstr Work Phone: [facility] 08-29-2023 11:15-0400 Body weight 54.88 kg Lab/Port Wstr Work Phone: [facility] 08-09-2023 07:00-0400 Body temperature 97.2 [degF] Treatment Wstr Work Phone: [facility] 08-09-2023 07:00-0400 Diastolic blood pressure 54 mm[Hg] Treatment Wstr Work Phone: [facility] 08-09-2023 07:00-0400 Heart rate 68 /min Treatment Wstr Work Phone: [facility] 08-09-2023 07:00-0400 Systolic blood pressure 117 mm[Hg] Treatment Wstr Work Phone: [facility] 08-08-2023 09:52-0400 Body mass index (BMI) [Ratio] 20.05 kg/m2 Demarcus Rodriguez 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.[employer] BUILDER Work Phone: [facility] 08-08-2023 09:52-0400 Body temperature 97.59 [degF] Demarcus Stevensenter BL[employer] 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.SAMPLE BODY BUILDER Work Phone: [facility] 08-08-2023 09:52-0400 Body weight 54.66 kg Demarcus Stevensenter BL[employer] 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.SAMPLE BODY BUILDER Work Phone: [facility] 08-08-2023 09:52-0400 Diastolic blood pressure 64 mm[Hg] Demarcus Rodriguez BL[employer] 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.SAMPLE BODY BUILDER Work Phone: [facility] 08-08-2023 09:52-0400 Heart rate 64 /min Demarcus Stevensenter BL[employer] 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.SAMPLE BODY BUILDER Work Phone: [facility] 08-08-2023 09:52-0400 SaO2% (BldA) [Mass fraction] 99 % Demarcus Stevensenter BL[employer] 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.SAMPLE BODY BUILDER Work Phone: [facility] 08-08-2023 09:52-0400 Systolic blood pressure 103 mm[Hg] Demarcus Stevensenter BL[employer] 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.SAMPLE BODY BUILDER Work Phone: [facility] 08-08-2023 09:32-0400 Body mass index (BMI) [Ratio] 20.05 kg/m2 Lab/Port Wstr Work Phone: [facility] 08-08-2023 09:32-0400 Body weight 54.66 kg Lab/Port Wstr Work Phone: [facility] 07-19-2023 08:26-0400 Body temperature 97.81 [degF] Treatment Wstr Work Phone: [facility] 07-19-2023 08:26-0400 Diastolic blood pressure 46 mm[Hg] Treatment Wstr Work Phone: [facility] 07-19-2023 08:26-0400 Heart rate 76 /min Treatment Wstr Work Phone: [facility] 07-19-2023 08:26-0400 SaO2% (BldA) [Mass fraction] 100 % Treatment Wstr Work Phone: [facility] 07-19-2023 08:26-0400 Systolic blood pressure 110 mm[Hg] Treatment Wstr Work Phone: [facility] 07-18-2023 09:21-0400 Body mass index (BMI) [Ratio] 20.14 kg/m2 Hellen Santosi DO Work Phone: [facility] 07-18-2023 09:21-0400 Body temperature 98.71 [degF] Hellen Santosi DO Work Phone: [facility] 07-18-2023 09:21-0400 Body weight 54.88 kg Hellen Santosi DO Work Phone: [facility] 07-18-2023 09:21-0400 Diastolic blood pressure 60 mm[Hg] Hellen Santosi DO Work Phone: [facility] 07-18-2023 09:21-0400 Heart rate 74 /min Hellen Santosi DO Work Phone: [facility] 07-18-2023 09:21-0400 SaO2% (BldA) [Mass fraction] 100 % Hellen Santosi DO Work Phone: [facility] 07-18-2023 09:21-0400 Systolic blood pressure 98 mm[Hg] Hellen José Antonioi DO Work Phone: [facility] 07-17-2023 14:58-0400 Body temperature 97.5 [degF] Injection Wstr Work Phone: [facility] 07-12-2023 09:01-0400 Body temperature 97.59 [degF] Treatment Wstr Work Phone: [facility] 07-12-2023 09:01-0400 Body weight 55.79 kg Treatment Wstr Work Phone: [facility] 07-12-2023 09:01-0400 Diastolic blood pressure 55 mm[Hg] Treatment Wstr Work Phone: [facility] 07-12-2023 09:01-0400 Heart rate 69 /min Treatment Wstr Work Phone: [facility] 07-12-2023 09:01-0400 Respiratory rate 16 /min Treatment Wstr Work Phone: [facility] 07-12-2023 09:01-0400 SaO2% (BldA) [Mass fraction] 100 % Treatment Wstr Work Phone: [facility] 07-12-2023 09:01-0400 Systolic blood pressure 104 mm[Hg] Treatment Wstr Work Phone: [facility] 07-11-2023 14:31-0400 Body temperature 98.8 [degF] Injection Wstr Work Phone: [facility] 07-11-2023 14:31-0400 Body weight 54.43 kg Injection Wstr Work Phone: [facility] 07-11-2023 14:31-0400 Diastolic blood pressure 63 mm[Hg] Injection Wstr Work Phone: [facility] 07-11-2023 14:31-0400 Heart rate 84 /min Injection Wstr Work Phone: [facility] 07-11-2023 14:31-0400 SaO2% (BldA) [Mass fraction] 98 % Injection Wstr Work Phone: [facility] 07-11-2023 14:31-0400 Systolic blood pressure 130 mm[Hg] Injection Wstr Work Phone: [facility] 07-10-2023 15:39-0400 Body temperature 97.7 [degF] Injection Wstr Work Phone: [facility] 07-10-2023 15:39-0400 Body weight 54.43 kg Injection Wstr Work Phone: [facility] 07-10-2023 15:39-0400 Diastolic blood pressure 52 mm[Hg] Injection Wstr Work Phone: [facility] 07-10-2023 15:39-0400 Heart rate 75 /min Injection Wstr Work Phone: [facility] 07-10-2023 15:39-0400 SaO2% (BldA) [Mass fraction] 100 % Injection Wstr Work Phone: [facility] 07-10-2023 15:39-0400 Systolic blood pressure 104 mm[Hg] Injection Wstr Work Phone: [facility] 07-09-2023 11:34-0400 Body temperature 98.8 [degF] Injection Wstr Work Phone: [facility] 07-09-2023 11:34-0400 Body weight 54.43 kg Injection Wstr Work Phone: [facility] 07-09-2023 11:34-0400 Diastolic blood pressure 50 mm[Hg] Injection Wstr Work Phone: [facility] 07-09-2023 11:34-0400 Heart rate 77 /min Injection Wstr Work Phone: [facility] 07-09-2023 11:34-0400 SaO2% (BldA) [Mass fraction] 98 % Injection Wstr Work Phone: [facility] 07-09-2023 11:34-0400 Systolic blood pressure 93 mm[Hg] Injection Wstr Work Phone: [facility] 07-08-2023 08:59-0400 Body temperature 97 [degF] Injection Wstr Work Phone: [facility] 07-05-2023 08:55-0400 Diastolic blood pressure 47 mm[Hg] Treatment Wstr Work Phone: [facility] 07-05-2023 08:55-0400 Heart rate 64 /min Treatment Wstr Work Phone: [facility] 07-05-2023 08:55-0400 Systolic blood pressure 107 mm[Hg] Treatment Wstr Work Phone: [facility] 07-05-2023 08:20-0400 Body temperature 97.11 [degF] Treatment Wstr Work Phone: [facility] 07-05-2023 08:20-0400 SaO2% (BldA) [Mass fraction] 99 % Treatment Wstr Work Phone: [facility] 07-04-2023 13:31-0400 Body temperature 98.49 [degF] Kala Kaba Work Phone: [facility] 07-04-2023 13:31-0400 Body weight 55.3 kg Kala Kaba Work Phone: [facility] 07-04-2023 13:31-0400 Diastolic blood pressure 55 mm[Hg] Kala Sesar Work Phone: [facility] 07-04-2023 13:31-0400 Heart rate 82 /min Kala Kaab Work Phone: [facility] 07-04-2023 13:31-0400 SaO2% (BldA) [Mass fraction] 98 % Kala Kaba Work Phone: [facility] 07-04-2023 13:31-0400 Systolic blood pressure 96 mm[Hg] Kala Kaba Work Phone: [facility] 07-04-2023 13:22-0400 Body weight 55.34 kg Lab/Port Wstr Work Phone: [facility] 07-03-2023 15:39-0400 Body temperature 98.4 [degF] Injection Wstr Work Phone: [facility] 07-01-2023 10:22-0400 Body temperature 97 [degF] Injection Wstr Work Phone: [facility] 07-01-2023 10:22-0400 Body weight 54.88 kg Injection Wstr Work Phone: [facility] 07-01-2023 10:22-0400 Diastolic blood pressure 55 mm[Hg] Injection Wstr Work Phone: [facility] 07-01-2023 10:22-0400 Heart rate 77 /min Injection Wstr Work Phone: [facility] 07-01-2023 10:22-0400 SaO2% (BldA) [Mass fraction] 97 % Injection Wstr Work Phone: [facility] 07-01-2023 10:22-0400 Systolic blood pressure 110 mm[Hg] Injection Wstr Work Phone: [facility] 06-28-2023 10:08-040 Body temperature 97.11 [degF] Treatment Wstr Work Phone: [facility] 06-28-2023 10:08-040 Diastolic blood pressure 60 mm[Hg] Treatment Wstr Work Phone: [facility] 06-28-2023 10:08-0400 Heart rate 75 /min Treatment Wstr Work Phone: [facility] 06-28-2023 10:08-0400 Respiratory rate 16 /min Treatment Wstr Work Phone: [facility] 06-28-2023 10:08-0400 Systolic blood pressure 99 mm[Hg] Treatment Wstr Work Phone: [facility] 06-27-2023 [id number] Body temperature 97.9 [degF] Injection Wstr Work Phone: [facility] 06-27-2023 [id number] Body weight 54.88 kg Injection Wstr Work Phone: [facility] 06-27-2023 [id number] Diastolic blood pressure 46 mm[Hg] Injection Wstr Work Phone: [facility] 06-27-2023 [id number] Heart rate 74 /min Injection Wstr Work Phone: [facility] 06-27-2023 10:19-0400 SaO2% (BldA) [Mass fraction] 99 % Injection Wstr Work Phone: [facility] 06-27-2023 10:19-040 Systolic blood pressure 92 mm[Hg] Injection Wstr Work Phone: [facility] 06-26-2023 11:33-0400 Body temperature 97.7 [degF] Injection Wstr Work Phone: [facility] 06-25-2023 11:29-0400 Body temperature 98.4 [degF] Injection Wstr Work Phone: [facility] 06-25-2023 11:29-0400 Body weight 55.79 kg Injection Wstr Work Phone: [facility] 06-25-2023 11:29-0400 Diastolic blood pressure 62 mm[Hg] Injection Wstr Work Phone: [facility] 06-25-2023 11:29-0400 Heart rate 93 /min Injection Wstr Work Phone: [facility] 06-25-2023 11:29-0400 SaO2% (BldA) [Mass fraction] 95 % Injection Wstr Work Phone: [facility] 06-25-2023 11:29-0400 Systolic blood pressure 105 mm[Hg] Injection Wstr Work Phone: [facility] 06-24-2023 10:58-0400 Body temperature 97.2 [degF] Lab/Port Wstr Work Phone: [facility] 06-14-2023 08:56-0400 Body temperature 97.39 [degF] Treatment Wstr Work Phone: [facility] 06-14-2023 08:56-0400 Body weight 55.79 kg Treatment Wstr Work Phone: [facility] 06-14-2023 08:56-0400 Diastolic blood pressure 50 mm[Hg] Treatment Wstr Work Phone: [facility] 06-14-2023 08:56-0400 Heart rate 71 /min Treatment Wstr Work Phone: [facility] 06-14-2023 08:56-0400 Respiratory rate 18 /min Treatment Wstr Work Phone: [facility] 06-14-2023 08:56-0400 SaO2% (BldA) [Mass fraction] 99 % Treatment Wstr Work Phone: [facility] 06-14-2023 08:56-0400 Systolic blood pressure 96 mm[Hg] Treatment Wstr Work Phone: [facility] 06-07-2023 08:30-0400 Body temperature 97 [degF] Treatment Wstr Work Phone: [facility] 06-07-2023 08:30-0400 Diastolic blood pressure 42 mm[Hg] Treatment Wstr Work Phone: [facility] 06-07-2023 08:30-0400 Heart rate 70 /min Treatment Wstr Work Phone: [facility] 06-07-2023 08:30-0400 Respiratory rate 18 /min Treatment Wstr Work Phone: [facility] 06-07-2023 08:30-0400 SaO2% (BldA) [Mass fraction] 100 % Treatment Wstr Work Phone: [facility] 06-07-2023 08:30-0400 Systolic blood pressure 108 mm[Hg] Treatment Wstr Work Phone: [facility] 06-06-2023 09:29-0400 Body temperature 98.6 [degF] Hellen Masci DO Work Phone: [facility] 06-06-2023 09:29-0400 Body weight 55.79 kg Hellen Masci DO Work Phone: [facility] 06-06-2023 09:29-0400 Diastolic blood pressure 64 mm[Hg] Hellen Masci DO Work Phone: [facility] 06-06-2023 09:29-0400 Heart rate 74 /min Hellen Masci DO Work Phone: [facility] 06-06-2023 09:29-0400 SaO2% (BldA) [Mass fraction] 98 % Hellen Masci DO Work Phone: [facility] 06-06-2023 09:29-0400 Systolic blood pressure 101 mm[Hg] Hellen Masci DO Work Phone: [facility] 06-03-2023 10:35-0400 Body temperature 97.81 [degF] Injection Wstr Work Phone: [facility] 05-31-2023 07:55-0500 Body temperature 98.29 [degF] Treatment Wstr Work Phone: [facility] 05-31-2023 07:55-0500 Body weight 55.57 kg Treatment Wstr Work Phone: [facility] 05-31-2023 07:55-0500 Diastolic blood pressure 41 mm[Hg] Treatment Wstr Work Phone: [facility] 05-31-2023 07:55-0500 Heart rate 66 /min Treatment Wstr Work Phone: [facility] 05-31-2023 07:55-0500 SaO2% (BldA) [Mass fraction] 100 % Treatment Wstr Work Phone: [facility] 05-31-2023 07:55-0500 Systolic blood pressure 98 mm[Hg] Treatment Wstr Work Phone: [facility] 05-24-2023 09:00-0500 Body temperature 97.11 [degF] Treatment Wstr Work Phone: [facility] 05-24-2023 09:00-0500 Body weight 57.15 kg Treatment Wstr Work Phone: [facility] 05-24-2023 09:00-0500 Diastolic blood pressure 56 mm[Hg] Treatment Wstr Work Phone: [facility] 05-24-2023 09:00-0500 Heart rate 78 /min Treatment Wstr Work Phone: [facility] 05-24-2023 09:00-0500 Systolic blood pressure 108 mm[Hg] Treatment Wstr Work Phone: [facility] 05-17-2023 08:25-0500 Body temperature 97.3 [degF] Treatment Wstr Work Phone: [facility] 05-17-2023 08:25-0500 Diastolic blood pressure 42 mm[Hg] Treatment Wstr Work Phone: [facility] 05-17-2023 08:25-0500 Heart rate 66 /min Treatment Wstr Work Phone: [facility] 05-17-2023 08:25-0500 Respiratory rate 16 /min Treatment Wstr Work Phone: [facility] 05-17-2023 08:25-0500 SaO2% (BldA) [Mass fraction] 99 % Treatment Wstr Work Phone: [facility] 05-17-2023 08:25-0500 Systolic blood pressure 97 mm[Hg] Treatment Wstr Work Phone: [facility] 05-16-2023 11:26-0500 Body temperature 97.81 [degF] Demarcus Rodriguez BLACK ASH 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.SAMPLE BODY BUILDER Work Phone: [facility] 05-16-2023 11:26-0500 Body weight 55.57 kg Demarcus Rodriguez BLACK ASH 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.SAMPLE BODY BUILDER Work Phone: [facility] 05-16-2023 11:26-0500 Diastolic blood pressure 63 mm[Hg] Hugheston Rodriguez BLACK ASH 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.SAMPLE BODY BUILDER Work Phone: [facility] 05-16-2023 11:26-0500 Heart rate 66 /min Hugheston Rodriguez BLACK ASH 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.SAMPLE BODY BUILDER Work Phone: [facility] 05-16-2023 11:26-0500 SaO2% (BldA) [Mass fraction] 96 % Hugheston Rodriguez BLACK ASH 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.SAMPLE BODY BUILDER Work Phone: [facility] 05-16-2023 11:26-0500 Systolic blood pressure 106 mm[Hg] Demarcus Rodriguez BLACK ASH 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.SAMPLE BODY BUILDER Work Phone: [facility] 05-16-2023 11:10-0500 Body weight 55.57 kg Lab/Port Wstr Work Phone: [facility] 05-10-2023 08:28-0500 Body temperature 97.59 [degF] Treatment Wstr Work Phone: [facility] 05-10-2023 08:28-0500 Body weight 56.47 kg Treatment Wstr Work Phone: [facility] 05-10-2023 08:28-0500 Diastolic blood pressure 59 mm[Hg] Treatment Wstr Work Phone: [facility] 05-10-2023 08:28-0500 Heart rate 65 /min Treatment Wstr Work Phone: [facility] 05-10-2023 08:28-0500 Respiratory rate 16 /min Treatment Wstr Work Phone: [facility] 05-10-2023 08:28-0500 SaO2% (BldA) [Mass fraction] 100 % Treatment Wstr Work Phone: [facility] 05-10-2023 08:28-0500 Systolic blood pressure 98 mm[Hg] Treatment Wstr Work Phone: [facility] 05-03-2023 08:33-0500 Body temperature 97 [degF] Treatment Wstr Work Phone: [facility] 05-03-2023 08:33-0500 Body weight 55.79 kg Treatment Wstr Work Phone: [facility] 05-03-2023 08:33-0500 Diastolic blood pressure 49 mm[Hg] Treatment Wstr Work Phone: [facility] 05-03-2023 08:33-0500 Heart rate 66 /min Treatment Wstr Work Phone: [facility] 05-03-2023 08:33-0500 Systolic blood pressure 112 mm[Hg] Treatment Wstr Work Phone: [facility] 04-25-2023 08:00-0500 Body temperature 98.8 [degF] Treatment Wstr Work Phone: [facility] 04-25-2023 08:00-0500 Diastolic blood pressure 51 mm[Hg] Treatment Wstr Work Phone: [facility] 04-25-2023 08:00-0500 Heart rate 57 /min Treatment Wstr Work Phone: [facility] 04-25-2023 08:00-0500 SaO2% (BldA) [Mass fraction] 100 % Treatment Wstr Work Phone: [facility] 04-25-2023 08:00-0500 Systolic blood pressure 119 mm[Hg] Treatment Wstr Work Phone: [facility] 04-25-2023 07:53-0500 Body weight 55.57 kg Treatment Wstr Work Phone: [facility] 04-22-2023 14:01-0500 Body temperature 98.3 [degF] Dr. Hellen Lafleur Work Phone: [facility] 04-22-2023 14:01-0500 Diastolic blood pressure 56 mm[Hg] Dr. Hellen Lafleur Work Phone: [facility] 04-22-2023 14:01-0500 Heart rate 65 /min Dr. Hellen Lafleur Work Phone: [facility] 04-22-2023 14:01-0500 Respiratory rate 16 /min Dr. Hellen Lafleur Work Phone: [facility] 04-22-2023 14:01-0500 SaO2% (BldA) [Mass fraction] 100 % Dr. Hellen Lafleur Work Phone: [facility] 04-22-2023 14:01-0500 Systolic blood pressure 107 mm[Hg] Dr. Hellen Lafleur Work Phone: [facility] 04-22-2023 12:12-0500 Body height 165.[address] Hellen Lafleur Work Phone: [facility] 04-22-2023 12:12-0500 Body mass index (BMI) [Ratio] 19.8 kg/m2 Dr. Hellen Lafleur Work Phone: [facility] 04-22-2023 12:12-0500 Body weight 53.[address] Hellen Lafleur Work Phone: [facility] 04-17-2023 08:22-0500 Body mass index (BMI) [Ratio] 20.5 kg/m2 Dr. Hellen Lafleur Work Phone: [facility] 04-17-2023 08:22-0500 Body temperature 97.1 [degF] Dr. Hellen Lafleur Work Phone: [facility] 04-17-2023 08:22-0500 Body weight 55.[address] Hellen Lafleur Work Phone: [facility] 04-17-2023 08:22-0500 Diastolic blood pressure 61 mm[Hg] Dr. Hellen Lafleur Work Phone: [facility] 04-17-2023 08:22-0500 Heart rate 63 /min Dr. Hellen Lafleur Work Phone: [facility] 04-17-2023 08:22-0500 Respiratory rate 17 /min Dr. Hellen Lafleur Work Phone: [facility] 04-17-2023 08:22-0500 SaO2% (BldA) [Mass fraction] 100 % Dr. Hellen Lafleur Work Phone: [facility] 04-17-2023 08:22-0500 Systolic blood pressure 100 mm[Hg] Dr. Hellen Lafleur Work Phone: [facility] 03-12-2023 09:57-0500 Body height 163.8 cm Vale Carpenter MD Work Phone: [facility] 03-12-2023 09:57-0500 Body temperature 97.2 [degF] Vlae Carpenter MD Work Phone: [facility] 03-12-2023 09:57-0500 Body weight 56.43 kg Vale Carpenter MD Work Phone: [facility] 03-12-2023 09:57-0500 Diastolic blood pressure 60 mm[Hg] Vale Carpenter MD Work Phone: [facility] 03-12-2023 09:57-0500 Heart rate 68 /min Vale Carpenter MD Work Phone: [facility] 03-12-2023 09:57-0500 SaO2% (BldA) [Mass fraction] 99 % Vale Carpenter MD Work Phone: [facility] 03-12-2023 09:57-0500 Systolic blood pressure 108 mm[Hg] Vale Carpenter MD Work Phone: [facility] 01-16-2023 10:43-0400 Body height 165.1 cm [facility] 06-19-2022 08:41-0400 Body height 165.1 cm Martha Darby MD Work Phone: [facility] 06-19-2022 08:41-0400 Body temperature 97.11 [degF] Martha Darby MD Work Phone: [facility] 06-19-2022 08:41-0400 Body weight 55.61 kg Martha Darby MD Work Phone: [facility] 06-19-2022 08:41-0400 Diastolic blood pressure 78 mm[Hg] Martha Darby MD Work Phone: [facility] 06-19-2022 08:41-0400 Heart rate 77 /min Martha Darby MD Work Phone: [facility] 06-19-2022 08:41-0400 SaO2% (BldA) [Mass fraction] 97 % Martha Darby MD Work Phone: [facility] 06-19-2022 08:41-0400 Systolic blood pressure 108 mm[Hg] Martha Darby MD Work Phone: [facility] 06-12-2022 09:36-0400 Body temperature 98.71 [degF] Karen Alexandre-Mao BLACK ASH 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.SAMPLE BODY BUILDER Work Phone: [facility] 06-12-2022 09:36-0400 Body weight 55.07 kg Karen Praemmanuel-Wood BLACK ASH 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.SAMPLE BODY BUILDER Work Phone: [facility] 06-12-2022 09:36-0400 Diastolic blood pressure 64 mm[Hg] Karen Praisler-Mao BLACK ASH 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.SAMPLE BODY BUILDER Work Phone: [facility] 06-12-2022 09:36-0400 Heart rate 82 /min Karen Praroxannaler-Mao BLACK ASH 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.SAMPLE BODY BUILDER Work Phone: [facility] 06-12-2022 09:36-0400 Respiratory rate 16 /min Karengabby Alexandre-Mao BLACK ASH 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.SAMPLE BODY BUILDER Work Phone: [facility] 06-12-2022 09:36-0400 SaO2% (BldA) [Mass fraction] 97 % Karengabby Alexandre-Wood BLACK ASH 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.SAMPLE BODY BUILDER Work Phone: [facility] 06-12-2022 09:36-0400 Systolic blood pressure 130 mm[Hg] Karen Alexandre-Mao BLACK ASH 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.SAMPLE BODY BUILDER Work Phone: [facility] 02-02-2022 09:18-0500 Body height 166.4 cm Martha Darby MD Work Phone: [facility] 02-02-2022 09:18-0500 Body temperature 97.81 [degF] Martha Darby MD Work Phone: [facility] 02-02-2022 09:18-0500 Body weight 57.06 kg Martha Darby MD Work Phone: [facility] 02-02-2022 09:18-0500 Diastolic blood pressure 64 mm[Hg] Martha Darby MD Work Phone: [facility] 02-02-2022 09:18-0500 Heart rate 86 /min Martha Darby MD Work Phone: [facility] 02-02-2022 09:18-0500 SaO2% (BldA) [Mass fraction] 98 % Martha Darby MD Work Phone: [facility] 02-02-2022 09:18-0500 Systolic blood pressure 122 mm[Hg] Martha Darby MD Work Phone: [facility] 09-18-2021 11:27-0400 Body temperature 98.29 [degF] Joseph Vann MD Work Phone: [facility] 09-18-2021 11:27-0400 Body weight 55.34 kg Joseph Vann MD Work Phone: [facility] 09-18-2021 11:27-0400 Diastolic blood pressure 68 mm[Hg] Joseph Vann MD Work Phone: [facility] 09-18-2021 11:27-0400 Heart rate 80 /min Joseph Vann MD Work Phone: [facility] 09-18-2021 11:27-0400 Respiratory rate 16 /min Joseph Vann MD Work Phone: [facility] 09-18-2021 11:27-0400 SaO2% (BldA) [Mass fraction] 99 % Joseph Vann MD Work Phone: [facility] 09-18-2021 11:27-0400 Systolic blood pressure 110 mm[Hg] Joseph Vann MD Work Phone: [facility] 09-05-2016 18:00-0400 BMI (Body Mass Index) 19.97 kg/m2 Belg[place] Elaine CHAVEZ [facility] Work Phone: 09-05-2016 18:00-0400 Body Temperature 98.5 [degF] Belgica Daleelicia CHAVEZ [facility] Work Phone: 09-05-2016 18:00-0400 BP Diastolic 74 mm[Hg] Belgica Daleelicia CHAVEZ [facility] Work Phone: 09-05-2016 18:00-0400 BP Systolic 116 mm[Hg] [place] Daleelicia CHAVEZ [facility] Work Phone: 09-05-2016 18:00-0400 Height 165.1 cm [place] Daleelicia CHAVEZ [facility] Work Phone: 09-05-2016 18:00-0400 Pulse (Heart Rate) 71 /min [place] Elaine CHAVEZ [facility] Work Phone: 09-05-2016 18:00-0400 Pulse Oximetry 97 % Belgicamarcella Henry LPN [facility] Work Phone: 09-05-2016 18:00-0400 Respiratory Rate 16 /min [place] Elaine CHAVEZ [facility] Work Phone: 09-05-2016 18:00-0400 Weight 54.43 kg Belgica Henry LPN [facility] Work Phone: 08-22-2016 17:59-0400 BMI (Body Mass Index) 20 kg/m2 Belgica Henry LPN [facility] Work Phone: 08-22-2016 17:59-0400 Body Temperature 100.1 [degF] Belgica Henry LPN [facility] Work Phone: 08-22-2016 17:59-0400 BP Diastolic 60 mm[Hg] Belgica Henry LPN [facility] Work Phone: 08-22-2016 17:59-0400 BP Systolic 108 mm[Hg] Belgica Henry LPN [facility] Work Phone: 08-22-2016 17:59-0400 Height 165.1 cm Belgica Henry LPN [facility] Work Phone: 08-22-2016 17:59-0400 Pulse (Heart Rate) 93 /min Belgica Henry LPN [facility] Work Phone: 08-22-2016 17:59-0400 Pulse Oximetry 98 % Belgica Henry LPN [facility] Work Phone: 08-22-2016 17:59-0400 Respiratory Rate 16 /min Belgica Henry LPN [facility] Work Phone: 08-22-2016 17:59-0400 Weight 54.52 kg Belgica Henry LPN [facility] Work Phone: Encounters Encounter Date Encounter Type Care Provider Facility Start: 01-26-2025 End: 01-26-2025 ambulatory HELLEN A AYAAN Facility:[facility] Start: 01-21-2025 End: 01-21-2025 ambulatory HELLEN A JOSÉ ANTONIOI Facility:[facility] Start: 01-19-2025 End: 01-19-2025 ambulatory HELLEN A JOSÉ ANTONIOI Facility:[facility] Start: 01-18-2025 End: 01-18-2025 ambulatory HELLEN A JOSÉ ANTONIOI Facility:[facility] Start: 01-12-2025 End: 01-12-[address] Hellen Zhu DO -[facility] Start: 01-12-2025 End: 01-12-2025 ambulatory Hellen Zhu Facility:[facility] Start: 01-10-2025 End: 01-10-2025 Emergency department patient visit Hellen Lafleur Facility:[facility] Start: 01-05-2025 End: 01-05-2025 ambulatory HELLEN ZHU Facility:[facility] Start: 12-31-2024 End: 12-31-2024 ambulatory KEN ZARCO Facility:[facility] Start: 12-29-2024 End: 12-29-2024 ambulatory HELLEN ZHU Facility:[facility] Start: 12-28-2024 End: 12-28-2024 ambulatory HELLEN ZHU Facility:[facility] Start: 12-24-2024 End: 12-24-[address] DEBBIE MERINO MD Facility:A Start: 12-24-2024 End: 12-24-[address] DEBBIE MERINO MD [facility] Start: 12-15-2024 End: 12-15-2024 ambulatory HELLEN ZHU Facility:[facility] Start: 12-08-2024 End: 12-08-2024 Telephone encounter Hellen Zhu DO Work Phone: Hematology/Oncology Comment on above: Appointment (AVS 11/23 6) Start: 12-08-2024 End: 12-08-2024 ambulatory Treatment Rm 11 Layo [facility] Work Phone: Hematology/Oncology Comment on [...] breast (HCC) Start: 12-08-2024 End: 12-08-2024 ambulatory HELLEN ZHU Facility:[facility] Start: 12-02-2024 End: 12-02-2024 Telephone encounter Hellen Zhu DO Work Phone: Hematology/Oncology Comment on above: Results Start: 11-26-2024 End: 12-01-2024 Telephone encounter Hellen Zhu DO Work Phone: Hematology/Oncology Comment on above: Results Start: 11-24-2024 End: 11-24-2024 ambulatory Treatment Rm 11 Layo [facility] [employer] Work Phone: Hematology/Oncology Comment on above: 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) (Primary Dx); 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); Breast cancer 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, left (HCC); Triple negative breast cancer (HCC) Start: 11-20-2024 End: 11-20-2024 ambulatory Injection Lyao [facility] [employer] Work Phone: Hematology/Oncology Comment on above: Chemotherapy induced neutropenia (Primary Dx); Breast cancer 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, left (HCC); Triple negative breast cancer (HCC); 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) Start: 11-19-2024 End: 11-19-2024 ambulatory Injection Layo [facility] [employer] Work Phone: Hematology/Oncology Comment on above: Chemotherapy induced neutropenia (Primary Dx); Breast cancer 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, left (HCC); Triple negative breast cancer (HCC); 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) Start: 11-19-2024 End: 11-19-2024 Telephone encounter Hellen Zhu DO Work Phone: Hematology/Oncology Start: 11-19-2024 End: 11-19-[address] Hellen Lafleur MD Work Phone: [facility] Start: 11-19-2024 End: 11-19-[address] Hellen Zhu DO -[facility] Work Phone: Start: 11-18-2024 End: 11-19-2024 ambulatory Injection Layo [facility] [employer] Work Phone: Hematology/Oncology Comment on above: Chemotherapy induced neutropenia (Primary Dx); Breast cancer 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, left (HCC); Triple negative breast cancer (HCC); 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) Start: 11-17-2024 End: 11-17-2024 ambulatory Treatment Rm 3 Layo [facility] [employer] Work Phone: Hematology/Oncology Comment on above: 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) (Primary Dx); 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); Breast cancer 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, left (HCC); Triple negative breast cancer (HCC) Start: 11-17-2024 End: 11-17-2024 ambulatory HELLEN HZU Facility:[facility] Start: 11-16-2024 End: 11-16-2024 Office outpatient visit 25 minutes Hellen Zhu DO Work Phone: Hematology/Oncology Comment on above: Brachial plexus diso rders (Primary Dx); 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); Breast cancer 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, left (HCC); Triple negative breast cancer (HCC); Neuropathy, arm, left Start: 11-16-2024 End: 11-16-2024 ambulatory HELLEN ZHU Facility:[facility] Start: 11-16-2024 End: 11-17-2024 Telephone encounter Hellen Zhu DO Work Phone: Hematology/Oncology Comment on above: avs 11/16 Start: 11-16-2024 End: 11-16-2024 ambulatory Injection Layo [facility] [employer] Work Phone: Hematology/Oncology Comment on above: Chemotherapy induced neutropenia (Primary Dx); Breast cancer 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, left (HCC); Triple negative breast cancer (HCC); 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) Start: 11-11-2024 End: 11-11-2024 Patient encounter procedure Mary Green MD Work Phone: General Surgery Comment on above: Axillary mass, right (Primary Dx) Start: 11-11-2024 End: 11-11-2024 ambulatory HELLEN ZHU Facility:[facility] Start: 11-10-2024 End: 11-11-2024 Telephone encounter Hellen Zhu DO Work Phone: Hematology/Oncology Comment on above: Patient Question Appointment Start: 11-10-2024 End: 11-10-2024 ambulatory Treatment Rm 12 Layo [facility] [employer] Work Phone: Hematology/Oncology Comment on above: 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); 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); 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) Start: 11-09-2024 End: 11-09-2024 ambulatory Injection [facility] [employer] Work Phone: Hematology/Oncology Comment on above: Chemotherapy induced neutropenia (Primary Dx); Breast cancer 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, left (HCC); Triple negative breast cancer (HCC); 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) Start: 11-06-2024 End: 11-06-2024 Telephone encounter Hellen Zhu DO Work Phone: Hematology/Oncology Comment on above: Medication Problem Start: 11-06-2024 End: 11-06-2024 ambulatory Lab/Port Layo [facility] [employer] Work Phone: Hematology/Oncology Comment on above: Chemotherapy induced neutropenia (Primary Dx); Breast cancer 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, left (HCC); Triple negative breast cancer (HCC); 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) Start: 11-05-2024 End: 11-05-2024 ambulatory Injection Layo [facility] [employer] Work Phone: Hematology/Oncology Comment on above: Chemotherapy induced neutropenia (Primary Dx); Breast cancer 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, left (HCC); Triple negative breast cancer (HCC); 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) Start: 11-04-2024 End: 11-04-2024 Patient encounter procedure Mary Green MD Work Phone: General Surgery Comment on above: Axillary mass, right (Primary Dx) Start: 11-04-2024 End: 11-04-2024 ambulatory HELLEN ZHU Facility:[facility] Start: 11-04-2024 End: 11-04-2024 ambulatory Injection Layo [facility] Work Phone: Hematology/Oncology Comment on above: Chemotherapy induced neutropenia (Primary Dx); Breast cancer 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, left (HCC); Triple negative breast cancer (HCC); 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) Start: 11-03-2024 End: 11-17-2024 Telephone encounter Hellen Zhu DO Work Phone: Hematology/Oncology Comment on above: Patient Update Start: 11-03-2024 End: 11-03-2024 ambulatory Treatment Rm 3 Layo [facility] Work Phone: Hematology/Oncology Comment on above: 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); 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); 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) Start: 11-02-2024 End: 11-02-2024 Refill Demarcus Rodriguez APRN.CNP Work Phone: Hematology/Oncology Comment on above: Refill Request Chemotherapy induced neutropenia (Primary Dx); Breast cancer 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, left (HCC); Triple negative breast cancer (HCC); 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) Start: 10-30-2024 End: 10-30-2024 ambulatory HELLEN A AYAAN Facility:[facility] Start: 10-29-2024 End: 11-04-2024 Telephone encounter Hellen Zhu DO Work Phone: Hematology/Oncology Comment on above: Patient Question Start: 10-29-2024 End: 10-29-2024 ambulatory HELLEN ZHU Facility:[facility] Start: 10-28-2024 End: 10-28-2024 Patient encounter procedure Melony Davis MD Work Phone: Radiation Oncology Comment on above: Malignant neoplasm o f upper-outer quadrant of left breast in female, estrogen receptor negative (HCC) (Primary Dx) Start: 10-28-2024 End: 10-28-2024 ambulatory MELONY DAVIS Facility:[facility] Start: 10-27-2024 End: 10-27-2024 ambulatory HELLEN ZHU Facility:[facility] Start: 10-26-2024 End: 10-26-2024 Telephone encounter Hellen Zhu DO Work Phone: Hematology/Oncology Start: 10-26-2024 End: 10-26-2024 ambulatory KEN ZARCO Facility:[facility] Start: 10-23-2024 End: 10-23-2024 ambulatory Injection Layo [facility] Work Phone: Hematology/Oncology Comment on above: Chemotherapy induced neutropenia (Primary Dx); Breast cancer 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, left (HCC); Triple negative breast cancer (HCC); 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) Start: 10-22-2024 End: 10-22-2024 ambulatory Injection Layo [facility] Work Phone: Hematology/Oncology Comment on above: Chemotherapy induced neutropenia (Primary Dx); Breast cancer 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, left (HCC); Triple negative breast cancer (HCC); 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) Start: 10-22-2024 End: 10-22-2024 Subsequent hospital visit by physician [employer] [facility] (I-Stat/1.5t) Work Phone: Radiology Comment on above: Brachial plexus diso rders [G54.0] Start: 10-21-2024 End: 10-21-2024 Telephone encounter Hellen Zhu DO Work Phone: Hematology/Oncology Start: 10-21-2024 End: 10-21-2024 ambulatory Injection Layo [facility] Work Phone: Hematology/Oncology Comment on above: Chemotherapy induced neutropenia (Primary Dx); Breast cancer 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, left (HCC); Triple negative breast cancer (HCC); 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) Start: 10-20-2024 End: 07-29-2025 ambulatory Treatment Rm 3 Layo [facility] Work Phone: Hematology/Oncology Comment on [...] breast (HCC) Start: 10-20-2024 End: 10-20-2024 ambulatory HELLEN ZHU Facility:[facility] Start: 10-13-2024 Non-patient / Non-visit Dr. Bishnu pope MD -[facility]- Start: 10-13-2024 End: 10-13-2024 Patient encounter procedure Sant[facility] [employer] -Pulmonary Services/Neurology Work Phone: Start: 10-13-2024 End: 10-13-2024 ambulatory Treatment Rm 10 [facility] [employer] Work Phone: Hematology/Oncology Comment on above: Malignant neoplasm o f left breast in female, estrogen receptor negative, unspecified site of breast (HCC) (Primary Dx); 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); 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) Start: 10-12-2024 End: 10-13-2024 ambulatory Injection [facility] [employer] Work Phone: Hematology/Oncology Comment on above: Chemotherapy induced neutropenia (Primary Dx); Breast cancer 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, left (HCC); Triple negative breast cancer (HCC); 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) Start: 10-09-2024 End: 10-12-2024 Telephone encounter Hellen Zhu DO Work Phone: Hematology/Oncology Comment on above: Follow Up Start: 10-09-2024 End: 10-09-2024 ambulatory Injection Layo [facility] Work Phone: Hematology/Oncology Comment on above: Chemotherapy induced neutropenia (Primary Dx); Breast cancer 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, left (HCC); Triple negative breast cancer (HCC); 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) Start: 10-08-2024 End: 10-08-2024 ambulatory Injection Layo [facility] Work Phone: Hematology/Oncology Comment on [...] End: 09-29-2024 ambulatory Treatment Rm 10 Layo [facility] Work Phone: Hematology/Oncology Comment on [...] encounter procedure Keila Christina DO Work Phone: [place] [facility] Comment on above: 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); 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); History of right breast cancer; History of left breast cancer; H/O breast augmentation; Triple negative breast cancer (HCC) Start: 09-24-2024 End: 09-24-2024 ambulatory SELF Facility:[facility] Start: 09-22-2024 ambulatory HELLEN ZHU Facility:1 [id number] Start: 09-22-2024 End: 09-22-2024 Subsequent hospital visit by physician [facility] [address] SCAN Comment on above: Malignant neoplasm o f overlapping sites of left breast in female, estrogen receptor negative (HCC) [C50.812, Z17.1] Start: 09-22-2024 End: 09-22-2024 Telephone encounter Hellen Zhu DO Work Phone: Hematology/Oncology Comment on above: Patient Update Start: 09-22-2024 End: 09-22-2024 ambulatory Treatment Rm 4 Layo [facility] Work Phone: Hematology/Oncology Comment on [...] Dr. Hellen Lafleur MD Work Phone: -Radiology [place] Start: 09-17-2024 End: 09-17-[address] 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 (Treatment ) Start: 09-15-2024 End: 09-15-2024 ambulatory KEN ZARCO MD Facility:A Start: 09-15-2024 End: 09-15-[address] DEBBIE MERINO MD [facility] Start: 09-08-2024 End: 09-08-2024 ambulatory Treatment Rm 12 Layo [facility] Work Phone: Hematology/Oncology Comment on [...] Question Start: 09-01-2024 End: 09-01-2024 ambulatory Treatment 12 [facility] Work Phone: Hematology/Oncology Comment on above: Malignant neoplasm o f left breast in female, estrogen receptor negative, unspecified site of breast (HCC) (Primary Dx); 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); 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) Start: 08-26-2024 End: 08-26-2024 ambulatory KEN ZARCO MD Facility:A Start: 08-26-2024 End: 08-26-2024 Patient encounter procedure RAFIQ ANTONIO BLACK 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-[facility] Start: 08-25-2024 End: 08-25-2024 ambulatory Treatment 13 [facility] Work Phone: Hematology/Oncology Comment on [...] Start: 08-24-2024 End: 08-24-2024 ambulatory HELLEN ZHU Facility:[facility] Start: 08-19-2024 End: 08-19-2024 ambulatory KEN ZARCO MD Facility:A Start: 08-19-2024 End: 08-19-[address] DEBBIE MERINO MD [facility] Start: 08-11-2024 End: 08-11-2024 ambulatory KEN ZARCO Facility:[facility] Start: 08-04-2024 End: 08-05-2024 Telephone encounter Hellen Zhu DO Work Phone: Hematology/Oncology Comment on above: Results Start: 08-04-2024 End: 08-04-2024 ambulatory Treatment Rm 6 Layo [facility] Work Phone: Hematology/Oncology Comment on above: Malignant neoplasm o f left breast in female, estrogen receptor negative, unspecified site of breast (HCC) (Primary Dx); 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 Hellen Zhu DO -[facility] Start: 08-04-2024 End: 08-04-2024 ambulatory Hellen Zhu Facility:[facility] Start: 07-30-2024 End: 09-29-2024 Follow-up encounter Hellen Zhu DO Work Phone: Hematology/Oncology Start: 07-30-2024 ambulatory HELLEN ZHU Facility:[facility] Start: 07-30-2024 End: 07-30-2024 Subsequent hospital visit by physician [employer] [facility] (I-Stat/1.5t) Work Phone: Radiology Comment on above: Malignant neoplasm o f overlapping sites of left breast in female, estrogen receptor negative (HCC) [C50.812, Z17.1] Start: 07-29-2024 End: 07-29-2024 Telephone encounter Jael Gunter window decorator/Oncology Comment on above: Waste Chopper - O ther (C1D1 Post Treatment Call (Keytruda/Paclitaxel) ) Start: 07-28-2024 End: 07-28-2024 Telephone encounter Hellen Zhu DO Work Phone: Hematology/Oncology Comment on above: Appointment Start: 07-28-2024 End: 07-28-2024 ambulatory Treatment Rm 12 Layo [facility] Work Phone: Hematology/Oncology Comment on [...] 07-27-2024 End: 07-27-2024 Telephone encounter Jael Gunter RN Hematology/Oncology Comment on above: Waste Chopper - O ther (Starting treatment ) Start: 07-24-2024 End: 07-25-2024 Telephone encounter Hellen Zhu DO Work Phone: Hematology/Oncology Comment on above: Results Start: 07-23-2024 End: 07-23-2024 Patient encounter procedure Mary Green MD Work Phone: General Surgery Comment on above: H/O bilateral breast implants (Primary Dx); 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 Alec Kong MD Work Phone: [facility] Work Phone: Start: 06-30-2024 End: 06-30-[address] Alec Kong MD -Physical Therapy Work Phone: Start: 06-01-2024 End: 06-01-2024 Follow-up encounter Kala Kaba Work Phone: Hematology/Oncology Comment on above: Encounter for follow -up surveillance of breast cancer (Primary Dx) Start: 06-01-2024 End: 06-01-2024 Patient encounter procedure Kala Kaba Work Phone: Hematology/Oncology Start: 06-01-2024 End: 06-01-2024 ambulatory SELF Facility:[facility] Start: 05-25-2024 End: 05-25-2024 ambulatory HELLEN ZHU Facility:[facility] Start: 05-25-2024 End: 05-25-2024 Subsequent hospital visit by physician Ct Prep [facility] Cat Scan Comment on above: Breast cancer metast asized to axillary lymph node, left (HCC) [C50.912, C77.3] Start: 05-20-2024 End: 05-21-2024 Telephone encounter Hellen Zhu DO Work Phone: Hematology/Oncology Comment on above: Orders (CT SCAN ) Start: 05-05-2024 End: 05-05-2024 ambulatory KEN ZARCO MD Facility:A Start: 05-05-2024 End: 05-05-[address] DEBBIE MERINO MD [facility] Start: 04-29-2024 End: 04-29-[address] Arben Mccann MD -[facility] Work Phone: Start: 04-29-2024 End: 04-29-2024 ambulatory Hellen Lafleur Facility:[facility] Start: 04-27-2024 End: 04-27-2024 Telephone encounter Hellen Zhu DO Work Phone: Hematology/Oncology Comment on above: Orders Start: 04-07-2024 End: 04-07-[address] Alec Kong MD -Radiology, [place] Work Phone: Start: 04-07-2024 End: 04-07-2024 ambulatory Hellen Lafleur Facility:[facility] Start: 03-19-2024 End: 03-19-2024 Telephone encounter Hellen Zhu DO Work Phone: Hematology/Oncology Comment on above: Patient Question (ca lves are cramping ) Start: 02-25-2024 End: 02-25-2024 ambulatory Treatment Rm 7 Layo [facility] Work Phone: Hematology/Oncology Comment on [...] nocturnal Start: 02-24-2024 End: 02-24-2024 ambulatory Lab/Port [facility] [employer] Work Phone: Hematology/Oncology Comment on above: Malignant neoplasm o f left breast in female, estrogen receptor negative, unspecified site of breast (HCC); Breast cancer 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, left (HCC); Malaise and fatigue Start: 02-24-2024 End: 02-25-2024 Telephone encounter Hellen Zhu DO Work Phone: Hematology/Oncology Comment on above: avs 02/24/24 Start: 01-22-2024 End: 01-22-2024 Follow-up encounter Melony Davis MD Work Phone: Radiation Oncology Comment on above: Radiotherapy follow- up (Primary Dx); Malignant neoplasm of upper-outer quadrant of left breast in female, estrogen receptor negative (HCC) Start: 01-22-2024 End: 01-22-2024 Telemedicine consultation with patient Melony Davis MD Work Phone: Radiation Oncology Start: 01-14-2024 End: 01-14-2024 ambulatory Treatment Rm 7 [facility] [employer] Work Phone: Hematology/Oncology Comment on above: Malignant neoplasm o f left breast in female, estrogen receptor negative, unspecified site of breast (HCC) (Primary Dx); 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) Start: 01-13-2024 End: 01-13-2024 Patient encounter procedure Kala Kaba Work Phone: Hematology/Oncology Start: 01-13-2024 End: 01-13-2024 ambulatory Lab/Port [facility]o [facility] Work Phone: Hematology/Oncology Comment on [...] End: 12-03-2023 ambulatory Treatment Rm 7 Layo [facility] Work Phone: Hematology/Oncology Comment on above: Malignant neoplasm o f left breast in female, estrogen receptor negative, unspecified site of breast (HCC) (Primary Dx); 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) Start: 12-02-2023 End: 12-02-2023 Patient encounter procedure Hellen Zhu DO Work Phone: Hematology/Oncology Start: 12-02-2023 End: 12-02-2023 ambulatory Lab/Port Layo [facility] Work Phone: Hematology/Oncology Comment on [...] evaluation of patient and report Nurse Jannette [facility] Work Phone: Radiation Oncology Comment on [...] End: 10-22-2023 ambulatory Treatment Rm 7 Layo [facility] Work Phone: Hematology/Oncology Comment on [...] Patient encounter procedure DR DEBBIE MERINO MD [facility] Start: 10-02-2023 End: 10-06-2023 ambulatory DEBBIE MERINO Facility:A Start: 10-02-2023 End: 10-02-2023 ambulatory DEBBIEBrandee MERINO Facility:A Start: 10-02-2023 End: 10-02-[address] DEBBIE MERINO MD [facility] Start: 09-23-2023 End: 09-23-[address] DEBBIE MERINO MD [facility] Start: 09-23-2023 End: 09-23-2023 ambulatory DEBBIE MERINO Facility:A Start: 09-23-2023 End: 09-23-2023 ambulatory DEBBIE MERINO Facility:A Start: 09-23-2023 End: 09-23-[address] DEBBIE MERINO MD [facility] Start: 09-12-2023 Telephone encounter Hellen arechiga DO Work Phone: Hematology/Oncology Comment on above: Electronic Communica tion Appointment Start: 09-12-2023 End: 09-12-2023 ambulatory DEBBIE MERINO Facility:A Start: 09-06-2023 Telephone encounter Hellen arechiga DO Work Phone: Hematology/Oncology Comment on above: Results Start: 09-05-2023 Telephone encounter Keila Christina DO Work Phone: General Surgery Comment on above: Follow Up Start: 09-04-2023 Telephone encounter Hellen arechiga DO Work Phone: Hematology/Oncology Comment on above: Follow Up Start: 08-30-2023 End: 08-30-2023 ambulatory Treatment Rm 6 Layo [facility] Work Phone: Hematology/Oncology Comment on above: Malignant neoplasm o f left breast in female, estrogen receptor negative, unspecified site of breast (HCC) (Primary Dx); 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) Start: 08-29-2023 End: 08-29-2023 Patient encounter procedure Hellen Zhu DO Work Phone: Hematology/Oncology Start: 08-29-2023 End: 08-29-2023 ambulatory Lab/Port [facility] Work Phone: Hematology/Oncology Comment on [...] 08-22-2023 End: 08-22-2023 Patient encounter procedure Keila Crhistina DO Work Phone: [facility] Comment on above: Breast cancer metast asized to axillary lymph node, left (HCC) (Primary Dx); History of right breast cancer; H/O bilateral breast implants; At risk for lymphedema Start: 08-20-2023 End: 08-20-2023 Subsequent hospital visit by physician Diagnostic Mammo [facility] Mammogram Comment on above: Malignant neoplasm o f left breast in female, estrogen receptor negative, unspecified site of breast (HCC) [C50.912, Z17.1] Start: 08-15-2023 Telephone encounter Hellen arechiga DO Work Phone: Hematology/Oncology Comment on above: Insurance Authorizat ion Start: 08-09-2023 End: 08-09-2023 ambulatory Treatment Rm 2 Layo [facility] Work Phone: Hematology/Oncology Comment on above: Breast cancer metast asized to axillary lymph node, left (HCC) (Primary Dx); Malignant neoplasm of left breast in female, estrogen receptor negative, unspecified site of breast (HCC); 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) Start: 08-08-2023 End: 08-08-2023 Patient encounter procedure Demarcus Rodriguez APRN.SAMPLE B[employer]ILDER Work Phone: Hematology/Oncology Start: 08-08-2023 End: 08-08-2023 ambulatory Lab/Port [facility] Work Phone: Hematology/Oncology Comment on [...] Orders Only Flor jenkins LPN Work Phone: [facility] Comment on above: Malignant neoplasm o f left breast in female, estrogen receptor negative, unspecified site of breast (HCC) (Primary Dx) Start: 07-23-2023 End: 07-23-2023 ambulatory Lab/Port Layo [facility] Work Phone: Hematology/Oncology Comment on above: Breast cancer metast asized to axillary lymph node, left (HCC) (Primary Dx) Start: 07-22-2023 Telephone encounter Flor de la torre LPN Work Phone: [facility] Comment on above: Appointment Patient Update Start: 07-19-2023 Telephone encounter Hellen arechiga DO Work Phone: Hematology/Oncology Comment on above: Results Start: 07-19-2023 End: 07-19-2023 ambulatory Treatment Rm 4 Layo [facility] Work Phone: Hematology/Oncology Comment on [...] Hematology/Oncology Start: 07-18-2023 End: 07-18-2023 ambulatory Lab/Port [facility] Work Phone: Hematology/Oncology Comment on [...] Start: 07-17-2023 End: 07-17-2023 ambulatory Injection Layo [facility] Work Phone: Hematology/Oncology Comment on above: Breast cancer metast asized to axillary lymph node, left (HCC) (Primary Dx); Triple negative breast cancer (HCC); Malignant neoplasm of overlapping sites of left breast in female, estrogen receptor negative (HCC) Start: 07-17-2023 ambulatory HELLEN ZHU Facility:1 [id number] Start: 07-17-2023 End: 07-17-2023 Subsequent hospital visit by physician [facility] Work Phone: [facility] Comment on above: Malignant neoplasm o f overlapping sites of left breast in female, estrogen receptor negative (HCC) [C50.812, Z17.1] Start: 07-16-2023 End: 07-16-2023 ambulatory Injection Layo [facility] Work Phone: Hematology/Oncology Comment on above: Breast cancer metast asized to axillary lymph node, left (HCC) (Primary Dx); Triple negative breast cancer (HCC); Malignant neoplasm of overlapping sites of left breast in female, estrogen receptor negative (HCC) Start: 07-15-2023 Telephone encounter Hellen arechiga DO Work Phone: Hematology/Oncology Comment on above: Follow Up Start: 07-15-2023 End: 07-15-2023 ambulatory Injection Layo [facility] Work Phone: Hematology/Oncology Comment on above: Breast cancer metast asized to axillary lymph node, left (HCC) (Primary Dx); Triple negative breast cancer (HCC); Malignant neoplasm of overlapping sites of left breast in female, estrogen receptor negative (HCC) Start: 07-12-2023 Telephone encounter Peg MORTON Hematology/Oncology Comment on above: Social Work Services Start: 07-12-2023 End: 07-12-2023 ambulatory Treatment Rm 6 Layo [facility] Work Phone: Hematology/Oncology Comment on above: Malignant neoplasm o f left breast in female, estrogen receptor negative, unspecified site of breast (HCC) (Primary Dx); 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); Breast cancer 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, left (HCC); Malaise and fatigue Start: 07-11-2023 End: 07-11-2023 ambulatory Injection Layo [facility] Work Phone: Hematology/Oncology Comment on above: Breast cancer metast asized to axillary lymph node, left (HCC) (Primary Dx); Triple negative breast cancer (HCC); Malignant neoplasm of overlapping sites of left breast in female, estrogen receptor negative (HCC) Start: 07-10-2023 End: 07-10-2023 ambulatory Injection Layo [facility] Work Phone: Hematology/Oncology Comment on above: Breast cancer metast asized to axillary lymph node, left (HCC) (Primary Dx); Triple negative breast cancer (HCC); Malignant neoplasm of overlapping sites of left breast in female, estrogen receptor negative (HCC) Start: 07-09-2023 End: 07-09-2023 ambulatory Injection Layo [facility] Work Phone: Hematology/Oncology Comment on above: Breast cancer metast asized to axillary lymph node, left (HCC) (Primary Dx); Triple negative breast cancer (HCC); Malignant neoplasm of overlapping sites of left breast in female, estrogen receptor negative (HCC) Start: 07-08-2023 End: 07-08-2023 ambulatory Injection Layo [facility] Work Phone: Hematology/Oncology Comment on above: Breast cancer metast asized to axillary lymph node, left (HCC) (Primary Dx); Triple negative breast cancer (HCC); Malignant neoplasm of overlapping sites of left breast in female, estrogen receptor negative (HCC) Start: 07-05-2023 End: 07-05-2023 ambulatory Treatment Rm 4 Lyao [facility] [employer] Work Phone: Hematology/Oncology Comment on above: Malignant neoplasm o f left breast in female, estrogen receptor negative, unspecified site of breast (HCC) (Primary Dx); 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) Start: 07-04-2023 End: 07-04-2023 Patient encounter procedure Kala Kaba Work Phone: [facility] Start: 07-04-2023 End: 07-04-2023 ambulatory Lab/Port Layo [facility] [employer] Work Phone: Hematology/Oncology Comment on above: Malignant [...] Start: 07-03-2023 End: 07-03-2023 ambulatory Injection Layo [facility] Work Phone: Hematology/Oncology Comment on above: Breast cancer metast asized to axillary lymph node, left (HCC) (Primary Dx); Triple negative breast cancer (HCC); Malignant neoplasm of overlapping sites of left breast in female, estrogen receptor negative (HCC) Start: 07-02-2023 End: 07-02-2023 ambulatory Injection [facility] Work Phone: Hematology/Oncology Comment on above: Breast cancer metast asized to axillary lymph node, left (HCC) (Primary Dx); Triple negative breast cancer (HCC); Malignant neoplasm of overlapping sites of left breast in female, estrogen receptor negative (HCC) Start: 07-01-2023 End: 07-01-2023 ambulatory Injection [facility] [employer] Work Phone: Hematology/Oncology Comment on above: Breast cancer metast asized to axillary lymph node, left (HCC) (Primary Dx); Triple negative breast cancer (HCC); Malignant neoplasm of overlapping sites of left breast in female, estrogen receptor negative (HCC) Start: 06-28-2023 End: 06-28-2023 ambulatory Treatment Rm 11 [facility] [employer] Work Phone: Hematology/Oncology Comment on above: Malignant neoplasm o f left breast in female, estrogen receptor negative, unspecified site of breast (HCC) (Primary Dx); 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); Breast cancer 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, left (HCC); Malaise and fatigue Start: 06-27-2023 Chart abstracting Sondra Palomares RN Hematology/Oncology Comment on above: Research ([id number] Consent) Start: 06-27-2023 End: 06-27-2023 ambulatory Injection [facility] [employer] Work Phone: Hematology/Oncology Comment on above: Breast cancer metast asized to axillary lymph node, left (HCC) (Primary Dx); Triple negative breast cancer (HCC); Malignant neoplasm of overlapping sites of left breast in female, estrogen receptor negative (HCC) Start: 06-26-2023 End: 06-26-2023 ambulatory Injection [facility] [employer] Work Phone: Hematology/Oncology Comment on above: Breast cancer metast asized to axillary lymph node, left (HCC) (Primary Dx); Triple negative breast cancer (HCC); Malignant neoplasm of overlapping sites of left breast in female, estrogen receptor negative (HCC) Start: 06-25-2023 End: 06-25-2023 ambulatory Injection [facility] [employer] Work Phone: Hematology/Oncology Comment on above: Breast cancer metast asized to axillary lymph node, left (HCC) (Primary Dx); Triple negative breast cancer (HCC); Malignant neoplasm of overlapping sites of left breast in female, estrogen receptor negative (HCC) Start: 06-24-2023 Telephone encounter Hellen arechiga DO Work Phone: Hematology/Oncology Comment on above: Patient Question Start: 06-24-2023 End: 06-24-2023 ambulatory Lab/Port [facility] [employer] Work Phone: Hematology/Oncology Comment on above: Breast [...] 06-14-2023 End: 06-14-2023 ambulatory Treatment Rm 6 [facility] [employer] Work Phone: Hematology/Oncology Comment on above: Malignant neoplasm o f left breast in female, estrogen receptor negative, unspecified site of breast (HCC) (Primary Dx); Breast cancer 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, left (HCC); Malaise and fatigue; Triple negative breast cancer (HCC) Start: 06-07-2023 End: 06-07-2023 ambulatory Treatment Rm 4 [facility] [employer] Work Phone: Hematology/Oncology Comment on above: Malignant neoplasm o f left breast in female, estrogen receptor negative, unspecified site of breast (HCC) (Primary Dx); 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) Start: 06-06-2023 Telephone encounter Hellen arechiga DO Work Phone: Hematology/Oncology Comment on above: Appointment Start: 06-06-2023 End: 06-06-2023 Patient encounter procedure Hellen Zhu DO Work Phone: [facility] Start: 06-06-2023 End: 06-06-2023 ambulatory Lab/Port [facility] Work Phone: Hematology/Oncology Comment on [...] (HCC) Start: 06-03-2023 End: 06-03-2023 ambulatory Injection Layo [facility] [employer] Work Phone: Hematology/Oncology Comment on above: Breast cancer metast asized to axillary lymph node, left (HCC) (Primary Dx); Triple negative breast cancer (HCC) Start: 05-31-2023 Telephone encounter Hellen arechiga DO Work Phone: Hematology/Oncology Comment on above: Results Start: 05-31-2023 End: 05-31-2023 ambulatory Treatment Rm 2 [facility] [employer] Work Phone: Hematology/Oncology Comment on above: Malignant neoplasm o f left breast in female, estrogen receptor negative, unspecified site of breast (HCC); Breast cancer 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, left (HCC); Malaise and fatigue Start: 05-24-2023 End: 05-24-2023 ambulatory Treatment Rm 6 Layo [facility] [employer] Work Phone: Hematology/Oncology Comment on above: 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) (Primary Dx); Malignant neoplasm of left breast in female, estrogen receptor negative, unspecified site of breast (HCC); Breast cancer 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, left (HCC); Malaise and fatigue Start: 05-17-2023 End: 05-17-2023 ambulatory Treatment Rm 4 [facility] Work Phone: Hematology/Oncology Comment on above: Malignant neoplasm o f left breast in female, estrogen receptor negative, unspecified site of breast (HCC) (Primary Dx); 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) Start: 05-16-2023 End: 05-16-2023 ambulatory Lab/Port [facility] Work Phone: Hematology/Oncology Comment on above: Malignant neoplasm o f left breast in female, estrogen receptor negative, unspecified site of breast (HCC) (HCC); Breast cancer 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, left (HCC); Malaise and fatigue Malignant neoplasm o f left breast in female, estrogen receptor negative, unspecified site of breast (HCC) (HCC) (Primary Dx) Start: 05-16-2023 End: 05-16-2023 Patient encounter procedure Demarcus Rodriguez APRN.SAMPLE BODY BUILDER Work Phone: [facility] Start: 05-10-2023 End: 05-10-2023 ambulatory Treatment Rm 3 [facility] Work Phone: Hematology/Oncology Comment on above: Malignant neoplasm o f left breast in female, estrogen receptor negative, unspecified site of breast (HCC) (HCC) (Primary Dx); Breast cancer 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, left (HCC); Malaise and fatigue; 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); History of right breast cancer Start: 05-07-2023 End: 05-07-2023 ambulatory [facility] Work Phone: [facility] Comment on above: Malignant neoplasm o f left breast in female, estrogen receptor negative, unspecified site of breast (HCC) (HCC) (Primary Dx); 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); History of right breast cancer Start: 05-07-2023 End: 05-07-2023 Telemedicine consultation with patient [facility] Work Phone: [facility] Start: 05-03-2023 Telephone encounter Hellen arechiga DO Work Phone: Hematology/Oncology Comment on above: Authorization for [facility] Start: 05-03-2023 End: 05-03-2023 ambulatory Treatment Rm 9 [facility] Work Phone: Hematology/Oncology Comment on above: Malignant neoplasm o f left breast in female, estrogen receptor negative, unspecified site of breast (HCC) (HCC) (Primary Dx); Breast cancer 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, left (HCC); Malaise and fatigue; 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) Start: 05-02-2023 Telephone encounter Jael Gunter RN He matology/Oncology Comment on above: Waste Chopper - O ther (Toxicity Check ) Start: 04-26-2023 Telephone encounter Jael Gunter RN He matology/Oncology Comment on above: Waste Chopper - O ther (C1D1 Post Treatment Call ) Start: 04-25-2023 End: 04-25-2023 ambulatory Treatment Rm 1 [facility] Work Phone: Hematology/Oncology Comment on above: Malignant neoplasm o f left breast in female, estrogen receptor negative, unspecified site of breast (HCC) (HCC) (Primary Dx); Breast cancer 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, left (HCC); Malaise and fatigue; 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) Start: 04-24-2023 End: 04-24-2023 ambulatory UNKNOWN PROVIDER Facility:[id number] Start: 04-22-2023 Non-patient / Non-visit Dr. Kezia Lafleur Work Phone: [facility] Start: 04-22-2023 End: 04-22-2023 Admission to same day surgery center Dr. Hellen Lafleur Work Phone: [facility] Start: 04-22-2023 End: 04-22-[address] Hellen Lafleur Work Phone: [facility] Work Phone: Start: 04-17-2023 End: 04-17-[address] Hellen Lafleur Work Phone: [facility] Work Phone: Start: 04-15-2023 End: 01-28-2024 Telephone encounter Vale Carpenter MD Work Phone: General Surgery Comment on above: 04/19/2023 KAYLA LEMON Start: 04-11-2023 End: 04-11-2023 Patient encounter procedure Keila Christina DO Work Phone: [facility] Comment on above: Breast cancer metast asized to axillary lymph node, left (HCC) (Primary Dx); 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); Malignant neoplasm of left breast in female, estrogen receptor negative, unspecified site of breast (HCC) (HCC); Triple negative breast cancer (HCC); History of right breast cancer; Abnormal MRI, breast Start: 04-10-2023 Orders Only Flor Francoise jenkins LPN Work Phone: [facility] Comment on above: Lymphadenopathy, axi llary (Primary Dx); Malignant neoplasm of female breast, unspecified estrogen receptor status, unspecified laterality, unspecified site of breast (HCC) Start: 04-09-2023 End: 04-09-2023 ambulatory [facility] Work Phone: Start: 04-09-2023 End: 04-09-2023 Patient encounter procedure [facility] Work Phone: Start: 04-09-2023 End: 04-09-2023 ambulatory [facility] Work Phone: Start: 04-09-2023 End: 04-09-2023 Patient encounter procedure [facility] Start: 03-12-2023 End: 03-12-2023 Patient encounter procedure Vale Carpenter MD Work Phone: General Surgery Comment on above: Lymphadenopathy, axi llary (Primary Dx) Start: 03-01-2023 End: 03-01-2023 ambulatory [facility] Work Phone: Start: 03-01-2023 End: 03-01-2023 Patient encounter procedure [facility] Work Phone: Start: 01-21-2023 End: 01-21-2023 ambulatory [facility] Work Phone: Start: 01-21-2023 End: 01-21-2023 Patient encounter procedure [facility] Work Phone: Start: 01-16-2023 End: 01-16-2023 ambulatory [facility] Work Phone: Start: 01-16-2023 End: 01-16-2023 Patient encounter procedure [facility] Bone Densitometry Work Phone: Start: 10-08-2022 End: 10-08-2022 ambulatory [facility] Work Phone: Start: 10-08-2022 End: 10-08-2022 Patient encounter procedure [facility]Out[facility] Breast Imaging Work Phone: Start: 08-09-2022 End: 08-09-2022 ambulatory [facility] Work Phone: Start: 08-09-2022 End: 08-09-2022 Patient encounter procedure [facility] Start: 06-19-2022 End: 06-19-2022 Patient encounter procedure Martha Darby MD Work Phone: General Surgery Comment on above: Epigastric pain (Cheryl kenn Dx); Diarrhea, unspecified type Start: 06-13-2022 Telephone encounter Slime MAST Work Phone: [facility] Comment on above: Results Start: 06-12-2022 End: 06-12-2022 Patient encounter procedure Karen Vasquez APRN.CNP Work Phone: [facility] Comment on above: Flu-like symptoms [...] Subsequent hospital visit by physician Screen Mammo [facility] Mammogram Comment on above: Abnormal mammogram [ R92.8] Start: 10-09-2021 End: 10-09-2021 Patient encounter procedure Martha Darby MD Work Phone: General Surgery Comment on above: Abnormal mammogram ( Primary Dx) Start: 10-03-2021 End: 10-03-2021 Patient encounter procedure [facility] Start: 09-19-2021 Telephone encounter Sumit hairston APRN.CNP Work Phone: [facility] Comment on above: Results Start: 09-18-2021 End: 09-18-2021 Patient encounter procedure Joesph Vann MD Work Phone: [facility] Comment on above: Acute viral syndrome (Primary Dx); Nausea Start: 04-16-2017 End: 04-17-2017 Ambulatory DEEP RUSUT Facility:[facility] Procedures Date Procedure Procedure Detail Performing Clinician Start: 01-12-2025 PET study for localization of tumor Dr. Hellen Lafleur MD Work Phone: Start: 01-10-2025 Urnls dip stick/tablet reagent auto microscopy Dr. Hellen Lafleur MD Work Phone: Start: 01-10-[address] Hellen Lafleur MD Work Phone: Start: 01-10-2025 Radiologic exam chest [address] Hellen jones MD Work Phone: Start: 01-10-[address] Hellen Lafleur MD Work Phone: Start: 01-10-2025 SARS-CoV-2, Influenza & RSV (PCR) Dr. Kezia Lafleur MD Work Phone: Start: 01-10-[address] Hellen Lafleur MD Work Phone: Start: 11-19-2024 MRI of upper limb Dr. Hellen Lafleur MD Work Phone: Start: 11-04-2024 US GUIDED SOFT TISSUE MASS [...] Blood count complete auto&auto difrntl wbc Hellen Zhu DO Work Phone: Start: 04-07-2024 Complete x-ray series of lumbar spine with bending views Dr. Alec Kong MD Work Phone: Start: 02-24-2024 Blood count complete auto&auto difrntl wbc Hellen Zhu DO Work Phone: Start: 01-13-2024 Blood count complete auto&auto difrntl wbc Hellen Zhu DO Work Phone: Start: 12-02-2023 Blood count complete auto&auto difrntl wbc Hellen Zhu DO Work Phone: Start: 10-22-2023 Blood count complete auto&auto difrntl wbc Hellen Zhu DO Work Phone: Start: 08-29-2023 Blood count complete auto&auto difrntl wbc Hellen Zhu DO Work Phone: Start: 08-25-2023 History of augmentation of breast H/O breast augmentation Keila Christina DO Work Phone: Start: 08-20-2023 Digital breast tomosynthesis bilateral Keilaloretta Christina DO Work Phone: Start: 08-08-2023 Blood count [...] 05-17-2023 Blood count complete auto&auto difrntl wbc Demarcus Rodriguez APRN.SAMPLE BODY BUILDER Work Phone: Start: 05-16-2023 Blood count complete auto&auto difrntl wbc Hellen Irvin Masci DO Work Phone: Start: 05-10-2023 Blood count complete auto&auto difrntl wbc Hellen Irvin Masci DO Work Phone: Start: 05-03-2023 Blood count complete auto&auto difrntl wbc Hellen Zhu DO Work Phone: Start: 04-25-2023 Blood count complete auto&auto difrntl wbc Hellen Zhu DO Work Phone: Start: 04-22-2023 Implantation to [...] breast DR DEBBIE SALDANA MD Colonoscopy DR EDBBIE ANDERSON MD Esophagogastroduodenoscopy D R DEBBIE MERINO [...] Author Start: 02-07-2030 Colonoscopy COLONOSCOPY [facility] Start: 02-07-2030 COLORECTAL CANCER SCREENING COLORECTAL CANCER SCREENING [facility] Start: 12-09-2027 Diabetes Screening Diabetes Screening [facility] Start: 11-25-2027 Diabetes Screening Diabetes Screening [facility] Start: 11-18-2027 Diabetes Screening Diabetes Screening [facility] Start: 11-11-2027 Diabetes Screening Diabetes Screening [facility] Start: 11-03-2027 Diabetes Screening Diabetes Screening [facility] Start: 10-28-2027 Diabetes Screening Diabetes Screening [facility] Start: 10-21-2027 Diabetes Screening Diabetes Screening [facility] Start: 09-22-2027 Diabetes Screening Diabetes Screening [facility] Start: 09-11-2027 Urine microalbumin profile DTaP,Tdap,Td Vaccine (2 - Td or Tdap) [facility] Start: 09-09-2027 Diabetes Screening Diabetes Screening [facility] Start: 08-25-2027 Diabetes Screening Diabetes Screening [facility] Start: 08-05-2027 Diabetes Screening Diabetes Screening [facility] Start: 07-29-2027 Diabetes Screening Diabetes Screening [facility] Start: 06-02-2027 Diabetes Screening Diabetes Screening [facility] Start: 02-23-2027 Diabetes Screening Diabetes Screening [facility] Start: 01-12-2027 Diabetes Screening Diabetes Screening [facility] Start: 12-01-2026 Diabetes Screening Diabetes Screening [facility] Start: 10-21-2026 Diabetes Screening Diabetes Screening [facility] Start: 08-28-2026 Diabetes Screening Diabetes Screening [facility] Start: 08-07-2026 Diabetes Screening Diabetes Screening [facility] Start: 07-17-2026 Diabetes Screening Diabetes Screening [facility] Start: 07-11-2026 Diabetes Screening Diabetes Screening [facility] Start: 07-03-2026 Diabetes Screening Diabetes Screening [facility] Start: 06-27-2026 Diabetes Screening Diabetes Screening [facility] Start: 06-20-2026 Diabetes Screening Diabetes Screening [facility] Start: 06-13-2026 Diabetes Screening Diabetes Screening [facility] Start: 06-05-2026 Diabetes Screening Diabetes Screening [facility] Start: 05-30-2026 Diabetes Screening Diabetes Screening [facility] Start: 05-23-2026 Diabetes Screening Diabetes Screening [facility] Start: 05-16-2026 Diabetes Screening Diabetes Screening [facility] Start: 05-10-2026 Diabetes Screening Diabetes Screening [facility] Start: 05-03-2026 Diabetes Screening Diabetes Screening [facility] Start: 04-25-2026 Diabetes Screening Diabetes Screening [facility] Start: 04-12-2026 Diabetes Screening Diabetes Screening [facility] Start: 07-20-2025 Screening for malignant neoplasm of colon [facility] Start: 02-16-2025 End: 02-16-2025 ambulatory [facility] Comment on above: CBC D8 TRODELVY/LAB BETINA Y* NO LATER THAN 1 WITH SAME DAY LAB - PM APPTS Start: 02-09-2025 End: 02-09-2025 ambulatory 02/09/2025 1:30 PM [facility] Hematology/Oncology [address] [place] [address] Q3WK TRODELVY/LAB&OV 02/08* NO LATER THAN 1 WITH SAME DAY LAB -PM APPTS Hematology/Oncology Comment on above: Q3WK TRODELVY/LAB&OV 02/08* NO LATER BAILEE N 1 WITH SAME DAY LAB -PM APPTS Start: 02-08-2025 End: 02-08-2025 ambulatory [facility] Comment on above: CBC/CMP OV/LAB EARLY/CHEMO 1 04/11* MASCI -PM APPTS Start: 01-26-2025 End: 01-26-2025 ambulatory [facility] Comment on above: CBC D8 TRODELVY/LAB BETINA Y* NO LATER THAN 1 WITH SAME DAY LAB - PM APPTS Start: 01-19-2025 End: 01-19-2025 ambulatory 01/19/2025 1:30 PM EDT [facility] Hematology/Oncology [address] [place] [address] Q3WK TRODELVY/LAB&OV 01/18* NO LATER THAN 1 WITH SAME DAY LAB -PM APPTS Hematology/Oncology Comment on above: Q3WK TRODELVY/LAB&OV 01/18* NO LATER BAILEE N 1 WITH SAME DAY LAB -PM APPTS Start: 01-18-2025 End: 01-18-2025 ambulatory [facility] Comment on above: CBC/CMP OV/LAB EARLY/CHEMO 1 * MASCI -PM APPTS Start: 01-10-2025 [facility] Start: 01-10-2025 [facility] Start: 01-10-2025 [facility] Start: 01-05-2025 End: 01-05-2025 Patient encounter procedure Hematology/Oncology Comment on above: QWK TAXOL/LAB EARLY* LATE APPOINTMENTS QWK TAXOL/LAB EARLY* TUESDAYS LATE APPOINTMENTS Start: 01-05-2025 End: 01-05-2025 ambulatory [facility] Comment on above: CBC D8 TRODELVY/DAILY NE UPOGEN/LAB EARLY* NO LATER THAN 1 WITH SAME DAY LAB - PM APPTS D8 TRODELVY/LAB BETINA Y* NO LATER THAN 1 WITH SAME DAY LAB - PM APPTS Start: 01-04-2025 End: 01-04-2025 ambulatory 01/04/2025 10:15 AM EDT [facility] Hematology/Oncology [address] [place] [address] Wstr, Injection Layo [facility] [address] [place] [address] DAILY NEUPOGEN* PM APPTS Hematology/Oncology Comment on above: DAILY NEUPOGEN* PM APPTS Start: 01-01-2025 End: 01-01-2025 ambulatory 01/01/2025 2:45 PM EDT [facility] Hematology/Oncology [address] [place] [address] Wstr, Injection Layo c [address] [place] [address] DAILY NEUPOGEN* PM APPTS Hematology/Oncology Comment on above: DAILY NEUPOGEN* PM APPTS Start: 12-31-2024 End: 12-31-2024 ambulatory 12/31/2024 2:45 PM EDT [facility]fusion [facility] Hematology/Oncology [address] [place] [address] Wstr, Injection Layo c [address] [place] [address] DAILY NEUPOGEN* PM APPTS Hematology/Oncology Comment on above: DAILY NEUPOGEN* PM APPTS Start: 12-30-2024 End: 12-30-2024 ambulatory 12/30/2024 3:30 PM EDT Infusion Center Hematology/Oncology [address] [place] [address] Wstr, Injection Layo [facility] [address] [place] [address] DAILY NEUPOGEN* PM APPTS Hematology/Oncology Comment on above: DAILY NEUPOGEN* PM APPTS Start: 12-29-2024 End: 12-29-2024 Patient encounter procedure Hematology/Oncology Comment on above: QWK TAXOL/LAB EARLY* LATE APPOINTMENTS QWK TAXOL/LAB EARLY* Saturday LATE APPOINTMENTS Start: 12-29-2024 End: 12-29-2024 ambulatory [facility] Comment on above: CBC Q3WK TRODELVY/DAILY NEUPOGEN/LAB&OV 12/28* NO LATER THAN 1 WITH SAME DAY LAB -LATE APPTS Q3WK TRODELVY/LAB&OV 12/28* NO LATER THAN 1 WITH SAME DAY LAB -LATE APPTS Start: 12-28-2024 End: 12-28-2024 ambulatory [facility] Comment on above: CBC/CMP OV/LAB EARLY/CHEMO 1 0* MASCI DAILY NEUPOGEN* PM A PPTS Start: 12-25-2024 End: 12-25-2024 ambulatory 12/25/2024 3:30 PM EDT Infusion Center Hematology/Oncology [address] [place] [address] Wstr, Injection Layo [facility] [address] [place] [address] DAILY NEUPOGEN* PM APPTS Hematology/Oncology Comment on above: DAILY NEUPOGEN* PM APPTS Start: 12-24-2024 End: 12-24-2024 ambulatory 12/24/2024 3:30 PM EDT Infusion Center Hematology/Oncology [address] [place] [address] Wstr, Injection Layo [facility] [address] [place] [address] DAILY NEUPOGEN* PM APPTS Hematology/Oncology Comment on above: DAILY NEUPOGEN* PM APPTS Start: 12-23-2024 End: 12-23-2024 Patient encounter procedure Hematology/Oncology Comment on above: QWK TAXOL/LAB EARLY*LATE APPOINTMENTS QWK TAXOL/LAB EARLY* TUESDAYS LATE APPOINTMENTS Start: 12-23-2024 End: 12-23-2024 ambulatory [facility] Comment on above: CBC INJ SCHED FULL Start: 12-22-2024 End: 12-22-2024 ambulatory 12/22/2024 2:45 PM EDT Infusion Center Hematology/Oncology [address] [place] [address] Wstr, Injection Layo [facility] [address] [place] [address] DAILY NEUPOGEN* PM APPTS Hematology/Oncology Comment on above: DAILY NEUPOGEN* PM APPTS Start: 12-21-2024 End: 12-21-2024 ambulatory 12/21/2024 10:15 AM EDT Infusion Center Hematology/Oncology [address] [place] [address] Wstr, Injection Layo [facility] [address] [place] [address] DAILY NEUPOGEN* PM APPTS Hematology/Oncology Comment on above: DAILY NEUPOGEN* PM APPTS Start: 12-18-2024 End: 12-18-2024 ambulatory 12/18/2024 3:30 PM EDT Infusion Center Hematology/Oncology [address] [place] [address] Wstr, Injection Layo [facility] [address] [place] [address] DAILY NEUPOGEN* PM APPTS Hematology/Oncology Comment on [...] EDT Infusion Center Hematology/Oncology [address] [place] [address] Wstr, Injection Layo [facility] [address] [place] [address] DAILY NEUPOGEN* PM APPTS Hematology/Oncology Comment on above: DAILY NEUPOGEN* PM APPTS Start: 12-15-2024 End: 12-15-2024 Patient encounter procedure Hematology/Oncology Comment on above: OV/LAB EARLY/CHEMO 12/17* MASCI LATE APPO INTMENTS OV/LAB EARLY/CHEMO * MASCI TUESDAYS LATE APPOINTMENTS Start: 12-15-2024 End: 12-15-2024 ambulatory [facility] Comment on above: (SO)CBC/CMP(S)/CA15.3/TSH/T4/CORTISOL CBC D8 TRODELVY/DAILY NE UPOGEN/LAB EARLY* NO LATER THAN 1 WITH SAME DAY LAB - PM APPTS D8 TRODELVY/LAB BETINA Y* NO LATER THAN 1 WITH SAME DAY LAB - PM APPTS Start: 12-14-2024 End: 12-14-2024 ambulatory 12/14/2024 2:45 PM EDT Infusion Center Hematology/Oncology [address] [place] [address] Wstr, Injection Layo [facility] [address] [place] [address] DAILY NEUPOGEN* PM APPTS Hematology/Oncology Comment on above: DAILY NEUPOGEN* PM APPTS Start: 12-11-2024 End: 12-11-2024 ambulatory 12/11/2024 2:30 PM EDT Infusion Center Hematology/Oncology [address] [place] [address] Wstr, Lab/Port Layo [facility] [address] [place] [address] INJ SCHED FULL Hematology/Oncology Comment on above: INJ SCHED FULL Start: 12-10-2024 End: 12-10-2024 ambulatory 12/10/2024 2:30 PM EDT Infusion Center Hematology/Oncology [address] [place] [address] Wstr, Lab/Port [place]o [facility] [address] [place] [address] INJ SCHED FULL Hematology/Oncology Comment on above: INJ SCHED FULL Start: 12-09-2024 End: 12-09-2024 Patient encounter procedure Hematology/Oncology Comment on above: QWK TAXOL/LAB EARLY* LATE APPOINTMENTS DAILY/NEUPOGEN/QWK T AXOL/LAB EARLY* LATE APPOINTMENTS Start: 12-09-2024 End: 12-09-2024 [facility] Comment on above: CBC INJ SCHED FULL Start: 12-08-2024 End: 12-08-2024 ambulatory 12/08/2024 11:45 AM EDT Infusion Center Hematology/Oncology [address] [place] [address] Wstr, Injection Layo [facility] [address] [place] [address] DAILY NEUPOGEN*PM APPTS Hematology/Oncology Comment on above: DAILY NEUPOGEN*PM APPTS Start: 12-08-2024 End: 12-08-2024 Patient encounter procedure 12/08/2024 10:30 AM EDT Infusion Center Hematology/Oncology [address] [place] [address] DAILY/NEUPOGEN/QWK TAXOL/LAB EARLY*TUES LATE APPOINTMENTS Hematology/Oncology Comment on above: DAILY/NEUPOGEN/QWK TAXOL/LAB EARLY*TUES LATE APPOINTMENTS Start: 12-08-2024 End: 12-08-2024 [facility] Comment on above: CBC CBC/CMP WITH DR ZHU PER CR Q3WK TRODELVY/DAILY NEUPOGEN/LAB&OV EARLY* NO LATER THAN 1 WITH SAME DAY LAB -LATE APPTS Q3WK TRODELVY/LAB&OV EARLY* NO LATER THAN 1 WITH SAME DAY LAB -LATE APPTS Start: 12-07-2024 End: 12-07-2024 ambulatory 12/07/2024 3:30 PM EDT Infusion Center Hematology/Oncology [address] [place] [address] Wstr, Injection Layo [facility] [address] [place] [address] DAILY NEUPOGEN*PM APPTS Hematology/Oncology Comment on above: DAILY NEUPOGEN*PM APPTS Start: 12-04-2024 End: 12-04-2024 ambulatory 12/04/2024 2:45 PM EDT Infusion Center Hematology/Oncology [address] [place] [address] Wstr, Injection Layo [facility] [address] [place] [address] DAILY NEUPOGEN*PM APPTS Hematology/Oncology Comment on above: DAILY NEUPOGEN*PM APPTS Start: 12-03-2024 End: 12-03-2024 ambulatory 12/03/2024 2:30 PM EDT Infusion Center Hematology/Oncology [address] [place] [address] Wstr, Lab/Port [facility]o [facility] [address] [place] [address] INJ SCHED FULL Hematology/Oncology Comment on above: INJ SCHED FULL Start: 12-02-2024 End: 12-02-2024 ambulatory 12/02/2024 2:00 PM EDT Infusion Center Hematology/Oncology [address] [place] [address] Wstr, Injection Layo [facility] [address] [place] [address] DAILY NEUPOGEN*PM APPTS Hematology/Oncology Comment on above: DAILY NEUPOGEN*PM APPTS Start: 12-01-2024 End: 12-01-2024 Patient encounter procedure Hematology/Oncology Comment on above: QWK TAXOL/LAB EARLY* LATE APPOINTMENTS DAILY NEUPOGEN/QWK T AXOL/LAB EARLY* LATE APPOINTMENTS Start: 12-01-2024 End: 12-01-2024 ambulatory [facility] Comment on above: CBC D15 TAXOL/LAB EARLY* DAILY NEUPOGEN*PM AP PTS Start: 11-30-2024 End: 11-30-2024 ambulatory 11/30/2024 2:45 PM EDT Infusion Center Hematology/Oncology [address] [place] [address] Wstr, Injection Layo [facility] [address] [place] [address] DAILY NEUPOGEN*PM APPTS Hematology/Oncology Comment on above: DAILY NEUPOGEN*PM APPTS Start: 11-30-2024 End: 11-30-2024 Patient encounter procedure 11/30/2024 8:30 AM EDT Appointment Radiology [address] [place] [address] Dx: Brachial plexus disorders [G54.0]; Metastatic cancer [...] EDT Infusion Center Hematology/Oncology [address] [place] [address] Wstr, Injection Layo [facility] [address] [place] [address] DAILY NEUPOGEN*PM APPTS Hematology/Oncology Comment on above: DAILY NEUPOGEN*PM APPTS Start: 11-26-2024 End: 11-26-2024 ambulatory Hematology/Oncology Comment on above: DAILY NEUPOGEN*PM APPTS Start: 11-25-2024 End: 11-25-2024 Patient encounter procedure Hematology/Oncology Comment on above: QWK TAXOL/LAB EARLY*LATE APPOINTMENTS DAILY NEUPOGEN/QWK T AXOL/LAB EARLY*LATE APPOINTMENTS DAILY NEUPOGEN/D8 TR ODELVY/LAB EARLY*LATE APPOINTMENTS Start: 11-25-2024 End: 11-25-2024 ambulatory [facility] Comment on above: CBC INJ SCHED FULL Start: 11-24-2024 End: 11-24-2024 ambulatory [facility] Comment on above: CBC (SO)CBC Start: 11-24-2024 End: 11-24-2024 Patient encounter procedure 11/24/2024 9:00 AM EDT Infusion Center Hematology/Oncology [address] [place] [address] QWK TAXOL/LAB EARLY*LATE APPOINTMENTS Hematology/Oncology Comment on above: QWK TAXOL/LAB EARLY*LATE APPOINTMENTS Start: 11-24-2024 End: 11-24-2024 ambulatory [facility] Comment on above: CBC D8 TAXOL/LAB EARLY* DAILY NEUPOGEN*PM AP PTS date/time per C Benjy Start: 11-23-2024 Influenza vaccination Influenza Vaccine (#1) [facility] Start: 11-20-2024 End: 11-20-2024 ambulatory Hematology/Oncology Comment on above: DAILY NEUPOGEN*PM APPTS last injection- Start: 11-20-2024 End: 11-20-2024 ambulatory Hematology/Oncology Comment on above: DAILY NEUPOGEN* DAILY NEUPOGEN*PM AP PTS Start: 11-19-2024 End: 11-19-2024 ambulatory 11/19/2024 3:30 PM EDT Infusion Center Hematology/Oncology [address] [place] [address] Wstr, Injection [facility] [address] [place] [address] DAILY NEUPOGEN*PM APTS Hematology/Oncology Comment on above: DAILY NEUPOGEN*PM APTS Start: 11-19-2024 End: 11-19-2024 ambulatory Hematology/Oncology Comment on above: DAILY NEUPOGEN* DAILY NEUPOGEN*PM AP TS Start: 11-18-2024 End: 11-18-2024 ambulatory 11/18/2024 10:45 AM EDT Infusion Center Hematology/Oncology [address] [place] [address] Wstr, Injection [facility] [address] [place] [address] DAILY NEUPOGEN* Hematology/Oncology Comment on above: DAILY [...] EDT Infusion Center Hematology/Oncology [address] [place] [address] QMO KEYTRUDA/D1-TAXOL/LAB&OV 11/16* KEYTRUDA NO LATER THAN 230 W/SAME DAY LAB Hematology/Oncology Comment on above: QMO KEYTRUDA/D1-TAXOL/LAB&OV 11/16* KEYTR UDA NO LATER THAN 230 W/SAME DAY LAB Start: 11-17-2024 End: 11-17-2024 Patient encounter procedure 11/17/2024 8:30 AM EDT Infusion Center Hematology/Oncology [address] [place] [address] QMO KEYTRUDA/QWK-TAXOL/LAB&OV 11/16* KEYTRUDA NO LATER THAN 230 W/SAME DAY LAB LATE APPOINTMENTS Hematology/Oncology Comment on above: QMO KEYTRUDA/QWK-TAXOL/LAB&OV 11/16* KEYT RUDA NO LATER THAN 230 W/SAME DAY LAB LATE APPOINTMENTS Start: 11-16-2024 End: 11-16-2024 Patient encounter procedure 11/16/2024 3:50 PM EDT Visit (SP) Office Hematology/Oncology [address] [place] [address] Hellen Zhu DO [address] [facility] [place] [address] OV/LAB EARLY/CHEMO 11/17* MASCI LATE APPOINTMENTS Hematology/Oncology Comment on above: OV/LAB EARLY/CHEMO 11/17* MASCI LATE APPO INTMENTS Start: 11-16-2024 End: 02-15-2025 DPYD/UGT1A1 GENOTYPING PANEL DPYD/UGT1A1 GENOTYPING PANEL Lab Routine Triple negative breast cancer (HCC) Expected: 11/16/2024, Expires: 02/15/2025 [facility] Work Phone: Comment on above: Expected: 11/16/2024, Expires: Start: 11-16-2024 End: 11-16-2024 Patient encounter procedure 11/16/2024 9:30 AM EDT Visit (SP) Office Hematology/Oncology [address] [place] [address] Hellen Zhu DO [address] [place] [address] OV/LAB EARLY/CHEMO 11/17* MASCI LATE APPOINTMENTS Hematology/Oncology Comment on above: OV/LAB EARLY/CHEMO 11/17* AYAAN LATE APPO INTMENTS Start: 11-16-2024 End: 11-16-2024 ambulatory [facility] Comment on above: (SO)CBC/CMP(S)/CA15.3/TSH/T4/CORTISOL OV/LAB EARLY/CHEMO * MASCI PT HAS PM LAB/OV PT HAS PM OV WITH DR ZHU Start: 11-13-2024 End: 11-13-2024 ambulatory 11/13/2024 2:45 PM EDT Infusion Center Hematology/Oncology [address] [place] [address] Wstr, Injection [facility] [address] [place] [address] DAILY NEUPOGEN* Hematology/Oncology Comment on above: DAILY NEUPOGEN* Start: 11-12-2024 End: 11-12-2024 ambulatory 11/12/2024 10:15 AM EDT Infusion Center Hematology/Oncology [address] [place] [address] Wstr, Injection [facility] [address] [place] [address] DAILY NEUPOGEN* Hematology/Oncology Comment on above: DAILY NEUPOGEN* Start: 11-11-2024 End: 11-11-2024 Patient encounter procedure General Surgery Comment on above: f/u lymph node biopsy FU: Ultrasound Guide d Core Right Axillary Biopsy 11/04/2024. [facility] Start: 11-11-2024 End: 11-11-2024 ambulatory 11/11/2024 2:00 PM EDT Infusion Center Hematology/Oncology [address] [place] [address] Wstr, Injection [facility] [address] [place] [address] DAILY NEUPOGEN* Hematology/Oncology Comment on above: DAILY NEUPOGEN* Start: 11-10-2024 End: 11-10-2024 ambulatory [facility] Comment on above: CBC (SO)CBC Start: 11-10-2024 End: 11-10-2024 Patient encounter procedure Hematology/Oncology Comment on above: QWK TAXOL/LAB EARLY*LATE APPOINTMENTS DAILY NEUPOGEN/QWK T AXOL/LAB EARLY* LATE APPOINTMENTS QWK TAXOL / Q3WK [place] /LAB EARLY* LATE APPOINTMENTS Start: 11-10-2024 End: 11-10-2024 ambulatory 11/10/2024 10:45 AM EDT Results Only [place] [facility] [address] [place] [address] CBC [facility] Comment on above: CBC Start: 11-09-2024 End: 11-09-2024 ambulatory 11/09/2024 8:45 AM EDT Infusion Center Hematology/Oncology [address] [place] [address] Wstr, Injection [facility] [address] [place] [address] DAILY NEUPOGEN* Hematology/Oncology Comment on above: DAILY NEUPOGEN* Start: 11-06-2024 End: 11-06-2024 ambulatory 11/06/2024 9:30 AM EDT Infusion Center Hematology/Oncology [address] [place] [address] Wstr, Lab/Port [facility] [address] [place] [address] LAB/PORT SCHED OK PER TRIAGE Hematology/Oncology Comment on above: LAB/PORT SCHED OK PER TRIAGE Start: 11-05-2024 End: 11-05-2024 ambulatory 11/05/2024 3:30 PM EDT Infusion Center Hematology/Oncology [address] [place] [address] Wstr, Injection [facility] [address] [place] [address] Daily Neupogen* Hematology/Oncology Comment on above: Daily Neupogen* Start: 11-05-2024 End: 11-05-2024 ambulatory 11/05/2024 9:30 AM EDT Infusion Center Hematology/Oncology [address] [place] [address] Wstr, Lab/Port [facility] [address] [place] [address] LAB/PORT SCHED OK PER TRIAGE Hematology/Oncology Comment on above: LAB/PORT SCHED OK PER TRIAGE Start: 11-04-2024 End: 11-04-2024 Patient encounter procedure 11/04/2024 1:30 PM EDT Office Visit General Surgery [address] [place] [address] Mary Green MD [address] [place] [address] Consult right axillary lymph node biopsy per Dr Zhu request General Surgery Comment on above: Consult right axillary lymph node biopsy per Dr Zhu request Start: 11-04-2024 End: 11-04-2024 ambulatory 11/04/2024 11:15 AM EDT Infusion Center Hematology/Oncology [address] [place] [address] Wstr, Injection [facility] [address] [place] [address] Daily Neupogen* Hematology/Oncology Comment on above: Daily Neupogen* Start: 11-03-2024 End: 11-03-2024 ambulatory [place] [facility] Comment on above: CBC D15 TAXOL/LAB EARLY* QWK TAXOL/LAB EARLY* DAILY NEUPOGEN/QWK T AXOL/LAB EARLY* Start: 11-02-2024 End: 11-02-2024 ambulatory 11/02/2024 10:45 AM EDT Infusion Center Hematology/Oncology [address] [place] [address] Wstr, Injection [facility] [address] [place] [address] Daily Neupogen* Hematology/Oncology Comment on above: Daily Neupogen* Start: 10-30-2024 End: 10-30-2024 ambulatory 10/30/2024 10:45 AM EDT Infusion Center Hematology/Oncology [address] [place] [address] Wstr, Injection [facility] [address] [place] [address] Daily Neupogen* Hematology/Oncology Comment on above: Daily Neupogen* Start: 10-29-2024 End: 10-29-2024 ambulatory 10/29/2024 10:15 AM EDT Infusion Center Hematology/Oncology [address] [place] [address] Wstr, Injection [facility] [address] [place] [address] Daily Neupogen* Hematology/Oncology Comment on above: Daily Neupogen* Start: 10-28-2024 End: 10-28-2024 Patient encounter procedure Radiology Comment on above: Dx: Brachial plexus disorders [G54.0] OV* Start: 10-28-2024 End: 10-28-2024 ambulatory Hematology/Oncology Comment on above: Daily Neupogen* Start: 10-27-2024 End: 10-27-2024 ambulatory [place] [facility] Comment on above: CBC D8 TAXOL/LAB EARLY* QWK TAXOL/LAB EARLY* pm tx DAILY NEUPOGEN/QWK T AXOL/LAB EARLY* pm tx (SO)CBC* Start: 10-26-2024 End: 10-26-2024 ambulatory 10/26/2024 9:15 AM EDT Infusion Center Hematology/Oncology [address] [place] [address] Wstr, Injection [facility] c [address] [place] [address] Daily Neupogen* Hematology/Oncology Comment on above: Daily Neupogen* Start: 10-23-2024 End: 10-23-2024 ambulatory 10/23/2024 9:15 AM EDT Infusion Center Hematology/Oncology [address] [place] [address] Wstr, Injection [facility] [address] [place] [address] Daily Neupogen* Hematology/Oncology Comment on above: Daily Neupogen* Start: 10-22-2024 End: 10-22-2024 ambulatory Hematology/Oncology Comment on above: Patient to arrive at 8:30 per triage Patient will be late d/t MRI/ Start: 10-22-2024 End: 10-22-2024 Patient encounter procedure Radiology Comment on above: Dx: Brachial plexus disorders [G54.0] Start: 10-22-2024 Subsequent hospital visit by physician 10/22/2024 9:00 AM EDT Hospital Encounter Radiology [address] [place] [address] Brachial plexus disorders [G54.0] Radiology Comment on above: Brachial plexus disorders [G54.0] Start: 10-21-2024 End: 10-21-2024 ambulatory 10/21/2024 10:15 AM EDT Infusion Center Hematology/Oncology [address] [place] [address] Wstr, Injection [facility] [address] [place] [address] Daily Neupogen* Hematology/Oncology Comment on above: Daily [...] PM EDT Infusion Center Hematology/Oncology [address] [place] [address] DAILY NEUPOGEN/QMO KEYTRUDA/QWK TAXOL/LAB&OV 10/20* KEYTRUDA NO LATER THAN 230 W/SAME DAY LAB Hematology/Oncology Comment on above: DAILY NEUPOGEN/QMO KEYTRUDA/QWK TAXOL/LA B&OV 10/20* KEYTRUDA NO LATER THAN 230 W/SAME DAY LAB Start: 10-20-2024 End: 10-20-2024 ambulatory [place] [facility] Comment on above: (SO)CBC/CMP(S)/CA15.3/TSH/T4/CORTISOL OV/LAB EARLY/CHEMO * Daily Neupogen* Start: 10-14-2024 End: 10-14-2024 ambulatory 10/14/2024 11:15 AM EDT Infusion Center Hematology/Oncology [address] [place] [address] Wstr, Injection [facility] [address] [place] [address] Daily Neupogen-Patient is going out of town from 10/15-10/19* Hematology/Oncology Comment on above: Daily Neupogen-Patient is going out of t own from 10/15-10/19* Start: 10-13-2024 End: 10-13-2024 [facility] Comment on above: CBC QWK TAXOL/LAB EARLY* DAILY NEUPOGEN/QWK T AXOL/LAB EARLY* Start: 10-12-2024 End: 10-12-2024 ambulatory 10/12/2024 3:30 PM EDT Infusion Center Hematology/Oncology [address] [place] [address] Wstr, Injection [facility] [address] [place] [address] Daily Neupogen* Hematology/Oncology Comment on above: Daily Neupogen* Start: 10-12-2024 End: 10-12-2024 ambulatory 10/12/2024 11:30 AM EDT Visit (SP) Office Hematology/Oncology [address] [place] [address] Hellen Zhu DO [address] [place] [address] 4 MO OV/LAB 10/06* Hematology/Oncology Comment on above: 4 MO OV/LAB 10/06* Start: 10-09-2024 End: 10-09-2024 ambulatory 10/09/2024 2:00 PM EDT Infusion Center Hematology/Oncology [address] [place] [address] Wstr, Injection [facility] [address] [place] [address] Daily Neupogen* Hematology/Oncology Comment on above: Daily Neupogen* Start: 10-07-2024 End: 11-05-2025 MR Brachial plexus - left WO and W contrast IV MRI BRACHIAL PLEXUS WO/W IVCON LEFT Radiology Routine Brachial plexus disorders Expected: 10/07/2024 (Approximate), Expires: 11/05/2025 [facility] Work Phone: Comment on above: Expected: 10/07/2024 (Approximate), Expi res: 11/05/2025 Start: 10-07-2024 End: 11-05-2025 US Breast - right limited US BREAST LTD RIGHT Radiology Routine 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) Expected: 10/07/2024 (Approximate), Expires: 11/05/2025 [facility] Comment on above: Expected: 10/07/2024 (Approximate), Expi res: 11/05/2025 Start: 10-06-2024 End: 10-06-2024 ambulatory 10/06/2024 2:30 PM EDT Results Only [place] [facility] [address] [place] [address] CBC/CMP/TSH/T4 [place] [facility] Comment on above: CBC/CMP/TSH/T4 Start: 10-06-2024 End: 10-06-2024 ambulatory Hematology/Oncology Comment on above: (SO)CBC/D15 TAXOL(PORT)* CBC D15 TAXOL/LAB EARLY* Start: 09-29-2024 End: 09-29-2024 ambulatory Hematology/Oncology Comment on above: (SO)CBC/D8 TAXOL(PORT)* CBC D8 TAXOL/LAB EARLY* (SO)CBC Start: 09-28-2024 End: 09-28-2024 ambulatory 09/28/2024 9:00 AM EDT Visit (SP) Office Hematology/Oncology [address] [place] [address] [place] [address] [place] [address] 2nd opinion breast ca Hematology/Oncology Comment on above: 2nd opinion breast ca Start: 09-24-2024 End: 09-24-2024 Patient encounter procedure 09/24/2024 10:30 AM EDT Office Visit [facility] [id number] [place] [address] [place] [address] [place] [address] 2ND OPINION [facility] Comment on above: 2ND OPINION Start: 09-22-2024 End: 09-22-2024 ambulatory 09/22/2024 8:30 AM EDT [facility] Center Hematology/Oncology [address] [place] [address] QMO KEYTRUDA/D1-TAXOL/C3-4/LA B&OV 09/21* KEYTRUDA NO LATER THAN 230 W/SAME DAY LAB Hematology/Oncology Comment on above: QMO KEYTRUDA/D1-TAXOL/C3-4/LAB&OV 09/21* KEYTRUDA NO LATER THAN 230 W/SAME DAY LAB Start: 09-21-2024 End: 09-21-2024 ambulatory [facility] Comment on above: (SO)CBC/CMP(S)/CA15.3/TSH/T4/CORTISOL(PO RT)/OV TODAY* OV(PORT)LAB EARLY/CH EMO 09/22* (SO)CBC/CMP(S)/CA15. 3/TSH/T4/CORTISOL OV/LAB EARLY/CHEMO * Start: 09-08-2024 End: 09-08-2024 ambulatory Hematology/Oncology Comment on above: (SO)CBC/D15 TAXOL(PORT)* CBC D15 TAXOL/LAB EARLY* (SO)CBC D15 KEYTRUDA/LAB EAR LY* Start: 09-01-2024 End: 09-01-2024 ambulatory Hematology/Oncology Comment on above: (SO)CBC/D8 TAXOL(PORT)* CBC D8 TAXOL/LAB EARLY* Start: 08-25-2024 End: 08-25-2024 ambulatory 08/25/2024 11:00 AM [facility] Center Hematology/Oncology [address] [place] [address] QMO KEYTRUDA/D1-TAXOL/C2-4/LA B&OV 6/2* KEYTRUDA NO LATER THAN 230 W/SAME DAY LAB Hematology/Oncology Comment on above: QMO KEYTRUDA/D1-TAXOL/C2-4/LAB&OV 6/2* K EYTRUDA NO LATER THAN 230 W/SAME DAY LAB Start: 08-24-2024 End: 08-24-2024 ambulatory [facility] Comment on above: (SO)CBC/CMP(S)/CA15.3/TSH/T4/CORTISOL(PO RT)/OV TODAY* OV(PORT)LAB EARLY/CH EMO 08/25* (SO)CBC/CMP(S)/CA15. 3/TSH/T4/CORTISOL OV/LAB EARLY/CHEMO * Start: 08-19-2024 Screening for malignant neoplasm of breast Mammogram Screening [facility] Start: 08-11-2024 End: 08-11-2024 ambulatory Hematology/Oncology Comment on above: (SO)CBC/D15 TAXOL(PORT)* CBC D15 TAXOL/LAB EARLY* (SO)CBC Start: 08-04-2024 End: 08-04-2024 ambulatory Hematology/Oncology Comment on above: (SO)CBC/D8 TAXOL(PORT)* CBC D8 TAXOL/LAB EARLY* Start: 07-30-2024 End: 07-30-2024 Patient encounter procedure 07/30/2024 2:00 PM EDT Appointment Radiology [address] [place] [address] Dx: Malignant neoplasm of overlapping sites of [...] End: 07-28-2024 ambulatory 07/28/2024 11:00 AM EDT Infusion Center Hematology/Oncology [address] [place], [place] [id number] SIGN CONSENT Hematology/Oncology Comment on above: SIGN CONSENT Start: 07-16-2024 End: 07-16-2024 ambulatory 07/16/2024 11:30 AM EDT Visit (SP) Office Hematology/Oncology [address] [place], [place] [id number] Hellen Zhu DO [address] [place] [address] OV-Bumps on left breast, see phone encounter 07/13* Hematology/Oncology Comment on above: OV-Bumps on left breast, see phone encou nter 07/13* Start: 07-11-2024 Covid-19 Vaccine () Covid-19 Vaccine () [facility] Start: 07-11-2024 Covid-19 Vaccine (8 - Pfizer risk season) Covid-19 Vaccine (8 - Pfizer risk ) [facility] Start: 06-01-2024 End: 06-01-2024 ambulatory [place] [facility] Laboratory Comment on above: labs OV(PORT)LAB EARLY/TR [...] (HCC) Expected: 05/20/2024, Expires: 08/19/2024 [facility] Comment on above: Expected: 05/20/2024, Expires: Start: 05-19-2024 End: 05-19-2024 ambulatory 05/19/2024 3:30 PM [facility] Hematology/Oncology [address] [place] [address] Q6WK KEYTRUDA(PORT)LAB&OV AUTH EXP 07/23/24* Hematology/Oncology Comment on above: Q6WK KEYTRUDA(PORT)LAB&OV AUTH EXP 07/23/24* Start: 2024 End: 2024 ambulatory Hematology/Oncology Comment on above: (SO)CBC/CMP(S)/TSH/T4/CORTISOL(PORT)/OV TODAY* OV(PORT)LAB EARLY/TR EATMENT 05/19* Start: 2024 Advance Directive Discussion Advance Directive Discussion [facility] Start: 2024 Screening for osteoporosis Bone Density Screening [facility] Start: 04-25-2024 Medicare Annual Wellness Visit Medicare Annual Wellness Visit [facility] Start: 04-24-2024 Screening for malignant neoplasm of breast Mammogram Screening [facility] Start: 04-17-2024 Screening for malignant neoplasm of breast Mammogram Screening [facility] Start: 04-07-2024 End: 04-07-2024 ambulatory 04/07/2024 3:30 PM [facility] Hematology/Oncology [address] [place] [address] Q6WK KEYTRUDA(PORT)LAB&OV AUTH EXP 07/23/24* Hematology/Oncology Comment on above: Q6WK KEYTRUDA(PORT)LAB&OV AUTH EXP 07/23/24* Start: 04-06-2024 End: 04-06-2024 ambulatory Hematology/Oncology Comment on above: (SO)CBC/CMP(S)/TSH/T4/CORTISOL(PORT)/OV TODAY* OV(PORT)LAB EARLY/TR EATMENT 04/07* Start: 03-07-2024 Covid-19 Vaccine () Covid-19 Vaccine () [facility] Start: 02-25-2024 End: 02-25-2024 ambulatory Hematology/Oncology Comment on above: Q6WK KEYTRUDA(PORT)LAB&OV AUTH EXP ?* Q6WK KEYTRUDA(PORT)L AB&OV AUTH EXP 12/02/24* Start: 02-24-2024 End: 02-24-2024 ambulatory Hematology/Oncology Comment on above: (SO)CBC/CMP(S)/TSH/T4/CORTISOL(PORT)/OV TODAY* OV(PORT)LAB EARLY/TR EATMENT 02/24* Start: 01-22-2024 End: 01-22-2024 Follow-up encounter 01/22/2024 2:30 PM EDT [facility]iation Oncology [address] [place] [address] Melony Davis MD [address] [place] [address] 4 WK FOLLOW UP* Radiation Oncology Comment on above: 4 WK FOLLOW UP* Start: 01-14-2024 End: 01-14-2024 ambulatory Hematology/Oncology Comment on above: Q3WK KEYTRUDA(PORT)LAB&OV 01/12/AUTH EXP 01/10/24* Q6WK KEYTRUDA(PORT)L AB&OV AUTH EXP ?* Q6WK KEYTRUDA(PORT)L AB&OV AUTH EXP 12/02/24* Start: 01-13-2024 End: 01-13-2024 ambulatory Hematology/Oncology Comment on above: (SO)CBC/CMP(S)/TSH/T4/CORTISOL(PORT)/OV TODAY* OV(PORT)LAB EARLY/TR EATMENT 01/13* Start: 12-25-2023 End: 12-25-2023 Patient encounter procedure 12/25/2023 2:30 PM EDT Appointment Radiation Oncology [address] [place] [address] Location: [email or web address] Comment on above: Location: [email or web address] Start: 12-24-2023 End: 12-24-2023 Patient encounter procedure Radiation Oncology Comment on above: Location: [email or web address] Location: W-ON TREAT MENT VISIT may be late Start: 12-23-2023 End: 12-23-2023 Patient encounter procedure 12/23/2023 2:30 PM EDT Appointment Radiation Oncology [address] [place] [address] Location: [email or web address] Comment on above: Location: [email or web address] Start: 12-20-2023 End: 12-20-2023 Patient encounter procedure 12/20/2023 2:30 PM EDT Appointment Radiation Oncology [address] [place] [address] Location: [email or web address] Comment on above: Location: [email or web address] Start: 12-19-2023 End: 12-19-2023 Patient encounter procedure 12/19/2023 2:30 PM EDT Appointment Radiation Oncology [address] [place] [address] Location: [email or web address] Comment on above: [...] EDT Appointment Radiation Oncology [address] [place] [address] Location: [email or web address] Comment on above: Location: [email or web address] Start: 12-12-2023 End: 12-12-2023 Patient encounter procedure 12/12/2023 2:30 PM EDT Appointment Radiation Oncology [address] [place] [address] Location: [email or web address] Comment on above: Location: [email or web address] Start: 12-11-2023 End: 12-11-2023 Patient encounter procedure 12/11/2023 2:30 PM EDT Appointment Radiation Oncology [address] [place] [address] Location: [email or web address] Comment on above: Location: [email or web address] Start: 12-10-2023 End: 12-10-2023 Patient encounter procedure Radiation Oncology Comment on above: Location: [email or web address] Location: W-ON TREAT MENT VISIT Start: 12-09-2023 End: 12-09-2023 Patient encounter procedure 12/09/2023 2:30 PM EDT Appointment Radiation Oncology [address] [place] [address] Location: [email or web address] Comment on above: Location: [email or web address] Start: 12-06-2023 End: 12-06-2023 Patient encounter procedure 12/06/2023 2:30 PM EDT Appointment Radiation Oncology [address] [place] [address] Location: [email or web address] Comment on above: Location: [email or web address] Start: 12-05-2023 End: 12-05-2023 Patient encounter procedure Radiation Oncology Comment on above: Location: [email or web address] set up boost ? set up boost Location: W-ON TREAT MENT VISIT Start: 12-04-2023 End: 12-04-2023 Patient encounter procedure 12/04/2023 2:30 PM EDT Appointment Radiation Oncology [address] [place] W[place] [id number] Location: [email or web address] Comment on above: Location: [email or web address] Start: 12-03-2023 End: 12-03-2023 ambulatory Hematology/Oncology Comment on above: Q3WK KEYTRUDA(PORT)LAB&OV AUTH EXP 1 * Q6WK KEYTRUDA(PORT)L AB&OV AUTH EXP 01/10/24* Start: 12-03-2023 End: 12-03-2023 Patient [...] EDT Appointment Radiation Oncology [address] [place] [address] Location: [email or web address] Comment on above: Location: [email or web address] Start: 11-28-2023 End: 11-28-2023 Patient encounter procedure 11/28/2023 2:30 PM EDT Appointment Radiation Oncology [address] [place] [address] Location: [email or web address] Comment on above: Location: [email or web address] Start: 11-27-2023 End: 11-27-2023 Patient encounter procedure 11/27/2023 2:30 PM EDT Appointment Radiation Oncology [address] [place] [address] Location: [email or web address] Comment on above: Location: [email or web address] Start: 11-26-2023 End: 11-26-2023 Patient encounter procedure Radiation Oncology Comment on above: Location: [email or web address] Location: W-ON TREAT MENT VISIT Start: 11-24-2023 Covid-19 Vaccine ( season) Covid-19 Vaccine () [facility] Start: 11-24-2023 Covid-19 Vaccine ( season) Covid-19 Vaccine () [facility] Start: 11-24-2023 Influenza vaccination [facility] Start: 11-22-2023 End: 11-22-2023 Patient encounter procedure 11/22/2023 2:30 PM EDT Appointment Radiation Oncology [address] [place] [address] Location: [email or web address] Comment on above: Location: [email or web address] Start: 11-22-2023 End: 11-22-2023 ambulatory 11/22/2023 9:00 AM EDT [facility] Center Hematology/Oncology [address] [place] [address] Q3WK KEYTRUDA(PORT)LAB&OV 11/20/AUTH EXP 01/10/24* Hematology/Oncology Comment on above: Q3WK KEYTRUDA(PORT)LAB&OV 11/20/AUTH EXP 01/10/24* Start: 11-21-2023 End: 11-21-2023 Patient encounter procedure 11/21/2023 2:30 PM EDT Appointment Radiation Oncology [address] [place] [address] Location: [email or web address] Comment on above: Location: [email or web address] Start: 11-21-2023 End: 11-21-2023 ambulatory Hematology/Oncology Comment on above: (SO)CBC/CMP(S)/TSH/T4/CORTISOL(PORT)/OV TODAY* OV(PORT)LAB EARLY/TR EATMENT 11/21* Start: 11-20-2023 End: 11-20-2023 Patient encounter procedure 11/20/2023 2:30 PM EDT Appointment [facility] [address] [place] [id number] Location: [email or web address] Comment on above: Location: [email or web address] Start: 11-19-2023 End: 11-19-2023 Patient encounter procedure Radiation Oncology Comment on above: Location: [email or web address] Location: [facility] Start: 11-18-2023 End: 11-18-2023 Patient encounter procedure 11/18/2023 2:30 PM EDT Appointment [facility] [address] [place] [id number] Location: [email or web address] Comment on above: Location: [email or web address] Start: 11-15-2023 End: 11-15-2023 Patient encounter procedure 11/15/2023 2:30 PM EDT Appointment [facility] [address] [place] [id number] Location: [email or web address] Comment on above: Location: [email or web address] Start: 11-14-2023 End: 11-14-2023 Patient encounter procedure 11/14/2023 2:30 PM EDT Appointment [facility] [address] [place] [id number] Location: [facility] Comment on above: Location: [facility] Start: 11-13-2023 End: 11-13-2023 Patient encounter procedure 11/13/2023 2:30 PM EDT Appointment Radiation Oncology [address] [place] [address] Location: [facility] Comment on above: [...] EDT Nurse Visit Radiation Oncology [address] [place] [address] Wstr, Nurse Radt [facility] [address] [place], [place] [id number] Location: [facility] Comment on above: Location: [facility] Start: 11-04-2023 End: 11-04-2023 Patient encounter procedure 11/04/2023 2:15 PM EDT Office Visit Radiation Oncology [address] [place], [place] [id number] Melony Davis MD [address] [place] [address] sim at this time Radiation Oncology Comment on above: sim at this time Start: 11-01-2023 End: 11-01-2023 ambulatory Hematology/Oncology Comment on above: Q3WK KEYTRUDA(PORT)LAB&OV EXP 1 * Start: 10-31-2023 End: 10-31-2023 ambulatory Hematology/Oncology Comment on above: (SO)CBC/CMP(S)/TSH/T4/CORTISOL(PORT)/OV TODAY* OV(PORT)LAB EARLY/TR EATMENT 10/31* OV(PORT)LAB EARLY/TR EATMENT 10/31* masci Start: 10-23-2023 End: 10-23-2023 Patient encounter procedure 10/23/2023 2:30 PM EDT Office Visit Radiation Oncology [address] [place], [place] [id number] Melony Davis MD [address] [place], [place] [id number] FOLLOLW UP/SCHED XRT* Radiation Oncology Comment on above: FOLLOLW UP/SCHED XRT* Start: 10-22-2023 End: 10-22-2023 ambulatory 10/22/2023 2:30 PM EDT Infusion Center Hematology/Oncology [address] [place] [address] CBC/CMP(S)/TSH/T4/CORTISO L/Q6WK KEYTRUDA(PORT)/AUTH EXP 01/10/24* Hematology/Oncology Comment on above: CBC/CMP(S)/TSH/T4/CORTISOL/Q6WK KEYTRUDA (PORT)/AUTH EXP 01/10/24* Start: 10-11-2023 End: 10-11-2023 ambulatory 10/11/2023 9:00 AM EDT Infusion Center Hematology/Oncology [address] [place] [address] Q3WK KEYTRUDA(PORT)LAB&OV 10/09/AUTH EXP 01/10/24* Hematology/Oncology Comment on above: Q3WK KEYTRUDA(PORT)LAB&OV 10/09/AUTH EXP 01/10/24* Start: 10-10-2023 End: 10-10-2023 ambulatory Hematology/Oncology Comment on above: (SO)CBC/CMP(S)/TSH/T4/CORTISOL(PORT)/OV TODAY* OV(PORT)LAB EARLY/TR EATMENT 10/10* Start: 09-20-2023 End: 09-20-2023 ambulatory 09/20/2023 8:30 AM EDT Infusion Center Hematology/Oncology [address] [place] [address] Q3WK KEYTRUDA(PORT)LAB&OV 09/18/AUTH EXP 01/10/24* Hematology/Oncology Comment on above: Q3WK KEYTRUDA(PORT)LAB&OV 09/18/AUTH EXP 01/10/24* Start: 09-19-2023 End: 09-19-2023 ambulatory Hematology/Oncology Comment on above: (SO)CBC/CMP(S)/TSH/T4/CORTISOL(PORT)/OV TODAY* OV(PORT)LAB EARLY/TR EATMENT 09/19* Start: 09-17-2023 End: 09-17-2023 Patient encounter procedure 09/17/2023 1:50 PM EDT Office Visit Cardiology [address] [place] [address] Malignant neoplasm of left breast in female, [...] (HCC) Expected: 08/30/2023, Expires: 11/29/2023 [facility] [employer] Work Phone: Comment on above: Expected: 08/30/2023, Expires: Start: 08-30-2023 End: 11-29-2023 Thyrotropin [Units/volume] in Serum or Plasma THYROID STIMULATING HORMONE Lab Routine Malignant neoplasm of left breast in female, estrogen receptor negative, unspecified site of breast (HCC) 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) Expected: 08/30/2023, Expires: 11/29/2023 [facility] Comment on above: Expected: 08/30/2023, Expires: Start: 08-30-2023 End: 08-30-2023 [facility] Center Hematology/Oncology Comment on above: Q3WK KEYTRUDA/DYLAN/CYTOXAN/ONPRO(PORT)L AB&OV EXP 01/10/24* order for next cycle changes to 42 days Q3WK KEYTRUDA(PORT)L AB&OV 08/28 EXP 01/10/24* Start: 08-29-2023 End: 08-29-2023 ambulatory Hematology/Oncology Comment on above: CBC/CMP(PORT)OV TODAY* OV(PORT)LAB EARLY/TR EATMENT 08/29* (SO)CBC/CMP(S)/TSH/T 4/CORTISOL(PORT)/OV TODAY* Start: 08-27-2023 End: 08-27-2023 Patient encounter procedure 08/27/2023 1:50 PM EDT Office Visit Cardiology [address] [place] [id number] Malignant neoplasm of left breast in female, estrogen receptor negative, unspeci... Cardiology Comment on above: Malignant neoplasm of left breast in fem kristine, estrogen receptor negative, unspeci... Start: 08-22-2023 End: 08-22-2023 Patient encounter procedure 08/22/2023 11:30 AM EDT Office Visit [facility] [address] [place] [address] [place] [address] [place] [address] [facility] Comment on above: regroup Start: 08-20-2023 End: 08-20-2023 Patient encounter procedure Mammogram Comment on above: right breast diag radha left breast diag us WATCH/INS COVERAGE I SSUE/SANFORD ORDERED BUT NOT IN NETWORK/right breast diag radha Start: 08-09-2023 End: 08-09-2023 [facility] Center Hematology/Oncology Comment on above: Q3WK KEYTRUDA/DYLAN/CYTOXAN/ONPRO(PORT)L [...] EDT Office Visit Cardiology [address] [place] [id number] Malignant neoplasm of left breast in female, estrogen receptor negative, unspeci... Cardiology Comment on above: Malignant neoplasm of left breast in fem kristine, estrogen receptor negative, unspeci... Start: 07-23-2023 End: 07-23-2023 Patient encounter procedure 07/23/2023 12:00 PM EDT Office Visit Cardiology [address] [place] [address] C50.812,Z17.1 (ICD-10-CM) - Malignant neoplasm of overlapping sites of left breast in female, estrogen receptor negative (HCC) Cardiology Comment on above: C50.812,Z17.1 (ICD-10-CM) - Malignant ne oplasm of overlapping sites of left breast in female, estrogen receptor negative (HCC) Start: 07-23-2023 End: 07-23-2023 ambulatory 07/23/2023 11:30 AM EDT Infusion Center Hematology/Oncology [address] [place] [address] Wstr, Lab/Port Layo [facility] [address] [place] [address] EKG* Hematology/Oncology Comment on above: EKG* Start: 07-22-2023 End: 10-21-2023 ACETYLCHOLINE REC BINDING AB ACETYLCHOLINE REC BINDING AB Lab Routine Malignant neoplasm of overlapping sites of left breast in female, estrogen receptor negative (HCC) Breast cancer metastasized to axillary lymph node, left (HCC) Palpitations Encounter for monitoring cardiotoxic drug therapy Muscle weakness Expected: 07/22/2023, Expires: 10/21/2023 [facility] Comment on above: Expected: 07/22/2023, Expires: Start: 07-22-2023 End: 10-21-2023 ACETYLCHOLINE REC BLOCKING AB ACETYLCHOLINE REC BLOCKING AB Lab Routine Malignant neoplasm of overlapping sites of left breast in female, estrogen receptor negative (HCC) Breast cancer metastasized to axillary lymph node, left (HCC) Palpitations Encounter for monitoring cardiotoxic drug therapy Muscle weakness Expected: 07/22/2023, Expires: 10/21/2023 [facility] Comment on above: Expected: 07/22/2023, Expires: Start: 07-22-2023 End: 10-21-2023 C reactive protein [Mass/volume] in Serum or Plasma C-REACTIVE PROTEIN Lab Routine Malignant neoplasm of overlapping sites of left breast in female, estrogen receptor negative (HCC) Breast cancer metastasized to axillary lymph node, left (HCC) Palpitations Encounter for monitoring cardiotoxic drug therapy Muscle weakness Expected: 07/22/2023, Expires: 10/21/2023 [facility] Comment on above: Expected: 07/22/2023, Expires: Start: 07-22-2023 End: 10-21-2023 CBC W Auto Differential panel - Blood COMPLETE BLOOD COUNT AND DIFFERENTIAL Lab STAT Malignant neoplasm of overlapping sites of left breast in female, estrogen receptor negative (HCC) Breast cancer metastasized to axillary lymph node, left (HCC) Palpitations Encounter for monitoring cardiotoxic drug therapy Muscle weakness Expected: 07/22/2023, Expires: 10/21/2023 [facility] Comment on above: Expected: 07/22/2023, Expires: Start: 07-22-2023 End: 10-21-2023 Comprehensive metabolic 2000 panel - Serum or Plasma COMPREHENSIVE METABOLIC PANEL Lab Routine Malignant neoplasm of overlapping sites of left breast in female, estrogen receptor negative (HCC) Breast cancer metastasized to axillary lymph node, left (HCC) Palpitations Encounter for monitoring cardiotoxic drug therapy Muscle weakness Expected: 07/22/2023, Expires: 10/21/2023 [facility] Comment on above: Expected: 07/22/2023, Expires: Start: 07-22-2023 End: 10-21-2023 Creatine kinase [Enzymatic activity/volume] in Serum or Plasma CREATINE KINASE/CK Lab Routine Malignant neoplasm of overlapping sites of left breast in female, estrogen receptor negative (HCC) Breast cancer metastasized to axillary lymph node, left (HCC) Palpitations Encounter for monitoring cardiotoxic drug therapy Muscle weakness Expected: 07/22/2023, Expires: 10/21/2023 [facility] Comment on above: Expected: 07/22/2023, Expires: Start: 07-22-2023 End: 10-21-2023 Erythrocyte sedimentation rate SEDIMENTATION RATE, WESTERGREN Lab Routine Malignant neoplasm of overlapping sites of left breast in female, estrogen receptor negative (HCC) Breast cancer metastasized to axillary lymph node, left (HCC) Palpitations Encounter for monitoring cardiotoxic drug therapy Muscle weakness Expected: 07/22/2023, Expires: 10/21/2023 [facility] Comment on above: Expected: 07/22/2023, Expires: Start: 07-22-2023 End: 10-21-2023 HIGH SENSITIVITY TROPONIN T HIGH SENSITIVITY TROPONIN T Lab Routine Malignant neoplasm of overlapping sites of left breast in female, estrogen receptor negative (HCC) Breast cancer metastasized to axillary lymph node, left (HCC) Palpitations Encounter for monitoring cardiotoxic drug therapy Muscle weakness Expected: 07/22/2023, Expires: 10/21/2023 [facility] Comment on above: Expected: 07/22/2023, Expires: Start: 07-22-2023 End: 10-21-2023 Magnesium [Mass/volume] in Serum or Plasma MAGNESIUM Lab Routine Malignant neoplasm of overlapping sites of left breast in female, estrogen receptor negative (HCC) Breast cancer metastasized to axillary lymph node, left (HCC) Palpitations Encounter for monitoring cardiotoxic drug therapy Muscle weakness Expected: 07/22/2023, Expires: 10/21/2023 [facility] Comment on above: Expected: 07/22/2023, Expires: Start: 07-22-2023 End: 10-21-2023 Natriuretic peptide.B prohormone N-Terminal [Mass/volume] in Serum or Plasma NT PRO BNP Lab Routine Malignant neoplasm of overlapping sites of left breast in female, estrogen receptor negative (HCC) Breast cancer metastasized to axillary lymph node, left (HCC) Palpitations Encounter for monitoring cardiotoxic drug therapy Muscle weakness Expected: 07/22/2023, Expires: 10/21/2023 [facility] Comment on above: Expected: 07/22/2023, Expires: Start: 07-22-2023 End: 10-21-2023 Phosphate [Mass/volume] in Serum or Plasma PHOSPHORUS INORGANIC Lab Routine Malignant neoplasm of overlapping sites of left breast in female, estrogen receptor negative (HCC) Breast cancer metastasized to axillary lymph node, left (HCC) Palpitations Encounter for monitoring cardiotoxic drug therapy Muscle weakness Expected: 07/22/2023, Expires: 10/21/2023 [facility] Comment on above: Expected: 07/22/2023, Expires: Start: 07-19-2023 End: 07-19-2023 ambulatory Hematology/Oncology Comment on above: Q3WK KEYTRUDA/START DYLAN/CYTOXAN/ONPRO( PORT)LAB&OV 07/17/AUTH EXP 01/10/24* Q3WK KEYTRUDA ONLY* Start: 07-18-2023 End: 07-18-2023 ambulatory Hematology/Oncology Comment on above: CBC/CMP(PORT)OV TODAY* NEUPOGEN/D4-4/AUTH E XP 01/10/24* OV(PORT)LAB&NEUPOGEN EARLY/TREATMENT 07/18* (SO)CBC/CMP(S)/TSH/T 4/CORTISOL(PORT)/OV TODAY* Start: 07-17-2023 End: 07-17-2023 ambulatory 07/17/2023 2:45 PM EDT Infusion Center Hematology/Oncology [address] [place] [address] Wstr, Injection Layo [facility] [address] [place] [address] NEUPOGEN/D3-4/AUTH EXP 01/10/24*INJ SCHED FULL Hematology/Oncology Comment on above: NEUPOGEN/D3-4/AUTH EXP 01/10/24*INJ SCHE D FULL Start: 07-17-2023 End: 07-17-2023 ambulatory 07/17/2023 11:30 AM EDT Infusion Center Hematology/Oncology [address] [place] [address] Wstr, Lab/Port [place]o [facility] [address] [place] [address] NEUPOGEN/D3-4/AUTH EXP 01/10/24*INJ SCHED FULL Hematology/Oncology Comment on above: NEUPOGEN/D3-4/AUTH EXP 01/10/24*INJ SCHE D FULL Start: 07-17-2023 End: 07-17-2023 Patient encounter procedure 07/17/2023 9:45 AM EDT Appointment [facility] [address] [place] [place] [address] Dx: Lymphadenopathy, axillary [R59.0] [facility] Comment on above: Dx: Lymphadenopathy, axillary [R59.0] Start: 07-16-2023 End: 08-13-2024 MR Breast - bilateral WO and W contrast IV MRI BREAST WO/W IVCON BILATERAL Radiology STAT Malignant neoplasm of overlapping sites of left breast in female, estrogen receptor negative (HCC) 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) Expected: 07/16/2023, Expires: 08/13/2024 [facility] Work Phone: Comment on above: Expected: 07/16/2023, Expires: Start: 07-16-2023 End: 07-16-2023 ambulatory 07/16/2023 8:45 AM EDT Infusion Center Hematology/Oncology [address] [place], [place] [id number] Wstr, Injection Layo [facility] [address] [place] [address] NEUPOGEN/D2-4/AUTH EXP 01/10/24* Hematology/Oncology Comment on above: NEUPOGEN/D2-4/AUTH EXP 01/10/24* Start: 05-07-2023 End: 08-06-2023 [facility] SEND OUT TST 1 [facility] SEND OUT TST 1 Lab Routine 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) Malignant neoplasm of left breast in female, estrogen receptor negative, unspecified site of breast (HCC) (HCC) History of right breast cancer Expected: 05/07/2023, Expires: 08/06/2023 [facility] Work Phone: Comment on above: Expected: 05/07/2023, Expires: Start: 04-22-2023 Patient discharge [facility] Start: 04-09-2023 Positron emission tomography with computed tomography [facility] Start: 03-25-2023 Behavioral Health Screening Behavioral Health Screening [facility] Start: 03-25-2023 Depression Assessment Depression Assessment [facility] Start: 11-23-2022 Covid-19 Vaccine () Covid-19 Vaccine ( season) [facility] Start: 11-23-2022 Influenza vaccination Influenza Vaccine (#1) [facility] Start: 03-25-2022 DEPRESSION ASSESSMENT DEPRESSION ASSESSMENT [facility] Start: 11-23-2021 Influenza vaccination INFLUENZA (#1) [facility] Start: 09-18-2021 End: 10-02-2021 SARS-CoV-2 (COVID-19) RNA [Presence] in Respiratory specimen by OBI with probe detection 2019 CORONAVIRUS Microbiology Routine Nausea Expected: 09/18/2021, Expires: 10/02/2021 [facility] Work Phone: Comment on above: Expected: 09/18/2021, Expires: Start: 04-17-2021 COVID-19 VACCINE (5 - Booster) COVID-19 VACCINE (5 - Booster) [facility] Start: 03-25-2021 DEPRESSION ASSESSMENT DEPRESSION ASSESSMENT [facility] Start: 2019 RSV Vaccine (1 - 1-dose 60+ series) RSV Vaccine (1 - 1-dose 60+ series) [facility] Start: 2019 RSV Vaccine (1 - Risk 60-74 years 1-dose series) RSV Vaccine (1 - Risk 60-74 years 1-dose series) [facility] Start: 06-05-2017 HPV TESTING HPV TESTING [facility] Start: 06-05-2017 PAP TESTING PAP TESTING [facility] Start: 06-05-2017 Screening for malignant neoplasm of cervix [facility] Start: 09-05-2016 End: 09-05-2016 Appointment Appointment [facility] Work Phone: Start: 08-22-2016 End: 08-22-2016 Appointment Appointment [facility] Work Phone: Start: 05-10-2016 Mammography MAMMOGRAM [facility] Start: 05-10-2016 Screening for malignant neoplasm of breast Mammogram Screening [facility] Start: 06-05-2013 Screening for malignant neoplasm of cervix Cervical Cancer Screening [facility] Start: 2009 SHINGRIX VACCINE (1 of 2) SHINGRIX VACCINE (1 of 2) [facility] Start: 2004 COLOGUARD (FIT-DNA) COLOGUARD (FIT-DNA) [facility] Start: [address] COLONOGRAPHY [facility] Start: 2004 DIABETES SCREEN DIABETES SCREEN [facility] Start: 2004 Diabetes Screening Diabetes Screening [facility] Start: 2004 FECAL OCCULT BLOOD FECAL OCCULT BLOOD [facility] Start: 2004 Lipid panel Lipid Screening [facility] Start: 2004 LIPID SCREEN LIPID SCREEN [facility] Start: 2004 Screening for malignant neoplasm of colon [facility] Start: 2004 SIGMOIDOSCOPY SIGMOIDOSCOPY [facility] Start: 1978 Urine microalbumin profile DTAP,TDAP,TD (1 - Tdap) [facility] Start: 1977 Anxiety Screening Anxiety Screening [facility] Start: 1977 Depression Screening Depression Screening [facility] Start: 1977 HEPATITIS C SCREENING HEPATITIS C SCREENING [facility] Start: 1977 Hepatitis C screening Hepatitis C Screening [facility] Start: 1977 HIV SCREENING HIV SCREENING [facility] Start: 1977 HIV screening HIV Screening [facility] Start: 1971 Adult depression screening assessment DEPRESSION SCREENING [facility] Start: 1965 Pneumococcal vaccination Pneumococcal Vaccine (1 of 2 - PCV) [facility] CANCER SEEK [facility] NCER SEEK Lab Routine 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) 09/24/2024 10:30 PM EDT [facility] Work Phone: CBC W Auto Different ial panel - Blood CBC + DIFF Lab STAT Malignant neoplasm of left breast in female, estrogen receptor negative, unspecified site of breast (HCC) Breast cancer metastasized to axillary lymph node, left (HCC) Malaise and fatigue 07/04/2023 1:20 PM EDT [facility] Work Phone: Chronic hepatitis differentiation between hepatitis B and C virus panel - Serum or Plasma HEP REMOTE PANEL BL Lab Routine Malignant neoplasm of overlapping sites of left breast in female, estrogen receptor negative (HCC) Triple negative breast cancer (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) 07/28/2024 10:48 AM EDT [facility] Work Phone: Cortisol [Mass/volum e] in Serum or Plasma CORTISOL BLD Lab Routine Malignant neoplasm of left breast in female, estrogen receptor negative, unspecified site of breast (HCC) Breast cancer metastasized to axillary lymph node, left (HCC) Malaise and fatigue 07/04/2023 1:20 PM EDT [facility] Work Phone: Cortisol [Mass/volum e] in Serum or Plasma CORTISOL BLD Lab Routine Malignant neoplasm of left breast in female, estrogen receptor negative, unspecified site of breast (HCC) Breast cancer metastasized to axillary lymph node, left (HCC) Malaise and fatigue 10/22/2023 1:24 PM EDT [facility] Cortisol [Mass/volum e] in Serum or Plasma CORTISOL BLD Lab Routine Malignant neoplasm of left breast in female, estrogen receptor negative, unspecified site of breast (HCC) Breast cancer metastasized to axillary lymph node, left (HCC) Malaise and fatigue 12/02/2023 1:59 PM EDT [facility] Cortisol [Mass/volum e] in Serum or Plasma CORTISOL BLD Lab Routine Malignant neoplasm of left breast in female, estrogen receptor negative, unspecified site of breast (HCC) Breast cancer metastasized to axillary lymph node, left (HCC) Malaise and fatigue 01/13/2024 1:16 PM EDT [facility] Cortisol [Mass/volum e] in Serum or Plasma CORTISOL BLD Lab Routine Malignant neoplasm of left breast in female, estrogen receptor negative, unspecified site of breast (HCC) Breast cancer metastasized to axillary lymph node, left (HCC) Malaise and fatigue 02/24/2024 2:05 PM [facility] End: 03-25-2025 CT Abdomen and Pelvis W contrast IV CT ABD/PEL W IVCON Radiology Routine Malignant neoplasm of left breast in female, estrogen receptor negative, unspecified site of breast (HCC) Breast cancer metastasized to axillary lymph node, left (HCC) 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) 1 Occurrences starting 02/24/2024 until 03/25/2025 [facility] Work Phone: Comment on above: 1 Occurrences starting 02/24/2024 until 03/25/2025 End: 06-17-2025 CT Abdomen and Pelvis W contrast IV CT ABD/PEL W IVCON Radiology Routine Breast cancer metastasized to axillary lymph node, left (HCC) Malignant neoplasm of overlapping sites of left breast in female, estrogen receptor negative (HCC) 1 Occurrences starting 05/20/2024 until 06/17/2025 [facility] Comment on above: 1 Occurrences starting 05/20/2024 until 06/17/2025 CT Abdomen and Pelvi s W contrast IV CT ABD/PEL W IVCON Radiology Routine Breast cancer metastasized to axillary lymph node, left (HCC) Malignant neoplasm of overlapping sites of left breast in female, estrogen receptor negative (HCC) 05/25/2024 3:34 PM [facility] End: 03-25-2025 CT Chest W contrast IV CT CHEST W IVCON Radiology Routine Malignant neoplasm of left breast in female, estrogen receptor negative, unspecified site of breast (HCC) Breast cancer metastasized to axillary lymph node, left (HCC) 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) 1 Occurrences starting 02/24/2024 until 03/25/2025 [facility] Comment on above: 1 Occurrences starting 02/24/2024 until 03/25/2025 End: 06-19-2025 CT Chest W contrast IV CT CHEST W IVCON Radiology Routine Breast cancer metastasized to axillary lymph node, left (HCC) Malignant neoplasm of overlapping sites of left breast in female, estrogen receptor negative (HCC) 1 Occurrences starting 05/20/2024 until 06/19/2025 [facility] Work Phone: Comment on above: 1 Occurrences starting 05/20/2024 until 06/19/2025 CT Chest W contrast IV CT CHEST W IVCON Radiology Routine Breast cancer metastasized to axillary lymph node, left (HCC) Malignant neoplasm of overlapping sites of left breast in female, estrogen receptor negative (HCC) 05/25/2024 3:34 PM [facility] Work Phone: End: 10-22-2025 CT Chest W contrast IV CT CHEST W IVCON Radiology STAT Malignant neoplasm of overlapping sites of left breast in female, estrogen receptor negative (HCC) 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) Triple negative breast cancer (HCC) Left arm numbness 1 Occurrences starting 09/22/2024 until 10/22/2025 [facility] Work Phone: Comment on above: 1 Occurrences starting 09/22/2024 until 10/22/2025 CT Chest W contrast IV CT CHEST W IVCON Radiology STAT Malignant neoplasm of overlapping sites of left breast in female, estrogen receptor negative (HCC) 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) Triple negative breast cancer (HCC) Left arm numbness 09/22/2024 7:42 PM EDT [facility] CT Guidance for radi ation treatment of Unspecified body region CT SIM PLANNING RADIATION ONCOLOGY Radiology Routine Malignant neoplasm of upper-outer quadrant of left breast in female, estrogen receptor negative (HCC) Ordered: 10/30/2023 [facility] Work Phone: Comment on above: Ordered: 10/30/2023 Diagnostic mammograp hy computer-aided detcj uni RADHA DIAGNOSTIC RT Radiology Routine Abnormal mammogram 10/09/2021 2:35 PM EDT [facility] Work Phone: [id number] GENOTYPI NG PANEL [id number] GENOTYPING PANEL Lab Routine Triple negative breast cancer (HCC) 11/17/2024 11:35 AM EDT [facility] End: 07-21-2024 ECG COMPLETE ECG COMPLETE ECG Routine Malignant neoplasm of overlapping sites of left breast in female, estrogen receptor negative (HCC) Breast cancer metastasized to axillary lymph node, left (HCC) Palpitations Encounter for monitoring cardiotoxic drug therapy Muscle weakness 1 Occurrences starting 07/22/2023 until 07/21/2024 [facility] Work Phone: Comment on above: 1 Occurrences starting 07/22/2023 until 07/21/2024 End: 07-17-2024 Echocardiography ECHO Cardiology Routine Malignant neoplasm of left breast in female, estrogen receptor negative, unspecified site of breast (HCC) Breast cancer metastasized to axillary lymph node, left (HCC) Encounter for monitoring cardiotoxic drug therapy Every 3 weeks for 3 Occurrences starting 07/18/2023 until 07/17/2024 [facility] Work Phone: Comment on above: Every 3 weeks for 3 Occurrences starting 07/18/2023 until 07/17/2024 End: 07-21-2024 Echocardiography ECHO Cardiology STAT Malignant neoplasm of overlapping sites of left breast in female, estrogen receptor negative (HCC) Breast cancer metastasized to axillary lymph node, left (HCC) Palpitations Encounter for monitoring cardiotoxic drug therapy Muscle weakness 1 Occurrences starting 07/22/2023 until 07/21/2024 [facility] Comment on above: 1 Occurrences starting 07/22/2023 until 07/21/2024 End: 02-02-2023 EGD DIAGNOSTIC EGD DIAGNOSTIC Endoscopy Routine Gastroesophageal reflux disease, unspecified whether esophagitis present Epigastric pain 1 Occurrences starting 02/02/2022 until 02/02/2023 [facility] Work Phone: Comment on above: 1 Occurrences starting 02/02/2022 until 02/02/2023 Hepatitis B virus co re Ab [Presence] in Serum HEPATITIS B CORE ANTIBODY TOTAL Lab Routine Malignant neoplasm of overlapping sites of left breast in female, estrogen receptor negative (HCC) Triple negative breast cancer (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) 07/28/2024 10:48 AM EDT [facility] Hepatitis B virus hastings rface Ab [Presence] in Serum HEPATITIS B SURFACE ANTIBODY Lab Routine Malignant neoplasm of overlapping sites of left breast in female, estrogen receptor negative (HCC) Triple negative breast cancer (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) 07/28/2024 10:48 AM T [facility] Hepatitis B virus hastings rface Ag [Presence] in Serum HEPATITIS B SURFACE ANTIGEN Lab Routine Malignant neoplasm of overlapping sites of left breast in female, estrogen receptor negative (HCC) Triple negative breast cancer (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) 07/28/2024 10:48 AM T [facility] Hepatitis C virus Ab [Presence] in Serum HEPATITIS C ANTIBODY IA WITH CONFIRMATION Lab Routine Malignant neoplasm of overlapping sites of left breast in female, estrogen receptor negative (HCC) Triple negative breast cancer (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) 07/28/2024 10:48 AM T [facility] Influenza virus A an d B RNA and SARS-CoV-2 (COVID-19) N gene panel - Respiratory specimen by OBI with probe detection COVID WITH FLUA+B, ROUTINE Microbiology Routine Flu-like symptoms 06/12/2022 9:59 AM [facility] Work Phone: End: 05-10-2024 RADHA DIAGNOSTIC [...] breast 1 Occurrences starting 04/11/2023 until 05/10/2024 [facility] Work Phone: Comment on above: 1 Occurrences starting 04/11/2023 until 05/10/2024 End: 08-23-2024 MG Breast - right Diagnostic for implant RADHA DIAGNOSTIC RIGHT Radiology Routine Malignant neoplasm of left breast in female, estrogen receptor negative, unspecified site of breast (HCC) 1 Occurrences starting 07/25/2023 until 08/23/2024 [facility] Work Phone: Comment on above: 1 Occurrences starting 07/25/2023 until 08/23/2024 MISC SEND OUT TST 1 MISC SEND OU T TST 1 Lab Routine 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) Malignant neoplasm of left breast in female, estrogen receptor negative, unspecified site of breast (HCC) (HCC) History of right breast cancer 05/10/2023 11:49 AM [facility] Work Phone: MR Brachial plexus - left WO and W contrast IV MRI BRACHIAL PLEXUS WO/W IVCON LEFT Radiology Routine Brachial plexus disorders 10/22/2024 9:52 AM EDT [facility] Work Phone: End: 12-16-2025 MR Brachial plexus - left WO and W contrast IV MRI BRACHIAL PLEXUS WO/W IVCON LEFT Radiology STAT Brachial plexus disorders 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) Breast cancer metastasized to axillary lymph node, left (HCC) Triple negative breast cancer (HCC) Neuropathy, arm, left 1 Occurrences starting 11/16/2024 until 12/16/2025 [facility] Work Phone: Comment on above: 1 Occurrences starting 11/16/2024 until 12/16/2025 MR Breast - bilatera l WO and W contrast IV MRI BREAST WO/W IVCON BILATERAL Radiology STAT Malignant neoplasm of overlapping sites of left breast in female, estrogen receptor negative (HCC) 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) 07/17/2023 11:05 AM EDT [facility] Work Phone: End: 08-13-2024 MRI BREAST 3D POST PROCESSING MRI BREAST 3D POST PROCESSING Radiology Routine Malignant neoplasm of overlapping sites of left breast in female, estrogen receptor negative (HCC) 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) 1 Occurrences starting 07/15/2023 until 08/13/2024 [facility] Comment on above: 1 Occurrences starting 07/15/2023 until 08/13/2024 MRI BREAST 3D POST PROCESSING MRI BREAST 3D POST PROCESSING Radiology Routine Malignant neoplasm of overlapping sites of left breast in female, estrogen receptor negative (HCC) 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) 07/17/2023 11:05 AM EDT [facility] Patient Education [facility] Now in Work Phone: Patient referral [facility] Work Phone: End: 09-20-2024 PET+CT Guidance for localization of tumor of Skull base to mid-thigh-- W 18F-FDG IV NM PET/CT SKULL-THIGH SUBSEQUENT Radiology Routine Malignant neoplasm of overlapping sites of left breast in female, estrogen receptor negative (HCC) Breast cancer metastasized to axillary lymph node, left (HCC) Triple negative breast cancer (HCC) 1 Occurrences starting 08/22/2023 until 09/20/2024 [facility] Work Phone: Comment on above: 1 Occurrences starting 08/22/2023 until 09/20/2024 SURGICAL PATHOLOGY SURGICAL PATH OLOGY Lab Routine Abnormal mammogram 10/09/2021 1:58 PM EDT [facility] Work Phone: Thyrotropin [Units/volume] in Serum or Plasma TSH BLD Lab Routine Malignant neoplasm of left breast in female, estrogen receptor negative, unspecified site of breast (HCC) Breast cancer metastasized to axillary lymph node, left (HCC) Malaise and fatigue 07/04/2023 1:20 PM EDT [facility] Work Phone: Thyrotropin [Units/volume] in Serum or Plasma THYROID STIMULATING HORMONE Lab Routine Malignant neoplasm of left breast in female, estrogen receptor negative, unspecified site of breast (HCC) 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) 10/22/2023 1:24 PM EDT [facility] Thyrotropin [Units/volume] in Serum or Plasma TSH BLD Lab Routine Malignant neoplasm of left breast in female, estrogen receptor negative, unspecified site of breast (HCC) Breast cancer metastasized to axillary lymph node, left (HCC) Malaise and fatigue 12/02/2023 1:59 PM T [facility] Work Phone: Thyrotropin [Units/volume] in Serum or Plasma TSH BLD Lab Routine Malignant neoplasm of left breast in female, estrogen receptor negative, unspecified site of breast (HCC) Breast cancer metastasized to axillary lymph node, left (HCC) Malaise and fatigue 01/13/2024 1:16 PM EDT [facility] Work Phone: Thyrotropin [Units/volume] in Serum or Plasma TSH BLD Lab Routine Malignant neoplasm of left breast in female, estrogen receptor negative, unspecified site of breast (HCC) Breast cancer metastasized to axillary lymph node, left (HCC) Malaise and fatigue 02/24/2024 2:05 PM [facility] Work Phone: Thyroxine (T4) free [Mass/volume] in Serum or Plasma T4 FREE/FREE THYROX Lab Routine Malignant neoplasm of left breast in female, estrogen receptor negative, unspecified site of breast (HCC) Breast cancer metastasized to axillary lymph node, left (HCC) Malaise and fatigue 07/04/2023 1:20 PM [facility] Work Phone: Thyroxine (T4) free [Mass/volume] in Serum or Plasma T4 FREE/FREE THYROX Lab Routine Malignant neoplasm of left breast in female, estrogen receptor negative, unspecified site of breast (HCC) Breast cancer metastasized to axillary lymph node, left (HCC) Malaise and fatigue 10/22/2023 1:24 PM [facility] Work Phone: Thyroxine (T4) free [Mass/volume] in Serum or Plasma T4 FREE/FREE THYROX Lab Routine Malignant neoplasm of left breast in female, estrogen receptor negative, unspecified site of breast (HCC) Breast cancer metastasized to axillary lymph node, left (HCC) Malaise and fatigue 12/02/2023 1:59 PM [facility] Thyroxine (T4) free [Mass/volume] in Serum or Plasma T4 FREE/FREE THYROX Lab Routine Malignant neoplasm of left breast in female, estrogen receptor negative, unspecified site of breast (HCC) Breast cancer metastasized to axillary lymph node, left (HCC) Malaise and fatigue 01/13/2024 1:16 PM EDT [facility] Thyroxine (T4) free [Mass/volume] in Serum or Plasma T4 FREE/FREE THYROX Lab Routine Malignant neoplasm of left breast in female, estrogen receptor negative, unspecified site of breast (HCC) Breast cancer metastasized to axillary lymph node, left (HCC) Malaise and fatigue 02/24/2024 2:05 PM EST [facility] Tissue Pathology bio psy report SURGICAL PATHOLOGY Lab Routine Axillary mass, right 11/04/2024 3:23 PM EDT [facility] Work Phone: End: 08-23-2024 US Breast - left limited US BREAST LTD LEFT Radiology Routine Malignant neoplasm of left breast in female, estrogen receptor negative, unspecified site of breast (HCC) 1 Occurrences starting 07/25/2023 until 08/23/2024 [facility] Comment on above: 1 Occurrences starting 07/25/2023 until 08/23/2024 US BREAST BIOPSY LEF T (POC) SURG USE ONLY US BREAST BIOPSY LEFT (POC) SURG USE ONLY Imaging Procedures Routine 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) Ordered: 04/11/2023 [facility] Work Phone: Comment on above: Ordered: 04/11/2023 End: 05-10-2024 US BREAST LTD LEFT US BREAST LTD LEFT Radiology Routine Malignant neoplasm of left breast in female, estrogen receptor negative, unspecified site of breast (HCC) (HCC) Breast cancer metastasized to axillary lymph node, left (HCC) Abnormal MRI, breast 1 Occurrences starting 04/11/2023 until 05/10/2024 [facility] Work Phone: Comment on above: 1 Occurrences starting 04/11/2023 until 05/10/2024 End: 05-10-2024 US BREAST LTD RIGHT US BREAST LTD RIGHT Radiology Routine History of right breast cancer Abnormal MRI, breast 1 Occurrences starting 04/11/2023 until 05/10/2024 [facility] Work Phone: Comment on above: 1 Occurrences starting 04/11/2023 until 05/10/2024 End: 06-16-2024 US Carotid arteries - bilateral US CAROTID ARTERIES [facility] Vascular Lab Routine Pulsatile tinnitus 1 Occurrences starting 06/17/2023 until 06/16/2024 [facility] Work Phone: Comment on above: 1 Occurrences starting 06/17/2023 until 06/16/2024 [facility] Immunizations Immunization Date Immunization Notes Care Provider Fa ray 12-27-2023 influenza virus vaccine, unspecified formulation Treatment Ws Work Phone: [facility] 02-20-2021 COVID-19 vaccine, fu ll dose (MODERNA) Joseph Vann MD Work Phone: [facility] Work Phone: 12-20-2020 influenza virus vaccine, unspecified formulation Vale Carpenter MD Work Phone: [facility] 06-24-2020 COVID-19 vaccine, ag e 12+ yr (PFIZER-BIONTECH - PURPLE TOP) Joseph Vann MD Work Phone: [facility] Work Phone: 06-03-2020 COVID-19 vaccine, ag e 12+ yr (PFIZER-BIONTECH - PURPLE TOP) Joseph Vann MD Work Phone: [facility] Work Phone: 01-05-2015 influenza virus vaccine, unspecified formulation Joseph Vann MD Work Phone: [facility] Payers Date Payer Category Payer Unknown [id number] 2024 Medicare [id number] 2024 Private Health Insurance [id number] 2024 Self-pay [id number] 2024 Medicare [id number] 2024 Medicare [id number] 2021 Unknown EMIGDIOJUMA EMIGDIOJUMA KEZIA LINDA O ZOEY [id number] 2021-[facility] [phone] [address] [place] [address] O [id number] 2021 Unknown [id number] 2021 Unknown [id number] 2003 Private Health Insurance [id number] 1959 Unknown [id number] .62 1959 Unknown [id number] .[id number] 627 1959 Unknown [id number] .[id number] .627 1959 Unknown [id number] .840.1.065502.3.579.2 62 1959 Unknown [id number] .840.1.362826.3.579.2 .62 1959 Unknown [id number] .[id number] .627 1959 Unknown [id number] .[id number] .627 1959 Unknown [id number] .[id number] .627 1959 Unknown [id number] 2.16.840.1.388324.3.579.2 .627 1959 Unknown [id number] 2.16.840.1.437762.3.579.2 .627 1959 Unknown [id number] 2.16.840.1.777443.3.579.2 .627 Unknown [facility] PACKAGE PLAN [id number] Unknown [id number] 2.16.840.1.096045.3.579.2 .462 Unknown [id number] 2.16.840.1.606654.3.579.2 .462 Unknown [id number] 2.16.840.1.093451.3.579.2 .462 Unknown [id number] 2.16.840.1.183253.3.579.2 .462 Unknown [id number] 2.16.840.1.397061.3.579.2 .462 Unknown [id number] 2.16.840.1.320345.3.579.2 .462 Unknown [id number] 2.16.840.1.868178.3.579.2 .462 Unknown [id number] 2.16.840.1.078295.3.579.2 .462 Unknown [id number] 2.16.840.1.997334.3.579.2 .462 Unknown [id number] 2.16.840.1.236908.3.579.2 .462 Social History Date Type Detail Facility Start: 02-02-2022 End: 12-23-2023 Tobacco smoking status PAIS Ex-smoker [facility] Work Phone: Start: 08-23-1981 End: 08-24-1983 History of tobacco use Current smoker [facility] Work Phone: Start: 08-23-1981 End: 08-24-1983 History of tobacco use Cigarette Smoker [facility] Work Phone: Start: 09-18-2021 End: 06-01-2024 Alcohol intake Current non-drinker of alcohol (finding) [facility] Start: 1960 Sex Assigned At Not on file [facility] Start: 02-21-2020 End: 04-18-2023 Tobacco smoking status NHIS Unknown if ever smoked [facility] Start: 01-25-2020 Non-smoker [facility] Start: 1960 Sex Assigned At Female W [facility] Start: 09-29-2021 End: 02-02-2022 Exposure to SARS-CoV-2 (event) Not sure [facility] Start: 02-02-2022 End: 12-23-2023 Tobacco use and exposure Smokeless tobacco non-user [facility] Start: 02-02-2022 Tobacco Comment in her early 2 0's, none now [facility] Start: 03-12-2023 End: 12-08-2024 History of Social function [facility] Start: 03-12-2023 End: 12-08-2024 Tobacco use panel [facility] Start: 02-24-2012 National Score (1-10 0), lower number is lower risk 64 [facility] Start: 07-01-2024 Sex Female (finding) [facility] Start: 04-18-2023 End: 01-10-2025 Tobacco smoking status NHIS Never smoked tobacco (finding) [facility] Start: 07-17-2024 End: 12-08-2024 Alcoholic beverage intake Ex-drinker (finding) [facility] Medical Equipment Procedure Code Equipment Code Equipment Origin al Text Equipment Identifier Dates Insertion, vascular access port ([id number]) Vascular port/catheter ([id number] FDA Start: 04-22-2023 Goals Date Patient Goal Desired Activity /State Functional Status Date Assessment Result Facility 10-02-2023 Functional Status ice on, ice off [facility] 10-02-2023 Functional Status Maintained [facility] 09-23-2023 Functional Status Sensory Deficits None A [facility] 12-03-2013 Are you deaf, or do you have serious difficulty hearing No 12/03/2013 11:08 AM EDT Jennifer Dawn MA No [facility] 12-03-2013 Are you blind, or do you have serious difficulty seeing, even when wearing glasses No 12/03/2013 11:08 AM EDT Jennifer Dawn MA No [facility] 12-03-2013 Do you have serious difficulty walking or climbing stairs No 12/03/2013 11:08 AM EDT Jennifer Dawn MA No [facility] 12-03-2013 Do you have difficul ty dressing or bathing No 12/03/2013 11:08 AM EDT Jennifer Dawn MA [facility] 12-03-2013 Because of a physica l, mental, or emotional condition, do you have difficulty doing errands alone such as visiting a physician's office or shopping No 12/03/2013 11:08 AM EDT Jennifer Dawn MA [facility] Mental Status Date Assessment Result Facility 01-10-2025 Cognitive function Level Of Cons ciousness Awake [facility] Work Phone: 10-02-2023 Mental Status Oriented x [facility] 10-02-2023 Mental Status [facility] 04-22-2023 Cognitive function Voice/Name [facility] Work Phone: 12-03-2013 Because of a physica l, mental, or emotional condition, do you have serious difficulty concentrating, remembering, or making decisions No 12/03/2013 11:08 AM EDT Jennifer Dawn MA No [facility] Clinical Notes 09-18-2021 to 01-18-2025 Note Date & Type Note Facility 01-18-2025 Note [facility] 01-10-2025 Discharge summary [facility] 01-10-2025 Radiology Diagnostic study note [facility] Imaging Services [address] [place], [place] [id number] Chest PA and Lateral MR#: [id number] Acct: [id number] Name: PIEDADEverette SHELLIE Rep #: [id number] : 1960 F 64 From: Pet er Peer DO PCP: Dr. Hellen Lafleur MD Status: REG E R Study:Chest PA and Lateral Date of Exam: 01/10/25 Exam# [id number] Ordering Dr: Ajay Meng DO PROCEDURE: CHEST PA AND LATERAL 01/10/2025 [...] Lateral IMPRESSION: No acute process. Reading Location: [facility] CC: Dr. Ajay Burnett DO; Dr. Hellen Lafleur MD ~ Architectural Inspector: Signed [facility] 01-10-2025 Discharge summary Note Date/Time January 10, 2025 7:55pm [facility] Medical Records Department [address] [place] [address] Emergency Department Summary 01/10/25 MR#: [id number] Acct: [id number] Name: Everette HERBERT Rep #:[id number] : 1960 64 From: Ajay fraire DO PCP: Dr. Hellen Lafleur MD Status:REG E R Location: ED HPI History of Present Illness [...] she developed nasal congestion and sore throat. Statesher sore throat has already improved today. States [...] on the chart. Reviewed. Physical exam: Gen: A&O x3, NAD Head: Normocephalic, atraumatic Eyes: No [...] intact Psych: Cooperative, appropriate mood and affect [facility] Medical History (Updated 04/29/24 @ 13:09 by Kenn Amin) Encounter for insertion of venous access port Wears contact lenses Post-menopausal Cancer Heartburn Non-smoker History of retinal tear Gallbladder polyp Anxiety GERD (gastroesophageal reflux disease) Breast cancer Diarrhea Arthritis Home Medications ?Medication ?Instructions ?Recorded ?Last Taken ?Type paroxetine HCl 30 mg tablet 30 mg PO DAILY anxiety 02/1104/22/23 History Saccharomyces boulardii 250 mg 250 mg PO BID digestion /probiotic 12/18/19 04/21/23 History capsule ondansetron HCl 8 mg tablet 4 - 8 mg PO Q8H PRN PRN Na usea 12/18/19 Unknown History calcium carbonate (Calcium 600) 800 mg PO DAILY 04/21/23 History cholecalciferol (vitamin D3) 25 25 mcg PO DAILY 04/21/23 History mcg (1,000 unit) capsule magnesium oxide 500 mg capsule 250 mg PO DAILY 4 04/21/23 History multivitamin (Daily Multi-Vitamin 1 tab PO DAILY 04/1804/21/23 History tablet) Allergy/AdvReac Type Severity Reaction Status Date / Time sulfamethoxazole (From Allergy Unknown Nausea/Vom/ Verified 04/29/24 13:10 Bactrim) Diarrhea trimethoprim (From Bactrim) Allergy Unknown Nausea/Vom/ Verified 04/29/24 13:10 Diarrhea Family History (Updated 04/17/23 @ 08:22 by Kenn Amin) Grandfather Diabetes Grandmother Hypertension CVA (cerebral vascular accident) Surgical History History of colonoscopy (~01/2020) History of esophagogastroduodenoscopy (EGD) (~01/2020) History of breast augmentation (~2006) History of tubal ligation (~1992) History of lumpectomy History of colonoscopy (~2014) Social History Smoking Status: Never smoker alcohol [...] states her last chemotherapy was Friday 01/05. Patient states yesterday she developed nasal congestion and sore throat. States her sore throat has already improved today. States she developed a fever in which she called oncology and they told her to present to the emergency department. Patient follows with Dr. Zhu. On presentation, patient had a temperature of 102.7 ?F at triage. She is now afebrile. Differential diagnosis includes but is not limited to viral illness, pneumonia, electrolyte abnormality, dehydration, UTI, bacteremia, neutropenia. NS bolus ordered. Infectious workup ordered. CBC with leukocytosis of 27.4. Patient has anemia of 10. Platelets unremarkable. Will start broad-spectrum antibioticsincluding vancomycin and Zosyn given patient has leukocytosis and immunocompromised. Coagulation panel unremarkable. CMP unremarkable. Lactic acid unremarkable. COVID, flu, RSV negative. UA pending at this time. Patientwas updated of the results thus far. She states she is currently on Neupogen which I did not know. This actually might be the source of her leukocytosis. UA negative for UTI. At this point in time, no clear etiology for patient's fever although I suspect viral illness. Her fever has resolved. Oncology consulted and patient was discussed with on-call provider for Dr. Zhu. Agreesthat leukocytosis is likely secondary to Neupogen. Okay for discharge home. Follow-up with Dr. Zhu and call the office tomorrow to make an appointment. Patient was updated of all the results and confirmed understand the plan. Patient will discharge home. Return precautions explained. EKG: Interpreted by me/EM physician: EKG shows normal sinus rhythm with nonspecific ST changes. Heart rate 91. Diagnostic: Interpreted by me/EM physician: Chest x-ray without pneumonia, effusion, cardiomegaly, pneumothorax Impression: 1. Fever with history of immunocompromised secondary to chemotherapy for breastcancer 2. Leukocytosis on Neupogen 3. Anemia 4. Suspect viral illness Lab Data Labs: Laboratory Results - last 24 hr 01/10/25 01/10/25 15:52 17:49 WBC 27.4 H RBC 3.12 L Hgb 10.0 L Hct 29.0 L MCV 92.9 MCH 32.1 H MCHC 34.5 RDW Std Deviation 52.3 H RDW Coeff of Johnny 15.4 H Plt Count 316 MPV 8.9 Immature Gran % (Auto) 1.600 H Neut % (Auto) 81.1 H Lymph % (Auto) 3.5 L Larue % (Auto) 10.8 H Eos % (Auto) 2.9 Baso % (Auto) 0.1 Absolute Neuts (auto) 22.2 H Absolute Lymphs (auto) 0.95 Nucleated RBC % 0 Platelet Estimate ADEQUATE RBC Morphology NORM C+C PT 13.7 INR 1.0 APTT 27.5 Sodium 133 Potassium 3.4 Chloride 96 L Carbon Dioxide 26.5 Anion Gap 11 BUN 7 Creatinine 0.71 Estim Creat Clear Calc 61.10 Est GFR (MDRD) Non-Af 94 BUN/Creatinine Ratio 9.7 L Glucose 122 H Lactic Acid < 1.0 Calcium 8.9 Total Bilirubin 0.19 AST 19 ALT 11 Alkaline Phosphatase 179 H Total Protein 6.2 Albumin 4.2 Globulin 2.0 L Albumin/Globulin Ratio 2.1 Urine Color Straw Urine Clarity Clear Urine pH 7.0 Ur Specific [place] 1.005 Urine Protein Negative Urine Glucose (UA) Normal Urine Ketones Negative Urine Occult Blood Negative Urine Nitrite Negative Urine Bilirubin Negative Urine Urobilinogen Normal Ur Leukocyte Esterase Negative Urine RBC 0 SEEN Urine WBC 0 SEEN Ur Squamous Epith Cells 0 SEEN Urine Bacteria 0 SEEN Urine Mucus 0 SEEN Radiography Diagnostic Testing: Clinical Impression(s) from Imaging Studies Chest X-Ray 01/10/25 15:35 IMPRESSION: No acute process. Reading Location: [facility] Discharge Plan Triage Chief Complaint: Fever ED Provider: Ajay Burnett Dx/Rx/DC Orders Prescriptions: No Action paroxetine HCl 30 mg [...] [Daily Multi-Vitamin] Tablet 1 tab PO DAILY Primary Care Provider: Hellen Lafleur Referrals: Hellne Lafleur MD [Primary Care Provider, Family Practice] Print Language: Mosotho What to do if you have Problems For any increased pain, shortness of breath, bleeding, nausea or vomiting, chestpain, or any unexpected problems, contact your Primary Care Provider. Call [facility] ([phone]) or report to the closest Emergency Room. Call 911 if necessary. 01/10/251854 <Electronically signed by Ajay Burnett DO> Cosigner Signature (if applicable): CC: Dr. Hellen Lafleur MD ~ Signed [facility] Work Phone: 1(258) 550-408010-09-2025 [facility]10-09-2025 [facility]10-07-2025 NoteHNO ID: [id number] Author: BLANKA DEL RIO, RN Service: ? Author Type: Registered Nurse Type: Progress Notes Filed: 12/29/2024 15:31 Note Text: Assessment unchanged from Dr Zhu [facility]28[facility]24[facility]09-16-2025 Telephone encounter Note* Telephone Encounter - Meka Gilbert - 12/08/2024 11:34 AM EDT NO AVS - FUTURE OV/TX ARE SCHEDULED ALREADY [facility]09-16-2025 Miscellaneous Notes* Telephone Encounter - Meka Gilbert - 12/08/2024 11:34 AM EDT NO AVS - FUTURE OV/TX ARE SCHEDULED ALREADY documented in this encounterMercy Health [facility]09-16-2025 [facility]09-16-2025 History of Present illness Narrative* Hellen Zhu DO - 12/08/2024 10:44 AM EDT Oncologic problem(s): 1) 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 Diagnosed with lymphocytic colitis about 3 years ago. Abdominal pain/diarrhea. Treated with probiotic and magnesium supplement. Had MRI brain and PET scan at [facility] on 04/09. MRI reported with LEFT [...] 3 of which were included within the [id number] measuring up to 2.8 cm. No internal [...] was discussed with the patient or authorized commissary representative. The patient or authorized commissary representative has agreed to proceed with the sensitive examination. 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 PHYSICAL EXAM: Vitals: Blood pressure 109/62, pulse [...] testing: [facility] 05/10/2023 negative for germline mutation. 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 Recent MRI done at [facility] prior to starting Trodelvy suggested tumor was stable when compared with previous MRI. No positive symptoms of the sensory component so no medical therapy indicated currently. Plan: - Continue current therapy. - She has surgical opinion scheduled with Dr. Merino next week. 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 Plan: -Surgical resection if triple negative disease response well and there is window of opportunity. Portions of this documentation were copied and pasted from my previous office visit note dated 11/16/2024 in order to provide a cohesive continuity of the history. The note has been reviewed and edited and updated as necessary. Hellen Zhu DO documented in this encounterMer[facility]09-10-2025 Telephone encounter Note * Telephone Encounter - Brielle Mcbride LPN - 12/02/2024 5:24 PM EDT Patient is aware of all information. LYUBOV Hensley wanted you to know that the Trodelvy has almost totally eradicated all the spots on my skin. Brielle Mcbride LPN [facility]09-10-2025 Miscellaneous Notes* Telephone Encounter - Brielle Mcbride LPN - 12/02/2024 5:24 PM EDT Patient is aware of all information. LYUBOV Hensley wanted you to know that the Trodelvy has almost totally eradicated all the spots on my skin. Brielle Mcbride LPN * Telephone Encounter - Hellen Zhu DO - 12/02/2024 5:16 PM EDT Can let her know the radiologist that interpreted the MRI felt there was no change in size of the tumor abutting the brachial plexus which is good. Hellen Zhu DO documented in this encounterMercy [facility]09-10-2025 Telephone encounter Note * Telephone Encounter - Hellen Zhu DO - 12/02/2024 5:16 PM EDT Can let her know the radiologist that interpreted the MRI felt there was no change in size of the tumor abutting the brachial plexus which is good. Hellen Zhu DO [facility]09-09-2025 Telephone encounter Note* Telephone Encounter - Brielle Mcbride LPN - 12/01/2024 2:13 PM EDT Patient is aware that we just ordered the over read and we will contact her with those results onceboth MRI's are compared and report is available. Brielle Mcbride LPN [facility]09-09-2025 Miscellaneous Notes* Telephone Encounter - Brielle Mcbride LPN - 12/01/2024 2:13 PM EDT Patient is aware that we just ordered the over read and we will contact her with those results onceboth MRI's are compared and report is available. Brielle Mcbride LPN * Telephone Encounter - Thelma Vitale - 12/01/2024 1:53 PM EDT Patient calling again for MRI results from [facility] * Telephone Encounter - Hellen Zhu DO - 12/01/2024 11:59 AM EDT Thank you. Order filed. * Telephone Encounter - Brielle Mcbride LPN - 11/26/2024 4:53 PM EDT Patient is aware that we did receive the report, however, the most recent MRI was not compared to the MRI she had here in September. I have requested the images from [facility]. As soon as the images are imported we can order the over read. Patient verbalized understanding. Please leave this note in the box until images are received and over read is ordered. Brielle Mcbride LPN * Telephone Encounter - Thelma Vitale - 11/26/2024 3:40 PM EDT Patient calling for results from MRI at [facility] last Th documented in this encounterMer[facility]09-09-2025 Telephone encounter Note * Telephone Encounter - Thelma Vitale - 12/01/2024 1:53 PM EDT Patient calling again for MRI results from [facility] Work Phone: 1(773) 302-707809-09-2025 Telephone encounter Note* Telephone Encounter - Hellen Zhu DO - 12/01/2024 11:59 AM EDT Thank you. Order filed. [facility]09-04-2025 Telephone encounter Note* Telephone Encounter - Brielle Mcbride LPN - 11/26/2024 4:53 PM EDT Patient is aware that we did receive the report, however, the most recent MRI was not compared to the MRI she had here in September. I have requested the images from [facility]. As soon as the images are imported we can order the over read. Patient verbalized understanding. Please leave this note in the box until images are received and over read is ordered. Brielle Mcbride LPN [facility]09-04-2025 Telephone encounter Note* Telephone Encounter - Thelma Vitale - 11/26/2024 3:40 PM EDT Patient calling for results from MRI at [facility] last Th [facility]08-29-2025 [facility]08-29-2025 History of Present illness Narrative* Kathie Adame LPN - 11/20/2024 3:15 PM EDT Patient presents with: Imm/Inj Pt [...] noted. KATHY Little LPN documented in this encounterMercy Health [facility]08-28-2025 NoteHNO ID: [id number] Author: SCARLET BESS LPN Service: ? Author Type: Licensed Nurse Type: Progress Notes Filed: 11/19/2024 15:47 Note Text: Patient here for injection of Filgrastim. Given SQ in right arm. Patient tolerated well. [facility]08[facility] History of Present illness Narrative* Scarlet Bess LPN - 11/19/2024 3:44 PM EDT Patient here for injection of Filgrastim. Given SQ in right arm. Patient tolerated well. Scarlet Bess LPN documented in this encounterMercy Health [facility]08-28-2025 Telephone encounter Note * Telephone Encounter - Brielle Mcbride LPN - 11/19/2024 2:24 PM EDT I sent a STAT request to our film library after we spoke earlier. They will send the images electronically. Brielle Mcbride LPN [facility]08-28-2025 Miscellaneous Notes* Telephone Encounter - Brielle Mcbride LPN - 11/19/2024 2:24 PM EDT I sent a STAT request to our film library after we spoke earlier. They will send the images electronically. Brielle Mcbride LPN * Telephone Encounter - Thelma Vitale - 11/19/2024 2:01 PM EDT [facility] MRI called back stating they received the report. Now they are asking that the Images be sent electronically. * Telephone Encounter - Scarlet Bess LPN - 11/19/2024 11:37 AM EDT Faxed. Scarlet Bess LPN * Telephone Encounter - Tamar Alonso - 11/19/2024 11:05 AM EDT [facility] called requesting imaging foseptember (bracheoplexis MRI) be faxed over to them at [phone] attn. [facility]. Tamar Alonso documented in this encounterMercy [facility]08-28-2025 Telephone encounter Note * Telephone Encounter - Thelma Vitale - 11/19/2024 2:01 PM EDT [facility] MRI called back stating they received the report. Now they are asking that the Images be sent electronically. [facility] Work Phone: 1(608) 118-347008-28-2025 Telephone encounter Note* Telephone Encounter - Scarlet Bess LPN - 11/19/2024 11:37 AM EDT Faxed. Scarlet Bess LPN [facility]08-28-2025 Telephone encounter Note* Telephone Encounter - Tamar Alonso - 11/19/2024 11:05 AM EDT [facility] called requesting imaging foseptember (bracheoplexis MRI) be faxed over to them at [phone] attn. [facility]. Tamar Alonso [facility]08-27-2025 NoteHNO ID: [id number] Author: SCARLET BESS LPN Service: ? Author Type: Licensed Nurse Type: Progress Notes Filed: 11/18/2024 16:32 Note Text: Patient here for injection of filgrastim. Given SQ in right arm. Patient tolerated well. [facility]08-27-2025 History of Present illness Narrative* Scarlet Bess LPN - 11/18/2024 4:30 PM EDT Patient here for injection of filgrastim. Given SQ in right arm. Patient tolerated well. Scarlet Bess LPN documented in this encounterMercy Health [facility]08-26-2025 NoteK[facility]08-26-2025 History of Present illness Narrative* Era Burleson, EMETERIO - 11/17/2024 4:29 PM EDT Pt given message Per Dr. Zhu .... I think it's time for her to revisit with a breast surgeon for opinion on surgery for the angiosarcoma of the right breast. Either Dr. Christina or Dr. Merino at [facility]. Both have seen her. Whomever she is comfortable with. Pt states that she will contact Dr Merino for an opinion. DO Era Kyle RN documented in this encounterMercy Health [facility]08-26-2025 Telephone encounter Note * Telephone Encounter - Kathie Adame LPN - 11/17/2024 4:17 PM EDT Information given to pt. Kathie Adame LPN [facility]08-26-2025 Miscellaneous Notes* Telephone Encounter - Kathie Adame LPN - 11/17/2024 4:17 PM EDT Information given to pt. Kathie Adame LPN * Telephone Encounter - Hellen hZu DO - 11/17/2024 3:58 PM EDT I think it's time for her to revisit with a breast surgeon for opinion on surgery for the angiosarcoma of the right breast. Either Dr. Christina or Dr. Merino at [facility]. Both have seen her. Whomever she is comfortable with. Hellen Zhu DO documented in this encounterMercy [facility]08-26-2025 Telephone encounter Note * Telephone Encounter - Hellen Zhu DO - 11/17/2024 3:58 PM EDT I think it's time for her to revisit with a breast surgeon for opinion on surgery for the angiosarcoma of the right breast. Either Dr. Christina or Dr. Merion at [facility]. Both have seen her. Whomever she is comfortable with. Hellen Zhu DO [facility]08-26-2025 Telephone encounter Note* Telephone Encounter - Thelma Vitale - 11/17/2024 9:26 AM EDT Schedule completed thru mid Oct [facility] Work Phone: 1(528) 536-121508-26-2025 Miscellaneous Notes* Telephone Encounter - Thelma Vitale - 11/17/2024 9:26 AM EDT Schedule completed thru mid Oct * Telephone Encounter - Roro Lorenzo - 11/16/2024 5:06 PM EDT -Start Trodelvy tomorrow (day 1 day 8, every 21 days)-done -Repeat CBC and CMP tomorrow-done -CBC day 8-done -Keep Neupogen Sat and Saturday this week -Schedule stat MRI - done, schedule at [facility] 11/19/24 -Cancel Keytruda and Taxol - schedule needs updated going forward after d8 Per Nursing schedule office visit with D1 of cycle 2 of the Trodelvy Roro Andujar Pss * Telephone Encounter - Zabrina Palencia - 11/16/2024 4:26 PM EDT -Start Trodelvy tomorrow (day 1 day 8, every 21 days) -Repeat CBC and CMP tomorrow -CBC day 8 -Keep Neupogen Sat and Saturday this week -Schedule stat MRI -Cancel Keytruda and Taxol documented in this encounterMercy Health [facility]08-25-2025 Telephone encounter Note * Telephone Encounter - Roro Lorenzo - 11/16/2024 5:06 PM EDT -Start Trodelvy tomorrow (day 1 day 8, every 21 days)-done -Repeat CBC and CMP tomorrow-done -CBC day 8-done -Keep Neupogen Sat and Saturday this week -Schedule stat MRI - done, schedule at [facility] 11/19/24 -Cancel Keytruda and Taxol - schedule needs updated going forward after d8 Per Nursing schedule office visit with D1 of cycle 2 of the Trodelvy Roro Andujar Pss [facility]08-25-2025 Telephone encounter Note* Telephone Encounter - Zabrina Palencia - 11/16/2024 4:26 PM EDT -Start Trodelvy tomorrow (day 1 day 8, every 21 days) -Repeat CBC and CMP tomorrow -CBC day 8 -Keep Neupogen Sat and Saturday this week -Schedule stat MRI -Cancel Keytruda and Taxol [facility]08-25-2025 [facility]08-25-2025 History of Present illness Narrative* Hellen Zhu DO - 11/16/2024 3:32 PM EDT Oncologic problem(s): 1) 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 Diagnosed with lymphocytic colitis about 3 years ago. Abdominal pain/diarrhea. Treated with probiotic and magnesium supplement. Had MRI brain and PET scan at [facility] on 04/09. MRI reported with LEFT [...] 3 of which were included within the [id number] measuring up to 2.8 cm. No internal [...] was discussed with the patient or authorized commissary representative. The patient or authorized commissary representative has agreed to proceed with the sensitive examination. Brielle Mcbride LPN chaperonechaim. PHYSICAL EXAM: Vitals: Blood pressure 107/63, pulse 85, temperature 36.6 C (97.8 F), weight 55.8 kg (123 lb), lastmenstrual period 12/30/2007, SpO2 99%. Well-appearing and in [...] testing: [facility] 05/10/2023 negative for germline mutation. 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 Plan: -NGS testing on biopsy specimen from [facility]. -Will refer for surgical resection if triple negative disease response well and there is window of opportunity. Portions of this documentation were copied and pasted from my previous office visit note dated 10/20/2024 in order to provide a cohesive continuity of the history. The note has been reviewed and edited and updated as necessary. Hellen Zhu DO documented in this encounterMercy [facility]08-25-2025 NoteHNO ID: [id number] Author: SCARLET BESS LPN Service: ? Author Type: Licensed Nurse Type: Progress Notes Filed: 11/16/2024 11:19 Note Text: Patient here for injection of Filgrastim. Given SQ in right arm. Patient tolerated well. [facility]08-[facility] History of Present illness Narrative* Scarlet Bess LPN - 11/16/2024 10:07 AM EDT Patient here for injection of Filgrastim. Given SQ in right arm. Patient tolerated well. Scarlet Bess LPN documented in this encounterMercy Health [facility]08-23-2025 [facility]08-23-2025 History of Present illness Narrative* Mary Green MD - 11/14/2024 7:52 PM EDT FOLLOW UP VISIT NAME: Carrie Smileyison [facility] NO.: [id number] DATE OF SERVICE: 11/11/2024 : 1960 REFERRING [...] control absent; external controls stain as expected IL status Negative (less than 1%) IL % staining 0 Progesterone Receptor (Average Staining Intensity) Not Applicable Progesterone Receptor Status of Internal Control Internal control absent; external controls stain as expected HER2 IHC Status NEGATIVE (Score 0+) - Membrane staining that is incomplete and is faint / barely perceptible and inless than or equal to 10% of tumor [...] Green MD documented in this encounterMercy Health [facility]08-20-2025 Telephone encounter Note * Telephone Encounter - Roro Lorenzo - 11/11/2024 4:04 PM EDT Patient was already schedule for a neupogen shot Saturday11/16/24 and then lab work and office visit later in the day. I rescheduled the lab work for piror to the neupogen shot [facility]08-20-2025 Miscellaneous Notes* Telephone Encounter - Roro Lorenzo - 11/11/2024 4:04 PM EDT Patient was already schedule for a neupogen shot Saturday11/16/24 and then lab work and office visit later in the day. I rescheduled the lab work for piror to the neupogen shot * Telephone Encounter - Keila Crooks RN - 11/10/2024 2:48 PM EDT WBC 23.96. Hold neupogen tomorrow? 1:02 PM PM Hellen Zhu, DO Yes. Hold this week. Recheck Saturday and plan Neupogen then. Per secure chat. Appts canceled. Please schedule for lab on Saturday. Thank you. documented in this encounterMercy Health [facility]08-19-2025 Telephone encounter Note * Telephone Encounter - Keila Crooks RN - 11/10/2024 2:48 PM EDT WBC 23.96. Hold neupogen tomorrow? 1:02 PM PM Hellen Zhu, DO Yes. Hold this week. Recheck Saturday and plan Neupogen then. Per secure chat. Appts canceled. Please schedule for lab on Saturday. Thank you. [facility]08-19-2025 Telephone encounter Note* Telephone Encounter - Keila Crooks RN - 11/10/2024 2:[address] Zhu saw pt chairside. Pt made aware of bx results. Dr. Zhu will see pt next week to f/u with increasing numbness in L arm. Pt given educational information on Trodelvy. [facility]08-19-2025 Miscellaneous Notes* Telephone Encounter - Keila Crooks RN - 11/10/2024 2:[address] Zhu saw pt chairside. Pt made aware of bx results. Dr. Zhu will see pt next week to f/u with increasing numbness in L arm. Pt given educational information on Trodelvy. * Telephone Encounter - Keila Crooks RN - 11/10/2024 12:42 PM EDT Pt asking about her biopsy results. Currently here for treatment in Rm 2. Pt also states she is having more weakness in her L arm/hand. Wanted to make you aware. documented in this encounterMercy Health [facility]08-19-2025 Telephone encounter Note * Telephone Encounter - Keila Crooks RN - 11/10/2024 12:42 PM EDT Pt asking about her biopsy results. Currently here for treatment in Rm 2. Pt also states she is having more weakness in her L arm/hand. Wanted to make you aware. [facility]08-18-2025 NoteK[facility]08-18-2025 History of Present illness Narrative* Kathie Adame LPN - 11/09/2024 8:46 AM EDT Patient presents with: Imm/Inj Pt [...] Adame LPN documented in this encounterMercy Health [facility]08-15-2025 Telephone encounter Note * Telephone Encounter - Ankit Cano RN - 11/06/2024 11:21 AM EDT Pt notified via telephone. She is aware to let staff know if diarrhea is not any better by Saturday. [facility] Work Phone: 1(930) 409-508108-15-2025 Miscellaneous Notes* Telephone Encounter - Ankit Cano RN - 11/06/2024 11:21 AM EDT Pt notified via telephone. She is aware to let staff know if diarrhea is not any better by Saturday. * Telephone Encounter - Hellen Zhu DO - 11/06/2024 10:33 AM EDT Advise her to stop it altogether. Let us know if diarrhea does not subside by Saturday. We have to bear in mind that the diarrhea can be from immunotherapy. Hellen Zhu DO * Telephone Encounter - Ankit Cano RN - 11/06/2024 10:17 AM EDT Pt has been taking potassium chloride 10meq [...] advise, thank you. Ankit documented in this encounterMercy Health [facility]08-15-2025 Telephone encounter Note * Telephone Encounter - Hellen Zhu DO - 11/06/2024 10:33 AM EDT Advise her to stop it altogether. Let us know if diarrhea does not subside by Saturday. We have to bear in mind that the diarrhea can be from immunotherapy. Hellen Zhu DO [facility]08-15-2025 Telephone encounter Note* Telephone Encounter - Ankit Cano RN - 11/06/2024 10:17 AM EDT Pt has been taking potassium chloride 10meq [...] Please advise, thank you. Ankit [facility]08-14-2025 NoteK[facility]08-14-2025 History of Present illness Narrative* Kathie Adame LPN - 11/05/2024 3:36 PM EDT Patient presents with: Imm/Inj Pt [...] Adame LPN documented in this encounterMercy Health [facility]08-14-2025 NoteK[facility]08-14-2025 History of Present illness Narrative* Mary Green MD - 11/05/2024 5:53 AM EDT FOLLOW UP VISIT NAME: Carrie Hensley [facility] NO.: [id number] DATE OF SERVICE:November 05, 2024 : 1960 [...] resp. rate 14, height 165.1 cm (5' 5), weight 55.3 kg (122 lb), last menstrual [...] a small stab incision was made. The Ampere core biopsy needle was inserted into the [...] me in 1 week. Mary Green MD * Tena Bailey RN - 11/04/2024 3:01 PM EDT UNIVERSAL PROTOCOL / SAFETY CHECKLIST [...] the patient or surrogate. documented in this encounterMercy Health [facility]08-13-2025 NoteKettering [facility]08-13-2025 History of Present illness Narrative* Scarlet Bess LPN - 11/04/2024 3:30 PM EDT Patient here for injection of Filgrastim. Given SQ in right arm. Patient tolerated well. Given late, pt was called from Gen Surg to come to her apt. Pt left our waiting room to go up to Gen Surg and returned to our dept for injection after her apt was completed upstairs. Scarlet Bess LPN documented in this encounterMercy Health [facility]08-13-2025 NoteK[facility]08-13-2025 Instructions* Patient Instructions* Tena Bailey RN - 11/04/2024 2:34 PM EDT The following instructions are important for you related to your office visit today with the [facility]. Instructions After OFFICE BASED lymph [...] you should contact our office immediately @ [phone] and ask to be transferred to the General Surgery department. documented in this encounterMercy Health [facility]08-13-2025 Telephone encounter Note * Telephone Encounter - Scarlet Bess LPN - 11/04/2024 8:03 AM EDT I will notify her when she is here today for her injection. Scarlet Bess LPN [facility]08-13-2025 Miscellaneous Notes* Telephone Encounter - Scarlet Bess LPN - 11/04/2024 8:03 AM EDT I will notify her when she is here today for her injection. Scarlet Bess LPN * Telephone Encounter - Hellen Zhu DO - 11/04/2024 7:54 AM EDT Can let her know I left a VM for Dr. Merino to discuss the plan. Hellen Zhu DO * Telephone Encounter - Scarlet Bess LPN - 11/02/2024 11:24 AM EDT Patient states she called Dr Merino's office ad was told they are scheduling out to mid-November for a biopsy. She is willing to go to [place] for a biopsy if the have something sooner. Scarlet Bess LPN * Telephone Encounter - Scarlet Bess LPN - 10/30/2024 10:50 AM EDT Patient asking if Dr Davis spoke to you about this? Does she need to have biopsy? Had an ultrasound done the other day ordered by Dr Mancera. Patient feeling extremely anxious. Scarlet Bess LPN * Telephone Encounter - Kathie Adame LPN - 10/29/2024 10:58 AM EDT Pt.pt. states has an enlarged lymph node in right axilla, found on ultrasound. Wondering is it cancer? Also wants Dr. Zhu's opinion concerning, She would like to have a lumpectomy on right side with removal of the enlarged lymph node, knows she would have to be off the Taxol in order to do this. Last time she went off the Taxol her left breast went crazy with metastatic cancer. Your thoughts? Option? Kathie Adame LPN documented in this encounterMer[facility]08-13-[facility]25 Telephone encounter Note * Telephone Encounter - Hellen Zhu DO - 11/04/2024 7:54 AM EDT Can let her know I left a VM for Dr. Merino to discuss the plan. Hellen Zhu DO [facility]08-12-2025 [facility]08-12-2025 Procedure note* Era Burleson RN - 11/03/2024 3:36 PM EDT Patient arrives for C2 D15 Taxol. States that after her ultrasound (10/28/24) on right breast her skin is red and warm to touch. Pt states it is right were her tumor is and wanted Dr Zhu to be aware.Denies any pain at the site. Golf ball size round area noted with erythema and warmth noted. Pt states that she would just like them to take it out but understands and trusts Dr Zhu. Pt awaiting date for biopsy of lymph node. Era Burleson RN [facility] Work Phone: 1(485) 794-531708-12-2025 NoteK[facility]08-12-2025 Procedure note* Era Burleson RN - 11/03/2024 3:36 PM EDT BEDSIDE PROCEDURE NOTE Procedures SIGNATURE: Era Burleson RN PATIENT NAME: Carrie Herbert DATE: November 03, 2024 TIME: 3:36 PM [facility]08-12-2025 Procedure note* Era Burleson RN - 11/03/2024 3:36 PM EDT Patient arrives for C2 D15 Taxol. States that after her ultrasound (10/28/24) on right breast her skin is red and warm to touch. Pt states it is right were her tumor is and wanted Dr Zhu to be aware.Denies any pain at the site. Golf ball size round area noted with erythema and warmth noted. Pt states that she would just like them to take it out but understands and trusts Dr Zhu. Pt awaiting date for biopsy of lymph node. Era Burleson RN * Era Burleson RN - 11/03/2024 3:36 PM EDT BEDSIDE PROCEDURE NOTE Procedures SIGNATURE: Era Burleson RN PATIENT NAME: Carrie Herbert DATE: November 03, 2024 TIME: 3:36 PM documented in this encounterMercy [facility]08-11-2025 Telephone encounter Note * Telephone Encounter - Scarlet Bess LPN - 11/02/2024 11:34 AM EDT Patient requesting refill of Zofran, nausea due to oral potassium. Scarlet Bess LPN [facility]08-11-2025 Miscellaneous Notes* Telephone Encounter - Scarlet Bess LPN - 11/02/2024 11:34 AM EDT Patient requesting refill of Zofran, nausea due to oral potassium. Scarlet Bess LPN documented in this encounterMercy [facility]08-11-2025 Telephone encounter Note * Telephone Encounter - Scarlet Bess LPN - 11/02/2024 11:24 AM EDT Patient states she called Dr Merino's office ad was told they are scheduling out to mid-November for a biopsy. She is willing to go to [place] for a biopsy if the have something sooner. Scarlet Bess LPN [facility]08-11-2025 NoteHNO ID: [id number] Author: SCARLET BESS LPN Service: ? Author Type: LICENSED NURSE Type: Progress Notes Filed: 11/02/2024 15:45 Note Text: Patient here for injection of Filgrastim. Given SQ in right arm. Patient tolerated well. Scarlet Bess [facility]08-11-2025 History of Present illness Narrative* Scarlet Bess LPN - 11/02/2024 11:08 AM EDT Patient here for injection of Filgrastim. Given SQ in right arm. Patient tolerated well. Scarlet Bess LPN documented in this encounterMercy [facility]08-08-2025 NoteHNO ID: [id number] Author: SCARLET BESS LPN Service: ? Author Type: LICENSED NURSE Type: Progress Notes Filed: 10/30/2024 11:14 Note Text: Patient here for injection of Zarxio. Given SQ in right arm. Patient tolerated well. Scarlet Bess [facility]08-08-2025 Telephone encounter Note* Telephone Encounter - Scarlet Bess LPN - 10/30/2024 10:50 AM EDT Patient asking if Dr Davis spoke to you about this? Does she need to have biopsy? Had an ultrasound done the other day ordered by Dr Mancera. Patient feeling extremely anxious. Scarlet Bess LPN [facility]08-07-2025 Telephone encounter Note* Telephone Encounter - Kathie Adame LPN - 10/29/2024 10:58 AM EDT Pt.pt. states has an enlarged lymph node in right axilla, found on ultrasound. Wondering is it cancer? Also wants Dr. Zhu's opinion concerning, She would like to have a lumpectomy on right side with removal of the enlarged lymph node, knows she would have to be off the Taxol in order to do this. Last time she went off the Taxol her left breast went crazy with metastatic cancer. Your thoughts? Option? Kathie Adame LPN [facility]08-07-2025 [facility]08-06-2025 Note [facility]08-06-2025 History of Present illness Narrative* Melony Davis MD - 10/28/2024 1:41 PM EDT Radiation Oncology - Follow Up [...] finished on 12/25/23. It's ER negative (<1%), IL negative(<1%) and Her2 1+. 2. h/o right breast [...] [facility] [place] and adjuvant chemotherapy. She reports that her [...] cell cap^Take 1 capsule by mouth once daily.^Disp:^Rfl: cimetidine (TAGAMET ORAL)^Take by mouth as needed.^Disp: [...] breast lumpectomy and sentinel node biopsy on 10/02/23.Complete pathologic response with ypT0 and ypN0. s/p radiation treatment finished on 12/25/23. It's ER negative (<1%), IL negative (<1%) and Her2 1+. 2. h/o [...] of her ultrasound today with the radiologist, . He told me that when compared to her previous ultrasound in July, the size of the mass is about the same. Regarding her lymph node, he told me that it's not clear if the [facility] scanned that region. I will talk to Dr. Zhu about my recommendation. Signed by: Melony Davis MD cc: Ken Zarco () Manish Ruffin [facility] [address] [phone] * Stacie Roger RN - 10/28/2024 1:35 PM EDT Radiation Therapy - Nursing Note (Follow-up) PATIENT NAME: Carrie Herbert PATIENT October 28, 2024 [facility] FACILITY/LOCATION: [place] Reason for visit: Follow up to discuss treatment options. Subjective Data we are going to talk about several places, L shoulder and chest area Additional Data Do you want to see a Grievance And Appeals Specialist? No Nursing Assessment Fatigue: none Appetite: good [...] Roger RN documented in this encounterMercy [facility]08-06-2025 NoteK[facility]08-06-2025 NoteK[facility]08-04-2025 Telephone encounter Note* Telephone Encounter - Tamar Alonso - 10/26/2024 2:35 PM EDT Spoke w pt and she is scheduled for 10/[address] Davis. Tamar Alonso [facility]08-04-2025 Miscellaneous Notes* Telephone Encounter - Tamar Alonso - 10/26/2024 2:35 PM EDT Spoke w pt and she is scheduled for 10/[address] Davis. 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 However, justlike her skin metastases, she had full dose [...] will see and assess her. Melony Lubin * Telephone Encounter - Brielle Mcbride LPN - 10/26/2024 1:58 PM EDT PSS- patient would like to see Dr. Ryan ABREU. Brielle Mcbride LPN * Telephone Encounter - Hellen Zhu DO - 10/26/2024 1:[address] Mancera called me about it about half hour ago. I don't think the CT chest went high enough to see the mass. He recommended she see DR. Davis for opinion on radiation. We can continue her current treatment. Hellen Zhu DO * Telephone Encounter - Kathie Adame LPN - 10/26/2024 12:41 PM EDT Shellie would like for you to look at her MRI done 10/22/24 and get your take on it? 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 However, justlike her skin metastases, she had full dose [...] and assess her. Melony Lubin [facility] Work Phone: 1(581) 556-570308-04-2025 Telephone encounter Note* Telephone Encounter - Brielle Mcbride LPN - 10/26/2024 1:58 PM EDT PSS- patient would like to see Dr. Ryan ABREU. Brielle Mcbride LPN [facility]08-04-2025 Telephone encounter Note* Telephone Encounter - Hellen Zhu DO - 10/26/2024 1:[address] Mancera called me about it about half hour ago. I don't think the CT chest went high enough to see the mass. He recommended she see DR. Davis for opinion on radiation. We can continue her current treatment. Hellen Zhu DO [facility]08-04-2025 Telephone encounter Note* Telephone Encounter - Kathie Adame LPN - 10/26/2024 12:41 PM EDT Shellie would like for you to look at her MRI done 10/22/24 and get your take on it? Kathie Adame LPN [facility]08-04-2025 NoteK[facility]08-01-2025 NoteHNO ID: [id number] Author: SCARLET BESS LPN Service: ? Author Type: LICENSED NURSE Type: Progress Notes Filed: 10/23/2024 09:36 Note Text: Patient here for injection of filgrastim. Given SQ in right arm. Patient tolerated well. Scarlet Bess [facility]08-01-2025 History of Present illness Narrative* Scarlet Bess LPN - 10/23/2024 9:31 AM EDT Patient here for injection of filgrastim. Given SQ in right arm. Patient tolerated well. Scarlet Bess LPN documented in this encounterMercy Health [facility]07-31-2025 NoteHNO ID: [id number] Author: SCARLET BESS LPN Service: ? Author Type: LICENSED NURSE Type: Progress Notes Filed: 10/22/2024 14:29 Note Text: Patient here for injection of filgrastim. Given SQ in left arm. Patient tolerated well. Scarlet Bess [facility]07-31-2025 History of Present illness Narrative* Scarlet Bess LPN - 10/22/2024 10:12 AM EDT Patient here for injection of filgrastim. Given SQ in left arm. Patient tolerated well. Scarlet Bess LPN documented in this encounterMercy Health [facility]07-31-2025 History of Present illness Narrative* Kenn Hewitt RT(R) - 10/22/2024 9:00 AM EDT Radiology Service Progress Note DATE OF [...] PATIENT PRESENTS WITH AN IMPLANTABLE OR ATTACHED REAL ESTATE EXECUTIVE ASSISTANT: No ALLERGIES: Reviewed and unchanged CONTRAST ALLERGY: NO. EXAM: MRI - CONTRAST TYPE: GROUP II PERIPHERAL IV DATA: Ambulatory: A peripheral IV was started in the Right forearm with a Angio cath:24 gauge. RADIOLOGY DEPARTMENT: MR; Exam(s) Completed: Upper MSK: Brachial Plexus, left. Aromatherapy Administered: No SIGNATURE: RT Kate(R) PATIENT NAME: Carrie Herbert DATE: October 22, 2024 TIME: 9:10 AM documented in this encounterMercy Health [facility]07-31-2025 NoteK[facility]07-30-2025 Telephone encounter Note* Telephone Encounter - Brielle Mcbride LPN - 10/21/2024 12:39 PM EDT Patient notified and verbalized understanding. Brielle Mcbride LPN [facility]07-30-2025 Miscellaneous Notes* Telephone Encounter - Brielle Mcbride LPN - 10/21/2024 12:39 PM EDT Patient notified and verbalized understanding. Brielle Mcbride LPN * Telephone Encounter - Hellen Zhu DO - 10/21/2024 12:19 PM EDT The next PET scan I would obtain in about 3 months but sooner if there is evidence of progression of the cancer on exam. Caris testing did not reveal any actionable mutations. Therefore we will continue paclitaxel and Keytruda. The numbness and weakness in left arm may be related to the cancer and that is why we are doing the upcoming MRI to determine if any the nerves are being pushed on by the cancer. Hellen Zhu DO * Telephone Encounter - Kathie Adame LPN - 10/21/2024 11:56 AM EDT Pt.has several questions 1) wonders when she will get her next PET scan 2) had Caris testing and requesting results 3) Is numbness and weakness in left arm from her cancer related to her cancer ( Started in May) Kathie Adame LPN documented in this encounterMercy [facility]07-30-2025 Telephone encounter Note * Telephone Encounter - Hellen Zhu DO - 10/21/2024 12:19 PM EDT The next PET scan I would obtain in about 3 months but sooner if there is evidence of progression of the cancer on exam. Caris testing did not reveal any actionable mutations. Therefore we will continue paclitaxel and Keytruda. The numbness and weakness in left arm may be related to the cancer and that is why we are doing the upcoming MRI to determine if any the nerves are being pushed on by the cancer. Hellen Zhu DO [facility]07-30-2025 Telephone encounter Note* Telephone Encounter - Kathie Adame LPN - 10/21/2024 11:56 AM EDT Pt.has several questions 1) wonders when she will get her next PET scan 2) had Caris testing and requesting results 3) Is numbness and weakness in left arm from her cancer related to her cancer ( Started in May) Kathie Adame LPN [facility]07-30-2025 NoteK[facility]07-30-2025 History of Present illness Narrative* Kathie Adame LPN - 10/21/2024 10:24 AM EDT Patient presents with: Imm/Inj Pt [...] Adame LPN documented in this encounterMercy Health [facility]07-29-2025 NoteHNO ID: [id number] Author: ANKIT CANO RN Service: ? Author Type: Registered Nurse Type: Progress Notes Filed: 10/20/2024 12:35 Note Text: Prelim ANC 0.57, ok to treat per Dr. Zhu. Pt to receive neupogen daily. [facility]07-29-2025 History of Present illness Narrative* Ankit Cano RN - 10/20/2024 9:19 AM EDT Prelim ANC 0.57, ok to treat per Dr. Zhu. Pt to receive neupogen daily. 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 The carcinoma cells express cytokeratin AE1/AE3, GATA3, TRPS 1, and SOX10, and are negative for PAX8, TTF-1, and CDX2, supporting mammary origin. Breast biomarker studies have been requested and results will be reported separately in a linked report. 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 Diagnosed with lymphocytic colitis about 3 years ago. Abdominal pain/diarrhea. Treated with probiotic and magnesium supplement. Had MRI brain and PET scan at [facility] on 04/09. MRI reported with LEFT [...] 3 of which were included within the ppaqg-se-ldbm measuring up to 2.8 cm. No internal [...] was discussed with the patient or authorized commissary representative. The patient or authorized commissary representative has agreed to proceed with the [...] testing: [facility] 05/10/2023 negative for germline mutation. 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 - We discussed that may not be time to take a break from treatment for surgery. Plan: -Pathology has been reviewed at [facility]. - Ultrasound tomorrow. - NGS testing on biopsy specimen from [facility]. - See above. Portions of this documentation were copied and pasted from my previous office visit note dated 09/11/2024 in order to provide a cohesive continuity of the history. The note has been reviewed and edited and updated as necessary. Hellen Zhu DO documented in this encounterMercy Health [facility]07-22-2025 Procedure note [facility] Pulmonary Services/Neurology [address] [place] [address] MR#: [id number] Acct: [id number] Name: Everette HERBERT Rep #:[id number] : 1960 64 From: Bishnu Harrison MD Referring Dr: Santana Arellano NP FURNACE HAND-C Status: REG CLI Location: PSN Date: 10/13/24 Sex: F [...] of the left upper extremity demonstrated increased insertionalactivity and spontaneous activity (positive sharp waves and fibrillation potentials) in the left deltoid, triceps, extensor carpi radialis, extensor carpi ulnaris, extensor indicis proprius muscles. There was ahigher proportion of motor unit action potentials with reduced recruitment, increased amplitude, increased duration, and polyphasia in the left triceps, extensor carpi radialis, extensor carpi ulnaris, extensor indicis proprius muscles Impression: This is an abnormal study. There is electrodiagnostic evidence of a left brachial plexopathy with predominant involvement of the left posterior cord. Multi Select Codes Neurology Neurology Interp Codes: 52239-66 Musc test done w/n test comp (interp) (1) and 10908-83 Nrv cndj test 7-8 studies (interp) 10/13/24 1521 MD> Date _ Bishnu Harrison MD CC: Santana CORDOBA FURNACE HANDKrzysztof McMorrow; Dr. Bsihnu Harrison MD; Dr. Hellen Lafleur MD ~ Date Dictated: 10/13/241515 Date Transcribed: 10/13/241515 Architectural Inspector: Signed [facility]07-21-2025 NoteHNO ID: [id number] Author: SCARLET BESS LPN Service: ? Author Type: LICENSED NURSE Type: Progress Notes Filed: 10/12/2024 15:54 Note Text: Patient here for injection of Filgrastim. Given SQ in right arm. Patient tolerated well. Scarlet Bess [facility]07-21-2025 History of Present illness Narrative* Scarlet Bess LPN - 10/12/2024 3:37 PM EDT Patient here for injection of Filgrastim. Given SQ in right arm. Patient tolerated well. Scarlet Bess LPN documented in this encounterMercy Health [facility]07-21-2025 Telephone encounter Note * Telephone Encounter - Thelma Vitale - 10/12/2024 10:38 AM EDT Done- note added to appt for today for pss to inform pt of 10/22 arrival time [facility] Work Phone: 1(616) 720-268607-21-2025 Miscellaneous Notes* Telephone Encounter - Thelma Vitale - 10/12/2024 10:38 AM EDT Done- note added to appt for today for pss to inform pt of 10/22 arrival time * Telephone Encounter - Thelma Vitale - 10/12/2024 9:29 AM EDT Patient is scheduled thru 11/04 for daily neupogen excluding the following dates: 10/22- pt has appointments in radio during open times for injection 11/05 and 11/06 are full. * Telephone Encounter - Scarlet Bess LPN - 10/09/2024 3:03 PM EDT Discussed possibility of doing injections at home. Went through some instruction and she was agreeable to do at home. However once we got to the actual injection part of the instruction and she saw the needle, pt said no, she would not be able to inject herself. Pt states she will continue to come daily as directed. Scarlet Bess LPN * Telephone Encounter - Scarlet Bess LPN - 10/09/2024 12:40 PM EDT Will discuss with patient when she is here for her injection today. Scarlet Bess LPN * Telephone Encounter - Hellen Zhu DO - 10/09/2024 12:21 PM EDT Since we're not sure or how often she may need Neupogen, see if she would be willing to self injectat home. If so, we will see if can get prescription for her via the specialty pharmacy. Hellen Zhu DO documented in this encounterMercy [facility]07-21-2025 Telephone encounter Note * Telephone Encounter - Thelma Vitale - 10/12/2024 9:29 AM EDT Patient is scheduled thru 11/04 for daily neupogen excluding the following dates: 10/22- pt has appointments in radio during open times for injection 11/05 and 11/06 are full. [facility]07-18-2025 NoteHNO ID: [id number] Author: SCARLET BESS LPN Service: ? Author Type: LICENSED NURSE Type: Progress Notes Filed: 10/09/2024 16:46 Note Text: Patient here for injection of Zarxio. Given sq in rlq. Patient tolerated well. Scarlet Bess [facility]07-18-2025 History of Present illness Narrative* Scarlet Bess LPN - 10/09/2024 4:44 PM EDT Patient here for injection of Zarxio. Given sq in rlq. Patient tolerated well. Scarlet Bess LPN documented in this encounterMercy [facility]07-18-2025 Telephone encounter Note * Telephone Encounter - Scarlet Bess LPN - 10/09/2024 3:03 PM EDT Discussed possibility of doing injections at home. Went through some instruction and she was agreeable to do at home. However once we got to the actual injection part of the instruction and she saw the needle, pt said no, she would not be able to inject herself. Pt states she will continue to come daily as directed. Scarlet Bess LPN [facility]07-18-2025 Telephone encounter Note* Telephone Encounter - Scarlet Bess LPN - 10/09/2024 12:40 PM EDT Will discuss with patient when she is here for her injection today. Scarlet Bess LPN [facility]07-18-2025 Telephone encounter Note* Telephone Encounter - Hellen Zhu DO - 10/09/2024 12:21 PM EDT Since we're not sure or how often she may need Neupogen, see if she would be willing to self injectat home. If so, we will see if can get prescription for her via the specialty pharmacy. Hellen Zhu DO [facility]07-17-2025 NoteHNO ID: [id number] Author: SCARLET BESS LPN Service: ? Author Type: LICENSED NURSE Type: Progress Notes Filed: 10/08/2024 15:57 Note Text: Patient here for injection of filgrastim. Given SQ in right arm. Patient tolerated well. Scarlet Bess [facility]07-17-2025 History of Present illness Narrative* Scarlet Bess LPN - 10/08/2024 3:29 PM EDT Patient here for injection of filgrastim. Given SQ in right arm. Patient tolerated well. Scarlet Bess LPN documented in this encounterMercy Health [facility]07-15-2025 Telephone encounter Note * Telephone Encounter - Yoni Mancera MD - 10/06/2024 4:16 PM EDT Carrie Shellie Herbert was phoned back and the tumor board discussion summarized. She will schedule US R breast and MRI L brachial plexus She will continue paclitaxel/pembrolizumab with paclitaxel weekly We will need to tailor subsequent treatment based on her response. I will work with Dr. Zhu. Zurdo Mancera MD [facility]07-15-2025 Miscellaneous Notes* Telephone Encounter - Yoni Mancera MD - 10/06/2024 4:16 PM EDT Carrie Herbert was phoned back and the tumor board discussion summarized. She will schedule US R breast and MRI L brachial plexus She will continue paclitaxel/pembrolizumab with paclitaxel weekly We will need to tailor subsequent treatment based on her response. I will work with Dr. Zhu. Zurdo Mancera MD documented in this encounterMercy [facility]07-15-2025 Telephone encounter Note * Telephone Encounter - Zabrina Palencia - 10/06/2024 11:23 AM EDT Spoke with patient and scheduled Zabrina Palencia [facility]07-15-2025 Miscellaneous Notes* Telephone Encounter - Zabrina Palencia - 10/06/2024 11:23 AM EDT Spoke with patient and scheduled Zabrina Palencia * Telephone Encounter - Brielle Mcbride LPN - 10/05/2024 4:38 PM EDT Orders pended- please file. Brielle Mcbride LPN * Telephone Encounter - Christal Laurent - 10/01/2024 11:23 AM EDT Patient called in regarding this * Telephone Encounter - Zabrina Palencia - 09/29/2024 11:42 AM EDT Patient stopped after treatment to schedule MRI and US. Nothing under active request. Please advise Zabrina Palencia documented in this encounterMercy [facility]07-15-2025 Telephone encounter Note * Telephone Encounter - Zabrina Palencia - 10/06/2024 11:13 AM EDT Spoke with patient and scheduled Zabrina Palencia [facility]07-15-2025 Miscellaneous Notes* Telephone Encounter - Zabrina Palencia - 10/06/2024 11:13 AM EDT Spoke with patient and scheduled Zabrina Talha * Telephone Encounter - Brielle Mcbride LPN - 10/05/2024 4:40 PM EDT PSS- per Dr. Mancera's recommendation, patient will be going to weekly Taxol (instead of 3 on 1 off). She will need Taxol added on to 10/13/2024. Leave Keytruda as scheduled. Patient will stop at desk tomorrow to get this scheduled because she has another appointment that day. Brielle Mcbride LPN documented in this encounterMer[facility]07-15-2025 NoteK[facility]07-15-2025 History of Present illness Narrative* Dona Mckeon RN - 10/06/2024 8:35 AM EDT Pt here for taxol ANC not meeting parameters at 0.[address] zhu Pt how would you like to proceed 8 mins 8 mins Mk Noland MD lets treat DA close enough documented in this encounterMercy Health [facility]07-15-2025 NoteK[facility]07-14-2025 Telephone encounter Note* Telephone Encounter - Brielle Mcbride LPN - 10/05/2024 4:40 PM EDT PSS- per Dr. Mancera's recommendation, patient will be going to weekly Taxol (instead of 3 on 1 off). She will need Taxol added on to 10/13/2024. Leave Keytruda as scheduled. Patient will stop at desk tomorrow to get this scheduled because she has another appointment that day. Brielle Mcbride LPN [facility]07-14-2025 Telephone encounter Note* Telephone Encounter - Brielle Mcbride LPN - 10/05/2024 4:38 PM EDT Orders pended- please file. Brielle Mcbride LPN [facility]07-10-2025 Telephone encounter Note* Telephone Encounter - Christal Laurent - 10/01/2024 11:23 AM EDT Patient called in regarding this [facility]07-08-2025 Telephone encounter Note* Telephone Encounter - Zabrina Palencia - 09/29/2024 11:42 AM EDT Patient stopped after treatment to schedule MRI and US. Nothing under active request. 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 - Consider switching to weekly Taxol treatments without a break to maximize response. Be aware thatthis may increase the risk of numbness and [...] [facility] [place]. Please ensure the imaging center has access to your prior ultrasound from [facility] for comparison. We discussed next steps: - [...] can develop resistance. If this occurs, we willexplore other treatment options. - Local treatment (surgery [...] and we will follow up with you afterreviewing the imaging and Tumor Board recommendations. If you have any questions or concerns, please reach out through [employer] or contact our office. documented in this encounterMercy Health [facility]rbana [facility]07-07-2025 History of Present illness Narrative* Yoni Mancera MD - 09/28/2024 9:00 AM EDT Images from the original note were not included. [facility] CANCER INTITUTE CONSULT NOTE - Freeman Mancera MD SOLID TUMOR ONCOLOGY PATIENT NAME: Carrie Herbert DATE OF SERVICE: September 27, 2024 My findings and recommendations will be communicated to the referring physician and other members of the patient's health care team by means of the shared electronic medical record and fax. Recording using [employer] software for draft documentation of the visit was discussed with the patient/authorized commissary representative; all questions welcomed and answered. Patient/authorized commissary representative agreed to proceed CHIEF COMPLAINT: Carrie [...] The tumor was estrogen receptor negative, and shereceived four cycles of doxorubicin and cyclophosphamide, followed [...] the left breast showed invasive ductal carcinoma withangiolymphatic invasion, which was estrogen receptor negative, progesterone receptor negative, and HER2 negative (0 by IHC). The right breast biopsy showed only inflamed fibroadipose tissue. She received chemotherapy with paclitaxel, carboplatin, pembrolizumab, doxorubicin, and cyclophosphamide. Cycles 2-4 of doxorubicin and cyclophosphamide were held. On 10/02/2023, she underwent a leftpartial mastectomy and sentinel node biopsy, which showed [...] pembrolizumab. She reports numbness, tingling, and poor casing mixer strength in the left arm since late May to early June, but no numbness or tingling in other extremities. She denies using hand andfoot cooling during chemotherapy. She feels great overall, with no significant side effects from chemotherapy, and reports increased appetite. She denies weight loss, head, eye, ear, nose, and throat issues, swallowi, ng difficulties, headaches, cough, shortness of breath, heart problems, abdominal pain, nausea, vomiting, diarrhea,urinary issues, bone aches, or seizures. 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 She smokedcigarettes for two years in her 20s but [...] left hand weakness, (-) distal extremity numbness/tingling [id number]. Menarche 9. LMP 40's PHYSICAL EXAMINATION: BP 115/57 Pulse 69 Temp (Src) 97.8 (Temporal) Resp 18 Ht 5' 4.724 (1.64m) Wt 120 lb 9.5 oz (54.7kg) [...] sensation in left arm, very mildly decreased casing mixer strength in left hand DIAGNOSTIC STUDIES: (03/01/2023) [...] with SUV max of 2.6. Marked skin thickeningand increased uptake throughout most of the left breast. No significant abnormalities in the axilla, lung parenchyma, mediastinum, or pleura. Abdomen, pelvis, and lower extremities negative. (08/26/2024) Right Breast Biopsy: Angiosarcoma identified, c-MYC weakly positive, Ki-67 at 70% (10/02/2023) Left Partial Mastectomy and [place] Node Biopsy: No residual malignancy (pathologic complete [...] multiple dermal lesions confirmed as triple-negative breast cancer.Currently undergoing treatment with paclitaxel and pembrolizumab, showing [...] tingling in the left arm with poor casing mixer strength. Differential includes neuropathy secondary to chemotherapy or compression of the brachial plexus. - Ordered MRI of the left brachial plexus to evaluate for potential compression or lymphadenopathy. - Scheduled for nerve conduction study on the in [place]. 4. 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 Freeman Mancera MD cc: Ken Zarco MD Debibe Merino MD Paul Masci, DO * Oneal Rothman LPN - 09/28/2024 8:40 AM EDT Additional intake questions: Has the patient had [...] in place? Yes, no copy found in [employer]. documented in this encounterMercy Health [facility]07-07-2025 NoteK[facility]07-07-2025 NoteK[facility]07-03-2025 Telephone encounter Note* Telephone Encounter - Jael Gunter RN - 09/24/2024 2:37 PM EDT Continue with treatment. Jael Gunter RN [facility]07-03-2025 Miscellaneous Notes* Telephone Encounter - Jael Gunter RN - 09/24/2024 2:37 PM EDT Continue with treatment. Jael Gunter RN * Telephone Encounter - Thelma Vitale - 09/24/2024 10:52 AM EDT Please advise if patient is to continue with treatment. Appointment notes show 4 cycles. documented in this encounterMercy Health [facility]07-03-2025 Telephone encounter Note * Telephone Encounter - Thelma Vitale - 09/24/2024 10:52 AM EDT Please advise if patient is to continue with treatment. Appointment notes show 4 cycles. [facility] Work Phone: 1(323) 914-159307-03-2025 History of Present illness Narrative* Keila Christina DO - 09/24/2024 10:30 AM EDT NEW BREAST CANCER - INITIAL SURGICAL VISIT [...] presents for an evaluation of a diagnosis ofa new RIGHT breast angiosarcoma. RIGHT breast cancer [...] (Not Specified) Comment: GRANDFATHER OBSTETRIC RELATED HISTORY: Network Operations Analyst History LMP: 12/30/2007, Postmenopausal Age at Menarche: Age at First : Age at Menopause: Network Operations Analyst History Comments: Menarche: 9; Age at 1st : n/a; Post menopausal mid 39 drug induced fromchemo Sexual Activity: Yes; Male; 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 Contraception: [...] cell cap^Take 1 capsule by mouth once daily.^Disp:^Rfl: cimetidine (TAGAMET ORAL)^Take by mouth as needed.^Disp: [...] dispersed numerous skin masses (mets) this extents tolateral chest wall and does start to cross [...] malignant disease is not excludable. Correlate clinically. Tyrer Cuzick risk calculations do not apply for this patient. BIRADS: BI-RADS: 0: Incomplete: Need Additional Imaging Evaluation EXAMINATION: ULTRASOUND OF THE RIGHT BREAST 08/19/2024 8:58 am TECHNIQUE: Color flow and laughlin scale targeted ultrasound of the right breast were performed. Permanently stored images were reviewed. COMPARISON: 08/11/2024 mammogram and 08/04/2024 PET-CT scan from [facility]. HISTORY: ORDERING SYSTEM PROVIDED HISTORY: Reason for [...] External Control Present and Stained as Expected IL status Negative (less than 1%) IL % staining <1 Progesterone Receptor (Average Staining [...] presents for an evaluation of a diagnosis ofa new RIGHT breast angiosarcoma. RIGHT breast cancer [...] changes, bx showed breast/skin local recurrence, TNBC, ER-IL-HER2- Staging scans no evidence fo metastatic disease [...] has been shown to lead to rapid progressionin the few short weeks. Therefore, I would [...] either side), as the LEFT side will progressduring RIGHT side surgical treatment. Continue with systemic therapy Consider RIGHT side radiation of growth continues during systemic therapy Future Appointments Date Time Provider Department Center 11/02/2024 10:45 AM Wstr, Injection [facility] [place] 11/03/2024 1:00 PM LAB [facility] MOB [facility] [place] 11/03/2024 1:30 PM TREATMENT RM 3 LAY[facility] [place] 11/04/2024 11:15 AM Wstr, Injection [facility] [place] 11/05/2024 9:30 AM Wstr, Lab/Port [facility] [place] 11/06/2024 9:30 AM Wstr, Lab/Port [facility] [place] 11/09/2024 8:45 AM Wstr, Injection [facility] [place] 11/10/2024 12:30 PM LAB [facility] MOB [facility] [place] 11/10/2024 1:00 PM TREATMENT RM 12 [facility] [place] 11/11/2024 2:00 PM Wstr, Injection [facility] [place] 11/12/2024 10:15 AM Wstr, Injection [facility] [place] 11/13/2024 2:45 PM Wstr, Injection [facility] [place] 11/16/2024 9:45 AM Wstr, Injection [facility] [place] 11/16/2024 3:30 PM LAB [facility] MOB LAB[facility]B [place] 11/16/2024 3:50 PM Hellen Zhu DO [facility] [place] 11/17/2024 1:30 PM TREATMENT RM 3 [facility] [place] 11/18/2024 10:45 AM Wstr, Injection [facility] [place] 11/19/2024 8:45 AM Wstr, Injection [facility] [place] 11/20/2024 9:15 AM Wstr, Injection [facility] [place] 11/25/2024 1:00 PM LAB [facility] MOB LABMOB [place] 11/25/2024 1:30 PM TREATMENT RM 4 [facility] [place] 12/01/2024 1:00 PM LAB [facility] W[facility] MOB LAB[facility]B [place] 12/01/2024 1:30 PM TREATMENT RM 8 [facility] [place] 12/09/2024 1:00 PM LAB [facility] MOB LAB[facility]B [place] 12/09/2024 1:30 PM TREATMENT RM 8 [facility] [place] 12/15/2024 1:00 PM LAB [facility] MOB LABMOB [place] 12/15/2024 1:30 PM Demarcus Rodriguez APRN.SAMPLE BODY BUILDER [facility] [place] 12/17/2024 1:30 PM TREATMENT RM 3 [facility] [place] 12/23/2024 1:00 PM LAB [facility] MOB LABMOB [place] 12/23/2024 1:30 PM TREATMENT RM 4 [facility] [place] 12/29/2024 1:00 PM LAB [facility] MOB LAB[facility]B [place] 12/29/2024 1:30 PM TREATMENT RM 3 [facility] [place] 01/05/2025 1:00 PM LAB [facility] M[facility] [place] 01/05/2025 1:30 PM TREATMENT RM 8 [facility] [place] All questions were answered and the patient had no further concerns at this time. Carrie Herbert was given our contact information if she has any further questions or concerns. Keila Christina DO, FACS Breast Surgeon [facility] cc: Ken Zarco MD Self MDM documented in this encounterMercy Health [facility]07-03-2025 NoteK[facility]07-01-2025 History of Present illness Narrative* Precious Edwards, RT(R) - 09/22/2024 6:40 PM EDT Radiology Service Progress Note DATE [...] Assigned female at . status: : No status:N/A PATIENT RELEVANT IMPLANT DATA REVIEWED: Not Applicable PATIENT PRESENTS WITH AN IMPLANTABLE OR ATTACHED REAL ESTATE EXECUTIVE ASSISTANT: No ALLERGIES: Reviewed and unchanged CONTRAST ALLERGY: [...] 2024 TIME: 7:42 PM documented in this encounterMercy Health [facility]07-01-2025 NoteHNO ID: [id number] Author: PRECIOUS EDWARDS RT(R) Service: Radiology Author Type: Documentation Specialist Type: Progress Notes Filed: 09/22/2024 19:43 Note [...] PATIENT PRESENTS WITH AN IMPLANTABLE OR ATTACHED REAL ESTATE EXECUTIVE ASSISTANT: No ALLERGIES: Reviewed and unchanged CONTRAST ALLERGY: [...] RADIOLOGY DEPARTMENT: CT; Exam(s) Completed: Chest SIGNATURE: RT Michi(R) PATIENT NAME: Carrie Herbert DATE: September 22, 2024 TIME: 7:42 PMIndiana University Health [facility] HospitalGgmecwlz98-05-1897 Telephone encounter Note* Telephone Encounter - Tamar Alonso - 09/22/2024 3:35 PM EDT Spoke w pt and she is scheduled for today 640pm at [place] for CT. Tamar Alonso [facility]07-01-2025 Miscellaneous Notes* Telephone Encounter - Tamar Alonso - 09/22/2024 3:35 PM EDT Spoke w pt and she is scheduled for today 640pm at [place] for CT. Tamar Alonso * Telephone Encounter - Hellen Zhu DO - 09/22/2024 1:18 PM EDT I recommend STAT CT chest to further evaluate this symptom. Hellen Zhu DO * Telephone Encounter - Blanka Del Rio RN - 09/22/2024 11:29 AM EDT Shellie wanted you to be aware that she saw he PCP about her L arm numbness and pain and they did an X ray and ruled out a pinched nerve and she was given 5 days of prednisone to see if it would helpand she follows up with her PCP in a week documented in this encounterMercy Health [facility]07-01-2025 Telephone encounter Note * Telephone Encounter - Hellen Zhu DO - 09/22/2024 1:18 PM EDT I recommend STAT CT chest to further evaluate this symptom. Hellen Zhu DO [facility]07-01-2025 Telephone encounter Note* Telephone Encounter - Blanka Del Rio RN - 09/22/2024 11:29 AM EDT Shellie wanted you to be aware that she saw he PCP about her L arm numbness and pain and they did an X ray and ruled out a pinched nerve and she was given 5 days of prednisone to see if it would helpand she follows up with her PCP in a week [facility]07-01-2025 Telephone encounter Note* Telephone Encounter - Hellen Zhu DO - 09/22/2024 10:15 AM EDT Looks good. Thank you. 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 Hellen Zhu DO [facility]07-01-2025 Miscellaneous Notes* Telephone Encounter - Hellen Zhu DO - 09/22/2024 10:15 AM EDT Looks good. Thank you. 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 Hellen Zhu DO * Telephone Encounter - Kathie Adame LPN - 09/22/2024 9:29 AM EDT Caris order pended, please double check info correct before signing. Kathie Adame LPN * Telephone Encounter - Hellen Zhu DO - 09/21/2024 5:16 PM EDT I would like to see if we can order Caris or other NGS testing from the breast tumor biopsy of her right breast done at [facility]. The report is scanned in documents under pathology I believe on 08/26. Hellen Zhu DO documented in this encounterMercy Health [facility]07-01-2025 Telephone encounter Note * Telephone Encounter - Kathie Adame LPN - 09/22/2024 9:29 AM EDT Caris order pended, please double check info correct before signing. Kathie Adame LPN [facility]07-01-2025 NoteHNO ID: [id number] Author: BLANKA DEL RIO RN Service: ? Author Type: Registered Nurse Type: Progress Notes Filed: 09/22/2024 09:48 Note Text: Assessment unchanged from D Masci office visit on 09/21/24[facility]07-01-2025 History of Present illness Narrative* Blanka Del Rio RN - 09/22/2024 8:07 AM EDT Assessment unchanged from D Masci office visit on 09/21/24 documented in this encounterMercy Health [facility]06-30-2025 Telephone encounter Note * Telephone Encounter - Hellen Zhu DO - 09/21/2024 5:16 PM EDT I would like to see if we can order Caris or other NGS testing from the breast tumor biopsy of her right breast done at [facility]. The report is scanned in documents under pathology I believe on 08/26. 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 Diagnosed with lymphocytic colitis about 3 years ago. Abdominal pain/diarrhea. Treated with probiotic and magnesium supplement. Had MRI brain and PET scan at [facility] on 04/09. MRI reported with LEFT [...] 3 of which were included within the inxbx-re-ybng measuring up to 2.8 cm. No internal [...] was discussed with the patient or authorized commissary representative. The patient or authorized commissary representative has agreed to proceed with the [...] testing: [facility] 05/10/2023 negative for germline mutation. 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 - Discussed possible window of opportunity for surgery depending on response of breast cancer. Plan: - NGS testing on biopsy specimen from [place]. - Has surgical opinion scheduled with Dr. Christina on 09/22. Portions of this documentation were copied and pasted from my previous office visit note dated 08/24/2024 in order to provide a cohesive continuity of the history. The note has been reviewed and editedand updated as necessary. I spent a total of 30 minutes on the date of the service which included preparing to see the patient, [id number] patient care, completing clinical documentation, obtaining and/or reviewing separately obtained history, performing a medically appropriate examination, counseling and educating the pat ient/family/caregiver, communicating with other HCPs (not separately reported), and communicating results to the patient/family/caregiver. Hellen Zhu DO documented in this encounterMercy Health [facility]06-27-2025 Telephone encounter Note * Telephone Encounter - Jael Gunter RN - 09/18/2024 4:04 PM EDT Patient informed okay to take prednisone. Jael Gunter RN [facility]06-27-2025 Miscellaneous Notes* Telephone Encounter - Jael Gunter RN - 09/18/2024 4:04 PM EDT Patient informed okay to take prednisone. Jael Gunter RN * Telephone Encounter - Thelma Vitale - 09/18/2024 8:29 AM EDT Patient was prescribed 40 mg prednisone for 5 days for pinched nerve. She is asking if okay to take, she will be taking chemo next week. documented in this encounterMercy Health [facility] Hospital06-27-2025 Telephone encounter Note * Telephone Encounter - Thelma Vitale - 09/18/2024 8:29 AM EDT Patient was prescribed 40 mg prednisone for 5 days for pinched nerve. She is asking if okay to take, she will be taking chemo next week. [facility] Work Phone: 1(653) 734-534106-27-2025 Radiology Diagnostic study note [facility] Imaging Services [address] [place], [place] [address] Cerv Spine 4 or 5 Views MR#: [id number] Acct: [id number] Name: Everette HERBERT Rep #: [id number] : 1960 F 64 From: Percy Garcia MD PCP: Dr. Hellen Lafleur MD Status: REG C ELICIA Study:Cerv Spine 4 or 5 Views Date of Exam: 09/17/24 Exam# [id number] Ordering Dr: Bennett Kong MD PROCEDURE: CERV [...] anterolisthesis of C7 on T1. Reading [id number] CC: Dr. Alec Kong MD; Dr. Hellen Lafleur MD ~ Architectural Inspector: Signed [facility]06-24-2025 Telephone encounter Note* Telephone Encounter - Brielle Mcbride LPN - 09/15/2024 3:31 PM EDT I requested Dr. Merino's OV note. Dr. Zhu spoke with the patient. Brielle Mcbride LPN [facility]06-24-2025 Miscellaneous Notes* Telephone Encounter - Brielle Mcbride LPN - 09/15/2024 3:31 PM EDT I requested Dr. Merino's OV note. Dr. Zhu spoke with the patient. Brielle Mcbride LPN * Telephone Encounter - Jael Gunter RN - 09/15/2024 2:52 PM EDT Patient stated she had an appointment with Dr. Merino today and she would like patient to resume treatment. Patient is asking when she should resume taxol? Patient is scheduled for an OV with Dr. Zhu on 09/21 and taxol on 09/22. Patient stated she was advised to start sooner than currently scheduled. Please advise. Thank you. Jael Gunter RN documented in this encounterMercy Health Urbana Hospital06-24-2025 Telephone encounter Note * Telephone Encounter - Jael Gunter RN - 09/15/2024 2:52 PM EDT Patient stated she had an appointment with Dr. Merino today and she would like patient to resume treatment. Patient is asking when she should resume taxol? Patient is scheduled for an OV with Dr. Zhu on 09/21 and taxol on 09/22. Patient stated she was advised to start sooner than currently scheduled. Please advise. Thank you. Jael Gunter RN [facility]06-12-2025 Telephone encounter Note* Telephone Encounter - Hellen Zhu DO - 09/03/2024 3:38 PM EDT Sounds good. Thank you. Hellen Zhu DO [facility]06-12-2025 Miscellaneous Notes* Telephone Encounter - Hellen Zhu DO - 09/03/2024 3:38 PM EDT Sounds good. Thank you. Hellen Zhu DO * Telephone Encounter - Kathie Adame LPN - 09/03/2024 3:09 PM EDT Spoke with pt. , informed she can [...] so pt. Can have surgery on 09/21 or09/28. [address] DR. Zhu is in agreement than on 09/08 she can have her Keytruda only and this will put her in the time frame needed to undergo surgery on either date. Kathie Adame LPN * Telephone Encounter - Hellen Zhu DO - 09/03/2024 2:57 PM EDT I recommend right sided mastectomy. Happy to speak with Dr. Merino next week when she returns. Shellie can certainly continue Keytruda up to the time of surgery and right after depending on how things are scheduled. Should hold paclitaxel about 2-3 weeks prior to surgery however. Hellen Zhu DO * Telephone Encounter - Brielle Mcbride LPN - 09/03/2024 10:35 AM EDT Path results given to Dr. Zhu. Brielle Mcbride LPN * Telephone Encounter - Brielle Mcbride LPN - 09/03/2024 9:13 AM EDT I requested path results from 08/26/[address] Merino's office. Brielle Mcbride LPN * Telephone Encounter - Thelma Vitale - 09/03/2024 8:50 AM EDT Patient called asking if we received biopsy results from [facility] yesterday. She states it would be coming from Dr. Merino. She is asking if there will be a change in her treatment due to results documented in this encounterMer[facility]06-12-[facility]25 Telephone encounter Note * Telephone Encounter - Kathie Adame LPN - 09/03/2024 3:09 PM EDT Spoke with pt. , informed she can [...] so pt. Can have surgery on 09/21 or09/28. [address] Zhu is in agreement than on 09/08 she can have her Keytruda only and this will put her in the time frame needed to undergo surgery on either date. Kathie Adame LPN [facility]06-12-2025 Telephone encounter Note* Telephone Encounter - Hellen Zhu DO - 09/03/2024 2:57 PM EDT I recommend right sided mastectomy. Happy to speak with Dr. Merino next week when she returns. Shellie can certainly continue Keytruda up to the time of surgery and right after depending on how things are scheduled. Should hold paclitaxel about 2-3 weeks prior to surgery however. Hellen Zhu DO [facility]06-12-2025 Telephone encounter Note* Telephone Encounter - Brielle Mcbride LPN - 09/03/2024 10:35 AM EDT Path results given to Dr. Zhu. Brielle Mcbride LPN [facility]06-12-2025 Telephone encounter Note* Telephone Encounter - Brielle Mcbride LPN - 09/03/2024 9:13 AM EDT I requested path results from 08/26/[address] Merino's office. Brielle Mcbride LPN [facility]06-12-2025 Telephone encounter Note* Telephone Encounter - Thelma Vitale - 09/03/2024 8:50 AM EDT Patient called asking if we received biopsy results from [facility] yesterday. She states it would be coming from Dr. Merino. She is asking if there will be a change in her treatment due to results [facility] Work Phone: 1(697) 329-156806-03-2025 NoteHNO ID: [id number] Author: BLANKA DEL RIO, RN Service: ? 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 The carcinoma cells express cytokeratin AE1/AE3, GATA3, TRPS 1, and SOX10, and are negative for PAX8, TTF-1, and CDX2, supporting mammary origin. Breast biomarker studies have been requested and results will be reported separately in a linked report. 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 Diagnosed with lymphocytic colitis about 3 years ago. Abdominal pain/diarrhea. Treated with probiotic and magnesium supplement. Had MRI brain and PET scan at [facility] on 04/09. MRI reported with LEFT [...] 3 of which were included within the jgiys-pc-abdt measuring up to 2.8 cm. No internal [...] was discussed with the patient or authorized commissary representative. The patient or authorized commissary representative has agreed to proceed with the [...] Distribution different, but had new ones prior tostarting therapy. See photos. ABDOMEN: The abdomen is [...] x 4?) and radiation. 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 [...] Zhu DO documented in this encounterMercy Health [facility]rbana [facility]05-28-2025 Note* Exam Date Time Procedure Performing Provider Status 08/19/24 10:32 AM US Breast Right Limited SAMI HADDAD MD; Auth (Verified) [id number] ORIGINAL FROM: [place] [address] PROCEDURE FOR: CARRIE HERBERT [address] [place] [id number] Home: PID#: [id number] Exam#: [id number] : 1960 Age: 64 TO: DEBBIE MERINO MD [address] [place] [address] Fax: NO FAX EXAMINATION: ULTRASOUND OF THE RIGHT BREAST 08/19/2024 8:58 am TECHNIQUE: Color flow and laughlin scale targeted ultrasound of the right breast were performed. Permanently stored images were reviewed. COMPARISON: 08/11/2024 mammogram and 08/04/2024 PET-CT scan from [facility]. HISTORY: ORDERING SYSTEM PROVIDED HISTORY: Reason for [...] 08/19/2024 10:49:23 AM Ordering Provider: DEBBIE MERINO Apartment Leasing Specialist: JESUSITA BETTS, [facility] letter sent: Biopsy Recommended BI-RADS 4 and 5 Ultrasound BI-RADS: 4 Suspicious for malignancy [facility] [id number] Note* Exam Date Time Procedure Performing Provider Status 08/19/24 9:39 AM [place] Mammo Diagnostic Bilateral w/ANITA Boone MD; Auth (Verified) [id number] ORIGINAL FROM: [place] [address] PROCEDURE FOR: CARRIE HERBERT [facility]ly [facility] [place] [address] Home: PID#: [id number] Exam#: [id number] : 1960 Age: 64 TO: DEBBIE MERINO MD [address] [place] [address] Fax: NO FAX EXAMINATION: DIAGNOSTIC BILATERAL MAMMOGRAM [...] 08/19/2024 10:46:10 AM Ordering Provider: DEBBIE MERINO Apartment Leasing Specialist: JULIAN HOLLIS RT(R)(M) letter sent: Abnormal-Needs additional work up BI-RADS 0 Mammogram BI-RADS: 0 Indeterminate [facility] [id number] Telephone encounter Note* Telephone Encounter - Brielle Mcbride LPN - 08/05/2024 1:22 PM EDT Patient is aware of all information and will obtain a disc while here on Saturday for treatment. Brielle Mcbride LPN [facility]05-14-2025 Miscellaneous Notes* Telephone Encounter - Brielle [...] I recommend she see her surgeon at [facility] to evaluate an rebiopsy if she thinks it is indicated. Shellie could take a disc of the PET scan to her surgeon, Dr. Debbie Merino. Hellen Zhu DO * Telephone Encounter - Jael Gunter RN - 08/05/2024 11:20 AM EDT PET scan results are available to review. Results printed and will place on Dr. Zhu's desk. Jael Gunetr RN * Telephone Encounter - Hellen Zhu [...] wanted to let Dr. Zhu know her bumps are clearing up and she is very pleased with treatment so far. documented in this encounterMercy [facility]05-14-2025 Telephone encounter Note * Telephone Encounter [...] I recommend she see her surgeon at [facility] to evaluate an rebiopsy if she thinks it is indicated. Shellie could take a disc of the PET scan to her surgeon, Dr. Debbie Merino. Hellen Zhu DO [facility]05-14-2025 Telephone encounter Note* Telephone Encounter - Jael Gunter RN - 08/05/2024 11:20 AM EDT PET scan results are available to review. Results printed and will place on Dr. Zhu's desk. Jael Gunter RN [facility]05-13-2025 Telephone encounter Note* Telephone Encounter - Hellen Zhu DO - 08/04/2024 1:25 PM EDT Great. Thank you. Hellen Zhu DO [facility]05-13-2025 Telephone encounter Note* Telephone Encounter - Peg Stallings RN - 08/04/2024 11:40 AM EDT Patient updated on MRI results. She would like someone to call her when her PET scan comes back since she does not get on her mychart. She also wanted to let Dr. Zhu know her bumps are clearing up and she is very pleased with treatment so far. [facility]05-08-2025 Progress note* Result Encounter Note - Hellen Zhu DO - 07/30/2024 4:11 PM EDT Can let her know MRI brain normal. [facility]05-08-2025 Miscellaneous Notes* Result Encounter Note - Hellen Zhu DO - 07/30/2024 4:11 PM EDT Can let her know MRI brain normal. documented in this encounterMercy Health [facility]rbana [facility]05-08-2025 History of Present illness Narrative* Kia Trujillo, RT(R) - 07/30/2024 2:00 PM EDT Radiology [...] PATIENT PRESENTS WITH AN IMPLANTABLE OR ATTACHED REAL ESTATE EXECUTIVE ASSISTANT: No ALLERGIES: Reviewed and unchanged CONTRAST ALLERGY: [...] 2:03 PM documented in this encounterMercy Health [facility]05-08-2025 NoteK[facility]05-07-2025 Telephone encounter Note* Telephone Encounter - Jael [...] number protocol. Jael Gunter RN [facility]05-07-2025 Miscellaneous Notes* Telephone Encounter - Jael [...] Gunter RN documented in this encounterMercy Health [facility]05-06-2025 Telephone encounter Note * Telephone Encounter - Thelma Vitale - 07/28/2024 2:55 PM EDT Schedule updated [facility] Work Phone: 1(773) 322-200405-06-2025 Miscellaneous Notes* Telephone Encounter - Thelma Vitale - 07/28/2024 2:55 PM EDT Schedule updated * Telephone Encounter - Keila Crooks RN - 07/28/2024 1:54 PM EDT Pt no longer has a port. Please schedule lab appts accordingly. Thank you. documented in this encounterMercy Health [facility]05-06-2025 Note* Addendum Note - Keila Crooks RN - 07/28/2024 1:54 PM EDTAddended by: KEILA CROOKS on: 07/28/2024 01:54 PM Modules accepted: Orders [facility]05-06-2025 Telephone encounter Note* Telephone Encounter - Keila Crooks RN - 07/28/2024 1:54 PM EDT Pt no longer has a port. Please schedule lab appts accordingly. Thank you. [facility]05-06-2025 Miscellaneous Notes* Addendum Note - Keila Crooks RN - 07/28/2024 1:54 PM EDTAddended by: KEILA CROOKS on: 07/28/2024 01:54 PM Modules accepted: Orders * Addendum Note - Keila Crooks RN - 07/28/2024 11:48 AM EDTAddended by: KEILA CROOKS on: 07/28/2024 11:48 AM Modules accepted: Orders documented in this encounterMercy [facility]05-06-2025 Note* Addendum Note - Keila Crooks RN - 07/28/2024 11:48 AM EDTAddended by: KEILA CROOKS on: 07/28/2024 11:48 AM Modules accepted: Orders [facility]05-05-2025 Telephone encounter Note* Telephone Encounter - [...] Authorizing Provider: HELLEN ZHU DO [facility]05-05-2025 Miscellaneous Notes* Telephone Encounter - Hellen [...] immediate assistance. YES - Provided Chemotherapy Immunotherapy when to call handouts YES - Preventing infection. YES - [...] Gunter RN documented in this encounterMercy Health [facility]05-05-2025 Telephone encounter Note * Telephone Encounter [...] immediate assistance. YES - Provided Chemotherapy Immunotherapy when to call handouts YES - Preventing infection. YES - [...] Spent: 15 minutes REFERRAL (RECOMMENDATION): N/A Jael Doup, RN [facility]05-03-2025 Telephone encounter Note* Telephone Encounter - [...] best suited for this discussion. [facility] Work Phone: 1(330) 418-478905-03-2025 Miscellaneous Notes* Telephone Encounter - Mary Green [...] knows it is cancer. documented in this encounterMercy Health [facility]05-02-2025 Telephone encounter Note * Telephone Encounter - [...] contact her. Kathie Adame LPN [facility]05-02-2025 Telephone encounter Note* Telephone Encounter - Thelma Vitale - 07/24/2024 1:46 PM EDT Patient calling for 07/17 biopsy results. Informed her they were still in process. She is asking to speak to clinical about them if possible. She states she is nervous and that she knows it is cancer. [facility] Work Phone: 1(753) 487-560005-02-2025 Instructions* Patient Instructions* Mary Green MD - 07/24/2024 7:04 AM EDT documented in this encounterMercy Health [facility]05-02-2025 NoteK[facility]05-02-2025 History of Present illness Narrative* Mary Green MD - 07/24/2024 6:59 AM EDT FOLLOW UP VISIT NAME: Carrie Hensley [facility] NO.: [id number] DATE OF SERVICE: 07/23/2024 : 1960 REFERRING [...] Green MD documented in this encounterMercy Health [facility]04-27-2025 NoteK[facility]04-25-2025 NoteK[facility]04-25-2025 NoteK[facility]04-24-2025 NoteK[facility]04-21-2025 Telephone encounter Note* Telephone Encounter - Roro Lorenzo - 07/13/2024 1:09 PM EDT I called and spoke to Carrie and scheduled her to see this week 07/16/24 @ 11:30 am, she confirmed this date and time Roro Cooper [facility]04-21-2025 Miscellaneous Notes* Telephone Encounter - Roro Lorenzo - 07/13/2024 1:09 PM EDT I called and spoke to Carrie and scheduled her to see this week 07/16/24 @ 11:30 am, she confirmed this date and time Roro Cooper * Telephone Encounter - Hellen Zhu DO [...] we can let Carrie know Roro Cooper documented in this encounterMercy Health [facility]04-21-2025 Telephone encounter Note * Telephone Encounter - Hellen Zhu DO - 07/13/2024 12:38 PM EDT OV with me. Hellen Zhu DO [facility]04-21-2025 Telephone encounter Note* Telephone Encounter - [...] let Carrie know Roro Cooper [facility]04-08-2025 Discharge summary Author Chase Manjarrez [facility] Note Date/Time June 30, 2024 3:11 pm [facility] Physical Therapy [facility] [address] [place] [address] / REHABILITATION SERVICES DISCHARGE SUMMARY MR#: [id number] Acct: [id number] Name: Everette HERBERT Rep #: [id number] : 1960 64 From: Cert. GREG Parisi, OCS Referring Dr.: Dr. Alec Kong MD Stat us: REG RCR Insurance: MEDICARE PART A B [facility] Discharge Summary D/C summary: It has been [...] please feel free to call me at [phone]. Thank you for the referral of thispatient. Sincerely, Chase Manjarrez PT, Cert T, OCS Balance/Gait/Functional tests Balance/Special Test Scores Oswestry Low Back Score: 0 Improvement % Improvement: 80 <Electronically signed by Cert. GREG Arriaza PT, OCS> 06/30/24 1511 CC: Dr. Alec Kong MD; Dr. Hellen Lafleur MD ~ STEVEA Signed [facility] Work Phone: 1(219) 991-165604-08-2025 Discharge summary [facility] [address] [place] [address] [address] [place] [address] / REHABILITATION SERVICES DISCHARGE SUMMARY MR#: [id number] Acct: [id number] Name: Everette HERBERT Rep #: [id number] : 1960 64 From: Cert. GREG Parisi, OCS Referring Dr.: Dr. Alec Kong MD Stat us: REG RCR Insurance: MEDICARE PART A B [facility] Discharge Summary D/C summary: It has been [...] please feel free to call me at [phone]. Thank you for the referral of thispatient. Sincerely, Chase Manjarrez, PT, Cert MDT, OCS Balance/Gait/Functional tests Balance/Special Test Scores Oswestry Low Back Score: 0 Improvement % Improvement: 80 06/30/24 1511 CC: Dr. Alec Kong MD; Dr. 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 Diagnosed with lymphocytic colitis about 3 years ago. Abdominal pain/diarrhea. Treated with probiotic and magnesium supplement. Had MRI brain and PET scan at [facility] on 04/09. MRI reported with LEFT [...] 3 of which were included within the aqycy-vi-kksi measuring up to 2.8 cm. No internal [...] a pinched nerve. Following with surg at [facility], just had exam and US last month. [...] x 4?) and radiation. 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 Plan: CBC, CMP, TSH, T4 and OV with Dr Zhu in 4 months. Advised to call with any question or concerns in the meantime. Kala Kaba APRN.SAMPLE BODY BUILDER I spent a total of 20 minutes on the date of the service which included preparing to see the patient, drxk-yh-oqfp patient care, completing clinical documentation, obtaining and/or [...] this patient. documented in this encounterMercy [facility]03-03-2025 History of Present illness Narrative* Tarsha Alvaerz RT(R) - 05/25/2024 3:00 PM EST Radiology [...] PATIENT PRESENTS WITH AN IMPLANTABLE OR ATTACHED REAL ESTATE EXECUTIVE ASSISTANT: No ALLERGIES: Reviewed and unchanged CONTRAST ALLERGY: [...] 4:01 PM documented in this encounterMercy Health [facility]03-03-2025 NoteKettering [facility]02-27-2025 Telephone encounter Note* Telephone Encounter - Zabrina Palencia - 05/21/2024 10:27 AM EST Attached orders for CT Zabrina Talha [facility]02-27-2025 Miscellaneous Notes* Telephone Encounter - Zabrina Palencia - 05/21/2024 10:27 AM EST Attached orders for CT Zabrina Talha * Telephone Encounter - Brielle Mcbride LPN [...] and B. documented in this encounterMercy Health [facility] Hospital02-27-2025 Telephone encounter Note * Telephone Encounter - Brielle Mcbride LPN - 05/21/2024 10:06 AM EST New orders need linked to CT appointments. Brielle Mcbride LPN [facility]02-26-2025 Telephone encounter Note* Telephone Encounter - Hellen Zhu DO - 05/20/2024 6:35 PM EST Thank you. Filed. Hellen Zhu DO [facility]02-26-2025 Telephone encounter Note* Telephone Encounter - [...] for Medicare A and B. [facility]02-05-2025 Evaluation note* Diagnosis Onset Date Resolution Status Admit Date Encounter for insertion of venous access port inactive April 29, 2024 12:53pm [facility] Work Phone: [phone] 167-222402-03-2025 Telephone encounter Note* Telephone Encounter - Brielle Mcbride LPN - 04/27/2024 3:24 PM EST Order faxed. Patient aware. Brielle Mcbride LPN [facility]02-03-2025 Miscellaneous Notes* Telephone Encounter - Brielle [...] to be faxed to Dr. Mccann at [facility] stating okay to have her port removed. documented in this encounterMercy Health [facility] Hospital02-03-2025 Telephone encounter Note * Telephone Encounter - Hellen Zhu DO - 04/27/2024 3:07 PM EST Yes. Hellen Zhu DO [facility]02-03-2025 Telephone encounter Note* Telephone Encounter - Brielle Mcbride LPN - 04/27/2024 2:50 PM EST Is it okay for patient to have port removed? Brielle Mcbride LPN [facility]02-03-2025 Telephone encounter Note* Telephone Encounter - Thelma Vitale - 04/27/2024 2:48 PM EST Patient called requesting an order to be faxed to Dr. Mccann at [facility] stating okay to have her port removed. [facility] Work Phone: 1(236) 293-496212-26-2024 Telephone encounter Note* Telephone Encounter - Brielle Mcbride LPN - 03/19/2024 1:[address] Noland- patient to start a magnesium supplement QHS and try a shot of tonic water nightly. Patient agreeable and verbalized understanding. Brielle Mcbride LPN [facility]12-26-2024 Miscellaneous Notes* Telephone Encounter - Brielle [...] apt this afternoon with Dr Kong with [facility] Please advise documented in this encounterMercy Health [facility] Hospital12-26-2024 Telephone encounter Note * Telephone Encounter [...] Keytruda 02/25/2024. Brielle Mcbride LPN [facility]12-26-2024 Telephone encounter Note* Telephone Encounter - Verónica Stern - 03/19/2024 11:10 AM EST Patient called said her calves are cramping getting worse she does have apt this afternoon with Dr Kong with [facility] Please advise [facility] Work Phone: 1(375) 726-115712-03-2024 Miscellaneous Notes* Telephone Encounter - Zabrina Palencia [...] and labs documented in this encounterMercy Health [facility] Hospital12-03-2024 Telephone encounter Note * Telephone Encounter - Zabrina Palencia - 02/25/2024 4:16 PM EST Patient stopped and scheduled Zabrina Palencia [facility]12-03-2024 Telephone encounter Note* Telephone Encounter - Christal Laurent - 02/25/2024 11:40 AM EST Patient is going to stop and yasir it [facility]12-02-2024 Telephone encounter Note* Telephone Encounter - Zabrina Palencia - 02/24/2024 4:[address] scan in 3 months CBC/CMP/TSH/T4/Cortisol OV [address] and labs [facility]12-02-2024 NoteKettering [facility]12-02-2024 History of Present illness Narrative* Hellen Zhu DO - 02/24/2024 2:29 PM EST Oncologic problem(s): 1) 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 Diagnosed with lymphocytic colitis about 3 years ago. Abdominal pain/diarrhea. Treated with probiotic and magnesium supplement. Had MRI brain and PET scan at [facility] on 04/09. MRI reported with LEFT [...] 3 of which were included within the rvkrc-vn-fplr measuring up to 2.8 cm. No internal [...] x 4?) and radiation. 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 [...] Zhu DO documented in this encounterMercy Health [facility]10-30-2024 History of Present illness Narrative* Melony [...] finished on 12/25/23. It's ER negative (<1%), IL negative (<1%) and Her2 1+. She is [...] Davis MD documented in this encounterMercy Health U[facility]ana Hospital10-22-2024 History of Present illness Narrative* Lory Kaplan RN - 01/14/2024 2:27 PM EDT Pt. Was seen by Kala Kaba CNP yesterday. Pt states no changes and verbally agrees to treatment. 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 Diagnosed with lymphocytic colitis about 3 years ago. Abdominal pain/diarrhea. Treated with probiotic and magnesium supplement. Had MRI brain and PET scan at [facility] on 04/09. MRI reported with LEFT [...] 3 of which were included within the dumyi-wu-szxl measuring up to 2.8 cm. No internal [...] x 4?) and radiation. 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 [...] Kenalog 0.1% lotion. As needed Kala Kaba APRN.SAMPLE BODY BUILDER I spent a total of 20 minutes on the date of the service which included preparing to see the patient, rsvp-uk-jdpb patient care, completing clinical documentation, obtaining and/or [...] this patient. documented in this encounterMercy Health [facility] Hospital10-02-2024 History of Present illness Narrative* Lory Kaplan RN - 12/25/2023 2:41 PM EDT Written discharge instructions given and reviewed with patient. Patient verbalizes understanding. Encouraged to call with any questions or concerns. Instruction for follow up appointment given by . documented in this encounterMercy Health [facility] Hospital10-02-2024 History of Present illness Narrative* Melony Davis MD - 12/25/2023 12:00 AM EDT CARRIE HERBERT [id number] : 1960 12/25/2023 [facility] Department of Radiation Oncology RADIATION ONCOLOGY - [...] ypT0 and ypN0. It's ER negative (<1%), IL negative (<1%) and Her2 1+. She is [...] / 42:10 PM Electronically Signed cc: Ken Zarco (Maeve) [address] [address] Hellen Zhu [address] [facility] [address] documented in this encounterMercy Health [facility] History of Present illness Narrative* Melony [...] ypT0 and ypN0. It's ER negative (<1%), IL negative (<1%) and Her2 1+. She is [...] Davis MD documented in [facility] encounterMer[facility] Nurse Note* Debra Thomas RN - 12/23/2023 2:41 PM EDT Radiation Therapy - Nursing Note (OTV) PATIENT NAME: Carrie Herbert PATIENT December 23, 2023 [facility] FACILITY/LOCATION: [place] NURSING NOTE TYPE: BREAST Subjective Data No c/o Additional Data Do you want to see a Grievance And Appeals Specialist? No Status: Post-menopausal. Stress Scale: On a [...] SIGNED by: Debra Thomas RN [facility]09-30-[facility] Nurse Note* Debra Thomas RN - 12/23/2023 2:41 PM EDT Radiation Therapy - Nursing Note (OTV) PATIENT NAME: Carrie Herbert PATIENT December 23, 2023 [facility] FACILITY/LOCATION: [place] NURSING NOTE TYPE: BREAST Subjective Data No c/o Additional Data Do you want to see a Grievance And Appeals Specialist? No Status: Post-menopausal. Stress Scale: On a [...] Thomas RN documented in this encounterMercy [facility]09-24-2024 Nurse Note* Stacie Roger RN - 12/17/2023 2:52 PM EDT Radiation Therapy - Nursing Note (OTV) PATIENT NAME: Carrie Herbert PATIENT December 17, 2023 [facility] FACILITY/LOCATION: [place] NURSING NOTE TYPE: BREAST Subjective Data itching and redness increased on chest and back, c/o slighing feeling but not pain Additional Data Do you want to see a Grievance And Appeals Specialist? No Status: Post-menopausal. Stress Scale: On a scale of 0 to 10, what number best describes how much distress you have experienced in the past week?(0 being no distress and 10 being extreme distress) 0 Social work notified: Pt denied need to see social services specialist at this time. Nursing Assessment Fatigue: none [...] SIGNED by: Stacie Roger RN [facility]09-24-[facility] Nurse Note* Stacie Roger RN - 12/17/2023 2:52 PM EDT Radiation Therapy - Nursing Note (OTV) PATIENT NAME: Carrie Herbert PATIENT December 17, 2023 [facility] FACILITY/LOCATION: [place] NURSING NOTE TYPE: BREAST Subjective Data itching and redness increased on chest and back, c/o slighing feeling but not pain Additional Data Do you want to see a Grievance And Appeals Specialist? No Status: Post-menopausal. Stress Scale: On a scale of 0 to 10, what number best describes how much distress you have experienced in the past week?(0 being no distress and 10 being extreme distress) 0 Social work notified: Pt denied need to see social services specialist at this time. Nursing Assessment Fatigue: none [...] Roger RN documented in this encounterMer[facility]09-24-[facility]24 History of Present illness Narrative* Melony [...] ypT0 and ypN0. It's ER negative (<1%), IL negative (<1%) and Her2 1+. She is [...] Davis MD documented in this encounterMer[facility]09-[facility]-2024 Telephone encounter Note * Telephone Encounter - Keila Mace - 12/17/2023 9:57 AM EDT Izaiah Lay called with the following information: Patient has been approved for imaging guidance for localization for radiation treatment, Special radiation treatment, and delivery of simple radiation treatment. All has been scheduled with [facility] in [place] and Valid from 12/17-03/16/24. Auth # [id number] Keila Mace [facility]09-24-[facility]24 Miscellaneous Notes* Telephone Encounter - Keila Mace - 12/17/2023 9:57 AM EDT Izaiah Lay called with the following information: Patient has been approved for imaging guidance for localization for radiation treatment, Special radiation treatment, and delivery of simple radiation treatment. All has been scheduled with [facility] in [place] and Valid from 12/17-03/16/24. Auth # [id number] Keila Mace documented in this encounterMercy [facility]09-17-2024 Nurse Note* Stacie Roger RN - 12/10/2023 2:42 PM EDT Radiation Therapy - Nursing Note (OTV) PATIENT NAME: Carrie Herbert PATIENT December 10, 2023 [facility] FACILITY/LOCATION: [place] NURSING NOTE TYPE: BREAST Subjective Data rash continues, using kenalog lotion Additional Data Do you want to see a Grievance And Appeals Specialist? No Status: Post-menopausal. Stress Scale: On a scale of 0 to 10, what number best describes how much distress you have experienced in the past week?(0 being no distress and 10 being extreme distress) 0 Social work notified: Pt denied need to see social services specialist at this time. Nursing Assessment Fatigue: none [...] SIGNED by: Stacie Roger RN [facility] Nurse Note* Stacie Roger RN - 12/10/2023 2:42 PM EDT Radiation Therapy - Nursing Note (OTV) PATIENT NAME: Carrie Herbert PATIENT December 10, 2023 [facility] FACILITY/LOCATION: [place] NURSING NOTE TYPE: BREAST Subjective Data rash continues, using kenalog lotion Additional Data Do you want to see a Grievance And Appeals Specialist? No Status: Post-menopausal. Stress Scale: On a scale of 0 to 10, what number best describes how much distress you have experienced in the past week?(0 being no distress and 10 being extreme distress) 0 Social work notified: Pt denied need to see social services specialist at this time. Nursing Assessment Fatigue: none [...] Roger RN documented in this encounterMercy Health [facility]09-17-2024 History of Present illness Narrative* Melony [...] ypT0 and ypN0. It's ER negative (<1%), IL negative (<1%) and Her2 1+. She is [...] Davis MD documented in this encounterMer[facility]09-10-2024 History of Present illness Narrative* Melony [...] ypT0 and ypN0. It's ER negative (<1%), IL negative (<1%) and Her2 1+. 2. h/o [...] Davis MD documented in this encounterMer[facility]09-10-2024 Nurse Note* Stacie Roger RN - 12/03/2023 2:33 PM EDT Radiation Therapy - Nursing Note (OTV) PATIENT NAME: Carrie Herbert PATIENT December 03, 2023 [facility] FACILITY/LOCATION: [facility] NOTE TYPE: BREAST Subjective Data c/o rash on chest and small upper back left side Additional Data Do you want to see a Grievance And Appeals Specialist? No Status: Post-menopausal. Stress Scale: On a scale of 0 to 10, what number best describes how much distress you have experienced in the past week?(0 being no distress and 10 being extreme distress) 0 Social work notified: Pt denied need to see social services specialist at this time. Nursing Assessment Fatigue: none [...] SIGNED by: Stacie Roger RN [facility] Nurse Note* Stacie Roger RN - 12/03/2023 2:33 PM EDT Radiation Therapy - Nursing Note (OTV) PATIENT NAME: Carrie Herbert PATIENT December 03, 2023 [facility] FACILITY/LOCATION: [place] NURSING NOTE TYPE: BREAST Subjective Data c/o rash on chest and small upper back left side Additional Data Do you want to see a Grievance And Appeals Specialist? No Status: Post-menopausal. Stress Scale: On a scale of 0 to 10, what number best describes how much distress you have experienced in the past week?(0 being no distress and 10 being extreme distress) 0 Social work notified: Pt denied need to see social services specialist at this time. 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 The carcinoma cells express cytokeratin AE1/AE3, GATA3, TRPS 1, and SOX10, and are negative for PAX8, TTF-1, and CDX2, supporting mammary origin. Breast biomarker studies have been requested and results will be reported separately in a linked report. 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 Diagnosed with lymphocytic colitis about 3 years ago. Abdominal pain/diarrhea. Treated with probiotic and magnesium supplement. Had MRI brain and PET scan at [facility] on 04/09. MRI reported with LEFT [...] 3 of which were included within the uelcy-uk-hpui measuring up to 2.8 cm. No internal [...] DX W/COLLJ SPEC WHEN PFRMD Comment: Colonoscopy 2012: COLONOSCOPY SCREENING 01/2020: EGD 1991: LIG/TRNSXJ FLP [...] x 4?) and radiation. 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 [...] which included preparing to see the patient, aqwx-ao-ffga patient care, completing clinical documentation, obtaining and/or reviewing separately obtained history, performing a medically appropriate examination, counseling and educating the pat ient/family/caregiver, ordering medications, tests, or procedures, communicating with other HCPs (not separately reported), and communicating results to the patient/family/caregiver. Hellen Zhu DO documented in this encounterMer[facility]09-03-2024 History of Present illness Narrative* Melony [...] ypT0 and ypN0. It's ER negative (<1%), IL negative (<1%) and Her2 1+. 2. h/o [...] NAME: Carrie Herbert PATIENT November 26, 2023 [facility] FACILITY/LOCATION: [place] NURSING NOTE TYPE: BREAST Subjective Data some itching around breast area for about three days Additional Data Do you want to see a Grievance And Appeals Specialist? No Status: Post-menopausal. Stress Scale: On a scale of 0 to 10, what number best describes how much distress you have experienced in the past week?(0 being no distress and 10 being extreme distress) 0 Social work notified: Pt denied need to see social services specialist at this time. Nursing Assessment Fatigue: none [...] Roger RN documented in this encounterMercy [facility]08-27-2024 Nurse Note* Lory Kaplan RN - 11/19/2023 3:00 PM EDT Radiation Therapy - Nursing Note (OTV) PATIENT NAME: Carrie Herbert PATIENT November 19, 2023 [facility] FACILITY/LOCATION: [place] NURSING NOTE TYPE: BREAST Subjective Data No concerns expressed today Additional Data Do you want to see a Grievance And Appeals Specialist? No Status: Patient states there is no possibility she is at this time. Stress Scale: On a scale of 0 to 10, what number best describes how much distress you have experienced in the past week?(0 being no distress and 10 being extreme distress) 0 Social work notified: Pt denied need to see social services specialist at this time. Nursing Assessment Fatigue: none [...] treatment for lymphedema? No SIGNED by: Lory Kaplan RN [facility]08-27-[facility] Nurse Note* Lory Kaplan RN - 11/19/2023 3:00 PM EDT Radiation Therapy - Nursing Note (OTV) PATIENT NAME: Carrie Herbert PATIENT November 19, 2023 [facility] FACILITY/LOCATION: [facility] NOTE TYPE: BREAST Subjective Data No concerns expressed today Additional Data Do you want to see a Grievance And Appeals Specialist? No Status: Patient states there is no possibility she is at this time. Stress Scale: On a scale of 0 to 10, what number best describes how much distress you have experienced in the past week?(0 being no distress and 10 being extreme distress) 0 Social work notified: Pt denied need to see social services specialist at this time. Nursing Assessment Fatigue: none [...] treatment for lymphedema? No SIGNED by: Lory Kaplan RN documented in this encounterMer[facility]08-27-2024 History of Present illness Narrative* Melony [...] ypT0 and ypN0. It's ER negative (<1%), IL negative (<1%) and Her2 1+. 2. h/o [...] Davis MD documented in this encounterMercy Health [facility]08-20-2024 History of Present illness Narrative* Melony [...] ypT0 and ypN0. It's ER negative (<1%), IL negative (<1%) and Her2 1+. 2. h/o [...] NAME: Carrie Herbert PATIENT November 12, 2023 [facility] FACILITY/LOCATION: [place] NURSING NOTE TYPE: BREAST Subjective Data no complaints Additional Data Do you want to see a Grievance And Appeals Specialist? No Status: Post-menopausal. Stress Scale: On a scale of 0 to 10, what number best describes how much distress you have experienced in the past week?(0 being no distress and 10 being extreme distress) 0 Social work notified: Pt denied need to see social services specialist at this time. Nursing Assessment Fatigue: none [...] Roger RN documented in this encounterMercy [facility]08-12-2024 Nurse Note* Debra Thomas RN - 11/04/2023 3:01 PM EDT Radiation Therapy - Patient Education Note PATIENT NAME: Carrie Herbert PATIENT November 04, 2023 [facility] FACILITY/LOCATION: [place] READINESS TO LEARN Cognitive Ability: Alert and [...] handouts on Department phone list, Fatigue, and [place] instructions, XRT sheet and Aquaphor handout. Referral (recommendation): None, Pt denied need for social work, van service, and foundation digger. Was PED reviewed? unknown Patient has an Onbody or Implanted device: No Signed by: Debra Thomas RN [facility] Nurse Note* Debra Thomas RN - 11/04/2023 3:01 PM EDT Radiation Therapy - Patient Education Note PATIENT NAME: Carrie Herbert PATIENT November 04, 2023 [facility] FACILITY/LOCATION: [place] READINESS TO LEARN Cognitive Ability: Alert and [...] material: Informational handouts on Department phone list, [facility], and [place] instructions, XRT sheet and Aquaphor handout. Referral (recommendation): None, Pt denied need for social work, van service, and foundation digger. Was PED reviewed? unknown Patient has an Onbody or Implanted device: No Signed by: Debra Thomas RN documented in this encounterMercy Health [facility]08-12-2024 History of Present illness Narrative* Melony Davis MD - 11/04/2023 12:00 AM EDT CARRIE HERBERT [id number] 11/04/2023 [facility] Department of Radiation Oncology [facility] RADIATION ONCOLOGY SIMULATION NOTE DATE OF SIMULATION: 11/04/2023 MACHINE: Siemens Definition CT Simulator Diagnosis: 1. Clinical stage IIIC, cT1 cN2a, invasive mammary carcinoma of the left breast, s/p neoadjuvant chemotherapy and pembro, s/p left breast lumpectomy and sentinel node biopsy on 10/02/23. Complete pathologic response with ypT0 and ypN0. It's ER negative (<1%), IL negative (<1%) and Her2 1+. 2. h/o [...] 42:02 PM documented in this encounterMercy Health [facility]08-12-2024 History of Present illness Narrative* Melony Davis MD - 11/04/2023 12:00 AM EDT CARRIE HERBERT [id number] 11/04/2023 [facility] Department of Radiation Oncology Treatment Planning Note [...] due to presence of a prosthesis (tissue vb net programmer or implant) in the treatment field. After [...] 42:03 PM documented in this encounterMercy Health [facility]07-[facility]-2024 Nurse Note* Stacie Roger RN - 10/23/2023 2:21 PM EDT Radiation Therapy - Nursing Note (Follow-up) PATIENT NAME: Carrie Herbert PATIENT October 23, 2023 [facility] FACILITY/LOCATION: [place] Reason for visit: Follow up to discuss treatment options. Subjective Data no complaints Additional Data Do you want to see a Grievance And Appeals Specialist? No Nursing Assessment Fatigue: none Appetite: good [...] SIGNED by: Stacie Roger RN [facility] Nurse Note* Stacie Roger RN - 10/23/2023 2:21 PM EDT Radiation Therapy - Nursing Note (Follow-up) PATIENT NAME: Carrie Herbert PATIENT October 23, 2023 [facility] FACILITY/LOCATION: [place] Reason for visit: Follow up to discuss treatment options. Subjective Data no complaints Additional Data Do you want to see a Grievance And Appeals Specialist? No Nursing Assessment Fatigue: none Appetite: good [...] Roger RN documented in this encounterMer[facility] Health [facility]07-[facility]-2024 History of Present illness Narrative* Melony [...] ypT0 and ypN0. It's ER negative (<1%), IL negative (<1%) and Her2 1+. 2. h/o [...] ductal carcinoma. Positive LVI. ER negative (0), IL negative (0) and Her2 negative (0). PET/CT [...] ypT0 and ypN0. It's ER negative (<1%), IL negative (<1%) and Her2 1+. I recommend [...] that other personnel such as radiation therapists, retaining room cutter, and physicists will partici rabago in planning and delivery of radiation treatment. Permanent tattoo landis will be placed to aid with positioning for daily treatment and the patient consented. Patient will have a simulation procedure after she heals from surgery. Thank you very much for allowing us to participate in her care. Signed by: Melony Davis MD cc: Ken Zarco ([facility]) 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 Diagnosed with lymphocytic colitis about 3 years ago. Abdominal pain/diarrhea. Treated with probiotic and magnesium supplement. Had MRI brain and PET scan at [facility] on 04/09. MRI reported with LEFT [...] 3 of which were included within the cmsfa-wm-frjv measuring up to 2.8 cm. No internal [...] x 4?) and radiation. 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 Hellen Zhu DO documented in this encounterMercy Health [facility]07-10-2024 Hospital Discharge instructions Patient Education 10/02/2023 [...] Follow these instructions at home: Medicines Take rorh-qvb-hbmuako and prescription medicines only as told by [...] and water are not available, use hand desizing machine operator. ?Change your dressing as told by your [...] 05/08/2017 Document Revised: 06/30/2019 Document Reviewed: 05/08/2017 [employer] Patient Education 2020 [employer]. 10/02/2023 14:14:08 Breast Biopsy, Care After, Gagd-fb-Tvab Breast Biopsy, Care After These instructions give [...] Follow these instructions at home: Medicines Take jsie-ube-rydqanv and prescription medicines only as told by [...] cannot use soap and water, use hand desizing machine operator. ?Change your bandage as told by your [...] 01/05/2010 Document Revised: 08/28/2018 Document Reviewed: 08/28/2018 [email or web address] Patient Education 2020 [employer] 10/02/2023 14:13:55 1- SDS General Discharge Guidelines (12/07/2022)(CUSTOM) [facility] DISCHARGE INSTRUCTIONS PLEASE FOLLOW [...] Care 09/16/2023 12:51:04 With:DEBBIE MERINO MD Address: [address] [place] [address] [place] [address]- When:10/10/2023 15:30:00 Comments:Follow-up as scheduled [facility] 07-10-2024 Summary of episode note Discharge Instructions Thank you for allowing [facility] to assist you with your healthcare needs. [...] 10/10/2023 03:30 PM EDT DEBBIE MERINO MD [facility] Confirmed Follow Up Appointments Follow Up with DEBBIE MERINO MD When:10/10/2023 03:30 PM EDT Where:[address] [facility] [place] [address]- Additional Information: Follow-up as scheduled The Following [...] post-operative pain Duration: 2 Days Pickup at [facility] [address] Unchanged ALPRAZolam (ALPRAZolam 0.5 mg oral [...] a day (in the morning) Pharmacy Information [facility] [address]: [address] [place], [place] [phone] Please take this list to your next [...] Follow these instructions at home: Medicines Take mmci-hib-pxjownp and prescription medicines only as told by [...] and water are not available, use hand desizing machine operator. ? Change your dressing as told by [...] 05/08/2017 Document Revised: 06/30/2019 Document Reviewed: 05/08/2017 [employer] Patient Education 2020 [employer]. Breast Biopsy, Care After These instructions give [...] Follow these instructions at home: Medicines Take rzdy-vgw-hgkbnzj and prescription medicines only as told by [...] cannot use soap and water, use hand desizing machine operator. ? Change your bandage as told by [...] 01/05/2010 Document Revised: 08/28/2018 Document Reviewed: 08/28/2018 [employer] Patient Education 2020 [employer]. [facility] DISCHARGE INSTRUCTIONS PLEASE FOLLOW [...] to receive it can visit one of [facility] vaccine clinics. There are many vaccine clinic locations within the [facility]. For locations and available times, please visit [email or web address] It is important to note that some COVID mobile vaccine clinics are held outdoors and may be canceled in rainy or stormy conditions. To learn more about pediatric vaccinations (ages 5-11), we invite you to visit the [facility] webpage. [email or web address] learn more about the COVID-19 vaccine, we invite you to visit the CDC website for a list of frequently asked questions.https://www.cdc.gov/coronavirus/2019-ncov/vaccines/faq.html [employer] Patient Portal Access Instructions: Stay connected with your healthcare team and access your personal medical information anytime with the [employer] Patient Portal. Please follow the directions below to create your [employer] account: 1.Access the email account you provided upon registration to the hospital/physician office.2.Look for an invitation email from [facility].3.Open the email and access the invitation link: AcceptInvitation to [employer].4.Fill in the required zambrano to create your account. To access your account, visit [email or web address]. Click the blue button labeled Access Patient Portal and then log in with the username [...] who you will allowto register on the [facility] [employer]Chart Patient Portal for access to your information. You can also access the [facility] [employer]Chart Patient Portal on the [facility] jass. Simply click on Patient Portal and then log into your account. If you would like to receive a full copy of your medical records, please contact the [facility] Medical Records Department by calling [phone], Saturday through Saturday between 8 a.m. and [...] Call your local pharmacy or go to [email or web address] to find one close to you.3.Make use of household items: Use cat litter or old coffee grounds to dispose medications if other options arenot available. Mix your drugs with these household products, seal them in an airtight container andthrow it into the garbage. Call [facility]: [phone] to be sure your drugs can be [...] Dissection, Care After Breast Biopsy, Care After, Bvtx-an-Zczx 1- SDS General Discharge Guidelines (12/07/2022)(CUSTOM) Medication Leaflets My discharge plan and instructions have been reviewed and explained to me and I,CARRIE HERBERT understand my current condition and have read and understand these discharge instructions. I have received a written copy of the plan/instructions. If I have questions, I am aware that I should contact my doctor. Patient/Vice President Process Signature: Date/Time: Relationship to Patient: Witness Name/Signature: Date/Time: [facility]Kecfzwyz56-[facility]-1311 Anesthesiology Consult note Patient: CARRIE HERBERT Age: [...] YAIMA MAC MD on 10/02/2023 01:52 PM [facility] HospitalOwvcelkw92-71-9776 Note ORIGINAL EXAMINATION: SENTINEL NODE 10/02/2023 8:40 am TECHNIQUE: 569 and 591 microcuries of Tc99 Lymphoseek was provided to DEBBIE MERINO for sentinel lymph node localization and injected in the left breast at 8:15 a.m. by Brandon Carmichael Patient was then taken to the OR for probe guided lymph node localization. HISTORY: [place] node localization for surgery. Breast cancer left [...] Sign Date: 10/02/2023 8:54:44 AM Ordering Provider: DEBBIEBERNARDA ABRAHAMZanesville City HospitalTolrouno12-19-3989 Anesthesiology Consult note Patient: CARRIE HERBERT Age: [...] f/u rec (September 2023) / SNOMED CT 269613921 /Confirmed History of right breast cancer (1991, age 31) estrogen neg, partial mast, ALND, adjuv chemo, R, no endocrine / SNOMED CT 9068027833 / Confirmed History of breast implants approx 2001 breast augmentation, bilat retropectoral silicone / SNOMED CT 9038971407 / Confirmed Breast cancer of left UOQ (angiolymphatic invasion) clinical stage 3C T1c N2a M0 G3 TNC, clip, port, neoadj chemo(Dr Zhu), 05/2023 [facility] genetics neg, MRI 07/17/23 / SNOMED CT 725088732 / Confirmed 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 fat necrosis / SNOMED CT 1728246485 / Confirmed, Active Problems (16) Anxiety At [...] of right breast biopsy, 2021. fat necrosis (4549583243): Onset in 2021 at 60 years. Comments: 09/23/2023 EDT 11:35 EMETERIO Peña RIGHT BREAST BIOPSY History of breast implants approx 2001 breast augmentation, bilat retropectoral silicone ([id number]) Comments: 09/23/2023 EDT 11:35 EMETERIO Peña IMPLANTS 2001 Family History: Procedure history: Phacoemulsification of cataract with intraocular lens implantation (5389555838) in 2019 at 59 Years. Comments: 09/23/2023 11:[address] - Retinal detachment (777962466) in 2019 at 58 Years. History of bilateral breast implants (0132548103) in 2013 at 53 Years. Lumpectomy of right breast (0175337149) in 1991 at 31 Years. Colonoscopy (550783190). Esophagogastroduodenoscopy (540551079). H/O: tubal ligation (348313539). Social History: Social & Psychosocial Habits Alcohol [...] Signs (last 24 hrs) Last Charted Temp Wjlvxgsv44.9 DegC (OCT 01 07:22) FKK701 mmHg (OCT 01 07:22) DBP67 mmHg (OCT 01 07:22) BMI19.08 (OCT 01 07:31) Measurements from flowsheet : Measurements 10/02/2023 7:31 EDT Body Mass Index 19.08 kg/m2 10/02/2023 7:22 EDT Height 165.1 cm Height in inches 65 inch(es) Admission Weight 52.0 kg Weight Lbs 114.4 lb Weight Method Actual [place] Body Weight 57.00 kg Type of Scale [...] Lab results 10/02/2023 8:15 EDT Procedure Note [place] Node Injectionm - LEFT breast 10/02/2023 7:49 EDT SN - Preop - CTm Pt Ready for OR/Proced 10/02/2023 7:49 10/02/2023 7:45 EDT Antecubital Right 10/02/2023 22 gauge Peripheral IV Activity: Unsuccessful Peripheral IV Number of Attempts: 2 10/02/2023 7:31 EDT Designated Person #1 We May Share KAROLINA CONNER [phone] Designated Person #1 Relationship Spouse Designated Person #2 We May Share KAROLINA Fenton [phone] Designated Person #2 Relationship Friend Privacy Restrictions [...] No Advanced Directives Yes Advance Directive Type [place] Durable Power of Motor Runner for [facility], [place] Declaration (Living Will) Advance Directive Location [...] after midnight, No makeup, No jewelry, Responsible Democrat, Aware of surgery location, 2 bottles CHG wash with instructions given, Instructed to take ordered medications, Instructed to bring home medications, VTE prevention handout given, SSI prevention handout given, MRSA protocol education provided SN - Preprocedure Comments Spoke with patient, Verbalizes/Nonverbally indicates understanding Barriers to Learning None evident Teaching Method Explanation, Printed materials Preferred Spoken Language Mosotho Preferred Written Language Mosotho Teaching Evaluation Verbalizes/Nonverbally indicates understanding Safety Brochure Information Reviewed Yes Nazia Yanez Video Viewed Yes Information Given by Patient [...] Method Explanation, Printed materials Preferred Spoken Language Mosotho Preferred Written Language Mosotho Family/Caregiver Prefer Spoken Language Mosotho Family/Caregiver Prefer Written Language Mosotho Surgical Site Infection Prevention SSI FAQ provided, [...] Weight Lbs 114.4 lb Weight Method Actual [place] Body Weight 57.00 kg Type of Scale [...] no difficulties Skin Temperature Warm Skin Description Pollard, Dry Skin Integrity Intact Neurological Symptoms Patient [...] after midnight, No makeup, No jewelry, Responsible Democrat, Aware of surgery location, 2 bottles CHG wash with instructions given, Instructed to take ordered medications, Instructed to bring home medications, VTE prevention handout given, SSI prevention handout given, MRSA protocol education provided (Modified) Admission Note-Nursing Patient History PreTest (Modified) . Assessment and Plan [place] Society of Anesthesiologists (ASA) physical status classification: [...] ANITA DIEZ MD on 10/02/2023 08:56 AM [facility] HospitalTdwegavm63-04-9704 Procedure note IR Brief Post Procedure Note [...] follow. Farheen Carmichael PA-C Interventional Radiology Pager: [phone] IR dept: [id number] Available on [employer] Digitally Signed by FARHEEN CARMICHAEL PA-C on 10/02/2023 08:15 AM [facility] HospitalSbzbhzim36-20-0282 Telephone encounter Note* Telephone Encounter - Brielle Mcbride LPN - 09/16/2023 9:14 AM EDT Patient is aware she will not have any further treatments until after surgery if needed. Brielle Mcbride LPN [facility]06-24-2024 Miscellaneous Notes* Telephone Encounter - Brielle [...] upcoming appointments. documented in this encounterMer[facility]06-20-2024 Telephone encounter Note * Telephone Encounter - Thelma Vitale - 09/12/2023 12:15 PM EDT Patient called stating she was informed that she was finished with treatment. Please advise on upcoming appointments. [facility] Work Phone: 1(261) 216-419506-20-2024 Telephone encounter Note* Telephone Encounter - Thelma Vitale - 09/12/2023 12:13 PM EDT Patient called to inform that she is having surgery on 10/03 [facility] Work Phone: 1(348) 212-722706-20-2024 Miscellaneous Notes* Telephone Encounter - Thelma Vitale [...] and they would like results faxed to [phone]. Patient will be in office today. documented in this encounterMer[facility]06-20-2024 Telephone encounter Note * Telephone Encounter - Brielle Mcbride LPN - 09/12/2023 9:16 AM EDT Faxed to Dr. Merino's office. Brielle Mcbride LPN [facility]06-20-2024 Telephone encounter Note* Telephone Encounter - Thelma Vitale - 09/12/2023 9:[address] Merino's office called stating patient had genetic testing done and they would like results faxed to [phone]. Patient will be in office today. [facility]06-14-2024 Telephone encounter Note* Telephone Encounter - Brielle Mcbride LPN - 09/06/2023 3:19 PM EDT Patient is scheduled with Dr. Berumen 09/12/2023. Brielle Mcbride LPN [facility]06-14-2024 Miscellaneous Notes* Telephone Encounter - Brielle [...] her insurance will not cover surgery at [facility] or any of the sites that she does surgery. Patient will need to make an appointment with Dr. Debbie Merino (or if faster we can make referral). She is at [facility] in [place] and is apparently in network. Hellen Zhu DO documented in this encounterMercy Health [facility]06-14-2024 Telephone encounter Note * Telephone Encounter [...] Merino's office. Brielle Mcbride LPN [facility]06-14-2024 Miscellaneous Notes* Telephone Encounter - Brielle [...] is calling for pet scan results from [facility] on documented in this encounterMercy Health [facility]06-14-2024 Telephone encounter Note * Telephone Encounter - Thelma Vitale - 09/06/2023 2:31 PM EDT Patient is calling for pet scan results from [facility] on [facility] Work Phone: 1(782) 198-610706-13-2024 Telephone encounter Note* Telephone Encounter - Keila Christina DO - 09/05/2023 11:13 AM EDT Called to follow up regarding scheduling surgery. She spoke with a [facility] financial member last week. Unfortunately her insurance does not cover care at [facility]. She was given the cost for out of pocket surgery. She does not wish to pay this. She was given the contact information for Dr. Debbie Merino who is a breast surgeon at [facility]. All questions were answered. Keila Christina DO Breast Surgeon [facility]06-13-2024 Miscellaneous Notes* Telephone Encounter - Keila Christina DO - 09/05/2023 11:13 AM EDT Called to follow up regarding scheduling surgery. She spoke with a [facility] financial member last week. Unfortunately her insurance does not cover care at [facility]. She was given the cost for out of pocket surgery. She does not wish to pay this. She was given the contact information for Dr. Debbie Merino who is a breast surgeon at [facility]. All questions were answered. Keila Christina DO Breast Surgeon documented in this encounterMercy Health [facility]06-13-2024 Telephone encounter Note * Telephone Encounter - Kathie Adame LPN - 09/05/2023 8:19 AM EDT Spoke with pt. Informed she would need to be referred to Dr. Berumen, given phone number to contact . If a referral is needed pt. Will call and let us know. Kathie Adame LPN [facility]06-12-2024 Telephone encounter Note* Telephone Encounter - Hellen Zhu DO - 09/04/2023 5:[address] Christina let me know her insurance will not cover surgery at [facility] or any of the sites that she does surgery. Patient will need to make an appointment with Dr. Debbie Merino (or if faster we can make referral). She is at [facility] in [place] and is apparently in network. 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 Diagnosed with lymphocytic colitis about 3 years ago. Abdominal pain/diarrhea. Treated with probiotic and magnesium supplement. Had MRI brain and PET scan at [facility] on 04/09. MRI reported with LEFT [...] 3 of which were included within the xcsna-ow-vmam measuring up to 2.8 cm. No internal [...] x 4?) and radiation. 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 [...] which included preparing to see the patient, gkah-bu-cfry patient care, completing clinical documentation, obtaining and/or reviewing separately obtained history, performing a medically appropriate examination, counseling and educating the pat ient/family/caregiver, ordering medications, tests, or procedures, and communicating results to thepatient/family/caregiver. Hellen Zhu DO documented in this encounterMercy [facility]06-06-2024 Nurse Note* Kathie Adame LPN - 08/29/2023 11:33 AM EDT Est. Pt, discuss recent labs, tx tomorrow Kathie Adame LPN [facility]06-06-2024 Nurse Note* Kathie Adame LPN - 08/29/2023 11:33 AM EDT Est. Pt, discuss recent labs, tx tomorrow Kathie Adame LPN documented in this encounterMercy Health [facility] Hospital05-30-2024 Telephone encounter Note * Telephone Encounter - Keila Mace - 08/22/2023 2:48 PM EDT Spoke with patient and with [facility] [employer]. Patient is scheduled for 09/03/23 with a 7:45 arrival time for an 8:[address] Orders and other documentation faxed to [email or web address]Fax confirmation scanned into [employer]. Keila Mace [facility]05-30-2024 Miscellaneous Notes* Telephone Encounter - Keila Mace - 08/22/2023 2:48 PM EDT Spoke with patient and with [employer]. Patient is scheduled for 09/03/23 with a 7:45 arrival time for an 8:[address] Orders and other documentation faxed to [email or web address]Fax confirmation scanned into [employer]. Keila Mace * Telephone Encounter - Hellen Zhu DO - 08/22/2023 1:05 PM EDT Patient discussed with Dr. Christina who is still working on insurance coverage for surgery. In the meantime, need follow up PET at [facility] to help assess response of axillary LNs to neoadjuvant therapy. Dr. Noland is still an out of network provider. Please schedule as soon as able. Hellen Zhu DO documented in this encounterMercy Health [facility]05-30-2024 Telephone encounter Note * Telephone Encounter - Hellen Zhu DO - 08/22/2023 1:05 PM EDT Patient discussed with Dr. Christina who is still working on insurance coverage for surgery. In the meantime, need follow up PET at [facility] to help assess response of axillary LNs to neoadjuvant therapy. Dr. Noland is still an out of network provider. Please schedule as soon as able. Hellen Zhu DO [facility]05-30-2024 History of Present illness Narrative* Keila [...] report). LN extendedto level 2 (sub pec) ER-IL-HER2- [id number] History of RIGHT breast cancer, diagnosed at [...] surgical options. Genetic testing multi-cancer panel through [employer] was negative for a pathogenic variant. 05/2023 [...] made to exams dated: 04/24/2023 mammogram - [facility], 04/17/2023 mammogram - [facility], 04/17/2023 mammogram - [facility], and 10/09/2021 mammogram - [facility]. The breasts are almost entirely fatty. There [...] made to exams dated: 04/24/2023 mammogram - [facility], 04/17/2023 mammogram - [facility], 04/17/2023 mammogram - [facility], and 10/09/2021 mammogram - [facility]. Color flow and real-time ultrasound of the [...] report). LN extendedto level 2 (sub pec) ER-IL-HER2- [id number] History of RIGHT breast cancer, diagnosed at [...] lumpectomy. We discussed placement of the grisel patrol police sergeant in the breast and possibly the axilla. [...] questions, concerns or problems in the interim. Kiela Christina DO Breast Surgeon cc: Ken Zarco ([facility]) [address] [place] [address] Dr. Ayaan Reid documented in this encounterMercy Health [facility] Hospital05-30-2024 Nurse Note* Flor Cottrell LPN - [...] use: No Drug use: No [facility]05-30-2024 Nurse Note* Flor Cottrell LPN - [...] use: No documented in this encounterMercy Health [facility] Hospital05-28-2024 History of Present illness Narrative* Joanne [...] PATIENT PRESENTS WITH AN IMPLANTABLE OR ATTACHED REAL ESTATE EXECUTIVE ASSISTANT: No RADIOLOGY DEPARTMENT: Ultrasound PERIPHERAL IV DATA: Not applicable SIGNED BY: Joanne Jean Baptiste RDMS August 20, 2023 3:55 PM documented in this encounterMercy Health [facility]05-28-2024 History of Present illness Narrative* Soheila [...] PATIENT PRESENTS WITH AN IMPLANTABLE OR ATTACHED REAL ESTATE EXECUTIVE ASSISTANT: No RADIOLOGY DEPARTMENT: Mammography PERIPHERAL IV DATA: Not applicable SIGNED BY: Lala Pierreo Rene August 20, 2023 2:02 PM documented in this encounterMercy Health [facility]05-24-2024 Telephone encounter Note * Telephone Encounter - Jael Gunter RN - 08/16/2023 1:[address] Zhu, okay to cancel ECHO. No need to complete a peer to peer at this time. Jael Gunter RN [address]24-2024 Miscellaneous Notes* Telephone Encounter - Jael Gunter RN - 08/16/2023 1:[address] Zhu, okay to cancel ECHO. No need to complete a peer to peer at this time. Jael Gunter RN * Telephone Encounter - Thelma Vitale - 08/15/2023 3:00 PM EDT Madi called stating that peer to peer is needed for echo and EKG. please call [phone] documented in this encounterMercy Health [facility]05-23-2024 Telephone encounter Note * Telephone Encounter - Thelma Vitale - 08/15/2023 3:00 PM EDT Madi called stating that peer to peer is needed for echo and EKG. please call [phone] [facility] Work Phone: 1(335) 525-642605-16-2024 History of Present illness Narrative* Demarcus Rodriguez APRN.SILVANA - 08/08/2023 10:00 AM EDT Chief Complaint [...] tissue involved by metastatic mammary carcinoma (provisional Orange grade 3). The carcinoma cells express cytokeratin AE1/AE3, GATA3, TRPS 1, and SOX10, and are negative for PAX8, TTF-1, and CDX2, supporting mammary origin. Breast biomarker studies have been requested and results will be reported separately in a linked report. 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 Diagnosed with lymphocytic colitis about 3 years ago. Abdominal pain/diarrhea. Treated with probiotic and magnesium supplement. Had MRI brain and PET scan at [facility] on 04/09. MRI reported with LEFT [...] 3 of which were included within the umvjm-ju-cqbr measuring up to 2.8 cm. No internal [...] - No malignancy identified. - See comment. Appetite:Good. Wt. stable. Energy level:Good. Denies fevers. Mouth:denies sores Resp:denies cough or sob Cardiac:denies chest pain/palpitations GI:denies abd pain, n/v, moving bowels regularly-taking probiotic :denies dysuria/hematuria Extrem:mild pain when bending legs up to top of thighs-It is a tad better. Endo:denies hot flashes Neuro:denies symptoms of neuropathy [...] - 4.00 k/uL 0.59 (L) 0.76 (L) Larue% % 9.0 15.9 Abs Larue <0.87 k/uL 0.18 0.39 Eosin% % 2.0 [...] 196.3, ICD10: C50.912, C77.3 cTx cN2a Mx ER/IL negative, HER2 negative grade 3 clinical stage [...] and edited as necessary for today's visit. Demarcus Rodriguez APRN.SILVANA documented in this encounterMercy Health [facility]05-06-2024 Telephone encounter Note * Telephone Encounter - Hellen Zhu DO - 07/29/2023 2:45 PM EDT [place], will. No need for further work up. Hellen Zhu DO [facility]05-06-2024 Miscellaneous Notes* Telephone Encounter - Hellen Zhu DO - 07/29/2023 2:45 PM EDT Perri, will. No need for further work up. Hellen Zhu DO * Telephone Encounter - Scarlet Bess LPN - 07/29/2023 1:21 PM EDT Reviewed with pt. She says that feeling of palpitations has gone away, it was just the one day. Scarlet Bess LPN * Telephone Encounter - [...] Echo results documented in this encounterMercy Health [facility]05-06-2024 Telephone encounter Note * Telephone Encounter - Scarlet Bess LPN - 07/29/2023 1:21 PM EDT Reviewed with pt. She says that feeling of palpitations has gone away, it was just the one day. Scarlet Bess LPN [facility]05-06-2024 Telephone encounter Note* Telephone Encounter - Hellen Zhu DO - 07/29/2023 1:10 PM EDT Echocardiogram showed normal heart pumping strength. Unchanged chronic aortic valve regurgitation. EKG showed normal electrical pattern of the heart with an occasional premature beat. That may have accounted for some of the palpitations she was having. Are they still occurring? Hellen Zhu DO [facility]05-06-2024 Telephone encounter Note* Telephone Encounter - Thelam Vitale - 07/29/2023 12:50 PM EDT Patient calling for 07/22 EKG and Echo results [facility] Work Phone: 1(101) 251-821705-02-2024 Telephone encounter Note* Telephone Encounter - Marleen Pulliam - 07/25/2023 2:06 PM EDT Patient approached the desk and is wondering if anyone has heard anything about her seeing Dr. Christina. Patient is getting anxious about getting her surgery scheduled, and wanted to exhaust every effort to get scheduled with Dr. Christina. Patient asking for an update.. Thanks [facility]05-02-2024 Miscellaneous Notes* Telephone Encounter - Marleen [...] needed. [facility], she prefers [...] scheduled with breast surgeon (if available) at [facility] she will also need a plastic surgeon down the road and [facility] has this per their online portal. She only needs to be scheduled with the breast surgeon as of now. It's recommended that she have a bilateral mastectomy and left sided lymph nodes removed. Patient is aware of this. Dr. Dario Peterson seems to be the breast surgeon at [facility]. Brielle Mcbride LPN * Telephone Encounter [...] PM EDT Spoke with registration staff at [facility] and they suggested calling the Referring Physician's Hotlineat [phone]. Please have someone clinical who knows what the patient needs from a surgeon contact this number and have patient scheduled at [facility] as it is the only other [facility] location covered by the patient's insurance. Keila [...] with one of the breast oncologist at [facility], we decided to hold off [...] Zhu DO documented in this encounterMercy Health [facility]05-01-2024 Telephone encounter Note * Telephone Encounter [...] needed. She did notwant to schedule at [facility] breast center at this time, she prefers to make something work with being scheduled with Dr.Valente Butcher or her office can patient please get an update from you, if you have one. Thank you, Roro Andujar Pss [facility]05-01-2024 Telephone encounter Note* Telephone Encounter - Brielle Mcbride LPN - 07/24/2023 1:29 PM EDT Being addressed in another phone encounter. Brielle Mcbride LPN [facility]05-01-2024 Miscellaneous Notes* Telephone Encounter - Brielle Mcbride LPN - 07/24/2023 1:29 PM EDT Being addressed in another phone encounter. Brielle Mcbride LPN * Telephone Encounter - Brielle Mcbride LPN - 07/22/2023 3:36 PM EDT Patient states [facility] is covered by her insurance. It says online that [facility] has a breast center. Please see if they have a breast surgeon and assist patient in scheduling. Brielle Mcbride LPN * Telephone Encounter - Brielle Mcbride LPN - 07/22/2023 2:[address] Darby does procedures at [place] or [place], neither are covered by patient's insurance. I will contact patient to see what/where her insurance covers. Brielle cMbride LPN * Telephone Encounter - Keila Mace [...] and advise. documented in this encounterMercy Health [facility]05-01-2024 Telephone encounter Note * Telephone Encounter - Brielle Mcbride LPN - 07/24/2023 12:58 PM EDT I've tried calling the number below 4 times and it just rings fast busy. PSS- please attempt to get patient scheduled with breast surgeon (if available) at [facility] she will also need a plastic surgeon down the road and [facility] has this per their online portal. She only needs to be scheduled with the breast surgeon as of now. It's recommended that she have a bilateral mastectomy and left sided lymph nodes removed. Patient is aware of this. Dr. Dario Peterson seems to be the breast surgeon at [facility]. Brielle Mcbride LPN [facility]05-01-2024 Telephone encounter Note* Telephone Encounter - Brielle Mcbride LPN - 07/24/2023 11:44 AM EDT I tried calling the number given below 3 times, rings fast busy. Brielle Mcbride LPN [facility] [facility]04-30[facility] Telephone encounter Note* Telephone Encounter - Marleen Pulliam - 07/23/2023 11:49 AM EDT Patient stopped by and wanted to let us know that $24,000 is coming out of appeal on July 28 and will come off of her bill. She is not sure if this will make a difference in her getting scheduled or not. Marleen Lubin [facility]04-29-2024 Telephone encounter Note* Telephone Encounter - Keila Mace - 07/22/2023 4:26 PM EDT Spoke with registration staff at [facility] and they suggested calling the Referring Physician's Hotlineat [phone]. Please have someone clinical who knows what the patient needs from a surgeon contact this number and have patient scheduled at [facility] as it is the only other [facility] location covered by the patient's insurance. Keila Mace [facility]04-29-2024 Telephone encounter Note* Telephone Encounter - Keila Mace - 07/22/2023 4:12 PM EDT Spoke with patient and scheduled for 07/22. Keila Mace [facility]04-29-2024 Miscellaneous Notes* Telephone Encounter - Keila [...] 11:48 AM EDT Care Coordination Triage Note [facility] Situation: Patient reports Other heart palpitations Background: [...] also stated her legs have felt weak like I ran a marathon x 4-6 weeks. Denies over muscle weakness. [...] leg weakness. documented in this encounterMer[facility]04[facility] Telephone encounter Note * Telephone Encounter - Jael Gunter RN - 07/22/2023 4:00 PM EDT Patient informed of Dr. Zhu's response, stated understanding. PSS- please contact patient to schedule. Thank you. Jael Gunter RN [facility]04-29-2024 Telephone encounter Note* Telephone Encounter - Brielle Mcbride LPN - 07/22/2023 3:36 PM EDT Patient states [facility] is covered by her insurance. It says online that [facility] has a breast center. Please see if they have a breast surgeon and assist patient in scheduling. Brielle Mcbride LPN [facility]04-29-2024 Telephone encounter Note* Telephone Encounter - Brielle Mcbride LPN - 07/22/2023 2:[address] Darby does procedures at [place] or [place], neither are covered by patient's insurance. I will contact patient to see what/where her insurance covers. Brielle Mcbride LPN [facility]04-29-2024 Telephone encounter Note* Telephone Encounter - Keila Mace - 07/22/2023 2:37 PM EDT Please file order for Dr. Darby. We will schedule with patient and link order once signed. Keila Mace [facility]04-29-2024 Telephone encounter Note* Telephone Encounter - Kathie Adame LPN - 07/22/2023 2:07 PM EDT Spoke with pt. She is ok with seeing Dr. Darby, informed our PSS will reach out to his office andmake arrangements for visit. Do we need consultation order? Kathie Adame LPN [facility]04-29-2024 Telephone encounter Note* Telephone Encounter - Hellen Zhu DO - 07/22/2023 1:23 PM [address] I think Dr. Darby needs to see her and assess if he can perform the surgery. Hellen Zhu DO [facility]04-29-2024 Telephone encounter Note* Telephone Encounter - Hellen Zhu DO - 07/22/2023 1:05 PM EDT Please arrange to labs, EKG and STAT echocardiogram. Hellen Zhu DO [facility]04-29-2024 Telephone encounter Note* Telephone Encounter - Jael Gunter RN - 07/22/2023 11:48 AM EDT Care Coordination Triage Note [facility] Situation: Patient reports Other heart palpitations Background: [...] also stated her legs have felt weak like I ran a marathon x 4-6 weeks. Denies over muscle weakness. Patient stated yesterday and today she has felt completely normal minus the leg weakness. Denies neuropathy. TSH/T4 were normal on 07/17. Recommendations: Will discuss with Dr. Zhu. Jael Gunter RN July 22, 2023 11:49 AM [facility]04-29-2024 Telephone encounter Note* Telephone Encounter - Thelma Vitale - 07/22/2023 10:53 AM EDT Patient called stating that her appt with Dr. Christina has been canceled due to being out of network. Her office had recommended Dr. Darby. Patient asking for Dr. Zhu to review and advise. [facility] Work Phone: 1(587) 578-876804-29-2024 Telephone encounter Note* Telephone Encounter - Flor Cottrell LPN - 07/22/2023 10:43 AM EDT Called pt to inform her she has a financial hold and her insurance is out of network. Gave pt financial counselor Dagoberto Garcia number [phone] and surgeon at [place] if she has to schedule there for surgery. She verbalized understanding and thanked me for the information. Flor Cottrell LPN [facility] Work Phone: 1(904) 370-200304-29-2024 Miscellaneous Notes* Telephone Encounter - Flor Cottrell LPN - 07/22/2023 10:43 AM EDT Called pt to inform her she has a financial hold and her insurance is out of network. Gave pt financial counselor Dagoberto Garcia number [phone] and surgeon at [facility] if she has to schedule there for surgery. She verbalized understanding and thanked me for the information. Flor Cottrell LPN documented in this encounterMercy [facility]04-[facility]-2024 Telephone encounter Note * Telephone Encounter - Thelma Vitale - 07/22/2023 9:22 AM EDT Patient called to inform office that she had side effect on Saturday - palpitations, dizziness, hadto lie down. Has not had above symptoms since. Has had ongoing leg weakness. [facility] Work Phone: 1(360) 518-576204-26-2024 Telephone encounter Note* Telephone Encounter - Jael Gunter RN - 07/19/2023 9:16 AM EDT See other phone encounter from Dr. Zhu. He called patient to discuss her question. No need to antiemetic calendar at this time. Jael Gunter RN [facility]04-26-2024 Miscellaneous Notes* Telephone Encounter - Jael [...] for antiemetics. Calendar created. Patient is wondering why we can't just remove the lymph nodes if we don't like them and then do chemo? Patient would appreciate an answer from Dr. [...] EDT Rx for Dexamethasone and Olanzapine. Karley Baldwin RN documented in this encounterMercy [facility]04-[facility]-2024 Telephone encounter Note * Telephone Encounter [...] with one of the breast oncologist at [facility], we decided to hold off on the anthracycline portion of her NAC. Had difficulty with her neutrophil count during CarboTaxol phase of it. She has had very good radiographic response. We are recommending surgery at this juncture with the potential for further adjuvant chemotherapy following but Iwill keep her on immunotherapy in the meantime. Hellen Zhu DO [facility]04-25-2024 Telephone encounter Note* Telephone Encounter - Jael Gunter RN - 07/18/2023 2:12 PM EDT Spoke to the patient. Patient informed of Dr. Zhu's response, stated understanding. This nurse will give her a calendar tomorrow for antiemetics. Calendar created. Patient is wondering why we can't just remove the lymph nodes if we don't like them and then do chemo? Patient would appreciate an answer from Dr. Zhu, will discuss and let her know his response. Jael Gunter RN [facility]04-25-2024 Telephone encounter Note* Telephone Encounter - Hellen Zhu DO - 07/18/2023 12:38 PM EDT Also, when signing orders for chemotherapy tomorrow, interaction flagged with Adriamycin and cimetidine and Paxil. Ask her to discontinue cimetidine. Rx for Pepcid sent if she needs antacid. Ask her to cut Paxil in half for the time being. Hellen Zhu DO [facility]04-25-2024 Telephone encounter Note* Telephone Encounter - [...] 72 hours. Hellen Zhu DO [facility]04-25-2024 Telephone encounter Note* Telephone Encounter - Evangelina Baldwin RN - 07/18/2023 11:03 AM EDT Rx for Dexamethasone and Olanzapine. 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 Diagnosed with lymphocytic colitis about 3 years ago. Abdominal pain/diarrhea. Treated with probiotic and magnesium supplement. Had MRI brain and PET scan at [facility] on 04/09. MRI reported with LEFT [...] 3 of which were included within the xobmf-cp-zghs measuring up to 2.8 cm. No internal [...] nausea. Compazine works well. Still has occasional sour stomach. Not able to articulate this more than [...] x 4?) and radiation. 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 -No family history of breast, gynecologic or other malignancy. -Tolerating treatment symptomatically well with grade diarrhea that has not gotten worse. -Awaiting results of MRI breast done yesterday at [facility]. However she still has palpable axillary [...] which included preparing to see the patient, wqwy-rj-reav patient care, completing clinical documentation, obtaining and/or reviewing separately obtained history, performing a medically appropriate examination, counseling and educating the pat ient/family/caregiver, ordering medications, tests, or procedures, communicating with other HCPs (not separately reported), and communicating results to the patient/family/caregiver. Hellen Zhu DO documented in this encounterCleveland [id number] History of Present illness Narrative* Scarlet Bess LPN - 07/18/2023 9:30 AM EDT Pt here for injection of Zarxio. Given SQ in right arm. Pt tolerated well. For all other information regarding today, see today's OV note with Dr Zhu. Scarlet Bess LPN documented in this encounterMercy [facility]04-24-2024 NoteHNO ID: [id number] Author: NATALIE COLÓN RT(R) Service: ? Author [...] PATIENT PRESENTS WITH AN IMPLANTABLE OR ATTACHED REAL ESTATE EXECUTIVE ASSISTANT: No ALLERGIES: Reviewed and unchanged CONTRAST ALLERGY: NO. EXAM: MRI - CONTRAST TYPE: GROUP II PERIPHERAL IV DATA: Ambulatory: A peripheral IV was started in the Left antecubital site with a Angio cath: 22 gauge. RADIOLOGY DEPARTMENT: MR; Exam(s) Completed: Chest: Breast SIGNATURE: RT Una(R) PATIENT NAME: Carrie Herbert DATE: July 17, 2023 TIME: 10:38 [facility] History of Present illness Narrative* Natalie Colón RT(R) - 07/17/2023 9:45 AM EDTSummary: MRI Radiology [...] PATIENT PRESENTS WITH AN IMPLANTABLE OR ATTACHED REAL ESTATE EXECUTIVE ASSISTANT: No ALLERGIES: Reviewed and unchanged CONTRAST ALLERGY: NO. EXAM: MRI - CONTRAST TYPE: GROUP II PERIPHERAL IV DATA: Ambulatory: A peripheral IV was started in the Left antecubital site with a Angio cath: 22 gauge. RADIOLOGY DEPARTMENT: MR; Exam(s) Completed: Chest: Breast SIGNATURE: RT Una(R) PATIENT NAME: Carrie Herbert DATE: July 17, 2023 TIME: 10:38 AM documented in this encounterMercy [facility]04-[facility]-2024 Nurse Note* Scarlet Bess LPN - 07/16/2023 4:30 PM EDT Pt here for injection of Zarxio. Given SQ in right arm. Pt tolerated well. Scarlet Bess LPN [facility]04-23-2024 Nurse Note* Scarlet Bess LPN - 07/16/2023 4:30 PM EDT Pt here for injection of Zarxio. Given SQ in right arm. Pt tolerated well. Scarlet Bess LPN documented in this encounterMercy [facility]04-[facility]-2024 Telephone encounter Note * Telephone Encounter - Marleen Pulliam - 07/16/2023 9:06 AM EDT Mri scheduled for tomorrow at [facility]. Marleen Lubin [facility]04-23-2024 Miscellaneous Notes* Telephone Encounter - Marleen Pulliam - 07/16/2023 9:06 AM EDT Mri scheduled for tomorrow at [facility]. Marleen Lubin * Telephone Encounter - Hellen Zhu DO - 07/15/2023 9:24 PM EDT Can let her know I spoke with mother breast cancer oncologist at [facility]. Recommendation was for interim MRI of the breast to assess response to chemo thus far. If good response we may forego theremainder of the chemotherapy in favor of surgery. Please schedule MRI breast stat. Let the radiologist know and comments that outside MRI is available in [facility]. documented in this encounterMercy [facility]04-22-2024 Telephone encounter Note * Telephone Encounter - Hellen Zhu DO - 07/15/2023 9:24 PM EDT Can let her know I spoke with mother breast cancer oncologist at [facility]. Recommendation was for interim MRI of the breast to assess response to chemo thus far. If good response we may forego theremainder of the chemotherapy in favor of surgery. Please schedule MRI breast stat. Let the radiologist know and comments that outside MRI is available in [facility]. [facility]04-22-2024 History of Present illness Narrative* Scarlet Bess LPN - 07/15/2023 12:19 PM EDT Pt here for injection of Zarxio. Given SQ in left arm. Pt tolerated well. Scarlet Bess LPN documented in this encounterMercy [facility]04-19-2024 Miscellaneous Notes* Telephone Encounter - Peg [...] application online d/t error message on the [facility] website. [facility] and assist with pt applying for disability. [facility] rep took all information from [employer] over the phone and reports [employer] will call pt on August 07 @ 2:00 PM for the next stepin the process. Pt informed of date and time. No other needs identified at this time. PLAN: Assist with financial support applications and Continue follow up as needed F/U APPOINTMENT: PRN Assigned SW listed in Care Team tab: Yes SURESH Chiu documented in this encounterMercy [facility]04-19-2024 History of Present illness Narrative* Deidra Vazquez RN - 07/12/2023 9:13 AM EDT 0926 Spoke with Kat in lab and ANC today is 4.27, informed pharmacy of results. documented in this encounterMercy [facility]04-18-2024 Nurse Note* Kathie Adame LPN - [...] Adame LPN documented in this encounterMercy Health [facility]04-17-2024 Nurse Note* Kathie Adame LPN - [...] Adame LPN documented in this encounterMercy [facility]04-16-2024 Nurse Note* Kathie Adame LPN - [...] Adame LPN documented in this encounterMercy [facility]04-15-2024 Nurse Note* Scarlet Bess LPN - 07/08/2023 8:59 AM EDT Pt here for injection of ZARXIO(filgrastim). Given sq in right arm. Pt tolerated well. Scarlet Bess LPN documented in this encounterMercy [facility]04-11-2024 Nurse Note* Kathie Adame LPN - 07/04/2023 2:15 PM EDT Zarzio injection administered, left arm,tolerated well, no immediate adverse reactions noted. See office notes Kathie Adame LPN documented in this encounterMercy [facility]04-11-2024 Nurse Note* Kathie Adame LPN - 07/04/2023 1:31 PM EDT Est. Pt, discuss recent labs, Neulasta. 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 Diagnosed with lymphocytic colitis about 3 years ago. Abdominal pain/diarrhea. Treated with probiotic and magnesium supplement. Had MRI brain and PET scan at [facility] on 04/09. MRI reported with LEFT [...] 3 of which were included within the kommp-ki-ekoq measuring up to 2.8 cm. No internal [...] keynote 522. Overall , tolerating treatment well. [place] significantly more fatigued following last cycle. [place] that first few treatments were a breeze but last one caught up with her. Energy has improved. Reviewedcyclical nature of treatment associated side effects. Pt acknowledged. Denies fevers, chills or NS.No s/s of infection. Occasional sour stomach. Reviewed antiemetics today. No V/C/D. No bleeding [...] x 4?) and radiation. 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 [...] pembrolizumab if has significant response radiographically. Kala Kaba APRN.SAMPLE BODY BUILDER I spent a total of 35 minutes on the date of the service which included preparing to see the patient, gxct-mn-ogsz patient care, completing clinical documentation, and counseling [...] this patient. documented in this encounterMercy [facility]04-10-2024 Nurse Note* Scarlet Bess LPN - 07/03/2023 4:01 PM EDT Pt here for injection of filgrastim. Given SQ in right arm. Pt tolerated well. Scarlet Bess LPN documented in this encounterMercy Health [facility]04-09-2024 History of Present illness Narrative* Scarlet Bess LPN - 07/02/2023 2:26 PM EDT Pt here for injection of neupogen. Given SQ in left arm. Pt tolerated well. Scarlet Bess LPN documented in this encounterMercy [facility]04-08-2024 Nurse Note* Kathie Adame LPN - [...] Adame LPN documented in this encounterMercy Health [facility]04-04-2024 History of Present illness Narrative* Sondra [...] Palomares RN documented in this encounterMercy Health [facility]04-04-2024 Nurse Note* Kathie Adame LPN - [...] Adame LPN documented in this encounterMercy [facility]04-03-2024 Nurse Note* Scarlet Bess LPN - 06/26/2023 11:36 AM EDT Pt here for injection of neupogen. Given sq in right arm. Pt tolerated well. Scarlet Bess LPN documented in this encounterMercy [facility]04-03-2024 Miscellaneous Notes* Telephone Encounter - Brielle [...] worse than usual, no energy, and she can't stand it. States she is anemic and is asking if there's anything else she can do to fend off the fatigue. Pt educated on proper diet, hydration, and rest. Pt also stated she has been taking 5mg Melatonin at night to help her sleep. Advised to try lower dose or stop taking altogether to monitor fatigue. Please advise. documented in this encounterMercy [facility]04-02-2024 Nurse Note* Kathie Adame LPN - [...] Adame LPN documented in this encounterMercy Health [facility]03-26-2024 Miscellaneous Notes* Telephone Encounter - Kathie Adame LPN - 06/18/2023 9:47 AM EDT Tylor Amaro from [facility] authorization for Zarxio # [id number]. Kathie Adame LPN documented in this encounterMercy Health [facility]03-25-2024 Miscellaneous Notes* Telephone Encounter - Brielle [...] a concern. documented in this encounterMercy Health [facility]03-22-2024 Miscellaneous Notes* Telephone Encounter - Keila [...] Mcbride LPN documented in this encounterMercy Health [facility]03-14-2024 Miscellaneous Notes* Telephone Encounter - Kathie [...] Mcbride LPN documented in this encounterMercy Health [facility]03-14-2024 History of Present illness Narrative* Hellen Zhu DO - 06/06/2023 9:55 AM EDT Oncologic problem(s): 1) cTx cN2a Mx ER/IL negative, HER2 negative grade 3 clinical stage [...] tissue involved by metastatic mammary carcinoma (provisional Orange grade 3). The carcinoma cells express cytokeratin AE1/AE3, GATA3, TRPS 1, and SOX10, and are negative for PAX8, TTF-1, and CDX2, supporting mammary origin. Breast biomarker studies have been requested and results will be reported separately in a linked report. 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 Diagnosed with lymphocytic colitis about 3 years ago. Abdominal pain/diarrhea. Treated with probiotic and magnesium supplement. Had MRI brain and PET scan at [facility] on 04/09. MRI reported with LEFT [...] 3 of which were included within the pecqd-ha-qbgz measuring up to 2.8 cm. No internal [...] very well with only side effect being occasional sour stomach. No GERD. No nauesa. No diarrhea. No [...] x 4?) and radiation. 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 [...] which included preparing to see the patient, pldy-od-rstk patient care, completing clinical documentation, obtaining and/or reviewing separately obtained history, performing a medically appropriate examination, counseling and educating the pat ient/family/caregiver, ordering medications, tests, or procedures, communicating with other HCPs (not separately reported), and communicating results to the patient/family/caregiver. Hellen Zhu DO documented in this encounterMercy Health [facility]03-14-2024 Nurse Note* Kathie Adame LPN - 06/06/2023 9:30 AM EDT Est. Pt, discuss recent lab results, tx tomorrow Kathie Adame LPN documented in this encounterMercy Health [facility]03-11-2024 Nurse Note* Scarlet Bess LPN - 06/03/2023 10:43 AM EDT Pt here for injection of neulasta. Given SQ in right arm. Pt tolerated well. Pt observed for signs and symptoms of adverse reaction. None noted. Scarlet Bess LPN documented in this encounterMercy Health [facility]03-11-2024 Miscellaneous Notes* Telephone Encounter - Marleen Pulliam - 06/03/2023 9:58 AM EDT Patient authorized. * Telephone Encounter - Keila Mace - 05/31/2023 12:56 PM EST Spoke with patient and scheduled. High priority email sent to Pharm Marino/Alysia Latif for authorization. Keila Mace * Telephone [...] Dr. Zhu. documented in this encounterMercy Health [facility]03-08-2024 History of Present illness Narrative* Peg Stallings RN - 05/31/2023 8:27 AM EST Patient here for tx today. ANC came back 0.76 Dr. Noland notified; he stated to hold tx. Patient will be back 06/05 for labs and OV with Dr. Zhu. documented in this encounterMercy Health [facility]03-01-2024 History of Present illness Narrative* Paulina Maher RN - 05/24/2023 9:25 AM EST Delay one week per Dr. Hellen Zhu based on ANC. 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 Diagnosed with lymphocytic colitis about 3 years ago. Abdominal pain/diarrhea. Treated with probiotic and magnesium supplement. Had MRI brain and PET scan at [facility] on 04/09. MRI reported with LEFT [...] 3 of which were included within the qbece-uv-szmt measuring up to 2.8 cm. No internal [...] therapy:Carbo/Taxol/Keytruda Began 04/25/23 No new concerns today. Appetite:Good. Some foods taste odd. Wt. down 2# Energy level:Good. Denies fevers. Mouth:denies sores/thrush Resp:denies cough or [...] - 4.00 k/uL 0.74 (L) 0.71 (L) Larue% % 8.8 8.8 Abs Larue <0.87 k/uL 0.27 0.18 Eosin% % 3.3 [...] V86.1, ICD10: C50.912, Z17.1 cTx cN2a Mx ER/IL negative, HER2 negative grade 3 clinical stage [...] and edited as necessary for today's visit. Demarcus Rodriguez APRN.SILVANA documented in this encounterMercy Health [facility]02-13-2024 NoteHNO ID: [id number] Author: FAY CARPENTER LGC Service: ? Author Type: Genetic Counselor Type: Progress Notes Filed: 05/07/2023 09:17 Note Text: [facility] Consultation Note Genetic Counselor: Fay Carpenter MS, [facility] [facility] Patient: Carrie Herbert Patient Name and confirmed at initiation of visit. This session was conducted via [employer] I have communicated my name and active licensure. The patient's identity and physical location were verified at the time of this visit. Either the patient or their legal commissary representative has been informed of the risks [...] Readings: Date: Ht: 04/15/2023 165.1 cm (5' 5) Menarche was at age 9 Postmenopausal in [...] GRANDFATHER The patient's maternal ancestors are of Wolof descent and paternal ancestors are of Frisian descent. There is no Ashkenazi Cheondoism ancestry. There is no known consanguinity. A copy of the patient's pedigree will be available under the scanned documents tab following today's visit. GENETIC COUNSELING RISK ASSESSMENT, DISCUSSION, AND SUGGESTED FOLLOW UP: We reviewed the natural history and genetic etiology of sporadic, familial and hereditary cancer syndromes. The patient's personal histo (more content not included)...[facility] 05-07-2023 Miscellaneous Notes* Addendum Note - Fay Carpenter LGC - 05/07/2023 10:48 AM ESTAddended by: FAY CARPENTER on: 05/07/2023 10:48 AM Modules accepted: Orders documented in this encounterMercy Health [facility]02-13-2024 History of Present illness Narrative* Fay Carpenter LGC - 05/07/2023 9:00 AM EST [facility] Consultation Note Genetic Counselor: Fay Carpenter MS, [facility] Patient: Carrie Herbert Patient Name and confirmed at initiation of visit. This session was conducted via [employer] I have communicated my name and active licensure. The patient's identity and physical location wereverified at the time of this visit. Either the patient or their legal commissary representative has been informed of the risks [...] Readings: Date: Ht: 04/15/2023 165.1 cm (5' 5) Menarche was at age 9 Postmenopausal in [...] GRANDFATHER The patient's maternal ancestors are of Wolof descent and paternal ancestors are of Frisian descent.There is no Ashkenazi Cheondoism ancestry. There is no known consanguinity. A [...] appropriate standard National Comprehensive Cancer Network and [employer] Cancer Society guidelines, with consideration of their [...] NTHL1, PALB2, PDGFRA, PMS2, POLD1, POLE, POT1, XBXOI1P, PTCH1, PTEN, RAD51C, RAD51D, RB1, RET, SDHA, SDHAF2, SDHB, SDHC, SDHD, SMAD4, SMARCA4, SMARCB1, SMARCE1, STK11, SUFU, SQFH863, TP53, TSC1, TSC2, and VHL The Multi-Cancer [...] to the presenting phenotype. We discussed that [employer] may contact the patient by text or email regarding billing. The patient should watch for this communication and respond promptly. The patient should contact [employer] directlywith any billing questions (ph. [phone]). Per the patient's request, we will contact her by telephone to discuss these results. A follow up genetic counseling visit will be scheduled if requested. The patient was seen for a total of 15 minutes, greater than 50% of which was spent [id number] counseling. This plan is being carried out under the oversight of Dr. Tressa Casillas. This note will also be sent to the referring provider via the electronic medical record. Fay Carpenter MS, [facility] CC: Dr. Hellen Casillas documented in this encounterMercy Health Urbana Hospital02-12-2024 Miscellaneous Notes* Telephone Encounter - Brielle Mcbride LPN - 05/06/2023 9:25 AM EST Copy of note sent to precert department. Brielle Mcbride LPN * Telephone Encounter - Keila Mace - 05/03/2023 4:42 PM EST Kyler from [facility] called re: the following authorization for carboplatin, cyclophosphamide, neulasta, palenosetron, emend, leytruda and paclitaxol. All are all approved: Auth # [id number] documented in this encounterMercy Health Urbana Hospital02-08-2024 Miscellaneous Notes* Telephone Encounter - Jael [...] of breath: No Cough: No Diarrhea: yes, small amount no episodes today, 2 episodes yesterday small. My bowels are a little bit looser than normal Constipation: no Bladder/Urinary Changes: None Pain: No=0 (pain 0 on a scale of 0-10). Fever: No Chills: No Cold sensitivity: No Numbness/weakness: No Edema: No Skin changes: No Itching: No Yellowing of skin or eyes: No Musculoskeletal/joint changes/issues No Bleeding issues: No Activity Level: very good Do you need to take naps? No [...] Gunter RN documented in this encounterMercy Health Urbana Hospital02-02-2024 Miscellaneous Notes* Telephone Encounter - Jael [...] Gunter RN documented in this encounterMercy Health Urbana Hospital01-29-2024 Discharge summary Author Arben Mccann [facility] April 22, 2023 2:01pm Note Date/Time April 22, 2023 2 :01pm [facility] Medical Records Department [address] [place] [address] Instructions for Home/Discharge Instructions 04/22/23 1359 MR#: [id number] Acct: [id number] Name: Everette HERBERT Rep #:[id number] : 1960 62 From: Arben mitchell MD [...] With: Arben Mccann MD When: as needed [phone] Test Results: Test results from this visit [...] CC: Dr. Hellen Lafleur MD ~ Signed [facility] Work Phone: 1(599) 792-161101-29-2024 History and physical note Author [facility] April 22, 2023 12:07pm Note Date/Time April 22, 2023 1 2:07pm [facility] Medical Records Department [address] [place] [address] History & Physical Exam 04/22/23 1205 MR#: [id number] Acct: [id number] Name: Everette HERBERT Rep #:[id number] : 1960 62 From: Arben mitchell MD PCP: Dr. Hellen Lafleur MD Status:REG S DC Location: [place] [address] History and Physical Date of Admission: 04/22/23 [...] PO DAILY anxiety 11/03/19 [History Confirmed 04/17/23] [id number]-rptpxuuh-idwgeew 12,000-38,000-60,000 unit capsule,delayed rel 1 cap PO [...] mg PO DAILY 04/17/23 [History Confirmed 04/17/23] [facility] Medical History (Updated 04/17/23 @ 08:21 by [...] having neoadjuvant chemotherapy and then return to [facility] for surgery. ROS General General: Yes breast [...] willing to proceed. Arben Mccann MD Pager: [facility] [address] [place] [address], [address] [place] [address] Office: I have examined the patient and the H&P has been reviewed. There are no clinicalchanges since date of exam. 04/22/23 1207 <Electronically signed by Arben Mccann MD> Cosigner Signature (if applicable): CC: Dr. Arben Mccann MD; Dr. Hellen Lafleur MD~ Signed [facility] Work Phone: 1(509) 574-745501-29-2024 Procedure [facility] 04-15-2023 Telephone encounter Note* Telephone Encounter - Marleen Pulliam - 04/15/2023 10:05 AM EST Patient stopped down at our desk in [place]. She asked we call [facility] and see when they could get her scheduled. They can place her port on Saturday04/22/2023 which is before her chemo start. She decided to go with [facility] so that it was set in stone this way. Thank you, Marleen [facility]01-22-2024 Miscellaneous Notes* Telephone Encounter - Marleen Pulliam - 04/15/2023 10:05 AM EST Patient stopped down at our desk in [place]. She asked we call [facility] and see when they could get her scheduled. They can place her port on Saturday04/22/2023 which is before her chemo start. She decided to go with [facility] so that it was set in stone this way. Thank you, Marleen * Telephone Encounter - Madison Cooper - 04/15/2023 10:03 AM EST 04/19/2023 PORT PLACEMENT [place] Patient has out of network insurance for [place]. Will work on clearance prior to scheduled date. Ifunable to authorize patient wishes to be done at [facility] Madison Cooper Customer Program Manager documented in this encounterMercy Health Urbana Hospital01-22-2024 Telephone encounter Note * Telephone Encounter - Madison Cooper - 04/15/2023 10:03 AM EST 04/19/2023 PORT PLACEMENT [place] Patient has out of network insurance for [place]. Will work on clearance prior to scheduled date. Ifunable to authorize patient wishes to be done at [facility] Madison Cooper Customer Program Manager [facility]01-18-2024 History of Present illness Narrative* Keila [...] female who [facility] at the request of [...] lymph node tissue, Grade 3, ER negative, IL negative, HER2 non-amplified. Ms Herbert consulted with [...] Breast in Female, Estrogen Receptor Negative (Hcc) ([facility]) - 04/12/2023 Metastatic Cancer to Axillary Lymph Nodes ([facility]) - 04/12/2023 Rectal Bleeding Unspecified Constipation [...] performed at that time. MRI performed at [facility]. I reviewed the MRI today in the [...] - Metastatic carcinoma in lymph node tissue, ER/IL-, HER2 - - Microcalcifications are present. Breast Biomarkers RESULTS: Estrogen Receptor (ER) Negative <1% Progesterone Receptor (IL) Negative <1% HER2 (ERBB2) IMMUNOHISTOCHEMISTRY ASSAY Interpretation: [...] breast axillary bx LN positive breast cancer ER-IL-HER2- MRI identied a LEFT breast suspicious 1.4 [...] and subpectoral described)Mx - PET scan pending ER-IL-HER2- RIGHT hx of lumpectomy, MRI demonstrates a [...] will need to get her imaging at [facility] - orders placed. Needs to check with insurance to see if I am a surgeon in her network Future Appointments Date Time Provider Department Center 04/15/2023 8:50 AM ECHOCARDIOGRAM WSTR CARDWS [place] 04/15/2023 9:45 AM Vale Carpenter MD GENSWS [place] 04/15/2023 10:20 AM PFA SOCIAL SCIENCES DEPARTMENT CHAIR 2 PFCPS None 04/16/2023 10:30 AM Wstr, Waste Chopper [facility] HEMAWS [place] 04/17/2023 11:30 AM DIAGNOSTIC MAMMO [facility] WSTR RDXWS [place] 04/17/2023 1:00 PM US [facility] WSTR MOB 1 RUSWS [place] All questions were answered and the patient had no further concerns at this time Ms. Herbert was given our contact information if she has any further questions or concerns. Keila Christina DO Breast Surgeon Cc: Dr. Ayaan Davis documented in this encounterMercy Health Urbana Hospital01-18-2024 Nurse Note* Flor Cottrell LPN - [...] work: No Is the patient active on [employer] No Electronically Signed By: Flor Cottrell LPN [...] use: No documented in this encounterMercy Health Urbana Hospital12-19-2023 History of Present illness Narrative* Vale Carpenter MD - 03/12/2023 10:13 AM EST Carrie Herbert 1960 REFERRING PHYSICIAN: Ken Zarco MD CHIEF [...] with larges 3.5 x 3.2 cm from [facility] Bilateral mammograms 3D normal 10/08/2022 PAST [...] entered by the nurse and reviewed by ar Nursing Notes: Kenn Hartman LPN 03/12/2023 10:02 [...] When was patient's last Mammogram screening? 2022 [facility] Last Colonoscopy: 01/2020 Kenn Hartman LPN PHYSICAL EXAMINATION: General: The patient is 62 year old female, well nourished, well hydrated in no acute distress. Thepatient is oriented to time, place, and person. VITALS: Blood pressure 108/60, pulse 68, temperature 36.2 C (97.2 F), height 163.8 cm (5' 4.5), weight 56.4 kg (124 lb 6.4 oz), [...] Carpenter MD documented in this encounterMercy Health Urbana Hospital12-19-2023 Nurse Note* Kenn HartmanKATHY - 03/12/2023 9:57 AM EST REVIEW OF [...] When was patient's last Mammogram screening? 2022 [facility] Last Colonoscopy: 01/2020 Kenn Hartman LPN documented in this encounterMercy Health Urbana Hospital03-28-2023 History of Present illness Narrative* Martha Darby MD - 06/19/2022 8:54 AM EDT HISTORY AND PHYSICAL Carriejaney Hensley Piedad 1960 REFERRING PHYSICIAN: Martha Darby MD [...] C (97.1 F), height 165.1 cm (5' 5), weight 55.6 kg (122 lb 9.6 oz), [...] III, MD documented in this encounterMercy Health Urbana Hospital03-22-2023 Miscellaneous Notes* Telephone Encounter - Marcie [...] and flu documented in this encounterMercy Health Urbana Hospital03-21-2023 History of Present illness Narrative* Kaern Vasquez APRN.SAMPLE BODY BUILDER - 06/12/2022 9:47 AM EDT Subjective HPI [...] Vasquez APRN.CNP documented in this encounterMercy Health Urbana Hospital03-21-2023 Instructions* Patient Instructions* Karen Vasquez APRN.CNP [...] Vasquez APRN.CNP documented in this encounterMercy Health Urbana Hospital11-25-2022 Miscellaneous Notes* Telephone Encounter - Bernadette Galan - 02/16/2022 12:06 PM EST Patient chose to cancel EGD since symptoms have improved. Both procedure and follow up appointment with Marcie Schaefer have been cancelled. documented in this encounterMercy Health Urbana Hospital11-11-2022 Nurse Note* Julee Chamorro RN - [...] Chamorro RN documented in this encounterMercy Health Urbana Hospital11-11-2022 History of Present illness Narrative* Martha Darby MD - 02/02/2022 9:32 AM EST HISTORY AND PHYSICAL Carrie Herbert 1960 REFERRING PHYSICIAN: Ken Zarco MD CHIEF [...] C (97.8 F), height 166.4 cm (5' 5.5), weight 57.1 kg (125 lb 12.8 oz), [...] III, MD documented in this encounterMercy Health Urbana Hospital07-18-2022 History of Present illness Narrative* Martha [...] appropriate PPE (Personal Protective Equipment). Special equipment: Ampere Max-Core disposable core biopsy instrument 14g, Ultra [...] Chamorro RN documented in this encounterMercy Health Urbana Hospital07-18-2022 History of Present illness Narrative* Soheila Miranda Mammo Tech - 10/09/2021 2:50 PM EDT Radiology Service [...] PERIPHERAL IV DATA: Not applicable SIGNED BY: Soheila Miranda Seisquareo Rene October 09, 2021 2:19 PM documented in this encounterMercy Health Urbana Hospital07-18-2022 Instructions* Patient Instructions* Julee Chamorro RN - 10/09/2021 1:51 PM EDT The following instructions are important for you related to your office visit today with the [facility] General Surgeons. Instructions After OFFICE BASED BREAST [...] you should contact our office immediately @ [phone] and ask to be transferred to the General Surgery department. documented in this encounterMercy Health Urbana Hospital06-28-2022 Miscellaneous Notes* Telephone Encounter - Thelma Garces - 09/19/2021 8:26 AM EDT Patient given results and verbalized understanding of instructions given. Thelma Garces * Telephone Encounter - Sumit Garza APRN.CNP [...] care provider or schedule a visit with [facility]. A test is not recommended to return to work/school when meeting the above criteria. documented in this encounterMercy Health Urbana Hospital06-27-2022 History of Present illness Narrative* Joseph [...] ABDL/VAG APPR UNI/BI 1991 LUMPECTOMY/RADIOTHERAPY DIAG MAMM/A10 1992 RIGHT PAST SURGICAL [...] Wt 55.3 kg (122 lb) LMP 12/30/2007 UiT349% BMI 19.99 kg/m PHYSICAL EXAM: GEN: pleasant, [...] CORONAVIRUS - ONDANSETRON 4 MG DISINTEGRATING TABLET Josehp Vann MD documented in this encounterMercy Health Urbana HospitalEvaluation + Plan note Future Appointments Appointment Date:10/02/2023 05:00:00 AM Scheduled Provider: Location:XRAY Appointment Type:NM Injection [place] Node Appointment Date:10/02/2023 08:00:00 AM Scheduled Provider: Location:XRAY Appointment Type:NM Injection [place] Node Appointment Date:10/10/2023 03:30:00 PM Scheduled Provider:DEBBIE MERINO MD Location:[facility] Appointment Type:BS OV Post Op Future Scheduled Tests Radiology* MA Biopsy OR 09/12/23 * NM Injection [place] Node 10/02/23 * NM Injection [place] Node 10/02/23 [facility] Evaluation + Plan note Future Appointments Appointment Date:10/10/2023 03:30:00 PM Scheduled Provider:DEBBIE MERINO MD Location:[facility] Appointment Type:BS OV Post Op Future Scheduled Tests Radiology* MA Biopsy OR 09/12/23 * NM Injection [place] Node 10/02/23 [facility] Evaluation + Plan note Future Appointments Appointment Date:04/16/2024 03:40:00 PM Scheduled Provider:DEBBIE MERINO MD Location:[facility] Appointment Type:BS OV Follow Up Future Scheduled Tests Radiology* MA Biopsy OR 09/12/23 * US Breast Right Limited 04/11/24 * NM Injection [place] Node 10/02/23 [facility] Evaluation + Plan note Future Appointments Appointment Date:11/05/2024 10:30:00 AM Scheduled Provider: Location:[facility] Appointment Type:MA Mammogram Diagnostic Bilateral w/ Jared Appointment Date:11/05/2024 11:00:00 AM Scheduled Provider: Location:[facility] Appointment Type:US Breast Right Limited Appointment Date:11/05/2024 11:30:00 AM Scheduled Provider:DEBBIE MERINO MD Location:[facility] Appointment Type:BS OV Follow Up w/ Imaging Future Scheduled Tests Radiology* MA Mammo Diagnostic Bilateral w/Geo 11/05/24 * US Breast Right Limited 11/05/24 [facility] evaluation + Plan note Future Appointments Appointment Date:08/26/2024 02:00:00 PM Scheduled Provider: Location:[facility] Appointment Type:US Biopsy Breast Right 1st Lesion Future Scheduled Tests Radiology* US Biopsy Breast Right 1st Lesion 08/26/24 [facility] evaluation note* Diagnosis Acute viral syndrome- Primary Unspecified viral infection, in conditions classified elsewhere and of unspecified site Nausea Nausea alone documented in this encounter [facility] noteNo assessment information availableWProMedica Flower Hospital Work Phone: evaluation note* Diagnosis Abnormal mammogram- Primary Abnormal mammogram, unspecified documented in this encounter [facility] note* Diagnosis Abnormal mammogram Abnormal mammogram, unspecified documented in this encounter [facility] note* Diagnosis Gastroesophageal reflux disease, unspecified whether esophagitis present- Primary Epigastric pain Abdominal pain, epigastric documented in this encounter [facility] note* Diagnosis Flu-like symptoms- Primary Other general symptoms Nausea Nausea alone documented in this encounter [facility] note* Diagnosis Epigastric pain- Primary Abdominal pain, epigastric Diarrhea, unspecified type documented in this encounter [facility] note* Diagnosis Lymphadenopathy, axillary- Primary Enlargement of lymph nodes documented in this encounter [facility] note* Diagnosis Lymphadenopathy, axillary- Primary Enlargement of lymph nodes Malignant neoplasm of female breast, unspecified estrogen receptor status, unspecified laterality, unspecified site of breast (HCC) documented in this encounter [facility] note* Diagnosis Breast cancer metastasized to [...] examination of breast documented in this encounter [facility] note* Diagnosis Onset Date Resolution Status Encounter for insertion of venous access port [facility] Work Phone: evaluation note* Diagnosis Malignant neoplasm of left breast in female, estrogen receptor negative, unspecified site of breast (HCC) (HCC)- Primary Breast cancer 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, left (HCC) Malaise and fatigue Other malaise and fatigue 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) Secondary and unspecified malignant neoplasm of lymph nodes of axilla and upper limb documented in this encounter [facility] HospitalEvaluation [facility]* Diagnosis Malignant neoplasm of left breast in female, estrogen receptor negative, unspecified site of breast (HCC) (HCC)- Primary Breast cancer metastasized to axillary lymph node, left (HCC) Malaise and fatigue Other malaise and fatigue 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) Secondary and unspecified malignant neoplasm of lymph nodes of axilla and upper limb documented in this encounter [facility] HospitalEvalunemours foundation note* Diagnosis Malignant neoplasm of left breast in female, estrogen receptor negative, unspecified site of breast (HCC) (HCC)- Primary 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) Secondary and unspecified malignant neoplasm of lymph nodes of axilla and upper limb History of right breast cancer [facility]* Diagnosis Malignant neoplasm of left breast [...] right breast cancer [facility]* Diagnosis Malignant neoplasm of left breast in female, estrogen receptor negative, unspecified site of breast (HCC) (HCC) Breast cancer metastasized to axillary lymph node, left (HCC) Malaise and fatigue Other malaise and fatigue [facility]* Diagnosis Malignant neoplasm of left breast in female, estrogen receptor negative, unspecified site of breast (HCC)- Primary [facility]* Diagnosis Malignant neoplasm of left breast in female, estrogen receptor negative, unspecified site of breast (HCC)- Primary 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) Secondary and unspecified malignant neoplasm of lymph nodes of axilla and upper limb documented [facility] this encounter [facility]* Diagnosis Metastatic cancer to axillary lymph [...] and fatigue [facility]* Diagnosis Breast cancer metastasized to axillary lymph node, left (HCC)- Primary Triple negative breast cancer (HCC) documented [facility] encounter [facility]* Diagnosis Malignant neoplasm of left breast in female, estrogen receptor negative, unspecified site of breast (HCC) Breast cancer metastasized to axillary lymph node, left (HCC) Malaise and fatigue Other malaise and fatigue documented [facility] encounter [facility]* Diagnosis Malignant neoplasm of left breast [...] breast cancer (HCC) documented [facility] encounter [facility]* Diagnosis Malignant neoplasm of left breast in female, estrogen receptor negative, unspecified site of breast (HCC)- Primary Breast cancer metastasized to axillary lymph node, left (HCC) Malaise and fatigue Other malaise and fatigue Triple negative breast cancer (HCC) documented [facility] encounter [facility]* Diagnosis Pulsatile tinnitus- Primary Unspecified tinnitus documented [facility] this encounter [facility]* Diagnosis Breast cancer metastasized to axillary lymph node, left (HCC)- Primary Triple negative breast cancer (HCC) Malignant neoplasm of overlapping sites of left breast in female, estrogen receptor negative (HCC) documented in this encounter [facility]* Diagnosis Breast cancer metastasized to axillary [...] influencing health status [facility]* Diagnosis Malignant neoplasm of overlapping sites of left breast in female, estrogen receptor negative (HCC)- Primary Malignant neoplasm of left breast in female, estrogen receptor negative, unspecified site of breast (HCC) Breast cancer 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 lymph node, left (HCC) Malaise and fatigue Other malaise and fatigue [facility]* Diagnosis Malignant neoplasm of left breast in female, estrogen receptor negative, unspecified site of breast (HCC)- Primary 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) Secondary and unspecified malignant neoplasm of lymph nodes of axilla and upper limb documented in this encounter [facility]* Diagnosis Malignant neoplasm of left breast in female, estrogen receptor negative, unspecified site of breast (HCC)- Primary 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) Secondary and unspecified malignant neoplasm of lymph nodes of axilla and upper limb [facility]* Diagnosis Malignant neoplasm of left [...] negative (HCC)- Primary [facility]* Diagnosis Malignant neoplasm of upper-outer quadrant of left breast in female, estrogen receptor negative (HCC)- Primary documented [facility] encounter [facility]* Diagnosis Malignant neoplasm of upper-outer quadrant [...] malaise and fatigue [facility] Malignant neoplasm of left breast in female, estrogen receptor negative, unspecified site of breast (HCC)- Primary Triple negative breast cancer (HCC) Drug rash Dermatitis due to drugs and medicines taken internally [facility] Malignant neoplasm of upper-outer quadrant of left breast in female, estrogen receptor negative (HCC)- Primary [facility] Diagnosis Malignant neoplasm of left breast in female, estrogen receptor negative, unspecified site of breast (HCC)- Primary 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) Secondary and unspecified malignant neoplasm of lymph nodes of axilla and upper limb [facility] Diagnosis Malignant neoplasm of upper-outer quadrant [...] and fatigue [facility] Diagnosis Malignant neoplasm of left breast in female, estrogen receptor negative, unspecified site of breast (HCC) Breast cancer metastasized to axillary lymph node, left (HCC) Malaise and fatigue Other malaise and fatigue [facility] Malignant neoplasm of left [...] [facility] Diagnosis Radiotherapy follow-up- Primary Radiotherapy follow-up [...] Cramp of limb [facility] negative (HCC) [facility] Diagnosis Encounter for follow-up surveillance of breast cancer- Primary Unspecified follow-up examination [facility] H/O bilateral breast implants- Primary [...] of breast (HCC) [facility] No data available for this section [facility] Hospital Discharge instructions No data available for this section [facility] Hospital Discharge instructionsAdditional Instructions Tylenol and Motrin as needed for pain fever. [id number] medication as needed for symptoms. Suspect viral illness. Follow-up with oncology. Call the office tomorrow to make an appointment. Return back to ED symptoms change or worsen.[facility] Work Phone: Progress note No data available for this section [facility] Reason for referral (narrative)* Diagnostic Procedure Only (Routine) - Closed Specialty Diagnoses / Procedures Referred By Contac t Referred To Contact [facility] IMAGING Diagnoses Abnormal mammogram Procedures RADHA DIAGNOSTIC RT DIAGNOSTIC MAMMOGRAPHY COMPUTER-AIDED DETCJ Martha Giordano MD [address] [place] [address] [facility] [address] [place] [address] Referral ID Status Reason Start Date Expiration Date V isits Requested Visits Authorized [id number] Closed Auto-Generate d Referral OON/Self Pay Override 10/09/2021 11/08/2022 1 1 [facility] for referral (narrative)* Diagnostic Procedure Only (Routine) - Closed Specialty Diagnoses / Procedures Referred By Contac t Referred To Contact BR IMAGING Diagnoses Abnormal mammogram Procedures RADHA DIAGNOSTIC RT DIAGNOSTIC MAMMOGRAPHY COMPUTER-AIDED DETCJ Martha Giordano MD [address] [place] [address] [facility] [address] [place] [address] Referral ID Status Reason Start Date Expiration Date V isits Requested Visits Authorized [id number] Closed Auto-Generate d Referral OON/Self Pay Override 10/09/2021 11/08/2022 1 1 [facility] for referral (narrative)* Outpatient Procedure (Routine) - Authorized Specialty Diagnoses / Procedures [facility] Diagnoses Gastroesophageal reflux disease, unspecified whether esophagitis present Epigastric pain Procedures EGD DIAGNOSTIC ESOPHAGOGASTRODUODENOSC OPY TRANSORAL DIAGNOSTIC Martha Darby MD [address] [place] [address] [facility] [address] [place] [address] Referral ID Status Reason Start Date Expiration Date Visits Requested Visits Authorized [id number] Authorized Auto-Generat ed Referral OON/Self Pay Override 2 02/02/2023 1 1 [facility] for referral (narrative)* Diagnostic Procedure Only (Routine) - Authorized Specialty Diagnoses / Procedures Referred By [facility] Referred To Contact BR IMAGING Diagnoses 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) Malignant neoplasm of left breast in female, estrogen receptor negative, unspecified site of breast (HCC) (HCC) Breast cancer metastasized to axillary lymph node, left (HCC) Triple negative breast cancer (HCC) History of right breast cancer Abnormal MRI, breast Procedures RADHA DIAGNOSTIC BILATERAL DIAGNOSTIC MAMMOGRAPHY COMPUTER-[place] [address] [place] [address] [facility] Imaging [address] [place] [address] Referral ID Status Reason Start Date Expiration Date Visits Requested Visits Authorized [id number] Authorized Auto-Generat ed Referral 04/11/2023 05/10/2024 1 1 * Diagnostic Procedure Only (Routine) - Authorized Specialty Diagnoses / Procedures [facility] Referred To Contact [facility] Diagnoses Malignant neoplasm of left breast in female, estrogen receptor negative, unspecified site of breast (HCC) (HCC) Breast cancer metastasized to axillary lymph node, left (HCC) Abnormal MRI, breast Procedures US BREAST LTD LEFT US BREAST UNI REAL [place] [address] [place] [address] [facility] [address] [place] [address] Referral ID Status Reason Start Date Expiration Date Visits Requested Visits Authorized [id number] Authorized Auto-Generat ed Referral 04/11/2023 05/10/2024 1 1 * Diagnostic Procedure Only (Routine) - Authorized Specialty Diagnoses / Procedures Referred By Dary swenson Referred To Contact BR IMAGING Diagnoses History of right breast cancer Abnormal MRI, breast Procedures US BREAST LTD RIGHT US BREAST UNI REAL [place] [address] [place] [id number] [facility] [address] [place] [id number] Referral ID Status Reason Start Date Expiration Date Visits Requested Visits Authorized [id number] Authorized Auto-Generat ed Referral 04/11/2023 05/10/2024 1 1 [facility] for referral (narrative)* Outpatient Procedure (Routine) - Pending Review Specialty Diagnoses / Procedures Referred By Dary swenson Referred To Contact [facility] Diagnoses Pulsatile tinnitus Procedures US CAROTID ARTERIES [facility] DUPLEX SCAN EXTRACRANIAL ART COMPL BI STUDY Hellen Zhu DO [address] [place] [address] [facility] [address] [place] [address] Referral ID Status Reason Start Date Expiration Date Visits Requested Visits Authorized [id number] Pending Review Auto-Generat ed Referral 06/17/2023 06/16/2024 1 1 [facility] for referral (narrative)* Outpatient Procedure (Routine) - Authorized Specialty Diagnoses / Procedures Referred By Contac t Referred To Contact [facility] Diagnoses Malignant neoplasm of left breast in female, estrogen receptor negative, unspecified site of breast (HCC) Breast cancer metastasized to axillary lymph node, left (HCC) Encounter for monitoring cardiotoxic drug therapy Procedures ECHO ECHO TTHRC R-T 2D W/WOM-MODE COMPL SPEC&COLR D Hellen Zhu, DO [address] [place] [address] [facility] [address] [place] [address] Referral ID Status Reason Start Date Expiration Date Visits Requested Visits Authorized [id number] Authorized Auto-Generat ed Referral 07/18/2023 07/17/2024 3 1 [facility] for referral (narrative)* Outpatient Procedure (Urgent) - Pending Review Specialty Diagnoses / Procedures Referred By Contac t Referred To Contact [facility] Diagnoses Malignant neoplasm of overlapping sites of left breast in female, estrogen receptor negative (HCC) Breast cancer metastasized to axillary lymph node, left (HCC) Palpitations Encounter for monitoring cardiotoxic drug therapy Muscle weakness Procedures ECHO ECHO TTHRC R-T 2D W/WOM-MODE COMPL SPEC&COLR D Hellen Zhu, DO [address] [place] [address] [facility] [address] [place] [address] Referral ID Status Reason Start Date Expiration Date Visits Requested Visits Authorized [id number] Pending Review Auto-Generat ed Referral 07/22/2023 07/21/2024 1 1 * Outpatient Procedure (Routine) - Pending Review Specialty Diagnoses / Procedures Referred By Contac t Referred To Contact [facility] Diagnoses Malignant neoplasm of overlapping sites of left breast in female, estrogen receptor negative (HCC) Breast cancer metastasized to axillary lymph node, left (HCC) Palpitations Encounter for monitoring cardiotoxic drug therapy Muscle weakness Procedures ECG COMPLETE ECG ROUTINE ECG W/LEAST 12 LDS W/I&R Hellen Zhu DO [address] [place] [address] [facility] [address] [place] [address] Referral ID Status Reason Start Date Expiration Date Visits Requested Visits Authorized [id number] Pending Review Auto-Generat ed Referral 07/22/2023 07/21/2024 1 1 [facility] for referral (narrative)* Diagnostic Procedure Only (Routine) - Authorized Specialty Diagnoses / Procedures Referred By Dary swenson Referred To Contact [facility] Diagnoses Malignant neoplasm of left breast in female, estrogen receptor negative, unspecified site of breast (HCC) Procedures US BREAST LTD LEFT US BREAST UNI REAL [place] [address] [place] [address] [facility] [address] [place] [address] Referral ID Status Reason Start Date Expiration Date Visits Requested Visits Authorized [id number] Authorized OON/Self Pay Override Financial Clearance Required - OON Payor 07/25/2023 08/23/2024 1 1 * Diagnostic Procedure Only (Routine) - Authorized Specialty Diagnoses / Procedures Referred By Dary swenson Referred To Contact [facility] Diagnoses Malignant neoplasm of left breast in female, estrogen receptor negative, unspecified site of breast (HCC) Procedures RADHA DIAGNOSTIC RIGHT DIAGNOSTIC MAMMOGRAPHY COMPUTER-AIDED [place] [address] [place] [address] Radio Mammo [facility] [address] [place] [address] Referral ID Status Reason Start Date Expiration Date Visits Requested Visits Authorized [id number] Authorized OON/Self Pay Override Financial Clearance Required - OON Payor 07/25/2023 08/23/2024 1 1 [facility] for referral (narrative)* Diagnostic Procedure Only (Routine) - Pending Review Specialty Diagnoses / Procedures Referred By Contac t Referred To Contact [facility]LECULAR & FUNCTIONAL IMAGING Diagnoses Malignant neoplasm of overlapping sites of left breast in female, estrogen receptor negative (HCC) Breast cancer metastasized to axillary lymph node, left (HCC) Triple negative breast cancer (HCC) Procedures NM PET/CT SKULL-THIGH SUBSEQUENT PET IMAGING CT ATTENUATION SKULL BASE MID-THIGH Hellen Zhu DO [address] [place] [address] Molecular & Functional Imaging [address] [place] [address] Referral ID Status Reason Start Date Expiration Date Visits Requested Visits Authorized [id number] Pending Review Auto-Generat ed Referral 08/22/2023 09/20/2024 1 1 [facility] for referral (narrative)No reason for referral information [facility] Work Phone: Reason for visit Narrative* Diagnostic Procedure Only (Routine) - Closed Specialty Diagnoses / Procedures Referred By Contac t Referred To Contact BR IMAGING Diagnoses Abnormal mammogram Procedures RADHA DIAGNOSTIC RT DIAGNOSTIC MAMMOGRAPHY COMPUTER-AIDED DETCJ [facility] Martha Darby MD [address] [place] [address] Br Imaging [address] [place] [address] Referral ID Status Reason Start Date Expiration Date V isits Requested Visits Authorized [id number] Closed Auto-Generate d Referral OON/Self Pay Override 10/09/2021 11/08/2022 1 1 [facility] for visit Narrative* Diagnostic Procedure Only (Routine) - Closed Specialty Diagnoses / Procedures Referred By Contac t Referred To Contact [facility] Diagnoses Malignant neoplasm of left breast in female, estrogen receptor negative, unspecified site of breast (HCC) Procedures RADHA DIAGNOSTIC RIGHT DIAGNOSTIC MAMMOGRAPHY COMPUTER-AIDED [place] [address] [place] [address] Radio Mammo [facility] [address] [place] [address] Referral ID Status Reason Start Date Expiration Date V isits Requested Visits Authorized [id number] Closed OON/Self Pay Override Financial Clearance Required - OON Payor 07/25/2023 08/23/2024 1 1 [facility] for visit Narrative* MRI/CT (Routine) - Closed Specialty Diagnoses / Procedures Referred By Dary t Referred To Contact CT IMAGING Diagnoses Breast cancer metastasized to axillary lymph node, left (HCC) Malignant neoplasm of overlapping sites of left breast in female, estrogen receptor negative (HCC) Procedures CT ABD/PEL W IVCON CT ABD & PELVIS W/CONTRAST Hellen Zhu DO [address] [place] [address] Phone: tel: fax: [place] [address] Referral ID Status Reason Start Date Expiration Date V isits Requested Visits Authorized [id number] Closed Auto-Generate d Referral 05/20/2024 06/19/2025 1 1 [facility] for visit Narrative* MRI/CT (Urgent) - Closed Specialty Diagnoses / Procedures Referred By Dary t Referred To Contact MR IMAGING Diagnoses Malignant neoplasm of overlapping sites of left breast in female, estrogen receptor negative (HCC) Triple negative breast cancer (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) Procedures MRI BRAIN WO/W IVCON MRI BRAIN BRAIN STEM W/O W/CONTRAST MATERIAL Hellen Zhu DO [address] [place] [address] Phone: tel: fax: [place] [address] Referral ID Status Reason Start Date Expiration Date V isits Requested Visits Authorized [id number] Closed Auto-Generate d Referral 07/25/2024 08/24/2025 1 1 [facility] for visit Narrative* Johnston Prior Authorization (Routine) - Authorized Specialty Diagnoses / Procedures Referred By Contac t Referred To Contact Diagnoses Malignant neoplasm of left breast in female, estrogen receptor negative, unspecified site of breast (HCC) 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) Hellen Zhu, DO [address] [place] [address] Phone: tel: fax: Hellen Zhu, DO [address] [place] [address] Phone: tel: fax: Referral ID Status Reason Start Date Expiration Date V isits Requested Visits Authorized [id number] Authorized 07/30/2024 10/28/2024 99 99 [facility] for visit Narrative* MRI/CT (Urgent) - Closed [...] THORAX W/CONTRAST Hellen Zhu, DO [address] [place] [address] Phone: tel: fax: [place] [address] Referral ID Status Reason Start Date Expiration Date V isits Requested Visits Authorized [id number] Closed Auto-Generate d Referral 09/22/2024 10/22/2025 1 1 [facility] for visit Narrative* MRI/CT (Routine) - Closed Specialty Diagnoses / Procedures Referred By Contac t Referred To Contact MR IMAGING Diagnoses Brachial plexus disorders Procedures MRI BRACHIAL PLEXUS WO/W IVCON LEFT MRI CHEST W/O & W/[place] [address] [place] [address] Phone: tel: fax: [place] [address] Referral ID Status Reason Start Date Expiration Date V isits Requested Visits Authorized [id number] Closed Auto-Generate d Referral 10/07/2024 11/05/2025 1 1 [facility] for visit Narrative* [place] Prior Authorization (Routine) - Authorized Specialty Diagnoses / Procedures Referred By Contvipin t Referred To Contact Diagnoses 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, left (HCC) Triple negative breast cancer (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) Hellen Zhu, [address] [place] [address] Phone: tel: fax: Hematology/Oncology [address] [place] [address] Phone: tel: fax: Referral ID Status Reason Start Date Expiration Date V isits Requested Visits Authorized [id number] Authorized 10/08/2024 01/06/2025 99 99 [facility] Summary Purpose Family History No Family History Records Found Relationship Condition Age at Onset Recorded Date/T lucien grandfather Diabetes mellitus Unknown Relationship Condition Age at Onset Recorded Date/T lucien grandfather Diabetes mellitus Unknown grandmother Hypertension Unknown Cerebrovascular accident (CVA) Unknown Advance Directives No Advanced Directives Records FoundDocuments on File Type Date Recorded 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 Vice President Process Expl anation Advance Directive(s) 07/21/2015 7:49 AM Advance Directive(s) 06/06/2015 3:22 PM Advance Directive Response Recorded Date/ Time Living Will Yes January 24 12:05pm Power of Motor Runner Yes January 25, 2020 12:05pm Documents on File Type Date Recorded Patient Vice President Process Expl anation Advance Directive(s) 07/21/2015 7:49 AM Advance Directive(s) 06/06/2015 3:22 PM Advance Directive Response Recorded Date/ Time Living Will Yes January 24 11:05am Power of Motor Runner Yes January 25, 2020 11:05am Advance Directive Response Recorded Date/ Time Name of Medical Power of Motor Runner April 18, 2023 3:03pm Living Will Yes April 18 3:03pm Power of Motor Runner Yes April 18, 2023 3:03pm Advance Directive Response Recorded Date/ Time Do you have a Healthcare Power of Motor Runner? Yes January 10, 2025 3:13pm Health Concerns Infection Onset Date Last Indicated [...] plexus disorders November 19, 2 025 9:17am Chief Complaint Admit Date NUMBNESS AND TINGLING HAND October 13 1:42pm NUMBNESS AND TINGLING HAND October 13 3:16pm Brachial plexus disorders November 19, 2 025 9:17am neutropenic fever January 10, 2025 3 :12pm BREAST January 12, 2025 7 :22am Reason for Referral Specialty Diagnoses / Procedures Referred By Dary t Referred To Contact MR IMAGING Diagnoses Malignant neoplasm of overlapping sites of left breast in female, estrogen receptor negative (HCC) 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) Procedures MRI BREAST WO/W IVCON BILATERAL MRI BREAST WITHOUT&WITH CONTRAST W/CAD BILATERAL Hellen Zhu DO [address] [place] [address] [place] [id number] Referral ID Status Reason Start Date Expiration Date Visits Requested Visits Authorized [id number] Authorized Auto-Generat ed Referral Patient Cleared - Admin/Chairm an/Director advise to proceed or did not respond 07/16/2023 08/14/2023 1 1 Specialty Diagnoses / Procedures [facility] Referred To Contact Pl[facility] Surgery Diagnoses Breast cancer metastasized to axillary lymph node, left (HCC) History of right breast cancer H/O bilateral breast implants Procedures CONSULT TO PLASTIC SURGERY OFFICE/OUTPATIENT [facility] [address] [place] [address] [place] [address] Referral ID Status Reason Start Date Expiration Date Visits Requested Visits Authorized [id number] Pending Review PCP Requested Referral 08/25/2023 08/24/2024 1 1 Specialty Diagnoses / Procedures Referred By Contac t Referred To Contact Diagnoses Malignant neoplasm of upper-outer quadrant of left breast in female, estrogen receptor negative (HCC) Procedures CT SIM PLANNING RADIATION ONCOLOGY THER RAD SIMULAJ-AIDED FIELD SETTING COMPLEX Melony Davis MD [address] [place] [address] Referral ID Status Reason Start Date Expiration Date Visits Requested Visits Authorized [id number] New Request PCP Requested Referral 10/30/2023 01/27/2024 [...] DIAGNOSTIC COMPUTED TOMOGRAPHY THORAX W/CONTRAST Hellen Zhu, [address] [place] [address] [place] [id number] Referral ID Status Reason Start Date Expiration Date Visits Requested Visits Authorized [id number] New Request Auto-Generat ed Referral 02/24/2024 03/25/2025 1 1 Specialty Diagnoses / Procedures Referred By Contvipin t Referred To Contact CT IMAGING Diagnoses Malignant neoplasm of left breast in female, estrogen receptor negative, unspecified site of breast (HCC) Breast cancer metastasized to axillary lymph node, left (HCC) 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) Procedures CT ABD/PEL W IVCON CT ABD & PELVIS W/CONTRAST Hellen Zhu, DO [address] [place] [address] [place] [id number] Referral ID Status Reason Start Date Expiration Date Visits Requested Visits Authorized [id number] New Request Auto-Generat ed Referral 02/24/2024 03/25/2025 1 1 Additional Source Comments INFORMATION SOURCE (unrecogn ized section and content) DATE CREATED AUTHOR 09/16/2017 [facility] DATE CREATED AUTHOR AUTHOR'S ORGANIZ ATION 03/22/2023 [facility] DATE CREATED AUTHOR AUTHOR'S ORGANIZ ATION 05/08/2023 [facility] DATE CREATED AUTHOR AUTHOR'S ORGANIZ ATION 07/18/2023 [facility] DATE CREATED AUTHOR AUTHOR'S ORGANIZ ATION 09/06/2023 [facility] DATE CREATED AUTHOR AUTHOR'S ORGANIZ ATION 10/25/2023 [facility] ([place]) DATE CREATED AUTHOR AUTHOR'S ORGANIZ ATION 09/24/2024 [facility] DATE CREATED AUTHOR AUTHOR'S ORGANIZ ATION 01/03/2025 [facility] DATE CREATED AUTHOR AUTHOR'S ORGANIZ ATION 01/23/2025 [facility] DATE CREATED AUTHOR AUTHOR'S ORGANIZ ATION 01/30/2025 [facility] Source Comments (unrecognize d section and content) In the event this informatio n is protected by the Federal Confidentiality of Alcohol and Drug Abuse Patient Records regulations: The Federal rules restrict any use of the information to criminally investigate or prosecute any alcohol or drug abuse patient.[facility] the event this information is protected by the Federal Confidentiality of Alcohol and Drug Abuse Patient Records regulations: The Federal rules restrict any use of the information to criminally investigate or prosecute any alcohol or drug abuse patient.[facility] the event this information is protected by the Federal Confidentiality of Alcohol and Drug Abuse Patient Records regulations: The Federal rules restrict any use of the information to criminally investigate or prosecute any alcohol or drug abuse patient.[facility] the event this information is protected by the Federal Confidentiality of Alcohol and Drug Abuse Patient Records regulations: The Federal rules restrict any use of the information to criminally investigate or prosecute any alcohol or drug abuse patient.[facility] the event this information is protected by the Federal Confidentiality of Alcohol and Drug Abuse Patient Records regulations: The Federal rules restrict any use of the information to criminally investigate or prosecute any alcohol or drug abuse patient.[facility] the event this information is protected by the Federal Confidentiality of Alcohol and Drug Abuse Patient Records regulations: The Federal rules restrict any use of the information to criminally investigate or prosecute any alcohol or drug abuse patient.[facility] the event this information is protected by the Federal Confidentiality of Alcohol and Drug Abuse Patient Records regulations: The Federal rules restrict any use of the information to criminally investigate or prosecute any alcohol or drug abuse patient.[facility] the event this information is protected by the Federal Confidentiality of Alcohol and Drug Abuse Patient Records regulations: The Federal rules restrict any use of the information to criminally investigate or prosecute any alcohol or drug abuse patient.[facility] the event this information is protected by the Federal Confidentiality of Alcohol and Drug Abuse Patient Records regulations: The Federal rules restrict any use of the information to criminally investigate or prosecute any alcohol or drug abuse patient.[facility]In the event this information is protected by the Federal Confidentiality of Alcohol and Drug Abuse Patient Records regulations: The Federal rules restrict any use of the information to criminally investigate or prosecute any alcohol or drug abuse patient.[facility] HospitalIn the event this information is protected by the Federal Confidentiality of Alcohol and Drug Abuse Patient Records regulations: The Federal rules restrict any use of the information to criminally investigate or prosecute any alcohol or drug abuse patient.[facility] HospitalIn the event this information is protected by the Federal Confidentiality of Alcohol and Drug Abuse Patient Records regulations: The Federal rules restrict any use of the information to criminally investigate or prosecute any alcohol or drug abuse patient.[facility] HospitalIn the event this information is protected by the Federal Confidentiality of Alcohol and Drug Abuse Patient Records regulations: The Federal rules restrict any use of the information to criminally investigate or prosecute any alcohol or drug abuse patient.[facility] HospitalIn the event this information is protected by the Federal Confidentiality of Alcohol and Drug Abuse Patient Records regulations: The Federal rules restrict any use of the information to criminally investigate or prosecute any alcohol or drug abuse patient.[facility] HospitalIn the event this information is protected by the Federal Confidentiality of Alcohol and Drug Abuse Patient Records regulations: The Federal rules restrict any use of the information to criminally investigate or prosecute any alcohol or drug abuse patient.[facility] HospitalIn the event this information is protected by the Federal Confidentiality of Alcohol and Drug Abuse Patient Records regulations: The Federal rules restrict any use of the information to criminally investigate or prosecute any alcohol or drug abuse patient.[facility] HospitalIn the event this information is protected by the Federal Confidentiality of Alcohol and Drug Abuse Patient Records regulations: The Federal rules restrict any use of the information to criminally investigate or prosecute any alcohol or drug abuse patient.[facility] HospitalIn the event this information is protected by the Federal Confidentiality of Alcohol and Drug Abuse Patient Records regulations: The Federal rules restrict any use of the information to criminally investigate or prosecute any alcohol or drug abuse patient.[facility] HospitalIn the event this information is protected by the Federal Confidentiality of Alcohol and Drug Abuse Patient Records regulations: The Federal rules restrict any use of the information to criminally investigate or prosecute any alcohol or drug abuse patient.[facility] HospitalIn the event this information is protected by the Federal Confidentiality of Alcohol and Drug Abuse Patient Records regulations: The Federal rules restrict any use of the information to criminally investigate or prosecute any alcohol or drug abuse patient.[facility] the event this information is protected by the Federal Confidentiality of Alcohol and Drug Abuse Patient Records regulations: The Federal rules restrict any use of the information to criminally investigate or prosecute any alcohol or drug abuse patient.[facility] HospitalIn the event this information is protected by the Federal Confidentiality of Alcohol and Drug Abuse Patient Records regulations: The Federal rules restrict any use of the information to criminally investigate or prosecute any alcohol or drug abuse patient.[facility] HospitalIn the event this information is protected by the Federal Confidentiality of Alcohol and Drug Abuse Patient Records regulations: The Federal rules restrict any use of the information to criminally investigate or prosecute any alcohol or drug abuse patient.[facility]In the event this information is protected by the Federal Confidentiality of Alcohol and Drug Abuse Patient Records regulations: The Federal rules restrict any use of the information to criminally investigate or prosecute any alcohol or drug abuse patient.[facility] HospitalIn the event this information is protected by the Federal Confidentiality of Alcohol and Drug Abuse Patient Records regulations: The Federal rules restrict any use of the information to criminally investigate or prosecute any alcohol or drug abuse patient.[facility] HospitalIn the event this information is protected by the Federal Confidentiality of Alcohol and Drug Abuse Patient Records regulations: The Federal rules restrict any use of the information to criminally investigate or prosecute any alcohol or drug abuse patient.[facility] HospitalIn the event this information is protected by the Federal Confidentiality of Alcohol and Drug Abuse Patient Records regulations: The Federal rules restrict any use of the information to criminally investigate or prosecute any alcohol or drug abuse patient.[facility] HospitalIn the event this information is protected by the Federal Confidentiality of Alcohol and Drug Abuse Patient Records regulations: The Federal rules restrict any use of the information to criminally investigate or prosecute any alcohol or drug abuse patient.[facility] HospitalIn the event this information is protected by the Federal Confidentiality of Alcohol and Drug Abuse Patient Records regulations: The Federal rules restrict any use of the information to criminally investigate or prosecute any alcohol or drug abuse patient.[facility] HospitalIn the event this information is protected by the Federal Confidentiality of Alcohol and Drug Abuse Patient Records regulations: The Federal rules restrict any use of the information to criminally investigate or prosecute any alcohol or drug abuse patient.[facility] HospitalIn the event this information is protected by the Federal Confidentiality of Alcohol and Drug Abuse Patient Records regulations: The Federal rules restrict any use of the information to criminally investigate or prosecute any alcohol or drug abuse patient.[facility] HospitalIn the event this information is protected by the Federal Confidentiality of Alcohol and Drug Abuse Patient Records regulations: The Federal rules restrict any use of the information to criminally investigate or prosecute any alcohol or drug abuse patient.[facility] HospitalIn the event this information is protected by the Federal Confidentiality of Alcohol and Drug Abuse Patient Records regulations: The Federal rules restrict any use of the information to criminally investigate or prosecute any alcohol or drug abuse patient.[facility] HospitalIn the event this information is protected by the Federal Confidentiality of Alcohol and Drug Abuse Patient Records regulations: The Federal rules restrict any use of the information to criminally investigate or prosecute any alcohol or drug abuse patient.[facility] HospitalIn the event this information is protected by the Federal Confidentiality of Alcohol and Drug Abuse Patient Records regulations: The Federal rules restrict any use of the information to criminally investigate or prosecute any alcohol or drug abuse patient.[facility] HospitalIn the event this information is protected by the Federal Confidentiality of Alcohol and Drug Abuse Patient Records regulations: The Federal rules restrict any use of the information to criminally investigate or prosecute any alcohol or drug abuse patient.[facility] HospitalIn the event this information is protected by the Federal Confidentiality of Alcohol and Drug Abuse Patient Records regulations: The Federal rules restrict any use of the information to criminally investigate or prosecute any alcohol or drug abuse patient.[facility] HospitalIn the event this information is protected by the Federal Confidentiality of Alcohol and Drug Abuse Patient Records regulations: The Federal rules restrict any use of the information to criminally investigate or prosecute any alcohol or drug abuse patient.[facility] HospitalIn the event this information is protected by the Federal Confidentiality of Alcohol and Drug Abuse Patient Records regulations: The Federal rules restrict any use of the information to criminally investigate or prosecute any alcohol or drug abuse patient.[facility] HospitalIn the event this information is protected by the Federal Confidentiality of Alcohol and Drug Abuse Patient Records regulations: The Federal rules restrict any use of the information to criminally investigate or prosecute any alcohol or drug abuse patient.[facility] HospitalIn the event this information is protected by the Federal Confidentiality of Alcohol and Drug Abuse Patient Records regulations: The Federal rules restrict any use of the information to criminally investigate or prosecute any alcohol or drug abuse patient.[facility] HospitalIn the event this information is protected by the Federal Confidentiality of Alcohol and Drug Abuse Patient Records regulations: The Federal rules restrict any use of the information to criminally investigate or prosecute any alcohol or drug abuse patient.[facility] HospitalIn the event this information is protected by the Federal Confidentiality of Alcohol and Drug Abuse Patient Records regulations: The Federal rules restrict any use of the information to criminally investigate or prosecute any alcohol or drug abuse patient.[facility] HospitalIn the event this information is protected by the Federal Confidentiality of Alcohol and Drug Abuse Patient Records regulations: The Federal rules restrict any use of the information to criminally investigate or prosecute any alcohol or drug abuse patient.[facility] HospitalIn the event this information is protected by the Federal Confidentiality of Alcohol and Drug Abuse Patient Records regulations: The Federal rules restrict any use of the information to criminally investigate or prosecute any alcohol or drug abuse patient.[facility] HospitalIn the event this information is protected by the Federal Confidentiality of Alcohol and Drug Abuse Patient Records regulations: The Federal rules restrict any use of the information to criminally investigate or prosecute any alcohol or drug abuse patient.[facility] HospitalIn the event this information is protected by the Federal Confidentiality of Alcohol and Drug Abuse Patient Records regulations: The Federal rules restrict any use of the information to criminally investigate or prosecute any alcohol or drug abuse patient.[facility] HospitalIn the event this information is protected by the Federal Confidentiality of Alcohol and Drug Abuse Patient Records regulations: The Federal rules restrict any use of the information to criminally investigate or prosecute any alcohol or drug abuse patient.[facility] HospitalIn the event this information is protected by the Federal Confidentiality of Alcohol and Drug Abuse Patient Records regulations: The Federal rules restrict any use of the information to criminally investigate or prosecute any alcohol or drug abuse patient.[facility] HospitalIn the event this information is protected by the Federal Confidentiality of Alcohol and Drug Abuse Patient Records regulations: The Federal rules restrict any use of the information to criminally investigate or prosecute any alcohol or drug abuse patient.[facility] HospitalIn the event this information is protected by the Federal Confidentiality of Alcohol and Drug Abuse Patient Records regulations: The Federal rules restrict any use of the information to criminally investigate or prosecute any alcohol or drug abuse patient.[facility] HospitalIn the event this information is protected by the Federal Confidentiality of Alcohol and Drug Abuse Patient Records regulations: The Federal rules restrict any use of the information to criminally investigate or prosecute any alcohol or drug abuse patient.[facility] HospitalIn the event this information is protected by the Federal Confidentiality of Alcohol and Drug Abuse Patient Records regulations: The Federal rules restrict any use of the information to criminally investigate or prosecute any alcohol or drug abuse patient.[facility] HospitalIn the event this information is protected by the Federal Confidentiality of Alcohol and Drug Abuse Patient Records regulations: The Federal rules restrict any use of the information to criminally investigate or prosecute any alcohol or drug abuse patient.[facility] HospitalIn the event this information is protected by the Federal Confidentiality of Alcohol and Drug Abuse Patient Records regulations: The Federal rules restrict any use of the information to criminally investigate or prosecute any alcohol or drug abuse patient.[facility] HospitalIn the event this information is protected by the Federal Confidentiality of Alcohol and Drug Abuse Patient Records regulations: The Federal rules restrict any use of the information to criminally investigate or prosecute any alcohol or drug abuse patient.[facility] HospitalIn the event this information is protected by the Federal Confidentiality of Alcohol and Drug Abuse Patient Records regulations: The Federal rules restrict any use of the information to criminally investigate or prosecute any alcohol or drug abuse patient.[facility] HospitalIn the event this information is protected by the Federal Confidentiality of Alcohol and Drug Abuse Patient Records regulations: The Federal rules restrict any use of the information to criminally investigate or prosecute any alcohol or drug abuse patient.[facility] HospitalIn the event this information is protected by the Federal Confidentiality of Alcohol and Drug Abuse Patient Records regulations: The Federal rules restrict any use of the information to criminally investigate or prosecute any alcohol or drug abuse patient.[facility] HospitalIn the event this information is protected by the Federal Confidentiality of Alcohol and Drug Abuse Patient Records regulations: The Federal rules restrict any use of the information to criminally investigate or prosecute any alcohol or drug abuse patient.[facility] HospitalIn the event this information is protected by the Federal Confidentiality of Alcohol and Drug Abuse Patient Records regulations: The Federal rules restrict any use of the information to criminally investigate or prosecute any alcohol or drug abuse patient.[facility] HospitalIn the event this information is protected by the Federal Confidentiality of Alcohol and Drug Abuse Patient Records regulations: The Federal rules restrict any use of the information to criminally investigate or prosecute any alcohol or drug abuse patient.[facility] HospitalIn the event this information is protected by the Federal Confidentiality of Alcohol and Drug Abuse Patient Records regulations: The Federal rules restrict any use of the information to criminally investigate or prosecute any alcohol or drug abuse patient.[facility] HospitalIn the event this information is protected by the Federal Confidentiality of Alcohol and Drug Abuse Patient Records regulations: The Federal rules restrict any use of the information to criminally investigate or prosecute any alcohol or drug abuse patient.[facility] HospitalIn the event this information is protected by the Federal Confidentiality of Alcohol and Drug Abuse Patient Records regulations: The Federal rules restrict any use of the information to criminally investigate or prosecute any alcohol or drug abuse patient.[facility] HospitalIn the event this information is protected by the Federal Confidentiality of Alcohol and Drug Abuse Patient Records regulations: The Federal rules restrict any use of the information to criminally investigate or prosecute any alcohol or drug abuse patient.[facility] HospitalIn the event this information is protected by the Federal Confidentiality of Alcohol and Drug Abuse Patient Records regulations: The Federal rules restrict any use of the information to criminally investigate or prosecute any alcohol or drug abuse patient.[facility] HospitalIn the event this information is protected by the Federal Confidentiality of Alcohol and Drug Abuse Patient Records regulations: The Federal rules restrict any use of the information to criminally investigate or prosecute any alcohol or drug abuse patient.[facility] HospitalIn the event this information is protected by the Federal Confidentiality of Alcohol and Drug Abuse Patient Records regulations: The Federal rules restrict any use of the information to criminally investigate or prosecute any alcohol or drug abuse patient.[facility] HospitalIn the event this information is protected by the Federal Confidentiality of Alcohol and Drug Abuse Patient Records regulations: The Federal rules restrict any use of the information to criminally investigate or prosecute any alcohol or drug abuse patient.[facility] the event this information is protected by the Federal Confidentiality of Alcohol and Drug Abuse Patient Records regulations: The Federal rules restrict any use of the information to criminally investigate or prosecute any alcohol or drug abuse patient.[facility] HospitalIn the event this information is protected by the Federal Confidentiality of Alcohol and Drug Abuse Patient Records regulations: The Federal rules restrict any use of the information to criminally investigate or prosecute any alcohol or drug abuse patient.[facility] HospitalIn the event this information is protected by the Federal Confidentiality of Alcohol and Drug Abuse Patient Records regulations: The Federal rules restrict any use of the information to criminally investigate or prosecute any alcohol or drug abuse patient.[facility]In the event this information is protected by the Federal Confidentiality of Alcohol and Drug Abuse Patient Records regulations: The Federal rules restrict any use of the information to criminally investigate or prosecute any alcohol or drug abuse patient.[facility] HospitalIn the event this information is protected by the Federal Confidentiality of Alcohol and Drug Abuse Patient Records regulations: The Federal rules restrict any use of the information to criminally investigate or prosecute any alcohol or drug abuse patient.[facility] HospitalIn the event this information is protected by the Federal Confidentiality of Alcohol and Drug Abuse Patient Records regulations: The Federal rules restrict any use of the information to criminally investigate or prosecute any alcohol or drug abuse patient.[facility] HospitalIn the event this information is protected by the Federal Confidentiality of Alcohol and Drug Abuse Patient Records regulations: The Federal rules restrict any use of the information to criminally investigate or prosecute any alcohol or drug abuse patient.[facility] HospitalIn the event this information is protected by the Federal Confidentiality of Alcohol and Drug Abuse Patient Records regulations: The Federal rules restrict any use of the information to criminally investigate or prosecute any alcohol or drug abuse patient.[facility] HospitalIn the event this information is protected by the Federal Confidentiality of Alcohol and Drug Abuse Patient Records regulations: The Federal rules restrict any use of the information to criminally investigate or prosecute any alcohol or drug abuse patient.[facility] HospitalIn the event this information is protected by the Federal Confidentiality of Alcohol and Drug Abuse Patient Records regulations: The Federal rules restrict any use of the information to criminally investigate or prosecute any alcohol or drug abuse patient.[facility] HospitalIn the event this information is protected by the Federal Confidentiality of Alcohol and Drug Abuse Patient Records regulations: The Federal rules restrict any use of the information to criminally investigate or prosecute any alcohol or drug abuse patient.[facility] HospitalIn the event this information is protected by the Federal Confidentiality of Alcohol and Drug Abuse Patient Records regulations: The Federal rules restrict any use of the information to criminally investigate or prosecute any alcohol or drug abuse patient.[facility] HospitalIn the event this information is protected by the Federal Confidentiality of Alcohol and Drug Abuse Patient Records regulations: The Federal rules restrict any use of the information to criminally investigate or prosecute any alcohol or drug abuse patient.[facility]In the event this information is protected by the Federal Confidentiality of Alcohol and Drug Abuse Patient Records regulations: The Federal rules restrict any use of the information to criminally investigate or prosecute any alcohol or drug abuse patient.[facility] HospitalIn the event this information is protected by the Federal Confidentiality of Alcohol and Drug Abuse Patient Records regulations: The Federal rules restrict any use of the information to criminally investigate or prosecute any alcohol or drug abuse patient.[facility] HospitalIn the event this information is protected by the Federal Confidentiality of Alcohol and Drug Abuse Patient Records regulations: The Federal rules restrict any use of the information to criminally investigate or prosecute any alcohol or drug abuse patient.[facility] HospitalIn the event this information is protected by the Federal Confidentiality of Alcohol and Drug Abuse Patient Records regulations: The Federal rules restrict any use of the information to criminally investigate or prosecute any alcohol or drug abuse patient.[facility] HospitalIn the event this information is protected by the Federal Confidentiality of Alcohol and Drug Abuse Patient Records regulations: The Federal rules restrict any use of the information to criminally investigate or prosecute any alcohol or drug abuse patient.[facility] HospitalIn the event this information is protected by the Federal Confidentiality of Alcohol and Drug Abuse Patient Records regulations: The Federal rules restrict any use of the information to criminally investigate or prosecute any alcohol or drug abuse patient.[facility] HospitalIn the event this information is protected by the Federal Confidentiality of Alcohol and Drug Abuse Patient Records regulations: The Federal rules restrict any use of the information to criminally investigate or prosecute any alcohol or drug abuse patient.[facility] HospitalIn the event this information is protected by the Federal Confidentiality of Alcohol and Drug Abuse Patient Records regulations: The Federal rules restrict any use of the information to criminally investigate or prosecute any alcohol or drug abuse patient.[facility] HospitalIn the event this information is protected by the Federal Confidentiality of Alcohol and Drug Abuse Patient Records regulations: The Federal rules restrict any use of the information to criminally investigate or prosecute any alcohol or drug abuse patient.[facility] HospitalIn the event this information is protected by the Federal Confidentiality of Alcohol and Drug Abuse Patient Records regulations: The Federal rules restrict any use of the information to criminally investigate or prosecute any alcohol or drug abuse patient.[facility] HospitalIn the event this information is protected by the Federal Confidentiality of Alcohol and Drug Abuse Patient Records regulations: The Federal rules restrict any use of the information to criminally investigate or prosecute any alcohol or drug abuse patient.[facility] HospitalIn the event this information is protected by the Federal Confidentiality of Alcohol and Drug Abuse Patient Records regulations: The Federal rules restrict any use of the information to criminally investigate or prosecute any alcohol or drug abuse patient.[facility] HospitalIn the event this information is protected by the Federal Confidentiality of Alcohol and Drug Abuse Patient Records regulations: The Federal rules restrict any use of the information to criminally investigate or prosecute any alcohol or drug abuse patient.[facility] HospitalIn the event this information is protected by the Federal Confidentiality of Alcohol and Drug Abuse Patient Records regulations: The Federal rules restrict any use of the information to criminally investigate or prosecute any alcohol or drug abuse patient.[facility] HospitalIn the event this information is protected by the Federal Confidentiality of Alcohol and Drug Abuse Patient Records regulations: The Federal rules restrict any use of the information to criminally investigate or prosecute any alcohol or drug abuse patient.[facility] HospitalIn the event this information is protected by the Federal Confidentiality of Alcohol and Drug Abuse Patient Records regulations: The Federal rules restrict any use of the information to criminally investigate or prosecute any alcohol or drug abuse patient.[facility] HospitalIn the event this information is protected by the Federal Confidentiality of Alcohol and Drug Abuse Patient Records regulations: The Federal rules restrict any use of the information to criminally investigate or prosecute any alcohol or drug abuse patient.[facility] HospitalIn the event this information is protected by the Federal Confidentiality of Alcohol and Drug Abuse Patient Records regulations: The Federal rules restrict any use of the information to criminally investigate or prosecute any alcohol or drug abuse patient.[facility] HospitalIn the event this information is protected by the Federal Confidentiality of Alcohol and Drug Abuse Patient Records regulations: The Federal rules restrict any use of the information to criminally investigate or prosecute any alcohol or drug abuse patient.[facility] HospitalIn the event this information is protected by the Federal Confidentiality of Alcohol and Drug Abuse Patient Records regulations: The Federal rules restrict any use of the information to criminally investigate or prosecute any alcohol or drug abuse patient.[facility] HospitalIn the event this information is protected by the Federal Confidentiality of Alcohol and Drug Abuse Patient Records regulations: The Federal rules restrict any use of the information to criminally investigate or prosecute any alcohol or drug abuse patient.[facility] HospitalIn the event this information is protected by the Federal Confidentiality of Alcohol and Drug Abuse Patient Records regulations: The Federal rules restrict any use of the information to criminally investigate or prosecute any alcohol or drug abuse patient.[facility] HospitalIn the event this information is protected by the Federal Confidentiality of Alcohol and Drug Abuse Patient Records regulations: The Federal rules restrict any use of the information to criminally investigate or prosecute any alcohol or drug abuse patient.[facility] HospitalIn the event this information is protected by the Federal Confidentiality of Alcohol and Drug Abuse Patient Records regulations: The Federal rules restrict any use of the information to criminally investigate or prosecute any alcohol or drug abuse patient.[facility] HospitalIn the event this information is protected by the Federal Confidentiality of Alcohol and Drug Abuse Patient Records regulations: The Federal rules restrict any use of the information to criminally investigate or prosecute any alcohol or drug abuse patient.[facility] HospitalIn the event this information is protected by the Federal Confidentiality of Alcohol and Drug Abuse Patient Records regulations: The Federal rules restrict any use of the information to criminally investigate or prosecute any alcohol or drug abuse patient.[facility] HospitalIn the event this information is protected by the Federal Confidentiality of Alcohol and Drug Abuse Patient Records regulations: The Federal rules restrict any use of the information to criminally investigate or prosecute any alcohol or drug abuse patient.[facility] HospitalIn the event this information is protected by the Federal Confidentiality of Alcohol and Drug Abuse Patient Records regulations: The Federal rules restrict any use of the information to criminally investigate or prosecute any alcohol or drug abuse patient.[facility] HospitalIn the event this information is protected by the Federal Confidentiality of Alcohol and Drug Abuse Patient Records regulations: The Federal rules restrict any use of the information to criminally investigate or prosecute any alcohol or drug abuse patient.[facility] HospitalIn the event this information is protected by the Federal Confidentiality of Alcohol and Drug Abuse Patient Records regulations: The Federal rules restrict any use of the information to criminally investigate or prosecute any alcohol or drug abuse patient.[facility] HospitalIn the event this information is protected by the Federal Confidentiality of Alcohol and Drug Abuse Patient Records regulations: The Federal rules restrict any use of the information to criminally investigate or prosecute any alcohol or drug abuse patient.[facility] HospitalIn the event this information is protected by the Federal Confidentiality of Alcohol and Drug Abuse Patient Records regulations: The Federal rules restrict any use of the information to criminally investigate or prosecute any alcohol or drug abuse patient.[facility] HospitalIn the event this information is protected by the Federal Confidentiality of Alcohol and Drug Abuse Patient Records regulations: The Federal rules restrict any use of the information to criminally investigate or prosecute any alcohol or drug abuse patient.[facility] HospitalIn the event this information is protected by the Federal Confidentiality of Alcohol and Drug Abuse Patient Records regulations: The Federal rules restrict any use of the information to criminally investigate or prosecute any alcohol or drug abuse patient.[facility] HospitalIn the event this information is protected by the Federal Confidentiality of Alcohol and Drug Abuse Patient Records regulations: The Federal rules restrict any use of the information to criminally investigate or prosecute any alcohol or drug abuse patient.[facility] HospitalIn the event this information is protected by the Federal Confidentiality of Alcohol and Drug Abuse Patient Records regulations: The Federal rules restrict any use of the information to criminally investigate or prosecute any alcohol or drug abuse patient.[facility] HospitalIn the event this information is protected by the Federal Confidentiality of Alcohol and Drug Abuse Patient Records regulations: The Federal rules restrict any use of the information to criminally investigate or prosecute any alcohol or drug abuse patient.[facility] the event this information is protected by the Federal Confidentiality of Alcohol and Drug Abuse Patient Records regulations: The Federal rules restrict any use of the information to criminally investigate or prosecute any alcohol or drug abuse patient.[facility] HospitalIn the event this information is protected by the Federal Confidentiality of Alcohol and Drug Abuse Patient Records regulations: The Federal rules restrict any use of the information to criminally investigate or prosecute any alcohol or drug abuse patient.[facility] HospitalIn the event this information is protected by the Federal Confidentiality of Alcohol and Drug Abuse Patient Records regulations: The Federal rules restrict any use of the information to criminally investigate or prosecute any alcohol or drug abuse patient.[facility]In the event this information is protected by the Federal Confidentiality of Alcohol and Drug Abuse Patient Records regulations: The Federal rules restrict any use of the information to criminally investigate or prosecute any alcohol or drug abuse patient.[facility] HospitalIn the event this information is protected by the Federal Confidentiality of Alcohol and Drug Abuse Patient Records regulations: The Federal rules restrict any use of the information to criminally investigate or prosecute any alcohol or drug abuse patient.[facility] HospitalIn the event this information is protected by the Federal Confidentiality of Alcohol and Drug Abuse Patient Records regulations: The Federal rules restrict any use of the information to criminally investigate or prosecute any alcohol or drug abuse patient.[facility] HospitalIn the event this information is protected by the Federal Confidentiality of Alcohol and Drug Abuse Patient Records regulations: The Federal rules restrict any use of the information to criminally investigate or prosecute any alcohol or drug abuse patient.[facility] HospitalIn the event this information is protected by the Federal Confidentiality of Alcohol and Drug Abuse Patient Records regulations: The Federal rules restrict any use of the information to criminally investigate or prosecute any alcohol or drug abuse patient.[facility] HospitalIn the event this information is protected by the Federal Confidentiality of Alcohol and Drug Abuse Patient Records regulations: The Federal rules restrict any use of the information to criminally investigate or prosecute any alcohol or drug abuse patient.[facility] HospitalIn the event this information is protected by the Federal Confidentiality of Alcohol and Drug Abuse Patient Records regulations: The Federal rules restrict any use of the information to criminally investigate or prosecute any alcohol or drug abuse patient.[facility] HospitalIn the event this information is protected by the Federal Confidentiality of Alcohol and Drug Abuse Patient Records regulations: The Federal rules restrict any use of the information to criminally investigate or prosecute any alcohol or drug abuse patient.[facility] HospitalIn the event this information is protected by the Federal Confidentiality of Alcohol and Drug Abuse Patient Records regulations: The Federal rules restrict any use of the information to criminally investigate or prosecute any alcohol or drug abuse patient.[facility] HospitalIn the event this information is protected by the Federal Confidentiality of Alcohol and Drug Abuse Patient Records regulations: The Federal rules restrict any use of the information to criminally investigate or prosecute any alcohol or drug abuse patient.[facility] HospitalIn the event this information is protected by the Federal Confidentiality of Alcohol and Drug Abuse Patient Records regulations: The Federal rules restrict any use of the information to criminally investigate or prosecute any alcohol or drug abuse patient.[facility] HospitalIn the event this information is protected by the Federal Confidentiality of Alcohol and Drug Abuse Patient Records regulations: The Federal rules restrict any use of the information to criminally investigate or prosecute any alcohol or drug abuse patient.[facility] HospitalIn the event this information is protected by the Federal Confidentiality of Alcohol and Drug Abuse Patient Records regulations: The Federal rules restrict any use of the information to criminally investigate or prosecute any alcohol or drug abuse patient.[facility] HospitalIn the event this information is protected by the Federal Confidentiality of Alcohol and Drug Abuse Patient Records regulations: The Federal rules restrict any use of the information to criminally investigate or prosecute any alcohol or drug abuse patient.[facility] HospitalIn the event this information is protected by the Federal Confidentiality of Alcohol and Drug Abuse Patient Records regulations: The Federal rules restrict any use of the information to criminally investigate or prosecute any alcohol or drug abuse patient.[facility] HospitalIn the event this information is protected by the Federal Confidentiality of Alcohol and Drug Abuse Patient Records regulations: The Federal rules restrict any use of the information to criminally investigate or prosecute any alcohol or drug abuse patient.[facility] HospitalIn the event this information is protected by the Federal Confidentiality of Alcohol and Drug Abuse Patient Records regulations: The Federal rules restrict any use of the information to criminally investigate or prosecute any alcohol or drug abuse patient.[facility] HospitalIn the event this information is protected by the Federal Confidentiality of Alcohol and Drug Abuse Patient Records regulations: The Federal rules restrict any use of the information to criminally investigate or prosecute any alcohol or drug abuse patient.[facility] HospitalIn the event this information is protected by the Federal Confidentiality of Alcohol and Drug Abuse Patient Records regulations: The Federal rules restrict any use of the information to criminally investigate or prosecute any alcohol or drug abuse patient.[facility] HospitalIn the event this information is protected by the Federal Confidentiality of Alcohol and Drug Abuse Patient Records regulations: The Federal rules restrict any use of the information to criminally investigate or prosecute any alcohol or drug abuse patient.[facility] HospitalIn the event this information is protected by the Federal Confidentiality of Alcohol and Drug Abuse Patient Records regulations: The Federal rules restrict any use of the information to criminally investigate or prosecute any alcohol or drug abuse patient.[facility] HospitalIn the event this information is protected by the Federal Confidentiality of Alcohol and Drug Abuse Patient Records regulations: The Federal rules restrict any use of the information to criminally investigate or prosecute any alcohol or drug abuse patient.[facility] HospitalIn the event this information is protected by the Federal Confidentiality of Alcohol and Drug Abuse Patient Records regulations: The Federal rules restrict any use of the information to criminally investigate or prosecute any alcohol or drug abuse patient.[facility] HospitalIn the event this information is protected by the Federal Confidentiality of Alcohol and Drug Abuse Patient Records regulations: The Federal rules restrict any use of the information to criminally investigate or prosecute any alcohol or drug abuse patient.[facility] HospitalIn the event this information is protected by the Federal Confidentiality of Alcohol and Drug Abuse Patient Records regulations: The Federal rules restrict any use of the information to criminally investigate or prosecute any alcohol or drug abuse patient.[facility] HospitalIn the event this information is protected by the Federal Confidentiality of Alcohol and Drug Abuse Patient Records regulations: The Federal rules restrict any use of the information to criminally investigate or prosecute any alcohol or drug abuse patient.[facility] HospitalIn the event this information is protected by the Federal Confidentiality of Alcohol and Drug Abuse Patient Records regulations: The Federal rules restrict any use of the information to criminally investigate or prosecute any alcohol or drug abuse patient.[facility] HospitalIn the event this information is protected by the Federal Confidentiality of Alcohol and Drug Abuse Patient Records regulations: The Federal rules restrict any use of the information to criminally investigate or prosecute any alcohol or drug abuse patient.[facility] HospitalIn the event this information is protected by the Federal Confidentiality of Alcohol and Drug Abuse Patient Records regulations: The Federal rules restrict any use of the information to criminally investigate or prosecute any alcohol or drug abuse patient.[facility] HospitalIn the event this information is protected by the Federal Confidentiality of Alcohol and Drug Abuse Patient Records regulations: The Federal rules restrict any use of the information to criminally investigate or prosecute any alcohol or drug abuse patient.[facility] HospitalIn the event this information is protected by the Federal Confidentiality of Alcohol and Drug Abuse Patient Records regulations: The Federal rules restrict any use of the information to criminally investigate or prosecute any alcohol or drug abuse patient.[facility] HospitalIn the event this information is protected by the Federal Confidentiality of Alcohol and Drug Abuse Patient Records regulations: The Federal rules restrict any use of the information to criminally investigate or prosecute any alcohol or drug abuse patient.[facility] HospitalIn the event this information is protected by the Federal Confidentiality of Alcohol and Drug Abuse Patient Records regulations: The Federal rules restrict any use of the information to criminally investigate or prosecute any alcohol or drug abuse patient.[facility] HospitalIn the event this information is protected by the Federal Confidentiality of Alcohol and Drug Abuse Patient Records regulations: The Federal rules restrict any use of the information to criminally investigate or prosecute any alcohol or drug abuse patient.[facility] HospitalIn the event this information is protected by the Federal Confidentiality of Alcohol and Drug Abuse Patient Records regulations: The Federal rules restrict any use of the information to criminally investigate or prosecute any alcohol or drug abuse patient.[facility] HospitalIn the event this information is protected by the Federal Confidentiality of Alcohol and Drug Abuse Patient Records regulations: The Federal rules restrict any use of the information to criminally investigate or prosecute any alcohol or drug abuse patient.[facility] HospitalIn the event this information is protected by the Federal Confidentiality of Alcohol and Drug Abuse Patient Records regulations: The Federal rules restrict any use of the information to criminally investigate or prosecute any alcohol or drug abuse patient.[facility] HospitalIn the event this information is protected by the Federal Confidentiality of Alcohol and Drug Abuse Patient Records regulations: The Federal rules restrict any use of the information to criminally investigate or prosecute any alcohol or drug abuse patient.[facility] HospitalIn the event this information is protected by the Federal Confidentiality of Alcohol and Drug Abuse Patient Records regulations: The Federal rules restrict any use of the information to criminally investigate or prosecute any alcohol or drug abuse patient.[facility] HospitalIn the event this information is protected by the Federal Confidentiality of Alcohol and Drug Abuse Patient Records regulations: The Federal rules restrict any use of the information to criminally investigate or prosecute any alcohol or drug abuse patient.[facility] HospitalIn the event this information is protected by the Federal Confidentiality of Alcohol and Drug Abuse Patient Records regulations: The Federal rules restrict any use of the information to criminally investigate or prosecute any alcohol or drug abuse patient.[facility] HospitalIn the event this information is protected by the Federal Confidentiality of Alcohol and Drug Abuse Patient Records regulations: The Federal rules restrict any use of the information to criminally investigate or prosecute any alcohol or drug abuse patient.[facility] HospitalIn the event this information is protected by the Federal Confidentiality of Alcohol and Drug Abuse Patient Records regulations: The Federal rules restrict any use of the information to criminally investigate or prosecute any alcohol or drug abuse patient.[facility] HospitalIn the event this information is protected by the Federal Confidentiality of Alcohol and Drug Abuse Patient Records regulations: The Federal rules restrict any use of the information to criminally investigate or prosecute any alcohol or drug abuse patient.[facility] HospitalIn the event this information is protected by the Federal Confidentiality of Alcohol and Drug Abuse Patient Records regulations: The Federal rules restrict any use of the information to criminally investigate or prosecute any alcohol or drug abuse patient.[facility] HospitalIn the event this information is protected by the Federal Confidentiality of Alcohol and Drug Abuse Patient Records regulations: The Federal rules restrict any use of the information to criminally investigate or prosecute any alcohol or drug abuse patient.[facility] HospitalIn the event this information is protected by the Federal Confidentiality of Alcohol and Drug Abuse Patient Records regulations: The Federal rules restrict any use of the information to criminally investigate or prosecute any alcohol or drug abuse patient.[facility] the event this information is protected by the Federal Confidentiality of Alcohol and Drug Abuse Patient Records regulations: The Federal rules restrict any use of the information to criminally investigate or prosecute any alcohol or drug abuse patient.[facility] HospitalIn the event this information is protected by the Federal Confidentiality of Alcohol and Drug Abuse Patient Records regulations: The Federal rules restrict any use of the information to criminally investigate or prosecute any alcohol or drug abuse patient.[facility] HospitalIn the event this information is protected by the Federal Confidentiality of Alcohol and Drug Abuse Patient Records regulations: The Federal rules restrict any use of the information to criminally investigate or prosecute any alcohol or drug abuse patient.[facility]In the event this information is protected by the Federal Confidentiality of Alcohol and Drug Abuse Patient Records regulations: The Federal rules restrict any use of the information to criminally investigate or prosecute any alcohol or drug abuse patient.[facility] HospitalIn the event this information is protected by the Federal Confidentiality of Alcohol and Drug Abuse Patient Records regulations: The Federal rules restrict any use of the information to criminally investigate or prosecute any alcohol or drug abuse patient.[facility] HospitalIn the event this information is protected by the Federal Confidentiality of Alcohol and Drug Abuse Patient Records regulations: The Federal rules restrict any use of the information to criminally investigate or prosecute any alcohol or drug abuse patient.[facility] HospitalIn the event this information is protected by the Federal Confidentiality of Alcohol and Drug Abuse Patient Records regulations: The Federal rules restrict any use of the information to criminally investigate or prosecute any alcohol or drug abuse patient.[facility] HospitalIn the event this information is protected by the Federal Confidentiality of Alcohol and Drug Abuse Patient Records regulations: The Federal rules restrict any use of the information to criminally investigate or prosecute any alcohol or drug abuse patient.[facility] HospitalIn the event this information is protected by the Federal Confidentiality of Alcohol and Drug Abuse Patient Records regulations: The Federal rules restrict any use of the information to criminally investigate or prosecute any alcohol or drug abuse patient.[facility] HospitalIn the event this information is protected by the Federal Confidentiality of Alcohol and Drug Abuse Patient Records regulations: The Federal rules restrict any use of the information to criminally investigate or prosecute any alcohol or drug abuse patient.[facility] HospitalIn the event this information is protected by the Federal Confidentiality of Alcohol and Drug Abuse Patient Records regulations: The Federal rules restrict any use of the information to criminally investigate or prosecute any alcohol or drug abuse patient.[facility] HospitalIn the event this information is protected by the Federal Confidentiality of Alcohol and Drug Abuse Patient Records regulations: The Federal rules restrict any use of the information to criminally investigate or prosecute any alcohol or drug abuse patient.[facility] HospitalIn the event this information is protected by the Federal Confidentiality of Alcohol and Drug Abuse Patient Records regulations: The Federal rules restrict any use of the information to criminally investigate or prosecute any alcohol or drug abuse patient.[facility] HospitalIn the event this information is protected by the Federal Confidentiality of Alcohol and Drug Abuse Patient Records regulations: The Federal rules restrict any use of the information to criminally investigate or prosecute any alcohol or drug abuse patient.[facility] HospitalIn the event this information is protected by the Federal Confidentiality of Alcohol and Drug Abuse Patient Records regulations: The Federal rules restrict any use of the information to criminally investigate or prosecute any alcohol or drug abuse patient.[facility] HospitalIn the event this information is protected by the Federal Confidentiality of Alcohol and Drug Abuse Patient Records regulations: The Federal rules restrict any use of the information to criminally investigate or prosecute any alcohol or drug abuse patient.[facility] HospitalIn the event this information is protected by the Federal Confidentiality of Alcohol and Drug Abuse Patient Records regulations: The Federal rules restrict any use of the information to criminally investigate or prosecute any alcohol or drug abuse patient.[facility] HospitalIn the event this information is protected by the Federal Confidentiality of Alcohol and Drug Abuse Patient Records regulations: The Federal rules restrict any use of the information to criminally investigate or prosecute any alcohol or drug abuse patient.[facility] HospitalIn the event this information is protected by the Federal Confidentiality of Alcohol and Drug Abuse Patient Records regulations: The Federal rules restrict any use of the information to criminally investigate or prosecute any alcohol or drug abuse patient.[facility] HospitalIn the event this information is protected by the Federal Confidentiality of Alcohol and Drug Abuse Patient Records regulations: The Federal rules restrict any use of the information to criminally investigate or prosecute any alcohol or drug abuse patient.[facility] HospitalIn the event this information is protected by the Federal Confidentiality of Alcohol and Drug Abuse Patient Records regulations: The Federal rules restrict any use of the information to criminally investigate or prosecute any alcohol or drug abuse patient.[facility] HospitalIn the event this information is protected by the Federal Confidentiality of Alcohol and Drug Abuse Patient Records regulations: The Federal rules restrict any use of the information to criminally investigate or prosecute any alcohol or drug abuse patient.[facility] HospitalIn the event this information is protected by the Federal Confidentiality of Alcohol and Drug Abuse Patient Records regulations: The Federal rules restrict any use of the information to criminally investigate or prosecute any alcohol or drug abuse patient.[facility] HospitalIn the event this information is protected by the Federal Confidentiality of Alcohol and Drug Abuse Patient Records regulations: The Federal rules restrict any use of the information to criminally investigate or prosecute any alcohol or drug abuse patient.[facility] HospitalIn the event this information is protected by the Federal Confidentiality of Alcohol and Drug Abuse Patient Records regulations: The Federal rules restrict any use of the information to criminally investigate or prosecute any alcohol or drug abuse patient.[facility] HospitalIn the event this information is protected by the Federal Confidentiality of Alcohol and Drug Abuse Patient Records regulations: The Federal rules restrict any use of the information to criminally investigate or prosecute any alcohol or drug abuse patient.[facility] HospitalIn the event this information is protected by the Federal Confidentiality of Alcohol and Drug Abuse Patient Records regulations: The Federal rules restrict any use of the information to criminally investigate or prosecute any alcohol or drug abuse patient.[facility] HospitalIn the event this information is protected by the Federal Confidentiality of Alcohol and Drug Abuse Patient Records regulations: The Federal rules restrict any use of the information to criminally investigate or prosecute any alcohol or drug abuse patient.[facility] Reason for Visit (unrecogniz ed section and content) Reason Comments Imm/Inj Specialty Diagnoses / Procedures Referred By Contac t Referred To Contact Diagnoses 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, left (HCC) Triple negative breast cancer (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) Hellen Zhu, [address] [place] [address] Phone: tel: fax: Hematology/Oncology [address] [place] [address] Phone: tel: fax: Referral ID Status Reason Start Date Expiration Date V isits Requested Visits Authorized [id number] Authorized 10/08/2024 01/06/2025 99 99 Reason Comments [...] INJECTION, PEGFILGRASTIM, EXCLUDES BIOSIMILAR, 0.5 MG Hellen Zhu DO [address] [place] [address] [facility] [address] [place] [address] Referral ID Status Reason Start Date Expiration Date Visits Requested Visits Authorized [id number] Authorized Patient Cleared - Admin/Chairm an/Director advise to proceed or did not respond 04/12/2023 01/10/2024 20 20 Reason Comments Blood Draw (CVAD) Specialty Diagnoses / Procedures [facility] To Contact HEMATOLOGY/ONCOLOGY Diagnoses LAB/OV/TX Procedures LAB/OV/TX Labwork Self [facility] [address] [place] [address] Referral ID Status Reason Start Date Expiration Date V isits Requested Visits Authorized [id number] Closed OON/Self Pay Override Patient Cleared - INN Insurance Found 06/28/2023 10/05/2024 1 1 Referral ID Status Reason Start Date Expiration Date Visits Requested Visits Authorized [id number] Outside PCP OON/Self Pay Override Patient Cleared - INN Insurance Found 06/28/2023 10/05/2024 1 1 Specialty Diagnoses / Procedures [facility] Referred To Contact HEMATOLOGY/ONCOLOGY Diagnoses LAB/OV/TX Procedures [facility] [address] [place] [address] Referral ID Status Reason Start Date Expiration Date Visits Requested Visits Authorized [id number] Outside PCP OON/Self Pay Override 06/28/2023 10/05/2024 1 1 Referral ID Status Reason Start Date Expiration Date V isits Requested Visits Authorized [id number] Authorized 04/12/2023 01/10/2024 20 20 Reason Comments Established Patient Specialty Diagnoses / Procedures Referred By Contac t Referred To Contact HEMATOLOGY/ONCOLOGY Diagnoses LAB AND OFFICE VISIT Procedures LAB AND OFFICE VISIT Self [facility] [address] [place] [address] Referral ID Status Reason Start Date Expiration Date Visits Requested Visits Authorized [id number] Outside PCP OON/Self Pay Override 04/15/2023 07/23/2024 1 1 Reason Comments Established Patient Follow-Up Reason Comments Sinus Problem cough, head congesti on, diarrhea and nausea x 6 days Reason Comments Results Specialty Diagnoses / Procedures Referred By Dary t Referred To Contact GENERAL SURGERY Diagnoses u/s right breast bx next saturday @ 1:30 Procedures u/s right breast bx next saturday @ 1:30 Martha Darby MD [address] [place] [address] [facility] [address] [place] [address] Referral ID Status Reason Start Date Expiration Date Visits Requested Visits Authorized [id number] Pending Review OON/Self Pay Override 10/06/2021 01/04/2022 1 1 Reason Comments Consult C/o stomach burning and sour, nausea is mild and diarrhea is chronic Specialty Diagnoses / Procedures Referred By Dary t Referred To Contact [facility] Diagnoses consult Procedures OFFICE CONSULTATION NEW/ESTAB PATIENT 15 MIN Ken Zarco MD [address] [facility] [address] [place] [address] [facility] [address] [place] [id number] Referral ID Status Reason Start Date Expiration Date Visits Requested Visits Authorized [id number] Outside PCP OON/Self Pay Override 01/31/2022 05/01/2022 1 1 Reason Comments Patient Update Procedure Reason Comments Nausea Pt reported chills, body aches, x3 days. Reason Comments Consult EGD Reason Comments Consult Left axilla biopsy, abnormal US Specialty Diagnoses / Procedures Referred By Dary t Referred To Contact GENERAL SURGERY Diagnoses Breast Biopsy Consult - Images requested 03/04/2023 - PCP Referring - In Scanned Doc Procedures NEW DDI PATIENT Ken Zarco MD [address] [address] [facility] [address] [facility] [place] [address] Referral ID Status Reason Start Date Expiration Date Visits Requested Visits Authorized [id number] Outside PCP OON/Self Pay Override 3 09/01/2023 1 1 Reason Comments New Patient Left breast cancer Specialty Diagnoses / Procedures Referred By [facility] Referred To Contact Breast Diseases / BREAST CENTER Diagnoses 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) Malignant neoplasm of left breast in female, estrogen receptor negative, unspecified site of breast (HCC) (HCC) Procedures CONSULT TO BREAST CENTER OFFICE/OUTPATIENT NEW HIGH MDM 60 MINUTES REFERRAL TO [facility] FINANCIAL COUNSELOR OFFICE/OUTPATIENT NEW MODERATE MDM 45 MINUTES Hellen Zhu, DO [address] [place] [address] [place] [address] [place] [address] Referral ID Status Reason Start Date Expiration Date V isits Requested Visits Authorized [id number] Closed PCP Requested Referral Financial Clearance Required - OON Payor 04/09/2023 03/24/2024 1 1 Specialty Diagnoses / Procedures Referred By [facility] Referred To Contact Diagnoses Malignant neoplasm of left breast in female, estrogen receptor negative, unspecified site of breast (HCC) (HCC) 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) Procedures DOXORUBIC HCL 10 MG VL CHEMO PACLITAXEL INJECTION CYCLOPHOSPHAMIDE 100 MG INJ CARBOPLATIN INJECTION INJ PEMBROLIZUMAB PALONOSETRON HCL FOSAPREPITANT INJECTION INJECTION, PEGFILGRASTIM, EXCLUDES BIOSIMILAR, 0.5 MG Hellen Zhu DO [address] [place] [address] [facility] [address] [place] [address] Referral ID Status Reason Start Date Expiration Date V isits Requested Visits Authorized [id number] Authorized 04/12/2023 12/23/2023 4 4 Reason Comments Waste Chopper - Other C1D1 Post Treat ment Call Reason Comments Waste Chopper - Other Toxicity Check Referral ID Status Reason Start Date Expiration Date V isits Requested Visits Authorized [id number] Waiting for Response 04/12/2023 12/23/2023 4 4 [...] FINANCIAL COUNSELOR Hellen Zhu, DO [address] [place] [address] [facility] [address] [place] [id number] Referral ID Status Reason Start Date Expiration Date Visits Requested Visits Authorized [id number] Pending Review PCP Requested Referral Auto-Generate d Referral Financial Clearance Required - OON Payor OON/Self Pay Override 04/03/2023 04/02/2024 1 1 Reason Comments Appointment Reason Comments Patient Update Reason Comments Patient Question Specialty Diagnoses / Procedures Referred By Contac t Referred To Contact Diagnoses Malignant neoplasm of overlapping sites of left breast in female, estrogen receptor negative (HCC) Breast cancer metastasized to axillary lymph node, left (HCC) Triple negative breast cancer (HCC) Procedures NIVESTYM Hellen Zhu, DO [address] [place] [address] [facility] [address] [place] [address] Referral ID Status Reason Start Date Expiration Date V isits Requested Visits Authorized [id number] Authorized 06/14/2023 08/01/2023 28 28 Reason Comments Patient Question Referral ID Status Reason Start Date Expiration Date Visits Requested Visits Authorized [id number] Pending Review Patient Cleared - Admin/Chair man/Directo r advise to proceed or did not respond 04/12/2023 01/10/2024 20 20 Reason Comments Research [email or web address] Consent Specialty Diagnoses / Procedures Referred By Contac [...] 0.5 MG Hellen Zhu, DO [address] [place] [address] [facility] [address] [place] [address] Referral ID Status Reason Start Date Expiration Date Visits Requested Visits Authorized [id number] Authorized Patient Cleared - Admin/Chairm an/Director advise to proceed or did not respond 04/12/2023 01/10/2024 99 99 Reason Comments Social Work Services Reason Comments Follow Up Specialty Diagnoses / Procedures Referred By [facility] Referred To Contact MR IMAGING Diagnoses Malignant neoplasm of overlapping sites of left breast in female, estrogen receptor negative (HCC) 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) Procedures MRI BREAST WO/W IVCON BILATERAL MRI BREAST WITHOUT&WITH CONTRAST W/CAD BILATERAL Hellen Zhu, DO [address] [place] [address] [place] [address] Referral ID Status Reason Start Date Expiration Date V isits Requested Visits Authorized [id number] Closed Auto-Generat ed Referral Patient Cleared - Admin/Chairm an/Director advise to proceed or did not respond 07/16/2023 08/14/2023 1 1 Reason Comments Established Patient Specialty Diagnoses / Procedures Referred By [facility] Referred To Contact HEMATOLOGY/ONCOLOGY Diagnoses LAB/OV/TX Procedures LAB/OV/TX Self [facility] [address] [place] [address] Reason Comments New Medication Antiemetic Specialty Diagnoses / Procedures Referred By [facility] Referred To Contact Diagnoses [...] 250 MG Hellen Zhu, DO [address] [place] [address] [facility] [address] [place] [address] Reason Comments Patient Update Reason Comments EKG Specialty Diagnoses / Procedures Referred By [facility] Referred To Contact HEMATOLOGY/ONCOLOGY Diagnoses C50.812,Z17.1 (ICD-10-CM) - Malignant neoplasm of overlapping sites of left breast in female, estrogen receptor negative (HCC) C50.912,C77.3 (ICD-10-CM) - Breast cancer metastasized to axillary lymph node, left (HCC) R00.2 (ICD-10-CM) - Palpitations Z51.81,Z79.899 (ICD-10-CM) - Encounter for monitoring cardiotoxic drug therapy M62.81 (ICD-10-CM) - Muscle weakness Procedures EKG Hellen Zhu, DO [address] [place] [address] [facility] [address] [place] [address] Referral ID Status Reason Start Date Expiration Date Visits Requested Visits Authorized [id number] Pending Review OON/Self Pay Override 07/22/2023 10/29/2024 1 1 Reason Comments Radiology US Specialty Diagnoses / Procedures [facility] Referred To Contact [facility] Diagnoses Malignant neoplasm of left breast in female, estrogen receptor negative, unspecified site of breast (HCC) Procedures US BREAST LTD LEFT US BREAST UNI REAL [place] [address] [place] [id number] [facility] [address] [place] [address] Referral ID Status Reason Start Date Expiration Date V isits Requested Visits Authorized [id number] Closed OON/Self Pay Override Financial Clearance Required [...] MOD MDM 30 [place] [address] [place] [address] [facility] [place] [address] [place] [address] Referral ID Status Reason Start Date Expiration Date V isits Requested Visits Authorized [id number] Closed OON/Self Pay Override Financial Clearance Required - OON Payor Patient cleared - OON Required Payment Collected 07/26/2023 03/24/2024 1 1 Reason Comments Insurance Authorization Reason Comments Follow Up Reason Comments Electronic Communication Reason Comments Recheck Specialty Diagnoses / Procedures Referred By Contac t Referred To Contact RADIATION ONCOLOGY Diagnoses BREAST CA Procedures RADIATION - PLAN TREATMENT Hellen Zhu, DO [address] [place] [address] [facility] [address] [place] [address] Referral ID Status Reason Start Date Expiration Date Visits Requested Visits Authorized [id number] New Request OON/Self Pay Override 10/18/2023 01/25/2025 1 1 Reason Onset Date Comments Simulation Request Form 10/29/2023 Reason Comments Patient Education Reason Comments Radiotherapy On-treatment Visit Specialty Diagnoses / Procedures Referred By Contac t Referred To Contact HEMATOLOGY/ONCOLOGY Diagnoses LAB/OV/TX Procedures LAB/OV/TX Labwork Self [facility] [address] [place] [address] Reason Comments Benefits Authorization Referral ID Status Reason Start Date Expiration Date Visits Requested Visits Authorized [id number] Authorized Patient Cleared - Admin/Chairm an/Director advise to proceed or did not respond 04/12/2023 12/02/2024 43 43 Specialty Diagnoses / Procedures Referred By Contac t Referred To Contact Radiation Oncology / RADIATION ONCOLOGY Diagnoses Location: W-ON TREATMENT VISIT Activity: WO-SIMULATION:SIMPLE Procedures SIMULATION Self Melony Davis MD [address] [place] [address] Referral ID Status Reason Start Date Expiration Date V isits Requested Visits Authorized [id number] Authorized 12/05/2023 03/04/2024 99 99 Reason Comments 04/19/2023 PORT PLACEMENT LEMON Reason Comments Established Patient Reason Comments avs 02/24/24 Reason Comments Patient Question calves are cramping Reason Comments Orders Reason Comments Orders CT SCAN 05/25/[address] Specialty Diagnoses / Procedures Referred By Contac t Referred To Contact CT IMAGING Diagnoses Breast cancer metastasized to axillary lymph node, left (HCC) Malignant neoplasm of overlapping sites of left breast in female, estrogen receptor negative (HCC) Procedures CT ABD/PEL W IVCON CT ABD & PELVIS W/CONTRAST Hellen Zhu DO [address] [place] [address] Phone: tel: fax: [place] [address] Referral ID Status Reason Start Date Expiration Date V isits Requested Visits Authorized [id number] Closed Auto-Generate d Referral 05/20/2024 06/19/2025 1 1 Specialty Diagnoses / Procedures Referred By Contac t Referred To Contact HEMATOLOGY/ONCOLOGY Diagnoses TREATMENT Procedures TREATMENT Self Hematology/Oncology [address] [place] [address] Phone: tel: fax: Referral ID Status Reason Start Date Expiration Date Visits Requested Visits Authorized [id number] Pending Review OON/Self Pay Override 04/15/2023 07/23/2024 1 1 Reason Comments Follow Up (DSRS) Sutures to be remove d after biopsy Reason Comments Waste Chopper - Other Starting treatm ent Specialty Diagnoses / Procedures Referred By Contvipin Referred To Contact Diagnoses Malignant neoplasm of left breast in female, estrogen receptor negative, unspecified site of breast (HCC) 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) Hellen Zhu, DO [address] [place] [address] Phone: tel: fax: Hellen Zhu, DO [address] [place] [address] Phone: tel: fax: Referral ID Status Reason Start Date Expiration Date V isits Requested Visits Authorized [id number] Authorized 07/30/2024 10/28/2024 99 99 Reason Comments Waste Chopper - Other C1D1 Post Treat ment Call (Keytruda/Paclitaxel) Reason Comments Waste Chopper - Other Treatment Reason Comments Patient Update Reason Comments Consult Breast Cancer Reason Comments New Patient Left breast cancer Reason Onset Date Comments Refill Request 11/02/2024 Specialty Diagnoses / Procedures Referred By Dary Referred To Contact Diagnoses 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) Hellen Zhu, DO [address] [place] [address] Phone: tel: fax: Hellen Zhu, DO [address] [place] [address] Phone: tel: fax: Reason Comments Follow Up Right axillaary lymph node biopsy Reason Comments Medication Problem Reason Comments Follow Up US CORE BX rt axilla ry Reason Comments avs 11/16 Specialty Diagnoses / Procedures [facility] Referred To Contact Diagnoses 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) Breast cancer metastasized to axillary lymph node, left (HCC) Triple negative breast cancer (HCC) Hellen Zhu, DO [address] [place] [address] Phone: tel: fax: Hematology/Oncology [address] [place] [address] Phone: tel: fax: Referral ID Status Reason Start Date Expiration Date V isits Requested Visits Authorized [id number] Authorized 11/17/2024 02/15/2025 99 99 Reason Comments Appointment AVS 12/08 Care Teams (unrecognized sec tion and content) Sandfill Operator Relationship Specialty Start Date End Date Ken Zarco MD PCP - General 01/15/08 Sandfill Operator Relationship Specialty Start Date End Date Ken Zarco MD PCP - General 01/15/08 Sandfill Operator Relationship Specialty Start Date End Date Ken Zarco MD PCP - General 01/15/08 Sandfill Operator Relationship Specialty Start Date End Date Ken Zarco MD PCP - General 01/15/08 Sandfill Operator Relationship Specialty Start Date End Date Ken Zarco MD PCP - General 01/15/08 Sandfill Operator Relationship Specialty Start Date End Date Ken Zarco MD PCP - General 01/15/08 Sandfill Operator Relationship Specialty Start Date End Date Ken Zarco MD PCP - General 01/15/08 Sandfill Operator Relationship Specialty Start Date End Date Ken [...] MD Attending Provider, Referri ng Provider Active Sandfill Operator Relationship Specialty Start Date End Date Ken Zarco MD PCP - General 01/15/08 Sandfill Operator Relationship Specialty Start Date End Date Ken Zarco MD PCP - General 01/15/08 Melony Davis MD, MD [address] [place] [address] Radiation Oncology 04/04/23 Team Status: Inactive Member Role Status Dates Dr. Hellen Lafleur MD Primary Care Provider Active Dr. Hellen Zhu DO Attending Provider, Referring Prov ider Active Team Status: Active Member Role Status Dates Dr. Hellen Lafleur MD Primary Care Provider Active Dr. Hellen Zhu DO Attending Provider, Referring Prov ider Active Sandfill Operator Relationship Specialty Start Date End Date Ken Zarco MD PCP - General 01/15/08 Melony Davis MD, [address] [facility] [address] Radiation Oncology 04/04/23 Team Status: Inactive Member [...] MD Attending Provider, Referr ing Provider Active Sandfill Operator Relationship Specialty Start Date End Date Ken Zarco MD PCP - General 01/15/08 Melony Davis MD, [address] [place] [address] Radiation Oncology 04/04/23 Hellen Zhu DO [address] [place] [address] Hematology/Oncology 04/16/23 Jael Gunter RN Specialty Waste Chopper Oncology 04/16/23 Sandfill Operator Relationship Specialty Start Date End Date Ken Zarco MD PCP - General 01/15/08 Melony Davis MD, [address] [place] [address] Radiation Oncology 04/04/23 Hellen Zhu DO [address] [place] [address] Hematology/Oncology 04/16/23 Jael Gunter RN Specialty Waste Chopper Oncology 04/16/23 Sandfill Operator Relationship Specialty Start Date End Date Ken Zarco MD PCP - General 01/15/08 Melony Davis MD [address] [place] [address] Radiation Oncology 04/04/23 Hellen Zhu DO [address] [place] [address] Hematology/Oncology 04/16/23 Jael Gunter RN Specialty Waste Chopper Oncology 04/16/23 Sandfill Operator Relationship Specialty Start Date End Date Ken Zarco MD PCP - General 01/15/08 Melony Davis MD [address] [place] [address] Radiation Oncology 04/04/23 Hellen Zhu DO [address] [place] [address] Hematology/Oncology 04/16/23 Jael Gunter RN Specialty Waste Chopper Oncology 04/16/23 Sandfill Operator Relationship Specialty Start Date End Date Ken Zarco MD PCP - General 01/15/08 Melony Davis MD [address] [place] [address] Radiation Oncology 04/04/23 Hellen Zhu DO [address] [place] [address] Hematology/Oncology 04/16/23 Jael Gunter RN Specialty Waste Chopper Oncology 04/16/23 Sandfill Operator Relationship Specialty Start Date End Date Ken Zarco MD PCP - General 01/15/08 Melony Davis MD [address] [place] [address] Radiation Oncology 04/04/23 Hellen Zhu DO [address] [place] [address] Hematology/Oncology 04/16/23 Jael Gunter RN Specialty Waste Chopper Oncology 04/16/23 Sandfill Operator Relationship Specialty Start Date End Date Ken Zarco MD PCP - General 01/15/08 Melony Davis MD [address] [place] [address] Radiation Oncology 04/04/23 Hellen Zhu DO [address] [place] [address] Hematology/Oncology 04/16/23 Jael Gunter RN Specialty Waste Chopper Oncology 04/16/23 Sandfill Operator Relationship Specialty Start Date End Date Ken Zarco MD PCP - General 01/15/08 Melony Davis MD [address] [place] [address] Radiation Oncology 04/04/23 Hellen Zhu DO [address] [place] [address] Hematology/Oncology 04/16/23 Jael Gunter RN Specialty Waste Chopper Oncology 04/16/23 Sandfill Operator Relationship Specialty Start Date End Date Ken Zarco MD PCP - General 01/15/08 Melony Davis MD [address] [place] [address] Radiation Oncology 04/04/23 Hellen Zhu DO [address] [place] [address] Hematology/Oncology 04/16/23 Jael Gunter RN Specialty Waste Chopper Oncology 04/16/23 Sandfill Operator Relationship Specialty Start Date End Date Ken Zarco MD PCP - General 01/15/08 Melony Davis MD [address] [place] [address] Radiation Oncology 04/04/23 Hellen Zhu DO [address] [place] [address] Hematology/Oncology 04/16/23 Jael Gunter RN Specialty Waste Chopper Oncology 04/16/23 Sandfill Operator Relationship Specialty Start Date End Date Ken Zarco MD PCP - General 01/15/08 Melony Davis MD [address] [place] [address] Radiation Oncology 04/04/23 Hellen Zhu DO [address] [place] [address] Hematology/Oncology 04/16/23 Jael Gunter RN Specialty Waste Chopper Oncology 04/16/23 Sandfill Operator Relationship Specialty Start Date End Date Ken Zarco MD PCP - General 01/15/08 Melony Davis MD [address] [place] [address] Radiation Oncology 04/04/23 Hellen Zhu DO [address] [place] [address] Hematology/Oncology 04/16/23 Jael Gunter RN Specialty Waste Chopper Oncology 04/16/23 Sandfill Operator Relationship Specialty Start Date End Date Ken Zarco MD PCP - General 01/15/08 Melony Davis MD [address] [place] [address] Radiation Oncology 04/04/23 Hellen Zhu DO [address] [place] [address] Hematology/Oncology 04/16/23 Jael Gunter RN Specialty Waste Chopper Oncology 04/16/23 Sandfill Operator Relationship Specialty Start Date End Date Ken Zarco MD PCP - General 01/15/08 Melony Davis MD [address] [place] [address] Radiation Oncology 04/04/23 Hellen Zhu DO [address] [place] [address] Hematology/Oncology 04/16/23 Jael Gunter RN Specialty Waste Chopper Oncology 04/16/23 Sandfill Operator Relationship Specialty Start Date End Date Ken Zarco MD PCP - General 01/15/08 Melony Davis MD [address] [place] [address] Radiation Oncology 04/04/23 Hellen Zhu DO [address] [place] [address] Hematology/Oncology 04/16/23 Jael Gunter RN Specialty Waste Chopper Oncology 04/16/23 Sandfill Operator Relationship Specialty Start Date End Date Ken Zarco MD PCP - General 01/15/08 Melony Davis MD [address] [place] [address] Radiation Oncology 04/04/23 Hellen Zhu DO [address] [place] [address] Hematology/Oncology 04/16/23 Jael Gunter RN Specialty Waste Chopper Oncology 04/16/23 Sandfill Operator Relationship Specialty Start Date End Date Ken Zarco MD PCP - General 01/15/08 Melony Davis MD [address] [place] [address] Radiation Oncology 04/04/23 Hellen Zhu DO [address] [place] [address] Hematology/Oncology 04/16/23 Jael Gunter RN Specialty Waste Chopper Oncology 04/16/23 Sandfill Operator Relationship Specialty Start Date End Date Ken Zarco MD PCP - General 01/15/08 Melony Davis MD [address] [place] [address] Radiation Oncology 04/04/23 Hellen Zhu DO [address] [place] [address] Hematology/Oncology 04/16/23 Jael Gunter RN Specialty Waste Chopper Oncology 04/16/23 Sandfill Operator Relationship Specialty Start Date End Date Ken Zarco MD PCP - General 01/15/08 Melony Davis MD [address] [place] [address] Radiation Oncology 04/04/23 Hellen Zhu DO [address] [place] [address] Hematology/Oncology 04/16/23 Jeal Gunter RN Specialty Waste Chopper Oncology 04/16/23 Sandfill Operator Relationship Specialty Start Date End Date Ken Zarco MD PCP - General 01/15/08 Melony Davis MD [address] [place] [address] Radiation Oncology 04/04/23 Hellen Zhu DO [address] [place] [address] Hematology/Oncology 04/16/23 Jael Gunter RN Specialty Waste Chopper Oncology 04/16/23 Sandfill Operator Relationship Specialty Start Date End Date Ken Zarco MD PCP - General 01/15/08 Melony Davis MD [address] [place] [address] Radiation Oncology 04/04/23 Hellen Zhu DO [address] [place] [address] Hematology/Oncology 04/16/23 Jael Gunter RN Specialty Waste Chopper Oncology 04/16/23 Sandfill Operator Relationship Specialty Start Date End Date Ken Zarco MD PCP - General 01/15/08 Melony Davis MD [address] [place] [address] Radiation Oncology 04/04/23 Hellen Zhu DO [address] [place] [address] Hematology/Oncology 04/16/23 Jael Gunter RN Specialty Waste Chopper Oncology 04/16/23 Sandfill Operator Relationship Specialty Start Date End Date Ken Zarco MD PCP - General 01/15/08 Melony Davis MD [address] [place] [address] Radiation Oncology 04/04/23 Hellen Zhu DO [address] [place] [address] Hematology/Oncology 04/16/23 Jael Gunter RN Specialty Waste Chopper Oncology 04/16/23 Sandfill Operator Relationship Specialty Start Date End Date Ken Zarco MD PCP - General 01/15/08 Melony Davis MD [address] [place] [address] Radiation Oncology 04/04/23 Hellen Zhu DO [address] [place] [address] Hematology/Oncology 04/16/23 Jael Gunter RN Specialty Waste Chopper Oncology 04/16/23 Sandfill Operator Relationship Specialty Start Date End Date Ken Zarco MD PCP - General 01/15/08 Melony Davis MD [address] [place] [address] Radiation Oncology 04/04/23 Hellen Zhu DO [address] [place] [address] Hematology/Oncology 04/16/23 Doup, Jael, RN Specialty Waste Chopper Oncology 04/16/23 Sandfill Operator Relationship Specialty Start Date End Date Ken Zarco MD PCP - General 01/15/08 Melony Davis MD [address] [place] [address] Radiation Oncology 04/04/23 Hellen Zhu DO [address] [place] [address] Hematology/Oncology 04/16/23 Jael Gunter RN Specialty Waste Chopper Oncology 04/16/23 Sandfill Operator Relationship Specialty Start Date End Date Ken Zarco MD PCP - General 01/15/08 Melony Davis MD [address] [place] [address] Radiation Oncology 04/04/23 Hellen Zhu DO [address] [place] [address] Hematology/Oncology 04/16/23 Jael Gunter RN Specialty Waste Chopper Oncology 04/16/23 Sandfill Operator Relationship Specialty Start Date End Date Ken Zarco MD PCP - General 01/15/08 Melony Davis MD [address] [place] [address] Radiation Oncology 04/04/23 Hellen Zhu DO [address] [place] [address] Hematology/Oncology 04/16/23 Jael Gunter RN Specialty Waste Chopper Oncology 04/16/23 Sandfill Operator Relationship Specialty Start Date End Date Ken Zarco MD PCP - General 01/15/08 Melony Davis MD [address] [place] [address] Radiation Oncology 04/04/23 Hellen Zhu DO [address] [place] [address] Hematology/Oncology 04/16/23 Jael Gunter RN Specialty Waste Chopper Oncology 04/16/23 Sandfill Operator Relationship Specialty Start Date End Date Ken Zarco MD PCP - General 01/15/08 Melony Davis MD [address] [place] [address] Radiation Oncology 04/04/23 Hellen Zhu DO [address] [place] [address] Hematology/Oncology 04/16/23 Jael Gunter RN Specialty Waste Chopper Oncology 04/16/23 Sandfill Operator Relationship Specialty Start Date End Date Ken Zarco MD PCP - General 01/15/08 Melony Davis MD [address] [place] [address] Radiation Oncology 04/04/23 Hellen Zhu DO [address] [place] [address] Hematology/Oncology 04/16/23 Jael Gunter RN Specialty Waste Chopper Oncology 04/16/23 Sandfill Operator Relationship Specialty Start Date End Date Ken Zarco MD PCP - General 01/15/08 Melony Davis MD [address] [place] [address] Radiation Oncology 04/04/23 Hellen Zhu DO [address] [place] [address] Hematology/Oncology 04/16/23 Jael Gunter RN Specialty Waste Chopper Oncology 04/16/23 Sandfill Operator Relationship Specialty Start Date End Date Ken Zarco MD PCP - General 01/15/08 Melony Davis MD [address] [place] [address] Radiation Oncology 04/04/23 Hellen Zhu DO [address] [place] [address] Hematology/Oncology 04/16/23 Jael Gunter RN Specialty Waste Chopper Oncology 04/16/23 Sandfill Operator Relationship Specialty Start Date End Date Ken Zarco MD PCP - General 01/15/08 Melony Davis MD [address] [place] [address] Radiation Oncology 04/04/23 Hellen Zhu DO [address] [place] [address] Hematology/Oncology 04/16/23 Jael Gunter RN Specialty Waste Chopper Oncology 04/16/23 Sandfill Operator Relationship Specialty Start Date End Date Ken Zarco MD PCP - General 01/15/08 Melony Davis MD [address] [place] [address] Radiation Oncology 04/04/23 Hellen Zhu DO [address] [place] [address] Hematology/Oncology 04/16/23 Jael Gunter RN Specialty Waste Chopper Oncology 04/16/23 Sandfill Operator Relationship Specialty Start Date End Date Ken Zarco MD PCP - General 01/15/08 Melony Davis MD [address] [place] [address] Radiation Oncology 04/04/23 Hellen Zhu DO [address] [place] [address] Hematology/Oncology 04/16/23 Jael Gunter RN Specialty Waste Chopper Oncology 04/16/23 Debbie Merino MD [address] [place] [address] Breast Diseases 09/06/23 09/06/23 Sandfill Operator Relationship Specialty Start Date End Date Ken Zarco MD PCP - General 01/15/08 Melony Davis MD [address] [place], [place] 3[address] [phone] Radiation Oncology 04/04/23 Hellen Zhu DO [address] [place], [place] 6[address] Hematology/Oncology 04/16/23 Jael Gunter RN Specialty Waste Chopper Oncology 04/16/23 Debbie Merino MD [address] [place] [address] 41181 Breast Diseases 09/06/23 09/06/23 Sandfill Operator Relationship Specialty Start Date End Date Ken Zarco MD PCP - General 01/15/08 Melony Davis MD [address] [place], [place] [address] [phone] Radiation Oncology 04/04/23 Hellen Zhu DO [address] [place] [address] Hematology/Oncology 04/16/23 Jael Gunter RN Specialty Waste Chopper Oncology 04/16/23 Sandfill Operator Relationship Specialty Start Date End Date Ken Zarco MD PCP - General 01/15/08 Melony Davis MD [address] [place] [address] Radiation Oncology 04/04/23 Hellen Zhu DO [address] [place] [address] Hematology/Oncology 04/16/23 Jael Gunter RN Specialty Waste Chopper Oncology 04/16/23 Sandfill Operator Relationship Specialty Start Date End Date Ken Zarco MD PCP - General 01/15/08 Melony Davis MD [address] [place] [address] Radiation Oncology 04/04/23 Hellen Zhu DO [address] [place], [place] 0[address] [phone] Hematology/Oncology 04/16/23 Jael Gunter RN Specialty Waste Chopper Oncology 04/16/23 Debbie Merino MD [address] [place] [address] 14525 Breast Diseases 10/18/23 Sandfill Operator Relationship Specialty Start Date End Date Ken Zarco MD PCP - General 01/15/08 Melony Davis MD [address] [place], [place] [address] [phone] Radiation Oncology 04/04/23 Hellen Zhu DO [address] [place] [address] Hematology/Oncology 04/16/23 Jael Gunter RN Specialty Waste Chopper Oncology 04/16/23 Debbie Merino MD [address] [place] [address] Breast Diseases 10/18/23 Sandfill Operator Relationship Specialty Start Date End Date Ken Zarco MD PCP - General 01/15/08 Melony Davis MD [address] [place] [address] Radiation Oncology 04/04/23 Hellen Zhu DO [address] [place] [address] Hematology/Oncology 04/16/23 Jael Gunter RN Specialty Waste Chopper Oncology 04/16/23 Debbie Merino MD [address] [place] [address] Breast Diseases 10/18/23 Sandfill Operator Relationship Specialty Start Date End Date Ken Zarco MD PCP - General 01/15/08 Melony Davis MD [address] [place] [address] Radiation Oncology 04/04/23 Hellen Zhu DO [address] [place] [address] Hematology/Oncology 04/16/23 Jael Gunter RN Specialty Waste Chopper Oncology 04/16/23 Debbie Merino MD [address] [place] [address] Breast Diseases 10/18/23 Sandfill Operator Relationship Specialty Start Date End Date Ken Zarco MD PCP - General 01/15/08 Melony Davis MD [address] [place] [address] Radiation Oncology 04/04/23 Hellen Zhu DO [address] [place] [address] Hematology/Oncology 04/16/23 Jael Gunter RN Specialty Waste Chopper Oncology 04/16/23 Debbie Merino MD [address] [place] [address] 68[address] Breast Diseases 10/18/23 Sandfill Operator Relationship Specialty Start Date End Date Ken Zarco MD PCP - General 01/15/08 Melony Davis MD [address] [place] [address] Radiation Oncology 04/04/23 Hellen Zhu DO [address] [place] [address] Hematology/Oncology 04/16/23 Jael Gunter RN Specialty Waste Chopper Oncology 04/16/23 Debbie Merino MD [address] [place] [address] 17559 Breast Diseases 10/18/23 Sandfill Operator Relationship Specialty Start Date End Date Ken Zarco MD PCP - General 01/15/08 Melony Davis MD [address] [place] [address] Radiation Oncology 04/04/23 Hellen Zhu DO [address] [place] [address] Hematology/Oncology 04/16/23 Jael Gunter RN Specialty Waste Chopper Oncology 04/16/23 Debbie Merino MD [address] [place] [address] Breast Diseases 10/18/23 Sandfill Operator Relationship Specialty Start Date End Date Ken Zarco MD PCP - General 01/15/08 Melony Davis MD [address] [place] [address] Radiation Oncology 04/04/23 Hellen Zhu DO [address] [place] [address] Hematology/Oncology 04/16/23 Jael Gunter RN Specialty Waste Chopper Oncology 04/16/23 Debbie Merino MD [address] [place] [address] [phone] Breast Diseases 10/18/23 Sandfill Operator Relationship Specialty Start Date End Date Ken Zarco MD PCP - General 01/15/08 Melony Davis MD [address] [place] [address] Radiation Oncology 04/04/23 Hellen Zhu DO [address] [place] [address] Hematology/Oncology 04/16/23 Jael Gunter RN Specialty Waste Chopper Oncology 04/16/23 Debbie Merino MD [address] [place] [address] 81823 Breast Diseases 10/18/23 Sandfill Operator Relationship Specialty Start Date End Date Ken Zarco MD PCP - General 01/15/08 Melony Davis MD [address] [place] [address] Radiation Oncology 04/04/23 Hellen Zhu DO [address] [place] [address] Hematology/Oncology 04/16/23 Jael Gunter RN Specialty Waste Chopper Oncology 04/16/23 Debbie Merino MD [address] [place] [address] 14263 Breast Diseases 10/18/23 Sandfill Operator Relationship Specialty Start Date End Date Ken Zarco MD PCP - General 01/15/08 Melony Davis MD [address] [place] [address] Radiation Oncology 04/04/23 Hellen Zhu DO [address] [place], [place] [address] Hematology/Oncology 04/16/23 Jael Gunter RN Specialty Waste Chopper Oncology 04/16/23 Debbie Merino MD [address] [place] [address] 90931 Breast Diseases 10/18/23 Sandfill Operator Relationship Specialty Start Date End Date Ken Zarco MD PCP - General 01/15/08 Melony Davis MD [address] [place], [place] [address] [phone] Radiation Oncology 04/04/23 Hellen Zhu DO [address] [place] [address] Hematology/Oncology 04/16/23 Jael Gunter RN Specialty Waste Chopper Oncology 04/16/23 Debbie Merino MD [address] [place] [address]3300 Breast Diseases 10/18/23 Sandfill Operator Relationship Specialty Start Date End Date Ken Zarco MD PCP - General 01/15/08 Melony Davis MD [address] [place] [address] Radiation Oncology 04/04/23 Hellen Zhu DO [address] [place], [place] [address]91 Hematology/Oncology 04/16/23 Jael Gunter RN Specialty Waste Chopper Oncology 04/16/23 Debbie Merino MD [address] [place] [address] 61842 Breast Diseases 10/18/23 Sandfill Operator Relationship Specialty Start Date End Date Ken Zarco MD PCP - General 01/15/08 Melony Davis MD [address] [place] [address] Radiation Oncology 04/04/23 Hellen Zhu DO [address] [place] [address] Hematology/Oncology 04/16/23 Jael Gunter RN Specialty Waste Chopper Oncology 04/16/23 Debbie Merino MD [address] [place] [address] 56468 Breast Diseases 10/18/23 Sandfill Operator Relationship Specialty Start Date End Date Ken Zarco MD PCP - General 01/15/08 Melony Davis MD [address] [place] [address] Radiation Oncology 04/04/23 Hellen Zhu DO [address] [place] [address] Hematology/Oncology 04/16/23 Jael Gunter RN Specialty Waste Chopper Oncology 04/16/23 Debbie Merino MD [address] [place] [address] Breast Diseases 10/18/23 Sandfill Operator Relationship Specialty Start Date End Date Ken Zarco MD PCP - General 01/15/08 Melony Davis MD [address] [place] [address] Radiation Oncology 04/04/23 Hellen Zhu DO [address] [place] [address] Hematology/Oncology 04/16/23 Jael Gunter RN Specialty Waste Chopper Oncology 04/16/23 Sandfill Operator Relationship Specialty Start Date End Date Ken Zarco MD PCP - General 01/15/08 Melony Davis MD [address] [place] [address] Radiation Oncology 04/04/23 Hellen Zhu DO [address] [place] [address] Hematology/Oncology 04/16/23 Jael Gunter RN Specialty Waste Chopper Oncology 04/16/23 Debbie Merino MD [address] [place] [address]76 Breast Diseases 10/18/23 Sandfill Operator Relationship Specialty Start Date End Date Ken Zarco MD PCP - General 01/15/08 Melony Davis MD [address] [place] [address] Radiation Oncology 04/04/23 Hellen Zhu DO [address] [place] [address] Hematology/Oncology 04/16/23 Jael Gunter RN Specialty Waste Chopper Oncology 04/16/23 Debbie Merino MD [address] [place] [address] Breast Diseases 10/18/23 Sandfill Operator Relationship Specialty Start Date End Date Ken Zarco MD PCP - General 01/15/08 Melony Davis MD [address] [place] [address] Radiation Oncology 04/04/23 Hellen Zhu DO [address] [place] [address] Hematology/Oncology 04/16/23 Jael Gunter RN Specialty Waste Chopper Oncology 04/16/23 Debbie Merino MD [address] [place] [address] Breast Diseases 09/06/23 09/06/23 Debbie Merino MD [address] [place] [address] Breast Diseases 10/18/23 Sandfill Operator Relationship Specialty Start Date End Date Ken Zarco MD PCP - General 01/15/08 Melony Davis MD [address] [place] [address] Radiation Oncology 04/04/23 Hellen Zhu DO [address] [place] [address] Hematology/Oncology 04/16/23 Jael Gunter RN Specialty Waste Chopper Oncology 04/16/23 Debbie Merino MD [address] [place] [address] 99818 Breast Diseases 10/18/23 Sandfill Operator Relationship Specialty Start Date End Date Ken Zarco MD PCP - General 01/15/08 Melony Davis MD [address] [place] [address] Radiation Oncology 04/04/23 Hellen Zhu DO [address] [place] [address] Hematology/Oncology 04/16/23 Jael Gunter RN Specialty Waste Chopper Oncology 04/16/23 Debbie Merino MD [address] [place] [address] [id number] Breast Diseases 10/18/23 Sandfill Operator Relationship Specialty Start Date End Date Ken Zarco MD PCP - General 01/15/08 Melony Davis MD [address] [place] [address] Radiation Oncology 04/04/23 Hellen Zhu DO [address] [place] [address] Hematology/Oncology 04/16/23 Jael Gunter RN Specialty Waste Chopper Oncology 04/16/23 Debbie Merino MD [address] [place] [address] 45522 Breast Diseases 10/18/23 Sandfill Operator Relationship Specialty Start Date End Date Ken Zarco MD PCP - General 01/15/08 Melony Davis MD [address] [place] [address] Radiation Oncology 04/04/23 Hellen Zhu DO [address] [place] [address] Hematology/Oncology 04/16/23 Jael Gunter RN Specialty Waste Chopper Oncology 04/16/23 Debbie Merino MD [address] [place] [address] 46386 Breast Diseases 10/18/23 Sandfill Operator Relationship Specialty Start Date End Date Ken Zarco MD PCP - General 01/15/08 Melony Davis MD [address] [place] [address] Radiation Oncology 04/04/23 Hellen Zhu DO [address] [place] [address] Hematology/Oncology 04/16/23 Jael Gunter RN Specialty Waste Chopper Oncology 04/16/23 Debbie Merino MD [address] [place] [address] Breast Diseases 10/18/23 Arben Mccann MD [address] [place], [place] [id number] General Surgery 04/27/24 Sandfill Operator Relationship Specialty Start Date End Date Ken Zarco MD PCP - General 01/15/08 Melony Davis MD [address] [place] [address] Radiation Oncology 04/04/23 Hellen Zhu DO [address] [place] [address] Hematology/Oncology 04/16/23 Jael Gunter RN Specialty Waste Chopper Oncology 04/16/23 Debbie Merino MD [address] [place] [address] Breast Diseases 10/18/23 Arben Mccann MD [address] [facility] [address] [place] [address] General Surgery 04/27/24 Sandfill Operator Relationship Specialty Start Date End Date Ken Zarco MD PCP - General 01/15/08 Melony Davis MD [address] [facility] [place] [address] Radiation Oncology 04/04/23 Hellen Zhu DO [address] [place] [address] Hematology/Oncology 04/16/23 Jael Gunter RN Specialty Waste Chopper Oncology 04/16/23 Debbie Merino MD [address] [place] [address]2525 Breast Diseases 10/18/23 Arben Mccann MD [address] [place] [address] General Surgery 04/27/24 Sandfill Operator Relationship Specialty Start Date End Date Ken Zarco MD PCP - General 01/15/08 Melony Davis MD [address] [facility] [place] [address] Radiation Oncology 04/04/23 Hellen Zhu DO [address] [place] [address] Hematology/Oncology 04/16/23 Jael Gunter RN Specialty Waste Chopper Oncology 04/16/23 Debbie Merino MD [address] [place] [address] Breast Diseases 10/18/23 Arben Mccann MD [address] [facility] [address] [place], [place] [address] General Surgery 04/27/24 Sandfill Operator Relationship Specialty Start Date End Date Ken Zarco MD PCP - General 01/15/08 Melony Davis MD [address] [facility] [place] [address] Radiation Oncology 04/04/23 Hellen Zhu DO [address] [place] [address] Hematology/Oncology 04/16/23 Jael Gunter RN Specialty Waste Chopper Oncology 04/16/23 Debbie Merino MD [address] [place] [address] 16671 Breast Diseases 10/18/23 Arben Mccann MD [address] [address] General Surgery 04/27/24 Team Status: Active Member [...] June 30, 2024 End: June 30, 2024 Sandfill Operator Relationship Specialty Start Date End Date Ken Zarco MD PCP - General 01/15/08 Melony Davis MD [address] [facility] [address] [place], [place] [id number] Radiation Oncology 04/04/23 Hellen Zhu DO [address] [facility] [place] [address] Hematology/Oncology 04/16/23 Jael Gunter, EMETERIO Specialty Waste Chopper Oncology 04/16/23 Debbie Merino MD [address] [place] [address] Breast Diseases 10/18/23 [place] [address] [place] [address] [id number] General Surgery 04/27/24 Sandfill Operator Relationship Specialty Start Date End Date Ken Zarco MD PCP - General 01/15/08 Melony Davis MD [address] [facility] [place], [place] [address] Radiation Oncology 04/04/23 Hellen Zhu DO [address] [facility] [place] [address] Hematology/Oncology 04/16/23 Jael Gunter RN Specialty Waste Chopper Oncology 04/16/23 Debbie Merino MD [address] [place] [address] Breast Diseases 10/18/23 Arben Mccann MD [address] [place], [place] 847981 General Surgery 04/27/24 Sandfill Operator Relationship Specialty Start Date End Date Ken Zarco MD PCP - General 01/15/08 Melony Davis MD [address] [place] [address] Radiation Oncology 04/04/23 Hellen Zhu DO [address] [facility] [place] [address] Hematology/Oncology 04/16/23 Jael Gunter RN Specialty Waste Chopper Oncology 04/16/23 Debbie Merino MD [address] [place] [address] Breast Diseases 10/18/23 Arben Mccann MD [address] [place] [address] General Surgery 04/27/24 Sandfill Operator Relationship Specialty Start Date End Date Ken Zarco MD PCP - General 01/15/08 Melony Davis MD [address] [place] [address] Radiation Oncology 04/04/23 Hellen Zhu DO [address] [place] [address] Hematology/Oncology 04/16/23 Jael Gunter RN Specialty Waste Chopper Oncology 04/16/23 Debbie Merino MD [address] [place] [address] Breast Diseases 10/18/23 Arben Mccann MD [address] [place] [address] General Surgery 04/27/24 Sandfill Operator Relationship Specialty Start Date End Date Ken Zarco MD PCP - General 01/15/08 Melony Davis MD [address] [place] [address] Radiation Oncology 04/04/23 Hellen Zhu DO [address] [place] [address] Hematology/Oncology 04/16/23 Jael Gunter RN Specialty Waste Chopper Oncology 04/16/23 Debbie Merino MD [address] [place] [address] Breast Diseases 10/18/23 Arben Mccann MD [address] [facility] [address] [place], [place] 517601 General Surgery 04/27/24 Sandfill Operator Relationship Specialty Start Date End Date Ken Zarco MD PCP - General 01/15/08 Melony Davis MD [address] [place] [address] Radiation Oncology 04/04/23 Hellen Zhu DO [address] [place] [address] Hematology/Oncology 04/16/23 Jael Gunter RN Specialty Waste Chopper Oncology 04/16/23 Debbie Merino MD [address] [place] [address] 27[address] Breast Diseases 10/18/23 Arben Mccann MD [address] [facility] [address] [place] [address] General Surgery 04/27/24 Sandfill Operator Relationship Specialty Start Date End Date Ken Zarco MD PCP - General 01/15/08 Melony Davis MD [address] [place] [address] Radiation Oncology 04/04/23 Hellen Zhu DO [address] [place] [address] Hematology/Oncology 04/16/23 Jael Gunter RN Specialty Waste Chopper Oncology 04/16/23 Debbie Merino MD [address] [place] [address] Breast Diseases 10/18/23 Arben Mccann MD [address] [facility] 102 [place], [place] 803001 General Surgery 04/27/24 Team Status: Inactive Member Role Status Dates Dr. Hellen Lafleur MD Primary Care Provider Active Start: August 04, 2024 End: August 04, 2024 Dr. Hellen Zhu DO Attending Provider Active St art: August 04, 2024 End: August 04, 2024 Dr. Hellen Zhu DO Referring Provider Active art: August 04, 2024 End: August 04, 2024 Sandfill Operator Relationship Specialty Start Date End Date Ken Zarco MD PCP - General 01/15/08 Melony Davis MD [address] [place], [place] [id number] Radiation Oncology 04/04/23 Hellen Zhu DO [address] [place], [place] 380[address] Hematology/Oncology 04/16/23 Jael Gunter RN Specialty Waste Chopper Oncology 04/16/23 Debbie Merino MD [address] [place] [address] Breast Diseases 10/18/23 Arben Mccann MD [address] [facility] [address] [place], [place] 271221 General Surgery 04/27/24 Sandfill Operator Relationship Specialty Start Date End Date Ken Zarco MD PCP - General 01/15/08 Melony Davis MD [address] [place] [address] Radiation Oncology 04/04/23 Hellen Zhu DO [address] [place] [address] Hematology/Oncology 04/16/23 Jael Gunter RN Specialty Waste Chopper Oncology 04/16/23 Debbie Merino MD [address] [place] [address] [id number] Breast Diseases 10/18/23 Arben Mccann MD [address] 840751 General Surgery 04/27/24 Sandfill Operator Relationship Specialty Start Date End Date Ken Zarco MD PCP - General 01/15/08 Melony Davis MD [address] [place] [address] Radiation Oncology 04/04/23 Hellen Zhu DO [address] [place] [address] Hematology/Oncology 04/16/23 Jael Gunter RN Specialty Waste Chopper Oncology 04/16/23 Debbie Merino MD [address] [place] [address] Breast Diseases 10/18/23 Arben Mccann MD [address] [facility] [address] [place] [address] General Surgery 04/27/24 Sandfill Operator Relationship Specialty Start Date End Date Ken Zarco MD PCP - General 01/15/08 Melony Davis MD [address] [place] [address] Radiation Oncology 04/04/23 Hellen Zhu DO [address] [place] [address] Hematology/Oncology 04/16/23 Jael Gunter RN Specialty Waste Chopper Oncology 04/16/23 Debbie Merino MD [address] [place] [address] Breast Diseases 10/18/23 Arben Mccann MD [address] [facility] [address] [place] [address] General Surgery 04/27/24 Sandfill Operator Relationship Specialty Start Date End Date Ken Zarco MD PCP - General 01/15/08 Melony Davis MD [address] [place] [address] Radiation Oncology 04/04/23 Hellen Zhu DO [address] [place] [address] Hematology/Oncology 04/16/23 Jael Gunter RN Specialty Waste Chopper Oncology 04/16/23 Debbie Merino MD [address] [place] [address] 17427 Breast Diseases 10/18/23 Arben Mccann MD [address] 142531 General Surgery 04/27/24 Sandfill Operator Relationship Specialty Start Date End Date Ken Zarco MD PCP - General 01/15/08 Melony Davis MD [address] [place] [address] Radiation Oncology 04/04/23 Hellen Zhu DO [address] [place] [address] Hematology/Oncology 04/16/23 Jael Gunter RN Specialty Waste Chopper Oncology 04/16/23 Debbie Merino MD [address] [place] [address] 77[address] Breast Diseases 10/18/23 Arben Mccann MD [address] 743371 General Surgery 04/27/24 Team Status: Active Member [...] September 17, 2024 End: September 17, 2024 Sandfill Operator Relationship Specialty Start Date End Date Ken Zarco MD PCP - General 01/15/08 Melony Davis MD [address] [facility] [place], [place] [id number] Radiation Oncology 04/04/23 Hellen Zhu DO [address] [facility] [place] [address] Hematology/Oncology 04/16/23 Jael Gunter RN Specialty Waste Chopper Oncology 04/16/23 Debbie Merino MD [address] [place] [address] Breast Diseases 10/18/23 [place] [address] [place] [address] [address] General Surgery 04/27/24 Sandfill Operator Relationship Specialty Start Date End Date Ken Zarco MD PCP - General 01/15/08 Melony Davis MD [address] [place], [place] 238[address] [phone] Radiation Oncology 04/04/23 Hellen Zhu DO [address] [place] [address] Hematology/Oncology 04/16/23 Jael Gunter RN Specialty Waste Chopper Oncology 04/16/23 Debbie Merino MD [address] [place] [address] Breast Diseases 10/18/23 Arben Mccann MD [address] [id number] General Surgery 04/27/24 Sandfill Operator Relationship Specialty Start Date End Date Ken Zarco MD PCP - General 01/15/08 Melony Davis MD [address] [place] [address] Radiation Oncology 04/04/23 Hellen Zhu DO [address] [place] [address] Hematology/Oncology 04/16/23 Jael Gunter RN Specialty Waste Chopper Oncology 04/16/23 Debbie Merino MD [address] [place] [address], [place] [address] Breast Diseases 10/18/23 Arben Mccann MD [address] [address] General Surgery 04/27/24 Sandfill Operator Relationship Specialty Start Date End Date Ken Zarco MD PCP - General 01/15/08 Melony Davis MD [address] [facility] [place] [address] Radiation Oncology 04/04/23 Hellen Zhu DO [address] [facility] [place] [address] Hematology/Oncology 04/16/23 Jael Gunter, EMETERIO Specialty Waste Chopper Oncology 04/16/23 Debbie Merino MD [address] [place] [address], [place] [address] Breast Diseases 10/18/23 Arben Mccann MD [address] [address] General Surgery 04/27/24 Sandfill Operator Relationship Specialty Start Date End Date Ken Zarco MD PCP - General 01/15/08 Melony Davis MD [address] [facility] [place] [address] Radiation Oncology 04/04/23 Hellen Zhu DO [address] [facility] [place] [address] Hematology/Oncology 04/16/23 Jael Gunter RN Specialty Waste Chopper Oncology 04/16/23 Debbie Merino MD [address] [place] [address] Breast Diseases 10/18/23 Arben Mccann MD [address] [place], [place] 416[address] General Surgery 04/27/24 Sandfill Operator Relationship Specialty Start Date End Date Ken Zarco MD PCP - General 01/15/08 Melony Davis MD [address] [place] [address] Radiation Oncology 04/04/23 Hellen Zhu DO [address] [facility] [address] Hematology/Oncology 04/16/23 Jael Gunter RN Specialty Waste Chopper Oncology 04/16/23 Debbie Merino MD [address] [place] [address] Breast Diseases 10/18/23 Arben Mccann MD [address] [place] [address] General Surgery 04/27/24 Sandfill Operator Relationship Specialty Start Date End Date Ken Zarco MD PCP - General 01/15/08 Melony Davis MD [address] [place] [address] Radiation Oncology 04/04/23 Hellen Zhu DO [address] [place] [address] Hematology/Oncology 04/16/23 Jael Gunter RN Specialty Waste Chopper Oncology 04/16/23 Debbie Merino MD [address] [place] [address] [phone] Breast Diseases 10/18/23 Arben Mccann MD [address] [address] General Surgery 04/27/24 Sandfill Operator Relationship Specialty Start Date End Date Ken Zarco MD PCP - General 01/15/08 Melony Davis MD [address] [place] [address] Radiation Oncology 04/04/23 Hellen Zhu DO [address] [place] [address] Hematology/Oncology 04/16/23 Jael Gunter RN Specialty Waste Chopper Oncology 04/16/23 Debbie Merino MD [address] [place] [address] [phone] Breast Diseases 10/18/23 Arben Mccann MD [address] [facility] 102 [place] [address] General Surgery 04/27/24 Sandfill Operator Relationship Specialty Start Date End Date Ken Zaroc MD PCP - General 01/15/08 Melony Davis MD [address] [place] [address] Radiation Oncology 04/04/23 Hellen Zhu DO [address] [place] [address] Hematology/Oncology 04/16/23 Jael Gunter RN Specialty Waste Chopper Oncology 04/16/23 Debbie Merino MD [address] [place] [address]40 Breast Diseases 10/18/23 Arben Mccann MD [address] [facility] 102 [place] [address] General Surgery 04/27/24 Sandfill Operator Relationship Specialty Start Date End Date Ken Zarco MD PCP - General 01/15/08 Melony Davis MD [address] [place] [address] Radiation Oncology 04/04/23 Hellen Zhu DO [address] [place] [address] Hematology/Oncology 04/16/23 Jael Gunter RN Specialty Waste Chopper Oncology 04/16/23 Debbie Merino MD [address] [place] [address] Breast Diseases 10/18/23 Arben Mccann MD [address] [address] General Surgery 04/27/24 Sandfill Operator Relationship Specialty Start Date End Date Ken Zarco MD PCP - General 01/15/08 Melony Davis MD [address] [facility] [place] [address] Radiation Oncology 04/04/23 Hellen Zhu DO [address] [facility] [place] [address] Hematology/Oncology 04/16/23 Jael Gunter RN Specialty Waste Chopper Oncology 04/16/23 Debbie Merino MD [address] [place] [address]83 Breast Diseases 10/18/23 Arben Mccann MD [address] [address] General Surgery 04/27/24 Sandfill Operator Relationship Specialty Start Date End Date Ken Zarco MD PCP - General 01/15/08 Melony Davis MD [address] [facility] [place] [address] Radiation Oncology 04/04/23 Hellen Zhu DO [address] [place] [address] Hematology/Oncology 04/16/23 Jael Gunter RN Specialty Waste Chopper Oncology 04/16/23 Debbie Merino MD [address] [place] [address] Breast Diseases 10/18/23 Arben Mccann MD [address] [place], [place] 123161 General Surgery 04/27/24 Sandfill Operator Relationship Specialty Start Date End Date Ken Zarco MD PCP - General 01/15/08 Melony Davis MD [address] [place] [address] Radiation Oncology 04/04/23 Hellen Zhu DO [address] [place] [address] Hematology/Oncology 04/16/23 Jael Gunter RN Specialty Waste Chopper Oncology 04/16/23 Debbie Merino MD [address] [place] [address] Breast Diseases 10/18/23 Arben Mccann MD [address] [facility] 102 [place] [address] General Surgery 04/27/24 Team Status: Inactive Member Role/Relationship Status Dates Dr. Hellen Lafleur MD Primary Care Provider Active Start: October 13, 2024 End: October 13, 2024 Santana Arellano FURNACE HAND, FURNACE HAND-C Attending Provider Active Start: October 13, 2024 End: October 13, 2024 Santana Arellano FURNACE HAND, FURNACE HAND-C Referring Provider Active Start: October 13, 2024 End: October 13, 2024 Team Status: Active Member Role/Relationship Status Dates Dr. Hellen Lafleur MD Primary Care Provider Active Start: October 13, 2024 Santana Arellano FURNACE HAND, FURNACE HAND-C Referring Provider Active Start: October 13, 2024 Santana Arellano FURNACE HAND, FURNACE HAND-C Other Provider Active St art: October 13, 2024 Dr. Bishnu Harrison MD Attending Provider Active Start: October 13, 2024 Sandfill Operator Relationship Specialty Start Date End Date Ken Zarco MD PCP - General 01/15/08 Melony Davis MD [address] [place] [address] Radiation Oncology 04/04/23 Hellen Zhu DO [address] [place], [place] [address]99751 Hematology/Oncology 04/16/23 Jael Gunter RN Specialty Waste Chopper Oncology 04/16/23 Debbie Merino MD [address] [place] [address] Breast Diseases 10/18/23 Arben Mccann MD [address] [facility] [address] [id number] General Surgery 04/27/24 Sandfill Operator Relationship Specialty Start Date End Date Ken Zarco MD PCP - General 01/15/08 Melony Davis MD [address] [place] [address] Radiation Oncology 04/04/23 Hellen Zhu DO [address] [place] [address] Hematology/Oncology 04/16/23 Jael Gunter RN Specialty Waste Chopper Oncology 04/16/23 Debbie Merino MD [address] [place] [address] Breast Diseases 10/18/23 Arben Mccann MD [address] [facility] [address] [place] [address] General Surgery 04/27/24 Sandfill Operator Relationship Specialty Start Date End Date Ken Zarco MD PCP - General 01/15/08 Melony Davis MD [address] [place] [address] Radiation Oncology 04/04/23 Hellen Zhu DO [address] [place] [address] Hematology/Oncology 04/16/23 Jael Gunter RN Specialty Waste Chopper Oncology 04/16/23 Debbie Merino MD [address] [place] [address] [place] [address] Breast Diseases 10/18/23 Arben Mccann MD [address] [facility] [address] [place] [address] General Surgery 04/27/24 Sandfill Operator Relationship Specialty Start Date End Date Ken Zarco MD PCP - General 01/15/08 Melony Davis MD [address] [place] [address] Radiation Oncology 04/04/23 Hellen Zhu DO [address] [place] [address] Hematology/Oncology 04/16/23 Jael Gunter RN Specialty Waste Chopper Oncology 04/16/23 [place] [address] [place] [address] Breast Diseases 10/18/23 [place] [address] [place] [address] [phone] General Surgery 04/27/24 Sandfill Operator Relationship Specialty Start Date End Date Ken Zarco MD PCP - General 01/15/08 Melony Davis MD [address] [place] [address] Radiation Oncology 04/04/23 Hellen Zhu DO [address] [place] [address] Hematology/Oncology 04/16/23 Jael Gunter RN Specialty Waste Chopper Oncology 04/16/23 Debbie Merino MD [address] [place] [address]86 Breast Diseases 10/18/23 Arben Mccann MD [address] [facility] [address] [place] [address] General Surgery 04/27/24 Sandfill Operator Relationship Specialty Start Date End Date Ken Zarco MD PCP - General 01/15/08 Melony Davis MD [address] [facility] [place] [address] Radiation Oncology 04/04/23 Hellen Zhu DO [address] [facility] [place] [address] Hematology/Oncology 04/16/23 Jael Gunter, EMETERIO Specialty Waste Chopper Oncology 04/16/23 Debbie Merino MD [address] [place] [address] Breast Diseases 10/18/23 Arben Mccann MD [address] [facility] [address] [place] [address] General Surgery 04/27/24 Sandfill Operator Relationship Specialty Start Date End Date Ken Zarco MD PCP - General 01/15/08 Melony Davis MD [address] [facility] [place] [address] Radiation Oncology 04/04/23 Hellen Zhu DO [address] [place] [address] Hematology/Oncology 04/16/23 Jael Gunter RN Specialty Waste Chopper Oncology 04/16/23 Debbie Merino MD [address] [place] [address] Breast Diseases 10/18/23 Arben Mccann MD [address] [address] [place], [place] 450061 General Surgery 04/27/24 Sandfill Operator Relationship Specialty Start Date End Date Ken Zarco MD PCP - General 01/15/08 Melony Davis MD [address] [place] [address] Radiation Oncology 04/04/23 Hellen Zhu DO [address] [place] [address] Hematology/Oncology 04/16/23 Jael Gunter RN Specialty Waste Chopper Oncology 04/16/23 Debbie Merino MD [address] [place] [address] Breast Diseases 10/18/23 Arben Mccann MD [address] [facility] [address] [place] [address] General Surgery 04/27/24 Sandfill Operator Relationship Specialty Start Date End Date Ken Zarco MD PCP - General 01/15/08 Melony Davsi MD [address] [facility] [place] [address] Radiation Oncology 04/04/23 Hellen Zhu DO [address] [place] [address] Hematology/Oncology 04/16/23 Jael Gunter RN Specialty Waste Chopper Oncology 04/16/23 Debbie Merino MD [address] [place] [address] 9[address]38 Breast Diseases 10/18/23 Arben Mccann MD [address] [place] [address]96 General Surgery 04/27/24 Sandfill Operator Relationship Specialty Start Date End Date Ken Zarco MD PCP - General 01/15/08 Melony Davis MD [address] [facility] [place] [address] Radiation Oncology 04/04/23 Hellen Zhu DO [address] [place] [address] Hematology/Oncology 04/16/23 Jael Gunter RN Specialty Waste Chopper Oncology 04/16/23 Debbie Merino MD [address] [place] [address] Breast Diseases 10/18/23 Arben Mccann MD [address] [facility] [address] [place] [address] General Surgery 04/27/24 Sandfill Operator Relationship Specialty Start Date End Date Ken Zarco MD PCP - General 01/15/08 Melony Davis MD [address] [place] [address] Radiation Oncology 04/04/23 Hellen Zhu DO [address] [place] [address] Hematology/Oncology 04/16/23 Jael Gunter RN Specialty Waste Chopper Oncology 04/16/23 Debbie Merino MD [address] [place] [address]189 Breast Diseases 10/18/23 Arben Mccann MD [address] [facility] [address] [place] [address] General Surgery 04/27/24 Sandfill Operator Relationship Specialty Start Date End Date Ken Zarco MD PCP - General 01/15/08 Melony Davis MD [address] [place] [address] Radiation Oncology 04/04/23 Hellen Zhu DO [address] [place] [address] Hematology/Oncology 04/16/23 Jael Gunter RN Specialty Waste Chopper Oncology 04/16/23 Debbie Merino MD [address] [place] [address] Breast Diseases 10/18/23 Arben Mccann MD [address] [facility] [address] [address] General Surgery 04/27/24 Sandfill Operator Relationship Specialty Start Date End Date Ken Zarco MD PCP - General 01/15/08 Melony Davis MD [address] [place] [address] Radiation Oncology 04/04/23 Hellen Zhu DO [address] [place] [address] Hematology/Oncology 04/16/23 Jael Gunter RN Specialty Waste Chopper Oncology 04/16/23 Debbie Merino MD [address] [place] [address], [place] [address] Breast Diseases 10/18/23 Arben Mccann MD [address] [address] General Surgery 04/27/24 Sandfill Operator Relationship Specialty Start Date End Date Ken Zarco MD PCP - General 01/15/08 Melony Davis MD [address] [place] [address] Radiation Oncology 04/04/23 Hellen Zhu DO [address] [place] [address] Hematology/Oncology 04/16/23 Jael Gunter RN Specialty Waste Chopper Oncology 04/16/23 Debbie Merino MD [address] [place] [address] Breast Diseases 10/18/23 Arben Mccann MD [address] 748461 General Surgery 04/27/24 Sandfill Operator Relationship Specialty Start Date End Date Ken Zarco MD PCP - General 01/15/08 Melony Davis MD [address] [place] [address] Radiation Oncology 04/04/23 Hellen Zhu DO [address] [place] [address] Hematology/Oncology 04/16/23 Jael Gunter RN Specialty Waste Chopper Oncology 04/16/23 Debbie Merino MD [address] [place] [address] Breast Diseases 10/18/23 Arben Mccann MD [address] [address] General Surgery 04/27/24 Sandfill Operator Relationship Specialty Start Date End Date Ken Zarco MD PCP - General 01/15/08 Melony Davis MD [address] [place] [address] Radiation Oncology 04/04/23 Hellen Zhu DO [address] [place] [address] Hematology/Oncology 04/16/23 Jael Gunter RN Specialty Waste Chopper Oncology 04/16/23 Debbie Merino MD [address] [place] [address]10 Breast Diseases 10/18/23 [place] [address] [place] [address] 799171 General Surgery 04/27/24 Sandfill Operator Relationship Specialty Start Date End Date Ken Zarco MD PCP - General 01/15/08 Melony Davis MD [address] [place] [address] Radiation Oncology 04/04/23 Hellen Zhu DO [address] [place] [address] Hematology/Oncology 04/16/23 Jael Gunter RN Specialty Waste Chopper Oncology 04/16/23 Debbie Merino MD [address] [place] [address] Breast Diseases 10/18/23 Arben Mccann MD [address] [facility] 102 [place], [place] 293521 General Surgery 04/27/24 Sandfill Operator Relationship Specialty Start Date End Date Ken Zarco MD PCP - General 01/15/08 Melony Davis MD [address] [place] [address] Radiation Oncology 04/04/23 Hellen hZu DO [address] [place] [address] Hematology/Oncology 04/16/23 Jael Gunter RN Specialty Waste Chopper Oncology 04/16/23 Debbie Merino MD [address] [place] [address] Breast Diseases 10/18/23 Arben Mccann MD [address] [facility] 102 [place] [address] General Surgery 04/27/24 Sandfill Operator Relationship Specialty Start Date End Date Ken Zarco MD PCP - General 01/15/08 Melony Davis MD [address] [place] [address] Radiation Oncology 04/04/23 Hellen Zhu DO [address] [place] [address] Hematology/Oncology 04/16/23 Jael Gunter RN Specialty Waste Chopper Oncology 04/16/23 Debbie Merino MD [address] [place] [address]694 Breast Diseases 10/18/23 Arben Mccann MD [facility] [facility] [address] 313021 General Surgery 04/27/24 Sandfill Operator Relationship Specialty Start Date End Date Ken Zarco MD PCP - General 01/15/08 Melony Davis MD [address] [place], [place] 644761 Radiation Oncology 04/04/23 Hellen Zhu DO [address] [place], [place] 270281 Hematology/Oncology 04/16/23 Jael Gunter RN Specialty Waste Chopper Oncology 04/16/23 Debbie Merino MD [address] [place] [address]20 Breast Diseases 10/18/23 Arben Mccann MD 176 [facility] [address] 257951 General Surgery 04/27/24 Team Status: Inactive Member [...] 13, 2024 End: October 13, 2024 Santana Cliffordorrow FURNACE HAND, [facility]CE [facility]-C Attending Provider Active Start: October 13, 2024 End: October 13, 2024 Santana McMorrow FURNACE HAND, F[facility]NACE [facility]-C Referring Provider Active Start: October 13, 2024 End: October 13, 2024 Team Status: Active Member Role/Relationship Status Dates Dr. Hellen Lafleur MD Primary Care Provider Active Start: October 13, 2024 Santana McMorrow FURNACE HAND, F[facility]CE HAND-C Referring Provider Active Start: October 13, 2024 Santana McMorrow FURNACE HAND, FURNACE HAND-C Other Provider Active St art: October 13, [...] November 19, 2024 End: November 19, 2024 Team Status: Active Member Role/Relationship Status Dates Dr. Hellen Lafleur MD Primary care physician Active Team Status: Inactive Member Role/Relationship Status Dates Dr. Hellen Lafleur MD Primary care physician Active Start: October 13, 2024 End: October 13, 2024 Santana Wuow FURNACE HAND, FURNACE HAND-C Attending physician Active Start: October 13, 2024 End: October 13, 2024 Santana Cliffordorrow FURNACE HAND, F[facility]NACE HAND-C Referring Provider Active Start: October 13, 2024 End: October 13, 2024 Team Status: Active Member Role/Relationship Status Dates Dr. Hellen Lafleur MD Primary care physician Active Start: October 13, 2024 Santana Hortonorrlico FURNACE HAND, F[facility]NACE HAND-C Referring Provider Active Start: October 13, 2024 Santana Hortonorrlico FURNACE HAND, FURNACE HAND-C Nurse Practitioner Active Start: October 13, 2024 Dr. Bishnu Harrison MD Attending physician Active Start: October 13, 2024 Team Status: Inactive Member Role/Relationship Status Dates Dr. Hellen Lafleur MD Primary care physician Active Start: November 19, 2024 End: November 19, 2024 Dr. Hellen Zhu DO Attending physician Active S tart: November 19, 2024 End: November 19, 2024 Dr. Hellen Zhu DO Referring Provider Active St art: November 19, 2024 End: November 19, 2024 Team Status: Inactive Member Role/Relationship Status Dates Dr. Hellen Lafleur MD Primary care physician Active Start: January 10, 2025 End: January 10, 2025 Dr. Ajay Burnett DO Attending physician Active Start: January 10, 2025 End: January 10, 2025 Dr. Ajay Burnett DO Emergency Department Physician Active Start: January 10, 2025 End: January 10, 2025 Team Status: Inactive Member Role/Relationship Status Dates Dr. Hellen Lafleur MD Primary care physician Active Start: January 12, 2025 End: January 12, 2025 Dr. Hellen Zhu DO Attending physician Active S tart: January 12, 2025 End: January 12, 2025 Dr. Hellen Zhu DO Referring Provider Active St art: January 12, 2025 End: January 12, 2025 Goals (unrecognized section and content) Goals may [...] alternate section No data available for this sectionGoals may be documented in an alternate section Inactive Administered Medications - up to [...] mg, INTRAVENOUS, ONCE, 1 dose, On [place] 2/1/24 at 0830, Flush IV line with NS prior to and following administration. Given 04/25/2023 8:31 AM EST 0.25 mg pembrolizumab 200 mg in NaCl 0.9% 66 mL (KEYTRUDA) 200 mg, INTRAVENOUS, Administer over 30 Minutes, ONCE, 1 dose, On Sat04/25/23 at 0900, Approx Total Volume:exp 89904/29/23 (room [...] 1 dose, On Sat05/17/23 at 0930, exp 0905/18/23 (room temp) Hazardous Chemotherapy Drug: Use appropriate [...] 300 mcg, SUBCUTANEOUS, ONCE, 1 dose, On Sat07/08/23 at 0900, Refrigerate - Protect from light Given 07/08/2023 8:54 AM EDT 300 mcg Arm, Right Inactive Administered Medications - up to 3 most recent administrations Medication Order MAR Action Action Date Dose Rate Site filgrastim biosimilar 300 mcg injection (ZARXIO) 300 mcg, SUBCUTANEOUS, ONCE, 1 dose, On Sat07/09/23 at 1130, Refrigerate - Protect from light [...] 300 mcg, SUBCUTANEOUS, ONCE, 1 dose, On Sat07/11/23 at 1430, Refrigerate - Protect from light [...] 1 dose, On Sat06/28/23 at 1030, exp 1100 06/29/23 (room temp) Hazardous Chemotherapy Drug: Use appropriate [...] BE BASED ON THE PRIMARY CLINICAL RECORDS. [facility]. provides no warranty or guarantee of the accuracy or completeness of information in this document.
--- NOTE | 2025-03-09 07:00 | PET_ITS ---
PROCEDURE: PET/CT TUMOR BASE -THIGH SUBS 03/09/2025 REASON FOR EXAM: 64 y/o F with left breast carcinoma, with overlap by sites metastatic disease to the skin and left axilla. History response to psammomatous TECHNIQUE: Procedure Code: [id number] Modality: PT Procedure: PET/CT TUMOR BASE -THIGH SUBS Following the intravenous administration of radionucleotide, image acquisition on a dedicated PET/CT unit was performed at one hour post injection. A preliminary CT study encompassing the Skull base, neck, chest, abdomen, pelvis, and proximal thighs was performed for purposes of attenuation correction and anatomic localization. The proximal thighs were also included. The patient's blood glucose level was 124 mg/dL (allowable range: 50-180 mg/dL). RADIOPHARMACEUTICAL: 14.994 mCi 18F-FDG (Fluorodeoxyglucose F18) IV was injected into he patient. RADIATION DOSE SUMMARY: Effective Dose: Approximately 7 mSv for a standard whole-body PET scan Organ Doses: Varies by organ, with higher doses typically to the bladder, liver, and brain COMPARISON: COMPARISON FROM CT, PET OR OTHER PERTINENT EXAMS: PET-CT of 01/12/2025.. FINDINGS: Physiologic uptake: There may be expected metabolic uptake within the brain, tongue and floor of the mouth and larynx/vocal cords, heart, odilia (many normal individuals have hilar uptake in less than 3 nodes with mildly avid hilar nodes less than 2.7 SUV), liver and spleen, system, and GI tract and symmetric muscle uptake. FDG AVID AND NON-AVID LESIONS. Reported avid SUV values (g/mL*) are maximum SUV. NECK: There are no significant neck abnormalities. CHEST: Chest wall- Bilateral breast prostheses are again seen. In the medial right breast, essentially stable uptake is seen of the mass at that location, with SUV max of 2.5 (versus 2.5 on the prior study of 01/12/2025. This is concerning for worsening malignancy. Stable areas of uptake in the left breast are seen. Axilla- There are no significant axillary abnormalities. Lung parenchyma- There are no significant lung parenchyma abnormalities. Mediastinum- There are no significant hilar or mediastinal adenopathy. Pleura- There are no significant pleural abnormalities. Moderate coronary artery calcification is again seen. ABDOMEN: Stomach- No significant abnormalities. Liver- No significant abnormalities. Spleen- No significant abnormalities. Pancrease- No significant abnormalities. Kidneys- No significant abnormalities. Bowel- Normal bowel activity. Spine- No significant abnormalities. PELVIS: Bilateral pelvic surgical clips are noted. Bowel- Normal physiologic bowel activity is identified. Masses- There are no pelvic masses. Bones- Marked interval improvement of bilateral axial and appendicular skeletal uptake is now noted. New or worsened process is seen. PET/PET/CT Tumor Base -Thigh Subs IMPRESSION: FDG avid- Stable metabolic activity both breasts noted, including the medial right breast mass Marked interval improvement in axial and appendicular skeletal uptake is now se en throughout. Other: Bilateral breast prostheses. Bilateral pelvic surgical clips. Please note the low-dose CT scan was performed to facilitate PET image reconstr uction and anatomic localization and does not replace a diagnostic CT. Any diagnostic CT requested and performed at the time of the PET will be reported separately. Reading Location: [place] [id number]
== END | disposition home or self-care (01) ==
PROVIDERS: PCP Family Medicine; Referring Provider Internal Medicine Hematology & Oncology; Visit Provider Internal Medicine Hematology & Oncology
DX: C50.812 Malignant neoplasm of overlapping sites of left female breast (principal); C79.2 Secondary malignant neoplasm of skin; C77.3 Secondary and unspecified malignant neoplasm of axilla and upper limb lymph nodes; Z17.1 Estrogen receptor negative status [ER-]; Z17.421 Hormone receptor negative with human epidermal growth factor receptor 2 negative status
CPT/HCPCS: 78815; A9552